=== PATIENT | male | born 1975 | race Hispanic/Latino ===

== ENCOUNTER 2017-12-17 02:51 | Emergency (ER) | payer BC, OTHER ==
[2017-12-17] MEDS ORDERED: SODIUM CHLORIDE 0.9% 1000ML 1,000 ML IV ONE (03:02)
[2017-12-17 03:13] LABS: BASOPHILS % (AUTO) 0.8 % (0.0-5.0); EOSINOPHILS % (AUTO) 3.4 % (0.0-8.0); HEMATOCRIT 47.1 % (42-54); MEAN CORPUSCULAR HEMOGLOBIN 29.2 pg (27.0-33.0); MEAN CORPUSCULAR HGB CONC 35.1 g/dL (32.0-36.0); MEAN CORPUSCULAR VOLUME 83.3 fL (79-99); MONOCYTES % (AUTO) 7.6 % (3.0-13.0); NEUTROPHILS % (AUTO) 65.2 % (40.0-77.0); NUCLEATED RED BLOOD CELLS 0.1 % (0.0-0.19); PLATELET COUNT (AUTO) 203 K/uL (130-400); RED BLOOD CELL COUNT(AUTO) 5.66 MIL/uL (4.50-6.20); RED CELL DISTRIBUTION WIDTH 12.6 % (11.0-15.5); WHITE BLOOD COUNT (AUTO) 9.9 K/uL (4.8-10.8)
[2017-12-17 03:25] LABS: BILIRUBIN,TOTAL 0.3 mg/dL (0.2-1.0); CREATININE 0.9 mg/dL (0.5-1.5); POTASSIUM 3.9 mmol/L (3.5-5.1); TOTAL PROTEIN, SERUM 8.4 g/dL (6.0-8.3)
[2017-12-17] MEDS ORDERED: LIDOCAINE HCL 2% VISCOUS 15 ML UDCUP ONE (03:53)
[2017-12-17] MEDS ORDERED: MAG HYDROX/AL HYDROX/SIMETH ES 30 ML SUSP UDCUP ONE (03:53)
[2017-12-17] MEDS ORDERED: ACETAMINOPHEN-CODEINE ELIXIR 5 ML UDCUP ONE (03:54)
== END 2017-12-17 04:13 | disposition home or self-care (01) ==
LOC: EDH 02:51
DX: T67.5XXA Heat exhaustion, unspecified, initial encounter (principal); K21.9 Gastro-esophageal reflux disease without esophagitis; K29.70 Gastritis, unspecified, without bleeding; E11.9 Type 2 diabetes mellitus without complications; I10 Essential (primary) hypertension; Z88.0 Allergy status to penicillin; Z79.4 Long term (current) use of insulin; X58.XXXA Exposure to other specified factors, initial encounter; Y93.89 Activity, other specified; Y92.89 Other specified places as the place of occurrence of the external cause; Y99.8 Other external cause status
CPT/HCPCS: 36415; 80053; 84484; 85025; 93005; 96360; 99285; J7030

== ENCOUNTER 2024-04-05 16:20 | Inpatient (IN) | payer OTHER ==
[~2024-04-05] VITALS: Ht 160 cm; Wt 98.0 kg
[2024-04-05] MEDS: LABETALOL 20MG SYG IV ONE (16:49)
[2024-04-05] MEDS: ATORVASTATIN 40 MG TABLET PO ONE (16:50)
[2024-04-05] MEDS: NITROGLYCERIN 0.4 MG SL TAB SL PRN (16:50)
[2024-04-05] MEDS: ASPIRIN 325MG TAB PO ONE (16:50)
[2024-04-05 17:04] LABS: BASOPHILS # (AUTO) 0.04 K/uL (0.00-0.20); BASOPHILS % (AUTO) 0.7 % (0.0-5.0); EOSINOPHILS # (AUTO) 0.51 K/uL (0.00-0.70); EOSINOPHILS % (AUTO) 8.8 % (0.0-8.0); HEMATOCRIT 32.5 % (42-54); IMMATURE GRANULOCYTE ABSOLUTE 0.02 K/uL (0-1); LYMPHOCYTES % (AUTO) 17.6 % (21.0-51.0); MEAN CORPUSCULAR HEMOGLOBIN 28.3 pg (27.0-33.0); MEAN CORPUSCULAR HGB CONC 34.5 g/dL (32.0-36.0); MEAN CORPUSCULAR VOLUME 82.1 fL (79-99); MONOCYTES # (AUTO) 0.4 K/uL (0.1-1.0); MONOCYTES % (AUTO) 6.4 % (3.0-13.0); NEUTROPHILS # (AUTO) 3.8 K/uL (1.8-7.7); NEUTROPHILS % (AUTO) 66.2 % (40.0-77.0); PLATELET COUNT (AUTO) 254 K/uL (130-400); RED BLOOD CELL COUNT(AUTO) 3.96 MIL/uL (4.50-6.20); RED CELL DISTRIBUTION WIDTH 13.1 % (11.0-15.5); WHITE BLOOD COUNT (AUTO) 5.8 K/uL (4.8-10.8)
[2024-04-05 17:12] LABS: CREATININE 3.7 mg/dL (0.5-1.3)
[2024-04-05 17:17] LABS: INR <= 0.93 (0.85-1.15)
[2024-04-05 17:18] LABS: PARTIAL THROMBOPLASTIN TIME 25.9 SEC (26.3-35.5)
[2024-04-05 19:28] LABS: AMPHET/METH SCREEN,URINE NEGATIVE (NEGATIVE); BARBITURATE SCREEN, URINE NEGATIVE (NEGATIVE); BENZODIAZEPINES SCREEN,URINE NEGATIVE (NEGATIVE); CANNABINOID SCREEN,URINE NEGATIVE (NEGATIVE); COCAINE SCREEN,URINE NEGATIVE (NEGATIVE); OPIATE SCREEN,URINE NEGATIVE (NEGATIVE); PHENCYCLIDINE SCREEN,URINE NEGATIVE (NEGATIVE)
[2024-04-05] MEDS: NITROGLYCERIN 50MG/D5W 250ML 250 BOT IV SCH (19:55)
[2024-04-05] MEDS ORDERED: GLUCAGON 1MG KIT 1 MG ML IM PRN (20:00)
[2024-04-05] MEDS ORDERED: NITROGLYCERIN 0.4 MG SL TAB SL PRN (20:00)
[2024-04-05] MEDS ORDERED: DEXTROSE 50%-WATER 50 ML DISP.SYRIN IV PRN (20:00)
[2024-04-05] MEDS: LABETALOL 20MG SYG IV PRN (20:35)
[2024-04-05] MEDS: MORPHINE 2 MG SYG IV PRN (20:47)
[2024-04-05] MEDS: HEPARIN 5,000 UNIT VIAL SQ SCH (20:47)
[2024-04-05] MEDS: 0.9%NACL 1000ML 1,000 ML IV SCH (21:01)
[2024-04-05] MEDS: FAMOTIDINE 20MG TAB PO SCH (21:02)
[2024-04-05] MEDS: INSULIN HUMULIN R 100 UNIT/ML 3ML SQ SCH (21:10)
[2024-04-05] MEDS: HYDRALAZINE 20MG/ML VIAL IV PRN (22:30)
[2024-04-05] MEDS: GABAPENTIN 300 MG CAPSULE PO SCH (23:45)
[2024-04-06] VITALS (8 sets, daily range): BP systolic 136–149; BP diastolic 77–93; PULSE 92–100; RESP 18; O2SAT 98–99
[2024-04-06 03:48] LABS: BASOPHILS # (AUTO) 0.03 K/uL (0.00-0.20); BASOPHILS % (AUTO) 0.4 % (0.0-5.0); EOSINOPHILS # (AUTO) 0.52 K/uL (0.00-0.70); EOSINOPHILS % (AUTO) 6.3 % (0.0-8.0); HEMATOCRIT 32.7 % (42-54); IMMATURE GRANULOCYTE ABSOLUTE 0.02 K/uL (0-1); LYMPHOCYTES # (AUTO) 1.3 K/uL (1.0-4.8); MEAN CORPUSCULAR HEMOGLOBIN 27.8 pg (27.0-33.0); MEAN CORPUSCULAR VOLUME 84.3 fL (79-99); MONOCYTES # (AUTO) 0.6 K/uL (0.1-1.0); MONOCYTES % (AUTO) 6.7 % (3.0-13.0); NEUTROPHILS # (AUTO) 5.9 K/uL (1.8-7.7); NEUTROPHILS % (AUTO) 70.4 % (40.0-77.0); PLATELET COUNT (AUTO) 269 K/uL (130-400); RED BLOOD CELL COUNT(AUTO) 3.88 MIL/uL (4.50-6.20); RED CELL DISTRIBUTION WIDTH 13.2 % (11.0-15.5); WHITE BLOOD COUNT (AUTO) 8.3 K/uL (4.8-10.8)
[2024-04-06 04:10] LABS: ALBUMIN 2.7 g/dL (3.5-5.0); BILIRUBIN,TOTAL 0.2 mg/dL (0.2-1.0); CREATININE 3.9 mg/dL (0.5-1.3); MAGNESIUM 1.4 mg/dL (1.80-2.40); POTASSIUM 4.8 mmol/L (3.5-5.1); THYROID STIMULATING HORMONE 3.35 uIU/mL (0.36-3.74); TOTAL PROTEIN, SERUM 6.5 g/dL (6.0-8.3)
[2024-04-06 05:07] LABS: ERYTHROCYTE SEDIMENTATION RATE 75 MM/HR (0-15)
[2024-04-06] MEDS ORDERED: GABA300C PO (05:16)
[2024-04-06] MEDS ORDERED: AEC81 PO (05:16)
[2024-04-06] MEDS ORDERED: METO-408 PO (05:16)
[2024-04-06] MEDS ORDERED: OLME40TA18 PO (05:16)
[2024-04-06] MEDS: MAGNESIUM OXIDE 400 MG TABLET PO SCH (05:39)
[2024-04-06] MEDS ORDERED: INSU3INS5 SQ ×2 (06:16→06:17)
[2024-04-06] MEDS ORDERED: NIFEDIPINE 10 MG CAP PO SCH (09:00)
[2024-04-06] MEDS: NIFEDIPINE ER 30 MG TAB PO SCH (09:31)
[2024-04-06] MEDS: ASPIRIN 81 MG EC TAB PO SCH (09:31)
[2024-04-06] MEDS: CARVEDILOL 6.25 MG TABLET PO SCH (09:31)
[2024-04-06] MEDS: INSULIN HUMULIN R 100 UNIT/ML 3ML SQ SCH (17:39)
[2024-04-06] MEDS: GABAPENTIN 300 MG CAPSULE PO SCH (20:20)
[2024-04-06] MEDS: ATORVASTATIN 40 MG TABLET PO SCH (21:06)
[2024-04-06] MEDS: INSULIN GLARGINE 100 UNITS/ML 10 ML VIAL SQ SCH (21:06)
[2024-04-07] VITALS (8 sets, daily range): BP systolic 131–153; BP diastolic 72–89; PULSE 82–98; RESP 18–20; O2SAT 98
[2024-04-07 03:32] LABS: BASOPHILS # (AUTO) 0.04 K/uL (0.00-0.20); BASOPHILS % (AUTO) 0.7 % (0.0-5.0); EOSINOPHILS # (AUTO) 0.45 K/uL (0.00-0.70); EOSINOPHILS % (AUTO) 8.2 % (0.0-8.0); HEMATOCRIT 29.6 % (42-54); IMMATURE GRANULOCYTE ABSOLUTE 0.03 K/uL (0-1); LYMPHOCYTES # (AUTO) 1.3 K/uL (1.0-4.8); LYMPHOCYTES % (AUTO) 23.2 % (21.0-51.0); MEAN CORPUSCULAR HEMOGLOBIN 28.3 pg (27.0-33.0); MEAN CORPUSCULAR HGB CONC 33.1 g/dL (32.0-36.0); MEAN CORPUSCULAR VOLUME 85.5 fL (79-99); MONOCYTES # (AUTO) 0.5 K/uL (0.1-1.0); MONOCYTES % (AUTO) 9.3 % (3.0-13.0); NEUTROPHILS # (AUTO) 3.2 K/uL (1.8-7.7); NEUTROPHILS % (AUTO) 58.1 % (40.0-77.0); PLATELET COUNT (AUTO) 239 K/uL (130-400); RED BLOOD CELL COUNT(AUTO) 3.46 MIL/uL (4.50-6.20); RED CELL DISTRIBUTION WIDTH 13.2 % (11.0-15.5); WHITE BLOOD COUNT (AUTO) 5.5 K/uL (4.8-10.8)
[2024-04-07 03:49] LABS: MAGNESIUM 1.5 mg/dL (1.80-2.40); PHOSPHORUS 4.6 mg/dL (2.5-4.9); POTASSIUM 4.5 mmol/L (3.5-5.1)
[2024-04-07] MEDS ORDERED: METOPROLOL SUCCINATE 25 MG TAB.SR.24H PO SCH (09:00)
[2024-04-07] MEDS: MAGNESIUM 2GM PREMIX 50ML 50 ML IV PRN (11:07)
[2024-04-07] MEDS: REGADENOSON 0.4 MG/5 ML PF SYG IVP SCH (16:31)
[2024-04-08 00:04] VITALS: BP 151/94; PULSE 104; RESP 20
[2024-04-08 03:27] LABS: BASOPHILS # (AUTO) 0.03 K/uL (0.00-0.20); BASOPHILS % (AUTO) 0.6 % (0.0-5.0); EOSINOPHILS % (AUTO) 7.4 % (0.0-8.0); HEMATOCRIT 28.3 % (42-54); IMMATURE GRANULOCYTE ABSOLUTE 0.02 K/uL (0-1); LYMPHOCYTES # (AUTO) 1.4 K/uL (1.0-4.8); LYMPHOCYTES % (AUTO) 25.4 % (21.0-51.0); MEAN CORPUSCULAR HEMOGLOBIN 28.1 pg (27.0-33.0); MEAN CORPUSCULAR HGB CONC 33.9 g/dL (32.0-36.0); MEAN CORPUSCULAR VOLUME 82.7 fL (79-99); MONOCYTES # (AUTO) 0.4 K/uL (0.1-1.0); MONOCYTES % (AUTO) 7.5 % (3.0-13.0); NEUTROPHILS # (AUTO) 3.2 K/uL (1.8-7.7); NEUTROPHILS % (AUTO) 58.7 % (40.0-77.0); PLATELET COUNT (AUTO) 235 K/uL (130-400); RED BLOOD CELL COUNT(AUTO) 3.42 MIL/uL (4.50-6.20); RED CELL DISTRIBUTION WIDTH 12.9 % (11.0-15.5); WHITE BLOOD COUNT (AUTO) 5.4 K/uL (4.8-10.8)
[2024-04-08 03:45] LABS: % IRON SATURATION 32.5 % (30-44)
[2024-04-08 04:04] LABS: ALBUMIN 2.4 g/dL (3.5-5.0); BILIRUBIN,TOTAL 0.2 mg/dL (0.2-1.0); MAGNESIUM 1.8 mg/dL (1.80-2.40); POTASSIUM 4.3 mmol/L (3.5-5.1); TOTAL PROTEIN, SERUM 5.8 g/dL (6.0-8.3); URIC ACID 7.5 mg/dL (2.6-7.2)
[2024-04-08 04:23] VITALS: BP 148/83; PULSE 90; RESP 20
[2024-04-08 07:35] VITALS: O2SAT 98
[2024-04-08 08:34] VITALS: BP 145/56; PULSE 87; RESP 18
[2024-04-08 12:37] VITALS: BP 135/79; PULSE 87; RESP 18
[2024-04-08] MEDS: ISOSORBIDE MONO 30MG SR TAB PO ONE (14:57)
[2024-04-08] MEDS ORDERED: ATOR40TA69 PO (15:10)
[2024-04-08] MEDS ORDERED: NIFE-40 PO (15:10)
[2024-04-08] MEDS ORDERED: CARV6.2579 PO (15:10)
[2024-04-08] MEDS ORDERED: Isosorbide Mono 30MG Sr Tab PO (15:10)
[2024-04-08] MEDS ORDERED: ISOS30TA92 PO (15:11)
[2024-04-08] MEDS ORDERED: NITR0.4T50 SL (15:11)
[2024-04-09] MEDS ORDERED: ISOSORBIDE MONO 30MG SR TAB PO SCH (09:00)
== END 2024-04-08 16:40 | disposition home or self-care (01) | DRG 305 ==
LOC: EDH 16:20 → EDHIP 19:36 → 2DH 04-06 02:26
PROVIDERS: ADMIT Internal Medicine; ATTEND Internal Medicine
PROC: 4A02XM4 Measurement of Cardiac Total Activity, External Approach (ICD-10-PCS; principal; 2024-04-06)
PROC: 3E033HZ Introduction of Radioactive Substance into Peripheral Vein, Percutaneous Approach (ICD-10-PCS; 2024-04-06)
DX: I16.1 Hypertensive emergency (principal); I25.110 Atherosclerotic heart disease of native coronary artery with unstable angina pectoris; N17.9 Acute kidney failure, unspecified; N18.5 Chronic kidney disease, stage 5; I13.11 Hypertensive heart and chronic kidney disease without heart failure, with stage 5 chronic kidney disease, or end stage renal disease; D64.9 Anemia, unspecified; I95.9 Hypotension, unspecified; E11.65 Type 2 diabetes mellitus with hyperglycemia; E11.22 Type 2 diabetes mellitus with diabetic chronic kidney disease; E66.01 Morbid (severe) obesity due to excess calories; Z79.82 Long term (current) use of aspirin; Z79.899 Other long term (current) drug therapy; Z68.38 Body mass index [BMI] 38.0-38.9, adult
CPT/HCPCS: 36415; 71045; 76770; 78452; 80048; 80053; 80061; 80305; 82550; 82728; 82948; 83036; 83540; 83550; 83735; 83880; 84100; 84443; 84484; 84550; 85025; 85610; 85651; 85730; 93005; 93017; 93306; 96374; A9500; G0378; J0360; J1644; J1815; J2270; J2785; J3475

== ENCOUNTER 2024-09-21 16:58 | Inpatient (IN) | payer OTHER ==
[~2024-09-21] VITALS: Ht 160 cm; Wt 100.4 kg
[~2024-09-21 16:58] MED LIST: AEC81 PO; ATOR40TA69 PO; CARV6.2579 PO; GABA300C PO; INSU3INS5 SQ; ISOS30TA92 PO; Isosorbide Mono 30MG Sr Tab PO; NIFE-40 PO; NITR0.4T50 SL; OLME40TA18 PO
--- NOTE | 2024-09-21 17:28 | ERN ---
ED Note History of Present Illness Stated Complaint: VOMITTING,COUGHING,CHEST PAINS Chief Complaint: Congestion Time Seen by MD: 17:24 Time Seen by Midlevel: 17:25 Dictation: Mr. Pacheco is a 49-year-old gentleman with history of type 2 diabetes, hypert ension, hyperlipidemia, CKD, and obesity who presented to the emergency department this evening for evaluation of cough. He reports 5 days of fatigue, general weakness, cough, and anorexia. Over the past 48 hours symptoms have worsened with chest pain with cough, hemoptysis, shortness of breath, and fever. He states he has not been monitoring his blood sugars because he is not eating. He denies having palpitations, edema, abdominal pain, nausea, vomiting, diarrhea, dysuria, headache, or dizziness. PCP: Dr. Arauz in [facility]- Dr. Gonzales Allergies: Coded Allergies: No Known Allergies (Unverified Allergy, Unknown, 03/27/22) Home Meds Active Scripts Nitroglycerin (Nitroglycerin) 0.4 Mg Tab.subl, 0.4 MG SL [id number] PRN for chest pain, #30 TAB.SL 1 Refill Prov:SHANNAN BALTAZAR MD 04/08/24 Isosorbide Mononitrate (Isosorbide Mononitrate ER) 30 Mg Tab.er.24h, 30 MG PO DAILY for 30 Days, #30 TAB 1 Refill Prov:SHANNAN BALTAZAR MD 04/08/24 Nifedipine (Nifedipine ER) 30 Mg Tab.er.24, 60 MG PO DAILY for 30 Days, #30 TAB 1 Refill Prov:SHANNAN BALTAZAR MD 04/08/24 [Isosorbide Barber 30MG Sr Tab] 30 MG TAB.ER.24H No Conflict Check, 30 MG PO DAILY for 30 Days, #30 1 Refill Prov:SHANNAN BALTAZAR MD 04/08/24 Carvedilol (Coreg) 6.25 Mg Tablet, 6.25 MG PO BID for 30 Days, #60 TAB 1 Refill Prov:SHANNAN BALTAZAR MD 04/08/24 Atorvastatin Calcium (LIPITOR) 40 Mg Tablet, 40 MG PO HS for 30 Days, #30 TAB 1 Refill Prov:SHANNAN BALTAZAR MD 04/08/24 Reported Medications Insuln Asp Prt/Insulin Aspart (Novolog Mix 70-30 Flexpen Syrn) 100 Unit/Ml (70- 30) Insuln.pen, 30 UNITS SQ ACDINNER, SYRINGE 04/06/24 Insuln Asp Prt/Insulin Aspart (Novolog Mix 70-30 Flexpen Syrn) 100 Unit/Ml (70- 30) Insuln.pen, 60 UNITS SQ ACBKFST, SYRINGE 04/06/24 Aspirin (ASPIRIN 81 MG ECTAB) 81 Mg Ectab, 81 MG PO HS, TAB.EC 04/06/24 Gabapentin (Neurontin) 300 Mg Capsule, 300 MG PO TID, CAP 04/06/24 Olmesartan Medoxomil (Olmesartan Medoxomil) 40 Mg Tablet, 40 MG PO DAILY, TAB 04/06/24 Past Medical History Past Medical History: Diabetes-Type II, High Cholesterol, Hypertension, Renal Disese Surgical History: Other (Eye surgery) PSYCH History: no pertinent psych hx Family History: CAD, DM Social History: Negative, Lives with family RN Note Reviewed/Agreed w/PFSH: Yes Review of System Dictation REVIEW OF SYSTEMS: CONSTITUTIONAL: Patient denies sweats and weight changes. Reports fever, chills, fatigue, general weakness EYES: Patient denies any visual symptoms. EARS, NOSE, AND THROAT: No difficulties with hearing. No symptoms of rhinitis or sore throat. CARDIOVASCULAR: Patient denies chest pains, palpitations, orthopnea and paroxysmal nocturnal dyspnea. RESPIRATORY: Reports congestion, painful cough, and blood-tinged sputum. Reports shortness of breath GI: No nausea, vomiting, diarrhea, constipation, abdominal pain, hematochezia or melena. Reports very poor appetite : No urinary hesitancy or dribbling. No nocturia or urinary frequency. No abnormal urethral discharge. MUSCULOSKELETAL: Reports body aches NEUROLOGIC: No chronic headaches, no seizures. Patient denies numbness, tingling or weakness. PSYCHIATRIC: Patient denies problems with mood disturbance. No problems with anxiety. ENDOCRINE: No excessive urination or excessive thirst. States he has not been monitoring his blood glucose readings because he is not eating DERMATOLOGIC: Patient denies any rashes or skin changes. Initial Vital Sign VS Vital Signs Date Time Temp Pulse Resp B/P (MAP) Pulse Ox O2 Delivery O2 Flow Rate FiO2 09/21/24 17:06 99.3 114 18 148/81 91 Room Air 09/21/24 18:20 0 21 Physical Exam Dictation Vital signs: Reviewed. Temp 99 Constitutional: No acute distress. Ill-appearing. Accompanied by significant other Head/Face: Normocephalic, atraumatic. Eyes: Periorbital areas with no swelling, redness, or edema. Lids and lashes are normal. Conjunctival injection is absent. Sclera anicteric. Pupils equal, round, reactive to light. ENT: Pinnas intact and no signs of trauma or erythema. Ear canals clear and no discharge. TMs no erythema. No nasal discharge or bleeding noted. Oropharynx with no exudate, redness, swelling, masses, exudates, or evidence of obstruc tion. Uvula midline. Mucous membranes moist. Neck: Trachea midline, no masses palpated, and no cervical lymphadenopathy. No swelling. Supple, full range of motion. Chest/Axilla: No crepitus, no paradoxical movement, no retractions. Left chest with tenderness upon palpation. Cardiovascular: Regular rate, regular rhythm, no murmur, no gallops. Symmetric pulses. No peripheral edema. Normotensive Respiratory: Tachypneic; respiratory rate 24. Lung sounds with crackles to left lower lobe. Room air SpO2 91%. Congested cough with blood-tinged sputum. Gastrointestinal: Inspection is normal. No distention is appreciated. Bowel sounds are normal. No mass or organomegaly . There is no tenderness. No rebound. No rigidity. No voluntary or involuntary guarding. No Romreo's sign. Neurological: Normal speech, gross motor function intact, gross sensory function intact. No focal weakness/Paresthesia. Musculoskeletal/Extremities: All extremities have full range of motion, no pain or tenderness on palpation. Symmetric pulses. Integumentary: Intact. Skin is flushed, warm and dry. Cap refill less than 3 seconds. Results (Laboratory/Radiology) Laboratory/Radiology Laboratory Tests Test 09/21/24 17:10 09/21/24 17:24 09/21/24 18:20 09/21/24 18:23 Influenza Type A Antigen Positive For Type A Influenza Type B Antigen Negative For Type B SARS-CoV-2, RNA, NAAT NEGATIVE SARS CoV-2 Group A Streptococcus Rapid negative (NEGATIVE) White Blood Count 11.0 K/uL (4.8-10.8) H Red Blood Count 3.12 MIL/uL (4.50-6.20) L Hemoglobin 9.0 g/dL (14.0-18.0) L Hematocrit 27.0 % (42-54) L Mean Corpuscular Volume 86.5 fL (79-99) Mean Corpuscular Hemoglobin 28.8 pg (27.0-33.0) Mean Corpuscular Hemoglobin Concent 33.3 g/dL (32.0-36.0) Red Cell Distribution Width 13.2 % (11.0-15.5) Platelet Count 238 K/uL (130-400) Mean Platelet Volume 11.0 fL (7.5-10.5) H Immature Granulocyte % (Auto) 0.4 % (0-1) Neutrophils (%) (Auto) 88.0 % (40.0-77.0) H Lymphocytes (%) (Auto) 6.0 % (21.0-51.0) L Monocytes (%) (Auto) 5.3 % (3.0-13.0) Eosinophils (%) (Auto) 0.0 % (0.0-8.0) Basophils (%) (Auto) 0.3 % (0.0-5.0) Neutrophils # (Auto) 9.6 K/uL (1.8-7.7) H Lymphocytes # (Auto) 0.7 K/uL (1.0-4.8) L Monocytes # (Auto) 0.6 K/uL (0.1-1.0) Eosinophils # (Auto) 0.00 K/uL (0.00-0.70) Basophils # (Auto) 0.03 K/uL (0.00-0.20) Absolute Immature Granulocyte (auto 0.04 K/uL (0-1) Nucleated Red Blood Cells 0.0 % (0.0-0.19) White Cell Morphology Comment See comments Sodium Level 129 mmol/L (136-145) L Potassium Level 5.9 mmol/L (3.5-5.1) H Chloride Level 93 mmol/L (101-111) L Carbon Dioxide Level 19 mmol/L (21-32) L Blood Urea Nitrogen 88 mg/dL (7-18) *H Creatinine 8.2 mg/dL (0.5-1.3) *H Glomerular Filtration Rate Calc 7 mL/min (>90) Random Glucose 876 mg/dL (70-105) *H Lactic Acid Level 3.0 mmol/L (0.8-2.5) H 3.2 mmol/L (0.8-2.5) H Total Calcium 8.2 mg/dL (8.5-10.1) L Total Bilirubin 0.5 mg/dL (0.2-1.0) Aspartate Amino Transf (AST/SGOT) 31 U/L (10-37) Alanine Aminotransferase (ALT/SGPT) 23 U/L (12-78) Alkaline Phosphatase 85 U/L (50-136) Troponin I High Sensitivity 5531 ng/L (4-75) *H Total Protein 6.8 g/dL (6.0-8.3) Albumin 2.1 g/dL (3.5-5.0) L Whole Blood Glucose > 600 MG/DL (70-110) *H Bedside Glucose Comment Notified Nurse Activated Partial Thromboplast Time 31.0 SEC (26.3-35.5) Test 09/21/24 18:28 09/21/24 19:16 09/21/24 20:36 09/21/24 20:57 White Blood Count 11.2 K/uL (4.8-10.8) H Red Blood Count 3.16 MIL/uL (4.50-6.20) L Hemoglobin 9.0 g/dL (14.0-18.0) L Hematocrit 27.3 % (42-54) L Mean Corpuscular Volume 86.4 fL (79-99) Mean Corpuscular Hemoglobin 28.5 pg (27.0-33.0) Mean Corpuscular Hemoglobin Concent 33.0 g/dL (32.0-36.0) Red Cell Distribution Width 13.2 % (11.0-15.5) Platelet Count 230 K/uL (130-400) Mean Platelet Volume 11.3 fL (7.5-10.5) H Immature Granulocyte % (Auto) 0.4 % (0-1) Neutrophils (%) (Auto) 88.1 % (40.0-77.0) H Lymphocytes (%) (Auto) 6.3 % (21.0-51.0) L Monocytes (%) (Auto) 4.9 % (3.0-13.0) Eosinophils (%) (Auto) 0.0 % (0.0-8.0) Basophils (%) (Auto) 0.3 % (0.0-5.0) Neutrophils # (Auto) 9.8 K/uL (1.8-7.7) H Lymphocytes # (Auto) 0.7 K/uL (1.0-4.8) L Monocytes # (Auto) 0.6 K/uL (0.1-1.0) Eosinophils # (Auto) 0.00 K/uL (0.00-0.70) Basophils # (Auto) 0.03 K/uL (0.00-0.20) Absolute Immature Granulocyte (auto 0.04 K/uL (0-1) Nucleated Red Blood Cells 0.0 % (0.0-0.19) Blood Gas Specimen Type Arterial Arterial Blood pH 7.325 (7.350-7.450) Arterial Blood Partial Pressure CO2 26 mmHg (35-48) L Arterial Blood Partial Pressure O2 49.6 mmHg (83.0-108.0) Arterial Blood HCO3 13.4 mmol/L (21.0-28.0) L Arterial Blood Oxygen Saturation 80.3 % (94.0-98.0) L Arterial Blood Base Excess -11.3 mmol/L (-2.0-3.0) L Hemoglobin (Blood Gas) 9.1 g/dL (13.5-17.5) L Sodium (Blood Gas) 132 MMOL/L (136-145) L Bedside Potassium (Blood Gas) 5.7 MMOL/L (3.4-4.5) H Bedside Chloride (Blood Gas) 101 MMOL/L (98-107) Bedside Glucose (Blood Gas) MG/DL (65-95) Bedside Ionized Calcium (Blood Gas) 1.08 MMOL/L (1.15-1.33) L Bedside Lactic Acid (Blood Gas) 2.21 MMOL/L (0.36-0.75) H Blood Gas Temperature 37.0 CELSIUS (35.5-37.0) Blood Gas Vent Mode RA (ROOM AIR) FiO2 21.0 % Blood Gas Specimen Comment LR RN Whole Blood Glucose > 600 MG/DL (70-110) *H Sodium Level 131 mmol/L (136-145) L Potassium Level 5.7 mmol/L (3.5-5.1) H Chloride Level 96 mmol/L (101-111) L Carbon Dioxide Level 22 mmol/L (21-32) Blood Urea Nitrogen 87 mg/dL (7-18) *H Creatinine 7.8 mg/dL (0.5-1.3) H Glomerular Filtration Rate Calc 8 mL/min (>90) Random Glucose 755 mg/dL (70-105) *H Whole Blood Ketones Quantitative 1.2 mmol/L (0.0-0.6) H Total Calcium 8.0 mg/dL (8.5-10.1) L Magnesium Level 1.70 mg/dL (1.80-2.40) L Troponin I High Sensitivity 5716 ng/L (4-75) *H Test 09/21/24 22:06 09/21/24 22:38 09/21/24 22:55 09/21/24 23:13 Whole Blood Glucose > 600 MG/DL (70-110) *H 582 MG/DL (70-110) *H Bedside Glucose Comment Notified Nurse Lactic Acid Level 2.8 mmol/L (0.8-2.5) H Sodium Level 133 mmol/L (136-145) L Potassium Level 4.8 mmol/L (3.5-5.1) Chloride Level 97 mmol/L (101-111) L Carbon Dioxide Level 21 mmol/L (21-32) Blood Urea Nitrogen 87 mg/dL (7-18) *H Creatinine 8.1 mg/dL (0.5-1.3) *H Glomerular Filtration Rate Calc 8 mL/min (>90) Random Glucose 689 mg/dL (70-105) *H Total Calcium 8.0 mg/dL (8.5-10.1) L Magnesium Level 1.70 mg/dL (1.80-2.40) L Serum Alcohol 4 mg/dL (0-10) Test 09/22/24 00:05 09/22/24 00:26 09/22/24 00:48 09/22/24 00:59 Whole Blood Glucose 456 MG/DL (70-110) *H 355 MG/DL (70-110) H Blood Gas Specimen Type Arterial Arterial Blood pH 7.368 (7.350-7.450) Arterial Blood Partial Pressure CO2 28 mmHg (35-48) L Arterial Blood Partial Pressure O2 74.2 mmHg (83.0-108.0) L Arterial Blood HCO3 15.6 mmol/L (21.0-28.0) L Arterial Blood Oxygen Saturation 93.4 % (94.0-98.0) L Arterial Blood Base Excess -8.6 mmol/L (-2.0-3.0) L Hemoglobin (Blood Gas) 9.8 g/dL (13.5-17.5) L Sodium (Blood Gas) 137 MMOL/L (136-145) Bedside Potassium (Blood Gas) 5.0 MMOL/L (3.4-4.5) H Bedside Chloride (Blood Gas) 105 MMOL/L (98-107) Bedside Glucose (Blood Gas) 471 MG/DL (65-95) *H Bedside Ionized Calcium (Blood Gas) 1.07 MMOL/L (1.15-1.33) L Bedside Lactic Acid (Blood Gas) 3.68 MMOL/L (0.36-0.75) *H Blood Gas Temperature 37.0 CELSIUS (35.5-37.0) Blood Gas Flow-by 15.00 L/min (0.00-15.00) Blood Gas Vent Mode VENTI (ROOM AIR) FiO2 50.0 % Blood Gas Specimen Comment LR JASE RN Prothrombin Time 11.7 SEC (9.6-11.6) H Prothromb Time International Ratio 1.05 (0.85-1.15) Activated Partial Thromboplast Time 104.5 SEC (26.3-35.5) Sodium Level 135 mmol/L (136-145) L Potassium Level 5.0 mmol/L (3.5-5.1) Chloride Level 100 mmol/L (101-111) L Carbon Dioxide Level 19 mmol/L (21-32) L Blood Urea Nitrogen 89 mg/dL (7-18) *H Creatinine 8.0 mg/dL (0.5-1.3) *H Glomerular Filtration Rate Calc 8 mL/min (>90) Random Glucose 472 mg/dL (70-105) *H Hemoglobin A1c 13.8 % (4.0-6.0) H Estimated Average Glucose (eAG) 349 mg/dL (70-126) H Total Calcium 8.2 mg/dL (8.5-10.1) L Troponin I High Sensitivity 8278 ng/L (4-75) *H Test 09/22/24 01:55 09/22/24 03:03 09/22/24 04:00 09/22/24 04:03 Whole Blood Glucose 387 MG/DL (70-110) H 340 MG/DL (70-110) H 339 MG/DL (70-110) H White Blood Count 9.9 K/uL (4.8-10.8) Red Blood Count 2.91 MIL/uL (4.50-6.20) L Hemoglobin 8.3 g/dL (14.0-18.0) L Hematocrit 24.4 % (42-54) L Mean Corpuscular Volume 83.8 fL (79-99) Mean Corpuscular Hemoglobin 28.5 pg (27.0-33.0) Mean Corpuscular Hemoglobin Concent 34.0 g/dL (32.0-36.0) Red Cell Distribution Width 13.2 % (11.0-15.5) Platelet Count 248 K/uL (130-400) Mean Platelet Volume 11.2 fL (7.5-10.5) H Immature Granulocyte % (Auto) 0.4 % (0-1) Neutrophils (%) (Auto) 89.0 % (40.0-77.0) H Lymphocytes (%) (Auto) 5.7 % (21.0-51.0) L Monocytes (%) (Auto) 4.5 % (3.0-13.0) Eosinophils (%) (Auto) 0.1 % (0.0-8.0) Basophils (%) (Auto) 0.3 % (0.0-5.0) Neutrophils # (Auto) 8.8 K/uL (1.8-7.7) H Lymphocytes # (Auto) 0.6 K/uL (1.0-4.8) L Monocytes # (Auto) 0.5 K/uL (0.1-1.0) Eosinophils # (Auto) 0.01 K/uL (0.00-0.70) Basophils # (Auto) 0.03 K/uL (0.00-0.20) Absolute Immature Granulocyte (auto 0.04 K/uL (0-1) Nucleated Red Blood Cells 0.0 % (0.0-0.19) Procalcitonin 70.62 ng/mL (0.05-0.5) H Test 09/22/24 04:56 09/22/24 05:08 09/22/24 05:09 09/22/24 06:08 Sodium Level 136 mmol/L (136-145) Potassium Level 5.6 mmol/L (3.5-5.1) H Chloride Level 101 mmol/L (101-111) Carbon Dioxide Level 20 mmol/L (21-32) L Blood Urea Nitrogen 92 mg/dL (7-18) *H Creatinine 8.1 mg/dL (0.5-1.3) *H Glomerular Filtration Rate Calc 8 mL/min (>90) Random Glucose 377 mg/dL (70-105) H Lactic Acid Level 2.5 mmol/L (0.8-2.5) Total Calcium 8.0 mg/dL (8.5-10.1) L Magnesium Level 2.30 mg/dL (1.80-2.40) Total Bilirubin 0.4 mg/dL (0.2-1.0) Aspartate Amino Transf (AST/SGOT) 45 U/L (10-37) H Alanine Aminotransferase (ALT/SGPT) 25 U/L (12-78) Alkaline Phosphatase 73 U/L (50-136) Total Protein 6.8 g/dL (6.0-8.3) Albumin 1.8 g/dL (3.5-5.0) L Triglycerides Level 221 mg/dL (30-200) H Cholesterol Level 242 mg/dL (<200) #H LDL Cholesterol 149 mg/dL (0-99) H HDL Cholesterol 45 mg/dL (29-71) Blood Gas Specimen Type Arterial Arterial Blood pH 7.344 (7.350-7.450) Arterial Blood Partial Pressure CO2 31 mmHg (35-48) L Arterial Blood Partial Pressure O2 75.9 mmHg (83.0-108.0) L Arterial Blood HCO3 16.6 mmol/L (21.0-28.0) L Arterial Blood Oxygen Saturation 93.5 % (94.0-98.0) L Arterial Blood Base Excess -8.2 mmol/L (-2.0-3.0) L Hemoglobin (Blood Gas) 9.1 g/dL (13.5-17.5) L Sodium (Blood Gas) 137 MMOL/L (136-145) Bedside Potassium (Blood Gas) 5.0 MMOL/L (3.4-4.5) H Bedside Chloride (Blood Gas) 106 MMOL/L (98-107) Bedside Glucose (Blood Gas) 358 MG/DL (65-95) H Bedside Ionized Calcium (Blood Gas) 1.11 MMOL/L (1.15-1.33) L Bedside Lactic Acid (Blood Gas) 1.49 MMOL/L (0.36-0.75) H Blood Gas Temperature 37.0 CELSIUS (35.5-37.0) Blood Gas Flow-by 11.00 L/min (0.00-15.00) Blood Gas Vent Mode 11 OXI (ROOM AIR) FiO2 70.0 % Blood Gas Specimen Comment LR RN Whole Blood Glucose 361 MG/DL (70-110) H 350 MG/DL (70-110) H Test 09/22/24 06:55 09/22/24 07:56 09/22/24 09:04 09/22/24 09:13 Whole Blood Glucose 327 MG/DL (70-110) H 407 MG/DL (70-110) *H 364 MG/DL (70-110) H Prothrombin Time 10.9 SEC (9.6-11.6) Prothromb Time International Ratio 0.97 (0.85-1.15) Activated Partial Thromboplast Time 50.1 SEC (26.3-35.5) #H Sodium Level 137 mmol/L (136-145) Potassium Level 4.6 mmol/L (3.5-5.1) Chloride Level 103 mmol/L (101-111) Carbon Dioxide Level 20 mmol/L (21-32) L Blood Urea Nitrogen 93 mg/dL (7-18) *H Creatinine 7.8 mg/dL (0.5-1.3) H Glomerular Filtration Rate Calc 8 mL/min (>90) Random Glucose 399 mg/dL (70-105) H Lactic Acid Level 2.3 mmol/L (0.8-2.5) Total Calcium 7.6 mg/dL (8.5-10.1) L Troponin I High Sensitivity 6392 ng/L (4-75) *H Test 09/22/24 09:54 Whole Blood Glucose 336 MG/DL (70-110) H Labs Reviewed?: Yes EKG Comment: ECG 09/21/2024 time 6:08 p.m. ventricular rate 122, sinus tachycardia, probable left atrial enlargement, repol abnrm suggests ischemia, anterolateral, ST elevation, consider anterior injury. Anterior elevation over V2 V3 about 1 mm in diffuse depressions. STEMI activated at 6:18 p.m. Repeat ECG no STEMI or STEMI equivalent. 09/21/2024 time 6:34 p.m. ventricular rate 108, NJ 189, QRS D 94, QT 356. ED Course ED Course Orders Procedure Category Date Status Time Cbc With Differential LAB 09/21/24 Complete 17:09 Comprehensive LAB 09/21/24 Complete Metabolic Panel 17:09 Influenza Type A & B, LAB 09/21/24 Complete Rapid 17:09 Rapid (Group A Strep) LAB 09/21/24 Complete 17:09 Covid Rna Naat LAB 09/21/24 Complete 17:09 Chest 1vw RAD 09/21/24 Resulted 17:27 Troponin I High LAB 09/21/24 Complete Sensitivity 17:27 Lactic Acid LAB 09/21/24 Complete 17:27 12 Lead Ekg Tracing- EKG 09/21/24 Complete Technical 17:27 Saline Lock Iv CPOE 09/21/24 Transmitted 17:33 Ceftriaxone 1g Vial PHA 09/21/24 Complete (Rocephine 1g Inj) 18:00 Azithromycin 500mg+Ns PHA 09/21/24 Complete 250ml (Azithromyci 18:00 Promethazine PHA 09/21/24 Complete Hcl/Codeine 18:00 Blood Cult PEGGY 09/21/24 In Process 18:14 Lactic Acid LAB 09/21/24 Complete 18:14 Zosyn 3.375gm+Ns 50ml PHA 09/21/24 Complete (Zosyn 3.375gm+Ns 18:30 Insulin Regular, PHA 09/21/24 Complete Human 3ml (Humulin R 18:30 Metoprolol Tartrate PHA 09/21/24 Complete (Lopressor) 18:30 Initiate Heparin TJ 09/21/24 In Process Treatment Pro 18:19 Cbc With Differential LAB 09/21/24 Complete 18:19 Cbc With Differential LAB 09/22/24 Complete 04:00 Cbc With Differential LAB 09/25/24 Verified 04:00 Cbc With Differential LAB 09/28/24 Verified 04:00 Partial LAB 09/21/24 Complete Thromboplastin Time 18:19 Heparin 5,000 Unit PHA 09/21/24 In Process Vial (Heparin 5,000 U 19:30 Heparin 25,000 PHA 09/21/24 In Process Units/250ml D5w 19:30 Heparin Protocol CPOE 09/21/24 Transmitted Monitoring 18:19 0.9%Nacl 1000ml (Ns PHA 09/21/24 Complete 1000ml) 18:30 Ondansetron 4mg Inj PHA 09/21/24 Complete (Zofran 4mg Inj) 18:29 Oseltamivir Phosphate PHA 09/21/24 Complete (Tamiflu) 19:00 Arterial Blood Gas + RT 09/21/24 Transmitted 19:13 Arterial Blood Gas LAB 09/21/24 Complete Arterial + 19:16 Vital Signs(Adult CPOE 09/21/24 Transmitted Hospitalist) 19:11 Oxygen By Nc/Pulse Ox CPOE 09/21/24 Transmitted 19:11 Daily Weights CPOE 09/21/24 Transmitted 19:11 I&O Q Shift CPOE 09/21/24 Transmitted 19:11 Acetaminophen 325 Tab PHA 09/21/24 In Process (Tylenol 325mg Tab 19:30 Acetaminophen 325 Tab PHA 09/21/24 In Process (Tylenol 325mg Tab 19:30 Guaifenesin-Dm PHA 09/21/24 In Process 200/20mg 10ml 19:30 Ipratropium/Albuterol PHA 09/21/24 In Process Neb (Duoneb) 22:00 Pulse Ox(Continuous) RT 09/21/24 Transmitted 19:11 Nurse To Enter Home CPOE 09/21/24 Transmitted Medication 19:11 Admit Orders ADM 09/21/24 Transmitted 19:11 Condition: CPOE 09/21/24 Transmitted 19:11 Telemetry Monitoring CPOE 09/21/24 Transmitted 19:11 Activity: Bed Rest CPOE 09/21/24 Transmitted 19:11 Renal Nondialysis Diet DIET 09/22/24 Transmitted Breakfast Consistent Carb DIET 09/22/24 Transmitted Breakfast Apply Scds CPOE 09/21/24 Transmitted 19:11 Famotidine 20mg Tab PHA 09/21/24 Complete (Pepcid 20mg Tab) 19:30 Nitroglycerin 1gm PHA 09/21/24 In Process Oint (Nitroglycerin 1g 19:30 Zosyn 3.375gm+Ns 50ml PHA 09/21/24 In Process (Zosyn 3.375gm+Ns 21:00 0.9%Nacl 1000ml (Ns PHA 09/21/24 In Process 1000ml) 19:30 Oseltamivir Phosphate PHA 09/22/24 In Process (Tamiflu) 09:00 Doxycycline Hyclate PHA 09/21/24 In Process (Doxycycline Hyclate 21:00 Critcal Care Consult CONPHYSVC 09/21/24 Transmitted 19:11 Nephrology Consult CONPHYSVC 09/21/24 Transmitted 19:11 Cardiology Consult CONPHYSVC 09/21/24 Transmitted 19:11 Arterial Blood Gas RT 09/21/24 Transmitted 19:11 Ketone Blood LAB 09/21/24 Complete Quantitative 19:11 *Nursing CPOE 09/21/24 Transmitted Communication: 19:11 Troponin I High LAB 09/21/24 Complete Sensitivity 19:11 Troponin I High LAB 09/22/24 Complete Sensitivity 01:11 Troponin I High LAB 09/22/24 Complete Sensitivity 07:11 Hemoglobin A1c LAB 09/22/24 Complete 04:00 Lipid Panel LAB 09/22/24 Complete 04:00 Aspirin 81mg Ec Tab PHA 09/22/24 In Process (Aspirin 81mg Ec Tab 09:00 Lactic Acid LAB 09/22/24 Complete 04:00 Procalcitonin LAB 09/22/24 Complete 04:00 Comprehensive LAB 09/22/24 Complete Metabolic Panel 04:00 Ct Chest W/O Contrast CT 09/21/24 Resulted 19:24 Insulin Regular, PHA 09/21/24 In Process Human 3ml (Humulin R 20:00 Nurse Driven Del Cid TJ 09/21/24 In Process Removal Pro 19:57 Us Renal Sonogram US 09/21/24 Taken 19:57 Famotidine 20mg Vial PHA 09/22/24 In Process (Pepcid 20mg Vial) 09:00 Basic Metabolic Panel LAB 09/21/24 Complete 23:30 Magnesium LAB 09/21/24 Complete 23:30 Alprazolam 0.5mg PHA 09/21/24 Complete (Xanax 0.5mg) 22:00 Lactic Acid (Removed) LAB 09/21/24 Complete 22:27 Basic Metabolic Panel LAB 09/21/24 Complete 23:13 Magnesium LAB 09/21/24 Complete 23:13 Magnesium 2gm Premix PHA 09/22/24 Complete 50ml (Magnesium 2gm 00:00 Alcohol, Blood LAB 09/21/24 Complete 23:47 Drug Screen Urine LAB 09/21/24 In Process 23:47 Magnesium 2gm Premix PHA 09/21/24 Complete 50ml (Magnesium 2gm 23:49 Dka Prtcl:Restrict To CPOE 09/21/24 Transmitted Icu/Ccu 23:53 Dka Protcl:Dc All CPOE 09/21/24 Transmitted Meds/Feeding 23:53 Dka Protocol: Bmp Q4h CPOE 09/21/24 Transmitted Until 23:53 Basic Metabolic Panel LAB 09/21/24 Complete 23:53 Basic Metabolic Panel LAB 09/22/24 Complete 07:53 Basic Metabolic Panel LAB 09/22/24 Logged 11:53 Basic Metabolic Panel LAB 09/22/24 Logged 15:53 Basic Metabolic Panel LAB 09/22/24 Logged 19:53 Basic Metabolic Panel LAB 09/22/24 Logged 23:53 Basic Metabolic Panel LAB 09/23/24 Verified 03:53 Basic Metabolic Panel LAB 09/23/24 Verified 07:53 Basic Metabolic Panel LAB 09/23/24 Verified 11:53 Basic Metabolic Panel LAB 09/23/24 Verified 15:53 Basic Metabolic Panel LAB 09/23/24 Verified 19:53 Basic Metabolic Panel LAB 09/23/24 Verified 23:53 0.9%Nacl 1000ml (Ns PHA 09/22/24 In Process 1000ml) 00:00 D5w-1/2 Ns/20meq Kcl PHA 09/22/24 In Process (D5w-1/2 Ns/20meq K 00:00 Potassium Chloride PHA 09/22/24 In Process 20meq/10ml (Kcl 20meq 00:00 Magnesium 2gm Premix PHA 09/22/24 In Process 50ml (Magnesium 2gm 00:00 Insulin Regular, PHA 09/22/24 Complete Human 3ml (Humulin R 00:00 Mannitol 20% 250ml PHA 09/22/24 Complete Bag (Osmitrol 20% 250 00:00 Dka Protocol: Bs, Vs, CPOE 09/21/24 Transmitted Neuro 23:53 Dextrose 5 %-0.45 % PHA 09/22/24 In Process Nacl (D5 1/2ns) 00:00 Magnesium LAB 09/22/24 Complete 04:00 Respiratory Cult PEGGY 09/22/24 In Process W/Gram Stain 00:10 Arterial Blood Gas + RT 09/22/24 Transmitted 00:10 Methylprednisolone PHA 09/22/24 Complete Succ 125mg (Solu-Medr 00:30 Methylprednisolone PHA 09/22/24 In Process Succ 40mg (Solu-Medro 09:00 Dietary Cons For DIETOTHR 09/22/24 Transmitted Malnutrition 00:16 Atorvastatin 40mg PHA 09/22/24 In Process (Lipitor 40mg) 21:00 Mannitol 20% 500ml PHA 09/22/24 In Process Bag (Osmitrol 20% 500 00:30 Arterial Blood Gas LAB 09/22/24 Complete Arterial + 00:26 Mannitol 20% 500ml PHA 09/22/24 In Process Bag (Osmitrol 20% 500 00:30 Urinalysis LAB 09/22/24 Logged W/Microscopic 00:42 Npo Except For Meds CPOE 09/22/24 Transmitted 00:42 Npo Except Ice Chips CPOE 09/22/24 Transmitted & Meds 00:42 Pt And Ptt LAB 09/22/24 Complete 02:55 Pt And Ptt LAB 09/22/24 Complete 09:00 Arterial Blood Gas + RT 09/22/24 Transmitted 04:59 Arterial Blood Gas LAB 09/22/24 Complete Arterial + 05:08 Sodium Chloride 3% PHA 09/22/24 Complete Inh (Sodium Chloride 05:59 Lactic Acid (Removed) LAB 09/22/24 Complete 08:11 12 Lead Ekg Tracing- EKG 09/21/24 Complete Technical 18:34 Partial LAB 09/22/24 Logged Thromboplastin Time 13:00 Current Medications Medications (Trade) Dose Ordered Sig/[place] Route PRN Reason Start Time Stop Time Status Last Admin Dose Admin Azithromycin 250 ml @ 250 mls/hr Q24H IVPB 09/21/24 18:00 09/21/24 18:14 DC Ceftriaxone Sodium (ROCEphine 1G INJ) 1 gm ONCE ONCE IVPB 09/21/24 18:00 09/21/24 18:13 DC Insulin Human Regular (humuLIN R 100 UNIT/ML 3ML) 10 unit ONCE ONCE IV 09/21/24 18:30 09/21/24 18:31 DC 09/21/24 18:36 Metoprolol Tartrate (loprESSOR) 5 mg ONCE ONCE IV 09/21/24 18:30 09/21/24 18:31 DC 09/21/24 18:32 Ondansetron HCl (zoFRAN 4MG INJ) 4 mg STK-MED ONCE .ROUTE 09/21/24 18:29 09/21/24 18:29 DC 09/21/24 18:31 Oseltamivir Phosphate (Tamiflu) 75 mg ONCE ONCE PO 09/21/24 19:00 09/21/24 19:01 DC 09/21/24 18:45 Piperacillin Sod/ Tazobactam Sod (Zosyn 3.375gm+NS 50ml) 3.375 gm ONCE ONCE IVPB 09/21/24 18:30 09/21/24 18:31 DC 09/21/24 18:35 Promethazine HCl/ Codeine (Phenergan-Codeine Syrp) 10 ml ONCE ONCE PO 09/21/24 18:00 09/21/24 18:01 DC Sodium Chloride 1,000 ml @ 0 mls/hr ONCE ONCE IV 09/21/24 18:30 09/21/24 18:31 DC 09/21/24 18:37 Vital Signs Date Time Temp Pulse Resp B/P (MAP) Pulse Ox O2 Delivery O2 Flow Rate FiO2 09/22/24 10:03 104 24 N/Cannula Oximizer Hi LPM 7.0 09/22/24 10:03 104 24 09/22/24 08:00 98 N/C Oxymizer Hi LPM* 7 60 09/22/24 08:00 134 129/54 Nasal Cannula* 3 32 09/22/24 06:35 105 24 09/22/24 06:34 105 24 N/Cannula Oximizer Hi LPM 12.0 09/22/24 06:21 105 14 123/70 100 N/C Oxymizer Hi LPM* 11 N/A 09/22/24 05:14 108 22 130/86 98 N/C Oxymizer Hi LPM* 11 N/A 09/22/24 03:40 106 19 132/77 98 N/C Oxymizer Hi LPM* 11 N/A 09/22/24 02:03 106 18 122/68 100 N/C Oxymizer Hi LPM* 11 N/A 09/22/24 00:39 98.1 117 25 117/118 96 N/C Oxymizer Hi LPM* 11 N/A 09/22/24 00:35 115 20 N/Cannula Oximizer Hi LPM 11.0 09/22/24 00:05 117 18 Venti Mask 50 09/21/24 23:59 117 18 09/21/24 23:15 98.1 125 34 125/122 90 Venti Mask+ 15 50 09/21/24 23:02 122 28 N/Cannula Low lpm 6.0 44 09/21/24 22:24 98.1 123 28 149/77 91 Nasal Cannula* 4 36 09/21/24 21:20 98.1 111 28 135/73 91 Nasal Cannula* 4 36 09/21/24 19:39 113 28 N/Cannula Low lpm 6.0 44 09/21/24 19:36 98.1 111 29 130/68 91 Nasal Cannula* 4 36 09/21/24 19:27 98.1 108 30 130/68 91 Nasal Cannula* 4 36 09/21/24 18:32 132 160/99 09/21/24 18:20 98.6 28 20 154/83 Room Air* 0 21 09/21/24 17:06 99.3 114 18 148/81 91 Room Air HEART Score Response (Comments) Value History: Low suspicion (0) 0 EKG: Repolarization changes 1 Age: 45-65yrs (+1) 1 Risk Factors: 1-2 risk factors (+1) 1 Initial Troponin: >3x Normal Limit (+2) 2 HEART Score Risk: Mod Risk for MACE (4-6) Total 5 Medical Decision Making MDM MDM: Differential diagnosis: NSTEMI, HHS, sepsis 1815- Dr. Mclean Cardiology consult 1835- Hospitalist, accepts patient for admission Rationale: Tests considered and ordered secondary to shared decision making include: labs, ECG and radiology Risk of complication and/or morbidity or mortality of patient management: None Medications-Per medication reconciliation Need for hospitalization: Patient does meet criteria for hospitalization. Need for emergency major/minor surgery: No There are no social concerns with this patient. I independently interpreted the test that were performed, results were reviewed by me and considered findings on radiology if ordered. Medical management and examination interpretation discussions were had by me with other qualified healthcare professionals as indicated for the patient's care. I attest that I performed a sepsis focused exam including review of vital signs, cardiopulmonary exam, capillary refill evaluation, peripheral pulse evaluation and Skin exam. Spoke to real estate paralegal on-call who reviewed case with me and agrees that this is most likely secondary to demand induced ischemia, we have agreed that we will give IV Lopressor and repeat serial ECGs to check for acute elevation, in the meantime we will treat for demand induced ischemia and the underlying condition which patient is presenting as HHS with sepsis, broad-spectrum antibiotics to cover Pseudomonas and insulin IV fluids and unfractionated heparin drip ordered and patient will be admitted to ICU. Repeat ECG after IV beta halima shows improvement of morphology no STEMI or STEMI equivalent, against spoke to cardiology team who agrees with medical management in the ICU and plan for early invasive strategy but currently does not meet criteria for a STEMI. Critical Care Note Critical Time: other (Total critical care time was 33 minutes. Excluding time for procedures. Management of critically ill patient with concern for acute decompensation. Management included interpretation of laboratory values and imaging, hemodynamics, time for consultation with consultants and admitting physician.) DX & DISP Disposition: Inpatient Decision to Admit Date: Sep 21, 2024 Decision to Admit Time: 18:36 Departure Impression: Primary Impression: ACS (acute coronary syndrome) Additional Impressions: Hyperosmolar hyperglycemic state (HHS), Influenza, Acute renal failure Condition: Stable Referrals: SELF,REFERRAL (PCP) I performed the substantive portion of the visit. I have reviewed and personally made and approve the management plan that is documented in the notes by myself or the GIAN. I acknowledge full responsibility for the patient's management plan. HEBER CABRERA NP Sep 21, 2024 17:28 AGATHA MELÉNDEZ MD Sep 21, 2024 18:15
[2024-09-21 17:29] LABS: RAPID GROUP A STREP negative (NEGATIVE)
[2024-09-21 17:32] LABS: BASOPHILS # (AUTO) 0.03 K/uL (0.00-0.20); BASOPHILS % (AUTO) 0.3 % (0.0-5.0); IMMATURE GRANULOCYTE ABSOLUTE 0.04 K/uL (0-1); LYMPHOCYTES # (AUTO) 0.7 K/uL (1.0-4.8); MEAN CORPUSCULAR HEMOGLOBIN 28.8 pg (27.0-33.0); MEAN CORPUSCULAR HGB CONC 33.3 g/dL (32.0-36.0); MEAN CORPUSCULAR VOLUME 86.5 fL (79-99); MONOCYTES # (AUTO) 0.6 K/uL (0.1-1.0); MONOCYTES % (AUTO) 5.3 % (3.0-13.0); NEUTROPHILS # (AUTO) 9.6 K/uL (1.8-7.7); PLATELET COUNT (AUTO) 238 K/uL (130-400); RED BLOOD CELL COUNT(AUTO) 3.12 MIL/uL (4.50-6.20); RED CELL DISTRIBUTION WIDTH 13.2 % (11.0-15.5)
[2024-09-21 17:32] LABS: SARS-CoV-2, RNA, NAAT NEGATIVE SARS CoV-2 (NEGATIVE)
[2024-09-21 17:37] LABS: INFLUENZA TYPE B Negative For Type B (NEGATIVE)
[2024-09-21 17:50] LABS: ALBUMIN 2.1 g/dL (3.5-5.0); BILIRUBIN,TOTAL 0.5 mg/dL (0.2-1.0); POTASSIUM 5.9 mmol/L (3.5-5.1); TOTAL PROTEIN, SERUM 6.8 g/dL (6.0-8.3)
[2024-09-21] MEDS ORDERED: cefTRIAXone 1G VIAL IVPB ONE (18:00)
[2024-09-21] MEDS ORDERED: AZITHROMYCIN 500MG+NS 250ML 250 ML IVPB SCH (18:00)
[2024-09-21 18:01] LABS: CREATININE 8.2 mg/dL (0.5-1.3)
--- NOTE | 2024-09-21 18:16 | NUR ---
PER DR [facility] TO HOLD OFF ON ONLINE MARKETING ANALYST.
[2024-09-21 18:30] LABS: INFLUENZA TYPE A Positive For Type A (NEGATIVE)
[2024-09-21] MEDS: ondanSETRON 4MG INJ ONE (18:31)
[2024-09-21] MEDS: metoPROLOL tartRATE 1 MG/ML 5ML VIAL IV ONE (18:32)
[2024-09-21] MEDS: ZOSYN 3.375GM +NS 50ML IVPB ONE (18:35)
[2024-09-21 18:36] LABS: BASOPHILS # (AUTO) 0.03 K/uL (0.00-0.20); BASOPHILS % (AUTO) 0.3 % (0.0-5.0); HEMATOCRIT 27.3 % (42-54); IMMATURE GRANULOCYTE ABSOLUTE 0.04 K/uL (0-1); LYMPHOCYTES # (AUTO) 0.7 K/uL (1.0-4.8); LYMPHOCYTES % (AUTO) 6.3 % (21.0-51.0); MEAN CORPUSCULAR HEMOGLOBIN 28.5 pg (27.0-33.0); MEAN CORPUSCULAR VOLUME 86.4 fL (79-99); MONOCYTES # (AUTO) 0.6 K/uL (0.1-1.0); MONOCYTES % (AUTO) 4.9 % (3.0-13.0); NEUTROPHILS # (AUTO) 9.8 K/uL (1.8-7.7); NEUTROPHILS % (AUTO) 88.1 % (40.0-77.0); PLATELET COUNT (AUTO) 230 K/uL (130-400); RED BLOOD CELL COUNT(AUTO) 3.16 MIL/uL (4.50-6.20); RED CELL DISTRIBUTION WIDTH 13.2 % (11.0-15.5); WHITE BLOOD COUNT (AUTO) 11.2 K/uL (4.8-10.8)
[2024-09-21] MEDS: INSULIN humuLIN R 100 UNIT/ML 3ML IV ONE (18:36)
[2024-09-21] MEDS: 0.9%NACL 1000ML 1,000 ML IV ONE (18:37)
[2024-09-21] MEDS: PROMETHAZINE/CODEINE 6.25-10MG/5ML CUP PO ONE (18:44)
[2024-09-21] MEDS: OSELTAMIVIR PHOSPHATE 75 MG CAP PO ONE (18:45)
--- NOTE | 2024-09-21 19:04 | HMCIMG ---
PORTABLE CHEST RADIOGRAPH INDICATION: cough, shortness of breath COMPARISON: 04/05/2024 FINDINGS: Heart size is normal. The pulmonary vascularity and eder appear normal. Extensive coalescent/consolidative bilateral mid to lower lung opacities, right greater than left. No significant pleural effusion noted. No pneumothorax detected. IMPRESSION: Extensive bilateral mid to lower lung pneumonia, right greater than left.
[2024-09-21 19:18] LABS: ABG BASE EXCESS -11.3 mmol/L (-2.0-3.0); ABG HCO3 13.4 mmol/L (21.0-28.0); ABG OXYGEN SATURATION 80.3 % (94.0-98.0); ABG PCO2 26 mmHg (35-48); ABG PH 7.325 (7.350-7.450); CARBON MONOXIDE 0.5 % (0.5-1.5); DEVICE COMMENT LR RN; HHb 19.5; PO2, ARTERIAL BG 49.6 mmHg (83.0-108.0); VENT MODE, BG RA (ROOM AIR)
--- NOTE | 2024-09-21 19:27 | NUR ---
PT CARE ASSUMED AT THIS TIME
[2024-09-21] MEDS: FAMOTIDINE 20MG TAB PO SCH (19:30)
[2024-09-21] MEDS ORDERED: acetaMINOPHEN 325 MG TAB PO PRN (19:30)
[2024-09-21] MEDS ORDERED: HEParin 5,000 UNIT VIAL IV PRN (19:30)
[2024-09-21 19:39] VITALS: PULSE 113; RESP 28; O2SAT 92
[2024-09-21] MEDS: NITROGLYCERIN 1GM OINT 1 INCH/1GM TD SCH (19:43)
[2024-09-21] MEDS: 0.9%NACL 1000ML 1,000 ML IV SCH (19:45)
--- NOTE | 2024-09-21 19:45 | NUR ---
PER RT PT PLACED ON 6L NC AT THIS TIME
[2024-09-21] MEDS: HEParin 25,000 UNITS/250ML D5W 250 ML IV SCH (19:50)
--- NOTE | 2024-09-21 19:56 | NUR ---
SPOKE TO DUSTIN AT THIS TIME REGARDING MEDICATION CHANGE AND PRN MEDICATION
--- NOTE | 2024-09-21 20:09 | HP ---
[facility] HISTORY AND PHYSICAL Date of Service: Sep 21, 2024 Time of Service: 19:34 HISTORY OF PRESENT ILLNESS: This is a 49-year-old male with past medical history of CKD not on hemodialysis, diabetes, hypertension, hyperlipidemia and obesity who presents to the ED for complaints of cough and chest congestion which started last Sunday and getting worse on Sunday. Patient reports coughing up pinkish colored thick phlegm, loss of appetite and on Sunday started not eating unable to sleep, vomiting and having chest pain triggered by persistent coughing he said.Patient reports having soreness due to hard cough he said.Patient reports having sweeling on both lower extremities and started having shortness of breath and today he started having non bloody diarrhea. Neela was at bedside during my evaluation. Upon arrival to ER a STEMI alert was activated per ER MD and spoke to Cardiologi st bell person and as per report patient is possibly going to cathlab tomorrow and patient is going to be started on Heparin and Insulin drip. Seen and examined patient in the Er awake,alert and coherent,appears weak looking.Patient denies fever,palpitation ,dizziness ,sore throat and headache. Latest vital signs temperature 98.1, heart rate 108, respiration 30 blood pres sure 130/68 saturation 91% on 4 L nasal cannula. Labs: WBC 11.2, hemoglobin 9, hematocrit 27, platelet count 238, neutrophils 88. PH 7.32, CO2 26, PO2 49.6, bicarb 13, PO2 80 base excess -11.3. Sodium 129, potassium 5.9, chloride 93, CO2 19, BUN 88, creatinine 8.2, GFR seven glucose 876 , lactic acid 3.0-3.2, troponin 5531 albumin 2.1. Influenza A positive influenza B negative SARs COVID negative. Strep A negative. Chest x-ray result revealed extensive bilateral mid to lower lung pneumonia right greater than left. First ECG result revealed sinus tachycardia heart rate 121 probable left atrial enlargement repolarization abnormal suggest ischemia diffuse leads ST-elevation consider anterior injury. Second EKG result revealed sinus tachycardia repolarization abnormality suggest ischemia diffuse leads borderline ST elevation anterior leads heart rate 108. While in the ER patient received Tamiflu 75 mg p.o., 1 L NS bolus, Lopressor 5 mg IV, insulin 10 units IV, Zosyn IV, Zofran 4 mg IV and Phenergan codeine 10 mL p.o. we will admit patient in ICU for further medical management. REVIEW OF SYSTEMS CONSTITUTIONAL: Denies fevers, chills, or night sweats. No unintentional weight loss reported. NEUROLOGICAL: Denies headache, amaurosis fugax, motor weakness, sensory deficit, vertigo/spinning sensation, gait abnormalities, or tremors. ENT: No hearing loss, otalgia, otorrhea, rhinitis, rhinorrhea, hoarseness, or sore throat. CARDIOVASCULAR: Complaints of orthopnea shortness of breaths and chest pain Denies paroxysmal nocturnal dyspnea, palpitations, life-threatening arrhythmias, claudication. PULMONARY: Complaints of productive cough , pleuritic chest pain and shortness of breaths SLEEP: Complains of unable to sleep Denies morning headaches, daytime somnolence or napping. Denies waking from sleep. Denies knowledge of snoring. GASTROINTESTINAL: Complaints of loss of appetite, vomiting and diarrhea Denies any type of dysphagia to either liquids or solids. Denies nausea, vomiting, pyrosis, early satiety, abdominal pain, diarrhea, constipation, or changes in stool consistency or caliber. Denies coffee-ground emesis, hematemesis, hematochezia, or melanotic stools. GENITOURINARY: Denies frequency, urgency, nocturia, hematuria or incontinence (Storage/Irritative symptoms.) Low urinary stream, straining to void, urinary intermittency or hesitancy, splitting of the voiding stream, terminal dribbling. ENDOCRINOLOGIC: Denies polyuria, polydipsia, polyphagia or heat/cold intolerances. Patient reports not taking medications for diabetes because he was not eating. HEMATOLOGIC: Denies thrombophilia/previous clots, or coagulopathy/bleeding disorders. ONCOLOGIC: Denies personal history of malignancy. DERMATOLOGIC: Denies rashes or pruritus. PSYCHIATRIC: Denies any suicidal or homicidal ideation. Denies hallucinations. PAST MEDICAL HISTORY: Chronic kidney disease Diabetes type 2 Hypertension Hyperlipidemia Obesity PAST SURGICAL HISTORY: Left eye cataract surgery one month ago PAST SOCIAL HISTORY: Patient lives with . Patient denies alcohol tobacco and recreational drug use FAMILY HISTORY: Noncontributory Coded Allergies: No Known Allergies (Unverified Allergy, Unknown, 03/27/22) PHYSICAL EXAM GENERAL APPEARANCE: The patient is awake, alert, and oriented appears generally weak NEUROLOGICAL: Cranial nerves II-XII grossly intact. Motor is 5/5 in bilateral upper and lower extremities proximal to distal. No sensory deficits. HEENT: Face is symmetric. Pupils are equal and reactive. Extraocular movements are intact. NECK: Supple. No JVD. No thyromegaly. No submental, submandibular, pre- /postauricular, occipital or supraclavicular lymphadenopathy. CHEST: Normal chest expansion. No Telemetry. LUNGS: . Diminished lung sounds to bilateral lung james CARDIOVASCULAR: Tachycardic Regular. S1 and S2 normal. No appreciable rubs, murmurs or gallops. ABDOMEN: Round and firmed There is no rebound, voluntary guarding, or rigidity. : Deferred. No Del Cid. EXTREMITIES: Non-edematous and not cyanotic. No clubbing. Good capillary refill. SKIN: No skin breakdown. Vital Sign (Last 24 Hours) 09/21/24 19:27 Temp 98.1 Pulse 108 Resp 30 B/P (MAP) 130/68 Pulse Ox 91 O2 Delivery Nasal Cannula* O2 Flow Rate 4 FiO2 36 LABS: Laboratory: Test 09/21/24 19:16 09/21/24 18:28 09/21/24 18:23 09/21/24 18:20 Range/Units Blood Gas Specimen Type Arterial Arterial Blood pH 7.325 L 7.350-7.450 Arterial Blood Partial Pressure CO2 26 L 35-48 mmHg Arterial Blood Partial Pressure O2 49.6 *L 83.0-108.0 mmHg Arterial Blood HCO3 13.4 L 21.0-28.0 mmol/L Arterial Blood Oxygen Saturation 80.3 L 94.0-98.0 % Arterial Blood Base Excess -11.3 L -2.0-3.0 mmol/L Hemoglobin (Blood Gas) 9.1 L 13.5-17.5 g/dL Sodium (Blood Gas) 132 L 136-145 MMOL/L Bedside Potassium (Blood Gas) 5.7 H 3.4-4.5 MMOL/L Bedside Chloride (Blood Gas) 101 98-107 MMOL/L Bedside Ionized Calcium (Blood Gas) 1.08 L 1.15-1.33 MMOL/L Bedside Lactic Acid (Blood Gas) 2.21 H 0.36-0.75 MMOL/L Blood Gas Temperature 37.0 35.5-37.0 CELSIUS Blood Gas Vent Mode RA ROOM AIR FiO2 21.0 % Blood Gas Specimen Comment LR RN White Blood Count 11.2 H 4.8-10.8 K/uL Red Blood Count 3.16 L 4.50-6.20 MIL/uL Hemoglobin 9.0 L 14.0-18.0 g/dL Hematocrit 27.3 L 42-54 % Mean Corpuscular Volume 86.4 79-99 fL Mean Corpuscular Hemoglobin 28.5 27.0-33.0 pg Mean Corpuscular Hemoglobin Concent 33.0 32.0-36.0 g/dL Red Cell Distribution Width 13.2 11.0-15.5 % Platelet Count 230 130-400 K/uL Mean Platelet Volume 11.3 H 7.5-10.5 fL Immature Granulocyte % (Auto) 0.4 0-1 % Neutrophils (%) (Auto) 88.1 H 40.0-77.0 % Lymphocytes (%) (Auto) 6.3 L 21.0-51.0 % Monocytes (%) (Auto) 4.9 3.0-13.0 % Eosinophils (%) (Auto) 0.0 0.0-8.0 % Basophils (%) (Auto) 0.3 0.0-5.0 % Neutrophils # (Auto) 9.8 H 1.8-7.7 K/uL Lymphocytes # (Auto) 0.7 L 1.0-4.8 K/uL Monocytes # (Auto) 0.6 0.1-1.0 K/uL Eosinophils # (Auto) 0.00 0.00-0.70 K/uL Basophils # (Auto) 0.03 0.00-0.20 K/uL Absolute Immature Granulocyte (auto 0.04 0-1 K/uL Nucleated Red Blood Cells 0.0 0.0-0.19 % Activated Partial Thromboplast Time 31.0 26.3-35.5 SEC Lactic Acid Level 3.2 H 0.8-2.5 mmol/L Whole Blood Glucose > 600 *H 70-110 MG/DL Bedside Glucose Comment Notified Nurse Test 09/21/24 17:24 09/21/24 17:10 Range/Units White Cell Morphology Comment See comments Sodium Level 129 L 136-145 mmol/L Potassium Level 5.9 H 3.5-5.1 mmol/L Chloride Level 93 L 101-111 mmol/L Carbon Dioxide Level 19 L 21-32 mmol/L Blood Urea Nitrogen 88 *H 7-18 mg/dL Creatinine 8.2 *H 0.5-1.3 mg/dL Glomerular Filtration Rate Calc 7 >90 mL/min Random Glucose 876 *H 70-105 mg/dL Total Calcium 8.2 L 8.5-10.1 mg/dL Total Bilirubin 0.5 0.2-1.0 mg/dL Aspartate Amino Transf (AST/SGOT) 31 10-37 U/L Alanine Aminotransferase (ALT/SGPT) 23 12-78 U/L Alkaline Phosphatase 85 50-136 U/L Troponin I High Sensitivity 5531 *H 4-75 ng/L Total Protein 6.8 6.0-8.3 g/dL Albumin 2.1 L 3.5-5.0 g/dL Influenza Type A Antigen Positive For Type A *A NEGATIVE Influenza Type B Antigen Negative For Type B NEGATIVE SARS-CoV-2, RNA, NAAT NEGATIVE SARS CoV-2 NEGATIVE Group A Streptococcus Rapid negative NEGATIVE Current Medications Medications (Trade) Dose Ordered Sig/Sierra Route PRN Reason Start Time Stop Time Status Last Admin Dose Admin Acetaminophen (TYLenol 325MG TAB) 650 mg Q4H PRN PO MILD PAIN (1-3) 09/21/24 19:30 10/21/24 19:29 Acetaminophen (TYLenol 325MG TAB) 650 mg Q6H PRN PO TEMPERATURE GREATER THAN 101.5 09/21/24 19:30 10/21/24 19:29 Albuterol (DUOneb) 1 udvial [id number] IH 09/21/24 22:00 10/21/24 21:59 Aspirin (Aspirin 81mg Ec Tab) 81 mg DAILY PO 09/22/24 09:00 10/22/24 08:59 Azithromycin 250 ml @ 250 mls/hr Q24H IVPB 09/21/24 18:00 09/21/24 18:14 DC Doxycycline Hyclate (Doxycycline Hyclate) 100 mg BID PO 09/21/24 21:00 10/01/24 20:59 Famotidine (Pepcid 20mg Tab) 20 mg Q48H PO 09/21/24 19:30 10/21/24 19:29 UNV Guaifenesin/ Dextromethorphan (RobiTUSSin DM 200/20MG 10ML) 10 ml Q4H PRN PO COUGH 09/21/24 19:30 2/25/25 19:29 Heparin Sodium (Porcine) (HEParin 5,000 UNIT VIAL) *calculation based on ACTUAL B... AD PRN IV HEPARIN PROTOCOL 09/21/24 19:30 10/21/24 19:29 Heparin Sodium/ Dextrose 250 ml @ 0 mls/hr Q6H IV 09/21/24 19:30 10/21/24 19:29 Nitroglycerin (Nitroglycerin 1gm Oint) 0.5 inch Q8H TD 09/21/24 19:30 10/21/24 19:29 Oseltamivir Phosphate (Tamiflu) 75 mg DAILY PO 09/22/24 09:00 09/27/24 08:59 UNV Piperacillin Sod/ Tazobactam Sod 50 ml @ 12.5 mls/hr Q12H IV 09/21/24 21:00 10/01/24 20:59 Sodium Chloride 1,000 ml @ 100 mls/hr Q10H IV 09/21/24 19:30 10/21/24 19:29 DIAGNOSTICS / RADIOLOGY: [ ] ASSESSMENT: Hyperosmolar Hyperglycemic Syndrome POA NSTEMI POA Influenza bronchopneumonia with sepsis POA Acute Hypoxemic Respiratory Failure POA Acute on chronic renal failure with concern for ATN POA Metabolic acidosis POA Lactic acidosis POA CKD stage 4 POA Uncontrolled Diabetes POA Protein Calorie malnutrition POA PLAN: We will admit patient in ICU We will keep patient nothing by mouth We will start NS @ 100 ml / hr and re evaluate Start on Insulin drip using DKA protocol Continue Heparin drip per ACs protocol started by ER We will start patient on Doxycycline po and Zosyn renally dose We will continue Tamiflu 75mg po daily We will start on Aspirin 81 mg po daily We will start on Famotidine 20 mg IV daily for GI prophylaxis We will trend troponin Q6H x3 We will add prn medication for fever,pain,cough and nausea We will reconcile home meds once medlist available We will seek Cardiology consultation and follow recommendation We will seek critical care consultation We will seek Nephrology consultation We will obtain renal ultrasound We will obtain CT chest without contrast Will follow up U/a and cultures We will request labs in am Further orders to follow depending on above results Case discussed with attending physician and came up with above treatment and plan of care. ADVANCED CARE PLANNING 1. Which of the following were discussed? Hospice Care - No Therapeutic options - Yes Advance Directives - No Other discussions - 2. Discussed with who? Patient and Neela 3. Voluntary nature of this service was explained to the patient? Yes 4. Amount of time spent - _29 5. Reviewed by Physician? (if this service was performed by NPP) Yes Patient seen and examined by me. Agree with note by POLITICAL CARTOONIST SEE ADDITIONAL ORDERS PER CHART DISCUSSED WITH NURSING STAFF TERRANCE CHAN ASSOCIATE PROFESSOR OF COUNSELING Sep 21, 2024 20:09
--- NOTE | 2024-09-21 20:14 | EKG ---
[facility] Test Date: 2024-09-21 Test Time: 18:09:03 Pat Name: ADRIANA ABRAHAM Department: [facility] Room: ED 13 Gender: M Digital Business Analyst: [id number] : [id number] Requested By: HEBER CABRERA Order Number: [id number] Reading MD: Liliana Acharya Measurements Intervals [place] Rate: 121 P: 49 WA: 151 QRS: 53 QRSD: 97 T: 201 QT: 322 QTc: 457 Interpretive Statements Sinus tachycardia Probable left atrial enlargement Repol abnrm suggests ischemia, diffuse leads ST elevation, consider anterior injury Compared to ECG 04/05/2024 16:20:54 Early repolarization now present Possible ischemia now present ST (T wave) deviation now present Myocardial infarct finding now present Electronically Signed On 09-22-2024 16:08:34 TRANSPORT OPERATIONS INSPECTOR by Liliana Acharya Please click the below link to view image of tracing.
--- NOTE | 2024-09-21 20:17 | NUR ---
PT TAKEN TO CT AT THIS TIME WITH ED RN
--- NOTE | 2024-09-21 20:34 | NUR ---
PT RETURNED FROM CT WITH ED RN. PT PLACED BACK IN ROOM. PT SHOWS NO SIGNS OF DISTRESS.
--- NOTE | 2024-09-21 20:37 | NUR ---
ULTRASOUND AT BEDSIDE AT THIS TIME
--- NOTE | 2024-09-21 20:51 | HMCIMG ---
CT CHEST WITHOUT CONTRAST INDICATION: Bilateral lung pneumonia TECHNIQUE: Routine axial images using 5 mm slice thickness were acquired from the lung apices to the bases without the administration of IV contrast.Coronal and sagittal reformatted images acquired for interpretation. CT was performed with one or more of the following dose reduction techniques: Automated exposure control, adjustment of the mA and/or kV according to patient size, or use of iterative reconstruction technique. COMPARISON: None FINDINGS: The heart size is normal. Coronary arterial wall calcific plaque noted. No pericardial effusion noted. Mild calcific plaque is present along the aortic arch and thoracic aortic ibrahim without aneurysmal dilation. The trachea and airways are patent. Coalescent "ground-glass" opacities with intermixed consolidation/nodularity noted throughout the bilateral lungs in a centrilobular distribution. No axillary, hilar, or mediastinal lymphadenopathy. No pleural effusion or pneumothorax identified. Limited views of the upper abdomen appear normal. Visible osseous structures are intact. IMPRESSION: Extensive bilateral lung pneumonia. Arteriosclerotic disease as described.
[2024-09-21] MEDS: INSULIN REGULAR, HUMAN 3ML 100 UNIT in 0.9%NACL 100ML 100 ML IV SCH (21:01)
[2024-09-21 21:27] LABS: CREATININE 7.8 mg/dL (0.5-1.3); MAGNESIUM 1.7 mg/dL (1.80-2.40); POTASSIUM 5.7 mmol/L (3.5-5.1)
--- NOTE | 2024-09-21 21:35 | NUR ---
SPOKE TO PROVIDER DUSTIN AT THIS TIME REGAURDING PT REQUESTING MEDICATION FOR ANXIETY. ORDERS GIVEN AT THIS TIME.
[2024-09-21] MEDS: ALPRAZolam 0.5 MG TABLET PO ONE (21:44)
[2024-09-21] MEDS: DOXYCYCLINE HYCLATE 100 MG TABLET PO SCH (21:50)
[2024-09-21] MEDS: ZOSYN 3.375GM+NS 50ML 50 ML IV SCH (21:50)
--- NOTE | 2024-09-21 22:50 | NUR ---
PT PLACED ON VENTI MASK AT THIS TIME
[2024-09-21] MEDS: acetaMINOPHEN 325 MG TAB PO PRN (22:53)
[2024-09-21 23:02] VITALS: PULSE 122; RESP 28; O2SAT 89
--- NOTE | 2024-09-21 23:36 | NUR ---
CRITICAL CARE CONSULT PAGED AT THIS TIME
[2024-09-21 23:37] LABS: MAGNESIUM 1.7 mg/dL (1.80-2.40); POTASSIUM 4.8 mmol/L (3.5-5.1)
[2024-09-21 23:38] LABS: CREATININE 8.1 mg/dL (0.5-1.3)
[2024-09-21] MEDS: MAGNESIUM 2GM PREMIX 50ML 50 ML IV PRN (23:52)
[2024-09-21] MEDS: MAGNESIUM 2GM PREMIX 50ML 50 ML IV ONE (23:54)
[2024-09-21] MEDS: IpraTROPium/alBUTERol SULFATE 3 ML SOLUTION IH SCH (23:56)
[2024-09-21 23:59] VITALS: PULSE 117; RESP 18
[2024-09-22] VITALS (13 sets, daily range): BP systolic 128–149; BP diastolic 80–88; PULSE 104–117; RESP 18–24; TEMP 98.6; O2SAT 93–100
[2024-09-22] MEDS ORDERED: MAGNESIUM 2GM PREMIX 50ML 50 ML IV SCH
[2024-09-22] MEDS ORDERED: 0.9%NACL 1000ML 1,000 ML IV SCH
[2024-09-22] MEDS ORDERED: INSULIN REGULAR, HUMAN 3ML 100 UNIT in 0.9%NACL 100ML 100 ML IV SCH
[2024-09-22] MEDS ORDERED: D5W-1/2 NS/20MEQ KCL 1,000 ML IV SCH
[2024-09-22] MEDS ORDERED: MANNITOL 20% 250ML IV.SOLN IV SCH
[2024-09-22] MEDS ORDERED: PoTASSium chloRIDE 20MEQ/10ML 20 MEQ in 0.9%NACL 1000ML 1,000 ML IV SCH
--- NOTE | 2024-09-22 00:02 | NUR ---
RAFAEL DRUG SAFETY ASSOCIATE MADE AWARE OF CRITICAL CARE COSULT AT THIS TIME
--- NOTE | 2024-09-22 00:09 | NUR ---
CRITICAL CARE PROVIDER AT BEDSIDE AT THIS TIME
[2024-09-22 00:27] LABS: ABG BASE EXCESS -8.6 mmol/L (-2.0-3.0); ABG HCO3 15.6 mmol/L (21.0-28.0); ABG OXYGEN SATURATION 93.4 % (94.0-98.0); ABG PCO2 28 mmHg (35-48); ABG PH 7.368 (7.350-7.450); CARBON MONOXIDE 0.3 % (0.5-1.5); DEVICE COMMENT LR ASHLER RN; HHb 6.5; PO2, ARTERIAL BG 74.2 mmHg (83.0-108.0); VENT MODE, BG VENTI (ROOM AIR)
[2024-09-22] MEDS ORDERED: MANNITOL 20% 500ML BAG 500 ML IV SCH ×2 (00:30)
--- NOTE | 2024-09-22 00:34 | NUR ---
PT PLACED ON HIGH FLOW OXYGEN 11L AT THIS TIME
--- NOTE | 2024-09-22 00:42 | CONS ---
[facility] CONSULTATION NOTE Date Patient Seen: Sep 22, 2024 Time of Visit: 00:24 Supervising Physician: [ DR. SHENA SOLIS] Reason for Consultation: [ CRITICAL CARE MANAGEMENT] Primary Care Physician: [ ] Outpatient Specialists: [ ] Inpatient Consults: [ ] PROBLEM LIST: 1. NSTEMI, POA 2. BILATERAL PNEUMONIA, POA 3. ACUTE HYPOXEMIC RESPIRATORY FAILURE, POA 4. ACUTE ON CHRONIC KIDNEY INJURY, POA 5. DKA, POA 6. ACUTE METABOLIC ACIDOSIS IN THE CONTEXT OF DKA, POA 7. HYPERKALEMIA IN THE CONTEXT OF ACUTE ON CHRONIC KIDNEY INJURY, POA 8. INFLUENZA A INFECTION, POA 9. MORBID OBESITY, POA 10. SEPSIS DUE TO BILATERAL PNEUMONIA AND INFLUENZA A INFECTION, POA CHIEF COMPLAINT: Shortness of breath, nausea and vomiting, productive cough. HPI: Patient is a 49-year-old male with past medical history significant for coronary artery disease, has been followed by Dr. Gonzales, chronic kidney disease stage IV followed by Dr. HOLLINGSWORTH, diabetes type 2, hyperlipidemia, and a surgical history of cataract surgery, presented to the emergency department complaining of worsening shortness of breath associated nausea and vomiting and productive cough for four days. Patient reports that for the past four days, he has been having productive cough associated with nausea and vomiting. Today, he started experiencing increased work of breathing and decided to come to the emergency department for further evaluation and treatment. Patient denies fever, chills, diarrhea, constipation, chest pain, dizziness, or any other symptoms. The workup in the emergency department shows a WBC of 11, pH of 7.32, PO2 of 49.6, bicarb 13.4, sodium of 131, potassium of 5.7, BUN of 87, creatinine of 7.8, GFR of eight, blood glucose 600, flu A positive, TROPONIN 5716. In the emergency department, the code STEMI was called initially following of the review of the EKG by trustee of estate, the diagnosis of NSTEMI was made. Patient, patient received IV fluid , was started on antibiotics, heparin drip, and insulin drip. Also, trustee of estate, recycling manager, and critical Care has been consulted. Patient will be admitted to ICU for close monitoring. PAST MEDICAL HX: see above PAST SURGICAL HX: noncontributory SOCIAL HISTORY: No tobacco, ETOH, or illicit drug use Coded Allergies: No Known Allergies (Unverified Allergy, Unknown, 03/27/22) REVIEW OF SYSTEMS: 12 point ROS reviewed with patient. Pertinent positives mentioned above. Otherwise negative. PHYSICAL EXAM: GENERAL: alert, weak, awake oriented x 3 HEENT: EOMI, Sclera non icteric, moist mucosa NECK: Supple, no JVD, trachea midline LUNGS: Diminished breath sounds bilaterally. No wheezes HEART: Regular rate and rhythm. Normal S1 and S2, without murmurs ABD: Abdomen soft, nontender. Bowel sounds present EXT: No clubbing cyanosis or edema NEURO: Alert and oriented to person, follows commands Vital Signs (last 8hr) Date Time Temp Pulse Resp B/P (MAP) Pulse Ox O2 Delivery O2 Flow Rate FiO2 09/22/24 00:05 117 18 Venti Mask 50 09/21/24 23:59 117 18 09/21/24 23:02 122 28 N/Cannula Low lpm 6.0 44 09/21/24 22:24 98.1 123 28 149/77 91 Nasal Cannula* 4 36 09/21/24 21:20 98.1 111 28 135/73 91 Nasal Cannula* 4 36 09/21/24 19:39 113 28 N/Cannula Low lpm 6.0 44 09/21/24 19:36 98.1 111 29 130/68 91 Nasal Cannula* 4 36 09/21/24 19:27 98.1 108 30 130/68 91 Nasal Cannula* 4 36 09/21/24 18:32 132 160/99 09/21/24 18:20 98.6 28 20 154/83 Room Air* 0 21 09/21/24 17:06 99.3 114 18 148/81 91 Room Air LABS: Hematology Labs: Test 09/21/24 18:28 09/21/24 17:24 Range/Units White Blood Count 11.2 H 4.8-10.8 K/uL Red Blood Count 3.16 L 4.50-6.20 MIL/uL Hemoglobin 9.0 L 14.0-18.0 g/dL Hematocrit 27.3 L 42-54 % Mean Corpuscular Volume 86.4 79-99 fL Mean Corpuscular Hemoglobin 28.5 27.0-33.0 pg Mean Corpuscular Hemoglobin Concent 33.0 32.0-36.0 g/dL Red Cell Distribution Width 13.2 11.0-15.5 % Platelet Count 230 130-400 K/uL Mean Platelet Volume 11.3 H 7.5-10.5 fL Immature Granulocyte % (Auto) 0.4 0-1 % Neutrophils (%) (Auto) 88.1 H 40.0-77.0 % Lymphocytes (%) (Auto) 6.3 L 21.0-51.0 % Monocytes (%) (Auto) 4.9 3.0-13.0 % Eosinophils (%) (Auto) 0.0 0.0-8.0 % Basophils (%) (Auto) 0.3 0.0-5.0 % Neutrophils # (Auto) 9.8 H 1.8-7.7 K/uL Lymphocytes # (Auto) 0.7 L 1.0-4.8 K/uL Monocytes # (Auto) 0.6 0.1-1.0 K/uL Eosinophils # (Auto) 0.00 0.00-0.70 K/uL Basophils # (Auto) 0.03 0.00-0.20 K/uL Absolute Immature Granulocyte (auto 0.04 0-1 K/uL Nucleated Red Blood Cells 0.0 0.0-0.19 % White Cell Morphology Comment See comments Chemistry Labs: Test 09/22/24 00:05 09/21/24 23:13 09/21/24 22:38 09/21/24 22:06 Range/Units Whole Blood Glucose 456 *H 70-110 MG/DL Sodium Level 133 L 136-145 mmol/L Potassium Level 4.8 3.5-5.1 mmol/L Chloride Level 97 L 101-111 mmol/L Carbon Dioxide Level 21 21-32 mmol/L Blood Urea Nitrogen 87 *H 7-18 mg/dL Creatinine 8.1 *H 0.5-1.3 mg/dL Glomerular Filtration Rate Calc 8 >90 mL/min Random Glucose 689 *H 70-105 mg/dL Total Calcium 8.0 L 8.5-10.1 mg/dL Magnesium Level 1.70 L 1.80-2.40 mg/dL Lactic Acid Level 2.8 H 0.8-2.5 mmol/L Bedside Glucose Comment Notified Nurse Test 09/21/24 20:57 09/21/24 17:24 Range/Units Whole Blood Ketones Quantitative 1.2 H 0.0-0.6 mmol/L Troponin I High Sensitivity 5716 *H 4-75 ng/L Total Bilirubin 0.5 0.2-1.0 mg/dL Aspartate Amino Transf (AST/SGOT) 31 10-37 U/L Alanine Aminotransferase (ALT/SGPT) 23 12-78 U/L Alkaline Phosphatase 85 50-136 U/L Total Protein 6.8 6.0-8.3 g/dL Albumin 2.1 L 3.5-5.0 g/dL Coagulation Labs: Test 09/21/24 18:23 Range/Units Activated Partial Thromboplast Time 31.0 26.3-35.5 SEC DIAGNOSTICS / RADIOLOGY RESULTS: [ ] PLAN NEURO: Minimize central acting medications as possible. Fall Precautions. Well lighted room through the day and minimize interruptions through the night to prevent acute delirium. PULMONARY: Supplemental 02 as needed DuoNebs every 6 hours Robitussin 10 mL q.4h p.r.n. for cough Titrate Fio2 to keep Spo2 > or = 90% DuoNebs and CPT as needed IS hourly while awake for pulmonary hygiene Out of bed to chair as tolerated VAP Bundle Vent/BIPAP Settings: [ ] Driving pressure: [ ] P Plat: [ ] Static C: [ ] Static R: [ ] P/F Ratio: [ ] CARDIOVASCULAR: Follow hemodynamics. Titrate vasopressor to keep MAP >65 or systolic blood pressure >95mmHg Aspirin 81 mg p.o. daily Atorvastatin 40 mg p.o. at bedtime Serial troponin level Methods Time Analyst consulted DIPS: Heparin drip LINES: [ ] GI & NUTRITION: Continue nutritional support Aspirations precautions Prokinetic agents and laxatives as needed Keep patient NPO KIDNEYS & ELECTROLYTES: Strict monitoring of intake and output Nephrology is consulted Obtain UA Daily weights Avoid nephrotoxic agents Monitor electrolytes and replace as needed Goal urine output of 30mL/hr or 0.5mL/kg/hr Urine output: [ ] Fluid Balance: [ ] ENDOCRINE: Maintain blood glucose between 100-180 at all times. Insulin sliding scale for blood glucose management Insulin drip per DKA protocol INFECTIOUS DISEASE: Trend temperature. Ritter-culture if febrile. Micro: [ ] Antibiotics: Zosyn 3.375 g IV every 8 hours and doxycycline 100 mg IV every 12 hours HEMATOLOGY & COAGULATION: Monitor H&H. Keep Hgb > 7 Transfuse 1 unit of PRBC for Hgb < 7 Transfuse 1 pack of platelets of platelets < 20, 000 Watch for any signs and symptoms of bleeding SKIN: Pressure ulcer prevention per facility protocol Rehab: PT/OT Prophylaxis: GI: Famotidine DVT: Heparin Code Status: Full Resuscitation Disposition: [Keep in ICU ] Other: Total patient care time exceeds 35 minutes excluding all procedures. Case was discussed and seen with my supervising physician. The above plan was formulated and agreed upon. WILMA HALL Sep 22, 2024 00:42
[2024-09-22] MEDS: Solu-medROL 125MG VIAL IVP ONE (01:35)
--- NOTE | 2024-09-22 01:44 | NUR ---
INFORMATICS COORDINATOR PROVIDER PAGED FOR CRITICAL CALL LABS AT THIS TIME. PENDING CALL BACK.
--- NOTE | 2024-09-22 02:07 | NUR ---
REPAGED CUSTOMER CARE VOICE CONSULTANT PROVIDER REGARDING CRITICAL LAB VALUES
[2024-09-22 02:09] LABS: HEMOGLOBIN A1C 13.8 % (4.0-6.0)
--- NOTE | 2024-09-22 02:24 | NUR ---
MENTAL HEALTH SOCIAL WORKER PROVIDER CALLED BACK AT THIS TIME. MENTAL HEALTH SOCIAL WORKER PROVIDER WAS NOTIFIED ABOUT CRITICAL LAB VALUES.
[2024-09-22 03:14] LABS: INR 1.05 (0.85-1.15); PROTHROMBIN TIME 11.7 SEC (9.6-11.6)
[2024-09-22 03:45] LABS: PARTIAL THROMBOPLASTIN TIME 104.5 SEC (26.3-35.5)
[2024-09-22 04:09] LABS: BASOPHILS # (AUTO) 0.03 K/uL (0.00-0.20); BASOPHILS % (AUTO) 0.3 % (0.0-5.0); EOSINOPHILS # (AUTO) 0.01 K/uL (0.00-0.70); EOSINOPHILS % (AUTO) 0.1 % (0.0-8.0); HEMATOCRIT 24.4 % (42-54); IMMATURE GRANULOCYTE ABSOLUTE 0.04 K/uL (0-1); LYMPHOCYTES # (AUTO) 0.6 K/uL (1.0-4.8); LYMPHOCYTES % (AUTO) 5.7 % (21.0-51.0); MEAN CORPUSCULAR HEMOGLOBIN 28.5 pg (27.0-33.0); MEAN CORPUSCULAR VOLUME 83.8 fL (79-99); MONOCYTES # (AUTO) 0.5 K/uL (0.1-1.0); MONOCYTES % (AUTO) 4.5 % (3.0-13.0); NEUTROPHILS # (AUTO) 8.8 K/uL (1.8-7.7); PLATELET COUNT (AUTO) 248 K/uL (130-400); RED BLOOD CELL COUNT(AUTO) 2.91 MIL/uL (4.50-6.20); RED CELL DISTRIBUTION WIDTH 13.2 % (11.0-15.5); WHITE BLOOD COUNT (AUTO) 9.9 K/uL (4.8-10.8)
--- NOTE | 2024-09-22 04:56 | NUR ---
PER LAB POTASSIUM LEVEL AT 6.2. RECOLLECTION TAKEN AT THIS TIME.
[2024-09-22 05:09] LABS: ABG BASE EXCESS -8.2 mmol/L (-2.0-3.0); ABG HCO3 16.6 mmol/L (21.0-28.0); ABG OXYGEN SATURATION 93.5 % (94.0-98.0); ABG PCO2 31 mmHg (35-48); ABG PH 7.344 (7.350-7.450); CARBON MONOXIDE 0.3 % (0.5-1.5); DEVICE COMMENT LR RN; HHb 6.4; PO2, ARTERIAL BG 75.9 mmHg (83.0-108.0); VENT MODE, BG 11 OXI (ROOM AIR)
--- NOTE | 2024-09-22 05:33 | NUR ---
MEDICATION RECONCILIATION HOME MEDS ARE NOT WITH PT AT THIS TIME. PT EDUCATED ON THE IMPORTANCE OF MEDICATION RECONCILIATION. PT VERBILIZED UNDERSTANDING OF THE EDUCATION. PT WILL HAVE BRING MEDICATIONS IN AM.
[2024-09-22 05:34] LABS: ALBUMIN 1.8 g/dL (3.5-5.0); BILIRUBIN,TOTAL 0.4 mg/dL (0.2-1.0); MAGNESIUM 2.3 mg/dL (1.80-2.40); POTASSIUM 5.6 mmol/L (3.5-5.1); TOTAL PROTEIN, SERUM 6.8 g/dL (6.0-8.3)
[2024-09-22 05:45] LABS: CREATININE 8.1 mg/dL (0.5-1.3)
[2024-09-22] MEDS: SODIUM CHLORIDE 3% FOR INHALATION 4 ML/AMP VIAL.NEB IH ONE (05:59)
--- NOTE | 2024-09-22 07:07 | NUR ---
REPORT GIVEN TO DARIN DASH AT THIS TIME
[2024-09-22] MEDS: Solu-medROL 40MG VIAL IVP SCH (08:14)
[2024-09-22] MEDS: FAMOTIDINE 20MG VIAL IV SCH (08:15)
[2024-09-22] MEDS: OSELTAMIVIR PHOSPHATE 75 MG CAP PO SCH (08:15)
[2024-09-22] MEDS: ASPIRIN 81 MG EC TAB PO SCH (08:15)
--- NOTE | 2024-09-22 08:58 | EKG ---
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: [id number] : 1975 Requested By: HEBER CABRERA Order Number: [id number] Reading MD: Liliana Acharya Measurements Intervals [place] Rate: 108 P: 59 PA: 189 QRS: 24 QRSD: 94 T: 170 QT: 356 QTc: 477 Interpretive Statements Sinus tachycardia Repol abnrm suggests ischemia, diffuse leads Borderline ST elevation, anterior leads Compared to ECG 09/21/2024 18:09:03 Myocardial infarct finding no longer present Possible ischemia still present ST (T wave) deviation still present Electronically Signed On 09-22-2024 16:08:40 GAS ENGINE OPERATOR by Liliana Acharya Please click the below link to view image of tracing.
[2024-09-22 09:42] LABS: INR 0.97 (0.85-1.15); PROTHROMBIN TIME 10.9 SEC (9.6-11.6)
[2024-09-22 09:43] LABS: PARTIAL THROMBOPLASTIN TIME 50.1 SEC (26.3-35.5)
[2024-09-22 09:49] LABS: POTASSIUM 4.6 mmol/L (3.5-5.1)
[2024-09-22] MEDS: DEXTROSE 5 %-0.45 % NACL 1,000 ML IV SCH (09:49)
[2024-09-22 09:50] LABS: CREATININE 7.8 mg/dL (0.5-1.3)
--- NOTE | 2024-09-22 10:24 | NUR ---
DCP: HOME Sw spoke to pt's Neela Beckwith [phone]. Prior to admission, pt was working, driving, able to complete ADLS and IADLS on his own. Pt has no DME or in home cares services at this time. PCP is Fátima Acosta and uses [facility] for rx. Denies dc needs and will return home with at dc Addendum: 09/22/24 at 1027 by LTETY AVELAR SS Amended: Links added.
[2024-09-22] MEDS ORDERED: FERR-82 PO (11:10)
[2024-09-22] MEDS ORDERED: SODI650T PO (11:10)
[2024-09-22] MEDS ORDERED: FOLI0.8T22 PO (11:10)
--- NOTE | 2024-09-22 11:31 | HMCIMG ---
US RENAL SONOGRAM REASON: acute renal failure COMPARISON: None TECHNIQUE: Renal and bladder sonogram was performed. FINDINGS: Right kidney is 11.3 x 4.9 x 4.7 cm, left is 11.5 x 5.5 x 4.4 cm. There is no mass, stone or hydronephrosis. Cortical thickness appears preserved. Echogenicity appears normal. The urinary bladder appears normal as well. IMPRESSION: 1. Normal renal and bladder sonogram.
[2024-09-22 13:40] LABS: POTASSIUM 4.6 mmol/L (3.5-5.1)
[2024-09-22 13:43] LABS: CREATININE 8.1 mg/dL (0.5-1.3)
--- NOTE | 2024-09-22 14:20 | NUR ---
900 ML URINE OUTPUT FROM [facility]
--- NOTE | 2024-09-22 14:59 | CONS ---
NEPHROLOGY CONSULTATION NOTE Date/Time Patient Seen: Sep 22, 2024 1400 Reason for Consultation: Cough,chest congestion, renal failure HISTORY OF PRESENT ILLNESS: This is a 49-year-old male with past medical history of CKD, diabetes, hypertension, hyperlipidemia and obesity He presents to the ED for complaints of cough and chest congestion Patient reports coughing up pinkish colored thick phlegm, loss of appetite and on Sunday Continues to be followed by Cardiology He continues on Heparin and Insulin drip. Chest x-ray result revealed extensive bilateral mid to lower lung pneumonia right greater than left. Positive for influenza A, he has been started on Tamiflu. He was noted with elevated BUN/creatinine. We will has been consulted for renal failure. Renal function remains elevated Electrolytes are stable. Renal ultrasound was noted. He was seen in the emergency room Family at the bedside Prognosis remains guarded Condition is critical and guarded REVIEW OF SYSTEMS: GENERAL: Positive for cough, congestion and generalized weakness NEUROLOGIC: Negative for any blurry vision, blind spots, double vision, facial asymmetry, dysphagia, dysarthria, hemiparesis, hemisensory deficits, vertigo, ataxia. HEENT: Negative for any head trauma, neck trauma, neck stiffness, photophobia, phonophobia, sinusitis, rhinitis. CARDIAC: Negative for any chest pain, dyspnea on exertion, paroxysmal nocturnal dyspnea, peripheral edema. PULMONARY: Negative for any shortness of breath, wheezing, COPD, or TB exposure. GASTROINTESTINAL: Negative for any abdominal pain, nausea, vomiting, bright red blood per rectum, melena. GENITOURINARY: Negative for any dysuria, hematuria, incontinence. INTEGUMENTARY: Negative for any rashes, cuts, insect bites. RHEUMATOLOGIC: Negative for any joint pains, photosensitive rashes, history of vasculitis or kidney problems. HEMATOLOGIC: Negative for any abnormal bruising, frequent infections or bleeding. PAST MEDICAL HISTORY: Chronic kidney disease Diabetes mellitus type 2 Hypertension Hyperlipidemia Obesity PAST SURGICAL HISTORY: Left eye cataract surgery PAST SOCIAL HISTORY: Denies use of alcohol, tobacco or illicit drugs FAMILY HISTORY: Noncontributory PHYSICAL EXAM: GENERAL: Alert and oriented x 3. No acute distress. Well-nourished. EYES: EOMI. Anicteric. HENT: Moist mucous membranes. No scleral icterus. No cervical lymphadenopathy. LUNGS: Clear to auscultation bilaterally. No accessory muscle use. CARDIOVASCULAR: Regular rate and rhythm. No murmur. No JVD. ABDOMEN: Soft, non-tender and non-distended. No palpable masses. EXTREMITIES: No edema. Non-tender. SKIN: No rashes or lesions. Warm. NEUROLOGIC: No focal neurological deficits. CN II-XII grossly intact, but not individually tested. PSYCHIATRIC: Cooperative. Appropriate mood and affect. MEDICATIONS: [ ] Current Medications Medications (Trade) Dose Ordered Sig/Sierra Route PRN Reason Start Time Stop Time Status Last Admin Dose Admin Acetaminophen (TYLenol 325MG TAB) 650 mg Q4H PRN PO MILD PAIN (1-3) 09/21/24 19:30 10/21/24 19:29 09/21/24 22:53 650 MG Acetaminophen (TYLenol 325MG TAB) 650 mg Q6H PRN PO TEMPERATURE GREATER THAN 101.5 09/21/24 19:30 10/21/24 19:29 Albuterol (DUOneb) 1 udvial [id number] IH 09/21/24 22:00 10/21/24 21:59 09/22/24 14:34 1 UDVIAL Aspirin (Aspirin 81mg Ec Tab) 81 mg DAILY PO 09/22/24 09:00 10/22/24 08:59 09/22/24 08:15 81 MG Atorvastatin Calcium (LIPItor 40MG) 40 mg HS PO 09/22/24 21:00 10/22/24 20:59 Azithromycin 250 ml @ 250 mls/hr Q24H IVPB 09/21/24 18:00 09/21/24 18:14 DC Dextrose/Sodium Chloride 1,000 ml @ 0 mls/hr AD IV 09/22/24 00:00 10/22/24 00:00 09/22/24 09:49 150 MLS/HR Doxycycline Hyclate (Doxycycline Hyclate) 100 mg BID PO 09/21/24 21:00 10/01/24 20:59 09/22/24 08:16 100 MG Famotidine (Pepcid 20mg Vial) 10 mg DAILY IV 09/22/24 09:00 10/22/24 08:59 09/22/24 08:15 10 MG Famotidine (Pepcid 20mg Tab) 10 mg Q48H PO 09/21/24 19:30 09/21/24 20:00 DC Furosemide (LASix 40MG VIAL) 80 mg Q12H IV 09/22/24 21:00 10/22/24 20:59 Guaifenesin/ Dextromethorphan (RobiTUSSin DM 200/20MG 10ML) 10 ml Q4H PRN PO COUGH 09/21/24 19:30 10/21/24 19:29 Heparin Sodium (Porcine) (HEParin 5,000 UNIT VIAL) *calculation based on ACTUAL B... AD PRN IV HEPARIN PROTOCOL 09/21/24 19:30 10/21/24 19:29 Heparin Sodium/ Dextrose 250 ml @ 0 mls/hr Q6H IV 09/21/24 19:30 10/21/24 19:29 09/22/24 10:43 14.7 MLS/HR Insulin Human Regular 100 unit/ Sodium Chloride 101 ml @ 0 mls/hr PROTOCOL IV 09/21/24 20:00 10/21/24 19:59 09/21/24 21:01 9.8 MLS/HR Insulin Human Regular 100 unit/ Sodium Chloride 101 ml @ 0 mls/hr PROTOCOL IV 09/22/24 00:00 09/22/24 00:03 DC Magnesium Sulfate 50 ml @ 0 mls/hr PROTOCOL IV 09/22/24 00:00 10/22/24 00:00 Magnesium Sulfate 50 ml @ 0 mls/hr PROTOCOL PRN IV OTH 09/22/24 00:00 09/22/24 00:04 DC 09/21/24 23:52 25 MLS/HR Mannitol 245 ml @ 0 mls/hr AD IV 09/22/24 00:30 10/22/24 00:29 Mannitol 500 ml @ 0 mls/hr AD IV 09/22/24 00:30 09/22/24 14:33 DC Mannitol (Osmitrol 20% 250ml Bag) 49 gm AD IV 09/22/24 00:00 09/22/24 00:28 DC Methylprednisolone Sodium Succinate (Solu-medROL 40MG) 40 mg BID IVP 09/22/24 09:00 10/22/24 08:59 09/22/24 08:14 40 MG Nitroglycerin (Nitroglycerin 1gm Oint) 0.5 inch Q8H TD 09/21/24 19:30 10/21/24 19:29 09/22/24 11:27 0.5 INCH Oseltamivir Phosphate (Tamiflu) 75 mg DAILY PO 09/22/24 09:00 09/27/24 08:59 09/22/24 08:15 75 MG Piperacillin Sod/ Tazobactam Sod 50 ml @ 12.5 mls/hr Q12H IV 09/21/24 21:00 10/01/24 20:59 09/22/24 08:14 12.5 MLS/HR Potassium Chloride 20 meq/ Sodium Chloride 1,010 ml @ 0 mls/hr PROTOCOL IV 09/22/24 00:00 10/22/24 00:00 Potassium Chloride/Dextrose/ Sod Cl 1,000 ml @ 0 mls/hr AD IV 09/22/24 00:00 10/22/24 00:00 Sodium Chloride 1,000 ml @ 100 mls/hr Q10H IV 09/21/24 19:30 10/21/24 19:29 09/22/24 08:14 100 MLS/HR Sodium Chloride 1,000 ml @ 200 mls/hr PROTOCOL IV 09/22/24 00:00 10/22/24 00:00 Vitamin B Complex/ Vit C/Folic Acid (Nephrovite Tablet) 1 cap DAILY PO 09/23/24 09:00 10/23/24 08:59 Vital Signs (last 8hr) Date Time Temp Pulse Resp B/P (MAP) Pulse Ox O2 Delivery O2 Flow Rate FiO2 09/22/24 14:36 109 20 N/Cannula Oximizer Hi LPM 7.0 09/22/24 14:36 109 20 09/22/24 14:05 98.6 110 19 141/90 95 N/C Oxymizer Hi LPM* 7 60 09/22/24 12:00 99 N/C Oxymizer Hi LPM* 7 60 09/22/24 11:00 19 143/85 95 Nasal Cannula 7.0 09/22/24 10:03 104 24 N/Cannula Oximizer Hi LPM 7.0 09/22/24 10:03 104 24 09/22/24 10:00 20 145/84 98 Nasal Cannula 7.0 09/22/24 09:00 22 128/88 96 Nasal Cannula 8.0 09/22/24 08:00 98 N/C Oxymizer Hi LPM* 7 60 09/22/24 08:00 98.6 19 149/80 98 Nasal Cannula 12.0 09/22/24 08:00 134 129/54 Nasal Cannula* 3 32 DIAGNOSTICS / RADIOLOGY: REASON: acute renal failure ORDERING PHYSICIAN: TERRANCE CHAN PROCEDURE: RENAL - US RENAL SONOGRAM US RENAL SONOGRAM REASON: acute renal failure COMPARISON: None TECHNIQUE: Renal and bladder sonogram was performed. FINDINGS: Right kidney is 11.3 x 4.9 x 4.7 cm, left is 11.5 x 5.5 x 4.4 cm. There is no mass, stone or hydronephrosis. Cortical thickness appears preserved. Echogenicity appears normal. The urinary bladder appears normal as well. IMPRESSION: 1. Normal renal and bladder sonogram. DICTATED BY: ARMANDO FAIR MD DATE: 09/22/24 112 REASON: sob ORDERING PHYSICIAN: TERRANCE CHAN PROCEDURE: CHEST WO - CT CHEST W/O CONTRAST CT CHEST WITHOUT CONTRAST INDICATION: Bilateral lung pneumonia TECHNIQUE: Routine axial images using 5 mm slice thickness were acquired from the lung apices to the bases without the administration of IV contrast.Coronal and sagittal reformatted images acquired for interpretation. CT was performed with one or more of the following dose reduction techniques: Automated exposure control, adjustment of the mA and/or kV according to patient size, or use of iterative reconstruction technique. COMPARISON: None FINDINGS: The heart size is normal. Coronary arterial wall calcific plaque noted. No pericardial effusion noted. Mild calcific plaque is present along the aortic arch and thoracic aortic ibrahim without aneurysmal dilation. The trachea and airways are patent. Coalescent "ground-glass" opacities with intermixed consolidation/nodularity noted throughout the bilateral lungs in a centrilobular distribution. No axillary, hilar, or mediastinal lymphadenopathy. No pleural effusion or pneumothorax identified. Limited views of the upper abdomen appear normal. Visible osseous structures are intact. IMPRESSION: Extensive bilateral lung pneumonia. Arteriosclerotic disease as described. DICTATED BY: AGUS MC MD DATE: 09/21/242025 REASON: cough, shortness of breath ORDERING PHYSICIAN: HEBER CABRERA NP PROCEDURE: CXR1VW - CHEST 1VW PORTABLE CHEST RADIOGRAPH INDICATION: cough, shortness of breath COMPARISON: 04/05/2024 FINDINGS: Heart size is normal. The pulmonary vascularity and eder appear normal. Extensive coalescent/consolidative bilateral mid to lower lung opacities, right greater than left. No significant pleural effusion noted. No pneumothorax detected. IMPRESSION: Extensive bilateral mid to lower lung pneumonia, right greater than left. DICTATED BY: AGUS MC MD DATE: 09/21/241899 LABORATORY: [ ] Hematology Labs: Test 09/22/24 04:00 09/21/24 17:24 Range/Units White Blood Count 9.9 4.8-10.8 K/uL Red Blood Count 2.91 L 4.50-6.20 MIL/uL Hemoglobin 8.3 L 14.0-18.0 g/dL Hematocrit 24.4 L 42-54 % Mean Corpuscular Volume 83.8 79-99 fL Mean Corpuscular Hemoglobin 28.5 27.0-33.0 pg Mean Corpuscular Hemoglobin Concent 34.0 32.0-36.0 g/dL Red Cell Distribution Width 13.2 11.0-15.5 % Platelet Count 248 130-400 K/uL Mean Platelet Volume 11.2 H 7.5-10.5 fL Immature Granulocyte % (Auto) 0.4 0-1 % Neutrophils (%) (Auto) 89.0 H 40.0-77.0 % Lymphocytes (%) (Auto) 5.7 L 21.0-51.0 % Monocytes (%) (Auto) 4.5 3.0-13.0 % Eosinophils (%) (Auto) 0.1 0.0-8.0 % Basophils (%) (Auto) 0.3 0.0-5.0 % Neutrophils # (Auto) 8.8 H 1.8-7.7 K/uL Lymphocytes # (Auto) 0.6 L 1.0-4.8 K/uL Monocytes # (Auto) 0.5 0.1-1.0 K/uL Eosinophils # (Auto) 0.01 0.00-0.70 K/uL Basophils # (Auto) 0.03 0.00-0.20 K/uL Absolute Immature Granulocyte (auto 0.04 0-1 K/uL Nucleated Red Blood Cells 0.0 0.0-0.19 % White Cell Morphology Comment See comments Chemistry Labs: Test 09/22/24 13:14 09/22/24 13:13 09/22/24 09:13 09/22/24 04:56 Range/Units Sodium Level 134 L 136-145 mmol/L Potassium Level 4.6 3.5-5.1 mmol/L Chloride Level 99 L 101-111 mmol/L Carbon Dioxide Level 19 L 21-32 mmol/L Blood Urea Nitrogen 94 *H 7-18 mg/dL Creatinine 8.1 *H 0.5-1.3 mg/dL Glomerular Filtration Rate Calc 8 >90 mL/min Random Glucose 384 H 70-105 mg/dL Total Calcium 8.0 L 8.5-10.1 mg/dL Whole Blood Glucose 346 H 70-110 MG/DL Lactic Acid Level 2.3 0.8-2.5 mmol/L Troponin I High Sensitivity 6392 *H 4-75 ng/L Magnesium Level 2.30 1.80-2.40 mg/dL Total Bilirubin 0.4 0.2-1.0 mg/dL Aspartate Amino Transf (AST/SGOT) 45 H 10-37 U/L Alanine Aminotransferase (ALT/SGPT) 25 12-78 U/L Alkaline Phosphatase 73 50-136 U/L Total Protein 6.8 6.0-8.3 g/dL Albumin 1.8 L 3.5-5.0 g/dL Triglycerides Level 221 H 30-200 mg/dL Cholesterol Level 242 #H <200 mg/dL LDL Cholesterol 149 H 0-99 mg/dL HDL Cholesterol 45 29-71 mg/dL Test 09/22/24 04:00 09/22/24 00:48 09/21/24 22:06 09/21/24 20:57 Range/Units Procalcitonin 70.62 H 0.05-0.5 ng/mL Hemoglobin A1c 13.8 H 4.0-6.0 % Estimated Average Glucose (eAG) 349 H 70-126 mg/dL Bedside Glucose Comment Notified Nurse Whole Blood Ketones Quantitative 1.2 H 0.0-0.6 mmol/L Coagulation Labs: Test 09/22/24 13:14 09/22/24 09:13 Range/Units Activated Partial Thromboplast Time 44.1 H 26.3-35.5 SEC Prothrombin Time 10.9 9.6-11.6 SEC Prothromb Time International Ratio 0.97 0.85-1.15 ASSESSMENT: Hyperosmolar Hyperglycemic Syndrome NSTEMI Influenza bronchopneumonia with sepsis Acute Hypoxemic Respiratory Failure Acute on chronic renal failure with concern for ATN Metabolic acidosis Lactic acidosis CKD stage 4 Uncontrolled Diabetes Protein Calorie malnutrition PLAN: Labs, diagnostic, radiologic exams reviewed and interpreted by myself and supervising physician. We have reviewed external records in detail Preserve nondominant arm Start Lasix 80 mg IV b.i.d. Require close monitoring of renal function and electrolytes Order CBC, CMP, uric acid, TSH and electrolytes in am Continue with antibiotics Renal diabetic diet BiPAP as necessary, for respiratory distress IV pressors as needed Monitor blood pressure adjust medication doses as needed Avoid hypotensive episodes May use Dilaudid 0.5 mg IV every 6 hours as needed for severe pain Monitor blood sugars Strict intake, output, and daily weight should be monitored Please renally adjust medications Avoid nephrotoxic and nonsteroidal drugs Avoid contrast if possible Will continue to monitor renal function, anemia, electrolytes Treatment plan discussed with patient Questions were answered We have discussed with the other team physicians in detail about the care plan We will continue to monitor the patient closely Thank you for allowing us to participate in the care of this patient Total critical care time spent with patient, nursing staff, critical care team over 35 minutes ATTESTATION BY PHYSICIAN I have seen and examined the patient. I reviewed the documentation, medical decision making, and treatment plan as noted by the mid-level provider above. I agree with the findings and plan of care. BRAYDON HOLLINGSWORTH MD, [facility] Sep 22, 2024 14:59
[2024-09-22 15:39] LABS: APPEARANCE,URINE TURBID (CLEAR); BILIRUBIN,URINE NEGATIVE (NEGATIVE); COLOR,URINE LIGHT-ORANGE (YELLOW); GLUCOSE, URINE (UA) 500 mg/dL (NEGATIVE); KETONES,URINE NEGATIVE (NEGATIVE); LEUKOCYTE ESTERASE ,URINE 75 Leu/uL (NEGATIVE); NITRATE,URINE NEGATIVE (NEGATIVE); OCCULT BLOOD,URINE LARGE (NEGATIVE); PROTEIN,URINE 600 mg/dL (NEGATIVE); UROBILINOGEN,URINE 0.2 mg/dL (0.2-1.0)
[2024-09-22 15:48] LABS: BACTERIA,URINE FEW /HPF (None Seen); MUCUS,URINE RARE LPF (None Seen); RBC,URINE TNTC /HPF (0-1); SQUAMOUS EPITHELIAL CELL,UR MANY /HPF (0-2)
--- NOTE | 2024-09-22 16:02 | PN ---
[facility] PROGRESS NOTE Date of Service: Sep 22, 2024 Time of Service: 15:46 SUBJECTIVE: This is a 49-year-old male with past medical history of CKD not on hemodialysis, diabetes, hypertension, hyperlipidemia and obesity who presents to the ED for complaints of cough and chest congestion which started last Sunday and getting worse on Sunday. Patient reports coughing up pinkish colored thick phlegm, loss of appetite and on Sunday started not eating unable to sleep, vomiting and having chest pain triggered by persistent coughing he said.Patient reports having soreness due to hard cough he said.Patient reports having sweeling on both lower extremities and started having shortness of breath and today he started having non bloody diarrhea. Neela was at bedside during my evaluation. Upon arrival to ER a STEMI alert was activated per ER MD and spoke to [employer] parts salesperson and as per report patient is possibly going to cathlab tomorrow and patient is going to be started on Heparin and Insulin drip. Seen and examined patient in the Er awake,alert and coherent,appears weak looking.Patient denies fever,palpitation ,dizziness ,sore throat and headache. Latest vital signs temperature 98.1, heart rate 108, respiration 30 blood pressure 130/68 saturation 91% on 4 L nasal cannula. Labs: WBC 11.2, hemoglobin 9, hematocrit 27, platelet count 238, neutrophils 88. PH 7.32, CO2 26, PO2 49.6, bicarb 13, PO2 80 base excess -11.3. Sodium 129, potassium 5.9, chloride 93, CO2 19, BUN 88, creatinine 8.2, GFR seven glucose 876 , lactic acid 3.0-3.2, troponin 5531 albumin 2.1. Influenza A positive influenza B negative SARs COVID negative. Strep A negative. Chest x-ray result revealed extensive bilateral mid to lower lung pneumonia right greater than left. First ECG result revealed sinus tachycardia heart rate 121 probable left atrial enlargement repolarization abnormal suggest ischemia diffuse leads ST-elevation consider anterior injury. Second EKG result revealed sinus tachycardia repolarization abnormality suggest ischemia diffuse leads borderline ST elevation anterior leads heart rate 108. While in the ER patient received Tamiflu 75 mg p.o., 1 L NS bolus, Lopressor 5 mg IV, insulin 10 units IV, Zosyn IV, Zofran 4 mg IV and Phenergan codeine 10 mL p.o. we will admit patient in ICU for further medical management. 09/22/24 patient was seen and examined in ED bed 13. Today his vitals are 145/84, respiratory rate 22, SpO2 99% on 7 L nasal cannula, pulse rate 110. He complaints of cough with sputum, but says it is getting better than yesterday, denies shortness of breath or chest pain or dizziness. Nephrology was consulted and recommended to start Lasix 80 mg IV b.i.d and to start renal diabetic diet. He is currently on zosyn , doxycycline and Tamiflu. He is on IV insulin drip and glucose has come down from 8 0s to 400s. Pending Cardiology recommendations. He requires sleep study once he is discharged. REVIEW OF SYSTEMS CONSTITUTIONAL: Denies fevers, chills, or night sweats. No unintentional weight loss reported. NEUROLOGICAL: Denies headache, amaurosis fugax, motor weakness, sensory deficit, vertigo/spinning sensation, gait abnormalities, or tremors. ENT: No hearing loss, otalgia, otorrhea, rhinitis, rhinorrhea, hoarseness, or sore throat. CARDIOVASCULAR: Complaints of orthopnea shortness of breaths and chest pain Denies paroxysmal nocturnal dyspnea, palpitations, life-threatening arrhythmias, claudication. PULMONARY: Complaints of productive cough , pleuritic chest pain and shortness of breaths SLEEP: Complains of unable to sleep Denies morning headaches, daytime somnolence or napping. Denies waking from sleep. Denies knowledge of snoring. GASTROINTESTINAL: Complaints of loss of appetite, vomiting and diarrhea Denies any type of dysphagia to either liquids or solids. Denies nausea, vomiting, pyrosis, early satiety, abdominal pain, diarrhea, constipation, or changes in stool consistency or caliber. Denies coffee-ground emesis, hematemesis, hematochezia, or melanotic stools. GENITOURINARY: Denies frequency, urgency, nocturia, hematuria or incontinence (Storage/Irritative symptoms.) Low urinary stream, straining to void, urinary intermittency or hesitancy, splitting of the voiding stream, terminal dribbling. ENDOCRINOLOGIC: Denies polyuria, polydipsia, polyphagia or heat/cold into lerances. Patient reports not taking medications for diabetes because he was not eating. HEMATOLOGIC: Denies thrombophilia/previous clots, or coagulopathy/bleeding disorders. ONCOLOGIC: Denies personal history of malignancy. DERMATOLOGIC: Denies rashes or pruritus. PSYCHIATRIC: Denies any suicidal or homicidal ideation. Denies hallucinations. PHYSICAL EXAM GENERAL APPEARANCE: The patient is awake, alert, and oriented appears generally weak NEUROLOGICAL: Cranial nerves II-XII grossly intact. Motor is 5/5 in bilateral upper and lower extremities proximal to distal. No sensory deficits. HEENT: Face is symmetric. Pupils are equal and reactive. Extraocular movements are intact. NECK: Supple. No JVD. No thyromegaly. No submental, submandibular, pre- /postauricular, occipital or supraclavicular lymphadenopathy. CHEST: Normal chest expansion. No Telemetry. LUNGS: . Diminished lung sounds to bilateral lung james CARDIOVASCULAR: Tachycardic Regular. S1 and S2 normal. No appreciable rubs, murmurs or gallops. ABDOMEN: Round and firmed There is no rebound, voluntary guarding, or rigidity. : Deferred. No Delc Id. EXTREMITIES: Bilateral lower extremity edema No clubbing. Good capillary refill. SKIN: No skin breakdown. Vital Signs (last 8hr) Date Time Temp Pulse Resp B/P (MAP) Pulse Ox O2 Delivery O2 Flow Rate FiO2 09/22/24 15:15 98.4 109 18 125/64 98 Aerosol Mask+ 7 60 09/22/24 14:36 109 20 N/Cannula Oximizer Hi LPM 7.0 09/22/24 14:36 109 20 09/22/24 14:05 98.6 110 19 141/90 95 N/C Oxymizer Hi LPM* 7 60 09/22/24 12:00 99 N/C Oxymizer Hi LPM* 7 60 09/22/24 11:00 19 143/85 95 Nasal Cannula 7.0 09/22/24 10:03 104 24 N/Cannula Oximizer Hi LPM 7.0 09/22/24 10:03 104 24 09/22/24 10:00 20 145/84 98 Nasal Cannula 7.0 09/22/24 09:00 22 128/88 96 Nasal Cannula 8.0 09/22/24 08:00 98 N/C Oxymizer Hi LPM* 7 60 09/22/24 08:00 98.6 19 149/80 98 Nasal Cannula 12.0 09/22/24 08:00 134 129/54 Nasal Cannula* 3 32 LABS: Laboratory: Test 09/22/24 15:00 09/22/24 14:11 09/22/24 13:14 09/22/24 09:13 Range/Units Urine Color LIGHT-ORANGE YELLOW Urine Appearance TURBID CLEAR Urine pH 6.0 5.0-8.0 Urine Specific [place] 1.013 1.001-1.031 Urine Protein 600 H NEGATIVE mg/dL Urine Glucose (UA) 500 H NEGATIVE mg/dL Urine Ketones NEGATIVE NEGATIVE mg/dL Urine Occult Blood LARGE H NEGATIVE Urine Nitrate NEGATIVE NEGATIVE Urine Bilirubin NEGATIVE NEGATIVE mg/dL Urine Urobilinogen 0.2 0.2-1.0 mg/dL Urine Leukocyte Esterase 75 H NEGATIVE [place]/uL Whole Blood Glucose 341 H 70-110 MG/DL Activated Partial Thromboplast Time 44.1 H 26.3-35.5 SEC Sodium Level 134 L 136-145 mmol/L Potassium Level 4.6 3.5-5.1 mmol/L Chloride Level 99 L 101-111 mmol/L Carbon Dioxide Level 19 L 21-32 mmol/L Blood Urea Nitrogen 94 *H 7-18 mg/dL Creatinine 8.1 *H 0.5-1.3 mg/dL Glomerular Filtration Rate Calc 8 >90 mL/min Random Glucose 384 H 70-105 mg/dL Total Calcium 8.0 L 8.5-10.1 mg/dL Prothrombin Time 10.9 9.6-11.6 SEC Prothromb Time International Ratio 0.97 0.85-1.15 Lactic Acid Level 2.3 0.8-2.5 mmol/L Troponin I High Sensitivity 6392 *H 4-75 ng/L Test 09/22/24 05:08 09/22/24 04:56 09/22/24 04:00 09/22/24 00:48 Range/Units Blood Gas Specimen Type Arterial Arterial Blood pH 7.344 L 7.350-7.450 Arterial Blood Partial Pressure CO2 31 L 35-48 mmHg Arterial Blood Partial Pressure O2 75.9 L 83.0-108.0 mmHg Arterial Blood HCO3 16.6 L 21.0-28.0 mmol/L Arterial Blood Oxygen Saturation 93.5 L 94.0-98.0 % Arterial Blood Base Excess -8.2 L -2.0-3.0 mmol/L Hemoglobin (Blood Gas) 9.1 L 13.5-17.5 g/dL Sodium (Blood Gas) 137 136-145 MMOL/L Bedside Potassium (Blood Gas) 5.0 H 3.4-4.5 MMOL/L Bedside Chloride (Blood Gas) 106 98-107 MMOL/L Bedside Glucose (Blood Gas) 358 H 65-95 MG/DL Bedside Ionized Calcium (Blood Gas) 1.11 L 1.15-1.33 MMOL/L Bedside Lactic Acid (Blood Gas) 1.49 H 0.36-0.75 MMOL/L Blood Gas Temperature 37.0 35.5-37.0 CELSIUS Blood Gas Flow-by 11.00 0.00-15.00 L/min Blood Gas Vent Mode 11 OXI ROOM AIR FiO2 70.0 % Blood Gas Specimen Comment LR RN Magnesium Level 2.30 1.80-2.40 mg/dL Total Bilirubin 0.4 0.2-1.0 mg/dL Aspartate Amino Transf (AST/SGOT) 45 H 10-37 U/L Alanine Aminotransferase (ALT/SGPT) 25 12-78 U/L Alkaline Phosphatase 73 50-136 U/L Total Protein 6.8 6.0-8.3 g/dL Albumin 1.8 L 3.5-5.0 g/dL Triglycerides Level 221 H 30-200 mg/dL Cholesterol Level 242 #H <200 mg/dL LDL Cholesterol 149 H 0-99 mg/dL HDL Cholesterol 45 29-71 mg/dL White Blood Count 9.9 4.8-10.8 K/uL Red Blood Count 2.91 L 4.50-6.20 MIL/uL Hemoglobin 8.3 L 14.0-18.0 g/dL Hematocrit 24.4 L 42-54 % Mean Corpuscular Volume 83.8 79-99 fL Mean Corpuscular Hemoglobin 28.5 27.0-33.0 pg Mean Corpuscular Hemoglobin Concent 34.0 32.0-36.0 g/dL Red Cell Distribution Width 13.2 11.0-15.5 % Platelet Count 248 130-400 K/uL Mean Platelet Volume 11.2 H 7.5-10.5 fL Immature Granulocyte % (Auto) 0.4 0-1 % Neutrophils (%) (Auto) 89.0 H 40.0-77.0 % Lymphocytes (%) (Auto) 5.7 L 21.0-51.0 % Monocytes (%) (Auto) 4.5 3.0-13.0 % Eosinophils (%) (Auto) 0.1 0.0-8.0 % Basophils (%) (Auto) 0.3 0.0-5.0 % Neutrophils # (Auto) 8.8 H 1.8-7.7 K/uL Lymphocytes # (Auto) 0.6 L 1.0-4.8 K/uL Monocytes # (Auto) 0.5 0.1-1.0 K/uL Eosinophils # (Auto) 0.01 0.00-0.70 K/uL Basophils # (Auto) 0.03 0.00-0.20 K/uL Absolute Immature Granulocyte (auto 0.04 0-1 K/uL Nucleated Red Blood Cells 0.0 0.0-0.19 % Procalcitonin 70.62 H 0.05-0.5 ng/mL Hemoglobin A1c 13.8 H 4.0-6.0 % Estimated Average Glucose (eAG) 349 H 70-126 mg/dL Test 09/21/24 23:13 09/21/24 22:06 09/21/24 20:57 09/21/24 17:24 Range/Units Serum Alcohol 4 0-10 mg/dL Bedside Glucose Comment Notified Nurse Whole Blood Ketones Quantitative 1.2 H 0.0-0.6 mmol/L White Cell Morphology Comment See comments Test 09/21/24 17:10 Range/Units Influenza Type A Antigen Positive For Type A *A NEGATIVE Influenza Type B Antigen Negative For Type B NEGATIVE SARS-CoV-2, RNA, NAAT NEGATIVE SARS CoV-2 NEGATIVE Group A Streptococcus Rapid negative NEGATIVE Current Medications Medications (Trade) Dose Ordered Sig/Sierra Route PRN Reason Start Time Stop Time Status Last Admin Dose Admin Acetaminophen (TYLenol 325MG TAB) 650 mg Q4H PRN PO MILD PAIN (1-3) 09/21/24 19:30 10/21/24 19:29 09/21/24 22:53 650 MG Acetaminophen (TYLenol 325MG TAB) 650 mg Q6H PRN PO TEMPERATURE GREATER THAN 101.5 09/21/24 19:30 10/21/24 19:29 Albuterol (DUOneb) 1 udvial [id number] IH 09/21/24 22:00 10/21/24 21:59 09/22/24 14:34 1 UDVIAL Aspirin (Aspirin 81mg Ec Tab) 81 mg DAILY PO 09/22/24 09:00 10/22/24 08:59 09/22/24 08:15 81 MG Atorvastatin Calcium (LIPItor 40MG) 40 mg HS PO 09/22/24 21:00 10/22/24 20:59 Azithromycin 250 ml @ 250 mls/hr Q24H IVPB 09/21/24 18:00 09/21/24 18:14 DC Dextrose/Sodium Chloride 1,000 ml @ 0 mls/hr AD IV 09/22/24 00:00 10/22/24 00:00 09/22/24 09:49 150 MLS/HR Doxycycline Hyclate (Doxycycline Hyclate) 100 mg BID PO 09/21/24 21:00 10/01/24 20:59 09/22/24 08:16 100 MG Famotidine (Pepcid 20mg Vial) 10 mg DAILY IV 09/22/24 09:00 10/22/24 08:59 09/22/24 08:15 10 MG Famotidine (Pepcid 20mg Tab) 10 mg Q48H PO 09/21/24 19:30 09/21/24 20:00 DC Furosemide (LASix 40MG VIAL) 80 mg Q12H IV 09/22/24 21:00 10/22/24 20:59 Guaifenesin/ Dextromethorphan (RobiTUSSin DM 200/20MG 10ML) 10 ml Q4H PRN PO COUGH 09/21/24 19:30 10/21/24 19:29 Heparin Sodium (Porcine) (HEParin 5,000 UNIT VIAL) *calculation based on ACTUAL B... AD PRN IV HEPARIN PROTOCOL 09/21/24 19:30 10/21/24 19:29 Heparin Sodium/ Dextrose 250 ml @ 0 mls/hr Q6H IV 09/21/24 19:30 10/21/24 19:29 09/22/24 10:43 14.7 MLS/HR Insulin Human Regular 100 unit/ Sodium Chloride 101 ml @ 0 mls/hr PROTOCOL IV 09/21/24 20:00 10/21/24 19:59 09/21/24 21:01 9.8 MLS/HR Insulin Human Regular 100 unit/ Sodium Chloride 101 ml @ 0 mls/hr PROTOCOL IV 09/22/24 00:00 09/22/24 00:03 DC Magnesium Sulfate 50 ml @ 0 mls/hr PROTOCOL IV 09/22/24 00:00 10/22/24 00:00 Magnesium Sulfate 50 ml @ 0 mls/hr PROTOCOL PRN IV OTH 09/22/24 00:00 09/22/24 00:04 DC 09/21/24 23:52 25 MLS/HR Mannitol 245 ml @ 0 mls/hr AD IV 09/22/24 00:30 10/22/24 00:29 Mannitol 500 ml @ 0 mls/hr AD IV 09/22/24 00:30 09/22/24 14:33 DC Mannitol (Osmitrol 20% 250ml Bag) 49 gm AD IV 09/22/24 00:00 09/22/24 00:28 DC Methylprednisolone Sodium Succinate (Solu-medROL 40MG) 40 mg BID IVP 09/22/24 09:00 10/22/24 08:59 09/22/24 08:14 40 MG Nitroglycerin (Nitroglycerin 1gm Oint) 0.5 inch Q8H TD 09/21/24 19:30 10/21/24 19:29 09/22/24 11:27 0.5 INCH Oseltamivir Phosphate (Tamiflu) 75 mg DAILY PO 09/22/24 09:00 09/27/24 08:59 09/22/24 08:15 75 MG Piperacillin Sod/ Tazobactam Sod 50 ml @ 12.5 mls/hr Q12H IV 09/21/24 21:00 10/01/24 20:59 09/22/24 08:14 12.5 MLS/HR Potassium Chloride 20 meq/ Sodium Chloride 1,010 ml @ 0 mls/hr PROTOCOL IV 09/22/24 00:00 10/22/24 00:00 Potassium Chloride/Dextrose/ Sod Cl 1,000 ml @ 0 mls/hr AD IV 09/22/24 00:00 10/22/24 00:00 Sodium Chloride 1,000 ml @ 100 mls/hr Q10H IV 09/21/24 19:30 10/21/24 19:29 09/22/24 08:14 100 MLS/HR Sodium Chloride 1,000 ml @ 200 mls/hr PROTOCOL IV 09/22/24 00:00 10/22/24 00:00 Vitamin B Complex/ Vit C/Folic Acid (Nephrovite Tablet) 1 cap DAILY PO 09/23/24 09:00 10/23/24 08:59 RUN DATE: 09/22/24 [facility] RUN TIME: [id number] [address], [place] [address] Department of Laboratories CLIA # [id number] Plunger Machine Operator: Jordan Brower DO Specimen Report PATIENT: ADRIANA ABRAHAM ACCT: [id number] LOC: [facility] U: [id number] AGE/SX: 49/M ROOM: ED RE09/21/[address]: EDEL MÉNDEZ MD : 1975 BED: 13 DIS: STATUS: ADM IN TLOC: SPEC: [id number] MARIA INES: 09/22/246 STATUS: RES REQ: [id number] RECD: 09/22/[address]: WILMA HALL CANAL DRIVER SOURCE: SPUTUM ENTR: 09/22/24-[address]: EDEL MÉNDEZ MD SPDC: BRAYDON CONDON MD,SPENCER SOLIS,SHENA CHOI,ARIELA Casper MD ORDERED: RESP CULTURE Procedure Result Manjeet Date-Time GRAM STAIN Final 09/22/24-1529 [facility] GRAM STAIN RESULT: GOOD SPECIMEN [ <10 SEC's/LPF and >25 PMN's/LPF ] 1+ GRAM POSITIVE COCCI RESPIRATORY CULTURE PENDING @ [facility] Test Performed at: [facility] [address], [place], [place] Medical Raimann Machine Operator: German Ortega D.O. DIAGNOSTICS / RADIOLOGY: PATIENT: ADRIANA ABRAHAM MR#: [id number] : 1975 SEX: M AGE: 49 LOCATION: EDHIP ORDER 99 STATUS: ADM IN REPORT#: [id number] SERVICE 56 REASON: acute renal failure ORDERING PHYSICIAN: TERRANCE CHAN CANAL DRIVER PROCEDURE: RENAL - US RENAL SONOGRAM US RENAL SONOGRAM REASON: acute renal failure COMPARISON: None TECHNIQUE: Renal and bladder sonogram was performed. FINDINGS: Right kidney is 11.3 x 4.9 x 4.7 cm, left is 11.5 x 5.5 x 4.4 cm. There is no mass, stone or hydronephrosis. Cortical thickness appears preserved. Echogenicity appears normal. The urinary bladder appears normal as well. IMPRESSION: 1. Normal renal and bladder sonogram. DICTATED BY: ARMANDO FAIR MD DATE: 09/22/24 1127 ELECTRONICALLY SIGNED BY: ARMANDO FAIR MD DATE: 09/22/24 1131 ASSESSMENT: Hyperosmolar Hyperglycemic Syndrome POA NSTEMI POA Influenza bronchopneumonia with sepsis POA Acute Hypoxemic Respiratory Failure POA Acute on chronic renal failure with concern for ATN POA Metabolic acidosis POA Lactic acidosis POA CKD stage 4 POA Uncontrolled Diabetes POA Protein Calorie malnutrition POA PLAN: We will admit patient in ICU Start him on renal diabetic diet We will start NS @ 100 ml / hr and re evaluate Start on Insulin drip using DKA protocol Continue Heparin drip per ACs protocol started by ER We will start patient on Doxycycline po and Zosyn renally dose We will continue Tamiflu 75mg po daily We will start on Aspirin 81 mg po daily We will start on Famotidine 20 mg IV daily for GI prophylaxis We will trend troponin Q6H x3 We will add prn medication for fever,pain,cough and nausea Home medication reconciled Follow up Cardiology, critical Care, Nephrology recommendations Will follow up U/a and cultures We will request labs in am Further orders to follow depending on above results ATTESTATION BY PHYSICIAN I have seen and examined the patient. I reviewed the documentation, medical decision making, and treatment plan as noted by the resident provider above. I agree with the findings and plan of care. Edel Méndez MD, NIHITHA MD Sep 22, 2024 16:02
[2024-09-22 16:16] LABS: POTASSIUM 4.4 mmol/L (3.5-5.1)
[2024-09-22 16:28] LABS: CREATININE 8.3 mg/dL (0.5-1.3)
[2024-09-22 18:41] LABS: AMPHET/METH SCREEN,URINE NEGATIVE (NEGATIVE); BARBITURATE SCREEN, URINE NEGATIVE (NEGATIVE); BENZODIAZEPINES SCREEN,URINE NEGATIVE (NEGATIVE); CANNABINOID SCREEN,URINE NEGATIVE (NEGATIVE); COCAINE SCREEN,URINE NEGATIVE (NEGATIVE); OPIATE SCREEN,URINE NEGATIVE (NEGATIVE); PHENCYCLIDINE SCREEN,URINE NEGATIVE (NEGATIVE)
[2024-09-22 20:06] LABS: POTASSIUM 4.4 mmol/L (3.5-5.1)
[2024-09-22 20:10] LABS: CREATININE 8.2 mg/dL (0.5-1.3)
[2024-09-22] MEDS ORDERED: RENAL DOSE IV SCH (20:30)
[2024-09-22] MEDS ORDERED: chlordiazePOXIDE HCL 25 MG CAP PO PRN (20:30)
[2024-09-22] MEDS ORDERED: PHARMACY COMMUNICATION MISC PRN (20:30)
--- NOTE | 2024-09-22 20:31 | PN ---
[facility] PROGRESS NOTE Date Patient Seen: Sep 22, 2024 Time of Visit: 20:17 Supervising Physician: Dr. Dong Primary Care Physician: Gama Acosta Outpatient Specialists: [ ] Inpatient Consults: Cardiology, nephrology and critical care team PROBLEM LIST: ACUTE HYPOXEMIC RESPIRATORY FAILURE, POA NSTEMI, POA BILATERAL PNEUMONIA, POA INFLUENZA A INFECTION, POA SEPSIS DUE TO BILATERAL PNEUMONIA AND INFLUENZA A INFECTION, POA ACUTE HYPOXEMIC RESPIRATORY FAILURE, POA ESRD, POA DKA, POA ACUTE METABOLIC ACIDOSIS IN THE CONTEXT OF DKA, POA HYPERKALEMIA IN THE CONTEXT OF CHRONIC KIDNEY INJURY, POA MORBID OBESITY, POA INTERVAL HISTORY: 09/22/2024: At the time my evaluation, the patient was in the emergency department awaiting bed assignment. The staff nurse reports no acute events overnight. The patient was on a Oxymizer with optimal SpO2. He was normotensive without the need for pressor therapy. There was no complaint of chest pain. There was no abdominal pain, nausea vomiting or diarrhea. The patient continued on a insulin drip per the DKA protocol. He was started on antibiotic and antiviral therapy for management of his condition. Review of labs today showed no major concern on CBC. Chemistry panel did show a sodium of 135, chloride of 100 and a CO2 of 20 with a anion gap of 15. Blood glucose remains elevated in the 300s. No new complaint. REVIEW OF SYSTEMS: 12 point ROS reviewed with patient. Pertinent positives mentioned above. Otherwise negative. PHYSICAL EXAM: GENERAL: alert, weak, awake oriented x 3 HEENT: EOMI, Sclera non icteric, moist mucosa NECK: Supple, no JVD, trachea midline LUNGS: Diminished breath sounds bilaterally. No wheezes HEART: Regular rate and rhythm. Normal S1 and S2, without murmurs ABD: Abdomen soft, nontender. Bowel sounds present EXT: No clubbing cyanosis or edema NEURO: Alert and oriented to person, follows commands Vital Signs (last 8hr) Date Time Temp Pulse Resp B/P (MAP) Pulse Ox O2 Delivery O2 Flow Rate FiO2 09/22/24 19:43 98.4 113 18 125/73 98 Aerosol Mask+ 5.0 50 09/22/24 19:15 105 18 09/22/24 19:15 105 18 N/Cannula Oximizer Hi LPM 5.0 40 09/22/24 18:05 98.4 108 19 134/77 95 N/C Oxymizer Hi LPM* 7 60 09/22/24 17:10 98.4 109 20 139/81 97 N/C Oxymizer Hi LPM* 7 60 09/22/24 16:15 98.4 111 20 125/64 95 N/C Oxymizer Hi LPM* 7 60 09/22/24 15:15 98.4 109 18 125/64 98 Aerosol Mask+ 7 60 09/22/24 14:36 109 20 N/Cannula Oximizer Hi LPM 7.0 09/22/24 14:36 109 20 09/22/24 14:05 98.6 110 19 141/90 95 N/C Oxymizer Hi LPM* 7 60 LABS: Hematology Labs: Test 09/22/24 04:00 09/21/24 17:24 Range/Units White Blood Count 9.9 4.8-10.8 K/uL Red Blood Count 2.91 L 4.50-6.20 MIL/uL Hemoglobin 8.3 L 14.0-18.0 g/dL Hematocrit 24.4 L 42-54 % Mean Corpuscular Volume 83.8 79-99 fL Mean Corpuscular Hemoglobin 28.5 27.0-33.0 pg Mean Corpuscular Hemoglobin Concent 34.0 32.0-36.0 g/dL Red Cell Distribution Width 13.2 11.0-15.5 % Platelet Count 248 130-400 K/uL Mean Platelet Volume 11.2 H 7.5-10.5 fL Immature Granulocyte % (Auto) 0.4 0-1 % Neutrophils (%) (Auto) 89.0 H 40.0-77.0 % Lymphocytes (%) (Auto) 5.7 L 21.0-51.0 % Monocytes (%) (Auto) 4.5 3.0-13.0 % Eosinophils (%) (Auto) 0.1 0.0-8.0 % Basophils (%) (Auto) 0.3 0.0-5.0 % Neutrophils # (Auto) 8.8 H 1.8-7.7 K/uL Lymphocytes # (Auto) 0.6 L 1.0-4.8 K/uL Monocytes # (Auto) 0.5 0.1-1.0 K/uL Eosinophils # (Auto) 0.01 0.00-0.70 K/uL Basophils # (Auto) 0.03 0.00-0.20 K/uL Absolute Immature Granulocyte (auto 0.04 0-1 K/uL Nucleated Red Blood Cells 0.0 0.0-0.19 % White Cell Morphology Comment See comments Chemistry Labs: Test 09/22/24 19:17 09/22/24 19:09 09/22/24 18:07 09/22/24 09:13 Range/Units Whole Blood Glucose 291 H 70-110 MG/DL Sodium Level 135 L 136-145 mmol/L Potassium Level 4.4 3.5-5.1 mmol/L Chloride Level 100 L 101-111 mmol/L Carbon Dioxide Level 17 L 21-32 mmol/L Blood Urea Nitrogen 98 *H 7-18 mg/dL Creatinine 8.2 *H 0.5-1.3 mg/dL Glomerular Filtration Rate Calc 7 >90 mL/min Random Glucose 317 H 70-105 mg/dL Total Calcium 8.0 L 8.5-10.1 mg/dL Bedside Glucose Comment Notified Nurse Lactic Acid Level 2.3 0.8-2.5 mmol/L Troponin I High Sensitivity 6392 *H 4-75 ng/L Test 09/22/24 04:56 09/22/24 04:00 09/22/24 00:48 09/21/24 20:57 Range/Units Magnesium Level 2.30 1.80-2.40 mg/dL Total Bilirubin 0.4 0.2-1.0 mg/dL Aspartate Amino Transf (AST/SGOT) 45 H 10-37 U/L Alanine Aminotransferase (ALT/SGPT) 25 12-78 U/L Alkaline Phosphatase 73 50-136 U/L Total Protein 6.8 6.0-8.3 g/dL Albumin 1.8 L 3.5-5.0 g/dL Triglycerides Level 221 H 30-200 mg/dL Cholesterol Level 242 #H <200 mg/dL LDL Cholesterol 149 H 0-99 mg/dL HDL Cholesterol 45 29-71 mg/dL Procalcitonin 70.62 H 0.05-0.5 ng/mL Hemoglobin A1c 13.8 H 4.0-6.0 % Estimated Average Glucose (eAG) 349 H 70-126 mg/dL Whole Blood Ketones Quantitative 1.2 H 0.0-0.6 mmol/L Coagulation Labs: Test 09/22/24 19:09 09/22/24 09:13 Range/Units Activated Partial Thromboplast Time 56.8 #H 26.3-35.5 SEC Prothrombin Time 10.9 9.6-11.6 SEC Prothromb Time International Ratio 0.97 0.85-1.15 DIAGNOSTICS / RADIOLOGY RESULTS: [ ] PLAN 09/22/2024: For now, we are going to continue current management for the patient. We are going to continue with Oxymizer and adjust as necessary to maintain SpO2 above 92%. We will request a sputum sample for culture. We will monitor for any complaint of chest pain or cardiac events on monitor. Because of the elevated troponins, I am going to request a 2D echo to evaluate the structure and function of the heart. We will also put the patient on metoprolol 12.5 b.i.d. and we will adjust as necessary, we will also start on fish oil2 g b.i.d. we will hold atorvastatin for now. We will hold oral feedings for now until the gap is closed and the patient is out of DKA. He will continue on the insulin drip and we will start the patient on Lantus 10 units subQ b.i.d.. We will continue to monitor the blood glucose trend. Antibiotic therapy as ordered with Zosyn, doxycycline and antiviral therapy with Tamiflu renally dosed. Considering the patient is a alcohol drinker, we will start the CIWA protocol, we will put the patient on banana bag, multivitamins and we will continue with IV fluids at 100 cc/hour. We will monitor the patient's progress and response to management. We will continue to provide general supportive care, GI and DVT prophylaxis. Further orders per attending MD and hospital course. NEURO: Minimize central acting medications as possible. Fall Precautions. Well lighted room through the day and minimize interruptions through the night to prevent acute delirium. PULMONARY: Supplemental 02 as needed DuoNebs every 6 hours Robitussin 10 mL q.4h p.r.n. for cough Titrate Fio2 to keep Spo2 > or = 90% DuoNebs and CPT as needed IS hourly while awake for pulmonary hygiene Out of bed to chair as tolerated CARDIOVASCULAR: Follow hemodynamics. Titrate vasopressor to keep MAP >65 or systolic blood pressure >95mmHg Aspirin 81 mg p.o. daily Atorvastatin 40 mg p.o. at bedtime Serial troponin level Wort Extractor consulted DIPS: Heparin drip Insulin drip. LINES: PIV GI & NUTRITION: Continue nutritional support Aspirations precautions Prokinetic agents and laxatives as needed Keep patient NPO KIDNEYS & ELECTROLYTES: Strict monitoring of intake and output Nephrology is consulted Obtain UA Daily weights Avoid nephrotoxic agents Monitor electrolytes and replace as needed Goal urine output of 30mL/hr or 0.5mL/kg/hr Urine output: [ ] Fluid Balance: [ ] ENDOCRINE: Maintain blood glucose between 100-180 at all times. Insulin sliding scale for blood glucose management Insulin drip per DKA protocol INFECTIOUS DISEASE: Trend temperature. Ritter-culture if febrile. Micro: [ ] Antibiotics: Zosyn 3.375 g IV every 8 hours and doxycycline 100 mg IV every 12 hours HEMATOLOGY & COAGULATION: Monitor H&H. Keep Hgb > 7 Transfuse 1 unit of PRBC for Hgb < 7 Transfuse 1 pack of platelets of platelets < 20, 000 Watch for any signs and symptoms of bleeding SKIN: Pressure ulcer prevention per facility protocol Rehab: PT/OT Prophylaxis: GI: Famotidine DVT: Heparin Code Status: Full Resuscitation Disposition: [Keep in ICU ] Other: Total patient care time exceeds 35 minutes excluding all procedures. Case was discussed and seen with my supervising physician. The above plan was formulated and agreed upon. FELIX BARBOSA NP Sep 22, 2024 20:31
[2024-09-22] MEDS: furoSEMIDE 40MG VIAL IV SCH (20:42)
[2024-09-22] MEDS: FISH OIL 1000 MG/CAP PO SCH (20:42)
[2024-09-22] MEDS: THIAMINE HCL 100 MG, FOLic ACID 5 MG/ML VIAL 1 MG, M.V.I. IV [ADULT] 10 ML in 0.9%NACL ... IV SCH (20:43)
[2024-09-22] MEDS: atorVAStatin 40 MG TABLET ONE (20:44)
[2024-09-22] MEDS: VANCOMYCIN 1G/250ML KIT 250 ML IV SCH (20:48)
[2024-09-22] MEDS: metoPROLOL tartRATE 25 MG TAB PO SCH (20:52)
[2024-09-22] MEDS ORDERED: atorVAStatin 40 MG TABLET PO SCH (21:00)
[2024-09-22] MEDS: INSULIN GLARgine 100 UNITS/ML 10 ML VIAL SQ SCH (21:30)
[2024-09-23] VITALS (22 sets, daily range): BP systolic 93–136; BP diastolic 62–75; PULSE 103–115; RESP 20–25; TEMP 97.7–98.1; O2SAT 93–98
[2024-09-23 01:15] LABS: POTASSIUM 4.4 mmol/L (3.5-5.1)
[2024-09-23 01:21] LABS: CREATININE 8.4 mg/dL (0.5-1.3)
[2024-09-23 06:17] LABS: INR <= 0.93 (0.85-1.15); PROTHROMBIN TIME 10.3 SEC (9.6-11.6)
[2024-09-23 06:18] LABS: PARTIAL THROMBOPLASTIN TIME 53.7 SEC (26.3-35.5)
[2024-09-23 07:27] LABS: BASOPHILS # (AUTO) 0.02 K/uL (0.00-0.20); BASOPHILS % (AUTO) 0.2 % (0.0-5.0); HEMATOCRIT 23.1 % (42-54); IMMATURE GRANULOCYTE ABSOLUTE 0.12 K/uL (0-1); LYMPHOCYTES # (AUTO) 0.4 K/uL (1.0-4.8); LYMPHOCYTES % (AUTO) 3.8 % (21.0-51.0); MEAN CORPUSCULAR HEMOGLOBIN 27.8 pg (27.0-33.0); MEAN CORPUSCULAR HGB CONC 32.9 g/dL (32.0-36.0); MEAN CORPUSCULAR VOLUME 84.6 fL (79-99); MONOCYTES # (AUTO) 0.4 K/uL (0.1-1.0); MONOCYTES % (AUTO) 3.7 % (3.0-13.0); NEUTROPHILS # (AUTO) 10.4 K/uL (1.8-7.7); NEUTROPHILS % (AUTO) 91.3 % (40.0-77.0); PLATELET COUNT (AUTO) 178 K/uL (130-400); RED BLOOD CELL COUNT(AUTO) 2.73 MIL/uL (4.50-6.20); RED CELL DISTRIBUTION WIDTH 13.4 % (11.0-15.5); WHITE BLOOD COUNT (AUTO) 11.4 K/uL (4.8-10.8)
[2024-09-23 07:46] LABS: BILIRUBIN,TOTAL 0.3 mg/dL (0.2-1.0); PHOSPHORUS 6.9 mg/dL (2.5-4.9); POTASSIUM 4.6 mmol/L (3.5-5.1); THYROID STIMULATING HORMONE 0.7 uIU/mL (0.36-3.74); TOTAL PROTEIN, SERUM 6.6 g/dL (6.0-8.3)
[2024-09-23] MEDS ORDERED: VANCOMYCIN 500MG+NS 100ML IVPB IV SCH (08:00)
[2024-09-23 08:03] LABS: CREATININE 8.4 mg/dL (0.5-1.3)
[2024-09-23] MEDS: FERROUS SULFATE 325 MG TABLET.DR PO SCH (08:39)
[2024-09-23] MEDS: nifeDIPine ER 30 MG TAB PO SCH (08:39)
[2024-09-23] MEDS: Vitamin B Complex/Vit C/Folic Acid PO SCH (08:39)
[2024-09-23] MEDS: MULTIVITAMIN TABLET PO SCH (08:39)
[2024-09-23] MEDS: SODIUM BICARB 50MEQ 50ML VIAL IV ONE (08:40)
[2024-09-23] MEDS: ceFEPime HCL 1 GM VIAL IVPB SCH (08:40)
[2024-09-23] MEDS ORDERED: NON-FORMULARY MEDICATION 1 EACH (Folic Acid/Vitamin B Comp W-C (Rena-Vite Tablet) 1 TAB) PO SCH (09:00)
--- NOTE | 2024-09-23 09:23 | PN ---
[facility] PROGRESS NOTE Date of Service: Sep 23, 2024 Time of Service: 09:23 SUBJECTIVE: This is a 49-year-old male with past medical history of CKD not on hemodialysis, diabetes, hypertension, hyperlipidemia and obesity who presents to the ED for complaints of cough and chest congestion which started last Sunday and getting worse on Sunday. Patient reports coughing up pinkish colored thick phlegm, loss of appetite and on Sunday started not eating unable to sleep, vomiting and having chest pain triggered by persistent coughing he said.Patient reports having soreness due to hard cough he said.Patient reports having sweeling on both lower extremities and started having shortness of breath and today he started having non bloody diarrhea. Neela was at bedside during my evaluation. 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 Seen and examined patient in the Er awake,alert and coherent,appears weak looking.Patient denies fever,palpitation ,dizziness ,sore throat and headache. Latest vital signs temperature 98.1, heart rate 108, respiration 30 blood pressure 130/68 saturation 91% on 4 L nasal cannula. Labs: WBC 11.2, hemoglobin 9, hematocrit 27, platelet count 238, neutrophils 88. PH 7.32, CO2 26, PO2 49.6, bicarb 13, PO2 80 base excess -11.3. Sodium 129, potassium 5.9, chloride 93, CO2 19, BUN 88, creatinine 8.2, GFR seven glucose 876 , lactic acid 3.0-3.2, troponin 5531 albumin 2.1. Influenza A positive influenza B negative SARs COVID negative. Strep A negative. Chest x-ray result revealed extensive bilateral mid to lower lung pneumonia right greater than left. First ECG result revealed sinus tachycardia heart rate 121 probable left atrial enlargement repolarization abnormal suggest ischemia diffuse leads ST-elevation consider anterior injury. Second EKG result revealed sinus tachycardia repolarization abnormality suggest ischemia diffuse leads borderline ST elevation anterior leads heart rate 108. While in the ER patient received Tamiflu 75 mg p.o., 1 L NS bolus, Lopressor 5 mg IV, insulin 10 units IV, Zosyn IV, Zofran 4 mg IV and Phenergan codeine 10 mL p.o. we will admit patient in ICU for further medical management. 09/22/24 patient was seen and examined in ED bed 13. Today his vitals are 145/84, respiratory rate 22, SpO2 99% on 7 L nasal cannula, pulse rate 110. He complaints of cough with sputum, but says it is getting better than yesterday, denies shortness of breath or chest pain or dizziness. Nephrology was consulted and recommended to start Lasix 80 mg IV b.i.d and to start renal diabetic diet. He is currently on zosyn , doxycycline and Tamiflu. He is on IV insulin drip and glucose has come down from 8 0s to 400s. Pending Cardiology recommendations. He requires sleep study once he is discharged. 09/23/24 Patient was seen and examined in ED bed 13. Today his vitals are BP 132/78, IL 105, SpO2 96% on 4 L nasal cannula. Patient says his cough is getting better, no chest pain but complains of mild left lower abdominal pain and bloating, no bowel movement since yesterday morning. His renal function continues to decline , his creatinine is up from 8.1 to 8.4. Nephrology recommended PermCath to be placed by IR for hemodialysis. Cardiology recommended to continue aspirin 81 mg daily and metoprolol tartrate 12.5 mg and possible angiogram to assess coronary anatomy as his EKG showed sinus tachycardia, LAE and diffuse ischemia. Pending 2D echo results. REVIEW OF SYSTEMS CONSTITUTIONAL: Denies fevers, chills, or night sweats. No unintentional weight loss reported. NEUROLOGICAL: Denies headache, amaurosis fugax, motor weakness, sensory deficit, vertigo/spinning sensation, gait abnormalities, or tremors. ENT: No hearing loss, otalgia, otorrhea, rhinitis, rhinorrhea, hoarseness, or sore throat. CARDIOVASCULAR: Complaints of orthopnea shortness of breaths and chest pain Denies paroxysmal nocturnal dyspnea, palpitations, life-threatening arrhythmias, claudication. PULMONARY: Complaints of productive cough , pleuritic chest pain and shortness of breaths SLEEP: Complains of unable to sleep Denies morning headaches, daytime somnolence or napping. Denies waking from sleep. Denies knowledge of snoring. GASTROINTESTINAL: Complaints of loss of appetite, vomiting and diarrhea Denies any type of dysphagia to either liquids or solids. Denies nausea, vomiting, pyrosis, early satiety, abdominal pain, diarrhea, constipation, or changes in stool consistency or caliber. Denies coffee-ground emesis, hematemesis, hematochezia, or melanotic stools. GENITOURINARY: Denies frequency, urgency, nocturia, hematuria or incontinence (Storage/Irritative symptoms.) Low urinary stream, straining to void, urinary intermittency or hesitancy, splitting of the voiding stream, terminal dribbling. ENDOCRINOLOGIC: Denies polyuria, polydipsia, polyphagia or heat/cold intolerances. Patient reports not taking medications for diabetes because he was not eating. HEMATOLOGIC: Denies thrombophilia/previous clots, or coagulopathy/bleeding disorders. ONCOLOGIC: Denies personal history of malignancy. DERMATOLOGIC: Denies rashes or pruritus. PSYCHIATRIC: Denies any suicidal or homicidal ideation. Denies hallucinations. PHYSICAL EXAM GENERAL APPEARANCE: The patient is awake, alert, and oriented appears generally weak NEUROLOGICAL: Cranial nerves II-XII grossly intact. Motor is 5/5 in bilateral upper and lower extremities proximal to distal. No sensory deficits. HEENT: Face is symmetric. Pupils are equal and reactive. Extraocular movements are intact. NECK: Supple. No JVD. No thyromegaly. No submental, submandibular, pre- /postauricular, occipital or supraclavicular lymphadenopathy. CHEST: Normal chest expansion. No Telemetry. LUNGS: . Diminished lung sounds to bilateral lung james CARDIOVASCULAR: Tachycardic Regular. S1 and S2 normal. No appreciable rubs, murmurs or gallops. ABDOMEN: Round and firmed There is no rebound, voluntary guarding, or rigidity. : Deferred. No Del Cid. EXTREMITIES: Bilateral lower extremity edema No clubbing. Good capillary refill. SKIN: No skin breakdown. Vital Signs (last 8hr) Date Time Temp Pulse Resp B/P (MAP) Pulse Ox O2 Delivery O2 Flow Rate FiO2 09/23/24 08:09 98.1 114 20 132/78 96 Nasal Cannula* 4 36 09/23/24 06:55 105 21 N/Cannula Oximizer Hi LPM 5.0 09/23/24 06:54 105 21 09/23/24 06:08 98.2 107 20 136/80 98 Nasal Cannula* 5.0 50 N/C Oxymizer Hi LPM* 09/23/24 05:07 98.2 109 20 141/86 96 Nasal Cannula* 5.0 50 N/C Oxymizer Hi LPM* 09/23/24 02:27 98.2 108 20 140/80 96 Aerosol Mask+ 5.0 50 09/23/24 01:49 103 20 N/Cannula Oximizer Hi LPM 5.0 40 09/23/24 01:49 103 20 LABS: Laboratory: Test 09/23/24 08:42 09/23/24 07:08 09/23/24 05:55 09/22/24 18:07 Range/Units Whole Blood Glucose 262 H 70-110 MG/DL White Blood Count 11.4 H 4.8-10.8 K/uL Red Blood Count 2.73 L 4.50-6.20 MIL/uL Hemoglobin 7.6 L 14.0-18.0 g/dL Hematocrit 23.1 L 42-54 % Mean Corpuscular Volume 84.6 79-99 fL Mean Corpuscular Hemoglobin 27.8 27.0-33.0 pg Mean Corpuscular Hemoglobin Concent 32.9 32.0-36.0 g/dL Red Cell Distribution Width 13.4 11.0-15.5 % Platelet Count 178 # 130-400 K/uL Mean Platelet Volume 12.1 H 7.5-10.5 fL Immature Granulocyte % (Auto) 1.0 0-1 % Neutrophils (%) (Auto) 91.3 H 40.0-77.0 % Lymphocytes (%) (Auto) 3.8 L 21.0-51.0 % Monocytes (%) (Auto) 3.7 3.0-13.0 % Eosinophils (%) (Auto) 0.0 0.0-8.0 % Basophils (%) (Auto) 0.2 0.0-5.0 % Neutrophils # (Auto) 10.4 H 1.8-7.7 K/uL Lymphocytes # (Auto) 0.4 L 1.0-4.8 K/uL Monocytes # (Auto) 0.4 0.1-1.0 K/uL Eosinophils # (Auto) 0.00 0.00-0.70 K/uL Basophils # (Auto) 0.02 0.00-0.20 K/uL Absolute Immature Granulocyte (auto 0.12 0-1 K/uL Nucleated Red Blood Cells 0.0 0.0-0.19 % Sodium Level 138 136-145 mmol/L Potassium Level 4.6 3.5-5.1 mmol/L Chloride Level 104 101-111 mmol/L Carbon Dioxide Level 17 L 21-32 mmol/L Blood Urea Nitrogen 98 *H 7-18 mg/dL Creatinine 8.4 *H 0.5-1.3 mg/dL Glomerular Filtration Rate Calc 7 >90 mL/min Random Glucose 261 H 70-105 mg/dL Total Calcium 8.1 L 8.5-10.1 mg/dL Phosphorus Level 6.9 H 2.5-4.9 mg/dL Total Bilirubin 0.3 0.2-1.0 mg/dL Aspartate Amino Transf (AST/SGOT) 28 10-37 U/L Alanine Aminotransferase (ALT/SGPT) 22 12-78 U/L Alkaline Phosphatase 71 50-136 U/L Total Protein 6.6 6.0-8.3 g/dL Albumin 2.0 L 3.5-5.0 g/dL Thyroid Stimulating Hormone (TSH) 0.70 # 0.36-3.74 uIU/mL Prothrombin Time 10.3 9.6-11.6 SEC Prothromb Time International Ratio <= 0.93 0.85-1.15 Activated Partial Thromboplast Time 53.7 H 26.3-35.5 SEC Bedside Glucose Comment Notified Nurse Test 09/22/24 15:00 09/22/24 09:13 09/22/24 05:08 09/22/24 04:56 Range/Units Urine Color LIGHT-ORANGE YELLOW Urine Appearance TURBID CLEAR Urine pH 6.0 5.0-8.0 Urine Specific [place] 1.013 1.001-1.031 Urine Protein 600 H NEGATIVE mg/dL Urine Glucose (UA) 500 H NEGATIVE mg/dL Urine Ketones NEGATIVE NEGATIVE mg/dL Urine Occult Blood LARGE H NEGATIVE Urine Nitrate NEGATIVE NEGATIVE Urine Bilirubin NEGATIVE NEGATIVE mg/dL Urine Urobilinogen 0.2 0.2-1.0 mg/dL Urine Leukocyte Esterase 75 H NEGATIVE [place]/uL Urine RBC TNTC H 0-1 /HPF Urine WBC 11-25 H 0-1 /HPF Urine Squamous Epithelial Cells MANY 0-2 /HPF Urine Bacteria FEW None Seen /HPF Urine Opiates Screen NEGATIVE NEGATIVE Urine Barbiturates Screen NEGATIVE NEGATIVE Urine Phencyclidine Screen NEGATIVE NEGATIVE Urine Amphetamines Screen NEGATIVE NEGATIVE Urine Benzodiazepines Screen NEGATIVE NEGATIVE Urine Cocaine Screen NEGATIVE NEGATIVE Urine Marijuana (THC) Screen NEGATIVE NEGATIVE Lactic Acid Level 2.3 0.8-2.5 mmol/L Troponin I High Sensitivity 6392 *H 4-75 ng/L Blood Gas Specimen Type Arterial Arterial Blood pH 7.344 L 7.350-7.450 Arterial Blood Partial Pressure CO2 31 L 35-48 mmHg Arterial Blood Partial Pressure O2 75.9 L 83.0-108.0 mmHg Arterial Blood HCO3 16.6 L 21.0-28.0 mmol/L Arterial Blood Oxygen Saturation 93.5 L 94.0-98.0 % Arterial Blood Base Excess -8.2 L -2.0-3.0 mmol/L Hemoglobin (Blood Gas) 9.1 L 13.5-17.5 g/dL Sodium (Blood Gas) 137 136-145 MMOL/L Bedside Potassium (Blood Gas) 5.0 H 3.4-4.5 MMOL/L Bedside Chloride (Blood Gas) 106 98-107 MMOL/L Bedside Glucose (Blood Gas) 358 H 65-95 MG/DL Bedside Ionized Calcium (Blood Gas) 1.11 L 1.15-1.33 MMOL/L Bedside Lactic Acid (Blood Gas) 1.49 H 0.36-0.75 MMOL/L Blood Gas Temperature 37.0 35.5-37.0 CELSIUS Blood Gas Flow-by 11.00 0.00-15.00 L/min Blood Gas Vent Mode 11 OXI ROOM AIR FiO2 70.0 % Blood Gas Specimen Comment LR RN Magnesium Level 2.30 1.80-2.40 mg/dL Triglycerides Level 221 H 30-200 mg/dL Cholesterol Level 242 #H <200 mg/dL LDL Cholesterol 149 H 0-99 mg/dL HDL Cholesterol 45 29-71 mg/dL Test 09/22/24 04:00 09/22/24 00:48 09/21/24 23:13 09/21/24 20:57 Range/Units Procalcitonin 70.62 H 0.05-0.5 ng/mL Hemoglobin A1c 13.8 H 4.0-6.0 % Estimated Average Glucose (eAG) 349 H 70-126 mg/dL Serum Alcohol 4 0-10 mg/dL Whole Blood Ketones Quantitative 1.2 H 0.0-0.6 mmol/L Test 09/21/24 17:24 09/21/24 17:10 Range/Units White Cell Morphology Comment See comments Influenza Type A Antigen Positive For Type A *A NEGATIVE Influenza Type B Antigen Negative For Type B NEGATIVE SARS-CoV-2, RNA, NAAT NEGATIVE SARS CoV-2 NEGATIVE Group A Streptococcus Rapid negative NEGATIVE Current Medications Medications (Trade) Dose Ordered Sig/Sierra Route PRN Reason Start Time Stop Time Status Last Admin Dose Admin Acetaminophen (TYLenol 325MG TAB) 650 mg Q4H PRN PO MILD PAIN (1-3) 09/21/24 19:30 10/21/24 19:29 09/21/24 22:53 650 MG Acetaminophen (TYLenol 325MG TAB) 650 mg Q6H PRN PO TEMPERATURE GREATER THAN 101.5 09/21/24 19:30 10/21/24 19:29 Albuterol (DUOneb) 1 udvial [id number] IH 09/21/24 22:00 10/21/24 21:59 09/23/24 06:53 1 UDVIAL Aspirin (Aspirin 81mg Ec Tab) 81 mg DAILY PO 09/22/24 09:00 10/22/24 08:59 09/23/24 08:49 81 MG Atorvastatin Calcium (LIPItor 40MG) 40 mg HS PO 09/22/24 21:00 09/22/24 20:17 DC Azithromycin 250 ml @ 250 mls/hr Q24H IVPB 09/21/24 18:00 09/21/24 18:14 DC Cefepime HCl (MAXipime 1 GM vial) 1 gm Q24H IVPB 09/23/24 08:30 10/03/24 08:29 09/23/24 08:40 1 GM Chlordiazepoxide HCl (LIBrium 25 MG CAP) 25 mg Q2H PRN PO ALCOHOL WITHDRAWAL PROTOCOL 09/22/24 20:30 09/29/24 20:29 Chlordiazepoxide HCl (LIBrium 25 MG CAP) 50 mg Q1H PRN PO ALCOHOL WITHDRAWAL PROTOCOL 09/22/24 20:30 09/29/24 20:29 Dextrose/Sodium Chloride 1,000 ml @ 0 mls/hr AD IV 09/22/24 00:00 10/22/24 00:00 09/22/24 09:49 150 MLS/HR Doxycycline Hyclate (Doxycycline Hyclate) 100 mg BID PO 09/21/24 21:00 10/01/24 20:59 09/23/24 08:39 100 MG Famotidine (Pepcid 20mg Vial) 10 mg DAILY IV 09/22/24 09:00 10/22/24 08:59 09/23/24 08:40 10 MG Famotidine (Pepcid 20mg Tab) 10 mg Q48H PO 09/21/24 19:30 09/21/24 20:00 DC Ferrous Sulfate (Ferrous Sulfate) 325 mg DAILY PO 09/23/24 09:00 10/23/24 08:59 09/23/24 08:39 325 MG Fish Oil (Fish Oil 1000 Mg/Cap) 2,000 mg BID PO 09/22/24 21:00 10/22/24 20:59 09/23/24 08:39 2,000 MG Furosemide (LASix 40MG VIAL) 80 mg Q12H IV 09/22/24 21:00 10/22/24 20:59 09/23/24 08:39 80 MG Guaifenesin/ Dextromethorphan (RobiTUSSin DM 200/20MG 10ML) 10 ml Q4H PRN PO COUGH 09/21/24 19:30 10/21/24 19:29 Heparin Sodium (Porcine) (HEParin 5,000 UNIT VIAL) *calculation based on ACTUAL B... AD PRN IV HEPARIN PROTOCOL 09/21/24 19:30 10/21/24 19:29 Heparin Sodium/ Dextrose 250 ml @ 0 mls/hr Q6H IV 09/21/24 19:30 10/21/24 19:29 09/22/24 10:43 14.7 MLS/HR Insulin Glargine (LANtus 100 UNITS/ML 10 ML VIAL) 10 units BID@0730,2100 SQ 09/22/24 21:00 10/22/24 20:59 09/23/24 08:41 10 UNITS Insulin Human Regular 100 unit/ Sodium Chloride 101 ml @ 0 mls/hr PROTOCOL IV 09/21/24 20:00 10/21/24 19:59 09/21/24 21:01 9.8 MLS/HR Insulin Human Regular 100 unit/ Sodium Chloride 101 ml @ 0 mls/hr PROTOCOL IV 09/22/24 00:00 09/22/24 00:03 DC Magnesium Sulfate 50 ml @ 0 mls/hr PROTOCOL IV 09/22/24 00:00 10/22/24 00:00 Magnesium Sulfate 50 ml @ 0 mls/hr PROTOCOL PRN IV OTH 09/22/24 00:00 09/22/24 00:04 DC 09/21/24 23:52 25 MLS/HR Mannitol 245 ml @ 0 mls/hr AD IV 09/22/24 00:30 09/22/24 20:17 DC Mannitol 500 ml @ 0 mls/hr AD IV 09/22/24 00:30 09/22/24 14:33 DC Mannitol (Osmitrol 20% 250ml Bag) 49 gm AD IV 09/22/24 00:00 09/22/24 00:28 DC Methylprednisolone Sodium Succinate (Solu-medROL 40MG) 40 mg BID IVP 09/22/24 09:00 10/22/24 08:59 09/23/24 08:40 40 MG Metoprolol Tartrate (loprESSOR) 12.5 mg BID PO 09/22/24 21:00 10/22/24 20:59 09/23/24 08:40 12.5 MG Miscellaneous Medication (Folic Acid/ Vitamin B Comp W-C (I[place] Tablet)) 1 tab DAILY PO 09/23/24 09:00 09/22/24 15:56 DC Multivitamins Therapeutic (Multivitamin Tablet) 1 tab DAILY PO 09/23/24 09:00 10/23/24 08:59 09/23/24 08:39 1 TAB Nifedipine (adALAT 30MG) 60 mg DAILY PO 09/23/24 09:00 10/23/24 08:59 09/23/24 08:39 60 MG Nitroglycerin (Nitroglycerin 1gm Oint) 0.5 inch Q8H TD 09/21/24 19:30 10/21/24 19:29 09/23/24 03:53 0.5 INCH Oseltamivir Phosphate (Tamiflu) 75 mg DAILY PO 09/22/24 09:00 09/27/24 08:59 09/23/24 08:38 75 MG Pharmacy Profile Note (Pharmacy Communication) 1 each PROTOCOL PRN MISC ETOH Withdrawal Score changes 09/22/24 20:30 09/29/24 20:29 Piperacillin Sod/ Tazobactam Sod 50 ml @ 12.5 mls/hr Q12H IV 09/21/24 21:00 09/23/24 08:06 DC 09/22/24 20:43 12.5 MLS/HR Potassium Chloride 20 meq/ Sodium Chloride 1,010 ml @ 0 mls/hr PROTOCOL IV 09/22/24 00:00 10/22/24 00:00 Potassium Chloride/Dextrose/ Sod Cl 1,000 ml @ 0 mls/hr AD IV 09/22/24 00:00 10/22/24 00:00 Sodium Chloride 1,000 ml @ 100 mls/hr Q10H IV 09/21/24 19:30 10/21/24 19:29 09/23/24 02:31 100 MLS/HR Sodium Chloride 1,000 ml @ 200 mls/hr PROTOCOL IV 09/22/24 00:00 10/22/24 00:00 Thiamine HCl 100 mg/Folic Acid 1 mg/Multivitamins/ Minerals 10 ml/ Sodium Chloride 1,011.2 ml @ 100 mls/ hr Q24H IV 09/22/24 20:30 09/25/24 06:37 09/22/24 20:43 100 MLS/HR Vancomycin HCl 250 ml @ 125 mls/hr Q72H IV 09/22/24 20:30 09/23/24 08:04 DC 09/22/24 20:48 125 MLS/HR Vancomycin HCl (Vancomycin 500mg+NS 100ml Ivpb) 1,000 mg DAILY08 IV 09/23/24 08:00 09/22/24 20:26 DC Vitamin B Complex/ Vit C/Folic Acid (Nephrovite Tablet) 1 cap DAILY PO 09/23/24 09:00 10/23/24 08:59 09/23/24 08:39 1 CAP DIAGNOSTICS / RADIOLOGY: [ ] ASSESSMENT: Hyperosmolar Hyperglycemic Syndrome POA NSTEMI POA Influenza bronchopneumonia with sepsis POA Acute Hypoxemic Respiratory Failure POA Acute on chronic renal failure with concern for ATN POA Metabolic acidosis POA Lactic acidosis POA CKD stage 4 POA Uncontrolled Diabetes POA Protein Calorie malnutrition POA PLAN: We will admit patient in ICU PermCath placement today Pending 2D echo results Start him on renal diabetic diet We will start NS @ 100 ml / hr and re evaluate Continue Insulin drip using DKA protocol Continue Heparin drip per ACs protocol started by ER We will start patient on Doxycycline po and Zosyn renally dose We will continue Tamiflu 75mg po daily We will start on Aspirin 81 mg po daily We will start on Famotidine 20 mg IV daily for GI prophylaxis We will trend troponin Q6H x3 We will add prn medication for fever,pain,cough and nausea Home medication reconciled Follow up Cardiology, critical Care, Nephrology recommendations Will follow up U/a and cultures We will request labs in am Further orders to follow depending on above results ATTESTATION BY PHYSICIAN I have seen and examined the patient. I reviewed the documentation, medical decision making, and treatment plan as noted by the resident provider above. I agree with the findings and plan of care. Dieudonne Farley MD, NIHITHA MD Sep 23, 2024 09:23
--- NOTE | 2024-09-23 12:42 | NUR ---
NURSE DIAZ WITH ROOM SERVICE CLERK INFORMED OF ORDER FOR PERMACATH PLACEMENT. SCHEDULING NOTIFIED WELL,.
--- NOTE | 2024-09-23 12:54 | PN ---
NEPHROLOGY PROGRESS NOTE Date/Time Patient Seen: Sep 23, 2024 Reason for Consultation: 12:49 SUBJECTIVE: This is a 49-year-old male with past medical history of CKD, diabetes, hypertension, hyperlipidemia and obesity He presents to the ED for complaints of cough and chest congestion Patient reports coughing up pinkish colored thick phlegm, loss of appetite and on Sunday Continues to be followed by Cardiology Chest x-ray result revealed extensive bilateral mid to lower lung pneumonia right greater than left. Positive for influenza A, he has been started on Tamiflu. He was noted with elevated BUN/creatinine. We will has been consulted for renal failure. Renal function remains elevated Electrolytes are stable. Renal ultrasound was noted. He was seen in the emergency room Family at the bedside Prognosis remains guarded Condition is critical and guarded REVIEW OF SYSTEMS: GENERAL: Positive for cough, congestion and generalized weakness NEUROLOGIC: Negative for any blurry vision, blind spots, double vision, facial asymmetry, dysphagia, dysarthria, hemiparesis, hemisensory deficits, vertigo, ataxia. HEENT: Negative for any head trauma, neck trauma, neck stiffness, photophobia, phonophobia, sinusitis, rhinitis. CARDIAC: Negative for any chest pain, dyspnea on exertion, paroxysmal nocturnal dyspnea, peripheral edema. PULMONARY: Negative for any shortness of breath, wheezing, COPD, or TB exposure. GASTROINTESTINAL: Negative for any abdominal pain, nausea, vomiting, bright red blood per rectum, melena. GENITOURINARY: Negative for any dysuria, hematuria, incontinence. INTEGUMENTARY: Negative for any rashes, cuts, insect bites. RHEUMATOLOGIC: Negative for any joint pains, photosensitive rashes, history of vasculitis or kidney problems. HEMATOLOGIC: Negative for any abnormal bruising, frequent infections or bleeding. PHYSICAL EXAM: GENERAL: Alert and oriented x 3. No acute distress. Well-nourished. EYES: EOMI. Anicteric. HENT: Moist mucous membranes. No scleral icterus. No cervical lymphadenopathy. LUNGS: Clear to auscultation bilaterally. No accessory muscle use. CARDIOVASCULAR: Regular rate and rhythm. No murmur. No JVD. ABDOMEN: Soft, non-tender and non-distended. No palpable masses. EXTREMITIES: No edema. Non-tender. SKIN: No rashes or lesions. Warm. NEUROLOGIC: No focal neurological deficits. CN II-XII grossly intact, but not individually tested. PSYCHIATRIC: Cooperative. Appropriate mood and affect. LABORATORY: [ ] Hematology Labs: Test 09/23/24 07:08 09/21/24 17:24 Range/Units White Blood Count 11.4 H 4.8-10.8 K/uL Red Blood Count 2.73 L 4.50-6.20 MIL/uL Hemoglobin 7.6 L 14.0-18.0 g/dL Hematocrit 23.1 L 42-54 % Mean Corpuscular Volume 84.6 79-99 fL Mean Corpuscular Hemoglobin 27.8 27.0-33.0 pg Mean Corpuscular Hemoglobin Concent 32.9 32.0-36.0 g/dL Red Cell Distribution Width 13.4 11.0-15.5 % Platelet Count 178 # 130-400 K/uL Mean Platelet Volume 12.1 H 7.5-10.5 fL Immature Granulocyte % (Auto) 1.0 0-1 % Neutrophils (%) (Auto) 91.3 H 40.0-77.0 % Lymphocytes (%) (Auto) 3.8 L 21.0-51.0 % Monocytes (%) (Auto) 3.7 3.0-13.0 % Eosinophils (%) (Auto) 0.0 0.0-8.0 % Basophils (%) (Auto) 0.2 0.0-5.0 % Neutrophils # (Auto) 10.4 H 1.8-7.7 K/uL Lymphocytes # (Auto) 0.4 L 1.0-4.8 K/uL Monocytes # (Auto) 0.4 0.1-1.0 K/uL Eosinophils # (Auto) 0.00 0.00-0.70 K/uL Basophils # (Auto) 0.02 0.00-0.20 K/uL Absolute Immature Granulocyte (auto 0.12 0-1 K/uL Nucleated Red Blood Cells 0.0 0.0-0.19 % White Cell Morphology Comment See comments Chemistry Labs: Test 09/23/24 12:26 09/23/24 09:45 09/23/24 07:08 09/23/24 07:02 Range/Units Whole Blood Glucose 281 H 70-110 MG/DL Whole Blood Ketones Quantitative 0.7 H 0.0-0.6 mmol/L Sodium Level 138 136-145 mmol/L Potassium Level 4.6 3.5-5.1 mmol/L Chloride Level 104 101-111 mmol/L Carbon Dioxide Level 17 L 21-32 mmol/L Blood Urea Nitrogen 98 *H 7-18 mg/dL Creatinine 8.4 *H 0.5-1.3 mg/dL Glomerular Filtration Rate Calc 7 >90 mL/min Random Glucose 261 H 70-105 mg/dL Total Calcium 8.1 L 8.5-10.1 mg/dL Phosphorus Level 6.9 H 2.5-4.9 mg/dL Total Bilirubin 0.3 0.2-1.0 mg/dL Aspartate Amino Transf (AST/SGOT) 28 10-37 U/L Alanine Aminotransferase (ALT/SGPT) 22 12-78 U/L Alkaline Phosphatase 71 50-136 U/L Total Protein 6.6 6.0-8.3 g/dL Albumin 2.0 L 3.5-5.0 g/dL Thyroid Stimulating Hormone (TSH) 0.70 # 0.36-3.74 uIU/mL B-Type Natriuretic Peptide 1150 H 0-100 pg/mL Test 09/22/24 18:07 09/22/24 09:13 09/22/24 04:56 09/22/24 04:00 Range/Units Bedside Glucose Comment Notified Nurse Lactic Acid Level 2.3 0.8-2.5 mmol/L Troponin I High Sensitivity 6392 *H 4-75 ng/L Magnesium Level 2.30 1.80-2.40 mg/dL Triglycerides Level 221 H 30-200 mg/dL Cholesterol Level 242 #H <200 mg/dL LDL Cholesterol 149 H 0-99 mg/dL HDL Cholesterol 45 29-71 mg/dL Procalcitonin 70.62 H 0.05-0.5 ng/mL Test 09/22/24 00:48 Range/Units Hemoglobin A1c 13.8 H 4.0-6.0 % Estimated Average Glucose (eAG) 349 H 70-126 mg/dL Coagulation Labs: Test 09/23/24 05:55 Range/Units Prothrombin Time 10.3 9.6-11.6 SEC Prothromb Time International Ratio <= 0.93 0.85-1.15 Activated Partial Thromboplast Time 53.7 H 26.3-35.5 SEC DIAGNOSTICS / RADIOLOGY: REASON: acute renal failure ORDERING PHYSICIAN: DONDON,TERRANCE P INDUSTRIAL CHEMIST PROCEDURE: RENAL - US RENAL SONOGRAM US RENAL SONOGRAM REASON: acute renal failure COMPARISON: None TECHNIQUE: Renal and bladder sonogram was performed. FINDINGS: Right kidney is 11.3 x 4.9 x 4.7 cm, left is 11.5 x 5.5 x 4.4 cm. There is no mass, stone or hydronephrosis. Cortical thickness appears preserved. Echogenicity appears normal. The urinary bladder appears normal as well. IMPRESSION: 1. Normal renal and bladder sonogram. DICTATED BY: ARMANDO FAIR MD DATE: 09/22/241126 REASON: sob ORDERING PHYSICIAN: TERRANCE CHAN INDUSTRIAL CHEMIST PROCEDURE: CHEST WO - CT CHEST W/O CONTRAST CT CHEST WITHOUT CONTRAST INDICATION: Bilateral lung pneumonia TECHNIQUE: Routine axial images using 5 mm slice thickness were acquired from the lung apices to the bases without the administration of IV contrast.Coronal and sagittal reformatted images acquired for interpretation. CT was performed with one or more of the following dose reduction techniques: Automated exposure control, adjustment of the mA and/or kV according to patient size, or use of iterative reconstruction technique. COMPARISON: None FINDINGS: The heart size is normal. Coronary arterial wall calcific plaque noted. No pericardial effusion noted. Mild calcific plaque is present along the aortic arch and thoracic aortic ibrahim without aneurysmal dilation. The trachea and airways are patent. Coalescent "ground-glass" opacities with intermixed consolidation/nodularity noted throughout the bilateral lungs in a centrilobular distribution. No axillary, hilar, or mediastinal lymphadenopathy. No pleural effusion or pneumothorax identified. Limited views of the upper abdomen appear normal. Visible osseous structures are intact. IMPRESSION: Extensive bilateral lung pneumonia. Arteriosclerotic disease as described. DICTATED BY: AGUS MC MD DATE: 09/21/242025 REASON: cough, shortness of breath ORDERING PHYSICIAN: HEBER CABRERA NP PROCEDURE: CXR1VW - CHEST 1VW PORTABLE CHEST RADIOGRAPH INDICATION: cough, shortness of breath COMPARISON: 04/05/2024 FINDINGS: Heart size is normal. The pulmonary vascularity and eder appear normal. Extensive coalescent/consolidative bilateral mid to lower lung opacities, right greater than left. No significant pleural effusion noted. No pneumothorax detected. IMPRESSION: Extensive bilateral mid to lower lung pneumonia, right greater than left. DICTATED BY: AGUS MC MD DATE: 09/21/241899 ASSESSMENT: Hyperosmolar Hyperglycemic Syndrome NSTEMI Influenza bronchopneumonia with sepsis Acute Hypoxemic Respiratory Failure Acute on chronic renal failure with concern for ATN Metabolic acidosis Lactic acidosis CKD stage 4 Uncontrolled Diabetes Protein Calorie malnutrition PLAN: Labs, diagnostic, radiologic exams reviewed and interpreted by myself and s upervising physician. We have reviewed external records in detail From a renal standpoint, the function continues to decline and electrolytes remain unbalanced. The patient has remained hemodynamically stable and therefore we will recommend dialysis intervention to correct electrolytes as well as BUN and Creatinine. Risk and complications of renal replacement therapy, vascular access, and modalities were explained in great detail to the patient. Patient voices understanding and wishes to proceed. PermCath to be placed by IR, dialysis to follow Preserve nondominant arm Continue with Lasix 80 mg IV b.i.d. Please renally adjust Tamiflu Require close monitoring of renal function and electrolytes Order CBC, CMP, iron panel, ferritin and electrolytes in am IV iron/Epogen as needed Continue with antibiotics Renal diabetic diet BiPAP as necessary, for respiratory distress IV pressors as needed Monitor blood pressure adjust medication doses as needed Avoid hypotensive episodes May use Dilaudid 0.5 mg IV every 6 hours as needed for severe pain Monitor blood sugars Strict intake, output, and daily weight should be monitored Please renally adjust medications Avoid nephrotoxic and nonsteroidal drugs Avoid contrast if possible Will continue to monitor renal function, anemia, electrolytes Treatment plan discussed with patient Questions were answered We have discussed with the other team physicians in detail about the care plan We will continue to monitor the patient closely Total critical care time spent with patient, nursing staff, critical care team over 35 minutes ATTESTATION BY PHYSICIAN I have seen and examined the patient. I reviewed the documentation, medical decision making, and treatment plan as noted by the mid-level provider above. I agree with the findings and plan of care. BRAYDON HOLLINGSWORTH MD, [facility] Sep 23, 2024 12:54
[2024-09-23 12:56] LABS: POTASSIUM 4.3 mmol/L (3.5-5.1)
[2024-09-23 13:00] LABS: CREATININE 8.5 mg/dL (0.5-1.3)
[2024-09-23] MEDS ORDERED: PHARMACY COMMUNICATION MISC SCH (13:00)
[2024-09-23 13:21] LABS: HEMOGLOBIN A1C 12.9 % (4.0-6.0)
[2024-09-23 13:37] LABS: ALBUMIN 1.9 g/dL (3.5-5.0)
--- NOTE | 2024-09-23 13:42 | NUR ---
FINANCE PROFESSOR TEAM INFORMED OF DR AGUAYO ORDER TO PAUSE HEPARIN DRIP 2 HOURS PRIOR TO INSERTION OF PERMACATH. AT THIS TIME NO SCHEDULED TIME RECIEVED. TO BE CALLED FROM FINANCE PROFESSOR WHEN TIME FRAME FOR PROCEDURE CAN BE GIVEN.
--- NOTE | 2024-09-23 13:45 | CONS ---
[facility] CARDIOLOGY CONSULTATION REPORT Cardiology consultation note dictated for Salo Lombardi MD Primary embroidery finisher: Ash Gonzales MD Date Patient Seen: Sep 23, 2024 Requesting Physician: CHRISTAL Gonzales Reason for Consultation: NSTEMI History of Present Illness: This is a 49-year-old male with a past medical history of hypertension, hyperlipidemia, diabetes mellitus type 2, CKD stage 4, 2D echo on 04/06/2024 demonstrated an EF of 45-50%, and Lexiscan stress test on 04/07/2024 demonstrated a fixed basal mid inferolateral and basal inferior defect with no reversible ischemia. The patient was unable to pursue a coronary angiogram due to risk of contrast induced nephropathy. He presented to the ED with complaints of a productive cough, chest congestion, anorexia and chest pain induced by coughing for approximately 1 week. The patient was found to have influenza A. CT of the chest revealed bilateral pneumonia. Due to lack of appetite, the patient stopped administering his insulin. While in the ED, his glucose registered >600mgdL, he was subsequently diagnosed with HHS and DKA, and is currently on an Insulin gtt. On admission, the patient had a BUN of 88 with a creatinine of 8.2 that has increased today to BUN 102 and a creatinine of 8.5. GFR has ranged from 7-8. The patient decided to pursue hemodialysis today. Cardiology has been consulted for NSTEMI. The patient denies anginal equivalents. Troponin of 5531, 5716, 8278, and 6392. EKG demonstrating sinus tachycardia with a heart rate of 121 beats per minute, LAE, and diffuse ischemia. Dr. Acharya was consulted for STEMI but the patient did not meet criteria. He was started on a Heparin gtt per ACS protocol. Past Medical History: As per HPI and summarized below Past Surgical History: Left cataract surgery 02/2024 Family History: Noncontributory Social History: The patient lives with family. Habits: The patient denies alcohol, tobacco, or illicit drug use. Home Meds: Ila-Monroe - Tablet 1 tablet Orally Once a day. Ferrous Sulfate 325 (65 Fe) MG Tablet 1 tablet Orally Once a day. Isosorbide Mononitrate ER 30 MG Tablet Extended Release 24 Hour 1 tablet in the morning Orally Once a day. Carvedilol 6.25 MG Tablet 1 tablet with food Orally Twice a day. NIFEdipine ER 30 MG Tablet Extended Release 24 Hour 2 TABLETS Orally Once a day. Atorvastatin Calcium 40 MG Tablet 1 tablet Orally Once a day. Gabapentin 300 MG Capsule 1 capsule Orally Once a day. Metoprolol Tartrate 25 MG Tablet 1 tablet with food Orally Twice a day. amLODIPine Besylate 10 MG Tablet 1 tablet Orally Once a day. Sodium bicarbonate 650 mg b.i.d. Current Meds: Current Medications Medications Dose Ordered Sig/Sierra Start Time Stop Time Status Last Admin Heparin Sodium (Porcine) *calculation based on ACTUAL B... AD PRN 09/21/24 19:30 10/21/24 19:29 Heparin Sodium/ Dextrose 250 ml @ 0 mls/hr Q6H 09/21/24 19:30 10/21/24 19:29 09/22/24 10:43 Acetaminophen 650 mg Q6H PRN 09/21/24 19:30 10/21/24 19:29 Acetaminophen 650 mg Q4H PRN 09/21/24 19:30 10/21/24 19:29 09/21/24 22:53 Guaifenesin/ Dextromethorphan 10 ml Q4H PRN 09/21/24 19:30 10/21/24 19:29 Albuterol 1 udvial A4LJION 09/21/24 22:00 10/21/24 21:59 09/23/24 10:38 Nitroglycerin 0.5 inch Q8H 09/21/24 19:30 10/21/24 19:29 09/23/24 12:53 Sodium Chloride 1,000 ml @ 100 mls/hr Q10H 09/21/24 19:30 10/21/24 19:29 09/23/24 12:53 Oseltamivir Phosphate 75 mg DAILY 09/22/24 09:00 09/27/24 08:59 09/23/24 08:38 Doxycycline Hyclate 100 mg BID 09/21/24 21:00 10/01/24 20:59 09/23/24 08:39 Aspirin 81 mg DAILY 09/22/24 09:00 10/22/24 08:59 09/23/24 08:49 Insulin Human Regular 100 unit/ Sodium Chloride 101 ml @ 0 mls/hr PROTOCOL 09/21/24 20:00 10/21/24 19:59 09/21/24 21:01 Famotidine 10 mg DAILY 09/22/24 09:00 10/22/24 08:59 09/23/24 08:40 Sodium Chloride 1,000 ml @ 200 mls/hr PROTOCOL 09/22/24 00:00 10/22/24 00:00 Potassium Chloride/Dextrose/ Sod Cl 1,000 ml @ 0 mls/hr AD 09/22/24 00:00 10/22/24 00:00 Potassium Chloride 20 meq/ Sodium Chloride 1,010 ml @ 0 mls/hr PROTOCOL 09/22/24 00:00 10/22/24 00:00 Magnesium Sulfate 50 ml @ 0 mls/hr PROTOCOL 09/22/24 00:00 10/22/24 00:00 Dextrose/Sodium Chloride 1,000 ml @ 0 mls/hr AD 09/22/24 00:00 10/22/24 00:00 09/22/24 09:49 Methylprednisolone Sodium Succinate 40 mg BID 09/22/24 09:00 10/22/24 08:59 09/23/24 08:40 Vitamin B Complex/ Vit C/Folic Acid 1 cap DAILY 09/23/24 09:00 10/23/24 08:59 09/23/24 08:39 Furosemide 80 mg Q12H 09/22/24 21:00 10/22/24 20:59 09/23/24 08:39 Nifedipine 60 mg DAILY 09/23/24 09:00 10/23/24 08:59 09/23/24 08:39 Ferrous Sulfate 325 mg DAILY 09/23/24 09:00 10/23/24 08:59 09/23/24 08:39 Chlordiazepoxide HCl 25 mg Q2H PRN 09/22/24 20:30 09/29/24 20:29 Chlordiazepoxide HCl 50 mg Q1H PRN 09/22/24 20:30 09/29/24 20:29 Thiamine HCl 100 mg/Folic Acid 1 mg/Multivitamins/ Minerals 10 ml/ Sodium Chloride 1,011.2 ml @ 100 mls/ hr Q24H 09/22/24 20:30 09/25/24 06:37 09/22/24 20:43 Multivitamins Therapeutic 1 tab DAILY 09/23/24 09:00 10/23/24 08:59 09/23/24 08:39 Pharmacy Profile Note 1 each PROTOCOL PRN 09/22/24 20:30 09/29/24 20:29 Fish Oil 2,000 mg BID 09/22/24 21:00 10/22/24 20:59 09/23/24 08:39 Metoprolol Tartrate 12.5 mg BID 09/22/24 21:00 10/22/24 20:59 09/23/24 08:40 Insulin Glargine 10 units BID@0730,2100 09/22/24 21:00 10/22/24 20:59 09/23/24 08:41 Cefepime HCl 1 gm Q24H 09/23/24 08:30 10/03/24 08:29 09/23/24 08:40 Pharmacy Profile Note 1 each ONCE 09/23/24 13:00 09/30/24 12:59 UNV Review of Systems: CONST: No fever, fatigue, or weight changes. EYES: No recent vision problems. ENT: No congestion, ear pain, or sore throat. C/V: No chest pain, palpitations, or edema. RESP: No cough, congestion, wheezing or shortness of breath. GI: No abdominal pain, nausea, vomiting, constipation, or diarrhea. : No incontinence or dysuria. SKIN: No rash. NEURO: No headache, focal numbness or weakness, dizziness, or seizures. PSYCH: No depression or anxiety. HEME: No abnormal bruising or bleeding. LYMPH: No swollen glands. Physical Examination: GENERAL: No acute distress. On 4 L of O2 via NC. HEAD: Normal with no signs of head trauma. EYES: PERRLA, EOMI, conjunctiva and sclera normal. ENT: Hearing grossly intact, normal oropharynx. NECK: Supple without JVD. There is no tenderness, lymphadenopathy, or masses. No thyromegaly. Normal carotid upstrokes without bruits. LUNGS: Crackles to bases bilaterally. HEART: Tachycardic rate and normal rhythm. Normal S1 and S2 without murmurs, gallop or rub. VASC: BLE 2+ pitting edema ABD: Bowel sounds normal, soft, nontender, no masses, no organomegaly. No audible bruits. : Not examined LYMPH: No lymphadenopathy noted. EXT: No clubbing, cyanosis or edema. SKIN: No rashes or lesions noted. NEURO: Awake, alert, and oriented x3. No focal sensory or strength deficits noted. Vital Signs (last 8hr) Date Time Temp Pulse Resp B/P (MAP) Pulse Ox O2 Delivery O2 Flow Rate FiO2 09/23/24 12:54 110 20 110/52 96 Nasal Cannula* 4 36 09/23/24 11:50 103 17 136/78 99 Nasal Cannula* 4 36 09/23/24 10:41 107 20 09/23/24 08:09 98.1 114 20 132/78 96 Nasal Cannula* 4 36 09/23/24 06:55 105 21 N/Cannula Oximizer Hi LPM 5.0 09/23/24 06:54 105 21 09/23/24 06:08 98.2 107 20 136/80 98 Nasal Cannula* 5.0 50 N/C Oxymizer Hi LPM* 09/23/24 05:07 98.2 109 20 141/86 96 Nasal Cannula* 5.0 50 N/C Oxymizer Hi LPM* Laboratory: Hematology Labs: Test 09/23/24 07:08 09/21/24 17:24 Range/Units White Blood Count 11.4 H 4.8-10.8 K/uL Red Blood Count 2.73 L 4.50-6.20 MIL/uL Hemoglobin 7.6 L 14.0-18.0 g/dL Hematocrit 23.1 L 42-54 % Mean Corpuscular Volume 84.6 79-99 fL Mean Corpuscular Hemoglobin 27.8 27.0-33.0 pg Mean Corpuscular Hemoglobin Concent 32.9 32.0-36.0 g/dL Red Cell Distribution Width 13.4 11.0-15.5 % Platelet Count 178 # 130-400 K/uL Mean Platelet Volume 12.1 H 7.5-10.5 fL Immature Granulocyte % (Auto) 1.0 0-1 % Neutrophils (%) (Auto) 91.3 H 40.0-77.0 % Lymphocytes (%) (Auto) 3.8 L 21.0-51.0 % Monocytes (%) (Auto) 3.7 3.0-13.0 % Eosinophils (%) (Auto) 0.0 0.0-8.0 % Basophils (%) (Auto) 0.2 0.0-5.0 % Neutrophils # (Auto) 10.4 H 1.8-7.7 K/uL Lymphocytes # (Auto) 0.4 L 1.0-4.8 K/uL Monocytes # (Auto) 0.4 0.1-1.0 K/uL Eosinophils # (Auto) 0.00 0.00-0.70 K/uL Basophils # (Auto) 0.02 0.00-0.20 K/uL Absolute Immature Granulocyte (auto 0.12 0-1 K/uL Nucleated Red Blood Cells 0.0 0.0-0.19 % White Cell Morphology Comment See comments Chemistry Labs: Test 09/23/24 12:29 09/23/24 12:26 09/23/24 09:45 09/23/24 07:08 Range/Units Sodium Level 137 136-145 mmol/L Potassium Level 4.3 3.5-5.1 mmol/L Chloride Level 100 L 101-111 mmol/L Carbon Dioxide Level 19 L 21-32 mmol/L Blood Urea Nitrogen 102 *H 7-18 mg/dL Creatinine 8.5 *H 0.5-1.3 mg/dL Glomerular Filtration Rate Calc 7 >90 mL/min Random Glucose 282 H 70-105 mg/dL Total Calcium 7.7 L 8.5-10.1 mg/dL Whole Blood Glucose 281 H 70-110 MG/DL Whole Blood Ketones Quantitative 0.7 H 0.0-0.6 mmol/L Phosphorus Level 6.9 H 2.5-4.9 mg/dL Total Bilirubin 0.3 0.2-1.0 mg/dL Aspartate Amino Transf (AST/SGOT) 28 10-37 U/L Alanine Aminotransferase (ALT/SGPT) 22 12-78 U/L Alkaline Phosphatase 71 50-136 U/L Total Protein 6.6 6.0-8.3 g/dL Albumin 2.0 L 3.5-5.0 g/dL Thyroid Stimulating Hormone (TSH) 0.70 # 0.36-3.74 uIU/mL Test 09/23/24 07:02 09/22/24 18:07 09/22/24 09:13 09/22/24 04:56 Range/Units B-Type Natriuretic Peptide 1150 H 0-100 pg/mL Bedside Glucose Comment Notified Nurse Lactic Acid Level 2.3 0.8-2.5 mmol/L Troponin I High Sensitivity 6392 *H 4-75 ng/L Magnesium Level 2.30 1.80-2.40 mg/dL Triglycerides Level 221 H 30-200 mg/dL Cholesterol Level 242 #H <200 mg/dL LDL Cholesterol 149 H 0-99 mg/dL HDL Cholesterol 45 29-71 mg/dL Test 09/22/24 04:00 09/22/24 00:48 Range/Units Procalcitonin 70.62 H 0.05-0.5 ng/mL Hemoglobin A1c 13.8 H 4.0-6.0 % Estimated Average Glucose (eAG) 349 H 70-126 mg/dL Coagulation Labs: Test 09/23/24 05:55 Range/Units Prothrombin Time 10.3 9.6-11.6 SEC Prothromb Time International Ratio <= 0.93 0.85-1.15 Activated Partial Thromboplast Time 53.7 H 26.3-35.5 SEC Diagnostics / Radiology: Impression and Plan: NSTEMI Volume overload 2/2 progression of ESRD Influenza A, Tamiflu started on 09/22/2024 Bilateral pneumonia HHS and DKA, on Insulin gtt HTN HLD DM type II 2D echo on 04/06/2024 demonstrated an EF of 45-50% Lexiscan stress test on 04/07/2024 demonstrated a fixed basal mid inferolateral and basal inferior defect with no reversible ischemia Unable to pursue a coronary angiogram due to risk of contrast induced nephropathy NSTEMI Troponin of 5531, 5716, 8278, and 6392 EKG demonstrated sinus tachycardia with a heart rate of 121 beats per minute, LAE, and diffuse ischemia Dr. Acharya was consulted for STEMI but the patient did not meet criteria. On heparin drip per ACS protocol, started on 09/21/2024 at 1950 -Continue Aspirin 81 mg daily, Metoprolol tartrate 12.5mg bid, and start Atorvastatin 20 mg nightly -Give 300mg of Plavix x1 then 75mg daily -Echocardiogram is pending to be read -The patient decided to pursue hemodialysis today. -Once the patient has been dialyzed 2-3 sessions and is euvolemic, we will plan for a coronary angiogram to assess coronary anatomy. Heparin gtt with be continued until the procedure. REINIER JUAREZ WAFER FAB TECHNICIAN Sep 23, 2024 13:45
--- NOTE | 2024-09-23 15:55 | NUR ---
DR AGUAYO AT BEDSIDE
[2024-09-23] MEDS ORDERED: OSELTAMIVIR PHOSPHATE 75 MG CAP PO SCH (16:00)
--- NOTE | 2024-09-23 16:50 | HMCIMG ---
CT ABDOMEN/PELVIS W/O CONTRAST REASON: LOWER ABDOMINAL PAIN AND DISTENSION COMPARISON: None. FINDINGS: There are acute appearing infiltrates in both lung bases consistent with chest x-ray findings. There are no focal liver lesions. There are normal-appearing kidneys.. Spleen and pancreas appear unremarkable. The gallbladder appears normal as well. Bowel loops appear unremarkable. This includes normal appearance of the appendix There is no evidence of free fluid or intraperitoneal air. There are no focal fluid collections. There are a few calcified plaques in the aorta. Retroperitoneum appears unremarkable, there is no lymphadenopathy. There is a Del Cid catheter in a nondistended urinary bladder. Pelvic soft tissues are otherwise unremarkable.. The anterior abdominal wall is intact. Osseous structures appear unremarkable. IMPRESSION: 1. Acute appearing infiltrates in both lung bases consistent with pneumonia. 2. No acute finding in the abdomen or pelvis. 3. Del Cid catheter in good position in the urinary bladder. CT was performed with one or more following dose reduction techniques: automated exposure control, adjustment of the mA and kv according to patient's size, or use of a iterative reconstruction technique.
--- NOTE | 2024-09-23 17:00 | NUR ---
TO BEAN SNIPPER AT THIS TIME FOR JEFFY
--- NOTE | 2024-09-23 17:01 | NUR ---
NPO FOR PROCEDURE PER CATHLAB TEAM
[2024-09-23] MEDS ORDERED: HEParin-NS 1,000 UNIT/500 ML 500 ML IV ONE (17:17)
[2024-09-23] MEDS ORDERED: LIDOCAINE HCL 400MG/20ML VIAL ONE (17:17)
[2024-09-23] MEDS ORDERED: HEParin 1,000 UNIT VIAL ONE (17:24)
--- NOTE | 2024-09-23 18:05 | PRN ---
TEMPORARY DIALYSIS CATHETER PLACEMENT: INDICATION: Hemodialysis. History of recent myocardial infarction. LOW PRESSURE KETTLE OPERATOR: Dr. Smith PROCEDURE: Risks and benefits were explained and informed written consent was obtained. Patient was placed supine and timeout performed. All elements of maximal sterile barrier technique, including hand hygiene and cutaneous antisepsis were used. Right right neck was prepped and draped in the usual sterile fashion. Under direct ultrasound guidance, the right internal jugular vein was accessed with a 21 gauge needle. Over a wire the venotomy was dilated to accommodate a 15 cm Schon XL dialysis catheter, which secured to the skin. Ports were heparin locked. Sterile dressing applied Medications: 10 mL lidocaine 1% Blood loss: < 5 mL Complications: None Total fluoroscopic time: 1.3 minutes. IMPRESSION: Successful temporary dialysis catheter placement. The catheter is ready for immediate use. Chest x-ray to follow. KALEY SMITH DO Sep 23, 2024 18:05
--- NOTE | 2024-09-23 18:08 | HMCIMG ---
TEMPORARY DIALYSIS CATHETER PLACEMENT: INDICATION: Hemodialysis. History of recent myocardial infarction. LONG GOODS DRIER: Dr. Smith PROCEDURE: Risks and benefits were explained and informed written consent was obtained. Patient was placed supine and timeout performed. All elements of maximal sterile barrier technique, including hand hygiene and cutaneous antisepsis were used. Right right neck was prepped and draped in the usual sterile fashion. Under direct ultrasound guidance, the right internal jugular vein was accessed with a 21 gauge needle. Over a wire the venotomy was dilated to accommodate a 15 cm Schon XL dialysis catheter, which secured to the skin. Ports were heparin locked. Sterile dressing applied Medications: 10 mL lidocaine 1% Blood loss: < 5 mL Complications: None Total fluoroscopic time: 1.3 minutes. IMPRESSION: Successful temporary dialysis catheter placement. The catheter is ready for immediate use. Chest x-ray to follow.
--- NOTE | 2024-09-23 18:25 | NUR ---
BACK FROM EQUINE MANAGER
[2024-09-23] MEDS: cloPIDOgrel 300MG TAB PO ONE (19:04)
[2024-09-23 19:33] LABS: HEMATOCRIT 21.7 % (42-54)
[2024-09-23] MEDS: ALBUMIN (HUMAN) 25% 50 ML IV.SOLN. IV ONE (19:53)
[2024-09-23] MEDS: 0.9%NACL 1000ML 1,000 ML IV SCH (19:53)
[2024-09-23 19:55] LABS: POTASSIUM 3.7 mmol/L (3.5-5.1)
[2024-09-23 20:04] LABS: CREATININE 8.6 mg/dL (0.5-1.3)
--- NOTE | 2024-09-23 20:10 | EKG ---
[facility] Test Date: 2024-09-23 Test Time: 19:35:44 Pat Name: ADRIANA ABRAHAM Department: [facility] Room: 430 Gender: M Head Grower: [id number] : 1975 Requested By: BRAYDON HOLLINGSWORTH Order Number: [id number] Reading MD: Edison Rosario Measurements Intervals [place] Rate: 115 P: 54 WI: 162 QRS: 20 QRSD: 87 T: 178 QT: 352 QTc: 486 Interpretive Statements Sinus tachycardia Probable LVH with secondary repol abnrm Compared to ECG 09/21/2024 18:34:03 Possible ischemia no longer present ST (T wave) deviation no longer present Electronically Signed On 09-24-2024 20:02:01 DRAFTER CHIEF DESIGN by Edison Rosario Please click the below link to view image of tracing.
[2024-09-23 21:04] LABS: ALBUMIN 1.9 g/dL (3.5-5.0)
--- NOTE | 2024-09-23 21:27 | PN ---
[facility] PROGRESS NOTE Date Patient Seen: Sep 23, 2024 Time of Visit: 08:30 Supervising Physician: Steve Dong MD Primary Care Physician: Gama Acosta Outpatient Specialists: [ ] Inpatient Consults: Cardiology, nephrology and critical care team PROBLEM LIST: Acute Hypoxemic Respiratory Failure, POA Nstemi,likely Type II POA on Heparin gtt Bilateral Pneumonia, POA Influenza A Infection, POA Sepsis Due To Bilateral Pneumonia And Influenza A Infection, POA Acute Hypoxemic Respiratory Failure, POA Esrd, POA Dka, POA Acute Metabolic Acidosis In The Context Of Dka and SAURABH , Poa Hyperkalemia In The Context Of Chronic Kidney Injury, Poa Morbid Obesity, Poa INTERVAL HISTORY: 09/22/2024: At the time my evaluation, the patient was in the emergency department awaiting bed assignment. The staff nurse reports no acute events overnight. The patient was on a Oxymizer with optimal SpO2. He was normotensive without the need for pressor therapy. There was no complaint of chest pain. There was no abdominal pain, nausea vomiting or diarrhea. The p atient continued on a insulin drip per the DKA protocol. He was started on antibiotic and antiviral therapy for management of his condition. Review of labs today showed no major concern on CBC. Chemistry panel did show a sodium of 135, chloride of 100 and a CO2 of 20 with a anion gap of 15. Blood glucose remains elevated in the 300s. No new complaint. 09/23- saw patient and ED 13 awake alert and oriented x3. 2D echo at bedside being performed. Patient has been afebrile heart rate of 110, blood pressure 116/63 with respiratory rate of 20 saturating 97% with 7 L via nasal cannula oximizer. Urine output 1.4 L in the last 24 hours. On laboratory WBCs are 11.4 H&H trending down 7.6/23.1 with a platelet count that is 178 K. on chemistry sodium 136 potassium of 3.7 chloride 100 carbon dioxide of 19 BUN 106. Creatinine of 8.6 and GFR of 7. Per Dr Armenta pt scheduled for a Mitesh hemodialysis catheter per IR today. Pt continues with Tamiflu, Doxy, Cefepime and MRSA coverage will be added w/ vanco due to suspected MRSA superimposed pneumonia on Influenza pneumonia. On CT chest, abdomen and pelvis shows Acute appearing infiltrates in both lung bases consistent with pneumoniae. No acute finding in the abdomen or pelvis. Del Cid catheter in good position in the urinary bladder. We will continue to follow Neprhology recommendations. REVIEW OF SYSTEMS: 12 point ROS reviewed with patient. Pertinent positives mentioned above. Otherwise negative. PHYSICAL EXAM: GENERAL: alert, weak, awake oriented x 3 HEENT: EOMI, Sclera non icteric, moist mucosa NECK: Supple, no JVD, trachea midline LUNGS: Diminished breath sounds bilaterally. No wheezes HEART: Regular rate and rhythm. Normal S1 and S2, without murmurs ABD: Abdomen soft, nontender. Bowel sounds present EXT: No clubbing cyanosis or edema NEURO: Alert and oriented to person, follows commands Vital Signs (last 8hr) Date Time Temp Pulse Resp B/P (MAP) Pulse Ox O2 Delivery O2 Flow Rate FiO2 09/23/24 19:30 97.9 116 20 111/63 97 N/C Oxymizer Hi LPM* 7 60 09/23/24 19:02 110 20 09/23/24 19:02 110 20 N/Cannula Oximizer Hi LPM 7.0 09/23/24 18:50 98.1 113 25 104/65 95 Nasal Cannula 7.0 09/23/24 18:47 113 22 105/70 92 Hi-Flow N/C+ 70 50 09/23/24 16:37 109 24 119/73 95 Nasal Cannula* 4 36 09/23/24 15:24 116 17 106/59 97 Aerosol Mask+ 4 36 09/23/24 14:39 107 21 N/Cannula Oximizer Hi LPM 4.0 09/23/24 14:38 107 20 LABS: Hematology Labs: Test 09/23/24 19:16 09/23/24 07:08 Range/Units Hemoglobin 7.2 L 14.0-18.0 g/dL Hematocrit 21.7 L 42-54 % White Blood Count 11.4 H 4.8-10.8 K/uL Red Blood Count 2.73 L 4.50-6.20 MIL/uL Mean Corpuscular Volume 84.6 79-99 fL Mean Corpuscular Hemoglobin 27.8 27.0-33.0 pg Mean Corpuscular Hemoglobin Concent 32.9 32.0-36.0 g/dL Red Cell Distribution Width 13.4 11.0-15.5 % Platelet Count 178 # 130-400 K/uL Mean Platelet Volume 12.1 H 7.5-10.5 fL Immature Granulocyte % (Auto) 1.0 0-1 % Neutrophils (%) (Auto) 91.3 H 40.0-77.0 % Lymphocytes (%) (Auto) 3.8 L 21.0-51.0 % Monocytes (%) (Auto) 3.7 3.0-13.0 % Eosinophils (%) (Auto) 0.0 0.0-8.0 % Basophils (%) (Auto) 0.2 0.0-5.0 % Neutrophils # (Auto) 10.4 H 1.8-7.7 K/uL Lymphocytes # (Auto) 0.4 L 1.0-4.8 K/uL Monocytes # (Auto) 0.4 0.1-1.0 K/uL Eosinophils # (Auto) 0.00 0.00-0.70 K/uL Basophils # (Auto) 0.02 0.00-0.20 K/uL Absolute Immature Granulocyte (auto 0.12 0-1 K/uL Nucleated Red Blood Cells 0.0 0.0-0.19 % Chemistry Labs: Test 09/23/24 20:56 09/23/24 19:16 09/23/24 12:29 09/23/24 09:45 Range/Units Whole Blood Glucose 181 H 70-110 MG/DL Sodium Level 136 136-145 mmol/L Potassium Level 3.7 3.5-5.1 mmol/L Chloride Level 100 L 101-111 mmol/L Carbon Dioxide Level 19 L 21-32 mmol/L Blood Urea Nitrogen 106 *H 7-18 mg/dL Creatinine 8.6 *H 0.5-1.3 mg/dL Glomerular Filtration Rate Calc 7 >90 mL/min Random Glucose 265 H 70-105 mg/dL Total Calcium 7.5 L 8.5-10.1 mg/dL Ferritin 472 H 30-400 ng/mL Albumin 1.9 L 3.5-5.0 g/dL Triglycerides Level 342 H 30-200 mg/dL Cholesterol Level 238 H <200 mg/dL LDL Cholesterol 150 H 0-99 mg/dL HDL Cholesterol 29 29-71 mg/dL Whole Blood Ketones Quantitative 0.7 H 0.0-0.6 mmol/L Test 09/23/24 07:08 09/23/24 07:02 09/22/24 18:07 09/22/24 09:13 Range/Units Hemoglobin A1c 12.9 H 4.0-6.0 % Estimated Average Glucose (eAG) 324 H 70-126 mg/dL Phosphorus Level 6.9 H 2.5-4.9 mg/dL Iron Level 80 65-175 mcg/dL Total Iron Binding Capacity 170 L 250-450 mcg/dL Percent Iron Saturation 47.0 H 30-44 % Total Bilirubin 0.3 0.2-1.0 mg/dL Aspartate Amino Transf (AST/SGOT) 28 10-37 U/L Alanine Aminotransferase (ALT/SGPT) 22 12-78 U/L Alkaline Phosphatase 71 50-136 U/L Total Protein 6.6 6.0-8.3 g/dL Thyroid Stimulating Hormone (TSH) 0.70 # 0.36-3.74 uIU/mL B-Type Natriuretic Peptide 1150 H 0-100 pg/mL Bedside Glucose Comment Notified Nurse Lactic Acid Level 2.3 0.8-2.5 mmol/L Troponin I High Sensitivity 6392 *H 4-75 ng/L Test 09/22/24 04:56 09/22/24 04:00 Range/Units Magnesium Level 2.30 1.80-2.40 mg/dL Procalcitonin 70.62 H 0.05-0.5 ng/mL Coagulation Labs: Test 09/23/24 05:55 Range/Units Prothrombin Time 10.3 9.6-11.6 SEC Prothromb Time International Ratio <= 0.93 0.85-1.15 Activated Partial Thromboplast Time 53.7 H 26.3-35.5 SEC DIAGNOSTICS / RADIOLOGY RESULTS: IMAGING REPORT Signed PATIENT: ADRIANA ABRAHAM MR#: [id number] : 1975 SEX: M AGE: 49 LOCATION: [facility] ORDER 153 STATUS: ADM IN REPORT#: [id number] SERVICE [id number] REASON: LOWER ABDOMINAL PAIN AND DISTENSION ORDERING PHYSICIAN: BRIAN LANDON MD PROCEDURE: ABD PEL WO - CT ABDOMEN/PELVIS W/O CONTRAST CT ABDOMEN/PELVIS W/O CONTRAST REASON: LOWER ABDOMINAL PAIN AND DISTENSION COMPARISON: None. FINDINGS: There are acute appearing infiltrates in both lung bases consistent with chest x-ray findings. There are no focal liver lesions. There are normal-appearing kidneys.. Spleen and pancreas appear unremarkable. The gallbladder appears normal as well. Bowel loops appear unremarkable. This includes normal appearance of the appendix There is no evidence of free fluid or intraperitoneal air. There are no focal fluid collections. There are a few calcified plaques in the aorta. Retroperitoneum appears unremarkable, there is no lymphadenopathy. There is a Del Cid catheter in a nondistended urinary bladder. Pelvic soft tissues are otherwise unremarkable.. The anterior abdominal wall is intact. Osseous structures appear unremarkable. IMPRESSION: 1. Acute appearing infiltrates in both lung bases consistent with pneumonia. 2. No acute finding in the abdomen or pelvis. 3. Del Cid catheter in good position in the urinary bladder. CT was performed with one or more following dose reduction techniques: automated exposure control, adjustment of the mA and kv according to patient's size, or use of a iterative reconstruction technique. DICTATED BY: ARMANDO FAIR MD DATE: 09/23/24 1645 ELECTRONICALLY SIGNED BY: ARMANDO FAIR MD DATE: 09/23/24 1650 PLAN Follow nephrology recs Add MRSA coverage W/ Vanco continue Tamiflu, Doxy and Cefepime respiratory culture HD per Nephrology Monitor Ketones Stop insulin gtt monitor metabolic acidosis Start sodium bicarb pills 650tid Continue Solu-Medrol 40 BID IV and wean as tolerated NEURO: Minimize central acting medications as possible. Fall Precautions. Well lighted room through the day and minimize interruptions through the night to prevent acute delirium. PULMONARY: Supplemental 02 as needed DuoNebs every 6 hours Robitussin 10 mL q.4h p.r.n. for cough Titrate Fio2 to keep Spo2 > or = 90% DuoNebs and CPT as needed IS hourly while awake for pulmonary hygiene Out of bed to chair as tolerated CARDIOVASCULAR: Follow hemodynamics. Titrate vasopressor to keep MAP >65 or systolic blood pressure >95mmHg Aspirin 81 mg p.o. daily Atorvastatin 40 mg p.o. at bedtime Serial troponin level Nuclear Medicine Chief Technologist consulted DIPS: Heparin drip conitnue Insulin drip. off LINES: PIV HD Catheter pending GI & NUTRITION: Continue nutritional support Aspirations precautions Prokinetic agents and laxatives as needed Keep patient NPO Renal diet KIDNEYS & ELECTROLYTES: Strict monitoring of intake and output Nephrology is consulted Obtain UA Daily weights Avoid nephrotoxic agents Monitor electrolytes and replace as needed Goal urine output of 30mL/hr or 0.5mL/kg/hr Urine output: [ ] Fluid Balance: [ ] ENDOCRINE: Maintain blood glucose between 100-180 at all times. Insulin sliding scale for blood glucose management Insulin drip per DKA protocol INFECTIOUS DISEASE: Trend temperature. Ritter-culture if febrile. Micro: Blood cultures resp cultures Antibiotics: Zosyn 3.375 g IV every 8 hours and doxycycline 100 mg IV every 12 hours HEMATOLOGY & COAGULATION: Monitor H&H. Keep Hgb > 7 Transfuse 1 unit of PRBC for Hgb < 7 Transfuse 1 pack of platelets of platelets < 20, 000 Watch for any signs and symptoms of bleeding SKIN: Pressure ulcer prevention per facility protocol Rehab: PT/OT Prophylaxis: GI: Famotidine DVT: Heparin Code Status: Full Resuscitation Disposition: [Keep in ICU ] Other: Total patient care time exceeds 35 minutes excluding all procedures. Case was discussed and seen with my supervising physician. The above plan was formulated and agreed upon. SHAVON ARAGON RAG COLLECTOR Sep 23, 2024 21:27
[2024-09-23] MEDS: PHARMACY COMMUNICATION MISC SCH (21:30)
--- NOTE | 2024-09-23 21:33 | NUR ---
INSULIN DRIP STOPPED ORDERED
--- NOTE | 2024-09-23 21:34 | NUR ---
PER DIALYSIS NURSE, 1 L REMOVED
[2024-09-23] MEDS: atorVAStatin 20 MG TABLET PO SCH (21:44)
[2024-09-23] MEDS: guaiFENesin-DM 200/20MG 10ML PO PRN (22:06)
--- NOTE | 2024-09-23 22:09 | NUR ---
PT REPORTED FEELING DIZZY AND "SEENG WHITE" LASTED LESS THAN 10 SECONDS. REPORTS HAVING EPISODES PREV AT HOME. PT DENIES SOB OR CHEST PAIN. BLOOD PRESSURE 11/53, HEART RATE 113, DONDON SMALL PIECE CUTTER ASSOCIATE CHEMIST FOR HOSPITALIST MADE AWARE.
--- NOTE | 2024-09-23 22:09 | NUR ---
DUSTIN MUCKER OPERATOR MADE AWARE PT C/O SPASMS TO ABD, VISIBLE MOVEMENT NOTED STOMACH, CHEST , AND ARMS, AURELIANO BEDOYA MUCKER OPERATOR MADE AWARE
[2024-09-23 22:13] LABS: HIV 1&2 ANTIBODY Non-Reactive (Negative)
[2024-09-23 22:14] LABS: HIV-1 p24 Antigen Non-Reactive (Negative)
[2024-09-23 22:25] LABS: CREATININE 6.8 mg/dL (0.5-1.3); POTASSIUM 3.7 mmol/L (3.5-5.1)
--- NOTE | 2024-09-23 22:31 | NUR ---
REPORT GIVEN TO ANGEL LUIS DASH
[2024-09-23] MEDS: OSELTAMIVIR PHOSPHATE 75 MG CAP PO SCH (22:44)
--- NOTE | 2024-09-23 23:10 | NUR ---
ADMIT ADMIT TO ROOM 430 VIA STRETCHER FROM ER, PATIENT AWAKE, ALERT, OX3, OXYGEN AT 7 L N/C OXYMIZER, HEPARIN DRIP INFUSING AT 15 U PER HOUR, PATIENTS AT BEDSIDE TEACH PATIENT PLAN OF CARE AND EXPECTED OUTCOME, BOTH VERBALIZE UNDERSTANDING VIA TEACH BACK
[2024-09-24] VITALS (27 sets, daily range): BP systolic 98–137; BP diastolic 52–80; PULSE 84–109; RESP 18–24; TEMP 97.2–98.4; O2SAT 93–98
[2024-09-24] MEDS: VANCOMYCIN 750MG VIAL IVPB SCH (00:04)
--- NOTE | 2024-09-24 01:09 | HMCSR ---
APPROVED REPORT EXAM: Two-dimensional and M-mode echocardiogram with Doppler and color Doppler. INDICATION ICD: Fluid volume overload 2D Dimensions RVDd4.4 cmLVEF(%)41.1 (>50%)LVED Vol(simp.)176.0 mL IVSd1.0 (0.7-1.1cm)FS(%)20 %LVES Vol(simp.)104.0 mL LVDd5.4 (3.8-5.6cm)LA (2D)4.1 (1.6-4.0cm)LVEF(%, simp.)41 % PWd1.4 (0.7-1.1cm)Ao Root(2D)2.9 (2.0-3.7cm)LA ESV INDEX (4CH)33.40 mL/m2 IVSs1.2 cmLVOT diam2.0 (1.8-2.4cm)LA ESV INDEX (2CH)45.20 mL/m2 LVDs4.3 (2.5-4.0cm)IVC diam2.1 cmLA ESV INDEX (BP)39.50 mL/m2 PWs2.0 cm Deformation Strain Apical 4-9.0 % Apical 2-9.0 % Apical 3-9.0 % Global Strain-9.0 % M-Mode Dimensions EPSS1.7 cm LA (MM)3.4 (1.6-4.0cm) Ao Root(MM)3.3 (2.0-3.7cm) Aortic Valve AoV VTI0.3 mAo Mean GR9.0 mmHgLVOT VTI0.20 m STEPHANIE (VMAX)1.9 cm2AVA (VTI) 1.9 cm2 Mitral Valve MV E Wbni826.3 cm/sDECEL Time78 ms P 1/2 T56 ms MVA (PHT)3.9 cm2 TDI E/E' Zhmwiv64.4E/E' Wucuzop70.8 Medial E' Peak V7.70 cm/sLateral E' Peak V12.70 cm/s Tricuspid Valve RAP (EST) 8 mmHgRVSP8.0 mmHg Left Ventricle The left ventricle is normal size. The inferior wall is severely hypokinetic. The other ibrahim are hyp okinetic. Moderate concentric hypertrophy of the left ventricle is noted. Left ventricle systolic fun ction is moderate to severely depressed, estimated LVEF 35 to 40%. E to E ratio is greater than 14, w hich is suggestive of increased left ventricle end-diastolic filling pressures. Right Ventricle The right ventricle is dilated. The right ventricular systolic function is normal. Atria The left atrium is mildly dilated, 40 mL/m. The right atrium is dilated. Aortic Valve Aortic valve is probably trileaflet. The leaflets are severely thickened and calcified. Trace aortic regurgitation. Mild aortic stenosis: Peak velocity 2.0 m/s, mean gradient 9 mmHg Mitral Valve Mild mitral annular calcification is noted. The leaflets are mild thickened and calcified. Trace mitr al regurgitation. There is no mitral valve stenosis. Tricuspid Valve The tricuspid valve is normal in structure. Trace tricuspid regurgitation. RVSP is grossly normal, bu t is likely underestimated. Pulmonic Valve Pulmonic valve is not well visualized. Great Vessels The aortic root is normal in size. The IVC is normal in size and collapses <50% with inspiration. Pericardium Trace pericardial effusion. Other Information Quality : Technically difficult due to body habitus Conclusion The left atrium is mildly dilated, 40 mL/m. The right atrium is dilated. The right ventricle is dilated. Moderate concentric hypertrophy of the left ventricle is noted. The inferior wall is severely hypokinetic. The other ibrahim are hypokinetic. Left ventricle systolic function is moderate to severely depressed, estimated LVEF 35 to 40%. E to E ratio is greater than 14, which is suggestive of increased left ventricle end-diastolic fillin g pressures. Mild aortic stenosis: Peak velocity 2.0 m/s, mean gradient 9 mmHg (likely underestimated). Trace aortic regurgitation. Trace mitral regurgitation. Trace pericardial effusion. PASP is grossly normal, but is likely under estimated. Trace pericardial effusion.
[2024-09-24 04:52] LABS: HEPATITIS B CORE AB TOTAL Non-Reactive (Nonreactive); HEPATITIS B SURFACE ANTIBODY Positive (Reactive); HEPATITIS B SURFACE ANTIGEN Non-Reactive (Nonreactive); HEPATITIS C ANTIBODY Non-Reactive (Nonreactive)
[2024-09-24 04:57] LABS: ABG BASE EXCESS -9.2 mmol/L (-2.0-3.0); ABG HCO3 14.7 mmol/L (21.0-28.0); ABG OXYGEN SATURATION 94.4 % (94.0-98.0); ABG PCO2 28 mmHg (35-48); ABG PH 7.347 (7.350-7.450); DEVICE COMMENT RR; PO2, ARTERIAL BG 73.8 mmHg (83.0-108.0); VENT MODE, BG NC 6L (ROOM AIR)
[2024-09-24 05:17] LABS: INR 0.97 (0.85-1.15); PROTHROMBIN TIME 10.9 SEC (9.6-11.6)
[2024-09-24 05:18] LABS: PARTIAL THROMBOPLASTIN TIME 54.8 SEC (26.3-35.5)
[2024-09-24 05:34] LABS: ALBUMIN 2.3 g/dL (3.5-5.0); BILIRUBIN,TOTAL 0.5 mg/dL (0.2-1.0); CREATININE 7.7 mg/dL (0.5-1.3); PHOSPHORUS 7.5 mg/dL (2.5-4.9); POTASSIUM 4.9 mmol/L (3.5-5.1); TOTAL PROTEIN, SERUM 6.4 g/dL (6.0-8.3)
[2024-09-24 06:00] LABS: BASOPHILS # (AUTO) 0.01 K/uL (0.00-0.20); BASOPHILS % (AUTO) 0.1 % (0.0-5.0); IMMATURE GRANULOCYTE ABSOLUTE 0.14 K/uL (0-1); LYMPHOCYTES # (AUTO) 0.3 K/uL (1.0-4.8); LYMPHOCYTES % (AUTO) 3.9 % (21.0-51.0); MEAN CORPUSCULAR HEMOGLOBIN 28.5 pg (27.0-33.0); MEAN CORPUSCULAR HGB CONC 33.2 g/dL (32.0-36.0); MONOCYTES # (AUTO) 0.3 K/uL (0.1-1.0); MONOCYTES % (AUTO) 3.7 % (3.0-13.0); NEUTROPHILS # (AUTO) 7.3 K/uL (1.8-7.7); NEUTROPHILS % (AUTO) 90.6 % (40.0-77.0); NUCLEATED RED BLOOD CELLS 0.5 % (0.0-0.19); PLATELET COUNT (AUTO) 229 K/uL (130-400); RED BLOOD CELL COUNT(AUTO) 2.42 MIL/uL (4.50-6.20); RED CELL DISTRIBUTION WIDTH 13.2 % (11.0-15.5)
[2024-09-24 06:06] LABS: HEMATOCRIT 20.8 % (42-54)
[2024-09-24] MEDS: INSULIN humuLIN R 100 UNIT/ML 3ML SQ SCH (06:15)
[2024-09-24 07:13] LABS: INR 0.97 (0.85-1.15); PROTHROMBIN TIME 10.9 SEC (9.6-11.6)
[2024-09-24 07:14] LABS: PARTIAL THROMBOPLASTIN TIME 56.8 SEC (26.3-35.5)
[2024-09-24 09:34] LABS: HEMATOCRIT 20.4 % (42-54)
--- NOTE | 2024-09-24 10:23 | HMCIMG ---
CHEST 1VW REASON: HD COMPARISON: 09/21/2024 FINDINGS: There are extensive bilateral infiltrates unchanged. There is mild cardiomegaly. There are no pleural effusions. There is a right IJ temporary dialysis catheter with tip in the superior vena cava, no evidence of pneumothorax. IMPRESSION: 1. Right IJ temporary dialysis catheter tip at the atrial caval junction, no pneumothorax. 2. Perihilar infiltrates unchanged.
--- NOTE | 2024-09-24 10:55 | HMCIMG ---
CHEST 1VW REASON: hypoxic resp failure COMPARISON: 09/23/2024 FINDINGS: There are diffuse bilateral infiltrates which are unchanged. Dialysis catheter remains in place. There is no pneumothorax or other complication. There are no pleural effusions. IMPRESSION: 1. Extensive bilateral infiltrates unchanged.
--- NOTE | 2024-09-24 11:58 | PN ---
[facility] PROGRESS NOTE Date of Service: Sep 24, 2024 Time of Service: 11:36 SUBJECTIVE: This is a 49-year-old male with past medical history of CKD not on hemodialysis, diabetes, hypertension, hyperlipidemia and obesity who presents to the ED for complaints of cough and chest congestion which started last Sunday and getting worse on Sunday. Patient reports coughing up pinkish colored thick phlegm, loss of appetite and on Sunday started not eating unable to sleep, vomiting and having chest pain triggered by persistent coughing he said.Patient reports having soreness due to hard cough he said.Patient reports having sweeling on both lower extremities and started having shortness of breath and today he started having non bloody diarrhea. Neela was at bedside during my evaluation. Upon arrival to ER a STEMI alert was activated per ER MD and spoke to [employer] consulting marine engineer and as per report patient is possibly going to cathlab tomorrow and patient is going to be started on Heparin and Insulin drip. Seen and examined patient in the Er awake,alert and coherent,appears weak looking.Patient denies fever,palpitation ,dizziness ,sore throat and headache. Latest vital signs temperature 98.1, heart rate 108, respiration 30 blood pressure 130/68 saturation 91% on 4 L nasal cannula. Labs: WBC 11.2, hemoglobin 9, hematocrit 27, platelet count 238, neutrophils 88. PH 7.32, CO2 26, PO2 49.6, bicarb 13, PO2 80 base excess -11.3. Sodium 129, potassium 5.9, chloride 93, CO2 19, BUN 88, creatinine 8.2, GFR seven glucose 876 , lactic acid 3.0-3.2, troponin 5531 albumin 2.1. Influenza A positive influenza B negative SARs COVID negative. Strep A negative. Chest x-ray result revealed extensive bilateral mid to lower lung pneumonia right greater than left. First ECG result revealed sinus tachycardia heart rate 121 probable left atrial enlargement repolarization abnormal suggest ischemia diffuse leads ST-elevation consider anterior injury. Second EKG result revealed sinus tachycardia repolarization abnormality suggest ischemia diffuse leads borderline ST elevation anterior leads heart rate 108. While in the ER patient received Tamiflu 75 mg p.o., 1 L NS bolus, Lopressor 5 mg IV, insulin 10 units IV, Zosyn IV, Zofran 4 mg IV and Phenergan codeine 10 mL p.o. we will admit patient in ICU for further medical management. 09/22/24 patient was seen and examined in ED bed 13. Today his vitals are 145/84, respiratory rate 22, SpO2 99% on 7 L nasal cannula, pulse rate 110. He complaints of cough with sputum, but says it is getting better than yesterday, denies shortness of breath or chest pain or dizziness. Nephrology was consulted and recommended to start Lasix 80 mg IV b.i.d and to start renal diabetic diet. He is currently on zosyn , doxycycline and Tamiflu. He is on IV insulin drip and glucose has come down from 8 0s to 400s. Pending Cardiology recommendations. He requires sleep study once he is discharged. 09/23/24 Patient was seen and examined in ED bed 13. Today his vitals are BP 132/78, PA 105, SpO2 96% on 4 L nasal cannula. Patient says his cough is getting better, no chest pain but complains of mild left lower abdominal pain and bloating, no bowel movement since yesterday morning. His renal function continues to decline , his creatinine is up from 8.1 to 8.4. Nephrology recommended PermCath to be placed by IR for hemodialysis. Cardiology recommended to continue aspirin 81 mg daily and metoprolol tartrate 12.5 mg and possible angiogram to assess coronary anatomy as his EKG showed sinus tachycardia, LAE and diffuse ischemia. Pending 2D echo results. 09/24/24 Patient was seen and examined in room 430. His vitals are blood pressure 129/73, pulse rate 109, respiratory rate 20, T-max 98.1, SpO2 94% on5 L nasal cannula. Patient complains of mild weakness when he moves from chair to the bed, otherwise has no complaints. Says he soiled the bed earlier this morning he was trying to get up to go to the restroom. Mitesh catheter was placed yesterday and 1L fluid was removed. Insulin drip was stopped last night currently his glucoses over 500. Remarkable labs are sodium 132, BUN 90, creatinine 7.7, calcium 7.2, phosphorus 7.5, hemoglobin dropped from 8.3-6.8 and hematocrit from 24.4-20.4, will transfuse one unit RBC. His respiratory cultures came back positive for Dunia albicans, we will start him on diflucan. MRSA DNA nasal swab was negative. 2D echo showed mildly dilated left atrium, dilated right atrium and ventricle, moderate concentric hypertrophy of left ventricle, severely hypokinetic inferior wall and LVEF 35-40% with mild aortic stenosis, trace aortic regurgitation, trace mitral regurgitation, trace pericardial effusi on. Cardiology recommended CT cardio angio with contrast once the patient is euvolemic. His hepatitis-C and HIV panel came back nonreactive, positive hepatitis-B surface antibody. CT abdomen and pelvis acute appearing infiltrates in both lung bases consistent with pneumonia but no acute finding in the abdomen or pelvis. REVIEW OF SYSTEMS CONSTITUTIONAL: Denies fevers, chills, or night sweats. No unintentional weight loss reported. NEUROLOGICAL: Denies headache, amaurosis fugax, motor weakness, sensory deficit, vertigo/spinning sensation, gait abnormalities, or tremors. ENT: No hearing loss, otalgia, otorrhea, rhinitis, rhinorrhea, hoarseness, or sore throat. CARDIOVASCULAR: Complaints of orthopnea shortness of breaths and chest pain Denies paroxysmal nocturnal dyspnea, palpitations, life-threatening arrhythmias, claudication. PULMONARY: Complaints of productive cough , pleuritic chest pain and shortness of breaths SLEEP: Complains of unable to sleep Denies morning headaches, daytime somnolence or napping. Denies waking from sleep. Denies knowledge of snoring. GASTROINTESTINAL: Complaints of loss of appetite, vomiting and diarrhea Denies any type of dysphagia to either liquids or solids. Denies nausea, vomiting, pyrosis, early satiety, abdominal pain, diarrhea, constipation, or changes in stool consistency or caliber. Denies coffee-ground emesis, hematemesis, hematochezia, or melanotic stools. GENITOURINARY: Denies frequency, urgency, nocturia, hematuria or incontinence (Storage/Irritative symptoms.) Low urinary stream, straining to void, urinary intermittency or hesitancy, splitting of the voiding stream, terminal dribbling. ENDOCRINOLOGIC: Denies polyuria, polydipsia, polyphagia or heat/cold intolerances. Patient reports not taking medications for diabetes because he was not eating. HEMATOLOGIC: Denies thrombophilia/previous clots, or coagulopathy/bleeding disorders. ONCOLOGIC: Denies personal history of malignancy. DERMATOLOGIC: Denies rashes or pruritus. PSYCHIATRIC: Denies any suicidal or homicidal ideation. Denies hallucinations. PHYSICAL EXAM GENERAL APPEARANCE: The patient is awake, alert, and oriented appears generally weak NEUROLOGICAL: Cranial nerves II-XII grossly intact. Motor is 5/5 in bilateral upper and lower extremities proximal to distal. No sensory deficits. HEENT: Face is symmetric. Pupils are equal and reactive. Extraocular movements are intact. NECK: Supple. No JVD. No thyromegaly. No submental, submandibular, pre- /postauricular, occipital or supraclavicular lymphadenopathy. CHEST: Normal chest expansion. No Telemetry. LUNGS: . Diminished lung sounds to bilateral lung james CARDIOVASCULAR: Tachycardic Regular. S1 and S2 normal. No appreciable rubs, murmurs or gallops. ABDOMEN: Round and firmed There is no rebound, voluntary guarding, or rigidity. : Deferred. No Del Cid. EXTREMITIES: Bilateral lower extremity edema No clubbing. Good capillary refill. SKIN: No skin breakdown. Vital Signs (last 8hr) Date Time Temp Pulse Resp B/P (MAP) Pulse Ox O2 Delivery O2 Flow Rate FiO2 09/24/24 11:20 109 20 129/73 Nasal Cannula 6.0 09/24/24 11:05 108 20 137/77 Nasal Cannula 6.0 09/24/24 10:56 106 20 09/24/24 10:50 106 20 133/80 Nasal Cannula 6.0 09/24/24 10:35 101 20 126/75 Nasal Cannula 6.0 09/24/24 10:20 105 20 123/71 Nasal Cannula 6.0 09/24/24 10:05 105 22 127/76 Nasal Cannula 6.0 09/24/24 09:50 105 22 123/77 Nasal Cannula 6.0 09/24/24 09:35 98.1 96 24 120/69 Nasal Cannula 6.0 09/24/24 09:00 97.7 103 22 120/60 Nasal Cannula 6.0 09/24/24 08:00 97.9 106 18 98/52 94 Nasal Cannula 5.0 09/24/24 06:57 101 20 N/Cannula Oximizer Hi LPM 6.0 09/24/24 06:55 101 20 09/24/24 03:59 98.4 104 19 125/71 96 Nasal Cannula 5.0 LABS: Laboratory: Test 09/24/24 11:02 09/24/24 08:54 09/24/24 06:49 09/24/24 06:03 Range/Units Whole Blood Glucose 178 #H 70-110 MG/DL Hemoglobin 6.8 *L 14.0-18.0 g/dL Hematocrit 20.4 *L 42-54 % Prothrombin Time 10.9 9.6-11.6 SEC Prothromb Time International Ratio 0.97 0.85-1.15 Activated Partial Thromboplast Time 56.8 H 26.3-35.5 SEC Bedside Glucose Comment Notified Nurse Test 09/24/24 04:54 09/24/24 04:17 09/23/24 22:00 09/23/24 19:16 Range/Units Blood Gas Specimen Type Arterial Arterial Blood pH 7.347 L 7.350-7.450 Arterial Blood Partial Pressure CO2 28 L 35-48 mmHg Arterial Blood Partial Pressure O2 73.8 L 83.0-108.0 mmHg Arterial Blood HCO3 14.7 L 21.0-28.0 mmol/L Arterial Blood Oxygen Saturation 94.4 94.0-98.0 % Arterial Blood Base Excess -9.2 L -2.0-3.0 mmol/L Blood Gas Temperature 37.0 35.5-37.0 CELSIUS Blood Gas Flow-by 6.00 0.00-15.00 L/min Blood Gas Vent Mode NC 6L ROOM AIR FiO2 44.0 % Blood Gas Specimen Comment RR White Blood Count 8.0 # 4.8-10.8 K/uL Red Blood Count 2.42 L 4.50-6.20 MIL/uL Mean Corpuscular Volume 86.0 79-99 fL Mean Corpuscular Hemoglobin 28.5 27.0-33.0 pg Mean Corpuscular Hemoglobin Concent 33.2 32.0-36.0 g/dL Red Cell Distribution Width 13.2 11.0-15.5 % Platelet Count 229 # 130-400 K/uL Mean Platelet Volume 11.7 H 7.5-10.5 fL Immature Granulocyte % (Auto) 1.7 H 0-1 % Neutrophils (%) (Auto) 90.6 H 40.0-77.0 % Lymphocytes (%) (Auto) 3.9 L 21.0-51.0 % Monocytes (%) (Auto) 3.7 3.0-13.0 % Eosinophils (%) (Auto) 0.0 0.0-8.0 % Basophils (%) (Auto) 0.1 0.0-5.0 % Neutrophils # (Auto) 7.3 1.8-7.7 K/uL Lymphocytes # (Auto) 0.3 L 1.0-4.8 K/uL Monocytes # (Auto) 0.3 0.1-1.0 K/uL Eosinophils # (Auto) 0.00 0.00-0.70 K/uL Basophils # (Auto) 0.01 0.00-0.20 K/uL Absolute Immature Granulocyte (auto 0.14 0-1 K/uL Nucleated Red Blood Cells 0.5 H 0.0-0.19 % Sodium Level 132 L 136-145 mmol/L Potassium Level 4.9 3.5-5.1 mmol/L Chloride Level 93 L 101-111 mmol/L Carbon Dioxide Level 20 L 21-32 mmol/L Blood Urea Nitrogen 90 *H 7-18 mg/dL Creatinine 7.7 H 0.5-1.3 mg/dL Glomerular Filtration Rate Calc 8 >90 mL/min Random Glucose 515 #*H 70-105 mg/dL Total Calcium 7.2 L 8.5-10.1 mg/dL Phosphorus Level 7.5 H 2.5-4.9 mg/dL Total Bilirubin 0.5 # 0.2-1.0 mg/dL Aspartate Amino Transf (AST/SGOT) 311 H 10-37 U/L Alanine Aminotransferase (ALT/SGPT) 190 #H 12-78 U/L Alkaline Phosphatase 78 50-136 U/L Total Protein 6.4 6.0-8.3 g/dL Albumin 2.3 #L 3.5-5.0 g/dL Whole Blood Ketones Quantitative 1.3 H 0.0-0.6 mmol/L Magnesium Level 1.90 1.80-2.40 mg/dL Ferritin 448 H 30-400 ng/mL Triglycerides Level 326 H 30-200 mg/dL Cholesterol Level 231 H <200 mg/dL LDL Cholesterol 149 H 0-99 mg/dL HDL Cholesterol 33 29-71 mg/dL Hepatitis B Surface Antigen. Non-Reactive Nonreactive Hepatitis B Surface Antibody. Positive Reactive Hepatitis B Core Total Antibody. Non-Reactive Nonreactive Hepatitis C Antibody Non-Reactive Nonreactive HIV (1&2) Antibody Non-Reactive Negative HIV P24 Antigen, Qualitative Non-Reactive Negative Test 09/23/24 07:08 09/23/24 07:02 09/22/24 15:00 Range/Units Hemoglobin A1c 12.9 H 4.0-6.0 % Estimated Average Glucose (eAG) 324 H 70-126 mg/dL Iron Level 80 65-175 mcg/dL Total Iron Binding Capacity 170 L 250-450 mcg/dL Percent Iron Saturation 47.0 H 30-44 % Thyroid Stimulating Hormone (TSH) 0.70 # 0.36-3.74 uIU/mL B-Type Natriuretic Peptide 1150 H 0-100 pg/mL Urine Color LIGHT-ORANGE YELLOW Urine Appearance TURBID CLEAR Urine pH 6.0 5.0-8.0 Urine Specific [place] 1.013 1.001-1.031 Urine Protein 600 H NEGATIVE mg/dL Urine Glucose (UA) 500 H NEGATIVE mg/dL Urine Ketones NEGATIVE NEGATIVE mg/dL Urine Occult Blood LARGE H NEGATIVE Urine Nitrate NEGATIVE NEGATIVE Urine Bilirubin NEGATIVE NEGATIVE mg/dL Urine Urobilinogen 0.2 0.2-1.0 mg/dL Urine Leukocyte Esterase 75 H NEGATIVE [place]/uL Urine RBC TNTC H 0-1 /HPF Urine WBC 11-25 H 0-1 /HPF Urine Squamous Epithelial Cells MANY 0-2 /HPF Urine Bacteria FEW None Seen /HPF Urine Opiates Screen NEGATIVE NEGATIVE Urine Barbiturates Screen NEGATIVE NEGATIVE Urine Phencyclidine Screen NEGATIVE NEGATIVE Urine Amphetamines Screen NEGATIVE NEGATIVE Urine Benzodiazepines Screen NEGATIVE NEGATIVE Urine Cocaine Screen NEGATIVE NEGATIVE Urine Marijuana (THC) Screen NEGATIVE NEGATIVE Current Medications Medications (Trade) Dose Ordered Sig/S[place] Route PRN Reason Start Time Stop Time Status Last Admin Dose Admin Acetaminophen (TYLenol 325MG TAB) 650 mg Q4H PRN PO MILD PAIN (1-3) 09/21/24 19:30 10/21/24 19:29 09/21/24 22:53 650 MG Acetaminophen (TYLenol 325MG TAB) 650 mg Q6H PRN PO TEMPERATURE GREATER THAN 101.5 09/21/24 19:30 10/21/24 19:29 Albuterol (DUOneb) 1 udvial [id number] IH 09/21/24 22:00 10/21/24 21:59 09/24/24 10:54 1 UDVIAL Aspirin (Aspirin 81mg Ec Tab) 81 mg DAILY PO 09/22/24 09:00 10/22/24 08:59 09/23/24 08:49 81 MG Atorvastatin Calcium (LIPItor 20MG) 20 mg HS PO 09/23/24 21:00 10/23/24 20:59 09/23/24 21:44 20 MG Atorvastatin Calcium (LIPItor 40MG) 40 mg HS PO 09/22/24 21:00 09/22/24 20:17 DC Azithromycin 250 ml @ 250 mls/hr Q24H IVPB 09/21/24 18:00 09/21/24 18:14 DC Cefepime HCl (MAXipime 1 GM vial) 1 gm Q24H IVPB 09/23/24 08:30 10/03/24 08:29 09/23/24 08:40 1 GM Chlordiazepoxide HCl (LIBrium 25 MG CAP) 25 mg Q2H PRN PO ALCOHOL WITHDRAWAL PROTOCOL 09/22/24 20:30 09/29/24 20:29 Chlordiazepoxide HCl (LIBrium 25 MG CAP) 50 mg Q1H PRN PO ALCOHOL WITHDRAWAL PROTOCOL 09/22/24 20:30 09/29/24 20:29 Clopidogrel Bisulfate (plaVIX 75MG) 75 mg DAILY PO 09/24/24 09:00 10/24/24 08:59 Dextrose/Sodium Chloride 1,000 ml @ 0 mls/hr AD IV 09/22/24 00:00 09/23/24 21:23 DC 09/22/24 09:49 150 MLS/HR Doxycycline Hyclate (Doxycycline Hyclate) 100 mg BID PO 09/21/24 21:00 10/01/24 20:59 09/23/24 21:42 100 MG Famotidine (Pepcid 20mg Vial) 10 mg DAILY IV 09/22/24 09:00 10/22/24 08:59 09/23/24 08:40 10 MG Famotidine (Pepcid 20mg Tab) 10 mg Q48H PO 09/21/24 19:30 09/21/24 20:00 DC Ferrous Sulfate (Ferrous Sulfate) 325 mg DAILY PO 09/23/24 09:00 10/23/24 08:59 09/23/24 08:39 325 MG Fish Oil (Fish Oil 1000 Mg/Cap) 2,000 mg BID PO 09/22/24 21:00 10/22/24 20:59 09/23/24 21:42 2,000 MG Furosemide (LASix 40MG VIAL) 80 mg Q12H IV 09/22/24 21:00 10/22/24 20:59 09/23/24 21:42 80 MG Guaifenesin/ Dextromethorphan (RobiTUSSin DM 200/20MG 10ML) 10 ml Q4H PRN PO COUGH 09/21/24 19:30 10/21/24 19:29 09/23/24 22:06 10 ML Heparin Sodium (Porcine) (HEParin 5,000 UNIT VIAL) *calculation based on ACTUAL B... AD PRN IV HEPARIN PROTOCOL 09/21/24 19:30 10/21/24 19:29 Heparin Sodium/ Dextrose 250 ml @ 0 mls/hr Q6H IV 09/21/24 19:30 10/21/24 19:29 09/23/24 19:27 14.7 MLS/HR Insulin Glargine (LANtus 100 UNITS/ML 10 ML VIAL) 10 units BID@0730,2100 SQ 09/22/24 21:00 10/22/24 20:59 09/24/24 06:16 10 UNITS Insulin Human Regular (humuLIN R 100 UNIT/ML 3ML) INSULIN SLIDING SCAL... ACHS SQ 09/24/24 07:30 10/24/24 07:29 09/24/24 06:15 20 UNIT Insulin Human Regular 100 unit/ Sodium Chloride 101 ml @ 0 mls/hr PROTOCOL IV 09/21/24 20:00 09/23/24 21:20 DC 09/21/24 21:01 9.8 MLS/HR Insulin Human Regular 100 unit/ Sodium Chloride 101 ml @ 0 mls/hr PROTOCOL IV 09/22/24 00:00 09/22/24 00:03 DC Magnesium Sulfate 50 ml @ 0 mls/hr PROTOCOL IV 09/22/24 00:00 09/23/24 21:23 DC Magnesium Sulfate 50 ml @ 0 mls/hr PROTOCOL PRN IV OTH 09/22/24 00:00 09/22/24 00:04 DC 09/21/24 23:52 25 MLS/HR Mannitol 245 ml @ 0 mls/hr AD IV 09/22/24 00:30 09/22/24 20:17 DC Mannitol 500 ml @ 0 mls/hr AD IV 09/22/24 00:30 09/22/24 14:33 DC Mannitol (Osmitrol 20% 250ml Bag) 49 gm AD IV 09/22/24 00:00 09/22/24 00:28 DC Methylprednisolone Sodium Succinate (Solu-medROL 40MG) 40 mg BID IVP 09/22/24 09:00 10/22/24 08:59 09/23/24 21:42 40 MG Metoprolol Tartrate (loprESSOR) 12.5 mg BID PO 09/22/24 21:00 10/22/24 20:59 09/23/24 21:42 12.5 MG Miscellaneous Medication (Folic Acid/ Vitamin B Comp W-C (Ila-[place] Tablet)) 1 tab DAILY PO 09/23/24 09:00 09/22/24 15:56 DC Multivitamins Therapeutic (Multivitamin Tablet) 1 tab DAILY PO 09/23/24 09:00 10/23/24 08:59 09/23/24 08:39 1 TAB Nifedipine (adALAT 30MG) 60 mg DAILY PO 09/23/24 09:00 10/23/24 08:59 09/23/24 08:39 60 MG Nitroglycerin (Nitroglycerin 1gm Oint) 0.5 inch Q8H TD 09/21/24 19:30 10/21/24 19:29 09/23/24 21:44 0.5 INCH Oseltamivir Phosphate (Tamiflu) 75 mg DAILY PO 09/22/24 09:00 09/23/24 13:29 DC 09/23/24 08:38 75 MG Oseltamivir Phosphate (Tamiflu) 75 mg QTUTHSA[DIALYSIS] PO 09/23/24 16:00 09/23/24 17:04 DC Oseltamivir Phosphate (Tamiflu) 75 mg QTUTHSA[DIALYSIS] PO 09/23/24 22:00 09/28/24 21:59 09/23/24 22:44 75 MG Pharmacy Profile Note (Pharmacy Communication) 1 each ONCE MISC 09/23/24 13:00 09/23/24 13:25 DC Pharmacy Profile Note (Pharmacy Communication) 1 each ONCE MISC 09/23/24 21:30 09/24/24 07:08 DC Pharmacy Profile Note (Pharmacy Communication) 1 each PROTOCOL PRN MISC ETOH Withdrawal Score changes 09/22/24 20:30 09/29/24 20:29 Piperacillin Sod/ Tazobactam Sod 50 ml @ 12.5 mls/hr Q12H IV 09/21/24 21:00 09/23/24 08:06 DC 09/22/24 20:43 12.5 MLS/HR Potassium Chloride 20 meq/ Sodium Chloride 1,010 ml @ 0 mls/hr PROTOCOL IV 09/22/24 00:00 09/23/24 21:23 DC Potassium Chloride/Dextrose/ Sod Cl 1,000 ml @ 0 mls/hr AD IV 09/22/24 00:00 09/23/24 21:23 DC Sodium Bicarbonate (Sodium Bicarbonate) 650 mg TID PO 09/24/24 09:00 10/24/24 08:59 Sodium Chloride 1,000 ml @ 0 mls/hr ONCE IV 09/23/24 19:30 10/23/24 19:29 09/23/24 19:53 1,000 MLS/HR Sodium Chloride 1,000 ml @ 100 mls/hr Q10H IV 09/21/24 19:30 10/21/24 19:29 09/23/24 12:53 100 MLS/HR Sodium Chloride 1,000 ml @ 200 mls/hr PROTOCOL IV 09/22/24 00:00 09/23/24 21:23 DC Thiamine HCl 100 mg/Folic Acid 1 mg/Multivitamins/ Minerals 10 ml/ Sodium Chloride 1,011.2 ml @ 100 mls/ hr Q24H IV 09/22/24 20:30 09/25/24 06:37 09/22/24 20:43 100 MLS/HR Vancomycin HCl 250 ml @ 125 mls/hr Q72H IV 09/22/24 20:30 09/23/24 08:04 DC 09/22/24 20:48 125 MLS/HR Vancomycin HCl (Vancomycin 500mg+NS 100ml Ivpb) 1,000 mg DAILY08 IV 09/23/24 08:00 09/22/24 20:26 DC Vancomycin HCl (Vancomycin 750mg) 750 mg Q24H IVPB 09/23/24 23:30 09/26/24 23:29 09/24/24 00:04 750 MG Vitamin B Complex/ Vit C/Folic Acid (Nephrovite Tablet) 1 cap DAILY PO 09/23/24 09:00 10/23/24 08:59 09/23/24 08:39 1 CAP DIAGNOSTICS / RADIOLOGY: PATIENT: ABRAHAM,ADRIANA MR#: [id number] : 1975 SEX: M AGE: 49 LOCATION: [facility] ORDER 16 STATUS: ADM IN REPORT#: [id number] SERVICE 06 REASON: FVO ORDERING PHYSICIAN: FELIX BARBOSA NP PROCEDURE: ECHO CMP - ECHO 2-D COMPLETE APPROVED REPORT EXAM: Two-dimensional and M-mode echocardiogram with Doppler and color Doppler. INDICATION ICD: Fluid volume overload 2D Dimensions RVDd 4.4 cm LVEF(%) 41.1 (>50%) LVED Vol(simp.) 176.0 mL IVSd 1.0 (0.7-1.1cm) FS(%) 20 % LVES Vol(simp.) 104.0 mL LVDd 5.4 (3.8-5.6cm) LA (2D) 4.1 (1.6-4.0cm) LVEF(%, simp.) 41 % PWd 1.4 (0.7-1.1cm) Ao Root(2D) 2.9 (2.0-3.7cm) LA ESV INDEX (4CH) 33.40 mL/m2 IVSs 1.2 cm LVOT diam 2.0 (1.8-2.4cm) LA ESV INDEX (2CH) 45.20 mL/m2 LVDs 4.3 (2.5-4.0cm) IVC diam 2.1 cm LA ESV INDEX (BP) 39.50 mL/m2 PWs 2.0 cm Deformation Strain Apical 4 -9.0 % Apical 2 -9.0 % Apical 3 -9.0 % Global Strain -9.0 % M-Mode Dimensions EPSS 1.7 cm LA (MM) 3.4 (1.6-4.0cm) Ao Root(MM) 3.3 (2.0-3.7cm) Aortic Valve AoV VTI 0.3 m Ao Mean GR 9.0 mmHg LVOT VTI 0.20 m STEPHANIE (VMAX) 1.9 cm2 STEPHANIE (VTI) 1.9 cm2 Mitral Valve MV E Vmax 149.3 cm/s DECEL Time 78 ms P 1/2 T 56 ms MVA (PHT) 3.9 cm2 TDI E/E' Medial 19.4 E/E' Lateral 11.8 Medial E' Peak V 7.70 cm/s Lateral E' Peak V 12.70 cm/s Tricuspid Valve RAP (EST) 8 mmHg RVSP 8.0 mmHg Left Ventricle The left ventricle is normal size. The inferior wall is severely hypokinetic. The other ibrahim are hypokinetic. Moderate concentric hypertrophy of the left ventricle is noted. Left ventricle systolic function is moderate to severely depressed, estimated LVEF 35 to 40%. E to E ratio is greater than 14, which is suggestive of increased left ventricle end-diastolic filling pressures. Right Ventricle The right ventricle is dilated. The right ventricular systolic function is normal. Atria The left atrium is mildly dilated, 40 mL/m. The right atrium is dilated. Aortic Valve Aortic valve is probably trileaflet. The leaflets are severely thickened and calcified. Trace aortic regurgitation. Mild aortic stenosis: Peak velocity 2.0 m/s, mean gradient 9 mmHg Mitral Valve Mild mitral annular calcification is noted. The leaflets are mild thickened and calcified. Trace mitral regurgitation. There is no mitral valve stenosis. Tricuspid Valve The tricuspid valve is normal in structure. Trace tricuspid regurgitation. RVSP is grossly normal, but is likely underestimated. Pulmonic Valve Pulmonic valve is not well visualized. Great Vessels The aortic root is normal in size. The IVC is normal in size and collapses <50% with inspiration. Pericardium Trace pericardial effusion. Other Information Quality : Technically difficult due to body habitus Conclusion The left atrium is mildly dilated, 40 mL/m. The right atrium is dilated. The right ventricle is dilated. Moderate concentric hypertrophy of the left ventricle is noted. The inferior wall is severely hypokinetic. The other ibrahim are hypokinetic. Left ventricle systolic function is moderate to severely depressed, estimated LVEF 35 to 40%. E to E ratio is greater than 14, which is suggestive of increased left ventricle end-diastolic filling pressures. Mild aortic stenosis: Peak velocity 2.0 m/s, mean gradient 9 mmHg (likely underestimated). Trace aortic regurgitation. Trace mitral regurgitation. Trace pericardial effusion. PASP is grossly normal, but is likely under estimated. Trace pericardial effusion. DICTATED BY: RONALD AGUAYO MD DATE: 09/23/24 0731 ELECTRONICALLY SIGNED BY: RONALD AGUAYO MD DATE: 09/24/24 0109 PATIENT: ADRIANA ABRAHAM MR#: [id number] : 1975 SEX: M AGE: 49 LOCATION: [facility] ORDER 2300 STATUS: ADM IN REPORT#: [id number] SERVICE 0600 REASON: hypoxic resp failure ORDERING PHYSICIAN: SHAVON ARAGON PROCEDURE: CXR1VW - CHEST 1VW CHEST 1VW REASON: hypoxic resp failure COMPARISON: 09/23/2024 FINDINGS: There are diffuse bilateral infiltrates which are unchanged. Dialysis catheter remains in place. There is no pneumothorax or other complication. There are no pleural effusions. IMPRESSION: 1. Extensive bilateral infiltrates unchanged. DICTATED BY: ARMANDO FAIR MD DATE: 09/24/24 1051 ELECTRONICALLY SIGNED BY: ARMANDO FAIR MD DATE: 09/24/24 105 ASSESSMENT: Hyperosmolar Hyperglycemic Syndrome POA NSTEMI POA Influenza bronchopneumonia with sepsis POA Acute Hypoxemic Respiratory Failure POA Acute on chronic renal failure with concern for ATN POA Metabolic acidosis POA Lactic acidosis POA CKD stage 4 POA Uncontrolled Diabetes POA Protein Calorie malnutrition POA PLAN: Start him on antifungals Hemodialysis today CT cardio angio to assess coronary anatomy Start him on renal diabetic diet We will start NS @ 100 ml / hr and re evaluate Continue Heparin drip per ACs protocol started by ER Patient on Doxycycline po and Zosyn renally dose We will continue Tamiflu 75mg po daily Continue Aspirin 81 mg po daily and metoprolol 12.5 mg b.i.d. Start atorvastatin 20 mg at night 300 mg of Plavix x1 then75 mg daily as per cardiology We will start on Famotidine 20 mg IV daily for GI prophylaxis Home medication reconciled Follow up Cardiology, critical Care, Nephrology recommendations We will request labs in am Further orders to follow depending on above results ATTESTATION BY PHYSICIAN I have seen and examined the patient. I reviewed the documentation, medical decision making, and treatment plan as noted by the resident provider above. I agree with the findings and plan of care. BhadriDieudonne sanderson MD, NIHITHA MD Sep 24, 2024 11:58
[2024-09-24] MEDS: cloPIDOgrel 75MG TAB PO SCH (12:08)
[2024-09-24] MEDS: SODIUM BICARBONATE 650 MG TAB PO SCH (12:09)
[2024-09-24] MEDS ORDERED: COMPOUND IV REFRIGERATED 1 EACH IVSOLN MISC PRN (13:00)
--- NOTE | 2024-09-24 15:47 | PN ---
[facility] PROGRESS NOTE Date Patient Seen: Sep 24, 2024 Time of Visit: 1247 Supervising Physician: Dr. BRADY Primary Care Physician: Gama Acosta Outpatient Specialists: [ ] Inpatient Consults: Cardiology, nephrology and critical care team PROBLEM LIST: Acute Hypoxemic Respiratory Failure, POA Nstemi,likely Type II POA on Heparin gtt Bilateral Pneumonia, POA Influenza A Infection, POA Sepsis Due To Bilateral Pneumonia And Influenza A Infection, POA Acute Hypoxemic Respiratory Failure, POA Esrd, POA Dka, POA Acute Metabolic Acidosis In The Context Of Dka and SAURABH , Poa Hyperkalemia In The Context Of Chronic Kidney Injury, Poa Morbid Obesity, Poa INTERVAL HISTORY: 09/22/2024: At the time my evaluation, the patient was in the emergency department awaiting bed assignment. The staff nurse reports no acute events overnight. The patient was on a Oxymizer with optimal SpO2. He was normotensive without the need for pressor therapy. There was no complaint of chest pain. There was no abdominal pain, nausea vomiting or diarrhea. The patient continued on a insulin drip per the DKA protocol. He was started on antibiotic and antiviral therapy for management of his condition. Review of labs today showed no major concern on CBC. Chemistry panel did show a sodium of 135, chloride of 100 and a CO2 of 20 with a anion gap of 15. Blood glucose remains elevated in the 300s. No new complaint. 09/23- saw patient and ED 13 awake alert and oriented x3. 2D echo at bedside being performed. Patient has been afebrile heart rate of 110, blood pressure 116/63 with respiratory rate of 20 saturating 97% with 7 L via nasal cannula oximizer. Urine output 1.4 L in the last 24 hours. On laboratory WBCs are 11.4 H&H trending down 7.6/23.1 with a platelet count that is 178 K. on chemistry sodium 136 potassium of 3.7 chloride 100 carbon dioxide of 19 BUN 106. Creatinine of 8.6 and GFR of 7. Per Dr Armenta pt scheduled for a Mitesh hemodi alysis catheter per IR today. Pt continues with Tamiflu, Doxy, Cefepime and MRSA coverage will be added w/ vanco due to suspected MRSA superimposed pneumonia on Influenza pneumonia. On CT chest, abdomen and pelvis shows Acute appearing infiltrates in both lung bases consistent with pneumoniae. No acute finding in the abdomen or pelvis. Del Cid catheter in good position in the urinary bladder. We will continue to follow Neprhology recommendations. 09/24 patient was seen and examined at bedside with primary nurse present. Patient to receive1 unit PRBCs hemoglobin this a.m. 6.8. Continue to monitor closely. Patient to continue on IV antibiotics. Patient's troponin levels trending down. We will continue to follow recommendations of Cardiology. Patient remains hypoxic requiring supplemental oxygen via nasal cannula at L. Patient states does not use home oxygen. Patient is to continue on heparin drip. Patient to continue on IV steroids. Patient's echocardiogram revealed EF of 35-40%. Patient's blood cultures have been negative x2 days. Patient remains high risk for decompensation. REVIEW OF SYSTEMS: 12 point ROS reviewed with patient. Pertinent positives mentioned above. Otherwise negative. PHYSICAL EXAM: GENERAL: alert, weak, awake oriented x 3 HEENT: EOMI, Sclera non icteric, moist mucosa NECK: Supple, no JVD, trachea midline LUNGS: Diminished breath sounds bilaterally. No wheezes HEART: Regular rate and rhythm. Normal S1 and S2, without murmurs ABD: Abdomen soft, nontender. Bowel sounds present EXT: No clubbing cyanosis or edema NEURO: Alert and oriented to person, follows commands Vital Signs (last 8hr) Date Time Temp Pulse Resp B/P (MAP) Pulse Ox O2 Delivery O2 Flow Rate FiO2 09/24/24 14:17 100 20 09/24/24 12:21 97.2 107 20 132/73 Nasal Cannula 6.0 09/24/24 12:05 97.2 106 24 137/73 Nasal Cannula 6.0 09/24/24 12:00 97.2 106 18 133/80 98 Nasal Cannula 5.0 09/24/24 11:50 107 20 133/73 Nasal Cannula 6.0 09/24/24 11:35 107 20 133/75 Nasal Cannula 6.0 09/24/24 11:20 109 20 129/73 Nasal Cannula 6.0 09/24/24 11:05 108 20 137/77 Nasal Cannula 6.0 09/24/24 10:56 106 20 09/24/24 10:50 106 20 133/80 Nasal Cannula 6.0 09/24/24 10:35 101 20 126/75 Nasal Cannula 6.0 09/24/24 10:20 105 20 123/71 Nasal Cannula 6.0 09/24/24 10:05 105 22 127/76 Nasal Cannula 6.0 09/24/24 09:50 105 22 123/77 Nasal Cannula 6.0 09/24/24 09:35 98.1 96 24 120/69 Nasal Cannula 6.0 09/24/24 09:00 97.7 103 22 120/60 Nasal Cannula 6.0 09/24/24 08:00 97.9 106 18 98/52 94 Nasal Cannula 5.0 LABS: Hematology Labs: Test 09/24/24 08:54 09/24/24 04:17 Range/Units Hemoglobin 6.8 *L 14.0-18.0 g/dL Hematocrit 20.4 *L 42-54 % White Blood Count 8.0 # 4.8-10.8 K/uL Red Blood Count 2.42 L 4.50-6.20 MIL/uL Mean Corpuscular Volume 86.0 79-99 fL Mean Corpuscular Hemoglobin 28.5 27.0-33.0 pg Mean Corpuscular Hemoglobin Concent 33.2 32.0-36.0 g/dL Red Cell Distribution Width 13.2 11.0-15.5 % Platelet Count 229 # 130-400 K/uL Mean Platelet Volume 11.7 H 7.5-10.5 fL Immature Granulocyte % (Auto) 1.7 H 0-1 % Neutrophils (%) (Auto) 90.6 H 40.0-77.0 % Lymphocytes (%) (Auto) 3.9 L 21.0-51.0 % Monocytes (%) (Auto) 3.7 3.0-13.0 % Eosinophils (%) (Auto) 0.0 0.0-8.0 % Basophils (%) (Auto) 0.1 0.0-5.0 % Neutrophils # (Auto) 7.3 1.8-7.7 K/uL Lymphocytes # (Auto) 0.3 L 1.0-4.8 K/uL Monocytes # (Auto) 0.3 0.1-1.0 K/uL Eosinophils # (Auto) 0.00 0.00-0.70 K/uL Basophils # (Auto) 0.01 0.00-0.20 K/uL Absolute Immature Granulocyte (auto 0.14 0-1 K/uL Nucleated Red Blood Cells 0.5 H 0.0-0.19 % Chemistry Labs: Test 09/24/24 11:02 09/24/24 06:03 09/24/24 04:17 09/23/24 22:00 Range/Units Whole Blood Glucose 178 #H 70-110 MG/DL Bedside Glucose Comment Notified Nurse Sodium Level 132 L 136-145 mmol/L Potassium Level 4.9 3.5-5.1 mmol/L Chloride Level 93 L 101-111 mmol/L Carbon Dioxide Level 20 L 21-32 mmol/L Blood Urea Nitrogen 90 *H 7-18 mg/dL Creatinine 7.7 H 0.5-1.3 mg/dL Glomerular Filtration Rate Calc 8 >90 mL/min Random Glucose 515 #*H 70-105 mg/dL Total Calcium 7.2 L 8.5-10.1 mg/dL Phosphorus Level 7.5 H 2.5-4.9 mg/dL Total Bilirubin 0.5 # 0.2-1.0 mg/dL Aspartate Amino Transf (AST/SGOT) 311 H 10-37 U/L Alanine Aminotransferase (ALT/SGPT) 190 #H 12-78 U/L Alkaline Phosphatase 78 50-136 U/L Total Protein 6.4 6.0-8.3 g/dL Albumin 2.3 #L 3.5-5.0 g/dL Whole Blood Ketones Quantitative 1.3 H 0.0-0.6 mmol/L Magnesium Level 1.90 1.80-2.40 mg/dL Test 09/23/24 19:16 09/23/24 07:08 09/23/24 07:02 Range/Units Ferritin 448 H 30-400 ng/mL Triglycerides Level 326 H 30-200 mg/dL Cholesterol Level 231 H <200 mg/dL LDL Cholesterol 149 H 0-99 mg/dL HDL Cholesterol 33 29-71 mg/dL Hemoglobin A1c 12.9 H 4.0-6.0 % Estimated Average Glucose (eAG) 324 H 70-126 mg/dL Iron Level 80 65-175 mcg/dL Total Iron Binding Capacity 170 L 250-450 mcg/dL Percent Iron Saturation 47.0 H 30-44 % Thyroid Stimulating Hormone (TSH) 0.70 # 0.36-3.74 uIU/mL B-Type Natriuretic Peptide 1150 H 0-100 pg/mL Coagulation Labs: Test 09/24/24 06:49 Range/Units Prothrombin Time 10.9 9.6-11.6 SEC Prothromb Time International Ratio 0.97 0.85-1.15 Activated Partial Thromboplast Time 56.8 H 26.3-35.5 SEC DIAGNOSTICS / RADIOLOGY RESULTS: na PLAN NEURO: Minimize central acting medications as possible. Maintain fall precautions, adequate lighting during the day PULMONARY: Supplemental 02 as needed. Maintain aspiration precautions at all times CARDIOVASCULAR: Follow hemodynamics. Vital signs per facility protocol GI & NUTRITION: Continue with nutritional support. Continue stool softeners and laxatives as needed. KIDNEYS & ELECTROLYTES: Strict monitoring of intake, output and overall fluid balance. Avoid nephrotoxic medications to the extent possible. Medications to be dosed according to renal function. Monitor electrolytes and replace as needed ENDOCRINE: Maintain blood glucose between 100-180 at all times. Hypoglycemia protocol in place INFECTIOUS DISEASE: Trend temperature, WBC and procalcitonin level Follow cultures, deescalate antibiotics as soon as possible. Panculture if new onset fever ONCOLOGY/HEMATOLOGY/COAGULATION: Monitor for s/s of bleeding Monitor hemoglobin, coagulation studies as needed SKIN: Pressure ulcer prevention per facility protocol Specialty mattress ORTHO/REHAB: Continue PT/OT Prophylaxis: Continue GI and DVT prophylaxis Code Status: Full Resuscitation Disposition: TBD Other: Total patient care time exceeds 35 minutes excluding all procedures. RACHEL RAMSEY Sep 24, 2024 15:47
[2024-09-24] MEDS ORDERED: metoPROLOL tartRATE 1 MG/ML 5ML VIAL IV ONE (15:57)
--- NOTE | 2024-09-24 16:28 | NUR ---
CT CARDIAC ANGIO Not able to do procedure due to heart rate above 80, Dr. Gonzales notify pending further orders.
--- NOTE | 2024-09-24 16:40 | NUR ---
TOPROL New order from Dr. Gonzales start TOPROL 50mg po this evening and tomorrow AM, if heart rate still above 80, give addtitional dose of Toprol 50mg for CT cardiac angio, orders carried out, patient aware.
--- NOTE | 2024-09-24 17:32 | PN ---
[facility] CARDIOLOGY PROGRESS NOTE Date Patient Seen: Sep 24, 2024 Time of Visit: 17:26 Problem List: NSTEMI Volume overload 2/2 progression of ESRD Influenza A, Tamiflu started on 09/22/2024 Bilateral pneumonia HHS and DKA, on Insulin gtt HTN HLD DM type II 2D echo on 04/06/2024 demonstrated an EF of 45-50% Lexiscan stress test on 04/07/2024 demonstrated a fixed basal mid inferolateral and basal inferior defect with no reversible ischemia Unable to pursue a coronary angiogram due to risk of contrast induced nephropathy Interval History: [No acute events overnight , currently undergoing HD session , he denies any chest pain, palpitations, dyspnea or any other anginal equivalents. Due to his decreasing Hb we will defer any invasive testing at this time ] Physical Examination: GENERAL: No acute distress. On 4 L of O2 via NC. HEAD: Normal with no signs of head trauma. EYES: PERRLA, EOMI, conjunctiva and sclera normal. ENT: Hearing grossly intact, normal oropharynx. NECK: Supple without JVD. There is no tenderness, lymphadenopathy, or masses. No thyromegaly. Normal carotid upstrokes without bruits. LUNGS: Crackles to bases bilaterally. HEART: Tachycardic rate and normal rhythm. Normal S1 and S2 without murmurs, gallop or rub. VASC: BLE 2+ pitting edema ABD: Bowel sounds normal, soft, nontender, no masses, no organomegaly. No audible bruits. : Not examined LYMPH: No lymphadenopathy noted. EXT: No clubbing, cyanosis or edema. SKIN: No rashes or lesions noted. NEURO: Awake, alert, and oriented x3. No focal sensory or strength deficits noted. Laboratory: [ ] Hematology Labs: Test 09/24/24 08:54 09/24/24 04:17 Range/Units Hemoglobin 6.8 *L 14.0-18.0 g/dL Hematocrit 20.4 *L 42-54 % White Blood Count 8.0 # 4.8-10.8 K/uL Red Blood Count 2.42 L 4.50-6.20 MIL/uL Mean Corpuscular Volume 86.0 79-99 fL Mean Corpuscular Hemoglobin 28.5 27.0-33.0 pg Mean Corpuscular Hemoglobin Concent 33.2 32.0-36.0 g/dL Red Cell Distribution Width 13.2 11.0-15.5 % Platelet Count 229 # 130-400 K/uL Mean Platelet Volume 11.7 H 7.5-10.5 fL Immature Granulocyte % (Auto) 1.7 H 0-1 % Neutrophils (%) (Auto) 90.6 H 40.0-77.0 % Lymphocytes (%) (Auto) 3.9 L 21.0-51.0 % Monocytes (%) (Auto) 3.7 3.0-13.0 % Eosinophils (%) (Auto) 0.0 0.0-8.0 % Basophils (%) (Auto) 0.1 0.0-5.0 % Neutrophils # (Auto) 7.3 1.8-7.7 K/uL Lymphocytes # (Auto) 0.3 L 1.0-4.8 K/uL Monocytes # (Auto) 0.3 0.1-1.0 K/uL Eosinophils # (Auto) 0.00 0.00-0.70 K/uL Basophils # (Auto) 0.01 0.00-0.20 K/uL Absolute Immature Granulocyte (auto 0.14 0-1 K/uL Nucleated Red Blood Cells 0.5 H 0.0-0.19 % Chemistry Labs: Test 09/24/24 17:14 09/24/24 04:17 09/23/24 22:00 09/23/24 19:16 Range/Units Whole Blood Glucose 431 #*H 70-110 MG/DL Bedside Glucose Comment Notified Nurse Sodium Level 132 L 136-145 mmol/L Potassium Level 4.9 3.5-5.1 mmol/L Chloride Level 93 L 101-111 mmol/L Carbon Dioxide Level 20 L 21-32 mmol/L Blood Urea Nitrogen 90 *H 7-18 mg/dL Creatinine 7.7 H 0.5-1.3 mg/dL Glomerular Filtration Rate Calc 8 >90 mL/min Random Glucose 515 #*H 70-105 mg/dL Total Calcium 7.2 L 8.5-10.1 mg/dL Phosphorus Level 7.5 H 2.5-4.9 mg/dL Total Bilirubin 0.5 # 0.2-1.0 mg/dL Aspartate Amino Transf (AST/SGOT) 311 H 10-37 U/L Alanine Aminotransferase (ALT/SGPT) 190 #H 12-78 U/L Alkaline Phosphatase 78 50-136 U/L Total Protein 6.4 6.0-8.3 g/dL Albumin 2.3 #L 3.5-5.0 g/dL Whole Blood Ketones Quantitative 1.3 H 0.0-0.6 mmol/L Magnesium Level 1.90 1.80-2.40 mg/dL Ferritin 448 H 30-400 ng/mL Triglycerides Level 326 H 30-200 mg/dL Cholesterol Level 231 H <200 mg/dL LDL Cholesterol 149 H 0-99 mg/dL HDL Cholesterol 33 29-71 mg/dL Test 09/23/24 07:08 09/23/24 07:02 Range/Units Hemoglobin A1c 12.9 H 4.0-6.0 % Estimated Average Glucose (eAG) 324 H 70-126 mg/dL Iron Level 80 65-175 mcg/dL Total Iron Binding Capacity 170 L 250-450 mcg/dL Percent Iron Saturation 47.0 H 30-44 % Thyroid Stimulating Hormone (TSH) 0.70 # 0.36-3.74 uIU/mL B-Type Natriuretic Peptide 1150 H 0-100 pg/mL Coagulation Labs: Test 09/24/24 06:49 Range/Units Prothrombin Time 10.9 9.6-11.6 SEC Prothromb Time International Ratio 0.97 0.85-1.15 Activated Partial Thromboplast Time 56.8 H 26.3-35.5 SEC Diagnostics / Radiology: [Copy/Paste Echos/Imaging Report here] Impression and Plan: NSTEMI Volume overload 2/2 progression of ESRD Influenza A, Tamiflu started on 09/22/2024 Bilateral pneumonia HHS and DKA, on Insulin gtt HTN HLD DM type II 2D echo on 04/06/2024 demonstrated an EF of 45-50% Lexiscan stress test on 04/07/2024 demonstrated a fixed basal mid inferolateral and basal inferior defect with no reversible ischemia Unable to pursue a coronary angiogram due to risk of contrast induced nephro amadou NSTEMI Troponin of 5531, 5716, 8278, and 6392 EKG demonstrated sinus tachycardia with a heart rate of 121 beats per minute, LAE, and diffuse ischemia On heparin drip per ACS protocol, started -Continue Aspirin 81 mg daily, Metoprolol tartrate 12.5mg bid, and start Atorvastatin 20 mg nightly -Continue Plavix 75mg daily -TTE showed severely hypokinetic inferior wall, EF 35-40 % -The patient is undergoing hemodialysis today. -Current Hb is 6.9 , due to his worsening anemia we will defer any invasive procedures at this time - We will order a coronary CT to assess for CAD Thank you for this consult cardiology will continue to follow along,. formal recommendations pending CCTA results ATTESTATION BY PHYSICIAN I have seen and examined the patient, reviewed the above documentation, participated in medical decision making, made necessary modifications, and agree with the treatment plan as documented by my mid-level provider above. MD JIMBO Rick JAMES R MD Sep 24, 2024 17:32
[2024-09-24] MEDS: EPOETIN ALFA-EPBX (NON-ESRD) 10,000 UNIT/ML VIAL SQ ONE (18:43)
[2024-09-24] MEDS: metOPROLol sucCINATE 50 MG TAB.SR.24H PO ONE (19:43)
[2024-09-24] MEDS: metOPROLol sucCINATE 50 MG TAB.SR.24H PO SCH (19:45)
[2024-09-24] MEDS: GABApentin 100 MG CAPSULE PO SCH (19:50)
--- NOTE | 2024-09-24 20:54 | PN ---
SUBJECTIVE: The patient has been evaluated. Seen several times. The patient is seen for dialysis. He remains quite anemic. He has been ordered to have Epogen also, as needed transfusion may be needed. The patient is generally weak. All the other system unchanged. PHYSICAL EXAMINATION: GENERAL: Pale, obese, lying in bed. VITAL SIGNS: Blood pressure is 132/70, pulse 107, respiratory rate is 18, afebrile. HEENT: Head is atraumatic. Pupils are round and reactive. Sclerae are anicteric. Conjunctivae not pale. Oral mucosa is not dry. NECK: Without masses or bruits. Thyroid is palpable. Neck has no bruits. CHEST: Shows equal thoracic percussion note being resonant in all areas. CARDIAC: Regular rhythm, no rub, no S3, S4. No parasternal heave. ABDOMEN: No guarding or tenderness. Bowel sounds are normoactive. No free fluid. LABORATORY DATA: Labs have been reviewed. Old records reviewed. PROBLEMS: Renal failure, anemia and multiple other comorbidities. PLAN: To continue dialysis support. Continue monitoring of renal function. Continue monitoring of electrolytes. Intake, output, weight will be monitored. The patient has been evaluated and seen for dialysis and seen several times. Overall condition remained guarded. The patient was seen several times today. TID: [id number] RECEIPT: [id number]
--- NOTE | 2024-09-24 21:53 | PN ---
NEPHROLOGY NOTE SUBJECTIVE: The patient has been evaluated and seen for dialysis and seen several times. He has second dialysis being done. He will need eventually PermCath. He has a temporary catheter in place. No fever, chills or rigors. No cough, expectoration or hemoptysis. No abdominal pain, no nausea or vomiting. No chest pain, no orthopnea. Other systemic review is unchanged. PHYSICAL EXAMINATION: GENERAL: Pale, no other distress or deformities, lying in bed. VITAL SIGNS: Blood pressure is 118/70, respiratory rate 18. NECK: Supple. No masses or bruits. Thyroid is palpable. Neck has no bruits. LABORATORY DATA: Labs have been reviewed. Old records reviewed. PROBLEMS: Renal failure, anemia, underlying diabetic nephropathy, hypertension. PLAN: Dialysis to continue. Seen for dialysis, seen multiple times. I have discussed with other team members. We will continue to follow closely. Condition remained guarded. Thank you for this patient. TID: [id number] RECEIPT: [id number]
[2024-09-25] VITALS (12 sets, daily range): BP systolic 79–132; BP diastolic 51–70; PULSE 70–99; RESP 18–22; TEMP 97.7–98.6; O2SAT 94–97
[2024-09-25 05:31] LABS: BASOPHILS # (AUTO) 0.02 K/uL (0.00-0.20); BASOPHILS % (AUTO) 0.2 % (0.0-5.0); HEMATOCRIT 23.2 % (42-54); IMMATURE GRANULOCYTE ABSOLUTE 0.54 K/uL (0-1); LYMPHOCYTES # (AUTO) 0.8 K/uL (1.0-4.8); LYMPHOCYTES % (AUTO) 6.4 % (21.0-51.0); MEAN CORPUSCULAR HEMOGLOBIN 28.7 pg (27.0-33.0); MEAN CORPUSCULAR HGB CONC 33.6 g/dL (32.0-36.0); MEAN CORPUSCULAR VOLUME 85.3 fL (79-99); MONOCYTES # (AUTO) 0.7 K/uL (0.1-1.0); MONOCYTES % (AUTO) 5.5 % (3.0-13.0); NEUTROPHILS % (AUTO) 83.4 % (40.0-77.0); NUCLEATED RED BLOOD CELLS 1.2 % (0.0-0.19); PLATELET COUNT (AUTO) 249 K/uL (130-400); RED BLOOD CELL COUNT(AUTO) 2.72 MIL/uL (4.50-6.20); RED CELL DISTRIBUTION WIDTH 13.2 % (11.0-15.5)
[2024-09-25 06:14] LABS: ALBUMIN 2.4 g/dL (3.5-5.0); BILIRUBIN,TOTAL 0.4 mg/dL (0.2-1.0); CREATININE 7.4 mg/dL (0.5-1.3); PHOSPHORUS 8.9 mg/dL (2.5-4.9); POTASSIUM 5.5 mmol/L (3.5-5.1); TOTAL PROTEIN, SERUM 6.3 g/dL (6.0-8.3)
[2024-09-25 06:16] LABS: VANCOMYCIN TROUGH 26.9 UG/ML (10.0-20.0)
[2024-09-25] MEDS: metOPROLol sucCINATE 50 MG TAB.SR.24H PO ONE (08:37)
--- NOTE | 2024-09-25 09:56 | NUR ---
Nutrition consult per nutrition education Reviewed labs, notes, and medications. Pt on 4L N.[place], on 60 gm cho + renal, iv fluid, insulin, IV abx, lasix, fish oil, hyponatremia 132, elevated BUN 90, elevated Cr 7.7, hypergylcemia 520, A1C 12.9, b-complex, Fe, MVI per chart review. Wt via standing scale, 75%PO intake, last BM 09/24/24, no edema, well nourished, no wounds, HD output 1L 09/23/24 per nursing. Dietetic student present during visit. Student reviewed MNT for T2DM + HH+ renal diets, reviewed labs, encouraged Pt to be complaint with HD appointments. Pt reported NKFA, has nausea, last BM 09/24/24, good appetite, 75 %PO intake, sees PCP every 3 months, checks BG BID, does not have a HD center yet. Recommendations: -Provide 60 gm + renal diet + prostat jello tid w/ trays -Fluid restriction per MD -Monitor PO intake -Encourage PO intake as able -Monitor BM -If no BM >3 days consider stool softener -Monitor electrolytes -Replenish electrolytes per protocol -Monitor wts -Reweigh as able -Order Vit D, vit b-12 labs to rule out deficiencies -Provide NEPHRO-BRANDEE QD -Recommend Pt to follow up with PCP -Monitor goals of care RD to follow + available for consult per protocol Addendum: 09/25/24 at [address] Amended: Links added.
[2024-09-25] MEDS: IpraTROPium/alBUTERol SULFATE 3 ML SOLUTION IH SCH (11:35)
--- NOTE | 2024-09-25 13:52 | PN ---
[facility] PROGRESS NOTE Date of Service: Sep 25, 2024 Time of Service: 13:42 SUBJECTIVE: This is a 49-year-old male with past medical history of CKD not on hemodialysis, diabetes, hypertension, hyperlipidemia and obesity who presents to the ED for complaints of cough and chest congestion which started last Sunday and getting worse on Sunday. Patient reports coughing up pinkish colored thick phlegm, loss of appetite and on Sunday started not eating unable to sleep, vomiting and having chest pain triggered by persistent coughing he said.Patient reports having soreness due to hard cough he said.Patient reports having sweeling on both lower extremities and started having shortness of breath and today he started having non bloody diarrhea. Neela was at bedside during my evaluation. Upon arrival to ER a STEMI alert was activated per ER MD and spoke to Social Services Manager career technical education teacher and as per report patient is possibly going to cathlab tomorrow and patient is going to be started on Heparin and Insulin drip. Seen and examined patient in the Er awake,alert and coherent,appears weak looking.Patient denies fever,palpitation ,dizziness ,sore throat and headache. Latest vital signs temperature 98.1, heart rate 108, respiration 30 blood pressure 130/68 saturation 91% on 4 L nasal cannula. Labs: WBC 11.2, hemoglobin 9, hematocrit 27, platelet count 238, neutrophils 88. PH 7.32, CO2 26, PO2 49.6, bicarb 13, PO2 80 base excess -11.3. Sodium 129, potassium 5.9, chloride 93, CO2 19, BUN 88, creatinine 8.2, GFR seven glucose 876 , lactic acid 3.0-3.2, troponin 5531 albumin 2.1. Influenza A positive influenza B negative SARs COVID negative. Strep A negative. Chest x-ray result revealed extensive bilateral mid to lower lung pneumonia right greater than left. First ECG result revealed sinus tachycardia heart rate 121 probable left atrial enlargement repolarization abnormal suggest ischemia diffuse leads ST-elevation consider anterior injury. Second EKG result revealed sinus tachycardia repolarization abnormality suggest ischemia diffuse leads borderline ST elevation anterior leads heart rate 108. While in the ER patient received Tamiflu 75 mg p.o., 1 L NS bolus, Lopressor 5 mg IV, insulin 10 units IV, Zosyn IV, Zofran 4 mg IV and Phenergan codeine 10 mL p.o. we will admit patient in ICU for further medical management. 09/22/24 patient was seen and examined in ED bed 13. Today his vitals are 145/84, respiratory rate 22, SpO2 99% on 7 L nasal cannula, pulse rate 110. He complaints of cough with sputum, but says it is getting better than yesterday, denies shortness of breath or chest pain or dizziness. Nephrology was consulted and recommended to start Lasix 80 mg IV b.i.d and to start renal diabetic diet. He is currently on zosyn , doxycycline and Tamiflu. He is on IV insulin drip and glucose has come down from 8 0s to 400s. Pending Cardiology recommendations. He requires sleep study once he is discharged. 09/23/24 Patient was seen and examined in ED bed 13. Today his vitals are BP 132/78, SC 105, SpO2 96% on 4 L nasal cannula. Patient says his cough is getting better, no chest pain but complains of mild left lower abdominal pain and bloating, no bowel movement since yesterday morning. His renal function continues to decline , his creatinine is up from 8.1 to 8.4. Nephrology recommended PermCath to be placed by IR for hemodialysis. Cardiology recommended to continue aspirin 81 mg daily and metoprolol tartrate 12.5 mg and possible angiogram to assess coronary anatomy as his EKG showed sinus tachycardia, LAE and diffuse ischemia. Pending 2D echo results. 09/24/24 Patient was seen and examined in room 430. His vitals are blood pressure 129/73, pulse rate 109, respiratory rate 20, T-max 98.1, SpO2 94% on5 L nasal cannula. Patient complains of mild weakness when he moves from chair to the bed, otherwise has no complaints. Says he soiled the bed earlier this morning he was trying to get up to go to the restroom. Mitesh catheter was placed yesterday and 1L fluid was removed. Insulin drip was stopped last night currently his glucoses over 500. Remarkable labs are sodium 132, BUN 90, creatinine 7.7, calcium 7.2, phosphorus 7.5, hemoglobin dropped from 8.3-6.8 and hematocrit from 24.4-20.4, will transfuse one unit RBC. His respiratory cultures came back positive for Dunia albicans, we will start him on diflucan. MRSA DNA nasal swab was negative. 2D echo showed mildly dilated left atrium, dilated right atrium and ventricle, moderate concentric hypertrophy of left ventricle, severely hypokinetic inferior wall and LVEF 35-40% with mild aortic stenosis, trace aortic regurgitation, trace mitral regurgitation, trace pericardial effusi on. Cardiology recommended CT cardio angio with contrast once the patient is euvolemic. His hepatitis-C and HIV panel came back nonreactive, positive hepatitis-B surface antibody. CT abdomen and pelvis acute appearing infiltrates in both lung bases consistent with pneumonia but no acute finding in the abdomen or pelvis. 09/25/24 Patient was seen and examined at bedside. He is hemodynamically stable, has no complaints. He denies chest pain or shortness of breath or dizziness or palpitations or abdominal pain, he complains of shortness of breath with minimal exertion, his hemoglobin improved to 8.3 He is still pending a coronary a ngiography. Was started on metoprolol by cardiology. Will follow nephrology recommendations on dialysis. Yesterday 1.2 L was ultrafiltered. Continue diflucan. Plan is to consult cardiovascular surgeon for AV access for outpatient hemodialysis. REVIEW OF SYSTEMS CONSTITUTIONAL: Denies fevers, chills, or night sweats. No unintentional weight loss reported. NEUROLOGICAL: Denies headache, amaurosis fugax, motor weakness, sensory deficit, vertigo/spinning sensation, gait abnormalities, or tremors. ENT: No hearing loss, otalgia, otorrhea, rhinitis, rhinorrhea, hoarseness, or sore throat. CARDIOVASCULAR: Complaints of orthopnea shortness of breaths and chest pain Denies paroxysmal nocturnal dyspnea, palpitations, life-threatening arrhythmias, claudication. PULMONARY: Complaints of productive cough , pleuritic chest pain and shortness of breaths SLEEP: Complains of unable to sleep Denies morning headaches, daytime somnolence or napping. Denies waking from sleep. Denies knowledge of snoring. GASTROINTESTINAL: Complaints of loss of appetite, vomiting and diarrhea Denies any type of dysphagia to either liquids or solids. Denies nausea, vomiting, pyrosis, early satiety, abdominal pain, diarrhea, constipation, or changes in stool consistency or caliber. Denies coffee-ground emesis, hematemesis, hematochezia, or melanotic stools. GENITOURINARY: Denies frequency, urgency, nocturia, hematuria or incontinence (Storage/Irritative symptoms.) Low urinary stream, straining to void, urinary intermittency or hesitancy, splitting of the voiding stream, terminal dribbling. ENDOCRINOLOGIC: Denies polyuria, polydipsia, polyphagia or heat/cold intolerances. Patient reports not taking medications for diabetes because he was not eating. HEMATOLOGIC: Denies thrombophilia/previous clots, or coagulopathy/bleeding disorders. ONCOLOGIC: Denies personal history of malignancy. DERMATOLOGIC: Denies rashes or pruritus. PSYCHIATRIC: Denies any suicidal or homicidal ideation. Denies hallucinations. PHYSICAL EXAM GENERAL APPEARANCE: The patient is awake, alert, and oriented appears generally weak NEUROLOGICAL: Cranial nerves II-XII grossly intact. Motor is 5/5 in bilateral upper and lower extremities proximal to distal. No sensory deficits. HEENT: Face is symmetric. Pupils are equal and reactive. Extraocular movements are intact. NECK: Supple. No JVD. No thyromegaly. No submental, submandibular, pre-/postauricular, occipital or supraclavicular lymphadenopathy. CHEST: Normal chest expansion. No Telemetry. LUNGS: . Diminished lung sounds to bilateral lung james CARDIOVASCULAR: Tachycardic Regular. S1 and S2 normal. No appreciable rubs, murmurs or gallops. ABDOMEN: Round and firmed There is no rebound, voluntary guarding, or rigidity. : Deferred. No Del Cid. EXTREMITIES: Bilateral lower extremity edema No clubbing. Good capillary refill. SKIN: No skin breakdown. Vital Signs (last 8hr) Date Time Temp Pulse Resp B/P (MAP) Pulse Ox O2 Delivery O2 Flow Rate FiO2 09/25/24 12:00 97.7 85 18 124/67 94 09/25/24 11:38 85 20 5.0 40 09/25/24 11:35 87 20 09/25/24 08:00 98.2 89 18 132/69 91 LABS: Laboratory: Test 09/25/24 11:36 09/25/24 06:20 09/25/24 05:09 09/24/24 19:44 Range/Units Whole Blood Glucose 290 H 70-110 MG/DL Activated Partial Thromboplast Time 51.4 H 26.3-35.5 SEC White Blood Count 12.0 H 4.8-10.8 K/uL Red Blood Count 2.72 L 4.50-6.20 MIL/uL Hemoglobin 7.8 L 14.0-18.0 g/dL Hematocrit 23.2 L 42-54 % Mean Corpuscular Volume 85.3 79-99 fL Mean Corpuscular Hemoglobin 28.7 27.0-33.0 pg Mean Corpuscular Hemoglobin Concent 33.6 32.0-36.0 g/dL Red Cell Distribution Width 13.2 11.0-15.5 % Platelet Count 249 130-400 K/uL Mean Platelet Volume 11.4 H 7.5-10.5 fL Immature Granulocyte % (Auto) 4.5 H 0-1 % Neutrophils (%) (Auto) 83.4 H 40.0-77.0 % Lymphocytes (%) (Auto) 6.4 L 21.0-51.0 % Monocytes (%) (Auto) 5.5 3.0-13.0 % Eosinophils (%) (Auto) 0.0 0.0-8.0 % Basophils (%) (Auto) 0.2 0.0-5.0 % Neutrophils # (Auto) 10.0 H 1.8-7.7 K/uL Lymphocytes # (Auto) 0.8 L 1.0-4.8 K/uL Monocytes # (Auto) 0.7 0.1-1.0 K/uL Eosinophils # (Auto) 0.00 0.00-0.70 K/uL Basophils # (Auto) 0.02 0.00-0.20 K/uL Absolute Immature Granulocyte (auto 0.54 0-1 K/uL Nucleated Red Blood Cells 1.2 H 0.0-0.19 % Sodium Level 138 136-145 mmol/L Potassium Level 5.5 H 3.5-5.1 mmol/L Chloride Level 99 L 101-111 mmol/L Carbon Dioxide Level 25 21-32 mmol/L Blood Urea Nitrogen 87 *H 7-18 mg/dL Creatinine 7.4 H 0.5-1.3 mg/dL Glomerular Filtration Rate Calc 8 >90 mL/min Random Glucose 304 H 70-105 mg/dL Total Calcium 7.7 L 8.5-10.1 mg/dL Phosphorus Level 8.9 H 2.5-4.9 mg/dL Total Bilirubin 0.4 0.2-1.0 mg/dL Aspartate Amino Transf (AST/SGOT) 164 H 10-37 U/L Alanine Aminotransferase (ALT/SGPT) 248 H 12-78 U/L Alkaline Phosphatase 141 H 50-136 U/L Total Protein 6.3 6.0-8.3 g/dL Albumin 2.4 L 3.5-5.0 g/dL Vitamin B12 Level 981 193-986 pg/mL Vancomycin Level Trough 26.9 *H 10.0-20.0 UG/ML Bedside Glucose Comment Notified Nurse Test 09/24/24 06:49 09/24/24 04:54 09/23/24 22:00 09/23/24 19:16 Range/Units Prothrombin Time 10.9 9.6-11.6 SEC Prothromb Time International Ratio 0.97 0.85-1.15 Blood Gas Specimen Type Arterial Arterial Blood pH 7.347 L 7.350-7.450 Arterial Blood Partial Pressure CO2 28 L 35-48 mmHg Arterial Blood Partial Pressure O2 73.8 L 83.0-108.0 mmHg Arterial Blood HCO3 14.7 L 21.0-28.0 mmol/L Arterial Blood Oxygen Saturation 94.4 94.0-98.0 % Arterial Blood Base Excess -9.2 L -2.0-3.0 mmol/L Blood Gas Temperature 37.0 35.5-37.0 CELSIUS Blood Gas Flow-by 6.00 0.00-15.00 L/min Blood Gas Vent Mode NC 6L ROOM AIR FiO2 44.0 % Blood Gas Specimen Comment RR Whole Blood Ketones Quantitative 1.3 H 0.0-0.6 mmol/L Magnesium Level 1.90 1.80-2.40 mg/dL Ferritin 448 H 30-400 ng/mL Triglycerides Level 326 H 30-200 mg/dL Cholesterol Level 231 H <200 mg/dL LDL Cholesterol 149 H 0-99 mg/dL HDL Cholesterol 33 29-71 mg/dL Hepatitis B Surface Antigen. Non-Reactive Nonreactive Hepatitis B Surface Antibody. Positive Reactive Hepatitis B Core Total Antibody. Non-Reactive Nonreactive Hepatitis C Antibody Non-Reactive Nonreactive HIV (1&2) Antibody Non-Reactive Negative HIV P24 Antigen, Qualitative Non-Reactive Negative Current Medications Medications (Trade) Dose Ordered Sig/Sierra Route PRN Reason Start Time Stop Time Status Last Admin Dose Admin Acetaminophen (TYLenol 325MG TAB) 650 mg Q4H PRN PO MILD PAIN (1-3) 09/21/24 19:30 10/21/24 19:29 09/21/24 22:53 650 MG Acetaminophen (TYLenol 325MG TAB) 650 mg Q6H PRN PO TEMPERATURE GREATER THAN 101.5 09/21/24 19:30 10/21/24 19:29 Albuterol (DUOneb) 1 udvial [id number] IH 09/21/24 22:00 09/25/24 09:59 DC 09/25/24 06:43 1 UDVIAL Albuterol (DUOneb) 1 udvial [id number] IH 09/25/24 10:00 10/21/24 21:59 09/25/24 11:35 1 UDVIAL Aspirin (Aspirin 81mg Ec Tab) 81 mg DAILY PO 09/22/24 09:00 10/22/24 08:59 09/25/24 08:36 81 MG Atorvastatin Calcium (LIPItor 20MG) 20 mg HS PO 09/23/24 21:00 10/23/24 20:59 09/24/24 19:45 20 MG Atorvastatin Calcium (LIPItor 40MG) 40 mg HS PO 09/22/24 21:00 09/22/24 20:17 DC Azithromycin 250 ml @ 250 mls/hr Q24H IVPB 09/21/24 18:00 09/21/24 18:14 DC Cefepime HCl (MAXipime 1 GM vial) 1 gm Q24H IVPB 09/23/24 08:30 10/03/24 08:29 09/25/24 08:36 1 GM Chlordiazepoxide HCl (LIBrium 25 MG CAP) 25 mg Q2H PRN PO ALCOHOL WITHDRAWAL PROTOCOL 09/22/24 20:30 09/29/24 20:29 Chlordiazepoxide HCl (LIBrium 25 MG CAP) 50 mg Q1H PRN PO ALCOHOL WITHDRAWAL PROTOCOL 09/22/24 20:30 09/29/24 20:29 Clopidogrel Bisulfate (plaVIX 75MG) 75 mg DAILY PO 09/24/24 09:00 10/24/24 08:59 09/25/24 08:38 75 MG Dextrose/Sodium Chloride 1,000 ml @ 0 mls/hr AD IV 09/22/24 00:00 09/23/24 21:23 DC 09/22/24 09:49 150 MLS/HR Doxycycline Hyclate (Doxycycline Hyclate) 100 mg BID PO 09/21/24 21:00 10/01/24 20:59 09/25/24 08:37 100 MG Famotidine (Pepcid 20mg Vial) 10 mg DAILY IV 09/22/24 09:00 10/22/24 08:59 09/25/24 08:36 10 MG Famotidine (Pepcid 20mg Tab) 10 mg Q48H PO 09/21/24 19:30 09/21/24 20:00 DC Ferrous Sulfate (Ferrous Sulfate) 325 mg DAILY PO 09/23/24 09:00 10/23/24 08:59 09/25/24 08:37 325 MG Fish Oil (Fish Oil 1000 Mg/Cap) 2,000 mg BID PO 09/22/24 21:00 10/22/24 20:59 09/25/24 08:37 2,000 MG Furosemide (LASix 40MG VIAL) 80 mg Q12H IV 09/22/24 21:00 10/22/24 20:59 09/25/24 08:36 80 MG Gabapentin (NEURontin 100 mg CAP) 100 mg TID PO 09/24/24 21:00 10/24/24 20:59 09/25/24 08:38 100 MG Guaifenesin/ Dextromethorphan (RobiTUSSin DM 200/20MG 10ML) 10 ml Q4H PRN PO COUGH 09/21/24 19:30 10/21/24 19:29 09/23/24 22:06 10 ML Heparin Sodium (Porcine) (HEParin 5,000 UNIT VIAL) *calculation based on ACTUAL B... AD PRN IV HEPARIN PROTOCOL 09/21/24 19:30 10/21/24 19:29 Heparin Sodium/ Dextrose 250 ml @ 0 mls/hr Q6H IV 09/21/24 19:30 10/21/24 19:29 09/25/24 04:13 14.7 MLS/HR Insulin Glargine (LANtus 100 UNITS/ML 10 ML VIAL) 10 units BID@0730,2100 SQ 09/22/24 21:00 10/22/24 20:59 09/24/24 20:18 10 UNITS Insulin Human Regular (humuLIN R 100 UNIT/ML 3ML) INSULIN SLIDING SCAL... ACHS SQ 09/24/24 07:30 10/24/24 07:29 09/25/24 12:43 14 UNIT Insulin Human Regular 100 unit/ Sodium Chloride 101 ml @ 0 mls/hr PROTOCOL IV 09/21/24 20:00 09/23/24 21:20 DC 09/21/24 21:01 9.8 MLS/HR Insulin Human Regular 100 unit/ Sodium Chloride 101 ml @ 0 mls/hr PROTOCOL IV 09/22/24 00:00 09/22/24 00:03 DC Magnesium Sulfate 50 ml @ 0 mls/hr PROTOCOL IV 09/22/24 00:00 09/23/24 21:23 DC Magnesium Sulfate 50 ml @ 0 mls/hr PROTOCOL PRN IV OTH 09/22/24 00:00 09/22/24 00:04 DC 09/21/24 23:52 25 MLS/HR Mannitol 245 ml @ 0 mls/hr AD IV 09/22/24 00:30 09/22/24 20:17 DC Mannitol 500 ml @ 0 mls/hr AD IV 09/22/24 00:30 09/22/24 14:33 DC Mannitol (Osmitrol 20% 250ml Bag) 49 gm AD IV 09/22/24 00:00 09/22/24 00:28 DC Methylprednisolone Sodium Succinate (Solu-medROL 40MG) 40 mg BID IVP 09/22/24 09:00 10/22/24 08:59 09/25/24 08:36 40 MG Metoprolol Succinate (TopROL XL) 50 mg BID PO 09/24/24 21:00 10/24/24 20:59 09/24/24 19:45 50 MG Metoprolol Tartrate (loprESSOR) 12.5 mg BID PO 09/22/24 21:00 09/24/24 16:38 DC 09/24/24 12:07 12.5 MG Miscellaneous Medication (Folic Acid/ Vitamin B Comp W-C (Ila-[place] Tablet)) 1 tab DAILY PO 09/23/24 09:00 09/22/24 15:56 DC Multivitamins Therapeutic (Multivitamin Tablet) 1 tab DAILY PO 09/23/24 09:00 10/23/24 08:59 09/25/24 08:37 1 TAB Nifedipine (adALAT 30MG) 60 mg DAILY PO 09/23/24 09:00 10/23/24 08:59 09/25/24 08:37 60 MG Nitroglycerin (Nitroglycerin 1gm Oint) 0.5 inch Q8H TD 09/21/24 19:30 10/21/24 19:29 09/25/24 12:44 0.5 INCH Oseltamivir Phosphate (Tamiflu) 75 mg DAILY PO 09/22/24 09:00 09/23/24 13:29 DC 09/23/24 08:38 75 MG Oseltamivir Phosphate (Tamiflu) 75 mg QTUTHSA[DIALYSIS] PO 09/23/24 16:00 09/23/24 17:04 DC Oseltamivir Phosphate (Tamiflu) 75 mg QTUTHSA[DIALYSIS] PO 09/23/24 22:00 09/28/24 21:59 09/24/24 12:08 75 MG Pharmacy Profile Note (Pharmacy Communication) 1 each ONCE MISC 09/23/24 13:00 09/23/24 13:25 DC Pharmacy Profile Note (Pharmacy Communication) 1 each ONCE MISC 09/23/24 21:30 09/24/24 07:08 DC Pharmacy Profile Note (Pharmacy Communication) 1 each PROTOCOL PRN MISC ETOH Withdrawal Score changes 09/22/24 20:30 09/29/24 20:29 Piperacillin Sod/ Tazobactam Sod 50 ml @ 12.5 mls/hr Q12H IV 09/21/24 21:00 09/23/24 08:06 DC 09/22/24 20:43 12.5 MLS/HR Potassium Chloride 20 meq/ Sodium Chloride 1,010 ml @ 0 mls/hr PROTOCOL IV 09/22/24 00:00 09/23/24 21:23 DC Potassium Chloride/Dextrose/ Sod Cl 1,000 ml @ 0 mls/hr AD IV 09/22/24 00:00 09/23/24 21:23 DC Sodium Bicarbonate (Sodium Bicarbonate) 650 mg TID PO 09/24/24 09:00 10/24/24 08:59 09/25/24 08:38 650 MG Sodium Chloride 1,000 ml @ 0 mls/hr ONCE IV 09/23/24 19:30 10/23/24 19:29 09/23/24 19:53 1,000 MLS/HR Sodium Chloride 1,000 ml @ 100 mls/hr Q10H IV 09/21/24 19:30 10/21/24 19:29 09/23/24 12:53 100 MLS/HR Sodium Chloride 1,000 ml @ 200 mls/hr PROTOCOL IV 09/22/24 00:00 09/23/24 21:23 DC Thiamine HCl 100 mg/Folic Acid 1 mg/Multivitamins/ Minerals 10 ml/ Sodium Chloride 1,011.2 ml @ 100 mls/ hr Q24H IV 09/22/24 20:30 09/25/24 06:37 DC 09/22/24 20:43 100 MLS/HR Vancomycin HCl 250 ml @ 125 mls/hr Q72H IV 09/22/24 20:30 09/23/24 08:04 DC 09/22/24 20:48 125 MLS/HR Vancomycin HCl (Vancomycin 500mg+NS 100ml Ivpb) 1,000 mg DAILY08 IV 09/23/24 08:00 09/22/24 20:26 DC Vancomycin HCl (Vancomycin 750mg) 750 mg MWFPHD IVPB 09/26/24 16:00 10/03/24 23:29 Vancomycin HCl (Vancomycin 750mg) 750 mg Q24H IVPB 09/23/24 23:30 09/25/24 06:26 DC 09/24/24 22:43 750 MG Vitamin B Complex/ Vit C/Folic Acid (Nephrovite Tablet) 1 cap DAILY PO 09/23/24 09:00 10/23/24 08:59 09/25/24 08:37 1 CAP DIAGNOSTICS / RADIOLOGY: [ ] ASSESSMENT: Hyperosmolar Hyperglycemic Syndrome POA NSTEMI POA Influenza bronchopneumonia with sepsis POA Acute Hypoxemic Respiratory Failure POA Acute on chronic renal failure with concern for ATN POA Metabolic acidosis POA Lactic acidosis POA CKD stage 4 POA Uncontrolled Diabetes POA Protein Calorie malnutrition POA PLAN: Start him on antifungals Hemodialysis today CT cardio angio to assess coronary anatomy Start him on renal diabetic diet We will start NS @ 100 ml / hr and re evaluate Continue Heparin drip per ACs protocol started by ER Patient on Doxycycline po and Zosyn renally dose We will continue Tamiflu 75mg po daily Continue Aspirin 81 mg po daily and metoprolol 12.5 mg b.i.d. Start atorvastatin 20 mg at night 300 mg of Plavix x1 then75 mg daily as per cardiology We will start on Famotidine 20 mg IV daily for GI prophylaxis Home medication reconciled Follow up Cardiology, critical Care, Nephrology recommendations We will request labs in am Further orders to follow depending on above results ATTESTATION BY PHYSICIAN I have seen and examined the patient. I reviewed the documentation, medical decision making, and treatment plan as noted by the resident provider above. I agree with the findings and plan of care. Dieudonne Farley MD, NIHITHA MD Sep 25, 2024 13:52
--- NOTE | 2024-09-25 15:10 | PN ---
NEPHROLOGY PROGRESS NOTE Date/Time Patient Seen: Sep 25, 2024 Reason for Consultation: 15:05 SUBJECTIVE: This is a 49-year-old male with past medical history of CKD, diabetes, hypertension, hyperlipidemia and obesity He presents to the ED for complaints of cough and chest congestion Patient reports coughing up pinkish colored thick phlegm, loss of appetite and on Sunday Continues to be followed by Cardiology Chest x-ray result revealed extensive bilateral mid to lower lung pneumonia right greater than left. Positive for influenza A, he has been started on Tamiflu. He was noted with elevated BUN/creatinine. We will has been consulted for renal failure. Renal function continued to worsen He has been initiated on renal replacement therapy He has been tolerating dialysis without difficulty. He is pending CT cardiac anterior procedure later today. He was seen in the medical floor, in no acute distress Family at the bedside Prognosis remains guarded Condition is critical and guarded REVIEW OF SYSTEMS: GENERAL: Positive for cough, congestion and generalized weakness NEUROLOGIC: Negative for any blurry vision, blind spots, double vision, facial asymmetry, dysphagia, dysarthria, hemiparesis, hemisensory deficits, vertigo, at axia. HEENT: Negative for any head trauma, neck trauma, neck stiffness, photophobia, phonophobia, sinusitis, rhinitis. CARDIAC: Negative for any chest pain, dyspnea on exertion, paroxysmal nocturnal dyspnea, peripheral edema. PULMONARY: Negative for any shortness of breath, wheezing, COPD, or TB exposure. GASTROINTESTINAL: Negative for any abdominal pain, nausea, vomiting, bright red blood per rectum, melena. GENITOURINARY: Negative for any dysuria, hematuria, incontinence. INTEGUMENTARY: Negative for any rashes, cuts, insect bites. RHEUMATOLOGIC: Negative for any joint pains, photosensitive rashes, history of vasculitis or kidney problems. HEMATOLOGIC: Negative for any abnormal bruising, frequent infections or bleedin g. PHYSICAL EXAM: GENERAL: Alert and oriented x 3. No acute distress. Well-nourished. EYES: EOMI. Anicteric. HENT: Moist mucous membranes. No scleral icterus. No cervical lymphadenopathy. LUNGS: Clear to auscultation bilaterally. No accessory muscle use. CARDIOVASCULAR: Regular rate and rhythm. No murmur. No JVD. ABDOMEN: Soft, non-tender and non-distended. No palpable masses. EXTREMITIES: No edema. Non-tender. SKIN: No rashes or lesions. Warm. NEUROLOGIC: No focal neurological deficits. CN II-XII grossly intact, but not individually tested. PSYCHIATRIC: Cooperative. Appropriate mood and affect. LABORATORY: [ ] Hematology Labs: Test 09/25/24 05:09 Range/Units White Blood Count 12.0 H 4.8-10.8 K/uL Red Blood Count 2.72 L 4.50-6.20 MIL/uL Hemoglobin 7.8 L 14.0-18.0 g/dL Hematocrit 23.2 L 42-54 % Mean Corpuscular Volume 85.3 79-99 fL Mean Corpuscular Hemoglobin 28.7 27.0-33.0 pg Mean Corpuscular Hemoglobin Concent 33.6 32.0-36.0 g/dL Red Cell Distribution Width 13.2 11.0-15.5 % Platelet Count 249 130-400 K/uL Mean Platelet Volume 11.4 H 7.5-10.5 fL Immature Granulocyte % (Auto) 4.5 H 0-1 % Neutrophils (%) (Auto) 83.4 H 40.0-77.0 % Lymphocytes (%) (Auto) 6.4 L 21.0-51.0 % Monocytes (%) (Auto) 5.5 3.0-13.0 % Eosinophils (%) (Auto) 0.0 0.0-8.0 % Basophils (%) (Auto) 0.2 0.0-5.0 % Neutrophils # (Auto) 10.0 H 1.8-7.7 K/uL Lymphocytes # (Auto) 0.8 L 1.0-4.8 K/uL Monocytes # (Auto) 0.7 0.1-1.0 K/uL Eosinophils # (Auto) 0.00 0.00-0.70 K/uL Basophils # (Auto) 0.02 0.00-0.20 K/uL Absolute Immature Granulocyte (auto 0.54 0-1 K/uL Nucleated Red Blood Cells 1.2 H 0.0-0.19 % Chemistry Labs: Test 09/25/24 11:36 09/25/24 05:09 09/24/24 19:44 09/23/24 22:00 Range/Units Whole Blood Glucose 290 H 70-110 MG/DL Sodium Level 138 136-145 mmol/L Potassium Level 5.5 H 3.5-5.1 mmol/L Chloride Level 99 L 101-111 mmol/L Carbon Dioxide Level 25 21-32 mmol/L Blood Urea Nitrogen 87 *H 7-18 mg/dL Creatinine 7.4 H 0.5-1.3 mg/dL Glomerular Filtration Rate Calc 8 >90 mL/min Random Glucose 304 H 70-105 mg/dL Total Calcium 7.7 L 8.5-10.1 mg/dL Phosphorus Level 8.9 H 2.5-4.9 mg/dL Total Bilirubin 0.4 0.2-1.0 mg/dL Aspartate Amino Transf (AST/SGOT) 164 H 10-37 U/L Alanine Aminotransferase (ALT/SGPT) 248 H 12-78 U/L Alkaline Phosphatase 141 H 50-136 U/L Total Protein 6.3 6.0-8.3 g/dL Albumin 2.4 L 3.5-5.0 g/dL Vitamin B12 Level 981 193-986 pg/mL Bedside Glucose Comment Notified Nurse Whole Blood Ketones Quantitative 1.3 H 0.0-0.6 mmol/L Magnesium Level 1.90 1.80-2.40 mg/dL Test 09/23/24 19:16 Range/Units Ferritin 448 H 30-400 ng/mL Triglycerides Level 326 H 30-200 mg/dL Cholesterol Level 231 H <200 mg/dL LDL Cholesterol 149 H 0-99 mg/dL HDL Cholesterol 33 29-71 mg/dL Coagulation Labs: Test 09/25/24 06:20 09/24/24 06:49 Range/Units Activated Partial Thromboplast Time 51.4 H 26.3-35.5 SEC Prothrombin Time 10.9 9.6-11.6 SEC Prothromb Time International Ratio 0.97 0.85-1.15 DIAGNOSTICS / RADIOLOGY: REASON: hypoxic resp failure ORDERING PHYSICIAN: SHAVON ARAGON PROCEDURE: CXR1VW - CHEST 1VW CHEST 1VW REASON: hypoxic resp failure COMPARISON: 09/23/2024 FINDINGS: There are diffuse bilateral infiltrates which are unchanged. Dialysis catheter remains in place. There is no pneumothorax or other complication. There are no pleural effusions. IMPRESSION: 1. Extensive bilateral infiltrates unchanged. DICTATED BY: ARMANDO FAIR MD DATE: 09/24/24 1051 REASON: FVO ORDERING PHYSICIAN: FELIX BARBOSA NP PROCEDURE: ECHO CMP - ECHO 2-D COMPLETE APPROVED REPORT EXAM: Two-dimensional and M-mode echocardiogram with Doppler and color Doppler. INDICATION ICD: Fluid volume overload 2D Dimensions RVDd 4.4 cm LVEF(%) 41.1 (>50%) LVED Vol(simp.) 176.0 mL IVSd 1.0 (0.7-1.1cm) FS(%) 20 % LVES Vol(simp.) 104.0 mL LVDd 5.4 (3.8-5.6cm) LA (2D) 4.1 (1.6-4.0cm) LVEF(%, simp.) 41 % PWd 1.4 (0.7-1.1cm) Ao Root(2D) 2.9 (2.0-3.7cm) LA ESV INDEX (4CH) 33.40 mL/m2 IVSs 1.2 cm LVOT diam 2.0 (1.8-2.4cm) LA ESV INDEX (2CH) 45.20 mL/m2 LVDs 4.3 (2.5-4.0cm) IVC diam 2.1 cm LA ESV INDEX (BP) 39.50 mL/m2 PWs 2.0 cm Deformation Strain Apical 4 -9.0 % Apical 2 -9.0 % Apical 3 -9.0 % Global Strain -9.0 % M-Mode Dimensions EPSS 1.7 cm LA (MM) 3.4 (1.6-4.0cm) Ao Root(MM) 3.3 (2.0-3.7cm) Aortic Valve AoV VTI 0.3 m Ao Mean GR 9.0 mmHg LVOT VTI 0.20 m STEHPANIE (VMAX) 1.9 cm2 STEPHANIE (VTI) 1.9 cm2 Mitral Valve MV E Vmax 149.3 cm/s DECEL Time 78 ms P 1/2 T 56 ms MVA (PHT) 3.9 cm2 TDI E/E' Medial 19.4 E/E' Lateral 11.8 Medial E' Peak V 7.70 cm/s Lateral E' Peak V 12.70 cm/s Tricuspid Valve RAP (EST) 8 mmHg RVSP 8.0 mmHg Left Ventricle The left ventricle is normal size. The inferior wall is severely hypokinetic. The other ibrahim are hypokinetic. Moderate concentric hypertrophy of the left ventricle is noted. Left ventricle systolic function is moderate to severely depressed, estimated LVEF 35 to 40%. E to E ratio is greater than 14, which is suggestive of increased left ventricle end-diastolic filling pressures. Right Ventricle The right ventricle is dilated. The right ventricular systolic function is normal. Atria The left atrium is mildly dilated, 40 mL/m. The right atrium is dilated. Aortic Valve Aortic valve is probably trileaflet. The leaflets are severely thickened and calcified. Trace aortic regurgitation. Mild aortic stenosis: Peak velocity 2.0 m/s, mean gradient 9 mmHg Mitral Valve Mild mitral annular calcification is noted. The leaflets are mild thickened and calcified. Trace mitral regurgitation. There is no mitral valve stenosis. Tricuspid Valve The tricuspid valve is normal in structure. Trace tricuspid regurgitation. RVSP is grossly normal, but is likely underestimated. Pulmonic Valve Pulmonic valve is not well visualized. Great Vessels The aortic root is normal in size. The IVC is normal in size and collapses <50% with inspiration. Pericardium Trace pericardial effusion. Other Information Quality : Technically difficult due to body habitus Conclusion The left atrium is mildly dilated, 40 mL/m. The right atrium is dilated. The right ventricle is dilated. Moderate concentric hypertrophy of the left ventricle is noted. The inferior wall is severely hypokinetic. The other ibrahim are hypokinetic. Left ventricle systolic function is moderate to severely depressed, estimated LVEF 35 to 40%. E to E ratio is greater than 14, which is suggestive of increased left ventricle end-diastolic filling pressures. Mild aortic stenosis: Peak velocity 2.0 m/s, mean gradient 9 mmHg (likely un derestimated). Trace aortic regurgitation. Trace mitral regurgitation. Trace pericardial effusion. PASP is grossly normal, but is likely under estimated. Trace pericardial effusion. DICTATED BY: RONALD AGUAYO MD DATE: 09/23/24 0731 REASON: acute renal failure ORDERING PHYSICIAN: TERRANCE CHAN PROCEDURE: RENAL - US RENAL SONOGRAM US RENAL SONOGRAM REASON: acute renal failure COMPARISON: None TECHNIQUE: Renal and bladder sonogram was performed. FINDINGS: Right kidney is 11.3 x 4.9 x 4.7 cm, left is 11.5 x 5.5 x 4.4 cm. There is no mass, stone or hydronephrosis. Cortical thickness appears preserved. Echogenicity appears normal. The urinary bladder appears normal as well. IMPRESSION: 1. Normal renal and bladder sonogram. DICTATED BY: ARMANDO FAIR MD DATE: 09/22/24 112 REASON: sob ORDERING PHYSICIAN: TERRANCE CHAN CUT OUT AND MARKING MACHINE OPERATOR PROCEDURE: CHEST WO - CT CHEST W/O CONTRAST CT CHEST WITHOUT CONTRAST INDICATION: Bilateral lung pneumonia TECHNIQUE: Routine axial images using 5 mm slice thickness were acquired from the lung apices to the bases without the administration of IV contrast.Coronal and sagittal reformatted images acquired for interpretation. CT was performed with one or more of the following dose reduction techniques: Automated exposure control, adjustment of the mA and/or kV according to patient size, or use of iterative reconstruction technique. COMPARISON: None FINDINGS: The heart size is normal. Coronary arterial wall calcific plaque noted. No pericardial effusion noted. Mild calcific plaque is present along the aortic arch and thoracic aortic ibrahim without aneurysmal dilation. The trachea and airways are patent. Coalescent "ground-glass" opacities with intermixed consolidation/nodularity noted throughout the bilateral lungs in a centrilobular distribution. No axillary, hilar, or mediastinal lymphadenopathy. No pleural effusion or pneumothorax identified. Limited views of the upper abdomen appear normal. Visible osseous structures are intact. IMPRESSION: Extensive bilateral lung pneumonia. Arteriosclerotic disease as described. DICTATED BY: AGUS MC MD DATE: 09/21/242025 REASON: cough, shortness of breath ORDERING PHYSICIAN: HEBER CABRERA NP PROCEDURE: CXR1VW - CHEST 1VW PORTABLE CHEST RADIOGRAPH INDICATION: cough, shortness of breath COMPARISON: 04/05/2024 FINDINGS: Heart size is normal. The pulmonary vascularity and eder appear normal. Extensive coalescent/consolidative bilateral mid to lower lung opacities, right greater than left. No significant pleural effusion noted. No pneumothorax detected. IMPRESSION: Extensive bilateral mid to lower lung pneumonia, right greater than left. DICTATED BY: AGUS MC MD DATE: 09/21/241899 ASSESSMENT: Hyperosmolar Hyperglycemic Syndrome NSTEMI Acute on chronic renal failure Influenza bronchopneumonia with sepsis Acute Hypoxemic Respiratory Failure Metabolic acidosis Lactic acidosis CKD stage 4 Uncontrolled Diabetes Protein Calorie malnutrition PLAN: Labs, diagnostic, radiologic exams reviewed and interpreted by myself and supervising physician. We have reviewed external records in detail Pending coronary Angiography CT later today. Order PermCath by IR tomorrow Dialysis planned for tomorrow. Case management to coordinate outpatient dialysis chair SUDHAKAR Chung. Consult CV surgeon for AV access creation. Preserve nondominant arm Please renally adjust Tamiflu Require close monitoring of renal function and electrolytes Order CBC, CMP, iron panel, ferritin and electrolytes in am IV iron/Epogen as needed Continue with antibiotics Renal diabetic diet BiPAP as necessary, for respiratory distress Monitor blood pressure adjust medication doses as needed Avoid hypotensive episodes May use Dilaudid 0.5 mg IV every 6 hours as needed for severe pain Monitor blood sugars Strict intake, output, and daily weight should be monitored Please renally adjust medications Avoid nephrotoxic and nonsteroidal drugs Avoid contrast if possible Will continue to monitor renal function, anemia, electrolytes Treatment plan discussed with patient Questions were answered We have discussed with the other team physicians in detail about the care plan ATTESTATION BY PHYSICIAN I have seen and examined the patient. I reviewed the documentation, medical decision making, and treatment plan as noted by the mid-level provider above. I agree with the findings and plan of care. BRAYDON HOLLINGSWORTH MD, ELIZABETH CUT OUT AND MARKING MACHINE OPERATOR Sep 25, 2024 15:10
--- NOTE | 2024-09-25 15:20 | NUR ---
dr oliveira notified: of order to convert marycarmen to permacath, pt wbc 12, pt receives steroids and antibiotics. dr oliveira does not recommend changing out catheter at this time. moiz pt primary nurse notified
[2024-09-25] MEDS: fluCONazole 200 MG/NS 100 ML IV SCH (16:09)
[2024-09-25] MEDS: metoPROLOL tartRATE 50 MG TAB PO ONE (16:09)
--- NOTE | 2024-09-25 16:21 | NUR ---
permacath Dr. Armenta aware permacath not able to place today due to elevated WBC, per MD ok to try to be place tomorrow, [place] DASH aware.
[2024-09-25] MEDS: EPOETIN ALFA-EPBX (NON-ESRD) 10,000 UNIT/ML VIAL SQ ONE (17:52)
--- NOTE | 2024-09-25 20:05 | PN ---
[facility] PROGRESS NOTE Date Patient Seen: Sep 25, 2024 Time of Visit: 1331 Supervising Physician: Dr. Emery Primary Care Physician: Gama Acosta Outpatient Specialists: [ ] Inpatient Consults: Cardiology, nephrology and critical care team PROBLEM LIST: Acute Hypoxemic Respiratory Failure, POA Nstemi,likely Type II POA on Heparin gtt Bilateral Pneumonia, POA Influenza A Infection, POA Sepsis Due To Bilateral Pneumonia And Influenza A Infection, POA Acute Hypoxemic Respiratory Failure, POA Esrd, POA Dka, POA Acute Metabolic Acidosis In The Context Of Dka and SAURABH , Poa Hyperkalemia In The Context Of Chronic Kidney Injury, Poa Morbid Obesity, Poa INTERVAL HISTORY: 09/22/2024: At the time my evaluation, the patient was in the emergency department awaiting bed assignment. The staff nurse reports no acute events overnight. The patient was on a Oxymizer with optimal SpO2. He was normotensive without the need for pressor therapy. There was no complaint of chest pain. There was no abdominal pain, nausea vomiting or diarrhea. The patient continued on a insulin drip per the DKA protocol. He was started on antibiotic and antiviral therapy for management of his condition. Review of labs today showed no major concern on CBC. Chemistry panel did show a sodium of 135, chloride of 100 and a CO2 of 20 with a anion gap of 15. Blood glucose remains elevated in the 300s. No new complaint. 09/23- saw patient and ED 13 awake alert and oriented x3. 2D echo at bedside being performed. Patient has been afebrile heart rate of 110, blood pressure 116/63 with respiratory rate of 20 saturating 97% with 7 L via nasal cannula oximizer. Urine output 1.4 L in the last 24 hours. On laboratory WBCs are 11.4 H&H trending down 7.6/23.1 with a platelet count that is 178 K. on chemistry sodium 136 potassium of 3.7 chloride 100 carbon dioxide of 19 BUN 106. Creatinine of 8.6 and GFR of 7. Per Dr Armenta pt scheduled for a Mitesh hemodialysis catheter per IR today. Pt continues with Tamiflu, Doxy, Cefepime and MRSA coverage will be added w/ vanco due to suspected MRSA superimposed pneumonia on Influenza pneumonia. On CT chest, abdomen and pelvis shows Acute appearing infiltrates in both lung bases consistent with pneumoniae. No acute finding in the abdomen or pelvis. Del Cid catheter in good position in the urinary bladder. We will continue to follow Neprhology recommendations. 09/24 patient was seen and examined at bedside with primary nurse present. Patient to receive1 unit PRBCs hemoglobin this a.m. 6.8. Continue to monitor closely. Patient to continue on IV antibiotics. Patient's troponin levels trending down. We will continue to follow recommendations of Cardiology. Jose stacy remains hypoxic requiring supplemental oxygen via nasal cannula at L. Patient states does not use home oxygen. Patient is to continue on heparin drip. Patient to continue on IV steroids. Patient's echocardiogram revealed EF of 35-40%. Patient's blood cultures have been negative x2 days. Patient remains high risk for decompensation. 09/25 patient was seen and examined at bedside with mother present. At time of visit patient is currently on room air has been weaned off oxygen. Yesterday patient was on 5 L. As per patient is tolerating room air well. Patient denies any chest pain or shortness of breadth, however does report shortness of breath upon minimal exertion. Patient remains on heparin drip. Patient is still currently pending coronary CT to be completed, further recommendations by Cardiology to follow once examined has been completed. Patient to continue on hemodialysis per Nephrology's recommendations. REVIEW OF SYSTEMS: 12 point ROS reviewed with patient. Pertinent positives mentioned above. Otherwise negative. PHYSICAL EXAM: GENERAL: alert, weak, awake oriented x 3 HEENT: EOMI, Sclera non icteric, moist mucosa NECK: Supple, no JVD, trachea midline LUNGS: Diminished breath sounds bilaterally. No wheezes HEART: Regular rate and rhythm. Normal S1 and S2, without murmurs ABD: Abdomen soft, nontender. Bowel sounds present EXT: No clubbing cyanosis or edema NEURO: Alert and oriented to person, follows commands Vital Signs (last 8hr) Date Time Temp Pulse Resp B/P (MAP) Pulse Ox O2 Delivery O2 Flow Rate FiO2 09/25/24 16:00 98.6 82 18 93/53 97 Nasal Cannula 5.0 LABS: Hematology Labs: Test 09/25/24 05:09 Range/Units White Blood Count 12.0 H 4.8-10.8 K/uL Red Blood Count 2.72 L 4.50-6.20 MIL/uL Hemoglobin 7.8 L 14.0-18.0 g/dL Hematocrit 23.2 L 42-54 % Mean Corpuscular Volume 85.3 79-99 fL Mean Corpuscular Hemoglobin 28.7 27.0-33.0 pg Mean Corpuscular Hemoglobin Concent 33.6 32.0-36.0 g/dL Red Cell Distribution Width 13.2 11.0-15.5 % Platelet Count 249 130-400 K/uL Mean Platelet Volume 11.4 H 7.5-10.5 fL Immature Granulocyte % (Auto) 4.5 H 0-1 % Neutrophils (%) (Auto) 83.4 H 40.0-77.0 % Lymphocytes (%) (Auto) 6.4 L 21.0-51.0 % Monocytes (%) (Auto) 5.5 3.0-13.0 % Eosinophils (%) (Auto) 0.0 0.0-8.0 % Basophils (%) (Auto) 0.2 0.0-5.0 % Neutrophils # (Auto) 10.0 H 1.8-7.7 K/uL Lymphocytes # (Auto) 0.8 L 1.0-4.8 K/uL Monocytes # (Auto) 0.7 0.1-1.0 K/uL Eosinophils # (Auto) 0.00 0.00-0.70 K/uL Basophils # (Auto) 0.02 0.00-0.20 K/uL Absolute Immature Granulocyte (auto 0.54 0-1 K/uL Nucleated Red Blood Cells 1.2 H 0.0-0.19 % Chemistry Labs: Test 09/25/24 19:39 09/25/24 05:09 09/24/24 19:44 09/23/24 22:00 Range/Units Whole Blood Glucose 220 H 70-110 MG/DL Sodium Level 138 136-145 mmol/L Potassium Level 5.5 H 3.5-5.1 mmol/L Chloride Level 99 L 101-111 mmol/L Carbon Dioxide Level 25 21-32 mmol/L Blood Urea Nitrogen 87 *H 7-18 mg/dL Creatinine 7.4 H 0.5-1.3 mg/dL Glomerular Filtration Rate Calc 8 >90 mL/min Random Glucose 304 H 70-105 mg/dL Total Calcium 7.7 L 8.5-10.1 mg/dL Phosphorus Level 8.9 H 2.5-4.9 mg/dL Total Bilirubin 0.4 0.2-1.0 mg/dL Aspartate Amino Transf (AST/SGOT) 164 H 10-37 U/L Alanine Aminotransferase (ALT/SGPT) 248 H 12-78 U/L Alkaline Phosphatase 141 H 50-136 U/L Total Protein 6.3 6.0-8.3 g/dL Albumin 2.4 L 3.5-5.0 g/dL Vitamin B12 Level 981 193-986 pg/mL Vitamin D 25-Hydroxy 27.5 30.0-100.0 ng/mL Bedside Glucose Comment Notified Nurse Whole Blood Ketones Quantitative 1.3 H 0.0-0.6 mmol/L Magnesium Level 1.90 1.80-2.40 mg/dL Coagulation Labs: Test 09/25/24 06:20 09/24/24 06:49 Range/Units Activated Partial Thromboplast Time 51.4 H 26.3-35.5 SEC Prothrombin Time 10.9 9.6-11.6 SEC Prothromb Time International Ratio 0.97 0.85-1.15 DIAGNOSTICS / RADIOLOGY RESULTS: na PLAN NEURO: Minimize central acting medications as possible. Maintain fall precautions, adequate lighting during the day PULMONARY: Supplemental 02 as needed. Maintain aspiration precautions at all times CARDIOVASCULAR: Follow hemodynamics. Vital signs per facility protocol GI & NUTRITION: Continue with nutritional support. Continue stool softeners and laxatives as needed. KIDNEYS & ELECTROLYTES: Strict monitoring of intake, output and overall fluid balance. Avoid nephrotoxic medications to the extent possible. Medications to be dosed according to renal function. Monitor electrolytes and replace as needed ENDOCRINE: Maintain blood glucose between 100-180 at all times. Hypoglycemia protocol in place INFECTIOUS DISEASE: Trend temperature, WBC and procalcitonin level Follow cultures, deescalate antibiotics as soon as possible. Panculture if new onset fever ONCOLOGY/HEMATOLOGY/COAGULATION: Monitor for s/s of bleeding Monitor hemoglobin, coagulation studies as needed SKIN: Pressure ulcer prevention per facility protocol Specialty mattress ORTHO/REHAB: Continue PT/OT Prophylaxis: Continue GI and DVT prophylaxis Code Status: Full Resuscitation Disposition: TBD Other: Case discussed with supervising physician plan of care agreed upon RACHEL RAMSEY Sep 25, 2024 20:05
--- NOTE | 2024-09-25 22:30 | NUR ---
b/p patient sitting bedside chair ,nauseated, diaphoretic, coughing up small amount of yellow phlegm , patient feels like passing out, back to bed, remp 97.9 pulse 69 sinus rhythm , resp 20 sat 94 % on 5 l oximizer, b/p 87/59, called hospitalist reproduction technician rukhsana rothman water treatment specialist with orders,start iv left wrist 20 gauge attempt x1 and successful, ns bolus 250 cc started as ordered,
--- NOTE | 2024-09-25 22:55 | NUR ---
med effect , b/p 95/71, resp 20 pulse 72, sat 95 o 5 l n/c , patient states feeling better, patients mother at bedside, continue on heparin drip at 15 u/kg\hour, laborer pipeline here to draw labs as ordered
[2024-09-25] MEDS ORDERED: 0.9% NACL 250ML 250 ML IV SCH (23:00)
[2024-09-25 23:04] LABS: HEMATOCRIT 24.9 % (42-54); MEAN CORPUSCULAR HEMOGLOBIN 29.2 pg (27.0-33.0); MEAN CORPUSCULAR HGB CONC 33.3 g/dL (32.0-36.0); MEAN CORPUSCULAR VOLUME 87.7 fL (79-99); NUCLEATED RED BLOOD CELLS 2.2 % (0.0-0.19); RED BLOOD CELL COUNT(AUTO) 2.84 MIL/uL (4.50-6.20); RED CELL DISTRIBUTION WIDTH 13.2 % (11.0-15.5); WHITE BLOOD COUNT (AUTO) 17.6 K/uL (4.8-10.8)
[2024-09-25] MEDS: ondanSETRON 4MG INJ ONE (23:14)
[2024-09-25] MEDS: ALBUMIN HUMAN 25% 100 ML IV STA (23:17)
--- NOTE | 2024-09-25 23:18 | NUR ---
hospitalist b/p 87/51 ,p 70 r 20 sat 97 % at 5 l n/c , hospitalist sandrita rothman fuel house attendant here to see and examen patient with orders, give albumin 25 % 100 cc now if b/p still under 90 after albumin transfer to icu for levophed drip
--- NOTE | 2024-09-25 23:30 | NUR ---
med effect b/p 79/51 pulse 75 resp 20 temp 97.1 sat 95 on 5 ln/c , per hospitalist transfer to icu for levophed per protocal
--- NOTE | 2024-09-25 23:40 | NUR ---
nursing obs b/p 85/71, sat 95 % on oxygen at 5 l n/c, pulse 71, called housesuperviosr ran gonzalez rn notified of needing icu bed
--- NOTE | 2024-09-25 23:46 | NUR ---
update b/p 84/54 sat 94 % on 5 n/c via oxymizer, awaiting for bed to transfer to icu for levophed per protocal as ordered
[2024-09-26] VITALS (80 sets, daily range): BP systolic 84–145; BP diastolic 48–77; PULSE 65–87; RESP 13–36; TEMP 97.1–98.8; O2SAT 93–96
--- NOTE | 2024-09-26 00:12 | NUR ---
report report given to krisitn in icu, awaiting for room to be cleaned patient needing droplet precautions for flu a
--- NOTE | 2024-09-26 00:50 | NUR ---
transfer b/p 85/56, pulse 74, resp 20 sat 94 % on oxymizer at 5 ln/c, transfer to icu
[2024-09-26] MEDS ORDERED: morPHINE 2 MG SYG IVP PRN (01:30)
[2024-09-26] MEDS: ondanSETRON 4MG INJ ONE (01:39)
[2024-09-26] MEDS: NOREPINEPHRIN 4MG/NS 250ML 250 ML IV PRN (01:40)
[2024-09-26] MEDS: NOREPINEPHRIN 4MG/NS 250ML 250 ML IV ONE (01:41)
[2024-09-26] MEDS: ondanSETRON 4MG INJ IVP PRN (03:06)
[2024-09-26 05:57] LABS: BASOPHILS # (AUTO) 0.08 K/uL (0.00-0.20); BASOPHILS % (AUTO) 0.3 % (0.0-5.0); HEMATOCRIT 25.4 % (42-54); IMMATURE GRANULOCYTE ABSOLUTE 2.73 K/uL (0-1); LYMPHOCYTES # (AUTO) 0.8 K/uL (1.0-4.8); LYMPHOCYTES % (AUTO) 3.4 % (21.0-51.0); MEAN CORPUSCULAR HEMOGLOBIN 28.9 pg (27.0-33.0); MEAN CORPUSCULAR HGB CONC 33.9 g/dL (32.0-36.0); MEAN CORPUSCULAR VOLUME 85.2 fL (79-99); MONOCYTES # (AUTO) 1.3 K/uL (0.1-1.0); MONOCYTES % (AUTO) 5.5 % (3.0-13.0); NEUTROPHILS # (AUTO) 19.2 K/uL (1.8-7.7); NEUTROPHILS % (AUTO) 79.5 % (40.0-77.0); NUCLEATED RED BLOOD CELLS 2.9 % (0.0-0.19); PLATELET COUNT (AUTO) 291 K/uL (130-400); RED BLOOD CELL COUNT(AUTO) 2.98 MIL/uL (4.50-6.20); RED CELL DISTRIBUTION WIDTH 13.1 % (11.0-15.5); WHITE BLOOD COUNT (AUTO) 24.2 K/uL (4.8-10.8)
[2024-09-26 06:08] LABS: INR 1.35 (0.85-1.15); PROTHROMBIN TIME 14.7 SEC (9.6-11.6)
[2024-09-26 06:09] LABS: PARTIAL THROMBOPLASTIN TIME 34.5 SEC (26.3-35.5)
[2024-09-26 06:30] LABS: ALBUMIN 2.6 g/dL (3.5-5.0); BILIRUBIN,TOTAL 1.9 mg/dL (0.2-1.0); PHOSPHORUS 12.3 mg/dL (2.5-4.9); TOTAL PROTEIN, SERUM 6.2 g/dL (6.0-8.3)
[2024-09-26 06:33] LABS: CREATININE 9.6 mg/dL (0.5-1.3)
[2024-09-26 06:34] LABS: POTASSIUM 6.2 mmol/L (3.5-5.1)
--- NOTE | 2024-09-26 08:27 | PN ---
[facility] PROGRESS NOTE Date Patient Seen: Sep 26, 2024 Time of Visit: 08:23 Problem List: NSTEMI Volume overload 2/2 progression of ESRD Influenza A, Tamiflu started on 09/22/2024 Bilateral pneumonia HHS and DKA, on Insulin gtt HTN HLD DM type II 2D echo on 04/06/2024 demonstrated an EF of 45-50% Lexiscan stress test on 04/07/2024 demonstrated a fixed basal mid inferolateral and basal inferior defect with no reversible ischemia Interval History: [Overnight [place] [address], hemoglobin 8.6 he is endorsing ongoing fatigue with nausea he is scheduled to undergo hemodialysis today it after we will plan for coronary CT. No telemetry events overnight ] Physical Examination: GENERAL: No acute distress. On 4 L of O2 via NC. HEAD: Normal with no signs of head trauma. EYES: PERRLA, EOMI, conjunctiva and sclera normal. ENT: Hearing grossly intact, normal oropharynx. NECK: Supple without JVD. There is no tenderness, lymphadenopathy, or masses. No thyromegaly. Normal carotid upstrokes without bruits. LUNGS: Crackles to bases bilaterally. HEART: Tachycardic rate and normal rhythm. Normal S1 and S2 without murmurs, gallop or rub. VASC: BLE 2+ pitting edema ABD: Bowel sounds normal, soft, nontender, no masses, no organomegaly. No audible bruits. : Not examined LYMPH: No lymphadenopathy noted. EXT: No clubbing, cyanosis or edema. SKIN: No rashes or lesions noted. NEURO: Awake, alert, and oriented x3. No focal sensory or strength deficits noted. Laboratory: [ ] Hematology Labs: Test 09/26/24 05:46 Range/Units White Blood Count 24.2 #H 4.8-10.8 K/uL Red Blood Count 2.98 L 4.50-6.20 MIL/uL Hemoglobin 8.6 L 14.0-18.0 g/dL Hematocrit 25.4 L 42-54 % Mean Corpuscular Volume 85.2 79-99 fL Mean Corpuscular Hemoglobin 28.9 27.0-33.0 pg Mean Corpuscular Hemoglobin Concent 33.9 32.0-36.0 g/dL Red Cell Distribution Width 13.1 11.0-15.5 % Platelet Count 291 130-400 K/uL Mean Platelet Volume 11.8 H 7.5-10.5 fL Immature Granulocyte % (Auto) 11.3 H 0-1 % Neutrophils (%) (Auto) 79.5 H 40.0-77.0 % Lymphocytes (%) (Auto) 3.4 L 21.0-51.0 % Monocytes (%) (Auto) 5.5 3.0-13.0 % Eosinophils (%) (Auto) 0.0 0.0-8.0 % Basophils (%) (Auto) 0.3 0.0-5.0 % Neutrophils # (Auto) 19.2 H 1.8-7.7 K/uL Lymphocytes # (Auto) 0.8 L 1.0-4.8 K/uL Monocytes # (Auto) 1.3 H 0.1-1.0 K/uL Eosinophils # (Auto) 0.00 0.00-0.70 K/uL Basophils # (Auto) 0.08 0.00-0.20 K/uL Absolute Immature Granulocyte (auto 2.73 H 0-1 K/uL Nucleated Red Blood Cells 2.9 H 0.0-0.19 % Chemistry Labs: Test 09/26/24 05:48 09/26/24 05:46 09/25/24 05:09 09/24/24 19:44 Range/Units Whole Blood Glucose 254 H 70-110 MG/DL Sodium Level 130 L 136-145 mmol/L Potassium Level 6.2 *H 3.5-5.1 mmol/L Chloride Level 90 *L 101-111 mmol/L Carbon Dioxide Level 17 L 21-32 mmol/L Blood Urea Nitrogen 119 *H 7-18 mg/dL Creatinine 9.6 *H 0.5-1.3 mg/dL Glomerular Filtration Rate Calc 6 >90 mL/min Random Glucose 253 H 70-105 mg/dL Total Calcium 6.7 L 8.5-10.1 mg/dL Phosphorus Level 12.3 H 2.5-4.9 mg/dL Total Bilirubin 1.9 H 0.2-1.0 mg/dL Aspartate Amino Transf (AST/SGOT) 6752 *H 10-37 U/L Alanine Aminotransferase (ALT/SGPT) 4302 *H 12-78 U/L Alkaline Phosphatase 233 H 50-136 U/L Total Protein 6.2 6.0-8.3 g/dL Albumin 2.6 L 3.5-5.0 g/dL Vitamin B12 Level 981 193-986 pg/mL Vitamin D 25-Hydroxy 27.5 30.0-100.0 ng/mL Bedside Glucose Comment Notified Nurse Coagulation Labs: Test 09/26/24 05:46 Range/Units Prothrombin Time 14.7 H 9.6-11.6 SEC Prothromb Time International Ratio 1.35 H 0.85-1.15 Activated Partial Thromboplast Time 34.5 # 26.3-35.5 SEC Diagnostics / Radiology: [Copy/Paste Echos/Imaging Report here] Impression and Plan: NSTEMI Volume overload 2/2 progression of ESRD Influenza A, Tamiflu started on 09/22/2024 Bilateral pneumonia HHS and DKA, on Insulin gtt HTN HLD DM type II 2D echo on 04/06/2024 demonstrated an EF of 45-50% Lexiscan stress test on 04/07/2024 demonstrated a fixed basal mid inferolateral and basal inferior defect with no reversible ischemia NSTEMI Troponin of 5531, 5716, 8278, and 6392 EKG demonstrated sinus tachycardia with a heart rate of 121 beats per minute, LAE, and diffuse ischemia On heparin drip per ACS protocol, started -Continue Aspirin 81 mg daily, Metoprolol tartrate 12.5mg bid, and start Atorvastatin 20 mg nightly -Continue Plavix 75mg daily -TTE showed severely hypokinetic inferior wall, EF 35-40 % . -Current Hb [place] 8.6, [place] [address] , -patient will undergo hemodialysis today and after that we will plan for the coronary CT -Pt at this time needs further HD and mgt of his sepsis Thank you for this consult cardiology will continue to follow along,. formal recommendations pending CCTA results ATTESTATION BY PHYSICIAN I have seen and examined the patient, reviewed the above documentation, participated in medical decision making, made necessary modifications, and agree with the treatment plan as documented by my mid-level provider above. MD JIMBO Rick,ARIELA Casper MD Sep 26, 2024 08:27
--- NOTE | 2024-09-26 08:55 | PN ---
[facility] PROGRESS NOTE Date of Service: Sep 26, 2024 Time of Service: 08:55 SUBJECTIVE: This is a 49-year-old male with past medical history of CKD not on hemodialysis, diabetes, hypertension, hyperlipidemia and obesity who presents to the ED for complaints of cough and chest congestion which started last Sunday and getting worse on Sunday. Patient reports coughing up pinkish colored thick phlegm, loss of appetite and on Sunday started not eating unable to sleep, vomiting and having chest pain triggered by persistent coughing he said.Patient reports having soreness due to hard cough he said.Patient reports having sweeling on both lower extremities and started having shortness of breath and today he started having non bloody diarrhea. Neela was at bedside during my evaluation. Upon arrival to ER a STEMI alert was activated per ER MD and spoke to Warehouse Specialist aviation safety equipment technician and as per report patient is possibly going to cathlab tomorrow and patient is going to be started on Heparin and Insulin drip. Seen and examined patient in the Er awake,alert and coherent,appears weak looking.Patient denies fever,palpitation ,dizziness ,sore throat and headache. Latest vital signs temperature 98.1, heart rate 108, respiration 30 blood pressure 130/68 saturation 91% on 4 L nasal cannula. Labs: WBC 11.2, hemoglobin 9, hematocrit 27, platelet count 238, neutrophils 88. PH 7.32, CO2 26, PO2 49.6, bicarb 13, PO2 80 base excess -11.3. Sodium 129, potassium 5.9, chloride 93, CO2 19, BUN 88, creatinine 8.2, GFR seven glucose 876 , lactic acid 3.0-3.2, troponin 5531 albumin 2.1. Influenza A positive influenza B negative SARs COVID negative. Strep A negative. Chest x-ray result revealed extensive bilateral mid to lower lung pneumonia right greater than left. First ECG result revealed sinus tachycardia heart rate 121 probable left atrial enlargement repolarization abnormal suggest ischemia diffuse leads ST-elevation consider anterior injury. Second EKG result revealed sinus tachycardia repolarization abnormality suggest ischemia diffuse leads borderline ST elevation anterior leads heart rate 108. While in the ER patient received Tamiflu 75 mg p.o., 1 L NS bolus, Lopressor 5 mg IV, insulin 10 units IV, Zosyn IV, Zofran 4 mg IV and Phenergan codeine 10 mL p.o. we will admit patient in ICU for further medical management. 09/22/24 patient was seen and examined in ED bed 13. Today his vitals are 145/84, respiratory rate 22, SpO2 99% on 7 L nasal cannula, pulse rate 110. He complaints of cough with sputum, but says it is getting better than yesterday, denies shortness of breath or chest pain or dizziness. Nephrology was consulted and recommended to start Lasix 80 mg IV b.i.d and to start renal diabetic diet. He is currently on zosyn , doxycycline and Tamiflu. He is on IV insulin drip and glucose has come down from 8 0s to 400s. Pending Cardiology recommendations. He requires sleep study once he is discharged. 09/23/24 Patient was seen and examined in ED bed 13. Today his vitals are BP 132/78, NJ 105, SpO2 96% on 4 L nasal cannula. Patient says his cough is getting better, no chest pain but complains of mild left lower abdominal pain and bloating, no bowel movement since yesterday morning. His renal function continues to decline , his creatinine is up from 8.1 to 8.4. Nephrology recommended PermCath to be placed by IR for hemodialysis. Cardiology recommended to continue aspirin 81 mg daily and metoprolol tartrate 12.5 mg and possible angiogram to assess coronary anatomy as his EKG showed sinus tachycardia, LAE and diffuse ischemia. Pending 2D echo results. 09/24/24 Patient was seen and examined in room 430. His vitals are blood pressure 129/73, pulse rate 109, respiratory rate 20, T-max 98.1, SpO2 94% on5 L nasal cannula. Patient complains of mild weakness when he moves from chair to the bed, otherwise has no complaints. Says he soiled the bed earlier this morning he was trying to get up to go to the restroom. Mitesh catheter was placed yesterday and 1L fluid was removed. Insulin drip was stopped last night currently his glucoses over 500. Remarkable labs are sodium 132, BUN 90, creatinine 7.7, calcium 7.2, phosphorus 7.5, hemoglobin dropped from 8.3-6.8 and hematocrit from 24.4-20.4, will transfuse one unit RBC. His respiratory cultures came back positive for Dunia albicans, we will start him on diflucan. MRSA DNA nasal swab was negative. 2D echo showed mildly dilated left atrium, dilated right atrium and ventricle, moderate concentric hypertrophy of left ventricle, severely hypokinetic inferior wall and LVEF 35-40% with mild aortic stenosis, trace aortic regurgitation, trace mitral regurgitation, trace pericardial effusi on. Cardiology recommended CT cardio angio with contrast once the patient is euvolemic. His hepatitis-C and HIV panel came back nonreactive, positive hepatitis-B surface antibody. CT abdomen and pelvis acute appearing infiltrates in both lung bases consistent with pneumonia but no acute finding in the abdomen or pelvis. 09/25/24 Patient was seen and examined at bedside. He is hemodynamically stable, has no complaints. He denies chest pain or shortness of breath or dizziness or palpitations or abdominal pain, he complains of shortness of breath with minimal exertion, his hemoglobin improved to 8.3 He is still pending a coronary a ngiography. Was started on metoprolol by cardiology. Will follow nephrology recommendations on dialysis. Yesterday 1.2 L was ultrafiltered. Continue diflucan. Plan is to consult cardiovascular surgeon for AV access for outpatient hemodialysis. 09/26/24 Patient was lying comfortably in bed with at his bedside, currently undergoing hemodialysis. He was shifted to ICU last night because his systolic blood pressure dropped to 80s and 90s and was started on norepinephrine drip. He has acute liver injury, his labs are AST 6752, ALT 4300, ALP 233, probable causes include ischemic injury [place] [address], hemoglobin improved to 8.6. Plan is to do CT coronary angiography to assess coronary anatomy if stabilized. Currently, his blood pressure is holding up in 120s and heart rate in 70s. REVIEW OF SYSTEMS CONSTITUTIONAL: Denies fevers, chills, or night sweats. No unintentional weight loss reported. NEUROLOGICAL: Denies headache, amaurosis fugax, motor weakness, sensory deficit, vertigo/spinning sensation, gait abnormalities, or tremors. ENT: No hearing loss, otalgia, otorrhea, rhinitis, rhinorrhea, hoarseness, or sore throat. CARDIOVASCULAR: Complaints of orthopnea shortness of breaths and chest pain Denies paroxysmal nocturnal dyspnea, palpitations, life-threatening arrhythmias, claudication. PULMONARY: Complaints of productive cough , pleuritic chest pain and shortness of breaths SLEEP: Complains of unable to sleep Denies morning headaches, daytime somnolence or napping. Denies waking from sleep. Denies knowledge of snoring. GASTROINTESTINAL: Complaints of loss of appetite, vomiting and diarrhea Denies any type of dysphagia to either liquids or solids. Denies nausea, vomiting, pyrosis, early satiety, abdominal pain, diarrhea, constipation, or changes in stool consistency or caliber. Denies coffee-ground emesis, hematemesis, hematochezia, or melanotic stools. GENITOURINARY: Denies frequency, urgency, nocturia, hematuria or incontinence (Storage/Irritative symptoms.) Low urinary stream, straining to void, urinary intermittency or hesitancy, splitting of the voiding stream, terminal dribbling. ENDOCRINOLOGIC: Denies polyuria, polydipsia, polyphagia or heat/cold intolerances. Patient reports not taking medications for diabetes because he was not eating. HEMATOLOGIC: Denies thrombophilia/previous clots, or coagulopathy/bleeding disorders. ONCOLOGIC: Denies personal history of malignancy. DERMATOLOGIC: Denies rashes or pruritus. PSYCHIATRIC: Denies any suicidal or homicidal ideation. Denies hallucinations. PHYSICAL EXAM GENERAL APPEARANCE: The patient is awake, alert, and oriented appears generally weak NEUROLOGICAL: Cranial nerves II-XII grossly intact. Motor is 5/5 in bilateral upper and lower extremities proximal to distal. No sensory deficits. HEENT: Face is symmetric. Pupils are equal and reactive. Extraocular movements are intact. NECK: Supple. No JVD. No thyromegaly. No submental, submandibular, pre- /postauricular, occipital or supraclavicular lymphadenopathy. CHEST: Normal chest expansion. No Telemetry. LUNGS: . Diminished lung sounds to bilateral lung james CARDIOVASCULAR: Tachycardic Regular. S1 and S2 normal. No appreciable rubs, murmurs or gallops. ABDOMEN: Round and firmed There is no rebound, voluntary guarding, or rigidity. : Deferred. No Del Cid. EXTREMITIES: Bilateral lower extremity edema No clubbing. Good capillary refill. SKIN: No skin breakdown. Vital Signs (last 8hr) Date Time Temp Pulse Resp B/P (MAP) Pulse Ox O2 Delivery O2 Flow Rate FiO2 09/26/24 07:29 74 20 N/Cannula Oximizer Hi LPM 5.0 09/26/24 06:43 72 20 09/26/24 06:30 72 19 107/61 (76) 89 09/26/24 06:15 72 17 102/72 (82) 92 09/26/24 06:00 76 20 106/66 (79) 95 44 09/26/24 05:45 72 16 102/56 (71) 99 09/26/24 05:30 73 17 101/61 (74) 95 09/26/24 05:15 74 36 103/57 (72) 93 09/26/24 05:00 96 N/C Oxymizer Hi LPM* 6 44 09/26/24 05:00 98.6 73 17 92/69 (77) 96 44 09/26/24 04:45 73 16 100/57 (71) 95 09/26/24 04:30 72 16 95/62 (73) 97 09/26/24 04:15 71 15 93/62 (72) 96 09/26/24 04:00 71 17 95/61 (72) 96 44 09/26/24 03:45 72 20 94/63 (73) 98 09/26/24 03:30 71 18 107/69 (82) 94 09/26/24 02:45 70 19 91/67 (75) 90 09/26/24 02:30 73 16 94/68 (77) 91 09/26/24 02:15 72 14 96/69 (78) 92 44 09/26/24 02:00 70 14 86/65 (72) 93 44 09/26/24 01:45 71 17 87/64 (72) 92 40 09/26/24 01:40 84/57 09/26/24 01:30 70 16 89/60 (70) 91 40 09/26/24 01:15 65 20 84/57 (66) 90 40 09/26/24 01:00 97.7 67 22 102/55 (71) 89 40 09/26/24 01:00 N/C Oxymizer Hi LPM* 6 44 LABS: Laboratory: Test 09/26/24 05:48 09/26/24 05:46 09/25/24 05:09 09/24/24 19:44 Range/Units Whole Blood Glucose 254 H 70-110 MG/DL White Blood Count 24.2 #H 4.8-10.8 K/uL Red Blood Count 2.98 L 4.50-6.20 MIL/uL Hemoglobin 8.6 L 14.0-18.0 g/dL Hematocrit 25.4 L 42-54 % Mean Corpuscular Volume 85.2 79-99 fL Mean Corpuscular Hemoglobin 28.9 27.0-33.0 pg Mean Corpuscular Hemoglobin Concent 33.9 32.0-36.0 g/dL Red Cell Distribution Width 13.1 11.0-15.5 % Platelet Count 291 130-400 K/uL Mean Platelet Volume 11.8 H 7.5-10.5 fL Immature Granulocyte % (Auto) 11.3 H 0-1 % Neutrophils (%) (Auto) 79.5 H 40.0-77.0 % Lymphocytes (%) (Auto) 3.4 L 21.0-51.0 % Monocytes (%) (Auto) 5.5 3.0-13.0 % Eosinophils (%) (Auto) 0.0 0.0-8.0 % Basophils (%) (Auto) 0.3 0.0-5.0 % Neutrophils # (Auto) 19.2 H 1.8-7.7 K/uL Lymphocytes # (Auto) 0.8 L 1.0-4.8 K/uL Monocytes # (Auto) 1.3 H 0.1-1.0 K/uL Eosinophils # (Auto) 0.00 0.00-0.70 K/uL Basophils # (Auto) 0.08 0.00-0.20 K/uL Absolute Immature Granulocyte (auto 2.73 H 0-1 K/uL Nucleated Red Blood Cells 2.9 H 0.0-0.19 % Prothrombin Time 14.7 H 9.6-11.6 SEC Prothromb Time International Ratio 1.35 H 0.85-1.15 Activated Partial Thromboplast Time 34.5 # 26.3-35.5 SEC Sodium Level 130 L 136-145 mmol/L Potassium Level 6.2 *H 3.5-5.1 mmol/L Chloride Level 90 *L 101-111 mmol/L Carbon Dioxide Level 17 L 21-32 mmol/L Blood Urea Nitrogen 119 *H 7-18 mg/dL Creatinine 9.6 *H 0.5-1.3 mg/dL Glomerular Filtration Rate Calc 6 >90 mL/min Random Glucose 253 H 70-105 mg/dL Total Calcium 6.7 L 8.5-10.1 mg/dL Phosphorus Level 12.3 H 2.5-4.9 mg/dL Total Bilirubin 1.9 H 0.2-1.0 mg/dL Aspartate Amino Transf (AST/SGOT) 6752 *H 10-37 U/L Alanine Aminotransferase (ALT/SGPT) 4302 *H 12-78 U/L Alkaline Phosphatase 233 H 50-136 U/L Total Protein 6.2 6.0-8.3 g/dL Albumin 2.6 L 3.5-5.0 g/dL Vitamin B12 Level 981 193-986 pg/mL Vitamin D 25-Hydroxy 27.5 30.0-100.0 ng/mL Vancomycin Level Trough 26.9 *H 10.0-20.0 UG/ML Bedside Glucose Comment Notified Nurse Current Medications Medications (Trade) Dose Ordered Sig/Sierra Route PRN Reason Start Time Stop Time Status Last Admin Dose Admin Acetaminophen (TYLenol 325MG TAB) 650 mg Q4H PRN PO MILD PAIN (1-3) 09/21/24 19:30 10/21/24 19:29 09/26/24 03:09 650 MG Acetaminophen (TYLenol 325MG TAB) 650 mg Q6H PRN PO TEMPERATURE GREATER THAN 101.5 09/21/24 19:30 10/21/24 19:29 Albumin Human 100 ml @ 0 mls/hr AD STAT IV 09/25/24 23:09 09/25/24 23:12 DC 09/25/24 23:17 100 MLS/HR Albuterol (DUOneb) 1 udvial [id number] IH 09/21/24 22:00 09/25/24 09:59 DC 09/25/24 06:43 1 UDVIAL Albuterol (DUOneb) 1 udvial [id number] IH 09/25/24 10:00 10/21/24 21:59 09/26/24 06:43 1 UDVIAL Aspirin (Aspirin 81mg Ec Tab) 81 mg DAILY PO 09/22/24 09:00 10/22/24 08:59 09/25/24 08:36 81 MG Atorvastatin Calcium (LIPItor 20MG) 20 mg HS PO 09/23/24 21:00 10/23/24 20:59 09/25/24 20:30 20 MG Atorvastatin Calcium (LIPItor 40MG) 40 mg HS PO 09/22/24 21:00 09/22/24 20:17 DC Azithromycin 250 ml @ 250 mls/hr Q24H IVPB 09/21/24 18:00 09/21/24 18:14 DC Cefepime HCl (MAXipime 1 GM vial) 1 gm Q24H IVPB 09/23/24 08:30 10/03/24 08:29 09/25/24 08:36 1 GM Chlordiazepoxide HCl (LIBrium 25 MG CAP) 25 mg Q2H PRN PO ALCOHOL WITHDRAWAL PROTOCOL 09/22/24 20:30 09/29/24 20:29 Chlordiazepoxide HCl (LIBrium 25 MG CAP) 50 mg Q1H PRN PO ALCOHOL WITHDRAWAL PROTOCOL 09/22/24 20:30 09/29/24 20:29 Clopidogrel Bisulfate (plaVIX 75MG) 75 mg DAILY PO 09/24/24 09:00 09/26/24 07:14 DC 09/25/24 08:38 75 MG Dextrose/Sodium Chloride 1,000 ml @ 0 mls/hr AD IV 09/22/24 00:00 09/23/24 21:23 DC 09/22/24 09:49 150 MLS/HR Doxycycline Hyclate (Doxycycline Hyclate) 100 mg BID PO 09/21/24 21:00 10/01/24 20:59 09/25/24 20:30 100 MG Famotidine (Pepcid 20mg Vial) 10 mg DAILY IV 09/22/24 09:00 10/22/24 08:59 09/25/24 08:36 10 MG Famotidine (Pepcid 20mg Tab) 10 mg Q48H PO 09/21/24 19:30 09/21/24 20:00 DC Ferrous Sulfate (Ferrous Sulfate) 325 mg DAILY PO 09/23/24 09:00 10/23/24 08:59 09/25/24 08:37 325 MG Fish Oil (Fish Oil 1000 Mg/Cap) 2,000 mg BID PO 09/22/24 21:00 10/22/24 20:59 09/25/24 20:30 2,000 MG Fluconazole/ Sodium Chloride (DiFLUCan 200 MG/ NS 100 ML) 200 mg Q24H IV 09/25/24 16:00 10/25/24 15:59 09/25/24 16:09 200 MG Furosemide (LASix 40MG VIAL) 80 mg Q12H IV 09/22/24 21:00 10/22/24 20:59 09/25/24 08:36 80 MG Gabapentin (NEURontin 100 mg CAP) 100 mg TID PO 09/24/24 21:00 10/24/24 20:59 09/25/24 20:31 100 MG Guaifenesin/ Dextromethorphan (RobiTUSSin DM 200/20MG 10ML) 10 ml Q4H PRN PO COUGH 09/21/24 19:30 10/21/24 19:29 09/23/24 22:06 10 ML Heparin Sodium (Porcine) (HEParin 5,000 UNIT VIAL) *calculation based on ACTUAL B... AD PRN IV HEPARIN PROTOCOL 09/21/24 19:30 09/26/24 07:14 DC Heparin Sodium/ Dextrose 250 ml @ 0 mls/hr Q6H IV 09/21/24 19:30 10/21/24 19:29 09/25/24 04:13 14.7 MLS/HR Insulin Glargine (LANtus 100 UNITS/ML 10 ML VIAL) 10 units BID@0730,2100 SQ 09/22/24 21:00 10/22/24 20:59 09/25/24 20:44 10 UNITS Insulin Human Regular (humuLIN R 100 UNIT/ML 3ML) INSULIN SLIDING SCAL... ACHS SQ 09/24/24 07:30 10/24/24 07:29 09/26/24 06:03 12 UNIT Insulin Human Regular 100 unit/ Sodium Chloride 101 ml @ 0 mls/hr PROTOCOL IV 09/21/24 20:00 09/23/24 21:20 DC 09/21/24 21:01 9.8 MLS/HR Insulin Human Regular 100 unit/ Sodium Chloride 101 ml @ 0 mls/hr PROTOCOL IV 09/22/24 00:00 09/22/24 00:03 DC Magnesium Sulfate 50 ml @ 0 mls/hr PROTOCOL IV 09/22/24 00:00 09/23/24 21:23 DC Magnesium Sulfate 50 ml @ 0 mls/hr PROTOCOL PRN IV OTH 09/22/24 00:00 09/22/24 00:04 DC 09/21/24 23:52 25 MLS/HR Mannitol 245 ml @ 0 mls/hr AD IV 09/22/24 00:30 09/22/24 20:17 DC Mannitol 500 ml @ 0 mls/hr AD IV 09/22/24 00:30 09/22/24 14:33 DC Mannitol (Osmitrol 20% 250ml Bag) 49 gm AD IV 09/22/24 00:00 09/22/24 00:28 DC Methylprednisolone Sodium Succinate (Solu-medROL 40MG) 40 mg BID IVP 09/22/24 09:00 10/22/24 08:59 09/25/24 20:31 40 MG Metoprolol Succinate (TopROL XL) 25 mg BID PO 09/26/24 09:00 10/26/24 08:59 Metoprolol Succinate (TopROL XL) 50 mg BID PO 09/24/24 21:00 09/26/24 07:14 DC 09/24/24 19:45 50 MG Metoprolol Tartrate (loprESSOR) 12.5 mg BID PO 09/22/24 21:00 09/24/24 16:38 DC 09/24/24 12:07 12.5 MG Miscellaneous Medication (Folic Acid/ Vitamin B Comp W-C (Ila-[place] Tablet)) 1 tab DAILY PO 09/23/24 09:00 09/22/24 15:56 DC Morphine Sulfate (morPHINE 2MG SYG) 2 mg Q4H PRN IVP SEVERE PAIN (7-10) 09/26/24 01:30 10/03/24 01:29 Multivitamins Therapeutic (Multivitamin Tablet) 1 tab DAILY PO 09/23/24 09:00 10/23/24 08:59 09/25/24 08:37 1 TAB Nifedipine (adALAT 30MG) 60 mg DAILY PO 09/23/24 09:00 10/23/24 08:59 09/25/24 08:37 60 MG Nitroglycerin (Nitroglycerin 1gm Oint) 0.5 inch Q8H TD 09/21/24 19:30 10/21/24 19:29 09/25/24 12:44 0.5 INCH Norepinephrine 250 ml @ 0 mls/hr AD PRN IV DIRECTED 09/26/24 01:30 10/26/24 01:29 09/26/24 01:40 0 MLS/HR Ondansetron HCl (zoFRAN 4MG INJ) 4 mg Q6H PRN IVP NAUSEA/VOMITING 09/26/24 01:30 10/26/24 01:29 09/26/24 03:06 4 MG Oseltamivir Phosphate (Tamiflu) 75 mg DAILY PO 09/22/24 09:00 09/23/24 13:29 DC 09/23/24 08:38 75 MG Oseltamivir Phosphate (Tamiflu) 75 mg QTUTHSA[DIALYSIS] PO 09/23/24 16:00 09/23/24 17:04 DC Oseltamivir Phosphate (Tamiflu) 75 mg QTUTHSA[DIALYSIS] PO 09/23/24 22:00 09/28/24 21:59 09/25/24 16:09 75 MG Pharmacy Profile Note (Pharmacy Communication) 1 each ONCE MISC 09/23/24 13:00 09/23/24 13:25 DC Pharmacy Profile Note (Pharmacy Communication) 1 each ONCE MISC 09/23/24 21:30 09/24/24 07:08 DC Pharmacy Profile Note (Pharmacy Communication) 1 each PROTOCOL PRN MISC ETOH Withdrawal Score changes 09/22/24 20:30 09/29/24 20:29 Piperacillin Sod/ Tazobactam Sod 50 ml @ 12.5 mls/hr Q12H IV 09/21/24 21:00 09/23/24 08:06 DC 09/22/24 20:43 12.5 MLS/HR Potassium Chloride 20 meq/ Sodium Chloride 1,010 ml @ 0 mls/hr PROTOCOL IV 09/22/24 00:00 09/23/24 21:23 DC Potassium Chloride/Dextrose/ Sod Cl 1,000 ml @ 0 mls/hr AD IV 09/22/24 00:00 09/23/24 21:23 DC Sodium Bicarbonate (Sodium Bicarbonate) 650 mg TID PO 09/24/24 09:00 10/24/24 08:59 09/25/24 20:30 650 MG Sodium Chloride 250 ml @ 0 mls/hr Q0M IV 09/25/24 23:00 10/25/24 22:59 Sodium Chloride 1,000 ml @ 0 mls/hr ONCE IV 09/23/24 19:30 10/23/24 19:29 09/23/24 19:53 1,000 MLS/HR Sodium Chloride 1,000 ml @ 100 mls/hr Q10H IV 09/21/24 19:30 10/21/24 19:29 09/23/24 12:53 100 MLS/HR Sodium Chloride 1,000 ml @ 200 mls/hr PROTOCOL IV 09/22/24 00:00 09/23/24 21:23 DC Thiamine HCl 100 mg/Folic Acid 1 mg/Multivitamins/ Minerals 10 ml/ Sodium Chloride 1,011.2 ml @ 100 mls/ hr Q24H IV 09/22/24 20:30 09/25/24 06:37 DC 09/22/24 20:43 100 MLS/HR Vancomycin HCl 250 ml @ 125 mls/hr Q72H IV 09/22/24 20:30 09/23/24 08:04 DC 09/22/24 20:48 125 MLS/HR Vancomycin HCl (Vancomycin 500mg+NS 100ml Ivpb) 1,000 mg DAILY08 IV 09/23/24 08:00 09/22/24 20:26 DC Vancomycin HCl (Vancomycin 750mg) 750 mg MWFPHD IVPB 09/26/24 16:00 10/03/24 23:29 Vancomycin HCl (Vancomycin 750mg) 750 mg Q24H IVPB 09/23/24 23:30 09/25/24 06:26 DC 09/24/24 22:43 750 MG Vitamin B Complex/ Vit C/Folic Acid (Nephrovite Tablet) 1 cap DAILY PO 09/23/24 09:00 10/23/24 08:59 09/25/24 08:37 1 CAP DIAGNOSTICS / RADIOLOGY: [ ] ASSESSMENT: Hyperosmolar Hyperglycemic Syndrome POA NSTEMI POA Influenza bronchopneumonia with sepsis POA Acute Hypoxemic Respiratory Failure POA Acute on chronic renal failure with concern for ATN POA Metabolic acidosis POA Lactic acidosis POA CKD stage 4 POA Uncontrolled Diabetes POA Protein Calorie malnutrition POA PLAN: Continue diflucan and zosyn Hemodialysis today CT cardio angio to assess coronary anatomy on renal diabetic diet We will start NS @ 100 ml / hr and re evaluate Continue Heparin drip per ACs protocol started by ER Patient on Doxycycline po and Zosyn renally dose We will continue Tamiflu 75mg po daily Continue Aspirin 81 mg po daily and metoprolol 12.5 mg b.i.d. Start atorvastatin 20 mg at night 300 mg of Plavix x1 then75 mg daily as per cardiology We will start on Famotidine 20 mg IV daily for GI prophylaxis Home medication reconciled Follow up Cardiology, critical Care, Nephrology recommendations We will request labs in am Further orders to follow depending on above results ATTESTATION BY PHYSICIAN I have seen and examined the patient. I reviewed the documentation, medical decision making, and treatment plan as noted by the resident provider above. I agree with the findings and plan of care. Guicho Mcneil IV, MD, NIHITHA MD Sep 26, 2024 08:55
[2024-09-26 09:24] LABS: ABG BASE EXCESS 5.4 mmol/L (-2.0-3.0); ABG HCO3 29.5 mmol/L (21.0-28.0); ABG OXYGEN SATURATION 93.6 % (94.0-98.0); ABG PCO2 41 mmHg (35-48); ABG PH 7.475 (7.350-7.450); PO2, ARTERIAL BG 63.4 mmHg (83.0-108.0); VENT MODE, BG CPAP 5, PS10 (ROOM AIR)
--- NOTE | 2024-09-26 12:00 | NUR ---
Pt tolerating hemodialysis. Voices no complaints, continues with levophed at 0.5 mcg/kg/min.
[2024-09-26 12:52] LABS: CREATININE 5.6 mg/dL (0.5-1.3); POTASSIUM 3.5 mmol/L (3.5-5.1)
[2024-09-26] MEDS: metOPROLol sucCINATE 25 MG TAB.SR.24H PO SCH (13:20)
[2024-09-26] MEDS: ZOSYN 3.375GM +NS 50ML IV SCH (14:38)
--- NOTE | 2024-09-26 15:00 | NUR ---
CORONARY CT Dr. Armenta at bedside to see pt. Plan of care/labs/vs discussed. Per Dr. Armenta hold off coronary ct until patient is more stable. Will reevaluate in am. Dr. Max Gonzales notified of Dr. Armenta request.
[2024-09-26] MEDS ORDERED: IpraTROPium/alBUTERol SULFATE 3 ML SOLUTION IH PRN (15:30)
[2024-09-26] MEDS ORDERED: VANCOMYCIN 750MG VIAL IVPB SCH (16:00)
--- NOTE | 2024-09-26 17:00 | NUR ---
levophed Levophed weaned off. sbp 100-110. Continue to monitor pt.
[2024-09-26] MEDS: OSELTAMIVIR PHOSPHATE 75 MG CAP PO SCH (17:07)
[2024-09-26] MEDS ORDERED: MAGNESIUM 2GM PREMIX 50ML 50 ML IV SCH (18:30)
[2024-09-26] MEDS: INSULIN REGULAR, HUMAN 3ML 100 UNIT in 0.9%NACL 100ML 100 ML IV SCH (18:36)
--- NOTE | 2024-09-26 19:42 | NUR ---
As per Estefania Hernández NP from [facility] dka paper protocol
[2024-09-26 20:22] LABS: CREATININE 7.9 mg/dL (0.5-1.3); POTASSIUM 4.6 mmol/L (3.5-5.1)
[2024-09-26] MEDS: INSULIN GLARgine 100 UNITS/ML 10 ML VIAL SQ SCH (21:00)
--- NOTE | 2024-09-26 22:35 | PN ---
SUBJECTIVE: The patient is seen in the ICU. This patient has NH, sepsis, mental status changes. The patient is in the ICU. The patient has become hypotensive, has been transferred to the ICU. The patient is critically ill, has become leukocytosis also, has received steroids. The patient is quite tachycardic. The patient's condition is critical and guarded. No other associated finding. No other aggravating or relieving factors. The patient is weak. PHYSICAL EXAMINATION: VITAL SIGNS: Blood pressure is kind of soft. Blood pressure has been around 97/68, pulse 82, respiratory rate is 16. HEENT: Head is atraumatic, normocephalic. Pupils are round and reactive. Sclerae are anicteric. Conjunctivae are not pale. Oral mucosa is not dry. NECK: Without masses or bruits. Thyroid is palpable. Neck has no bruits. CHEST: Shows equal thoracic percussion note being resonant in all areas. CARDIAC: Regular rhythm. No rub. No S3, S4. No parasternal heave. Apical beat is not localized. ABDOMEN: With no guarding or tenderness. Bowel sounds are normoactive. No free fluid. EXTREMITIES: With no edema and no cyanosis, clubbing. LABORATORY DATA: Labs have been reviewed and old records reviewed. PROBLEMS: Renal failure and anemia. The patient has hypotension, possible sepsis. PLAN: Antibiotic continues. Seen for dialysis, seen multiple times on dialysis. The patient was seen in ICU. We will continue to monitor and follow the overall status and blood pressure closely. White cell count and if possible inhaled beta agonist to be avoided because of tachycardia or minimized. I have discussed with other team members in detail. Thank you for this patient. TID: [id number] RECEIPT: [id number]
[2024-09-26 22:58] LABS: HEMATOCRIT 26.5 % (42-54); MEAN CORPUSCULAR HEMOGLOBIN 29.1 pg (27.0-33.0); MEAN CORPUSCULAR HGB CONC 34.7 g/dL (32.0-36.0); MEAN CORPUSCULAR VOLUME 83.9 fL (79-99); NUCLEATED RED BLOOD CELLS 4.6 % (0.0-0.19); RED BLOOD CELL COUNT(AUTO) 3.16 MIL/uL (4.50-6.20); RED CELL DISTRIBUTION WIDTH 12.8 % (11.0-15.5); WHITE BLOOD COUNT (AUTO) 22.8 K/uL (4.8-10.8)
--- NOTE | 2024-09-26 23:22 | PN ---
SUBJECTIVE: The patient is evaluated in the ICU and seen for dialysis multiple times. The patient is weak. He has been hypotensive in the ICU. Multiple other comorbidities are present. No other associated finding. No other aggravating or relieving factor. The patient has been on antibiotics for pneumonia. He has been tachycardic. He is being considered for CT angiogram of the chest. We will continue monitoring. The patient remains critically ill in the ICU. No other associated symptoms. No other aggravating or relieving factors. PHYSICAL EXAMINATION: VITAL SIGNS: Blood pressure has been borderline at around 97/68, pulse 82, respiratory rate is 16. HEENT: Head is atraumatic. Pupils are round and reactive. Sclerae are anicteric. Conjunctivae not pale. Oral mucosa is not dry. NECK: Without masses or bruits. Thyroid is palpable. LABORATORY DATA: Have been reviewed. Old records reviewed. PROBLEMS: Renal failure, anemia, and worsening leukocytosis. PLAN: Dialysis to continue. Followup on renal function, electrolytes, and sugars. Continue antibiotics. PermCath not possible due to leukocytosis. The patient has used steroids also. Overall condition remained critical and guarded. Seen several times today. Thank you for this patient. TID: [id number] RECEIPT: [id number]
[2024-09-27] VITALS (37 sets, daily range): BP systolic 91–126; BP diastolic 51–78; PULSE 71–83; RESP 13–39; TEMP 97.5–98.7; O2SAT 96–100
--- NOTE | 2024-09-27 | PN ---
[facility] PROGRESS NOTE Date Patient Seen: Sep 26, 2024 Time of Visit: 11:30 Supervising Physician: Yaw Emery MD Primary Care Physician: Gama Acosta Outpatient Specialists: [ ] Inpatient Consults: Cardiology, nephrology and critical care team PROBLEM LIST: Septic shock requiring pressors not POA, resolving Acute Hypoxemic Respiratory Failure, POA Acute on chronic CHF with EF of 35 40% Nstemi,likely Type II POA on Heparin gtt Community acquired influenza A viral pneumoniae w/ superimposed Bilateral bacterial Pneumonia, POA, Suspected aspiration pneumonia not POA Sepsis Due To Bilateral Pneumonia And Influenza A Infection, POA Acute Hypoxemic Respiratory Failure, POA Severe transaminitis 2/2 shocked liver not POA Esrd, POA now new HD s/p Rt permacath Recurrent Dka w/ reopening of AGAP and ketones Acute Metabolic Acidosis In The Context Of Dka and SAURABH , Poa Hyperkalemia In The Context Of Chronic Kidney Injury, Poa Morbid Obesity BMI 40.5, Poa INTERVAL HISTORY: 09/22/2024: At the time my evaluation, the patient was in the emergency depart ment awaiting bed assignment. The staff nurse reports no acute events overnight. The patient was on a Oxymizer with optimal SpO2. He was normotensive without the need for pressor therapy. There was no complaint of chest pain. There was no abdominal pain, nausea vomiting or diarrhea. The patient continued on a insulin drip per the DKA protocol. He was started on antibiotic and antiviral therapy for management of his condition. Review of labs today showed no major concern on CBC. Chemistry panel did show a sodium of 135, chloride of 100 and a CO2 of 20 with a anion gap of 15. Blood glucose remains elevated in the 300s. No new complaint. 09/23- saw patient and ED 13 awake alert and oriented x3. 2D echo at bedside being performed. Patient has been afebrile heart rate of 110, blood pressure 116/63 with respiratory rate of 20 saturating 97% with 7 L via nasal cannula oximizer. Urine output 1.4 L in the last 24 hours. On laboratory WBCs are 11.4 H&H trending down 7.6/23.1 with a platelet count that is 178 K. on chemistry sodium 136 potassium of 3.7 chloride 100 carbon dioxide of 19 BUN 106. Creatinine of 8.6 and GFR of 7. Per Dr Armenta pt scheduled for a Mitesh hemodialysis catheter per IR today. Pt continues with Tamiflu, Doxy, Cefepime and MRSA coverage will be added w/ vanco due to suspected MRSA superimposed pneumonia on Influenza pneumonia. On CT chest, abdomen and pelvis shows Acute appearing infiltrates in both lung bases consistent with pneumoniae. No acute finding in the abdomen or pelvis. Del Cid catheter in good position in the urinary bladder. We will continue to follow Neprhology recommendations. 09/24 patient was seen and examined at bedside with primary nurse present. Patient to receive1 unit PRBCs hemoglobin this a.m. 6.8. Continue to monitor closely. Patient to continue on IV antibiotics. Patient's troponin levels trending down. We will continue to follow recommendations of Cardiology. Patient remains hypoxic requiring supplemental oxygen via nasal cannula at L. Patient states does not use home oxygen. Patient is to continue on heparin drip. Patient to continue on IV steroids. Patient's echocardiogram revealed EF of 35-40%. Patient's blood cultures have been negative x2 days. Patient remains high risk for decompensation. 09/25 patient was seen and examined at bedside with mother present. At time of visit patient is currently on room air has been weaned off oxygen. Yesterday patient was on 5 L. As per patient is tolerating room air well. Patient denies any chest pain or shortness of breadth, however does report shortness of breath upon minimal exertion. Patient remains on heparin drip. Patient is still currently pending coronary CT to be completed, further recommendations by Cardiology to follow once examined has been completed. Patient to continue on hemodialysis per Nephrology's recommendations. 09/26/24-patient is awake alert and oriented x3. He requires Levophed at 0 point 4 micrograms/kilogram per minute for blood pressure support. He was brought into the ICU overnight due to hypotension and elevated liver enzymes. Current blood pressure of 129/74 heart rate in the 80s respiratory rate of 19 saturating 100% with 7 L via Oxymizer and afebrile. As per RN she is weaning Levophed. Urine output was 100 mL in the last 24 hours he received hemodialysis today with 3.6 L out and had one bowel movement. WBCs spiked up this morning from 17. 6224.2 H&H 8.6/25.4 and platelet count is normal 291 K. neutrophils 79.5. Suspect patient aspirated in the episode of hypotension due to increased pulmonary infiltrates to right side and spike in white count and temperature. Patient was panculture and cefepime changed to Zosyn to cover for aspiration pneumonia. On chest x-ray patient with a extensive bilateral infiltrates unchan ged. No pneumothorax. Chemistries sodium of 130 potassium is 6.2 chloride of 90 carbon dioxide of 17 with a BUN of 119 and creatinine 9.6 and GFR of six liver enzymes raised AST of 6752 ALT of 4302, alkaline phosphatase of 233 likely from shock liver procalcitonin elevated at 24.31 decreased from admission wishes 70. On repeat BNP patient has a sodium of 134 potassium of 3.5 chloride of 91 carbon dioxide 26 with a anion gap of 17 and ketones of 1.4 we will need to restart insulin drip per DKA protocol. REVIEW OF SYSTEMS: 12 point ROS reviewed with patient. Pertinent positives mentioned above. Otherwise negative. PHYSICAL EXAM: GENERAL: alert, weak, awake oriented x 3 HEENT: EOMI, Sclera non icteric, moist mucosa NECK: Supple, no JVD, trachea midline LUNGS: Diminished breath sounds bilaterally. No wheezes HEART: Regular rate and rhythm. Normal S1 and S2, without murmurs ABD: Abdomen soft, nontender. Bowel sounds present EXT: No clubbing cyanosis or edema NEURO: Alert and oriented to person, follows commands Vital Signs (last 8hr) Date Time Temp Pulse Resp B/P (MAP) Pulse Ox O2 Delivery O2 Flow Rate FiO2 09/26/24 23:00 82 18 105/67 100 N/C High Flow System 5.0 09/26/24 22:00 83 18 101/62 94 N/C High Flow System 5.0 09/26/24 21:00 85 22 105/63 97 N/C High Flow System 5.0 09/26/24 20:00 84 15 115/71 99 N/C High Flow System 5.0 09/26/24 20:00 96 Nasal Cannula* 3 32 09/26/24 19:00 98.8 84 15 113/66 98 N/C High Flow System 5.0 09/26/24 18:45 83 16 111/71 (84) 96 09/26/24 18:30 82 20 107/67 (80) 96 09/26/24 18:15 82 16 97/68 (78) 91 09/26/24 18:00 82 14 96/64 (75) 98 09/26/24 17:45 82 14 100/61 (74) 98 09/26/24 17:30 82 13 100/64 (76) 99 09/26/24 17:15 83 16 102/66 (78) 99 09/26/24 17:00 87 19 112/66 (81) 92 09/26/24 16:45 85 20 98/50 (66) 94 09/26/24 16:15 85 16 109/70 (83) 100 09/26/24 16:00 96 Nasal Cannula* 3 32 09/26/24 16:00 98.1 85 15 106/68 (81) 100 09/26/24 15:45 86 24 100/66 (77) 98 LABS: Hematology Labs: Test 09/26/24 22:42 09/26/24 05:46 Range/Units White Blood Count 22.8 H 4.8-10.8 K/uL Red Blood Count 3.16 L 4.50-6.20 MIL/uL Hemoglobin 9.2 L 14.0-18.0 g/dL Hematocrit 26.5 L 42-54 % Mean Corpuscular Volume 83.9 79-99 fL Mean Corpuscular Hemoglobin 29.1 27.0-33.0 pg Mean Corpuscular Hemoglobin Concent 34.7 32.0-36.0 g/dL Red Cell Distribution Width 12.8 11.0-15.5 % Platelet Count 255 130-400 K/uL Mean Platelet Volume 11.5 H 7.5-10.5 fL Nucleated Red Blood Cells 4.6 H 0.0-0.19 % Immature Granulocyte % (Auto) 11.3 H 0-1 % Neutrophils (%) (Auto) 79.5 H 40.0-77.0 % Lymphocytes (%) (Auto) 3.4 L 21.0-51.0 % Monocytes (%) (Auto) 5.5 3.0-13.0 % Eosinophils (%) (Auto) 0.0 0.0-8.0 % Basophils (%) (Auto) 0.3 0.0-5.0 % Neutrophils # (Auto) 19.2 H 1.8-7.7 K/uL Lymphocytes # (Auto) 0.8 L 1.0-4.8 K/uL Monocytes # (Auto) 1.3 H 0.1-1.0 K/uL Eosinophils # (Auto) 0.00 0.00-0.70 K/uL Basophils # (Auto) 0.08 0.00-0.20 K/uL Absolute Immature Granulocyte (auto 2.73 H 0-1 K/uL Chemistry Labs: Test 09/26/24 23:28 09/26/24 19:50 09/26/24 12:30 09/26/24 10:48 Range/Units Whole Blood Glucose 153 H 70-110 MG/DL Sodium Level 133 L 136-145 mmol/L Potassium Level 4.6 3.5-5.1 mmol/L Chloride Level 92 L 101-111 mmol/L Carbon Dioxide Level 24 21-32 mmol/L Blood Urea Nitrogen 93 #*H 7-18 mg/dL Creatinine 7.9 H 0.5-1.3 mg/dL Glomerular Filtration Rate Calc 8 >90 mL/min Random Glucose 254 #H 70-105 mg/dL Total Calcium 7.0 L 8.5-10.1 mg/dL Whole Blood Ketones Quantitative 1.4 H 0.0-0.6 mmol/L Ammonia 27 11-32 umol/L Procalcitonin 24.31 H 0.05-0.5 ng/mL Test 09/26/24 05:46 09/25/24 05:09 Range/Units Phosphorus Level 12.3 H 2.5-4.9 mg/dL Total Bilirubin 1.9 H 0.2-1.0 mg/dL Aspartate Amino Transf (AST/SGOT) 6752 *H 10-37 U/L Alanine Aminotransferase (ALT/SGPT) 4302 *H 12-78 U/L Alkaline Phosphatase 233 H 50-136 U/L Total Protein 6.2 6.0-8.3 g/dL Albumin 2.6 L 3.5-5.0 g/dL Vitamin B12 Level 981 193-986 pg/mL Vitamin D 25-Hydroxy 27.5 30.0-100.0 ng/mL Coagulation Labs: Test 09/26/24 12:30 09/26/24 05:46 Range/Units Activated Partial Thromboplast Time 22.2 #L 26.3-35.5 SEC Prothrombin Time 14.7 H 9.6-11.6 SEC Prothromb Time International Ratio 1.35 H 0.85-1.15 DIAGNOSTICS / RADIOLOGY RESULTS: [ ] Signed PATIENT: ADRIANA ABRAHAM MR#: [id number] : 1975 SEX: M AGE: 49 LOCATION: [facility] ORDER 16 STATUS: ADM IN REPORT#: [id number] SERVICE 06 REASON: FVO ORDERING PHYSICIAN: FELIX BARBOSA NP PROCEDURE: ECHO CMP - ECHO 2-D COMPLETE APPROVED REPORT EXAM: Two-dimensional and M-mode echocardiogram with Doppler and color Doppler. INDICATION ICD: Fluid volume overload 2D Dimensions RVDd 4.4 cm LVEF(%) 41.1 (>50%) LVED Vol(simp.) 176.0 mL IVSd 1.0 (0.7-1.1cm) FS(%) 20 % LVES Vol(simp.) 104.0 mL LVDd 5.4 (3.8-5.6cm) LA (2D) 4.1 (1.6-4.0cm) LVEF(%, simp.) 41 % PWd 1.4 (0.7-1.1cm) Ao Root(2D) 2.9 (2.0-3.7cm) LA ESV INDEX (4CH) 33.40 mL/m2 IVSs 1.2 cm LVOT diam 2.0 (1.8-2.4cm) LA ESV INDEX (2CH) 45.20 mL/m2 LVDs 4.3 (2.5-4.0cm) IVC diam 2.1 cm LA ESV INDEX (BP) 39.50 mL/m2 PWs 2.0 cm Deformation Strain Apical 4 -9.0 % Apical 2 -9.0 % Apical 3 -9.0 % Global Strain -9.0 % M-Mode Dimensions EPSS 1.7 cm LA (MM) 3.4 (1.6-4.0cm) Ao Root(MM) 3.3 (2.0-3.7cm) Aortic Valve AoV VTI 0.3 m Ao Mean GR 9.0 mmHg LVOT VTI 0.20 m STEPHANIE (VMAX) 1.9 cm2 STEPHANIE (VTI) 1.9 cm2 Mitral Valve MV E Vmax 149.3 cm/s DECEL Time 78 ms P 1/2 T 56 ms MVA (PHT) 3.9 cm2 TDI E/E' Medial 19.4 E/E' Lateral 11.8 Medial E' Peak V 7.70 cm/s Lateral E' Peak V 12.70 cm/s Tricuspid Valve RAP (EST) 8 mmHg RVSP 8.0 mmHg Left Ventricle The left ventricle is normal size. The inferior wall is severely hypokinetic. The other ibrahim are hypokinetic. Moderate concentric hypertrophy of the left ventricle is noted. Left ventricle systolic function is moderate to severely depressed, estimated LVEF 35 to 40%. E to E ratio is greater than 14, which is suggestive of increased left ventricle end-diastolic filling pressures. Right Ventricle The right ventricle is dilated. The right ventricular systolic function is normal. Atria The left atrium is mildly dilated, 40 mL/m. The right atrium is dilated. Aortic Valve Aortic valve is probably trileaflet. The leaflets are severely thickened and ca lcified. Trace aortic regurgitation. Mild aortic stenosis: Peak velocity 2.0 m/s, mean gradient 9 mmHg Mitral Valve Mild mitral annular calcification is noted. The leaflets are mild thickened and calcified. Trace mitral regurgitation. There is no mitral valve stenosis. Tricuspid Valve The tricuspid valve is normal in structure. Trace tricuspid regurgitation. RVSP is grossly normal, but is likely underestimated. Pulmonic Valve Pulmonic valve is not well visualized. Great Vessels The aortic root is normal in size. The IVC is normal in size and collapses <50% with inspiration. Pericardium Trace pericardial effusion. Other Information Quality : Technically difficult due to body habitus Conclusion The left atrium is mildly dilated, 40 mL/m. The right atrium is dilated. The right ventricle is dilated. Moderate concentric hypertrophy of the left ventricle is noted. The inferior wall is severely hypokinetic. The other ibrahim are hypokinetic. Left ventricle systolic function is moderate to severely depressed, estimated LVEF 35 to 40%. E to E ratio is greater than 14, which is suggestive of increased left ventricle end-diastolic filling pressures. Mild aortic stenosis: Peak velocity 2.0 m/s, mean gradient 9 mmHg (likely underestimated). Trace aortic regurgitation. Trace mitral regurgitation. Trace pericardial effusion. PASP is grossly normal, but is likely under estimated. Trace pericardial effusion. DICTATED BY: RONALD AGUAYO MD DATE: 09/23/24 0731 ELECTRONICALLY SIGNED BY: RONALD AGUAYO MD DATE: 09/24/24 010 PATIENT: ADRIANA ABRAHAM MR#: [id number] : 1975 SEX: M AGE: 49 LOCATION: [facility] ORDER 2300 STATUS: ADM IN REPORT#: [id number] SERVICE 0600 REASON: hypoxic resp failure ORDERING PHYSICIAN: SHVAON ARAGON PROCEDURE: CXR1VW - CHEST 1VW CHEST 1VW REASON: hypoxic resp failure COMPARISON: 09/23/2024 FINDINGS: There are diffuse bilateral infiltrates which are unchanged. Dialysis catheter remains in place. There is no pneumothorax or other complication. There are no pleural effusions. IMPRESSION: 1. Extensive bilateral infiltrates unchanged. DICTATED BY: ARMANDO FAIR MD DATE: 09/24/24 1051 ELECTRONICALLY SIGNED BY: ARMANDO FAIR MD DATE: 09/24/24 105 PLAN HD per Neprhology Vassopressor support to maintain MAP > 65 unable to administer 30ml/kg bolus due to ESRD and Hypoxic resp failure combined with heart failure. change cefepime to Zosyn Ritter culture Monitor Ketones Restart insulin gtt per DKA protocol monitor liver enzymes avoid hepatotoxic medications monitor metabolic acidosis Continue Solu-Medrol 40 BID IV and wean as tolerated NEURO: Minimize central acting medications as possible. Fall Precautions. Well lighted room through the day and minimize interruptions through the night to prevent acute delirium. PULMONARY: Supplemental 02 as needed DuoNebs every 6 hours Robitussin 10 mL q.4h p.r.n. for cough Titrate Fio2 to keep Spo2 > or = 90% DuoNebs and CPT as needed IS hourly while awake for pulmonary hygiene Out of bed to chair as tolerated CARDIOVASCULAR: Follow hemodynamics. Titrate vasopressor to keep MAP >65 or systolic blood pressure >95mmHg Aspirin 81 mg p.o. daily Atorvastatin 40 mg p.o. at bedtime Serial troponin level Behavioral Instructor consulted DIPS: Heparin drip conitnue Insulin gtt per DKA protocol Levophed weaning LINES: PIV HD Permacath to rt subclavian GI & NUTRITION: Continue nutritional support Aspirations precautions Prokinetic agents and laxatives as needed Keep patient NPO Renal diet KIDNEYS & ELECTROLYTES: Strict monitoring of intake and output Nephrology is consulted Obtain UA Daily weights Avoid nephrotoxic agents Monitor electrolytes and replace as needed Goal urine output of 30mL/hr or 0.5mL/kg/hr Urine output: [ ] Fluid Balance: [ ] HD per nephrology ENDOCRINE: Maintain blood glucose between 100-180 at all times. Insulin sliding scale for blood glucose management Insulin drip per DKA protocol INFECTIOUS DISEASE: Trend temperature. Ritter-culture if febrile. Micro: Blood cultures resp cultures panculture 09/26/24 Antibiotics: Zosyn 3.375 g IV every 8 hours and doxycycline 100 mg IV every 12 hours HEMATOLOGY & COAGULATION: Monitor H&H. Keep Hgb > 7 Transfuse 1 unit of PRBC for Hgb < 7 Transfuse 1 pack of platelets of platelets < 20, 000 Watch for any signs and symptoms of bleeding SKIN: Pressure ulcer prevention per facility protocol Rehab: PT/OT Prophylaxis: GI: Famotidine DVT: Heparin Code Status: Full Resuscitation Disposition: [Keep in ICU ] Other: Total patient care time exceeds 35 minutes excluding all procedures. Case was discussed and seen with my supervising physician. The above plan was formulated and agreed upon. SHAVON ARAGON Sep 27, 2024 00:00
[2024-09-27 00:49] LABS: POTASSIUM 4.5 mmol/L (3.5-5.1)
[2024-09-27 00:54] LABS: CREATININE 8.2 mg/dL (0.5-1.3)
[2024-09-27 04:19] LABS: HEMATOCRIT 26.3 % (42-54); MEAN CORPUSCULAR HGB CONC 33.8 g/dL (32.0-36.0); MEAN CORPUSCULAR VOLUME 85.7 fL (79-99); NUCLEATED RED BLOOD CELLS 4.8 % (0.0-0.19); PLATELET COUNT (AUTO) 220 K/uL (130-400); RED BLOOD CELL COUNT(AUTO) 3.07 MIL/uL (4.50-6.20); RED CELL DISTRIBUTION WIDTH 12.8 % (11.0-15.5); WHITE BLOOD COUNT (AUTO) 20.4 K/uL (4.8-10.8)
[2024-09-27 04:51] LABS: ALBUMIN 2.4 g/dL (3.5-5.0); BILIRUBIN,TOTAL 0.7 mg/dL (0.2-1.0); MAGNESIUM 2.1 mg/dL (1.80-2.40); PHOSPHORUS 10.9 mg/dL (2.5-4.9); POTASSIUM 4.6 mmol/L (3.5-5.1); TOTAL PROTEIN, SERUM 5.9 g/dL (6.0-8.3)
[2024-09-27 04:58] LABS: CREATININE 8.5 mg/dL (0.5-1.3)
[2024-09-27 05:00] LABS: BAND NEUTROPHILS % (MANUAL) 4 % (0-2); LYMPHOCYTES % (MANUAL) 5 % (22-44); MAN.DIFF COMMENT-IMPRESSION MANUAL DIFFERENTIAL; METAMYELOCYTES % 1 % (0-0); SEGMENTED NEUTROPHILS % 90 % (40-70); TOTAL CELLS COUNTED 100; WBC MORPHOLOGY IMMATURE GRAN 1+
--- NOTE | 2024-09-27 10:39 | PN ---
[facility] PROGRESS NOTE Date Patient Seen: Sep 27, 2024 Time of Visit: 10:39 Supervising Physician: Steve Dong MD Primary Care Physician: Gama Acosta Outpatient Specialists: [ ] Inpatient Consults: Cardiology, nephrology and critical care team PROBLEM LIST: Septic shock requiring pressors not POA, resolved Acute Hypoxemic Respiratory Failure, POA Acute on chronic CHF with EF of 35 40% Nstemi,likely Type II POA on Heparin gtt Community acquired influenza A viral pneumoniae w/ superimposed Bilateral bacterial Pneumonia, POA, Suspected aspiration pneumonia not POA Sepsis Due To Bilateral Pneumonia And Influenza A Infection, POA Acute Hypoxemic Respiratory Failure, POA Severe transaminitis 2/2 shocked liver not POA Esrd, POA now new HD s/p Rt permacath Recurrent Dka w/ reopening of AGAP and ketones Acute Metabolic Acidosis In The Context Of Dka and SAURABH , Poa Hyperkalemia In The Context Of Chronic Kidney Injury, Poa Morbid Obesity BMI 40.5, Poa INTERVAL HISTORY: 09/22/2024: At the time my evaluation, the patient was in the emergency dep artment awaiting bed assignment. The staff nurse reports no acute events overnight. The patient was on a Oxymizer with optimal SpO2. He was normotensive without the need for pressor therapy. There was no complaint of chest pain. There was no abdominal pain, nausea vomiting or diarrhea. The patient continued on a insulin drip per the DKA protocol. He was started on antibiotic and antiviral therapy for management of his condition. Review of labs today showed no major concern on CBC. Chemistry panel did show a sodium of 135, chloride of 100 and a CO2 of 20 with a anion gap of 15. Blood glucose remains elevated in the 300s. No new complaint. 09/23- saw patient and ED 13 awake alert and oriented x3. 2D echo at bedside being performed. Patient has been afebrile heart rate of 110, blood pressure 116/63 with respiratory rate of 20 saturating 97% with 7 L via nasal cannula oximizer. Urine output 1.4 L in the last 24 hours. On laboratory WBCs are 11.4 H&H trending down 7.6/23.1 with a platelet count that is 178 K. on chemistry sodium 136 potassium of 3.7 chloride 100 carbon dioxide of 19 BUN 106. Creatinine of 8.6 and GFR of 7. Per Dr Armenta pt scheduled for a Mitesh hemodialysis catheter per IR today. Pt continues with Tamiflu, Doxy, Cefepime and MRSA coverage will be added w/ vanco due to suspected MRSA superimposed pneumonia on Influenza pneumonia. On CT chest, abdomen and pelvis shows Acute appearing infiltrates in both lung bases consistent with pneumoniae. No acute finding in the abdomen or pelvis. Del Cid catheter in good position in the urinary bladder. We will continue to follow Neprhology recommendations. 09/24 patient was seen and examined at bedside with primary nurse present. Patient to receive1 unit PRBCs hemoglobin this a.m. 6.8. Continue to monitor closely. Patient to continue on IV antibiotics. Patient's troponin levels trending down. We will continue to follow recommendations of Cardiology. Patient remains hypoxic requiring supplemental oxygen via nasal cannula at L. Patient states does not use home oxygen. Patient is to continue on heparin drip. Patient to continue on IV steroids. Patient's echocardiogram revealed EF of 35-40%. Patient's blood cultures have been negative x2 days. Patient remains high risk for decompensation. 09/25 patient was seen and examined at bedside with mother present. At time of visit patient is currently on room air has been weaned off oxygen. Yesterday patient was on 5 L. As per patient is tolerating room air well. Patient denies any chest pain or shortness of breadth, however does report shortness of breath upon minimal exertion. Patient remains on heparin drip. Patient is still currently pending coronary CT to be completed, further recommendations by Cardiology to follow once examined has been completed. Patient to continue on hemodialysis per Nephrology's recommendations. 09/26/24-patient is awake alert and oriented x3. He requires Levophed at 0 point 4 micrograms/kilogram per minute for blood pressure support. He was brought into the ICU overnight due to hypotension and elevated liver enzymes. Current blood pressure of 129/74 heart rate in the 80s respiratory rate of 19 saturating 100% with 7 L via Oxymizer and afebrile. As per RN she is weaning Levophed. Urine output was 100 mL in the last 24 hours he received hemodialysis today with 3.6 L out and had one bowel movement. WBCs spiked up this morning from 17.6224.2 H&H 8.6/25.4 and platelet count is normal 291 K. neutrophils 79.5. Suspect patient aspirated in the episode of hypotension due to increased pulmonary infiltrates to right side and spike in white count and temperature. Patient was panculture and cefepime changed to Zosyn to cover for aspiration pneumonia. On chest x-ray patient with a extensive bilateral infiltrates unc hanged. No pneumothorax. Chemistries sodium of 130 potassium is 6.2 chloride of 90 carbon dioxide of 17 with a BUN of 119 and creatinine 9.6 and GFR of six liver enzymes raised AST of 6752 ALT of 4302, alkaline phosphatase of 233 likely from shock liver procalcitonin elevated at 24.31 decreased from admission wishes 70. On repeat BNP patient has a sodium of 134 potassium of 3.5 chloride of 91 carbon dioxide 26 with a anion gap of 17 and ketones of 1.4 we will need to restart insulin drip per DKA protocol. 09/27/24-pt is awake alert and oriented x 3. He is hemodynamically stable and off pressors. He denies any chill, chest pain or increased sob at rest. He does report sob on exertion and reports poor appetite. He is due for HD treatment today. Per RN no major overnight events and he has been afebrile. WBC's are trending down now 20.4, H&H is 8.9/26.3 and platelet count is 220 K. chemistry patient had a sodium of 134 potassium is normal 4.6 chloride of 92 carbon dioxide 24, AGAP has closed, liver enzymes severely elevated consistent with shocked lover but we will order us of abdomen to assess Liver and Gallbladder. Ketones of 0.2. We have discontinued DKA protocol and pt ,may be downgraded from ICU today. REVIEW OF SYSTEMS: 12 point ROS reviewed with patient. Pertinent positives mentioned above. Otherwise negative. PHYSICAL EXAM: GENERAL: alert, weak, awake oriented x 3 HEENT: EOMI, Sclera non icteric, moist mucosa NECK: Supple, no JVD, trachea midline LUNGS: coarse rhonchi breath sounds bilaterally. No wheezes HEART: Regular rate and rhythm. Normal S1 and S2, without murmurs ABD: Abdomen soft, nontender. Bowel sounds present EXT: No clubbing cyanosis or edema NEURO: Alert and oriented to person, follows commands Vital Signs (last 8hr) Date Time Temp Pulse Resp B/P (MAP) Pulse Ox O2 Delivery O2 Flow Rate FiO2 09/27/24 09:46 78 14 99/71 99 N/C High Flow System 5.0 09/27/24 09:16 79 18 105/71 95 N/C High Flow System 09/27/24 08:46 79 16 111/75 98 N/C High Flow System 5.0 09/27/24 08:16 79 15 105/69 99 N/C High Flow System 09/27/24 07:46 78 16 100/73 100 N/C High Flow System 5.0 09/27/24 07:16 98.1 80 20 110/75 100 N/C High Flow System 09/27/24 07:01 79 22 100/51 99 N/C High Flow System 5.0 09/27/24 06:00 77 14 94/60 100 N/C High Flow System 5.0 09/27/24 05:00 78 17 91/63 97 N/C High Flow System 5.0 09/27/24 04:00 76 15 96/59 99 N/C High Flow System 5.0 09/27/24 03:00 79 39 96/63 95 N/C High Flow System 5.0 LABS: Hematology Labs: Test 09/27/24 04:02 09/26/24 05:46 Range/Units White Blood Count 20.4 H 4.8-10.8 K/uL Red Blood Count 3.07 L 4.50-6.20 MIL/uL Hemoglobin 8.9 L 14.0-18.0 g/dL Hematocrit 26.3 L 42-54 % Mean Corpuscular Volume 85.7 79-99 fL Mean Corpuscular Hemoglobin 29.0 27.0-33.0 pg Mean Corpuscular Hemoglobin Concent 33.8 32.0-36.0 g/dL Red Cell Distribution Width 12.8 11.0-15.5 % Platelet Count 220 130-400 K/uL Mean Platelet Volume 11.8 H 7.5-10.5 fL Segmented Neutrophils % 90 H 40-70 % Band Neutrophils % 4 H 0-2 % Lymphocytes % (Manual) 5 L 22-44 % Metamyelocytes % 1 H 0-0 % Nucleated Red Blood Cells 4.8 H 0.0-0.19 % Differential Comment MANUAL DIFFERENTIAL White Cell Morphology Comment IMMATURE GRAN 1+ Platelet Morphology Comment See comments Red Blood Cell Morphology See comments Immature Granulocyte % (Auto) 11.3 H 0-1 % Neutrophils (%) (Auto) 79.5 H 40.0-77.0 % Lymphocytes (%) (Auto) 3.4 L 21.0-51.0 % Monocytes (%) (Auto) 5.5 3.0-13.0 % Eosinophils (%) (Auto) 0.0 0.0-8.0 % Basophils (%) (Auto) 0.3 0.0-5.0 % Neutrophils # (Auto) 19.2 H 1.8-7.7 K/uL Lymphocytes # (Auto) 0.8 L 1.0-4.8 K/uL Monocytes # (Auto) 1.3 H 0.1-1.0 K/uL Eosinophils # (Auto) 0.00 0.00-0.70 K/uL Basophils # (Auto) 0.08 0.00-0.20 K/uL Absolute Immature Granulocyte (auto 2.73 H 0-1 K/uL Chemistry Labs: Test 09/27/24 10:10 09/27/24 04:02 09/26/24 10:48 Range/Units Whole Blood Glucose 138 H 70-110 MG/DL Sodium Level 134 L 136-145 mmol/L Potassium Level 4.6 3.5-5.1 mmol/L Chloride Level 92 L 101-111 mmol/L Carbon Dioxide Level 24 21-32 mmol/L Blood Urea Nitrogen 99 *H 7-18 mg/dL Creatinine 8.5 *H 0.5-1.3 mg/dL Glomerular Filtration Rate Calc 7 >90 mL/min Random Glucose 137 H 70-105 mg/dL Whole Blood Ketones Quantitative 0.2 0.0-0.6 mmol/L Total Calcium 6.6 L 8.5-10.1 mg/dL Phosphorus Level 10.9 H 2.5-4.9 mg/dL Magnesium Level 2.10 1.80-2.40 mg/dL Total Bilirubin 0.7 # 0.2-1.0 mg/dL Aspartate Amino Transf (AST/SGOT) 5360 *H 10-37 U/L Alanine Aminotransferase (ALT/SGPT) 4896 *H 12-78 U/L Alkaline Phosphatase 238 H 50-136 U/L Total Protein 5.9 L 6.0-8.3 g/dL Albumin 2.4 L 3.5-5.0 g/dL Ammonia 27 11-32 umol/L Procalcitonin 24.31 H 0.05-0.5 ng/mL Coagulation Labs: Test 09/26/24 12:30 09/26/24 05:46 Range/Units Activated Partial Thromboplast Time 22.2 #L 26.3-35.5 SEC Prothrombin Time 14.7 H 9.6-11.6 SEC Prothromb Time International Ratio 1.35 H 0.85-1.15 DIAGNOSTICS / RADIOLOGY RESULTS: [ ] PLAN HD per Neprhology off pressors continue Zosyn follow cultures Ketones normalized DC insulin gtt monitor liver enzymes avoid hepatotoxic medications hold Statins Wean steroids prednisone 20mg po daily x 3 more days. NEURO: Minimize central acting medications as possible. Fall Precautions. Well lighted room through the day and minimize interruptions through the night to prevent acute delirium. PULMONARY: Supplemental 02 as needed DuoNebs every 6 hours Robitussin 10 mL q.4h p.r.n. for cough Titrate Fio2 to keep Spo2 > or = 90% DuoNebs and CPT as needed IS hourly while awake for pulmonary hygiene Out of bed to chair as tolerated CARDIOVASCULAR: Follow hemodynamics. Titrate vasopressor to keep MAP >65 or systolic blood pressure >95mmHg Aspirin 81 mg p.o. daily Atorvastatin 40 mg p.o. at bedtime Serial troponin level Mobile Web Application Developer consulted DIPS: Heparin drip conitnue Insulin gtt per DKA protocol Levophed weaning LINES: PIV HD Permacath to rt subclavian GI & NUTRITION: Continue nutritional support Aspirations precautions Prokinetic agents and laxatives as needed Keep patient NPO Renal diet KIDNEYS & ELECTROLYTES: Strict monitoring of intake and output Nephrology is consulted Obtain UA Daily weights Avoid nephrotoxic agents Monitor electrolytes and replace as needed Goal urine output of 30mL/hr or 0.5mL/kg/hr Urine output: [ ] Fluid Balance: [ ] HD per nephrology ENDOCRINE: Maintain blood glucose between 100-180 at all times. Insulin sliding scale for blood glucose management Insulin drip per DKA protocol INFECTIOUS DISEASE: Trend temperature. Ritter-culture if febrile. Micro: Blood cultures resp cultures panculture 09/26/24 Antibiotics: Zosyn 3.375 g IV every 8 hours and doxycycline 100 mg IV every 12 hours HEMATOLOGY & COAGULATION: Monitor H&H. Keep Hgb > 7 Transfuse 1 unit of PRBC for Hgb < 7 Transfuse 1 pack of platelets of platelets < 20, 000 Watch for any signs and symptoms of bleeding SKIN: Pressure ulcer prevention per facility protocol Rehab: PT/OT Prophylaxis: GI: Famotidine DVT: Heparin Code Status: Full Resuscitation Disposition:downgrade from icu Other: Total patient care time exceeds 35 minutes excluding all procedures. Case was discussed and seen with my supervising physician. The above plan was formulated and agreed upon. SHAVON ARAGON Sep 27, 2024 10:39
[2024-09-27] MEDS: chlordiazePOXIDE HCL 25 MG CAP PO PRN (11:29)
[2024-09-27] MEDS: PANTOPrazole 40 MG/VIAL IVP ONE (12:08)
--- NOTE | 2024-09-27 12:59 | PN ---
[facility] PROGRESS NOTE Date Patient Seen: Sep 27, 2024 Time of Visit: 12:53 Problem List: NSTEMI Volume overload 2/2 progression of ESRD Influenza A, Tamiflu started on 09/22/2024 Bilateral pneumonia HHS and DKA, on Insulin gtt HTN HLD DM type II 2D echo on 04/06/2024 demonstrated an EF of 45-50% Lexiscan stress test on 04/07/2024 demonstrated a fixed basal mid inferolateral and basal inferior defect with no reversible ischemia Interval History: [No acute events overnight. Patient's hemodynamics have remained stable and he has been afebrile in no acute distress. Respiratory status and electrolyte derangements improving following hemodialysis. Patient remains volume overloaded what is oliguric so volume reduction is via HD only at this time. Given his flu, volume overload state and sepsis we have defer coronary CTA pending further stabilization. He denies any anginal symptoms or equivalents at this time. Following further aggressive volume removal we will plan for coron efren CTA hopefully Sunday morning ] Physical Examination: GENERAL: No acute distress. HEAD: Normal with no signs of head trauma. EYES: PERRLA, EOMI, conjunctiva and sclera normal. ENT: Hearing grossly intact, normal oropharynx. NECK: Supple without JVD. There is no tenderness, lymphadenopathy, or masses. No thyromegaly. Normal carotid upstrokes without bruits. LUNGS: Crackles to bases bilaterally. HEART: Tachycardic rate and normal rhythm. Normal S1 and S2 without murmurs, gallop or rub. VASC: BLE 2+ pitting edema ABD: Bowel sounds normal, soft, nontender, no masses, no organomegaly. No audible bruits. : Not examined LYMPH: No lymphadenopathy noted. EXT: No clubbing, cyanosis 2+ bilateral lower extremity pitting edema SKIN: No rashes or lesions noted. NEURO: Awake, alert, and oriented x3. No focal sensory or strength deficits noted. Laboratory: [ ] Hematology Labs: Test 09/27/24 04:02 09/26/24 05:46 Range/Units White Blood Count 20.4 H 4.8-10.8 K/uL Red Blood Count 3.07 L 4.50-6.20 MIL/uL Hemoglobin 8.9 L 14.0-18.0 g/dL Hematocrit 26.3 L 42-54 % Mean Corpuscular Volume 85.7 79-99 fL Mean Corpuscular Hemoglobin 29.0 27.0-33.0 pg Mean Corpuscular Hemoglobin Concent 33.8 32.0-36.0 g/dL Red Cell Distribution Width 12.8 11.0-15.5 % Platelet Count 220 130-400 K/uL Mean Platelet Volume 11.8 H 7.5-10.5 fL Segmented Neutrophils % 90 H 40-70 % Band Neutrophils % 4 H 0-2 % Lymphocytes % (Manual) 5 L 22-44 % Metamyelocytes % 1 H 0-0 % Nucleated Red Blood Cells 4.8 H 0.0-0.19 % Differential Comment MANUAL DIFFERENTIAL White Cell Morphology Comment IMMATURE GRAN 1+ Platelet Morphology Comment See comments Red Blood Cell Morphology See comments Immature Granulocyte % (Auto) 11.3 H 0-1 % Neutrophils (%) (Auto) 79.5 H 40.0-77.0 % Lymphocytes (%) (Auto) 3.4 L 21.0-51.0 % Monocytes (%) (Auto) 5.5 3.0-13.0 % Eosinophils (%) (Auto) 0.0 0.0-8.0 % Basophils (%) (Auto) 0.3 0.0-5.0 % Neutrophils # (Auto) 19.2 H 1.8-7.7 K/uL Lymphocytes # (Auto) 0.8 L 1.0-4.8 K/uL Monocytes # (Auto) 1.3 H 0.1-1.0 K/uL Eosinophils # (Auto) 0.00 0.00-0.70 K/uL Basophils # (Auto) 0.08 0.00-0.20 K/uL Absolute Immature Granulocyte (auto 2.73 H 0-1 K/uL Chemistry Labs: Test 09/27/24 11:44 09/27/24 04:02 09/26/24 10:48 Range/Units Whole Blood Glucose 180 H 70-110 MG/DL Sodium Level 134 L 136-145 mmol/L Potassium Level 4.6 3.5-5.1 mmol/L Chloride Level 92 L 101-111 mmol/L Carbon Dioxide Level 24 21-32 mmol/L Blood Urea Nitrogen 99 *H 7-18 mg/dL Creatinine 8.5 *H 0.5-1.3 mg/dL Glomerular Filtration Rate Calc 7 >90 mL/min Random Glucose 137 H 70-105 mg/dL Whole Blood Ketones Quantitative 0.2 0.0-0.6 mmol/L Total Calcium 6.6 L 8.5-10.1 mg/dL Phosphorus Level 10.9 H 2.5-4.9 mg/dL Magnesium Level 2.10 1.80-2.40 mg/dL Total Bilirubin 0.7 # 0.2-1.0 mg/dL Aspartate Amino Transf (AST/SGOT) 5360 *H 10-37 U/L Alanine Aminotransferase (ALT/SGPT) 4896 *H 12-78 U/L Alkaline Phosphatase 238 H 50-136 U/L Total Protein 5.9 L 6.0-8.3 g/dL Albumin 2.4 L 3.5-5.0 g/dL Ammonia 27 11-32 umol/L Procalcitonin 24.31 H 0.05-0.5 ng/mL Coagulation Labs: Test 09/26/24 12:30 09/26/24 05:46 Range/Units Activated Partial Thromboplast Time 22.2 #L 26.3-35.5 SEC Prothrombin Time 14.7 H 9.6-11.6 SEC Prothromb Time International Ratio 1.35 H 0.85-1.15 Diagnostics / Radiology: [Copy/Paste Echos/Imaging Report here] Impression and Plan: NSTEMI Volume overload 2/2 progression of ESRD Influenza A, Tamiflu started on 09/22/2024 Bilateral pneumonia HHS and DKA, on Insulin gtt HTN HLD DM type II 2D echo on 04/06/2024 demonstrated an EF of 45-50% Lexiscan stress test on 04/07/2024 demonstrated a fixed basal mid inferolateral and basal inferior defect with no reversible ischemia NSTEMI Troponin of 5531, 5716, 8278, and 6392 EKG demonstrated sinus tachycardia with a heart rate of 121 beats per minute, LAE, and diffuse ischemia On heparin drip per [facility] protocol, started. Patient has completed more than 48 hours of IV heparin and has been since discontinued -patient require a total of 12 months of dap (aspirin 81 mg daily/Plavix 75 mg daily) in addition to Lipitor 40 mg q.h.s. -TTE showed severely hypokinetic inferior wall, EF 35-40 %, prior Lexiscan stress test shows fixed defects in the inferior wall . -patient is currently flu positive, has sepsis, and is significantly volume overloaded unable to lie flat -volume reduction via HD as patient is oliguric. Pending further stabilization and treatment of sepsis/flu we will proceed with coronary CTA -pending coronary CTA results we will determine the need to proceed for the coronary angiogram during this admission -he currently denies any anginal symptoms or equivalents. Please keep on telemetry and monitor/replace electrolytes as needed #Acute on chronic HFrEF: Presumed to be ischemic cardiomyopathy, LVEF 35-40% with inferior wall hypokinesis. NYHA III, volume overloaded, stage C Prior Lexiscan stress test with fixed inferior defect suggestive of scar Given his volume overload state and NSTEMI we will plan for coronary CTA pending euvolemia and management of his underlying sepsis Given his soft systolic blood pressures electrolyte derangements we will defer optimization of GDM T Continue beta-halima therapy and prior to discharge we will transition to T [id number] Strict I's and O's and daily weights. Volume reduction via HD Nephrology is following, recommendations appreciated Thank you for this consult cardiology will continue to follow along,. formal recommendations pending CCTA results ARIELA CHOI MD Sep 27, 2024 12:58
[2024-09-27] MEDS ORDERED: 0.9%NACL 1000ML 1,000 ML IV SCH (14:30)
[2024-09-27] MEDS: 0.9%NACL 1000ML 1,000 ML IV SCH (15:11)
--- NOTE | 2024-09-27 15:34 | PN ---
[facility] PROGRESS NOTE Date of Service: Sep 27, 2024 Time of Service: 15:29 SUBJECTIVE: This is a 49-year-old male with past medical history of CKD not on hemodialysis, diabetes, hypertension, hyperlipidemia and obesity who presents to the ED for complaints of cough and chest congestion which started last Sunday and getting worse on Sunday. Patient reports coughing up pinkish colored thick phlegm, loss of appetite and on Sunday started not eating unable to sleep, vomiting and having chest pain triggered by persistent coughing he said.Patient reports having soreness due to hard cough he said.Patient reports having sweeling on both lower extremities and started having shortness of breath and today he started having non bloody diarrhea. Neela was at bedside during my evaluation. 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 Seen and examined patient in the Er awake,alert and coherent,appears weak looking.Patient denies fever,palpitation ,dizziness ,sore throat and headache. Latest vital signs temperature 98.1, heart rate 108, respiration 30 blood pressure 130/68 saturation 91% on 4 L nasal cannula. Labs: WBC 11.2, hemoglobin 9, hematocrit 27, platelet count 238, neutrophils 88. PH 7.32, CO2 26, PO2 49.6, bicarb 13, PO2 80 base excess -11.3. Sodium 129, potassium 5.9, chloride 93, CO2 19, BUN 88, creatinine 8.2, GFR seven glucose 876 , lactic acid 3.0-3.2, troponin 5531 albumin 2.1. Influenza A positive influenza B negative SARs COVID negative. Strep A negative. Chest x-ray result revealed extensive bilateral mid to lower lung pneumonia right greater than left. First ECG result revealed sinus tachycardia heart rate 121 probable left atrial enlargement repolarization abnormal suggest ischemia diffuse leads ST-elevation consider anterior injury. Second EKG result revealed sinus tachycardia repolarization abnormality suggest ischemia diffuse leads borderline ST elevation anterior leads heart rate 108. While in the ER patient received Tamiflu 75 mg p.o., 1 L NS bolus, Lopressor 5 mg IV, insulin 10 units IV, Zosyn IV, Zofran 4 mg IV and Phenergan codeine 10 mL p.o. we will admit patient in ICU for further medical management. 09/22/24 patient was seen and examined in ED bed 13. Today his vitals are 145/84, respiratory rate 22, SpO2 99% on 7 L nasal cannula, pulse rate 110. He complaints of cough with sputum, but says it is getting better than yesterday, denies shortness of breath or chest pain or dizziness. Nephrology was consulted and recommended to start Lasix 80 mg IV b.i.d and to start renal diabetic diet. He is currently on zosyn , doxycycline and Tamiflu. He is on IV insulin drip and glucose has come down from 8 0s to 400s. Pending Cardiology recommendations. He requires sleep study once he is discharged. 09/23/24 Patient was seen and examined in ED bed 13. Today his vitals are BP 132/78, IN 105, SpO2 96% on 4 L nasal cannula. Patient says his cough is getting better, no chest pain but complains of mild left lower abdominal pain and bloating, no bowel movement since yesterday morning. His renal function continues to decline , his creatinine is up from 8.1 to 8.4. Nephrology recommended PermCath to be placed by IR for hemodialysis. Cardiology recommended to continue aspirin 81 mg daily and metoprolol tartrate 12.5 mg and possible angiogram to assess coronary anatomy as his EKG showed sinus tachycardia, LAE and diffuse ischemia. Pending 2D echo results. 09/24/24 Patient was seen and examined in room 430. His vitals are blood pressure 129/73, pulse rate 109, respiratory rate 20, T-max 98.1, SpO2 94% on5 L nasal cannula. Patient complains of mild weakness when he moves from chair to the bed, otherwise has no complaints. Says he soiled the bed earlier this morning he was trying to get up to go to the restroom. Mitesh catheter was placed yesterday and 1L fluid was removed. Insulin drip was stopped last night currently his glucoses over 500. Remarkable labs are sodium 132, BUN 90, creatinine 7.7, calcium 7.2, phosphorus 7.5, hemoglobin dropped from 8.3-6.8 and hematocrit from 24.4-20.4, will transfuse one unit RBC. His respiratory cultures came back positive for Dunia albicans, we will start him on diflucan. MRSA DNA nasal swab was negative. 2D echo showed mildly dilated left atrium, dilated right atrium and ventricle, moderate concentric hypertrophy of left ventricle, severely hypokinetic inferior wall and LVEF 35-40% with mild aortic stenosis, trace aortic regurgitation, trace mitral regurgitation, trace pericardial effusion. Cardiology recommended CT cardio angio with contrast once the patient is euvolemic. His hepatitis-C and HIV panel came back nonreactive, positive hepatitis-B surface antibody. CT abdomen and pelvis acute appearing infiltrates in both lung bases consistent with pneumonia but no acute finding in the abdomen or pelvis. 09/25/24 Patient was seen and examined at bedside. He is hemodynamically stable, has no complaints. He denies chest pain or shortness of breath or dizziness or palpitations or abdominal pain, he complains of shortness of breath with minimal exertion, his hemoglobin improved to 8.3 He is still pending a coronary an giography. Was started on metoprolol by cardiology. Will follow nephrology recommendations on dialysis. Yesterday 1.2 L was ultrafiltered. Continue diflucan. Plan is to consult cardiovascular surgeon for AV access for outpatient hemodialysis. 09/26/24 Patient was lying comfortably in bed with at his bedside, currently undergoing hemodialysis. He was shifted to ICU last night because his systolic blood pressure dropped to 80s and 90s and was started on norepinephrine drip. He has acute liver injury, his labs are AST 6752, ALT 4300, ALP 233, probable causes include ischemic injury [place] [address], hemoglobin improved to 8.6. Plan is to do CT coronary angiography to assess coronary anatomy if stabilized. Currently, his blood pressure is holding up in 120s and heart rate in 70s. 09/27/24. Patient is awake, alert and oriented, has no complaints of chest pain, shortness of breath, fever, chills, nausea or vomiting. Family members present at bedside. Patient has shown significant improvement in his DKA status and infection markers, with WBC and liver function trending downward. Insulin drip will be stopped. Patient continues on Zosyn and Doxycycline.Lab work up showed creatinine increasing from 8.2 to 8.5 and BUN from 97 to 99, patient will remain in HD under nephrology's guidance. Cardiology monitoring troponin level closely, which initially increased to 8278 but are now trending down to 1150. CTA is scheduled for Sunday. We will continue to monitor all markers closely. REVIEW OF SYSTEMS CONSTITUTIONAL: Denies fevers, chills, or night sweats. No unintentional weight loss reported. NEUROLOGICAL: Denies headache, amaurosis fugax, motor weakness, sensory deficit, vertigo/spinning sensation, gait abnormalities, or tremors. ENT: No hearing loss, otalgia, otorrhea, rhinitis, rhinorrhea, hoarseness, or sore throat. CARDIOVASCULAR: Complaints of orthopnea shortness of breaths and chest pain Denies paroxysmal nocturnal dyspnea, palpitations, life-threatening arrhythmias, claudication. PULMONARY: Complaints of productive cough , pleuritic chest pain and shortness of breaths SLEEP: Complains of unable to sleep Denies morning headaches, daytime somnolence or napping. Denies waking from sleep. Denies knowledge of snorin g. GASTROINTESTINAL: Complaints of loss of appetite, vomiting and diarrhea Denies any type of dysphagia to either liquids or solids. Denies nausea, vomiting, pyrosis, early satiety, abdominal pain, diarrhea, constipation, or changes in stool consistency or caliber. Denies coffee-ground emesis, hematemesis, hematochezia, or melanotic stools. GENITOURINARY: Denies frequency, urgency, nocturia, hematuria or incontinence (Storage/Irritative symptoms.) Low urinary stream, straining to void, urinary intermittency or hesitancy, splitting of the voiding stream, terminal dribbling. ENDOCRINOLOGIC: Denies polyuria, polydipsia, polyphagia or heat/cold intolerances. Patient reports not taking medications for diabetes because he was not eating. HEMATOLOGIC: Denies thrombophilia/previous clots, or coagulopathy/bleeding disorders. ONCOLOGIC: Denies personal history of malignancy. DERMATOLOGIC: Denies rashes or pruritus. PSYCHIATRIC: Denies any suicidal or homicidal ideation. Denies hallucinations. PHYSICAL EXAM GENERAL APPEARANCE: The patient is awake, alert, and oriented appears generally weak NEUROLOGICAL: Cranial nerves II-XII grossly intact. Motor is 5/5 in bilateral upper and lower extremities proximal to distal. No sensory deficits. HEENT: Face is symmetric. Pupils are equal and reactive. Extraocular movements are intact. NECK: Supple. No JVD. No thyromegaly. No submental, submandibular, pre-/postauricular, occipital or supraclavicular lymphadenopathy. CHEST: Normal chest expansion. No Telemetry. LUNGS: . Diminished lung sounds to bilateral lung james CARDIOVASCULAR: Tachycardic Regular. S1 and S2 normal. No appreciable rubs, murmurs or gallops. ABDOMEN: Round and firmed There is no rebound, voluntary guarding, or rigidity. : Deferred. No Del Cid. EXTREMITIES: Bilateral lower extremity edema No clubbing. Good capillary refill. SKIN: No skin breakdown. Vital Signs (last 8hr) Date Time Temp Pulse Resp B/P (MAP) Pulse Ox O2 Delivery O2 Flow Rate FiO2 09/27/24 12:46 73 14 119/62 96 N/C High Flow System 09/27/24 12:00 76 15 95 09/27/24 11:46 77 15 126/70 95 N/C High Flow System 2.0 09/27/24 11:29 98.1 79 16 126/53 94 N/C High Flow System 2.0 09/27/24 11:05 82 17 106/62 99 N/C High Flow System 3.0 09/27/24 10:31 82 13 98/64 97 N/C High Flow System 3.0 09/27/24 10:16 82 18 97/65 98 N/C High Flow System 3.0 09/27/24 10:01 80 18 115/72 97 N/C High Flow System 3.0 09/27/24 09:46 78 14 99/71 99 N/C High Flow System 5.0 09/27/24 09:16 79 18 105/71 95 N/C High Flow System 09/27/24 08:46 79 16 111/75 98 N/C High Flow System 5.0 09/27/24 08:16 79 15 105/69 99 N/C High Flow System 09/27/24 08:00 100 Nasal Cannula* 3 32 09/27/24 07:46 78 16 100/73 100 N/C High Flow System 5.0 LABS: Laboratory: Test 09/27/24 11:44 09/27/24 04:02 09/26/24 15:15 09/26/24 13:10 Range/Units Whole Blood Glucose 180 H 70-110 MG/DL White Blood Count 20.4 H 4.8-10.8 K/uL Red Blood Count 3.07 L 4.50-6.20 MIL/uL Hemoglobin 8.9 L 14.0-18.0 g/dL Hematocrit 26.3 L 42-54 % Mean Corpuscular Volume 85.7 79-99 fL Mean Corpuscular Hemoglobin 29.0 27.0-33.0 pg Mean Corpuscular Hemoglobin Concent 33.8 32.0-36.0 g/dL Red Cell Distribution Width 12.8 11.0-15.5 % Platelet Count 220 130-400 K/uL Mean Platelet Volume 11.8 H 7.5-10.5 fL Segmented Neutrophils % 90 H 40-70 % Band Neutrophils % 4 H 0-2 % Lymphocytes % (Manual) 5 L 22-44 % Metamyelocytes % 1 H 0-0 % Nucleated Red Blood Cells 4.8 H 0.0-0.19 % Differential Comment MANUAL DIFFERENTIAL White Cell Morphology Comment IMMATURE GRAN 1+ Platelet Morphology Comment See comments Red Blood Cell Morphology See comments Sodium Level 134 L 136-145 mmol/L Potassium Level 4.6 3.5-5.1 mmol/L Chloride Level 92 L 101-111 mmol/L Carbon Dioxide Level 24 21-32 mmol/L Blood Urea Nitrogen 99 *H 7-18 mg/dL Creatinine 8.5 *H 0.5-1.3 mg/dL Glomerular Filtration Rate Calc 7 >90 mL/min Random Glucose 137 H 70-105 mg/dL Whole Blood Ketones Quantitative 0.2 0.0-0.6 mmol/L Total Calcium 6.6 L 8.5-10.1 mg/dL Phosphorus Level 10.9 H 2.5-4.9 mg/dL Magnesium Level 2.10 1.80-2.40 mg/dL Total Bilirubin 0.7 # 0.2-1.0 mg/dL Aspartate Amino Transf (AST/SGOT) 5360 *H 10-37 U/L Alanine Aminotransferase (ALT/SGPT) 4896 *H 12-78 U/L Alkaline Phosphatase 238 H 50-136 U/L Total Protein 5.9 L 6.0-8.3 g/dL Albumin 2.4 L 3.5-5.0 g/dL Vancomycin Level Trough 17.1 # 10.0-20.0 UG/ML SARS-CoV-2 Antigen (Rapid) PRESUMPTIVE NEGATIVE NEGATIVE Test 09/26/24 12:30 09/26/24 10:48 09/26/24 09:22 09/26/24 05:46 Range/Units Activated Partial Thromboplast Time 22.2 #L 26.3-35.5 SEC Ammonia 27 11-32 umol/L Procalcitonin 24.31 H 0.05-0.5 ng/mL Blood Gas Specimen Type Arterial Arterial Blood pH 7.475 H 7.350-7.450 Arterial Blood Partial Pressure CO2 41 35-48 mmHg Arterial Blood Partial Pressure O2 63.4 L 83.0-108.0 mmHg Arterial Blood HCO3 29.5 H 21.0-28.0 mmol/L Arterial Blood Oxygen Saturation 93.6 L 94.0-98.0 % Arterial Blood Base Excess 5.4 H -2.0-3.0 mmol/L Blood Gas Temperature 37.0 35.5-37.0 CELSIUS Blood Gas Vent Mode CPAP 5, PS10 ROOM AIR FiO2 25.0 % Blood Gas Specimen Comment RR EKTA CULP Immature Granulocyte % (Auto) 11.3 H 0-1 % Neutrophils (%) (Auto) 79.5 H 40.0-77.0 % Lymphocytes (%) (Auto) 3.4 L 21.0-51.0 % Monocytes (%) (Auto) 5.5 3.0-13.0 % Eosinophils (%) (Auto) 0.0 0.0-8.0 % Basophils (%) (Auto) 0.3 0.0-5.0 % Neutrophils # (Auto) 19.2 H 1.8-7.7 K/uL Lymphocytes # (Auto) 0.8 L 1.0-4.8 K/uL Monocytes # (Auto) 1.3 H 0.1-1.0 K/uL Eosinophils # (Auto) 0.00 0.00-0.70 K/uL Basophils # (Auto) 0.08 0.00-0.20 K/uL Absolute Immature Granulocyte (auto 2.73 H 0-1 K/uL Prothrombin Time 14.7 H 9.6-11.6 SEC Prothromb Time International Ratio 1.35 H 0.85-1.15 Current Medications Medications (Trade) Dose Ordered Sig/Sierra Route PRN Reason Start Time Stop Time Status Last Admin Dose Admin Acetaminophen (TYLenol 325MG TAB) 650 mg Q4H PRN PO MILD PAIN (1-3) 09/21/24 19:30 10/21/24 19:29 09/26/24 03:09 650 MG Acetaminophen (TYLenol 325MG TAB) 650 mg Q6H PRN PO TEMPERATURE GREATER THAN 101.5 09/21/24 19:30 10/21/24 19:29 Albumin Human 100 ml @ 0 mls/hr AD STAT IV 09/25/24 23:09 09/25/24 23:12 DC 09/25/24 23:17 100 MLS/HR Albuterol (DUOneb) 1 udvial [id number] IH 09/21/24 22:00 09/25/24 09:59 DC 09/25/24 06:43 1 UDVIAL Albuterol (DUOneb) 1 udvial [id number] IH 09/25/24 10:00 09/26/24 15:22 DC 09/26/24 11:17 1 UDVIAL Albuterol (DUOneb) 1 udvial [id number] PRN IH WHEEZING 09/26/24 15:30 10/21/24 21:59 Aspirin (Aspirin 81mg Ec Tab) 81 mg DAILY PO 09/22/24 09:00 10/22/24 08:59 09/26/24 13:23 81 MG Atorvastatin Calcium (LIPItor 20MG) 20 mg HS PO 09/23/24 21:00 09/27/24 10:38 DC 09/26/24 20:36 20 MG Atorvastatin Calcium (LIPItor 40MG) 40 mg HS PO 09/22/24 21:00 09/22/24 20:17 DC Azithromycin 250 ml @ 250 mls/hr Q24H IVPB 09/21/24 18:00 09/21/24 18:14 DC Cefepime HCl (MAXipime 1 GM vial) 1 gm Q24H IVPB 09/23/24 08:30 09/26/24 11:14 DC 09/25/24 08:36 1 GM Chlordiazepoxide HCl (LIBrium 25 MG CAP) 25 mg Q2H PRN PO ALCOHOL WITHDRAWAL PROTOCOL 09/22/24 20:30 09/29/24 20:29 09/27/24 11:29 25 MG Chlordiazepoxide HCl (LIBrium 25 MG CAP) 50 mg Q1H PRN PO ALCOHOL WITHDRAWAL PROTOCOL 09/22/24 20:30 09/29/24 20:29 Clopidogrel Bisulfate (plaVIX 75MG) 75 mg DAILY PO 09/24/24 09:00 09/26/24 07:14 DC 09/25/24 08:38 75 MG Dextrose/Sodium Chloride 1,000 ml @ 0 mls/hr AD IV 09/22/24 00:00 09/23/24 21:23 DC 09/22/24 09:49 150 MLS/HR Doxycycline Hyclate (Doxycycline Hyclate) 100 mg BID PO 09/21/24 21:00 10/01/24 20:59 09/27/24 10:42 100 MG Famotidine (Pepcid 20mg Vial) 10 mg DAILY IV 09/22/24 09:00 09/27/24 10:35 DC 09/27/24 09:09 10 MG Famotidine (Pepcid 20mg Tab) 10 mg Q48H PO 09/21/24 19:30 09/21/24 20:00 DC Ferrous Sulfate (Ferrous Sulfate) 325 mg DAILY PO 09/23/24 09:00 10/23/24 08:59 09/27/24 10:42 325 MG Fish Oil (Fish Oil 1000 Mg/Cap) 2,000 mg BID PO 09/22/24 21:00 10/22/24 20:59 09/27/24 10:41 2,000 MG Fluconazole/ Sodium Chloride (DiFLUCan 200 MG/ NS 100 ML) 200 mg Q24H IV 09/25/24 16:00 09/27/24 10:36 DC 09/26/24 14:38 200 MG Furosemide (LASix 40MG VIAL) 80 mg Q12H IV 09/22/24 21:00 09/26/24 15:22 DC 09/26/24 13:20 80 MG Gabapentin (NEURontin 100 mg CAP) 100 mg TID PO 09/24/24 21:00 10/24/24 20:59 09/27/24 10:42 100 MG Guaifenesin/ Dextromethorphan (RobiTUSSin DM 200/20MG 10ML) 10 ml Q4H PRN PO COUGH 09/21/24 19:30 10/21/24 19:29 09/23/24 22:06 10 ML Heparin Sodium (Porcine) (HEParin 5,000 UNIT VIAL) *calculation based on ACTUAL B... AD PRN IV HEPARIN PROTOCOL 09/21/24 19:30 09/26/24 07:14 DC Heparin Sodium (Porcine) (HEParin 5,000 UNIT VIAL) 10,000 unit AD IRRIG 09/27/24 14:00 10/27/24 13:59 Heparin Sodium/ Dextrose 250 ml @ 0 mls/hr Q6H IV 09/21/24 19:30 09/26/24 18:36 DC 09/25/24 04:13 14.7 MLS/HR Insulin Glargine (LANtus 100 UNITS/ML 10 ML VIAL) 10 units BID@0730,2100 SQ 09/22/24 21:00 09/26/24 11:15 DC 09/25/24 20:44 10 UNITS Insulin Glargine (LANtus 100 UNITS/ML 10 ML VIAL) 15 units BID@0730,2100 SQ 09/26/24 21:00 10/26/24 20:59 09/27/24 10:49 15 UNITS Insulin Human Regular (humuLIN R 100 UNIT/ML 3ML) INSULIN SLIDING SCAL... ACHS SQ 09/24/24 07:30 10/24/24 07:29 09/27/24 12:06 4 UNIT Insulin Human Regular 100 unit/ Sodium Chloride 101 ml @ 0 mls/hr PROTOCOL IV 09/21/24 20:00 09/23/24 21:20 DC 09/21/24 21:01 9.8 MLS/HR Insulin Human Regular 100 unit/ Sodium Chloride 101 ml @ 0 mls/hr PROTOCOL IV 09/22/24 00:00 09/22/24 00:03 DC Insulin Human Regular 100 unit/ Sodium Chloride 101 ml @ 0 mls/hr PROTOCOL IV 09/26/24 18:30 09/27/24 10:25 DC 09/26/24 18:36 10 MLS/HR Magnesium Sulfate 50 ml @ 0 mls/hr PROTOCOL IV 09/22/24 00:00 09/23/24 21:23 DC Magnesium Sulfate 50 ml @ 0 mls/hr PROTOCOL IV 09/26/24 18:30 09/27/24 10:25 DC Magnesium Sulfate 50 ml @ 0 mls/hr PROTOCOL PRN IV OTH 09/22/24 00:00 09/22/24 00:04 DC 09/21/24 23:52 25 MLS/HR Mannitol 245 ml @ 0 mls/hr AD IV 09/22/24 00:30 09/22/24 20:17 DC Mannitol 500 ml @ 0 mls/hr AD IV 09/22/24 00:30 09/22/24 14:33 DC Mannitol (Osmitrol 20% 250ml Bag) 49 gm AD IV 09/22/24 00:00 09/22/24 00:28 DC Methylprednisolone Sodium Succinate (Solu-medROL 40MG) 40 mg BID IVP 09/22/24 09:00 09/27/24 10:35 DC 09/26/24 20:37 40 MG Metoprolol Succinate (TopROL XL) 25 mg BID PO 09/26/24 09:00 10/26/24 08:59 09/26/24 20:36 25 MG Metoprolol Succinate (TopROL XL) 50 mg BID PO 09/24/24 21:00 09/26/24 07:14 DC 09/24/24 19:45 50 MG Metoprolol Tartrate (loprESSOR) 12.5 mg BID PO 09/22/24 21:00 09/24/24 16:38 DC 09/24/24 12:07 12.5 MG Miscellaneous Medication (Folic Acid/ Vitamin B Comp W-C (I[place] Tablet)) 1 tab DAILY PO 09/23/24 09:00 09/22/24 15:56 DC Morphine Sulfate (morPHINE 2MG SYG) 2 mg Q4H PRN IVP SEVERE PAIN (7-10) 09/26/24 01:30 10/03/24 01:29 Multivitamins Therapeutic (Multivitamin Tablet) 1 tab DAILY PO 09/23/24 09:00 10/23/24 08:59 09/27/24 10:46 1 TAB Nifedipine (adALAT 30MG) 60 mg DAILY PO 09/23/24 09:00 10/23/24 08:59 Hold 09/25/24 08:37 60 MG Nitroglycerin (Nitroglycerin 1gm Oint) 0.5 inch Q8H TD 09/21/24 19:30 09/27/24 10:34 DC 09/25/24 12:44 0.5 INCH Norepinephrine 250 ml @ 0 mls/hr AD PRN IV DIRECTED 09/26/24 01:30 09/27/24 10:34 DC 09/26/24 01:40 0 MLS/HR Ondansetron HCl (zoFRAN 4MG INJ) 4 mg Q6H PRN IVP NAUSEA/VOMITING 09/26/24 01:30 10/26/24 01:29 09/27/24 08:51 4 MG Oseltamivir Phosphate (Tamiflu) 75 mg DAILY PO 09/22/24 09:00 09/23/24 13:29 DC 09/23/24 08:38 75 MG Oseltamivir Phosphate (Tamiflu) 75 mg Q24H PO 09/26/24 17:00 09/27/24 17:01 09/26/24 17:07 75 MG Oseltamivir Phosphate (Tamiflu) 75 mg QTUTHSA[DIALYSIS] PO 09/23/24 16:00 09/23/24 17:04 DC Oseltamivir Phosphate (Tamiflu) 75 mg QTUTHSA[DIALYSIS] PO 09/23/24 22:00 09/26/24 16:32 DC 09/25/24 16:09 75 MG Pantoprazole Sodium (PROTonix 40MG INJ) 40 mg BID IVP 09/27/24 21:00 10/27/24 20:59 Pharmacy Profile Note (Pharmacy Communication) 1 each ONCE MISC 09/23/24 13:00 09/23/24 13:25 DC Pharmacy Profile Note (Pharmacy Communication) 1 each ONCE MISC 09/23/24 21:30 09/24/24 07:08 DC Pharmacy Profile Note (Pharmacy Communication) 1 each PROTOCOL PRN MISC ETOH Withdrawal Score changes 09/22/24 20:30 09/29/24 20:29 Piperacillin Sod/ Tazobactam Sod 50 ml @ 12.5 mls/hr Q12H IV 09/21/24 21:00 09/23/24 08:06 DC 09/22/24 20:43 12.5 MLS/HR Piperacillin Sod/ Tazobactam Sod (Zosyn 3.375gm+NS 50ml) 3.375 gm Q12H IV 09/26/24 11:30 10/06/24 11:29 09/27/24 10:43 3.375 GM Potassium Chloride 20 meq/ Sodium Chloride 1,010 ml @ 0 mls/hr PROTOCOL IV 09/22/24 00:00 09/23/24 21:23 DC Potassium Chloride/Dextrose/ Sod Cl 1,000 ml @ 0 mls/hr AD IV 09/22/24 00:00 09/23/24 21:23 DC Sodium Bicarbonate (Sodium Bicarbonate) 650 mg TID PO 09/24/24 09:00 09/27/24 10:34 DC 09/26/24 20:36 650 MG Sodium Chloride 250 ml @ 0 mls/hr Q0M IV 09/25/24 23:00 09/27/24 10:34 DC Sodium Chloride 1,000 ml @ 0 mls/hr ONCE IV 09/23/24 19:30 09/27/24 13:51 DC 09/26/24 12:15 1,000 MLS/HR Sodium Chloride 1,000 ml @ 0 mls/hr ONCE IV 09/27/24 14:30 09/27/24 13:51 DC Sodium Chloride 1,000 ml @ 0 mls/hr ONCE IV 09/27/24 15:00 10/27/24 14:59 09/27/24 15:11 333 MLS/HR Sodium Chloride 1,000 ml @ 100 mls/hr Q10H IV 09/21/24 19:30 09/27/24 10:34 DC 09/23/24 12:53 100 MLS/HR Sodium Chloride 1,000 ml @ 200 mls/hr PROTOCOL IV 09/22/24 00:00 09/23/24 21:23 DC Thiamine HCl 100 mg/Folic Acid 1 mg/Multivitamins/ Minerals 10 ml/ Sodium Chloride 1,011.2 ml @ 100 mls/ hr Q24H IV 09/22/24 20:30 09/25/24 06:37 DC 09/22/24 20:43 100 MLS/HR Vancomycin HCl 250 ml @ 125 mls/hr Q72H IV 09/22/24 20:30 09/23/24 08:04 DC 09/22/24 20:48 125 MLS/HR Vancomycin HCl (Vancomycin 500mg+NS 100ml Ivpb) 1,000 mg DAILY08 IV 09/23/24 08:00 09/22/24 20:26 DC Vancomycin HCl (Vancomycin 750mg) 750 mg MWFPHD IVPB 09/26/24 16:00 10/03/24 23:29 Hold Vancomycin HCl (Vancomycin 750mg) 750 mg Q24H IVPB 09/23/24 23:30 09/25/24 06:26 DC 09/24/24 22:43 750 MG Vitamin B Complex/ Vit C/Folic Acid (Nephrovite Tablet) 1 cap DAILY PO 09/23/24 09:00 10/23/24 08:59 09/27/24 10:46 1 CAP DIAGNOSTICS / RADIOLOGY: [ ] ASSESSMENT: Hyperosmolar Hyperglycemic Syndrome POA NSTEMI POA Influenza bronchopneumonia with sepsis POA Acute Hypoxemic Respiratory Failure POA Acute on chronic renal failure with concern for ATN POA Metabolic acidosis POA Lactic acidosis POA CKD stage 4 POA Uncontrolled Diabetes POA Protein Calorie malnutrition POA PLAN: Continue diflucan and zosyn Hemodialysis today CT cardio angio to assess coronary anatomy on renal diabetic diet We will start NS @ 100 ml / hr and re evaluate Continue Heparin drip per ACs protocol started by ER Patient on Doxycycline po and Zosyn renally dose We will continue Tamiflu 75mg po daily Continue Aspirin 81 mg po daily and metoprolol 12.5 mg b.i.d. Start atorvastatin 20 mg at night 300 mg of Plavix x1 then75 mg daily as per cardiology We will start on Famotidine 20 mg IV daily for GI prophylaxis Home medication reconciled Follow up Cardiology, critical Care, Nephrology recommendations We will request labs in am Further orders to follow depending on above results ATTESTATION BY PHYSICIAN I have seen and examined the patient. I reviewed the documentation, medical decision making, and treatment plan as noted by the mid-level provider above. I agree with the findings and plan of care. SHANNAN BALTAZAR MD, [facility] Sep 27, 2024 15:34
[2024-09-27] MEDS: HEParin 5,000 UNIT VIAL IRRIG SCH (17:18)
--- NOTE | 2024-09-27 18:50 | NUR ---
transfer pt transfer to room 431 via bed family member at bedside gave report to Shahrzad DASH
--- NOTE | 2024-09-27 20:16 | CONS ---
SUBJECTIVE: A 49-year-old gentleman with renal failure, new to hemodialysis, referred for hemodialysis access port. I had the opportunity to review the films including the ultrasound ____ and discussed with the patient indications for surgery as well as the potential complications of the operation including but not limited to postoperative bleeding, infection, stroke and/or , as well as the associated morbidity and mortality of the procedure including steal syndrome and loss of digits. He understands and would like to proceed with brachiocephalic AV fistula. TID: [id number] RECEIPT: [id number]
--- NOTE | 2024-09-27 20:50 | PN ---
DIALYSIS NOTE SUBJECTIVE: The patient is seen and evaluated on hemodialysis, prescription noted. OBJECTIVE: VITAL SIGNS: Blood pressure 105/71. CARDIOVASCULAR: Regular. LUNGS: Coarse. IMPRESSION: End-stage renal disease. PLAN: The patient will continue with maximal ultrafiltration as blood pressure allows. The patient is also receiving erythropoietin injections for the anemia. TID: [id number] RECEIPT: [id number]
[2024-09-27] MEDS: PANTOPrazole 40 MG/VIAL IVP SCH (21:36)
[2024-09-27 23:05] LABS: HEMATOCRIT 26.1 % (42-54); MEAN CORPUSCULAR HEMOGLOBIN 29.4 pg (27.0-33.0); MEAN CORPUSCULAR HGB CONC 34.5 g/dL (32.0-36.0); MEAN CORPUSCULAR VOLUME 85.3 fL (79-99); RED BLOOD CELL COUNT(AUTO) 3.06 MIL/uL (4.50-6.20); RED CELL DISTRIBUTION WIDTH 12.9 % (11.0-15.5); WHITE BLOOD COUNT (AUTO) 22.4 K/uL (4.8-10.8)
[2024-09-28] VITALS (11 sets, daily range): BP systolic 95–131; BP diastolic 58–74; PULSE 70–76; RESP 16–18; TEMP 97.7–98; O2SAT 93–96
[2024-09-28 03:49] LABS: BASOPHILS # (AUTO) 0.05 K/uL (0.00-0.20); BASOPHILS % (AUTO) 0.2 % (0.0-5.0); IMMATURE GRANULOCYTE ABSOLUTE 1.94 K/uL (0-1); LYMPHOCYTES # (AUTO) 0.4 K/uL (1.0-4.8); LYMPHOCYTES % (AUTO) 1.7 % (21.0-51.0); MEAN CORPUSCULAR HEMOGLOBIN 29.3 pg (27.0-33.0); MEAN CORPUSCULAR HGB CONC 33.8 g/dL (32.0-36.0); MEAN CORPUSCULAR VOLUME 86.7 fL (79-99); MONOCYTES # (AUTO) 1.1 K/uL (0.1-1.0); MONOCYTES % (AUTO) 5.1 % (3.0-13.0); NEUTROPHILS # (AUTO) 18.5 K/uL (1.8-7.7); NEUTROPHILS % (AUTO) 84.2 % (40.0-77.0); PLATELET COUNT (AUTO) 220 K/uL (130-400)
[2024-09-28 04:34] LABS: ALBUMIN 2.3 g/dL (3.5-5.0); BILIRUBIN,TOTAL 0.6 mg/dL (0.2-1.0); TOTAL PROTEIN, SERUM 5.1 g/dL (6.0-8.3)
[2024-09-28 05:52] LABS: CREATININE 8.4 mg/dL (0.5-1.3)
[2024-09-28] MEDS: predniSONE 20 MG TABLET PO SCH (09:11)
--- NOTE | 2024-09-28 09:26 | PN ---
[facility] CARDIOLOGY PROGRESS NOTE Date Patient Seen: Sep 28, 2024 Time of Visit: 09:24 Problem List: NSTEMI Volume overload 2/2 progression of ESRD Influenza A, Tamiflu started on 09/22/2024 Bilateral pneumonia HHS and DKA, on Insulin gtt HTN HLD DM type II 2D echo on 04/06/2024 demonstrated an EF of 45-50% Lexiscan stress test on 04/07/2024 demonstrated a fixed basal mid inferolateral and basal inferior defect with no reversible ischemia Interval History: [No acute events overnight. Patient has remained afebrile and hemodynamically stable transferred out of the ICU[place] [id number] and is on IV antibiotics. He is pending HD tomorrow morning and if his heart rate remains controlled we will plan for coronary CTA to assess his coronary anatomy. Patient's blood pressure stable in the 120s to 130s and there have been no telemetry events noted ] Physical Examination: GENERAL: No acute distress. HEAD: Normal with no signs of head trauma. EYES: PERRLA, EOMI, conjunctiva and sclera normal. ENT: Hearing grossly intact, normal oropharynx. NECK: Supple without JVD. There is no tenderness, lymphadenopathy, or masses. No thyromegaly. Normal carotid upstrokes without bruits. LUNGS: Crackles to bases bilaterally. HEART: Tachycardic rate and normal rhythm. Normal S1 and S2 without murmurs, gallop or rub. VASC: BLE 2+ pitting edema ABD: Bowel sounds normal, soft, nontender, no masses, no organomegaly. No audible bruits. : Not examined LYMPH: No lymphadenopathy noted. EXT: No clubbing, cyanosis 2+ bilateral lower extremity pitting edema SKIN: No rashes or lesions noted. NEURO: Awake, alert, and oriented x3. No focal sensory or strength deficits noted. Laboratory: [ ] Hematology Labs: Test 09/28/24 03:24 09/27/24 04:02 Range/Units White Blood Count 22.0 H 4.8-10.8 K/uL Red Blood Count 3.00 L 4.50-6.20 MIL/uL Hemoglobin 8.8 L 14.0-18.0 g/dL Hematocrit 26.0 L 42-54 % Mean Corpuscular Volume 86.7 79-99 fL Mean Corpuscular Hemoglobin 29.3 27.0-33.0 pg Mean Corpuscular Hemoglobin Concent 33.8 32.0-36.0 g/dL Red Cell Distribution Width 13.0 11.0-15.5 % Platelet Count 220 130-400 K/uL Mean Platelet Volume 11.6 H 7.5-10.5 fL Immature Granulocyte % (Auto) 8.8 H 0-1 % Neutrophils (%) (Auto) 84.2 H 40.0-77.0 % Lymphocytes (%) (Auto) 1.7 L 21.0-51.0 % Monocytes (%) (Auto) 5.1 3.0-13.0 % Eosinophils (%) (Auto) 0.0 0.0-8.0 % Basophils (%) (Auto) 0.2 0.0-5.0 % Neutrophils # (Auto) 18.5 H 1.8-7.7 K/uL Lymphocytes # (Auto) 0.4 L 1.0-4.8 K/uL Monocytes # (Auto) 1.1 H 0.1-1.0 K/uL Eosinophils # (Auto) 0.00 0.00-0.70 K/uL Basophils # (Auto) 0.05 0.00-0.20 K/uL Absolute Immature Granulocyte (auto 1.94 H 0-1 K/uL Nucleated Red Blood Cells 3.0 H 0.0-0.19 % Segmented Neutrophils % 90 H 40-70 % Band Neutrophils % 4 H 0-2 % Lymphocytes % (Manual) 5 L 22-44 % Metamyelocytes % 1 H 0-0 % Differential Comment MANUAL DIFFERENTIAL White Cell Morphology Comment IMMATURE GRAN 1+ Platelet Morphology Comment See comments Red Blood Cell Morphology See comments Chemistry Labs: Test 09/28/24 05:28 09/28/24 03:24 09/27/24 04:02 09/26/24 10:48 Range/Units Whole Blood Glucose 296 H 70-110 MG/DL Sodium Level 132 L 136-145 mmol/L Potassium Level 5.0 3.5-5.1 mmol/L Chloride Level 92 L 101-111 mmol/L Carbon Dioxide Level 24 21-32 mmol/L Blood Urea Nitrogen 104 *H 7-18 mg/dL Creatinine 8.4 *H 0.5-1.3 mg/dL Glomerular Filtration Rate Calc 7 >90 mL/min Random Glucose 284 #H 70-105 mg/dL Total Calcium 5.9 *L 8.5-10.1 mg/dL Total Bilirubin 0.6 0.2-1.0 mg/dL Aspartate Amino Transf (AST/SGOT) 1201 *H 10-37 U/L Alanine Aminotransferase (ALT/SGPT) 3508 #*H 12-78 U/L Alkaline Phosphatase 220 H 50-136 U/L Total Protein 5.1 L 6.0-8.3 g/dL Albumin 2.3 L 3.5-5.0 g/dL Procalcitonin 17.06 H 0.05-0.5 ng/mL Whole Blood Ketones Quantitative 0.2 0.0-0.6 mmol/L Phosphorus Level 10.9 H 2.5-4.9 mg/dL Magnesium Level 2.10 1.80-2.40 mg/dL Ammonia 27 11-32 umol/L Coagulation Labs: Test 09/26/24 12:30 Range/Units Activated Partial Thromboplast Time 22.2 #L 26.3-35.5 SEC Diagnostics / Radiology: [Copy/Paste Echos/Imaging Report here] Impression and Plan: NSTEMI Volume overload 2/2 progression of ESRD Influenza A, Tamiflu started on 09/22/2024 Bilateral pneumonia HHS and DKA, on Insulin gtt HTN HLD DM type II 2D echo on 04/06/2024 demonstrated an EF of 45-50% Lexiscan stress test on 04/07/2024 demonstrated a fixed basal mid inferolateral and basal inferior defect with no reversible ischemia NSTEMI Troponin of 5531, 5716, 8278, and 6392 EKG demonstrated sinus tachycardia with a heart rate of 121 beats per minute, LAE, and diffuse ischemia On heparin drip per ACS protocol, started. Patient has completed more than 48 hours of IV heparin and has been since discontinued -patient require a total of 12 months of dap (aspirin 81 mg daily/Plavix 75 mg daily) in addition to Lipitor 40 mg q.h.s. -TTE showed severely hypokinetic inferior wall, EF 35-40 %, prior Lexiscan stress test shows fixed defects in the inferior wall . -patient is currently flu positive, has sepsis, and is significantly volume overloaded unable to lie flat -volume reduction via HD as patient is oliguric. Pending further stabilization and treatment of sepsis/flu we will proceed with coronary CTA, hopefully tomorrow morning -pending coronary CTA results we will determine the need to proceed for the coronary angiogram during this admission -he currently denies any anginal symptoms or equivalents. Please keep on telemetry and monitor/replace electrolytes as needed #Acute on chronic HFrEF: Presumed to be ischemic cardiomyopathy, LVEF 35-40% with inferior wall hypokinesis. NYHA III, volume overloaded, stage C Prior Lexiscan stress test with fixed inferior defect suggestive of scar Given his volume overload state and NSTEMI we will plan for coronary CTA pending euvolemia and management of his underlying sepsis Given his soft systolic blood pressures electrolyte derangements we will defer optimization of GDM T Continue Toprol-XL 25 mg b.i.d.. Strict I's and O's and daily weights. Volume reduction via HD, pending for HD tomorrow Nephrology is following, recommendations appreciated Thank you for this consult cardiology will continue to follow along,. formal recommendations pending CCTA results ARIELA CHOI MD Sep 28, 2024 09:26
--- NOTE | 2024-09-28 10:52 | PN ---
[facility] PROGRESS NOTE Date of Service: Sep 28, 2024 Time of Service: 10:48 SUBJECTIVE: This is a 49-year-old male with past medical history of CKD not on hemodialysis, diabetes, hypertension, hyperlipidemia and obesity who presents to the ED for complaints of cough and chest congestion which started last Sunday and getting worse on Sunday. Patient reports coughing up pinkish colored thick phlegm, loss of appetite and on Sunday started not eating unable to sleep, vomiting and having chest pain triggered by persistent coughing he said.Patient reports having soreness due to hard cough he said.Patient reports having sweeling on both lower extremities and started having shortness of breath and today he started having non bloody diarrhea. Neela was at bedside during my evaluation. Upon arrival to ER a STEMI alert was activated per ER MD and spoke to Data Technician messenger floorperson and as per report patient is possibly going to cathlab tomorrow and patient is going to be started on Heparin and Insulin drip. Seen and examined patient in the Er awake,alert and coherent,appears weak looking.Patient denies fever,palpitation ,dizziness ,sore throat and headache. Latest vital signs temperature 98.1, heart rate 108, respiration 30 blood pressure 130/68 saturation 91% on 4 L nasal cannula. Labs: WBC 11.2, hemoglobin 9, hematocrit 27, platelet count 238, neutrophils 88. PH 7.32, CO2 26, PO2 49.6, bicarb 13, PO2 80 base excess -11.3. Sodium 129, potassium 5.9, chloride 93, CO2 19, BUN 88, creatinine 8.2, GFR seven glucose 876 , lactic acid 3.0-3.2, troponin 5531 albumin 2.1. Influenza A positive influenza B negative SARs COVID negative. Strep A negative. Chest x-ray result revealed extensive bilateral mid to lower lung pneumonia right greater than left. First ECG result revealed sinus tachycardia heart rate 121 probable left atrial enlargement repolarization abnormal suggest ischemia diffuse leads ST-elevation consider anterior injury. Second EKG result revealed sinus tachycardia repolarization abnormality suggest ischemia diffuse leads borderline ST elevation anterior leads heart rate 108. While in the ER patient received Tamiflu 75 mg p.o., 1 L NS bolus, Lopressor 5 mg IV, insulin 10 units IV, Zosyn IV, Zofran 4 mg IV and Phenergan codeine 10 mL p.o. we will admit patient in ICU for further medical management. 09/22/24 patient was seen and examined in ED bed 13. Today his vitals are 145/84, respiratory rate 22, SpO2 99% on 7 L nasal cannula, pulse rate 110. He complaints of cough with sputum, but says it is getting better than yesterday, denies shortness of breath or chest pain or dizziness. Nephrology was consulted and recommended to start Lasix 80 mg IV b.i.d and to start renal diabetic diet. He is currently on zosyn , doxycycline and Tamiflu. He is on IV insulin drip and glucose has come down from 8 0s to 400s. Pending Cardiology recommendations. He requires sleep study once he is discharged. 09/23/24 Patient was seen and examined in ED bed 13. Today his vitals are BP 132/78, MN 105, SpO2 96% on 4 L nasal cannula. Patient says his cough is getting better, no chest pain but complains of mild left lower abdominal pain and bloating, no bowel movement since yesterday morning. His renal function continues to decline , his creatinine is up from 8.1 to 8.4. Nephrology recommended PermCath to be placed by IR for hemodialysis. Cardiology recommended to continue aspirin 81 mg daily and metoprolol tartrate 12.5 mg and possible angiogram to assess coronary anatomy as his EKG showed sinus tachycardia, LAE and diffuse ischemia. Pending 2D echo results. 09/24/24 Patient was seen and examined in room 430. His vitals are blood pressure 129/73, pulse rate 109, respiratory rate 20, T-max 98.1, SpO2 94% on5 L nasal cannula. Patient complains of mild weakness when he moves from chair to the bed, otherwise has no complaints. Says he soiled the bed earlier this morning he was trying to get up to go to the restroom. Mitesh catheter was placed yesterday and 1L fluid was removed. Insulin drip was stopped last night currently his glucoses over 500. Remarkable labs are sodium 132, BUN 90, creatinine 7.7, calcium 7.2, phosphorus 7.5, hemoglobin dropped from 8.3-6.8 and hematocrit from 24.4-20.4, will transfuse one unit RBC. His respiratory cultures came back positive for Dunia albicans, we will start him on diflucan. MRSA DNA nasal swab was negative. 2D echo showed mildly dilated left atrium, dilated right atrium and ventricle, moderate concentric hypertrophy of left ventricle, severely hypokinetic inferior wall and LVEF 35-40% with mild aortic stenosis, trace aortic regurgitation, trace mitral regurgitation, trace pericardial effusion. Cardiology recommended CT cardio angio with contrast once the patient is euvolemic. His hepatitis-C and HIV panel came back nonreactive, positive hepatitis-B surface antibody. CT abdomen and pelvis acute appearing infiltrates in both lung bases consistent with pneumonia but no acute finding in the abdomen or pelvis. 09/25/24 Patient was seen and examined at bedside. He is hemodynamically stable, has no complaints. He denies chest pain or shortness of breath or dizziness or palpitations or abdominal pain, he complains of shortness of breath with minimal exertion, his hemoglobin improved to 8.3 He is still pending a coronary an giography. Was started on metoprolol by cardiology. Will follow nephrology recommendations on dialysis. Yesterday 1.2 L was ultrafiltered. Continue diflucan. Plan is to consult cardiovascular surgeon for AV access for outpatient hemodialysis. 09/26/24 Patient was lying comfortably in bed with at his bedside, currently undergoing hemodialysis. He was shifted to ICU last night because his systolic blood pressure dropped to 80s and 90s and was started on norepinephrine drip. He has acute liver injury, his labs are AST 6752, ALT 4300, ALP 233, probable causes include ischemic injury [place] [address], hemoglobin improved to 8.6. Plan is to do CT coronary angiography to assess coronary anatomy if stabilized. Currently, his blood pressure is holding up in 120s and heart rate in 70s. 09/27/24. Patient is awake, alert and oriented, has no complaints of chest pain, shortness of breath, fever, chills, nausea or vomiting. Family members present at bedside. Patient has shown significant improvement in his DKA status and infection markers, with WBC and liver function trending downward. Insulin drip will be stopped. Patient continues on Zosyn and Doxycycline.Lab work up showed creatinine increasing from 8.2 to 8.5 and BUN from 97 to 99, patient will remain in HD under nephrology's guidance. Cardiology monitoring troponin level closely, which initially increased to 8278 but are now trending down to 1150. CTA is scheduled for Sunday. We will continue to monitor all markers closely. 09/28 patient is seen and examined, no acute events overnight, downgraded from the ICU to the medical floor, remains hemodynamically stable, comfortable in bed, alert oriented x3, following commands. BP 114/74, rest of vital signs unremarkable. Liver enzymes trending down. Patient to continue broad-spectrum IV antibiotics. CTA scheduled for Sunday per Cardiology recommendation, patient evaluated by Cardiothoracic surgeon for hemodialysis access. REVIEW OF SYSTEMS CONSTITUTIONAL: Denies fevers, chills, or night sweats. No unintentional weight loss reported. NEUROLOGICAL: Denies headache, amaurosis fugax, motor weakness, sensory deficit, vertigo/spinning sensation, gait abnormalities, or tremors. ENT: No hearing loss, otalgia, otorrhea, rhinitis, rhinorrhea, hoarseness, or sore throat. CARDIOVASCULAR: Complaints of orthopnea shortness of breaths and chest pain Denies paroxysmal nocturnal dyspnea, palpitations, life-threatening arrhythmias, claudication. PULMONARY: Complaints of productive cough , pleuritic chest pain and shortness of breaths SLEEP: Complains of unable to sleep Denies morning headaches, daytime somnolenc e or napping. Denies waking from sleep. Denies knowledge of snoring. GASTROINTESTINAL: Complaints of loss of appetite, vomiting and diarrhea Denies any type of dysphagia to either liquids or solids. Denies nausea, vomiting, pyrosis, early satiety, abdominal pain, diarrhea, constipation, or changes in stool consistency or caliber. Denies coffee-ground emesis, hematemesis, hematochezia, or melanotic stools. GENITOURINARY: Denies frequency, urgency, nocturia, hematuria or incontinence (Storage/Irritative symptoms.) Low urinary stream, straining to void, urinary intermittency or hesitancy, splitting of the voiding stream, terminal dribbling. ENDOCRINOLOGIC: Denies polyuria, polydipsia, polyphagia or heat/cold intolerances. Patient reports not taking medications for diabetes because he was not eating. HEMATOLOGIC: Denies thrombophilia/previous clots, or coagulopathy/bleeding disorders. ONCOLOGIC: Denies personal history of malignancy. DERMATOLOGIC: Denies rashes or pruritus. PSYCHIATRIC: Denies any suicidal or homicidal ideation. Denies hallucinations. PHYSICAL EXAM GENERAL APPEARANCE: The patient is awake, alert, and oriented appears generally weak NEUROLOGICAL: Cranial nerves II-XII grossly intact. Motor is 5/5 in bilateral upper and lower extremities proximal to distal. No sensory deficits. HEENT: Face is symmetric. Pupils are equal and reactive. Extraocular movements are intact. NECK: Supple. No JVD. No thyromegaly. No submental, submandibular, pre- /postauricular, occipital or supraclavicular lymphadenopathy. CHEST: Normal chest expansion. No Telemetry. LUNGS: . Diminished lung sounds to bilateral lung james CARDIOVASCULAR: Tachycardic Regular. S1 and S2 normal. No appreciable rubs, murmurs or gallops. ABDOMEN: Round and firmed There is no rebound, voluntary guarding, or rigidity. : Deferred. No Del Cid. EXTREMITIES: Bilateral lower extremity edema No clubbing. Good capillary refill. SKIN: No skin breakdown. Vital Signs (last 8hr) Date Time Temp Pulse Resp B/P (MAP) Pulse Ox O2 Delivery O2 Flow Rate FiO2 09/28/24 08:05 97.9 70 18 114/74 95 Room Air 09/28/24 04:00 98.1 76 16 113/63 90 Room Air LABS: Laboratory: Test 09/28/24 10:19 09/28/24 05:28 09/28/24 03:24 09/27/24 04:02 Range/Units Ammonia 21 11-32 umol/L Whole Blood Glucose 296 H 70-110 MG/DL White Blood Count 22.0 H 4.8-10.8 K/uL Red Blood Count 3.00 L 4.50-6.20 MIL/uL Hemoglobin 8.8 L 14.0-18.0 g/dL Hematocrit 26.0 L 42-54 % Mean Corpuscular Volume 86.7 79-99 fL Mean Corpuscular Hemoglobin 29.3 27.0-33.0 pg Mean Corpuscular Hemoglobin Concent 33.8 32.0-36.0 g/dL Red Cell Distribution Width 13.0 11.0-15.5 % Platelet Count 220 130-400 K/uL Mean Platelet Volume 11.6 H 7.5-10.5 fL Immature Granulocyte % (Auto) 8.8 H 0-1 % Neutrophils (%) (Auto) 84.2 H 40.0-77.0 % Lymphocytes (%) (Auto) 1.7 L 21.0-51.0 % Monocytes (%) (Auto) 5.1 3.0-13.0 % Eosinophils (%) (Auto) 0.0 0.0-8.0 % Basophils (%) (Auto) 0.2 0.0-5.0 % Neutrophils # (Auto) 18.5 H 1.8-7.7 K/uL Lymphocytes # (Auto) 0.4 L 1.0-4.8 K/uL Monocytes # (Auto) 1.1 H 0.1-1.0 K/uL Eosinophils # (Auto) 0.00 0.00-0.70 K/uL Basophils # (Auto) 0.05 0.00-0.20 K/uL Absolute Immature Granulocyte (auto 1.94 H 0-1 K/uL Nucleated Red Blood Cells 3.0 H 0.0-0.19 % Sodium Level 132 L 136-145 mmol/L Potassium Level 5.0 3.5-5.1 mmol/L Chloride Level 92 L 101-111 mmol/L Carbon Dioxide Level 24 21-32 mmol/L Blood Urea Nitrogen 104 *H 7-18 mg/dL Creatinine 8.4 *H 0.5-1.3 mg/dL Glomerular Filtration Rate Calc 7 >90 mL/min Random Glucose 284 #H 70-105 mg/dL Total Calcium 5.9 *L 8.5-10.1 mg/dL Total Bilirubin 0.6 0.2-1.0 mg/dL Aspartate Amino Transf (AST/SGOT) 1201 *H 10-37 U/L Alanine Aminotransferase (ALT/SGPT) 3508 #*H 12-78 U/L Alkaline Phosphatase 220 H 50-136 U/L Total Protein 5.1 L 6.0-8.3 g/dL Albumin 2.3 L 3.5-5.0 g/dL Procalcitonin 17.06 H 0.05-0.5 ng/mL Segmented Neutrophils % 90 H 40-70 % Band Neutrophils % 4 H 0-2 % Lymphocytes % (Manual) 5 L 22-44 % Metamyelocytes % 1 H 0-0 % Differential Comment MANUAL DIFFERENTIAL White Cell Morphology Comment IMMATURE GRAN 1+ Platelet Morphology Comment See comments Red Blood Cell Morphology See comments Whole Blood Ketones Quantitative 0.2 0.0-0.6 mmol/L Phosphorus Level 10.9 H 2.5-4.9 mg/dL Magnesium Level 2.10 1.80-2.40 mg/dL Test 09/26/24 15:15 09/26/24 13:10 09/26/24 12:30 Range/Units Vancomycin Level Trough 17.1 # 10.0-20.0 UG/ML SARS-CoV-2 Antigen (Rapid) PRESUMPTIVE NEGATIVE NEGATIVE Activated Partial Thromboplast Time 22.2 #L 26.3-35.5 SEC Current Medications Medications (Trade) Dose Ordered Sig/Sierra Route PRN Reason Start Time Stop Time Status Last Admin Dose Admin Acetaminophen (TYLenol 325MG TAB) 650 mg Q4H PRN PO MILD PAIN (1-3) 09/21/24 19:30 10/21/24 19:29 09/26/24 03:09 650 MG Acetaminophen (TYLenol 325MG TAB) 650 mg Q6H PRN PO TEMPERATURE GREATER THAN 101.5 09/21/24 19:30 10/21/24 19:29 Albumin Human 100 ml @ 0 mls/hr AD STAT IV 09/25/24 23:09 09/25/24 23:12 DC 09/25/24 23:17 100 MLS/HR Albuterol (DUOneb) 1 udvial [id number] IH 09/21/24 22:00 09/25/24 09:59 DC 09/25/24 06:43 1 UDVIAL Albuterol (DUOneb) 1 udvial [id number] IH 09/25/24 10:00 09/26/24 15:22 DC 09/26/24 11:17 1 UDVIAL Albuterol (DUOneb) 1 udvial [id number] PRN IH [facility] 09/26/24 15:30 10/21/24 21:59 Aspirin (Aspirin 81mg Ec Tab) 81 mg DAILY PO 09/22/24 09:00 10/22/24 08:59 09/28/24 09:11 81 MG Atorvastatin Calcium (LIPItor 20MG) 20 mg HS PO 09/23/24 21:00 09/27/24 10:38 DC 09/26/24 20:36 20 MG Atorvastatin Calcium (LIPItor 40MG) 40 mg HS PO 09/22/24 21:00 09/22/24 20:17 DC Azithromycin 250 ml @ 250 mls/hr Q24H IVPB 09/21/24 18:00 09/21/24 18:14 DC Cefepime HCl (MAXipime 1 GM vial) 1 gm Q24H IVPB 09/23/24 08:30 09/26/24 11:14 DC 09/25/24 08:36 1 GM Chlordiazepoxide HCl (LIBrium 25 MG CAP) 25 mg Q2H PRN PO ALCOHOL WITHDRAWAL PROTOCOL 09/22/24 20:30 09/29/24 20:29 09/27/24 11:29 25 MG Chlordiazepoxide HCl (LIBrium 25 MG CAP) 50 mg Q1H PRN PO ALCOHOL WITHDRAWAL PROTOCOL 09/22/24 20:30 09/29/24 20:29 Clopidogrel Bisulfate (plaVIX 75MG) 75 mg DAILY PO 09/24/24 09:00 09/26/24 07:14 DC 09/25/24 08:38 75 MG Dextrose/Sodium Chloride 1,000 ml @ 0 mls/hr AD IV 09/22/24 00:00 09/23/24 21:23 DC 09/22/24 09:49 150 MLS/HR Doxycycline Hyclate (Doxycycline Hyclate) 100 mg BID PO 09/21/24 21:00 10/01/24 20:59 09/28/24 09:11 100 MG Famotidine (Pepcid 20mg Vial) 10 mg DAILY IV 09/22/24 09:00 09/27/24 10:35 DC 09/27/24 09:09 10 MG Famotidine (Pepcid 20mg Tab) 10 mg Q48H PO 09/21/24 19:30 09/21/24 20:00 DC Ferrous Sulfate (Ferrous Sulfate) 325 mg DAILY PO 09/23/24 09:00 10/23/24 08:59 09/28/24 09:11 325 MG Fish Oil (Fish Oil 1000 Mg/Cap) 2,000 mg BID PO 09/22/24 21:00 10/22/24 20:59 09/28/24 09:11 2,000 MG Fluconazole/ Sodium Chloride (DiFLUCan 200 MG/ NS 100 ML) 200 mg Q24H IV 09/25/24 16:00 09/27/24 10:36 DC 09/26/24 14:38 200 MG Furosemide (LASix 40MG VIAL) 80 mg Q12H IV 09/22/24 21:00 09/26/24 15:22 DC 09/26/24 13:20 80 MG Gabapentin (NEURontin 100 mg CAP) 100 mg TID PO 09/24/24 21:00 10/24/24 20:59 09/28/24 09:11 100 MG Guaifenesin/ Dextromethorphan (RobiTUSSin DM 200/20MG 10ML) 10 ml Q4H PRN PO COUGH 09/21/24 19:30 10/21/24 19:29 09/23/24 22:06 10 ML Heparin Sodium (Porcine) (HEParin 5,000 UNIT VIAL) *calculation based on ACTUAL B... AD PRN IV HEPARIN PROTOCOL 09/21/24 19:30 09/26/24 07:14 DC Heparin Sodium (Porcine) (HEParin 5,000 UNIT VIAL) 10,000 unit AD IRRIG 09/27/24 14:00 10/27/24 13:59 09/27/24 17:18 10,000 UNIT Heparin Sodium/ Dextrose 250 ml @ 0 mls/hr Q6H IV 09/21/24 19:30 09/26/24 18:36 DC 09/25/24 04:13 14.7 MLS/HR Insulin Glargine (LANtus 100 UNITS/ML 10 ML VIAL) 10 units BID@0730,2100 SQ 09/22/24 21:00 09/26/24 11:15 DC 09/25/24 20:44 10 UNITS Insulin Glargine (LANtus 100 UNITS/ML 10 ML VIAL) 15 units BID@0730,2100 SQ 09/26/24 21:00 10/26/24 20:59 09/28/24 06:51 15 UNITS Insulin Human Regular (humuLIN R 100 UNIT/ML 3ML) INSULIN SLIDING SCAL... ACHS SQ 09/24/24 07:30 10/24/24 07:29 09/28/24 06:47 14 UNIT Insulin Human Regular 100 unit/ Sodium Chloride 101 ml @ 0 mls/hr PROTOCOL IV 09/21/24 20:00 09/23/24 21:20 DC 09/21/24 21:01 9.8 MLS/HR Insulin Human Regular 100 unit/ Sodium Chloride 101 ml @ 0 mls/hr PROTOCOL IV 09/22/24 00:00 09/22/24 00:03 DC Insulin Human Regular 100 unit/ Sodium Chloride 101 ml @ 0 mls/hr PROTOCOL IV 09/26/24 18:30 09/27/24 10:25 DC 09/26/24 18:36 10 MLS/HR Magnesium Sulfate 50 ml @ 0 mls/hr PROTOCOL IV 09/22/24 00:00 09/23/24 21:23 DC Magnesium Sulfate 50 ml @ 0 mls/hr PROTOCOL IV 09/26/24 18:30 09/27/24 10:25 DC Magnesium Sulfate 50 ml @ 0 mls/hr PROTOCOL PRN IV OTH 09/22/24 00:00 09/22/24 00:04 DC 09/21/24 23:52 25 MLS/HR Mannitol 245 ml @ 0 mls/hr AD IV 09/22/24 00:30 09/22/24 20:17 DC Mannitol 500 ml @ 0 mls/hr AD IV 09/22/24 00:30 09/22/24 14:33 DC Mannitol (Osmitrol 20% 250ml Bag) 49 gm AD IV 09/22/24 00:00 09/22/24 00:28 DC Methylprednisolone Sodium Succinate (Solu-medROL 40MG) 40 mg BID IVP 09/22/24 09:00 09/27/24 10:35 DC 09/26/24 20:37 40 MG Metoprolol Succinate (TopROL XL) 25 mg BID PO 09/26/24 09:00 10/26/24 08:59 09/28/24 09:11 25 MG Metoprolol Succinate (TopROL XL) 50 mg BID PO 09/24/24 21:00 09/26/24 07:14 DC 09/24/24 19:45 50 MG Metoprolol Tartrate (loprESSOR) 12.5 mg BID PO 09/22/24 21:00 09/24/24 16:38 DC 09/24/24 12:07 12.5 MG Miscellaneous Medication (Folic Acid/ Vitamin B Comp W-C (I[place] Tablet)) 1 tab DAILY PO 09/23/24 09:00 09/22/24 15:56 DC Morphine Sulfate (morPHINE 2MG SYG) 2 mg Q4H PRN IVP SEVERE PAIN (7-10) 09/26/24 01:30 10/03/24 01:29 Multivitamins Therapeutic (Multivitamin Tablet) 1 tab DAILY PO 09/23/24 09:00 10/23/24 08:59 2/2/25 09:11 1 TAB Nifedipine (adALAT 30MG) 60 mg DAILY PO 09/23/24 09:00 10/23/24 08:59 Hold 09/25/24 08:37 60 MG Nitroglycerin (Nitroglycerin 1gm Oint) 0.5 inch Q8H TD 09/21/24 19:30 09/27/24 10:34 DC 09/25/24 12:44 0.5 INCH Norepinephrine 250 ml @ 0 mls/hr AD PRN IV DIRECTED 09/26/24 01:30 09/27/24 10:34 DC 09/26/24 01:40 0 MLS/HR Ondansetron HCl (zoFRAN 4MG INJ) 4 mg Q6H PRN IVP NAUSEA/VOMITING 09/26/24 01:30 10/26/24 01:29 09/27/24 08:51 4 MG Oseltamivir Phosphate (Tamiflu) 75 mg DAILY PO 09/22/24 09:00 09/23/24 13:29 DC 09/23/24 08:38 75 MG Oseltamivir Phosphate (Tamiflu) 75 mg Q24H PO 09/26/24 17:00 09/27/24 17:01 DC 09/27/24 18:04 75 MG Oseltamivir Phosphate (Tamiflu) 75 mg QTUTHSA[DIALYSIS] PO 09/23/24 16:00 09/23/24 17:04 DC Oseltamivir Phosphate (Tamiflu) 75 mg QTUTHSA[DIALYSIS] PO 09/23/24 22:00 09/26/24 16:32 DC 09/25/24 16:09 75 MG Pantoprazole Sodium (PROTonix 40MG INJ) 40 mg BID IVP 09/27/24 21:00 10/27/24 20:59 09/28/24 09:10 40 MG Pharmacy Profile Note (Pharmacy Communication) 1 each ONCE MISC 09/23/24 13:00 09/23/24 13:25 DC Pharmacy Profile Note (Pharmacy Communication) 1 each ONCE MISC 09/23/24 21:30 09/24/24 07:08 DC Pharmacy Profile Note (Pharmacy Communication) 1 each PROTOCOL PRN MISC ETOH Withdrawal Score changes 09/22/24 20:30 09/29/24 20:29 Piperacillin Sod/ Tazobactam Sod 50 ml @ 12.5 mls/hr Q12H IV 09/21/24 21:00 09/23/24 08:06 DC 09/22/24 20:43 12.5 MLS/HR Piperacillin Sod/ Tazobactam Sod (Zosyn 3.375gm+NS 50ml) 3.375 gm Q12H IV 09/26/24 11:30 10/06/24 11:29 09/28/24 01:08 3.375 GM Potassium Chloride 20 meq/ Sodium Chloride 1,010 ml @ 0 mls/hr PROTOCOL IV 09/22/24 00:00 09/23/24 21:23 DC Potassium Chloride/Dextrose/ Sod Cl 1,000 ml @ 0 mls/hr AD IV 09/22/24 00:00 09/23/24 21:23 DC Prednisone (deltaSONE/ oraSONE 20MG TAB) 20 mg DAILY PO 09/28/24 09:00 10/01/24 08:59 09/28/24 09:11 20 MG Sodium Bicarbonate (Sodium Bicarbonate) 650 mg TID PO 09/24/24 09:00 09/27/24 10:34 DC 09/26/24 20:36 650 MG Sodium Chloride 250 ml @ 0 mls/hr Q0M IV 09/25/24 23:00 09/27/24 10:34 DC Sodium Chloride 1,000 ml @ 0 mls/hr ONCE IV 09/23/24 19:30 09/27/24 13:51 DC 09/26/24 12:15 1,000 MLS/HR Sodium Chloride 1,000 ml @ 0 mls/hr ONCE IV 09/27/24 14:30 09/27/24 13:51 DC Sodium Chloride 1,000 ml @ 0 mls/hr ONCE IV 09/27/24 15:00 10/27/24 14:59 09/27/24 15:11 333 MLS/HR Sodium Chloride 1,000 ml @ 100 mls/hr Q10H IV 09/21/24 19:30 09/27/24 10:34 DC 09/23/24 12:53 100 MLS/HR Sodium Chloride 1,000 ml @ 200 mls/hr PROTOCOL IV 09/22/24 00:00 09/23/24 21:23 DC Thiamine HCl 100 mg/Folic Acid 1 mg/Multivitamins/ Minerals 10 ml/ Sodium Chloride 1,011.2 ml @ 100 mls/ hr Q24H IV 09/22/24 20:30 09/25/24 06:37 DC 09/22/24 20:43 100 MLS/HR Vancomycin HCl 250 ml @ 125 mls/hr Q72H IV 09/22/24 20:30 09/23/24 08:04 DC 09/22/24 20:48 125 MLS/HR Vancomycin HCl (Vancomycin 500mg+NS 100ml Ivpb) 1,000 mg DAILY08 IV 09/23/24 08:00 09/22/24 20:26 DC Vancomycin HCl (Vancomycin 750mg) 750 mg MWFPHD IVPB 09/26/24 16:00 10/03/24 23:29 Hold Vancomycin HCl (Vancomycin 750mg) 750 mg Q24H IVPB 09/23/24 23:30 09/25/24 06:26 DC 09/24/24 22:43 750 MG Vitamin B Complex/ Vit C/Folic Acid (Nephrovite Tablet) 1 cap DAILY PO 09/23/24 09:00 10/23/24 08:59 09/28/24 09:11 1 CAP DIAGNOSTICS / RADIOLOGY: [ ] ASSESSMENT: Hyperosmolar Hyperglycemic Syndrome POA NSTEMI POA Influenza bronchopneumonia with sepsis POA Acute Hypoxemic Respiratory Failure POA Acute on chronic renal failure with concern for ATN POA Metabolic acidosis POA Lactic acidosis POA CKD stage 4 POA Uncontrolled Diabetes POA Protein Calorie malnutrition POA PLAN: Downgraded to medical floor Continue broad-spectrum antibiotics Continue to trend WBC in Continue to replace electrolytes IV protocol Continue the patient on long-acting as well as insulin sliding scale Follow a.m. labs GI and DVT prophylaxis Disposition: Pending improvement in clinical condition, CTA to evaluate coronary anatomy tomorrow if heart rate remains controlled, HD tomorrow per tile sorter, evaluated by Cardiothoracic surgeon for hemodialysis access. SHANNAN BALTAZAR MD Sep 28, 2024 10:52
--- NOTE | 2024-09-28 15:17 | PN ---
[facility] PROGRESS NOTE Date Patient Seen: Sep 28, 2024 Time of Visit: 1207 Supervising Physician: Dr. Dong Primary Care Physician: Gama Acosta Outpatient Specialists: [ ] Inpatient Consults: Cardiology, nephrology and critical care team PROBLEM LIST: Septic shock requiring pressors not POA, resolved Acute Hypoxemic Respiratory Failure, POA Acute on chronic CHF with EF of 35 40% Nstemi,likely Type II POA on Heparin gtt Community acquired influenza A viral pneumoniae w/ superimposed Bilateral bacterial Pneumonia, POA, Suspected aspiration pneumonia not POA Sepsis Due To Bilateral Pneumonia And Influenza A Infection, POA Acute Hypoxemic Respiratory Failure, POA Severe transaminitis 2/2 shocked liver not POA Esrd, POA now new HD s/p Rt permacath 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 The staff nurse reports no acute events overnight. The patient was on a Oxymizer with optimal SpO2. He was normotensive without the need for pressor therapy. There was no complaint of chest pain. There was no abdominal pain, nausea vomiting or diarrhea. The patient continued on a insulin drip per the DKA protocol. He was started on antibiotic and antiviral therapy for management of his condition. Review of labs today showed no major concern on CBC. Chemistry panel did show a sodium of 135, chloride of 100 and a CO2 of 20 with a anion gap of 15. Blood glucose remains elevated in the 300s. No new complaint. 09/23- saw patient and ED 13 awake alert and oriented x3. 2D echo at bedside being performed. Patient has been afebrile heart rate of 110, blood pressure 116/63 with respiratory rate of 20 saturating 97% with 7 L via nasal cannula oximizer. Urine output 1.4 L in the last 24 hours. On laboratory WBCs are 11.4 H&H trending down 7.6/23.1 with a platelet count that is 178 K. on chemistry sodium 136 potassium of 3.7 chloride 100 carbon dioxide of 19 BUN 106. Creatinine of 8.6 and GFR of 7. Per Dr Armenta pt scheduled for a Mitesh hemodialysis catheter per IR today. Pt continues with Tamiflu, Doxy, Cefepime and MRSA coverage will be added w/ vanco due to suspected MRSA superimposed pneumonia on Influenza pneumonia. On CT chest, abdomen and pelvis shows Acute appearing infiltrates in both lung bases consistent with pneumoniae. No acute finding in the abdomen or pelvis. Del Cid catheter in good position in the urinary bladder. We will continue to follow Neprhology recommendations. 09/24 patient was seen and examined at bedside with primary nurse present. Patient to receive1 unit PRBCs hemoglobin this a.m. 6.8. Continue to monitor closely. Patient to continue on IV antibiotics. Patient's troponin levels trending down. We will continue to follow recommendations of Cardiology. Patient remains hypoxic requiring supplemental oxygen via nasal cannula at L. Patient states does not use home oxygen. Patient is to continue on heparin drip. Patient to continue on IV steroids. Patient's echocardiogram revealed EF of 35-40%. Patient's blood cultures have been negative x2 days. Patient remains high risk for decompensation. 09/25 patient was seen and examined at bedside with mother present. At time of visit patient is currently on room air has been weaned off oxygen. Yesterday patient was on 5 L. As per patient is tolerating room air well. Patient denies any chest pain or shortness of breadth, however does report shortness of breath upon minimal exertion. Patient remains on heparin drip. Patient is still currently pending coronary CT to be completed, further recommendations by Cardiology to follow once examined has been completed. Patient to continue on hemodialysis per Nephrology's recommendations. 09/26/24-patient is awake alert and oriented x3. He requires Levophed at 0 point 4 micrograms/kilogram per minute for blood pressure support. He was brought into the ICU overnight due to hypotension and elevated liver enzymes. Current blood pressure of 129/74 heart rate in the 80s respiratory rate of 19 saturating 100% with 7 L via Oxymizer and afebrile. As per RN she is weaning Levophed. Urine output was 100 mL in the last 24 hours he received hemodialysis today with 3.6 L out and had one bowel movement. WBCs spiked up this morning from 17.6224 .2 H&H 8.6/25.4 and platelet count is normal 291 K. neutrophils 79.5. Suspect patient aspirated in the episode of hypotension due to increased pulmonary infiltrates to right side and spike in white count and temperature. Patient was panculture and cefepime changed to Zosyn to cover for aspiration pneumonia. On chest x-ray patient with a extensive bilateral infiltrates unchanged. No pneumothorax. Chemistries sodium of 130 potassium is 6.2 chloride of 90 carbon dioxide of 17 with a BUN of 119 and creatinine 9.6 and GFR of six liver enzymes raised AST of 6752 ALT of 4302, alkaline phosphatase of 233 likely from shock liver procalcitonin elevated at 24.31 decreased from admission wishes 70. On repeat BNP patient has a sodium of 134 potassium of 3.5 chloride of 91 carbon dioxide 26 with a anion gap of 17 and ketones of 1.4 we will need to restart insulin drip per DKA protocol. 09/27/24-pt is awake alert and oriented x 3. He is hemodynamically stable and off pressors. He denies any chill, chest pain or increased sob at rest. He does report sob on exertion and reports poor appetite. He is due for HD treatment today. Per RN no major overnight events and he has been afebrile. WBC's are trending down now 20.4, H&H is 8.9/26.3 and platelet count is 220 K. chemistry patient had a sodium of 134 potassium is normal 4.6 chloride of 92 carbon dioxide 24, AGAP has closed, liver enzymes severely elevated consistent with shocked lover but we will order us of abdomen to assess Liver and Gallbladder. Ketones of 0.2. We have discontinued DKA protocol and pt ,may be downgraded from ICU today. 09/28 patient was seen and examined at bedside with family present. Patient is awake alert able to answer simple questions appropriately. Patient is on room air appears to be tolerating well. Patient has remained hemodynamically stable. Patient denies any chest pain or shortness of breadth. Denies any nausea vomiting or abdominal pain. Most per primary nurse no acute events to be reported. We will continue to follow recommendations from Nephrology and Cardiology appreciate assistance. We will continue to monitor patient closely REVIEW OF SYSTEMS: 12 point ROS reviewed with patient. Pertinent positives mentioned above. Otherwise negative. PHYSICAL EXAM: GENERAL: alert, weak, awake oriented x 3 HEENT: EOMI, Sclera non icteric, moist mucosa NECK: Supple, no JVD, trachea midline LUNGS: coarse rhonchi breath sounds bilaterally. No wheezes HEART: Regular rate and rhythm. Normal S1 and S2, without murmurs ABD: Abdomen soft, nontender. Bowel sounds present EXT: No clubbing cyanosis or edema NEURO: Alert and oriented to person, follows commands Vital Signs (last 8hr) Date Time Temp Pulse Resp B/P (MAP) Pulse Ox O2 Delivery O2 Flow Rate FiO2 09/28/24 11:22 97.9 73 18 131/69 97 Room Air 09/28/24 11:08 73 18 N/A Room Air 09/28/24 08:05 97.9 70 18 114/74 95 Room Air 09/28/24 08:00 96 Room Air* 0 21 LABS: Hematology Labs: Test 09/28/24 03:24 09/27/24 04:02 Range/Units White Blood Count 22.0 H 4.8-10.8 K/uL Red Blood Count 3.00 L 4.50-6.20 MIL/uL Hemoglobin 8.8 L 14.0-18.0 g/dL Hematocrit 26.0 L 42-54 % Mean Corpuscular Volume 86.7 79-99 fL Mean Corpuscular Hemoglobin 29.3 27.0-33.0 pg Mean Corpuscular Hemoglobin Concent 33.8 32.0-36.0 g/dL Red Cell Distribution Width 13.0 11.0-15.5 % Platelet Count 220 130-400 K/uL Mean Platelet Volume 11.6 H 7.5-10.5 fL Immature Granulocyte % (Auto) 8.8 H 0-1 % Neutrophils (%) (Auto) 84.2 H 40.0-77.0 % Lymphocytes (%) (Auto) 1.7 L 21.0-51.0 % Monocytes (%) (Auto) 5.1 3.0-13.0 % Eosinophils (%) (Auto) 0.0 0.0-8.0 % Basophils (%) (Auto) 0.2 0.0-5.0 % Neutrophils # (Auto) 18.5 H 1.8-7.7 K/uL Lymphocytes # (Auto) 0.4 L 1.0-4.8 K/uL Monocytes # (Auto) 1.1 H 0.1-1.0 K/uL Eosinophils # (Auto) 0.00 0.00-0.70 K/uL Basophils # (Auto) 0.05 0.00-0.20 K/uL Absolute Immature Granulocyte (auto 1.94 H 0-1 K/uL Nucleated Red Blood Cells 3.0 H 0.0-0.19 % Segmented Neutrophils % 90 H 40-70 % Band Neutrophils % 4 H 0-2 % Lymphocytes % (Manual) 5 L 22-44 % Metamyelocytes % 1 H 0-0 % Differential Comment MANUAL DIFFERENTIAL White Cell Morphology Comment IMMATURE GRAN 1+ Platelet Morphology Comment See comments Red Blood Cell Morphology See comments Chemistry Labs: Test 09/28/24 10:46 09/28/24 10:19 09/28/24 03:24 09/27/24 04:02 Range/Units Whole Blood Glucose 374 H 70-110 MG/DL Ammonia 21 11-32 umol/L Sodium Level 132 L 136-145 mmol/L Potassium Level 5.0 3.5-5.1 mmol/L Chloride Level 92 L 101-111 mmol/L Carbon Dioxide Level 24 21-32 mmol/L Blood Urea Nitrogen 104 *H 7-18 mg/dL Creatinine 8.4 *H 0.5-1.3 mg/dL Glomerular Filtration Rate Calc 7 >90 mL/min Random Glucose 284 #H 70-105 mg/dL Total Calcium 5.9 *L 8.5-10.1 mg/dL Total Bilirubin 0.6 0.2-1.0 mg/dL Aspartate Amino Transf (AST/SGOT) 1201 *H 10-37 U/L Alanine Aminotransferase (ALT/SGPT) 3508 #*H 12-78 U/L Alkaline Phosphatase 220 H 50-136 U/L Total Protein 5.1 L 6.0-8.3 g/dL Albumin 2.3 L 3.5-5.0 g/dL Procalcitonin 17.06 H 0.05-0.5 ng/mL Whole Blood Ketones Quantitative 0.2 0.0-0.6 mmol/L Phosphorus Level 10.9 H 2.5-4.9 mg/dL Magnesium Level 2.10 1.80-2.40 mg/dL DIAGNOSTICS / RADIOLOGY RESULTS: na PLAN NEURO: Minimize central acting medications as possible. Maintain fall precautions, adequate lighting during the day PULMONARY: Supplemental 02 as needed. Maintain aspiration precautions at all times CARDIOVASCULAR: Follow hemodynamics. Vital signs per facility protocol GI & NUTRITION: Continue with nutritional support. Continue stool softeners and laxatives as needed. KIDNEYS & ELECTROLYTES: Strict monitoring of intake, output and overall fluid balance. Avoid nephrotoxic medications to the extent possible. Medications to be dosed according to renal function. Monitor electrolytes and replace as needed ENDOCRINE: Maintain blood glucose between 100-180 at all times. Hypoglycemia protocol in place INFECTIOUS DISEASE: Trend temperature, WBC and procalcitonin level Follow cultures, deescalate antibiotics as soon as possible. Panculture if new onset fever ONCOLOGY/HEMATOLOGY/COAGULATION: Monitor for s/s of bleeding Monitor hemoglobin, coagulation studies as needed SKIN: Pressure ulcer prevention per facility protocol Specialty mattress ORTHO/REHAB: Continue PT/OT Prophylaxis: Continue GI and DVT prophylaxis Code Status: Full Resuscitation Disposition: TBD Other: Case discussed with supervising physician plan of care agreed upon RACHEL RAMSEY Sep 28, 2024 15:17
--- NOTE | 2024-09-28 15:32 | HMCIMG ---
US ABDOMINAL COMPLETE HISTORY: No additional history given. COMPARISON: None TECHNIQUE: Multiple transverse and longitudinal ultrasound images of the abdomen were obtained. FINDINGS: Abdominal aorta and inferior vena cava are unremarkable. The visualized portion of the pancreas is within normal limits. Portal vein is patent. Liver measures 17 cm. Liver is echogenic consistent with liver parenchymal disease. No gallstone is seen. Common duct measures 4 mm. No evidence of gallbladder wall thickening is seen. Both kidneys are seen. Right kidney measures 10.3 x 4.9 x 5 cm. Left kidney measures 10.3 x 6.4 x 3 cm. No hydronephrosis is seen of the both kidneys. Spleen measures 12 cm. The spleen is grossly unremarkable. IMPRESSION: 1. No gallstone or ductal dilatation is seen. 2. No hydronephrosis is seen.
--- NOTE | 2024-09-28 19:40 | PN ---
SUBJECTIVE: A 49-year-old male with history of diabetes mellitus and hypertension. The patient with a history of end-stage renal disease, on dialysis. The patient has been transferred out of the ICU. The patient's pulmonary symptoms have greatly improved. The patient is also being seen by Cardiology and is being seen as a followup visit for all of the above. REVIEW OF SYSTEMS: GENERAL: He is feeling improved. HEENT: No change in vision. No change in hearing, no nasal discharge, no sore throat. CARDIOVASCULAR: No current chest pain or palpitations. PULMONARY: Shortness of breath has improved. GASTROINTESTINAL: The patient is tolerating a diet. MUSCULOSKELETAL: Complains of weakness. PHYSICAL EXAMINATION:. VITAL SIGNS: Blood pressure is 131/69, pulse 70s. GENERAL: He is a young male, much older than appearing. HEENT: Head is atraumatic. Pupils are equal, roving to light. Oropharynx is without exudate. Nares clear. NECK: There is no JVP. There is no thyromegaly, no mass. CARDIOVASCULAR: Regular. There is no S3, S4 gallop. LUNGS: Coarse with equal thoracic movement. ABDOMEN: Soft, nondistended, nontender. EXTREMITIES: Reveal no clubbing, no cyanosis. NEUROLOGIC: He is awake. He is alert. He is oriented. LABORATORY DATA: Sodium 132, potassium is 5, BUN 104, creatinine is 8. AST is 1200. IMPRESSION: * Renal dysfunction, on dialysis. * Diabetes mellitus. * Hypertension. * Debilitation. PLAN: The patient continues with the dialysis while in the hospital. The patient's Del Cid catheter will be discontinued. The patient is receiving erythropoietin injections for the anemia. We will have physical therapy evaluate the patient. Blood pressure is under better control and we will follow while in the hospital. TID: [id number] RECEIPT: [id number]
[2024-09-28 22:34] LABS: HEMATOCRIT 28.3 % (42-54); MEAN CORPUSCULAR HEMOGLOBIN 29.1 pg (27.0-33.0); MEAN CORPUSCULAR HGB CONC 33.2 g/dL (32.0-36.0); MEAN CORPUSCULAR VOLUME 87.6 fL (79-99); RED BLOOD CELL COUNT(AUTO) 3.23 MIL/uL (4.50-6.20); RED CELL DISTRIBUTION WIDTH 13.2 % (11.0-15.5); WHITE BLOOD COUNT (AUTO) 21.2 K/uL (4.8-10.8)
[2024-09-29] VITALS (22 sets, daily range): BP systolic 93–147; BP diastolic 64–91; PULSE 63–79; RESP 15–19; TEMP 97.3–98.4; O2SAT 94–96
[2024-09-29 04:31] LABS: HEMATOCRIT 25.8 % (42-54); MEAN CORPUSCULAR HEMOGLOBIN 28.6 pg (27.0-33.0); MEAN CORPUSCULAR HGB CONC 32.6 g/dL (32.0-36.0); MEAN CORPUSCULAR VOLUME 87.8 fL (79-99); NUCLEATED RED BLOOD CELLS 1.6 % (0.0-0.19); RED BLOOD CELL COUNT(AUTO) 2.94 MIL/uL (4.50-6.20); RED CELL DISTRIBUTION WIDTH 13.1 % (11.0-15.5); WHITE BLOOD COUNT (AUTO) 18.6 K/uL (4.8-10.8)
[2024-09-29 05:19] LABS: ALBUMIN 2.2 g/dL (3.5-5.0); BILIRUBIN,TOTAL 0.6 mg/dL (0.2-1.0); MAGNESIUM 2.2 mg/dL (1.80-2.40); POTASSIUM 4.5 mmol/L (3.5-5.1); TOTAL PROTEIN, SERUM 5.5 g/dL (6.0-8.3)
[2024-09-29 06:10] LABS: CREATININE 10.5 mg/dL (0.5-1.3)
[2024-09-29] MEDS ORDERED: IOHEXOL 350 MG/ML 100ML INFUS..BTL IV ONE (11:19)
--- NOTE | 2024-09-29 11:30 | NUR ---
PATIENT TAKEN TO CT FOR CORONARY CTA TO BE DONE
--- NOTE | 2024-09-29 11:58 | PN ---
[facility] CARDIOLOGY PROGRESS NOTE Date Patient Seen: Sep 29, 2024 Time of Visit: 11:54 Problem List: NSTEMI Volume overload 2/2 progression of ESRD Influenza A, Tamiflu started on 09/22/2024 Bilateral pneumonia HHS and DKA, on Insulin gtt HTN HLD DM type II 2D echo on 04/06/2024 demonstrated an EF of 45-50% Lexiscan stress test on 04/07/2024 demonstrated a fixed basal mid inferolateral and basal inferior defect with no reversible ischemia Interval History: [No acute events overnight[place] [id number] and is on IV antibiotics. The patient is currently undergoing coronary CT, and after he will receive hemodialysis session Physical Examination: GENERAL: No acute distress. HEAD: Normal with no signs of head trauma. EYES: PERRLA, EOMI, conjunctiva and sclera normal. ENT: Hearing grossly intact, normal oropharynx. NECK: Supple without JVD. There is no tenderness, lymphadenopathy, or masses. No thyromegaly. Normal carotid upstrokes without bruits. LUNGS: Crackles to bases bilaterally. HEART: Tachycardic rate and normal rhythm. Normal S1 and S2 without murmurs, gallop or rub. VASC: BLE 2+ pitting edema ABD: Bowel sounds normal, soft, nontender, no masses, no organomegaly. No audible bruits. : Not examined LYMPH: No lymphadenopathy noted. EXT: No clubbing, cyanosis 2+ bilateral lower extremity pitting edema SKIN: No rashes or lesions noted. NEURO: Awake, alert, and oriented x3. No focal sensory or strength deficits noted. Laboratory: [ ] Hematology Labs: Test 09/29/24 03:51 09/28/24 03:24 Range/Units White Blood Count 18.6 H 4.8-10.8 K/uL Red Blood Count 2.94 L 4.50-6.20 MIL/uL Hemoglobin 8.4 L 14.0-18.0 g/dL Hematocrit 25.8 L 42-54 % Mean Corpuscular Volume 87.8 79-99 fL Mean Corpuscular Hemoglobin 28.6 27.0-33.0 pg Mean Corpuscular Hemoglobin Concent 32.6 32.0-36.0 g/dL Red Cell Distribution Width 13.1 11.0-15.5 % Platelet Count 233 130-400 K/uL Mean Platelet Volume 11.9 H 7.5-10.5 fL Nucleated Red Blood Cells 1.6 H 0.0-0.19 % Immature Granulocyte % (Auto) 8.8 H 0-1 % Neutrophils (%) (Auto) 84.2 H 40.0-77.0 % Lymphocytes (%) (Auto) 1.7 L 21.0-51.0 % Monocytes (%) (Auto) 5.1 3.0-13.0 % Eosinophils (%) (Auto) 0.0 0.0-8.0 % Basophils (%) (Auto) 0.2 0.0-5.0 % Neutrophils # (Auto) 18.5 H 1.8-7.7 K/uL Lymphocytes # (Auto) 0.4 L 1.0-4.8 K/uL Monocytes # (Auto) 1.1 H 0.1-1.0 K/uL Eosinophils # (Auto) 0.00 0.00-0.70 K/uL Basophils # (Auto) 0.05 0.00-0.20 K/uL Absolute Immature Granulocyte (auto 1.94 H 0-1 K/uL Chemistry Labs: Test 09/29/24 11:40 09/29/24 03:51 09/28/24 10:19 09/28/24 03:24 Range/Units Whole Blood Glucose 368 #H 70-110 MG/DL Sodium Level 134 L 136-145 mmol/L Potassium Level 4.5 3.5-5.1 mmol/L Chloride Level 90 *L 101-111 mmol/L Carbon Dioxide Level 23 21-32 mmol/L Blood Urea Nitrogen 124 *H 7-18 mg/dL Creatinine 10.5 *H 0.5-1.3 mg/dL Glomerular Filtration Rate Calc 5 >90 mL/min Random Glucose 155 H 70-105 mg/dL Total Calcium 5.5 *L 8.5-10.1 mg/dL Magnesium Level 2.20 1.80-2.40 mg/dL Total Bilirubin 0.6 0.2-1.0 mg/dL Aspartate Amino Transf (AST/SGOT) 365 H 10-37 U/L Alanine Aminotransferase (ALT/SGPT) 2760 *H 12-78 U/L Alkaline Phosphatase 194 H 50-136 U/L Total Protein 5.5 L 6.0-8.3 g/dL Albumin 2.2 L 3.5-5.0 g/dL Ammonia 21 11-32 umol/L Procalcitonin 17.06 H 0.05-0.5 ng/mL Diagnostics / Radiology: [Copy/Paste Echos/Imaging Report here] Impression and Plan: NSTEMI Volume overload 2/2 progression of ESRD Influenza A, Tamiflu started on 09/22/2024 Bilateral pneumonia HHS and DKA, on Insulin gtt HTN HLD DM type II 2D echo on 04/06/2024 demonstrated an EF of 45-50% Lexiscan stress test on 04/07/2024 demonstrated a fixed basal mid inferolateral and basal inferior defect with no reversible ischemia NSTEMI Troponin of 5531, 5716, 8278, and 6392 EKG demonstrated sinus tachycardia with a heart rate of 121 beats per minute, LAE, and diffuse ischemia On heparin drip per [facility] protocol, started. Patient has completed more than 48 hours of IV heparin and has been since discontinued -patient require a total of 12 months of dap (aspirin 81 mg daily/Plavix 75 mg daily) in addition to Lipitor 40 mg q.h.s. -TTE showed severely hypokinetic inferior wall, EF 35-40 %, prior Lexiscan stress test shows fixed defects in the inferior wall . -Patient is currently flu positive, has sepsis, and is significantly volume overloaded unable to lie flat -Volume reduction via HD as patient is oliguric. Overnight urine output 340 ml Pending further stabilization and treatment of sepsis/flu -Pending coronary CTA results we will determine the need to proceed for the coronary angiogram during this admission -he currently denies any anginal symptoms or equivalents. Please keep on telemetry and monitor/replace electrolytes as needed #Acute on chronic HFrEF: Presumed to be ischemic cardiomyopathy, LVEF 35-40% with inferior wall hypokinesis. NYHA III, volume overloaded, stage C Prior Lexiscan stress test with fixed inferior defect suggestive of scar Given his soft systolic blood pressures electrolyte derangements we will defer optimization of GDM T Continue Toprol-XL 25 mg b.i.d.. Strict I's and O's and daily weights. Volume reduction via HD, pending for HD tomorrow Nephrology is following, recommendations appreciated Thank you for this consult cardiology will continue to follow along,. formal recommendations pending CCTA results ATTESTATION BY PHYSICIAN I have seen and examined the patient, reviewed the above documentation, participated in medical decision making, made necessary modifications, and agree with the treatment plan as documented by my mid-level provider above. MD JIMBO Rick JAMES R MD Sep 29, 2024 11:58
[2024-09-29] MEDS ORDERED: IOHEXOL-350 50ML VIAL IV ONE (12:17)
[2024-09-29] MEDS ORDERED: metoPROLOL tartRATE 1 MG/ML 5ML VIAL IV ONE (12:23)
--- NOTE | 2024-09-29 13:21 | NUR ---
Order received and spoke to nurse Lizbeth, who stated patient going to CTA in am. Patient undergoing dialysis in pm. PT team to follow.
--- NOTE | 2024-09-29 14:21 | PN ---
[facility] PROGRESS NOTE Date Patient Seen: Sep 29, 2024 Time of Visit: 1203 Supervising Physician: DR. Dong Primary Care Physician: Gama Acosta Outpatient Specialists: [ ] Inpatient Consults: Cardiology, nephrology and critical care team PROBLEM LIST: Septic shock requiring pressors not POA, resolved Acute Hypoxemic Respiratory Failure, POA Acute on chronic CHF with EF of 35 40% Nstemi,likely Type II POA on Heparin gtt Community acquired influenza A viral pneumoniae w/ superimposed Bilateral bacterial Pneumonia, POA, Suspected aspiration pneumonia not POA Sepsis Due To Bilateral Pneumonia And Influenza A Infection, POA Acute Hypoxemic Respiratory Failure, POA Severe transaminitis 2/2 shocked liver not POA Esrd, POA now new HD s/p Rt permacath 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 The staff nurse reports no acute events overnight. The patient was on a Oxymizer with optimal SpO2. He was normotensive without the need for pressor therapy. There was no complaint of chest pain. There was no abdominal pain, nausea vomiting or diarrhea. The patient continued on a insulin drip per the DKA protocol. He was started on antibiotic and antiviral therapy for management of his condition. Review of labs today showed no major concern on CBC. Chemistry panel did show a sodium of 135, chloride of 100 and a CO2 of 20 with a anion gap of 15. Blood glucose remains elevated in the 300s. No new complaint. 09/23- saw patient and ED 13 awake alert and oriented x3. 2D echo at bedside being performed. Patient has been afebrile heart rate of 110, blood pressure 116/63 with respiratory rate of 20 saturating 97% with 7 L via nasal cannula oximizer. Urine output 1.4 L in the last 24 hours. On laboratory WBCs are 11.4 H&H trending down 7.6/23.1 with a platelet count that is 178 K. on chemistry sodium 136 potassium of 3.7 chloride 100 carbon dioxide of 19 BUN 106. Creatinine of 8.6 and GFR of 7. Per Dr Armenta pt scheduled for a Mitesh hemodialysis catheter per IR today. Pt continues with Tamiflu, Doxy, Cefepime and MRSA coverage will be added w/ vanco due to suspected MRSA superimposed pneumonia on Influenza pneumonia. On CT chest, abdomen and pelvis shows Acute appearing infiltrates in both lung bases consistent with pneumoniae. No acute finding in the abdomen or pelvis. Del Cid catheter in good position in the urinary bladder. We will continue to follow Neprhology recommendations. 09/24 patient was seen and examined at bedside with primary nurse present. Patient to receive1 unit PRBCs hemoglobin this a.m. 6.8. Continue to monitor closely. Patient to continue on IV antibiotics. Patient's troponin levels trending down. We will continue to follow recommendations of Cardiology. Patient remains hypoxic requiring supplemental oxygen via nasal cannula at L. Patient states does not use home oxygen. Patient is to continue on heparin drip. Patient to continue on IV steroids. Patient's echocardiogram revealed EF of 35-40%. Patient's blood cultures have been negative x2 days. Patient remains high risk for decompensation. 09/25 patient was seen and examined at bedside with mother present. At time of visit patient is currently on room air has been weaned off oxygen. Yesterday patient was on 5 L. As per patient is tolerating room air well. Patient denies any chest pain or shortness of breadth, however does report shortness of breath upon minimal exertion. Patient remains on heparin drip. Patient is still currently pending coronary CT to be completed, further recommendations by Cardiology to follow once examined has been completed. Patient to continue on hemodialysis per Nephrology's recommendations. 09/26/24-patient is awake alert and oriented x3. He requires Levophed at 0 point 4 micrograms/kilogram per minute for blood pressure support. He was brought into the ICU overnight due to hypotension and elevated liver enzymes. Current blood pressure of 129/74 heart rate in the 80s respiratory rate of 19 saturating 100% with 7 L via Oxymizer and afebrile. As per RN she is weaning Levophed. Urine output was 100 mL in the last 24 hours he received hemodialysis today with 3.6 L out and had one bowel movement. WBCs spiked up this morning from 17.6224 .2 H&H 8.6/25.4 and platelet count is normal 291 K. neutrophils 79.5. Suspect patient aspirated in the episode of hypotension due to increased pulmonary infiltrates to right side and spike in white count and temperature. Patient was panculture and cefepime changed to Zosyn to cover for aspiration pneumonia. On chest x-ray patient with a extensive bilateral infiltrates unchanged. No pneumothorax. Chemistries sodium of 130 potassium is 6.2 chloride of 90 carbon dioxide of 17 with a BUN of 119 and creatinine 9.6 and GFR of six liver enzymes raised AST of 6752 ALT of 4302, alkaline phosphatase of 233 likely from shock liver procalcitonin elevated at 24.31 decreased from admission wishes 70. On repeat BNP patient has a sodium of 134 potassium of 3.5 chloride of 91 carbon dioxide 26 with a anion gap of 17 and ketones of 1.4 we will need to restart insulin drip per DKA protocol. 09/27/24-pt is awake alert and oriented x 3. He is hemodynamically stable and off pressors. He denies any chill, chest pain or increased sob at rest. He does report sob on exertion and reports poor appetite. He is due for HD treatment today. Per RN no major overnight events and he has been afebrile. WBC's are trending down now 20.4, H&H is 8.9/26.3 and platelet count is 220 K. chemistry patient had a sodium of 134 potassium is normal 4.6 chloride of 92 carbon dioxide 24, AGAP has closed, liver enzymes severely elevated consistent with shocked lover but we will order us of abdomen to assess Liver and Gallbladder. Ketones of 0.2. We have discontinued DKA protocol and pt ,may be downgraded from ICU today. 2/ patient was seen and examined at bedside with family present. Patient is awake alert able to answer simple questions appropriately. Patient is on room air appears to be tolerating well. Patient has remained hemodynamically stable. Patient denies any chest pain or shortness of breadth. Denies any nausea vomiting or abdominal pain. Most per primary nurse no acute events to be reported. We will continue to follow recommendations from Nephrology and Cardiology appreciate assistance. We will continue to monitor patient closely 2/ patient was seen and examined at bedside with family present. Patient remains on room air tolerating well. Patient is scheduled for coronary CT today we will follow recommendations from Cardiology. Patient to continue on hemodialysis per Nephrology's recommendations. Patient's WBCs trending down today 18.6 yesterday 22.0. Patient to continue on IV antibiotics. We will continue to monitor patient closely. REVIEW OF SYSTEMS: 12 point ROS reviewed with patient. Pertinent positives mentioned above. Otherwise negative. PHYSICAL EXAM: GENERAL: alert, weak, awake oriented x 3 HEENT: EOMI, Sclera non icteric, moist mucosa NECK: Supple, no JVD, trachea midline LUNGS: coarse rhonchi breath sounds bilaterally. No wheezes HEART: Regular rate and rhythm. Normal S1 and S2, without murmurs ABD: Abdomen soft, nontender. Bowel sounds present EXT: No clubbing cyanosis or edema NEURO: Alert and oriented to person, follows commands Vital Signs (last 8hr) Date Time Temp Pulse Resp B/P (MAP) Pulse Ox O2 Delivery O2 Flow Rate FiO2 09/29/24 12:00 97.9 69 15 127/64 92 Room Air 0.0 09/29/24 08:00 97.5 74 15 103/73 96 Room Air 0.0 09/29/24 08:00 96 Room Air* 0 21 09/29/24 06:48 65 18 N/A Room Air LABS: Hematology Labs: Test 09/29/24 03:51 09/28/24 03:24 Range/Units White Blood Count 18.6 H 4.8-10.8 K/uL Red Blood Count 2.94 L 4.50-6.20 MIL/uL Hemoglobin 8.4 L 14.0-18.0 g/dL Hematocrit 25.8 L 42-54 % Mean Corpuscular Volume 87.8 79-99 fL Mean Corpuscular Hemoglobin 28.6 27.0-33.0 pg Mean Corpuscular Hemoglobin Concent 32.6 32.0-36.0 g/dL Red Cell Distribution Width 13.1 11.0-15.5 % Platelet Count 233 130-400 K/uL Mean Platelet Volume 11.9 H 7.5-10.5 fL Nucleated Red Blood Cells 1.6 H 0.0-0.19 % Immature Granulocyte % (Auto) 8.8 H 0-1 % Neutrophils (%) (Auto) 84.2 H 40.0-77.0 % Lymphocytes (%) (Auto) 1.7 L 21.0-51.0 % Monocytes (%) (Auto) 5.1 3.0-13.0 % Eosinophils (%) (Auto) 0.0 0.0-8.0 % Basophils (%) (Auto) 0.2 0.0-5.0 % Neutrophils # (Auto) 18.5 H 1.8-7.7 K/uL Lymphocytes # (Auto) 0.4 L 1.0-4.8 K/uL Monocytes # (Auto) 1.1 H 0.1-1.0 K/uL Eosinophils # (Auto) 0.00 0.00-0.70 K/uL Basophils # (Auto) 0.05 0.00-0.20 K/uL Absolute Immature Granulocyte (auto 1.94 H 0-1 K/uL Chemistry Labs: Test 09/29/24 11:40 09/29/24 03:51 09/28/24 10:19 09/28/24 03:24 Range/Units Whole Blood Glucose 368 #H 70-110 MG/DL Sodium Level 134 L 136-145 mmol/L Potassium Level 4.5 3.5-5.1 mmol/L Chloride Level 90 *L 101-111 mmol/L Carbon Dioxide Level 23 21-32 mmol/L Blood Urea Nitrogen 124 *H 7-18 mg/dL Creatinine 10.5 *H 0.5-1.3 mg/dL Glomerular Filtration Rate Calc 5 >90 mL/min Random Glucose 155 H 70-105 mg/dL Total Calcium 5.5 *L 8.5-10.1 mg/dL Magnesium Level 2.20 1.80-2.40 mg/dL Total Bilirubin 0.6 0.2-1.0 mg/dL Aspartate Amino Transf (AST/SGOT) 365 H 10-37 U/L Alanine Aminotransferase (ALT/SGPT) 2760 *H 12-78 U/L Alkaline Phosphatase 194 H 50-136 U/L Total Protein 5.5 L 6.0-8.3 g/dL Albumin 2.2 L 3.5-5.0 g/dL Ammonia 21 11-32 umol/L Procalcitonin 17.06 H 0.05-0.5 ng/mL DIAGNOSTICS / RADIOLOGY RESULTS: na PLAN Follow up with coronary CT Continue to follow recommendations from Cardiology Continue IV antibiotics Continue prednisone 20 mg daily Repeat labs in a.m. Rest of the care per primary team NEURO: Minimize central acting medications as possible. Maintain fall precautions, adequate lighting during the day PULMONARY: Supplemental 02 as needed. Maintain aspiration precautions at all times CARDIOVASCULAR: Follow hemodynamics. Vital signs per facility protocol GI & NUTRITION: Continue with nutritional support. Continue stool softeners and laxatives as needed. KIDNEYS & ELECTROLYTES: Strict monitoring of intake, output and overall fluid balance. Avoid nephrotoxic medications to the extent possible. Medications to be dosed according to renal function. Monitor electrolytes and replace as needed ENDOCRINE: Maintain blood glucose between 100-180 at all times. Hypoglycemia protocol in place INFECTIOUS DISEASE: Trend temperature, WBC and procalcitonin level Follow cultures, deescalate antibiotics as soon as possible. Panculture if new onset fever ONCOLOGY/HEMATOLOGY/COAGULATION: Monitor for s/s of bleeding Monitor hemoglobin, coagulation studies as needed SKIN: Pressure ulcer prevention per facility protocol Specialty mattress ORTHO/REHAB: Continue PT/OT Prophylaxis: Continue GI and DVT prophylaxis Code Status: Full Resuscitation Disposition: TBD Other: Case discussed with supervising physician plan of care agreed upon RACHEL RAMSEY Sep 29, 2024 14:21
--- NOTE | 2024-09-29 14:57 | HMCIMG ---
CT OF THE CHEST WITH CONTRAST- CT Cardiac Angio co-interpretation This is done as part of the CT cardiac angiogram study. The interpretation of the coronary arteries will be done by core rescuer in a separate report. History: over-read Comparison: none CT Dose Index (CTDI): 77.90 mGy Dose Length Product (DLP): 493.40 total mGy PROTOCOL: Examination is done at 2.5 millimeter volumetric acquisition after contrast administration with Isovue 370, 100 cc IV, without complications. Photography is done at 5 millimeter thick intervals for the thorax. The examination begins above the heart and therefore the lung apices are incompletely included. The rest of the left lung is included but the right lung is only included up to its middle third. The periphery of the right lung is not included in the study. FINDINGS: The visualized part of the airway is preserved. The bony and soft tissue structures of the chest wall are unremarkable. The aorta is unremarkable. No mediastinal lymphadenopathy is seen. The appendix is distended and there are surrounding inflammatory changes and the possibility of acute appendicitis cannot be excluded. There is no evidence of pulmonary embolism in the visualized lung segments. The upper abdominal views are unremarkable. Impression: NoThe appendix is distended and there are surrounding inflammatory changes and the possibility of acute appendicitis cannot be excluded.
[2024-09-29] MEDS ORDERED: ALBUMIN (HUMAN) 25% 50 ML IV.SOLN. IV ONE (15:15)
--- NOTE | 2024-09-29 15:31 | PN ---
[facility] PROGRESS NOTE Date of Service: Sep 29, 2024 Time of Service: 15:24 SUBJECTIVE: This is a 49-year-old male with past medical history of CKD not on hemodialysis, diabetes, hypertension, hyperlipidemia and obesity who presents to the ED for complaints of cough and chest congestion which started last Sunday and getting worse on Sunday. Patient reports coughing up pinkish colored thick phlegm, loss of appetite and on Sunday started not eating unable to sleep, vomiting and having chest pain triggered by persistent coughing he said.Patient reports having soreness due to hard cough he said.Patient reports having sweeling on both lower extremities and started having shortness of breath and today he started having non bloody diarrhea. Neela was at bedside during my evaluation. Upon arrival to ER a STEMI alert was activated per ER MD and spoke to [employer] information broker and as per report patient is possibly going to cathlab tomorrow and patient is going to be started on Heparin and Insulin drip. Seen and examined patient in the Er awake,alert and coherent,appears weak looking.Patient denies fever,palpitation ,dizziness ,sore throat and headache. Latest vital signs temperature 98.1, heart rate 108, respiration 30 blood pressure 130/68 saturation 91% on 4 L nasal cannula. Labs: WBC 11.2, hemoglobin 9, hematocrit 27, platelet count 238, neutrophils 88. PH 7.32, CO2 26, PO2 49.6, bicarb 13, PO2 80 base excess -11.3. Sodium 129, potassium 5.9, chloride 93, CO2 19, BUN 88, creatinine 8.2, GFR seven glucose 876 , lactic acid 3.0-3.2, troponin 5531 albumin 2.1. Influenza A positive influenza B negative SARs COVID negative. Strep A negative. Chest x-ray result revealed extensive bilateral mid to lower lung pneumonia right greater than left. First ECG result revealed sinus tachycardia heart rate 121 probable left atrial enlargement repolarization abnormal suggest ischemia diffuse leads ST-elevation consider anterior injury. Second EKG result revealed sinus tachycardia repolarization abnormality suggest ischemia diffuse leads borderline ST elevation anterior leads heart rate 108. While in the ER patient received Tamiflu 75 mg p.o., 1 L NS bolus, Lopressor 5 mg IV, insulin 10 units IV, Zosyn IV, Zofran 4 mg IV and Phenergan codeine 10 mL p.o. we will admit patient in ICU for further medical management. 09/29/24 Patient was seen and examined at bedside. No acute events overnight. Today his vitals are blood pressure 103/73, pulse rate respiratory rate 15 and SpO2 96% on room air and tolerating well, T-max 97.5. He is scheduled for hemodialysis today. And a abdominal ultrasound was performed yesterday, no evidence of gallstones or hydronephrosis, was done to rule out liver cirrhosis due to elevated liver enzymes. AST came down from 6752 to 365, ALT from 4300 to 2760, ALP from 233-194, enzymes were elevated probably due to shock liver. His white count has been coming down from 22 to 18.6. Del Cid's catheter was discontinued last night, strict input and output monitoring he is being maintained. CT showed a distended appendix with surrounding inflammatory changes and possibility of acute appendicitis can not be excluded but patient denies any lower quadrant pain or nausea or vomitings or McBurney point tenderness. We will follow pulmonology, Nephrology and Cardiology recommendations. REVIEW OF SYSTEMS CONSTITUTIONAL: Denies fevers, chills, or night sweats. No unintentional weight loss reported. NEUROLOGICAL: Denies headache, amaurosis fugax, motor weakness, sensory deficit, vertigo/spinning sensation, gait abnormalities, or tremors. ENT: No hearing loss, otalgia, otorrhea, rhinitis, rhinorrhea, hoarseness, or sore throat. CARDIOVASCULAR: Complaints of orthopnea shortness of breaths and chest pain Denies paroxysmal nocturnal dyspnea, palpitations, life-threatening arrhythmias, claudication. PULMONARY: Complaints of productive cough , pleuritic chest pain and shortness of breaths SLEEP: Complains of unable to sleep Denies morning headaches, daytime somnolence or napping. Denies waking from sleep. Denies knowledge of snoring. GASTROINTESTINAL: Complaints of loss of appetite, vomiting and diarrhea Denies any type of dysphagia to either liquids or solids. Denies nausea, vomiting, pyrosis, early satiety, abdominal pain, diarrhea, constipation, or changes in stool consistency or caliber. Denies coffee-ground emesis, hematemesis, hematochezia, or melanotic stools. GENITOURINARY: Denies frequency, urgency, nocturia, hematuria or incontinence (Storage/Irritative symptoms.) Low urinary stream, straining to void, urinary intermittency or hesitancy, splitting of the voiding stream, terminal dribbling. ENDOCRINOLOGIC: Denies polyuria, polydipsia, polyphagia or heat/cold intolerances. Patient reports not taking medications for diabetes because he was not eating. HEMATOLOGIC: Denies thrombophilia/previous clots, or coagulopathy/bleeding disorders. ONCOLOGIC: Denies personal history of malignancy. DERMATOLOGIC: Denies rashes or pruritus. PSYCHIATRIC: Denies any suicidal or homicidal ideation. Denies hallucinations. PHYSICAL EXAM GENERAL APPEARANCE: The patient is awake, alert, and oriented appears generally weak NEUROLOGICAL: Cranial nerves II-XII grossly intact. Motor is 5/5 in bilateral upper and lower extremities proximal to distal. No sensory deficits. HEENT: Face is symmetric. Pupils are equal and reactive. Extraocular movements are intact. NECK: Supple. No JVD. No thyromegaly. No submental, submandibular, pre- /postauricular, occipital or supraclavicular lymphadenopathy. CHEST: Normal chest expansion. No Telemetry. LUNGS: . Diminished lung sounds to bilateral lung james CARDIOVASCULAR: Tachycardic Regular. S1 and S2 normal. No appreciable rubs, murmurs or gallops. ABDOMEN: Round and firmed There is no rebound, voluntary guarding, or rigidity. : Deferred. No Del Cid. EXTREMITIES: Bilateral lower extremity edema No clubbing. Good capillary refill. SKIN: No skin breakdown. Vital Signs (last 8hr) Date Time Temp Pulse Resp B/P (MAP) Pulse Ox O2 Delivery O2 Flow Rate FiO2 09/29/24 13:45 97.5 63 16 111/69 Room Air 09/29/24 12:00 97.9 69 15 127/64 92 Room Air 0.0 09/29/24 08:00 97.5 74 15 103/73 96 Room Air 0.0 09/29/24 08:00 96 Room Air* 0 21 LABS: Laboratory: Test 09/29/24 11:40 09/29/24 03:51 09/28/24 10:19 09/28/24 03:24 Range/Units Whole Blood Glucose 368 #H 70-110 MG/DL White Blood Count 18.6 H 4.8-10.8 K/uL Red Blood Count 2.94 L 4.50-6.20 MIL/uL Hemoglobin 8.4 L 14.0-18.0 g/dL Hematocrit 25.8 L 42-54 % Mean Corpuscular Volume 87.8 79-99 fL Mean Corpuscular Hemoglobin 28.6 27.0-33.0 pg Mean Corpuscular Hemoglobin Concent 32.6 32.0-36.0 g/dL Red Cell Distribution Width 13.1 11.0-15.5 % Platelet Count 233 130-400 K/uL Mean Platelet Volume 11.9 H 7.5-10.5 fL Nucleated Red Blood Cells 1.6 H 0.0-0.19 % Sodium Level 134 L 136-145 mmol/L Potassium Level 4.5 3.5-5.1 mmol/L Chloride Level 90 *L 101-111 mmol/L Carbon Dioxide Level 23 21-32 mmol/L Blood Urea Nitrogen 124 *H 7-18 mg/dL Creatinine 10.5 *H 0.5-1.3 mg/dL Glomerular Filtration Rate Calc 5 >90 mL/min Random Glucose 155 H 70-105 mg/dL Total Calcium 5.5 *L 8.5-10.1 mg/dL Magnesium Level 2.20 1.80-2.40 mg/dL Total Bilirubin 0.6 0.2-1.0 mg/dL Aspartate Amino Transf (AST/SGOT) 365 H 10-37 U/L Alanine Aminotransferase (ALT/SGPT) 2760 *H 12-78 U/L Alkaline Phosphatase 194 H 50-136 U/L Total Protein 5.5 L 6.0-8.3 g/dL Albumin 2.2 L 3.5-5.0 g/dL Ammonia 21 11-32 umol/L Immature Granulocyte % (Auto) 8.8 H 0-1 % Neutrophils (%) (Auto) 84.2 H 40.0-77.0 % Lymphocytes (%) (Auto) 1.7 L 21.0-51.0 % Monocytes (%) (Auto) 5.1 3.0-13.0 % Eosinophils (%) (Auto) 0.0 0.0-8.0 % Basophils (%) (Auto) 0.2 0.0-5.0 % Neutrophils # (Auto) 18.5 H 1.8-7.7 K/uL Lymphocytes # (Auto) 0.4 L 1.0-4.8 K/uL Monocytes # (Auto) 1.1 H 0.1-1.0 K/uL Eosinophils # (Auto) 0.00 0.00-0.70 K/uL Basophils # (Auto) 0.05 0.00-0.20 K/uL Absolute Immature Granulocyte (auto 1.94 H 0-1 K/uL Procalcitonin 17.06 H 0.05-0.5 ng/mL Current Medications Medications (Trade) Dose Ordered Sig/Sierra Route PRN Reason Start Time Stop Time Status Last Admin Dose Admin Acetaminophen (TYLenol 325MG TAB) 650 mg Q4H PRN PO MILD PAIN (1-3) 09/21/24 19:30 10/21/24 19:29 09/28/24 12:22 650 MG Acetaminophen (TYLenol 325MG TAB) 650 mg Q6H PRN PO TEMPERATURE GREATER THAN 101.5 09/21/24 19:30 10/21/24 19:29 Albumin Human 100 ml @ 0 mls/hr AD STAT IV 09/25/24 23:09 09/25/24 23:12 DC 09/25/24 23:17 100 MLS/HR Albuterol (DUOneb) 1 udvial [id number] IH 09/21/24 22:00 09/25/24 09:59 DC 09/25/24 06:43 1 UDVIAL Albuterol (DUOneb) 1 udvial [id number] IH 09/25/24 10:00 09/26/24 15:22 DC 09/26/24 11:17 1 UDVIAL Albuterol (DUOneb) 1 udvial [id number] PRN IH WHEEZING 09/26/24 15:30 10/21/24 21:59 Aspirin (Aspirin 81mg Ec Tab) 81 mg DAILY PO 09/22/24 09:00 10/22/24 08:59 09/29/24 09:10 81 MG Atorvastatin Calcium (LIPItor 20MG) 20 mg HS PO 09/23/24 21:00 09/27/24 10:38 DC 09/26/24 20:36 20 MG Atorvastatin Calcium (LIPItor 40MG) 40 mg HS PO 09/22/24 21:00 09/22/24 20:17 DC Azithromycin 250 ml @ 250 mls/hr Q24H IVPB 09/21/24 18:00 09/21/24 18:14 DC Cefepime HCl (MAXipime 1 GM vial) 1 gm Q24H IVPB 09/23/24 08:30 09/26/24 11:14 DC 09/25/24 08:36 1 GM Chlordiazepoxide HCl (LIBrium 25 MG CAP) 25 mg Q2H PRN PO ALCOHOL WITHDRAWAL PROTOCOL 09/22/24 20:30 09/29/24 20:29 09/28/24 23:59 25 MG Chlordiazepoxide HCl (LIBrium 25 MG CAP) 50 mg Q1H PRN PO ALCOHOL WITHDRAWAL PROTOCOL 09/22/24 20:30 09/29/24 20:29 Clopidogrel Bisulfate (plaVIX 75MG) 75 mg DAILY PO 09/24/24 09:00 09/26/24 07:14 DC 09/25/24 08:38 75 MG Dextrose/Sodium Chloride 1,000 ml @ 0 mls/hr AD IV 09/22/24 00:00 09/23/24 21:23 DC 09/22/24 09:49 150 MLS/HR Doxycycline Hyclate (Doxycycline Hyclate) 100 mg BID PO 09/21/24 21:00 10/01/24 20:59 09/29/24 09:10 100 MG Famotidine (Pepcid 20mg Vial) 10 mg DAILY IV 09/22/24 09:00 09/27/24 10:35 DC 09/27/24 09:09 10 MG Famotidine (Pepcid 20mg Tab) 10 mg Q48H PO 09/21/24 19:30 09/21/24 20:00 DC Ferrous Sulfate (Ferrous Sulfate) 325 mg DAILY PO 09/23/24 09:00 10/23/24 08:59 09/29/24 09:10 325 MG Fish Oil (Fish Oil 1000 Mg/Cap) 2,000 mg BID PO 09/22/24 21:00 10/22/24 20:59 09/29/24 09:10 2,000 MG Fluconazole/ Sodium Chloride (DiFLUCan 200 MG/ NS 100 ML) 200 mg Q24H IV 09/25/24 16:00 09/27/24 10:36 DC 09/26/24 14:38 200 MG Furosemide (LASix 40MG VIAL) 80 mg Q12H IV 09/22/24 21:00 09/26/24 15:22 DC 09/26/24 13:20 80 MG Gabapentin (NEURontin 100 mg CAP) 100 mg TID PO 09/24/24 21:00 10/24/24 20:59 09/29/24 09:10 100 MG Guaifenesin/ Dextromethorphan (RobiTUSSin DM 200/20MG 10ML) 10 ml Q4H PRN PO COUGH 09/21/24 19:30 10/21/24 19:29 09/23/24 22:06 10 ML Heparin Sodium (Porcine) (HEParin 5,000 UNIT VIAL) *calculation based on ACTUAL B... AD PRN IV HEPARIN PROTOCOL 09/21/24 19:30 09/26/24 07:14 DC Heparin Sodium (Porcine) (HEParin 5,000 UNIT VIAL) 10,000 unit AD IRRIG 09/27/24 14:00 10/27/24 13:59 09/27/24 17:18 10,000 UNIT Heparin Sodium/ Dextrose 250 ml @ 0 mls/hr Q6H IV 09/21/24 19:30 09/26/24 18:36 DC 09/25/24 04:13 14.7 MLS/HR Insulin Glargine (LANtus 100 UNITS/ML 10 ML VIAL) 10 units BID@0730,2100 SQ 09/22/24 21:00 09/26/24 11:15 DC 09/25/24 20:44 10 UNITS Insulin Glargine (LANtus 100 UNITS/ML 10 ML VIAL) 15 units BID@0730,2100 SQ 09/26/24 21:00 10/26/24 20:59 09/29/24 09:16 15 UNITS Insulin Human Regular (humuLIN R 100 UNIT/ML 3ML) INSULIN SLIDING SCAL... ACHS SQ 09/24/24 07:30 10/24/24 07:29 09/28/24 20:35 12 UNIT Insulin Human Regular 100 unit/ Sodium Chloride 101 ml @ 0 mls/hr PROTOCOL IV 09/21/24 20:00 09/23/24 21:20 DC 09/21/24 21:01 9.8 MLS/HR Insulin Human Regular 100 unit/ Sodium Chloride 101 ml @ 0 mls/hr PROTOCOL IV 09/22/24 00:00 09/22/24 00:03 DC Insulin Human Regular 100 unit/ Sodium Chloride 101 ml @ 0 mls/hr PROTOCOL IV 09/26/24 18:30 09/27/24 10:25 DC 09/26/24 18:36 10 MLS/HR Magnesium Sulfate 50 ml @ 0 mls/hr PROTOCOL IV 09/22/24 00:00 09/23/24 21:23 DC Magnesium Sulfate 50 ml @ 0 mls/hr PROTOCOL IV 09/26/24 18:30 09/27/24 10:25 DC Magnesium Sulfate 50 ml @ 0 mls/hr PROTOCOL PRN IV OTH 09/22/24 00:00 09/22/24 00:04 DC 09/21/24 23:52 25 MLS/HR Mannitol 245 ml @ 0 mls/hr AD IV 09/22/24 00:30 09/22/24 20:17 DC Mannitol 500 ml @ 0 mls/hr AD IV 09/22/24 00:30 09/22/24 14:33 DC Mannitol (Osmitrol 20% 250ml Bag) 49 gm AD IV 09/22/24 00:00 09/22/24 00:28 DC Methylprednisolone Sodium Succinate (Solu-medROL 40MG) 40 mg BID IVP 09/22/24 09:00 09/27/24 10:35 DC 09/26/24 20:37 40 MG Metoprolol Succinate (TopROL XL) 25 mg BID PO 09/26/24 09:00 10/26/24 08:59 09/29/24 09:10 25 MG Metoprolol Succinate (TopROL XL) 50 mg BID PO 09/24/24 21:00 09/26/24 07:14 DC 09/24/24 19:45 50 MG Metoprolol Tartrate (loprESSOR) 12.5 mg BID PO 09/22/24 21:00 09/24/24 16:38 DC 09/24/24 12:07 12.5 MG Miscellaneous Medication (Folic Acid/ Vitamin B Comp W-C (Ila-[place] Tablet)) 1 tab DAILY PO 09/23/24 09:00 09/22/24 15:56 DC Morphine Sulfate (morPHINE 2MG SYG) 2 mg Q4H PRN IVP SEVERE PAIN (7-10) 09/26/24 01:30 10/03/24 01:29 Multivitamins Therapeutic (Multivitamin Tablet) 1 tab DAILY PO 09/23/24 09:00 10/23/24 08:59 09/29/24 09:10 1 TAB Nifedipine (adALAT 30MG) 60 mg DAILY PO 09/23/24 09:00 09/28/24 12:01 DC 09/25/24 08:37 60 MG Nitroglycerin (Nitroglycerin 1gm Oint) 0.5 inch Q8H TD 09/21/24 19:30 09/27/24 10:34 DC 09/25/24 12:44 0.5 INCH Norepinephrine 250 ml @ 0 mls/hr AD PRN IV DIRECTED 09/26/24 01:30 09/27/24 10:34 DC 09/26/24 01:40 0 MLS/HR Ondansetron HCl (zoFRAN 4MG INJ) 4 mg Q6H PRN IVP NAUSEA/VOMITING 09/26/24 01:30 10/26/24 01:29 09/27/24 08:51 4 MG Oseltamivir Phosphate (Tamiflu) 75 mg DAILY PO 09/22/24 09:00 09/23/24 13:29 DC 09/23/24 08:38 75 MG Oseltamivir Phosphate (Tamiflu) 75 mg Q24H PO 09/26/24 17:00 09/27/24 17:01 DC 09/27/24 18:04 75 MG Oseltamivir Phosphate (Tamiflu) 75 mg QTUTHSA[DIALYSIS] PO 09/23/24 16:00 09/23/24 17:04 DC Oseltamivir Phosphate (Tamiflu) 75 mg QTUTHSA[DIALYSIS] PO 09/23/24 22:00 09/26/24 16:32 DC 09/25/24 16:09 75 MG Pantoprazole Sodium (PROTonix 40MG INJ) 40 mg BID IVP 09/27/24 21:00 10/27/24 20:59 09/29/24 09:09 40 MG Pharmacy Profile Note (Pharmacy Communication) 1 each ONCE MISC 09/23/24 13:00 09/23/24 13:25 DC Pharmacy Profile Note (Pharmacy Communication) 1 each ONCE MISC 09/23/24 21:30 09/24/24 07:08 DC Pharmacy Profile Note (Pharmacy Communication) 1 each PROTOCOL PRN MISC ETOH Withdrawal Score changes 09/22/24 20:30 09/29/24 20:29 Piperacillin Sod/ Tazobactam Sod 50 ml @ 12.5 mls/hr Q12H IV 09/21/24 21:00 09/23/24 08:06 DC 09/22/24 20:43 12.5 MLS/HR Piperacillin Sod/ Tazobactam Sod (Zosyn 3.375gm+NS 50ml) 3.375 gm Q12H IV 09/26/24 11:30 10/06/24 11:29 09/28/24 23:46 3.375 GM Potassium Chloride 20 meq/ Sodium Chloride 1,010 ml @ 0 mls/hr PROTOCOL IV 09/22/24 00:00 09/23/24 21:23 DC Potassium Chloride/Dextrose/ Sod Cl 1,000 ml @ 0 mls/hr AD IV 09/22/24 00:00 09/23/24 21:23 DC Prednisone (deltaSONE/ oraSONE 20MG TAB) 20 mg DAILY PO 09/28/24 09:00 10/01/24 08:59 09/29/24 09:10 20 MG Sodium Bicarbonate (Sodium Bicarbonate) 650 mg TID PO 09/24/24 09:00 09/27/24 10:34 DC 09/26/24 20:36 650 MG Sodium Chloride 250 ml @ 0 mls/hr Q0M IV 09/25/24 23:00 09/27/24 10:34 DC Sodium Chloride 1,000 ml @ 0 mls/hr ONCE IV 09/23/24 19:30 09/27/24 13:51 DC 09/26/24 12:15 1,000 MLS/HR Sodium Chloride 1,000 ml @ 0 mls/hr ONCE IV 09/27/24 14:30 09/27/24 13:51 DC Sodium Chloride 1,000 ml @ 0 mls/hr ONCE IV 09/27/24 15:00 10/27/24 14:59 09/27/24 15:11 333 MLS/HR Sodium Chloride 1,000 ml @ 100 mls/hr Q10H IV 09/21/24 19:30 09/27/24 10:34 DC 09/23/24 12:53 100 MLS/HR Sodium Chloride 1,000 ml @ 200 mls/hr PROTOCOL IV 09/22/24 00:00 09/23/24 21:23 DC Thiamine HCl 100 mg/Folic Acid 1 mg/Multivitamins/ Minerals 10 ml/ Sodium Chloride 1,011.2 ml @ 100 mls/ hr Q24H IV 09/22/24 20:30 09/25/24 06:37 DC 09/22/24 20:43 100 MLS/HR Vancomycin HCl 250 ml @ 125 mls/hr Q72H IV 09/22/24 20:30 09/23/24 08:04 DC 09/22/24 20:48 125 MLS/HR Vancomycin HCl (Vancomycin 500mg+NS 100ml Ivpb) 1,000 mg DAILY08 IV 09/23/24 08:00 09/22/24 20:26 DC Vancomycin HCl (Vancomycin 750mg) 750 mg MWFPHD IVPB 09/26/24 16:00 10/03/24 23:29 Hold Vancomycin HCl (Vancomycin 750mg) 750 mg Q24H IVPB 09/23/24 23:30 09/25/24 06:26 DC 09/24/24 22:43 750 MG Vitamin B Complex/ Vit C/Folic Acid (Nephrovite Tablet) 1 cap DAILY PO 09/23/24 09:00 10/23/24 08:59 09/29/24 09:10 1 CAP DIAGNOSTICS / RADIOLOGY: REASON: nstemi ORDERING PHYSICIAN: ARIELA CHOI MD PROCEDURE: CTCAWC - CT CARDIAC ANGIO W/CONT. CCTA CT OF THE CHEST WITH CONTRAST- CT Cardiac Angio co-interpretation This is done as part of the CT cardiac angiogram study. The interpretation of the coronary arteries will be done by foreign agent in a separate report. History: over-read Comparison: none CT Dose Index (CTDI): 77.90 mGy Dose Length Product (DLP): 493.40 total mGy PROTOCOL: Examination is done at 2.5 millimeter volumetric acquisition after contrast administration with Isovue 370, 100 cc IV, without complications. Photography is done at 5 millimeter thick intervals for the thorax. The examination begins above the heart and therefore the lung apices are incompletely included. The rest of the left lung is included but the right lung is only included up to its middle third. The periphery of the right lung is not included in the study. FINDINGS: The visualized part of the airway is preserved. The bony and soft tissue structures of the chest wall are unremarkable. The aorta is unremarkable. No mediastinal lymphadenopathy is seen. The appendix is distended and there are surrounding inflammatory changes and the possibility of acute appendicitis cannot be excluded. There is no evidence of pulmonary embolism in the visualized lung segments. The upper abdominal views are unremarkable. Impression: NoThe appendix is distended and there are surrounding inflammatory changes and the possibility of acute appendicitis cannot be excluded. ASSESSMENT: Hyperosmolar Hyperglycemic Syndrome POA NSTEMI POA Influenza bronchopneumonia with sepsis POA Acute Hypoxemic Respiratory Failure POA Acute on chronic renal failure with concern for ATN POA Metabolic acidosis POA Lactic acidosis POA CKD stage 4 POA Uncontrolled Diabetes POA Protein Calorie malnutrition POA PLAN: Downgraded to medical floor Continue broad-spectrum antibiotics Continue to trend WBC in Continue to replace electrolytes IV protocol Continue the patient on long-acting as well as insulin sliding scale Follow a.m. 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 ATTESTATION BY PHYSICIAN I have seen and examined the patient. I reviewed the documentation, medical decision making, and treatment plan as noted by the resident provider above. I agree with the findings and plan of care. Minerva Farley MD, NIHITHA MD Sep 29, 2024 15:31
[2024-09-29] MEDS: EPOETIN ALFA-EPBX (NON-ESRD) 10,000 UNIT/ML VIAL SQ ONE (16:48)
[2024-09-29] MEDS ORDERED: COMPOUND IV REFRIGERATED 1 EACH IVSOLN MISC PRN (17:00)
--- NOTE | 2024-09-29 18:15 | CARDIOLOGY ---
RAD REPORT: [facility] CT ANGIO RADIOLOGY REPORT: CORONARY CT ANGIOGRAPHY DATE: Sep 29, 2024 QUALITY: Excellent CLINICAL HISTORY AND INDICATION: [ abnormal lexiscan, NSTEMI, HFrEF ] TECHNIQUE: After obtaining a preliminary electric operator image, contrast imaging performed on an Aquillon [id number] scanner. A dedicated, limited window, coronary imaging protocol was used, with single breath-hold, retrospective ECG gating, and automated arrhythmia rejection. 100 cc of low osmolar contrast agent: Omnipaque 350 was delivered via a 18-gauge IV catheter in the right antecubital fossa, using a power injector and followed by 60 cc of normal saline bolus as a chaser. Collimated images were reformatted at 0.5 mm intervals, and sent to an offline independent workstation for interpretation, using 3D anatomic reconstructions: Curved multiplanar reconstructions, maximum intensity projections, and multiplanar imaging. 10 mg IV metoprolol was administered prior to scanning. 0.8 mg SL nitroglycerin was given. CORONARY ARTERY DESCRIPTIONS: The coronary arteries arise in normal position. Left main coronary artery: Normal caliber but short vessel that bifurcates into the LAD and LCx. No stenosis. Left anterior descending coronary artery: Normal caliber vessel and gives rise to diagonal and septal branches. There is noncalcified plaque in the proximal and mid LAD with 90% stenosis. The artery in this segment measures approximately 2.8 mm. Left circumflex coronary artery: Normal caliber, nondominant and gives rise to a large OM branch. There is noncalcified plaque in the proximal and mid LCx with 90% stenosis, this segment measures approximately 3.0 mm. The OM1 vessel is not well visualized due to poor contrast enhancement. Right coronary artery: Large, dominant vessel giving rise to the PL and PDA branches. The RCA is not well visualized due to poor contrast enhancement. CAD-RADs: 4A, severe stenosis. Thoracic Aorta: Normal diameter. Galina Gonzales MD Cardiovascular Disease [facility] GALINA GONZALES MD Sep 29, 2024 18:15
--- NOTE | 2024-09-29 18:36 | NUR ---
MILY MCKENNA SPOKE TO US RENAL PATIENT HAS CHAIR TTS AT 1120 SAID WOULD FAX OVER CONFIRMATION LETTER. PNDG CORONARY CTA. WBC 18.6 Addendum: 09/29/24 at 1843 by EVELYN SOUZA RN CM Amended: Links added.
[2024-09-29 22:45] LABS: HEMATOCRIT 30.5 % (42-54); MEAN CORPUSCULAR HEMOGLOBIN 29.3 pg (27.0-33.0); MEAN CORPUSCULAR HGB CONC 33.8 g/dL (32.0-36.0); MEAN CORPUSCULAR VOLUME 86.6 fL (79-99); NUCLEATED RED BLOOD CELLS 0.8 % (0.0-0.19); RED BLOOD CELL COUNT(AUTO) 3.52 MIL/uL (4.50-6.20); RED CELL DISTRIBUTION WIDTH 13.1 % (11.0-15.5)
--- NOTE | 2024-09-29 23:09 | PN ---
SUBJECTIVE: The patient has been evaluated and seen for dialysis and seen multiple times. No fever, chills or rigors. No cough, expectoration or hemoptysis. No abdominal pain. No nausea or vomiting. No chest pain. No orthopnea or PND. No joint swelling, redness or inflammation. Other systemic review is unchanged and unremarkable. PHYSICAL EXAMINATION: GENERAL: Pale, no other distress or deformities, lying in bed. VITAL SIGNS: Blood pressure is 146/83, pulse 77, respiratory rate is 18, afebrile. HEENT: Head is atraumatic, normocephalic. Pupils are round, reactive to light. Sclerae are anicteric. Conjunctivae not pale. Oral mucosa is not dry. NECK: Supple. No masses or bruits. Thyroid is palpable. Neck has no bruits. CHEST: Shows equal thoracic percussion note being resonant in all areas. CARDIAC: Regular rhythm, no rub, no S3, S4. No parasternal heave. LABORATORY DATA: We have reviewed the labs in detail. Old records reviewed. PROBLEMS: Renal failure, anemia, multiple other comorbidities, underlying end-stage renal disease, diabetes, peripheral vascular disease and relatively low blood pressure. PLAN: To continued monitoring. Follow up on electrolytes. Intake, output and weight will be monitored. The patient has been treated with antibiotics and close followup. The patient was evaluated and seen for dialysis multiple times. Overall condition is critical and guarded. I have discussed with other team physicians in detail and we will be monitoring closely. Thank you for this patient. TID: [id number] RECEIPT: [id number]
--- NOTE | 2024-09-29 23:12 | PN ---
SUBJECTIVE: This patient has been evaluated and seen for dialysis and seen several times. The patient is critically ill. The patient is somewhat hypotensive. Intake, output and weight will be monitored. Condition is critical, guarded. Seen several times today. I will monitor the overall status closely. Thank you for this patient. The patient is hypotensive intermittently and will need followup, has been on multiple antibiotics. TID: [id number] RECEIPT: [id number]
--- NOTE | 2024-09-30 01:35 | NUR ---
NURSING NOTES PT. WAS WORRIED AND ANXIOUS ABOUT HIS BLOOD SUGAR EARLIER AND REQUESTED A RECHECK,AND IT WAS 532. PT. ASYMPTOMATIC. EDNA PICKARD NP WAS NOTIFIED. NO NEW ORDER MADE. HUMULIN R 20 UNITS PER SLIDING SCALE AND LANTUS 15 UNITS WERE GIVEN EARLIER FOR BS OF 482. WILL CONTINUE TO MONITOR.
[2024-09-30 03:46] VITALS: BP 138/91; PULSE 74; RESP 19; TEMP 98
[2024-09-30 05:38] LABS: BASOPHILS # (AUTO) 0.06 K/uL (0.00-0.20); BASOPHILS % (AUTO) 0.4 % (0.0-5.0); EOSINOPHILS # (AUTO) 0.03 K/uL (0.00-0.70); EOSINOPHILS % (AUTO) 0.2 % (0.0-8.0); HEMATOCRIT 28.7 % (42-54); IMMATURE GRANULOCYTE ABSOLUTE 1.06 K/uL (0-1); LYMPHOCYTES # (AUTO) 0.4 K/uL (1.0-4.8); LYMPHOCYTES % (AUTO) 2.4 % (21.0-51.0); MEAN CORPUSCULAR HEMOGLOBIN 29.1 pg (27.0-33.0); MEAN CORPUSCULAR HGB CONC 33.4 g/dL (32.0-36.0); MONOCYTES % (AUTO) 5.9 % (3.0-13.0); NEUTROPHILS # (AUTO) 14.2 K/uL (1.8-7.7); NEUTROPHILS % (AUTO) 84.7 % (40.0-77.0); PLATELET COUNT (AUTO) 258 K/uL (130-400); RED CELL DISTRIBUTION WIDTH 13.2 % (11.0-15.5); WHITE BLOOD COUNT (AUTO) 16.7 K/uL (4.8-10.8)
[2024-09-30 06:24] LABS: ALBUMIN 2.2 g/dL (3.5-5.0); BILIRUBIN,TOTAL 0.6 mg/dL (0.2-1.0); PHOSPHORUS 9.7 mg/dL (2.5-4.9); TOTAL PROTEIN, SERUM 5.5 g/dL (6.0-8.3)
[2024-09-30 06:36] LABS: CREATININE 9.3 mg/dL (0.5-1.3)
[2024-09-30 08:00] VITALS: BP 136/76; PULSE 70; RESP 16; TEMP 97.8; O2SAT 95
--- NOTE | 2024-09-30 08:00 | NUR ---
DR CHOI HERE TO SEE PATIENT. PER DR CHOI PATIENT WILL NEED A CORONARY ANGIOGRAM D/T RESULTS FROM CORONARY CTA. PER PATIENT HE WANTS TO GO HOME AND DO PROCEDURE OUTPATIENT.
--- NOTE | 2024-09-30 08:37 | PN ---
[facility] PROGRESS NOTE Date Patient Seen: Sep 30, 2024 Time of Visit: 08:27 Problem List: NSTEMI Volume overload 2/2 progression of ESRD Influenza A, Tamiflu started on 09/22/2024 Bilateral pneumonia HHS and DKA, on Insulin gtt HTN HLD DM type II 2D echo on 04/06/2024 demonstrated an EF of 45-50% Lexiscan stress test on 04/07/2024 demonstrated a fixed basal mid inferolateral and basal inferior defect with no reversible ischemia Interval History: [No acute events overnight. The patient underwent coronary CTA that showed severe stenosis ( Prox-mid LAD 90 % stenosis, Prox and mid LCx 90 % stenosis ) CAD -RAD 4 A. An extensive discussion took place with the patient regarding the need to proceed with a coronary angiogram , all risks were explained , the patient verbalized understanding but at this time is hesitant to move forward with the procedure and would like to defer , and re schedule for an out patient angiogram. Unfortunately, pt can not be DCed at this time as he is pending permanent HD access site. Pt was evaluated by CV surgery for AVF, but given his CTA findings CV surgery will await coronary angiogram prior to proceeding with AVF placement. Physical Examination: GENERAL: No acute distress. HEAD: Normal with no signs of head trauma. EYES: PERRLA, EOMI, conjunctiva and sclera normal. ENT: Hearing grossly intact, normal oropharynx. NECK: Supple without JVD. There is no tenderness, lymphadenopathy, or masses. No thyromegaly. Normal carotid upstrokes without bruits. LUNGS: Crackles to bases bilaterally. HEART: Tachycardic rate and normal rhythm. Normal S1 and S2 without murmurs, gallop or rub. VASC: BLE 2+ pitting edema ABD: Bowel sounds normal, soft, nontender, no masses, no organomegaly. No audible bruits. : Not examined LYMPH: No lymphadenopathy noted. EXT: No clubbing, cyanosis 2+ bilateral lower extremity pitting edema SKIN: No rashes or lesions noted. NEURO: Awake, alert, and oriented x3. No focal sensory or strength deficits noted. Laboratory: [ ] Hematology Labs: Test 09/30/24 04:56 Range/Units White Blood Count 16.7 H 4.8-10.8 K/uL Red Blood Count 3.30 L 4.50-6.20 MIL/uL Hemoglobin 9.6 L 14.0-18.0 g/dL Hematocrit 28.7 L 42-54 % Mean Corpuscular Volume 87.0 79-99 fL Mean Corpuscular Hemoglobin 29.1 27.0-33.0 pg Mean Corpuscular Hemoglobin Concent 33.4 32.0-36.0 g/dL Red Cell Distribution Width 13.2 11.0-15.5 % Platelet Count 258 130-400 K/uL Mean Platelet Volume 11.9 H 7.5-10.5 fL Immature Granulocyte % (Auto) 6.4 H 0-1 % Neutrophils (%) (Auto) 84.7 H 40.0-77.0 % Lymphocytes (%) (Auto) 2.4 L 21.0-51.0 % Monocytes (%) (Auto) 5.9 3.0-13.0 % Eosinophils (%) (Auto) 0.2 0.0-8.0 % Basophils (%) (Auto) 0.4 0.0-5.0 % Neutrophils # (Auto) 14.2 H 1.8-7.7 K/uL Lymphocytes # (Auto) 0.4 L 1.0-4.8 K/uL Monocytes # (Auto) 1.0 0.1-1.0 K/uL Eosinophils # (Auto) 0.03 0.00-0.70 K/uL Basophils # (Auto) 0.06 0.00-0.20 K/uL Absolute Immature Granulocyte (auto 1.06 H 0-1 K/uL Nucleated Red Blood Cells 1.0 H 0.0-0.19 % Chemistry Labs: Test 09/30/24 04:59 09/30/24 04:56 09/29/24 23:57 09/29/24 03:51 Range/Units Whole Blood Glucose 477 *H 70-110 MG/DL Sodium Level 132 L 136-145 mmol/L Potassium Level 5.0 3.5-5.1 mmol/L Chloride Level 92 L 101-111 mmol/L Carbon Dioxide Level 22 21-32 mmol/L Blood Urea Nitrogen 98 *H 7-18 mg/dL Creatinine 9.3 *H 0.5-1.3 mg/dL Glomerular Filtration Rate Calc 6 >90 mL/min Random Glucose 464 *H 70-105 mg/dL Total Calcium 5.8 *L 8.5-10.1 mg/dL Phosphorus Level 9.7 H 2.5-4.9 mg/dL Total Bilirubin 0.6 0.2-1.0 mg/dL Aspartate Amino Transf (AST/SGOT) 164 H 10-37 U/L Alanine Aminotransferase (ALT/SGPT) 1912 *H 12-78 U/L Alkaline Phosphatase 227 H 50-136 U/L Total Protein 5.5 L 6.0-8.3 g/dL Albumin 2.2 L 3.5-5.0 g/dL Bedside Glucose Comment Notified Nurse Magnesium Level 2.20 1.80-2.40 mg/dL Test 09/28/24 10:19 Range/Units Ammonia 21 11-32 umol/L Diagnostics / Radiology: [Copy/Paste Echos/Imaging Report here] Impression and Plan: NSTEMI Volume overload 2 progression of ESRD Influenza A, Tamiflu started on 09/22/2024 Bilateral pneumonia HHS and DKA, on Insulin gtt HTN HLD DM type II 2D echo on 04/06/2024 demonstrated an EF of 45-50% Lexiscan stress test on 04/07/2024 demonstrated a fixed basal mid inferolateral and basal inferior defect with no reversible ischemia NSTEMI Troponin of 5531, 5716, 8278, and 6392 EKG demonstrated sinus tachycardia with a heart rate of 121 beats per minute, LAE, and diffuse ischemia On heparin drip per ACS protocol, started. Patient has completed more than 48 hours of IV heparin and has been since discontinued -patient require a total of 12 months of dap (aspirin 81 mg daily/Plavix 75 mg daily) in addition to Lipitor 40 mg q.h.s and Toprol XL 25 mg daily -TTE showed severely hypokinetic inferior wall, EF 35-40 %, prior Lexiscan stress test shows fixed defects in the inferior wall . -Patient is currently flu positive and his luekocytosis continues to improve on IV abx. Volume reduction via HD as patient is oliguric. -The patient underwent coronary CTA that showed severe stenosis ( Prox-mid LAD 90 % stenosis, Prox and mid LCx 90 % stenosis ) CAD -RAD 4 A. -An extensive discussion took place with the patient regarding the need to proceed with a coronary angiogram , all risks were explained , the patient ladarius balized understanding but at this time is hesitant to move forward with the procedure and would like to defer , and re schedule for an out patient angiogram, unfortunately prior to DC he needs AVF placement. CV surgery following and rec to proceed with Coronary angiogram with possible PCI prior to AVF placement -We will plan for Coronary angiogram with possible PCI tomorrow AM. PLease consent and make pt NPO after midnight. -All risks of procedure were explained in great detail and pt agrees to proceed. #Acute on chronic HFrEF: Presumed to be ischemic cardiomyopathy, LVEF 35-40% with inferior wall hypokinesis. NYHA III, volume overloaded, stage C Prior Lexiscan stress test with fixed inferior defect suggestive of scar Given his soft systolic blood pressures electrolyte derangements ( hyperkalemia ) we will defer use of ACEi/ARBs /aldactone GDMT : Continue Toprol-XL 25 mg b.i.d. Strict I's and O's and daily weights. Volume reduction via HD, pending for HD tomorrow Nephrology is following, recommendations appreciated Thank you for this consult cardiology will continue to follow along for GDMT optimization and coronary angiogram ATTESTATION BY PHYSICIAN I have seen and examined the patient, reviewed the above documentation, participated in medical decision making, made necessary modifications, and agree with the treatment plan as documented by my mid-level provider above. MD JIMBO Rick,ARIELA Casper MD Sep 30, 2024 08:37
--- NOTE | 2024-09-30 08:45 | NUR ---
DR ROSALES HERE TO SEE PATIENT REGARDING DIALYSIS ACCESS. PER DR ROSALES HE CAN NOT DO HIS PROCEDURE UNTIL PATIENT HAS PROCEDURE DONE WITH DR CHOI. PATIENT CURRENTLY HAS A JEFFY IN PLACE FOR DIALYSIS. CAN NOT BE D/C HOME WITH JEFFY. DR ARIELA CHOI NOTIFIED.
[2024-09-30] MEDS: cloPIDOgrel 75MG TAB PO SCH (08:49)
[2024-09-30] MEDS: SODIUM BICARB 50MEQ 50ML VIAL IV ONE (10:28)
--- NOTE | 2024-09-30 11:00 | NUR ---
RECEIVED CALL FROM DR CHOI TO PLACE ORDERS TO HAVE CORONARY ANGIOGRAM DONE WITH [facility] TOMORROW AM. PATIENT EDUCATED ON NEW ORDER AND HAS CONSENTED TO HAVE PROCEDURE DONE IN AM. PATIENT TO BE NPO AT MIDNIGHT TONIGHT. PATIENT TO RECEIVE DIALYSIS AFTER PROCEDURE.
[2024-09-30 11:20] VITALS: BP 109/65; PULSE 76; RESP 17; TEMP 97.9
--- NOTE | 2024-09-30 14:00 | PN ---
[facility] PROGRESS NOTE Date of Service: Sep 30, 2024 Time of Service: 13:59 SUBJECTIVE: This is a 49-year-old male with past medical history of CKD not on hemodialysis, diabetes, hypertension, hyperlipidemia and obesity who presents to the ED for complaints of cough and chest congestion which started last Sunday and getting worse on Sunday. Patient reports coughing up pinkish colored thick phlegm, loss of appetite and on Sunday started not eating unable to sleep, vomiting and having chest pain triggered by persistent coughing he said.Patient reports having soreness due to hard cough he said.Patient reports having sweeling on both lower extremities and started having shortness of breath and today he started having non bloody diarrhea. Neela was at bedside during my evaluation. Upon arrival to ER a STEMI alert was activated per ER MD and spoke to Delivery Agent educational consultant and as per report patient is possibly going to cathlab tomorrow and patient is going to be started on Heparin and Insulin drip. Seen and examined patient in the Er awake,alert and coherent,appears weak looking.Patient denies fever,palpitation ,dizziness ,sore throat and headache. Latest vital signs temperature 98.1, heart rate 108, respiration 30 blood pressure 130/68 saturation 91% on 4 L nasal cannula. Labs: WBC 11.2, hemoglobin 9, hematocrit 27, platelet count 238, neutrophils 88. PH 7.32, CO2 26, PO2 49.6, bicarb 13, PO2 80 base excess -11.3. Sodium 129, potassium 5.9, chloride 93, CO2 19, BUN 88, creatinine 8.2, GFR seven glucose 876 , lactic acid 3.0-3.2, troponin 5531 albumin 2.1. Influenza A positive influenza B negative SARs COVID negative. Strep A negative. Chest x-ray result revealed extensive bilateral mid to lower lung pneumonia right greater than left. First ECG result revealed sinus tachycardia heart rate 121 probable left atrial enlargement repolarization abnormal suggest ischemia diffuse leads ST-elevation consider anterior injury. Second EKG result revealed sinus tachycardia repolarization abnormality suggest ischemia diffuse leads borderline ST elevation anterior leads heart rate 108. While in the ER patient received Tamiflu 75 mg p.o., 1 L NS bolus, Lopressor 5 mg IV, insulin 10 units IV, Zosyn IV, Zofran 4 mg IV and Phenergan codeine 10 mL p.o. we will admit patient in ICU for further medical management. 09/29/24 Patient was seen and examined at bedside. No acute events overnight. Today his vitals are blood pressure 103/73, pulse rate respiratory rate 15 and SpO2 96% on room air and tolerating well, T-max 97.5. He is scheduled for hemodialysis today. And a abdominal ultrasound was performed yesterday, no evidence of gallstones or hydronephrosis, was done to rule out liver cirrhosis due to elevated liver enzymes. AST came down from 6752 to 365, ALT from 4300 to 2760, ALP from 233-194, enzymes were elevated probably due to shock liver. His white count has been coming down from 22 to 18.6. Del Cid's catheter was discontinued last night, strict input and output monitoring he is being maintained. CT showed a distended appendix with surrounding inflammatory changes and possibility of acute appendicitis can not be excluded but patient denies any lower quadrant pain or nausea or vomitings or McBurney point tenderness. We will follow pulmonology, Nephrology and Cardiology recommendations. 09/30/24 Patient was seen and examined at bedside. No acute events overnight. Coronary angiogram showed noncalcified plaque in the proximal and mid LAD with 90% stenosis and a noncalcified plaque in the proximal and mid left circumflex with 90% stenosis. He is planned for catheterization the procedure in the morning with Dr. Gonzales tomorrow. Patient needs PermCath before he can be discharged home for dialysis. Dr. Page will work on PermCath after PCI when the patient is stable. He was started on Plavix and atorvastatin yesterday. Will replete his calcium and give him a dose of vitamin-D. Lactic acid was elevated this morning but came down to normal. 3200 mL was ultrafiltered yesterday and he tolerated it well. REVIEW OF SYSTEMS CONSTITUTIONAL: Denies fevers, chills, or night sweats. No unintentional weight loss reported. NEUROLOGICAL: Denies headache, amaurosis fugax, motor weakness, sensory deficit, vertigo/spinning sensation, gait abnormalities, or tremors. ENT: No hearing loss, otalgia, otorrhea, rhinitis, rhinorrhea, hoarseness, or sore throat. CARDIOVASCULAR: Complaints of orthopnea shortness of breaths and chest pain Denies paroxysmal nocturnal dyspnea, palpitations, life-threatening arrhythmias, claudication. PULMONARY: Complaints of productive cough , pleuritic chest pain and shortness of breaths SLEEP: Complains of unable to sleep Denies morning headaches, daytime somnolence or napping. Denies waking from sleep. Denies knowledge of snoring. GASTROINTESTINAL: Complaints of loss of appetite, vomiting and diarrhea Denies any type of dysphagia to either liquids or solids. Denies nausea, vomiting, pyrosis, early satiety, abdominal pain, diarrhea, constipation, or changes in stool consistency or caliber. Denies coffee-ground emesis, hematemesis, hematochezia, or melanotic stools. GENITOURINARY: Denies frequency, urgency, nocturia, hematuria or incontinence (Storage/Irritative symptoms.) Low urinary stream, straining to void, urinary intermittency or hesitancy, splitting of the voiding stream, terminal dribbling. ENDOCRINOLOGIC: Denies polyuria, polydipsia, polyphagia or heat/cold intolerances. Patient reports not taking medications for diabetes because he was not eating. HEMATOLOGIC: Denies thrombophilia/previous clots, or coagulopathy/bleeding disorders. ONCOLOGIC: Denies personal history of malignancy. DERMATOLOGIC: Denies rashes or pruritus. PSYCHIATRIC: Denies any suicidal or homicidal ideation. Denies hallucinations. PHYSICAL EXAM GENERAL APPEARANCE: The patient is awake, alert, and oriented appears generally weak NEUROLOGICAL: Cranial nerves II-XII grossly intact. Motor is 5/5 in bilateral upper and lower extremities proximal to distal. No sensory deficits. HEENT: Face is symmetric. Pupils are equal and reactive. Extraocular movements are intact. NECK: Supple. No JVD. No thyromegaly. No submental, submandibular, pre- /postauricular, occipital or supraclavicular lymphadenopathy. CHEST: Normal chest expansion. No Telemetry. LUNGS: . Diminished lung sounds to bilateral lung james CARDIOVASCULAR: Tachycardic Regular. S1 and S2 normal. No appreciable rubs, murmurs or gallops. ABDOMEN: Round and firmed There is no rebound, voluntary guarding, or rigidity. : Deferred. No Del Cid. EXTREMITIES: Bilateral lower extremity edema No clubbing. Good capillary refill. SKIN: No skin breakdown. Vital Signs (last 8hr) Date Time Temp Pulse Resp B/P (MAP) Pulse Ox O2 Delivery O2 Flow Rate FiO2 09/30/24 11:20 97.9 76 17 109/65 94 Room Air 0.0 09/30/24 08:00 97.9 70 16 136/76 95 Room Air 0.0 09/30/24 08:00 95 Room Air* 0 21 LABS: Laboratory: Test 09/30/24 12:56 09/30/24 10:42 09/30/24 09:27 09/30/24 04:56 Range/Units Lactic Acid Level 2.0 0.8-2.5 mmol/L Whole Blood Glucose 434 *H 70-110 MG/DL Bedside Glucose Comment Protocol Initiated Whole Blood Ketones Quantitative 0.1 0.0-0.6 mmol/L White Blood Count 16.7 H 4.8-10.8 K/uL Red Blood Count 3.30 L 4.50-6.20 MIL/uL Hemoglobin 9.6 L 14.0-18.0 g/dL Hematocrit 28.7 L 42-54 % Mean Corpuscular Volume 87.0 79-99 fL Mean Corpuscular Hemoglobin 29.1 27.0-33.0 pg Mean Corpuscular Hemoglobin Concent 33.4 32.0-36.0 g/dL Red Cell Distribution Width 13.2 11.0-15.5 % Platelet Count 258 130-400 K/uL Mean Platelet Volume 11.9 H 7.5-10.5 fL Immature Granulocyte % (Auto) 6.4 H 0-1 % Neutrophils (%) (Auto) 84.7 H 40.0-77.0 % Lymphocytes (%) (Auto) 2.4 L 21.0-51.0 % Monocytes (%) (Auto) 5.9 3.0-13.0 % Eosinophils (%) (Auto) 0.2 0.0-8.0 % Basophils (%) (Auto) 0.4 0.0-5.0 % Neutrophils # (Auto) 14.2 H 1.8-7.7 K/uL Lymphocytes # (Auto) 0.4 L 1.0-4.8 K/uL Monocytes # (Auto) 1.0 0.1-1.0 K/uL Eosinophils # (Auto) 0.03 0.00-0.70 K/uL Basophils # (Auto) 0.06 0.00-0.20 K/uL Absolute Immature Granulocyte (auto 1.06 H 0-1 K/uL Nucleated Red Blood Cells 1.0 H 0.0-0.19 % Sodium Level 132 L 136-145 mmol/L Potassium Level 5.0 3.5-5.1 mmol/L Chloride Level 92 L 101-111 mmol/L Carbon Dioxide Level 22 21-32 mmol/L Blood Urea Nitrogen 98 *H 7-18 mg/dL Creatinine 9.3 *H 0.5-1.3 mg/dL Glomerular Filtration Rate Calc 6 >90 mL/min Random Glucose 464 *H 70-105 mg/dL Total Calcium 5.8 *L 8.5-10.1 mg/dL Phosphorus Level 9.7 H 2.5-4.9 mg/dL Total Bilirubin 0.6 0.2-1.0 mg/dL Aspartate Amino Transf (AST/SGOT) 164 H 10-37 U/L Alanine Aminotransferase (ALT/SGPT) 1912 *H 12-78 U/L Alkaline Phosphatase 227 H 50-136 U/L Total Protein 5.5 L 6.0-8.3 g/dL Albumin 2.2 L 3.5-5.0 g/dL Test 09/29/24 03:51 Range/Units Magnesium Level 2.20 1.80-2.40 mg/dL Current Medications Medications (Trade) Dose Ordered Sig/Sierra Route PRN Reason Start Time Stop Time Status Last Admin Dose Admin Acetaminophen (TYLenol 325MG TAB) 650 mg Q4H PRN PO MILD PAIN (1-3) 09/21/24 19:30 10/21/24 19:29 09/30/24 01:32 650 MG Acetaminophen (TYLenol 325MG TAB) 650 mg Q6H PRN PO TEMPERATURE GREATER THAN 101.5 09/21/24 19:30 10/21/24 19:29 Albumin Human 100 ml @ 0 mls/hr AD STAT IV 09/25/24 23:09 09/25/24 23:12 DC 09/25/24 23:17 100 MLS/HR Albuterol (DUOneb) 1 udvial [id number] 09/21/24 22:00 09/25/24 09:59 DC 09/25/24 06:43 1 UDVIAL Albuterol (DUOneb) 1 udvial [id number] 09/25/24 10:00 09/26/24 15:22 DC 09/26/24 11:17 1 UDVIAL Albuterol (DUOneb) 1 udvial [id number] PRN IH WHEEZING 09/26/24 15:30 10/21/24 21:59 Aspirin (Aspirin 81mg Ec Tab) 81 mg DAILY PO 09/22/24 09:00 10/22/24 08:59 09/30/24 08:50 81 MG Atorvastatin Calcium (LIPItor 20MG) 20 mg HS PO 09/23/24 21:00 09/27/24 10:38 DC 09/26/24 20:36 20 MG Atorvastatin Calcium (LIPItor 40MG) 40 mg HS PO 09/22/24 21:00 09/22/24 20:17 DC Atorvastatin Calcium (LIPItor 40MG) 40 mg HS PO 09/30/24 21:00 10/30/24 20:59 Azithromycin 250 ml @ 250 mls/hr Q24H IVPB 09/21/24 18:00 09/21/24 18:14 DC Calcium Carbonate (Oyster Shell Ca 500mg Tab) 1,000 mg TID PO 09/30/24 14:00 10/30/24 13:59 Cefepime HCl (MAXipime 1 GM vial) 1 gm Q24H IVPB 09/23/24 08:30 09/26/24 11:14 DC 09/25/24 08:36 1 GM Chlordiazepoxide HCl (LIBrium 25 MG CAP) 25 mg Q2H PRN PO ALCOHOL WITHDRAWAL PROTOCOL 09/22/24 20:30 09/29/24 20:29 DC 09/28/24 23:59 25 MG Chlordiazepoxide HCl (LIBrium 25 MG CAP) 50 mg Q1H PRN PO ALCOHOL WITHDRAWAL PROTOCOL 09/22/24 20:30 09/29/24 20:29 DC Clopidogrel Bisulfate (plaVIX 75MG) 75 mg DAILY PO 09/24/24 09:00 09/26/24 07:14 DC 09/25/24 08:38 75 MG Clopidogrel Bisulfate (plaVIX 75MG) 75 mg DAILY PO 09/30/24 09:00 10/30/24 08:59 09/30/24 08:49 75 MG Dextrose/Sodium Chloride 1,000 ml @ 0 mls/hr AD IV 09/22/24 00:00 09/23/24 21:23 DC 09/22/24 09:49 150 MLS/HR Doxycycline Hyclate (Doxycycline Hyclate) 100 mg BID PO 09/21/24 21:00 10/01/24 20:59 09/30/24 08:50 100 MG Epoetin Moses-epbx (Retacrit) 10,000 unit QMOWEFR SQ 10/01/24 09:00 10/31/24 08:59 Famotidine (Pepcid 20mg Vial) 10 mg DAILY IV 09/22/24 09:00 09/27/24 10:35 DC 09/27/24 09:09 10 MG Famotidine (Pepcid 20mg Tab) 10 mg Q48H PO 09/21/24 19:30 09/21/24 20:00 DC Ferrous Sulfate (Ferrous Sulfate) 325 mg DAILY PO 09/23/24 09:00 10/23/24 08:59 09/30/24 08:50 325 MG Fish Oil (Fish Oil 1000 Mg/Cap) 2,000 mg BID PO 09/22/24 21:00 10/22/24 20:59 09/30/24 08:50 2,000 MG Fluconazole/ Sodium Chloride (DiFLUCan 200 MG/ NS 100 ML) 200 mg Q24H IV 09/25/24 16:00 09/27/24 10:36 DC 09/26/24 14:38 200 MG Furosemide (LASix 40MG VIAL) 80 mg Q12H IV 09/22/24 21:00 09/26/24 15:22 DC 09/26/24 13:20 80 MG Gabapentin (NEURontin 100 mg CAP) 100 mg TID PO 09/24/24 21:00 10/24/24 20:59 09/30/24 08:50 100 MG Guaifenesin/ Dextromethorphan (RobiTUSSin DM 200/20MG 10ML) 10 ml Q4H PRN PO COUGH 09/21/24 19:30 10/21/24 19:29 09/23/24 22:06 10 ML Heparin Sodium (Porcine) (HEParin 5,000 UNIT VIAL) *calculation based on ACTUAL B... AD PRN IV HEPARIN PROTOCOL 09/21/24 19:30 09/26/24 07:14 DC Heparin Sodium (Porcine) (HEParin 5,000 UNIT VIAL) 10,000 unit AD IRRIG 09/27/24 14:00 10/27/24 13:59 09/27/24 17:18 10,000 UNIT Heparin Sodium/ Dextrose 250 ml @ 0 mls/hr Q6H IV 09/21/24 19:30 09/26/24 18:36 DC 09/25/24 04:13 14.7 MLS/HR Insulin Glargine (LANtus 100 UNITS/ML 10 ML VIAL) 10 units BID@0730,2100 SQ 09/22/24 21:00 09/26/24 11:15 DC 09/25/24 20:44 10 UNITS Insulin Glargine (LANtus 100 UNITS/ML 10 ML VIAL) 15 units BID@0730,2100 SQ 09/26/24 21:00 10/26/24 20:59 09/30/24 07:03 15 UNITS Insulin Human Regular (humuLIN R 100 UNIT/ML 3ML) INSULIN SLIDING SCAL... ACHS SQ 09/24/24 07:30 10/24/24 07:29 09/30/24 12:14 20 UNIT Insulin Human Regular 100 unit/ Sodium Chloride 101 ml @ 0 mls/hr PROTOCOL IV 09/21/24 20:00 09/23/24 21:20 DC 09/21/24 21:01 9.8 MLS/HR Insulin Human Regular 100 unit/ Sodium Chloride 101 ml @ 0 mls/hr PROTOCOL IV 09/22/24 00:00 09/22/24 00:03 DC Insulin Human Regular 100 unit/ Sodium Chloride 101 ml @ 0 mls/hr PROTOCOL IV 09/26/24 18:30 09/27/24 10:25 DC 09/26/24 18:36 10 MLS/HR Magnesium Sulfate 50 ml @ 0 mls/hr PROTOCOL IV 09/22/24 00:00 09/23/24 21:23 DC Magnesium Sulfate 50 ml @ 0 mls/hr PROTOCOL IV 09/26/24 18:30 09/27/24 10:25 DC Magnesium Sulfate 50 ml @ 0 mls/hr PROTOCOL PRN IV OTH 09/22/24 00:00 09/22/24 00:04 DC 09/21/24 23:52 25 MLS/HR Mannitol 245 ml @ 0 mls/hr AD IV 09/22/24 00:30 09/22/24 20:17 DC Mannitol 500 ml @ 0 mls/hr AD IV 09/22/24 00:30 09/22/24 14:33 DC Mannitol (Osmitrol 20% 250ml Bag) 49 gm AD IV 09/22/24 00:00 09/22/24 00:28 DC Methylprednisolone Sodium Succinate (Solu-medROL 40MG) 40 mg BID IVP 09/22/24 09:00 09/27/24 10:35 DC 09/26/24 20:37 40 MG Metoprolol Succinate (TopROL XL) 25 mg BID PO 09/26/24 09:00 10/26/24 08:59 09/30/24 08:50 25 MG Metoprolol Succinate (TopROL XL) 50 mg BID PO 09/24/24 21:00 09/26/24 07:14 DC 09/24/24 19:45 50 MG Metoprolol Tartrate (loprESSOR) 12.5 mg BID PO 09/22/24 21:00 09/24/24 16:38 DC 09/24/24 12:07 12.5 MG Miscellaneous Medication (Folic Acid/ Vitamin B Comp W-C (Ila-[place] Tablet)) 1 tab DAILY PO 09/23/24 09:00 09/22/24 15:56 DC Morphine Sulfate (morPHINE 2MG SYG) 2 mg Q4H PRN IVP SEVERE PAIN (7-10) 09/26/24 01:30 10/03/24 01:29 Multivitamins Therapeutic (Multivitamin Tablet) 1 tab DAILY PO 09/23/24 09:00 10/23/24 08:59 09/30/24 08:50 1 TAB Nifedipine (adALAT 30MG) 60 mg DAILY PO 09/23/24 09:00 09/28/24 12:01 DC 09/25/24 08:37 60 MG Nitroglycerin (Nitroglycerin 1gm Oint) 0.5 inch Q8H TD 09/21/24 19:30 09/27/24 10:34 DC 09/25/24 12:44 0.5 INCH Norepinephrine 250 ml @ 0 mls/hr AD PRN IV DIRECTED 09/26/24 01:30 09/27/24 10:34 DC 09/26/24 01:40 0 MLS/HR Ondansetron HCl (zoFRAN 4MG INJ) 4 mg Q6H PRN IVP NAUSEA/VOMITING 09/26/24 01:30 10/26/24 01:29 2/1/25 08:51 4 MG Oseltamivir Phosphate (Tamiflu) 75 mg DAILY PO 09/22/24 09:00 09/23/24 13:29 DC 09/23/24 08:38 75 MG Oseltamivir Phosphate (Tamiflu) 75 mg Q24H PO 09/26/24 17:00 09/27/24 17:01 DC 09/27/24 18:04 75 MG Oseltamivir Phosphate (Tamiflu) 75 mg QTUTHSA[DIALYSIS] PO 09/23/24 16:00 09/23/24 17:04 DC Oseltamivir Phosphate (Tamiflu) 75 mg QTUTHSA[DIALYSIS] PO 09/23/24 22:00 09/26/24 16:32 DC 09/25/24 16:09 75 MG Pantoprazole Sodium (PROTonix 40MG INJ) 40 mg BID IVP 09/27/24 21:00 10/27/24 20:59 09/30/24 08:48 40 MG Pharmacy Profile Note (Pharmacy Communication) 1 each ONCE MISC 09/23/24 13:00 09/23/24 13:25 DC Pharmacy Profile Note (Pharmacy Communication) 1 each ONCE MISC 09/23/24 21:30 09/24/24 07:08 DC Pharmacy Profile Note (Pharmacy Communication) 1 each PROTOCOL PRN MISC ETOH Withdrawal Score changes 09/22/24 20:30 09/29/24 20:29 DC Piperacillin Sod/ Tazobactam Sod 50 ml @ 12.5 mls/hr Q12H IV 09/21/24 21:00 09/23/24 08:06 DC 09/22/24 20:43 12.5 MLS/HR Piperacillin Sod/ Tazobactam Sod (Zosyn 3.375gm+NS 50ml) 3.375 gm Q12H IV 09/26/24 11:30 10/06/24 11:29 09/30/24 12:09 3.375 GM Potassium Chloride 20 meq/ Sodium Chloride 1,010 ml @ 0 mls/hr PROTOCOL IV 09/22/24 00:00 09/23/24 21:23 DC Potassium Chloride/Dextrose/ Sod Cl 1,000 ml @ 0 mls/hr AD IV 09/22/24 00:00 09/23/24 21:23 DC Prednisone (deltaSONE/ oraSONE 20MG TAB) 20 mg DAILY PO 09/28/24 09:00 10/01/24 08:59 09/30/24 08:50 20 MG Sodium Bicarbonate (Sodium Bicarbonate) 650 mg TID PO 09/24/24 09:00 09/27/24 10:34 DC 09/26/24 20:36 650 MG Sodium Chloride 250 ml @ 0 mls/hr Q0M IV 09/25/24 23:00 09/27/24 10:34 DC Sodium Chloride 1,000 ml @ 0 mls/hr ONCE IV 09/23/24 19:30 09/27/24 13:51 DC 09/26/24 12:15 1,000 MLS/HR Sodium Chloride 1,000 ml @ 0 mls/hr ONCE IV 09/27/24 14:30 09/27/24 13:51 DC Sodium Chloride 1,000 ml @ 0 mls/hr ONCE IV 09/27/24 15:00 10/27/24 14:59 09/29/24 16:53 1,000 MLS/HR Sodium Chloride 1,000 ml @ 100 mls/hr Q10H IV 09/21/24 19:30 09/27/24 10:34 DC 09/23/24 12:53 100 MLS/HR Sodium Chloride 1,000 ml @ 200 mls/hr PROTOCOL IV 09/22/24 00:00 09/23/24 21:23 DC Thiamine HCl 100 mg/Folic Acid 1 mg/Multivitamins/ Minerals 10 ml/ Sodium Chloride 1,011.2 ml @ 100 mls/ hr Q24H IV 09/22/24 20:30 09/25/24 06:37 DC 09/22/24 20:43 100 MLS/HR Vancomycin HCl 250 ml @ 125 mls/hr Q72H IV 09/22/24 20:30 09/23/24 08:04 DC 09/22/24 20:48 125 MLS/HR Vancomycin HCl (Vancomycin 500mg+NS 100ml Ivpb) 1,000 mg DAILY08 IV 09/23/24 08:00 09/22/24 20:26 DC Vancomycin HCl (Vancomycin 750mg) 750 mg MWFPHD IVPB 09/26/24 16:00 10/03/24 23:29 Hold Vancomycin HCl (Vancomycin 750mg) 750 mg Q24H IVPB 09/23/24 23:30 09/25/24 06:26 DC 09/24/24 22:43 750 MG Vitamin B Complex/ Vit C/Folic Acid (Nephrovite Tablet) 1 cap DAILY PO 09/23/24 09:00 10/23/24 08:59 09/30/24 08:49 1 CAP DIAGNOSTICS / RADIOLOGY: RAD REPORT: CORNARY CT ANGIO RAD REPORT: CORNARY CT ANGIO RADIOLOGY REPORT: CORONARY CT ANGIOGRAPHY DATE: Sep 29, 2024 QUALITY: Excellent CLINICAL HISTORY AND INDICATION: [ abnormal lexiscan, NSTEMI, HFrEF ] TECHNIQUE: After obtaining a preliminary associate professor of kinesiology image, contrast imaging performed on an [employer] [id number] scanner. A dedicated, limited window, coronary imaging protocol was used, with single breath-hold, retrospective ECG gating, and automated arrhythmia rejection. 100 cc of low osmolar contrast agent: Omnipaque 350 was delivered via a 18-gauge IV catheter in the right antecubital fossa, using a power injector and followed by 60 cc of normal saline bolus as a chaser. Collimated images were reformatted at 0.5 mm intervals, and sent to an offline independent workstation for interpretation, using 3D anatomic reconstructions: Curved multiplanar reconstructions, maximum intensity projections, and multiplanar imaging. 10 mg IV metoprolol was administered prior to scanning. 0.8 mg SL nitroglycerin was given. CORONARY ARTERY DESCRIPTIONS: The coronary arteries arise in normal position. Left main coronary artery: Normal caliber but short vessel that bifurcates into the LAD and LCx. No stenosis. Left anterior descending coronary artery: Normal caliber vessel and gives rise to diagonal and septal branches. There is noncalcified plaque in the proximal and mid LAD with 90% stenosis. The artery in this segment measures approximately 2.8 mm. Left circumflex coronary artery: Normal caliber, nondominant and gives rise to a large OM branch. There is noncalcified plaque in the proximal and mid LCx with 90% stenosis, this segment measures approximately 3.0 mm. The OM1 vessel is not well visualized due to poor contrast enhancement. Right coronary artery: Large, dominant vessel giving rise to the PL and PDA branches. The RCA is not well visualized due to poor contrast enhancement. CAD-RADs: 4A, severe stenosis. Thoracic Aorta: Normal diameter. Galina Gonzales MD Cardiovascular Disease [facility] ASSESSMENT: Hyperosmolar Hyperglycemic Syndrome POA NSTEMI POA Influenza bronchopneumonia with sepsis POA Acute Hypoxemic Respiratory Failure POA Acute on chronic renal failure with concern for ATN POA Metabolic acidosis POA Lactic acidosis POA CKD stage 4 POA Uncontrolled Diabetes POA Protein Calorie malnutrition POA PLAN: Iron profile and APR labs Procalcitonin and LA Downgraded to medical floor Continue broad-spectrum antibiotics Continue to trend WBC in Continue to replace electrolytes IV protocol Continue the patient on long-acting as well as insulin sliding scale Follow a.m. labs GI and DVT prophylaxis Disposition: Pending improvement in clinical condition, CTA to evaluate coronary anatomy tomorrow if heart rate remains controlled, HD tomorrow per bridge manager, evaluated by Cardiothoracic surgeon for hemodialysis access. ATTESTATION BY PHYSICIAN I have seen and examined the patient. I reviewed the documentation, medical decision making, and treatment plan as noted by the resident provider above. I agree with the findings and plan of care. Dwight Brooks MD, NIHITHA MD Sep 30, 2024 14:00 DWIGHT BROOKS MD Sep 30, 2024 20:27
[2024-09-30] MEDS: ERGOCALCIFEROL (VITAMIN D2) 50,000 UNIT CAPSULE PO ONE (14:07)
[2024-09-30] MEDS: CALCIUM CARB 500MG PO SCH (14:07)
[2024-09-30 15:08] LABS: HEMATOCRIT 28.3 % (42-54); MEAN CORPUSCULAR HEMOGLOBIN 29.6 pg (27.0-33.0); MEAN CORPUSCULAR HGB CONC 34.6 g/dL (32.0-36.0); MEAN CORPUSCULAR VOLUME 85.5 fL (79-99); NUCLEATED RED BLOOD CELLS 0.4 % (0.0-0.19); RED BLOOD CELL COUNT(AUTO) 3.31 MIL/uL (4.50-6.20); RED CELL DISTRIBUTION WIDTH 13.2 % (11.0-15.5); WHITE BLOOD COUNT (AUTO) 15.7 K/uL (4.8-10.8)
--- NOTE | 2024-09-30 15:20 | PN ---
NEPHROLOGY PROGRESS NOTE Date/Time Patient Seen: Sep 30, 2024 Reason for Consultation: 15:15 SUBJECTIVE: This is a 49-year-old male with past medical history of CKD, diabetes, hypertension, hyperlipidemia and obesity He presents to the ED for complaints of cough and chest congestion Patient reports coughing up pinkish colored thick phlegm, loss of appetite and on Sunday Positive for influenza A, Chest x-ray result revealed extensive bilateral mid to lower lung pneumonia right greater than left. Coronary CTA that showed severe stenosis ( Prox-mid LAD 90 % stenosis, Prox and mid LCx 90 % stenosis ) CAD -RAD 4 A Plan for Coronary angiogram with possible PCI tomorrow AM as per Cardiology Continues to be followed by CV surgeon for AV access placement. He was noted with elevated BUN/creatinine. We will has been consulted for renal failure. Renal function continued to worsen He has been initiated on renal replacement therapy He has been tolerating dialysis without difficulty. Pending PermCath placement He was seen in the medical floor, in no acute distress Family at the bedside Prognosis remains guarded REVIEW OF SYSTEMS: GENERAL: Positive for cough, congestion and generalized weakness NEUROLOGIC: Negative for any blurry vision, blind spots, double vision, facial asymmetry, dysphagia, dysarthria, hemiparesis, hemisensory deficits, vertigo, ataxia. HEENT: Negative for any head trauma, neck trauma, neck stiffness, photophobia, phonophobia, sinusitis, rhinitis. CARDIAC: Negative for any chest pain, dyspnea on exertion, paroxysmal nocturnal dyspnea, peripheral edema. PULMONARY: Negative for any shortness of breath, wheezing, COPD, or TB exposure. GASTROINTESTINAL: Negative for any abdominal pain, nausea, vomiting, bright red blood per rectum, melena. GENITOURINARY: Negative for any dysuria, hematuria, incontinence. INTEGUMENTARY: Negative for any rashes, cuts, insect bites. RHEUMATOLOGIC: Negative for any joint pains, photosensitive rashes, history of vasculitis or kidney problems. HEMATOLOGIC: Negative for any abnormal bruising, frequent infections or bleeding. PHYSICAL EXAM: GENERAL: Alert and oriented x 3. No acute distress. Well-nourished. EYES: EOMI. Anicteric. HENT: Moist mucous membranes. No scleral icterus. No cervical lymphadenopathy. LUNGS: Clear to auscultation bilaterally. No accessory muscle use. CARDIOVASCULAR: Regular rate and rhythm. No murmur. No JVD. ABDOMEN: Soft, non-tender and non-distended. No palpable masses. EXTREMITIES: No edema. Non-tender. SKIN: No rashes or lesions. Warm. NEUROLOGIC: No focal neurological deficits. CN II-XII grossly intact, but not individually tested. PSYCHIATRIC: Cooperative. Appropriate mood and affect. LABORATORY: [ ] Hematology Labs: Test 09/30/24 14:39 09/30/24 04:56 Range/Units White Blood Count 15.7 H 4.8-10.8 K/uL Red Blood Count 3.31 L 4.50-6.20 MIL/uL Hemoglobin 9.8 L 14.0-18.0 g/dL Hematocrit 28.3 L 42-54 % Mean Corpuscular Volume 85.5 79-99 fL Mean Corpuscular Hemoglobin 29.6 27.0-33.0 pg Mean Corpuscular Hemoglobin Concent 34.6 32.0-36.0 g/dL Red Cell Distribution Width 13.2 11.0-15.5 % Platelet Count 247 130-400 K/uL Mean Platelet Volume 11.7 H 7.5-10.5 fL Nucleated Red Blood Cells 0.4 H 0.0-0.19 % Immature Granulocyte % (Auto) 6.4 H 0-1 % Neutrophils (%) (Auto) 84.7 H 40.0-77.0 % Lymphocytes (%) (Auto) 2.4 L 21.0-51.0 % Monocytes (%) (Auto) 5.9 3.0-13.0 % Eosinophils (%) (Auto) 0.2 0.0-8.0 % Basophils (%) (Auto) 0.4 0.0-5.0 % Neutrophils # (Auto) 14.2 H 1.8-7.7 K/uL Lymphocytes # (Auto) 0.4 L 1.0-4.8 K/uL Monocytes # (Auto) 1.0 0.1-1.0 K/uL Eosinophils # (Auto) 0.03 0.00-0.70 K/uL Basophils # (Auto) 0.06 0.00-0.20 K/uL Absolute Immature Granulocyte (auto 1.06 H 0-1 K/uL Chemistry Labs: Test 09/30/24 14:39 09/30/24 10:42 09/30/24 09:27 09/30/24 04:56 Range/Units Lactic Acid Level 2.8 H 0.8-2.5 mmol/L C-Reactive Protein, Quantitative 17.60 H 0.5-3.0 mg/L Whole Blood Glucose 434 *H 70-110 MG/DL Bedside Glucose Comment Protocol Initiated Whole Blood Ketones Quantitative 0.1 0.0-0.6 mmol/L Sodium Level 132 L 136-145 mmol/L Potassium Level 5.0 3.5-5.1 mmol/L Chloride Level 92 L 101-111 mmol/L Carbon Dioxide Level 22 21-32 mmol/L Blood Urea Nitrogen 98 *H 7-18 mg/dL Creatinine 9.3 *H 0.5-1.3 mg/dL Glomerular Filtration Rate Calc 6 >90 mL/min Random Glucose 464 *H 70-105 mg/dL Total Calcium 5.8 *L 8.5-10.1 mg/dL Phosphorus Level 9.7 H 2.5-4.9 mg/dL Total Bilirubin 0.6 0.2-1.0 mg/dL Aspartate Amino Transf (AST/SGOT) 164 H 10-37 U/L Alanine Aminotransferase (ALT/SGPT) 1912 *H 12-78 U/L Alkaline Phosphatase 227 H 50-136 U/L Total Protein 5.5 L 6.0-8.3 g/dL Albumin 2.2 L 3.5-5.0 g/dL Test 09/29/24 03:51 Range/Units Magnesium Level 2.20 1.80-2.40 mg/dL DIAGNOSTICS / RADIOLOGY: REASON: nstemi ORDERING PHYSICIAN: ARIELA CHOI MD PROCEDURE: CTCAWC - CT CARDIAC ANGIO W/CONT. CCTA CT OF THE CHEST WITH CONTRAST- CT Cardiac Angio co-interpretation This is done as part of the CT cardiac angiogram study. The interpretation of the coronary arteries will be done by [facility] in a separate report. History: over-read Comparison: none CT Dose Index (CTDI): 77.90 mGy Dose Length Product (DLP): 493.40 total mGy PROTOCOL: Examination is done at 2.5 millimeter volumetric acquisition after contrast administration with Isovue 370, 100 cc IV, without complications. Photography is done at 5 millimeter thick intervals for the thorax. The examination begins above the heart and therefore the lung apices are incompletely included. The rest of the left lung is included but the right lung is only included up to its middle third. The periphery of the right lung is not included in the study. FINDINGS: The visualized part of the airway is preserved. The bony and soft tissue structures of the chest wall are unremarkable. The aorta is unremarkable. No mediastinal lymphadenopathy is seen. The appendix is distended and there are surrounding inflammatory changes and the possibility of acute appendicitis cannot be excluded. There is no evidence of pulmonary embolism in the visualized lung segments. The upper abdominal views are unremarkable. Impression: NoThe appendix is distended and there are surrounding inflammatory changes and the possibility of acute appendicitis cannot be excluded. DICTATED BY: ORTIZ BENITES MD DATE: 09/29/24 1453 REASON: assess liver cirrhosis and CBD dilation ORDERING PHYSICIAN: SHAVON ARAGON PROCEDURE: ABDOMEN - US ABDOMINAL COMPLETE US ABDOMINAL COMPLETE HISTORY: No additional history given. COMPARISON: None TECHNIQUE: Multiple transverse and longitudinal ultrasound images of the abdomen were obtained. FINDINGS: Abdominal aorta and inferior vena cava are unremarkable. The visualized portion of the pancreas is within normal limits. Portal vein is patent. Liver measures 17 cm. Liver is echogenic consistent with liver parenchymal disease. No gallstone is seen. Common duct measures 4 mm. No evidence of gallbladder wall thickening is seen. Both kidneys are seen. Right kidney measures 10.3 x 4.9 x 5 cm. Left kidney measures 10.3 x 6.4 x 3 cm. No hydronephrosis is seen of the both kidneys. Spleen measures 12 cm. The spleen is grossly unremarkable. IMPRESSION: 1. No gallstone or ductal dilatation is seen. 2. No hydronephrosis is seen. DICTATED BY: JENNIFER MESA MD DATE: 09/28/24 1528 REASON: hypoxic resp failure ORDERING PHYSICIAN: SHAVON ARAGON PROCEDURE: CXR1VW - CHEST 1VW CHEST 1VW REASON: hypoxic resp failure COMPARISON: 09/23/2024 FINDINGS: There are diffuse bilateral infiltrates which are unchanged. Dialysis catheter remains in place. There is no pneumothorax or other complication. There are no pleural effusions. IMPRESSION: 1. Extensive bilateral infiltrates unchanged. DICTATED BY: ARMANDO FAIR MD DATE: 09/24/24 1051 REASON: FVO ORDERING PHYSICIAN: FELIX BARBOSA NP PROCEDURE: ECHO CMP - ECHO 2-D COMPLETE APPROVED REPORT EXAM: Two-dimensional and M-mode echocardiogram with Doppler and color Doppler. INDICATION ICD: Fluid volume overload 2D Dimensions RVDd 4.4 cm LVEF(%) 41.1 (>50%) LVED Vol(simp.) 176.0 mL IVSd 1.0 (0.7-1.1cm) FS(%) 20 % LVES Vol(simp.) 104.0 mL LVDd 5.4 (3.8-5.6cm) LA (2D) 4.1 (1.6-4.0cm) LVEF(%, simp.) 41 % PWd 1.4 (0.7-1.1cm) Ao Root(2D) 2.9 (2.0-3.7cm) LA ESV INDEX (4CH) 33.40 mL/m2 IVSs 1.2 cm LVOT diam 2.0 (1.8-2.4cm) LA ESV INDEX (2CH) 45.20 mL/m2 LVDs 4.3 (2.5-4.0cm) IVC diam 2.1 cm LA ESV INDEX (BP) 39.50 mL/m2 PWs 2.0 cm Deformation Strain Apical 4 -9.0 % Apical 2 -9.0 % Apical 3 -9.0 % Global Strain -9.0 % M-Mode Dimensions EPSS 1.7 cm LA (MM) 3.4 (1.6-4.0cm) Ao Root(MM) 3.3 (2.0-3.7cm) Aortic Valve AoV VTI 0.3 m Ao Mean GR 9.0 mmHg LVOT VTI 0.20 m STEPHANIE (VMAX) 1.9 cm2 STEPHANIE (VTI) 1.9 cm2 Mitral Valve MV E Vmax 149.3 cm/s DECEL Time 78 ms P 1/2 T 56 ms MVA (PHT) 3.9 cm2 TDI E/E' Medial 19.4 E/E' Lateral 11.8 Medial E' Peak V 7.70 cm/s Lateral E' Peak V 12.70 cm/s Tricuspid Valve RAP (EST) 8 mmHg RVSP 8.0 mmHg Left Ventricle The left ventricle is normal size. The inferior wall is severely hypokinetic. The other ibrahim are hypokinetic. Moderate concentric hypertrophy of the left ventricle is noted. Left ventricle systolic function is moderate to severely depressed, estimated LVEF 35 to 40%. E to E ratio is greater than 14, which is suggestive of increased left ventricle end-diastolic filling pressures. Right Ventricle The right ventricle is dilated. The right ventricular systolic function is normal. Atria The left atrium is mildly dilated, 40 mL/m. The right atrium is dilated. Aortic Valve Aortic valve is probably trileaflet. The leaflets are severely thickened and calcified. Trace aortic regurgitation. Mild aortic stenosis: Peak velocity 2.0 m/s, mean gradient 9 mmHg Mitral Valve Mild mitral annular calcification is noted. The leaflets are mild thickened and calcified. Trace mitral regurgitation. There is no mitral valve stenosis. Tricuspid Valve The tricuspid valve is normal in structure. Trace tricuspid regurgitation. RVSP is grossly normal, but is likely underestimated. Pulmonic Valve Pulmonic valve is not well visualized. Great Vessels The aortic root is normal in size. The IVC is normal in size and collapses <50% with inspiration. Pericardium Trace pericardial effusion. Other Information Quality : Technically difficult due to body habitus Conclusion The left atrium is mildly dilated, 40 mL/m. The right atrium is dilated. The right ventricle is dilated. Moderate concentric hypertrophy of the left ventricle is noted. The inferior wall is severely hypokinetic. The other ibrahim are hypokinetic. Left ventricle systolic function is moderate to severely depressed, estimated LVEF 35 to 40%. E to E ratio is greater than 14, which is suggestive of increased left ventricle end-diastolic filling pressures. Mild aortic stenosis: Peak velocity 2.0 m/s, mean gradient 9 mmHg (likely underestimated). Trace aortic regurgitation. Trace mitral regurgitation. Trace pericardial effusion. PASP is grossly normal, but is likely under estimated. Trace pericardial effusion. DICTATED BY: RONALD AGUAYO MD DATE: 09/23/24 0731 REASON: acute renal failure ORDERING PHYSICIAN: TERRANCE CHAN PROCEDURE: RENAL - US RENAL SONOGRAM US RENAL SONOGRAM REASON: acute renal failure COMPARISON: None TECHNIQUE: Renal and bladder sonogram was performed. FINDINGS: Right kidney is 11.3 x 4.9 x 4.7 cm, left is 11.5 x 5.5 x 4.4 cm. There is no mass, stone or hydronephrosis. Cortical thickness appears preserved. Echogenicity appears normal. The urinary bladder appears normal as well. IMPRESSION: 1. Normal renal and bladder sonogram. DICTATED BY: ARMANDO FAIR MD DATE: 09/22/24 1127 REASON: sob ORDERING PHYSICIAN: TERRANCE CHAN PROCEDURE: CHEST WO - CT CHEST W/O CONTRAST CT CHEST WITHOUT CONTRAST INDICATION: Bilateral lung pneumonia TECHNIQUE: Routine axial images using 5 mm slice thickness were acquired from the lung apices to the bases without the administration of IV contrast.Coronal and sagittal reformatted images acquired for interpretation. CT was performed with one or more of the following dose reduction techniques: Automated exposure control, adjustment of the mA and/or kV according to patient size, or use of iterative reconstruction technique. COMPARISON: None FINDINGS: The heart size is normal. Coronary arterial wall calcific plaque noted. No pericardial effusion noted. Mild calcific plaque is present along the aortic arch and thoracic aortic ibrahim without aneurysmal dilation. The trachea and airways are patent. Coalescent "ground-glass" opacities with intermixed consolidation/nodularity noted throughout the bilateral lungs in a centrilobular distribution. No axillary, hilar, or mediastinal lymphadenopathy. No pleural effusion or pneumothorax identified. Limited views of the upper abdomen appear normal. Visible osseous structures are intact. IMPRESSION: Extensive bilateral lung pneumonia. Arteriosclerotic disease as described. DICTATED BY: AGUS MC MD DATE: 09/21/242025 REASON: cough, shortness of breath ORDERING PHYSICIAN: HEBER CABRERA NP PROCEDURE: CXR1VW - CHEST 1VW PORTABLE CHEST RADIOGRAPH INDICATION: cough, shortness of breath COMPARISON: 04/05/2024 FINDINGS: Heart size is normal. The pulmonary vascularity and eder appear normal. Extensive coalescent/consolidative bilateral mid to lower lung opacities, right greater than left. No significant pleural effusion noted. No pneumothorax detected. IMPRESSION: Extensive bilateral mid to lower lung pneumonia, right greater than left. DICTATED BY: AGUS MC MD DATE: 09/21/24 190 ASSESSMENT: Volume overload End-stage renal disease Hyperosmolar Hyperglycemic Syndrome NSTEMI Influenza A Acute Hypoxemic Respiratory Failure Metabolic acidosis Lactic acidosis CKD stage 4 Uncontrolled Diabetes Protein Calorie malnutrition PLAN: Labs, diagnostic, radiologic exams reviewed and interpreted by myself and supervising physician. We have reviewed external records in detail Pending coronary angiogram with possible PCI tomorrow by Cardiology, dialysis to follow He is pending a PermCath Case management to coordinate outpatient dialysis chair SUDHAKAR Chung. Consult CV surgeon for AV access creation. Preserve nondominant arm Require close monitoring of renal function and electrolytes Order CBC, CMP,and electrolytes in am Continue with antibiotics Renal diabetic diet BiPAP as necessary, for respiratory distress Monitor blood pressure adjust medication doses as needed Avoid hypotensive episodes May use Dilaudid 0.5 mg IV every 6 hours as needed for severe pain Monitor blood sugars Strict intake, output, and daily weight should be monitored Please renally adjust medications Avoid nephrotoxic and nonsteroidal drugs Avoid contrast if possible Will continue to monitor renal function, anemia, electrolytes Treatment plan discussed with patient Questions were answered We have discussed with the other team physicians in detail about the care plan ATTESTATION BY PHYSICIAN I have seen and examined the patient. I reviewed the documentation, medical decision making, and treatment plan as noted by the mid-level provider above. I agree with the findings and plan of care. BRAYDON HOLLINGSWORTH MD, [facility] Sep 30, 2024 15:20
[2024-09-30 16:00] VITALS: BP 150/83; PULSE 74; RESP 17; TEMP 97.9
--- NOTE | 2024-09-30 16:14 | NUR ---
PT eval held patient with multiple critical labs today and pending heart cath tomorrow PT following
--- NOTE | 2024-09-30 17:18 | PN ---
[facility] PROGRESS NOTE Date Patient Seen: Sep 30, 2024 Time of Visit: 17:18 Supervising Physician: [Dr. Gates] Primary Care Physician: Gama Acosta Outpatient Specialists: [ ] Inpatient Consults: Cardiology, nephrology and critical care team PROBLEM LIST: Septic shock, not POA, resolved Acute Hypoxemic Respiratory Failure, POA, resolved Acute on chronic CHF with reduced EF of 35 40% Nstemi,likely Type II POA Community acquired influenza A viral pneumoniae w/ superimposed Bilateral bacterial Pneumonia, POA, Sepsis Due To Bilateral Pneumonia And Influenza A Infection, POA Severe transaminitis 2/2 shocked liver not POA ESRD with new onset hemodialysis this admission s/p Rt permacath Recurrent Dka w/ reopening of AGAP and ketones Acute Metabolic Acidosis 2/2 DkA and SAURABH , POA Hyperkalemia In The Context Of Chronic Kidney Injury, Poa Morbid Obesity BMI 40.5 INTERVAL HISTORY: 09/22/2024: At the time my evaluation, the patient was in the emergency department awaiting bed assignment. The staff nurse reports no acute events overnight. The patient was on a Oxymizer with optimal SpO2. He was normotensive without the need for pressor therapy. There was no complaint of chest pain. There was no abdominal pain, nausea vomiting or diarrhea. The patient continued on a insulin drip per the DKA protocol. He was started on antibiotic and antiviral therapy for management of his condition. Review of labs today showed no major concern on CBC. Chemistry panel did show a sodium of 135, chloride of 100 and a CO2 of 20 with a anion gap of 15. Blood glucose remains elevated in the 300s. No new complaint. 09/23- saw patient and ED 13 awake alert and oriented x3. 2D echo at bedside being performed. Patient has been afebrile heart rate of 110, blood pressure 116/63 with respiratory rate of 20 saturating 97% with 7 L via nasal cannula oximizer. Urine output 1.4 L in the last 24 hours. On laboratory WBCs are 11.4 H&H trending down 7.6/23.1 with a platelet count that is 178 K. on chemistry sodium 136 potassium of 3.7 chloride 100 carbon dioxide of 19 BUN 106. Creatinine of 8.6 and GFR of 7. Per Dr Armenta pt scheduled for a Mitesh hemodialysis catheter per IR today. Pt continues with Tamiflu, Doxy, Cefepime and MRSA coverage will be added w/ vanco due to suspected MRSA superimposed pneumonia on Influenza pneumonia. On CT chest, abdomen and pelvis shows Acute appearing infiltrates in both lung bases consistent with pneumoniae. No acute finding in the abdomen or pelvis. Del Cid catheter in good position in the urinary bladder. We will continue to follow Neprhology recommendations. 09/24 patient was seen and examined at bedside with primary nurse present. Patient to receive1 unit PRBCs hemoglobin this a.m. 6.8. Continue to monitor closely. Patient to continue on IV antibiotics. Patient's troponin levels trending down. We will continue to follow recommendations of Cardiology. Patient remains hypoxic requiring supplemental oxygen via nasal cannula at L. Patient states does not use home oxygen. Patient is to continue on heparin drip. Patient to continue on IV steroids. Patient's echocardiogram revealed EF of 35-40%. Patient's blood cultures have been negative x2 days. Patient remains high risk for decompensation. 09/25 patient was seen and examined at bedside with mother present. At time of visit patient is currently on room air has been weaned off oxygen. Yesterday patient was on 5 L. As per patient is tolerating room air well. Patient denies any chest pain or shortness of breadth, however does report shortness of breath upon minimal exertion. Patient remains on heparin drip. Patient is still currently pending coronary CT to be completed, further recommendations by Cardiology to follow once examined has been completed. Patient to continue on hemodialysis per Nephrology's recommendations. 09/26/24-patient is awake alert and oriented x3. He requires Levophed at 0 point 4 micrograms/kilogram per minute for blood pressure support. He was brought into the ICU overnight due to hypotension and elevated liver enzymes. Current blood pressure of 129/74 heart rate in the 80s respiratory rate of 19 saturating 100% with 7 L via Oxymizer and afebrile. As per RN she is weaning Levophed. Urine output was 100 mL in the last 24 hours he received hemodialysis today with 3.6 L out and had one bowel movement. WBCs spiked up this morning from 17.6224.2 H&H 8.6/25.4 and platelet count is normal 291 K. neutrophils 79.5. Suspect patient aspirated in the episode of hypotension due to increased pulmonary infiltrates to right side and spike in white count and temperature. Patient was panculture and cefepime changed to Zosyn to cover for aspiration pneumonia. On chest x-ray patient with a extensive bilateral infiltrates unchanged. No pneumothorax. Chemistries sodium of 130 potassium is 6.2 chloride of 90 carbon dioxide of 17 with a BUN of 119 and creatinine 9.6 and GFR of six liver enzymes raised AST of 6752 ALT of 4302, alkaline phosphatase of 233 likely from shock liver procalcitonin elevated at 24.31 decreased from admission wishes 70. On repeat BNP patient has a sodium of 134 potassium of 3.5 chloride of 91 carbon dioxide 26 with a anion gap of 17 and ketones of 1.4 we will need to restart insulin drip per DKA protocol. 09/27/24-pt is awake alert and oriented x 3. He is hemodynamically stable and off pressors. He denies any chill, chest pain or increased sob at rest. He does report sob on exertion and reports poor appetite. He is due for HD treatment today. Per RN no major overnight events and he has been afebrile. WBC's are trending down now 20.4, H&H is 8.9/26.3 and platelet count is 220 K. chemistry patient had a sodium of 134 potassium is normal 4.6 chloride of 92 carbon dioxide 24, AGAP has closed, liver enzymes severely elevated consistent with shocked lover but we will order us of abdomen to assess Liver and Gallbladder. Ketones of 0.2. We have discontinued DKA protocol and pt ,may be downgraded from ICU today. 2/ patient was seen and examined at bedside with family present. Patient is awake alert able to answer simple questions appropriately. Patient is on room air appears to be tolerating well. Patient has remained hemodynamically stable. Patient denies any chest pain or shortness of breadth. Denies any nausea vomiting or abdominal pain. Most per primary nurse no acute events to be reported. We will continue to follow recommendations from Nephrology and Cardiology appreciate assistance. We will continue to monitor patient closely 2/ patient was seen and examined at bedside with family present. Patient remains on room air tolerating well. Patient is scheduled for coronary CT today we will follow recommendations from Cardiology. Patient to continue on h emodialysis per Nephrology's recommendations. Patient's WBCs trending down today 18.6 yesterday 22.0. Patient to continue on IV antibiotics. We will continue to monitor patient closely. 09/[address] coronary angiogram which revealed 90% stenosis of the LAD as well as 90% stenosis of the left circumflex. Per bedside nurse, patient was offered stent placement, however refused and is wanting to pursue this as an outpatient. Patient's blood sugar remains elevated in for 0s, we will adjust insulin as indicated. Pro mallory significantly decreased from 70 down to 6. Blood and urine cultures remain negative, sputum cultures growing Dunia. His liver enzymes remain elevated but significantly downtrended. Patient is pending AV fistula for hemodialysis, however CTS is deferring this as an outpatient in order to prioritize his CAD management. REVIEW OF SYSTEMS: 12 point ROS reviewed with patient. Pertinent positives mentioned above. Otherwise negative. PHYSICAL EXAM: GENERAL: alert, weak, awake oriented x 3 HEENT: EOMI, Sclera non icteric, moist mucosa NECK: Supple, no JVD, trachea midline LUNGS: coarse rhonchi breath sounds bilaterally. No wheezes HEART: Regular rate and rhythm. Normal S1 and S2, without murmurs ABD: Abdomen soft, nontender. Bowel sounds present EXT: No clubbing cyanosis or edema NEURO: Alert and oriented to person, follows commands Vital Signs (last 8hr) Date Time Temp Pulse Resp B/P (MAP) Pulse Ox O2 Delivery O2 Flow Rate FiO2 09/30/24 11:20 97.9 76 17 109/65 94 Room Air 0.0 LABS: Hematology Labs: Test 09/30/24 14:39 09/30/24 04:56 Range/Units White Blood Count 15.7 H 4.8-10.8 K/uL Red Blood Count 3.31 L 4.50-6.20 MIL/uL Hemoglobin 9.8 L 14.0-18.0 g/dL Hematocrit 28.3 L 42-54 % Mean Corpuscular Volume 85.5 79-99 fL Mean Corpuscular Hemoglobin 29.6 27.0-33.0 pg Mean Corpuscular Hemoglobin Concent 34.6 32.0-36.0 g/dL Red Cell Distribution Width 13.2 11.0-15.5 % Platelet Count 247 130-400 K/uL Mean Platelet Volume 11.7 H 7.5-10.5 fL Nucleated Red Blood Cells 0.4 H 0.0-0.19 % Erythrocyte Sedimentation Rate 58 H 0-15 MM/HR Immature Granulocyte % (Auto) 6.4 H 0-1 % Neutrophils (%) (Auto) 84.7 H 40.0-77.0 % Lymphocytes (%) (Auto) 2.4 L 21.0-51.0 % Monocytes (%) (Auto) 5.9 3.0-13.0 % Eosinophils (%) (Auto) 0.2 0.0-8.0 % Basophils (%) (Auto) 0.4 0.0-5.0 % Neutrophils # (Auto) 14.2 H 1.8-7.7 K/uL Lymphocytes # (Auto) 0.4 L 1.0-4.8 K/uL Monocytes # (Auto) 1.0 0.1-1.0 K/uL Eosinophils # (Auto) 0.03 0.00-0.70 K/uL Basophils # (Auto) 0.06 0.00-0.20 K/uL Absolute Immature Granulocyte (auto 1.06 H 0-1 K/uL Chemistry Labs: Test 09/30/24 16:29 09/30/24 14:39 09/30/24 10:42 09/30/24 09:27 Range/Units Whole Blood Glucose 335 H 70-110 MG/DL Lactic Acid Level 2.8 H 0.8-2.5 mmol/L Iron Level 55 #L 65-175 mcg/dL Total Iron Binding Capacity 203 L 250-450 mcg/dL Percent Iron Saturation 27.0 L 30-44 % C-Reactive Protein, Quantitative 17.60 H 0.5-3.0 mg/L Procalcitonin 6.88 H 0.05-0.5 ng/mL Bedside Glucose Comment Protocol Initiated Whole Blood Ketones Quantitative 0.1 0.0-0.6 mmol/L Test 09/30/24 04:56 09/29/24 03:51 Range/Units Sodium Level 132 L 136-145 mmol/L Potassium Level 5.0 3.5-5.1 mmol/L Chloride Level 92 L 101-111 mmol/L Carbon Dioxide Level 22 21-32 mmol/L Blood Urea Nitrogen 98 *H 7-18 mg/dL Creatinine 9.3 *H 0.5-1.3 mg/dL Glomerular Filtration Rate Calc 6 >90 mL/min Random Glucose 464 *H 70-105 mg/dL Total Calcium 5.8 *L 8.5-10.1 mg/dL Phosphorus Level 9.7 H 2.5-4.9 mg/dL Total Bilirubin 0.6 0.2-1.0 mg/dL Aspartate Amino Transf (AST/SGOT) 164 H 10-37 U/L Alanine Aminotransferase (ALT/SGPT) 1912 *H 12-78 U/L Alkaline Phosphatase 227 H 50-136 U/L Total Protein 5.5 L 6.0-8.3 g/dL Albumin 2.2 L 3.5-5.0 g/dL Magnesium Level 2.20 1.80-2.40 mg/dL DIAGNOSTICS / RADIOLOGY RESULTS: CT OF THE CHEST WITH CONTRAST- CT Cardiac Angio co-interpretation This is done as part of the CT cardiac angiogram study. The interpretation of the coronary arteries will be done by astronomy department chair in a separate report. History: over-read Comparison: none CT Dose Index (CTDI): 77.90 mGy Dose Length Product (DLP): 493.40 total mGy PROTOCOL: Examination is done at 2.5 millimeter volumetric acquisition after contrast administration with Isovue 370, 100 cc IV, without complications. Photography is done at 5 millimeter thick intervals for the thorax. The examination begins above the heart and therefore the lung apices are incompletely included. The rest of the left lung is included but the right lung is only included up to its middle third. The periphery of the right lung is not included in the study. FINDINGS: The visualized part of the airway is preserved. The bony and soft tissue structures of the chest wall are unremarkable. The aorta is unremarkable. No mediastinal lymphadenopathy is seen. The appendix is distended and there are surrounding inflammatory changes and the possibility of acute appendicitis cannot be excluded. There is no evidence of pulmonary embolism in the visualized lung segments. The upper abdominal views are unremarkable. Impression: NoThe appendix is distended and there are surrounding inflammatory changes and the possibility of acute appendicitis cannot be excluded. PLAN CAD management per cardiology AVF for dialysis upon discharge Continue IV antibiotics Continue prednisone 20 mg daily Repeat labs in a.m. Rest of the care per primary team NEURO: Minimize central acting medications as possible. Maintain fall precautions, adequate lighting during the day PULMONARY: Supplemental 02 as needed. Maintain aspiration precautions at all times CARDIOVASCULAR: Follow hemodynamics. Vital signs per facility protocol GI & NUTRITION: Continue with nutritional support. Continue stool softeners and laxatives as needed. KIDNEYS & ELECTROLYTES: Strict monitoring of intake, output and overall fluid balance. Avoid nephrotoxic medications to the extent possible. Medications to be dosed according to renal function. Monitor electrolytes and replace as needed ENDOCRINE: Maintain blood glucose between 100-180 at all times. Hypoglycemia protocol in place INFECTIOUS DISEASE: Trend temperature, WBC and procalcitonin level Follow cultures, deescalate antibiotics as soon as possible. Panculture if new onset fever ONCOLOGY/HEMATOLOGY/COAGULATION: Monitor for s/s of bleeding Monitor hemoglobin, coagulation studies as needed SKIN: Pressure ulcer prevention per facility protocol Specialty mattress ORTHO/REHAB: Continue PT/OT Prophylaxis: Continue GI and DVT prophylaxis Code Status: Full Resuscitation Disposition: TBD Other: Case discussed with supervising physician plan of care agreed upon MARIELOS VALLEJO Sep 30, 2024 17:18
[2024-09-30] MEDS ORDERED: DEXTROSE 50%-WATER 50 ML DISP.SYRIN IV PRN (17:30)
[2024-09-30] MEDS ORDERED: GLUCAGON 1MG KIT 1 MG ML IM PRN (17:30)
[2024-09-30 20:00] VITALS: O2SAT 97
[2024-09-30 20:43] VITALS: BP 163/93; PULSE 79; RESP 16; TEMP 97.7
[2024-09-30] MEDS: INSULIN GLARgine 100 UNITS/ML 10 ML VIAL SQ SCH (20:46)
[2024-09-30] MEDS: atorVAStatin 40 MG TABLET PO SCH (20:53)
[2024-09-30] MEDS ORDERED: INSULIN GLARgine 100 UNITS/ML 10 ML VIAL SQ SCH (21:00)
--- NOTE | 2024-09-30 21:12 | PN ---
SUBJECTIVE: The patient has end-stage renal disease and Cardiovascular Surgery was consulted for long-term hemodialysis access. He appears to be having hemodialysis through a Mahurkar catheter placed in his right IJ. The patient relates that yesterday when I came by, he was in the CT scan her getting a cardiac CT angiogram as he is being worked up for coronary artery disease by his claims consultant. OBJECTIVE: GENERAL: The patient is sitting up in a bedside chair, accompanied in the room by his . In general, he is in no apparent distress. HEART: S1, S2, regular. LUNGS: Unlabored at rest. ABDOMEN: Reveals positive bowel sounds. He has a Mahurkar catheter exiting his right medial supraclavicular region. EXTREMITIES: He is right handed and has a right sided peripheral IV. His left upper extremity does not really show any visible veins. He does have a left radial artery pulse. ASSESSMENT AND PLAN: End-stage renal disease requiring long-term hemodialysis access. The patient should have completion of his cardiac workup. The patient can then be discharged and we can do the fistula as an outpatient as his heart will take priority over the fistula. TID: [id number] RECEIPT: [id number]
[2024-09-30] MEDS: MELATONIN 5 MG TABLET PO ONE (23:05)
[2024-10-01] VITALS (31 sets, daily range): BP systolic 125–176; BP diastolic 41–133; PULSE 63–84; RESP 16–20; TEMP 97.5–98.3; O2SAT 94–98
[2024-10-01 05:24] LABS: BASOPHILS # (AUTO) 0.02 K/uL (0.00-0.20); BASOPHILS % (AUTO) 0.1 % (0.0-5.0); EOSINOPHILS # (AUTO) 0.11 K/uL (0.00-0.70); EOSINOPHILS % (AUTO) 0.7 % (0.0-8.0); HEMATOCRIT 26.3 % (42-54); IMMATURE GRANULOCYTE ABSOLUTE 0.65 K/uL (0-1); LYMPHOCYTES # (AUTO) 0.4 K/uL (1.0-4.8); LYMPHOCYTES % (AUTO) 2.8 % (21.0-51.0); MEAN CORPUSCULAR HGB CONC 33.1 g/dL (32.0-36.0); MEAN CORPUSCULAR VOLUME 87.7 fL (79-99); MONOCYTES # (AUTO) 0.9 K/uL (0.1-1.0); MONOCYTES % (AUTO) 5.9 % (3.0-13.0); NEUTROPHILS # (AUTO) 13.4 K/uL (1.8-7.7); NEUTROPHILS % (AUTO) 86.3 % (40.0-77.0); NUCLEATED RED BLOOD CELLS 0.3 % (0.0-0.19); PLATELET COUNT (AUTO) 215 K/uL (130-400); RED CELL DISTRIBUTION WIDTH 13.7 % (11.0-15.5); WHITE BLOOD COUNT (AUTO) 15.5 K/uL (4.8-10.8)
[2024-10-01 05:34] LABS: INR 1.05 (0.85-1.15); PROTHROMBIN TIME 11.7 SEC (9.6-11.6)
[2024-10-01 05:35] LABS: PARTIAL THROMBOPLASTIN TIME 26.4 SEC (26.3-35.5)
[2024-10-01 05:55] LABS: BILIRUBIN,TOTAL 0.5 mg/dL (0.2-1.0); POTASSIUM 4.5 mmol/L (3.5-5.1); TOTAL PROTEIN, SERUM 5.2 g/dL (6.0-8.3)
[2024-10-01 06:00] LABS: CREATININE 10.9 mg/dL (0.5-1.3)
[2024-10-01] MEDS: INSULIN LISpro 100 UNIT/ML 3ML SQ SCH ×2 (06:22→17:00)
[2024-10-01] MEDS ORDERED: NITROGLYCERIN 50MG VIAL ONE (07:12)
[2024-10-01] MEDS ORDERED: LIDOCAINE HCL 400MG/20ML VIAL ONE (07:12)
[2024-10-01] MEDS ORDERED: HEParin 10,000 UNIT/10ML (1,000 UNIT/ML) VIAL ONE (07:12)
[2024-10-01] MEDS ORDERED: HEParin-NS 1,000 UNIT/500 ML 1,000 ML IV ONE (07:12)
[2024-10-01] MEDS ORDERED: IOHEXOL 350 MG/ML 100ML INFUS..BTL IV ONE (07:12)
--- NOTE | 2024-10-01 07:30 | NUR ---
OFF UNIT TAKEN OFF UNIT TO TRANSPORT RN
[2024-10-01] MEDS ORDERED: MIDAZOLAM HCL 1 MG/ML 2ML VIAL ONE (07:40)
[2024-10-01] MEDS ORDERED: FENTanyl CITRate PF 50 MCG/1 ML 2ML VIAL ONE (07:40)
[2024-10-01] MEDS ORDERED: VERAPAMIL HCL 2.5 MG/ML VIAL ONE (07:59)
--- NOTE | 2024-10-01 08:01 | PN ---
[facility] CARDIOLOGY PROGRESS NOTE Date Patient Seen: Oct 01, 2024 Time of Visit: 07:54 Problem List: NSTEMI Volume overload 2/2 progression of ESRD Influenza A, Tamiflu started on 09/22/2024 Bilateral pneumonia HHS and DKA, on Insulin gtt HTN HLD DM type II 2D echo on 04/06/2024 demonstrated an EF of 45-50% Lexiscan stress test on 04/07/2024 demonstrated a fixed basal mid inferolateral and basal inferior defect with no reversible ischemia Interval History: [No acute events overnight. Currently denies any cardiac symptoms or anginal equivalents , the patient will undergo coronary angiogra today , all risks and goals were discussed with the patient , which verbalized understanding and consent to the procedure Physical Examination: GENERAL: No acute distress. HEAD: Normal with no signs of head trauma. EYES: PERRLA, EOMI, conjunctiva and sclera normal. ENT: Hearing grossly intact, normal oropharynx. NECK: Supple without JVD. There is no tenderness, lymphadenopathy, or masses. No thyromegaly. Normal carotid upstrokes without bruits. LUNGS: Crackles to bases bilaterally. HEART: Tachycardic rate and normal rhythm. Normal S1 and S2 without murmurs, gallop or rub. VASC: BLE 2+ pitting edema ABD: Bowel sounds normal, soft, nontender, no masses, no organomegaly. No audible bruits. : Not examined LYMPH: No lymphadenopathy noted. EXT: No clubbing, cyanosis 2+ bilateral lower extremity pitting edema SKIN: No rashes or lesions noted. NEURO: Awake, alert, and oriented x3. No focal sensory or strength deficits noted. Laboratory: [ ] Hematology Labs: Test 10/01/24 05:03 09/30/24 14:39 Range/Units White Blood Count 15.5 H 4.8-10.8 K/uL Red Blood Count 3.00 L 4.50-6.20 MIL/uL Hemoglobin 8.7 L 14.0-18.0 g/dL Hematocrit 26.3 L 42-54 % Mean Corpuscular Volume 87.7 79-99 fL Mean Corpuscular Hemoglobin 29.0 27.0-33.0 pg Mean Corpuscular Hemoglobin Concent 33.1 32.0-36.0 g/dL Red Cell Distribution Width 13.7 11.0-15.5 % Platelet Count 215 130-400 K/uL Mean Platelet Volume 11.4 H 7.5-10.5 fL Immature Granulocyte % (Auto) 4.2 H 0-1 % Neutrophils (%) (Auto) 86.3 H 40.0-77.0 % Lymphocytes (%) (Auto) 2.8 L 21.0-51.0 % Monocytes (%) (Auto) 5.9 3.0-13.0 % Eosinophils (%) (Auto) 0.7 0.0-8.0 % Basophils (%) (Auto) 0.1 0.0-5.0 % Neutrophils # (Auto) 13.4 H 1.8-7.7 K/uL Lymphocytes # (Auto) 0.4 L 1.0-4.8 K/uL Monocytes # (Auto) 0.9 0.1-1.0 K/uL Eosinophils # (Auto) 0.11 0.00-0.70 K/uL Basophils # (Auto) 0.02 0.00-0.20 K/uL Absolute Immature Granulocyte (auto 0.65 0-1 K/uL Nucleated Red Blood Cells 0.3 H 0.0-0.19 % Erythrocyte Sedimentation Rate 58 H 0-15 MM/HR Chemistry Labs: Test 10/01/24 05:12 10/01/24 05:03 09/30/24 14:39 09/30/24 10:42 Range/Units Whole Blood Glucose 209 H 70-110 MG/DL Sodium Level 134 L 136-145 mmol/L Potassium Level 4.5 3.5-5.1 mmol/L Chloride Level 93 L 101-111 mmol/L Carbon Dioxide Level 23 21-32 mmol/L Blood Urea Nitrogen 115 *H 7-18 mg/dL Creatinine 10.9 *H 0.5-1.3 mg/dL Glomerular Filtration Rate Calc 5 >90 mL/min Random Glucose 205 H 70-105 mg/dL Lactic Acid Level 1.3 0.8-2.5 mmol/L Total Calcium 5.4 *L 8.5-10.1 mg/dL Phosphorus Level 11.0 H 2.5-4.9 mg/dL Ferritin 447 H 30-400 ng/mL Total Bilirubin 0.5 0.2-1.0 mg/dL Aspartate Amino Transf (AST/SGOT) 71 H 10-37 U/L Alanine Aminotransferase (ALT/SGPT) 1236 *H 12-78 U/L Alkaline Phosphatase 169 H 50-136 U/L Ammonia 15 11-32 umol/L Total Protein 5.2 L 6.0-8.3 g/dL Albumin 2.0 L 3.5-5.0 g/dL Iron Level 55 #L 65-175 mcg/dL Total Iron Binding Capacity 203 L 250-450 mcg/dL Percent Iron Saturation 27.0 L 30-44 % C-Reactive Protein, Quantitative 17.60 H 0.5-3.0 mg/L Procalcitonin 6.88 H 0.05-0.5 ng/mL Bedside Glucose Comment Protocol Initiated Test 09/30/24 09:27 Range/Units Whole Blood Ketones Quantitative 0.1 0.0-0.6 mmol/L Coagulation Labs: Test 10/01/24 05:03 Range/Units Prothrombin Time 11.7 H 9.6-11.6 SEC Prothromb Time International Ratio 1.05 0.85-1.15 Activated Partial Thromboplast Time 26.4 26.3-35.5 SEC Diagnostics / Radiology: [Copy/Paste Echos/Imaging Report here] Impression and Plan: NSTEMI Volume overload 2/2 progression of ESRD Influenza A, Tamiflu started on 09/22/2024 Bilateral pneumonia HHS and DKA, on Insulin gtt HTN HLD DM type II 2D echo on 04/06/2024 demonstrated an EF of 45-50% Lexiscan stress test on 04/07/2024 demonstrated a fixed basal mid inferolateral and basal inferior defect with no reversible ischemia NSTEMI Troponin of 5531, 5716, 8278, and 6392 EKG demonstrated sinus tachycardia with a heart rate of 121 beats per minute, LAE, and diffuse ischemia On heparin drip per ACS protocol, started. Patient has completed more than 48 hours of IV heparin and has been since discontinued -patient require a total of 12 months of dap (aspirin 81 mg daily/Plavix 75 mg daily) in addition to Lipitor 40 mg q.h.s and Toprol XL 25 mg daily -TTE showed severely hypokinetic inferior wall, EF 35-40 %, prior Lexiscan stress test shows fixed defects in the inferior wall . -Patient is currently flu positive and his luekocytosis continues to improve on IV abx. Volume reduction via HD as patient is oliguric. -The patient underwent coronary CTA that showed severe stenosis ( Prox-mid LAD 90 % stenosis, Prox and mid LCx 90 % stenosis ) CAD -RAD 4 A. -An extensive discussion took place with the patient regarding the need to proceed with a coronary angiogram , all risks were explained , the patient verbalized understanding and consents to move forward with the procedure today in AM #Acute on chronic HFrEF: Presumed to be ischemic cardiomyopathy, LVEF 35-40% with inferior wall hypokinesis. NYHA III, volume overloaded, stage C Prior Lexiscan stress test with fixed inferior defect suggestive of scar Given his soft systolic blood pressures electrolyte derangements ( hyperkalemia ) we will defer use of ACEi/ARBs /aldactone GDMT : Continue Toprol-XL 25 mg b.i.d. Strict I's and O's and daily weights. Volume reduction via HD, pending for HD tomorrow Nephrology is following, recommendations appreciated Thank you for this consult cardiology will continue to follow along for GDMT optimization and coronary angiogram ATTESTATION BY PHYSICIAN I have seen and examined the patient, reviewed the above documentation, participated in medical decision making, made necessary modifications, and agree with the treatment plan as documented by my mid-level provider above. MD JIMBO Rick JAMES R MD Oct 01, 2024 08:01
[2024-10-01] MEDS: GABApentin 100 MG CAPSULE PO SCH (08:21)
[2024-10-01] MEDS ORDERED: GLUCAGON 1MG KIT 1 MG ML IM PRN (08:30)
--- NOTE | 2024-10-01 08:42 | PRN ---
PROCEDURE REPORT DATE OF PROCEDURE: Oct 01, 2024 TIPPLE WORKER: [Ash Gonzales MD ] PROCEDURE PERFORMED: Conscious sedation Ultrasound guided right radial artery access Selective left coronary artery angiogram Selective right coronary artery angiogram Left heart catheterization TR band 13 armaan over right radial artery INDICATION: Abnormal CCTA DESCRIPTION OF PROCEDURE: After informed consent was obtained, the patient was prepped and draped in the usual sterile fashion. A 6 Angolan arterial sheath was inserted in the right radial artery using ultrasound guidance with first pass wall puncture. The arterial sheath was aspirated and flushed. A 6 Angolan JL 3.5 was then advanced to the ascending aorta over an exchange length J-tip guidewire, was aspirated and flushed, and was used for selective coronary angiograms in multiple obliquities. A JR-4 was advanced in a similar fashion to the ascending aorta over the J-tipped guidewire and was used for selective right coronary angiograms in multiple oblique views with findings as outlined below. The JR-4 catheter advanced into the LV and pressures were obtained with a pull-back across the aortic valve. A TR band was placed over right radial artery. FLUOROSCOPY TIME: 3.2 min LEFT HEART HEMODYNAMICS: LVEDP 35 mm Hg and no gradient Ao CORONARY ANGIOGRAM: LEFT MAIN: Patent and 0% stenosis. Gives rise to LCx, RI and LAD. LEFT ANTERIOR DESCENDING: Large vessel giving rise to two Diagonal branches. There is 90-95% prox LAD stenosis just after the first diagonal artery with ERIC 3 flow. D1 is large with 50-60% proximal stenosis RAMUS INTERMEDIUS: Large, with 30-40% proximal stenosis LEFT CIRCUMFLEX: Large and gives rise to three OM branches. 70-80% mid stenosis becoming 99% subtotally occluded at the mid-distal Lcx at OM3 take off. OM1 is small (1.5mm). OM2 has 50-60% proximal stenosis. OM3 has 99% subtotal occlusion at the ostium RIGHT CORONARY ARTERY: Large, dominant vessel giving rise to PDA and PL branches. 20-30% mid stenosis. PDA has 50-60% proximal and 80-90% distal stenosis. HEMOSTASIS: TR band 12 armaan over right radial artery INTERVENTIONS: None. COMPLICATIONS: None FINDINGS: Normal coronary anatomy and severe multivessel CAD. ESTIMATED BLOOD LOSS: 5 cc RECOMMENDATIONS/INSTRUCTIONS: Aggressive risk factor modification and hold P2Y12 inhibitors while we await CV surgery recs Consult CV surgery for CABG eval CONTRAST DELIVERED TO PATIENT (mL): 80cc MD JIMBO Cole JAMES R MD Oct 01, 2024 08:41
--- NOTE | 2024-10-01 08:52 | NUR ---
RETURN TO UNIT BACK FROM DISPOSAL WORKER. IN NO DISTRESS. NO BLEEDING FROM CATH SITE RIGHT WRIST
[2024-10-01] MEDS ORDERED: INSULIN GLARgine 100 UNITS/ML 10 ML VIAL SQ SCH (09:00)
--- NOTE | 2024-10-01 10:00 | NUR ---
PT follow up note: Patient underwent heart cath this am. To be on bed rest 4-6 hrs. Plan is for CABG later this week. PT team to follow.
--- NOTE | 2024-10-01 12:17 | PN ---
[facility] PROGRESS NOTE Date of Service: Oct 01, 2024 Time of Service: 11:53 SUBJECTIVE: This is a 49-year-old male with past medical history of CKD not on hemodialysis, diabetes, hypertension, hyperlipidemia and obesity who presents to the ED for complaints of cough and chest congestion which started last Sunday and getting worse on Sunday. Patient reports coughing up pinkish colored thick phlegm, loss of appetite and on Sunday started not eating unable to sleep, vomiting and having chest pain triggered by persistent coughing he said.Patient reports having soreness due to hard cough he said.Patient reports having sweeling on both lower extremities and started having shortness of breath and today he started having non bloody diarrhea. Neela was at bedside during my evaluation. Upon arrival to ER a STEMI alert was activated per ER MD and spoke to Social Media Marketing Manager transportation supervisor and as per report patient is possibly going to cathlab tomorrow and patient is going to be started on Heparin and Insulin drip. Seen and examined patient in the Er awake,alert and coherent,appears weak looking.Patient denies fever,palpitation ,dizziness ,sore throat and headache. Latest vital signs temperature 98.1, heart rate 108, respiration 30 blood pressure 130/68 saturation 91% on 4 L nasal cannula. Labs: WBC 11.2, hemoglobin 9, hematocrit 27, platelet count 238, neutrophils 88. PH 7.32, CO2 26, PO2 49.6, bicarb 13, PO2 80 base excess -11.3. Sodium 129, potassium 5.9, chloride 93, CO2 19, BUN 88, creatinine 8.2, GFR seven glucose 876 , lactic acid 3.0-3.2, troponin 5531 albumin 2.1. Influenza A positive influenza B negative SARs COVID negative. Strep A negative. Chest x-ray result revealed extensive bilateral mid to lower lung pneumonia right greater than left. First ECG result revealed sinus tachycardia heart rate 121 probable left atrial enlargement repolarization abnormal suggest ischemia diffuse leads ST-elevation consider anterior injury. Second EKG result revealed sinus tachycardia repolarization abnormality suggest ischemia diffuse leads borderline ST elevation anterior leads heart rate 108. While in the ER patient received Tamiflu 75 mg p.o., 1 L NS bolus, Lopressor 5 mg IV, insulin 10 units IV, Zosyn IV, Zofran 4 mg IV and Phenergan codeine 10 mL p.o. we will admit patient in ICU for further medical management. 09/29/24 Patient was seen and examined at bedside. No acute events overnight. Today his vitals are blood pressure 103/73, pulse rate respiratory rate 15 and SpO2 96% on room air and tolerating well, T-max 97.5. He is scheduled for hemodialysis today. And a abdominal ultrasound was performed yesterday, no evidence of gallstones or hydronephrosis, was done to rule out liver cirrhosis due to elevated liver enzymes. AST came down from 6752 to 365, ALT from 4300 to 2760, ALP from 233-194, enzymes were elevated probably due to shock liver. His white count has been coming down from 22 to 18.6. Del Cid's catheter was discontinued last night, strict input and output monitoring he is being maintained. CT showed a distended appendix with surrounding inflammatory changes and possibility of acute appendicitis can not be excluded but patient denies any lower quadrant pain or nausea or vomitings or McBurney point tenderness. We will follow pulmonology, Nephrology and Cardiology recommendations. 09/30/24 Patient was seen and examined at bedside. No acute events overnight. Coronary angiogram showed noncalcified plaque in the proximal and mid LAD with 90% stenosis and a noncalcified plaque in the proximal and mid left circumflex with 90% stenosis. He is planned for catheterization the procedure in the morning with Dr. Gonzales tomorrow. Patient needs PermCath before he can be discharged home for dialysis. Dr. Page will work on PermCath after PCI when the patient is stable. He was started on Plavix and atorvastatin yesterday. Will replete his calcium and give him a dose of vitamin-D. Lactic acid was elevated this morning but came down to normal. 3200 mL was ultrafiltered yesterday and he tolerated it well. 10/01/24 Patient was seen and examined at bedside. He is alert, awake and oriented. No acute events overnight. Patient was taken to the [facility] this morning but couldn't do the procedure because his arteries were stenosed than expected and plan is to do a CABG later this week. Changed his insulin lantus and started on lispro, glucose came down from 400s to 300s, still very hyperglycemic, will consult endocrinology for recommendations. Remarkable labs are sodium 134, chloride 93. BUN 115, Creatinine 10.9, Corrected calcium 7.2, phosphorous 11, ferritin 447, AST 17, ALT 1236, ALP 169, total protein 5.2, albumin 2.0, WBC 15.5, hb 8.7. will replete his calcium REVIEW OF SYSTEMS CONSTITUTIONAL: Denies fevers, chills, or night sweats. No unintentional weight loss reported. NEUROLOGICAL: Denies headache, amaurosis fugax, motor weakness, sensory deficit, vertigo/spinning sensation, gait abnormalities, or tremors. ENT: No hearing loss, otalgia, otorrhea, rhinitis, rhinorrhea, hoarseness, or sore throat. CARDIOVASCULAR: Denies orthopnea shortness of breaths and chest pain Denies paroxysmal nocturnal dyspnea, palpitations, life-threatening arrhythmias, claudication. PULMONARY: Denies productive cough , pleuritic chest pain and shortness of breaths SLEEP: Complains of unable to sleep Denies morning headaches, daytime s omnolence or napping. Denies waking from sleep. Denies knowledge of snoring. GASTROINTESTINAL: Denies loss of appetite, vomiting and diarrhea Denies any type of dysphagia to either liquids or solids. Denies nausea, vomiting, pyrosis, early satiety, abdominal pain, diarrhea, constipation, or changes in stool consistency or caliber. Denies coffee-ground emesis, hematemesis, hematochezia, or melanotic stools. GENITOURINARY: Denies frequency, urgency, nocturia, hematuria or incontinence (Storage/Irritative symptoms.) Low urinary stream, straining to void, urinary intermittency or hesitancy, splitting of the voiding stream, terminal dribbling. ENDOCRINOLOGIC: Denies polyuria, polydipsia, polyphagia or heat/cold intolerances. Patient reports not taking medications for diabetes because he was not eating. HEMATOLOGIC: Denies thrombophilia/previous clots, or coagulopathy/bleeding disorders. ONCOLOGIC: Denies personal history of malignancy. DERMATOLOGIC: Denies rashes or pruritus. PSYCHIATRIC: Denies any suicidal or homicidal ideation. Denies hallucinations. PHYSICAL EXAM GENERAL APPEARANCE: The patient is awake, alert, and oriented appears generally weak NEUROLOGICAL: Cranial nerves II-XII grossly intact. Motor is 5/5 in bilateral upper and lower extremities proximal to distal. No sensory deficits. HEENT: Face is symmetric. Pupils are equal and reactive. Extraocular movements are intact. NECK: Supple. No JVD. No thyromegaly. No submental, submandibular, pre- /postauricular, occipital or supraclavicular lymphadenopathy. CHEST: Normal chest expansion. No Telemetry. LUNGS: . Diminished lung sounds to bilateral lung james CARDIOVASCULAR: Regular. S1 and S2 normal. No appreciable rubs, murmurs or gallops. ABDOMEN: Round and firmed There is no rebound, voluntary guarding, or rigidity. : Deferred. No Del Cid. EXTREMITIES: Bilateral lower extremity edema No clubbing. Good capillary refill. SKIN: No skin breakdown. Vital Signs (last 8hr) Date Time Temp Pulse Resp B/P (MAP) Pulse Ox O2 Delivery O2 Flow Rate FiO2 10/01/24 11:30 75 18 154/83 Room Air 10/01/24 11:15 75 18 153/79 Room Air 10/01/24 11:00 75 18 149/70 Room Air 10/01/24 10:55 97.9 75 18 160/63 Room Air 10/01/24 10:05 98 Room Air* 0 21 10/01/24 09:00 97.7 75 18 152/77 98 Room Air 10/01/24 08:19 97.9 74 16 125/69 98 Room Air 10/01/24 06:29 72 18 N/A Room Air 10/01/24 04:06 98.1 79 18 135/80 99 Room Air 21 LABS: Laboratory: Test 10/01/24 10:49 10/01/24 05:03 09/30/24 14:39 09/30/24 10:42 Range/Units Whole Blood Glucose 328 #H 70-110 MG/DL White Blood Count 15.5 H 4.8-10.8 K/uL Red Blood Count 3.00 L 4.50-6.20 MIL/uL Hemoglobin 8.7 L 14.0-18.0 g/dL Hematocrit 26.3 L 42-54 % Mean Corpuscular Volume 87.7 79-99 fL Mean Corpuscular Hemoglobin 29.0 27.0-33.0 pg Mean Corpuscular Hemoglobin Concent 33.1 32.0-36.0 g/dL Red Cell Distribution Width 13.7 11.0-15.5 % Platelet Count 215 130-400 K/uL Mean Platelet Volume 11.4 H 7.5-10.5 fL Immature Granulocyte % (Auto) 4.2 H 0-1 % Neutrophils (%) (Auto) 86.3 H 40.0-77.0 % Lymphocytes (%) (Auto) 2.8 L 21.0-51.0 % Monocytes (%) (Auto) 5.9 3.0-13.0 % Eosinophils (%) (Auto) 0.7 0.0-8.0 % Basophils (%) (Auto) 0.1 0.0-5.0 % Neutrophils # (Auto) 13.4 H 1.8-7.7 K/uL Lymphocytes # (Auto) 0.4 L 1.0-4.8 K/uL Monocytes # (Auto) 0.9 0.1-1.0 K/uL Eosinophils # (Auto) 0.11 0.00-0.70 K/uL Basophils # (Auto) 0.02 0.00-0.20 K/uL Absolute Immature Granulocyte (auto 0.65 0-1 K/uL Nucleated Red Blood Cells 0.3 H 0.0-0.19 % Prothrombin Time 11.7 H 9.6-11.6 SEC Prothromb Time International Ratio 1.05 0.85-1.15 Activated Partial Thromboplast Time 26.4 26.3-35.5 SEC Sodium Level 134 L 136-145 mmol/L Potassium Level 4.5 3.5-5.1 mmol/L Chloride Level 93 L 101-111 mmol/L Carbon Dioxide Level 23 21-32 mmol/L Blood Urea Nitrogen 115 *H 7-18 mg/dL Creatinine 10.9 *H 0.5-1.3 mg/dL Glomerular Filtration Rate Calc 5 >90 mL/min Random Glucose 205 H 70-105 mg/dL Lactic Acid Level 1.3 0.8-2.5 mmol/L Total Calcium 5.4 *L 8.5-10.1 mg/dL Phosphorus Level 11.0 H 2.5-4.9 mg/dL Ferritin 447 H 30-400 ng/mL Total Bilirubin 0.5 0.2-1.0 mg/dL Aspartate Amino Transf (AST/SGOT) 71 H 10-37 U/L Alanine Aminotransferase (ALT/SGPT) 1236 *H 12-78 U/L Alkaline Phosphatase 169 H 50-136 U/L Ammonia 15 11-32 umol/L Total Protein 5.2 L 6.0-8.3 g/dL Albumin 2.0 L 3.5-5.0 g/dL Erythrocyte Sedimentation Rate 58 H 0-15 MM/HR Iron Level 55 #L 65-175 mcg/dL Total Iron Binding Capacity 203 L 250-450 mcg/dL Percent Iron Saturation 27.0 L 30-44 % C-Reactive Protein, Quantitative 17.60 H 0.5-3.0 mg/L Procalcitonin 6.88 H 0.05-0.5 ng/mL Bedside Glucose Comment Protocol Initiated Test 09/30/24 09:27 Range/Units Whole Blood Ketones Quantitative 0.1 0.0-0.6 mmol/L Current Medications Medications (Trade) Dose Ordered Sig/Sierra Route PRN Reason Start Time Stop Time Status Last Admin Dose Admin Acetaminophen (TYLenol 325MG TAB) 650 mg Q4H PRN PO MILD PAIN (1-3) 09/21/24 19:30 10/21/24 19:29 09/30/24 01:32 650 MG Acetaminophen (TYLenol 325MG TAB) 650 mg Q6H PRN PO TEMPERATURE GREATER THAN 101.5 09/21/24 19:30 10/21/24 19:29 Albumin Human 100 ml @ 0 mls/hr AD STAT IV 09/25/24 23:09 09/25/24 23:12 DC 09/25/24 23:17 100 MLS/HR Albuterol (DUOneb) 1 udvial [id number] IH 09/21/24 22:00 09/25/24 09:59 DC 09/25/24 06:43 1 UDVIAL Albuterol (DUOneb) 1 udvial [id number] IH 09/25/24 10:00 09/26/24 15:22 DC 09/26/24 11:17 1 UDVIAL Albuterol (DUOneb) 1 udvial [id number] PRN IH WHEEZING 09/26/24 15:30 10/21/24 21:59 Aspirin (Aspirin 81mg Ec Tab) 81 mg DAILY PO 09/22/24 09:00 10/22/24 08:59 09/30/24 08:50 81 MG Atorvastatin Calcium (LIPItor 20MG) 20 mg HS PO 09/23/24 21:00 09/27/24 10:38 DC 09/26/24 20:36 20 MG Atorvastatin Calcium (LIPItor 40MG) 40 mg HS PO 09/22/24 21:00 09/22/24 20:17 DC Atorvastatin Calcium (LIPItor 40MG) 40 mg HS PO 09/30/24 21:00 10/30/24 20:59 09/30/24 20:53 40 MG Azithromycin 250 ml @ 250 mls/hr Q24H IVPB 09/21/24 18:00 09/21/24 18:14 DC Calcium Carbonate (Oyster Shell Ca 500mg Tab) 1,000 mg TID PO 09/30/24 14:00 10/30/24 13:59 09/30/24 20:53 1,000 MG Cefepime HCl (MAXipime 1 GM vial) 1 gm Q24H IVPB 09/23/24 08:30 09/26/24 11:14 DC 09/25/24 08:36 1 GM Chlordiazepoxide HCl (LIBrium 25 MG CAP) 25 mg Q2H PRN PO ALCOHOL WITHDRAWAL PROTOCOL 09/22/24 20:30 09/29/24 20:29 DC 09/28/24 23:59 25 MG Chlordiazepoxide HCl (LIBrium 25 MG CAP) 50 mg Q1H PRN PO ALCOHOL WITHDRAWAL PROTOCOL 09/22/24 20:30 09/29/24 20:29 DC Clopidogrel Bisulfate (plaVIX 75MG) 75 mg DAILY PO 09/24/24 09:00 09/26/24 07:14 DC 09/25/24 08:38 75 MG Clopidogrel Bisulfate (plaVIX 75MG) 75 mg DAILY PO 09/30/24 09:00 10/01/24 08:26 DC 09/30/24 08:49 75 MG Dextrose (D50w) 50 ml AD PRN IV HYPOGLYCEMIA PROTOCOL 09/30/24 17:30 10/01/24 08:25 DC Dextrose (D50w) 50 ml AD PRN IV HYPOGLYCEMIA PROTOCOL 10/01/24 08:30 10/31/24 08:29 Dextrose/Sodium Chloride 1,000 ml @ 0 mls/hr AD IV 09/22/24 00:00 09/23/24 21:23 DC 09/22/24 09:49 150 MLS/HR Doxycycline Hyclate (Doxycycline Hyclate) 100 mg BID PO 09/21/24 21:00 09/30/24 23:59 DC 09/30/24 20:53 100 MG Epoetin Moses-epbx (Retacrit) 10,000 unit QMOWEFR SQ 10/01/24 09:00 10/31/24 08:59 Famotidine (Pepcid 20mg Vial) 10 mg DAILY IV 09/22/24 09:00 09/27/24 10:35 DC 09/27/24 09:09 10 MG Famotidine (Pepcid 20mg Tab) 10 mg Q48H PO 09/21/24 19:30 09/21/24 20:00 DC Ferrous Sulfate (Ferrous Sulfate) 325 mg DAILY PO 09/23/24 09:00 10/23/24 08:59 09/30/24 08:50 325 MG Fish Oil (Fish Oil 1000 Mg/Cap) 2,000 mg BID PO 09/22/24 21:00 10/22/24 20:59 09/30/24 20:53 2,000 MG Fluconazole/ Sodium Chloride (DiFLUCan 200 MG/ NS 100 ML) 200 mg Q24H IV 09/25/24 16:00 09/27/24 10:36 DC 09/26/24 14:38 200 MG Furosemide (LASix 40MG VIAL) 80 mg Q12H IV 09/22/24 21:00 09/26/24 15:22 DC 09/26/24 13:20 80 MG Gabapentin (NEURontin 100 mg CAP) 100 mg DAILY PO 10/01/24 09:00 10/24/24 20:59 Gabapentin (NEURontin 100 mg CAP) 100 mg TID PO 09/24/24 21:00 09/30/24 17:37 DC 09/30/24 14:07 100 MG Glucagon (Glucagon 1mg Kit) 1 mg AD PRN IM HYPOGLYCEMIA PROTOCOL 09/30/24 17:30 10/01/24 08:25 DC Glucagon (Glucagon 1mg Kit) 1 mg AD PRN IM HYPOGLYCEMIA PROTOCOL 10/01/24 08:30 10/31/24 08:29 Guaifenesin/ Dextromethorphan (RobiTUSSin DM 200/20MG 10ML) 10 ml Q4H PRN PO COUGH 09/21/24 19:30 10/21/24 19:29 09/23/24 22:06 10 ML Heparin Sodium (Porcine) (HEParin 5,000 UNIT VIAL) *calculation based on ACTUAL B... AD PRN IV HEPARIN PROTOCOL 09/21/24 19:30 09/26/24 07:14 DC Heparin Sodium (Porcine) (HEParin 5,000 UNIT VIAL) 10,000 unit AD IRRIG 09/27/24 14:00 10/27/24 13:59 09/27/24 17:18 10,000 UNIT Heparin Sodium/ Dextrose 250 ml @ 0 mls/hr Q6H IV 09/21/24 19:30 09/26/24 18:36 DC 09/25/24 04:13 14.7 MLS/HR Insulin Glargine (LANtus 100 UNITS/ML 10 ML VIAL) 10 units BID@0730,2100 SQ 09/22/24 21:00 09/26/24 11:15 DC 09/25/24 20:44 10 UNITS Insulin Glargine (LANtus 100 UNITS/ML 10 ML VIAL) 10 units HS SQ 09/30/24 21:00 09/30/24 17:26 DC Insulin Glargine (LANtus 100 UNITS/ML 10 ML VIAL) 15 units BID@0730,2100 SQ 09/26/24 21:00 09/30/24 17:13 DC 09/30/24 07:03 15 UNITS Insulin Glargine (LANtus 100 UNITS/ML 10 ML VIAL) 20 units AM SQ 10/01/24 09:00 09/30/24 17:26 DC Insulin Glargine (LANtus 100 UNITS/ML 10 ML VIAL) 30 units HS SQ 09/30/24 21:00 10/30/24 20:59 09/30/24 20:46 30 UNITS Insulin Human Lispro (HumaLOG LISpro 100 UNIT/ML 3ML) 7 unit TIDAC SQ 10/01/24 07:30 10/31/24 07:29 10/01/24 10:59 7 UNIT Insulin Human Regular (humuLIN R 100 UNIT/ML 3ML) INSULIN SLIDING SCAL... ACHS SQ 09/24/24 07:30 10/24/24 07:29 10/01/24 10:58 16 UNIT Insulin Human Regular 100 unit/ Sodium Chloride 101 ml @ 0 mls/hr PROTOCOL IV 09/21/24 20:00 09/23/24 21:20 DC 09/21/24 21:01 9.8 MLS/HR Insulin Human Regular 100 unit/ Sodium Chloride 101 ml @ 0 mls/hr PROTOCOL IV 09/22/24 00:00 09/22/24 00:03 DC Insulin Human Regular 100 unit/ Sodium Chloride 101 ml @ 0 mls/hr PROTOCOL IV 09/26/24 18:30 09/27/24 10:25 DC 09/26/24 18:36 10 MLS/HR Magnesium Sulfate 50 ml @ 0 mls/hr PROTOCOL IV 09/22/24 00:00 09/23/24 21:23 DC Magnesium Sulfate 50 ml @ 0 mls/hr PROTOCOL IV 09/26/24 18:30 09/27/24 10:25 DC Magnesium Sulfate 50 ml @ 0 mls/hr PROTOCOL PRN IV OTH 09/22/24 00:00 09/22/24 00:04 DC 09/21/24 23:52 25 MLS/HR Mannitol 245 ml @ 0 mls/hr AD IV 09/22/24 00:30 09/22/24 20:17 DC Mannitol 500 ml @ 0 mls/hr AD IV 09/22/24 00:30 09/22/24 14:33 DC Mannitol (Osmitrol 20% 250ml Bag) 49 gm AD IV 09/22/24 00:00 09/22/24 00:28 DC Methylprednisolone Sodium Succinate (Solu-medROL 40MG) 40 mg BID IVP 09/22/24 09:00 09/27/24 10:35 DC 09/26/24 20:37 40 MG Metoprolol Succinate (TopROL XL) 25 mg BID PO 09/26/24 09:00 10/26/24 08:59 09/30/24 20:53 25 MG Metoprolol Succinate (TopROL XL) 50 mg BID PO 09/24/24 21:00 09/26/24 07:14 DC 09/24/24 19:45 50 MG Metoprolol Tartrate (loprESSOR) 12.5 mg BID PO 09/22/24 21:00 09/24/24 16:38 DC 09/24/24 12:07 12.5 MG Miscellaneous Medication (Folic Acid/ Vitamin B Comp W-C (I[place] Tablet)) 1 tab DAILY PO 09/23/24 09:00 09/22/24 15:56 DC Morphine Sulfate (morPHINE 2MG SYG) 2 mg Q4H PRN IVP SEVERE PAIN (7-10) 1/31/25 01:30 10/01/24 04:29 DC Multivitamins Therapeutic (Multivitamin Tablet) 1 tab DAILY PO 09/23/24 09:00 10/23/24 08:59 09/30/24 08:50 1 TAB Nifedipine (adALAT 30MG) 60 mg DAILY PO 09/23/24 09:00 09/28/24 12:01 DC 09/25/24 08:37 60 MG Nitroglycerin (Nitroglycerin 1gm Oint) 0.5 inch Q8H TD 09/21/24 19:30 09/27/24 10:34 DC 09/25/24 12:44 0.5 INCH Norepinephrine 250 ml @ 0 mls/hr AD PRN IV DIRECTED 09/26/24 01:30 09/27/24 10:34 DC 09/26/24 01:40 0 MLS/HR Ondansetron HCl (zoFRAN 4MG INJ) 4 mg Q6H PRN IVP NAUSEA/VOMITING 09/26/24 01:30 10/26/24 01:29 09/27/24 08:51 4 MG Oseltamivir Phosphate (Tamiflu) 75 mg DAILY PO 09/22/24 09:00 09/23/24 13:29 DC 09/23/24 08:38 75 MG Oseltamivir Phosphate (Tamiflu) 75 mg Q24H PO 09/26/24 17:00 09/27/24 17:01 DC 09/27/24 18:04 75 MG Oseltamivir Phosphate (Tamiflu) 75 mg QTUTHSA[DIALYSIS] PO 09/23/24 16:00 09/23/24 17:04 DC Oseltamivir Phosphate (Tamiflu) 75 mg QTUTHSA[DIALYSIS] PO 09/23/24 22:00 09/26/24 16:32 DC 09/25/24 16:09 75 MG Pantoprazole Sodium (PROTonix 40MG INJ) 40 mg BID IVP 09/27/24 21:00 10/27/24 20:59 09/30/24 20:53 40 MG Pharmacy Profile Note (Pharmacy Communication) 1 each ONCE MISC 09/23/24 13:00 09/23/24 13:25 DC Pharmacy Profile Note (Pharmacy Communication) 1 each ONCE MISC 09/23/24 21:30 09/24/24 07:08 DC Pharmacy Profile Note (Pharmacy Communication) 1 each PROTOCOL PRN MISC ETOH Withdrawal Score changes 09/22/24 20:30 09/29/24 20:29 DC Piperacillin Sod/ Tazobactam Sod 50 ml @ 12.5 mls/hr Q12H IV 09/21/24 21:00 09/23/24 08:06 DC 09/22/24 20:43 12.5 MLS/HR Piperacillin Sod/ Tazobactam Sod (Zosyn 3.375gm+NS 50ml) 3.375 gm Q12H IV 09/26/24 11:30 10/06/24 11:29 10/01/24 00:21 3.375 GM Potassium Chloride 20 meq/ Sodium Chloride 1,010 ml @ 0 mls/hr PROTOCOL IV 09/22/24 00:00 09/23/24 21:23 DC Potassium Chloride/Dextrose/ Sod Cl 1,000 ml @ 0 mls/hr AD IV 09/22/24 00:00 09/23/24 21:23 DC Prednisone (deltaSONE/ oraSONE 20MG TAB) 20 mg DAILY PO 09/28/24 09:00 10/01/24 08:59 DC 09/30/24 08:50 20 MG Sodium Bicarbonate (Sodium Bicarbonate) 650 mg TID PO 09/24/24 09:00 09/27/24 10:34 DC 09/26/24 20:36 650 MG Sodium Chloride 250 ml @ 0 mls/hr Q0M IV 09/25/24 23:00 09/27/24 10:34 DC Sodium Chloride 1,000 ml @ 0 mls/hr ONCE IV 09/23/24 19:30 09/27/24 13:51 DC 09/26/24 12:15 1,000 MLS/HR Sodium Chloride 1,000 ml @ 0 mls/hr ONCE IV 09/27/24 14:30 09/27/24 13:51 DC Sodium Chloride 1,000 ml @ 0 mls/hr ONCE IV 09/27/24 15:00 10/27/24 14:59 09/29/24 16:53 1,000 MLS/HR Sodium Chloride 1,000 ml @ 100 mls/hr Q10H IV 09/21/24 19:30 09/27/24 10:34 DC 09/23/24 12:53 100 MLS/HR Sodium Chloride 1,000 ml @ 200 mls/hr PROTOCOL IV 09/22/24 00:00 09/23/24 21:23 DC Thiamine HCl 100 mg/Folic Acid 1 mg/Multivitamins/ Minerals 10 ml/ Sodium Chloride 1,011.2 ml @ 100 mls/ hr Q24H IV 09/22/24 20:30 09/25/24 06:37 DC 09/22/24 20:43 100 MLS/HR Vancomycin HCl 250 ml @ 125 mls/hr Q72H IV 09/22/24 20:30 09/23/24 08:04 DC 09/22/24 20:48 125 MLS/HR Vancomycin HCl (Vancomycin 500mg+NS 100ml Ivpb) 1,000 mg DAILY08 IV 09/23/24 08:00 09/22/24 20:26 DC Vancomycin HCl (Vancomycin 750mg) 750 mg MWFPHD IVPB 09/26/24 16:00 10/03/24 23:29 Hold Vancomycin HCl (Vancomycin 750mg) 750 mg Q24H IVPB 09/23/24 23:30 09/25/24 06:26 DC 09/24/24 22:43 750 MG Vitamin B Complex/ Vit C/Folic Acid (Nephrovite Tablet) 1 cap DAILY PO 09/23/24 09:00 10/23/24 08:59 09/30/24 08:49 1 CAP DIAGNOSTICS / RADIOLOGY: [ ] ASSESSMENT: Hyperosmolar Hyperglycemic Syndrome POA NSTEMI POA Influenza bronchopneumonia with sepsis POA Acute Hypoxemic Respiratory Failure POA Acute on chronic renal failure with concern for ATN POA Metabolic acidosis POA Lactic acidosis POA CKD stage 4 POA Uncontrolled Diabetes POA Protein Calorie malnutrition POA PLAN: Iron profile and APR labs Procalcitonin and LA Downgraded to medical floor Continue broad-spectrum antibiotics Continue to trend WBC in Continue to replace electrolytes IV protocol Continue the patient on long-acting as well as insulin sliding scale Follow a.m. labs GI and DVT prophylaxis Disposition: Pending improvement in clinical condition, CTA to evaluate coronary anatomy tomorrow if heart rate remains controlled, HD tomorrow per retail leasing agent, evaluated by Cardiothoracic surgeon for hemodialysis access. ATTESTATION BY PHYSICIAN I have seen and examined the patient. I reviewed the documentation, medical decision making, and treatment plan as noted by the resident provider above. I agree with the findings and plan of care. Dieudonne Farley MD, NIHITHA MD Oct 01, 2024 12:17
[2024-10-01] MEDS: EPOETIN ALFA-EPBX (NON-ESRD) 10,000 UNIT/ML VIAL SQ SCH (15:34)
[2024-10-01 16:05] LABS: ABG BASE EXCESS -2.3 mmol/L (-2.0-3.0); ABG HCO3 21.4 mmol/L (21.0-28.0); ABG OXYGEN SATURATION 93.3 % (94.0-98.0); ABG PCO2 34 mmHg (35-48); ABG PH 7.416 (7.350-7.450); DEVICE COMMENT RR RN SANDY; PO2, ARTERIAL BG 65.1 mmHg (83.0-108.0); VENT MODE, BG RA (ROOM AIR)
--- NOTE | 2024-10-01 16:23 | HMCIMG ---
Carotid Duplex and color-flow Doppler bilateral History: preop CABG Comparison: None Findings: No significant plaque is identified on either side. Left Internal Carotid Artery Peak Systolic Velocity (PSV), Left Internal Carotid to Common Carotid Artery peak systolic velocity ratio, Right Internal Carotid Artery Peak Systolic Velocity (PSV) and Right Internal Carotid to Common Carotid Artery peak systolic velocity ratio, are all within normal limits. External carotid artery velocities normal bilaterally. Bilateral vertebral arteries show antegrade flow. Impression: Normal exam. NASCET CRITERIA. The degree of internal carotid artery stenosis is based on NASCET criteria. Normal is no stenosis. Mild is less than 50% stenosis. Moderate is 50-69% stenosis. Severe is 70% to 99% stenosis. Total occlusion is no detectable patent lumen.
[2024-10-01] MEDS ORDERED: hydrALAZine 20MG/ML VIAL IV PRN (16:30)
[2024-10-01] MEDS ORDERED: CALCIUM GLUC 1GM 1 GM in 0.9%NACL 100ML 100 ML IV SCH (17:00)
--- NOTE | 2024-10-01 17:13 | PN ---
[facility] PROGRESS NOTE Date Patient Seen: Oct 01, 2024 Time of Visit: 17:13 Supervising Physician: [Dr. Gates] Primary Care Physician: Gama Acosta Outpatient Specialists: [ ] Inpatient Consults: Cardiology, nephrology and critical care team PROBLEM LIST: Septic shock, not POA, resolved Acute Hypoxemic Respiratory Failure, POA, resolved Acute on chronic CHF with reduced EF of 35 40% Nstemi, POA, pending CABG Community acquired influenza A viral pneumoniae w/ superimposed Bilateral bacterial Pneumonia, POA, Sepsis Due To Bilateral Pneumonia And Influenza A Infection, POA Severe transaminitis 2/2 shocked liver not POA ESRD with new onset hemodialysis this admission s/p Rt permacath Recurrent Dka w/ reopening of AGAP and ketones, resolved Acute Metabolic Acidosis 2/2 DkA and SAURABH , POA, improved Hyperkalemia In The Context Of Chronic Kidney Injury, Poa Morbid Obesity BMI 40.5 INTERVAL HISTORY: 09/22/2024: At the time my evaluation, the patient was in the emergency department awaiting bed assignment. The staff nurse reports no acute events overnight. The patient was on a Oxymizer with optimal SpO2. He was normotensive without the need for pressor therapy. There was no complaint of chest pain. There was no abdominal pain, nausea vomiting or diarrhea. The patient continued on a insulin drip per the DKA protocol. He was started on antibiotic and antiviral therapy for management of his condition. Review of la bs today showed no major concern on CBC. Chemistry panel did show a sodium of 135, chloride of 100 and a CO2 of 20 with a anion gap of 15. Blood glucose remains elevated in the 300s. No new complaint. 09/23- saw patient and ED 13 awake alert and oriented x3. 2D echo at bedside being performed. Patient has been afebrile heart rate of 110, blood pressure 116/63 with respiratory rate of 20 saturating 97% with 7 L via nasal cannula oximizer. Urine output 1.4 L in the last 24 hours. On laboratory WBCs are 11.4 H&H trending down 7.6/23.1 with a platelet count that is 178 K. on chemistry sodium 136 potassium of 3.7 chloride 100 carbon dioxide of 19 BUN 106. Creatinine of 8.6 and GFR of 7. Per Dr Armenta pt scheduled for a Mitesh hemodialysis catheter per IR today. Pt continues with Tamiflu, Doxy, Cefepime and MRSA coverage will be added w/ vanco due to suspected MRSA superimposed pneumonia on Influenza pneumonia. On CT chest, abdomen and pelvis shows Acute appearing infiltrates in both lung bases consistent with pneumoniae. No acute finding in the abdomen or pelvis. Del Cid catheter in good position in the urinary bladder. We will continue to follow Neprhology recommendations. 09/24 patient was seen and examined at bedside with primary nurse present. P atient to receive1 unit PRBCs hemoglobin this a.m. 6.8. Continue to monitor closely. Patient to continue on IV antibiotics. Patient's troponin levels trending down. We will continue to follow recommendations of Cardiology. Patient remains hypoxic requiring supplemental oxygen via nasal cannula at L. Patient states does not use home oxygen. Patient is to continue on heparin dr ip. Patient to continue on IV steroids. Patient's echocardiogram revealed EF of 35-40%. Patient's blood cultures have been negative x2 days. Patient remains high risk for decompensation. 09/25 patient was seen and examined at bedside with mother present. At time of visit patient is currently on room air has been weaned off oxygen. Yesterday patient was on 5 L. As per patient is tolerating room air well. Patient denies any chest pain or shortness of breadth, however does report shortness of breath upon minimal exertion. Patient remains on heparin drip. Patient is still currently pending coronary CT to be completed, further recommendations by Cardiology to follow once examined has been completed. Patient to continue on hemodialysis per Nephrology's recommendations. 09/26/24-patient is awake alert and oriented x3. He requires Levophed at 0 point 4 micrograms/kilogram per minute for blood pressure support. He was brought into the ICU overnight due to hypotension and elevated liver enzymes. Current blood pressure of 129/74 heart rate in the 80s respiratory rate of 19 saturating 100% with 7 L via Oxymizer and afebrile. As per RN she is weaning Levophed. Urine output was 100 mL in the last 24 hours he received hemodialysis today with 3.6 L out and had one bowel movement. WBCs spiked up this morning from 17.6224.2 H&H 8.6/25.4 and platelet count is normal 291 K. neutrophils 79.5. Suspect patient aspirated in the episode of hypotension due to increased pulmonary infiltrates to right side and spike in white count and temperature. Patient was panculture and cefepime changed to Zosyn to cover for aspiration pneumonia. On chest x-ray patient with a extensive bilateral infiltrates unchanged. No pneumothorax. Chemistries sodium of 130 potassium is 6.2 chloride of 90 carbon dioxide of 17 with a BUN of 119 and creatinine 9.6 and GFR of six liver enzymes raised AST of 6752 ALT of 4302, alkaline phosphatase of 233 likely from shock liver procalcitonin elevated at 24.31 decreased from admission wishes 70. On repeat BNP patient has a sodium of 134 potassium of 3.5 chloride of 91 carbon dioxide 26 with a anion gap of 17 and ketones of 1.4 we will need to restart insulin drip per DKA protocol. 09/27/24-pt is awake alert and oriented x 3. He is hemodynamically stable and off pressors. He denies any chill, chest pain or increased sob at rest. He does report sob on exertion and reports poor appetite. He is due for HD treatment today. Per RN no major overnight events and he has been afebrile. WBC's are trending down now 20.4, H&H is 8.9/26.3 and platelet count is 220 K. chemistry patient had a sodium of 134 potassium is normal 4.6 chloride of 92 carbon dioxide 24, AGAP has closed, liver enzymes severely elevated consistent with shocked lover but we will order us of abdomen to assess Liver and Gallbladder. Ketones of 0.2. We have discontinued DKA protocol and pt ,may be downgraded from ICU today. 2/ patient was seen and examined at bedside with family present. Patient is awake alert able to answer simple questions appropriately. Patient is on room air appears to be tolerating well. Patient has remained hemodynamically stable. Patient denies any chest pain or shortness of breadth. Denies any nausea vomiting or abdominal pain. Most per primary nurse no acute events to be reported. We will continue to follow recommendations from Nephrology and Cardiology appreciate assistance. We will continue to monitor patient closely 2/ patient was seen and examined at bedside with family present. Patient remains on room air tolerating well. Patient is scheduled for coronary CT today we will follow recommendations from Cardiology. Patient to continue on hemodialysis per Nephrology's recommendations. Patient's WBCs trending down today 18.6 yesterday 22.0. Patient to continue on IV antibiotics. We will continue to monitor patient closely. 09/[address] coronary angiogram which revealed 90% stenosis of the LAD as well as 90% stenosis of the left circumflex. Per bedside nurse, patient was offered stent placement, however refused and is wanting to pursue this as an outpatient. Patient's blood sugar remains elevated in for 0s, we will adjust insulin as indicated. Pro mallory significantly decreased from 70 down to 6. Blood and urine cultures remain negative, sputum cultures growing Dunia. His liver enzymes remain elevated but significantly downtrended. Patient is pending AV fistula for hemodialysis, however CTS is deferring this as an outpatient in order to prioritize his CAD management. 10/01 Patient had abnormal LHC and is referred for CABG. His abdominal U/S was negative for gallstones or ductal dilation. Carotid doppler WNL. CXR consistent with pulmonary venous congestion. Continues on dialysis with temp cath per nephrology, pending AV graft by CTS. Blood sugar is persistently elevated, insulin adjusted per primary. REVIEW OF SYSTEMS: 12 point ROS reviewed with patient. Pertinent positives mentioned above. Otherwise negative. PHYSICAL EXAM: GENERAL: alert, weak, awake oriented x 3 HEENT: EOMI, Sclera non icteric, moist mucosa NECK: Supple, no JVD, trachea midline LUNGS: coarse rhonchi breath sounds bilaterally. No wheezes HEART: Regular rate and rhythm. Normal S1 and S2, without murmurs ABD: Abdomen soft, nontender. Bowel sounds present EXT: No clubbing cyanosis or edema NEURO: Alert and oriented to person, follows commands Vital Signs (last 8hr) Date Time Temp Pulse Resp B/P (MAP) Pulse Ox O2 Delivery O2 Flow Rate FiO2 10/01/24 14:00 98.2 77 18 147/73 Room Air 10/01/24 13:45 75 18 153/92 Room Air 10/01/24 13:30 75 18 139/83 Room Air 10/01/24 13:15 75 18 157/70 Room Air 10/01/24 13:15 75 18 147/41 Room Air 10/01/24 13:00 75 18 150/72 Room Air 10/01/24 12:45 75 18 143/77 Room Air 10/01/24 12:30 75 18 143/77 Room Air 10/01/24 12:15 75 18 154/77 Room Air 10/01/24 12:00 75 18 152/80 Room Air 10/01/24 11:45 75 18 158/85 Room Air 10/01/24 11:30 75 18 154/83 Room Air 10/01/24 11:15 75 18 153/79 Room Air 10/01/24 11:00 75 18 149/70 Room Air 10/01/24 10:55 97.9 75 18 160/63 Room Air 10/01/24 10:50 97.5 63 16 145/72 Room Air 10/01/24 10:05 98 Room Air* 0 21 LABS: Hematology Labs: Test 10/01/24 05:03 09/30/24 14:39 Range/Units White Blood Count 15.5 H 4.8-10.8 K/uL Red Blood Count 3.00 L 4.50-6.20 MIL/uL Hemoglobin 8.7 L 14.0-18.0 g/dL Hematocrit 26.3 L 42-54 % Mean Corpuscular Volume 87.7 79-99 fL Mean Corpuscular Hemoglobin 29.0 27.0-33.0 pg Mean Corpuscular Hemoglobin Concent 33.1 32.0-36.0 g/dL Red Cell Distribution Width 13.7 11.0-15.5 % Platelet Count 215 130-400 K/uL Mean Platelet Volume 11.4 H 7.5-10.5 fL Immature Granulocyte % (Auto) 4.2 H 0-1 % Neutrophils (%) (Auto) 86.3 H 40.0-77.0 % Lymphocytes (%) (Auto) 2.8 L 21.0-51.0 % Monocytes (%) (Auto) 5.9 3.0-13.0 % Eosinophils (%) (Auto) 0.7 0.0-8.0 % Basophils (%) (Auto) 0.1 0.0-5.0 % Neutrophils # (Auto) 13.4 H 1.8-7.7 K/uL Lymphocytes # (Auto) 0.4 L 1.0-4.8 K/uL Monocytes # (Auto) 0.9 0.1-1.0 K/uL Eosinophils # (Auto) 0.11 0.00-0.70 K/uL Basophils # (Auto) 0.02 0.00-0.20 K/uL Absolute Immature Granulocyte (auto 0.65 0-1 K/uL Nucleated Red Blood Cells 0.3 H 0.0-0.19 % Erythrocyte Sedimentation Rate 58 H 0-15 MM/HR Chemistry Labs: Test 10/01/24 16:04 10/01/24 05:03 09/30/24 14:39 09/30/24 09:27 Range/Units Whole Blood Glucose 417 *H 70-110 MG/DL Bedside Glucose Comment Stat Lab Glu Request Sodium Level 134 L 136-145 mmol/L Potassium Level 4.5 3.5-5.1 mmol/L Chloride Level 93 L 101-111 mmol/L Carbon Dioxide Level 23 21-32 mmol/L Blood Urea Nitrogen 115 *H 7-18 mg/dL Creatinine 10.9 *H 0.5-1.3 mg/dL Glomerular Filtration Rate Calc 5 >90 mL/min Random Glucose 205 H 70-105 mg/dL Lactic Acid Level 1.3 0.8-2.5 mmol/L Total Calcium 5.4 *L 8.5-10.1 mg/dL Phosphorus Level 11.0 H 2.5-4.9 mg/dL Ferritin 447 H 30-400 ng/mL Total Bilirubin 0.5 0.2-1.0 mg/dL Aspartate Amino Transf (AST/SGOT) 71 H 10-37 U/L Alanine Aminotransferase (ALT/SGPT) 1236 *H 12-78 U/L Alkaline Phosphatase 169 H 50-136 U/L Ammonia 15 11-32 umol/L Total Protein 5.2 L 6.0-8.3 g/dL Albumin 2.0 L 3.5-5.0 g/dL Iron Level 55 #L 65-175 mcg/dL Total Iron Binding Capacity 203 L 250-450 mcg/dL Percent Iron Saturation 27.0 L 30-44 % C-Reactive Protein, Quantitative 17.60 H 0.5-3.0 mg/L Procalcitonin 6.88 H 0.05-0.5 ng/mL Whole Blood Ketones Quantitative 0.1 0.0-0.6 mmol/L Coagulation Labs: Test 10/01/24 05:03 Range/Units Prothrombin Time 11.7 H 9.6-11.6 SEC Prothromb Time International Ratio 1.05 0.85-1.15 Activated Partial Thromboplast Time 26.4 26.3-35.5 SEC DIAGNOSTICS / RADIOLOGY RESULTS: Exam Type: CHEST 1VW Clinical Information: sob Comparison: None Findings: Right permacath line is noted with tip at the distal superior vena caval level. There is cardiomegaly. There is prominence of the vascular markings consistent with pulmonary venous congestion. IMPRESSION: Findings consistent with pulmonary venous congestion. PLAN CAD management per cardiology Optimize glycemic control Optimize pulmonary function for CABG AVF for dialysis upon discharge Continue IV antibiotics Continue prednisone 20 mg daily Repeat labs in a.m. Rest of the care per primary team NEURO: Minimize central acting medications as possible. Maintain fall precautions, adequate lighting during the day PULMONARY: Supplemental 02 as needed. Maintain aspiration precautions at all times CARDIOVASCULAR: Follow hemodynamics. Vital signs per facility protocol GI & NUTRITION: Continue with nutritional support. Continue stool softeners and laxatives as needed. KIDNEYS & ELECTROLYTES: Strict monitoring of intake, output and overall fluid balance. Avoid nephrotoxic medications to the extent possible. Medications to be dosed according to renal function. Monitor electrolytes and replace as needed ENDOCRINE: Maintain blood glucose between 100-180 at all times. Hypoglycemia protocol in place INFECTIOUS DISEASE: Trend temperature, WBC and procalcitonin level Follow cultures, deescalate antibiotics as soon as possible. Panculture if new onset fever ONCOLOGY/HEMATOLOGY/COAGULATION: Monitor for s/s of bleeding Monitor hemoglobin, coagulation studies as needed SKIN: Pressure ulcer prevention per facility protocol Specialty mattress ORTHO/REHAB: Continue PT/OT Prophylaxis: Continue GI and DVT prophylaxis Code Status: Full Resuscitation Disposition: TBD Other: Case discussed with supervising physician plan of care agreed upon MARIELOS VALLEJO Oct 01, 2024 17:13
[2024-10-01] MEDS: hydrALAZine 20MG/ML VIAL IV ONE (18:26)
--- NOTE | 2024-10-01 19:09 | HMCIMG ---
Exam Type: CHEST 1VW Clinical Information: sob Comparison: None Findings: Right permacath line is noted with tip at the distal superior vena caval level. There is cardiomegaly. There is prominence of the vascular markings consistent with pulmonary venous congestion. IMPRESSION: Findings consistent with pulmonary venous congestion.
--- NOTE | 2024-10-01 21:03 | PN ---
NEPHROLOGY NOTE SUBJECTIVE: The patient has been evaluated and seen several times for dialysis. The patient has renal failure, anemia, leukocytosis, has been found to have a multivessel coronary artery disease and has been considered for CABG. No other associated finding. No other aggravating or relieving factor. PHYSICAL EXAMINATION: GENERAL: Pale, no other distress or deformities, is lying in bed. VITAL SIGNS: Blood pressure is 147/73, pulse 77, respiratory rate is 18, afebrile. HEENT: Head is atraumatic. Pupils are round and reactive. Sclerae are anicteric. Conjunctivae not pale. Oral mucosa is not dry. NECK: Supple. No masses or bruits. Thyroid is palpable. Neck has no bruits. CHEST: Shows equal thoracic percussion note being resonant in all areas. CARDIAC: Regular rhythm, no rub, no S3, S4. No parasternal heave. BACK: No tenderness or back deformities. LABORATORY DATA: Labs have been reviewed and old records noted. PROBLEMS: Renal failure, anemia, leukocytosis. PLAN: To continue dialysis support. Continue monitoring of renal function. Continued monitoring of electrolytes. The patient has been evaluated and seen for dialysis and seen multiple times. I have discussed with other team members. Thank you for this patient. The patient was evaluated on dialysis multiple times. I have discussed and Epogen will continue as needed. TID: [id number] RECEIPT: [id number]
--- NOTE | 2024-10-01 22:13 | PN ---
NEPHROLOGY NOTE SUBJECTIVE: The patient has been evaluated and seen for dialysis and seen several times. The patient has no other associated finding. No other aggravating or relieving factor. The patient has renal failure, anemia, underlying diabetic nephropathy, hypertension, and the patient has been found to have a coronary artery disease and being considered for CABG. No other associated finding. No other aggravating or relieving factors. The patient remains generally weak. PHYSICAL EXAMINATION: GENERAL: Pale, no other distress or deformities. VITAL SIGNS: Blood pressure has been 118/70, respiratory ____. HEENT: Head is atraumatic. Pupils are round and reactive. Sclerae are anicteric. Conjunctivae not pale. Oral mucosa is not dry. NECK: Supple. No masses, bruits. Thyroid is palpable. Neck has no bruits. CHEST: Shows equal thoracic percussion note being resonant in all areas. CARDIAC: Regular rhythm. No rub. No S3, S4. No parasternal heave. Apical beat is not localized. ABDOMEN: No guarding or tenderness. Bowel sounds are normoactive. No free fluid. EXTREMITIES: No edema. No cyanosis, clubbing. LYMPHATICS: With no lymph node swelling in neck or axillary area. LABORATORY DATA: Labs have been reviewed. Old records reviewed. PROBLEMS: Renal failure, anemia, critically ill patient with underlying multiple comorbidities and ____ extensive coronary artery disease. PLAN: To continue monitoring. Follow up on renal function. Follow up on electrolytes. Intake, output, weight will be monitored. Nonsteroidal drugs will be avoided. Dose of medicine will be adjusted. We will continue followup. Condition is critical and guarded. The patient was seen for dialysis and seen several times. We will continue to monitor and follow the overall status closely. The patient's condition remained guarded. I have discussed with other team members in detail. Thank you for this patient. TID: [id number] RECEIPT: [id number]
[2024-10-02] VITALS (19 sets, daily range): BP systolic 109–169; BP diastolic 42–132; PULSE 80–90; RESP 15–20; TEMP 97.6–99.5; O2SAT 94–100
[2024-10-02 05:28] LABS: BASOPHILS # (AUTO) 0.02 K/uL (0.00-0.20); BASOPHILS % (AUTO) 0.2 % (0.0-5.0); EOSINOPHILS # (AUTO) 0.46 K/uL (0.00-0.70); EOSINOPHILS % (AUTO) 4.2 % (0.0-8.0); HEMATOCRIT 27.8 % (42-54); LYMPHOCYTES # (AUTO) 0.5 K/uL (1.0-4.8); LYMPHOCYTES % (AUTO) 4.6 % (21.0-51.0); MEAN CORPUSCULAR HGB CONC 33.1 g/dL (32.0-36.0); MEAN CORPUSCULAR VOLUME 87.7 fL (79-99); MONOCYTES # (AUTO) 0.6 K/uL (0.1-1.0); MONOCYTES % (AUTO) 5.5 % (3.0-13.0); NEUTROPHILS # (AUTO) 9.1 K/uL (1.8-7.7); NEUTROPHILS % (AUTO) 81.9 % (40.0-77.0); NUCLEATED RED BLOOD CELLS 0.4 % (0.0-0.19); PLATELET COUNT (AUTO) 186 K/uL (130-400); RED BLOOD CELL COUNT(AUTO) 3.17 MIL/uL (4.50-6.20); RED CELL DISTRIBUTION WIDTH 14.1 % (11.0-15.5); WHITE BLOOD COUNT (AUTO) 11.1 K/uL (4.8-10.8)
[2024-10-02 05:55] LABS: BILIRUBIN,TOTAL 0.5 mg/dL (0.2-1.0); PHOSPHORUS 6.5 mg/dL (2.5-4.9); POTASSIUM 4.6 mmol/L (3.5-5.1); TOTAL PROTEIN, SERUM 5.4 g/dL (6.0-8.3)
[2024-10-02 06:01] LABS: CREATININE 9.1 mg/dL (0.5-1.3)
[2024-10-02] MEDS: INSULIN LISpro 100 UNIT/ML 3ML SQ SCH ×3 (07:01→17:17)
--- NOTE | 2024-10-02 08:29 | PN ---
[facility] CARDIOLOGY PROGRESS NOTE Date Patient Seen: Oct 02, 2024 Time of Visit: 08:24 Problem List: NSTEMI Volume overload 2/2 progression of ESRD Influenza A, Tamiflu started on 09/22/2024 Bilateral pneumonia HHS and DKA, on Insulin gtt HTN HLD DM type II 2D echo on 04/06/2024 demonstrated an EF of 45-50% Lexiscan stress test on 04/07/2024 demonstrated a fixed basal mid inferolateral and basal inferior defect with no reversible ischemia Interval History: [No acute events overnight. The patient underwent coronary angiogram yesterday and was found with severe 2 vessel CAD in the LAD and Left Cx, CV surgery has been consulted for CABG evaluation. He denies any anginal symptoms or equivalents. He remains volume overloaded in no distress. Pending HD tomorrow. Pt has no complaints at this time. Physical Examination: GENERAL: No acute distress. HEAD: Normal with no signs of head trauma. EYES: PERRLA, EOMI, conjunctiva and sclera normal. ENT: Hearing grossly intact, normal oropharynx. NECK: Supple without JVD. There is no tenderness, lymphadenopathy, or masses. No thyromegaly. Normal carotid upstrokes without bruits. LUNGS: Crackles to bases bilaterally. HEART: Tachycardic rate and normal rhythm. Normal S1 and S2 without murmurs, gallop or rub. VASC: BLE 2+ pitting edema ABD: Bowel sounds normal, soft, nontender, no masses, no organomegaly. No audible bruits. : Not examined LYMPH: No lymphadenopathy noted. EXT: No clubbing, cyanosis 2+ bilateral lower extremity pitting edema SKIN: No rashes or lesions noted. NEURO: Awake, alert, and oriented x3. No focal sensory or strength deficits noted. Laboratory: [ ] Hematology Labs: Test 10/02/24 05:16 09/30/24 14:39 Range/Units White Blood Count 11.1 H 4.8-10.8 K/uL Red Blood Count 3.17 L 4.50-6.20 MIL/uL Hemoglobin 9.2 L 14.0-18.0 g/dL Hematocrit 27.8 L 42-54 % Mean Corpuscular Volume 87.7 79-99 fL Mean Corpuscular Hemoglobin 29.0 27.0-33.0 pg Mean Corpuscular Hemoglobin Concent 33.1 32.0-36.0 g/dL Red Cell Distribution Width 14.1 11.0-15.5 % Platelet Count 186 130-400 K/uL Mean Platelet Volume 11.8 H 7.5-10.5 fL Immature Granulocyte % (Auto) 3.6 H 0-1 % Neutrophils (%) (Auto) 81.9 H 40.0-77.0 % Lymphocytes (%) (Auto) 4.6 L 21.0-51.0 % Monocytes (%) (Auto) 5.5 3.0-13.0 % Eosinophils (%) (Auto) 4.2 0.0-8.0 % Basophils (%) (Auto) 0.2 0.0-5.0 % Neutrophils # (Auto) 9.1 H 1.8-7.7 K/uL Lymphocytes # (Auto) 0.5 L 1.0-4.8 K/uL Monocytes # (Auto) 0.6 0.1-1.0 K/uL Eosinophils # (Auto) 0.46 0.00-0.70 K/uL Basophils # (Auto) 0.02 0.00-0.20 K/uL Absolute Immature Granulocyte (auto 0.40 0-1 K/uL Nucleated Red Blood Cells 0.4 H 0.0-0.19 % Erythrocyte Sedimentation Rate 58 H 0-15 MM/HR Chemistry Labs: Test 10/02/24 05:19 10/02/24 05:16 10/01/24 16:04 10/01/24 05:03 Range/Units Whole Blood Glucose 406 *H 70-110 MG/DL Sodium Level 135 L 136-145 mmol/L Potassium Level 4.6 3.5-5.1 mmol/L Chloride Level 97 L 101-111 mmol/L Carbon Dioxide Level 22 21-32 mmol/L Blood Urea Nitrogen 85 *H 7-18 mg/dL Creatinine 9.1 *H 0.5-1.3 mg/dL Glomerular Filtration Rate Calc 7 >90 mL/min Random Glucose 454 *H 70-105 mg/dL Total Calcium 5.8 *L 8.5-10.1 mg/dL Phosphorus Level 6.5 H 2.5-4.9 mg/dL Total Bilirubin 0.5 0.2-1.0 mg/dL Aspartate Amino Transf (AST/SGOT) 55 H 10-37 U/L Alanine Aminotransferase (ALT/SGPT) 897 *H 12-78 U/L Alkaline Phosphatase 237 H 50-136 U/L Total Protein 5.4 L 6.0-8.3 g/dL Albumin 2.0 L 3.5-5.0 g/dL Bedside Glucose Comment Stat Lab Glu Request Lactic Acid Level 1.3 0.8-2.5 mmol/L Ferritin 447 H 30-400 ng/mL Ammonia 15 11-32 umol/L Test 09/30/24 14:39 09/30/24 09:27 Range/Units Iron Level 55 #L 65-175 mcg/dL Total Iron Binding Capacity 203 L 250-450 mcg/dL Percent Iron Saturation 27.0 L 30-44 % C-Reactive Protein, Quantitative 17.60 H 0.5-3.0 mg/L Procalcitonin 6.88 H 0.05-0.5 ng/mL Whole Blood Ketones Quantitative 0.1 0.0-0.6 mmol/L Coagulation Labs: Test 10/01/24 05:03 Range/Units Prothrombin Time 11.7 H 9.6-11.6 SEC Prothromb Time International Ratio 1.05 0.85-1.15 Activated Partial Thromboplast Time 26.4 26.3-35.5 SEC Diagnostics / Radiology: [Copy/Paste Echos/Imaging Report here] Impression and Plan: NSTEMI Volume overload 2/2 progression of ESRD Influenza A, Tamiflu started on 09/22/2024 Bilateral pneumonia HHS and DKA, on Insulin gtt HTN HLD DM type II 2D echo on 04/06/2024 demonstrated an EF of 45-50% Lexiscan stress test on 04/07/2024 demonstrated a fixed basal mid inferolateral and basal inferior defect with no reversible ischemia #NSTEMI Troponin of 5531, 5716, 8278, and 6392 EKG demonstrated sinus tachycardia with a heart rate of 121 beats per minute, LAE, and diffuse ischemia S/p ACS protocol. Patient has completed more than 48 hours of IV heparin and has been since discontinued -TTE showed severely hypokinetic inferior wall, EF 35-40 %, prior Lexiscan stress test shows fixed defects in the inferior wall . -Patient is currently flu positive and his luekocytosis continues to improve on IV abx. Volume reduction via HD as patient is oliguric. -The patient underwent coronary CTA that showed severe stenosis ( Prox-mid LAD 90 % stenosis, Prox and mid LCx 90 % stenosis ) CAD -RAD 4 A. -Coronary angiogram performed yesterday showed severe 2 CAD involving LAD and Cx -CV surgery has been consulted for CABG assessment -Hold any P2Y12 inhibitors. -Continue ASA 81 mg daily and Lipitor 40 mg daily #Acute on chronic HFrEF: ICM, LVEF 35-40% with inferior wall hypokinesis. NYHA III, volume overloaded, stage C Prior Lexiscan stress test with fixed inferior defect suggestive of scar Given his soft systolic blood pressures electrolyte derangements ( hyperkalemia ) we will defer use of ACEi/ARBs /aldactone GDMT : Continue Toprol-XL 25 mg qd Strict I's and O's and daily weights. Volume reduction via HD, pending for HD tomorrow Nephrology is following, recommendations appreciated Thank you for this consult cardiology will continue to follow formal recommendations pending CV surgery evaluation. ATTESTATION BY PHYSICIAN I have seen and examined the patient, reviewed the above documentation, participated in medical decision making, made necessary modifications, and agree with the treatment plan as documented by my mid-level provider above. MD JIMBO Rick,ARIELA Casper MD Oct 02, 2024 08:29
[2024-10-02] MEDS: INSULIN GLARgine 100 UNITS/ML 10 ML VIAL SQ SCH ×2 (09:00→20:46)
--- NOTE | 2024-10-02 09:21 | PN ---
[facility] PROGRESS NOTE Date of Service: Oct 02, 2024 Time of Service: 09:21 SUBJECTIVE: This is a 49-year-old male with past medical history of CKD not on hemodialysis, diabetes, hypertension, hyperlipidemia and obesity who presents to the ED for complaints of cough and chest congestion which started last Sunday and getting worse on Sunday. Patient reports coughing up pinkish colored thick phlegm, loss of appetite and on Sunday started not eating unable to sleep, vomiting and having chest pain triggered by persistent coughing he said.Patient reports having soreness due to hard cough he said.Patient reports having sweeling on both lower extremities and started having shortness of breath and today he started having non bloody diarrhea. Neela was at bedside during my evaluation. Upon arrival to ER a STEMI alert was activated per ER MD and spoke to Ladies Underwear Operator direct sales professional and as per report patient is possibly going to cathlab tomorrow and patient is going to be started on Heparin and Insulin drip. Seen and examined patient in the Er awake,alert and coherent,appears weak looking.Patient denies fever,palpitation ,dizziness ,sore throat and headache. Latest vital signs temperature 98.1, heart rate 108, respiration 30 blood pressure 130/68 saturation 91% on 4 L nasal cannula. Labs: WBC 11.2, hemoglobin 9, hematocrit 27, platelet count 238, neutrophils 88. PH 7.32, CO2 26, PO2 49.6, bicarb 13, PO2 80 base excess -11.3. Sodium 129, potassium 5.9, chloride 93, CO2 19, BUN 88, creatinine 8.2, GFR seven glucose 876 , lactic acid 3.0-3.2, troponin 5531 albumin 2.1. Influenza A positive influenza B negative SARs COVID negative. Strep A negative. Chest x-ray result revealed extensive bilateral mid to lower lung pneumonia right greater than left. First ECG result revealed sinus tachycardia heart rate 121 probable left atrial enlargement repolarization abnormal suggest ischemia diffuse leads ST-elevation consider anterior injury. Second EKG result revealed sinus tachycardia repolarization abnormality suggest ischemia diffuse leads borderline ST elevation anterior leads heart rate 108. While in the ER patient received Tamiflu 75 mg p.o., 1 L NS bolus, Lopressor 5 mg IV, insulin 10 units IV, Zosyn IV, Zofran 4 mg IV and Phenergan codeine 10 mL p.o. we will admit patient in ICU for further medical management. 09/29/24 Patient was seen and examined at bedside. No acute events overnight. Today his vitals are blood pressure 103/73, pulse rate respiratory rate 15 and SpO2 96% on room air and tolerating well, T-max 97.5. He is scheduled for hemodialysis today. And a abdominal ultrasound was performed yesterday, no evidence of gallstones or hydronephrosis, was done to rule out liver cirrhosis due to elevated liver enzymes. AST came down from 6752 to 365, ALT from 4300 to 2760, ALP from 233-194, enzymes were elevated probably due to shock liver. His white count has been coming down from 22 to 18.6. Del Cid's catheter was discontinued last night, strict input and output monitoring he is being maintained. CT showed a distended appendix with surrounding inflammatory changes and possibility of acute appendicitis can not be excluded but patient denies any lower quadrant pain or nausea or vomitings or McBurney point tenderness. We will follow pulmonology, Nephrology and Cardiology recommendations. 09/30/24 Patient was seen and examined at bedside. No acute events overnight. Coronary angiogram showed noncalcified plaque in the proximal and mid LAD with 90% stenosis and a noncalcified plaque in the proximal and mid left circumflex with 90% stenosis. He is planned for catheterization the procedure in the morning with Dr. Gonzales tomorrow. Patient needs PermCath before he can be discharged home for dialysis. Dr. Page will work on PermCath after PCI when the patient is stable. He was started on Plavix and atorvastatin yesterday. Will replete his calcium and give him a dose of vitamin-D. Lactic acid was elevated this morning but came down to normal. 3200 mL was ultrafiltered yesterday and he tolerated it well. 10/01/24 Patient was seen and examined at bedside. He is alert, awake and oriented. No acute events overnight. Patient was taken to the crime lab technician this morning but couldn't do the procedure because his arteries were stenosed than expected and plan is to do a CABG later this week. Changed his insulin lantus and started on lispro, glucose came down from 400s to 300s, still very hyperglycemic, will consult endocrinology for recommendations. Remarkable labs are sodium 134, chloride 93. BUN 115, Creatinine 10.9, Corrected calcium 7.2, phosphorous 11, ferritin 447, AST 17, ALT 1236, ALP 169, total protein 5.2, albumin 2.0, WBC 15.5, hb 8.7. will replete his calcium 10/02/24 Patient was seen and examined at bedside. He is alert, awake and oriented. No acute events overnight. He denies chest pain or abdominal pain or palpitations or dizziness or shortness of breath. Dr. Page was consulted for CABG, he will be scheduled for it later this week or next week. Dr. Perry was consulted because of constant hyperglycemia, changed his lantus to 30 and lispro 10U TID , will follow up on the glucose levels next 24 hours.As per his , Lantus n ever worked for him, will try 70/30 if it is not under control. Remarkable labs are sodium 135, Chloride 97, BUN 85, Creatinine 9.1, glucose 454, corrected calcium 7.4, phosphorous 6.5, his liver function is improving. REVIEW OF SYSTEMS CONSTITUTIONAL: Denies fevers, chills, or night sweats. No unintentional weight loss reported. NEUROLOGICAL: Denies headache, amaurosis fugax, motor weakness, sensory deficit, vertigo/spinning sensation, gait abnormalities, or tremors. ENT: No hearing loss, otalgia, otorrhea, rhinitis, rhinorrhea, hoarseness, or sore throat. CARDIOVASCULAR: Denies orthopnea shortness of breaths and chest pain Denies paroxysmal nocturnal dyspnea, palpitations, life-threatening arrhythmias, claudication. PULMONARY: Denies productive cough , pleuritic chest pain and shortness of breaths SLEEP: Complains of unable to sleep Denies morning headaches, daytime somnolence or napping. Denies waking from sleep. Denies knowledge of snoring. GASTROINTESTINAL: Denies loss of appetite, vomiting and diarrhea Denies any type of dysphagia to either liquids or solids. Denies nausea, vomiting, pyrosis, early satiety, abdominal pain, diarrhea, constipation, or changes in stool consistency or caliber. Denies coffee-ground emesis, hematemesis, hematochezia, or melanotic stools. GENITOURINARY: Denies frequency, urgency, nocturia, hematuria or incontinence (Storage/Irritative symptoms.) Low urinary stream, straining to void, urinary intermittency or hesitancy, splitting of the voiding stream, terminal dribbling. ENDOCRINOLOGIC: Denies polyuria, polydipsia, polyphagia or heat/cold into lerances. Patient reports not taking medications for diabetes because he was not eating. HEMATOLOGIC: Denies thrombophilia/previous clots, or coagulopathy/bleeding disorders. ONCOLOGIC: Denies personal history of malignancy. DERMATOLOGIC: Denies rashes or pruritus. PSYCHIATRIC: Denies any suicidal or homicidal ideation. Denies hallucinations. PHYSICAL EXAM GENERAL APPEARANCE: The patient is awake, alert, and oriented appears generally weak NEUROLOGICAL: Cranial nerves II-XII grossly intact. Motor is 5/5 in bilateral upper and lower extremities proximal to distal. No sensory deficits. HEENT: Face is symmetric. Pupils are equal and reactive. Extraocular movements are intact. NECK: Supple. No JVD. No thyromegaly. No submental, submandibular, pre- /postauricular, occipital or supraclavicular lymphadenopathy. CHEST: Normal chest expansion. No Telemetry. LUNGS: . Diminished lung sounds to bilateral lung james CARDIOVASCULAR: Regular. S1 and S2 normal. No appreciable rubs, murmurs or gallops. ABDOMEN: Round and firmed There is no rebound, voluntary guarding, or rigidity. : Deferred. No Del Cid. EXTREMITIES: Bilateral lower extremity edema No clubbing. Good capillary refill. SKIN: No skin breakdown. Vital Signs (last 8hr) Date Time Temp Pulse Resp B/P (MAP) Pulse Ox O2 Delivery O2 Flow Rate FiO2 10/02/24 08:16 98.6 89 20 169/97 100 Room Air 10/02/24 06:36 82 18 N/A Room Air 10/02/24 04:00 99.5 90 19 140/47 93 Room Air LABS: Laboratory: Test 10/02/24 05:19 10/02/24 05:16 10/01/24 16:04 10/01/24 05:03 Range/Units Whole Blood Glucose 406 *H 70-110 MG/DL White Blood Count 11.1 H 4.8-10.8 K/uL Red Blood Count 3.17 L 4.50-6.20 MIL/uL Hemoglobin 9.2 L 14.0-18.0 g/dL Hematocrit 27.8 L 42-54 % Mean Corpuscular Volume 87.7 79-99 fL Mean Corpuscular Hemoglobin 29.0 27.0-33.0 pg Mean Corpuscular Hemoglobin Concent 33.1 32.0-36.0 g/dL Red Cell Distribution Width 14.1 11.0-15.5 % Platelet Count 186 130-400 K/uL Mean Platelet Volume 11.8 H 7.5-10.5 fL Immature Granulocyte % (Auto) 3.6 H 0-1 % Neutrophils (%) (Auto) 81.9 H 40.0-77.0 % Lymphocytes (%) (Auto) 4.6 L 21.0-51.0 % Monocytes (%) (Auto) 5.5 3.0-13.0 % Eosinophils (%) (Auto) 4.2 0.0-8.0 % Basophils (%) (Auto) 0.2 0.0-5.0 % Neutrophils # (Auto) 9.1 H 1.8-7.7 K/uL Lymphocytes # (Auto) 0.5 L 1.0-4.8 K/uL Monocytes # (Auto) 0.6 0.1-1.0 K/uL Eosinophils # (Auto) 0.46 0.00-0.70 K/uL Basophils # (Auto) 0.02 0.00-0.20 K/uL Absolute Immature Granulocyte (auto 0.40 0-1 K/uL Nucleated Red Blood Cells 0.4 H 0.0-0.19 % Sodium Level 135 L 136-145 mmol/L Potassium Level 4.6 3.5-5.1 mmol/L Chloride Level 97 L 101-111 mmol/L Carbon Dioxide Level 22 21-32 mmol/L Blood Urea Nitrogen 85 *H 7-18 mg/dL Creatinine 9.1 *H 0.5-1.3 mg/dL Glomerular Filtration Rate Calc 7 >90 mL/min Random Glucose 454 *H 70-105 mg/dL Total Calcium 5.8 *L 8.5-10.1 mg/dL Phosphorus Level 6.5 H 2.5-4.9 mg/dL Total Bilirubin 0.5 0.2-1.0 mg/dL Aspartate Amino Transf (AST/SGOT) 55 H 10-37 U/L Alanine Aminotransferase (ALT/SGPT) 897 *H 12-78 U/L Alkaline Phosphatase 237 H 50-136 U/L Total Protein 5.4 L 6.0-8.3 g/dL Albumin 2.0 L 3.5-5.0 g/dL Blood Gas Specimen Type Arterial Arterial Blood pH 7.416 7.350-7.450 Arterial Blood Partial Pressure CO2 34 L 35-48 mmHg Arterial Blood Partial Pressure O2 65.1 L 83.0-108.0 mmHg Arterial Blood HCO3 21.4 21.0-28.0 mmol/L Arterial Blood Oxygen Saturation 93.3 L 94.0-98.0 % Arterial Blood Base Excess -2.3 L -2.0-3.0 mmol/L Blood Gas Temperature 37.0 35.5-37.0 CELSIUS Blood Gas Vent Mode RA ROOM AIR FiO2 21.0 % Blood Gas Specimen Comment RR RN REYNA Bedside Glucose Comment Stat Lab Glu Request Prothrombin Time 11.7 H 9.6-11.6 SEC Prothromb Time International Ratio 1.05 0.85-1.15 Activated Partial Thromboplast Time 26.4 26.3-35.5 SEC Lactic Acid Level 1.3 0.8-2.5 mmol/L Ferritin 447 H 30-400 ng/mL Ammonia 15 11-32 umol/L Test 09/30/24 14:39 09/30/24 09:27 Range/Units Erythrocyte Sedimentation Rate 58 H 0-15 MM/HR Iron Level 55 #L 65-175 mcg/dL Total Iron Binding Capacity 203 L 250-450 mcg/dL Percent Iron Saturation 27.0 L 30-44 % C-Reactive Protein, Quantitative 17.60 H 0.5-3.0 mg/L Procalcitonin 6.88 H 0.05-0.5 ng/mL Whole Blood Ketones Quantitative 0.1 0.0-0.6 mmol/L Current Medications Medications (Trade) Dose Ordered Sig/Sierra Route PRN Reason Start Time Stop Time Status Last Admin Dose Admin Acetaminophen (TYLenol 325MG TAB) 650 mg Q4H PRN PO MILD PAIN (1-3) 09/21/24 19:30 10/21/24 19:29 09/30/24 01:32 650 MG Acetaminophen (TYLenol 325MG TAB) 650 mg Q6H PRN PO TEMPERATURE GREATER THAN 101.5 09/21/24 19:30 10/21/24 19:29 Albumin Human 100 ml @ 0 mls/hr AD STAT IV 09/25/24 23:09 09/25/24 23:12 DC 09/25/24 23:17 100 MLS/HR Albuterol (DUOneb) 1 udvial [id number] IH 09/21/24 22:00 09/25/24 09:59 DC 09/25/24 06:43 1 UDVIAL Albuterol (DUOneb) 1 udvial [id number] IH 09/25/24 10:00 09/26/24 15:22 DC 09/26/24 11:17 1 UDVIAL Albuterol (DUOneb) 1 udvial [id number] PRN IH WHEEZING 09/26/24 15:30 10/21/24 21:59 Aspirin (Aspirin 81mg Ec Tab) 81 mg DAILY PO 09/22/24 09:00 10/22/24 08:59 09/30/24 08:50 81 MG Atorvastatin Calcium (LIPItor 20MG) 20 mg HS PO 09/23/24 21:00 09/27/24 10:38 DC 09/26/24 20:36 20 MG Atorvastatin Calcium (LIPItor 40MG) 40 mg HS PO 09/22/24 21:00 09/22/24 20:17 DC Atorvastatin Calcium (LIPItor 40MG) 40 mg HS PO 09/30/24 21:00 10/30/24 20:59 10/01/24 19:51 40 MG Azithromycin 250 ml @ 250 mls/hr Q24H IVPB 09/21/24 18:00 09/21/24 18:14 DC Calcium Carbonate (Oyster Shell Ca 500mg Tab) 1,000 mg TID PO 09/30/24 14:00 10/30/24 13:59 09/30/24 20:53 1,000 MG Calcium Gluconate 1 gm/Sodium Chloride 100 ml @ 0 mls/hr PROTOCOL IV 10/01/24 17:00 10/31/24 16:59 Cefepime HCl (MAXipime 1 GM vial) 1 gm Q24H IVPB 09/23/24 08:30 09/26/24 11:14 DC 09/25/24 08:36 1 GM Chlordiazepoxide HCl (LIBrium 25 MG CAP) 25 mg Q2H PRN PO ALCOHOL WITHDRAWAL PROTOCOL 09/22/24 20:30 09/29/24 20:29 DC 09/28/24 23:59 25 MG Chlordiazepoxide HCl (LIBrium 25 MG CAP) 50 mg Q1H PRN PO ALCOHOL WITHDRAWAL PROTOCOL 09/22/24 20:30 09/29/24 20:29 DC Clopidogrel Bisulfate (plaVIX 75MG) 75 mg DAILY PO 09/24/24 09:00 09/26/24 07:14 DC 09/25/24 08:38 75 MG Clopidogrel Bisulfate (plaVIX 75MG) 75 mg DAILY PO 09/30/24 09:00 10/01/24 08:26 DC 09/30/24 08:49 75 MG Dextrose (D50w) 50 ml AD PRN IV HYPOGLYCEMIA PROTOCOL 09/30/24 17:30 10/01/24 08:25 DC Dextrose (D50w) 50 ml AD PRN IV HYPOGLYCEMIA PROTOCOL 10/01/24 08:30 10/31/24 08:29 Dextrose/Sodium Chloride 1,000 ml @ 0 mls/hr AD IV 09/22/24 00:00 09/23/24 21:23 DC 09/22/24 09:49 150 MLS/HR Doxycycline Hyclate (Doxycycline Hyclate) 100 mg BID PO 09/21/24 21:00 09/30/24 23:59 DC 09/30/24 20:53 100 MG Epoetin Moses-epbx (Retacrit) 10,000 unit QMOWEFR SQ 10/01/24 09:00 10/31/24 08:59 10/01/24 15:34 10,000 UNIT Famotidine (Pepcid 20mg Vial) 10 mg DAILY IV 09/22/24 09:00 09/27/24 10:35 DC 09/27/24 09:09 10 MG Famotidine (Pepcid 20mg Tab) 10 mg Q48H PO 09/21/24 19:30 09/21/24 20:00 DC Ferrous Sulfate (Ferrous Sulfate) 325 mg DAILY PO 09/23/24 09:00 10/23/24 08:59 09/30/24 08:50 325 MG Fish Oil (Fish Oil 1000 Mg/Cap) 2,000 mg BID PO 09/22/24 21:00 10/22/24 20:59 09/30/24 20:53 2,000 MG Fluconazole/ Sodium Chloride (DiFLUCan 200 MG/ NS 100 ML) 200 mg Q24H IV 09/25/24 16:00 09/27/24 10:36 DC 09/26/24 14:38 200 MG Furosemide (LASix 40MG VIAL) 80 mg Q12H IV 09/22/24 21:00 09/26/24 15:22 DC 09/26/24 13:20 80 MG Gabapentin (NEURontin 100 mg CAP) 100 mg DAILY PO 10/01/24 09:00 10/24/24 20:59 Gabapentin (NEURontin 100 mg CAP) 100 mg TID PO 09/24/24 21:00 09/30/24 17:37 DC 09/30/24 14:07 100 MG Glucagon (Glucagon 1mg Kit) 1 mg AD PRN IM HYPOGLYCEMIA PROTOCOL 09/30/24 17:30 10/01/24 08:25 DC Glucagon (Glucagon 1mg Kit) 1 mg AD PRN IM HYPOGLYCEMIA PROTOCOL 10/01/24 08:30 10/31/24 08:29 Guaifenesin/ Dextromethorphan (RobiTUSSin DM 200/20MG 10ML) 10 ml Q4H PRN PO COUGH 09/21/24 19:30 10/21/24 19:29 09/23/24 22:06 10 ML Heparin Sodium (Porcine) (HEParin 5,000 UNIT VIAL) *calculation based on ACTUAL B... AD PRN IV HEPARIN PROTOCOL 09/21/24 19:30 09/26/24 07:14 DC Heparin Sodium (Porcine) (HEParin 5,000 UNIT VIAL) 10,000 unit AD IRRIG 09/27/24 14:00 10/27/24 13:59 10/01/24 17:18 10,000 UNIT Heparin Sodium/ Dextrose 250 ml @ 0 mls/hr Q6H IV 09/21/24 19:30 09/26/24 18:36 DC 09/25/24 04:13 14.7 MLS/HR Hydralazine HCl (APRESOLine 20MG INJ) 10 mg Q6H PRN IV ADMINISTER FOR SBP > 160 10/01/24 16:30 10/31/24 16:29 Insulin Glargine (LANtus 100 UNITS/ML 10 ML VIAL) 10 units BID@0730,2100 SQ 09/22/24 21:00 09/26/24 11:15 DC 09/25/24 20:44 10 UNITS Insulin Glargine (LANtus 100 UNITS/ML 10 ML VIAL) 10 units HS SQ 09/30/24 21:00 2/4/25 17:26 DC Insulin Glargine (LANtus 100 UNITS/ML 10 ML VIAL) 15 units BID@0730,2100 SQ 09/26/24 21:00 09/30/24 17:13 DC 09/30/24 07:03 15 UNITS Insulin Glargine (LANtus 100 UNITS/ML 10 ML VIAL) 20 units AM SQ 10/01/24 09:00 09/30/24 17:26 DC Insulin Glargine (LANtus 100 UNITS/ML 10 ML VIAL) 30 units HS SQ 09/30/24 21:00 10/02/24 07:19 DC 10/01/24 19:54 30 UNITS Insulin Glargine (LANtus 100 UNITS/ML 10 ML VIAL) 50 units DAILY SQ 10/02/24 07:30 10/30/24 20:59 Insulin Human Lispro (HumaLOG LISpro 100 UNIT/ML 3ML) 7 unit TIDAC SQ 10/01/24 07:30 10/01/24 17:01 DC 10/01/24 16:22 7 UNIT Insulin Human Lispro (HumaLOG LISpro 100 UNIT/ML 3ML) 10 unit TIDAC SQ 10/01/24 17:00 10/01/24 19:41 DC Insulin Human Lispro (HumaLOG LISpro 100 UNIT/ML 3ML) 15 unit TIDAC SQ 10/02/24 07:30 10/02/24 07:20 DC 10/02/24 07:01 15 UNIT Insulin Human Lispro (HumaLOG LISpro 100 UNIT/ML 3ML) 20 unit TIDAC SQ 10/02/24 11:30 11/01/24 11:29 Insulin Human Regular (humuLIN R 100 UNIT/ML 3ML) INSULIN SLIDING SCAL... ACHS SQ 09/24/24 07:30 10/24/24 07:29 10/02/24 07:01 16 UNIT Insulin Human Regular 100 unit/ Sodium Chloride 101 ml @ 0 mls/hr PROTOCOL IV 09/21/24 20:00 09/23/24 21:20 DC 09/21/24 21:01 9.8 MLS/HR Insulin Human Regular 100 unit/ Sodium Chloride 101 ml @ 0 mls/hr PROTOCOL IV 09/22/24 00:00 09/22/24 00:03 DC Insulin Human Regular 100 unit/ Sodium Chloride 101 ml @ 0 mls/hr PROTOCOL IV 09/26/24 18:30 09/27/24 10:25 DC 09/26/24 18:36 10 MLS/HR Magnesium Sulfate 50 ml @ 0 mls/hr PROTOCOL IV 09/22/24 00:00 09/23/24 21:23 DC Magnesium Sulfate 50 ml @ 0 mls/hr PROTOCOL IV 09/26/24 18:30 09/27/24 10:25 DC Magnesium Sulfate 50 ml @ 0 mls/hr PROTOCOL PRN IV OTH 09/22/24 00:00 09/22/24 00:04 DC 09/21/24 23:52 25 MLS/HR Mannitol 245 ml @ 0 mls/hr AD IV 09/22/24 00:30 09/22/24 20:17 DC Mannitol 500 ml @ 0 mls/hr AD IV 09/22/24 00:30 09/22/24 14:33 DC Mannitol (Osmitrol 20% 250ml Bag) 49 gm AD IV 09/22/24 00:00 09/22/24 00:28 DC Methylprednisolone Sodium Succinate (Solu-medROL 40MG) 40 mg BID IVP 09/22/24 09:00 09/27/24 10:35 DC 09/26/24 20:37 40 MG Metoprolol Succinate (TopROL XL) 25 mg BID PO 09/26/24 09:00 10/26/24 08:59 10/01/24 19:51 25 MG Metoprolol Succinate (TopROL XL) 50 mg BID PO 09/24/24 21:00 09/26/24 07:14 DC 09/24/24 19:45 50 MG Metoprolol Tartrate (loprESSOR) 12.5 mg BID PO 09/22/24 21:00 09/24/24 16:38 DC 09/24/24 12:07 12.5 MG Miscellaneous Medication (Folic Acid/ Vitamin B Comp W-C (I[place] Tablet)) 1 tab DAILY PO 09/23/24 09:00 09/22/24 15:56 DC Morphine Sulfate (morPHINE 2MG SYG) 2 mg Q4H PRN IVP SEVERE PAIN (7-10) 09/26/24 01:30 10/01/24 04:29 DC Multivitamins Therapeutic (Multivitamin Tablet) 1 tab DAILY PO 09/23/24 09:00 10/23/24 08:59 09/30/24 08:50 1 TAB Nifedipine (adALAT 30MG) 60 mg DAILY PO 09/23/24 09:00 09/28/24 12:01 DC 09/25/24 08:37 60 MG Nitroglycerin (Nitroglycerin 1gm Oint) 0.5 inch Q8H TD 09/21/24 19:30 09/27/24 10:34 DC 09/25/24 12:44 0.5 INCH Norepinephrine 250 ml @ 0 mls/hr AD PRN IV DIRECTED 09/26/24 01:30 09/27/24 10:34 DC 09/26/24 01:40 0 MLS/HR Ondansetron HCl (zoFRAN 4MG INJ) 4 mg Q6H PRN IVP NAUSEA/VOMITING 09/26/24 01:30 10/26/24 01:29 09/27/24 08:51 4 MG Oseltamivir Phosphate (Tamiflu) 75 mg DAILY PO 09/22/24 09:00 09/23/24 13:29 DC 09/23/24 08:38 75 MG Oseltamivir Phosphate (Tamiflu) 75 mg Q24H PO 09/26/24 17:00 09/27/24 17:01 DC 09/27/24 18:04 75 MG Oseltamivir Phosphate (Tamiflu) 75 mg QTUTHSA[DIALYSIS] PO 09/23/24 16:00 09/23/24 17:04 DC Oseltamivir Phosphate (Tamiflu) 75 mg QTUTHSA[DIALYSIS] PO 09/23/24 22:00 09/26/24 16:32 DC 09/25/24 16:09 75 MG Pantoprazole Sodium (PROTonix 40MG INJ) 40 mg BID IVP 09/27/24 21:00 10/27/24 20:59 10/01/24 19:51 40 MG Pharmacy Profile Note (Pharmacy Communication) 1 each ONCE MISC 09/23/24 13:00 09/23/24 13:25 DC Pharmacy Profile Note (Pharmacy Communication) 1 each ONCE MISC 09/23/24 21:30 09/24/24 07:08 DC Pharmacy Profile Note (Pharmacy Communication) 1 each PROTOCOL PRN MISC ETOH Withdrawal Score changes 09/22/24 20:30 09/29/24 20:29 DC Piperacillin Sod/ Tazobactam Sod 50 ml @ 12.5 mls/hr Q12H IV 09/21/24 21:00 09/23/24 08:06 DC 09/22/24 20:43 12.5 MLS/HR Piperacillin Sod/ Tazobactam Sod (Zosyn 3.375gm+NS 50ml) 3.375 gm Q12H IV 09/26/24 11:30 10/06/24 11:29 10/01/24 23:06 3.375 GM Potassium Chloride 20 meq/ Sodium Chloride 1,010 ml @ 0 mls/hr PROTOCOL IV 09/22/24 00:00 09/23/24 21:23 DC Potassium Chloride/Dextrose/ Sod Cl 1,000 ml @ 0 mls/hr AD IV 09/22/24 00:00 09/23/24 21:23 DC Prednisone (deltaSONE/ oraSONE 20MG TAB) 20 mg DAILY PO 09/28/24 09:00 10/01/24 08:59 DC 09/30/24 08:50 20 MG Sodium Bicarbonate (Sodium Bicarbonate) 650 mg TID PO 09/24/24 09:00 09/27/24 10:34 DC 09/26/24 20:36 650 MG Sodium Chloride 250 ml @ 0 mls/hr Q0M IV 09/25/24 23:00 09/27/24 10:34 DC Sodium Chloride 1,000 ml @ 0 mls/hr ONCE IV 09/23/24 19:30 09/27/24 13:51 DC 09/26/24 12:15 1,000 MLS/HR Sodium Chloride 1,000 ml @ 0 mls/hr ONCE IV 09/27/24 14:30 09/27/24 13:51 DC Sodium Chloride 1,000 ml @ 0 mls/hr ONCE IV 09/27/24 15:00 10/27/24 14:59 09/29/24 16:53 1,000 MLS/HR Sodium Chloride 1,000 ml @ 100 mls/hr Q10H IV 09/21/24 19:30 09/27/24 10:34 DC 09/23/24 12:53 100 MLS/HR Sodium Chloride 1,000 ml @ 200 mls/hr PROTOCOL IV 09/22/24 00:00 09/23/24 21:23 DC Thiamine HCl 100 mg/Folic Acid 1 mg/Multivitamins/ Minerals 10 ml/ Sodium Chloride 1,011.2 ml @ 100 mls/ hr Q24H IV 09/22/24 20:30 09/25/24 06:37 DC 09/22/24 20:43 100 MLS/HR Vancomycin HCl 250 ml @ 125 mls/hr Q72H IV 09/22/24 20:30 09/23/24 08:04 DC 09/22/24 20:48 125 MLS/HR Vancomycin HCl (Vancomycin 500mg+NS 100ml Ivpb) 1,000 mg DAILY08 IV 09/23/24 08:00 09/22/24 20:26 DC Vancomycin HCl (Vancomycin 750mg) 750 mg MWFPHD IVPB 09/26/24 16:00 10/03/24 23:29 Hold Vancomycin HCl (Vancomycin 750mg) 750 mg Q24H IVPB 09/23/24 23:30 09/25/24 06:26 DC 09/24/24 22:43 750 MG Vitamin B Complex/ Vit C/Folic Acid (Nephrovite Tablet) 1 cap DAILY PO 09/23/24 09:00 10/23/24 08:59 09/30/24 08:49 1 CAP DIAGNOSTICS / RADIOLOGY: [ ] ASSESSMENT: Hyperosmolar Hyperglycemic Syndrome POA NSTEMI POA Influenza bronchopneumonia with sepsis POA Acute Hypoxemic Respiratory Failure POA Acute on chronic renal failure with concern for ATN POA Metabolic acidosis POA Lactic acidosis POA CKD stage 4 POA Uncontrolled Diabetes POA Protein Calorie malnutrition POA PLAN: Iron profile and APR labs Procalcitonin and LA Downgraded to medical floor Continue broad-spectrum antibiotics Continue to trend WBC in Continue to replace electrolytes IV protocol Continue the patient on long-acting as well as insulin sliding scale Follow a.m. labs GI and DVT prophylaxis Disposition: Pending improvement in clinical condition, CTA to evaluate coronary anatomy tomorrow if heart rate remains controlled, HD tomorrow per stock manager, evaluated by Cardiothoracic surgeon for hemodialysis access. ATTESTATION BY PHYSICIAN I have seen and examined the patient. I reviewed the documentation, medical decision making, and treatment plan as noted by the resident provider above. I agree with the findings and plan of care. Dieudonne Farley MD, NIHITHA MD Oct 02, 2024 09:21
--- NOTE | 2024-10-02 10:20 | PN ---
[facility] PROGRESS NOTE Date Patient Seen: Oct 02, 2024 Time of Visit: 10:19 Supervising Physician: [Dr. Price] Primary Care Physician: Gama Acosta Outpatient Specialists: [ ] Inpatient Consults: Cardiology, nephrology and critical care team PROBLEM LIST: Septic shock, not POA, resolved Acute Hypoxemic Respiratory Failure, POA, resolved Acute on chronic CHF with reduced EF of 35 40% Nstemi, POA, pending CABG Community acquired influenza A viral pneumoniae w/ superimposed Bilateral bacterial Pneumonia, POA, Sepsis Due To Bilateral Pneumonia And Influenza A Infection, POA Severe transaminitis 2/2 shocked liver not POA ESRD with new onset hemodialysis this admission s/p Rt permacath Recurrent Dka w/ reopening of AGAP and ketones, resolved Acute Metabolic Acidosis 2/2 DkA and SAURABH , POA, improved Hyperkalemia In The Context Of Chronic Kidney Injury, Poa Morbid Obesity BMI 40.5 INTERVAL HISTORY: 09/22/2024: At the time my evaluation, the patient was in the emergency department awaiting bed assignment. The staff nurse reports no acute events overnight. The patient was on a Oxymizer with optimal SpO2. He was normotensive without the need for pressor therapy. There was no complaint of chest pain. There was no abdominal pain, nausea vomiting or diarrhea. The patient continued on a insulin drip per the DKA protocol. He was started on antibiotic and antiviral therapy for management of his condition. Review of labs today showed no major concern on CBC. Chemistry panel did show a sodium of 135, chloride of 100 and a CO2 of 20 with a anion gap of 15. Blood glucose remains elevated in the 300s. No new complaint. 09/23- saw patient and ED 13 awake alert and oriented x3. 2D echo at bedside being performed. Patient has been afebrile heart rate of 110, blood pressure 116/63 with respiratory rate of 20 saturating 97% with 7 L via nasal cannula oximizer. Urine output 1.4 L in the last 24 hours. On laboratory WBCs are 11.4 H&H trending down 7.6/23.1 with a platelet count that is 178 K. on chemistry sodium 136 potassium of 3.7 chloride 100 carbon dioxide of 19 BUN 106. Creatinine of 8.6 and GFR of 7. Per Dr Armenta pt scheduled for a Mitesh hemodialysis catheter per IR today. Pt continues with Tamiflu, Doxy, Cefepime and MRSA coverage will be added w/ vanco due to suspected MRSA superimposed pn eumonia on Influenza pneumonia. On CT chest, abdomen and pelvis shows Acute appearing infiltrates in both lung bases consistent with pneumoniae. No acute finding in the abdomen or pelvis. Del Cid catheter in good position in the urinary bladder. We will continue to follow Neprhology recommendations. 09/24 patient was seen and examined at bedside with primary nurse present. Coral ent to receive1 unit PRBCs hemoglobin this a.m. 6.8. Continue to monitor closely. Patient to continue on IV antibiotics. Patient's troponin levels trending down. We will continue to follow recommendations of Cardiology. Patient remains hypoxic requiring supplemental oxygen via nasal cannula at L. Patient states does not use home oxygen. Patient is to continue on heparin drip. Patient to continue on IV steroids. Patient's echocardiogram revealed EF of 35-40%. Patient's blood cultures have been negative x2 days. Patient remains high risk for decompensation. 09/25 patient was seen and examined at bedside with mother present. At time of visit patient is currently on room air has been weaned off oxygen. Yesterday patient was on 5 L. As per patient is tolerating room air well. Patient denies any chest pain or shortness of breadth, however does report shortness of breath upon minimal exertion. Patient remains on heparin drip. Patient is still currently pending coronary CT to be completed, further recommendations by Cardiology to follow once examined has been completed. Patient to continue on hemodialysis per Nephrology's recommendations. 09/26/24-patient is awake alert and oriented x3. He requires Levophed at 0 point 4 micrograms/kilogram per minute for blood pressure support. He was brought into the ICU overnight due to hypotension and elevated liver enzymes. Current blood pressure of 129/74 heart rate in the 80s respiratory rate of 19 saturating 100% with 7 L via Oxymizer and afebrile. As per RN she is weaning Levophed. Urine output was 100 mL in the last 24 hours he received hemodialysis today with 3.6 L out and had one bowel movement. WBCs spiked up this morning from 17.6224.2 H&H 8.6/25.4 and platelet count is normal 291 K. neutrophils 79.5. Suspect patient aspirated in the episode of hypotension due to increased pulmonary infiltrates to right side and spike in white count and temperature. Patient was panculture and cefepime changed to Zosyn to cover for aspiration pneumonia. On chest x-ray patient with a extensive bilateral infiltrates unchanged. No pneumothorax. Chemistries sodium of 130 potassium is 6.2 ch loride of 90 carbon dioxide of 17 with a BUN of 119 and creatinine 9.6 and GFR of six liver enzymes raised AST of 6752 ALT of 4302, alkaline phosphatase of 233 likely from shock liver procalcitonin elevated at 24.31 decreased from admission wishes 70. On repeat BNP patient has a sodium of 134 potassium of 3.5 chloride of 91 carbon dioxide 26 with a anion gap of 17 and ketones of 1.4 we will need to restart insulin drip per DKA protocol. 09/27/24-pt is awake alert and oriented x 3. He is hemodynamically stable and off pressors. He denies any chill, chest pain or increased sob at rest. He does report sob on exertion and reports poor appetite. He is due for HD treatment today. Per RN no major overnight events and he has been afebrile. WBC's are trending down now 20.4, H&H is 8.9/26.3 and platelet count is 220 K. chemistry patient had a sodium of 134 potassium is normal 4.6 chloride of 92 carbon dioxide 24, AGAP has closed, liver enzymes severely elevated consistent with shocked lover but we will order us of abdomen to assess Liver and Gallbladder. Ketones of 0.2. We have discontinued DKA protocol and pt ,may be downgraded from ICU today. 2/ patient was seen and examined at bedside with family present. Patient is awake alert able to answer simple questions appropriately. Patient is on room air appears to be tolerating well. Patient has remained hemodynamically stable. Patient denies any chest pain or shortness of breadth. Denies any nausea vomiting or abdominal pain. Most per primary nurse no acute events to be reported. We will continue to follow recommendations from Nephrology and Cardiology appreciate assistance. We will continue to monitor patient closely 2/ patient was seen and examined at bedside with family present. Patient remains on room air tolerating well. Patient is scheduled for coronary CT today we will follow recommendations from Cardiology. Patient to continue on hemodialysis per Nephrology's recommendations. Patient's WBCs trending down today 18.6 yesterday 22.0. Patient to continue on IV antibiotics. We will continue to monitor patient closely. 09/[address] coronary angiogram which revealed 90% stenosis of the LAD as well as 90% stenosis of the left circumflex. Per bedside nurse, patient was offered stent placement, however refused and is wanting to pursue this as an outpatient. Patient's blood sugar remains elevated in for 0s, we will adjust insulin as indicated. Pro mallory significantly decreased from 70 down to 6. Blood and urine cultures remain negative, sputum cultures growing Dunia. His liver enzymes remain elevated but significantly downtrended. Patient is pending AV fistula for hemodialysis, however CTS is deferring this as an outpatient in order to prioritize his CAD management. 10/01 Patient had abnormal LHC and is referred for CABG. His abdominal U/S was negative for gallstones or ductal dilation. Carotid doppler WNL. CXR consistent with pulmonary venous congestion. Continues on dialysis with temp cath per nephrology, pending AV graft by CTS. Blood sugar is persistently elevated, insulin adjusted per primary. 10/02 Patient is evaluated at bedside. Continues with dialysis as scheduled. Patient had endocrinology consult with the adjustment in his insulin regimen. Patient is pending CABG in a.m. He denies any chest pain. REVIEW OF SYSTEMS: 12 point ROS reviewed with patient. Pertinent positives mentioned above. Otherwise negative. PHYSICAL EXAM: GENERAL: alert, weak, awake oriented x 3 HEENT: EOMI, Sclera non icteric, moist mucosa NECK: Supple, no JVD, trachea midline LUNGS: coarse rhonchi breath sounds bilaterally. No wheezes HEART: Regular rate and rhythm. Normal S1 and S2, without murmurs ABD: Abdomen soft, nontender. Bowel sounds present EXT: No clubbing cyanosis or edema NEURO: Alert and oriented to person, follows commands Vital Signs (last 8hr) Date Time Temp Pulse Resp B/P (MAP) Pulse Ox O2 Delivery O2 Flow Rate FiO2 10/02/24 08:16 98.6 89 20 169/97 100 Room Air 10/02/24 06:36 82 18 N/A Room Air 10/02/24 04:00 99.5 90 19 140/47 93 Room Air LABS: Hematology Labs: Test 10/02/24 05:16 09/30/24 14:39 Range/Units White Blood Count 11.1 H 4.8-10.8 K/uL Red Blood Count 3.17 L 4.50-6.20 MIL/uL Hemoglobin 9.2 L 14.0-18.0 g/dL Hematocrit 27.8 L 42-54 % Mean Corpuscular Volume 87.7 79-99 fL Mean Corpuscular Hemoglobin 29.0 27.0-33.0 pg Mean Corpuscular Hemoglobin Concent 33.1 32.0-36.0 g/dL Red Cell Distribution Width 14.1 11.0-15.5 % Platelet Count 186 130-400 K/uL Mean Platelet Volume 11.8 H 7.5-10.5 fL Immature Granulocyte % (Auto) 3.6 H 0-1 % Neutrophils (%) (Auto) 81.9 H 40.0-77.0 % Lymphocytes (%) (Auto) 4.6 L 21.0-51.0 % Monocytes (%) (Auto) 5.5 3.0-13.0 % Eosinophils (%) (Auto) 4.2 0.0-8.0 % Basophils (%) (Auto) 0.2 0.0-5.0 % Neutrophils # (Auto) 9.1 H 1.8-7.7 K/uL Lymphocytes # (Auto) 0.5 L 1.0-4.8 K/uL Monocytes # (Auto) 0.6 0.1-1.0 K/uL Eosinophils # (Auto) 0.46 0.00-0.70 K/uL Basophils # (Auto) 0.02 0.00-0.20 K/uL Absolute Immature Granulocyte (auto 0.40 0-1 K/uL Nucleated Red Blood Cells 0.4 H 0.0-0.19 % Erythrocyte Sedimentation Rate 58 H 0-15 MM/HR Chemistry Labs: Test 10/02/24 05:19 10/02/24 05:16 10/01/24 16:04 10/01/24 05:03 Range/Units Whole Blood Glucose 406 *H 70-110 MG/DL Sodium Level 135 L 136-145 mmol/L Potassium Level 4.6 3.5-5.1 mmol/L Chloride Level 97 L 101-111 mmol/L Carbon Dioxide Level 22 21-32 mmol/L Blood Urea Nitrogen 85 *H 7-18 mg/dL Creatinine 9.1 *H 0.5-1.3 mg/dL Glomerular Filtration Rate Calc 7 >90 mL/min Random Glucose 454 *H 70-105 mg/dL Total Calcium 5.8 *L 8.5-10.1 mg/dL Phosphorus Level 6.5 H 2.5-4.9 mg/dL Total Bilirubin 0.5 0.2-1.0 mg/dL Aspartate Amino Transf (AST/SGOT) 55 H 10-37 U/L Alanine Aminotransferase (ALT/SGPT) 897 *H 12-78 U/L Alkaline Phosphatase 237 H 50-136 U/L Total Protein 5.4 L 6.0-8.3 g/dL Albumin 2.0 L 3.5-5.0 g/dL Bedside Glucose Comment Stat Lab Glu Request Lactic Acid Level 1.3 0.8-2.5 mmol/L Ferritin 447 H 30-400 ng/mL Ammonia 15 11-32 umol/L Test 09/30/24 14:39 Range/Units Iron Level 55 #L 65-175 mcg/dL Total Iron Binding Capacity 203 L 250-450 mcg/dL Percent Iron Saturation 27.0 L 30-44 % C-Reactive Protein, Quantitative 17.60 H 0.5-3.0 mg/L Procalcitonin 6.88 H 0.05-0.5 ng/mL Coagulation Labs: Test 10/01/24 05:03 Range/Units Prothrombin Time 11.7 H 9.6-11.6 SEC Prothromb Time International Ratio 1.05 0.85-1.15 Activated Partial Thromboplast Time 26.4 26.3-35.5 SEC DIAGNOSTICS / RADIOLOGY RESULTS: [Reviewed] PLAN CAD management per cardiology Optimize glycemic control Optimize pulmonary function for CABG CPAP at night AVF for dialysis upon discharge Continue IV antibiotics Repeat labs in a.m. Rest of the care per primary team NEURO: Minimize central acting medications as possible. Maintain fall precautions, adequate lighting during the day PULMONARY: Supplemental 02 as needed. Maintain aspiration precautions at all times CARDIOVASCULAR: Follow hemodynamics. Vital signs per facility protocol GI & NUTRITION: Continue with nutritional support. Continue stool softeners and laxatives as needed. KIDNEYS & ELECTROLYTES: Strict monitoring of intake, output and overall fluid balance. Avoid nephrotoxic medications to the extent possible. Medications to be dosed according to renal function. Monitor electrolytes and replace as needed ENDOCRINE: Maintain blood glucose between 100-180 at all times. Hypoglycemia protocol in place INFECTIOUS DISEASE: Trend temperature, WBC and procalcitonin level Follow cultures, deescalate antibiotics as soon as possible. Panculture if new onset fever ONCOLOGY/HEMATOLOGY/COAGULATION: Monitor for s/s of bleeding Monitor hemoglobin, coagulation studies as needed SKIN: Pressure ulcer prevention per facility protocol Specialty mattress ORTHO/REHAB: Continue PT/OT Prophylaxis: Continue GI and DVT prophylaxis Code Status: Full Resuscitation Disposition: TBD Other: Case discussed with supervising physician plan of care agreed upon MARIELOS VALLEJO Oct 02, 2024 10:20
[2024-10-02] MEDS ORDERED: ceFAZolin SODIUM 2 GM VIAL IVPB SCH (10:30)
--- NOTE | 2024-10-02 10:35 | PN ---
SUBJECTIVE: The patient is a 49-year-old male known to us from a consult for hemodialysis access. The patient on this admission had new onset renal failure, requiring hemodialysis, which he receives through a dialysis catheter. We saw the patient for left-sided AV fistula or AV graft; however, he was being worked up by his intramural director, who knew him as an outpatient, for coronary artery disease. The patient had a cardiac CT scan, which then led to a heart catheterization yesterday. The heart catheterization revealed a three-system coronary artery disease. OBJECTIVE: GENERAL: The patient is a pleasant middle-aged male in no apparent distress, accompanied in the room by his . HEENT: Reveals normocephalic, atraumatic. Extraocular movements are intact. HEART: S1, S2 and regular. LUNGS: Unlabored at rest, off of oxygen. ABDOMEN: Reveals mild obesity with positive bowel sounds. EXTREMITIES: Still reveals some edema. ASSESSMENT AND PLAN: Three-system coronary artery disease. Recommend surgical revascularization in the operating room. Risks of , stroke, bleeding, transfusion, infection, arrhythmias were all discussed with the patient who understands and wishes to proceed. Would continue with hemodialysis and removal of fluid as tolerated to optimize him for surgery. TID: [id number] RECEIPT: [id number]
--- NOTE | 2024-10-02 13:32 | PN ---
NEPHROLOGY PROGRESS NOTE Date/Time Patient Seen: Oct 02, 2024 Reason for Consultation: 13:30 SUBJECTIVE: This is a 49-year-old male with past medical history of CKD, diabetes, hypertension, hyperlipidemia and obesity He presents to the ED for complaints of cough and chest congestion Patient reports coughing up pinkish colored thick phlegm, loss of appetite and on Sunday Positive for influenza A, Chest x-ray result revealed extensive bilateral mid to lower lung pneumonia right greater than left. Coronary CTA that showed severe stenosis ( Prox-mid LAD 90 % stenosis, Prox and mid LCx 90 % stenosis ) CAD -RAD 4 A S/P coronary angiogram yesterday and was found with severe 2 vessel CAD in the LAD and Left Cx, CV surgery consulted for CABG evaluation, scheduled for tomorrow He was noted with elevated BUN/creatinine. We will has been consulted for renal failure. Renal function continued to worsen He has been initiated on renal replacement therapy He has been tolerating dialysis without difficulty. Pending PermCath placement and AV access Case management coordinating outpatient dialysis chair [facility] He was seen in the medical floor, in no acute distress Family at the bedside Prognosis remains guarded REVIEW OF SYSTEMS: GENERAL: Positive for cough, congestion and generalized weakness NEUROLOGIC: Negative for any blurry vision, blind spots, double vision, facial asymmetry, dysphagia, dysarthria, hemiparesis, hemisensory deficits, vertigo, ataxia. HEENT: Negative for any head trauma, neck trauma, neck stiffness, photophobia, phonophobia, sinusitis, rhinitis. CARDIAC: Negative for any chest pain, dyspnea on exertion, paroxysmal nocturnal dyspnea, peripheral edema. PULMONARY: Negative for any shortness of breath, wheezing, COPD, or TB exposure. GASTROINTESTINAL: Negative for any abdominal pain, nausea, vomiting, bright red blood per rectum, melena. GENITOURINARY: Negative for any dysuria, hematuria, incontinence. INTEGUMENTARY: Negative for any rashes, cuts, insect bites. RHEUMATOLOGIC: Negative for any joint pains, photosensitive rashes, history of vasculitis or kidney problems. HEMATOLOGIC: Negative for any abnormal bruising, frequent infections or bleeding. PHYSICAL EXAM: GENERAL: Alert and oriented x 3. No acute distress. Well-nourished. EYES: EOMI. Anicteric. HENT: Moist mucous membranes. No scleral icterus. No cervical lymphadenopathy. LUNGS: Clear to auscultation bilaterally. No accessory muscle use. CARDIOVASCULAR: Regular rate and rhythm. No murmur. No JVD. ABDOMEN: Soft, non-tender and non-distended. No palpable masses. EXTREMITIES: 2+ edema. Non-tender. SKIN: No rashes or lesions. Warm. NEUROLOGIC: No focal neurological deficits. CN II-XII grossly intact, but not individually tested. PSYCHIATRIC: Cooperative. Appropriate mood and affect. LABORATORY: [ ] Hematology Labs: Test 10/02/24 05:16 09/30/24 14:39 Range/Units White Blood Count 11.1 H 4.8-10.8 K/uL Red Blood Count 3.17 L 4.50-6.20 MIL/uL Hemoglobin 9.2 L 14.0-18.0 g/dL Hematocrit 27.8 L 42-54 % Mean Corpuscular Volume 87.7 79-99 fL Mean Corpuscular Hemoglobin 29.0 27.0-33.0 pg Mean Corpuscular Hemoglobin Concent 33.1 32.0-36.0 g/dL Red Cell Distribution Width 14.1 11.0-15.5 % Platelet Count 186 130-400 K/uL Mean Platelet Volume 11.8 H 7.5-10.5 fL Immature Granulocyte % (Auto) 3.6 H 0-1 % Neutrophils (%) (Auto) 81.9 H 40.0-77.0 % Lymphocytes (%) (Auto) 4.6 L 21.0-51.0 % Monocytes (%) (Auto) 5.5 3.0-13.0 % Eosinophils (%) (Auto) 4.2 0.0-8.0 % Basophils (%) (Auto) 0.2 0.0-5.0 % Neutrophils # (Auto) 9.1 H 1.8-7.7 K/uL Lymphocytes # (Auto) 0.5 L 1.0-4.8 K/uL Monocytes # (Auto) 0.6 0.1-1.0 K/uL Eosinophils # (Auto) 0.46 0.00-0.70 K/uL Basophils # (Auto) 0.02 0.00-0.20 K/uL Absolute Immature Granulocyte (auto 0.40 0-1 K/uL Nucleated Red Blood Cells 0.4 H 0.0-0.19 % Erythrocyte Sedimentation Rate 58 H 0-15 MM/HR Chemistry Labs: Test 10/02/24 10:48 10/02/24 05:16 10/01/24 16:04 10/01/24 05:03 Range/Units Whole Blood Glucose 343 H 70-110 MG/DL Sodium Level 135 L 136-145 mmol/L Potassium Level 4.6 3.5-5.1 mmol/L Chloride Level 97 L 101-111 mmol/L Carbon Dioxide Level 22 21-32 mmol/L Blood Urea Nitrogen 85 *H 7-18 mg/dL Creatinine 9.1 *H 0.5-1.3 mg/dL Glomerular Filtration Rate Calc 7 >90 mL/min Random Glucose 454 *H 70-105 mg/dL Total Calcium 5.8 *L 8.5-10.1 mg/dL Phosphorus Level 6.5 H 2.5-4.9 mg/dL Total Bilirubin 0.5 0.2-1.0 mg/dL Aspartate Amino Transf (AST/SGOT) 55 H 10-37 U/L Alanine Aminotransferase (ALT/SGPT) 897 *H 12-78 U/L Alkaline Phosphatase 237 H 50-136 U/L Total Protein 5.4 L 6.0-8.3 g/dL Albumin 2.0 L 3.5-5.0 g/dL Bedside Glucose Comment Stat Lab Glu Request Lactic Acid Level 1.3 0.8-2.5 mmol/L Ferritin 447 H 30-400 ng/mL Ammonia 15 11-32 umol/L Test 09/30/24 14:39 Range/Units Iron Level 55 #L 65-175 mcg/dL Total Iron Binding Capacity 203 L 250-450 mcg/dL Percent Iron Saturation 27.0 L 30-44 % C-Reactive Protein, Quantitative 17.60 H 0.5-3.0 mg/L Procalcitonin 6.88 H 0.05-0.5 ng/mL Coagulation Labs: Test 10/01/24 05:03 Range/Units Prothrombin Time 11.7 H 9.6-11.6 SEC Prothromb Time International Ratio 1.05 0.85-1.15 Activated Partial Thromboplast Time 26.4 26.3-35.5 SEC DIAGNOSTICS / RADIOLOGY: REASON: sob ORDERING PHYSICIAN: MARIELOS VALLEJO PROCEDURE: CXR1VW - CHEST 1VW Exam Type: CHEST 1VW Clinical Information: sob Comparison: None Findings: Right permacath line is noted with tip at the distal superior vena caval level. There is cardiomegaly. There is prominence of the vascular markings consistent with pulmonary venous congestion. IMPRESSION: Findings consistent with pulmonary venous congestion. DICTATED BY: ORTIZ BENITES MD DATE: 10/01/24 190 REASON: preop CABG ORDERING PHYSICIAN: CANDIDA SZYMANSKI MD PROCEDURE: CAROTID - US CAROTID DUPLEX Carotid Duplex and color-flow Doppler bilateral History: preop CABG Comparison: None Findings: No significant plaque is identified on either side. Left Internal Carotid Artery Peak Systolic Velocity (PSV), Left Internal Carotid to Common Carotid Artery peak systolic velocity ratio, Right Internal Carotid Artery Peak Systolic Velocity (PSV) and Right Internal Carotid to Common Carotid Artery peak systolic velocity ratio, are all within normal limits. External carotid artery velocities normal bilaterally. Bilateral vertebral arteries show antegrade flow. Impression: Normal exam. NASCET CRITERIA. The degree of internal carotid artery stenosis is based on NASCET criteria. Normal is no stenosis. Mild is less than 50% stenosis. Moderate is 50-69% stenosis. Severe is 70% to 99% stenosis. Total occlusion is no detectable patent lumen. DICTATED BY: ORTIZ BENITES MD DATE: 10/01/24 1621 REASON: nstemi ORDERING PHYSICIAN: ARIELA CHOI MD PROCEDURE: CTCAWC - CT CARDIAC ANGIO W/CONT. CCTA CT OF THE CHEST WITH CONTRAST- CT Cardiac Angio co-interpretation This is done as part of the CT cardiac angiogram study. The interpretation of the coronary arteries will be done by registered occupational therapist in a separate report. History: over-read Comparison: none CT Dose Index (CTDI): 77.90 mGy Dose Length Product (DLP): 493.40 total mGy PROTOCOL: Examination is done at 2.5 millimeter volumetric acquisition after contrast administration with Isovue 370, 100 cc IV, without complications. Photography is done at 5 millimeter thick intervals for the thorax. The examination begins above the heart and therefore the lung apices are incompletely included. The rest of the left lung is included but the right lung is only included up to its middle third. The periphery of the right lung is not included in the study. FINDINGS: The visualized part of the airway is preserved. The bony and soft tissue structures of the chest wall are unremarkable. The aorta is unremarkable. No mediastinal lymphadenopathy is seen. The appendix is distended and there are surrounding inflammatory changes and the possibility of acute appendicitis cannot be excluded. There is no evidence of pulmonary embolism in the visualized lung segments. The upper abdominal views are unremarkable. Impression: NoThe appendix is distended and there are surrounding inflammatory changes and the possibility of acute appendicitis cannot be excluded. DICTATED BY: ORTIZ BENITES MD DATE: 09/29/24 1453 REASON: assess liver cirrhosis and CBD dilation ORDERING PHYSICIAN: SHAVON ARAGON PROCEDURE: ABDOMEN - US ABDOMINAL COMPLETE US ABDOMINAL COMPLETE HISTORY: No additional history given. COMPARISON: None TECHNIQUE: Multiple transverse and longitudinal ultrasound images of the abdomen were obtained. FINDINGS: Abdominal aorta and inferior vena cava are unremarkable. The visualized portion of the pancreas is within normal limits. Portal vein is patent. Liver measures 17 cm. Liver is echogenic consistent with liver parenchymal disease. No gallstone is seen. Common duct measures 4 mm. No evidence of gallbladder wall thickening is seen. Both kidneys are seen. Right kidney measures 10.3 x 4.9 x 5 cm. Left kidney measures 10.3 x 6.4 x 3 cm. No hydronephrosis is seen of the both kidneys. Spleen measures 12 cm. The spleen is grossly unremarkable. IMPRESSION: 1. No gallstone or ductal dilatation is seen. 2. No hydronephrosis is seen. DICTATED BY: JENNIFER MESA MD DATE: 09/28/24 1528 REASON: hypoxic resp failure ORDERING PHYSICIAN: SHAVON ARAGON PROCEDURE: CXR1VW - CHEST 1VW CHEST 1VW REASON: hypoxic resp failure COMPARISON: 09/23/2024 FINDINGS: There are diffuse bilateral infiltrates which are unchanged. Dialysis catheter remains in place. There is no pneumothorax or other complication. There are no pleural effusions. IMPRESSION: 1. Extensive bilateral infiltrates unchanged. DICTATED BY: ARMANDO FAIR MD DATE: 09/24/24 1051 REASON: FVO ORDERING PHYSICIAN: FELIX BARBOSA NP PROCEDURE: ECHO CMP - ECHO 2-D COMPLETE APPROVED REPORT EXAM: Two-dimensional and M-mode echocardiogram with Doppler and color Doppler. INDICATION ICD: Fluid volume overload 2D Dimensions RVDd 4.4 cm LVEF(%) 41.1 (>50%) LVED Vol(simp.) 176.0 mL IVSd 1.0 (0.7-1.1cm) FS(%) 20 % LVES Vol(simp.) 104.0 mL LVDd 5.4 (3.8-5.6cm) LA (2D) 4.1 (1.6-4.0cm) LVEF(%, simp.) 41 % PWd 1.4 (0.7-1.1cm) Ao Root(2D) 2.9 (2.0-3.7cm) LA ESV INDEX (4CH) 33.40 mL/m2 IVSs 1.2 cm LVOT diam 2.0 (1.8-2.4cm) LA ESV INDEX (2CH) 45.20 m L/m2 LVDs 4.3 (2.5-4.0cm) IVC diam 2.1 cm LA ESV INDEX (BP) 39.50 mL/m2 PWs 2.0 cm Deformation Strain Apical 4 -9.0 % Apical 2 -9.0 % Apical 3 -9.0 % Global Strain -9.0 % M-Mode Dimensions EPSS 1.7 cm LA (MM) 3.4 (1.6-4.0cm) Ao Root(MM) 3.3 (2.0-3.7cm) Aortic Valve AoV VTI 0.3 m Ao Mean GR 9.0 mmHg LVOT VTI 0.20 m STEPHANIE (VMAX) 1.9 cm2 STEPHANIE (VTI) 1.9 cm2 Mitral Valve MV E Vmax 149.3 cm/s DECEL Time 78 ms P 1/2 T 56 ms MVA (PHT) 3.9 cm2 TDI E/E' Medial 19.4 E/E' Lateral 11.8 Medial E' Peak V 7.70 cm/s Lateral E' Peak V 12.70 cm/s Tricuspid Valve RAP (EST) 8 mmHg RVSP 8.0 mmHg Left Ventricle The left ventricle is normal size. The inferior wall is severely hypokinetic. The other ibrahim are hypokinetic. Moderate concentric hypertrophy of the left ventricle is noted. Left ventricle systolic function is moderate to severely depressed, estimated LVEF 35 to 40%. E to E ratio is greater than 14, which is suggestive of increased left ventricle end-diastolic filling pressures. Right Ventricle The right ventricle is dilated. The right ventricular systolic function is norm al. Atria The left atrium is mildly dilated, 40 mL/m. The right atrium is dilated. Aortic Valve Aortic valve is probably trileaflet. The leaflets are severely thickened and calcified. Trace aortic regurgitation. Mild aortic stenosis: Peak velocity 2.0 m /s, mean gradient 9 mmHg Mitral Valve Mild mitral annular calcification is noted. The leaflets are mild thickened and calcified. Trace mitral regurgitation. There is no mitral valve stenosis. Tricuspid Valve The tricuspid valve is normal in structure. Trace tricuspid regurgitation. RVSP is grossly normal, but is likely underestimated. Pulmonic Valve Pulmonic valve is not well visualized. Great Vessels The aortic root is normal in size. The IVC is normal in size and collapses <50% with inspiration. Pericardium Trace pericardial effusion. Other Information Quality : Technically difficult due to body habitus Conclusion The left atrium is mildly dilated, 40 mL/m. The right atrium is dilated. The right ventricle is dilated. Moderate concentric hypertrophy of the left ventricle is noted. The inferior wall is severely hypokinetic. The other ibrahim are hypokinetic. Left ventricle systolic function is moderate to severely depressed, estimated LVEF 35 to 40%. E to E ratio is greater than 14, which is suggestive of increased left ventricle end-diastolic filling pressures. Mild aortic stenosis: Peak velocity 2.0 m/s, mean gradient 9 mmHg (likely underestimated). Trace aortic regurgitation. Trace mitral regurgitation. Trace pericardial effusion. PASP is grossly normal, but is likely under estimated. Trace pericardial effusion. DICTATED BY: RONALD AGUAYO MD DATE: 09/23/24 0731 REASON: acute renal failure ORDERING PHYSICIAN: TERRANCE CHAN PROCEDURE: RENAL - US RENAL SONOGRAM US RENAL SONOGRAM REASON: acute renal failure COMPARISON: None TECHNIQUE: Renal and bladder sonogram was performed. FINDINGS: Right kidney is 11.3 x 4.9 x 4.7 cm, left is 11.5 x 5.5 x 4.4 cm. There is no mass, stone or hydronephrosis. Cortical thickness appears preserved. Echogenicity appears normal. The urinary bladder appears normal as well. IMPRESSION: 1. Normal renal and bladder sonogram. DICTATED BY: ARMANDO FAIR MD DATE: 09/22/24 1127 REASON: sob ORDERING PHYSICIAN: TERRANCE CHAN PROCEDURE: CHEST WO - CT CHEST W/O CONTRAST CT CHEST WITHOUT CONTRAST INDICATION: Bilateral lung pneumonia TECHNIQUE: Routine axial images using 5 mm slice thickness were acquired from the lung apices to the bases without the administration of IV contrast.Coronal and sagittal reformatted images acquired for interpretation. CT was performed with one or more of the following dose reduction techniques: Automated exposure control, adjustment of the mA and/or kV according to patient size, or use of iterative reconstruction technique. COMPARISON: None FINDINGS: The heart size is normal. Coronary arterial wall calcific plaque noted. No pericardial effusion noted. Mild calcific plaque is present along the aortic arch and thoracic aortic ibrahim without aneurysmal dilation. The trachea and airways are patent. Coalescent "ground-glass" opacities with intermixed consolidation/nodularity noted throughout the bilateral lungs in a centrilobular distribution. No axillary, hilar, or mediastinal lymphadenopathy. No pleural effusion or pneumothorax identified. Limited views of the upper abdomen appear normal. Visible osseous structures are intact. IMPRESSION: Extensive bilateral lung pneumonia. Arteriosclerotic disease as described. DICTATED BY: AGUS MC MD DATE: 09/21/242025 REASON: cough, shortness of breath ORDERING PHYSICIAN: HEBER CABRERA NP PROCEDURE: CXR1VW - CHEST 1VW PORTABLE CHEST RADIOGRAPH INDICATION: cough, shortness of breath COMPARISON: 04/05/2024 FINDINGS: Heart size is normal. The pulmonary vascularity and eder appear normal. Extensive coalescent/consolidative bilateral mid to lower lung opacities, right greater than left. No significant pleural effusion noted. No pneumothorax detected. IMPRESSION: Extensive bilateral mid to lower lung pneumonia, right greater than left. DICTATED BY: AGUS MC MD DATE: 09/21/241899 ASSESSMENT: Volume overload End-stage renal disease Hyperosmolar Hyperglycemic Syndrome NSTEMI Influenza A Acute Hypoxemic Respiratory Failure Metabolic acidosis Lactic acidosis CKD stage 4 Uncontrolled Diabetes Protein Calorie malnutrition PLAN: Labs, diagnostic, radiologic exams reviewed and interpreted by myself and supervising physician. We have reviewed external records in detail Patient was evaluated by CV surgeon for CABG, which is scheduled for tomorrow We will reach out to CV surgeon regarding dialysis schedule, if agreeable patient will be dialyzed today We will continue to monitor the patient closely Case management to coordinate outpatient dialysis chair [facility]. Preserve nondominant arm Require close monitoring of renal function and electrolytes Order CBC, CMP,and electrolytes in am Continue with antibiotics Renal diabetic diet BiPAP as necessary, for respiratory distress Monitor blood pressure adjust medication doses as needed Avoid hypotensive episodes May use Dilaudid 0.5 mg IV every 6 hours as needed for severe pain Monitor blood sugars Strict intake, output, and daily weight should be monitored Please renally adjust medications Avoid nephrotoxic and nonsteroidal drugs Avoid contrast if possible Will continue to monitor renal function, anemia, electrolytes Treatment plan discussed with patient Questions were answered We have discussed with the other team physicians in detail about the care plan ATTESTATION BY PHYSICIAN I have seen and examined the patient. I reviewed the documentation, medical decision making, and treatment plan as noted by the mid-level provider above. I agree with the findings and plan of care. BRAYDON HOLLINGSWORTH MD, [facility] Oct 02, 2024 13:32
--- NOTE | 2024-10-02 14:50 | NUR ---
SADIE BRANTLEY.DR HUGHES MADE AWARE THAT DR ZAMBRANO IS WABTING TO KNOW IF THEY WANT HD SESSION TODAY D/T PEDAL EDEMA AND ELEVATED B/P
--- NOTE | 2024-10-02 19:38 | CONS ---
CONSULT NOTE: endocrinology consult chief complaint: chest congestion reason for consult: uncontrolled dm-2 Date of Service: 10/02/2024 HISTORY OF PRESENT ILLNESS: This is a 49-year-old male with past medical history of CKD not on hemodialysis, diabetes, hypertension, hyperlipidemia and obesity who presents to the ED for complaints of cough and chest congestion. patient initial vital signs temperature 98.1, heart rate 108, respiration 30 blood pressure 130/68 saturation 91% on 4 L nasal cannula. Labs: WBC 11.2, hemoglobin 9, hematocrit 27, platelet count 238, neutrophils 88. PH 7.32, CO2 26, PO2 49.6, bicarb 13, PO2 80 base excess -11.3. Sodium 129, potassium 5.9, chloride 93, CO2 19, BUN 88, creatinine 8.2, GFR seven glucose 876 , lactic acid 3.0-3.2, troponin 5531 albumin 2.1. Influenza A positive influenza B negative SARs COVID negative. Strep A negative. Chest x-ray result revealed extensive bilateral mid to lower lung pneumonia right greater than left. First ECG result revealed sinus tachycardia heart rate 121 probable left atrial enlargement repolarization abnormal suggest ischemia diffuse leads ST-elevation consider anterior injury. Second EKG result revealed sinus tachycardia repolarization abnormality suggest ischemia diffuse leads borderline ST elevation anterior leads heart rate 108. While in the ER patient received Tamiflu 75 mg p.o., 1 L NS bolus, Lopressor 5 mg IV, insulin 10 units IV, Zosyn IV, Zofran 4 mg IV and Phenergan codeine 10 mL p.o. he is treated with antibiotics. cardiology following and pendingg CABG. glucose runs greater than 300 mg/dl and insulin adjusted. home regimen: novolin 70/30 insulin 70 units twice per day. REVIEW OF SYSTEMS CONSTITUTIONAL: Denies fevers, chills, or night sweats. No unintentional weight loss reported. NEUROLOGICAL: Denies headache, amaurosis fugax, motor weakness, sensory deficit, vertigo/spinning sensation, gait abnormalities, or tremors. ENT: No hearing loss, otalgia, otorrhea, rhinitis, rhinorrhea, hoarseness, or sore throat. CARDIOVASCULAR: Denies paroxysmal nocturnal dyspnea, palpitations, life- threatening arrhythmias, claudication. PULMONARY: Complaints of productive cough , pleuritic chest pain SLEEP: Complains of unable to sleep Denies morning headaches, daytime somnolence or napping. Denies waking from sleep. Denies knowledge of snoring. GASTROINTESTINAL: Complaints of loss of appetite, Denies any type of dysphagia to either liquids or solids. Denies nausea, vomiting, pyrosis, early satiety, abdominal pain, diarrhea, constipation, or changes in stool consistency or caliber. Denies coffee-ground emesis, hematemesis, hematochezia, or melanotic stools. GENITOURINARY: Denies frequency, urgency, nocturia, hematuria or incontinence (Storage/Irritative symptoms.) Low urinary stream, straining to void, urinary intermittency or hesitancy, splitting of the voiding stream, terminal dribbling. ENDOCRINOLOGIC: Denies polyuria, polydipsia, polyphagia or heat/cold intolerances. Patient reports not taking medications for diabetes because he was not eating. HEMATOLOGIC: Denies thrombophilia/previous clots, or coagulopathy/bleeding disorders. ONCOLOGIC: Denies personal history of malignancy. DERMATOLOGIC: Denies rashes or pruritus. PSYCHIATRIC: Denies any suicidal or homicidal ideation. Denies hallucinations. PAST MEDICAL HISTORY: Chronic kidney disease Diabetes type 2 Hypertension Hyperlipidemia Obesity PAST SURGICAL HISTORY: Left eye cataract surgery one month ago PAST SOCIAL HISTORY: Patient lives with . Patient denies alcohol tobacco and recreational drug use FAMILY HISTORY: Noncontributory Coded Allergies: No Known Allergies (Unverified Allergy, Unknown, 03/27/22) PHYSICAL EXAM GENERAL APPEARANCE: The patient is awake, alert, and oriented appears generally weak NEUROLOGICAL: Cranial nerves II-XII grossly intact. Motor is 5/5 in bilateral upper and lower extremities proximal to distal. No sensory deficits. HEENT: Face is symmetric. Pupils are equal and reactive. Extraocular movements are intact. NECK: Supple. No JVD. No thyromegaly. No submental, submandibular, pre- /postauricular, occipital or supraclavicular lymphadenopathy. CHEST: Normal chest expansion. No Telemetry. LUNGS: . Diminished lung sounds to bilateral lung james CARDIOVASCULAR: Tachycardic Regular. S1 and S2 normal. No appreciable rubs, murmurs or gallops. ABDOMEN: There is no rebound, voluntary guarding, or rigidity. : Deferred. No Del Cid. EXTREMITIES: Non-edematous and not cyanotic. No clubbing. Good capillary refill. SKIN: No skin breakdown. ASSESSMENT: Hyperosmolar Hyperglycemic Syndrome POA resolved but glucose are still elevated. insulin adjusted Uncontrolled Diabetes POA hba1c 12.9% glucose runs greater than 300 mg/dl and insulin adjusted. home regimen: novolin 70/30 insulin 70 units twice per day. NSTEMI POA cath shows CAD and pending CABG Influenza bronchopneumonia with sepsis POA Acute Hypoxemic Respiratory Failure POA Acute on chronic renal failure with concern for ATN POA ON HD Metabolic acidosis POA Lactic acidosis POA CKD stage 4 POA Protein Calorie malnutrition POA PLAN: increase lantus to 50 units bid increase lispro insulin to 25 units tid before meals continue high dose ssi monitor glucose qx6 hourly thanks for allowing me to participate in patient care and will continue to follow up. Vital Signs 10/02/24 10/02/24 10/02/24 09:00 17:13 17:40 Temp 97.7 Pulse 80 Resp 16 B/P (MAP) 136/66 Pulse Ox 99 O2 Delivery Room Air O2 Flow Rate 0 FiO2 21 Hematology Labs: Test 10/02/24 05:16 Range/Units White Blood Count 11.1 H 4.8-10.8 K/uL Red Blood Count 3.17 L 4.50-6.20 MIL/uL Hemoglobin 9.2 L 14.0-18.0 g/dL Hematocrit 27.8 L 42-54 % Mean Corpuscular Volume 87.7 79-99 fL Mean Corpuscular Hemoglobin 29.0 27.0-33.0 pg Mean Corpuscular Hemoglobin Concent 33.1 32.0-36.0 g/dL Red Cell Distribution Width 14.1 11.0-15.5 % Platelet Count 186 130-400 K/uL Mean Platelet Volume 11.8 H 7.5-10.5 fL Immature Granulocyte % (Auto) 3.6 H 0-1 % Neutrophils (%) (Auto) 81.9 H 40.0-77.0 % Lymphocytes (%) (Auto) 4.6 L 21.0-51.0 % Monocytes (%) (Auto) 5.5 3.0-13.0 % Eosinophils (%) (Auto) 4.2 0.0-8.0 % Basophils (%) (Auto) 0.2 0.0-5.0 % Neutrophils # (Auto) 9.1 H 1.8-7.7 K/uL Lymphocytes # (Auto) 0.5 L 1.0-4.8 K/uL Monocytes # (Auto) 0.6 0.1-1.0 K/uL Eosinophils # (Auto) 0.46 0.00-0.70 K/uL Basophils # (Auto) 0.02 0.00-0.20 K/uL Absolute Immature Granulocyte (auto 0.40 0-1 K/uL Nucleated Red Blood Cells 0.4 H 0.0-0.19 % Chemistry Labs: Test 10/02/24 15:56 10/02/24 05:16 10/01/24 16:04 10/01/24 05:03 Range/Units Whole Blood Glucose 340 H 70-110 MG/DL Sodium Level 135 L 136-145 mmol/L Potassium Level 4.6 3.5-5.1 mmol/L Chloride Level 97 L 101-111 mmol/L Carbon Dioxide Level 22 21-32 mmol/L Blood Urea Nitrogen 85 *H 7-18 mg/dL Creatinine 9.1 *H 0.5-1.3 mg/dL Glomerular Filtration Rate Calc 7 >90 mL/min Random Glucose 454 *H 70-105 mg/dL Total Calcium 5.8 *L 8.5-10.1 mg/dL Phosphorus Level 6.5 H 2.5-4.9 mg/dL Total Bilirubin 0.5 0.2-1.0 mg/dL Aspartate Amino Transf (AST/SGOT) 55 H 10-37 U/L Alanine Aminotransferase (ALT/SGPT) 897 *H 12-78 U/L Alkaline Phosphatase 237 H 50-136 U/L Total Protein 5.4 L 6.0-8.3 g/dL Albumin 2.0 L 3.5-5.0 g/dL Bedside Glucose Comment Stat Lab Glu Request Lactic Acid Level 1.3 0.8-2.5 mmol/L Ferritin 447 H 30-400 ng/mL Ammonia 15 11-32 umol/L Coagulation Labs: Test 10/01/24 05:03 Range/Units Prothrombin Time 11.7 H 9.6-11.6 SEC Prothromb Time International Ratio 1.05 0.85-1.15 Activated Partial Thromboplast Time 26.4 26.3-35.5 SEC Current Medications Medications (Trade) Dose Ordered Sig/Sierra Route Start Time Stop Time Status Last Admin Dose Admin Albumin Human 100 ml @ 0 mls/hr AD STAT IV 09/25/24 23:09 09/25/24 23:12 DC 09/25/24 23:17 100 MLS/HR Albuterol (DUOneb) 1 udvial [id number] IH 09/21/24 22:00 09/25/24 09:59 DC 09/25/24 06:43 1 UDVIAL Albuterol (DUOneb) 1 udvial [id number] IH 09/25/24 10:00 09/26/24 15:22 DC 09/26/24 11:17 1 UDVIAL Aspirin (Aspirin 81mg Ec Tab) 81 mg DAILY PO 09/22/24 09:00 10/22/24 08:59 10/02/24 09:28 81 MG Atorvastatin Calcium (LIPItor 20MG) 20 mg HS PO 09/23/24 21:00 09/27/24 10:38 DC 09/26/24 20:36 20 MG Atorvastatin Calcium (LIPItor 40MG) 40 mg HS PO 09/22/24 21:00 09/22/24 20:17 DC Atorvastatin Calcium (LIPItor 40MG) 40 mg HS PO 09/30/24 21:00 10/30/24 20:59 10/01/24 19:51 40 MG Azithromycin 250 ml @ 250 mls/hr Q24H IVPB 09/21/24 18:00 09/21/24 18:14 DC Calcium Carbonate (Oyster Shell Ca 500mg Tab) 1,000 mg TID PO 09/30/24 14:00 10/30/24 13:59 10/02/24 13:39 1,000 MG Calcium Gluconate 1 gm/Sodium Chloride 100 ml @ 0 mls/hr PROTOCOL IV 10/01/24 17:00 10/31/24 16:59 Cefazolin Sodium (Ancef) 2 gm ONCALL IVPB 10/02/24 10:30 10/04/24 10:29 Cefepime HCl (MAXipime 1 GM vial) 1 gm Q24H IVPB 09/23/24 08:30 09/26/24 11:14 DC 09/25/24 08:36 1 GM Clopidogrel Bisulfate (plaVIX 75MG) 75 mg DAILY PO 09/24/24 09:00 09/26/24 07:14 DC 09/25/24 08:38 75 MG Clopidogrel Bisulfate (plaVIX 75MG) 75 mg DAILY PO 09/30/24 09:00 10/01/24 08:26 DC 09/30/24 08:49 75 MG Dextrose/Sodium Chloride 1,000 ml @ 0 mls/hr AD IV 09/22/24 00:00 09/23/24 21:23 DC 09/22/24 09:49 150 MLS/HR Doxycycline Hyclate (Doxycycline Hyclate) 100 mg BID PO 09/21/24 21:00 09/30/24 23:59 DC 09/30/24 20:53 100 MG Epoetin Moses-epbx (Retacrit) 10,000 unit QMOWEFR SQ 10/01/24 09:00 10/31/24 08:59 10/01/24 15:34 10,000 UNIT Famotidine (Pepcid 20mg Vial) 10 mg DAILY IV 09/22/24 09:00 09/27/24 10:35 DC 09/27/24 09:09 10 MG Famotidine (Pepcid 20mg Tab) 10 mg Q48H PO 09/21/24 19:30 09/21/24 20:00 DC Ferrous Sulfate (Ferrous Sulfate) 325 mg DAILY PO 09/23/24 09:00 10/23/24 08:59 10/02/24 09:30 325 MG Fish Oil (Fish Oil 1000 Mg/Cap) 2,000 mg BID PO 09/22/24 21:00 10/22/24 20:59 10/02/24 09:27 2,000 MG Fluconazole/ Sodium Chloride (DiFLUCan 200 MG/ NS 100 ML) 200 mg Q24H IV 09/25/24 16:00 09/27/24 10:36 DC 09/26/24 14:38 200 MG Furosemide (LASix 40MG VIAL) 80 mg Q12H IV 09/22/24 21:00 09/26/24 15:22 DC 09/26/24 13:20 80 MG Gabapentin (NEURontin 100 mg CAP) 100 mg DAILY PO 10/01/24 09:00 10/24/24 20:59 10/02/24 09:28 100 MG Gabapentin (NEURontin 100 mg CAP) 100 mg TID PO 09/24/24 21:00 09/30/24 17:37 DC 09/30/24 14:07 100 MG Heparin Sodium (Porcine) (HEParin 5,000 UNIT VIAL) 10,000 unit AD IRRIG 09/27/24 14:00 10/27/24 13:59 10/01/24 17:18 10,000 UNIT Heparin Sodium/ Dextrose 250 ml @ 0 mls/hr Q6H IV 09/21/24 19:30 09/26/24 18:36 DC 09/25/24 04:13 14.7 MLS/HR Insulin Glargine (LANtus 100 UNITS/ML 10 ML VIAL) 10 units BID@0730,2100 SQ 09/22/24 21:00 09/26/24 11:15 DC 09/25/24 20:44 10 UNITS Insulin Glargine (LANtus 100 UNITS/ML 10 ML VIAL) 10 units HS SQ 09/30/24 21:00 09/30/24 17:26 DC Insulin Glargine (LANtus 100 UNITS/ML 10 ML VIAL) 15 units BID@0730,2100 SQ 09/26/24 21:00 09/30/24 17:13 DC 09/30/24 07:03 15 UNITS Insulin Glargine (LANtus 100 UNITS/ML 10 ML VIAL) 20 units AM SQ 10/01/24 09:00 09/30/24 17:26 DC Insulin Glargine (LANtus 100 UNITS/ML 10 ML VIAL) 30 units HS SQ 09/30/24 21:00 10/02/24 07:19 DC 10/01/24 19:54 30 UNITS Insulin Glargine (LANtus 100 UNITS/ML 10 ML VIAL) 50 units BID SQ 10/02/24 21:00 10/30/24 20:59 Insulin Glargine (LANtus 100 UNITS/ML 10 ML VIAL) 50 units DAILY SQ 10/02/24 07:30 10/02/24 16:53 DC 10/02/24 09:41 50 UNITS Insulin Human Lispro (HumaLOG LISpro 100 UNIT/ML 3ML) 7 unit TIDAC SQ 10/01/24 07:30 10/01/24 17:01 DC 10/01/24 16:22 7 UNIT Insulin Human Lispro (HumaLOG LISpro 100 UNIT/ML 3ML) 10 unit TIDAC SQ 10/01/24 17:00 10/01/24 19:41 DC Insulin Human Lispro (HumaLOG LISpro 100 UNIT/ML 3ML) 15 unit TIDAC SQ 10/02/24 07:30 10/02/24 07:20 DC 10/02/24 07:01 15 UNIT Insulin Human Lispro (HumaLOG LISpro 100 UNIT/ML 3ML) 20 unit TIDAC SQ 10/02/24 11:30 10/02/24 16:53 DC 10/02/24 11:48 20 UNIT Insulin Human Lispro (HumaLOG LISpro 100 UNIT/ML 3ML) 25 unit TIDAC SQ 10/02/24 17:00 11/01/24 16:59 10/02/24 17:17 25 UNIT Insulin Human Regular (humuLIN R 100 UNIT/ML 3ML) INSULIN SLIDING SCAL... ACHS SQ 09/24/24 07:30 10/24/24 07:29 10/02/24 17:23 16 UNIT Insulin Human Regular 100 unit/ Sodium Chloride 101 ml @ 0 mls/hr PROTOCOL IV 09/21/24 20:00 09/23/24 21:20 DC 09/21/24 21:01 9.8 MLS/HR Insulin Human Regular 100 unit/ Sodium Chloride 101 ml @ 0 mls/hr PROTOCOL IV 09/22/24 00:00 09/22/24 00:03 DC Insulin Human Regular 100 unit/ Sodium Chloride 101 ml @ 0 mls/hr PROTOCOL IV 09/26/24 18:30 09/27/24 10:25 DC 09/26/24 18:36 10 MLS/HR Magnesium Sulfate 50 ml @ 0 mls/hr PROTOCOL IV 09/22/24 00:00 09/23/24 21:23 DC Magnesium Sulfate 50 ml @ 0 mls/hr PROTOCOL IV 09/26/24 18:30 09/27/24 10:25 DC Mannitol 245 ml @ 0 mls/hr AD IV 09/22/24 00:30 09/22/24 20:17 DC Mannitol 500 ml @ 0 mls/hr AD IV 09/22/24 00:30 09/22/24 14:33 DC Mannitol (Osmitrol 20% 250ml Bag) 49 gm AD IV 09/22/24 00:00 09/22/24 00:28 DC Methylprednisolone Sodium Succinate (Solu-medROL 40MG) 40 mg BID IVP 09/22/24 09:00 09/27/24 10:35 DC 09/26/24 20:37 40 MG Metoprolol Succinate (TopROL XL) 25 mg BID PO 09/26/24 09:00 10/26/24 08:59 10/02/24 09:28 25 MG Metoprolol Succinate (TopROL XL) 50 mg BID PO 09/24/24 21:00 09/26/24 07:14 DC 09/24/24 19:45 50 MG Metoprolol Tartrate (loprESSOR) 12.5 mg BID PO 09/22/24 21:00 09/24/24 16:38 DC 09/24/24 12:07 12.5 MG Miscellaneous Medication (Folic Acid/ Vitamin B Comp W-C (I[place] Tablet)) 1 tab DAILY PO 09/23/24 09:00 09/22/24 15:56 DC Multivitamins Therapeutic (Multivitamin Tablet) 1 tab DAILY PO 09/23/24 09:00 10/23/24 08:59 10/02/24 09:28 1 TAB Nifedipine (adALAT 30MG) 60 mg DAILY PO 09/23/24 09:00 09/28/24 12:01 DC 09/25/24 08:37 60 MG Nitroglycerin (Nitroglycerin 1gm Oint) 0.5 inch Q8H TD 09/21/24 19:30 09/27/24 10:34 DC 09/25/24 12:44 0.5 INCH Oseltamivir Phosphate (Tamiflu) 75 mg DAILY PO 09/22/24 09:00 09/23/24 13:29 DC 09/23/24 08:38 75 MG Oseltamivir Phosphate (Tamiflu) 75 mg Q24H PO 09/26/24 17:00 09/27/24 17:01 DC 09/27/24 18:04 75 MG Oseltamivir Phosphate (Tamiflu) 75 mg QTUTHSA[DIALYSIS] PO 09/23/24 16:00 09/23/24 17:04 DC Oseltamivir Phosphate (Tamiflu) 75 mg QTUTHSA[DIALYSIS] PO 09/23/24 22:00 09/26/24 16:32 DC 09/25/24 16:09 75 MG Pantoprazole Sodium (PROTonix 40MG INJ) 40 mg BID IVP 09/27/24 21:00 10/27/24 20:59 10/02/24 09:26 40 MG Pharmacy Profile Note (Pharmacy Communication) 1 each ONCE MISC 09/23/24 13:00 09/23/24 13:25 DC Pharmacy Profile Note (Pharmacy Communication) 1 each ONCE MISC 09/23/24 21:30 09/24/24 07:08 DC Piperacillin Sod/ Tazobactam Sod 50 ml @ 12.5 mls/hr Q12H IV 09/21/24 21:00 09/23/24 08:06 DC 09/22/24 20:43 12.5 MLS/HR Piperacillin Sod/ Tazobactam Sod (Zosyn 3.375gm+NS 50ml) 3.375 gm Q12H IV 09/26/24 11:30 10/06/24 11:29 10/02/24 11:47 3.375 GM Potassium Chloride 20 meq/ Sodium Chloride 1,010 ml @ 0 mls/hr PROTOCOL IV 09/22/24 00:00 09/23/24 21:23 DC Potassium Chloride/Dextrose/ Sod Cl 1,000 ml @ 0 mls/hr AD IV 09/22/24 00:00 09/23/24 21:23 DC Prednisone (deltaSONE/ oraSONE 20MG TAB) 20 mg DAILY PO 09/28/24 09:00 10/01/24 08:59 DC 09/30/24 08:50 20 MG Sodium Bicarbonate (Sodium Bicarbonate) 650 mg TID PO 09/24/24 09:00 09/27/24 10:34 DC 09/26/24 20:36 650 MG Sodium Chloride 250 ml @ 0 mls/hr Q0M IV 09/25/24 23:00 09/27/24 10:34 DC Sodium Chloride 1,000 ml @ 0 mls/hr ONCE IV 09/23/24 19:30 09/27/24 13:51 DC 09/26/24 12:15 1,000 MLS/HR Sodium Chloride 1,000 ml @ 0 mls/hr ONCE IV 09/27/24 14:30 09/27/24 13:51 DC Sodium Chloride 1,000 ml @ 0 mls/hr ONCE IV 09/27/24 15:00 10/27/24 14:59 09/29/24 16:53 1,000 MLS/HR Sodium Chloride 1,000 ml @ 100 mls/hr Q10H IV 09/21/24 19:30 09/27/24 10:34 DC 09/23/24 12:53 100 MLS/HR Sodium Chloride 1,000 ml @ 200 mls/hr PROTOCOL IV 09/22/24 00:00 09/23/24 21:23 DC Thiamine HCl 100 mg/Folic Acid 1 mg/Multivitamins/ Minerals 10 ml/ Sodium Chloride 1,011.2 ml @ 100 mls/ hr Q24H IV 09/22/24 20:30 09/25/24 06:37 DC 09/22/24 20:43 100 MLS/HR Vancomycin HCl 250 ml @ 125 mls/hr Q72H IV 09/22/24 20:30 09/23/24 08:04 DC 09/22/24 20:48 125 MLS/HR Vancomycin HCl (Vancomycin 500mg+NS 100ml Ivpb) 1,000 mg DAILY08 IV 09/23/24 08:00 09/22/24 20:26 DC Vancomycin HCl (Vancomycin 750mg) 750 mg MWFPHD IVPB 09/26/24 16:00 10/03/24 23:29 Hold Vancomycin HCl (Vancomycin 750mg) 750 mg Q24H IVPB 09/23/24 23:30 09/25/24 06:26 DC 09/24/24 22:43 750 MG Vitamin B Complex/ Vit C/Folic Acid (Nephrovite Tablet) 1 cap DAILY PO 09/23/24 09:00 10/23/24 08:59 10/02/24 09:28 1 HENNA PALOMO MD Oct 02, 2024 19:38
--- NOTE | 2024-10-02 20:40 | NUR ---
MEDS SHIFT ASSESSMENT DONE, PLEASE REFER TO CHART. DUE MEDS ADMINISTERED, TOLERATED WELL. PM SNACKS GIVEN TO EAT. KEPT RESTED AND COMFORTABLE IN BED. CALL LIGHT WITHIN REACH. FAMILY AT BEDSIDE. INSTRUCTED TO BE NPO POST MN FOR SX IN AM. MADE AWARE OF NEED TO HAVE TWO SHOWERS WITH HEBECLENS. PT VERBALIZES UNDERSTANDING.
--- NOTE | 2024-10-02 23:00 | NUR ---
SHOWER PT TOOK FIRST SHOWER, TOLERATED ACTIVITY WELL.
[2024-10-03] VITALS (45 sets, daily range): BP systolic 58–162; BP diastolic 44–94; PULSE 75–144; RESP 5–43; TEMP 98–100.1; O2SAT 95–100
--- NOTE | 2024-10-03 04:51 | NUR ---
CONSENT [employer] ARCHITECT IN TO DO CHEST X-RAY AT BEDSIDE. CONSENT FOR CABG SIGNED BY PT AND WITNESSED BY CHEMIST INTERN, FORM PLACED IN CHART. NASAL SWAB DONE FOR MRSA TESTING. PCP IN TO MONITOR V/S, STABLE. EKG DONE, RESULTS PLACED IN CHART. PCP ASSISTED PT TO COVER LINES FOR SECOND HEBECLENS SHOWER FOR THE SHIFT. KEPT NPO.
--- NOTE | 2024-10-03 05:05 | EKG ---
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
[2024-10-03 05:37] LABS: INR 0.98 (0.85-1.15)
[2024-10-03 05:38] LABS: PARTIAL THROMBOPLASTIN TIME 26.8 SEC (26.3-35.5)
[2024-10-03 05:41] LABS: ALBUMIN 2.1 g/dL (3.5-5.0); BILIRUBIN,TOTAL 0.5 mg/dL (0.2-1.0); POTASSIUM 4.1 mmol/L (3.5-5.1); TOTAL PROTEIN, SERUM 5.6 g/dL (6.0-8.3)
[2024-10-03 05:48] LABS: BASOPHILS # (AUTO) 0.02 K/uL (0.00-0.20); BASOPHILS % (AUTO) 0.2 % (0.0-5.0); EOSINOPHILS # (AUTO) 0.59 K/uL (0.00-0.70); EOSINOPHILS % (AUTO) 5.9 % (0.0-8.0); HEMATOCRIT 27.4 % (42-54); IMMATURE GRANULOCYTE ABSOLUTE 0.36 K/uL (0-1); LYMPHOCYTES # (AUTO) 0.7 K/uL (1.0-4.8); LYMPHOCYTES % (AUTO) 6.8 % (21.0-51.0); MEAN CORPUSCULAR HEMOGLOBIN 29.4 pg (27.0-33.0); MEAN CORPUSCULAR HGB CONC 33.2 g/dL (32.0-36.0); MEAN CORPUSCULAR VOLUME 88.7 fL (79-99); MONOCYTES # (AUTO) 0.5 K/uL (0.1-1.0); MONOCYTES % (AUTO) 5.3 % (3.0-13.0); NEUTROPHILS # (AUTO) 7.8 K/uL (1.8-7.7); NEUTROPHILS % (AUTO) 78.2 % (40.0-77.0); NUCLEATED RED BLOOD CELLS 0.2 % (0.0-0.19); PLATELET COUNT (AUTO) 136 K/uL (130-400); RED BLOOD CELL COUNT(AUTO) 3.09 MIL/uL (4.50-6.20); RED CELL DISTRIBUTION WIDTH 14.3 % (11.0-15.5)
[2024-10-03 05:51] LABS: B-TYPE NATRIURETIC PEPTIDE 2810 pg/mL (0-100)
[2024-10-03 05:52] LABS: PLATELET MORPHOLOGY PLT CLUMPS PRESENT
[2024-10-03 06:00] LABS: CREATININE 8.4 mg/dL (0.5-1.3)
--- NOTE | 2024-10-03 06:55 | NUR ---
MD DR CHOI IN TO SEE PT. NO NEW ORDERS RECEIVED.
[2024-10-03] MEDS ORDERED: ceFAZolin SODIUM 1 GM VIAL ONE (07:24)
[2024-10-03] MEDS ORDERED: PAPAVERINE HCL 30 MG/ML 2ML VIAL ONE (07:24)
[2024-10-03] MEDS ORDERED: HEParin-NS 1,000 UNIT/500 ML 500 ML IV ONE (07:24)
--- NOTE | 2024-10-03 07:51 | PN ---
[facility] CARDIOLOGY PROGRESS NOTE Date Patient Seen: Oct 03, 2024 Time of Visit: 07:47 Problem List: NSTEMI Volume overload 2/2 progression of ESRD Bilateral pneumonia HTN HLD DM type II 2D echo on 04/06/2024 demonstrated an EF of 45-50% Lexiscan stress test on 04/07/2024 demonstrated a fixed basal mid inferolateral and basal inferior defect with no reversible ischemia Interval History: [No acute events overnight. We are aware abouot CV surgery recommendations , the patient will be taken to the OR today for CABG. Physical Examination: GENERAL: No acute distress. HEAD: Normal with no signs of head trauma. EYES: PERRLA, EOMI, conjunctiva and sclera normal. ENT: Hearing grossly intact, normal oropharynx. NECK: Supple without JVD. There is no tenderness, lymphadenopathy, or masses. No thyromegaly. Normal carotid upstrokes without bruits. LUNGS: Crackles to bases bilaterally. HEART: Tachycardic rate and normal rhythm. Normal S1 and S2 without murmurs, ga llop or rub. VASC: BLE 2+ pitting edema ABD: Bowel sounds normal, soft, nontender, no masses, no organomegaly. No audible bruits. : Not examined LYMPH: No lymphadenopathy noted. EXT: No clubbing, cyanosis 2+ bilateral lower extremity pitting edema SKIN: No rashes or lesions noted. NEURO: Awake, alert, and oriented x3. No focal sensory or strength deficits note d. Laboratory: [ ] Hematology Labs: Test 10/03/24 05:09 Range/Units White Blood Count 10.0 4.8-10.8 K/uL Red Blood Count 3.09 L 4.50-6.20 MIL/uL Hemoglobin 9.1 L 14.0-18.0 g/dL Hematocrit 27.4 L 42-54 % Mean Corpuscular Volume 88.7 79-99 fL Mean Corpuscular Hemoglobin 29.4 27.0-33.0 pg Mean Corpuscular Hemoglobin Concent 33.2 32.0-36.0 g/dL Red Cell Distribution Width 14.3 11.0-15.5 % Platelet Count 136 # 130-400 K/uL Mean Platelet Volume 11.6 H 7.5-10.5 fL Immature Granulocyte % (Auto) 3.6 H 0-1 % Neutrophils (%) (Auto) 78.2 H 40.0-77.0 % Lymphocytes (%) (Auto) 6.8 L 21.0-51.0 % Monocytes (%) (Auto) 5.3 3.0-13.0 % Eosinophils (%) (Auto) 5.9 0.0-8.0 % Basophils (%) (Auto) 0.2 0.0-5.0 % Neutrophils # (Auto) 7.8 H 1.8-7.7 K/uL Lymphocytes # (Auto) 0.7 L 1.0-4.8 K/uL Monocytes # (Auto) 0.5 0.1-1.0 K/uL Eosinophils # (Auto) 0.59 0.00-0.70 K/uL Basophils # (Auto) 0.02 0.00-0.20 K/uL Absolute Immature Granulocyte (auto 0.36 0-1 K/uL Nucleated Red Blood Cells 0.2 H 0.0-0.19 % Platelet Morphology PLT CLUMPS PRESENT Chemistry Labs: Test 10/03/24 05:36 10/03/24 05:09 10/02/24 05:16 10/01/24 16:04 Range/Units Whole Blood Glucose 224 H 70-110 MG/DL Sodium Level 138 136-145 mmol/L Potassium Level 4.1 3.5-5.1 mmol/L Chloride Level 99 L 101-111 mmol/L Carbon Dioxide Level 27 21-32 mmol/L Blood Urea Nitrogen 67 H 7-18 mg/dL Creatinine 8.4 *H 0.5-1.3 mg/dL Glomerular Filtration Rate Calc 7 >90 mL/min Random Glucose 272 H 70-105 mg/dL Hemoglobin A1c 12.0 H 4.0-6.0 % Estimated Average Glucose (eAG) 298 H 70-126 mg/dL Total Calcium 6.1 L 8.5-10.1 mg/dL Total Bilirubin 0.5 0.2-1.0 mg/dL Aspartate Amino Transf (AST/SGOT) 41 H 10-37 U/L Alanine Aminotransferase (ALT/SGPT) 638 #*H 12-78 U/L Alkaline Phosphatase 197 H 50-136 U/L B-Type Natriuretic Peptide 2810 H 0-100 pg/mL Total Protein 5.6 L 6.0-8.3 g/dL Albumin 2.1 L 3.5-5.0 g/dL Triglycerides Level 118 30-200 mg/dL Cholesterol Level 191 <200 mg/dL LDL Cholesterol 134 H 0-99 mg/dL HDL Cholesterol 36 29-71 mg/dL Phosphorus Level 6.5 H 2.5-4.9 mg/dL Bedside Glucose Comment Stat Lab Glu Request Coagulation Labs: Test 10/03/24 05:09 Range/Units Prothrombin Time 11.0 9.6-11.6 SEC Prothromb Time International Ratio 0.98 0.85-1.15 Activated Partial Thromboplast Time 26.8 26.3-35.5 SEC Diagnostics / Radiology: [Copy/Paste Echos/Imaging Report here] Impression and Plan: NSTEMI Volume overload 2/2 progression of ESRD Bilateral pneumonia HTN HLD DM type II 2D echo on 04/06/2024 demonstrated an EF of 45-50% Lexiscan stress test on 04/07/2024 demonstrated a fixed basal mid inferolateral and basal inferior defect with no reversible ischemia #NSTEMI Troponin of 5531, 5716, 8278, and 6392 EKG demonstrated sinus tachycardia with a heart rate of 121 beats per minute, LAE, and diffuse ischemia S/p ACS protocol. Patient has completed more than 48 hours of IV heparin and has been since discontinued -TTE showed severely hypokinetic inferior wall, EF 35-40 %, prior Lexiscan stress test shows fixed defects in the inferior wall . -Patient is currently flu positive and his luekocytosis continues to improve on IV abx. Volume reduction via HD as patient is oliguric. -The patient underwent coronary CTA that showed severe stenosis ( Prox-mid LAD 90 % stenosis, Prox and mid LCx 90 % stenosis ) CAD -RAD 4 A. -Coronary angiogram showed severe 2 vessel CAD involving LAD and Cx -CV surgery has been consulted for CABG assessment, the patient will be taken to the OR today -Hold any P2Y12 inhibitors. -Continue ASA 81 mg daily and Lipitor 40 mg daily #Acute on chronic HFrEF: ICM, LVEF 35-40% with inferior wall hypokinesis. NYHA III, volume overloaded, stage C Prior Lexiscan stress test with fixed inferior defect suggestive of scar Given his soft systolic blood pressures electrolyte derangements ( hyperkalemia ) we will defer use of ACEi/ARBs /aldactone GDMT : Continue Toprol-XL 25 mg qd Strict I's and O's and daily weights. Volume reduction via HD, Nephrology is following, recommendations appreciated Thank you for this consult cardiology will continue to follow post operatively ATTESTATION BY PHYSICIAN I have seen and examined the patient, reviewed the above documentation, participated in medical decision making, made necessary modifications, and agree with the treatment plan as documented by my mid-level provider above. MD JIMBO Rick JAMES R MD Oct 03, 2024 07:51
--- NOTE | 2024-10-03 08:40 | HMCIMG ---
Exam Type: CHEST 1VW Clinical Information: preop CABG Comparison: None Findings: Right permacath line is noted with tip at the distal superior vena caval level. The lungs are clear of infiltrates. The heart is normal in size. The bony and soft tissue structures of the chest are unremarkable. Impression: Clear lungs.
--- NOTE | 2024-10-03 09:24 | PN ---
[facility] PROGRESS NOTE Date of Service: Oct 03, 2024 Time of Service: 09:23 SUBJECTIVE: This is a 49-year-old male with past medical history of CKD not on hemodialysis, diabetes, hypertension, hyperlipidemia and obesity who presents to the ED for complaints of cough and chest congestion which started last Sunday and getting worse on Sunday. Patient reports coughing up pinkish colored thick phlegm, loss of appetite and on Sunday started not eating unable to sleep, vomiting and having chest pain triggered by persistent coughing he said.Patient reports having soreness due to hard cough he said.Patient reports having sweeling on both lower extremities and started having shortness of breath and today he started having non bloody diarrhea. Neela was at bedside during my evaluation. 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 Seen and examined patient in the Er awake,alert and coherent,appears weak looking.Patient denies fever,palpitation ,dizziness ,sore throat and headache. Latest vital signs temperature 98.1, heart rate 108, respiration 30 blood pressure 130/68 saturation 91% on 4 L nasal cannula. Labs: WBC 11.2, hemoglobin 9, hematocrit 27, platelet count 238, neutrophils 88. PH 7.32, CO2 26, PO2 49.6, bicarb 13, PO2 80 base excess -11.3. Sodium 129, potassium 5.9, chloride 93, CO2 19, BUN 88, creatinine 8.2, GFR seven glucose 876 , lactic acid 3.0-3.2, troponin 5531 albumin 2.1. Influenza A positive influenza B negative SARs COVID negative. Strep A negative. Chest x-ray result revealed extensive bilateral mid to lower lung pneumonia right greater than left. First ECG result revealed sinus tachycardia heart rate 121 probable left atrial enlargement repolarization abnormal suggest ischemia diffuse leads ST-elevation consider anterior injury. Second EKG result revealed sinus tachycardia repolarization abnormality suggest ischemia diffuse leads borderline ST elevation anterior leads heart rate 108. While in the ER patient received Tamiflu 75 mg p.o., 1 L NS bolus, Lopressor 5 mg IV, insulin 10 units IV, Zosyn IV, Zofran 4 mg IV and Phenergan codeine 10 mL p.o. we will admit patient in ICU for further medical management. 10/02/24 Patient was seen and examined at bedside. He is alert, awake and oriented. No acute events overnight. He denies chest pain or abdominal pain or palpitations or dizziness or shortness of breath. Dr. Szymanski was consulted for CABG, he will be scheduled for it later this week or next week. Dr. Perry was consulted because of constant hyperglycemia, changed his lantus to 30 and lispro 10U TID , will follow up on the glucose levels next 24 hours.As per his , Lantus never worked for him, will try 70/30 if it is not under control. Remarkable labs are sodium 135, Chloride 97, BUN 85, Creatinine 9.1, glucose 454, corrected calcium 7.4, phosphorous 6.5, his liver function is improving. 10/03/24 Patient was seen and examined at bedside. He is alert, awake and oriented. No acute events overnight. He denies chest pain or abdominal pain or palpitations or dizziness or shortness of breath. He will be taken to surgery this afternoon for CABG by . His blood glucose is improving. We will labs or hemoglobin 9.1, chloride 99, BUN 67, creatinine 8.4, HbA1c 12.0, total calcium improving from 7.4-7.6, BNP 2810, ALT improving from 897 to 638, LDL 134, [place] [address] [place] [address]. Chest x-ray showed clear lungs with right Permcath at the tip of distal superior vena cava level. REVIEW OF SYSTEMS CONSTITUTIONAL: Denies fevers, chills, or night sweats. No unintentional weight loss reported. NEUROLOGICAL: Denies headache, amaurosis fugax, motor weakness, sensory deficit, vertigo/spinning sensation, gait abnormalities, or tremors. ENT: No hearing loss, otalgia, otorrhea, rhinitis, rhinorrhea, hoarseness, or sore throat. CARDIOVASCULAR: Denies orthopnea shortness of breaths and chest pain Denies paroxysmal nocturnal dyspnea, palpitations, life-threatening arrhythmias, claudication. PULMONARY: Denies productive cough , pleuritic chest pain and shortness of breaths SLEEP: Complains of unable to sleep Denies morning headaches, daytime somnolence or napping. Denies waking from sleep. Denies knowledge of snoring. GASTROINTESTINAL: Denies loss of appetite, vomiting and diarrhea Denies any type of dysphagia to either liquids or solids. Denies nausea, vomiting, pyrosis, early satiety, abdominal pain, diarrhea, constipation, or changes in stool consistency or caliber. Denies coffee-ground emesis, hematemesis, hematochezia, or melanotic stools. GENITOURINARY: Denies frequency, urgency, nocturia, hematuria or incontinence (Storage/Irritative symptoms.) Low urinary stream, straining to void, urinary intermittency or hesitancy, splitting of the voiding stream, terminal dribbling. ENDOCRINOLOGIC: Denies polyuria, polydipsia, polyphagia or heat/cold intolerances. Patient reports not taking medications for diabetes because he was not eating. HEMATOLOGIC: Denies thrombophilia/previous clots, or coagulopathy/bleeding disorders. ONCOLOGIC: Denies personal history of malignancy. DERMATOLOGIC: Denies rashes or pruritus. PSYCHIATRIC: Denies any suicidal or homicidal ideation. Denies hallucinations. PHYSICAL EXAM GENERAL APPEARANCE: The patient is awake, alert, and oriented appears generally weak NEUROLOGICAL: Cranial nerves II-XII grossly intact. Motor is 5/5 in bilateral upper and lower extremities proximal to distal. No sensory deficits. HEENT: Face is symmetric. Pupils are equal and reactive. Extraocular movements are intact. NECK: Supple. No JVD. No thyromegaly. No submental, submandibular, pre- /postauricular, occipital or supraclavicular lymphadenopathy. CHEST: Normal chest expansion. No Telemetry. LUNGS: . Diminished lung sounds to bilateral lung james CARDIOVASCULAR: Regular. S1 and S2 normal. No appreciable rubs, murmurs or gallops. ABDOMEN: Round and firmed There is no rebound, voluntary guarding, or rigidity. : Deferred. No Del Cid. EXTREMITIES: Bilateral lower extremity edema No clubbing. Good capillary refill. SKIN: No skin breakdown. Vital Signs (last 8hr) Date Time Temp Pulse Resp B/P (MAP) Pulse Ox O2 Delivery O2 Flow Rate FiO2 10/03/24 08:00 98.1 84 17 126/76 95 Room Air 0.0 10/03/24 07:55 95 Room Air* 0 21 10/03/24 07:11 82 18 N/A Room Air 10/03/24 04:00 98.1 85 19 115/63 95 Room Air 10/03/24 02:06 75 12 21 LABS: Laboratory: Test 10/03/24 05:36 10/03/24 05:09 10/02/24 05:16 10/01/24 16:04 Range/Units Whole Blood Glucose 224 H 70-110 MG/DL White Blood Count 10.0 4.8-10.8 K/uL Red Blood Count 3.09 L 4.50-6.20 MIL/uL Hemoglobin 9.1 L 14.0-18.0 g/dL Hematocrit 27.4 L 42-54 % Mean Corpuscular Volume 88.7 79-99 fL Mean Corpuscular Hemoglobin 29.4 27.0-33.0 pg Mean Corpuscular Hemoglobin Concent 33.2 32.0-36.0 g/dL Red Cell Distribution Width 14.3 11.0-15.5 % Platelet Count 136 # 130-400 K/uL Mean Platelet Volume 11.6 H 7.5-10.5 fL Immature Granulocyte % (Auto) 3.6 H 0-1 % Neutrophils (%) (Auto) 78.2 H 40.0-77.0 % Lymphocytes (%) (Auto) 6.8 L 21.0-51.0 % Monocytes (%) (Auto) 5.3 3.0-13.0 % Eosinophils (%) (Auto) 5.9 0.0-8.0 % Basophils (%) (Auto) 0.2 0.0-5.0 % Neutrophils # (Auto) 7.8 H 1.8-7.7 K/uL Lymphocytes # (Auto) 0.7 L 1.0-4.8 K/uL Monocytes # (Auto) 0.5 0.1-1.0 K/uL Eosinophils # (Auto) 0.59 0.00-0.70 K/uL Basophils # (Auto) 0.02 0.00-0.20 K/uL Absolute Immature Granulocyte (auto 0.36 0-1 K/uL Nucleated Red Blood Cells 0.2 H 0.0-0.19 % Platelet Morphology PLT CLUMPS PRESENT Prothrombin Time 11.0 9.6-11.6 SEC Prothromb Time International Ratio 0.98 0.85-1.15 Activated Partial Thromboplast Time 26.8 26.3-35.5 SEC Sodium Level 138 136-145 mmol/L Potassium Level 4.1 3.5-5.1 mmol/L Chloride Level 99 L 101-111 mmol/L Carbon Dioxide Level 27 21-32 mmol/L Blood Urea Nitrogen 67 H 7-18 mg/dL Creatinine 8.4 *H 0.5-1.3 mg/dL Glomerular Filtration Rate Calc 7 >90 mL/min Random Glucose 272 H 70-105 mg/dL Hemoglobin A1c 12.0 H 4.0-6.0 % Estimated Average Glucose (eAG) 298 H 70-126 mg/dL Total Calcium 6.1 L 8.5-10.1 mg/dL Total Bilirubin 0.5 0.2-1.0 mg/dL Aspartate Amino Transf (AST/SGOT) 41 H 10-37 U/L Alanine Aminotransferase (ALT/SGPT) 638 #*H 12-78 U/L Alkaline Phosphatase 197 H 50-136 U/L B-Type Natriuretic Peptide 2810 H 0-100 pg/mL Total Protein 5.6 L 6.0-8.3 g/dL Albumin 2.1 L 3.5-5.0 g/dL Triglycerides Level 118 30-200 mg/dL Cholesterol Level 191 <200 mg/dL LDL Cholesterol 134 H 0-99 mg/dL HDL Cholesterol 36 29-71 mg/dL Phosphorus Level 6.5 H 2.5-4.9 mg/dL Blood Gas Specimen Type Arterial Arterial Blood pH 7.416 7.350-7.450 Arterial Blood Partial Pressure CO2 34 L 35-48 mmHg Arterial Blood Partial Pressure O2 65.1 L 83.0-108.0 mmHg Arterial Blood HCO3 21.4 21.0-28.0 mmol/L Arterial Blood Oxygen Saturation 93.3 L 94.0-98.0 % Arterial Blood Base Excess -2.3 L -2.0-3.0 mmol/L Blood Gas Temperature 37.0 35.5-37.0 CELSIUS Blood Gas Vent Mode RA ROOM AIR FiO2 21.0 % Blood Gas Specimen Comment RR RN REYNA Bedside Glucose Comment Stat Lab Glu Request Current Medications Medications (Trade) Dose Ordered Sig/Sierra Route PRN Reason Start Time Stop Time Status Last Admin Dose Admin Acetaminophen (TYLenol 325MG TAB) 650 mg Q4H PRN PO MILD PAIN (1-3) 09/21/24 19:30 10/21/24 19:29 09/30/24 01:32 650 MG Acetaminophen (TYLenol 325MG TAB) 650 mg Q6H PRN PO TEMPERATURE GREATER THAN 101.5 09/21/24 19:30 10/21/24 19:29 Albumin Human 100 ml @ 0 mls/hr AD STAT IV 09/25/24 23:09 09/25/24 23:12 DC 09/25/24 23:17 100 MLS/HR Albuterol (DUOneb) 1 udvial [id number] IH 09/21/24 22:00 09/25/24 09:59 DC 09/25/24 06:43 1 UDVIAL Albuterol (DUOneb) 1 udvial I2IZULT IH 09/25/24 10:00 09/26/24 15:22 DC 09/26/24 11:17 1 UDVIAL Albuterol (DUOneb) 1 udvial [id number] PRN IH WHEEZING 09/26/24 15:30 10/21/24 21:59 Aspirin (Aspirin 81mg Ec Tab) 81 mg DAILY PO 09/22/24 09:00 10/22/24 08:59 10/02/24 09:28 81 MG Atorvastatin Calcium (LIPItor 20MG) 20 mg HS PO 09/23/24 21:00 09/27/24 10:38 DC 09/26/24 20:36 20 MG Atorvastatin Calcium (LIPItor 40MG) 40 mg HS PO 09/22/24 21:00 09/22/24 20:17 DC Atorvastatin Calcium (LIPItor 40MG) 40 mg HS PO 09/30/24 21:00 10/30/24 20:59 10/02/24 20:37 40 MG Azithromycin 250 ml @ 250 mls/hr Q24H IVPB 09/21/24 18:00 09/21/24 18:14 DC Calcium Carbonate (Oyster Shell Ca 500mg Tab) 1,000 mg TID PO 09/30/24 14:00 10/30/24 13:59 10/02/24 20:38 1,000 MG Calcium Gluconate 1 gm/Sodium Chloride 100 ml @ 0 mls/hr PROTOCOL IV 10/01/24 17:00 10/31/24 16:59 Cefazolin Sodium (Ancef) 2 gm ONCALL IVPB 10/02/24 10:30 10/04/24 10:29 Cefepime HCl (MAXipime 1 GM vial) 1 gm Q24H IVPB 09/23/24 08:30 09/26/24 11:14 DC 09/25/24 08:36 1 GM Chlordiazepoxide HCl (LIBrium 25 MG CAP) 25 mg Q2H PRN PO ALCOHOL WITHDRAWAL PROTOCOL 09/22/24 20:30 09/29/24 20:29 DC 09/28/24 23:59 25 MG Chlordiazepoxide HCl (LIBrium 25 MG CAP) 50 mg Q1H PRN PO ALCOHOL WITHDRAWAL PROTOCOL 09/22/24 20:30 09/29/24 20:29 DC Clopidogrel Bisulfate (plaVIX 75MG) 75 mg DAILY PO 09/24/24 09:00 09/26/24 07:14 DC 09/25/24 08:38 75 MG Clopidogrel Bisulfate (plaVIX 75MG) 75 mg DAILY PO 09/30/24 09:00 10/01/24 08:26 DC 09/30/24 08:49 75 MG Dextrose (D50w) 50 ml AD PRN IV HYPOGLYCEMIA PROTOCOL 09/30/24 17:30 10/01/24 08:25 DC Dextrose (D50w) 50 ml AD PRN IV HYPOGLYCEMIA PROTOCOL 10/01/24 08:30 10/31/24 08:29 Dextrose/Sodium Chloride 1,000 ml @ 0 mls/hr AD IV 09/22/24 00:00 09/23/24 21:23 DC 09/22/24 09:49 150 MLS/HR Doxycycline Hyclate (Doxycycline Hyclate) 100 mg BID PO 09/21/24 21:00 09/30/24 23:59 DC 09/30/24 20:53 100 MG Epoetin Moses-epbx (Retacrit) 10,000 unit QMOWEFR SQ 10/01/24 09:00 10/31/24 08:59 10/01/24 15:34 10,000 UNIT Famotidine (Pepcid 20mg Vial) 10 mg DAILY IV 09/22/24 09:00 09/27/24 10:35 DC 09/27/24 09:09 10 MG Famotidine (Pepcid 20mg Tab) 10 mg Q48H PO 09/21/24 19:30 09/21/24 20:00 DC Ferrous Sulfate (Ferrous Sulfate) 325 mg DAILY PO 09/23/24 09:00 10/23/24 08:59 10/02/24 09:30 325 MG Fish Oil (Fish Oil 1000 Mg/Cap) 2,000 mg BID PO 09/22/24 21:00 10/22/24 20:59 10/02/24 20:38 2,000 MG Fluconazole/ Sodium Chloride (DiFLUCan 200 MG/ NS 100 ML) 200 mg Q24H IV 09/25/24 16:00 09/27/24 10:36 DC 09/26/24 14:38 200 MG Furosemide (LASix 40MG VIAL) 80 mg Q12H IV 09/22/24 21:00 09/26/24 15:22 DC 09/26/24 13:20 80 MG Gabapentin (NEURontin 100 mg CAP) 100 mg DAILY PO 10/01/24 09:00 10/24/24 20:59 10/02/24 09:28 100 MG Gabapentin (NEURontin 100 mg CAP) 100 mg TID PO 09/24/24 21:00 09/30/24 17:37 DC 09/30/24 14:07 100 MG Glucagon (Glucagon 1mg Kit) 1 mg AD PRN IM HYPOGLYCEMIA PROTOCOL 09/30/24 17:30 10/01/24 08:25 DC Glucagon (Glucagon 1mg Kit) 1 mg AD PRN IM HYPOGLYCEMIA PROTOCOL 10/01/24 08:30 10/31/24 08:29 Guaifenesin/ Dextromethorphan (RobiTUSSin DM 200/20MG 10ML) 10 ml Q4H PRN PO COUGH 09/21/24 19:30 10/21/24 19:29 09/23/24 22:06 10 ML Heparin Sodium (Porcine) (HEParin 5,000 UNIT VIAL) *calculation based on ACTUAL B... AD PRN IV HEPARIN PROTOCOL 09/21/24 19:30 09/26/24 07:14 DC Heparin Sodium (Porcine) (HEParin 5,000 UNIT VIAL) 10,000 unit AD IRRIG 09/27/24 14:00 10/27/24 13:59 10/01/24 17:18 10,000 UNIT Heparin Sodium/ Dextrose 250 ml @ 0 mls/hr Q6H IV 09/21/24 19:30 09/26/24 18:36 DC 09/25/24 04:13 14.7 MLS/HR Hydralazine HCl (APRESOLine 20MG INJ) 10 mg Q6H PRN IV ADMINISTER FOR SBP > 160 10/01/24 16:30 10/31/24 16:29 Insulin Glargine (LANtus 100 UNITS/ML 10 ML VIAL) 10 units BID@0730,2100 SQ 09/22/24 21:00 09/26/24 11:15 DC 09/25/24 20:44 10 UNITS Insulin Glargine (LANtus 100 UNITS/ML 10 ML VIAL) 10 units HS SQ 09/30/24 21:00 09/30/24 17:26 DC Insulin Glargine (LANtus 100 UNITS/ML 10 ML VIAL) 15 units BID@0730,2100 SQ 09/26/24 21:00 09/30/24 17:13 DC 09/30/24 07:03 15 UNITS Insulin Glargine (LANtus 100 UNITS/ML 10 ML VIAL) 20 units AM SQ 10/01/24 09:00 09/30/24 17:26 DC Insulin Glargine (LANtus 100 UNITS/ML 10 ML VIAL) 30 units HS SQ 09/30/24 21:00 10/02/24 07:19 DC 10/01/24 19:54 30 UNITS Insulin Glargine (LANtus 100 UNITS/ML 10 ML VIAL) 50 units BID SQ 10/02/24 21:00 10/30/24 20:59 10/03/24 09:02 50 UNITS Insulin Glargine (LANtus 100 UNITS/ML 10 ML VIAL) 50 units DAILY SQ 10/02/24 07:30 10/02/24 16:53 DC 10/02/24 09:41 50 UNITS Insulin Human Lispro (HumaLOG LISpro 100 UNIT/ML 3ML) 7 unit TIDAC SQ 10/01/24 07:30 10/01/24 17:01 DC 10/01/24 16:22 7 UNIT Insulin Human Lispro (HumaLOG LISpro 100 UNIT/ML 3ML) 10 unit TIDAC SQ 10/01/24 17:00 10/01/24 19:41 DC Insulin Human Lispro (HumaLOG LISpro 100 UNIT/ML 3ML) 15 unit TIDAC SQ 10/02/24 07:30 10/02/24 07:20 DC 10/02/24 07:01 15 UNIT Insulin Human Lispro (HumaLOG LISpro 100 UNIT/ML 3ML) 20 unit TIDAC SQ 10/02/24 11:30 10/02/24 16:53 DC 10/02/24 11:48 20 UNIT Insulin Human Lispro (HumaLOG LISpro 100 UNIT/ML 3ML) 25 unit TIDAC SQ 10/02/24 17:00 11/01/24 16:59 10/02/24 17:17 25 UNIT Insulin Human Regular (humuLIN R 100 UNIT/ML 3ML) INSULIN SLIDING SCAL... ACHS SQ 09/24/24 07:30 10/24/24 07:29 10/03/24 05:48 10 UNIT Insulin Human Regular 100 unit/ Sodium Chloride 101 ml @ 0 mls/hr PROTOCOL IV 09/21/24 20:00 09/23/24 21:20 DC 09/21/24 21:01 9.8 MLS/HR Insulin Human Regular 100 unit/ Sodium Chloride 101 ml @ 0 mls/hr PROTOCOL IV 09/22/24 00:00 09/22/24 00:03 DC Insulin Human Regular 100 unit/ Sodium Chloride 101 ml @ 0 mls/hr PROTOCOL IV 09/26/24 18:30 09/27/24 10:25 DC 09/26/24 18:36 10 MLS/HR Magnesium Sulfate 50 ml @ 0 mls/hr PROTOCOL IV 09/22/24 00:00 09/23/24 21:23 DC Magnesium Sulfate 50 ml @ 0 mls/hr PROTOCOL IV 09/26/24 18:30 09/27/24 10:25 DC Magnesium Sulfate 50 ml @ 0 mls/hr PROTOCOL PRN IV OTH 09/22/24 00:00 09/22/24 00:04 DC 09/21/24 23:52 25 MLS/HR Mannitol 245 ml @ 0 mls/hr AD IV 09/22/24 00:30 09/22/24 20:17 DC Mannitol 500 ml @ 0 mls/hr AD IV 09/22/24 00:30 09/22/24 14:33 DC Mannitol (Osmitrol 20% 250ml Bag) 49 gm AD IV 09/22/24 00:00 09/22/24 00:28 DC Methylprednisolone Sodium Succinate (Solu-medROL 40MG) 40 mg BID IVP 09/22/24 09:00 09/27/24 10:35 DC 09/26/24 20:37 40 MG Metoprolol Succinate (TopROL XL) 25 mg BID PO 09/26/24 09:00 10/26/24 08:59 10/03/24 08:55 25 MG Metoprolol Succinate (TopROL XL) 50 mg BID PO 09/24/24 21:00 09/26/24 07:14 DC 09/24/24 19:45 50 MG Metoprolol Tartrate (loprESSOR) 12.5 mg BID PO 09/22/24 21:00 09/24/24 16:38 DC 09/24/24 12:07 12.5 MG Miscellaneous Medication (Folic Acid/ Vitamin B Comp W-C (Ila-[place] Tablet)) 1 tab DAILY PO 09/23/24 09:00 09/22/24 15:56 DC Morphine Sulfate (morPHINE 2MG SYG) 2 mg Q4H PRN IVP SEVERE PAIN (7-10) 09/26/24 01:30 10/01/24 04:29 DC Multivitamins Therapeutic (Multivitamin Tablet) 1 tab DAILY PO 09/23/24 09:00 10/23/24 08:59 10/02/24 09:28 1 TAB Nifedipine (adALAT 30MG) 60 mg DAILY PO 09/23/24 09:00 09/28/24 12:01 DC 09/25/24 08:37 60 MG Nitroglycerin (Nitroglycerin 1gm Oint) 0.5 inch Q8H TD 09/21/24 19:30 09/27/24 10:34 DC 09/25/24 12:44 0.5 INCH Norepinephrine 250 ml @ 0 mls/hr AD PRN IV DIRECTED 09/26/24 01:30 09/27/24 10:34 DC 09/26/24 01:40 0 MLS/HR Ondansetron HCl (zoFRAN 4MG INJ) 4 mg Q6H PRN IVP NAUSEA/VOMITING 09/26/24 01:30 10/26/24 01:29 09/27/24 08:51 4 MG Oseltamivir Phosphate (Tamiflu) 75 mg DAILY PO 09/22/24 09:00 09/23/24 13:29 DC 09/23/24 08:38 75 MG Oseltamivir Phosphate (Tamiflu) 75 mg Q24H PO 09/26/24 17:00 09/27/24 17:01 DC 09/27/24 18:04 75 MG Oseltamivir Phosphate (Tamiflu) 75 mg QTUTHSA[DIALYSIS] PO 09/23/24 16:00 09/23/24 17:04 DC Oseltamivir Phosphate (Tamiflu) 75 mg QTUTHSA[DIALYSIS] PO 09/23/24 22:00 09/26/24 16:32 DC 09/25/24 16:09 75 MG Pantoprazole Sodium (PROTonix 40MG INJ) 40 mg BID IVP 09/27/24 21:00 10/27/24 20:59 10/03/24 08:55 40 MG Pharmacy Profile Note (Pharmacy Communication) 1 each ONCE MISC 09/23/24 13:00 09/23/24 13:25 DC Pharmacy Profile Note (Pharmacy Communication) 1 each ONCE MISC 09/23/24 21:30 09/24/24 07:08 DC Pharmacy Profile Note (Pharmacy Communication) 1 each PROTOCOL PRN MISC ETOH Withdrawal Score changes 09/22/24 20:30 09/29/24 20:29 DC Piperacillin Sod/ Tazobactam Sod 50 ml @ 12.5 mls/hr Q12H IV 09/21/24 21:00 09/23/24 08:06 DC 09/22/24 20:43 12.5 MLS/HR Piperacillin Sod/ Tazobactam Sod (Zosyn 3.375gm+NS 50ml) 3.375 gm Q12H IV 09/26/24 11:30 10/06/24 11:29 10/02/24 22:59 3.375 GM Potassium Chloride 20 meq/ Sodium Chloride 1,010 ml @ 0 mls/hr PROTOCOL IV 09/22/24 00:00 09/23/24 21:23 DC Potassium Chloride/Dextrose/ Sod Cl 1,000 ml @ 0 mls/hr AD IV 09/22/24 00:00 09/23/24 21:23 DC Prednisone (deltaSONE/ oraSONE 20MG TAB) 20 mg DAILY PO 09/28/24 09:00 10/01/24 08:59 DC 09/30/24 08:50 20 MG Sodium Bicarbonate (Sodium Bicarbonate) 650 mg TID PO 09/24/24 09:00 09/27/24 10:34 DC 09/26/24 20:36 650 MG Sodium Chloride 250 ml @ 0 mls/hr Q0M IV 09/25/24 23:00 09/27/24 10:34 DC Sodium Chloride 1,000 ml @ 0 mls/hr ONCE IV 09/23/24 19:30 09/27/24 13:51 DC 09/26/24 12:15 1,000 MLS/HR Sodium Chloride 1,000 ml @ 0 mls/hr ONCE IV 09/27/24 14:30 09/27/24 13:51 DC Sodium Chloride 1,000 ml @ 0 mls/hr ONCE IV 09/27/24 15:00 10/27/24 14:59 09/29/24 16:53 1,000 MLS/HR Sodium Chloride 1,000 ml @ 100 mls/hr Q10H IV 09/21/24 19:30 09/27/24 10:34 DC 09/23/24 12:53 100 MLS/HR Sodium Chloride 1,000 ml @ 200 mls/hr PROTOCOL IV 09/22/24 00:00 09/23/24 21:23 DC Thiamine HCl 100 mg/Folic Acid 1 mg/Multivitamins/ Minerals 10 ml/ Sodium Chloride 1,011.2 ml @ 100 mls/ hr Q24H IV 09/22/24 20:30 09/25/24 06:37 DC 09/22/24 20:43 100 MLS/HR Vancomycin HCl 250 ml @ 125 mls/hr Q72H IV 09/22/24 20:30 09/23/24 08:04 DC 09/22/24 20:48 125 MLS/HR Vancomycin HCl (Vancomycin 500mg+NS 100ml Ivpb) 1,000 mg DAILY08 IV 09/23/24 08:00 09/22/24 20:26 DC Vancomycin HCl (Vancomycin 750mg) 750 mg MWFPHD IVPB 09/26/24 16:00 10/03/24 23:29 Hold Vancomycin HCl (Vancomycin 750mg) 750 mg Q24H IVPB 09/23/24 23:30 09/25/24 06:26 DC 09/24/24 22:43 750 MG Vitamin B Complex/ Vit C/Folic Acid (Nephrovite Tablet) 1 cap DAILY PO 09/23/24 09:00 10/23/24 08:59 10/02/24 09:28 1 CAP DIAGNOSTICS / RADIOLOGY: PATIENT: ADRIANA ABRAHAM MR#: [id number] : 1975 SEX: M AGE: 49 LOCATION: [facility] ORDER 2300 STATUS: ADM IN REPORT#: [id number] SERVICE 0600 REASON: preop CABG ORDERING PHYSICIAN: CANDIDA SZYMANSKI MD PROCEDURE: CXR1VW - CHEST 1VW Exam Type: CHEST 1VW Clinical Information: preop CABG Comparison: None Findings: Right permacath line is noted with tip at the distal superior vena caval level. The lungs are clear of infiltrates. The heart is normal in size. The bony and soft tissue structures of the chest are unremarkable. Impression: Clear lungs. ASSESSMENT: Hyperosmolar Hyperglycemic Syndrome POA NSTEMI POA Influenza bronchopneumonia with sepsis POA Acute Hypoxemic Respiratory Failure POA Acute on chronic renal failure with concern for ATN POA Metabolic acidosis POA Lactic acidosis POA CKD stage 4 POA Uncontrolled Diabetes POA Protein Calorie malnutrition POA PLAN: CABG by Dr. Szymanski Hemodialysis as per nephrology recommendations Iron profile and APR labs Procalcitonin and LA Continue broad-spectrum antibiotics Continue to trend WBC in Continue to replace electrolytes IV protocol Continue the patient on long-acting as well as insulin sliding scale Follow a.m. labs GI and DVT prophylaxis Disposition: Pending improvement in clinical condition ATTESTATION BY PHYSICIAN I have seen and examined the patient. I reviewed the documentation, medical decision making, and treatment plan as noted by the resident provider above. I agree with the findings and plan of care. Dieudonne Farley MD, NIHITHA MD Oct 03, 2024 09:24
[2024-10-03] MEDS ORDERED: aminoCAProic ACID 5,000MG VIAL 15,000 MG in 0.9% NACL 500ML IV.SOLN 420 ML IV PRN (10:00)
[2024-10-03] MEDS ORDERED: NOREPINEPHRIN 8MG/250ML NS 250 ML IV PRN (10:00)
--- NOTE | 2024-10-03 11:00 | NUR ---
To CABG today.
[2024-10-03] MEDS ORDERED: LIDOCAINE 2G/250ML 250 ML IV ONE (11:16)
[2024-10-03] MEDS ORDERED: NITROGLYCERIN 50MG/D5W 250ML 1 BOT ONE (11:16)
--- NOTE | 2024-10-03 11:16 | PN ---
[facility] PROGRESS NOTE Date Patient Seen: Oct 03, 2024 Time of Visit: 11:16 Supervising Physician: [Dr. Price] Primary Care Physician: Gama Acosta Outpatient Specialists: [ ] Inpatient Consults: Cardiology, nephrology and critical care team PROBLEM LIST: Septic shock, not POA, resolved Acute Hypoxemic Respiratory Failure, POA, resolved Acute on chronic CHF with reduced EF of 35 40% Nstemi, POA, pending CABG Community acquired influenza A viral pneumoniae w/ superimposed Bilateral bacterial Pneumonia, POA, Sepsis Due To Bilateral Pneumonia And Influenza A Infection, POA Severe transaminitis 2/2 shocked liver not POA ESRD with new onset hemodialysis this admission s/p Rt permacath Recurrent Dka w/ reopening of AGAP and ketones, resolved Acute Metabolic Acidosis 2/2 DkA and SAURABH , POA, improved Hyperkalemia In The Context Of Chronic Kidney Injury, Poa Morbid Obesity BMI 40.5 INTERVAL HISTORY: 09/22/2024: At the time my evaluation, the patient was in the emergency department awaiting bed assignment. The staff nurse reports no acute events overnight. The patient was on a Oxymizer with optimal SpO2. He was normotensive without the need for pressor therapy. There was no complaint of chest pain. There was no abdominal pain, nausea vomiting or diarrhea. The patient continued on a insulin drip per the DKA protocol. He was started on antibiotic and antiviral therapy for management of his condition. Review of labs today showed no major concern on CBC. Chemistry panel did show a sodium of 135, chloride of 100 and a CO2 of 20 with a anion gap of 15. Blood glucose remains elevated in the 300s. No new complaint. 09/23- saw patient and ED 13 awake alert and oriented x3. 2D echo at bedside being performed. Patient has been afebrile heart rate of 110, blood pressure 116/63 with respiratory rate of 20 saturating 97% with 7 L via nasal cannula oximizer. Urine output 1.4 L in the last 24 hours. On laboratory WBCs are 11.4 H&H trending down 7.6/23.1 with a platelet count that is 178 K. on chemistry sodium 136 potassium of 3.7 chloride 100 carbon dioxide of 19 BUN 106. Creatinine of 8.6 and GFR of 7. Per Dr Armenta pt scheduled for a Mitesh hemodialysis catheter per IR today. Pt continues with Tamiflu, Doxy, Cefepime and MRSA coverage will be added w/ vanco due to suspected MRSA superimposed pn eumonia on Influenza pneumonia. On CT chest, abdomen and pelvis shows Acute appearing infiltrates in both lung bases consistent with pneumoniae. No acute finding in the abdomen or pelvis. Del Cid catheter in good position in the urinary bladder. We will continue to follow Neprhology recommendations. 09/24 patient was seen and examined at bedside with primary nurse present. Coral ent to receive1 unit PRBCs hemoglobin this a.m. 6.8. Continue to monitor closely. Patient to continue on IV antibiotics. Patient's troponin levels trending down. We will continue to follow recommendations of Cardiology. Patient remains hypoxic requiring supplemental oxygen via nasal cannula at L. Patient states does not use home oxygen. Patient is to continue on heparin drip. Patient to continue on IV steroids. Patient's echocardiogram revealed EF of 35-40%. Patient's blood cultures have been negative x2 days. Patient remains high risk for decompensation. 09/25 patient was seen and examined at bedside with mother present. At time of visit patient is currently on room air has been weaned off oxygen. Yesterday patient was on 5 L. As per patient is tolerating room air well. Patient denies any chest pain or shortness of breadth, however does report shortness of breath upon minimal exertion. Patient remains on heparin drip. Patient is still currently pending coronary CT to be completed, further recommendations by Cardiology to follow once examined has been completed. Patient to continue on hemodialysis per Nephrology's recommendations. 09/26/24-patient is awake alert and oriented x3. He requires Levophed at 0 point 4 micrograms/kilogram per minute for blood pressure support. He was brought into the ICU overnight due to hypotension and elevated liver enzymes. Current blood pressure of 129/74 heart rate in the 80s respiratory rate of 19 saturating 100% with 7 L via Oxymizer and afebrile. As per RN she is weaning Levophed. Urine output was 100 mL in the last 24 hours he received hemodialysis today with 3.6 L out and had one bowel movement. WBCs spiked up this morning from 17.6224.2 H&H 8.6/25.4 and platelet count is normal 291 K. neutrophils 79.5. Suspect patient aspirated in the episode of hypotension due to increased pulmonary infiltrates to right side and spike in white count and temperature. Patient was panculture and cefepime changed to Zosyn to cover for aspiration pneumonia. On chest x-ray patient with a extensive bilateral infiltrates unchanged. No pneumothorax. Chemistries sodium of 130 potassium is 6.2 ch loride of 90 carbon dioxide of 17 with a BUN of 119 and creatinine 9.6 and GFR of six liver enzymes raised AST of 6752 ALT of 4302, alkaline phosphatase of 233 likely from shock liver procalcitonin elevated at 24.31 decreased from admission wishes 70. On repeat BNP patient has a sodium of 134 potassium of 3.5 chloride of 91 carbon dioxide 26 with a anion gap of 17 and ketones of 1.4 we will need to restart insulin drip per DKA protocol. 09/27/24-pt is awake alert and oriented x 3. He is hemodynamically stable and off pressors. He denies any chill, chest pain or increased sob at rest. He does report sob on exertion and reports poor appetite. He is due for HD treatment today. Per RN no major overnight events and he has been afebrile. WBC's are trending down now 20.4, H&H is 8.9/26.3 and platelet count is 220 K. chemistry patient had a sodium of 134 potassium is normal 4.6 chloride of 92 carbon dioxide 24, AGAP has closed, liver enzymes severely elevated consistent with shocked lover but we will order us of abdomen to assess Liver and Gallbladder. Ketones of 0.2. We have discontinued DKA protocol and pt ,may be downgraded from ICU today. 2/ patient was seen and examined at bedside with family present. Patient is awake alert able to answer simple questions appropriately. Patient is on room air appears to be tolerating well. Patient has remained hemodynamically stable. Patient denies any chest pain or shortness of breadth. Denies any nausea vomiting or abdominal pain. Most per primary nurse no acute events to be reported. We will continue to follow recommendations from Nephrology and Cardiology appreciate assistance. We will continue to monitor patient closely 2/ patient was seen and examined at bedside with family present. Patient remains on room air tolerating well. Patient is scheduled for coronary CT today we will follow recommendations from Cardiology. Patient to continue on hemodialysis per Nephrology's recommendations. Patient's WBCs trending down today 18.6 yesterday 22.0. Patient to continue on IV antibiotics. We will continue to monitor patient closely. 09/[address] coronary angiogram which revealed 90% stenosis of the LAD as well as 90% stenosis of the left circumflex. Per bedside nurse, patient was offered stent placement, however refused and is wanting to pursue this as an outpatient. Patient's blood sugar remains elevated in for 0s, we will adjust insulin as indicated. Pro mallory significantly decreased from 70 down to 6. Blood and urine cultures remain negative, sputum cultures growing Dunia. His liver enzymes remain elevated but significantly downtrended. Patient is pending AV fistula for hemodialysis, however [facility]TS is deferring this as an outpatient in order to prioritize his CAD management. 10/01 Patient had abnormal LHC and is referred for CABG. His abdominal U/S was negative for gallstones or ductal dilation. Carotid doppler WNL. CXR consistent with pulmonary venous congestion. Continues on dialysis with temp cath per nephrology, pending AV graft by CTS. Blood sugar is persistently elevated, insulin adjusted per primary. 10/02 Patient is evaluated at bedside. Continues with dialysis as scheduled. Patient had endocrinology consult with the adjustment in his insulin regimen. Patient is pending CABG in a.m. He denies any chest pain. 10/03 Patient is evaluated at bedside. Insulin dosing adjusted per endocrinology with improvement in glucose readings. Continues with dialysis as scheduled. Pending CABG today, no current complaints. REVIEW OF SYSTEMS: 12 point ROS reviewed with patient. Pertinent positives mentioned above. Otherwise negative. PHYSICAL EXAM: GENERAL: alert, weak, awake oriented x 3 HEENT: EOMI, Sclera non icteric, moist mucosa NECK: Supple, no JVD, trachea midline LUNGS: coarse rhonchi breath sounds bilaterally. No wheezes HEART: Regular rate and rhythm. Normal S1 and S2, without murmurs ABD: Abdomen soft, nontender. Bowel sounds present EXT: No clubbing cyanosis or edema NEURO: Alert and oriented to person, follows commands Vital Signs (last 8hr) Date Time Temp Pulse Resp B/P (MAP) Pulse Ox O2 Delivery O2 Flow Rate FiO2 10/03/24 08:00 98.1 84 17 126/76 95 Room Air 0.0 10/03/24 07:55 95 Room Air* 0 21 10/03/24 07:11 82 18 N/A Room Air 10/03/24 04:00 98.1 85 19 115/63 95 Room Air LABS: Hematology Labs: Test 10/03/24 05:09 Range/Units White Blood Count 10.0 4.8-10.8 K/uL Red Blood Count 3.09 L 4.50-6.20 MIL/uL Hemoglobin 9.1 L 14.0-18.0 g/dL Hematocrit 27.4 L 42-54 % Mean Corpuscular Volume 88.7 79-99 fL Mean Corpuscular Hemoglobin 29.4 27.0-33.0 pg Mean Corpuscular Hemoglobin Concent 33.2 32.0-36.0 g/dL Red Cell Distribution Width 14.3 11.0-15.5 % Platelet Count 136 # 130-400 K/uL Mean Platelet Volume 11.6 H 7.5-10.5 fL Immature Granulocyte % (Auto) 3.6 H 0-1 % Neutrophils (%) (Auto) 78.2 H 40.0-77.0 % Lymphocytes (%) (Auto) 6.8 L 21.0-51.0 % Monocytes (%) (Auto) 5.3 3.0-13.0 % Eosinophils (%) (Auto) 5.9 0.0-8.0 % Basophils (%) (Auto) 0.2 0.0-5.0 % Neutrophils # (Auto) 7.8 H 1.8-7.7 K/uL Lymphocytes # (Auto) 0.7 L 1.0-4.8 K/uL Monocytes # (Auto) 0.5 0.1-1.0 K/uL Eosinophils # (Auto) 0.59 0.00-0.70 K/uL Basophils # (Auto) 0.02 0.00-0.20 K/uL Absolute Immature Granulocyte (auto 0.36 0-1 K/uL Nucleated Red Blood Cells 0.2 H 0.0-0.19 % Platelet Morphology PLT CLUMPS PRESENT Chemistry Labs: Test 10/03/24 10:24 10/03/24 05:09 10/02/24 05:16 10/01/24 16:04 Range/Units Whole Blood Glucose 98 # 70-110 MG/DL Sodium Level 138 136-145 mmol/L Potassium Level 4.1 3.5-5.1 mmol/L Chloride Level 99 L 101-111 mmol/L Carbon Dioxide Level 27 21-32 mmol/L Blood Urea Nitrogen 67 H 7-18 mg/dL Creatinine 8.4 *H 0.5-1.3 mg/dL Glomerular Filtration Rate Calc 7 >90 mL/min Random Glucose 272 H 70-105 mg/dL Hemoglobin A1c 12.0 H 4.0-6.0 % Estimated Average Glucose (eAG) 298 H 70-126 mg/dL Total Calcium 6.1 L 8.5-10.1 mg/dL Total Bilirubin 0.5 0.2-1.0 mg/dL Aspartate Amino Transf (AST/SGOT) 41 H 10-37 U/L Alanine Aminotransferase (ALT/SGPT) 638 #*H 12-78 U/L Alkaline Phosphatase 197 H 50-136 U/L B-Type Natriuretic Peptide 2810 H 0-100 pg/mL Total Protein 5.6 L 6.0-8.3 g/dL Albumin 2.1 L 3.5-5.0 g/dL Triglycerides Level 118 30-200 mg/dL Cholesterol Level 191 <200 mg/dL LDL Cholesterol 134 H 0-99 mg/dL HDL Cholesterol 36 29-71 mg/dL Phosphorus Level 6.5 H 2.5-4.9 mg/dL Bedside Glucose Comment Stat Lab Glu Request Coagulation Labs: Test 10/03/24 05:09 Range/Units Prothrombin Time 11.0 9.6-11.6 SEC Prothromb Time International Ratio 0.98 0.85-1.15 Activated Partial Thromboplast Time 26.8 26.3-35.5 SEC DIAGNOSTICS / RADIOLOGY RESULTS: [ ] PLAN CAD management per cardiology Optimize glycemic control Optimize pulmonary function for CABG CPAP at night AVF for dialysis upon discharge Continue IV antibiotics Repeat labs in a.m. Rest of the care per primary team NEURO: Minimize central acting medications as possible. Maintain fall precautions, adequate lighting during the day PULMONARY: Supplemental 02 as needed. Maintain aspiration precautions at all times CARDIOVASCULAR: Follow hemodynamics. Vital signs per facility protocol GI & NUTRITION: Continue with nutritional support. Continue stool softeners and laxatives as needed. KIDNEYS & ELECTROLYTES: Strict monitoring of intake, output and overall fluid balance. Avoid nephrotoxic medications to the extent possible. Medications to be dosed according to renal function. Monitor electrolytes and replace as needed ENDOCRINE: Maintain blood glucose between 100-180 at all times. Hypoglycemia protocol in place INFECTIOUS DISEASE: Trend temperature, WBC and procalcitonin level Follow cultures, deescalate antibiotics as soon as possible. Panculture if new onset fever ONCOLOGY/HEMATOLOGY/COAGULATION: Monitor for s/s of bleeding Monitor hemoglobin, coagulation studies as needed SKIN: Pressure ulcer prevention per facility protocol Specialty mattress ORTHO/REHAB: Continue PT/OT Prophylaxis: Continue GI and DVT prophylaxis Code Status: Full Resuscitation Disposition: TBD Other: Case discussed with supervising physician plan of care agreed upon MARIELOS VALLEJO Oct 03, 2024 11:16
--- NOTE | 2024-10-03 11:30 | NUR ---
OFF UNIT TO OR. TELEPACK REMOVED AND NOTIFIED TELEMONITOR TECH
--- NOTE | 2024-10-03 11:35 | NUR ---
DR. SIMONS (ANESTHESIOLOGIST) MADE AWARE OF BLOOD SUGAR OF 63. ORDER RECEIVED TO ADMINISTER 1 AMP OF D50. ORDERS TO BE CARRIED OUT APPROPRIATELY.
[2024-10-03] MEDS: DEXTROSE 50%-WATER 50 ML DISP.SYRIN IV ONE (11:44)
--- NOTE | 2024-10-03 11:50 | NUR ---
GRACIA GARBER, MACHINE SILK SCREEN PRINTER MADE AWARE PATIENT HAS NO FUNCTIONING IV, UNABLE TO INSERT NEW LINE AFTER MULTIPLE ATTEMPTS. MACHINE SILK SCREEN PRINTER AT BEDSIDE WITH ULTRASOUND TO INSERT IV.
[2024-10-03] MEDS: ceFAZolin SODIUM 2 GM VIAL ONE (12:52)
[2024-10-03] MEDS ORDERED: PROTamine SULFate 10 MG/ML 25ML VIAL IV ONE (12:54)
[2024-10-03] MEDS ORDERED: FENTanyl CITRate PF 50 MCG/1 ML 20ML VIAL IJ ONE (12:55)
[2024-10-03] MEDS ORDERED: LIDOCAINE PF 100MG/5ML (2%) SYRINGE 5ML ONE ×2 (12:55→14:30)
[2024-10-03] MEDS ORDERED: SODIUM BICARB 50MEQ 50ML VIAL 200 ML ONE (12:55)
[2024-10-03] MEDS ORDERED: HEParin 10,000 UNIT/10ML (1,000 UNIT/ML) VIAL ONE ×2 (12:55→14:28)
[2024-10-03] MEDS ORDERED: EPINEPHrine PF 1MG (1:1,000) 1 MG/ML AMP ONE (12:55)
[2024-10-03] MEDS ORDERED: proPOFol 10 MG/ML 20ML VIAL IV ONE (12:55)
[2024-10-03] MEDS ORDERED: NOREPINEPHRINE BITARTRATE 1 MG/1 ML ML IV ONE (12:55)
[2024-10-03] MEDS ORDERED: MIDAZOLAM HCL 1 MG/ML 2ML VIAL ONE (12:55)
[2024-10-03] MEDS ORDERED: rocuRONium bROMide 10MG/1ML 5ML VL ONE (12:56)
[2024-10-03] MEDS ORDERED: ETOMIDATE 20MG VIAL ONE (12:59)
[2024-10-03] MEDS ORDERED: acetaMINOPHEN 325 MG TAB PO PRN (13:00)
[2024-10-03] MEDS ORDERED: acetaMINOPHEN 650 MG SUPPOSITORY RC PRN (13:00)
[2024-10-03] MEDS ORDERED: traMADol HCL 50 MG TABLET PO PRN (13:00)
[2024-10-03] MEDS ORDERED: NITROGLYCERIN 50MG/D5W 250ML 250 BOT IV SCH (13:00)
[2024-10-03] MEDS ORDERED: DEXTROSE 50%-WATER 50 ML DISP.SYRIN IV PRN (13:00)
[2024-10-03] MEDS ORDERED: poTASSium PHOS 15 mMOL+NS250ML 250 ML IV PRN (13:00)
[2024-10-03] MEDS ORDERED: morPHINE 2 MG SYG IV PRN (13:00)
[2024-10-03] MEDS ORDERED: aminoCAProic ACID 5,000MG VIAL 15,000 MG in 0.9% NACL 250ML 250 ML IV SCH (13:00)
[2024-10-03] MEDS ORDERED: MAGNESIUM HYDROXIDE 30 ML/UDCUP PO PRN (13:00)
[2024-10-03] MEDS ORDERED: PoTASSium chloRIDE 20MEQ/100ML 100 ML IV PRN (13:00)
[2024-10-03] MEDS ORDERED: 0.9% NACL 500ML IV.SOLN 500 ML IV SCH (13:00)
[2024-10-03] MEDS ORDERED: EPINEPHrine PF 1MG (1:1,000) 10 MG in 0.9% NACL 250ML 240 ML IV PRN (13:00)
[2024-10-03] MEDS ORDERED: 0.9%NACL 10ML VIAL IVP PRN (13:00)
[2024-10-03] MEDS: 0.9%NACL 1000ML 1,000 ML IV SCH (13:00)
[2024-10-03] MEDS ORDERED: GLUCAGON 1MG KIT 1 MG ML IM PRN (13:00)
[2024-10-03] MEDS ORDERED: LACTULOSE 20 GM/30 ML UDCUP PO PRN (13:00)
[2024-10-03] MEDS ORDERED: NOREPINEPHRINE BITARTRATE 8 MG in DEXTROSE 5%-WATER 250 ML IV PRN (13:00)
[2024-10-03] MEDS ORDERED: proPOFol 1000 MG/100 ML 100 ML IV PRN (13:00)
[2024-10-03] MEDS ORDERED: dexmedeTOMIDine 400MCG/NS100ML IV SCH (13:00)
[2024-10-03] MEDS: ceFAZolin SODIUM 3 GM VIAL IVPB ONE (13:15)
--- NOTE | 2024-10-03 13:22 | NUR ---
REPORT GIVEN TO CHELSY DASH IN ICU
[2024-10-03 13:39] LABS: ABG BASE EXCESS -2.6 mmol/L (-2.0-3.0); ABG HCO3 22.9 mmol/L (21.0-28.0); ABG OXYGEN SATURATION 99.5 % (94.0-98.0); ABG PCO2 43 mmHg (35-48); ABG PH 7.347 (7.350-7.450); CARBON MONOXIDE 0.3 % (0.5-1.5); DEVICE COMMENT 1; HHb 0.5; PO2, ARTERIAL BG 399.5 mmHg (83.0-108.0)
[2024-10-03] MEDS ORDERED: AMIOdarone 150MG VIAL ONE (13:45)
[2024-10-03 14:20] LABS: ABG BASE EXCESS 0.6 mmol/L (-2.0-3.0); ABG HCO3 23.4 mmol/L (21.0-28.0); ABG OXYGEN SATURATION 99.5 % (94.0-98.0); ABG PCO2 31 mmHg (35-48); ABG PH 7.496 (7.350-7.450); CARBON MONOXIDE 0 % (0.5-1.5); DEVICE COMMENT 2; HHb 0.5; PO2, ARTERIAL BG 350.6 mmHg (83.0-108.0)
[2024-10-03] MEDS ORDERED: VASOpressin 20 UNITS/ML 1ML VIAL ONE (14:39)
[2024-10-03 14:55] LABS: ABG BASE EXCESS 1.4 mmol/L (-2.0-3.0); ABG OXYGEN SATURATION 99.5 % (94.0-98.0); ABG PCO2 30 mmHg (35-48); ABG PH 7.519 (7.350-7.450); CARBON MONOXIDE 0.3 % (0.5-1.5); DEVICE COMMENT 2; HHb 0.5; PO2, ARTERIAL BG 406.9 mmHg (83.0-108.0)
[2024-10-03] MEDS ORDERED: ALBUMIN (HUMAN) 5% 500 ML IV ONE (15:20)
--- NOTE | 2024-10-03 15:21 | PN ---
NEPHROLOGY PROGRESS NOTE Date/Time Patient Seen: Oct 03, 2024 Reason for Consultation: 15:18 SUBJECTIVE: This is a 49-year-old male with past medical history of CKD, diabetes, hypertension, hyperlipidemia and obesity He presents to the ED for complaints of cough and chest congestion Patient reports coughing up pinkish colored thick phlegm, loss of appetite and on Sunday Positive for influenza A, Chest x-ray result revealed extensive bilateral mid to lower lung pneumonia right greater than left. Coronary CTA that showed severe stenosis ( Prox-mid LAD 90 % stenosis, Prox and mid LCx 90 % stenosis ) CAD -RAD 4 A S/P coronary angiogram yesterday and was found with severe 2 vessel CAD in the LAD and Left Cx, CV surgery consulted for CABG evaluation, scheduled for today He was noted with elevated BUN/creatinine. We will has been consulted for renal failure. Renal function continued to worsen He has been initiated on renal replacement therapy Tolerating dialysis without difficulty yesterday Pending PermCath placement and AV access Case management coordinating outpatient dialysis chair [facility] He was seen in the medical floor, in no acute distress Family at the bedside Prognosis remains guarded REVIEW OF SYSTEMS: GENERAL: Positive for cough, congestion and generalized weakness NEUROLOGIC: Negative for any blurry vision, blind spots, double vision, facial asymmetry, dysphagia, dysarthria, hemiparesis, hemisensory deficits, vertigo, ataxia. HEENT: Negative for any head trauma, neck trauma, neck stiffness, photophobia, phonophobia, sinusitis, rhinitis. CARDIAC: Negative for any chest pain, dyspnea on exertion, paroxysmal nocturnal dyspnea, peripheral edema. PULMONARY: Negative for any shortness of breath, wheezing, COPD, or TB exposure. GASTROINTESTINAL: Negative for any abdominal pain, nausea, vomiting, bright red blood per rectum, melena. GENITOURINARY: Negative for any dysuria, hematuria, incontinence. INTEGUMENTARY: Negative for any rashes, cuts, insect bites. RHEUMATOLOGIC: Negative for any joint pains, photosensitive rashes, history of vasculitis or kidney problems. HEMATOLOGIC: Negative for any abnormal bruising, frequent infections or bleeding. PHYSICAL EXAM: GENERAL: Alert and oriented x 3. No acute distress. Well-nourished. EYES: EOMI. Anicteric. HENT: Moist mucous membranes. No scleral icterus. No cervical lymphadenopathy. LUNGS: Clear to auscultation bilaterally. No accessory muscle use. CARDIOVASCULAR: Regular rate and rhythm. No murmur. No JVD. ABDOMEN: Soft, non-tender and non-distended. No palpable masses. EXTREMITIES: 2+ edema. Non-tender. SKIN: No rashes or lesions. Warm. NEUROLOGIC: No focal neurological deficits. CN II-XII grossly intact, but not individually tested. PSYCHIATRIC: Cooperative. Appropriate mood and affect. LABORATORY: [ ] Hematology Labs: Test 10/03/24 05:09 Range/Units White Blood Count 10.0 4.8-10.8 K/uL Red Blood Count 3.09 L 4.50-6.20 MIL/uL Hemoglobin 9.1 L 14.0-18.0 g/dL Hematocrit 27.4 L 42-54 % Mean Corpuscular Volume 88.7 79-99 fL Mean Corpuscular Hemoglobin 29.4 27.0-33.0 pg Mean Corpuscular Hemoglobin Concent 33.2 32.0-36.0 g/dL Red Cell Distribution Width 14.3 11.0-15.5 % Platelet Count 136 # 130-400 K/uL Mean Platelet Volume 11.6 H 7.5-10.5 fL Immature Granulocyte % (Auto) 3.6 H 0-1 % Neutrophils (%) (Auto) 78.2 H 40.0-77.0 % Lymphocytes (%) (Auto) 6.8 L 21.0-51.0 % Monocytes (%) (Auto) 5.3 3.0-13.0 % Eosinophils (%) (Auto) 5.9 0.0-8.0 % Basophils (%) (Auto) 0.2 0.0-5.0 % Neutrophils # (Auto) 7.8 H 1.8-7.7 K/uL Lymphocytes # (Auto) 0.7 L 1.0-4.8 K/uL Monocytes # (Auto) 0.5 0.1-1.0 K/uL Eosinophils # (Auto) 0.59 0.00-0.70 K/uL Basophils # (Auto) 0.02 0.00-0.20 K/uL Absolute Immature Granulocyte (auto 0.36 0-1 K/uL Nucleated Red Blood Cells 0.2 H 0.0-0.19 % Platelet Morphology PLT CLUMPS PRESENT Chemistry Labs: Test 10/03/24 11:35 10/03/24 05:09 10/02/24 05:16 10/01/24 16:04 Range/Units Whole Blood Glucose 63 L 70-110 MG/DL Sodium Level 138 136-145 mmol/L Potassium Level 4.1 3.5-5.1 mmol/L Chloride Level 99 L 101-111 mmol/L Carbon Dioxide Level 27 21-32 mmol/L Blood Urea Nitrogen 67 H 7-18 mg/dL Creatinine 8.4 *H 0.5-1.3 mg/dL Glomerular Filtration Rate Calc 7 >90 mL/min Random Glucose 272 H 70-105 mg/dL Hemoglobin A1c 12.0 H 4.0-6.0 % Estimated Average Glucose (eAG) 298 H 70-126 mg/dL Total Calcium 6.1 L 8.5-10.1 mg/dL Total Bilirubin 0.5 0.2-1.0 mg/dL Aspartate Amino Transf (AST/SGOT) 41 H 10-37 U/L Alanine Aminotransferase (ALT/SGPT) 638 #*H 12-78 U/L Alkaline Phosphatase 197 H 50-136 U/L B-Type Natriuretic Peptide 2810 H 0-100 pg/mL Total Protein 5.6 L 6.0-8.3 g/dL Albumin 2.1 L 3.5-5.0 g/dL Triglycerides Level 118 30-200 mg/dL Cholesterol Level 191 <200 mg/dL LDL Cholesterol 134 H 0-99 mg/dL HDL Cholesterol 36 29-71 mg/dL Phosphorus Level 6.5 H 2.5-4.9 mg/dL Bedside Glucose Comment Stat Lab Glu Request Coagulation Labs: Test 10/03/24 05:09 Range/Units Prothrombin Time 11.0 9.6-11.6 SEC Prothromb Time International Ratio 0.98 0.85-1.15 Activated Partial Thromboplast Time 26.8 26.3-35.5 SEC DIAGNOSTICS / RADIOLOGY: REASON: preop CABG ORDERING PHYSICIAN: CANDIDA SZYMANSKI MD PROCEDURE: CXR1VW - CHEST 1VW Exam Type: CHEST 1VW Clinical Information: preop CABG Comparison: None Findings: Right permacath line is noted with tip at the distal superior vena caval level. The lungs are clear of infiltrates. The heart is normal in size. The bony and soft tissue structures of the chest are unremarkable. Impression: Clear lungs. DICTATED BY: ORTIZ BENITES MD DATE: 10/03/24 0838 REASON: sob ORDERING PHYSICIAN: MARIELOS VALLEJO PROCEDURE: CXR1VW - CHEST 1VW Exam Type: CHEST 1VW Clinical Information: sob Comparison: None Findings: Right permacath line is noted with tip at the distal superior vena caval level. There is cardiomegaly. There is prominence of the vascular markings consistent with pulmonary venous congestion. IMPRESSION: Findings consistent with pulmonary venous congestion. DICTATED BY: ORTIZ BENITES MD DATE: 10/01/24 1905 REASON: preop CABG ORDERING PHYSICIAN: CANDIDA SZYMANSKI MD PROCEDURE: CAROTID - US CAROTID DUPLEX Carotid Duplex and color-flow Doppler bilateral History: preop CABG Comparison: None Findings: No significant plaque is identified on either side. Left Internal Carotid Artery Peak Systolic Velocity (PSV), Left Internal Carotid to Common Carotid Artery peak systolic velocity ratio, Right Internal Carotid Artery Peak Systolic Velocity (PSV) and Right Internal Carotid to Common Carotid Artery peak systolic velocity ratio, are all within normal limits. External carotid artery velocities normal bilaterally. Bilateral vertebral arteries show antegrade flow. Impression: Normal exam. NASCET CRITERIA. The degree of internal carotid artery stenosis is based on NASCET criteria. Normal is no stenosis. Mild is less than 50% stenosis. Moderate is 50-69% stenosis. Severe is 70% to 99% stenosis. Total occlusion is no detectable patent lumen. DICTATED BY: ORTIZ BENITES MD DATE: 10/01/24 1621 REASON: nstemi ORDERING PHYSICIAN: ARIELA CHOI MD PROCEDURE: CTCAWC - CT CARDIAC ANGIO W/CONT. CCTA CT OF THE CHEST WITH CONTRAST- CT Cardiac Angio co-interpretation This is done as part of the CT cardiac angiogram study. The interpretation of the coronary arteries will be done by government employee in a separate report. History: over-read Comparison: none CT Dose Index (CTDI): 77.90 mGy Dose Length Product (DLP): 493.40 total mGy PROTOCOL: Examination is done at 2.5 millimeter volumetric acquisition after contrast administration with Isovue 370, 100 cc IV, without complications. Photography is done at 5 millimeter thick intervals for the thorax. The examination begins above the heart and therefore the lung apices are incompletely included. The rest of the left lung is included but the right lung is only included up to its middle third. The periphery of the right lung is not included in the study. FINDINGS: The visualized part of the airway is preserved. The bony and soft tissue structures of the chest wall are unremarkable. The aorta is unremarkable. No mediastinal lymphadenopathy is seen. The appendix is distended and there are surrounding inflammatory changes and the possibility of acute appendicitis cannot be excluded. There is no evidence of pulmonary embolism in the visualized lung segments. The upper abdominal views are unremarkable. Impression: NoThe appendix is distended and there are surrounding inflammatory changes and the possibility of acute appendicitis cannot be excluded. DICTATED BY: ORTIZ BENITES MD DATE: 09/29/24 1453 REASON: assess liver cirrhosis and CBD dilation ORDERING PHYSICIAN: SHAVON ARAGON PROCEDURE: ABDOMEN - US ABDOMINAL COMPLETE US ABDOMINAL COMPLETE HISTORY: No additional history given. COMPARISON: None TECHNIQUE: Multiple transverse and longitudinal ultrasound images of the abdomen were obtained. FINDINGS: Abdominal aorta and inferior vena cava are unremarkable. The visualized portion of the pancreas is within normal limits. Portal vein is patent. Liver measures 17 cm. Liver is echogenic consistent with liver parenchymal disease. No gallstone is seen. Common duct measures 4 mm. No evidence of gallbladder wall thickening is seen. Both kidneys are seen. Right kidney measures 10.3 x 4.9 x 5 cm. Left kidney measures 10.3 x 6.4 x 3 cm. No hydronephrosis is seen of the both kidneys. Spleen measures 12 cm. The spleen is grossly unremarkable. IMPRESSION: 1. No gallstone or ductal dilatation is seen. 2. No hydronephrosis is seen. DICTATED BY: JENNIFER MESA MD DATE: 09/28/24 1528 REASON: hypoxic resp failure ORDERING PHYSICIAN: SHAVON ARAGON PROCEDURE: CXR1VW - CHEST 1VW CHEST 1VW REASON: hypoxic resp failure COMPARISON: 09/23/2024 FINDINGS: There are diffuse bilateral infiltrates which are unchanged. Dialysis catheter remains in place. There is no pneumothorax or other complication. There are no pleural effusions. IMPRESSION: 1. Extensive bilateral infiltrates unchanged. DICTATED BY: ARMANDO FAIR MD DATE: 09/24/24 1051 REASON: FVO ORDERING PHYSICIAN: FELIX BARBOSA NP PROCEDURE: ECHO CMP - ECHO 2-D COMPLETE APPROVED REPORT EXAM: Two-dimensional and M-mode echocardiogram with Doppler and color Doppler. INDICATION ICD: Fluid volume overload 2D Dimensions RVDd 4.4 cm LVEF(%) 41.1 (>50%) LVED Vol(simp.) 176.0 mL IVSd 1.0 (0.7-1.1cm) FS(%) 20 % LVES Vol(simp.) 104.0 mL LVDd 5.4 (3.8-5.6cm) LA (2D) 4.1 (1.6-4.0cm) LVEF(%, simp.) 41 % PWd 1.4 (0.7-1.1cm) Ao Root(2D) 2.9 (2.0-3.7cm) LA ESV INDEX (4CH) 33.40 mL/m2 IVSs 1.2 cm LVOT diam 2.0 (1.8-2.4cm) LA ESV INDEX (2CH) 45.20 mL/m2 LVDs 4.3 (2.5-4.0cm) IVC diam 2.1 cm LA ESV INDEX (BP) 39.50 mL/m2 PWs 2.0 cm Deformation Strain Apical 4 -9.0 % Apical 2 -9.0 % Apical 3 -9.0 % Global Strain -9.0 % M-Mode Dimensions EPSS 1.7 cm LA (MM) 3.4 (1.6-4.0cm) Ao Root(MM) 3.3 (2.0-3.7cm) Aortic Valve AoV VTI 0.3 m Ao Mean GR 9.0 mmHg LVOT VTI 0.20 m STEPHANIE (VMAX) 1.9 cm2 STEPHANIE (VTI) 1.9 cm2 Mitral Valve MV E Vmax 149.3 cm/s DECEL Time 78 ms P 1/2 T 56 ms MVA (PHT) 3.9 cm2 TDI E/E' Medial 19.4 E/E' Lateral 11.8 Medial E' Peak V 7.70 cm/s Lateral E' Peak V 12.70 cm/s Tricuspid Valve RAP (EST) 8 mmHg RVSP 8.0 mmHg Left Ventricle The left ventricle is normal size. The inferior wall is severely hypokinetic. The other ibrahim are hypokinetic. Moderate concentric hypertrophy of the left ventricle is noted. Left ventricle systolic function is moderate to severely depressed, estimated LVEF 35 to 40%. E to E ratio is greater than 14, which is suggestive of increased left ventricle end-diastolic filling pressures. Right Ventricle The right ventricle is dilated. The right ventricular systolic function is normal. Atria The left atrium is mildly dilated, 40 mL/m. The right atrium is dilated. Aortic Valve Aortic valve is probably trileaflet. The leaflets are severely thickened and calcified. Trace aortic regurgitation. Mild aortic stenosis: Peak velocity 2.0 m/s, mean gradient 9 mmHg Mitral Valve Mild mitral annular calcification is noted. The leaflets are mild thickened and calcified. Trace mitral regurgitation. There is no mitral valve stenosis. Tricuspid Valve The tricuspid valve is normal in structure. Trace tricuspid regurgitation. RVSP is grossly normal, but is likely underestimated. Pulmonic Valve Pulmonic valve is not well visualized. Great Vessels The aortic root is normal in size. The IVC is normal in size and collapses <50% with inspiration. Pericardium Trace pericardial effusion. Other Information Quality : Technically difficult due to body habitus Conclusion The left atrium is mildly dilated, 40 mL/m. The right atrium is dilated. The right ventricle is dilated. Moderate concentric hypertrophy of the left ventricle is noted. The inferior wall is severely hypokinetic. The other ibrahim are hypokinetic. Left ventricle systolic function is moderate to severely depressed, estimated LVEF 35 to 40%. E to E ratio is greater than 14, which is suggestive of increased left ventricle end-diastolic filling pressures. Mild aortic stenosis: Peak velocity 2.0 m/s, mean gradient 9 mmHg (likely underestimated). Trace aortic regurgitation. Trace mitral regurgitation. Trace pericardial effusion. PASP is grossly normal, but is likely under estimated. Trace pericardial effusion. DICTATED BY: RONALD AGUAYO MD DATE: 09/23/24 0731 REASON: acute renal failure ORDERING PHYSICIAN: TERRANCE CHAN PROCEDURE: RENAL - US RENAL SONOGRAM US RENAL SONOGRAM REASON: acute renal failure COMPARISON: None TECHNIQUE: Renal and bladder sonogram was performed. FINDINGS: Right kidney is 11.3 x 4.9 x 4.7 cm, left is 11.5 x 5.5 x 4.4 cm. There is no mass, stone or hydronephrosis. Cortical thickness appears preserved. Echogenicity appears normal. The urinary bladder appears normal as well. IMPRESSION: 1. Normal renal and bladder sonogram. DICTATED BY: ARMANDO FAIR MD DATE: 09/22/24 1127 REASON: sob ORDERING PHYSICIAN: TERRANCE CHAN PROCEDURE: CHEST WO - CT CHEST W/O CONTRAST CT CHEST WITHOUT CONTRAST INDICATION: Bilateral lung pneumonia TECHNIQUE: Routine axial images using 5 mm slice thickness were acquired from the lung apices to the bases without the administration of IV contrast.Coronal and sagittal reformatted images acquired for interpretation. CT was performed with one or more of the following dose reduction techniques: Automated exposure control, adjustment of the mA and/or kV according to patient size, or use of iterative reconstruction technique. COMPARISON: None FINDINGS: The heart size is normal. Coronary arterial wall calcific plaque noted. No pericardial effusion noted. Mild calcific plaque is present along the aortic arch and thoracic aortic ibrahim without aneurysmal dilation. The trachea and airways are patent. Coalescent "ground-glass" opacities with intermixed consolidation/nodularity noted throughout the bilateral lungs in a centrilobular distribution. No axillary, hilar, or mediastinal lymphadenopathy. No pleural effusion or pneumothorax identified. Limited views of the upper abdomen appear normal. Visible osseous structures are intact. IMPRESSION: Extensive bilateral lung pneumonia. Arteriosclerotic disease as described. DICTATED BY: AGUS MC MD DATE: 09/21/242025 REASON: cough, shortness of breath ORDERING PHYSICIAN: HEBER CABRERA NP PROCEDURE: CXR1VW - CHEST 1VW PORTABLE CHEST RADIOGRAPH INDICATION: cough, shortness of breath COMPARISON: 04/05/2024 FINDINGS: Heart size is normal. The pulmonary vascularity and eder appear normal. Extensive coalescent/consolidative bilateral mid to lower lung opacities, right greater than left. No significant pleural effusion noted. No pneumothorax detected. IMPRESSION: Extensive bilateral mid to lower lung pneumonia, right greater than left. DICTATED BY: AGUS MC MD DATE: 09/21/24 190 ASSESSMENT: Volume overload End-stage renal disease Hyperosmolar Hyperglycemic Syndrome NSTEMI Influenza A Acute Hypoxemic Respiratory Failure Metabolic acidosis Lactic acidosis CKD stage 4 Uncontrolled Diabetes Protein Calorie malnutrition PLAN: Labs, diagnostic, radiologic exams reviewed and interpreted by myself and supervising physician. We have reviewed external records in detail Hold dialysis today, We will continue to monitor the patient closely Case management to coordinate outpatient dialysis chair [facility]. Preserve nondominant arm Require close monitoring of renal function and electrolytes Order CBC, CMP,and electrolytes in am Continue with antibiotics Renal diabetic diet BiPAP as necessary, for respiratory distress Monitor blood pressure adjust medication doses as needed Avoid hypotensive episodes May use Dilaudid 0.5 mg IV every 6 hours as needed for severe pain Monitor blood sugars Strict intake, output, and daily weight should be monitored Please renally adjust medications Avoid nephrotoxic and nonsteroidal drugs Avoid contrast if possible Will continue to monitor renal function, anemia, electrolytes Treatment plan discussed with patient Questions were answered We have discussed with the other team physicians in detail about the care plan ATTESTATION BY PHYSICIAN I have seen and examined the patient. I reviewed the documentation, medical decision making, and treatment plan as noted by the mid-level provider above. I agree with the findings and plan of care. BRAYDON HOLLINGSWORTH MD, [employer]IZABETH FINISH SAW OPERATOR Oct 03, 2024 15:21
[2024-10-03 15:45] LABS: ABG BASE EXCESS -0.9 mmol/L (-2.0-3.0); ABG OXYGEN SATURATION 99.2 % (94.0-98.0); ABG PCO2 30 mmHg (35-48); CARBON MONOXIDE 0.3 % (0.5-1.5); DEVICE COMMENT 4; HHb 0.8; PO2, ARTERIAL BG 439.9 mmHg (83.0-108.0)
[2024-10-03] MEDS ORDERED: ALBUMIN (HUMAN) 5% 250 ML IV ONE (15:58)
[2024-10-03 16:09] LABS: ABG BASE EXCESS -0.3 mmol/L (-2.0-3.0); ABG HCO3 22.3 mmol/L (21.0-28.0); ABG PCO2 28 mmHg (35-48); ABG PH 7.524 (7.350-7.450); CARBON MONOXIDE 0.3 % (0.5-1.5); DEVICE COMMENT 6
[2024-10-03 16:28] LABS: ABG BASE EXCESS -0.6 mmol/L (-2.0-3.0); ABG HCO3 23.6 mmol/L (21.0-28.0); ABG OXYGEN SATURATION 99.2 % (94.0-98.0); ABG PCO2 36 mmHg (35-48); ABG PH 7.434 (7.350-7.450); CARBON MONOXIDE 0.3 % (0.5-1.5); HHb 0.8; PO2, ARTERIAL BG 408.7 mmHg (83.0-108.0); VENT MODE, BG AMBU TRANSPORT (ROOM AIR)
--- NOTE | 2024-10-03 16:41 | EKG ---
[facility] Test Date: 2024-10-03 Test Time: 16:41:02 Pat Name: ADRIANA ABRAHAM Department: 2CV Room: 213 1 Gender: M Luster Applicator: Pennie OSUNA : 1975 Requested By: CANDIDA SZYMANSKI Order Number: [id number] Reading MD: Edison Rosario Measurements Intervals [place] Rate: 118 P: 67 IL: 152 QRS: 18 QRSD: 76 T: -14 QT: 310 QTc: 434 Interpretive Statements Sinus tachycardia ST & T wave abnormality, consider lateral ischemia Compared to ECG 10/03/2024 04:56:46 ST (T wave) deviation now present Possible ischemia now present Sinus rhythm no longer present Left ventricular hypertrophy no longer present Early repolarization no longer present Prolonged QT interval no longer present Electronically Signed On 10-03-2024 17:41:05 CABLE ARMORER OPERATOR by Edison Rosario Please click the below link to view image of tracing.
[2024-10-03 16:49] LABS: MEAN CORPUSCULAR HEMOGLOBIN 29.4 pg (27.0-33.0); MEAN CORPUSCULAR HGB CONC 33.1 g/dL (32.0-36.0); MEAN CORPUSCULAR VOLUME 88.8 fL (79-99); NUCLEATED RED BLOOD CELLS 0.3 % (0.0-0.19); RED BLOOD CELL COUNT(AUTO) 1.87 MIL/uL (4.50-6.20); RED CELL DISTRIBUTION WIDTH 14.5 % (11.0-15.5); WHITE BLOOD COUNT (AUTO) 26.1 K/uL (4.8-10.8)
[2024-10-03 16:57] LABS: HEMATOCRIT 16.6 % (42-54)
[2024-10-03 17:00] LABS: INR 1.7 (0.85-1.15); PROTHROMBIN TIME 18.1 SEC (9.6-11.6)
[2024-10-03 17:01] LABS: MAGNESIUM 1.3 mg/dL (1.80-2.40); PARTIAL THROMBOPLASTIN TIME 38.7 SEC (26.3-35.5); PHOSPHORUS 7.1 mg/dL (2.5-4.9); POTASSIUM 3.8 mmol/L (3.5-5.1)
--- NOTE | 2024-10-03 17:09 | HMCIMG ---
PORTABLE CHEST RADIOGRAPH INDICATION: s/p CABG COMPARISON: 10/03/2024 FINDINGS: traffic monitor specialist leads overlie the field of view. Median sternotomy wires are in appropriate alignment. Defibrillator patch projects over the right upper chest. Tip of Callahan-Saba catheter occupies the right main pulmonary artery. Tip of endotracheal tube is located 2.5 cm above the artur. Pleural mediastinal drainage catheters are in place. Heart size is normal. The pulmonary vascularity appears normal. Bilateral perihilar linear opacities without consolidation. No significant pleural effusion noted. No pneumothorax detected. IMPRESSION: Bilateral perihilar atelectasis.
--- NOTE | 2024-10-03 17:15 | NUR ---
h/h DR. SZYMANSKI CALLED AND NOTIFIED OF LAST H/H, CURRENT DRIPS, CHEST TUBE OUTPUT AND HEMODYNAMICS. TRANSFUSING 1 UNIT PRBC ORDERED.
[2024-10-03] MEDS: MAGNESIUM 2GM PREMIX 50ML 50 ML IV PRN (17:21)
[2024-10-03] MEDS: ALBUMIN (HUMAN) 5% 250 ML IV PRN (17:23)
[2024-10-03] MEDS: SODIUM BICARB 50MEQ 50ML VIAL IV PRN (17:23)
[2024-10-03] MEDS: acetaMINOPHEN 1,000 MG/100 ML VIAL IV SCH (17:31)
[2024-10-03] MEDS: ASPIRIN 81MG CHEW TAB NG ONE (17:31)
[2024-10-03] MEDS: ceFAZolin SODIUM 2 GM VIAL IVPB SCH (17:31)
[2024-10-03] MEDS: ondanSETRON 4MG INJ IV PRN (17:32)
[2024-10-03 17:34] LABS: ABG BASE EXCESS -3.2 mmol/L (-2.0-3.0); ABG PCO2 33 mmHg (35-48); CARBON MONOXIDE 0.3 % (0.5-1.5); PO2, ARTERIAL BG 252.6 mmHg (83.0-108.0); VENT MODE, BG SIMV-VC PS10 (ROOM AIR)
[2024-10-03] MEDS: INSULIN REGULAR, HUMAN 3ML 100 UNIT in 0.9%NACL 100ML 99 ML IV SCH (17:38)
--- NOTE | 2024-10-03 17:47 | PN ---
endocrinology progress note Date of Service: 10/03/2024 HISTORY OF PRESENT ILLNESS: s/p CABG and intubated. patient is on insulin drip. home regimen: novolin 70/30 insulin 70 units twice per day. REVIEW OF SYSTEMS intubated PAST MEDICAL HISTORY: Chronic kidney disease Diabetes type 2 Hypertension Hyperlipidemia Obesity PAST SURGICAL HISTORY: Left eye cataract surgery one month ago PAST SOCIAL HISTORY: Patient lives with . Patient denies alcohol tobacco and recreational drug use FAMILY HISTORY: Noncontributory Coded Allergies: No Known Allergies (Unverified Allergy, Unknown, 03/27/22) ASSESSMENT: Hyperosmolar Hyperglycemic Syndrome POA resolved s/p CABG and intubated. patient is on insulin drip.resolved but glucose are still elevated. insulin adjusted Uncontrolled Diabetes POA hba1c 12.9% home regimen: novolin 70/30 insulin 70 units twice per day. NSTEMI POA cath shows CAD and s/p CABG Influenza bronchopneumonia with sepsis POA Acute Hypoxemic Respiratory Failure POA Acute on chronic renal failure with concern for ATN POA ON HD Metabolic acidosis POA Lactic acidosis POA CKD stage 4 POA Protein Calorie malnutrition POA PLAN: continue insulin drip and keep glucose less than 180 mg/dl. continue to hold lantus 50 units bid and hold lispro insulin 25 units tid monitor glucose qx1 hourly Vitals/Labs Vital Signs Date Time Temp Pulse Resp B/P (MAP) Pulse Ox O2 Delivery O2 Flow Rate FiO2 10/03/24 17:33 40 10/03/24 16:24 115 10/03/24 12:00 98.1 16 116/71 95 Room Air 0.0 Laboratory Tests 10/03/24 05:09 10/03/24 16:30 Microbiology Date/Time Source Procedure Growth Status 10/03/24 05:00 Nasal Nasal Screen MRSA (PCR)(PEGGY) - Final Complete Medications Current Medications Ceftriaxone Sodium 1 gm ONCE ONCE IVPB; Start 09/21/24 at 18:00; Stop 09/21/24 at 18:13; Status DC Azithromycin 250 ml @ 250 mls/hr Q24H IVPB; Start 09/21/24 at 18:00; Stop 09/21/24 at 18:14; Status DC Promethazine HCl/ Codeine 10 ml ONCE ONCE PO; Start 09/21/24 at 18:00; Stop 09/21/24 at 18:01; Status DC Piperacillin Sod/ Tazobactam Sod 3.375 gm ONCE ONCE IVPB Last administered on 09/21/24at 18:35; Start 09/21/24 at 18:30; Stop 09/21/24 at 18:31; Status DC Insulin Human Regular 10 unit ONCE ONCE IV Last administered on 09/21/24at 18:36; Start 09/21/24 at 18:30; Stop 09/21/24 at 18:31; Status DC Metoprolol Tartrate 5 mg ONCE ONCE IV Last administered on 09/21/24at 18:32; Start 09/21/24 at 18:30; Stop 09/21/24 at 18:31; Status DC Heparin Sodium (Porcine) *calculation based on ACTUAL B... AD PRN IV; Start 09/21/24 at 19:30; Stop 09/26/24 at 07:14; Status DC Heparin Sodium/ Dextrose 250 ml @ 0 mls/hr Q6H IV Last administered on 09/25/24at 04:13; Start 09/21/24 at 19:30; Stop 09/26/24 at 18:36; Status DC Sodium Chloride 1,000 ml @ 0 mls/hr ONCE ONCE IV Last administered on 09/21/24at 18:37; Start 09/21/24 at 18:30; Stop 09/21/24 at 18:31; Status DC Ondansetron HCl 4 mg STK-MED ONCE .ROUTE Last administered on 09/21/24at 18:31; Start 09/21/24 at 18:29; Stop 09/21/24 at 18:29; Status DC Oseltamivir Phosphate 75 mg ONCE ONCE PO Last administered on 09/21/24at 18:45; Start 09/21/24 at 19:00; Stop 09/21/24 at 19:01; Status DC Acetaminophen 650 mg Q6H PRN PO; Start 09/21/24 at 19:30; Stop 10/03/24 at 12:53; Status DC Acetaminophen 650 mg Q4H PRN PO Last administered on 09/30/24at 01:32; Start 09/21/24 at 19:30; Stop 10/03/24 at 12:53; Status DC Guaifenesin/ Dextromethorphan 10 ml Q4H PRN PO Last administered on 09/23/24at 22:06; Start 09/21/24 at 19:30; Stop 10/03/24 at 12:53; Status DC Albuterol 1 udvial [id number] IH Last administered on 09/25/24at 06:43; Start 09/21/24 at 22:00; Stop 09/25/24 at 09:59; Status DC Famotidine 10 mg Q48H PO; Start 09/21/24 at 19:30; Stop 09/21/24 at 20:00; Status DC Nitroglycerin 0.5 inch Q8H TD Last administered on 09/25/24at 12:44; Start 09/21/24 at 19:30; Stop 09/27/24 at 10:34; Status DC Piperacillin Sod/ Tazobactam Sod 50 ml @ 12.5 mls/hr Q12H IV Last administered on 09/22/24at 20:43; Start 09/21/24 at 21:00; Stop 09/23/24 at 08:06; Status DC Sodium Chloride 1,000 ml @ 100 mls/hr Q10H IV Last administered on 09/23/24at 12:53; Start 09/21/24 at 19:30; Stop 09/27/24 at 10:34; Status DC Oseltamivir Phosphate 75 mg DAILY PO Last administered on 09/23/24at 08:38; Start 09/22/24 at 09:00; Stop 09/23/24 at 13:29; Status DC Doxycycline Hyclate 100 mg BID PO Last administered on 09/30/24at 20:53; Start 09/21/24 at 21:00; Stop 09/30/24 at 23:59; Status DC Aspirin 81 mg DAILY PO Last administered on 10/02/24at 09:28; Start 09/22/24 at 09:00; Stop 10/22/24 at 08:59 Insulin Human Regular 100 unit/ Sodium Chloride 101 ml @ 0 mls/hr PROTOCOL IV Last administered on 09/21/24at 21:01; Start 09/21/24 at 20:00; Stop 09/23/24 at 21:20; Status DC Famotidine 10 mg DAILY IV Last administered on 09/27/24at 09:09; Start 09/22/24 at 09:00; Stop 09/27/24 at 10:35; Status DC Alprazolam 0.5 mg ONCE ONCE PO Last administered on 09/21/24at 21:44; Start 09/21/24 at 22:00; Stop 09/21/24 at 22:01; Status DC Magnesium Sulfate 50 ml @ 0 mls/hr PROTOCOL PRN IV Last administered on 09/21/24at 23:52; Start 09/22/24 at 00:00; Stop 09/22/24 at 00:04; Status DC Magnesium Sulfate 50 ml @ As Directed STK-MED ONCE IV; Start 09/21/24 at 23:49; Stop 09/21/24 at 23:49; Status DC Sodium Chloride 1,000 ml @ 200 mls/hr PROTOCOL IV; Start 09/22/24 at 00:00; Stop 09/23/24 at 21:23; Status DC Potassium Chloride/Dextrose/ Sod Cl 1,000 ml @ 0 mls/hr AD IV; Start 09/22/24 at 00:00; Stop 09/23/24 at 21:23; Status DC Potassium Chloride 20 meq/ Sodium Chloride 1,010 ml @ 0 mls/hr PROTOCOL IV; Start 09/22/24 at 00:00; Stop 09/23/24 at 21:23; Status DC Magnesium Sulfate 50 ml @ 0 mls/hr PROTOCOL IV; Start 09/22/24 at 00:00; Stop 09/23/24 at 21:23; Status DC Insulin Human Regular 100 unit/ Sodium Chloride 101 ml @ 0 mls/hr PROTOCOL IV; Start 09/22/24 at 00:00; Stop 09/22/24 at 00:03; Status DC Mannitol 49 gm AD IV; Start 09/22/24 at 00:00; Stop 09/22/24 at 00:28; Status DC Dextrose/Sodium Chloride 1,000 ml @ 0 mls/hr AD IV Last administered on 09/22/24at 09:49; Start 09/22/24 at 00:00; Stop 09/23/24 at 21:23; Status DC Methylprednisolone Sodium Succinate 125 mg ONCE ONCE IVP Last administered on 09/22/24at 01:35; Start 09/22/24 at 00:30; Stop 09/22/24 at 00:31; Status DC Methylprednisolone Sodium Succinate 40 mg BID IVP Last administered on 09/26/24at 20:37; Start 09/22/24 at 09:00; Stop 09/27/24 at 10:35; Status DC Mannitol 245 ml @ 0 mls/hr AD IV; Start 09/22/24 at 00:30; Stop 09/22/24 at 20:17; Status DC Atorvastatin Calcium 40 mg HS PO; Start 09/22/24 at 21:00; Stop 09/22/24 at 20:17; Status DC Mannitol 500 ml @ 0 mls/hr AD IV; Start 09/22/24 at 00:30; Stop 09/22/24 at 14:33; Status DC Sodium Chloride 4 ml STK-MED ONCE IH; Start 09/22/24 at 05:59; Stop 09/22/24 at 06:00; Status DC Vitamin B Complex/ Vit C/Folic Acid 1 cap DAILY PO Last administered on 10/02/24at 09:28; Start 09/23/24 at 09:00; Stop 10/23/24 at 08:59 Furosemide 80 mg Q12H IV Last administered on 09/26/24at 13:20; Start 09/22/24 at 21:00; Stop 09/26/24 at 15:22; Status DC Nifedipine 60 mg DAILY PO Last administered on 09/25/24at 08:37; Start 09/23/24 at 09:00; Stop 09/28/24 at 12:01; Status DC Ferrous Sulfate 325 mg DAILY PO Last administered on 10/02/24at 09:30; Start 09/23/24 at 09:00; Stop 10/23/24 at 08:59 Miscellaneous Medication 1 tab DAILY PO; Start 09/23/24 at 09:00; Stop 09/22/24 at 15:56; Status DC Chlordiazepoxide HCl 25 mg Q2H PRN PO Last administered on 09/28/24at 23:59; Start 09/22/24 at 20:30; Stop 09/29/24 at 20:29; Status DC Chlordiazepoxide HCl 50 mg Q1H PRN PO; Start 09/22/24 at 20:30; Stop 09/29/24 at 20:29; Status DC Thiamine HCl 100 mg/Folic Acid 1 mg/Multivitamins/ Minerals 10 ml/ Sodium Chloride 1,011.2 ml @ 100 mls/ hr Q24H IV Last administered on 09/22/24at 20:43; Start 09/22/24 at 20:30; Stop 09/25/24 at 06:37; Status DC Multivitamins Therapeutic 1 tab DAILY PO Last administered on 10/02/24at 09:28; Start 09/23/24 at 09:00; Stop 10/23/24 at 08:59 Pharmacy Profile Note 1 each PROTOCOL PRN MISC; Start 09/22/24 at 20:30; Stop 09/29/24 at 20:29; Status DC Fish Oil 2,000 mg BID PO Last administered on 10/02/24at 20:38; Start 09/22/24 at 21:00; Stop 10/03/24 at 12:53; Status DC Metoprolol Tartrate 12.5 mg BID PO Last administered on 09/24/24at 12:07; Start 09/22/24 at 21:00; Stop 09/24/24 at 16:38; Status DC Insulin Glargine 10 units BID@0730,2100 SQ Last administered on 09/25/24at 20:44; Start 09/22/24 at 21:00; Stop 09/26/24 at 11:15; Status DC Vancomycin HCl 1,000 mg DAILY08 IV; Start 09/23/24 at 08:00; Stop 09/22/24 at 20:26; Status DC Vancomycin HCl 250 ml @ 125 mls/hr Q72H IV Last administered on 09/22/24at 20:48; Start 09/22/24 at 20:30; Stop 09/23/24 at 08:04; Status DC Atorvastatin Calcium 40 mg STK-MED ONCE .ROUTE; Start 09/22/24 at 20:41; Stop 09/22/24 at 20:41; Status DC Sodium Bicarbonate 100 meq ONCE ONCE IV Last administered on 09/23/24at 08:40; Start 09/23/24 at 08:00; Stop 09/23/24 at 08:08; Status DC Cefepime HCl 1 gm Q24H IVPB Last administered on 09/25/24at 08:36; Start 09/23/24 at 08:30; Stop 09/26/24 at 11:14; Status DC Pharmacy Profile Note 1 each ONCE MISC; Start 09/23/24 at 13:00; Stop 09/23/24 at 13:25; Status DC Oseltamivir Phosphate 75 mg QTUTHSA[DIALYSIS] PO; Start 09/23/24 at 16:00; Stop 09/23/24 at 17:04; Status DC Oseltamivir Phosphate 75 mg QTUTHSA[DIALYSIS] PO Last administered on 09/25/24at 16:09; Start 09/23/24 at 22:00; Stop 09/26/24 at 16:32; Status DC Atorvastatin Calcium 20 mg HS PO Last administered on 09/26/24at 20:36; Start 09/23/24 at 21:00; Stop 09/27/24 at 10:38; Status DC Clopidogrel Bisulfate 300 mg ONCE ONCE PO Last administered on 09/23/24at 19:04; Start 09/23/24 at 17:30; Stop 09/23/24 at 17:31; Status DC Clopidogrel Bisulfate 75 mg DAILY PO Last administered on 09/25/24at 08:38; Start 09/24/24 at 09:00; Stop 09/26/24 at 07:14; Status DC Lidocaine HCl 20 ml STK-MED ONCE .ROUTE; Start 09/23/24 at 17:17; Stop 09/23/24 at 17:17; Status DC Heparin Sodium/ Sodium Chloride 500 ml @ As Directed STK-MED ONCE IV; Start 09/23/24 at 17:17; Stop 09/23/24 at 17:18; Status DC Heparin Sodium (Porcine) 1,000 unit STK-MED ONCE .ROUTE; Start 09/23/24 at 17:24; Stop 09/23/24 at 17:24; Status DC Albumin Human 100 ml ONCE ONCE IV Last administered on 09/23/24at 19:53; Start 09/23/24 at 19:30; Stop 09/23/24 at 19:31; Status DC Sodium Chloride 1,000 ml @ 0 mls/hr ONCE IV Last administered on 09/26/24at 12:15; Start 09/23/24 at 19:30; Stop 09/27/24 at 13:51; Status DC Pharmacy Profile Note 1 each ONCE MISC; Start 09/23/24 at 21:30; Stop 09/24/24 at 07:08; Status DC Sodium Bicarbonate 650 mg TID PO Last administered on 09/26/24at 20:36; Start 09/24/24 at 09:00; Stop 09/27/24 at 10:34; Status DC Insulin Human Regular INSULIN SLIDING SCAL... ACHS SQ Last administered on 10/03/24at 05:48; Start 09/24/24 at 07:30; Stop 10/03/24 at 12:53; Status DC Vancomycin HCl 750 mg Q24H IVPB Last administered on 09/24/24at 22:43; Start 09/23/24 at 23:30; Stop 09/25/24 at 06:26; Status DC Fluconazole/ Sodium Chloride 800 mg ONCE ONCE IV; Start 09/24/24 at 14:00; Stop 09/24/24 at 13:50; Status DC Epoetin Moses-epbx 10,000 unit ONCE ONCE SQ Last administered on 09/24/24at 18:43; Start 09/24/24 at 16:00; Stop 09/24/24 at 16:01; Status DC Metoprolol Tartrate 5 mg STK-MED ONCE IV; Start 09/24/24 at 15:57; Stop 09/24/24 at 15:57; Status DC Metoprolol Succinate 50 mg BID PO Last administered on 09/24/24at 19:45; Start 09/24/24 at 21:00; Stop 09/26/24 at 07:14; Status DC Metoprolol Succinate 50 mg STK-MED ONCE PO; Start 09/24/24 at 19:28; Stop 09/24/24 at 19:28; Status DC Gabapentin 100 mg TID PO Last administered on 09/30/24at 14:07; Start 09/24/24 at 21:00; Stop 09/30/24 at 17:37; Status DC Vancomycin HCl 750 mg [id number] IVPB; Start 09/26/24 at 16:00; Stop 10/03/24 at 23:29; Status Hold Metoprolol Succinate 100 mg ONCE ONCE PO Last administered on 09/25/24at 08:37; Start 09/25/24 at 08:30; Stop 09/25/24 at 08:31; Status DC Albuterol 1 udvial [id number] IH Last administered on 09/26/24at 11:17; Start 09/25/24 at 10:00; Stop 09/26/24 at 15:22; Status DC Metoprolol Tartrate 50 mg ONCE ONCE PO Last administered on 09/25/24at 16:09; Start 09/25/24 at 15:00; Stop 09/25/24 at 15:01; Status DC Epoetin Moses-epbx 10,000 unit ONCE ONCE SQ Last administered on 09/25/24at 17:52; Start 09/25/24 at 15:00; Stop 09/25/24 at 15:01; Status DC Fluconazole/ Sodium Chloride 200 mg Q24H IV Last administered on 09/26/24at 14:38; Start 09/25/24 at 16:00; Stop 09/27/24 at 10:36; Status DC Ondansetron HCl 4 mg STK-MED ONCE .ROUTE; Start 09/25/24 at 22:35; Stop 09/25/24 at 22:41; Status DC Sodium Chloride 250 ml @ 0 mls/hr Q0M IV; Start 09/25/24 at 23:00; Stop 09/27/24 at 10:34; Status DC Albumin Human 100 ml @ 0 mls/hr AD STAT IV Last administered on 09/25/24at 23:17; Start 09/25/24 at 23:09; Stop 09/25/24 at 23:12; Status DC Norepinephrine 250 ml @ 0 mls/hr AD PRN IV Last administered on 09/26/24at 01:40; Start 09/26/24 at 01:30; Stop 09/27/24 at 10:34; Status DC Ondansetron HCl 4 mg Q6H PRN IVP Last administered on 09/27/24at 08:51; Start 09/26/24 at 01:30; Stop 10/03/24 at 12:53; Status DC Morphine Sulfate 2 mg Q4H PRN IVP; Start 09/26/24 at 01:30; Stop 10/01/24 at 04:29; Status DC Ondansetron HCl 4 mg STK-MED ONCE .ROUTE; Start 09/26/24 at 01:21; Stop 09/26/24 at 01:21; Status DC Norepinephrine 250 ml @ As Directed STK-MED ONCE IV; Start 09/26/24 at 01:22; Stop 09/26/24 at 01:22; Status DC Metoprolol Succinate 25 mg BID PO Last administered on 10/03/24at 08:55; Start 09/26/24 at 09:00; Stop 10/03/24 at 12:53; Status DC Piperacillin Sod/ Tazobactam Sod 3.375 gm Q12H IV Last administered on 10/02/24at 22:59; Start 09/26/24 at 11:30; Stop 10/06/24 at 11:29 Insulin Glargine 15 units BID@0730,2100 SQ Last administered on 09/30/24at 07:03; Start 09/26/24 at 21:00; Stop 09/30/24 at 17:13; Status DC Albuterol 1 udvial [id number] PRN IH; Start 09/26/24 at 15:30; Stop 10/21/24 at 21:59 Oseltamivir Phosphate 75 mg Q24H PO Last administered on 09/27/24at 18:04; Start 09/26/24 at 17:00; Stop 09/27/24 at 17:01; Status DC Magnesium Sulfate 50 ml @ 0 mls/hr PROTOCOL IV; Start 09/26/24 at 18:30; Stop 09/27/24 at 10:25; Status DC Insulin Human Regular 100 unit/ Sodium Chloride 101 ml @ 0 mls/hr PROTOCOL IV Last administered on 09/26/24at 18:36; Start 09/26/24 at 18:30; Stop 09/27/24 at 10:25; Status DC Pantoprazole Sodium 40 mg BID IVP Last administered on 10/03/24at 08:55; Start 09/27/24 at 21:00; Stop 10/03/24 at 12:53; Status DC Pantoprazole Sodium 40 mg ONCE ONCE IVP Last administered on 09/27/24at 12:08; Start 09/27/24 at 12:00; Stop 09/27/24 at 12:01; Status DC Sodium Chloride 1,000 ml @ 0 mls/hr ONCE IV; Start 09/27/24 at 14:30; Stop 09/27/24 at 13:51; Status DC Sodium Chloride 1,000 ml @ 0 mls/hr ONCE IV Last administered on 10/03/24at 17:22; Start 09/27/24 at 15:00; Stop 10/27/24 at 14:59 Heparin Sodium (Porcine) 10,000 unit AD IRRIG Last administered on 10/01/24at 17:18; Start 09/27/24 at 14:00; Stop 10/27/24 at 13:59 Prednisone 20 mg DAILY PO Last administered on 09/30/24at 08:50; Start 09/28/24 at 09:00; Stop 10/01/24 at 08:59; Status DC Iohexol 35,000 mg STK-MED ONCE IV; Start 09/29/24 at 11:19; Stop 09/29/24 at 11:20; Status DC Iohexol 50 ml STK-MED ONCE IV; Start 09/29/24 at 12:17; Stop 09/29/24 at 12:17; Status DC Metoprolol Tartrate 5 mg STK-MED ONCE IV; Start 09/29/24 at 12:23; Stop 09/29/24 at 12:24; Status DC Epoetin Moses-epbx 10,000 unit ONCE ONCE SQ Last administered on 09/29/24at 16:48; Start 09/29/24 at 16:30; Stop 09/29/24 at 16:31; Status DC Albumin Human 100 ml ONCE ONCE IV; Start 09/29/24 at 15:15; Stop 09/29/24 at 16:54; Status DC Epoetin Moses-epbx 10,000 unit [id number] SQ Last administered on 10/01/24at 15:34; Start 10/01/24 at 09:00; Stop 10/31/24 at 08:59 Clopidogrel Bisulfate 75 mg DAILY PO Last administered on 09/30/24at 08:49; Start 09/30/24 at 09:00; Stop 10/01/24 at 08:26; Status DC Atorvastatin Calcium 40 mg HS PO Last administered on 10/02/24at 20:37; Start 09/30/24 at 21:00; Stop 10/30/24 at 20:59 Sodium Bicarbonate 100 meq ONCE ONCE IV Last administered on 09/30/24at 10:28; Start 09/30/24 at 09:00; Stop 09/30/24 at 09:01; Status DC Calcium Carbonate 1,000 mg TID PO Last administered on 10/02/24at 20:38; Start 09/30/24 at 14:00; Stop 10/30/24 at 13:59 Ergocalciferol 50,000 unit ONCE ONCE PO Last administered on 09/30/24at 14:07; Start 09/30/24 at 14:00; Stop 09/30/24 at 14:01; Status DC Insulin Glargine 20 units AM SQ; Start 10/01/24 at 09:00; Stop 09/30/24 at 17:26; Status DC Insulin Glargine 10 units HS SQ; Start 09/30/24 at 21:00; Stop 09/30/24 at 17:26; Status DC Insulin Glargine 30 units HS SQ Last administered on 10/01/24at 19:54; Start 09/30/24 at 21:00; Stop 10/02/24 at 07:19; Status DC Insulin Human Lispro 7 unit TIDAC SQ Last administered on 10/01/24at 16:22; Start 10/01/24 at 07:30; Stop 10/01/24 at 17:01; Status DC Dextrose 50 ml AD PRN IV; Start 09/30/24 at 17:30; Stop 10/01/24 at 08:25; Status DC Glucagon 1 mg AD PRN IM; Start 09/30/24 at 17:30; Stop 10/01/24 at 08:25; Status DC Gabapentin 100 mg DAILY PO Last administered on 10/02/24at 09:28; Start 10/01/24 at 09:00; Stop 10/24/24 at 20:59 Melatonin 5 mg ONCE ONCE PO Last administered on 09/30/24at 23:05; Start 09/30/24 at 23:00; Stop 09/30/24 at 23:01; Status DC Lidocaine HCl 20 ml STK-MED ONCE .ROUTE; Start 10/01/24 at 07:12; Stop 10/01/24 at 07:13; Status DC Iohexol 35,000 mg STK-MED ONCE IV; Start 10/01/24 at 07:12; Stop 10/01/24 at 07:14; Status DC Heparin Sodium (Porcine) 10,000 unit STK-MED ONCE .ROUTE; Start 10/01/24 at 07:12; Stop 10/01/24 at 07:14; Status DC Heparin Sodium/ Sodium Chloride 1,000 ml @ As Directed STK-MED ONCE IV; Start 10/01/24 at 07:12; Stop 10/01/24 at 07:14; Status DC Nitroglycerin 50 mg STK-MED ONCE .ROUTE; Start 10/01/24 at 07:12; Stop 10/01/24 at 07:14; Status DC Fentanyl Citrate 100 mcg STK-MED ONCE .ROUTE; Start 10/01/24 at 07:40; Stop 10/01/24 at 07:40; Status DC Midazolam HCl 2 mg STK-MED ONCE .ROUTE; Start 10/01/24 at 07:40; Stop 10/01/24 at 07:40; Status DC Verapamil HCl 5 mg STK-MED ONCE .ROUTE; Start 10/01/24 at 07:59; Stop 10/01/24 at 07:59; Status DC Dextrose 50 ml AD PRN IV; Start 10/01/24 at 08:30; Stop 10/31/24 at 08:29 Glucagon 1 mg AD PRN IM; Start 10/01/24 at 08:30; Stop 10/31/24 at 08:29 Hydralazine HCl 5 mg ONCE ONCE IV Last administered on 10/01/24at 18:26; Start 10/01/24 at 16:30; Stop 10/01/24 at 16:31; Status DC Hydralazine HCl 10 mg Q6H PRN IV; Start 10/01/24 at 16:30; Stop 10/03/24 at 12:53; Status DC Calcium Gluconate 1 gm/Sodium Chloride 100 ml @ 0 mls/hr PROTOCOL IV; Start 10/01/24 at 17:00; Stop 10/03/24 at 12:53; Status DC Insulin Human Lispro 10 unit TIDAC SQ; Start 10/01/24 at 17:00; Stop 10/01/24 at 19:41; Status DC Insulin Human Lispro 15 unit TIDAC SQ Last administered on 10/02/24at 07:01; Start 10/02/24 at 07:30; Stop 10/02/24 at 07:20; Status DC Insulin Glargine 50 units DAILY SQ Last administered on 10/02/24at 09:41; Start 10/02/24 at 07:30; Stop 10/02/24 at 16:53; Status DC Insulin Human Lispro 20 unit TIDAC SQ Last administered on 10/02/24at 11:48; Start 10/02/24 at 11:30; Stop 10/02/24 at 16:53; Status DC Cefazolin Sodium 2 gm ONCALL IVPB; Start 10/02/24 at 10:30; Stop 10/03/24 at 13:09; Status DC Insulin Glargine 50 units BID SQ Last administered on 10/03/24at 09:02; Start 10/02/24 at 21:00; Stop 10/03/24 at 12:53; Status DC Insulin Human Lispro 25 unit TIDAC SQ Last administered on 10/02/24at 17:17; Start 10/02/24 at 17:00; Stop 10/03/24 at 12:53; Status DC Cefazolin Sodium 1 gm STK-MED ONCE .ROUTE; Start 10/03/24 at 07:24; Stop 10/03/24 at 07:29; Status DC Heparin Sodium/ Sodium Chloride 500 ml @ As Directed STK-MED ONCE IV; Start 10/03/24 at 07:24; Stop 10/03/24 at 07:29; Status DC Papaverine HCl 60 mg STK-MED ONCE .ROUTE; Start 10/03/24 at 07:24; Stop 10/03/24 at 07:29; Status DC Epinephrine HCl 10 mg/Sodium Chloride 250 ml @ 0 mls/hr AD PRN IV; Start 10/03/24 at 10:00; Stop 11/02/24 at 09:59 Norepinephrine Bitartrate 250 ml @ 0 mls/hr AD PRN IV; Start 10/03/24 at 10:00; Stop 11/02/24 at 09:59 Aminocaproic Acid 39816 mg/Sodium Chloride 480 ml @ 0 mls/hr AD PRN IV; Start 10/03/24 at 10:00; Stop 11/02/24 at 09:59 Lidocaine HCl/ Dextrose 250 ml @ As Directed STK-MED ONCE IV; Start 10/03/24 at 11:16; Stop 10/03/24 at 11:17; Status DC Nitroglycerin/ Dextrose 1 ml @ As Directed STK-MED ONCE .ROUTE; Start 10/03/24 at 11:16; Stop 10/03/24 at 11:17; Status DC Dextrose 50 ml STK-MED ONCE IV; Start 10/03/24 at 11:44; Stop 10/03/24 at 11:44; Status DC Cefazolin Sodium 2 gm STK-MED ONCE .ROUTE; Start 10/03/24 at 12:52; Stop 10/03/24 at 12:52; Status DC Acetaminophen 1,000 mg Q6H6 IV Last administered on 10/03/24at 17:31; Start 10/03/24 at 18:00; Stop 10/04/24 at 17:59 Aspirin 81 mg ONCE ONCE NG Last administered on 10/03/24at 17:31; Start 10/03/24 at 17:00; Stop 10/03/24 at 17:02; Status DC Docusate Sodium 100 mg BID PO; Start 10/03/24 at 21:00; Stop 11/02/24 at 20:59 Lactulose 20 gm BID PRN PO; Start 10/03/24 at 13:00; Stop 11/02/24 at 12:59 Atorvastatin Calcium 40 mg HS PO; Start 10/03/24 at 21:00; Stop 10/03/24 at 12:58; Status DC Magnesium Hydroxide 30 ml DAILY PRN PO; Start 10/03/24 at 13:00; Stop 11/02/24 at 12:59 Dexmedetomidine/ Sodium Chloride 400 mcg PROTOCOL IV; Start 10/03/24 at 13:00; Stop 10/04/24 at 12:59 Acetaminophen 650 mg Q6H PRN PO; Start 10/03/24 at 13:00; Stop 11/02/24 at 12:59 Protamine Sulfate 250 mg STK-MED ONCE IV; Start 10/03/24 at 12:54; Stop 10/03/24 at 12:55; Status DC Lidocaine HCl 100 mg STK-MED ONCE .ROUTE; Start 10/03/24 at 12:55; Stop 10/03/24 at 12:55; Status DC Heparin Sodium (Porcine) 10,000 unit STK-MED ONCE .ROUTE; Start 10/03/24 at 12:55; Stop 10/03/24 at 12:55; Status DC Epinephrine HCl 1 mg STK-MED ONCE .ROUTE; Start 10/03/24 at 12:55; Stop 10/03/24 at 12:55; Status DC Sodium Bicarbonate 200 ml @ As Directed STK-MED ONCE .ROUTE; Start 10/03/24 at 12:55; Stop 10/03/24 at 12:55; Status DC Norepinephrine Bitartrate 4 mg STK-MED ONCE IV; Start 10/03/24 at 12:55; Stop 10/03/24 at 12:55; Status DC Fentanyl Citrate 1,000 mcg STK-MED ONCE IJ; Start 10/03/24 at 12:55; Stop 10/03/24 at 12:55; Status DC Propofol 200 mg STK-MED ONCE IV; Start 10/03/24 at 12:55; Stop 10/03/24 at 12:56; Status DC Midazolam HCl 2 mg STK-MED ONCE .ROUTE; Start 10/03/24 at 12:55; Stop 10/03/24 at 12:56; Status DC Rocuronium [place] 50 mg STK-MED ONCE .ROUTE; Start 10/03/24 at 12:56; Stop 10/03/24 at 12:56; Status DC Etomidate 20 mg STK-MED ONCE .ROUTE; Start 10/03/24 at 12:59; Stop 10/03/24 at 13:00; Status DC Sodium Chloride 1,000 ml @ 10 mls/hr ONCE IV; Start 10/03/24 at 13:00; Stop 10/04/24 at 12:59 Sodium Chloride 10 ml Q8H PRN IVP; Start 10/03/24 at 13:00; Stop 11/02/24 at 12:59 Morphine Sulfate 0.5 mg Q2H PRN IV; Start 10/03/24 at 13:00; Stop 10/04/24 at 12:59 Morphine Sulfate 1 mg Q2H PRN IV; Start 10/03/24 at 13:00; Stop 10/04/24 at 12:59 Acetaminophen 650 mg Q4H PRN RC; Start 10/03/24 at 13:00; Stop 11/02/24 at 12:59 Ondansetron HCl 4 mg Q6H PRN IV Last administered on 10/03/24at 17:32; Start 10/03/24 at 13:00; Stop 11/02/24 at 12:59 Sodium Chloride 500 ml @ 0 mls/hr AD IV; Start 10/03/24 at 13:00; Stop 11/02/24 at 12:59 Nitroglycerin/ Dextrose 0 ml @ 0 mls/hr AD IV; Start 10/03/24 at 13:00; Stop 10/06/24 at 12:59 Propofol 100 ml @ 0 mls/hr AD PRN IV; Start 10/03/24 at 13:00; Stop 10/07/24 at 12:59 Norepinephrine Bitartrate 8 mg/ Dextrose 250 ml @ 0 mls/hr AD PRN IV; Start 10/03/24 at 13:00; Stop 10/03/24 at 13:03; Status DC Epinephrine HCl 10 mg/Sodium Chloride 250 ml @ 0 mls/hr AD PRN IV; Start 10/03/24 at 13:00; Stop 10/03/24 at 13:03; Status DC Aminocaproic Acid 27650 mg/Sodium Chloride 310 ml @ 25 mls/hr AD IV; Start 10/03/24 at 13:00; Stop 10/03/24 at 13:03; Status DC Calcium Gluconate 1 gm/Sodium Chloride 60 ml @ 200 mls/hr AD PRN IV; Start 10/03/24 at 13:00; Stop 11/02/24 at 12:59 Magnesium Sulfate 50 ml @ 12.5 mls/hr AD PRN IV Last administered on 10/03/24at 17:21; Start 10/03/24 at 13:00; Stop 11/02/24 at 12:59 Potassium Chloride 100 ml @ 100 mls/hr AD PRN IV; Start 10/03/24 at 13:00; Stop 11/02/24 at 12:59 Potassium Phosphate 250 ml @ 42 mls/hr AD PRN IV; Start 10/03/24 at 13:00; Stop 11/02/24 at 12:59 Albumin Human 250 ml @ 0 mls/hr AD PRN IV Last administered on 10/03/24at 17:23; Start 10/03/24 at 13:00; Stop 10/03/24 at 17:24; Status DC Acetaminophen 650 mg Q4H PRN PO; Start 10/03/24 at 13:00; Stop 11/02/24 at 12:59 Insulin Human Regular 100 unit/ Sodium Chloride 100 ml @ 0 mls/hr AD IV Last administered on 10/03/24at 17:38; Start 10/03/24 at 13:00; Stop 10/05/24 at 12:59 Cefazolin Sodium 2 gm Q8H IVPB Last administered on 10/03/24at 17:31; Start 10/03/24 at 18:00; Stop 10/04/24 at 10:01 Tramadol HCl 25 mg Q6H PRN PO; Start 10/03/24 at 13:00; Stop 10/08/24 at 12:59 Tramadol HCl 50 mg Q6H PRN PO; Start 10/03/24 at 13:00; Stop 10/08/24 at 12:59 Famotidine 20 mg Q48H IV; Start 10/03/24 at 21:00; Stop 11/02/24 at 20:59 Sodium Bicarbonate 50 meq AD PRN IV Last administered on 10/03/24at 17:23; Start 10/03/24 at 13:00; Stop 10/06/24 at 12:59 Dextrose 50 ml AD PRN IV; Start 10/03/24 at 13:00; Stop 10/03/24 at 13:04; Status DC Glucagon 1 mg AD PRN IM; Start 10/03/24 at 13:00; Stop 10/03/24 at 13:04; Status DC Amiodarone HCl 150 mg STK-MED ONCE .ROUTE; Start 10/03/24 at 13:45; Stop 10/03/24 at 13:46; Status DC Potassium Chloride 300 ml @ As Directed STK-MED ONCE IV; Start 10/03/24 at 14:24; Stop 10/03/24 at 14:25; Status DC Heparin Sodium (Porcine) 10,000 unit STK-MED ONCE .ROUTE; Start 10/03/24 at 14:28; Stop 10/03/24 at 14:29; Status DC Lidocaine HCl 100 mg STK-MED ONCE .ROUTE; Start 10/03/24 at 14:30; Stop 10/03/24 at 14:30; Status DC Vasopressin 20 units STK-MED ONCE .ROUTE; Start 10/03/24 at 14:39; Stop 10/03/24 at 14:39; Status DC Albumin Human 500 ml @ As Directed STK-MED ONCE IV; Start 10/03/24 at 15:20; Stop 10/03/24 at 15:20; Status DC Albumin Human 250 ml @ As Directed STK-MED ONCE IV; Start 10/03/24 at 15:58; Stop 10/03/24 at 15:58; Status DC Cefazolin Sodium 3 gm STK-MED ONCE IVPB Last administered on 10/03/24at 13:15; Start 10/03/24 at 13:15; Stop 10/03/24 at 17:02; Status DC Papaverine HCl 60 mg STK-MED ONCE IRRIG Last administered on 10/03/24at 13:45; Start 10/03/24 at 13:45; Stop 10/03/24 at 17:02; Status DC Cefazolin Sodium 1 gm STK-MED ONCE IRRIG Last administered on 10/03/24at 13:45; Start 10/03/24 at 13:45; Stop 10/03/24 at 17:02; Status DC HENNA PATEL MD Oct 03, 2024 17:47
[2024-10-03] MEDS: CALCIUM GLUC 1GM 1 GM in 0.9%NACL 50ML 50 ML IV PRN (17:52)
[2024-10-03 18:43] LABS: ABG BASE EXCESS -2.2 mmol/L (-2.0-3.0); ABG HCO3 22.5 mmol/L (21.0-28.0); ABG OXYGEN SATURATION 98.2 % (94.0-98.0); ABG PCO2 38 mmHg (35-48); ABG PH 7.395 (7.350-7.450); CARBON MONOXIDE 0.9 % (0.5-1.5); HHb 1.8; PO2, ARTERIAL BG 137.6 mmHg (83.0-108.0); VENT MODE, BG SIMV PS10 (ROOM AIR)
--- NOTE | 2024-10-03 19:00 | NUR ---
SBP 70S DR. SZYMANSKI NOTIFIED OF DECREASED BLOOD PRESSURE AND HEMODYNAMICS POST 1 UNIT PRBC TRANSFUSION. NEW ORDERS RECEIVED AND NOTED. REPORT GIVEN TO EKTA HOFFMAN.
[2024-10-03 19:22] LABS: ABG BASE EXCESS 3.8 mmol/L (-2.0-3.0); ABG OXYGEN SATURATION 97.8 % (94.0-98.0); ABG PCO2 41 mmHg (35-48); ABG PH 7.456 (7.350-7.450); CARBON MONOXIDE 0.7 % (0.5-1.5); HHb 2.2; PO2, ARTERIAL BG 133.1 mmHg (83.0-108.0); VENT MODE, BG SIMV PS10 (ROOM AIR)
--- NOTE | 2024-10-03 19:22 | OP ---
DATE OF PROCEDURE: 10/03/2024 PREOPERATIVE DIAGNOSIS: Three-system coronary artery disease. POSTOPERATIVE DIAGNOSIS: Three-system coronary artery disease. PROCEDURES PERFORMED: * Off-pump coronary artery bypass grafting x 3 vessels (left internal mammary artery to the LAD, reverse saphenous vein graft from the aorta to the left posterolateral coronary artery, reverse saphenous vein graft from the aorta to the distal posterior descending artery). * Rigid sternal fixation with the MIRIAN sternal plating system. OPERATING SURGEON: German Pgae MD PRODUCTION SERVICE MANAGER: Iris Gay ANESTHESIOLOGIST: Dr. Arciniega TYPE OF ANESTHESIA: General endotracheal anesthesia. BRIEF HISTORY: The patient is a 49-year-old unfortunate male who presented with chronic renal insufficiency. We initially were consulted for an AV fistula, however, the patient was down getting a CTA of his heart by his associate data scientist when we first were consulted. They decided to wait for the workup of his heart before proceeding with AV fistula. He subsequently underwent a heart catheterization, which revealed three-system coronary artery disease and we were consulted this time for coronary artery bypass grafting. He presents now for surgical revascularization of his heart. FINDINGS: The patient had a good size left internal mammary artery and a relatively good size left anterior descending artery. The patient's obtuse marginal coronary arteries were extremely small including the left posterolateral coronary artery, which was the biggest vessel on the lateral wall. I decided to bypass it, although it was not much bigger than 1 mm. His posterior descending artery had disease in its midsection and had to be grafted distally. By PE, at the end of the case, his function did appear subjectively better. DESCRIPTION OF PROCEDURE: The patient was brought to the operating room and placed on the operating table in supine position. He was given general endotracheal anesthesia. After placed lines and catheters, his chest, abdomen and legs were prepped and draped in the usual sterile fashion. His left greater saphenous vein was harvested endoscopically and simultaneously, a median sternotomy was performed and left internal mammary artery was taken down. The patient was given 15,000 units of IV heparin. The left internal mammary artery was clamped with bulldog proximally and divided distally. The pericardium was opened in the midline and the mid LAD was stabilized with Acrobat epicardial retractor. A 5-0 Prolene snare was placed proximal to target site, which was opened longitudinally. The distal end of left internal mammary artery was then anastomosed to the side of the LAD over a 1 mm shunt using a running 7-0 Prolene suture. Its pedicle was tacked to the epicardium with two 6-0 Prolene sutures. The bulldog clamp and snares released. The LAD was remainder of the procedure. The next target was the left posterolateral coronary artery. This received the distal end of a reverse saphenous vein graft. An end-to-side anastomosis was performed over 1 mm shunt using a running 7-0 Prolene suture. This vein graft was draped under left internal mammary artery and cut to appropriate length to reach the aorta. The final target was the distal posterior descending artery. This received the distal end of a second segment reverse saphenous vein graft. An end-to-side anastomosis was performed over a 1 mm shunt using a running 7-0 Prolene suture. This vein graft was draped along the right side of heart and cut to appropriate length to reach the aorta. A partial occlusion clamp was placed on the ascending aorta and two 4.0 mm aortotomy holes were made in the proximal ends of vein grafts, anastomosed to the side of aorta using running 6-0 Prolene sutures. The vein grafts were deaired. Partial occlusion clamp removed and all 3 systems were revascularized. The patient was given protamine. The mediastinum and left chest were drained with 24-Tamazight Jeffrey drain, secured to the skin with silk sutures. The pericardium was loosely approximated to the heart and grafted with several separate Ethibond sutures. The sternum was then reapproximated with combination of stainless steel wires and the MIRIAN sternal plating system. In the presternal fashion, subcutaneous tissue was closed with running layers of Vicryl suture. The skin was closed with a running intracuticular Monocryl stitch. The wounds were then cleaned and dried, covered with bandages. The patient was undraped and taken and intubated to the ICU in critical but stable condition. TID: [id number] RECEIPT: [id number] cc: Dr. Gonzales, Iris Gay, BELLA FLETCHER MD(User)
[2024-10-03 19:47] LABS: HEMATOCRIT 20.8 % (42-54)
[2024-10-03] MEDS: VASOpressin 20 UNITS/ML 1ML Vi 20 UNITS in 0.9%NACL 100ML 100 ML IV SCH (19:57)
[2024-10-03 20:50] LABS: ABG BASE EXCESS -1.5 mmol/L (-2.0-3.0); ABG HCO3 22.4 mmol/L (21.0-28.0); ABG OXYGEN SATURATION 98.1 % (94.0-98.0); ABG PCO2 35 mmHg (35-48); CARBON MONOXIDE 0.4 % (0.5-1.5); HHb 1.9; PO2, ARTERIAL BG 149.2 mmHg (83.0-108.0); VENT MODE, BG SIMV PS10 (ROOM AIR)
[2024-10-03] MEDS: morPHINE 2 MG SYG IV PRN (20:56)
[2024-10-03] MEDS: FAMOTIDINE 20MG VIAL IV SCH (20:57)
[2024-10-03] MEDS: doCUSate SODIUM 100 MG CAP PO SCH (20:57)
[2024-10-03] MEDS ORDERED: atorVAStatin 40 MG TABLET PO SCH (21:00)
[2024-10-03 21:45] LABS: ABG HCO3 24.3 mmol/L (21.0-28.0); ABG OXYGEN SATURATION 97.6 % (94.0-98.0); ABG PCO2 38 mmHg (35-48); ABG PH 7.425 (7.350-7.450); CARBON MONOXIDE 0.3 % (0.5-1.5); HHb 2.4; PO2, ARTERIAL BG 129.1 mmHg (83.0-108.0); VENT MODE, BG SIMV PS10 (ROOM AIR)
[2024-10-03 22:28] LABS: ABG BASE EXCESS -0.6 mmol/L (-2.0-3.0); ABG OXYGEN SATURATION 97.6 % (94.0-98.0); ABG PCO2 39 mmHg (35-48); ABG PH 7.405 (7.350-7.450); CARBON MONOXIDE 0.2 % (0.5-1.5); HHb 2.4; PO2, ARTERIAL BG 128.5 mmHg (83.0-108.0); VENT MODE, BG SIMV PS10 (ROOM AIR)
[2024-10-03 23:20] LABS: HEMATOCRIT 26.1 % (42-54)
[2024-10-03 23:32] LABS: MAGNESIUM 2.1 mg/dL (1.80-2.40); PHOSPHORUS 7.9 mg/dL (2.5-4.9); POTASSIUM 4.8 mmol/L (3.5-5.1)
[2024-10-03 23:35] LABS: CREATININE 8.7 mg/dL (0.5-1.3)
[2024-10-03 23:48] LABS: ABG BASE EXCESS 1.2 mmol/L (-2.0-3.0); ABG OXYGEN SATURATION 97.1 % (94.0-98.0); ABG PCO2 42 mmHg (35-48); ABG PH 7.409 (7.350-7.450); CARBON MONOXIDE 0.6 % (0.5-1.5); HHb 2.9; PO2, ARTERIAL BG 112.1 mmHg (83.0-108.0); VENT MODE, BG CAFM (ROOM AIR)
[2024-10-04] VITALS (104 sets, daily range): BP systolic 79–156; BP diastolic 39–93; PULSE 75–138; RESP 5–23; TEMP 97–98.7; O2SAT 96–100
[2024-10-04] MEDS: traMADol HCL 50 MG TABLET PO PRN (04:02)
[2024-10-04 04:15] LABS: HEMATOCRIT 23.6 % (42-54); MEAN CORPUSCULAR HGB CONC 34.7 g/dL (32.0-36.0); MEAN CORPUSCULAR VOLUME 83.4 fL (79-99); NUCLEATED RED BLOOD CELLS 0.7 % (0.0-0.19); RED BLOOD CELL COUNT(AUTO) 2.83 MIL/uL (4.50-6.20); RED CELL DISTRIBUTION WIDTH 15.9 % (11.0-15.5); WHITE BLOOD COUNT (AUTO) 13.8 K/uL (4.8-10.8)
[2024-10-04 04:39] LABS: INR 1.12 (0.85-1.15); PARTIAL THROMBOPLASTIN TIME 31.4 SEC (26.3-35.5); PROTHROMBIN TIME 12.4 SEC (9.6-11.6)
[2024-10-04 04:42] LABS: MAGNESIUM 2.1 mg/dL (1.80-2.40); PHOSPHORUS 8.2 mg/dL (2.5-4.9); POTASSIUM 5.1 mmol/L (3.5-5.1)
[2024-10-04 04:43] LABS: CREATININE 9.1 mg/dL (0.5-1.3)
[2024-10-04 05:24] LABS: ABG BASE EXCESS 0.2 mmol/L (-2.0-3.0); ABG HCO3 24.8 mmol/L (21.0-28.0); ABG PCO2 40 mmHg (35-48); CARBON MONOXIDE 0.4 % (0.5-1.5); HHb 4.9; PO2, ARTERIAL BG 87.7 mmHg (83.0-108.0); VENT MODE, BG CAFM (ROOM AIR)
--- NOTE | 2024-10-04 06:00 | NUR ---
2238 PATIENT EXTUBATED AT THIS TIME BY RT. PT TOLERATED WEENING TRIALS AND COMPLIANT WITH DIRECTIONS, AAOX3. NO CHANGES IN VITALS NOTED AT THIS TIME. 0028 PATIENT NOTED HR 120S-140S NOTIFIED DR. SZYMANSKI AT THIS TIME. ORDER TO CARRY OUT 12 LEAD EKG RECEIVED, READ BACK ENTERED INTO EMR. NO OTHER ORDERS OR CHANGES RECEIVED AT THIS TIME. 0500 PATIENT NOTED WITH COUGHING SPELL, PATIENT BECAME UNRESPONSIVE. BP NOTED TO DROP 80S SYSTOLIC AND RECOVERED WITHIN A FEW SECONDS. PATIENT STATES THIS HAPPENS TO HIM AT HOME HE BECOMES UNRESPONSIVE WITH COUGHING SPELLS AND WHEN NAUSEATED. MD MADE AWARE OF EPISODE NO CHANGES MADE, NO ORDERS RECEIVED AT THIS TIME. PATIENT HR WNL AFTER COUGHING EPISODE. 0700 REPORT AND CARE RENDERED TO Adrienne ORTEGA RN AT THIS TIME.
[2024-10-04] MEDS: EPINEPHrine PF 1MG (1:1,000) 10 MG in 0.9% NACL 250ML 240 ML IV PRN (06:35)
--- NOTE | 2024-10-04 06:46 | PN ---
endocrinology progress note Date of Service: 10/04/2024 HISTORY OF PRESENT ILLNESS: s/p CABG and extubated now. patient is on insulin drip. home regimen: novolin 70/30 insulin 70 units twice per day. glucose are controlled. REVIEW OF SYSTEMS extubated now PAST MEDICAL HISTORY: Chronic kidney disease Diabetes type 2 Hypertension Hyperlipidemia Obesity PAST SURGICAL HISTORY: Left eye cataract surgery one month ago PAST SOCIAL HISTORY: Patient lives with . Patient denies alcohol tobacco and recreational drug use FAMILY HISTORY: Noncontributory Coded Allergies: No Known Allergies (Unverified Allergy, Unknown, 03/27/22) ASSESSMENT: Hyperosmolar Hyperglycemic Syndrome POA resolved s/p CABG and extubated now. patient is on insulin drip.resolved but glucose are controlled. Uncontrolled Diabetes POA hba1c 12.9% home regimen: novolin 70/30 insulin 70 units twice per day. NSTEMI POA cath shows CAD and s/p CABG Influenza bronchopneumonia with sepsis POA Acute Hypoxemic Respiratory Failure POA Acute on chronic renal failure with concern for ATN POA ON HD Metabolic acidosis POA Lactic acidosis POA CKD stage 4 POA Protein Calorie malnutrition POA PLAN: continue insulin drip and keep glucose less than 180 mg/dl. continue to hold lantus 50 units bid and hold lispro insulin 25 units tid monitor glucose qx1 hourly Vitals/Labs Vital Signs Date Time Temp Pulse Resp B/P (MAP) Pulse Ox O2 Delivery O2 Flow Rate FiO2 10/04/24 06:34 118/65 10/04/24 06:30 99 18 Room Air 10/04/24 06:05 98.8 10/04/24 05:50 10.0 40 10/04/24 04:00 100 Laboratory Tests 10/03/24 16:30 10/03/24 19:21 10/03/24 23:15 10/04/24 03:55 Medications Current Medications Ceftriaxone Sodium 1 gm ONCE ONCE IVPB; Start 09/21/24 at 18:00; Stop 09/21/24 at 18:13; Status DC Azithromycin 250 ml @ 250 mls/hr Q24H IVPB; Start 09/21/24 at 18:00; Stop 09/21/24 at 18:14; Status DC Promethazine HCl/ Codeine 10 ml ONCE ONCE PO; Start 09/21/24 at 18:00; Stop 09/21/24 at 18:01; Status DC Piperacillin Sod/ Tazobactam Sod 3.375 gm ONCE ONCE IVPB Last administered on 09/21/24at 18:35; Start 09/21/24 at 18:30; Stop 09/21/24 at 18:31; Status DC Insulin Human Regular 10 unit ONCE ONCE IV Last administered on 09/21/24at 18:36; Start 09/21/24 at 18:30; Stop 09/21/24 at 18:31; Status DC Metoprolol Tartrate 5 mg ONCE ONCE IV Last administered on 09/21/24at 18:32; Start 09/21/24 at 18:30; Stop 09/21/24 at 18:31; Status DC Heparin Sodium (Porcine) *calculation based on ACTUAL B... AD PRN IV; Start 09/21/24 at 19:30; Stop 09/26/24 at 07:14; Status DC Heparin Sodium/ Dextrose 250 ml @ 0 mls/hr Q6H IV Last administered on 09/25/24at 04:13; Start 09/21/24 at 19:30; Stop 09/26/24 at 18:36; Status DC Sodium Chloride 1,000 ml @ 0 mls/hr ONCE ONCE IV Last administered on 09/21/24at 18:37; Start 09/21/24 at 18:30; Stop 09/21/24 at 18:31; Status DC Ondansetron HCl 4 mg STK-MED ONCE .ROUTE Last administered on 09/21/24at 18:31; Start 09/21/24 at 18:29; Stop 09/21/24 at 18:29; Status DC Oseltamivir Phosphate 75 mg ONCE ONCE PO Last administered on 09/21/24at 18:45; Start 09/21/24 at 19:00; Stop 09/21/24 at 19:01; Status DC Acetaminophen 650 mg Q6H PRN PO; Start 09/21/24 at 19:30; Stop 10/03/24 at 12:53; Status DC Acetaminophen 650 mg Q4H PRN PO Last administered on 09/30/24at 01:32; Start 09/21/24 at 19:30; Stop 10/03/24 at 12:53; Status DC Guaifenesin/ Dextromethorphan 10 ml Q4H PRN PO Last administered on 09/23/24at 22:06; Start 09/21/24 at 19:30; Stop 10/03/24 at 12:53; Status DC Albuterol 1 udvial [id number] IH Last administered on 09/25/24at 06:43; Start 09/21/24 at 22:00; Stop 09/25/24 at 09:59; Status DC Famotidine 10 mg Q48H PO; Start 09/21/24 at 19:30; Stop 09/21/24 at 20:00; Status DC Nitroglycerin 0.5 inch Q8H TD Last administered on 09/25/24at 12:44; Start 09/21/24 at 19:30; Stop 09/27/24 at 10:34; Status DC Piperacillin Sod/ Tazobactam Sod 50 ml @ 12.5 mls/hr Q12H IV Last administered on 09/22/24at 20:43; Start 09/21/24 at 21:00; Stop 09/23/24 at 08:06; Status DC Sodium Chloride 1,000 ml @ 100 mls/hr Q10H IV Last administered on 09/23/24at 12:53; Start 09/21/24 at 19:30; Stop 09/27/24 at 10:34; Status DC Oseltamivir Phosphate 75 mg DAILY PO Last administered on 09/23/24at 08:38; Start 09/22/24 at 09:00; Stop 09/23/24 at 13:29; Status DC Doxycycline Hyclate 100 mg BID PO Last administered on 09/30/24at 20:53; Start 09/21/24 at 21:00; Stop 09/30/24 at 23:59; Status DC Aspirin 81 mg DAILY PO Last administered on 10/02/24at 09:28; Start 09/22/24 at 09:00; Stop 10/22/24 at 08:59 Insulin Human Regular 100 unit/ Sodium Chloride 101 ml @ 0 mls/hr PROTOCOL IV Last administered on 09/21/24at 21:01; Start 09/21/24 at 20:00; Stop 09/23/24 at 21:20; Status DC Famotidine 10 mg DAILY IV Last administered on 09/27/24at 09:09; Start 09/22/24 at 09:00; Stop 09/27/24 at 10:35; Status DC Alprazolam 0.5 mg ONCE ONCE PO Last administered on 09/21/24at 21:44; Start 09/21/24 at 22:00; Stop 09/21/24 at 22:01; Status DC Magnesium Sulfate 50 ml @ 0 mls/hr PROTOCOL PRN IV Last administered on 09/21/24at 23:52; Start 09/22/24 at 00:00; Stop 09/22/24 at 00:04; Status DC Magnesium Sulfate 50 ml @ As Directed STK-MED ONCE IV; Start 09/21/24 at 23:49; Stop 09/21/24 at 23:49; Status DC Sodium Chloride 1,000 ml @ 200 mls/hr PROTOCOL IV; Start 09/22/24 at 00:00; Stop 09/23/24 at 21:23; Status DC Potassium Chloride/Dextrose/ Sod Cl 1,000 ml @ 0 mls/hr AD IV; Start 09/22/24 at 00:00; Stop 09/23/24 at 21:23; Status DC Potassium Chloride 20 meq/ Sodium Chloride 1,010 ml @ 0 mls/hr PROTOCOL IV; Start 09/22/24 at 00:00; Stop 09/23/24 at 21:23; Status DC Magnesium Sulfate 50 ml @ 0 mls/hr PROTOCOL IV; Start 09/22/24 at 00:00; Stop 09/23/24 at 21:23; Status DC Insulin Human Regular 100 unit/ Sodium Chloride 101 ml @ 0 mls/hr PROTOCOL IV; Start 09/22/24 at 00:00; Stop 09/22/24 at 00:03; Status DC Mannitol 49 gm AD IV; Start 09/22/24 at 00:00; Stop 09/22/24 at 00:28; Status DC Dextrose/Sodium Chloride 1,000 ml @ 0 mls/hr AD IV Last administered on 09/22/24at 09:49; Start 09/22/24 at 00:00; Stop 09/23/24 at 21:23; Status DC Methylprednisolone Sodium Succinate 125 mg ONCE ONCE IVP Last administered on 09/22/24at 01:35; Start 09/22/24 at 00:30; Stop 09/22/24 at 00:31; Status DC Methylprednisolone Sodium Succinate 40 mg BID IVP Last administered on 09/26/24at 20:37; Start 09/22/24 at 09:00; Stop 09/27/24 at 10:35; Status DC Mannitol 245 ml @ 0 mls/hr AD IV; Start 09/22/24 at 00:30; Stop 09/22/24 at 20:17; Status DC Atorvastatin Calcium 40 mg HS PO; Start 09/22/24 at 21:00; Stop 09/22/24 at 20:17; Status DC Mannitol 500 ml @ 0 mls/hr AD IV; Start 09/22/24 at 00:30; Stop 09/22/24 at 14:33; Status DC Sodium Chloride 4 ml STK-MED ONCE IH; Start 09/22/24 at 05:59; Stop 09/22/24 at 06:00; Status DC Vitamin B Complex/ Vit C/Folic Acid 1 cap DAILY PO Last administered on 10/02/24at 09:28; Start 09/23/24 at 09:00; Stop 10/23/24 at 08:59 Furosemide 80 mg Q12H IV Last administered on 09/26/24at 13:20; Start 09/22/24 at 21:00; Stop 09/26/24 at 15:22; Status DC Nifedipine 60 mg DAILY PO Last administered on 09/25/24at 08:37; Start 09/23/24 at 09:00; Stop 09/28/24 at 12:01; Status DC Ferrous Sulfate 325 mg DAILY PO Last administered on 10/02/24at 09:30; Start 09/23/24 at 09:00; Stop 10/23/24 at 08:59 Miscellaneous Medication 1 tab DAILY PO; Start 09/23/24 at 09:00; Stop 09/22/24 at 15:56; Status DC Chlordiazepoxide HCl 25 mg Q2H PRN PO Last administered on 09/28/24at 23:59; Start 09/22/24 at 20:30; Stop 09/29/24 at 20:29; Status DC Chlordiazepoxide HCl 50 mg Q1H PRN PO; Start 09/22/24 at 20:30; Stop 09/29/24 at 20:29; Status DC Thiamine HCl 100 mg/Folic Acid 1 mg/Multivitamins/ Minerals 10 ml/ Sodium Chloride 1,011.2 ml @ 100 mls/ hr Q24H IV Last administered on 09/22/24at 20:43; Start 09/22/24 at 20:30; Stop 09/25/24 at 06:37; Status DC Multivitamins Therapeutic 1 tab DAILY PO Last administered on 10/02/24at 09:28; Start 09/23/24 at 09:00; Stop 10/23/24 at 08:59 Pharmacy Profile Note 1 each PROTOCOL PRN MISC; Start 09/22/24 at 20:30; Stop 09/29/24 at 20:29; Status DC Fish Oil 2,000 mg BID PO Last administered on 10/02/24at 20:38; Start 09/22/24 at 21:00; Stop 10/03/24 at 12:53; Status DC Metoprolol Tartrate 12.5 mg BID PO Last administered on 09/24/24at 12:07; Start 09/22/24 at 21:00; Stop 09/24/24 at 16:38; Status DC Insulin Glargine 10 units BID@0730,2100 SQ Last administered on 09/25/24at 20:44; Start 09/22/24 at 21:00; Stop 09/26/24 at 11:15; Status DC Vancomycin HCl 1,000 mg DAILY08 IV; Start 09/23/24 at 08:00; Stop 09/22/24 at 20:26; Status DC Vancomycin HCl 250 ml @ 125 mls/hr Q72H IV Last administered on 09/22/24at 20:48; Start 09/22/24 at 20:30; Stop 09/23/24 at 08:04; Status DC Atorvastatin Calcium 40 mg STK-MED ONCE .ROUTE; Start 09/22/24 at 20:41; Stop 09/22/24 at 20:41; Status DC Sodium Bicarbonate 100 meq ONCE ONCE IV Last administered on 09/23/24at 08:40; Start 09/23/24 at 08:00; Stop 09/23/24 at 08:08; Status DC Cefepime HCl 1 gm Q24H IVPB Last administered on 09/25/24at 08:36; Start 09/23/24 at 08:30; Stop 09/26/24 at 11:14; Status DC Pharmacy Profile Note 1 each ONCE MISC; Start 09/23/24 at 13:00; Stop 09/23/24 at 13:25; Status DC Oseltamivir Phosphate 75 mg QTUTHSA[DIALYSIS] PO; Start 09/23/24 at 16:00; Stop 09/23/24 at 17:04; Status DC Oseltamivir Phosphate 75 mg QTUTHSA[DIALYSIS] PO Last administered on 09/25/24at 16:09; Start 09/23/24 at 22:00; Stop 09/26/24 at 16:32; Status DC Atorvastatin Calcium 20 mg HS PO Last administered on 09/26/24at 20:36; Start 09/23/24 at 21:00; Stop 09/27/24 at 10:38; Status DC Clopidogrel Bisulfate 300 mg ONCE ONCE PO Last administered on 09/23/24at 19:04; Start 09/23/24 at 17:30; Stop 09/23/24 at 17:31; Status DC Clopidogrel Bisulfate 75 mg DAILY PO Last administered on 09/25/24at 08:38; Start 09/24/24 at 09:00; Stop 09/26/24 at 07:14; Status DC Lidocaine HCl 20 ml STK-MED ONCE .ROUTE; Start 09/23/24 at 17:17; Stop 09/23/24 at 17:17; Status DC Heparin Sodium/ Sodium Chloride 500 ml @ As Directed STK-MED ONCE IV; Start 09/23/24 at 17:17; Stop 09/23/24 at 17:18; Status DC Heparin Sodium (Porcine) 1,000 unit STK-MED ONCE .ROUTE; Start 09/23/24 at 17:24; Stop 09/23/24 at 17:24; Status DC Albumin Human 100 ml ONCE ONCE IV Last administered on 09/23/24at 19:53; Start 09/23/24 at 19:30; Stop 09/23/24 at 19:31; Status DC Sodium Chloride 1,000 ml @ 0 mls/hr ONCE IV Last administered on 09/26/24at 12:15; Start 09/23/24 at 19:30; Stop 09/27/24 at 13:51; Status DC Pharmacy Profile Note 1 each ONCE MISC; Start 09/23/24 at 21:30; Stop 09/24/24 at 07:08; Status DC Sodium Bicarbonate 650 mg TID PO Last administered on 09/26/24at 20:36; Start 09/24/24 at 09:00; Stop 09/27/24 at 10:34; Status DC Insulin Human Regular INSULIN SLIDING SCAL... ACHS SQ Last administered on 10/03/24at 05:48; Start 09/24/24 at 07:30; Stop 10/03/24 at 12:53; Status DC Vancomycin HCl 750 mg Q24H IVPB Last administered on 09/24/24at 22:43; Start 09/23/24 at 23:30; Stop 09/25/24 at 06:26; Status DC Fluconazole/ Sodium Chloride 800 mg ONCE ONCE IV; Start 09/24/24 at 14:00; Stop 09/24/24 at 13:50; Status DC Epoetin Moses-epbx 10,000 unit ONCE ONCE SQ Last administered on 09/24/24at 18:43; Start 09/24/24 at 16:00; Stop 09/24/24 at 16:01; Status DC Metoprolol Tartrate 5 mg STK-MED ONCE IV; Start 09/24/24 at 15:57; Stop 09/24/24 at 15:57; Status DC Metoprolol Succinate 50 mg BID PO Last administered on 09/24/24at 19:45; Start 09/24/24 at 21:00; Stop 09/26/24 at 07:14; Status DC Metoprolol Succinate 50 mg STK-MED ONCE PO; Start 09/24/24 at 19:28; Stop 09/24/24 at 19:28; Status DC Gabapentin 100 mg TID PO Last administered on 09/30/24at 14:07; Start 09/24/24 at 21:00; Stop 09/30/24 at 17:37; Status DC Vancomycin HCl 750 mg [id number] IVPB; Start 09/26/24 at 16:00; Stop 10/03/24 at 23:29; Status DC Metoprolol Succinate 100 mg ONCE ONCE PO Last administered on 09/25/24at 08:37; Start 09/25/24 at 08:30; Stop 09/25/24 at 08:31; Status DC Albuterol 1 udvial [id number] IH Last administered on 09/26/24at 11:17; Start 09/25/24 at 10:00; Stop 09/26/24 at 15:22; Status DC Metoprolol Tartrate 50 mg ONCE ONCE PO Last administered on 09/25/24at 16:09; Start 09/25/24 at 15:00; Stop 09/25/24 at 15:01; Status DC Epoetin Moses-epbx 10,000 unit ONCE ONCE SQ Last administered on 09/25/24at 17:52; Start 09/25/24 at 15:00; Stop 09/25/24 at 15:01; Status DC Fluconazole/ Sodium Chloride 200 mg Q24H IV Last administered on 09/26/24at 14:38; Start 09/25/24 at 16:00; Stop 09/27/24 at 10:36; Status DC Ondansetron HCl 4 mg STK-MED ONCE .ROUTE; Start 09/25/24 at 22:35; Stop 09/25/24 at 22:41; Status DC Sodium Chloride 250 ml @ 0 mls/hr Q0M IV; Start 09/25/24 at 23:00; Stop 09/27/24 at 10:34; Status DC Albumin Human 100 ml @ 0 mls/hr AD STAT IV Last administered on 09/25/24at 23:17; Start 09/25/24 at 23:09; Stop 09/25/24 at 23:12; Status DC Norepinephrine 250 ml @ 0 mls/hr AD PRN IV Last administered on 09/26/24at 01:40; Start 09/26/24 at 01:30; Stop 09/27/24 at 10:34; Status DC Ondansetron HCl 4 mg Q6H PRN IVP Last administered on 09/27/24at 08:51; Start 09/26/24 at 01:30; Stop 10/03/24 at 12:53; Status DC Morphine Sulfate 2 mg Q4H PRN IVP; Start 09/26/24 at 01:30; Stop 10/01/24 at 04:29; Status DC Ondansetron HCl 4 mg STK-MED ONCE .ROUTE; Start 09/26/24 at 01:21; Stop 09/26/24 at 01:21; Status DC Norepinephrine 250 ml @ As Directed STK-MED ONCE IV; Start 09/26/24 at 01:22; Stop 09/26/24 at 01:22; Status DC Metoprolol Succinate 25 mg BID PO Last administered on 10/03/24at 08:55; Start 09/26/24 at 09:00; Stop 10/03/24 at 12:53; Status DC Piperacillin Sod/ Tazobactam Sod 3.375 gm Q12H IV Last administered on 10/03/24at 23:37; Start 09/26/24 at 11:30; Stop 10/06/24 at 11:29 Insulin Glargine 15 units BID@0730,2100 SQ Last administered on 09/30/24at 07:03; Start 09/26/24 at 21:00; Stop 09/30/24 at 17:13; Status DC Albuterol 1 udvial [id number] PRN IH; Start 09/26/24 at 15:30; Stop 10/21/24 at 21:59 Oseltamivir Phosphate 75 mg Q24H PO Last administered on 09/27/24at 18:04; Start 09/26/24 at 17:00; Stop 09/27/24 at 17:01; Status DC Magnesium Sulfate 50 ml @ 0 mls/hr PROTOCOL IV; Start 09/26/24 at 18:30; Stop 09/27/24 at 10:25; Status DC Insulin Human Regular 100 unit/ Sodium Chloride 101 ml @ 0 mls/hr PROTOCOL IV Last administered on 09/26/24at 18:36; Start 09/26/24 at 18:30; Stop 09/27/24 at 10:25; Status DC Pantoprazole Sodium 40 mg BID IVP Last administered on 10/03/24at 08:55; Start 09/27/24 at 21:00; Stop 10/03/24 at 12:53; Status DC Pantoprazole Sodium 40 mg ONCE ONCE IVP Last administered on 09/27/24at 12:08; Start 09/27/24 at 12:00; Stop 09/27/24 at 12:01; Status DC Sodium Chloride 1,000 ml @ 0 mls/hr ONCE IV; Start 09/27/24 at 14:30; Stop 09/27/24 at 13:51; Status DC Sodium Chloride 1,000 ml @ 0 mls/hr ONCE IV Last administered on 10/03/24at 17:22; Start 09/27/24 at 15:00; Stop 10/27/24 at 14:59 Heparin Sodium (Porcine) 10,000 unit AD IRRIG Last administered on 10/01/24at 17:18; Start 09/27/24 at 14:00; Stop 10/27/24 at 13:59 Prednisone 20 mg DAILY PO Last administered on 09/30/24at 08:50; Start 09/28/24 at 09:00; Stop 10/01/24 at 08:59; Status DC Iohexol 35,000 mg STK-MED ONCE IV; Start 09/29/24 at 11:19; Stop 09/29/24 at 11:20; Status DC Iohexol 50 ml STK-MED ONCE IV; Start 09/29/24 at 12:17; Stop 09/29/24 at 12:17; Status DC Metoprolol Tartrate 5 mg STK-MED ONCE IV; Start 09/29/24 at 12:23; Stop 09/29/24 at 12:24; Status DC Epoetin Moses-epbx 10,000 unit ONCE ONCE SQ Last administered on 09/29/24at 16:48; Start 09/29/24 at 16:30; Stop 09/29/24 at 16:31; Status DC Albumin Human 100 ml ONCE ONCE IV; Start 09/29/24 at 15:15; Stop 09/29/24 at 16:54; Status DC Epoetin Moses-epbx 10,000 unit [id number] SQ Last administered on 10/01/24at 15:34; Start 10/01/24 at 09:00; Stop 10/31/24 at 08:59 Clopidogrel Bisulfate 75 mg DAILY PO Last administered on 09/30/24at 08:49; Start 09/30/24 at 09:00; Stop 10/01/24 at 08:26; Status DC Atorvastatin Calcium 40 mg HS PO Last administered on 10/03/24at 20:57; Start 09/30/24 at 21:00; Stop 10/30/24 at 20:59 Sodium Bicarbonate 100 meq ONCE ONCE IV Last administered on 09/30/24at 10:28; Start 09/30/24 at 09:00; Stop 09/30/24 at 09:01; Status DC Calcium Carbonate 1,000 mg TID PO Last administered on 10/03/24at 20:57; Start 09/30/24 at 14:00; Stop 10/30/24 at 13:59 Ergocalciferol 50,000 unit ONCE ONCE PO Last administered on 09/30/24at 14:07; Start 09/30/24 at 14:00; Stop 09/30/24 at 14:01; Status DC Insulin Glargine 20 units AM SQ; Start 10/01/24 at 09:00; Stop 09/30/24 at 17:26; Status DC Insulin Glargine 10 units HS SQ; Start 09/30/24 at 21:00; Stop 09/30/24 at 17:26; Status DC Insulin Glargine 30 units HS SQ Last administered on 10/01/24at 19:54; Start 09/30/24 at 21:00; Stop 10/02/24 at 07:19; Status DC Insulin Human Lispro 7 unit TIDAC SQ Last administered on 10/01/24at 16:22; Start 10/01/24 at 07:30; Stop 10/01/24 at 17:01; Status DC Dextrose 50 ml AD PRN IV; Start 09/30/24 at 17:30; Stop 10/01/24 at 08:25; Status DC Glucagon 1 mg AD PRN IM; Start 09/30/24 at 17:30; Stop 10/01/24 at 08:25; Status DC Gabapentin 100 mg DAILY PO Last administered on 10/02/24at 09:28; Start 10/01/24 at 09:00; Stop 10/24/24 at 20:59 Melatonin 5 mg ONCE ONCE PO Last administered on 09/30/24at 23:05; Start 09/30/24 at 23:00; Stop 09/30/24 at 23:01; Status DC Lidocaine HCl 20 ml STK-MED ONCE .ROUTE; Start 10/01/24 at 07:12; Stop 10/01/24 at 07:13; Status DC Iohexol 35,000 mg STK-MED ONCE IV; Start 10/01/24 at 07:12; Stop 10/01/24 at 07:14; Status DC Heparin Sodium (Porcine) 10,000 unit STK-MED ONCE .ROUTE; Start 10/01/24 at 07:12; Stop 10/01/24 at 07:14; Status DC Heparin Sodium/ Sodium Chloride 1,000 ml @ As Directed STK-MED ONCE IV; Start 10/01/24 at 07:12; Stop 10/01/24 at 07:14; Status DC Nitroglycerin 50 mg STK-MED ONCE .ROUTE; Start 10/01/24 at 07:12; Stop 10/01/24 at 07:14; Status DC Fentanyl Citrate 100 mcg STK-MED ONCE .ROUTE; Start 10/01/24 at 07:40; Stop 10/01/24 at 07:40; Status DC Midazolam HCl 2 mg STK-MED ONCE .ROUTE; Start 10/01/24 at 07:40; Stop 10/01/24 at 07:40; Status DC Verapamil HCl 5 mg STK-MED ONCE .ROUTE; Start 10/01/24 at 07:59; Stop 10/01/24 at 07:59; Status DC Dextrose 50 ml AD PRN IV; Start 10/01/24 at 08:30; Stop 10/31/24 at 08:29 Glucagon 1 mg AD PRN IM; Start 10/01/24 at 08:30; Stop 10/31/24 at 08:29 Hydralazine HCl 5 mg ONCE ONCE IV Last administered on 10/01/24at 18:26; Start 10/01/24 at 16:30; Stop 10/01/24 at 16:31; Status DC Hydralazine HCl 10 mg Q6H PRN IV; Start 10/01/24 at 16:30; Stop 10/03/24 at 12:53; Status DC Calcium Gluconate 1 gm/Sodium Chloride 100 ml @ 0 mls/hr PROTOCOL IV; Start 10/01/24 at 17:00; Stop 10/03/24 at 12:53; Status DC Insulin Human Lispro 10 unit TIDAC SQ; Start 10/01/24 at 17:00; Stop 10/01/24 at 19:41; Status DC Insulin Human Lispro 15 unit TIDAC SQ Last administered on 10/02/24at 07:01; Start 10/02/24 at 07:30; Stop 10/02/24 at 07:20; Status DC Insulin Glargine 50 units DAILY SQ Last administered on 10/02/24at 09:41; Start 10/02/24 at 07:30; Stop 10/02/24 at 16:53; Status DC Insulin Human Lispro 20 unit TIDAC SQ Last administered on 10/02/24at 11:48; Start 10/02/24 at 11:30; Stop 10/02/24 at 16:53; Status DC Cefazolin Sodium 2 gm ONCALL IVPB; Start 10/02/24 at 10:30; Stop 10/03/24 at 13:09; Status DC Insulin Glargine 50 units BID SQ Last administered on 10/03/24at 09:02; Start 10/02/24 at 21:00; Stop 10/03/24 at 12:53; Status DC Insulin Human Lispro 25 unit TIDAC SQ Last administered on 10/02/24at 17:17; Start 10/02/24 at 17:00; Stop 10/03/24 at 12:53; Status DC Cefazolin Sodium 1 gm STK-MED ONCE .ROUTE; Start 10/03/24 at 07:24; Stop 10/03/24 at 07:29; Status DC Heparin Sodium/ Sodium Chloride 500 ml @ As Directed STK-MED ONCE IV; Start 10/03/24 at 07:24; Stop 10/03/24 at 07:29; Status DC Papaverine HCl 60 mg STK-MED ONCE .ROUTE; Start 10/03/24 at 07:24; Stop 10/03/24 at 07:29; Status DC Epinephrine HCl 10 mg/Sodium Chloride 250 ml @ 0 mls/hr AD PRN IV Last administered on 10/04/24at 06:35; Start 10/03/24 at 10:00; Stop 11/02/24 at 09:59 Norepinephrine Bitartrate 250 ml @ 0 mls/hr AD PRN IV; Start 10/03/24 at 10:00; Stop 11/02/24 at 09:59 Aminocaproic Acid 44963 mg/Sodium Chloride 480 ml @ 0 mls/hr AD PRN IV; Start 10/03/24 at 10:00; Stop 11/02/24 at 09:59 Lidocaine HCl/ Dextrose 250 ml @ As Directed STK-MED ONCE IV; Start 10/03/24 at 11:16; Stop 10/03/24 at 11:17; Status DC Nitroglycerin/ Dextrose 1 ml @ As Directed STK-MED ONCE .ROUTE; Start 10/03/24 at 11:16; Stop 10/03/24 at 11:17; Status DC Dextrose 50 ml STK-MED ONCE IV; Start 10/03/24 at 11:44; Stop 10/03/24 at 11:44; Status DC Cefazolin Sodium 2 gm STK-MED ONCE .ROUTE; Start 10/03/24 at 12:52; Stop 10/03/24 at 12:52; Status DC Acetaminophen 1,000 mg Q6H6 IV Last administered on 10/04/24at 05:17; Start 10/03/24 at 18:00; Stop 10/04/24 at 17:59 Aspirin 81 mg ONCE ONCE NG Last administered on 10/03/24at 17:31; Start 10/03/24 at 17:00; Stop 10/03/24 at 17:02; Status DC Docusate Sodium 100 mg BID PO; Start 10/03/24 at 21:00; Stop 11/02/24 at 20:59 Lactulose 20 gm BID PRN PO; Start 10/03/24 at 13:00; Stop 11/02/24 at 12:59 Atorvastatin Calcium 40 mg HS PO; Start 10/03/24 at 21:00; Stop 10/03/24 at 12:58; Status DC Magnesium Hydroxide 30 ml DAILY PRN PO; Start 10/03/24 at 13:00; Stop 11/02/24 at 12:59 Dexmedetomidine/ Sodium Chloride 400 mcg PROTOCOL IV; Start 10/03/24 at 13:00; Stop 10/04/24 at 12:59 Acetaminophen 650 mg Q6H PRN PO; Start 10/03/24 at 13:00; Stop 11/02/24 at 12:59 Protamine Sulfate 250 mg STK-MED ONCE IV; Start 10/03/24 at 12:54; Stop 10/03/24 at 12:55; Status DC Lidocaine HCl 100 mg STK-MED ONCE .ROUTE; Start 10/03/24 at 12:55; Stop 10/03/24 at 12:55; Status DC Heparin Sodium (Porcine) 10,000 unit STK-MED ONCE .ROUTE; Start 10/03/24 at 12:55; Stop 10/03/24 at 12:55; Status DC Epinephrine HCl 1 mg STK-MED ONCE .ROUTE; Start 10/03/24 at 12:55; Stop 10/03/24 at 12:55; Status DC Sodium Bicarbonate 200 ml @ As Directed STK-MED ONCE .ROUTE; Start 10/03/24 at 12:55; Stop 10/03/24 at 12:55; Status DC Norepinephrine Bitartrate 4 mg STK-MED ONCE IV; Start 10/03/24 at 12:55; Stop 10/03/24 at 12:55; Status DC Fentanyl Citrate 1,000 mcg STK-MED ONCE IJ; Start 10/03/24 at 12:55; Stop 10/03/24 at 12:55; Status DC Propofol 200 mg STK-MED ONCE IV; Start 10/03/24 at 12:55; Stop 10/03/24 at 12:56; Status DC Midazolam HCl 2 mg STK-MED ONCE .ROUTE; Start 10/03/24 at 12:55; Stop 10/03/24 at 12:56; Status DC Rocuronium [place] 50 mg STK-MED ONCE .ROUTE; Start 10/03/24 at 12:56; Stop 10/03/24 at 12:56; Status DC Etomidate 20 mg STK-MED ONCE .ROUTE; Start 10/03/24 at 12:59; Stop 10/03/24 at 13:00; Status DC Sodium Chloride 1,000 ml @ 10 mls/hr ONCE IV; Start 10/03/24 at 13:00; Stop 10/04/24 at 12:59 Sodium Chloride 10 ml Q8H PRN IVP; Start 10/03/24 at 13:00; Stop 11/02/24 at 12:59 Morphine Sulfate 0.5 mg Q2H PRN IV Last administered on 10/03/24at 20:56; Start 10/03/24 at 13:00; Stop 10/04/24 at 12:59 Morphine Sulfate 1 mg Q2H PRN IV; Start 10/03/24 at 13:00; Stop 10/04/24 at 12:59 Acetaminophen 650 mg Q4H PRN RC; Start 10/03/24 at 13:00; Stop 11/02/24 at 12:59 Ondansetron HCl 4 mg Q6H PRN IV Last administered on 10/04/24at 05:17; Start 10/03/24 at 13:00; Stop 11/02/24 at 12:59 Sodium Chloride 500 ml @ 0 mls/hr AD IV; Start 10/03/24 at 13:00; Stop 11/02/24 at 12:59 Nitroglycerin/ Dextrose 0 ml @ 0 mls/hr AD IV; Start 10/03/24 at 13:00; Stop 10/06/24 at 12:59 Propofol 100 ml @ 0 mls/hr AD PRN IV; Start 10/03/24 at 13:00; Stop 10/07/24 at 12:59 Norepinephrine Bitartrate 8 mg/ Dextrose 250 ml @ 0 mls/hr AD PRN IV; Start 10/03/24 at 13:00; Stop 10/03/24 at 13:03; Status DC Epinephrine HCl 10 mg/Sodium Chloride 250 ml @ 0 mls/hr AD PRN IV; Start 10/03/24 at 13:00; Stop 10/03/24 at 13:03; Status DC Aminocaproic Acid 54302 mg/Sodium Chloride 310 ml @ 25 mls/hr AD IV; Start 10/03/24 at 13:00; Stop 10/03/24 at 13:03; Status DC Calcium Gluconate 1 gm/Sodium Chloride 60 ml @ 200 mls/hr AD PRN IV Last administered on 10/04/24at 06:29; Start 10/03/24 at 13:00; Stop 11/02/24 at 12:59 Magnesium Sulfate 50 ml @ 12.5 mls/hr AD PRN IV Last administered on 10/03/24at 17:21; Start 10/03/24 at 13:00; Stop 11/02/24 at 12:59 Potassium Chloride 100 ml @ 100 mls/hr AD PRN IV; Start 10/03/24 at 13:00; Stop 11/02/24 at 12:59 Potassium Phosphate 250 ml @ 42 mls/hr AD PRN IV; Start 10/03/24 at 13:00; Stop 11/02/24 at 12:59 Albumin Human 250 ml @ 0 mls/hr AD PRN IV Last administered on 10/03/24at 17:23; Start 10/03/24 at 13:00; Stop 10/03/24 at 17:24; Status DC Acetaminophen 650 mg Q4H PRN PO; Start 10/03/24 at 13:00; Stop 11/02/24 at 12:59 Insulin Human Regular 100 unit/ Sodium Chloride 100 ml @ 0 mls/hr AD IV Last administered on 10/03/24at 17:38; Start 10/03/24 at 13:00; Stop 10/05/24 at 12:59 Cefazolin Sodium 2 gm Q8H IVPB Last administered on 10/04/24at 04:02; Start 10/03/24 at 18:00; Stop 10/04/24 at 10:01 Tramadol HCl 25 mg Q6H PRN PO; Start 10/03/24 at 13:00; Stop 10/08/24 at 12:59 Tramadol HCl 50 mg Q6H PRN PO Last administered on 10/04/24at 04:02; Start 10/03/24 at 13:00; Stop 10/08/24 at 12:59 Famotidine 20 mg Q48H IV Last administered on 10/03/24at 20:57; Start 10/03/24 at 21:00; Stop 11/02/24 at 20:59 Sodium Bicarbonate 50 meq AD PRN IV Last administered on 10/03/24at 20:57; Start 10/03/24 at 13:00; Stop 10/06/24 at 12:59 Dextrose 50 ml AD PRN IV; Start 10/03/24 at 13:00; Stop 10/03/24 at 13:04; Status DC Glucagon 1 mg AD PRN IM; Start 10/03/24 at 13:00; Stop 10/03/24 at 13:04; Status DC Amiodarone HCl 150 mg STK-MED ONCE .ROUTE; Start 10/03/24 at 13:45; Stop 10/03/24 at 13:46; Status DC Potassium Chloride 300 ml @ As Directed STK-MED ONCE IV; Start 10/03/24 at 14:24; Stop 10/03/24 at 14:25; Status DC Heparin Sodium (Porcine) 10,000 unit STK-MED ONCE .ROUTE; Start 10/03/24 at 14:28; Stop 10/03/24 at 14:29; Status DC Lidocaine HCl 100 mg STK-MED ONCE .ROUTE; Start 10/03/24 at 14:30; Stop 10/03/24 at 14:30; Status DC Vasopressin 20 units STK-MED ONCE .ROUTE; Start 10/03/24 at 14:39; Stop 10/03/24 at 14:39; Status DC Albumin Human 500 ml @ As Directed STK-MED ONCE IV; Start 10/03/24 at 15:20; Stop 10/03/24 at 15:20; Status DC Albumin Human 250 ml @ As Directed STK-MED ONCE IV; Start 10/03/24 at 15:58; Stop 10/03/24 at 15:58; Status DC Cefazolin Sodium 3 gm STK-MED ONCE IVPB Last administered on 10/03/24at 13:15; Start 10/03/24 at 13:15; Stop 10/03/24 at 17:02; Status DC Papaverine HCl 60 mg STK-MED ONCE IRRIG Last administered on 10/03/24at 13:45; Start 10/03/24 at 13:45; Stop 10/03/24 at 17:02; Status DC Cefazolin Sodium 1 gm STK-MED ONCE IRRIG Last administered on 10/03/24at 13:45; Start 10/03/24 at 13:45; Stop 10/03/24 at 17:02; Status DC Vasopressin 20 units/Sodium Chloride 100 ml @ 0 mls/hr PROTOCOL IV Last administered on 10/04/24at 06:34; Start 10/03/24 at 19:30; Stop 11/02/24 at 19:29 Albumin Human 100 ml ONCE ONCE IV; Start 10/04/24 at 06:30; Stop 10/04/24 at 06:31; Status DC HENNA PATEL MD Oct 04, 2024 06:46
[2024-10-04] MEDS: ALBUMIN HUMAN 25% 100 ML IV.SOLN IV ONE (07:24)
--- NOTE | 2024-10-04 08:00 | PN ---
[facility] PROGRESS NOTE Date Patient Seen: Oct 04, 2024 Time of Visit: 07:59 Supervising Physician: [Dr. Price] Primary Care Physician: Gama Acosta Outpatient Specialists: [ ] Inpatient Consults: Cardiology, nephrology and critical care team PROBLEM LIST: Septic shock, not POA, on pressors Acute Hypoxemic Respiratory Failure, POA, resolved Acute on chronic CHF with reduced EF of 35 40% Nstemi, POA, s/p CABG 10/03/[address] Page Community acquired influenza A viral pneumoniae w/ superimposed Bilateral bacterial Pneumonia, POA, treated Sepsis Due To Bilateral Pneumonia And Influenza A Infection, POA, improved Severe transaminitis 2/2 shocked liver not POA ESRD with new onset hemodialysis this admission s/p Rt permacath Recurrent Dka w/ reopening of AGAP and ketones, resolved Acute Metabolic Acidosis 2/2 DkA and SAURABH , POA, improved Hyperkalemia In The Context Of Chronic Kidney Injury, Poa Morbid Obesity BMI 40.5 INTERVAL HISTORY: 09/22/2024: At the time my evaluation, the patient was in the emergency department awaiting bed assignment. The staff nurse reports no acute events overnight. The patient was on a Oxymizer with optimal SpO2. He was normotensi ve without the need for pressor therapy. There was no complaint of chest pain. There was no abdominal pain, nausea vomiting or diarrhea. The patient continued on a insulin drip per the DKA protocol. He was started on antibiotic and antiviral therapy for management of his condition. Review of labs today showed no major concern on CBC. Chemistry panel did show a sodium of 135, chloride of 100 and a CO2 of 20 with a anion gap of 15. Blood glucose remains elevated in the 300s. No new complaint. 09/23- saw patient and ED 13 awake alert and oriented x3. 2D echo at bedside being performed. Patient has been afebrile heart rate of 110, blood pressure 116/63 with respiratory rate of 20 saturating 97% with 7 L via nasal cannula oximizer. Urine output 1.4 L in the last 24 hours. On laboratory WBCs are 11.4 H&H trending down 7.6/23.1 with a platelet count that is 178 K. on chemistry sodium 136 potassium of 3.7 chloride 100 carbon dioxide of 19 BUN 106. Creatinine of 8.6 and GFR of 7. Per Dr Armenta pt scheduled for a Mitesh hemodialysis catheter per IR today. Pt continues with Tamiflu, Doxy, Cefepime and MRSA coverage will be added w/ vanco due to suspected MRSA superimposed pneumonia on Influenza pneumonia. On CT chest, abdomen and pelvis shows Acute appearing infiltrates in both lung bases consistent with pneumoniae. No acute finding in the abdomen or pelvis. Del Cid catheter in good position in the urinary bladder. We will continue to follow Neprhology recommendations. 09/24 patient was seen and examined at bedside with primary nurse present. Patient to receive1 unit PRBCs hemoglobin this a.m. 6.8. Continue to monitor closely. Patient to continue on IV antibiotics. Patient's troponin levels trending down. We will continue to follow recommendations of Cardiology. Patient remains hypoxic requiring supplemental oxygen via nasal cannula at L. Patient states does not use home oxygen. Patient is to continue on heparin drip. Patient to continue on IV steroids. Patient's echocardiogram revealed EF of 35-40%. Patient's blood cultures have been negative x2 days. Patient remains high risk for decompensation. 09/25 patient was seen and examined at bedside with mother present. At time of visit patient is currently on room air has been weaned off oxygen. Yesterday patient was on 5 L. As per patient is tolerating room air well. Patient denies any chest pain or shortness of breadth, however does report shortness of breath upon minimal exertion. Patient remains on heparin drip. Patient is still currently pending coronary CT to be completed, further recommendations by Cardiology to follow once examined has been completed. Patient to continue on hemodialysis per Nephrology's recommendations. 09/26/24-patient is awake alert and oriented x3. He requires Levophed at 0 point 4 micrograms/kilogram per minute for blood pressure support. He was brought into the ICU overnight due to hypotension and elevated liver enzymes. Current blood pressure of 129/74 heart rate in the 80s respiratory rate of 19 saturating 100% with 7 L via Oxymizer and afebrile. As per RN she is weaning Levophed. Urine output was 100 mL in the last 24 hours he received hemodialysis today with 3.6 L out and had one bowel movement. WBCs spiked up this morning from 17.6224.2 H&H 8.6/25.4 and platelet count is normal 291 K. neutrophils 79.5. Suspect patient aspirated in the episode of hypotension due to increased pu lmonary infiltrates to right side and spike in white count and temperature. Patient was panculture and cefepime changed to Zosyn to cover for aspiration pneumonia. On chest x-ray patient with a extensive bilateral infiltrates unchanged. No pneumothorax. Chemistries sodium of 130 potassium is 6.2 chloride of 90 carbon dioxide of 17 with a BUN of 119 and creatinine 9.6 and GFR of six liver enzymes raised AST of 6752 ALT of 4302, alkaline phosphatase of 233 likely from shock liver procalcitonin elevated at 24.31 decreased from admission wishes 70. On repeat BNP patient has a sodium of 134 potassium of 3.5 chloride of 91 carbon dioxide 26 with a anion gap of 17 and ketones of 1.4 we will need to restart insulin drip per DKA protocol. 09/27/24-pt is awake alert and oriented x 3. He is hemodynamically stable and off pressors. He denies any chill, chest pain or increased sob at rest. He does report sob on exertion and reports poor appetite. He is due for HD treatment today. Per RN no major overnight events and he has been afebrile. WBC's are trending down now 20.4, H&H is 8.9/26.3 and platelet count is 220 K. chemistry patient had a sodium of 134 potassium is normal 4.6 chloride of 92 carbon dioxide 24, AGAP has closed, liver enzymes severely elevated consistent with shocked lover but we will order us of abdomen to assess Liver and Gallbladder. Ketones of 0.2. We have discontinued DKA protocol and pt ,may be downgraded from ICU today. 2/2 patient was seen and examined at bedside with family present. Patient is awake alert able to answer simple questions appropriately. Patient is on room air appears to be tolerating well. Patient has remained hemodynamically stable. Patient denies any chest pain or shortness of breadth. Denies any nausea vomiting or abdominal pain. Most per primary nurse no acute events to be reported. We will continue to follow recommendations from Nephrology and Cardiology appreciate assistance. We will continue to monitor patient closely 2/3 patient was seen and examined at bedside with family present. Patient remains on room air tolerating well. Patient is scheduled for coronary CT today we will follow recommendations from Cardiology. Patient to continue on hemodialysis per Nephrology's recommendations. Patient's WBCs trending down today 18.6 yesterday 22.0. Patient to continue on IV antibiotics. We will continue to monitor patient closely. 09/[address] coronary angiogram which revealed 90% stenosis of the LAD as well as 90% stenosis of the left circumflex. Per bedside nurse, patient was offered stent placement, however refused and is wanting to pursue this as an outpatient. Patient's blood sugar remains elevated in for 0s, we will adjust insulin as indicated. Pro mallory significantly decreased from 70 down to 6. Blood and urine cultures remain negative, sputum cultures growing Dunia. His liver enzymes remain elevated but significantly downtrended. Patient is pending AV fistula for hemodialysis, however CTS is deferring this as an outpatient in order to prioritize his CAD management. 10/01 Patient had abnormal LHC and is referred for CABG. His abdominal U/S was negative for gallstones or ductal dilation. Carotid doppler WNL. CXR consistent with pulmonary venous congestion. Continues on dialysis with temp ca th per nephrology, pending AV graft by CTS. Blood sugar is persistently elevated, insulin adjusted per primary. 10/02 Patient is evaluated at bedside. Continues with dialysis as scheduled. Patient had endocrinology consult with the adjustment in his insulin regimen. Patient is pending CABG in a.m. He denies any chest pain. 10/03 Patient is evaluated at bedside. Insulin dosing adjusted per endocrinology with improvement in glucose readings. Continues with dialysis as scheduled. P ending CABG today, no current complaints. 10/04 patient was admitted at bedside. He was status post CABG yesterday by Dr. Page. He was brought in the ICU postop for medical management. At the time of my visit. Patient had been extubated and saturating well on aerosol mask at 40% FiO2. He is awake, alert, following commands. Continues on vasopressin and epinephrine. Patient also undergoing an extra dialysis session today which just over 1.2L removed. Per bedside nurse had to initiate levophed temporarily d/t low blood pressure. Chest tube in place with 1260ml of output per chart. His hemoglobin dropped to 5.5 overnight, did receive blood products with improvement to 9.0. REVIEW OF SYSTEMS: 12 point ROS reviewed with patient. Pertinent positives mentioned above. Otherwise negative. PHYSICAL EXAM: GENERAL: alert, weak, awake oriented x 3 HEENT: EOMI, Sclera non icteric, moist mucosa NECK: Supple, no JVD, trachea midline LUNGS: coarse rhonchi breath sounds bilaterally. No wheezes HEART: Regular rate and rhythm. Normal S1 and S2, without murmurs ABD: Abdomen soft, nontender. Bowel sounds present EXT: No clubbing cyanosis or edema NEURO: Alert and oriented to person, follows commands Vital Signs (last 8hr) Date Time Temp Pulse Resp B/P (MAP) Pulse Ox O2 Delivery O2 Flow Rate FiO2 10/04/24 07:49 97.3 10/04/24 07:45 98 18 117/66 Venti Mask 10.0 40 10/04/24 07:30 98 18 100/62 Venti Mask 10.0 40 10/04/24 07:15 98 18 124/65 Venti Mask 10.0 40 10/04/24 07:00 98 18 120/65 Venti Mask 10.0 40 10/04/24 06:45 99 18 124/62 Venti Mask 10.0 40 10/04/24 06:34 118/65 10/04/24 06:30 99 18 99/57 Venti Mask 10/04/24 06:30 97 13 97 137/67 (90) 10/04/24 06:15 97 12 100 115/63 (80) 10/04/24 06:15 98 18 105/66 Venti Mask 10.0 40 10/04/24 06:05 98.8 99 18 120/62 Room Air 10/04/24 06:00 97 16 98 105/57 (73) 10/04/24 05:50 98.8 99 16 117/59 Venti Mask 10.0 40 10/04/24 05:45 100 13 105/72 (83) 97 131/66 (87) 10/04/24 05:30 105 9 98 91/49 (63) 10/04/24 05:15 104 12 97 123/57 (79) 10/04/24 05:00 103 12 99 155/64 (94) 10/04/24 04:45 124 15 129/93 (105) 98 117/63 (81) 10/04/24 04:30 124 16 97 126/66 (86) 10/04/24 04:15 125 15 98 130/66 (87) 10/04/24 04:00 127 11 98 84/56 (65) 10/04/24 04:00 100 Aerosol Mask+ 10 40 10/04/24 03:45 127 12 120/82 (95) 99 111/62 (78) 10/04/24 03:30 128 15 98 107/62 (77) 10/04/24 03:30 98.8 Aerosol Face Mask 10/04/24 03:15 133 16 100 109/65 (80) 10/04/24 03:00 136 17 100 118/65 (82) 10/04/24 02:45 135 16 111/70 (84) 98 129/67 (87) 10/04/24 02:30 137 10 100 101/60 (74) 10/04/24 02:15 135 15 100 112/62 (79) 10/04/24 02:00 138 16 98/66 (77) 100 106/62 (77) 10/04/24 01:45 138 17 91/60 (70) 99 91/54 (66) 10/04/24 01:30 138 19 99 96/56 (69) 10/04/24 01:15 137 17 100 96/55 (69) 10/04/24 01:00 136 15 100 132/68 (89) 10/04/24 00:45 136 10 118/83 (95) 99 141/69 (93) 10/04/24 00:30 137 16 99 135/67 (89) 10/04/24 00:15 135 12 99 111/59 (76) 10/04/24 00:00 100 Aerosol Mask+ 10 40 10/04/24 00:00 134 11 99 126/65 (85) LABS: Hematology Labs: Test 10/04/24 03:55 10/03/24 05:09 Range/Units White Blood Count 13.8 #H 4.8-10.8 K/uL Red Blood Count 2.83 #L 4.50-6.20 MIL/uL Hemoglobin 8.2 L 14.0-18.0 g/dL Hematocrit 23.6 L 42-54 % Mean Corpuscular Volume 83.4 79-99 fL Mean Corpuscular Hemoglobin 29.0 27.0-33.0 pg Mean Corpuscular Hemoglobin Concent 34.7 32.0-36.0 g/dL Red Cell Distribution Width 15.9 H 11.0-15.5 % Platelet Count 79 L 130-400 K/uL Mean Platelet Volume 11.8 H 7.5-10.5 fL Nucleated Red Blood Cells 0.7 H 0.0-0.19 % Immature Granulocyte % (Auto) 3.6 H 0-1 % Neutrophils (%) (Auto) 78.2 H 40.0-77.0 % Lymphocytes (%) (Auto) 6.8 L 21.0-51.0 % Monocytes (%) (Auto) 5.3 3.0-13.0 % Eosinophils (%) (Auto) 5.9 0.0-8.0 % Basophils (%) (Auto) 0.2 0.0-5.0 % Neutrophils # (Auto) 7.8 H 1.8-7.7 K/uL Lymphocytes # (Auto) 0.7 L 1.0-4.8 K/uL Monocytes # (Auto) 0.5 0.1-1.0 K/uL Eosinophils # (Auto) 0.59 0.00-0.70 K/uL Basophils # (Auto) 0.02 0.00-0.20 K/uL Absolute Immature Granulocyte (auto 0.36 0-1 K/uL Platelet Morphology PLT CLUMPS PRESENT Chemistry Labs: Test 10/04/24 05:06 10/04/24 03:55 10/03/24 05:09 Range/Units Whole Blood Glucose 160 H 70-110 MG/DL Sodium Level 148 H 136-145 mmol/L Potassium Level 5.1 3.5-5.1 mmol/L Chloride Level 105 101-111 mmol/L Carbon Dioxide Level 29 21-32 mmol/L Blood Urea Nitrogen 70 H 7-18 mg/dL Creatinine 9.1 *H 0.5-1.3 mg/dL Glomerular Filtration Rate Calc 7 >90 mL/min Random Glucose 161 H 70-105 mg/dL Total Calcium 8.9 8.5-10.1 mg/dL Ionized Calcium 1.11 L 1.16-1.32 MMOL/L Phosphorus Level 8.2 H 2.5-4.9 mg/dL Magnesium Level 2.10 1.80-2.40 mg/dL Hemoglobin A1c 12.0 H 4.0-6.0 % Estimated Average Glucose (eAG) 298 H 70-126 mg/dL Total Bilirubin 0.5 0.2-1.0 mg/dL Aspartate Amino Transf (AST/SGOT) 41 H 10-37 U/L Alanine Aminotransferase (ALT/SGPT) 638 #*H 12-78 U/L Alkaline Phosphatase 197 H 50-136 U/L B-Type Natriuretic Peptide 2810 H 0-100 pg/mL Total Protein 5.6 L 6.0-8.3 g/dL Albumin 2.1 L 3.5-5.0 g/dL Triglycerides Level 118 30-200 mg/dL Cholesterol Level 191 <200 mg/dL LDL Cholesterol 134 H 0-99 mg/dL HDL Cholesterol 36 29-71 mg/dL Coagulation Labs: Test 10/04/24 03:55 Range/Units Prothrombin Time 12.4 #H 9.6-11.6 SEC Prothromb Time International Ratio 1.12 0.85-1.15 Activated Partial Thromboplast Time 31.4 26.3-35.5 SEC DIAGNOSTICS / RADIOLOGY RESULTS: CHEST 1VW CLINICAL HISTORY: s/p CABG COMPARISON: 10/13/2024 TECHNIQUE: Single view of the chest was obtained. FINDINGS: There has been interval extubation. The remaining supporting lines and tubes are stable. There is mild pulmonary edema or congestive failure. There is worsening retrocardiac left lower lobe increased opacification. The cardiomediastinal silhouette and bony structures stable. IMPRESSION: Slightly worsened airspace disease status post extubation. PLAN HD per Neprhology Wean off pressors continue Zosyn follow cultures Ketones normalized DC insulin gtt monitor liver enzymes avoid hepatotoxic medications hold Statins Chest tube management per CTS NEURO: Minimize central acting medications as possible. Fall Precautions. Well lighted room through the day and minimize interruptions through the night to prevent acute delirium. PULMONARY: Supplemental 02 as needed DuoNebs every 6 hours Robitussin 10 mL q.4h p.r.n. for cough Titrate Fio2 to keep Spo2 > or = 90% DuoNebs and CPT as needed IS hourly while awake for pulmonary hygiene Out of bed to chair as tolerated CARDIOVASCULAR: Follow hemodynamics. Titrate vasopressor to keep MAP >65 or systolic blood pressure >95mmHg Aspirin 81 mg p.o. daily Atorvastatin 40 mg p.o. at bedtime Serial troponin level [employer] and CTS consulted DIPS: vasopressin epinephrine Insulin gtt per DKA protocol Levophed weaning LINES: PIV HD Permacath to rt subclavian GI & NUTRITION: Continue nutritional support Aspirations precautions Prokinetic agents and laxatives as needed Keep patient NPO Renal diet KIDNEYS & ELECTROLYTES: Strict monitoring of intake and output Nephrology is consulted Obtain UA Daily weights Avoid nephrotoxic agents Monitor electrolytes and replace as needed Goal urine output of 30mL/hr or 0.5mL/kg/hr Urine output: [ ] Fluid Balance: [ ] HD per nephrology ENDOCRINE: Maintain blood glucose between 100-180 at all times. Insulin sliding scale for blood glucose management Insulin drip per DKA protocol INFECTIOUS DISEASE: Trend temperature. Ritter-culture if febrile. Micro: Blood cultures resp cultures panculture 09/26/24 Antibiotics: Zosyn 3.375 g IV every 8 hours and doxycycline 100 mg IV every 12 hours HEMATOLOGY & COAGULATION: Monitor H&H. Keep Hgb > 7 Transfuse 1 unit of PRBC for Hgb < 7 Transfuse 1 pack of platelets of platelets < 20, 000 Watch for any signs and symptoms of bleeding SKIN: Pressure ulcer prevention per facility protocol Rehab: PT/OT Prophylaxis: GI: Famotidine DVT: Heparin Code Status: Full Resuscitation Disposition: icu Other: Total patient care time exceeds 51 minutes excluding all procedures. Case was discussed and seen with my supervising physician. The above plan was formulated and agreed upon. MARIELOS VALLEJO Oct 04, 2024 08:00
[2024-10-04] MEDS: acetaMINOPHEN 325 MG TAB PO PRN (08:59)
[2024-10-04 10:52] LABS: ABG BASE EXCESS 4.6 mmol/L (-2.0-3.0); ABG HCO3 29.3 mmol/L (21.0-28.0); ABG OXYGEN SATURATION 94.9 % (94.0-98.0); ABG PCO2 44 mmHg (35-48); ABG PH 7.438 (7.350-7.450); CARBON MONOXIDE 0.8 % (0.5-1.5); DEVICE COMMENT RN EDDIE; PO2, ARTERIAL BG 84.2 mmHg (83.0-108.0); VENT MODE, BG CAFM (ROOM AIR)
--- NOTE | 2024-10-04 12:40 | NUR ---
HOLD per nurse d/t arterial sheath. PT to eval tomorrow on 10/05/24
[2024-10-04] MEDS: EPOETIN ALFA-EPBX (NON-ESRD) 10,000 UNIT/ML VIAL SQ ONE (13:14)
--- NOTE | 2024-10-04 13:40 | PN ---
[facility] PROGRESS NOTE Date of Service: Oct 04, 2024 Time of Service: 13:39 SUBJECTIVE: This is a 49-year-old male with past medical history of CKD not on hemodialysis, diabetes, hypertension, hyperlipidemia and obesity who presents to the ED for complaints of cough and chest congestion which started last Sunday and getting worse on Sunday. Patient reports coughing up pinkish colored thick phlegm, loss of appetite and on Sunday started not eating unable to sleep, vomiting and having chest pain triggered by persistent coughing he said.Patient reports having soreness due to hard cough he said.Patient reports having sweeling on both lower extremities and started having shortness of breath and today he started having non bloody diarrhea. Nelea was at bedside during my evaluation. Upon arrival to ER a STEMI alert was activated per ER MD and spoke to [employer] collections representative and as per report patient is possibly going to cathlab tomorrow and patient is going to be started on Heparin and Insulin drip. Seen and examined patient in the Er awake,alert and coherent,appears weak looking.Patient denies fever,palpitation ,dizziness ,sore throat and headache. Latest vital signs temperature 98.1, heart rate 108, respiration 30 blood pressure 130/68 saturation 91% on 4 L nasal cannula. Labs: WBC 11.2, hemoglobin 9, hematocrit 27, platelet count 238, neutrophils 88. PH 7.32, CO2 26, PO2 49.6, bicarb 13, PO2 80 base excess -11.3. Sodium 129, potassium 5.9, chloride 93, CO2 19, BUN 88, creatinine 8.2, GFR seven glucose 876 , lactic acid 3.0-3.2, troponin 5531 albumin 2.1. Influenza A positive influenza B negative SARs COVID negative. Strep A negative. Chest x-ray result revealed extensive bilateral mid to lower lung pneumonia right greater than left. First ECG result revealed sinus tachycardia heart rate 121 probable left atrial enlargement repolarization abnormal suggest ischemia diffuse leads ST-elevation consider anterior injury. Second EKG result revealed sinus tachycardia repolarization abnormality suggest ischemia diffuse leads borderline ST elevation anterior leads heart rate 108. While in the ER patient received Tamiflu 75 mg p.o., 1 L NS bolus, Lopressor 5 mg IV, insulin 10 units IV, Zosyn IV, Zofran 4 mg IV and Phenergan codeine 10 mL p.o. we will admit patient in ICU for further medical management. 10/02/24 Patient was seen and examined at bedside. He is alert, awake and oriented. No acute events overnight. He denies chest pain or abdominal pain or palpitations or dizziness or shortness of breath. Dr. Page was consulted for CABG, he will be scheduled for it later this week or next week. Dr. Perry was consulted because of constant hyperglycemia, changed his lantus to 30 and lispro 10U TID , will follow up on the glucose levels next 24 hours.As per his , Lantus never worked for him, will try 70/30 if it is not under control. Remarkable labs are sodium 135, Chloride 97, BUN 85, Creatinine 9.1, glucose 454, corrected calcium 7.4, phosphorous 6.5, his liver function is improving. 10/03/24 Patient was seen and examined at bedside. He is alert, awake and oriented. No acute events overnight. He denies chest pain or abdominal pain or palpitations or dizziness or shortness of breath. He will be taken to surgery this afternoon for CABG by . His blood glucose is improving. We will labs or hemoglobin 9.1, chloride 99, BUN 67, creatinine 8.4, HbA1c 12.0, total calcium improving from 7.4-7.6, BNP 2810, ALT improving from 897 to 638, LDL 134, [place] [address] [place] [address]. Chest x-ray showed clear lungs with right Permcath at the tip of distal superior vena cava level. 10/04/24 patient was seen and examined. Case discussed with the RN. He is doing well he was successfully underwent CABG. He denies any chest pain or shortness for breath, REVIEW OF SYSTEMS CONSTITUTIONAL: Denies fevers, chills, or night sweats. No unintentional weight loss reported. NEUROLOGICAL: Denies headache, amaurosis fugax, motor weakness, sensory deficit, vertigo/spinning sensation, gait abnormalities, or tremors. ENT: No hearing loss, otalgia, otorrhea, rhinitis, rhinorrhea, hoarseness, or sore throat. CARDIOVASCULAR: Denies orthopnea shortness of breaths and chest pain Denies paroxysmal nocturnal dyspnea, palpitations, life-threatening arrhythmias, claudication. PULMONARY: Denies productive cough , pleuritic chest pain and shortness of breaths SLEEP: Complains of unable to sleep Denies morning headaches, daytime somnolence or napping. Denies waking from sleep. Denies knowledge of snoring. GASTROINTESTINAL: Denies loss of appetite, vomiting and diarrhea Denies any type of dysphagia to either liquids or solids. Denies nausea, vomiting, pyrosis, early satiety, abdominal pain, diarrhea, constipation, or changes in stool consistency or caliber. Denies coffee-ground emesis, hematemesis, hematochezia, or melanotic stools. GENITOURINARY: Denies frequency, urgency, nocturia, hematuria or incontinence (Storage/Irritative symptoms.) Low urinary stream, straining to void, urinary intermittency or hesitancy, splitting of the voiding stream, terminal dribbling. ENDOCRINOLOGIC: Denies polyuria, polydipsia, polyphagia or heat/cold intolerances. Patient reports not taking medications for diabetes because he was not eating. HEMATOLOGIC: Denies thrombophilia/previous clots, or coagulopathy/bleeding disorders. ONCOLOGIC: Denies personal history of malignancy. DERMATOLOGIC: Denies rashes or pruritus. PSYCHIATRIC: Denies any suicidal or homicidal ideation. Denies hallucinations. PHYSICAL EXAM GENERAL APPEARANCE: The patient is awake, alert, and oriented appears generally weak NEUROLOGICAL: Cranial nerves II-XII grossly intact. Motor is 5/5 in bilateral upper and lower extremities proximal to distal. No sensory deficits. HEENT: Face is symmetric. Pupils are equal and reactive. Extraocular movements are intact. NECK: Supple. No JVD. No thyromegaly. No submental, submandibular, pre- /postauricular, occipital or supraclavicular lymphadenopathy. CHEST: Normal chest expansion. No Telemetry. LUNGS: . Diminished lung sounds to bilateral lung james CARDIOVASCULAR: Regular. S1 and S2 normal. No appreciable rubs, murmurs or gallops. ABDOMEN: Round and firmed There is no rebound, voluntary guarding, or rigidity. : Deferred. No Del Cid. EXTREMITIES: Bilateral lower extremity edema No clubbing. Good capillary re fill. SKIN: No skin breakdown. Vital Signs (last 8hr) Date Time Temp Pulse Resp B/P (MAP) Pulse Ox O2 Delivery O2 Flow Rate FiO2 10/04/24 13:00 100 16 140/64 (89) 97 149/64 (92) 10/04/24 12:45 101 17 98 153/66 (95) 10/04/24 12:30 101 23 97 152/65 (94) 10/04/24 12:15 103 15 96 149/61 (90) 10/04/24 12:00 100 Aerosol Mask+ 40 10/04/24 12:00 101 11 111/62 (78) 97 135/60 (85) 10/04/24 12:00 97.9 10/04/24 11:45 101 10 97 140/59 (86) 10/04/24 11:30 100 11 97 142/60 (87) 10/04/24 11:15 99 12 97 40 136/60 (85) 10/04/24 11:00 102 11 102/58 (73) 98 126/59 (81) 10/04/24 10:59 97 19 Aerosol, Face Mask 10.0 40 10/04/24 10:45 102 10 97 139/60 (86) 10/04/24 10:30 99 17 141/59 (86) 97 10/04/24 10:15 100 19 95 146/62 (90) 10/04/24 10:00 97 12 101/65 (77) 98 150/64 (92) 10/04/24 09:45 97 11 98 153/64 (93) 10/04/24 09:30 97 16 149/66 (93) 99 10/04/24 09:16 97.2 98 18 149/64 Room Air 10/04/24 09:15 98 6 112/70 (84) 98 147/65 (92) 10/04/24 09:00 110 18 81/51 (61) 100 79/48 (58) 10/04/24 09:00 100 18 80/49 Venti Mask 10.0 40 10/04/24 08:45 103 11 100 89/39 (56) 10/04/24 08:43 100 18 108/60 Venti Mask 10.0 40 10/04/24 08:30 102 18 96/61 Venti Mask 10.0 40 10/04/24 08:30 100 16 100 100/63 (75) 10/04/24 08:15 100 18 112/65 Venti Mask 10.0 40 10/04/24 08:15 102 19 100 93/60 (71) 10/04/24 08:00 100 10 100 97/62 (74) 10/04/24 08:00 100 Aerosol Mask+ 10 40 10/04/24 08:00 98 18 122/67 Venti Mask 10.0 40 10/04/24 07:49 97.3 10/04/24 07:45 99 19 118/92 (101) 100 120/67 (84) 10/04/24 07:45 98 18 117/66 Venti Mask 10.0 40 10/04/24 07:30 98 13 99 130/67 (88) 10/04/24 07:30 98 18 100/62 Venti Mask 10.0 40 10/04/24 07:15 98 18 124/65 Venti Mask 10.0 40 10/04/24 07:15 99 19 100 102/60 (74) 10/04/24 07:00 99 19 100 117/66 (83) 10/04/24 07:00 98 18 120/65 Venti Mask 10.0 40 10/04/24 06:45 99 18 124/62 Venti Mask 10.0 40 10/04/24 06:34 118/65 10/04/24 06:30 99 18 99/57 Venti Mask 10/04/24 06:30 97 13 97 137/67 (90) 10/04/24 06:15 97 12 100 115/63 (80) 10/04/24 06:15 98 18 105/66 Venti Mask 10.0 40 10/04/24 06:05 98.8 99 18 120/62 Room Air 10/04/24 06:00 97 16 98 105/57 (73) 10/04/24 05:50 98.8 99 16 117/59 Venti Mask 10.0 40 10/04/24 05:45 100 13 105/72 (83) 97 131/66 (87) LABS: Laboratory: Test 10/04/24 12:55 10/04/24 10:50 10/04/24 03:55 10/03/24 22:26 Range/Units Whole Blood Glucose 98 70-110 MG/DL Blood Gas Specimen Type Arterial Arterial Blood pH 7.438 7.350-7.450 Arterial Blood Partial Pressure CO2 44 35-48 mmHg Arterial Blood Partial Pressure O2 84.2 83.0-108.0 mmHg Arterial Blood HCO3 29.3 H 21.0-28.0 mmol/L Arterial Blood Oxygen Saturation 94.9 94.0-98.0 % Arterial Blood Base Excess 4.6 H -2.0-3.0 mmol/L Hemoglobin (Blood Gas) 7.4 L 13.5-17.5 g/dL Sodium (Blood Gas) 139 136-145 MMOL/L Bedside Potassium (Blood Gas) 4.1 3.4-4.5 MMOL/L Bedside Chloride (Blood Gas) 100 98-107 MMOL/L Bedside Glucose (Blood Gas) 107 H 65-95 MG/DL Bedside Ionized Calcium (Blood Gas) 1.09 L 1.15-1.33 MMOL/L Bedside Lactic Acid (Blood Gas) 1.90 H 0.36-0.75 MMOL/L Blood Gas Temperature 37.0 35.5-37.0 CELSIUS Blood Gas Flow-by 10.00 0.00-15.00 L/min Blood Gas Vent Mode CAFM ROOM AIR FiO2 40.0 % Blood Gas Specimen Comment RN NUSRAT White Blood Count 13.8 #H 4.8-10.8 K/uL Red Blood Count 2.83 #L 4.50-6.20 MIL/uL Hemoglobin 8.2 L 14.0-18.0 g/dL Hematocrit 23.6 L 42-54 % Mean Corpuscular Volume 83.4 79-99 fL Mean Corpuscular Hemoglobin 29.0 27.0-33.0 pg Mean Corpuscular Hemoglobin Concent 34.7 32.0-36.0 g/dL Red Cell Distribution Width 15.9 H 11.0-15.5 % Platelet Count 79 L 130-400 K/uL Mean Platelet Volume 11.8 H 7.5-10.5 fL Nucleated Red Blood Cells 0.7 H 0.0-0.19 % Prothrombin Time 12.4 #H 9.6-11.6 SEC Prothromb Time International Ratio 1.12 0.85-1.15 Activated Partial Thromboplast Time 31.4 26.3-35.5 SEC Sodium Level 148 H 136-145 mmol/L Potassium Level 5.1 3.5-5.1 mmol/L Chloride Level 105 101-111 mmol/L Carbon Dioxide Level 29 21-32 mmol/L Blood Urea Nitrogen 70 H 7-18 mg/dL Creatinine 9.1 *H 0.5-1.3 mg/dL Glomerular Filtration Rate Calc 7 >90 mL/min Random Glucose 161 H 70-105 mg/dL Total Calcium 8.9 8.5-10.1 mg/dL Ionized Calcium 1.11 L 1.16-1.32 MMOL/L Phosphorus Level 8.2 H 2.5-4.9 mg/dL Magnesium Level 2.10 1.80-2.40 mg/dL Blood Gas Respiration Rate 4.0 min. Blood Gas Tidal Volume 800 ml Blood Gas PEEP 5 cm H2O Test 10/03/24 05:09 Range/Units Immature Granulocyte % (Auto) 3.6 H 0-1 % Neutrophils (%) (Auto) 78.2 H 40.0-77.0 % Lymphocytes (%) (Auto) 6.8 L 21.0-51.0 % Monocytes (%) (Auto) 5.3 3.0-13.0 % Eosinophils (%) (Auto) 5.9 0.0-8.0 % Basophils (%) (Auto) 0.2 0.0-5.0 % Neutrophils # (Auto) 7.8 H 1.8-7.7 K/uL Lymphocytes # (Auto) 0.7 L 1.0-4.8 K/uL Monocytes # (Auto) 0.5 0.1-1.0 K/uL Eosinophils # (Auto) 0.59 0.00-0.70 K/uL Basophils # (Auto) 0.02 0.00-0.20 K/uL Absolute Immature Granulocyte (auto 0.36 0-1 K/uL Platelet Morphology PLT CLUMPS PRESENT Hemoglobin A1c 12.0 H 4.0-6.0 % Estimated Average Glucose (eAG) 298 H 70-126 mg/dL Total Bilirubin 0.5 0.2-1.0 mg/dL Aspartate Amino Transf (AST/SGOT) 41 H 10-37 U/L Alanine Aminotransferase (ALT/SGPT) 638 #*H 12-78 U/L Alkaline Phosphatase 197 H 50-136 U/L B-Type Natriuretic Peptide 2810 H 0-100 pg/mL Total Protein 5.6 L 6.0-8.3 g/dL Albumin 2.1 L 3.5-5.0 g/dL Triglycerides Level 118 30-200 mg/dL Cholesterol Level 191 <200 mg/dL LDL Cholesterol 134 H 0-99 mg/dL HDL Cholesterol 36 29-71 mg/dL Current Medications Medications (Trade) Dose Ordered Sig/Sierra Route PRN Reason Start Time Stop Time Status Last Admin Dose Admin Acetaminophen (TYLenol 325MG TAB) 650 mg Q4H PRN PO MILD PAIN (1-3) 09/21/24 19:30 10/03/24 12:53 DC 09/30/24 01:32 650 MG Acetaminophen (TYLenol 325MG TAB) 650 mg Q4H PRN PO Temp >38.3C(AFTER EXTUBATION) 10/03/24 13:00 11/02/24 12:59 Acetaminophen (TYLenol 325MG TAB) 650 mg Q6H PRN PO TEMPERATURE GREATER THAN 101.5 09/21/24 19:30 10/03/24 12:53 DC Acetaminophen (TYLenol 325MG TAB) 650 mg Q6H PRN PO MILD PAIN (1-3) 10/03/24 13:00 11/02/24 12:59 10/04/24 08:59 650 MG Acetaminophen (TYLenol 650MG SUPPOSITORY) 650 mg Q4H PRN RC Temp >38.3C WHILE INTUBATED 10/03/24 13:00 11/02/24 12:59 Acetaminophen (acetaMINOPHEN) 1,000 mg Q6H6 IV 10/03/24 18:00 10/04/24 17:59 10/04/24 11:18 1,000 MG Albumin Human 100 ml @ 0 mls/hr AD STAT IV 09/25/24 23:09 09/25/24 23:12 DC 09/25/24 23:17 100 MLS/HR Albumin Human 250 ml @ 0 mls/hr AD PRN IV IF HEMODYNAMICALLY UNSTABLE 10/03/24 13:00 10/03/24 17:24 DC 10/03/24 17:23 250 MLS/HR Albuterol (DUOneb) 1 udvial [id number] IH 09/21/24 22:00 09/25/24 09:59 DC 09/25/24 06:43 1 UDVIAL Albuterol (DUOneb) 1 udvial [id number] IH 09/25/24 10:00 09/26/24 15:22 DC 09/26/24 11:17 1 UDVIAL Albuterol (DUOneb) 1 udvial [id number] PRN IH WHEEZING 09/26/24 15:30 10/21/24 21:59 Aminocaproic Acid 56807 mg/Sodium Chloride 310 ml @ 25 mls/hr AD IV 10/03/24 13:00 10/03/24 13:03 DC Aminocaproic Acid 25789 mg/Sodium Chloride 480 ml @ 0 mls/hr AD PRN IV BLEEDING CONTROL 10/03/24 10:00 11/02/24 09:59 Aspirin (Aspirin 81mg Ec Tab) 81 mg DAILY PO 09/22/24 09:00 10/22/24 08:59 10/04/24 08:41 81 MG Atorvastatin Calcium (LIPItor 20MG) 20 mg HS PO 09/23/24 21:00 09/27/24 10:38 DC 09/26/24 20:36 20 MG Atorvastatin Calcium (LIPItor 40MG) 40 mg HS PO 09/22/24 21:00 09/22/24 20:17 DC Atorvastatin Calcium (LIPItor 40MG) 40 mg HS PO 09/30/24 21:00 10/30/24 20:59 10/03/24 20:57 40 MG Atorvastatin Calcium (LIPItor 40MG) 40 mg HS PO 10/03/24 21:00 10/03/24 12:58 DC Azithromycin 250 ml @ 250 mls/hr Q24H IVPB 09/21/24 18:00 09/21/24 18:14 DC Calcium Carbonate (Oyster Shell Ca 500mg Tab) 1,000 mg TID PO 09/30/24 14:00 10/30/24 13:59 10/04/24 12:57 1,000 MG Calcium Gluconate 1 gm/Sodium Chloride 60 ml @ 200 mls/hr AD PRN IV HYPOCALCEMIA 10/03/24 13:00 11/02/24 12:59 10/04/24 10:54 200 MLS/HR Calcium Gluconate 1 gm/Sodium Chloride 100 ml @ 0 mls/hr PROTOCOL IV 10/01/24 17:00 10/03/24 12:53 DC Cefazolin Sodium (Ancef) 2 gm ONCALL IVPB 10/02/24 10:30 10/03/24 13:09 DC Cefazolin Sodium (Ancef) 2 gm Q8H IVPB 10/03/24 18:00 10/04/24 10:01 DC 10/04/24 09:46 2 GM Cefepime HCl (MAXipime 1 GM vial) 1 gm Q24H IVPB 09/23/24 08:30 09/26/24 11:14 DC 09/25/24 08:36 1 GM Chlordiazepoxide HCl (LIBrium 25 MG CAP) 25 mg Q2H PRN PO ALCOHOL WITHDRAWAL PROTOCOL 09/22/24 20:30 09/29/24 20:29 DC 09/28/24 23:59 25 MG Chlordiazepoxide HCl (LIBrium 25 MG CAP) 50 mg Q1H PRN PO ALCOHOL WITHDRAWAL PROTOCOL 09/22/24 20:30 09/29/24 20:29 DC Clopidogrel Bisulfate (plaVIX 75MG) 75 mg DAILY PO 09/24/24 09:00 09/26/24 07:14 DC 09/25/24 08:38 75 MG Clopidogrel Bisulfate (plaVIX 75MG) 75 mg DAILY PO 09/30/24 09:00 10/01/24 08:26 DC 09/30/24 08:49 75 MG Dexmedetomidine/ Sodium Chloride (PRECEdex 400MCG/ 100ML-NS) 400 mcg PROTOCOL IV 10/03/24 13:00 10/04/24 12:59 DC Dextrose (D50w) 50 ml AD PRN IV HYPOGLYCEMIA PROTOCOL 09/30/24 17:30 10/01/24 08:25 DC Dextrose (D50w) 50 ml AD PRN IV HYPOGLYCEMIA PROTOCOL 10/01/24 08:30 10/31/24 08:29 Dextrose (D50w) 50 ml AD PRN IV HYPOGLYCEMIA PROTOCOL 10/03/24 13:00 10/03/24 13:04 DC Dextrose/Sodium Chloride 1,000 ml @ 0 mls/hr AD IV 09/22/24 00:00 09/23/24 21:23 DC 09/22/24 09:49 150 MLS/HR Docusate Sodium (COLace 100MG CAP) 100 mg BID PO 10/03/24 21:00 11/02/24 20:59 10/04/24 08:41 100 MG Doxycycline Hyclate (Doxycycline Hyclate) 100 mg BID PO 09/21/24 21:00 09/30/24 23:59 DC 09/30/24 20:53 100 MG Epinephrine HCl 10 mg/Sodium Chloride 250 ml @ 0 mls/hr AD PRN IV TITRATE 10/03/24 10:00 11/02/24 09:59 10/04/24 06:35 7.4 MLS/HR Epinephrine HCl 10 mg/Sodium Chloride 250 ml @ 0 mls/hr AD PRN IV POST-OP CARDIOVASCULAR ORDERS 10/03/24 13:00 10/03/24 13:03 DC Epoetin Moses-epbx (Retacrit) 10,000 unit QMOWEFR SQ 10/01/24 09:00 10/31/24 08:59 10/01/24 15:34 10,000 UNIT Famotidine (Pepcid 20mg Vial) 10 mg DAILY IV 09/22/24 09:00 09/27/24 10:35 DC 09/27/24 09:09 10 MG Famotidine (Pepcid 20mg Vial) 20 mg Q48H IV 10/03/24 21:00 11/02/24 20:59 10/03/24 20:57 20 MG Famotidine (Pepcid 20mg Tab) 10 mg Q48H PO 09/21/24 19:30 09/21/24 20:00 DC Ferrous Sulfate (Ferrous Sulfate) 325 mg DAILY PO 09/23/24 09:00 10/23/24 08:59 10/04/24 08:41 325 MG Fish Oil (Fish Oil 1000 Mg/Cap) 2,000 mg BID PO 09/22/24 21:00 10/03/24 12:53 DC 10/02/24 20:38 2,000 MG Fluconazole/ Sodium Chloride (DiFLUCan 200 MG/ NS 100 ML) 200 mg Q24H IV 09/25/24 16:00 09/27/24 10:36 DC 09/26/24 14:38 200 MG Furosemide (LASix 40MG VIAL) 80 mg Q12H IV 09/22/24 21:00 09/26/24 15:22 DC 09/26/24 13:20 80 MG Gabapentin (NEURontin 100 mg CAP) 100 mg DAILY PO 10/01/24 09:00 10/24/24 20:59 10/04/24 08:41 100 MG Gabapentin (NEURontin 100 mg CAP) 100 mg TID PO 09/24/24 21:00 09/30/24 17:37 DC 09/30/24 14:07 100 MG Glucagon (Glucagon 1mg Kit) 1 mg AD PRN IM HYPOGLYCEMIA PROTOCOL 09/30/24 17:30 10/01/24 08:25 DC Glucagon (Glucagon 1mg Kit) 1 mg AD PRN IM HYPOGLYCEMIA PROTOCOL 10/01/24 08:30 10/31/24 08:29 Glucagon (Glucagon 1mg Kit) 1 mg AD PRN IM HYPOGLYCEMIA PROTOCOL 10/03/24 13:00 10/03/24 13:04 DC Guaifenesin/ Dextromethorphan (RobiTUSSin DM 200/20MG 10ML) 10 ml Q4H PRN PO COUGH 09/21/24 19:30 10/03/24 12:53 DC 09/23/24 22:06 10 ML Heparin Sodium (Porcine) (HEParin 5,000 UNIT VIAL) *calculation based on ACTUAL B... AD PRN IV HEPARIN PROTOCOL 09/21/24 19:30 09/26/24 07:14 DC Heparin Sodium (Porcine) (HEParin 5,000 UNIT VIAL) 10,000 unit AD IRRIG 09/27/24 14:00 10/27/24 13:59 10/01/24 17:18 10,000 UNIT Heparin Sodium/ Dextrose 250 ml @ 0 mls/hr Q6H IV 09/21/24 19:30 09/26/24 18:36 DC 09/25/24 04:13 14.7 MLS/HR Hydralazine HCl (APRESOLine 20MG INJ) 10 mg Q6H PRN IV ADMINISTER FOR SBP > 160 10/01/24 16:30 10/03/24 12:53 DC Insulin Glargine (LANtus 100 UNITS/ML 10 ML VIAL) 10 units BID@0730,2100 SQ 09/22/24 21:00 09/26/24 11:15 DC 09/25/24 20:44 10 UNITS Insulin Glargine (LANtus 100 UNITS/ML 10 ML VIAL) 10 units HS SQ 09/30/24 21:00 09/30/24 17:26 DC Insulin Glargine (LANtus 100 UNITS/ML 10 ML VIAL) 15 units BID@0730,2100 SQ 09/26/24 21:00 09/30/24 17:13 DC 09/30/24 07:03 15 UNITS Insulin Glargine (LANtus 100 UNITS/ML 10 ML VIAL) 20 units AM SQ 10/01/24 09:00 09/30/24 17:26 DC Insulin Glargine (LANtus 100 UNITS/ML 10 ML VIAL) 30 units HS SQ 09/30/24 21:00 10/02/24 07:19 DC 10/01/24 19:54 30 UNITS Insulin Glargine (LANtus 100 UNITS/ML 10 ML VIAL) 50 units BID SQ 10/02/24 21:00 10/03/24 12:53 DC 10/03/24 09:02 50 UNITS Insulin Glargine (LANtus 100 UNITS/ML 10 ML VIAL) 50 units DAILY SQ 10/02/24 07:30 10/02/24 16:53 DC 10/02/24 09:41 50 UNITS Insulin Human Lispro (HumaLOG LISpro 100 UNIT/ML 3ML) 7 unit TIDAC SQ 10/01/24 07:30 10/01/24 17:01 DC 10/01/24 16:22 7 UNIT Insulin Human Lispro (HumaLOG LISpro 100 UNIT/ML 3ML) 10 unit TIDAC SQ 10/01/24 17:00 10/01/24 19:41 DC Insulin Human Lispro (HumaLOG LISpro 100 UNIT/ML 3ML) 15 unit TIDAC SQ 10/02/24 07:30 10/02/24 07:20 DC 10/02/24 07:01 15 UNIT Insulin Human Lispro (HumaLOG LISpro 100 UNIT/ML 3ML) 20 unit TIDAC SQ 10/02/24 11:30 10/02/24 16:53 DC 10/02/24 11:48 20 UNIT Insulin Human Lispro (HumaLOG LISpro 100 UNIT/ML 3ML) 25 unit TIDAC SQ 10/02/24 17:00 10/03/24 12:53 DC 10/02/24 17:17 25 UNIT Insulin Human Regular (humuLIN R 100 UNIT/ML 3ML) INSULIN SLIDING SCAL... ACHS SQ 09/24/24 07:30 10/03/24 12:53 DC 10/03/24 05:48 10 UNIT Insulin Human Regular 100 unit/ Sodium Chloride 100 ml @ 0 mls/hr AD IV 10/03/24 13:00 10/05/24 12:59 10/03/24 17:38 2 MLS/HR Insulin Human Regular 100 unit/ Sodium Chloride 101 ml @ 0 mls/hr PROTOCOL IV 09/21/24 20:00 09/23/24 21:20 DC 09/21/24 21:01 9.8 MLS/HR Insulin Human Regular 100 unit/ Sodium Chloride 101 ml @ 0 mls/hr PROTOCOL IV 09/22/24 00:00 09/22/24 00:03 DC Insulin Human Regular 100 unit/ Sodium Chloride 101 ml @ 0 mls/hr PROTOCOL IV 09/26/24 18:30 09/27/24 10:25 DC 09/26/24 18:36 10 MLS/HR Lactulose (Constulose 20gm/ 30ml Udcup) 20 gm BID PRN PO CONSTIPATION 10/03/24 13:00 11/02/24 12:59 Magnesium Hydroxide (Milk Of Magnesium 30ml) 30 ml DAILY PRN PO CONSTIPATION 10/03/24 13:00 11/02/24 12:59 Magnesium Sulfate 50 ml @ 12.5 mls/hr AD PRN IV MAG LEVEL LESS THAN 2.0 10/03/24 13:00 11/02/24 12:59 10/03/24 17:21 12.5 MLS/HR Magnesium Sulfate 50 ml @ 0 mls/hr PROTOCOL IV 09/22/24 00:00 09/23/24 21:23 DC Magnesium Sulfate 50 ml @ 0 mls/hr PROTOCOL IV 09/26/24 18:30 09/27/24 10:25 DC Magnesium Sulfate 50 ml @ 0 mls/hr PROTOCOL PRN IV OTH 09/22/24 00:00 09/22/24 00:04 DC 09/21/24 23:52 25 MLS/HR Mannitol 245 ml @ 0 mls/hr AD IV 09/22/24 00:30 09/22/24 20:17 DC Mannitol 500 ml @ 0 mls/hr AD IV 09/22/24 00:30 09/22/24 14:33 DC Mannitol (Osmitrol 20% 250ml Bag) 49 gm AD IV 09/22/24 00:00 09/22/24 00:28 DC Methylprednisolone Sodium Succinate (Solu-medROL 40MG) 40 mg BID IVP 09/22/24 09:00 09/27/24 10:35 DC 09/26/24 20:37 40 MG Metoprolol Succinate (TopROL XL) 25 mg BID PO 09/26/24 09:00 10/03/24 12:53 DC 10/03/24 08:55 25 MG Metoprolol Succinate (TopROL XL) 50 mg BID PO 09/24/24 21:00 09/26/24 07:14 DC 09/24/24 19:45 50 MG Metoprolol Tartrate (loprESSOR) 12.5 mg BID PO 09/22/24 21:00 09/24/24 16:38 DC 09/24/24 12:07 12.5 MG Miscellaneous Medication (Folic Acid/ Vitamin B Comp W-C ([place] Tablet)) 1 tab DAILY PO 09/23/24 09:00 09/22/24 15:56 DC Morphine Sulfate (morPHINE 2MG SYG) 0.5 mg Q2H PRN IV MODERATE PAIN (4-6) 10/03/24 13:00 10/04/24 10:49 DC 10/03/24 20:56 0.5 MG Morphine Sulfate (morPHINE 2MG SYG) 1 mg Q2H PRN IV SEVERE PAIN (7-10) 10/03/24 13:00 10/04/24 10:49 DC Morphine Sulfate (morPHINE 2MG SYG) 2 mg Q4H PRN IVP SEVERE PAIN (7-10) 09/26/24 01:30 10/01/24 04:29 DC Multivitamins Therapeutic (Multivitamin Tablet) 1 tab DAILY PO 09/23/24 09:00 10/23/24 08:59 10/04/24 08:42 1 TAB Nifedipine (adALAT 30MG) 60 mg DAILY PO 09/23/24 09:00 09/28/24 12:01 DC 09/25/24 08:37 60 MG Nitroglycerin (Nitroglycerin 1gm Oint) 0.5 inch Q8H TD 09/21/24 19:30 09/27/24 10:34 DC 09/25/24 12:44 0.5 INCH Nitroglycerin/ Dextrose 0 ml @ 0 mls/hr AD IV 10/03/24 13:00 10/06/24 12:59 Norepinephrine 250 ml @ 0 mls/hr AD PRN IV DIRECTED 09/26/24 01:30 09/27/24 10:34 DC 09/26/24 01:40 0 MLS/HR Norepinephrine Bitartrate 250 ml @ 0 mls/hr AD PRN IV TITRATE 10/03/24 10:00 11/02/24 09:59 Norepinephrine Bitartrate 8 mg/ Dextrose 250 ml @ 0 mls/hr AD PRN IV POST-OP CARDIOVASCULAR ORDERS 10/03/24 13:00 10/03/24 13:03 DC Ondansetron HCl (zoFRAN 4MG INJ) 4 mg Q6H PRN IV NAUSEA/VOMITING 10/03/24 13:00 11/02/24 12:59 10/04/24 10:24 4 MG Ondansetron HCl (zoFRAN 4MG INJ) 4 mg Q6H PRN IVP NAUSEA/VOMITING 09/26/24 01:30 10/03/24 12:53 DC 09/27/24 08:51 4 MG Oseltamivir Phosphate (Tamiflu) 75 mg DAILY PO 09/22/24 09:00 09/23/24 13:29 DC 09/23/24 08:38 75 MG Oseltamivir Phosphate (Tamiflu) 75 mg Q24H PO 09/26/24 17:00 09/27/24 17:01 DC 09/27/24 18:04 75 MG Oseltamivir Phosphate (Tamiflu) 75 mg QTUTHSA[DIALYSIS] PO 09/23/24 16:00 09/23/24 17:04 DC Oseltamivir Phosphate (Tamiflu) 75 mg QTUTHSA[DIALYSIS] PO 09/23/24 22:00 09/26/24 16:32 DC 09/25/24 16:09 75 MG Pantoprazole Sodium (PROTonix 40MG INJ) 40 mg BID IVP 09/27/24 21:00 10/03/24 12:53 DC 10/03/24 08:55 40 MG Pharmacy Profile Note (Pharmacy Communication) 1 each ONCE MISC 09/23/24 13:00 09/23/24 13:25 DC Pharmacy Profile Note (Pharmacy Communication) 1 each ONCE MISC 09/23/24 21:30 09/24/24 07:08 DC Pharmacy Profile Note (Pharmacy Communication) 1 each PROTOCOL PRN MISC ETOH Withdrawal Score changes 09/22/24 20:30 09/29/24 20:29 DC Piperacillin Sod/ Tazobactam Sod 50 ml @ 12.5 mls/hr Q12H IV 09/21/24 21:00 09/23/24 08:06 DC 09/22/24 20:43 12.5 MLS/HR Piperacillin Sod/ Tazobactam Sod (Zosyn 3.375gm+NS 50ml) 3.375 gm Q12H IV 09/26/24 11:30 10/06/24 11:29 10/04/24 10:51 3.375 GM Potassium Chloride 20 meq/ Sodium Chloride 1,010 ml @ 0 mls/hr PROTOCOL IV 09/22/24 00:00 09/23/24 21:23 DC Potassium Chloride/Dextrose/ Sod Cl 1,000 ml @ 0 mls/hr AD IV 09/22/24 00:00 09/23/24 21:23 DC Potassium Phosphate 250 ml @ 42 mls/hr AD PRN IV LOW PHOS LEVEL 10/03/24 13:00 11/02/24 12:59 Potassium Chloride 100 ml @ 100 mls/hr AD PRN IV HYPOKALEMIA 10/03/24 13:00 11/02/24 12:59 Prednisone (deltaSONE/ oraSONE 20MG TAB) 20 mg DAILY PO 09/28/24 09:00 10/01/24 08:59 DC 09/30/24 08:50 20 MG Propofol 100 ml @ 0 mls/hr AD PRN IV SEDATION 10/03/24 13:00 10/07/24 12:59 Sodium Bicarbonate (Sodium Bicarbonate) 650 mg TID PO 09/24/24 09:00 09/27/24 10:34 DC 09/26/24 20:36 650 MG Sodium Bicarbonate (Sodium Bicarb 50meq 50ml Vial) 50 meq AD PRN IV OTHER[SEE DOSING INSTRUCTIONS] 10/03/24 13:00 10/06/24 12:59 10/03/24 20:57 50 MEQ Sodium Chloride 250 ml @ 0 mls/hr Q0M IV 09/25/24 23:00 09/27/24 10:34 DC Sodium Chloride 500 ml @ 0 mls/hr AD IV 10/03/24 13:00 11/02/24 12:59 Sodium Chloride 1,000 ml @ 0 mls/hr ONCE IV 09/23/24 19:30 09/27/24 13:51 DC 09/26/24 12:15 1,000 MLS/HR Sodium Chloride 1,000 ml @ 0 mls/hr ONCE IV 09/27/24 14:30 09/27/24 13:51 DC Sodium Chloride 1,000 ml @ 0 mls/hr ONCE IV 09/27/24 15:00 10/27/24 14:59 10/03/24 17:22 10 MLS/HR Sodium Chloride 1,000 ml @ 10 mls/hr ONCE IV 10/03/24 13:00 10/04/24 12:59 DC Sodium Chloride 1,000 ml @ 100 mls/hr Q10H IV 09/21/24 19:30 09/27/24 10:34 DC 09/23/24 12:53 100 MLS/HR Sodium Chloride 1,000 ml @ 200 mls/hr PROTOCOL IV 09/22/24 00:00 09/23/24 21:23 DC Sodium Chloride (NS Flush 10ml) 10 ml Q8H PRN IVP IV LINE FLUSH 10/03/24 13:00 11/02/24 12:59 Thiamine HCl 100 mg/Folic Acid 1 mg/Multivitamins/ Minerals 10 ml/ Sodium Chloride 1,011.2 ml @ 100 mls/ hr Q24H IV 09/22/24 20:30 09/25/24 06:37 DC 09/22/24 20:43 100 MLS/HR Tramadol HCl (UltRAM) 25 mg Q6H PRN PO MODERATE PAIN (4-6) 10/03/24 13:00 10/08/24 12:59 Tramadol HCl (UltRAM) 50 mg Q6H PRN PO SEVERE PAIN (7-10) 10/03/24 13:00 10/08/24 12:59 10/04/24 12:42 50 MG Vancomycin HCl 250 ml @ 125 mls/hr Q72H IV 09/22/24 20:30 09/23/24 08:04 DC 09/22/24 20:48 125 MLS/HR Vancomycin HCl (Vancomycin 500mg+NS 100ml Ivpb) 1,000 mg DAILY08 IV 09/23/24 08:00 09/22/24 20:26 DC Vancomycin HCl (Vancomycin 750mg) 750 mg MWFPHD IVPB 09/26/24 16:00 10/03/24 23:29 DC Vancomycin HCl (Vancomycin 750mg) 750 mg Q24H IVPB 09/23/24 23:30 09/25/24 06:26 DC 09/24/24 22:43 750 MG Vasopressin 20 units/Sodium Chloride 100 ml @ 0 mls/hr PROTOCOL IV 10/03/24 19:30 11/02/24 19:29 10/04/24 06:34 9 MLS/HR Vitamin B Complex/ Vit C/Folic Acid (Nephrovite Tablet) 1 cap DAILY PO 09/23/24 09:00 10/23/24 08:59 10/04/24 08:41 1 CAP DIAGNOSTICS / RADIOLOGY: [ ] ASSESSMENT: Hyperosmolar Hyperglycemic Syndrome POA NSTEMI POA Influenza bronchopneumonia with sepsis POA Acute Hypoxemic Respiratory Failure POA Acute on chronic renal failure with concern for ATN POA Metabolic acidosis POA Lactic acidosis POA CKD stage 4 POA Uncontrolled Diabetes POA Protein Calorie malnutrition POA PLAN: CABG by Dr. Page Hemodialysis as per nephrology recommendations Iron profile and APR labs Procalcitonin and LA Continue broad-spectrum antibiotics Continue to trend WBC in Continue to replace electrolytes IV protocol Continue the patient on long-acting as well as insulin sliding scale Follow a.m. labs GI and DVT prophylaxis Disposition: Pending improvement in clinical condition EDEL MÉNEDZ MD Oct 04, 2024 13:40
--- NOTE | 2024-10-04 13:40 | HMCIMG ---
CHEST 1VW CLINICAL HISTORY: s/p CABG COMPARISON: 10/13/2024 TECHNIQUE: Single view of the chest was obtained. FINDINGS: There has been interval extubation. The remaining supporting lines and tubes are stable. There is mild pulmonary edema or congestive failure. There is worsening retrocardiac left lower lobe increased opacification. The cardiomediastinal silhouette and bony structures stable. IMPRESSION: Slightly worsened airspace disease status post extubation.
--- NOTE | 2024-10-04 16:40 | PN ---
[facility] CARDIOLOGY PROGRESS NOTE Date Patient Seen: Oct 04, 2024 Time of Visit: 16:18 Interval History: This 49-year-old Latin-I[place]ian male with a history of hypertension, hyperlipidemia, type 2 diabetes mellitus, end-stage renal disease on chronic hemodialysis admitted with a non STEMI and volume overload. Cardiac catheterization demonstrated severe two-vessel coronary disease involving the LAD and left circumflex. He underwent coronary artery bypass surgery x3 vessels 10/03/2024 with APARICIO to the LAD, saphenous vein graft to the posterolateral branch of the left circumflex, and saphenous vein graft to the PDA. Intraop erative notes were of a very small obtuse marginal branches and the left circumflex posterolateral branch measured about1 mm. The patient currently is extubated and on a Ventimask and has been stable postoperative day 1. He has had no complicating arrhythmias. His chest x-ray demonstrates CHF changes. He was dialyzed today with fluid removal of 1.2 L. he remains on low-dose epinephrine and insulin infusion. Physical Examination: GENERAL: No acute distress. HEAD: Normal with no signs of head trauma. EYES: PERRLA, EOMI, conjunctiva and sclera normal. NECK: Supple without JVD. There is no tenderness, lymphadenopathy, or masses. No thyromegaly. Normal carotid upstrokes without bruits. LUNGS: Diminished breath sounds with wheezes, or rhonchi. Sternotomy dressing dry and intact. HEART: Normal rate and rhythm. Normal S1 and S2 without murmurs, gallop or rub. VASC: Peripheral pulses +2 bilaterally. EXT: No clubbing, cyanosis or edema. NEURO: Awake, alert, and oriented x3. No focal neurological deficits noted. Laboratory: Hematology Labs: Test 10/04/24 03:55 10/03/24 05:09 Range/Units White Blood Count 13.8 #H 4.8-10.8 K/uL Red Blood Count 2.83 #L 4.50-6.20 MIL/uL Hemoglobin 8.2 L 14.0-18.0 g/dL Hematocrit 23.6 L 42-54 % Mean Corpuscular Volume 83.4 79-99 fL Mean Corpuscular Hemoglobin 29.0 27.0-33.0 pg Mean Corpuscular Hemoglobin Concent 34.7 32.0-36.0 g/dL Red Cell Distribution Width 15.9 H 11.0-15.5 % Platelet Count 79 L 130-400 K/uL Mean Platelet Volume 11.8 H 7.5-10.5 fL Nucleated Red Blood Cells 0.7 H 0.0-0.19 % Immature Granulocyte % (Auto) 3.6 H 0-1 % Neutrophils (%) (Auto) 78.2 H 40.0-77.0 % Lymphocytes (%) (Auto) 6.8 L 21.0-51.0 % Monocytes (%) (Auto) 5.3 3.0-13.0 % Eosinophils (%) (Auto) 5.9 0.0-8.0 % Basophils (%) (Auto) 0.2 0.0-5.0 % Neutrophils # (Auto) 7.8 H 1.8-7.7 K/uL Lymphocytes # (Auto) 0.7 L 1.0-4.8 K/uL Monocytes # (Auto) 0.5 0.1-1.0 K/uL Eosinophils # (Auto) 0.59 0.00-0.70 K/uL Basophils # (Auto) 0.02 0.00-0.20 K/uL Absolute Immature Granulocyte (auto 0.36 0-1 K/uL Platelet Morphology PLT CLUMPS PRESENT Chemistry Labs: Test 10/04/24 15:01 10/04/24 03:55 10/03/24 05:09 Range/Units Whole Blood Glucose 90 70-110 MG/DL Sodium Level 148 H 136-145 mmol/L Potassium Level 5.1 3.5-5.1 mmol/L Chloride Level 105 101-111 mmol/L Carbon Dioxide Level 29 21-32 mmol/L Blood Urea Nitrogen 70 H 7-18 mg/dL Creatinine 9.1 *H 0.5-1.3 mg/dL Glomerular Filtration Rate Calc 7 >90 mL/min Random Glucose 161 H 70-105 mg/dL Total Calcium 8.9 8.5-10.1 mg/dL Ionized Calcium 1.11 L 1.16-1.32 MMOL/L Phosphorus Level 8.2 H 2.5-4.9 mg/dL Magnesium Level 2.10 1.80-2.40 mg/dL Hemoglobin A1c 12.0 H 4.0-6.0 % Estimated Average Glucose (eAG) 298 H 70-126 mg/dL Total Bilirubin 0.5 0.2-1.0 mg/dL Aspartate Amino Transf (AST/SGOT) 41 H 10-37 U/L Alanine Aminotransferase (ALT/SGPT) 638 #*H 12-78 U/L Alkaline Phosphatase 197 H 50-136 U/L B-Type Natriuretic Peptide 2810 H 0-100 pg/mL Total Protein 5.6 L 6.0-8.3 g/dL Albumin 2.1 L 3.5-5.0 g/dL Triglycerides Level 118 30-200 mg/dL Cholesterol Level 191 <200 mg/dL LDL Cholesterol 134 H 0-99 mg/dL HDL Cholesterol 36 29-71 mg/dL Coagulation Labs: Test 10/04/24 03:55 Range/Units Prothrombin Time 12.4 #H 9.6-11.6 SEC Prothromb Time International Ratio 1.12 0.85-1.15 Activated Partial Thromboplast Time 31.4 26.3-35.5 SEC Diagnostics / Radiology: 2D echo 09/23/2024: The left atrium is mildly dilated, 40 mL/m. The right atrium is dilated. The right ventricle is dilated. Moderate concentric hypertrophy of the left ventricle is noted. The inferior wall is severely hypokinetic. The other ibrahim are hypokinetic. Left ventricle systolic function is moderate to severely depressed, estimated LVEF 35 to 40%. E to E ratio is greater than 14, which is suggestive of increased left ventricle end-diastolic filling pressures. Mild aortic stenosis: Peak velocity 2.0 m/s, mean gradient 9 mmHg (likely underestimated). Trace aortic regurgitation. Trace mitral regurgitation. Trace pericardial effusion. PASP is grossly normal, but is likely under estimated. Trace pericardial effusion. DICTATED BY: RONALD AGUAYO MD DATE: 09/23/24 0731 Impression and Plan: Non ST segment elevation myocardial infarction: Severe two-vessel coronary artery disease involving the LAD and left circumflex status post CABG x3 with APARICIO to the LAD, saphenous vein graft to the left PLVB, and saphenous vein graft to the PDA 10/03/2024 (intraoperative note of very small obtuse marginal branches and a small left PLV measuring 1 mm): -plan for dual antiplatelet therapy for one year post a non STEMI -plan for high-intensity statin therapy with atorvastatin 40 mg daily -routine postoperative beta-halima therapy Moderate ischemic cardiomyopathy with LVEF 35-40% by 2D echocardiogram 5: Acute on chronic HFrEF: -continue fluid removal on hemodialysis -Begin guideline directed medical therapy as blood pressure will permit over the next few days End-stage renal disease, status post initiation of hemodialysis on current admission: -chest x-ray demonstrates CHF/volume overload, continue fluid removal on hemodialysis Influenza bronchopneumonia with sepsis POA: Acute hypoxemic respiratory failure: -prolonged hospitalization thus far Comorbidities: Type 2 diabetes with circulatory and renal manifestations Hyperosmolar Hyperglycemic Syndrome Hypertension Hyperlipidemia Protein calorie malnutrition YO MELENDEZ MD Oct 04, 2024 16:39
--- NOTE | 2024-10-04 18:03 | PN ---
SUBJECTIVE: The patient is postop day #1 from a coronary artery bypass grafting. The patient has been extubated. He is on a mid range dose of epinephrine and a vasopressin drip at 0.03 milliunits per minute. He has just been extubated this morning and is doing relatively well. OBJECTIVE: VITAL SIGNS: Reveal pulse of 98, blood pressure is 144/65, respirations 15, oxygen saturation 99% on facemask oxygen. HEENT: Reveals normocephalic, atraumatic. Extraocular movements are intact. He has a right cervical Maurice-Saba catheter reading a cardiac index of 2.1 L per minute per meter squared. He also has a right cervical PermCath that exits his supraclavicular region. CHEST: His sternal wound is bandaged. His chest tubes are in place with a total of 300 mL of output since the time of surgery yesterday. LUNGS: Reveal mild rhonchi bilaterally. ABDOMEN: Reveals mild to moderate obesity with positive bowel sounds. EXTREMITIES: He has a right radial arterial line. He has SCDs on his lower extremities. GENITOURINARY: He has a Del Cid catheter in his bladder. LABORATORY DATA: His hemoglobin this morning is 8.3. ASSESSMENT AND PLAN: * Status post coronary artery bypass grafting, postoperative day #1. Begin aspirin. We will attempt to wean off vasopressin drip leaving epinephrine another 24 hours. Keep chest tubes in place. Attempt to get the patient up out of bed into a bedside chair later today. * Postoperative acute pulmonary insufficiency. Wean facemask oxygen to nasal cannula oxygen prongs to maintain oxygen saturations greater than 90% on room air. * Hypercholesterolemia. Begin Lipitor 40 mg p.o. at bedtime. Low-cholesterol, cardiac diet. * End-stage renal disease. Hemodialysis as directed by Nephrology. * Deep venous thrombosis prophylaxis. Sequential compression devices to lower extremities. TID: [id number] RECEIPT: [id number]
--- NOTE | 2024-10-04 20:57 | PN ---
SUBJECTIVE: This patient has been seen in ICU, seen several times. The patient is critically ill with no other associated finding. No other aggravating or relieving factors. The patient is status post CABG. The patient is having some fluid overload. OBJECTIVE: VITAL SIGNS: The patient's blood pressure is 138/70, respiratory rate is 18, afebrile. HEENT: Head is atraumatic, normocephalic. Pupils are round and reactive. Sclerae are anicteric. Conjunctivae are not pale. Oral mucosa is not dry. NECK: Supple. No masses or bruits. Thyroid is palpable. Neck has no bruits. CHEST: Shows equal thoracic percussion note being resonant in all areas. CARDIAC: Regular rhythm. No rub, no S3 or S4, no parasternal heave. BACK: No tenderness or back deformities. LYMPHATICS: With no lymph node swelling in neck or axillary area. LABORATORY DATA: Labs have been reviewed in detail. IMAGING STUDIES: Reviewed. PROBLEMS: Renal failure, anemia, multiple other comorbidities. PLAN: Plan is to continue dialysis support. Continue monitoring of renal function. Continue monitoring of electrolytes. Epogen as needed. The patient is seen in the ICU, seen several times for dialysis. Intake, output, weight, and overall status will be monitored. Condition is critical and guarded. I have discussed with other team members in detail. We will be following up closely. Thank you for this patient. TID: [id number] RECEIPT: [id number]
--- NOTE | 2024-10-04 21:13 | PN ---
SUBJECTIVE: The patient has been evaluated and seen for dialysis and seen several times. The patient is critically ill. Multiple other comorbidities. No other associated symptoms. The patient is status post CABG. The patient is critically ill and other comorbidities are present. No other associated finding. No other aggravating or relieving factors. PHYSICAL EXAMINATION: VITAL SIGNS: Blood pressure has been fluctuating, pulse of 110, respiratory rate is 18, afebrile. HEENT: Head is atraumatic. Pupils are round and reactive. Sclerae are anicteric. Conjunctivae are not pale. Oral mucosa is not dry. NECK: Supple. No masses or bruits. Thyroid is palpable. Neck has no bruits. CHEST: Shows equal thoracic percussion note being resonant in all areas. LABORATORY DATA: Labs have been reviewed. Old records reviewed. PROBLEMS: Renal failure, anemia, hypotension, status post CABG. PLAN: Dialysis in ICU. Overall, condition remained critical and guarded. We will be monitoring closely. I have discussed with other team physicians. The patient is in the ICU, critically ill and dose of medicine to be adjusted. Epogen as needed. Seen for dialysis and seen multiple times. TID: [id number] RECEIPT: [id number]
[2024-10-05] VITALS (97 sets, daily range): BP systolic 83–171; BP diastolic 48–80; PULSE 81–100; RESP 5–60; TEMP 97–98; O2SAT 96–99
[2024-10-05] MEDS: DEXTROSE 50%-WATER 50 ML DISP.SYRIN IV PRN (05:14)
[2024-10-05 05:47] LABS: MEAN CORPUSCULAR HEMOGLOBIN 28.8 pg (27.0-33.0); MEAN CORPUSCULAR HGB CONC 32.4 g/dL (32.0-36.0); MEAN CORPUSCULAR VOLUME 89.1 fL (79-99); NUCLEATED RED BLOOD CELLS 0.2 % (0.0-0.19); PLATELET COUNT (AUTO) 58 K/uL (130-400); RED BLOOD CELL COUNT(AUTO) 2.29 MIL/uL (4.50-6.20); RED CELL DISTRIBUTION WIDTH 17.2 % (11.0-15.5); WHITE BLOOD COUNT (AUTO) 9.1 K/uL (4.8-10.8)
[2024-10-05 06:01] LABS: ALBUMIN 2.5 g/dL (3.5-5.0); BILIRUBIN,TOTAL 0.3 mg/dL (0.2-1.0); CREATININE 7.9 mg/dL (0.5-1.3); POTASSIUM 5.2 mmol/L (3.5-5.1); TOTAL PROTEIN, SERUM 5.1 g/dL (6.0-8.3)
[2024-10-05 06:09] LABS: HEMATOCRIT 20.4 % (42-54)
[2024-10-05 06:19] LABS: INR 0.97 (0.85-1.15); PROTHROMBIN TIME 10.9 SEC (9.6-11.6)
[2024-10-05 06:21] LABS: PARTIAL THROMBOPLASTIN TIME 31.6 SEC (26.3-35.5)
--- NOTE | 2024-10-05 06:28 | NUR ---
0540 LAB REPORTED HGB 6.6, HCT 20.4. 0542 REPORTED LAB VALUES, VITALS AND CHEST TUBE OUTPUT TO DR SAVAGE AT THIS TIME, ORDERS RECEIVED. ONE UNIT OF PRBCS TO BE ADMINISTERED. 0600 NOTIFIED BLOOD BANK PATIENT IN NEED OF ONE UNIT OF PRBCS.
--- NOTE | 2024-10-05 07:45 | NUR ---
0700 VITALS ASSESSED 0703 PRBC UNIT INITIATED 0746 REPORT AND CARE RENDERED TO Uriah MELENDEZ RN AT THIS TIME. PATIENT AAOX3, 4LNC, VTALS WITHIN ACCEPTABLE PARAMETERS. VITALS, LABS AND ALL PERTINENT INFORMATION REVIEWED WITH INCOMING NURSE DURING BEDSIDE REPORT.
--- NOTE | 2024-10-05 08:36 | PN ---
[facility] PROGRESS NOTE Date Patient Seen: Oct 05, 2024 Time of Visit: 08:27 Supervising Physician: [Dr. Price] Primary Care Physician: Gama Acosta Outpatient Specialists: [ ] Inpatient Consults: Cardiology, nephrology and critical care team PROBLEM LIST: Septic shock, not POA, on epi drip Acute Hypoxemic Respiratory Failure, POA, resolved Acute on chronic CHF with reduced EF of 35 40% Nstemi, POA, s/p CABG 10/03/[address] Page Community acquired influenza A viral pneumoniae w/ superimposed Bilateral bacterial Pneumonia, POA, treated Sepsis Due To Bilateral Pneumonia And Influenza A Infection, POA, improved Severe transaminitis 2/2 shocked liver not POA ESRD with new onset hemodialysis this admission s/p Rt permacath Recurrent Dka w/ reopening of AGAP and ketones, resolved Acute Metabolic Acidosis 2/2 DkA and SAURABH , POA, improved Hyperkalemia In The Context Of Chronic Kidney Injury, Poa Morbid Obesity BMI 40.5 INTERVAL HISTORY: 09/22/2024: At the time my evaluation, the patient was in the emergency department awaiting bed assignment. The staff nurse reports no acute events overnight. The patient was on a Oxymizer with optimal SpO2. He was normotensiv e without the need for pressor therapy. There was no complaint of chest pain. There was no abdominal pain, nausea vomiting or diarrhea. The patient continued on a insulin drip per the DKA protocol. He was started on antibiotic and antiviral therapy for management of his condition. Review of labs today showed no major concern on CBC. Chemistry panel did show a sodium of 135, chloride of 100 and a CO2 of 20 with a anion gap of 15. Blood glucose remains elevated in the 300s. No new complaint. 09/23- saw patient and ED 13 awake alert and oriented x3. 2D echo at bedside being performed. Patient has been afebrile heart rate of 110, blood pressure 116/63 with respiratory rate of 20 saturating 97% with 7 L via nasal cannula oximizer. Urine output 1.4 L in the last 24 hours. On laboratory WBCs are 11.4 H&H trending down 7.6/23.1 with a platelet count that is 178 K. on chemistry sodium 136 potassium of 3.7 chloride 100 carbon dioxide of 19 BUN 106. Creatinine of 8.6 and GFR of 7. Per Dr Armenta pt scheduled for a Mitesh hemodialysis catheter per IR today. Pt continues with Tamiflu, Doxy, Cefepime and MRSA coverage will be added w/ vanco due to suspected MRSA superimposed pneumonia on Influenza pneumonia. On CT chest, abdomen and pelvis shows Acute appearing infiltrates in both lung bases consistent with pneumoniae. No acute finding in the abdomen or pelvis. Del Cid catheter in good position in the urinary bladder. We will continue to follow Neprhology recommendations. 09/24 patient was seen and examined at bedside with primary nurse present. Patient to receive1 unit PRBCs hemoglobin this a.m. 6.8. Continue to monitor closely. Patient to continue on IV antibiotics. Patient's troponin levels trending down. We will continue to follow recommendations of Cardiology. Patient remains hypoxic requiring supplemental oxygen via nasal cannula at L. Patient states does not use home oxygen. Patient is to continue on heparin drip. Patient to continue on IV steroids. Patient's echocardiogram revealed EF of 35-40%. Patient's blood cultures have been negative x2 days. Patient remains high risk for decompensation. 09/25 patient was seen and examined at bedside with mother present. At time of visit patient is currently on room air has been weaned off oxygen. Yesterday patient was on 5 L. As per patient is tolerating room air well. Patient denies any chest pain or shortness of breadth, however does report shortness of breath upon minimal exertion. Patient remains on heparin drip. Patient is still currently pending coronary CT to be completed, further recommendations by Cardiology to follow once examined has been completed. Patient to continue on hemodialysis per Nephrology's recommendations. 09/26/24-patient is awake alert and oriented x3. He requires Levophed at 0 point 4 micrograms/kilogram per minute for blood pressure support. He was brought into the ICU overnight due to hypotension and elevated liver enzymes. Current blood pressure of 129/74 heart rate in the 80s respiratory rate of 19 saturating 100% with 7 L via Oxymizer and afebrile. As per RN she is weaning Levophed. Urine output was 100 mL in the last 24 hours he received hemodialysis today with 3.6 L out and had one bowel movement. WBCs spiked up this morning from 17.6224.2 H&H 8.6/25.4 and platelet count is normal 291 K. neutrophils 79.5. Suspect patient aspirated in the episode of hypotension due to increased pul monary infiltrates to right side and spike in white count and temperature. Patient was panculture and cefepime changed to Zosyn to cover for aspiration pneumonia. On chest x-ray patient with a extensive bilateral infiltrates unchanged. No pneumothorax. Chemistries sodium of 130 potassium is 6.2 chloride of 90 carbon dioxide of 17 with a BUN of 119 and creatinine 9.6 and GFR of six liver enzymes raised AST of 6752 ALT of 4302, alkaline phosphatase of 233 likely from shock liver procalcitonin elevated at 24.31 decreased from admission wishes 70. On repeat BNP patient has a sodium of 134 potassium of 3.5 chloride of 91 carbon dioxide 26 with a anion gap of 17 and ketones of 1.4 we will need to restart insulin drip per DKA protocol. 09/27/24-pt is awake alert and oriented x 3. He is hemodynamically stable and off pressors. He denies any chill, chest pain or increased sob at rest. He does report sob on exertion and reports poor appetite. He is due for HD treatment today. Per RN no major overnight events and he has been afebrile. WBC's are trending down now 20.4, H&H is 8.9/26.3 and platelet count is 220 K. chemistry patient had a sodium of 134 potassium is normal 4.6 chloride of 92 carbon dioxide 24, AGAP has closed, liver enzymes severely elevated consistent with shocked lover but we will order us of abdomen to assess Liver and Gallbladder. Ketones of 0.2. We have discontinued DKA protocol and pt ,may be downgraded from ICU today. 2/ patient was seen and examined at bedside with family present. Patient is awake alert able to answer simple questions appropriately. Patient is on room air appears to be tolerating well. Patient has remained hemodynamically stable. Patient denies any chest pain or shortness of breadth. Denies any nausea vomiting or abdominal pain. Most per primary nurse no acute events to be reported. We will continue to follow recommendations from Nephrology and Cardiology appreciate assistance. We will continue to monitor patient closely 2/ patient was seen and examined at bedside with family present. Patient remains on room air tolerating well. Patient is scheduled for coronary CT today we will follow recommendations from Cardiology. Patient to continue on hemodialysis per Nephrology's recommendations. Patient's WBCs trending down today 18.6 yesterday 22.0. Patient to continue on IV antibiotics. We will continue to monitor patient closely. 09/[address] coronary angiogram which revealed 90% stenosis of the LAD as well as 90% stenosis of the left circumflex. Per bedside nurse, patient was offered stent placement, however refused and is wanting to pursue this as an outpatient. Patient's blood sugar remains elevated in for 0s, we will adjust insulin as indicated. Pro mallory significantly decreased from 70 down to 6. Blood and urine cultures remain negative, sputum cultures growing Dunia. His liver enzymes remain elevated but significantly downtrended. Patient is pending AV fistula for hemodialysis, however CTS is deferring this as an outpatient in order to prioritize his CAD management. 10/01 Patient had abnormal LHC and is referred for CABG. His abdominal U/S was negative for gallstones or ductal dilation. Carotid doppler WNL. CXR consistent with pulmonary venous congestion. Continues on dialysis with temp cath per nephrology, pending AV graft by CTS. Blood sugar is persistently elevated, insulin adjusted per primary. 10/02 Patient is evaluated at bedside. Continues with dialysis as scheduled. Patient had endocrinology consult with the adjustment in his insulin regimen. Patient is pending CABG in a.m. He denies any chest pain. 10/03 Patient is evaluated at bedside. Insulin dosing adjusted per endocrinology with improvement in glucose readings. Continues with dialysis as scheduled. Pe nding CABG today, no current complaints. 10/04 patient was admitted at bedside. He was status post CABG yesterday by Dr. Page. He was brought in the ICU postop for medical management. At the time of my visit. Patient had been extubated and saturating well on aerosol mask at 40% FiO2. He is awake, alert, following commands. Continues on vasopressin and epinephrine. Patient also undergoing an extra dialysis session today which just over 1.2L removed. Per bedside nurse had to initiate levophed temporarily d/t low blood pressure. Chest tube in place with 1260ml of output per chart. His hemoglobin dropped to 5.5 overnight, did receive blood products with improvement to 9.0. 10/05 Patient is evaluated at bedside. Blood pressures are maintained with maps above 70. He continues on low-dose epi drip per CTS request. Chest tube with the about 800 cc of drainage overnight per nursing staff. Hemoglobin has dropped to 6.6, currently receiving one PRBC. He had a dialysis session yesterday, labs showed mild hyperkalemia. We will continue dialysis per Nephrology's recommendation. White blood count is within normal limits at nine, cultures remained negative. REVIEW OF SYSTEMS: 12 point ROS reviewed with patient. Pertinent positives mentioned above. Otherwise negative. PHYSICAL EXAM: GENERAL: alert, weak, awake oriented x 3, weak, deconditioned HEENT: EOMI, Sclera non icteric, moist mucosa NECK: Supple, no JVD, trachea midline LUNGS: coarse rhonchi breath sounds decreased bilaterally. No wheezes HEART: Regular rate and rhythm. Normal S1 and S2, without murmurs ABD: Abdomen soft, nontender. Bowel sounds present EXT: No clubbing cyanosis, positve 2+ edema to upper and lower extremities NEURO: Alert and oriented to person, follows commands Vital Signs (last 8hr) Date Time Temp Pulse Resp B/P (MAP) Pulse Ox O2 Delivery O2 Flow Rate FiO2 10/05/24 07:15 100 13 129/54 (79) 96 10/05/24 07:00 98 11 123/77 (92) 97 148/64 (92) 10/05/24 06:45 98 16 98 146/65 (92) 10/05/24 06:30 94 16 99 139/62 (87) 10/05/24 06:15 96 18 98 144/65 (91) 10/05/24 06:00 92 19 115/67 (83) 98 144/62 (89) 10/05/24 05:45 91 17 99 143/63 (89) 10/05/24 05:32 93 15 98 146/63 (90) 10/05/24 05:17 92 20 99 146/63 (90) 10/05/24 05:02 93 15 142/60 (87) 99 142/60 (87) 10/05/24 04:46 97 18 131/80 (97) 97 155/64 (94) 10/05/24 04:32 93 12 98 135/56 (82) 10/05/24 04:17 94 12 98 138/61 (86) 10/05/24 04:02 92 11 98 143/62 (89) 10/05/24 03:46 95 17 119/69 (86) 98 140/63 (88) 10/05/24 03:45 94 17 98 142/63 (89) 10/05/24 03:30 93 18 99 144/64 (90) 10/05/24 03:15 93 18 99 135/74 (94) 10/05/24 03:03 97.3 Aerosol Face Mask 40 10/05/24 03:00 91 16 100 103/79 (87) 10/05/24 02:46 91 12 116/74 (88) 99 134/64 (87) 10/05/24 02:45 86 13 99 139/64 (89) 10/05/24 02:30 92 16 99 140/64 (89) 10/05/24 02:15 91 18 99 135/60 (85) 10/05/24 02:00 92 10 99 129/56 (80) 10/05/24 01:46 91 16 114/66 (82) 99 134/60 (84) 10/05/24 01:45 91 14 99 135/62 (86) 10/05/24 01:30 92 10 99 141/64 (89) 10/05/24 01:15 92 15 99 144/62 (89) 10/05/24 01:00 92 11 99 147/63 (91) 10/05/24 00:45 92 16 122/65 (84) 96 145/62 (89) 10/05/24 00:30 92 12 99 146/64 (91) LABS: Hematology Labs: Test 10/05/24 05:39 Range/Units White Blood Count 9.1 4.8-10.8 K/uL Red Blood Count 2.29 L 4.50-6.20 MIL/uL Hemoglobin 6.6 *L 14.0-18.0 g/dL Hematocrit 20.4 *L 42-54 % Mean Corpuscular Volume 89.1 79-99 fL Mean Corpuscular Hemoglobin 28.8 27.0-33.0 pg Mean Corpuscular Hemoglobin Concent 32.4 32.0-36.0 g/dL Red Cell Distribution Width 17.2 H 11.0-15.5 % Platelet Count 58 #L 130-400 K/uL Mean Platelet Volume 10.9 H 7.5-10.5 fL Nucleated Red Blood Cells 0.2 H 0.0-0.19 % Platelet Morphology Comment See comments Chemistry Labs: Test 10/05/24 05:39 10/05/24 03:34 10/04/24 03:55 Range/Units Sodium Level 148 H 136-145 mmol/L Potassium Level 5.2 H 3.5-5.1 mmol/L Chloride Level 104 101-111 mmol/L Carbon Dioxide Level 32 21-32 mmol/L Blood Urea Nitrogen 55 H 7-18 mg/dL Creatinine 7.9 H 0.5-1.3 mg/dL Glomerular Filtration Rate Calc 8 >90 mL/min Random Glucose 89 70-105 mg/dL Total Calcium 7.8 L 8.5-10.1 mg/dL Phosphorus Level 8.0 H 2.5-4.9 mg/dL Magnesium Level 2.00 1.80-2.40 mg/dL Total Bilirubin 0.3 0.2-1.0 mg/dL Aspartate Amino Transf (AST/SGOT) 53 H 10-37 U/L Alanine Aminotransferase (ALT/SGPT) 63 12-78 U/L Alkaline Phosphatase 72 50-136 U/L Total Protein 5.1 L 6.0-8.3 g/dL Albumin 2.5 L 3.5-5.0 g/dL Whole Blood Glucose 82 70-110 MG/DL Ionized Calcium 1.11 L 1.16-1.32 MMOL/L Coagulation Labs: Test 10/05/24 05:39 Range/Units Prothrombin Time 10.9 9.6-11.6 SEC Prothromb Time International Ratio 0.97 0.85-1.15 Activated Partial Thromboplast Time 31.6 26.3-35.5 SEC DIAGNOSTICS / RADIOLOGY RESULTS: PLAN HD per Neprhology Continue epi 1PRBC now, monitor H&H Will monitor ABG's continue Zosyn follow cultures Ketones normalized DC insulin gtt monitor liver enzymes avoid hepatotoxic medications hold Statins Chest tube management per CTS NEURO: Minimize central acting medications as possible. Fall Precautions. Well lighted room through the day and minimize interruptions through the night to prevent acute delirium. PULMONARY: Supplemental 02 as needed DuoNebs every 6 hours Robitussin 10 mL q.4h p.r.n. for cough Titrate Fio2 to keep Spo2 > or = 90% DuoNebs and CPT as needed IS hourly while awake for pulmonary hygiene Out of bed to chair as tolerated CARDIOVASCULAR: Follow hemodynamics. Titrate vasopressor to keep MAP >65 or systolic blood pressure >95mmHg Aspirin 81 mg p.o. daily Atorvastatin 40 mg p.o. at bedtime Serial troponin level Machine Repair Person and CTS consulted DIPS: epinephrine LINES: PIV arterial line HD Permacath to rt subclavian GI & NUTRITION: Continue nutritional support Aspirations precautions Prokinetic agents and laxatives as needed Keep patient NPO Renal diet KIDNEYS & ELECTROLYTES: Strict monitoring of intake and output Nephrology is consulted Obtain UA Daily weights Avoid nephrotoxic agents Monitor electrolytes and replace as needed HD per nephrology ENDOCRINE: Maintain blood glucose between 100-180 at all times. Insulin sliding scale for blood glucose management Insulin drip per DKA protocol INFECTIOUS DISEASE: Trend temperature. Ritter-culture if febrile. Micro: Blood cultures resp cultures panculture 09/26/24 Antibiotics: Zosyn 3.375 g IV every 8 hours and doxycycline 100 mg IV every 12 hours HEMATOLOGY & COAGULATION: Monitor H&H. Keep Hgb > 7 Transfuse 1 unit of PRBC for Hgb < 7 Transfuse 1 pack of platelets of platelets < 20, 000 Watch for any signs and symptoms of bleeding SKIN: Pressure ulcer prevention per facility protocol Rehab: PT/OT Prophylaxis: GI: Famotidine DVT: Heparin Code Status: Full Resuscitation Disposition: ICU Other: Total patient care time exceeds 50 minutes excluding all procedures. Case was discussed and seen with my supervising physician. The above plan was formulated and agreed upon. MARIELOS VALLEJO Oct 05, 2024 08:36
--- NOTE | 2024-10-05 10:23 | HMCIMG ---
FRONTAL CHEST RADIOGRAPH INDICATION: SOB COMPARISON: 10/04/2024 FINDINGS/IMPRESSION: monitoring tech leads overlie the field of view. Median sternotomy wires as well as fixation plates and screws are in appropriate alignment. Defibrillator patch has been removed. Stable [place] catheter and pleural mediastinal drainage catheters. Stable heart size and residual mild central pulmonary vascular congestion. Mild bilateral perihilar atelectasis and suspect trace left pleural fluid with subjacent subsegmental atelectasis, but no evidence for pneumothorax.
[2024-10-05 10:31] LABS: HEMATOCRIT 25.5 % (42-54)
[2024-10-05 11:18] LABS: ABG BASE EXCESS 1.2 mmol/L (-2.0-3.0); ABG HCO3 26.4 mmol/L (21.0-28.0); ABG OXYGEN SATURATION 91.4 % (94.0-98.0); ABG PCO2 45 mmHg (35-48); ABG PH 7.385 (7.350-7.450); CARBON MONOXIDE 0.4 % (0.5-1.5); HHb 8.5; PO2, ARTERIAL BG 64.5 mmHg (83.0-108.0); VENT MODE, BG NC (ROOM AIR)
--- NOTE | 2024-10-05 11:37 | NUR ---
PT to hold for today due to arterial line. PT team notified. PT to re-attempt eval on 10/06/24
[2024-10-05 12:09] LABS: ABG BASE EXCESS 0.7 mmol/L (-2.0-3.0); ABG HCO3 27.3 mmol/L (21.0-28.0); ABG OXYGEN SATURATION 97.8 % (94.0-98.0); ABG PCO2 51 mmHg (35-48); ABG PH 7.346 (7.350-7.450); PO2, ARTERIAL BG 112.5 mmHg (83.0-108.0); VENT MODE, BG NC (ROOM AIR)
--- NOTE | 2024-10-05 13:21 | PN ---
[facility] PROGRESS NOTE Date of Service: Oct 05, 2024 Time of Service: 13:12 SUBJECTIVE: This is a 49-year-old male with past medical history of CKD not on hemodialysis, diabetes, hypertension, hyperlipidemia and obesity who presents to the ED for complaints of cough and chest congestion which started last Sunday and getting worse on Sunday. Patient reports coughing up pinkish colored thick phlegm, loss of appetite and on Sunday started not eating unable to sleep, vomiting and having chest pain triggered by persistent coughing he said.Patient reports having soreness due to hard cough he said.Patient reports having sweeling on both lower extremities and started having shortness of breath and today he started having non bloody diarrhea. Neela was at bedside during my evaluation. Upon arrival to ER a STEMI alert was activated per ER MD and spoke to [employer] immigration officer and as per report patient is possibly going to cathlab tomorrow and patient is going to be started on Heparin and Insulin drip. Seen and examined patient in the Er awake,alert and coherent,appears weak looking.Patient denies fever,palpitation ,dizziness ,sore throat and headache. Latest vital signs temperature 98.1, heart rate 108, respiration 30 blood pressure 130/68 saturation 91% on 4 L nasal cannula. Labs: WBC 11.2, hemoglobin 9, hematocrit 27, platelet count 238, neutrophils 88. PH 7.32, CO2 26, PO2 49.6, bicarb 13, PO2 80 base excess -11.3. Sodium 129, potassium 5.9, chloride 93, CO2 19, BUN 88, creatinine 8.2, GFR seven glucose 876 , lactic acid 3.0-3.2, troponin 5531 albumin 2.1. Influenza A positive influenza B negative SARs COVID negative. Strep A negative. Chest x-ray result revealed extensive bilateral mid to lower lung pneumonia right greater than left. First ECG result revealed sinus tachycardia heart rate 121 probable left atrial enlargement repolarization abnormal suggest ischemia diffuse leads ST-elevation consider anterior injury. Second EKG result revealed sinus tachycardia repolarization abnormality suggest ischemia diffuse leads borderline ST elevation anterior leads heart rate 108. While in the ER patient received Tamiflu 75 mg p.o., 1 L NS bolus, Lopressor 5 mg IV, insulin 10 units IV, Zosyn IV, Zofran 4 mg IV and Phenergan codeine 10 mL p.o. we will admit patient in ICU for further medical management. 10/02/24 Patient was seen and examined at bedside. He is alert, awake and oriented. No acute events overnight. He denies chest pain or abdominal pain or palpitations or dizziness or shortness of breath. Dr. Szymanski was consulted for CABG, he will be scheduled for it later this week or next week. Dr. Perry was consulted because of constant hyperglycemia, changed his lantus to 30 and lispro 10U TID , will follow up on the glucose levels next 24 hours.As per his , Lantus never worked for him, will try 70/30 if it is not under control. Remarkable labs are sodium 135, Chloride 97, BUN 85, Creatinine 9.1, glucose 454, corrected calcium 7.4, phosphorous 6.5, his liver function is improving. 10/03/24 Patient was seen and examined at bedside. He is alert, awake and oriented. No acute events overnight. He denies chest pain or abdominal pain or palpitations or dizziness or shortness of breath. He will be taken to surgery this afternoon for CABG by . His blood glucose is improving. We will labs or hemoglobin 9.1, chloride 99, BUN 67, creatinine 8.4, HbA1c 12.0, total calcium improving from 7.4-7.6, BNP 2810, ALT improving from 897 to 638, LDL 134, [place] [address] [place] [address]. Chest x-ray showed clear lungs with right Permcath at the tip of distal superior vena cava level. 10/04/24 patient was seen and examined. Case discussed with the RN. He is doing well he was successfully underwent CABG. He denies any chest pain or shortness for breath, 10/05/24 Patient was seen and examined at bedside. Today his vitals are blood pressure 142/75, pulse rate 95, respiratory rate 16. Currently on low-dose epinephrine drip. His chest tube drained 980 mL in the last 24 hours and 1.2 L was ultrafiltered during his hemodialysis session yesterday. Remarkable labs her hemoglobin 6.6, hematocrit 20.4, platelets 11814, sodium 148, potassium 5.2, BUN 55, creatinine 7.9 phosphorus 8.0. Lactic acid came down 3.25 to 1.3. He was transfused 1 unit of RBC in the morning. [place] [address] to 9100, no temperatures in the last 24 hours. He denies chest pain or shortness of breath or palpitations or dizziness. He has a hemodialysis session today. Chest x-ray today showed mild bilateral perihilar atelectasis and suspect raise left pleural fluid with subjacent, subsegmental atelectasis, but no evidence for pneumothorax. REVIEW OF SYSTEMS CONSTITUTIONAL: Denies fevers, chills, or night sweats. No unintentional weight loss reported. NEUROLOGICAL: Denies headache, amaurosis fugax, motor weakness, sensory deficit, vertigo/spinning sensation, gait abnormalities, or tremors. ENT: No hearing loss, otalgia, otorrhea, rhinitis, rhinorrhea, hoarseness, or sore throat. CARDIOVASCULAR: Denies orthopnea shortness of breaths and chest pain Denies paroxysmal nocturnal dyspnea, palpitations, life-threatening arrhythmias, claudication. PULMONARY: Denies productive cough , pleuritic chest pain and shortness of breaths SLEEP: Complains of unable to sleep Denies morning headaches, daytime somnolence or napping. Denies waking from sleep. Denies knowledge of snoring. GASTROINTESTINAL: Denies loss of appetite, vomiting and diarrhea Denies any type of dysphagia to either liquids or solids. Denies nausea, vomiting, pyrosis, early satiety, abdominal pain, diarrhea, constipation, or changes in stool consistency or caliber. Denies coffee-ground emesis, hematemesis, hematochezia, or melanotic stools. GENITOURINARY: Denies frequency, urgency, nocturia, hematuria or incontinence (Storage/Irritative symptoms.) Low urinary stream, straining to void, urinary intermittency or hesitancy, splitting of the voiding stream, terminal dribbling. ENDOCRINOLOGIC: Denies polyuria, polydipsia, polyphagia or heat/cold intolerances. Patient reports not taking medications for diabetes because he was not eating. HEMATOLOGIC: Denies thrombophilia/previous clots, or coagulopathy/bleeding disorders. ONCOLOGIC: Denies personal history of malignancy. DERMATOLOGIC: Denies rashes or pruritus. PSYCHIATRIC: Denies any suicidal or homicidal ideation. Denies hallucinations. PHYSICAL EXAM GENERAL APPEARANCE: The patient is awake, alert, and oriented appears generally weak NEUROLOGICAL: Cranial nerves II-XII grossly intact. Motor is 5/5 in bilateral upper and lower extremities proximal to distal. No sensory deficits. HEENT: Face is symmetric. Pupils are equal and reactive. Extraocular movements are intact. NECK: Supple. No JVD. No thyromegaly. No submental, submandibular, pre- /postauricular, occipital or supraclavicular lymphadenopathy. CHEST: Normal chest expansion. No Telemetry. LUNGS: . Diminished lung sounds to bilateral lung james CARDIOVASCULAR: Regular. S1 and S2 normal. No appreciable rubs, murmurs or gallops. ABDOMEN: Round and firmed There is no rebound, voluntary guarding, or rigidity. : Deferred. No Del Cid. EXTREMITIES: Bilateral lower extremity edema No clubbing. Good capillary refill. SKIN: No skin breakdown. Vital Signs (last 8hr) Date Time Temp Pulse Resp B/P (MAP) Pulse Ox O2 Delivery O2 Flow Rate FiO2 10/05/24 09:15 96 16 161/70 (100) 97 10/05/24 09:00 95 16 142/75 (97) 99 159/67 (97) 10/05/24 08:45 100 16 171/70 (103) 97 10/05/24 08:30 95 16 150/68 (95) 99 10/05/24 08:15 94 16 150/67 (94) 99 10/05/24 08:00 99 Nasal Cannula* 4 36 10/05/24 08:00 97.9 Nasal Cannula 4.0 10/05/24 08:00 95 16 137/65 (89) 99 145/62 (89) 10/05/24 07:45 93 16 151/65 (93) 99 10/05/24 07:30 94 16 153/65 (94) 98 10/05/24 07:15 100 13 129/54 (79) 96 10/05/24 07:00 98 11 123/77 (92) 97 148/64 (92) 10/05/24 06:45 98 16 98 146/65 (92) 10/05/24 06:30 94 16 99 139/62 (87) 10/05/24 06:15 96 18 98 144/65 (91) 10/05/24 06:00 92 19 115/67 (83) 98 144/62 (89) 10/05/24 05:45 91 17 99 143/63 (89) 10/05/24 05:32 93 15 98 146/63 (90) 10/05/24 05:17 92 20 99 146/63 (90) LABS: Laboratory: Test 10/05/24 12:07 10/05/24 11:16 10/05/24 10:20 10/05/24 05:39 Range/Units Blood Gas Specimen Type Arterial Arterial Blood pH 7.346 L 7.350-7.450 Arterial Blood Partial Pressure CO2 51 H 35-48 mmHg Arterial Blood Partial Pressure O2 112.5 H 83.0-108.0 mmHg Arterial Blood HCO3 27.3 21.0-28.0 mmol/L Arterial Blood Oxygen Saturation 97.8 94.0-98.0 % Arterial Blood Base Excess 0.7 -2.0-3.0 mmol/L Blood Gas Temperature 37.0 35.5-37.0 CELSIUS Blood Gas Flow-by 3.00 0.00-15.00 L/min Blood Gas Vent Mode NC ROOM AIR FiO2 32.0 % Blood Gas Specimen Comment ROSMERY GREENBERG Hemoglobin (Blood Gas) 8.4 L 13.5-17.5 g/dL Sodium (Blood Gas) 137 136-145 MMOL/L Bedside Potassium (Blood Gas) 5.0 H 3.4-4.5 MMOL/L Bedside Chloride (Blood Gas) 98 98-107 MMOL/L Bedside Glucose (Blood Gas) 132 H 65-95 MG/DL Bedside Ionized Calcium (Blood Gas) 0.97 L 1.15-1.33 MMOL/L Bedside Lactic Acid (Blood Gas) 1.31 H 0.36-0.75 MMOL/L Hemoglobin 8.1 #L 14.0-18.0 g/dL Hematocrit 25.5 #L 42-54 % White Blood Count 9.1 4.8-10.8 K/uL Red Blood Count 2.29 L 4.50-6.20 MIL/uL Mean Corpuscular Volume 89.1 79-99 fL Mean Corpuscular Hemoglobin 28.8 27.0-33.0 pg Mean Corpuscular Hemoglobin Concent 32.4 32.0-36.0 g/dL Red Cell Distribution Width 17.2 H 11.0-15.5 % Platelet Count 58 #L 130-400 K/uL Mean Platelet Volume 10.9 H 7.5-10.5 fL Nucleated Red Blood Cells 0.2 H 0.0-0.19 % Platelet Morphology Comment See comments Prothrombin Time 10.9 9.6-11.6 SEC Prothromb Time International Ratio 0.97 0.85-1.15 Activated Partial Thromboplast Time 31.6 26.3-35.5 SEC Sodium Level 148 H 136-145 mmol/L Potassium Level 5.2 H 3.5-5.1 mmol/L Chloride Level 104 101-111 mmol/L Carbon Dioxide Level 32 21-32 mmol/L Blood Urea Nitrogen 55 H 7-18 mg/dL Creatinine 7.9 H 0.5-1.3 mg/dL Glomerular Filtration Rate Calc 8 >90 mL/min Random Glucose 89 70-105 mg/dL Total Calcium 7.8 L 8.5-10.1 mg/dL Phosphorus Level 8.0 H 2.5-4.9 mg/dL Magnesium Level 2.00 1.80-2.40 mg/dL Total Bilirubin 0.3 0.2-1.0 mg/dL Aspartate Amino Transf (AST/SGOT) 53 H 10-37 U/L Alanine Aminotransferase (ALT/SGPT) 63 12-78 U/L Alkaline Phosphatase 72 50-136 U/L Total Protein 5.1 L 6.0-8.3 g/dL Albumin 2.5 L 3.5-5.0 g/dL Test 10/05/24 03:34 10/04/24 03:55 10/03/24 22:26 Range/Units Whole Blood Glucose 82 70-110 MG/DL Ionized Calcium 1.11 L 1.16-1.32 MMOL/L Blood Gas Respiration Rate 4.0 min. Blood Gas Tidal Volume 800 ml Blood Gas PEEP 5 cm H2O Current Medications Medications (Trade) Dose Ordered Sig/Sierra Route PRN Reason Start Time Stop Time Status Last Admin Dose Admin Acetaminophen (TYLenol 325MG TAB) 650 mg Q4H PRN PO MILD PAIN (1-3) 09/21/24 19:30 10/03/24 12:53 DC 09/30/24 01:32 650 MG Acetaminophen (TYLenol 325MG TAB) 650 mg Q4H PRN PO Temp >38.3C(AFTER EXTUBATION) 10/03/24 13:00 11/02/24 12:59 Acetaminophen (TYLenol 325MG TAB) 650 mg Q6H PRN PO TEMPERATURE GREATER THAN 101.5 09/21/24 19:30 10/03/24 12:53 DC Acetaminophen (TYLenol 325MG TAB) 650 mg Q6H PRN PO MILD PAIN (1-3) 10/03/24 13:00 11/02/24 12:59 10/04/24 08:59 650 MG Acetaminophen (TYLenol 650MG SUPPOSITORY) 650 mg Q4H PRN RC Temp >38.3C WHILE INTUBATED 10/03/24 13:00 11/02/24 12:59 Acetaminophen (acetaMINOPHEN) 1,000 mg Q6H6 IV 10/03/24 18:00 10/04/24 17:59 DC 10/04/24 11:18 1,000 MG Albumin Human 100 ml @ 0 mls/hr AD STAT IV 09/25/24 23:09 09/25/24 23:12 DC 09/25/24 23:17 100 MLS/HR Albumin Human 250 ml @ 0 mls/hr AD PRN IV IF HEMODYNAMICALLY UNSTABLE 10/03/24 13:00 10/03/24 17:24 DC 10/03/24 17:23 250 MLS/HR Albuterol (DUOneb) 1 udvial [id number] IH 09/21/24 22:00 09/25/24 09:59 DC 09/25/24 06:43 1 UDVIAL Albuterol (DUOneb) 1 udvial [id number] IH 09/25/24 10:00 09/26/24 15:22 DC 09/26/24 11:17 1 UDVIAL Albuterol (DUOneb) 1 udvial [id number] PRN IH WHEEZING 09/26/24 15:30 10/21/24 21:59 Aminocaproic Acid 25592 mg/Sodium Chloride 310 ml @ 25 mls/hr AD IV 10/03/24 13:00 10/03/24 13:03 DC Aminocaproic Acid 22821 mg/Sodium Chloride 480 ml @ 0 mls/hr AD PRN IV BLEEDING CONTROL 10/03/24 10:00 11/02/24 09:59 Aspirin (Aspirin 81mg Ec Tab) 81 mg DAILY PO 09/22/24 09:00 10/22/24 08:59 10/05/24 09:20 81 MG Atorvastatin Calcium (LIPItor 20MG) 20 mg HS PO 09/23/24 21:00 09/27/24 10:38 DC 09/26/24 20:36 20 MG Atorvastatin Calcium (LIPItor 40MG) 40 mg HS PO 09/22/24 21:00 09/22/24 20:17 DC Atorvastatin Calcium (LIPItor 40MG) 40 mg HS PO 09/30/24 21:00 10/30/24 20:59 10/04/24 20:28 40 MG Atorvastatin Calcium (LIPItor 40MG) 40 mg HS PO 10/03/24 21:00 10/03/24 12:58 DC Azithromycin 250 ml @ 250 mls/hr Q24H IVPB 09/21/24 18:00 09/21/24 18:14 DC Calcium Carbonate (Oyster Shell Ca 500mg Tab) 1,000 mg TID PO 09/30/24 14:00 10/30/24 13:59 10/05/24 09:21 1,000 MG Calcium Gluconate 1 gm/Sodium Chloride 60 ml @ 200 mls/hr AD PRN IV HYPOCALCEMIA 10/03/24 13:00 11/02/24 12:59 10/05/24 11:32 200 MLS/HR Calcium Gluconate 1 gm/Sodium Chloride 100 ml @ 0 mls/hr PROTOCOL IV 10/01/24 17:00 10/03/24 12:53 DC Cefazolin Sodium (Ancef) 2 gm ONCALL IVPB 10/02/24 10:30 10/03/24 13:09 DC Cefazolin Sodium (Ancef) 2 gm Q8H IVPB 10/03/24 18:00 10/04/24 10:01 DC 10/04/24 09:46 2 GM Cefepime HCl (MAXipime 1 GM vial) 1 gm Q24H IVPB 09/23/24 08:30 09/26/24 11:14 DC 09/25/24 08:36 1 GM Chlordiazepoxide HCl (LIBrium 25 MG CAP) 25 mg Q2H PRN PO ALCOHOL WITHDRAWAL PROTOCOL 09/22/24 20:30 09/29/24 20:29 DC 09/28/24 23:59 25 MG Chlordiazepoxide HCl (LIBrium 25 MG CAP) 50 mg Q1H PRN PO ALCOHOL WITHDRAWAL PROTOCOL 09/22/24 20:30 09/29/24 20:29 DC Clopidogrel Bisulfate (plaVIX 75MG) 75 mg DAILY PO 09/24/24 09:00 09/26/24 07:14 DC 09/25/24 08:38 75 MG Clopidogrel Bisulfate (plaVIX 75MG) 75 mg DAILY PO 09/30/24 09:00 10/01/24 08:26 DC 09/30/24 08:49 75 MG Dexmedetomidine/ Sodium Chloride (PRECEdex 400MCG/ 100ML-NS) 400 mcg PROTOCOL IV 10/03/24 13:00 10/04/24 12:59 DC Dextrose (D50w) 50 ml AD PRN IV HYPOGLYCEMIA PROTOCOL 09/30/24 17:30 10/01/24 08:25 DC Dextrose (D50w) 50 ml AD PRN IV HYPOGLYCEMIA PROTOCOL 10/01/24 08:30 10/31/24 08:29 10/05/24 05:14 50 ML Dextrose (D50w) 50 ml AD PRN IV HYPOGLYCEMIA PROTOCOL 10/03/24 13:00 10/03/24 13:04 DC Dextrose/Sodium Chloride 1,000 ml @ 0 mls/hr AD IV 09/22/24 00:00 09/23/24 21:23 DC 09/22/24 09:49 150 MLS/HR Docusate Sodium (COLace 100MG CAP) 100 mg BID PO 10/03/24 21:00 11/02/24 20:59 10/05/24 09:21 100 MG Doxycycline Hyclate (Doxycycline Hyclate) 100 mg BID PO 09/21/24 21:00 09/30/24 23:59 DC 09/30/24 20:53 100 MG Epinephrine HCl 10 mg/Sodium Chloride 250 ml @ 0 mls/hr AD PRN IV TITRATE 10/03/24 10:00 11/02/24 09:59 10/04/24 06:35 7.4 MLS/HR Epinephrine HCl 10 mg/Sodium Chloride 250 ml @ 0 mls/hr AD PRN IV POST-OP CARDIOVASCULAR ORDERS 10/03/24 13:00 10/03/24 13:03 DC Epoetin Moses-epbx (Retacrit) 10,000 unit QMOWEFR SQ 10/01/24 09:00 10/31/24 08:59 10/01/24 15:34 10,000 UNIT Famotidine (Pepcid 20mg Vial) 10 mg DAILY IV 09/22/24 09:00 2/1/25 10:35 DC 09/27/24 09:09 10 MG Famotidine (Pepcid 20mg Vial) 20 mg Q48H IV 10/03/24 21:00 11/02/24 20:59 10/03/24 20:57 20 MG Famotidine (Pepcid 20mg Tab) 10 mg Q48H PO 09/21/24 19:30 09/21/24 20:00 DC Ferrous Sulfate (Ferrous Sulfate) 325 mg DAILY PO 09/23/24 09:00 10/23/24 08:59 10/05/24 09:20 325 MG Fish Oil (Fish Oil 1000 Mg/Cap) 2,000 mg BID PO 09/22/24 21:00 10/03/24 12:53 DC 10/02/24 20:38 2,000 MG Fluconazole/ Sodium Chloride (DiFLUCan 200 MG/ NS 100 ML) 200 mg Q24H IV 09/25/24 16:00 09/27/24 10:36 DC 09/26/24 14:38 200 MG Furosemide (LASix 40MG VIAL) 80 mg Q12H IV 09/22/24 21:00 09/26/24 15:22 DC 09/26/24 13:20 80 MG Gabapentin (NEURontin 100 mg CAP) 100 mg DAILY PO 10/01/24 09:00 10/24/24 20:59 10/05/24 09:20 100 MG Gabapentin (NEURontin 100 mg CAP) 100 mg TID PO 09/24/24 21:00 09/30/24 17:37 DC 09/30/24 14:07 100 MG Glucagon (Glucagon 1mg Kit) 1 mg AD PRN IM HYPOGLYCEMIA PROTOCOL 09/30/24 17:30 10/01/24 08:25 DC Glucagon (Glucagon 1mg Kit) 1 mg AD PRN IM HYPOGLYCEMIA PROTOCOL 10/01/24 08:30 10/31/24 08:29 Glucagon (Glucagon 1mg Kit) 1 mg AD PRN IM HYPOGLYCEMIA PROTOCOL 10/03/24 13:00 10/03/24 13:04 DC Guaifenesin/ Dextromethorphan (RobiTUSSin DM 200/20MG 10ML) 10 ml Q4H PRN PO COUGH 09/21/24 19:30 10/03/24 12:53 DC 09/23/24 22:06 10 ML Heparin Sodium (Porcine) (HEParin 5,000 UNIT VIAL) *calculation based on ACTUAL B... AD PRN IV HEPARIN PROTOCOL 09/21/24 19:30 09/26/24 07:14 DC Heparin Sodium (Porcine) (HEParin 5,000 UNIT VIAL) 10,000 unit AD IRRIG 09/27/24 14:00 10/27/24 13:59 10/01/24 17:18 10,000 UNIT Heparin Sodium/ Dextrose 250 ml @ 0 mls/hr Q6H IV 09/21/24 19:30 09/26/24 18:36 DC 09/25/24 04:13 14.7 MLS/HR Hydralazine HCl (APRESOLine 20MG INJ) 10 mg Q6H PRN IV ADMINISTER FOR SBP > 160 10/01/24 16:30 10/03/24 12:53 DC Insulin Glargine (LANtus 100 UNITS/ML 10 ML VIAL) 10 units BID@0730,2100 SQ 09/22/24 21:00 09/26/24 11:15 DC 09/25/24 20:44 10 UNITS Insulin Glargine (LANtus 100 UNITS/ML 10 ML VIAL) 10 units HS SQ 09/30/24 21:00 09/30/24 17:26 DC Insulin Glargine (LANtus 100 UNITS/ML 10 ML VIAL) 15 units BID@0730,2100 SQ 09/26/24 21:00 09/30/24 17:13 DC 09/30/24 07:03 15 UNITS Insulin Glargine (LANtus 100 UNITS/ML 10 ML VIAL) 20 units AM SQ 10/01/24 09:00 09/30/24 17:26 DC Insulin Glargine (LANtus 100 UNITS/ML 10 ML VIAL) 30 units HS SQ 09/30/24 21:00 10/02/24 07:19 DC 10/01/24 19:54 30 UNITS Insulin Glargine (LANtus 100 UNITS/ML 10 ML VIAL) 50 units BID SQ 10/02/24 21:00 10/03/24 12:53 DC 10/03/24 09:02 50 UNITS Insulin Glargine (LANtus 100 UNITS/ML 10 ML VIAL) 50 units DAILY SQ 10/02/24 07:30 10/02/24 16:53 DC 10/02/24 09:41 50 UNITS Insulin Human Lispro (HumaLOG LISpro 100 UNIT/ML 3ML) 7 unit TIDAC SQ 10/01/24 07:30 10/01/24 17:01 DC 10/01/24 16:22 7 UNIT Insulin Human Lispro (HumaLOG LISpro 100 UNIT/ML 3ML) 10 unit TIDAC SQ 10/01/24 17:00 10/01/24 19:41 DC Insulin Human Lispro (HumaLOG LISpro 100 UNIT/ML 3ML) 15 unit TIDAC SQ 10/02/24 07:30 10/02/24 07:20 DC 10/02/24 07:01 15 UNIT Insulin Human Lispro (HumaLOG LISpro 100 UNIT/ML 3ML) 20 unit TIDAC SQ 10/02/24 11:30 10/02/24 16:53 DC 10/02/24 11:48 20 UNIT Insulin Human Lispro (HumaLOG LISpro 100 UNIT/ML 3ML) 25 unit TIDAC SQ 10/02/24 17:00 10/03/24 12:53 DC 10/02/24 17:17 25 UNIT Insulin Human Regular (humuLIN R 100 UNIT/ML 3ML) INSULIN SLIDING SCAL... ACHS SQ 09/24/24 07:30 10/03/24 12:53 DC 10/03/24 05:48 10 UNIT Insulin Human Regular 100 unit/ Sodium Chloride 100 ml @ 0 mls/hr AD IV 10/03/24 13:00 10/05/24 12:59 DC 10/03/24 17:38 2 MLS/HR Insulin Human Regular 100 unit/ Sodium Chloride 101 ml @ 0 mls/hr PROTOCOL IV 09/21/24 20:00 09/23/24 21:20 DC 09/21/24 21:01 9.8 MLS/HR Insulin Human Regular 100 unit/ Sodium Chloride 101 ml @ 0 mls/hr PROTOCOL IV 09/22/24 00:00 09/22/24 00:03 DC Insulin Human Regular 100 unit/ Sodium Chloride 101 ml @ 0 mls/hr PROTOCOL IV 09/26/24 18:30 09/27/24 10:25 DC 09/26/24 18:36 10 MLS/HR Lactulose (Constulose 20gm/ 30ml Udcup) 20 gm BID PRN PO CONSTIPATION 10/03/24 13:00 11/02/24 12:59 Magnesium Hydroxide (Milk Of Magnesium 30ml) 30 ml DAILY PRN PO CONSTIPATION 10/03/24 13:00 11/02/24 12:59 Magnesium Sulfate 50 ml @ 12.5 mls/hr AD PRN IV MAG LEVEL LESS THAN 2.0 10/03/24 13:00 11/02/24 12:59 10/03/24 17:21 12.5 MLS/HR Magnesium Sulfate 50 ml @ 0 mls/hr PROTOCOL IV 09/22/24 00:00 09/23/24 21:23 DC Magnesium Sulfate 50 ml @ 0 mls/hr PROTOCOL IV 09/26/24 18:30 09/27/24 10:25 DC Magnesium Sulfate 50 ml @ 0 mls/hr PROTOCOL PRN IV OTH 09/22/24 00:00 09/22/24 00:04 DC 09/21/24 23:52 25 MLS/HR Mannitol 245 ml @ 0 mls/hr AD IV 09/22/24 00:30 09/22/24 20:17 DC Mannitol 500 ml @ 0 mls/hr AD IV 09/22/24 00:30 09/22/24 14:33 DC Mannitol (Osmitrol 20% 250ml Bag) 49 gm AD IV 09/22/24 00:00 09/22/24 00:28 DC Methylprednisolone Sodium Succinate (Solu-medROL 40MG) 40 mg BID IVP 09/22/24 09:00 09/27/24 10:35 DC 09/26/24 20:37 40 MG Metoprolol Succinate (TopROL XL) 25 mg BID PO 09/26/24 09:00 10/03/24 12:53 DC 10/03/24 08:55 25 MG Metoprolol Succinate (TopROL XL) 50 mg BID PO 09/24/24 21:00 09/26/24 07:14 DC 09/24/24 19:45 50 MG Metoprolol Tartrate (loprESSOR) 12.5 mg BID PO 09/22/24 21:00 09/24/24 16:38 DC 09/24/24 12:07 12.5 MG Miscellaneous Medication (Folic Acid/ Vitamin B Comp W-C ([place] Tablet)) 1 tab DAILY PO 09/23/24 09:00 09/22/24 15:56 DC Morphine Sulfate (morPHINE 2MG SYG) 0.5 mg Q2H PRN IV MODERATE PAIN (4-6) 10/03/24 13:00 10/04/24 10:49 DC 10/03/24 20:56 0.5 MG Morphine Sulfate (morPHINE 2MG SYG) 1 mg Q2H PRN IV SEVERE PAIN (7-10) 10/03/24 13:00 10/04/24 10:49 DC Morphine Sulfate (morPHINE 2MG SYG) 2 mg Q4H PRN IVP SEVERE PAIN (7-10) 09/26/24 01:30 10/01/24 04:29 DC Multivitamins Therapeutic (Multivitamin Tablet) 1 tab DAILY PO 09/23/24 09:00 10/23/24 08:59 10/05/24 09:20 1 TAB Nifedipine (adALAT 30MG) 60 mg DAILY PO 09/23/24 09:00 09/28/24 12:01 DC 09/25/24 08:37 60 MG Nitroglycerin (Nitroglycerin 1gm Oint) 0.5 inch Q8H TD 09/21/24 19:30 09/27/24 10:34 DC 09/25/24 12:44 0.5 INCH Nitroglycerin/ Dextrose 0 ml @ 0 mls/hr AD IV 10/03/24 13:00 10/06/24 12:59 Norepinephrine 250 ml @ 0 mls/hr AD PRN IV DIRECTED 09/26/24 01:30 09/27/24 10:34 DC 09/26/24 01:40 0 MLS/HR Norepinephrine Bitartrate 250 ml @ 0 mls/hr AD PRN IV TITRATE 10/03/24 10:00 11/02/24 09:59 Norepinephrine Bitartrate 8 mg/ Dextrose 250 ml @ 0 mls/hr AD PRN IV POST-OP CARDIOVASCULAR ORDERS 10/03/24 13:00 10/03/24 13:03 DC Ondansetron HCl (zoFRAN 4MG INJ) 4 mg Q6H PRN IV NAUSEA/VOMITING 10/03/24 13:00 11/02/24 12:59 10/04/24 16:35 4 MG Ondansetron HCl (zoFRAN 4MG INJ) 4 mg Q6H PRN IVP NAUSEA/VOMITING 09/26/24 01:30 10/03/24 12:53 DC 09/27/24 08:51 4 MG Oseltamivir Phosphate (Tamiflu) 75 mg DAILY PO 09/22/24 09:00 09/23/24 13:29 DC 09/23/24 08:38 75 MG Oseltamivir Phosphate (Tamiflu) 75 mg Q24H PO 09/26/24 17:00 09/27/24 17:01 DC 09/27/24 18:04 75 MG Oseltamivir Phosphate (Tamiflu) 75 mg QTUTHSA[DIALYSIS] PO 09/23/24 16:00 09/23/24 17:04 DC Oseltamivir Phosphate (Tamiflu) 75 mg QTUTHSA[DIALYSIS] PO 09/23/24 22:00 09/26/24 16:32 DC 09/25/24 16:09 75 MG Pantoprazole Sodium (PROTonix 40MG INJ) 40 mg BID IVP 09/27/24 21:00 10/03/24 12:53 DC 10/03/24 08:55 40 MG Pharmacy Profile Note (Pharmacy Communication) 1 each ONCE MISC 09/23/24 13:00 09/23/24 13:25 DC Pharmacy Profile Note (Pharmacy Communication) 1 each ONCE MISC 09/23/24 21:30 09/24/24 07:08 DC Pharmacy Profile Note (Pharmacy Communication) 1 each PROTOCOL PRN MISC ETOH Withdrawal Score changes 09/22/24 20:30 09/29/24 20:29 DC Piperacillin Sod/ Tazobactam Sod 50 ml @ 12.5 mls/hr Q12H IV 09/21/24 21:00 09/23/24 08:06 DC 09/22/24 20:43 12.5 MLS/HR Piperacillin Sod/ Tazobactam Sod (Zosyn 3.375gm+NS 50ml) 3.375 gm Q12H IV 09/26/24 11:30 10/06/24 11:29 10/05/24 11:31 3.375 GM Potassium Chloride 20 meq/ Sodium Chloride 1,010 ml @ 0 mls/hr PROTOCOL IV 09/22/24 00:00 09/23/24 21:23 DC Potassium Chloride/Dextrose/ Sod Cl 1,000 ml @ 0 mls/hr AD IV 09/22/24 00:00 09/23/24 21:23 DC Potassium Phosphate 250 ml @ 42 mls/hr AD PRN IV LOW PHOS LEVEL 10/03/24 13:00 11/02/24 12:59 Potassium Chloride 100 ml @ 100 mls/hr AD PRN IV HYPOKALEMIA 10/03/24 13:00 11/02/24 12:59 Prednisone (deltaSONE/ oraSONE 20MG TAB) 20 mg DAILY PO 09/28/24 09:00 10/01/24 08:59 DC 09/30/24 08:50 20 MG Propofol 100 ml @ 0 mls/hr AD PRN IV SEDATION 10/03/24 13:00 10/07/24 12:59 Sodium Bicarbonate (Sodium Bicarbonate) 650 mg TID PO 09/24/24 09:00 09/27/24 10:34 DC 09/26/24 20:36 650 MG Sodium Bicarbonate (Sodium Bicarb 50meq 50ml Vial) 50 meq AD PRN IV OTHER[SEE DOSING INSTRUCTIONS] 10/03/24 13:00 10/06/24 12:59 10/03/24 20:57 50 MEQ Sodium Chloride 250 ml @ 0 mls/hr Q0M IV 09/25/24 23:00 09/27/24 10:34 DC Sodium Chloride 500 ml @ 0 mls/hr AD IV 10/03/24 13:00 11/02/24 12:59 Sodium Chloride 1,000 ml @ 0 mls/hr ONCE IV 09/23/24 19:30 09/27/24 13:51 DC 09/26/24 12:15 1,000 MLS/HR Sodium Chloride 1,000 ml @ 0 mls/hr ONCE IV 09/27/24 14:30 09/27/24 13:51 DC Sodium Chloride 1,000 ml @ 0 mls/hr ONCE IV 09/27/24 15:00 10/27/24 14:59 10/03/24 17:22 10 MLS/HR Sodium Chloride 1,000 ml @ 10 mls/hr ONCE IV 10/03/24 13:00 10/04/24 12:59 DC Sodium Chloride 1,000 ml @ 100 mls/hr Q10H IV 09/21/24 19:30 09/27/24 10:34 DC 09/23/24 12:53 100 MLS/HR Sodium Chloride 1,000 ml @ 200 mls/hr PROTOCOL IV 09/22/24 00:00 09/23/24 21:23 DC Sodium Chloride (NS Flush 10ml) 10 ml Q8H PRN IVP IV LINE FLUSH 10/03/24 13:00 11/02/24 12:59 Thiamine HCl 100 mg/Folic Acid 1 mg/Multivitamins/ Minerals 10 ml/ Sodium Chloride 1,011.2 ml @ 100 mls/ hr Q24H IV 09/22/24 20:30 09/25/24 06:37 DC 09/22/24 20:43 100 MLS/HR Tramadol HCl (UltRAM) 25 mg Q6H PRN PO MODERATE PAIN (4-6) 10/03/24 13:00 10/08/24 12:59 Tramadol HCl (UltRAM) 50 mg Q6H PRN PO SEVERE PAIN (7-10) 10/03/24 13:00 10/08/24 12:59 10/05/24 11:20 50 MG Vancomycin HCl 250 ml @ 125 mls/hr Q72H IV 09/22/24 20:30 09/23/24 08:04 DC 09/22/24 20:48 125 MLS/HR Vancomycin HCl (Vancomycin 500mg+NS 100ml Ivpb) 1,000 mg DAILY08 IV 09/23/24 08:00 09/22/24 20:26 DC Vancomycin HCl (Vancomycin 750mg) 750 mg MWFPHD IVPB 09/26/24 16:00 10/03/24 23:29 DC Vancomycin HCl (Vancomycin 750mg) 750 mg Q24H IVPB 09/23/24 23:30 09/25/24 06:26 DC 09/24/24 22:43 750 MG Vasopressin 20 units/Sodium Chloride 100 ml @ 0 mls/hr PROTOCOL IV 10/03/24 19:30 11/02/24 19:29 10/04/24 06:34 9 MLS/HR Vitamin B Complex/ Vit C/Folic Acid (Nephrovite Tablet) 1 cap DAILY PO 09/23/24 09:00 10/23/24 08:59 10/05/24 09:20 1 CAP DIAGNOSTICS / RADIOLOGY: REASON: SOB ORDERING PHYSICIAN: CANDIDA SZYMANSKI MD PROCEDURE: CXR1VW - CHEST 1VW FRONTAL CHEST RADIOGRAPH INDICATION: SOB COMPARISON: 10/04/2024 FINDINGS/IMPRESSION: furniture refinisher leads overlie the field of view. Median sternotomy wires as well as fixation plates and screws are in appropriate alignment. Defibrillator patch has been removed. Stable [place]-Saba catheter and pleural mediastinal drainage catheters. Stable heart size and residual mild central pulmonary vascular congestion. Mild bilateral perihilar atelectasis and suspect trace left pleural fluid with subjacent subsegmental atelectasis, but no evidence for pneumothorax. ASSESSMENT: Hyperosmolar Hyperglycemic Syndrome POA NSTEMI POA Influenza bronchopneumonia with sepsis POA Acute Hypoxemic Respiratory Failure POA Acute on chronic renal failure with concern for ATN POA Metabolic acidosis POA Lactic acidosis POA CKD stage 4 POA Uncontrolled Diabetes POA Protein Calorie malnutrition POA PLAN: POD [address] Szymanski Hemodialysis as per nephrology recommendations Iron profile and APR labs Continue broad-spectrum antibiotics Continue to trend WBC in Continue to replace electrolytes IV protocol Continue the patient on long-acting as well as insulin sliding scale Follow a.m. labs GI and DVT prophylaxis Disposition: Pending improvement in clinical condition ATTESTATION BY PHYSICIAN I have seen and examined the patient. I reviewed the documentation, medical decision making, and treatment plan as noted by the resident provider above. I agree with the findings and plan of care. Dieudonne Farley MD, NIHITHA MD Oct 05, 2024 13:21
--- NOTE | 2024-10-05 14:18 | PN ---
NEPHROLOGY PROGRESS NOTE Date/Time Patient Seen: Oct 05, 2024 Reason for Consultation: 14:16 SUBJECTIVE: This is a 49-year-old male with past medical history of CKD, diabetes, hypertension, hyperlipidemia and obesity He presents to the ED for complaints of cough and chest congestion Patient reports coughing up pinkish colored thick phlegm, loss of appetite and on Sunday Positive for influenza A, Chest x-ray result revealed extensive bilateral mid to lower lung pneumonia right greater than left. Coronary CTA that showed severe stenosis ( Prox-mid LAD 90 % stenosis, Prox and mid LCx 90 % stenosis ) CAD -RAD 4 A S/P coronary angiogram yesterday and was found with severe 2 vessel CAD in the LAD and Left Cx, S/p CABGx3 on 10/03/2024 He has been extubated and vasopressors has been discontinued. He was noted with elevated BUN/creatinine. We will has been consulted for renal failure. Renal function continued to worsen He has been initiated on renal replacement therapy Tolerating dialysis without difficulty He continues to complain of generalized edema. Case management coordinating outpatient dialysis chair [facility] He was seen in the medical floor, in no acute distress Family at the bedside Prognosis remains guarded REVIEW OF SYSTEMS: GENERAL: Positive for cough, congestion and generalized weakness NEUROLOGIC: Negative for any blurry vision, blind spots, double vision, facial asymmetry, dysphagia, dysarthria, hemiparesis, hemisensory deficits, vertigo, ataxia. HEENT: Negative for any head trauma, neck trauma, neck stiffness, photophobia, phonophobia, sinusitis, rhinitis. CARDIAC: Negative for any chest pain, dyspnea on exertion, paroxysmal nocturnal dyspnea, peripheral edema. PULMONARY: Negative for any shortness of breath, wheezing, COPD, or TB exposure. GASTROINTESTINAL: Negative for any abdominal pain, nausea, vomiting, bright red blood per rectum, melena. GENITOURINARY: Negative for any dysuria, hematuria, incontinence. INTEGUMENTARY: Negative for any rashes, cuts, insect bites. RHEUMATOLOGIC: Negative for any joint pains, photosensitive rashes, history of vasculitis or kidney problems. HEMATOLOGIC: Negative for any abnormal bruising, frequent infections or bleeding. PHYSICAL EXAM: GENERAL: Alert and oriented x 3. No acute distress. Well-nourished. EYES: EOMI. Anicteric. HENT: Moist mucous membranes. No scleral icterus. No cervical lymphadenopathy. LUNGS: Clear to auscultation bilaterally. No accessory muscle use. CARDIOVASCULAR: Regular rate and rhythm. No murmur. No JVD. ABDOMEN: Soft, non-tender and non-distended. No palpable masses. EXTREMITIES: 2+ edema. Non-tender. SKIN: No rashes or lesions. Warm. NEUROLOGIC: No focal neurological deficits. CN II-XII grossly intact, but not individually tested. PSYCHIATRIC: Cooperative. Appropriate mood and affect. LABORATORY: [ ] Hematology Labs: Test 10/05/24 10:20 10/05/24 05:39 Range/Units Hemoglobin 8.1 #L 14.0-18.0 g/dL Hematocrit 25.5 #L 42-54 % White Blood Count 9.1 4.8-10.8 K/uL Red Blood Count 2.29 L 4.50-6.20 MIL/uL Mean Corpuscular Volume 89.1 79-99 fL Mean Corpuscular Hemoglobin 28.8 27.0-33.0 pg Mean Corpuscular Hemoglobin Concent 32.4 32.0-36.0 g/dL Red Cell Distribution Width 17.2 H 11.0-15.5 % Platelet Count 58 #L 130-400 K/uL Mean Platelet Volume 10.9 H 7.5-10.5 fL Nucleated Red Blood Cells 0.2 H 0.0-0.19 % Platelet Morphology Comment See comments Chemistry Labs: Test 10/05/24 05:39 10/05/24 03:34 10/04/24 03:55 Range/Units Sodium Level 148 H 136-145 mmol/L Potassium Level 5.2 H 3.5-5.1 mmol/L Chloride Level 104 101-111 mmol/L Carbon Dioxide Level 32 21-32 mmol/L Blood Urea Nitrogen 55 H 7-18 mg/dL Creatinine 7.9 H 0.5-1.3 mg/dL Glomerular Filtration Rate Calc 8 >90 mL/min Random Glucose 89 70-105 mg/dL Total Calcium 7.8 L 8.5-10.1 mg/dL Phosphorus Level 8.0 H 2.5-4.9 mg/dL Magnesium Level 2.00 1.80-2.40 mg/dL Total Bilirubin 0.3 0.2-1.0 mg/dL Aspartate Amino Transf (AST/SGOT) 53 H 10-37 U/L Alanine Aminotransferase (ALT/SGPT) 63 12-78 U/L Alkaline Phosphatase 72 50-136 U/L Total Protein 5.1 L 6.0-8.3 g/dL Albumin 2.5 L 3.5-5.0 g/dL Whole Blood Glucose 82 70-110 MG/DL Ionized Calcium 1.11 L 1.16-1.32 MMOL/L Coagulation Labs: Test 10/05/24 05:39 Range/Units Prothrombin Time 10.9 9.6-11.6 SEC Prothromb Time International Ratio 0.97 0.85-1.15 Activated Partial Thromboplast Time 31.6 26.3-35.5 SEC DIAGNOSTICS / RADIOLOGY: REASON: SOB ORDERING PHYSICIAN: CANDIDA SZYMANSKI MD PROCEDURE: CXR1VW - CHEST 1VW FRONTAL CHEST RADIOGRAPH INDICATION: SOB COMPARISON: 10/04/2024 FINDINGS/IMPRESSION: yard switcher leads overlie the field of view. Median sternotomy wires as well as fixation plates and screws are in appropriate alignment. Defibrillator patch has been removed. Stable [place]-Saba catheter and pleural mediastinal drainage catheters. Stable heart size and residual mild central pulmonary vascular congestion. Mild bilateral perihilar atelectasis and suspect trace left pleural fluid with subjacent subsegmental atelectasis, but no evidence for pneumothorax. DICTATED BY: AGUS MC MD DATE: 10/05/24 1020 REASON: s/p CABG ORDERING PHYSICIAN: CANDIDA SZYMANSKI MD PROCEDURE: CXR1VW - CHEST 1VW CHEST 1VW CLINICAL HISTORY: s/p CABG COMPARISON: 10/13/2024 TECHNIQUE: Single view of the chest was obtained. FINDINGS: There has been interval extubation. The remaining supporting lines and tubes are stable. There is mild pulmonary edema or congestive failure. There is worsening retrocardiac left lower lobe increased opacification. The cardiomediastinal silhouette and bony structures stable. IMPRESSION: Slightly worsened airspace disease status post extubation. DICTATED BY: HEIDI VERMA DO DATE: 10/04/24 1319 REASON: preop CABG ORDERING PHYSICIAN: CANDIDA SZYMANSKI MD PROCEDURE: CXR1VW - CHEST 1VW Exam Type: CHEST 1VW Clinical Information: preop CABG Comparison: None Findings: Right permacath line is noted with tip at the distal superior vena caval level. The lungs are clear of infiltrates. The heart is normal in size. The bony and soft tissue structures of the chest are unremarkable. Impression: Clear lungs. DICTATED BY: ORTIZ BENITES MD DATE: 10/03/24 0838 REASON: sob ORDERING PHYSICIAN: MARIELOS VALLEJO PROCEDURE: CXR1VW - CHEST 1VW Exam Type: CHEST 1VW Clinical Information: sob Comparison: None Findings: Right permacath line is noted with tip at the distal superior vena caval level. There is cardiomegaly. There is prominence of the vascular markings consistent with pulmonary venous congestion. IMPRESSION: Findings consistent with pulmonary venous congestion. DICTATED BY: ORTIZ BENITES MD DATE: 10/01/24 1905 REASON: preop CABG ORDERING PHYSICIAN: CANDIDA SZYMANSKI MD PROCEDURE: CAROTID - US CAROTID DUPLEX Carotid Duplex and color-flow Doppler bilateral History: preop CABG Comparison: None Findings: No significant plaque is identified on either side. Left Internal Carotid Artery Peak Systolic Velocity (PSV), Left Internal Carotid to Common Carotid Artery peak systolic velocity ratio, Right Internal Carotid Artery Peak Systolic Velocity (PSV) and Right Internal Carotid to Common Carotid Artery peak systolic velocity ratio, are all within normal limits. External carotid artery velocities normal bilaterally. Bilateral vertebral arteries show antegrade flow. Impression: Normal exam. NASCET CRITERIA. The degree of internal carotid artery stenosis is based on NASCET criteria. Normal is no stenosis. Mild is less than 50% stenosis. Moderate is 50-69% stenosis. Severe is 70% to 99% stenosis. Total occlusion is no detectable patent lumen. DICTATED BY: ORTIZ BENITES MD DATE: 10/01/24 1621 REASON: nstemi ORDERING PHYSICIAN: ARIELA CHOI MD PROCEDURE: CTCAWC - CT CARDIAC ANGIO W/CONT. CCTA CT OF THE CHEST WITH CONTRAST- CT Cardiac Angio co-interpretation This is done as part of the CT cardiac angiogram study. The interpretation of the coronary arteries will be done by head field hockey coach in a separate report. History: over-read Comparison: none CT Dose Index (CTDI): 77.90 mGy Dose Length Product (DLP): 493.40 total mGy PROTOCOL: Examination is done at 2.5 millimeter volumetric acquisition after contrast administration with Isovue 370, 100 cc IV, without complications. Photography is done at 5 millimeter thick intervals for the thorax. The examination begins above the heart and therefore the lung apices are incompletely included. The rest of the left lung is included but the right lung is only included up to its middle third. The periphery of the right lung is not included in the study. FINDINGS: The visualized part of the airway is preserved. The bony and soft tissue structures of the chest wall are unremarkable. The aorta is unremarkable. No mediastinal lymphadenopathy is seen. The appendix is distended and there are surrounding inflammatory changes and the possibility of acute appendicitis cannot be excluded. There is no evidence of pulmonary embolism in the visualized lung segments. The upper abdominal views are unremarkable. Impression: NoThe appendix is distended and there are surrounding inflammatory changes and the possibility of acute appendicitis cannot be excluded. DICTATED BY: ORTIZ BENITES MD DATE: 09/29/24 1453 REASON: assess liver cirrhosis and CBD dilation ORDERING PHYSICIAN: SHAVON ARAGON PROCEDURE: ABDOMEN - US ABDOMINAL COMPLETE US ABDOMINAL COMPLETE HISTORY: No additional history given. COMPARISON: None TECHNIQUE: Multiple transverse and longitudinal ultrasound images of the abdomen were obtained. FINDINGS: Abdominal aorta and inferior vena cava are unremarkable. The visualized portion of the pancreas is within normal limits. Portal vein is patent. Liver measures 17 cm. Liver is echogenic consistent with liver parenchymal disease. No gallstone is seen. Common duct measures 4 mm. No evidence of gallbladder wall thickening is seen. Both kidneys are seen. Right kidney measures 10.3 x 4.9 x 5 cm. Left kidney measures 10.3 x 6.4 x 3 cm. No hydronephrosis is seen of the both kidneys. Spleen measures 12 cm. The spleen is grossly unremarkable. IMPRESSION: 1. No gallstone or ductal dilatation is seen. 2. No hydronephrosis is seen. DICTATED BY: JENNIFER MESA MD DATE: 09/28/24 1528 REASON: hypoxic resp failure ORDERING PHYSICIAN: SHAVON ARAGON PROCEDURE: CXR1VW - CHEST 1VW CHEST 1VW REASON: hypoxic resp failure COMPARISON: 09/23/2024 FINDINGS: There are diffuse bilateral infiltrates which are unchanged. Dialysis catheter remains in place. There is no pneumothorax or other complication. There are no pleural effusions. IMPRESSION: 1. Extensive bilateral infiltrates unchanged. DICTATED BY: ARMANDO FAIR MD DATE: 09/24/24 1051 REASON: FVO ORDERING PHYSICIAN: CHELSEY,HEINY A LEVELER PROCEDURE: ECHO CMP - ECHO 2-D COMPLETE APPROVED REPORT EXAM: Two-dimensional and M-mode echocardiogram with Doppler and color Doppler. INDICATION ICD: Fluid volume overload 2D Dimensions RVDd 4.4 cm LVEF(%) 41.1 (>50%) LVED Vol(simp.) 176.0 mL IVSd 1.0 (0.7-1.1cm) FS(%) 20 % LVES Vol(simp.) 104.0 mL LVDd 5.4 (3.8-5.6cm) LA (2D) 4.1 (1.6-4.0cm) LVEF(%, simp.) 41 % PWd 1.4 (0.7-1.1cm) Ao Root(2D) 2.9 (2.0-3.7cm) LA ESV INDEX (4CH) 33.40 mL/m2 IVSs 1.2 cm LVOT diam 2.0 (1.8-2.4cm) LA ESV INDEX (2CH) 45.20 mL/m2 LVDs 4.3 (2.5-4.0cm) IVC diam 2.1 cm LA ESV INDEX (BP) 39.50 mL/m2 PWs 2.0 cm Deformation Strain Apical 4 -9.0 % Apical 2 -9.0 % Apical 3 -9.0 % Global Strain -9.0 % M-Mode Dimensions EPSS 1.7 cm LA (MM) 3.4 (1.6-4.0cm) Ao Root(MM) 3.3 (2.0-3.7cm) Aortic Valve AoV VTI 0.3 m Ao Mean GR 9.0 mmHg LVOT VTI 0.20 m STEPHANIE (VMAX) 1.9 cm2 STEPHANIE (VTI) 1.9 cm2 Mitral Valve MV E Vmax 149.3 cm/s DECEL Time 78 ms P 1/2 T 56 ms MVA (PHT) 3.9 cm2 TDI E/E' Medial 19.4 E/E' Lateral 11.8 Medial E' Peak V 7.70 cm/s Lateral E' Peak V 12.70 cm/s Tricuspid Valve RAP (EST) 8 mmHg RVSP 8.0 mmHg Left Ventricle The left ventricle is normal size. The inferior wall is severely hypokinetic. The other ibrahim are hypokinetic. Moderate concentric hypertrophy of the left ventricle is noted. Left ventricle systolic function is moderate to severely depressed, estimated LVEF 35 to 40%. E to E ratio is greater than 14, which is suggestive of increased left ventricle end-diastolic filling pressures. Right Ventricle The right ventricle is dilated. The right ventricular systolic function is normal. Atria The left atrium is mildly dilated, 40 mL/m. The right atrium is dilated. Aortic Valve Aortic valve is probably trileaflet. The leaflets are severely thickened and calcified. Trace aortic regurgitation. Mild aortic stenosis: Peak velocity 2.0 m/s, mean gradient 9 mmHg Mitral Valve Mild mitral annular calcification is noted. The leaflets are mild thickened and calcified. Trace mitral regurgitation. There is no mitral valve stenosis. Tricuspid Valve The tricuspid valve is normal in structure. Trace tricuspid regurgitation. RVSP is grossly normal, but is likely underestimated. Pulmonic Valve Pulmonic valve is not well visualized. Great Vessels The aortic root is normal in size. The IVC is normal in size and collapses <50% with inspiration. Pericardium Trace pericardial effusion. Other Information Quality : Technically difficult due to body habitus Conclusion The left atrium is mildly dilated, 40 mL/m. The right atrium is dilated. The right ventricle is dilated. Moderate concentric hypertrophy of the left ventricle is noted. The inferior wall is severely hypokinetic. The other ibrahim are hypokinetic. Left ventricle systolic function is moderate to severely depressed, estimated LVEF 35 to 40%. E to E ratio is greater than 14, which is suggestive of increased left ventricle end-diastolic filling pressures. Mild aortic stenosis: Peak velocity 2.0 m/s, mean gradient 9 mmHg (likely underestimated). Trace aortic regurgitation. Trace mitral regurgitation. Trace pericardial effusion. PASP is grossly normal, but is likely under estimated. Trace pericardial effusion. DICTATED BY: RONALD AGUAYO MD DATE: 09/23/24 0731 REASON: acute renal failure ORDERING PHYSICIAN: TERRANCE CHAN PROCEDURE: RENAL - US RENAL SONOGRAM US RENAL SONOGRAM REASON: acute renal failure COMPARISON: None TECHNIQUE: Renal and bladder sonogram was performed. FINDINGS: Right kidney is 11.3 x 4.9 x 4.7 cm, left is 11.5 x 5.5 x 4.4 cm. There is no mass, stone or hydronephrosis. Cortical thickness appears preserved. Echogenicity appears normal. The urinary bladder appears normal as well. IMPRESSION: 1. Normal renal and bladder sonogram. DICTATED BY: ARMANDO FAIR MD DATE: 09/22/24 112 REASON: sob ORDERING PHYSICIAN: TERRANCE CHAN PROCEDURE: CHEST WO - CT CHEST W/O CONTRAST CT CHEST WITHOUT CONTRAST INDICATION: Bilateral lung pneumonia TECHNIQUE: Routine axial images using 5 mm slice thickness were acquired from the lung apices to the bases without the administration of IV contrast.Coronal and sagittal reformatted images acquired for interpretation. CT was performed with one or more of the following dose reduction techniques: Automated exposure control, adjustment of the mA and/or kV according to patient size, or use of iterative reconstruction technique. COMPARISON: None FINDINGS: The heart size is normal. Coronary arterial wall calcific plaque noted. No pericardial effusion noted. Mild calcific plaque is present along the aortic arch and thoracic aortic ibrahim without aneurysmal dilation. The trachea and airways are patent. Coalescent "ground-glass" opacities with intermixed consolidation/nodularity noted throughout the bilateral lungs in a centrilobular distribution. No axillary, hilar, or mediastinal lymphadenopathy. No pleural effusion or pneumothorax identified. Limited views of the upper abdomen appear normal. Visible osseous structures are intact. IMPRESSION: Extensive bilateral lung pneumonia. Arteriosclerotic disease as described. DICTATED BY: AGUS MC MD DATE: 09/21/242025 REASON: cough, shortness of breath ORDERING PHYSICIAN: HEBER CABRERA NP PROCEDURE: CXR1VW - CHEST 1VW PORTABLE CHEST RADIOGRAPH INDICATION: cough, shortness of breath COMPARISON: 04/05/2024 FINDINGS: Heart size is normal. The pulmonary vascularity and eder appear normal. Extensive coalescent/consolidative bilateral mid to lower lung opacities, right greater than left. No significant pleural effusion noted. No pneumothorax detected. IMPRESSION: Extensive bilateral mid to lower lung pneumonia, right greater than left. DICTATED BY: AGUS MC MD DATE: 09/21/241899 ASSESSMENT: Volume overload End-stage renal disease Hyperosmolar Hyperglycemic Syndrome NSTEMI Influenza A Acute Hypoxemic Respiratory Failure Metabolic acidosis Lactic acidosis CKD stage 4 Uncontrolled Diabetes Protein Calorie malnutrition PLAN: Labs, diagnostic, radiologic exams reviewed and interpreted by myself and supervising physician. We have reviewed external records in detail Dialysis planned for later today. We will continue to monitor the patient closely Case management to coordinate outpatient dialysis chair [facility]. Preserve nondominant arm Require close monitoring of renal function and electrolytes Order CBC, CMP,and electrolytes in am Continue with antibiotics IV pressors as needed Renal diabetic diet BiPAP as necessary, for respiratory distress Monitor blood pressure adjust medication doses as needed Avoid hypotensive episodes May use Dilaudid 0.5 mg IV every 6 hours as needed for severe pain Monitor blood sugars Strict intake, output, and daily weight should be monitored Please renally adjust medications Avoid nephrotoxic and nonsteroidal drugs Avoid contrast if possible Will continue to monitor renal function, anemia, electrolytes Treatment plan discussed with patient Questions were answered We have discussed with the other team physicians in detail about the care plan Total critical care time spent with patient, nursing staff, critical care team over 35 minutes ATTESTATION BY PHYSICIAN I have seen and examined the patient. I reviewed the documentation, medical decision making, and treatment plan as noted by the mid-level provider above. I agree with the findings and plan of care. BRAYDON HOLLINGSWORTH MD, [facility] Oct 05, 2024 14:18
--- NOTE | 2024-10-05 14:22 | PN ---
[facility] CARDIOLOGY PROGRESS NOTE Date Patient Seen: Oct 05, 2024 Time of Visit: 14:15 Interval History: This 49-year-old [place] male with a history of hypertension, hyperlipidemia, type 2 diabetes mellitus, end-stage renal disease on chronic hemodialysis admitted with a non STEMI and volume overload. Cardiac catheterization demonstrated severe two-vessel coronary disease involving the LAD and left circumflex. He underwent coronary artery bypass surgery x3 vessels 10/03/2024 with APARICIO to the LAD, saphenous vein graft to the posterolateral branch of the left circumflex, and saphenous vein graft to the PDA. Intraoperative notes were of a very small obtuse marginal branches and the left circumflex posterolateral branch measured about 1 mm. The patient has had no perioperative arrhythmias, and today is postoperative day 2. He underwent hemodialysis yesterday. His chest x-ray today demonstrates persisting pulmonary edema changes left greater than right. Physical Examination: GENERAL: No acute distress. HEAD: Normal with no signs of head trauma. EYES: PERRLA, EOMI, conjunctiva and sclera normal. NECK: Supple without JVD. There is no tenderness, lymphadenopathy, or masses. No thyromegaly. Normal carotid upstrokes without bruits. LUNGS: Diminished breath sounds with wheezes, or rhonchi. Sternotomy dressing dry and intact. HEART: Normal rate and rhythm. Normal S1 and S2 without gallop or rub. There is a 1/6 early peaking systolic ejection murmur loudest at the right upper sternal border. VASC: Peripheral pulses +2 bilaterally. EXT: No clubbing, cyanosis or edema. NEURO: Awake, alert, and oriented x3. No focal neurological deficits noted. Laboratory: Hematology Labs: Test 10/05/24 10:20 10/05/24 05:39 Range/Units Hemoglobin 8.1 #L 14.0-18.0 g/dL Hematocrit 25.5 #L 42-54 % White Blood Count 9.1 4.8-10.8 K/uL Red Blood Count 2.29 L 4.50-6.20 MIL/uL Mean Corpuscular Volume 89.1 79-99 fL Mean Corpuscular Hemoglobin 28.8 27.0-33.0 pg Mean Corpuscular Hemoglobin Concent 32.4 32.0-36.0 g/dL Red Cell Distribution Width 17.2 H 11.0-15.5 % Platelet Count 58 #L 130-400 K/uL Mean Platelet Volume 10.9 H 7.5-10.5 fL Nucleated Red Blood Cells 0.2 H 0.0-0.19 % Platelet Morphology Comment See comments Chemistry Labs: Test 10/05/24 05:39 10/05/24 03:34 10/04/24 03:55 Range/Units Sodium Level 148 H 136-145 mmol/L Potassium Level 5.2 H 3.5-5.1 mmol/L Chloride Level 104 101-111 mmol/L Carbon Dioxide Level 32 21-32 mmol/L Blood Urea Nitrogen 55 H 7-18 mg/dL Creatinine 7.9 H 0.5-1.3 mg/dL Glomerular Filtration Rate Calc 8 >90 mL/min Random Glucose 89 70-105 mg/dL Total Calcium 7.8 L 8.5-10.1 mg/dL Phosphorus Level 8.0 H 2.5-4.9 mg/dL Magnesium Level 2.00 1.80-2.40 mg/dL Total Bilirubin 0.3 0.2-1.0 mg/dL Aspartate Amino Transf (AST/SGOT) 53 H 10-37 U/L Alanine Aminotransferase (ALT/SGPT) 63 12-78 U/L Alkaline Phosphatase 72 50-136 U/L Total Protein 5.1 L 6.0-8.3 g/dL Albumin 2.5 L 3.5-5.0 g/dL Whole Blood Glucose 82 70-110 MG/DL Ionized Calcium 1.11 L 1.16-1.32 MMOL/L Coagulation Labs: Test 10/05/24 05:39 Range/Units Prothrombin Time 10.9 9.6-11.6 SEC Prothromb Time International Ratio 0.97 0.85-1.15 Activated Partial Thromboplast Time 31.6 26.3-35.5 SEC Diagnostics / Radiology: 2D echo 09/23/2024: The left atrium is mildly dilated, 40 mL/m. The right atrium is dilated. The right ventricle is dilated. Moderate concentric hypertrophy of the left ventricle is noted. The inferior wall is severely hypokinetic. The other ibrahim are hypokinetic. Left ventricle systolic function is moderate to severely depressed, estimated LVEF 35 to 40%. E to E ratio is greater than 14, which is suggestive of increased left ventricle end-diastolic filling pressures. Mild aortic stenosis: Peak velocity 2.0 m/s, mean gradient 9 mmHg (likely underestimated). Trace aortic regurgitation. Trace mitral regurgitation. Trace pericardial effusion. PASP is grossly normal, but is likely under estimated. Trace pericardial effusion. DICTATED BY: RONALD AGUAYO MD DATE: 09/23/24 0731 Impression and Plan: Non ST segment elevation myocardial infarction: Severe two-vessel coronary artery disease involving the LAD and left circumflex status post CABG x3 with APARICIO to the LAD, saphenous vein graft to the left PLVB, and saphenous vein graft to the PDA 10/03/2024 (intraoperative note of very small obtuse marginal branches and a small left PLV measuring 1 mm), postoperative day 2: -plan for dual antiplatelet therapy for one year post a non STEMI, hold pending resolution of postoperative thrombocytopenia -plan for high-intensity statin therapy with atorvastatin 40 mg daily -routine postoperative beta-halima therapy Postoperative thrombocytopenia 79,000 10/04/2024 and [id number] on 10/05/2024: -continue to monitor -If no improvement in 24-48 hours proceed with HIT antibodies Moderate ischemic cardiomyopathy with LVEF 35-40% by 2D echocardiogram 09/23/2024: Acute on chronic HFrEF: -continue fluid removal on hemodialysis -Begin guideline directed medical therapy as blood pressure will permit over the next few days End-stage renal disease, status post initiation of hemodialysis on current admission: -chest x-ray demonstrates CHF/volume overload, continue fluid removal on hemodialysis Influenza bronchopneumonia with sepsis POA: Acute hypoxemic respiratory failure: -prolonged hospitalization thus far Comorbidities: Type 2 diabetes with circulatory and renal manifestations Hyperosmolar Hyperglycemic Syndrome Hypertension Hyperlipidemia Protein calorie malnutrition YO MELENDEZ MD Oct 05, 2024 14:22
[2024-10-05] MEDS: ALBUMIN HUMAN 25% 100 ML IV ONE (16:18)
[2024-10-05] MEDS: ALBUMIN (HUMAN) 25% 50 ML IV.SOLN. IV SCH (16:18)
[2024-10-05] MEDS: INSULIN humuLIN R 100 UNIT/ML 3ML SQ SCH (16:30)
[2024-10-05 18:12] LABS: HEMATOCRIT 23.9 % (42-54)
--- NOTE | 2024-10-05 20:22 | PN ---
SUBJECTIVE: The patient is postop day #2 from a coronary artery bypass grafting. The patient has been doing well, but remains on a low dose of epinephrine (0.02 mcg per kilo per minute). OBJECTIVE: VITAL SIGNS: Reveal pulse of 105, blood pressure is 173/65, oxygen saturations are 97%. HEENT: Reveals normocephalic, atraumatic. Extraocular movements are intact. He has nasal cannula oxygen prongs under his nose. He has perma catheter exiting his right supraclavicular region. He has a left sided Will[place]-Saba catheter, reading a cardiac index of 3.3 liters per minute per meter squared. CHEST: His sternal wound is bandaged. His chest tubes are in place. He has a right radial art line. He has a right femoral art line. ABDOMEN: Reveals mild to moderate obesity with positive bowel sounds. LUNGS: Unlabored at rest on nasal cannula oxygen. EXTREMITIES: He has SCDs on both lower extremities. LABORATORY DATA: His hemoglobin this morning was 6.6. ASSESSMENT AND PLAN: * Status post coronary artery bypass grafting. Wean off of epinephrine drip. Continue aspirin. Begin beta-halima once off of epinephrine and discontinue Will[place]-Saba catheter once off of epinephrine drip. Keep chest tubes in place until the patient is sat up in a bedside chair. * Postoperative acute pulmonary insufficiency secondary to thoracic surgery. Support oxygen needs to maintain oxygen saturation greater than 90%. Encourage incentive spirometry. The patient up out of bed once the femoral art line is out. * Hypercholesterolemia. Lipitor 40 mg p.o. at bedtime, low cholesterol, cardiac diet. * End-stage renal disease. Hemodialysis as directed by Nephrology. * Deep venous thrombosis prophylaxis. Maintain sequential compression devices to lower extremities until chest tubes are out, at which time low dose Lovenox will be started. TID: [id number] RECEIPT: [id number]
--- NOTE | 2024-10-05 21:38 | PN ---
SUBJECTIVE: The patient has been seen in the ICU several times. The patient has been swollen and is short of breath. We decided to do a dialysis, seen for dialysis multiple times. The patient is status post CABG, anemia, and multiple other comorbidities. No other associated finding. No other aggravating or relieving factors. The patient is generally weak. PHYSICAL EXAMINATION: VITAL SIGNS: Blood pressure has been 123/63, pulse 93, respiratory rate 12. HEENT: Head is atraumatic. Pupils are round and reactive. Neck has been supple. No masses or bruits. LABORATORY DATA: Have been reviewed. Old records reviewed. PROBLEMS: Anemia, fluid overload, status post coronary artery bypass graft, and renal failure is end-stage. PLAN: Continue dialysis support. Followup on renal function. Transfuse as necessary. Epogen as needed. Seen for dialysis and seen several times. TID: [id number] RECEIPT: [id number]
[2024-10-06] VITALS (53 sets, daily range): BP systolic 98–155; BP diastolic 43–76; PULSE 86–108; RESP 6–19; TEMP 97.7–99.2; O2SAT 94–99
[2024-10-06] MEDS: guaiFENesin-DM 200/20MG 10ML PO PRN (01:35)
[2024-10-06 05:05] LABS: POTASSIUM 4.7 mmol/L (3.5-5.1)
[2024-10-06 05:06] LABS: HEMATOCRIT 22.8 % (42-54); MEAN CORPUSCULAR HEMOGLOBIN 28.1 pg (27.0-33.0); MEAN CORPUSCULAR VOLUME 87.7 fL (79-99); PLATELET COUNT (AUTO) 39 K/uL (130-400); RED CELL DISTRIBUTION WIDTH 16.4 % (11.0-15.5); WHITE BLOOD COUNT (AUTO) 6.1 K/uL (4.8-10.8)
--- NOTE | 2024-10-06 06:12 | PN ---
endocrinology progress note Date of Service: 10/06/2024 HISTORY OF PRESENT ILLNESS: s/p CABG and extubated now. patient is off insulin drip. home regimen: novolin 70/30 insulin 70 units twice per day. glucose are controlled but mildly elevated now. REVIEW OF SYSTEMS extubated now PAST MEDICAL HISTORY: Chronic kidney disease Diabetes type 2 Hypertension Hyperlipidemia Obesity PAST SURGICAL HISTORY: Left eye cataract surgery one month ago PAST SOCIAL HISTORY: Patient lives with . Patient denies alcohol tobacco and recreational drug use FAMILY HISTORY: Noncontributory Coded Allergies: No Known Allergies (Unverified Allergy, Unknown, 03/27/22) ASSESSMENT: Hyperosmolar Hyperglycemic Syndrome POA resolved s/p CABG and extubated now. patient is off insulin drip.resolved but glucose are mildly elevated Uncontrolled Diabetes POA hba1c 12.9% home regimen: novolin 70/30 insulin 70 units twice per day. NSTEMI POA cath shows CAD and s/p CABG Influenza bronchopneumonia with sepsis POA Acute Hypoxemic Respiratory Failure POA Acute on chronic renal failure with concern for ATN POA ON HD Metabolic acidosis POA Lactic acidosis POA CKD stage 4 POA Protein Calorie malnutrition POA PLAN: start lantus 20 units daily start regular insulin 5 units tid before meals start medium dose ssi monitor glucose qx6 hourly Vitals/Labs Vital Signs Date Time Temp Pulse Resp B/P (MAP) Pulse Ox O2 Delivery O2 Flow Rate FiO2 10/06/24 04:30 88 10 97 121/54 (76) 10/06/24 04:00 97.9 Nasal Cannula 2.0 10/06/24 04:00 28 Laboratory Tests 10/05/24 10:20 10/05/24 17:50 10/06/24 03:55 Medications Current Medications Ceftriaxone Sodium 1 gm ONCE ONCE IVPB; Start 09/21/24 at 18:00; Stop 09/21/24 at 18:13; Status DC Azithromycin 250 ml @ 250 mls/hr Q24H IVPB; Start 09/21/24 at 18:00; Stop 09/21/24 at 18:14; Status DC Promethazine HCl/ Codeine 10 ml ONCE ONCE PO; Start 09/21/24 at 18:00; Stop 09/21/24 at 18:01; Status DC Piperacillin Sod/ Tazobactam Sod 3.375 gm ONCE ONCE IVPB Last administered on 09/21/24at 18:35; Start 09/21/24 at 18:30; Stop 09/21/24 at 18:31; Status DC Insulin Human Regular 10 unit ONCE ONCE IV Last administered on 09/21/24at 18:36; Start 09/21/24 at 18:30; Stop 09/21/24 at 18:31; Status DC Metoprolol Tartrate 5 mg ONCE ONCE IV Last administered on 09/21/24at 18:32; Start 09/21/24 at 18:30; Stop 09/21/24 at 18:31; Status DC Heparin Sodium (Porcine) *calculation based on ACTUAL B... AD PRN IV; Start 09/21/24 at 19:30; Stop 09/26/24 at 07:14; Status DC Heparin Sodium/ Dextrose 250 ml @ 0 mls/hr Q6H IV Last administered on 09/25/24at 04:13; Start 09/21/24 at 19:30; Stop 09/26/24 at 18:36; Status DC Sodium Chloride 1,000 ml @ 0 mls/hr ONCE ONCE IV Last administered on 09/21/24at 18:37; Start 09/21/24 at 18:30; Stop 09/21/24 at 18:31; Status DC Ondansetron HCl 4 mg STK-MED ONCE .ROUTE Last administered on 09/21/24at 18:31; Start 09/21/24 at 18:29; Stop 09/21/24 at 18:29; Status DC Oseltamivir Phosphate 75 mg ONCE ONCE PO Last administered on 09/21/24at 18:45; Start 09/21/24 at 19:00; Stop 09/21/24 at 19:01; Status DC Acetaminophen 650 mg Q6H PRN PO; Start 09/21/24 at 19:30; Stop 10/03/24 at 12:53; Status DC Acetaminophen 650 mg Q4H PRN PO Last administered on 09/30/24at 01:32; Start 09/21/24 at 19:30; Stop 10/03/24 at 12:53; Status DC Guaifenesin/ Dextromethorphan 10 ml Q4H PRN PO Last administered on 09/23/24at 22:06; Start 09/21/24 at 19:30; Stop 10/03/24 at 12:53; Status DC Albuterol 1 udvial [id number] IH Last administered on 09/25/24at 06:43; Start 09/21/24 at 22:00; Stop 09/25/24 at 09:59; Status DC Famotidine 10 mg Q48H PO; Start 09/21/24 at 19:30; Stop 09/21/24 at 20:00; Status DC Nitroglycerin 0.5 inch Q8H TD Last administered on 09/25/24at 12:44; Start 09/21/24 at 19:30; Stop 09/27/24 at 10:34; Status DC Piperacillin Sod/ Tazobactam Sod 50 ml @ 12.5 mls/hr Q12H IV Last administered on 09/22/24at 20:43; Start 09/21/24 at 21:00; Stop 09/23/24 at 08:06; Status DC Sodium Chloride 1,000 ml @ 100 mls/hr Q10H IV Last administered on 09/23/24at 12:53; Start 09/21/24 at 19:30; Stop 09/27/24 at 10:34; Status DC Oseltamivir Phosphate 75 mg DAILY PO Last administered on 09/23/24at 08:38; Start 09/22/24 at 09:00; Stop 09/23/24 at 13:29; Status DC Doxycycline Hyclate 100 mg BID PO Last administered on 09/30/24at 20:53; Start 09/21/24 at 21:00; Stop 09/30/24 at 23:59; Status DC Aspirin 81 mg DAILY PO Last administered on 10/05/24at 09:20; Start 09/22/24 at 09:00; Stop 10/22/24 at 08:59 Insulin Human Regular 100 unit/ Sodium Chloride 101 ml @ 0 mls/hr PROTOCOL IV Last administered on 09/21/24at 21:01; Start 09/21/24 at 20:00; Stop 09/23/24 at 21:20; Status DC Famotidine 10 mg DAILY IV Last administered on 09/27/24at 09:09; Start 09/22/24 at 09:00; Stop 09/27/24 at 10:35; Status DC Alprazolam 0.5 mg ONCE ONCE PO Last administered on 09/21/24at 21:44; Start 09/21/24 at 22:00; Stop 09/21/24 at 22:01; Status DC Magnesium Sulfate 50 ml @ 0 mls/hr PROTOCOL PRN IV Last administered on 09/21/24at 23:52; Start 09/22/24 at 00:00; Stop 09/22/24 at 00:04; Status DC Magnesium Sulfate 50 ml @ As Directed STK-MED ONCE IV; Start 09/21/24 at 23:49; Stop 09/21/24 at 23:49; Status DC Sodium Chloride 1,000 ml @ 200 mls/hr PROTOCOL IV; Start 09/22/24 at 00:00; Stop 09/23/24 at 21:23; Status DC Potassium Chloride/Dextrose/ Sod Cl 1,000 ml @ 0 mls/hr AD IV; Start 09/22/24 at 00:00; Stop 09/23/24 at 21:23; Status DC Potassium Chloride 20 meq/ Sodium Chloride 1,010 ml @ 0 mls/hr PROTOCOL IV; Start 09/22/24 at 00:00; Stop 09/23/24 at 21:23; Status DC Magnesium Sulfate 50 ml @ 0 mls/hr PROTOCOL IV; Start 09/22/24 at 00:00; Stop 09/23/24 at 21:23; Status DC Insulin Human Regular 100 unit/ Sodium Chloride 101 ml @ 0 mls/hr PROTOCOL IV; Start 09/22/24 at 00:00; Stop 09/22/24 at 00:03; Status DC Mannitol 49 gm AD IV; Start 09/22/24 at 00:00; Stop 09/22/24 at 00:28; Status DC Dextrose/Sodium Chloride 1,000 ml @ 0 mls/hr AD IV Last administered on 09/22/24at 09:49; Start 09/22/24 at 00:00; Stop 09/23/24 at 21:23; Status DC Methylprednisolone Sodium Succinate 125 mg ONCE ONCE IVP Last administered on 09/22/24at 01:35; Start 09/22/24 at 00:30; Stop 09/22/24 at 00:31; Status DC Methylprednisolone Sodium Succinate 40 mg BID IVP Last administered on 09/26/24at 20:37; Start 09/22/24 at 09:00; Stop 09/27/24 at 10:35; Status DC Mannitol 245 ml @ 0 mls/hr AD IV; Start 09/22/24 at 00:30; Stop 09/22/24 at 20:17; Status DC Atorvastatin Calcium 40 mg HS PO; Start 09/22/24 at 21:00; Stop 09/22/24 at 20:17; Status DC Mannitol 500 ml @ 0 mls/hr AD IV; Start 09/22/24 at 00:30; Stop 09/22/24 at 14:33; Status DC Sodium Chloride 4 ml STK-MED ONCE IH; Start 09/22/24 at 05:59; Stop 09/22/24 at 06:00; Status DC Vitamin B Complex/ Vit C/Folic Acid 1 cap DAILY PO Last administered on 10/05/24at 09:20; Start 09/23/24 at 09:00; Stop 10/23/24 at 08:59 Furosemide 80 mg Q12H IV Last administered on 09/26/24at 13:20; Start 09/22/24 at 21:00; Stop 09/26/24 at 15:22; Status DC Nifedipine 60 mg DAILY PO Last administered on 09/25/24at 08:37; Start 09/23/24 at 09:00; Stop 09/28/24 at 12:01; Status DC Ferrous Sulfate 325 mg DAILY PO Last administered on 10/05/24at 09:20; Start 09/23/24 at 09:00; Stop 10/23/24 at 08:59 Miscellaneous Medication 1 tab DAILY PO; Start 09/23/24 at 09:00; Stop 09/22/24 at 15:56; Status DC Chlordiazepoxide HCl 25 mg Q2H PRN PO Last administered on 09/28/24at 23:59; Start 09/22/24 at 20:30; Stop 09/29/24 at 20:29; Status DC Chlordiazepoxide HCl 50 mg Q1H PRN PO; Start 09/22/24 at 20:30; Stop 09/29/24 at 20:29; Status DC Thiamine HCl 100 mg/Folic Acid 1 mg/Multivitamins/ Minerals 10 ml/ Sodium Chloride 1,011.2 ml @ 100 mls/ hr Q24H IV Last administered on 09/22/24at 20:43; Start 09/22/24 at 20:30; Stop 09/25/24 at 06:37; Status DC Multivitamins Therapeutic 1 tab DAILY PO Last administered on 10/05/24at 09:20; Start 09/23/24 at 09:00; Stop 10/23/24 at 08:59 Pharmacy Profile Note 1 each PROTOCOL PRN MISC; Start 09/22/24 at 20:30; Stop 09/29/24 at 20:29; Status DC Fish Oil 2,000 mg BID PO Last administered on 10/02/24at 20:38; Start 09/22/24 at 21:00; Stop 10/03/24 at 12:53; Status DC Metoprolol Tartrate 12.5 mg BID PO Last administered on 09/24/24at 12:07; Start 09/22/24 at 21:00; Stop 09/24/24 at 16:38; Status DC Insulin Glargine 10 units BID@0730,2100 SQ Last administered on 09/25/24at 20:44; Start 09/22/24 at 21:00; Stop 09/26/24 at 11:15; Status DC Vancomycin HCl 1,000 mg DAILY08 IV; Start 09/23/24 at 08:00; Stop 09/22/24 at 20:26; Status DC Vancomycin HCl 250 ml @ 125 mls/hr Q72H IV Last administered on 09/22/24at 20:48; Start 09/22/24 at 20:30; Stop 09/23/24 at 08:04; Status DC Atorvastatin Calcium 40 mg STK-MED ONCE .ROUTE; Start 09/22/24 at 20:41; Stop 09/22/24 at 20:41; Status DC Sodium Bicarbonate 100 meq ONCE ONCE IV Last administered on 09/23/24at 08:40; Start 09/23/24 at 08:00; Stop 09/23/24 at 08:08; Status DC Cefepime HCl 1 gm Q24H IVPB Last administered on 09/25/24at 08:36; Start 09/23/24 at 08:30; Stop 09/26/24 at 11:14; Status DC Pharmacy Profile Note 1 each ONCE MISC; Start 09/23/24 at 13:00; Stop 09/23/24 at 13:25; Status DC Oseltamivir Phosphate 75 mg QTUTHSA[DIALYSIS] PO; Start 09/23/24 at 16:00; Stop 09/23/24 at 17:04; Status DC Oseltamivir Phosphate 75 mg QTUTHSA[DIALYSIS] PO Last administered on 09/25/24at 16:09; Start 09/23/24 at 22:00; Stop 09/26/24 at 16:32; Status DC Atorvastatin Calcium 20 mg HS PO Last administered on 09/26/24at 20:36; Start 09/23/24 at 21:00; Stop 09/27/24 at 10:38; Status DC Clopidogrel Bisulfate 300 mg ONCE ONCE PO Last administered on 09/23/24at 19:04; Start 09/23/24 at 17:30; Stop 09/23/24 at 17:31; Status DC Clopidogrel Bisulfate 75 mg DAILY PO Last administered on 09/25/24at 08:38; Start 09/24/24 at 09:00; Stop 09/26/24 at 07:14; Status DC Lidocaine HCl 20 ml STK-MED ONCE .ROUTE; Start 09/23/24 at 17:17; Stop 09/23/24 at 17:17; Status DC Heparin Sodium/ Sodium Chloride 500 ml @ As Directed STK-MED ONCE IV; Start 09/23/24 at 17:17; Stop 09/23/24 at 17:18; Status DC Heparin Sodium (Porcine) 1,000 unit STK-MED ONCE .ROUTE; Start 09/23/24 at 17:24; Stop 09/23/24 at 17:24; Status DC Albumin Human 100 ml ONCE ONCE IV Last administered on 09/23/24at 19:53; Start 09/23/24 at 19:30; Stop 09/23/24 at 19:31; Status DC Sodium Chloride 1,000 ml @ 0 mls/hr ONCE IV Last administered on 09/26/24at 12:15; Start 09/23/24 at 19:30; Stop 09/27/24 at 13:51; Status DC Pharmacy Profile Note 1 each ONCE MISC; Start 09/23/24 at 21:30; Stop 09/24/24 at 07:08; Status DC Sodium Bicarbonate 650 mg TID PO Last administered on 09/26/24at 20:36; Start 09/24/24 at 09:00; Stop 09/27/24 at 10:34; Status DC Insulin Human Regular INSULIN SLIDING SCAL... ACHS SQ Last administered on 10/03/24at 05:48; Start 09/24/24 at 07:30; Stop 10/03/24 at 12:53; Status DC Vancomycin HCl 750 mg Q24H IVPB Last administered on 09/24/24at 22:43; Start 09/23/24 at 23:30; Stop 09/25/24 at 06:26; Status DC Fluconazole/ Sodium Chloride 800 mg ONCE ONCE IV; Start 09/24/24 at 14:00; Stop 09/24/24 at 13:50; Status DC Epoetin Moses-epbx 10,000 unit ONCE ONCE SQ Last administered on 09/24/24at 18:43; Start 09/24/24 at 16:00; Stop 09/24/24 at 16:01; Status DC Metoprolol Tartrate 5 mg STK-MED ONCE IV; Start 09/24/24 at 15:57; Stop 09/24/24 at 15:57; Status DC Metoprolol Succinate 50 mg BID PO Last administered on 09/24/24at 19:45; Start 09/24/24 at 21:00; Stop 09/26/24 at 07:14; Status DC Metoprolol Succinate 50 mg STK-MED ONCE PO; Start 09/24/24 at 19:28; Stop 09/24/24 at 19:28; Status DC Gabapentin 100 mg TID PO Last administered on 09/30/24at 14:07; Start 09/24/24 at 21:00; Stop 09/30/24 at 17:37; Status DC Vancomycin HCl 750 mg [id number] IVPB; Start 09/26/24 at 16:00; Stop 10/03/24 at 23:29; Status DC Metoprolol Succinate 100 mg ONCE ONCE PO Last administered on 09/25/24at 08:37; Start 09/25/24 at 08:30; Stop 09/25/24 at 08:31; Status DC Albuterol 1 udvial [id number] IH Last administered on 09/26/24at 11:17; Start 09/25/24 at 10:00; Stop 09/26/24 at 15:22; Status DC Metoprolol Tartrate 50 mg ONCE ONCE PO Last administered on 09/25/24at 16:09; Start 09/25/24 at 15:00; Stop 09/25/24 at 15:01; Status DC Epoetin Moses-epbx 10,000 unit ONCE ONCE SQ Last administered on 09/25/24at 17:52; Start 09/25/24 at 15:00; Stop 09/25/24 at 15:01; Status DC Fluconazole/ Sodium Chloride 200 mg Q24H IV Last administered on 09/26/24at 14:38; Start 09/25/24 at 16:00; Stop 09/27/24 at 10:36; Status DC Ondansetron HCl 4 mg STK-MED ONCE .ROUTE; Start 09/25/24 at 22:35; Stop 09/25/24 at 22:41; Status DC Sodium Chloride 250 ml @ 0 mls/hr Q0M IV; Start 09/25/24 at 23:00; Stop 09/27/24 at 10:34; Status DC Albumin Human 100 ml @ 0 mls/hr AD STAT IV Last administered on 09/25/24at 23:17; Start 09/25/24 at 23:09; Stop 09/25/24 at 23:12; Status DC Norepinephrine 250 ml @ 0 mls/hr AD PRN IV Last administered on 09/26/24at 01:40; Start 09/26/24 at 01:30; Stop 09/27/24 at 10:34; Status DC Ondansetron HCl 4 mg Q6H PRN IVP Last administered on 09/27/24at 08:51; Start 09/26/24 at 01:30; Stop 10/03/24 at 12:53; Status DC Morphine Sulfate 2 mg Q4H PRN IVP; Start 09/26/24 at 01:30; Stop 10/01/24 at 04:29; Status DC Ondansetron HCl 4 mg STK-MED ONCE .ROUTE; Start 09/26/24 at 01:21; Stop 09/26/24 at 01:21; Status DC Norepinephrine 250 ml @ As Directed STK-MED ONCE IV; Start 09/26/24 at 01:22; Stop 09/26/24 at 01:22; Status DC Metoprolol Succinate 25 mg BID PO Last administered on 10/03/24at 08:55; Start 09/26/24 at 09:00; Stop 10/03/24 at 12:53; Status DC Piperacillin Sod/ Tazobactam Sod 3.375 gm Q12H IV Last administered on 10/05/24at 23:22; Start 09/26/24 at 11:30; Stop 10/06/24 at 11:29 Insulin Glargine 15 units BID@0730,2100 SQ Last administered on 09/30/24at 07:03; Start 09/26/24 at 21:00; Stop 09/30/24 at 17:13; Status DC Albuterol 1 udvial [id number] PRN IH; Start 09/26/24 at 15:30; Stop 10/21/24 at 21:59 Oseltamivir Phosphate 75 mg Q24H PO Last administered on 09/27/24at 18:04; Start 09/26/24 at 17:00; Stop 09/27/24 at 17:01; Status DC Magnesium Sulfate 50 ml @ 0 mls/hr PROTOCOL IV; Start 09/26/24 at 18:30; Stop 09/27/24 at 10:25; Status DC Insulin Human Regular 100 unit/ Sodium Chloride 101 ml @ 0 mls/hr PROTOCOL IV Last administered on 09/26/24at 18:36; Start 09/26/24 at 18:30; Stop 09/27/24 at 10:25; Status DC Pantoprazole Sodium 40 mg BID IVP Last administered on 10/03/24at 08:55; Start 09/27/24 at 21:00; Stop 10/03/24 at 12:53; Status DC Pantoprazole Sodium 40 mg ONCE ONCE IVP Last administered on 09/27/24at 12:08; Start 09/27/24 at 12:00; Stop 09/27/24 at 12:01; Status DC Sodium Chloride 1,000 ml @ 0 mls/hr ONCE IV; Start 09/27/24 at 14:30; Stop 09/27/24 at 13:51; Status DC Sodium Chloride 1,000 ml @ 0 mls/hr ONCE IV Last administered on 10/05/24at 15:18; Start 09/27/24 at 15:00; Stop 10/27/24 at 14:59 Heparin Sodium (Porcine) 10,000 unit AD IRRIG Last administered on 10/01/24at 17:18; Start 09/27/24 at 14:00; Stop 10/27/24 at 13:59 Prednisone 20 mg DAILY PO Last administered on 09/30/24at 08:50; Start 09/28/24 at 09:00; Stop 10/01/24 at 08:59; Status DC Iohexol 35,000 mg STK-MED ONCE IV; Start 09/29/24 at 11:19; Stop 09/29/24 at 11:20; Status DC Iohexol 50 ml STK-MED ONCE IV; Start 09/29/24 at 12:17; Stop 09/29/24 at 12:17; Status DC Metoprolol Tartrate 5 mg STK-MED ONCE IV; Start 09/29/24 at 12:23; Stop 09/29/24 at 12:24; Status DC Epoetin Moses-epbx 10,000 unit ONCE ONCE SQ Last administered on 09/29/24at 16:48; Start 09/29/24 at 16:30; Stop 09/29/24 at 16:31; Status DC Albumin Human 100 ml ONCE ONCE IV; Start 09/29/24 at 15:15; Stop 09/29/24 at 16:54; Status DC Epoetin Moses-epbx 10,000 unit [id number] SQ Last administered on 10/01/24at 15:34; Start 10/01/24 at 09:00; Stop 10/31/24 at 08:59 Clopidogrel Bisulfate 75 mg DAILY PO Last administered on 09/30/24at 08:49; Start 09/30/24 at 09:00; Stop 10/01/24 at 08:26; Status DC Atorvastatin Calcium 40 mg HS PO Last administered on 10/05/24at 21:04; Start 09/30/24 at 21:00; Stop 10/30/24 at 20:59 Sodium Bicarbonate 100 meq ONCE ONCE IV Last administered on 09/30/24at 10:28; Start 09/30/24 at 09:00; Stop 09/30/24 at 09:01; Status DC Calcium Carbonate 1,000 mg TID PO Last administered on 10/05/24at 21:04; Start 09/30/24 at 14:00; Stop 10/30/24 at 13:59 Ergocalciferol 50,000 unit ONCE ONCE PO Last administered on 09/30/24at 14:07; Start 09/30/24 at 14:00; Stop 09/30/24 at 14:01; Status DC Insulin Glargine 20 units AM SQ; Start 10/01/24 at 09:00; Stop 09/30/24 at 17:26; Status DC Insulin Glargine 10 units HS SQ; Start 09/30/24 at 21:00; Stop 09/30/24 at 17:26; Status DC Insulin Glargine 30 units HS SQ Last administered on 10/01/24at 19:54; Start 09/30/24 at 21:00; Stop 10/02/24 at 07:19; Status DC Insulin Human Lispro 7 unit TIDAC SQ Last administered on 10/01/24at 16:22; Start 10/01/24 at 07:30; Stop 10/01/24 at 17:01; Status DC Dextrose 50 ml AD PRN IV; Start 09/30/24 at 17:30; Stop 10/01/24 at 08:25; Status DC Glucagon 1 mg AD PRN IM; Start 09/30/24 at 17:30; Stop 10/01/24 at 08:25; Status DC Gabapentin 100 mg DAILY PO Last administered on 10/05/24at 09:20; Start 10/01/24 at 09:00; Stop 10/24/24 at 20:59 Melatonin 5 mg ONCE ONCE PO Last administered on 09/30/24at 23:05; Start 09/30/24 at 23:00; Stop 09/30/24 at 23:01; Status DC Lidocaine HCl 20 ml STK-MED ONCE .ROUTE; Start 10/01/24 at 07:12; Stop 10/01/24 at 07:13; Status DC Iohexol 35,000 mg STK-MED ONCE IV; Start 10/01/24 at 07:12; Stop 10/01/24 at 07:14; Status DC Heparin Sodium (Porcine) 10,000 unit STK-MED ONCE .ROUTE; Start 10/01/24 at 07:12; Stop 10/01/24 at 07:14; Status DC Heparin Sodium/ Sodium Chloride 1,000 ml @ As Directed STK-MED ONCE IV; Start 10/01/24 at 07:12; Stop 10/01/24 at 07:14; Status DC Nitroglycerin 50 mg STK-MED ONCE .ROUTE; Start 10/01/24 at 07:12; Stop 10/01/24 at 07:14; Status DC Fentanyl Citrate 100 mcg STK-MED ONCE .ROUTE; Start 10/01/24 at 07:40; Stop 10/01/24 at 07:40; Status DC Midazolam HCl 2 mg STK-MED ONCE .ROUTE; Start 10/01/24 at 07:40; Stop 10/01/24 at 07:40; Status DC Verapamil HCl 5 mg STK-MED ONCE .ROUTE; Start 10/01/24 at 07:59; Stop 10/01/24 at 07:59; Status DC Dextrose 50 ml AD PRN IV Last administered on 10/05/24at 05:14; Start 10/01/24 at 08:30; Stop 10/31/24 at 08:29 Glucagon 1 mg AD PRN IM; Start 10/01/24 at 08:30; Stop 10/31/24 at 08:29 Hydralazine HCl 5 mg ONCE ONCE IV Last administered on 10/01/24at 18:26; Start 10/01/24 at 16:30; Stop 10/01/24 at 16:31; Status DC Hydralazine HCl 10 mg Q6H PRN IV; Start 10/01/24 at 16:30; Stop 10/03/24 at 12:53; Status DC Calcium Gluconate 1 gm/Sodium Chloride 100 ml @ 0 mls/hr PROTOCOL IV; Start 10/01/24 at 17:00; Stop 10/03/24 at 12:53; Status DC Insulin Human Lispro 10 unit TIDAC SQ; Start 10/01/24 at 17:00; Stop 10/01/24 at 19:41; Status DC Insulin Human Lispro 15 unit TIDAC SQ Last administered on 10/02/24at 07:01; Start 10/02/24 at 07:30; Stop 10/02/24 at 07:20; Status DC Insulin Glargine 50 units DAILY SQ Last administered on 10/02/24at 09:41; Start 10/02/24 at 07:30; Stop 10/02/24 at 16:53; Status DC Insulin Human Lispro 20 unit TIDAC SQ Last administered on 10/02/24at 11:48; Start 10/02/24 at 11:30; Stop 10/02/24 at 16:53; Status DC Cefazolin Sodium 2 gm ONCALL IVPB; Start 10/02/24 at 10:30; Stop 10/03/24 at 13:09; Status DC Insulin Glargine 50 units BID SQ Last administered on 10/03/24at 09:02; Start 10/02/24 at 21:00; Stop 10/03/24 at 12:53; Status DC Insulin Human Lispro 25 unit TIDAC SQ Last administered on 10/02/24at 17:17; Start 10/02/24 at 17:00; Stop 10/03/24 at 12:53; Status DC Cefazolin Sodium 1 gm STK-MED ONCE .ROUTE; Start 10/03/24 at 07:24; Stop 10/03/24 at 07:29; Status DC Heparin Sodium/ Sodium Chloride 500 ml @ As Directed STK-MED ONCE IV; Start 10/03/24 at 07:24; Stop 10/03/24 at 07:29; Status DC Papaverine HCl 60 mg STK-MED ONCE .ROUTE; Start 10/03/24 at 07:24; Stop 10/03/24 at 07:29; Status DC Epinephrine HCl 10 mg/Sodium Chloride 250 ml @ 0 mls/hr AD PRN IV Last administered on 10/04/24at 06:35; Start 10/03/24 at 10:00; Stop 11/02/24 at 09:59 Norepinephrine Bitartrate 250 ml @ 0 mls/hr AD PRN IV; Start 10/03/24 at 10:00; Stop 11/02/24 at 09:59 Aminocaproic Acid 33345 mg/Sodium Chloride 480 ml @ 0 mls/hr AD PRN IV; Start 10/03/24 at 10:00; Stop 11/02/24 at 09:59 Lidocaine HCl/ Dextrose 250 ml @ As Directed STK-MED ONCE IV; Start 10/03/24 at 11:16; Stop 10/03/24 at 11:17; Status DC Nitroglycerin/ Dextrose 1 ml @ As Directed STK-MED ONCE .ROUTE; Start 10/03/24 at 11:16; Stop 10/03/24 at 11:17; Status DC Dextrose 50 ml STK-MED ONCE IV; Start 10/03/24 at 11:44; Stop 10/03/24 at 11:44; Status DC Cefazolin Sodium 2 gm STK-MED ONCE .ROUTE; Start 10/03/24 at 12:52; Stop 10/03/24 at 12:52; Status DC Acetaminophen 1,000 mg Q6H6 IV Last administered on 10/04/24at 11:18; Start 10/03/24 at 18:00; Stop 10/04/24 at 17:59; Status DC Aspirin 81 mg ONCE ONCE NG Last administered on 10/03/24at 17:31; Start 10/03/24 at 17:00; Stop 10/03/24 at 17:02; Status DC Docusate Sodium 100 mg BID PO Last administered on 10/05/24at 21:04; Start 10/03/24 at 21:00; Stop 11/02/24 at 20:59 Lactulose 20 gm BID PRN PO; Start 10/03/24 at 13:00; Stop 11/02/24 at 12:59 Atorvastatin Calcium 40 mg HS PO; Start 10/03/24 at 21:00; Stop 10/03/24 at 12:58; Status DC Magnesium Hydroxide 30 ml DAILY PRN PO; Start 10/03/24 at 13:00; Stop 11/02/24 at 12:59 Dexmedetomidine/ Sodium Chloride 400 mcg PROTOCOL IV; Start 10/03/24 at 13:00; Stop 10/04/24 at 12:59; Status DC Acetaminophen 650 mg Q6H PRN PO Last administered on 10/04/24at 08:59; Start 10/03/24 at 13:00; Stop 11/02/24 at 12:59 Protamine Sulfate 250 mg STK-MED ONCE IV; Start 10/03/24 at 12:54; Stop 10/03/24 at 12:55; Status DC Lidocaine HCl 100 mg STK-MED ONCE .ROUTE; Start 10/03/24 at 12:55; Stop 10/03/24 at 12:55; Status DC Heparin Sodium (Porcine) 10,000 unit STK-MED ONCE .ROUTE; Start 10/03/24 at 12:55; Stop 10/03/24 at 12:55; Status DC Epinephrine HCl 1 mg STK-MED ONCE .ROUTE; Start 10/03/24 at 12:55; Stop 10/03/24 at 12:55; Status DC Sodium Bicarbonate 200 ml @ As Directed STK-MED ONCE .ROUTE; Start 10/03/24 at 12:55; Stop 10/03/24 at 12:55; Status DC Norepinephrine Bitartrate 4 mg STK-MED ONCE IV; Start 10/03/24 at 12:55; Stop 10/03/24 at 12:55; Status DC Fentanyl Citrate 1,000 mcg STK-MED ONCE IJ; Start 10/03/24 at 12:55; Stop 10/03/24 at 12:55; Status DC Propofol 200 mg STK-MED ONCE IV; Start 10/03/24 at 12:55; Stop 10/03/24 at 12:56; Status DC Midazolam HCl 2 mg STK-MED ONCE .ROUTE; Start 10/03/24 at 12:55; Stop 10/03/24 at 12:56; Status DC Rocuronium [place] 50 mg STK-MED ONCE .ROUTE; Start 10/03/24 at 12:56; Stop 10/03/24 at 12:56; Status DC Etomidate 20 mg STK-MED ONCE .ROUTE; Start 10/03/24 at 12:59; Stop 10/03/24 at 13:00; Status DC Sodium Chloride 1,000 ml @ 10 mls/hr ONCE IV; Start 10/03/24 at 13:00; Stop 10/04/24 at 12:59; Status DC Sodium Chloride 10 ml Q8H PRN IVP; Start 10/03/24 at 13:00; Stop 11/02/24 at 12:59 Morphine Sulfate 0.5 mg Q2H PRN IV Last administered on 10/03/24at 20:56; Start 10/03/24 at 13:00; Stop 10/04/24 at 10:49; Status DC Morphine Sulfate 1 mg Q2H PRN IV; Start 10/03/24 at 13:00; Stop 10/04/24 at 10:49; Status DC Acetaminophen 650 mg Q4H PRN RC; Start 10/03/24 at 13:00; Stop 11/02/24 at 12:59 Ondansetron HCl 4 mg Q6H PRN IV Last administered on 10/04/24at 16:35; Start 10/03/24 at 13:00; Stop 11/02/24 at 12:59 Sodium Chloride 500 ml @ 0 mls/hr AD IV; Start 10/03/24 at 13:00; Stop 11/02/24 at 12:59 Nitroglycerin/ Dextrose 0 ml @ 0 mls/hr AD IV; Start 10/03/24 at 13:00; Stop 10/06/24 at 12:59 Propofol 100 ml @ 0 mls/hr AD PRN IV; Start 10/03/24 at 13:00; Stop 10/07/24 at 12:59 Norepinephrine Bitartrate 8 mg/ Dextrose 250 ml @ 0 mls/hr AD PRN IV; Start 10/03/24 at 13:00; Stop 10/03/24 at 13:03; Status DC Epinephrine HCl 10 mg/Sodium Chloride 250 ml @ 0 mls/hr AD PRN IV; Start 10/03/24 at 13:00; Stop 10/03/24 at 13:03; Status DC Aminocaproic Acid 70977 mg/Sodium Chloride 310 ml @ 25 mls/hr AD IV; Start 10/03/24 at 13:00; Stop 10/03/24 at 13:03; Status DC Calcium Gluconate 1 gm/Sodium Chloride 60 ml @ 200 mls/hr AD PRN IV Last administered on 10/05/24at 11:32; Start 10/03/24 at 13:00; Stop 11/02/24 at 12:59 Magnesium Sulfate 50 ml @ 12.5 mls/hr AD PRN IV Last administered on 10/03/24at 17:21; Start 10/03/24 at 13:00; Stop 11/02/24 at 12:59 Potassium Chloride 100 ml @ 100 mls/hr AD PRN IV; Start 10/03/24 at 13:00; Stop 11/02/24 at 12:59 Potassium Phosphate 250 ml @ 42 mls/hr AD PRN IV; Start 10/03/24 at 13:00; Stop 11/02/24 at 12:59 Albumin Human 250 ml @ 0 mls/hr AD PRN IV Last administered on 10/03/24at 17:23; Start 10/03/24 at 13:00; Stop 10/03/24 at 17:24; Status DC Acetaminophen 650 mg Q4H PRN PO; Start 10/03/24 at 13:00; Stop 11/02/24 at 12:59 Insulin Human Regular 100 unit/ Sodium Chloride 100 ml @ 0 mls/hr AD IV Last administered on 10/03/24at 17:38; Start 10/03/24 at 13:00; Stop 10/05/24 at 12:59; Status DC Cefazolin Sodium 2 gm Q8H IVPB Last administered on 10/04/24at 09:46; Start 10/03/24 at 18:00; Stop 10/04/24 at 10:01; Status DC Tramadol HCl 25 mg Q6H PRN PO; Start 10/03/24 at 13:00; Stop 10/08/24 at 12:59 Tramadol HCl 50 mg Q6H PRN PO Last administered on 10/06/24at 01:17; Start 10/03/24 at 13:00; Stop 10/08/24 at 12:59 Famotidine 20 mg Q48H IV Last administered on 10/05/24at 21:04; Start 10/03/24 at 21:00; Stop 11/02/24 at 20:59 Sodium Bicarbonate 50 meq AD PRN IV Last administered on 10/03/24at 20:57; Start 10/03/24 at 13:00; Stop 10/06/24 at 12:59 Dextrose 50 ml AD PRN IV; Start 10/03/24 at 13:00; Stop 10/03/24 at 13:04; Status DC Glucagon 1 mg AD PRN IM; Start 10/03/24 at 13:00; Stop 10/03/24 at 13:04; Status DC Amiodarone HCl 150 mg STK-MED ONCE .ROUTE; Start 10/03/24 at 13:45; Stop 10/03/24 at 13:46; Status DC Potassium Chloride 300 ml @ As Directed STK-MED ONCE IV; Start 10/03/24 at 14:24; Stop 10/03/24 at 14:25; Status DC Heparin Sodium (Porcine) 10,000 unit STK-MED ONCE .ROUTE; Start 10/03/24 at 14:28; Stop 10/03/24 at 14:29; Status DC Lidocaine HCl 100 mg STK-MED ONCE .ROUTE; Start 10/03/24 at 14:30; Stop 10/03/24 at 14:30; Status DC Vasopressin 20 units STK-MED ONCE .ROUTE; Start 10/03/24 at 14:39; Stop 10/03/24 at 14:39; Status DC Albumin Human 500 ml @ As Directed STK-MED ONCE IV; Start 10/03/24 at 15:20; Stop 10/03/24 at 15:20; Status DC Albumin Human 250 ml @ As Directed STK-MED ONCE IV; Start 10/03/24 at 15:58; Stop 10/03/24 at 15:58; Status DC Cefazolin Sodium 3 gm STK-MED ONCE IVPB Last administered on 10/03/24at 13:15; Start 10/03/24 at 13:15; Stop 10/03/24 at 17:02; Status DC Papaverine HCl 60 mg STK-MED ONCE IRRIG Last administered on 10/03/24at 13:45; Start 10/03/24 at 13:45; Stop 10/03/24 at 17:02; Status DC Cefazolin Sodium 1 gm STK-MED ONCE IRRIG Last administered on 10/03/24at 13:45; Start 10/03/24 at 13:45; Stop 10/03/24 at 17:02; Status DC Vasopressin 20 units/Sodium Chloride 100 ml @ 0 mls/hr PROTOCOL IV Last administered on 10/04/24at 06:34; Start 10/03/24 at 19:30; Stop 11/02/24 at 19:29 Albumin Human 100 ml ONCE ONCE IV Last administered on 10/04/24at 07:24; Start 10/04/24 at 06:30; Stop 10/04/24 at 06:31; Status DC Epoetin Moses-epbx 10,000 unit ONCE ONCE SQ Last administered on 10/04/24at 13:14; Start 10/04/24 at 13:00; Stop 10/04/24 at 13:05; Status DC Albumin Human 100 ml @ As Directed STK-MED ONCE IV Last administered on 10/05/24at 16:18; Start 10/05/24 at 15:46; Stop 10/05/24 at 15:46; Status DC Albumin Human 100 ml ONCE IV Last administered on 10/05/24at 16:18; Start 10/05/24 at 16:00; Stop 10/06/24 at 15:59 Insulin Human Regular INSULIN SLIDING SCAL... ACHS SQ; Start 10/05/24 at 16:30; Stop 11/04/24 at 16:29 Guaifenesin/ Dextromethorphan 15 ml Q4H PRN PO Last administered on 10/06/24at 01:35; Start 10/06/24 at 01:30; Stop 11/05/24 at 01:29 HENNA PATEL MD Oct 06, 2024 06:11
--- NOTE | 2024-10-06 06:41 | PN ---
PROBLEM LIST: * Premature coronary artery disease with nontransmural myocardial infarction and unstable angina on presentation. * Severe 3-vessel coronary artery disease by cardiac catheterization on this admission. * Status post coronary artery bypass graft surgery x 3 with APARICIO to the LAD, saphenous vein graft to the posterior left ventricular branch of the circumflex, and saphenous vein graft to the PDA on 10/03/2024 with findings of small targets intraoperatively. * Postoperative thrombocytopenia. * Ischemic cardiomyopathy with EF of 35-40% by echocardiography on 09/23/2024. * Acute on chronic heart failure with reduced ejection fraction. * End-stage renal disease, status post initiation of hemodialysis on this admission. * Influenza pneumonia with sepsis. * Acute hypoxemic respiratory failure, improving. * Diabetes mellitus, type 2, with circulatory and renal manifestations. * Hyperosmolar hyperglycemic syndrome. * Hypertension. * Hyperlipoproteinemia. * Protein calorie malnutrition. This gentleman is stable currently. He has been doing well. He is sitting up in a chair with no active cardiac complaints. The patient has been afebrile. He has stable vital signs. His heart rate is 90 per minute with a blood pressure in the 120-130 systolic range. He is saturating at 96% on 2 liters of nasal cannula with a respiratory rate of 16. The patient has an indwelling thoracostomy tube with minimal drainage. This gentleman has been maintained on insulin, Robitussin, famotidine, Colace, tramadol, gabapentin, Epogen, atorvastatin, albuterol, Zosyn, baby aspirin, vitamins, and p.r.n. medications. Laboratory studies on this gentleman reveal a white count of 6.1 with an H and H of 7.3 and 22.8 respectively, the current platelet count is 39,000. The patient is maintained on baby aspirin, which may require to be held. We will consider hematology consultation. The patient is not on any heparin. The chemistries revealed a sodium of 140, potassium 4.7, chloride is 100, CO2 is 30, BUN is 45 with a creatinine of 7 with a GFR of 9. The patient's random glucose is 229. His calcium is 7.7, measured with a low albumin of 2.5 due to protein malnutrition. At this point, I think it is prudent to obtain an evaluation by hematology because of the patient's significant and persistent thrombocytopenia. Dr. Beckwith had mentioned initiation of dual antiplatelet therapy; however, at this point with the low platelet count, I am reluctant to do that now. This will be a good regimen once the patient's platelets have stabilized. I have checked the patient's drips, he is not on any heparin. He does not have any flush lines with heparin. TID: [id number] RECEIPT: [id number]
--- NOTE | 2024-10-06 06:59 | EKG ---
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
--- NOTE | 2024-10-06 08:40 | HMCIMG ---
CHEST 1VW HISTORY: Post CABG COMPARISON: 10/05/2024 FINDINGS: A frontal projection of the chest was obtained. Mild bilateral pulmonary infiltrates are seen may be related to mild pulmonary vascular congestion with possible superimposed pneumonitis. Poststernotomy changes are seen. The heart is enlarged. Degenerative changes of the thoracolumbar spine are present. All the lines and tubes are again seen in place. No evidence of aortic calcification is seen. IMPRESSION: 1. Mild bilateral pulmonary infiltrates are seen may be related to mild pulmonary vascular congestion with possible superimposed pneumonitis. Mild interval worsening is seen.
--- NOTE | 2024-10-06 08:43 | PN ---
[facility] PROGRESS NOTE Date Patient Seen: Oct 06, 2024 Time of Visit: 08:34 Supervising Physician: [Dr. Price] Primary Care Physician: Gama Acosta Outpatient Specialists: [ ] Inpatient Consults: Cardiology, nephrology and critical care team PROBLEM LIST: Septic shock, not POA, resolved off pressor Acute Hypoxemic Respiratory Failure, POA, on 2LNC Acute on chronic CHF with reduced EF of 35 40% Acute thrombocytopenia, not POA, r/o HIT pending oncology eval Nstemi, POA, s/p CABG 10/03/[address] Page Community acquired influenza A viral pneumoniae w/ superimposed Bilateral bacterial Pneumonia, POA, treated Sepsis Due To Bilateral Pneumonia And Influenza A Infection, POA, improved Severe transaminitis 2/2 shocked liver not POA ESRD with new onset hemodialysis this admission s/p Rt permacath Recurrent Dka w/ reopening of AGAP and ketones, resolved Acute Metabolic Acidosis 2/2 DkA and SAURABH , POA, improved Hyperkalemia In The Context Of Chronic Kidney Injury, Poa Morbid Obesity BMI 40.5 INTERVAL HISTORY: 09/22/2024: At the time my evaluation, the patient was in the emergency department awaiting bed assignment. The staff nurse reports no acute events overnight. The patient was on a Oxymizer with optimal SpO2. He was normotensive without the need for pressor therapy. There was no complaint of chest pain. There was no abdominal pain, nausea vomiting or diarrhea. The patient continued on a insulin drip per the DKA protocol. He was started on antibiotic and antiviral therapy for management of his condition. Review of labs today showed no major concern on CBC. Chemistry panel did show a sodium of 135, chloride of 100 and a CO2 of 20 with a anion gap of 15. Blood glucose remains elevated in the 300s. No new complaint. 09/23- saw patient and ED 13 awake alert and oriented x3. 2D echo at bedside being performed. Patient has been afebrile heart rate of 110, blood pressure 116/63 with respiratory rate of 20 saturating 97% with 7 L via nasal cannula oximizer. Urine output 1.4 L in the last 24 hours. On laboratory WBCs are 11.4 H&H trending down 7.6/23.1 with a platelet count that is 178 K. on chemistry sodium 136 potassium of 3.7 chloride 100 carbon dioxide of 19 BUN 106. Creatinine of 8.6 and GFR of 7. Per Dr Armenta pt scheduled for a Mitesh hemodialysis catheter per IR today. Pt continues with Tamiflu, Doxy, Cefepime and MRSA coverage will be added w/ vanco due to suspected MRSA superimposed pneumonia on Influenza pneumonia. On CT chest, abdomen and pelvis shows Acute appearing infiltrates in both lung bases consistent with pneumoniae. No acute finding in the abdomen or pelvis. Del Cid catheter in good position in the urinary bladder. We will continue to follow Neprhology recommendations. 09/24 patient was seen and examined at bedside with primary nurse present. Patient to receive1 unit PRBCs hemoglobin this a.m. 6.8. Continue to monitor closely. Patient to continue on IV antibiotics. Patient's troponin levels trending down. We will continue to follow recommendations of Cardiology. Patient remains hypoxic requiring supplemental oxygen via nasal cannula at L. Patient states does not use home oxygen. Patient is to continue on heparin drip. Patient to continue on IV steroids. Patient's echocardiogram revealed EF of 35-40%. Patient's blood cultures have been negative x2 days. Patient remains high risk for decompensation. 09/25 patient was seen and examined at bedside with mother present. At time of visit patient is currently on room air has been weaned off oxygen. Yesterday patient was on 5 L. As per patient is tolerating room air well. Patient denies any chest pain or shortness of breadth, however does report shortness of breath upon minimal exertion. Patient remains on heparin drip. Patient is still currently pending coronary CT to be completed, further recommendations by Cardiology to follow once examined has been completed. Patient to continue on hemodialysis per Nephrology's recommendations. 09/26/24-patient is awake alert and oriented x3. He requires Levophed at 0 point 4 micrograms/kilogram per minute for blood pressure support. He was brought into the ICU overnight due to hypotension and elevated liver enzymes. Current blood pressure of 129/74 heart rate in the 80s respiratory rate of 19 saturating 100% with 7 L via Oxymizer and afebrile. As per RN she is weaning Levophed. Urine output was 100 mL in the last 24 hours he received hemodialysis today with 3.6 L out and had one bowel movement. WBCs spiked up this morning from 17.6224.2 H&H 8.6/25.4 and platelet count is normal 291 K. neutrophils 79.5. Suspect patient aspirated in the episode of hypotension due to increased pulmonary infiltrates to right side and spike in white count and temperature. Patient was panculture and cefepime changed to Zosyn to cover for aspiration pneumonia. On chest x-ray patient with a extensive bilateral infiltrates unchanged. No pneumothorax. Chemistries sodium of 130 potassium is 6.2 chloride of 90 carbon dioxide of 17 with a BUN of 119 and creatinine 9.6 and GFR of six liver enzymes raised AST of 6752 ALT of 4302, alkaline phosphatase of 233 likely from shock liver procalcitonin elevated at 24.31 decreased from admission wishes 70. On repeat BNP patient has a sodium of 134 potassium of 3.5 chloride of 91 carbon dioxide 26 with a anion gap of 17 and ketones of 1.4 we will need to restart insulin drip per DKA protocol. 09/27/24-pt is awake alert and oriented x 3. He is hemodynamically stable and off pressors. He denies any chill, chest pain or increased sob at rest. He does report sob on exertion and reports poor appetite. He is due for HD treatment today. Per RN no major overnight events and he has been afebrile. WBC's are trending down now 20.4, H&H is 8.9/26.3 and platelet count is 220 K. chemistry patient had a sodium of 134 potassium is normal 4.6 chloride of 92 carbon dioxide 24, AGAP has closed, liver enzymes severely elevated consistent with shocked lover but we will order us of abdomen to assess Liver and Gallbladder. Ketones of 0.2. We have discontinued DKA protocol and pt ,may be downgraded from ICU today. 2/ patient was seen and examined at bedside with family present. Patient is awake alert able to answer simple questions appropriately. Patient is on room air appears to be tolerating well. Patient has remained hemodynamically stable. Patient denies any chest pain or shortness of breadth. Denies any nausea vomiting or abdominal pain. Most per primary nurse no acute events to be reported. We will continue to follow recommendations from Nephrology and Cardiology appreciate assistance. We will continue to monitor patient closely / patient was seen and examined at bedside with family present. Patient remains on room air tolerating well. Patient is scheduled for coronary CT today we will follow recommendations from Cardiology. Patient to continue on hemodialysis per Nephrology's recommendations. Patient's WBCs trending down today 18.6 yesterday 22.0. Patient to continue on IV antibiotics. We will continue to monitor patient closely. 09/[address] coronary angiogram which revealed 90% stenosis of the LAD as well as 90% stenosis of the left circumflex. Per bedside nurse, patient was offered stent placement, however refused and is wanting to pursue this as an outpatient. Patient's blood sugar remains elevated in for 0s, we will adjust in sulin as indicated. Pro mallory significantly decreased from 70 down to 6. Blood and urine cultures remain negative, sputum cultures growing Dunia. His liver enzymes remain elevated but significantly downtrended. Patient is pending AV fistula for hemodialysis, however CTS is deferring this as an outpatient in order to prioritize his CAD management. 10/01 Patient had abnormal LHC and is referred for CABG. His abdominal U/S was negative for gallstones or ductal dilation. Carotid doppler WNL. CXR consisten t with pulmonary venous congestion. Continues on dialysis with temp cath per nephrology, pending AV graft by CTS. Blood sugar is persistently elevated, insulin adjusted per primary. 10/02 Patient is evaluated at bedside. Continues with dialysis as scheduled. Patient had endocrinology consult with the adjustment in his insulin regimen. Patient is pending CABG in a.m. He denies any chest pain. 10/03 Patient is evaluated at bedside. Insulin dosing adjusted per endocrinology with improvement in glucose readings. Continues with dialysis as scheduled. Pending CABG today, no current complaints. 10/04 patient was admitted at bedside. He was status post CABG yesterday by Dr. Page. He was brought in the ICU postop for medical management. At the time of my visit. Patient had been extubated and saturating well on aerosol mask at 40% FiO2. He is awake, alert, following commands. Continues on vasopressin and epinephrine. Patient also undergoing an extra dialysis session today which just over 1.2L removed. Per bedside nurse had to initiate levophed temporarily d/t low blood pressure. Chest tube in place with 1260ml of output per chart. His hemoglobin dropped to 5.5 overnight, did receive blood products with improvement to 9.0. 10/05 Patient is evaluated at bedside. Blood pressures are maintained with maps above 70. He continues on low-dose epi drip per CTS request. Chest tube with the about 800 cc of drainage overnight per nursing staff. Hemoglobin has dropped to 6.6, currently receiving one PRBC. He had a dialysis session yesterday, labs showed mild hyperkalemia. We will continue dialysis per Nephrology's recommendation. White blood count is within normal limits at nine, cultures remained negative. 10/06 patient is evaluated at bedside. Has been weaned off pressors. Blood pressures are holding up with maps above 70. CXR reveals atelectasis in pulmon efren congestion. Patient did have hemodialysis session yesterday with 2.4 L of fluid removed. His femoral a line has been removed and patient is up out of bed to chair. He is slightly edematous to upper and lower extremities. Encouraged use of incentive spirometer. Continues on 2 L NC. He is comfortable without pain. Patient's hemoglobin continues to fluctuate. Did receive 1 unit PRBC yesterday with improvement in hemoglobin to 8.1 now decreasing to 7.3. WBCs have remained within normal limits, patient without signs or symptoms of infection. His platelets have decreased to 38 today, patient is not on any antiplatelets or anticoagulants but does have heparin flush with dialysis. He continues with chest tube with about 1800 mL of total output about 600 mL overnight. Ok to downgrade patient. REVIEW OF SYSTEMS: 12 point ROS reviewed with patient. Pertinent positives mentioned above. Otherwise negative. PHYSICAL EXAM: GENERAL: alert, weak, awake oriented x 3, weak, deconditioned HEENT: EOMI, Sclera non icteric, moist mucosa NECK: Supple, no JVD, trachea midline LUNGS: coarse rhonchi breath sounds decreased bilaterally. No wheezes HEART: Regular rate and rhythm. Normal S1 and S2, without murmurs ABD: Abdomen soft, nontender. Bowel sounds present EXT: No clubbing cyanosis, positve 2+ edema to upper and lower extremities NEURO: Alert and oriented to person, follows commands Vital Signs (last 8hr) Date Time Temp Pulse Resp B/P (MAP) Pulse Ox O2 Delivery O2 Flow Rate FiO2 10/06/24 06:30 90 13 98/72 (81) 96 122/49 (73) 10/06/24 06:00 99 10 126/67 (86) 95 137/47 (77) 10/06/24 05:30 96 10 95 144/67 (92) 10/06/24 05:00 92 11 128/72 (90) 96 129/59 (82) 10/06/24 04:30 88 10 97 121/54 (76) 10/06/24 04:00 97.9 Nasal Cannula 2.0 10/06/24 04:00 93 11 113/75 (88) 96 134/61 (85) 10/06/24 04:00 97 Nasal Cannula* 2 28 10/06/24 03:30 92 11 98 127/57 (80) 10/06/24 03:00 93 11 120/74 (89) 96 135/60 (85) 10/06/24 02:30 93 11 96 136/58 (84) 10/06/24 02:00 95 8 129/71 (90) 97 141/62 (88) 10/06/24 01:30 96 11 96 155/64 (94) 10/06/24 01:00 93 11 116/70 (85) 97 136/59 (84) LABS: Hematology Labs: Test 10/06/24 03:55 10/05/24 05:39 Range/Units White Blood Count 6.1 # 4.8-10.8 K/uL Red Blood Count 2.60 L 4.50-6.20 MIL/uL Hemoglobin 7.3 L 14.0-18.0 g/dL Hematocrit 22.8 L 42-54 % Mean Corpuscular Volume 87.7 79-99 fL Mean Corpuscular Hemoglobin 28.1 27.0-33.0 pg Mean Corpuscular Hemoglobin Concent 32.0 32.0-36.0 g/dL Red Cell Distribution Width 16.4 H 11.0-15.5 % Platelet Count 39 #L 130-400 K/uL Mean Platelet Volume 11.9 H 7.5-10.5 fL Nucleated Red Blood Cells 0.0 0.0-0.19 % Platelet Morphology Comment See comments Chemistry Labs: Test 10/06/24 03:55 10/05/24 20:57 10/05/24 05:39 Range/Units Sodium Level 140 136-145 mmol/L Potassium Level 4.7 3.5-5.1 mmol/L Chloride Level 100 L 101-111 mmol/L Carbon Dioxide Level 30 21-32 mmol/L Blood Urea Nitrogen 45 H 7-18 mg/dL Creatinine 7.0 H 0.5-1.3 mg/dL Glomerular Filtration Rate Calc 9 >90 mL/min Random Glucose 229 #H 70-105 mg/dL Total Calcium 7.7 L 8.5-10.1 mg/dL Whole Blood Glucose 171 H 70-110 MG/DL Phosphorus Level 8.0 H 2.5-4.9 mg/dL Magnesium Level 2.00 1.80-2.40 mg/dL Total Bilirubin 0.3 0.2-1.0 mg/dL Aspartate Amino Transf (AST/SGOT) 53 H 10-37 U/L Alanine Aminotransferase (ALT/SGPT) 63 12-78 U/L Alkaline Phosphatase 72 50-136 U/L Total Protein 5.1 L 6.0-8.3 g/dL Albumin 2.5 L 3.5-5.0 g/dL Coagulation Labs: Test 10/05/24 05:39 Range/Units Prothrombin Time 10.9 9.6-11.6 SEC Prothromb Time International Ratio 0.97 0.85-1.15 Activated Partial Thromboplast Time 31.6 26.3-35.5 SEC DIAGNOSTICS / RADIOLOGY RESULTS: [Reviewed] PLAN HIT workup, oncology evaluation Not currently on AP/AC No heparin flush with dialysis Follow oncology recommendation Off pressors DC zosyn, completed 10 days IS throughout the day Supplemental O2 as needed, monitor ABG CAD management per cardiology Optimize glycemic control Optimize pulmonary function for CABG CPAP at night AVF for dialysis upon discharge Continue IV antibiotics Repeat labs in a.m. Rest of the care per primary team NEURO: Minimize central acting medications as possible. Maintain fall precautions, adequate lighting during the day PULMONARY: Supplemental 02 as needed. Maintain aspiration precautions at all times CARDIOVASCULAR: Follow hemodynamics. Vital signs per facility protocol GI & NUTRITION: Continue with nutritional support. Continue stool softeners and laxatives as needed. KIDNEYS & ELECTROLYTES: Strict monitoring of intake, output and overall fluid balance. Avoid nephrotoxic medications to the extent possible. Medications to be dosed according to renal function. Monitor electrolytes and replace as needed ENDOCRINE: Maintain blood glucose between 100-180 at all times. Hypoglycemia protocol in place INFECTIOUS DISEASE: Trend temperature, WBC and procalcitonin level Follow cultures, deescalate antibiotics as soon as possible. Panculture if new onset fever ONCOLOGY/HEMATOLOGY/COAGULATION: Monitor for s/s of bleeding Monitor hemoglobin, coagulation studies as needed SKIN: Pressure ulcer prevention per facility protocol Specialty mattress ORTHO/REHAB: Continue PT/OT Prophylaxis: Continue GI and DVT prophylaxis Code Status: Full Resuscitation Disposition: TBD Other: Case discussed with supervising physician plan of care agreed upon MARIELOS VALLEJO Oct 06, 2024 08:43
[2024-10-06 08:48] LABS: BASOPHILS # (AUTO) 0.03 K/uL (0.00-0.20); BASOPHILS % (AUTO) 0.5 % (0.0-5.0); EOSINOPHILS % (AUTO) 6.4 % (0.0-8.0); IMMATURE GRANULOCYTE ABSOLUTE 0.04 K/uL (0-1); LYMPHOCYTES # (AUTO) 0.5 K/uL (1.0-4.8); LYMPHOCYTES % (AUTO) 8.3 % (21.0-51.0); MONOCYTES # (AUTO) 0.5 K/uL (0.1-1.0); MONOCYTES % (AUTO) 7.9 % (3.0-13.0); NEUTROPHILS # (AUTO) 4.8 K/uL (1.8-7.7); NEUTROPHILS % (AUTO) 76.3 % (40.0-77.0)
[2024-10-06 09:08] LABS: ABG BASE EXCESS 0.3 mmol/L (-2.0-3.0); ABG HCO3 25.8 mmol/L (21.0-28.0); ABG OXYGEN SATURATION 93.1 % (94.0-98.0); ABG PCO2 46 mmHg (35-48); ABG PH 7.368 (7.350-7.450); CARBON MONOXIDE 0.6 % (0.5-1.5); HHb 6.8; VENT MODE, BG NC (ROOM AIR)
[2024-10-06] MEDS: metoPROLOL tartRATE 25 MG TAB PO SCH (09:12)
[2024-10-06] MEDS: INSULIN humuLIN R 100 UNIT/ML 3ML SQ SCH ×2 (09:15→09:17)
[2024-10-06] MEDS: INSULIN GLARgine 100 UNITS/ML 10 ML VIAL SQ SCH (09:16)
[2024-10-06 09:53] LABS: HEMATOCRIT 23.5 % (42-54)
[2024-10-06 10:20] LABS: INR 1.03 (0.85-1.15); PROTHROMBIN TIME 11.5 SEC (9.6-11.6)
[2024-10-06 10:21] LABS: PARTIAL THROMBOPLASTIN TIME 33.4 SEC (26.3-35.5)
--- NOTE | 2024-10-06 14:02 | PN ---
NEPHROLOGY PROGRESS NOTE Date/Time Patient Seen: Oct 06, 2024 Reason for Consultation: 14:02 SUBJECTIVE: This is a 49-year-old male with past medical history of CKD, diabetes, hypertension, hyperlipidemia and obesity He presents to the ED for complaints of cough and chest congestion Patient reports coughing up pinkish colored thick phlegm, loss of appetite and on Sunday Positive for influenza A, Chest x-ray result revealed extensive bilateral mid to lower lung pneumonia right greater than left. Coronary CTA that showed severe stenosis ( Prox-mid LAD 90 % stenosis, Prox and mid LCx 90 % stenosis ) CAD -RAD 4 A S/P coronary angiogram yesterday and was found with severe 2 vessel CAD in the LAD and Left Cx, S/p CABGx3 on 10/03/2024 He has been extubated and vasopressors has been discontinued. He has been initiated on renal replacement therapy Tolerated dialysis without difficulty yesterday Case management coordinating outpatient dialysis chair [facility] He was seen in the ICU, in no acute distress Family at the bedside Prognosis remains guarded REVIEW OF SYSTEMS: GENERAL: Positive for cough, congestion and generalized weakness NEUROLOGIC: Negative for any blurry vision, blind spots, double vision, facial asymmetry, dysphagia, dysarthria, hemiparesis, hemisensory deficits, vertigo, ataxia. HEENT: Negative for any head trauma, neck trauma, neck stiffness, photophobia, phonophobia, sinusitis, rhinitis. CARDIAC: Negative for any chest pain, dyspnea on exertion, paroxysmal nocturnal dyspnea, peripheral edema. PULMONARY: Negative for any shortness of breath, wheezing, COPD, or TB exposure. GASTROINTESTINAL: Negative for any abdominal pain, nausea, vomiting, bright red blood per rectum, melena. GENITOURINARY: Negative for any dysuria, hematuria, incontinence. INTEGUMENTARY: Negative for any rashes, cuts, insect bites. RHEUMATOLOGIC: Negative for any joint pains, photosensitive rashes, history of vasculitis or kidney problems. HEMATOLOGIC: Negative for any abnormal bruising, frequent infections or bleeding. PHYSICAL EXAM: GENERAL: Alert and oriented x 3. No acute distress. Well-nourished. EYES: EOMI. Anicteric. HENT: Moist mucous membranes. No scleral icterus. No cervical lymphadenopathy. LUNGS: Clear to auscultation bilaterally. No accessory muscle use. CARDIOVASCULAR: Regular rate and rhythm. No murmur. No JVD. ABDOMEN: Soft, non-tender and non-distended. No palpable masses. EXTREMITIES: 2+ edema. Non-tender. SKIN: No rashes or lesions. Warm. NEUROLOGIC: No focal neurological deficits. CN II-XII grossly intact, but not individually tested. PSYCHIATRIC: Cooperative. Appropriate mood and affect. LABORATORY: [ ] Hematology Labs: Test 10/06/24 09:24 10/06/24 03:55 10/05/24 05:39 Range/Units Hemoglobin 7.7 L 14.0-18.0 g/dL Hematocrit 23.5 L 42-54 % White Blood Count 6.1 # 4.8-10.8 K/uL Red Blood Count 2.60 L 4.50-6.20 MIL/uL Mean Corpuscular Volume 87.7 79-99 fL Mean Corpuscular Hemoglobin 28.1 27.0-33.0 pg Mean Corpuscular Hemoglobin Concent 32.0 32.0-36.0 g/dL Red Cell Distribution Width 16.4 H 11.0-15.5 % Platelet Count 39 #L 130-400 K/uL Mean Platelet Volume 11.9 H 7.5-10.5 fL Immature Granulocyte % (Auto) 0.6 0-1 % Neutrophils (%) (Auto) 76.3 40.0-77.0 % Lymphocytes (%) (Auto) 8.3 L 21.0-51.0 % Monocytes (%) (Auto) 7.9 3.0-13.0 % Eosinophils (%) (Auto) 6.4 0.0-8.0 % Basophils (%) (Auto) 0.5 0.0-5.0 % Neutrophils # (Auto) 4.8 1.8-7.7 K/uL Lymphocytes # (Auto) 0.5 L 1.0-4.8 K/uL Monocytes # (Auto) 0.5 0.1-1.0 K/uL Eosinophils # (Auto) 0.40 0.00-0.70 K/uL Basophils # (Auto) 0.03 0.00-0.20 K/uL Absolute Immature Granulocyte (auto 0.04 0-1 K/uL Nucleated Red Blood Cells 0.0 0.0-0.19 % White Cell Morphology Comment See comments Platelet Morphology Comment See comments Chemistry Labs: Test 10/06/24 10:46 10/06/24 03:55 10/05/24 05:39 Range/Units Whole Blood Glucose 270 #H 70-110 MG/DL Sodium Level 140 136-145 mmol/L Potassium Level 4.7 3.5-5.1 mmol/L Chloride Level 100 L 101-111 mmol/L Carbon Dioxide Level 30 21-32 mmol/L Blood Urea Nitrogen 45 H 7-18 mg/dL Creatinine 7.0 H 0.5-1.3 mg/dL Glomerular Filtration Rate Calc 9 >90 mL/min Random Glucose 229 #H 70-105 mg/dL Total Calcium 7.7 L 8.5-10.1 mg/dL Phosphorus Level 8.0 H 2.5-4.9 mg/dL Magnesium Level 2.00 1.80-2.40 mg/dL Total Bilirubin 0.3 0.2-1.0 mg/dL Aspartate Amino Transf (AST/SGOT) 53 H 10-37 U/L Alanine Aminotransferase (ALT/SGPT) 63 12-78 U/L Alkaline Phosphatase 72 50-136 U/L Total Protein 5.1 L 6.0-8.3 g/dL Albumin 2.5 L 3.5-5.0 g/dL Coagulation Labs: Test 10/06/24 09:24 Range/Units Prothrombin Time 11.5 9.6-11.6 SEC Prothromb Time International Ratio 1.03 0.85-1.15 Activated Partial Thromboplast Time 33.4 26.3-35.5 SEC Fibrinogen 622 *H 180-350 mg/dL D-Dimer Quantitative (PE/DVT) 475 0-500 ng/mL DIAGNOSTICS / RADIOLOGY: REASON: s/p CABG ORDERING PHYSICIAN: CANDIDA SZYMANSKI MD PROCEDURE: CXR1VW - CHEST 1VW CHEST 1VW HISTORY: Post CABG COMPARISON: 10/05/2024 FINDINGS: A frontal projection of the chest was obtained. Mild bilateral pulmonary infiltrates are seen may be related to mild pulmonary vascular congestion with possible superimposed pneumonitis. Poststernotomy changes are seen. The heart is enlarged. Degenerative changes of the thoracolumbar spine are present. All the lines and tubes are again seen in place. No evidence of aortic calcification is seen. IMPRESSION: 1. Mild bilateral pulmonary infiltrates are seen may be related to mild pulmonary vascular congestion with possible superimposed pneumonitis. Mild interval worsening is seen. DICTATED BY: JENNIFER MESA MD DATE: 10/06/24 0837 REASON: SOB ORDERING PHYSICIAN: CANDIDA SZYMANSKI MD PROCEDURE: CXR1VW - CHEST 1VW FRONTAL CHEST RADIOGRAPH INDICATION: SOB COMPARISON: 10/04/2024 FINDINGS/IMPRESSION: field handyman leads overlie the field of view. Median sternotomy wires as well as fixation plates and screws are in appropriate alignment. Defibrillator patch has been removed. Stable [place] catheter and pleural mediastinal drainage catheters. Stable heart size and residual mild central pulmonary vascular congestion. Mild bilateral perihilar atelectasis and suspect trace left pleural fluid with subjacent subsegmental atelectasis, but no evidence for pneumothorax. DICTATED BY: AGUS MC MD DATE: 10/05/24 1020 REASON: s/p CABG ORDERING PHYSICIAN: CANDIDA SZYMANSKI MD PROCEDURE: CXR1VW - CHEST 1VW CHEST 1VW CLINICAL HISTORY: s/p CABG COMPARISON: 10/13/2024 TECHNIQUE: Single view of the chest was obtained. FINDINGS: There has been interval extubation. The remaining supporting lines and tubes are stable. There is mild pulmonary edema or congestive failure. There is worsening retrocardiac left lower lobe increased opacification. The cardiomediastinal silhouette and bony structures stable. IMPRESSION: Slightly worsened airspace disease status post extubation. DICTATED BY: HEIDI VERMA DO DATE: 10/04/24 1319 REASON: preop CABG ORDERING PHYSICIAN: CANDIDA SZYMANSKI MD PROCEDURE: CXR1VW - CHEST 1VW Exam Type: CHEST 1VW Clinical Information: preop CABG Comparison: None Findings: Right permacath line is noted with tip at the distal superior vena caval level. The lungs are clear of infiltrates. The heart is normal in size. The bony and soft tissue structures of the chest are unremarkable. Impression: Clear lungs. DICTATED BY: ORTIZ BENITES MD DATE: 10/03/24 0838 REASON: sob ORDERING PHYSICIAN: MARIELOS VALLEJO PROCEDURE: CXR1VW - CHEST 1VW Exam Type: CHEST 1VW Clinical Information: sob Comparison: None Findings: Right permacath line is noted with tip at the distal superior vena caval level. There is cardiomegaly. There is prominence of the vascular markings consistent with pulmonary venous congestion. IMPRESSION: Findings consistent with pulmonary venous congestion. DICTATED BY: ORTIZ BENITES MD DATE: 10/01/24 1905 REASON: preop CABG ORDERING PHYSICIAN: CANDIDA SZYMANSKI MD PROCEDURE: CAROTID - US CAROTID DUPLEX Carotid Duplex and color-flow Doppler bilateral History: preop CABG Comparison: None Findings: No significant plaque is identified on either side. Left Internal Carotid Artery Peak Systolic Velocity (PSV), Left Internal Carotid to Common Carotid Artery peak systolic velocity ratio, Right Internal Carotid Artery Peak Systolic Velocity (PSV) and Right Internal Carotid to Common Carotid Artery peak systolic velocity ratio, are all within normal limits. External carotid artery velocities normal bilaterally. Bilateral vertebral arteries show antegrade flow. Impression: Normal exam. NASCET CRITERIA. The degree of internal carotid artery stenosis is based on NASCET criteria. Normal is no stenosis. Mild is less than 50% stenosis. Moderate is 50-69% stenosis. Severe is 70% to 99% stenosis. Total occlusion is no detectable patent lumen. DICTATED BY: ORTIZ BENITES MD DATE: 10/01/24 1621 REASON: nstemi ORDERING PHYSICIAN: ARIELA CHOI MD PROCEDURE: CTCAWC - CT CARDIAC ANGIO W/CONT. CCTA CT OF THE CHEST WITH CONTRAST- CT Cardiac Angio co-interpretation This is done as part of the CT cardiac angiogram study. The interpretation of the coronary arteries will be done by childrens club attendant in a separate report. History: over-read Comparison: none CT Dose Index (CTDI): 77.90 mGy Dose Length Product (DLP): 493.40 total mGy PROTOCOL: Examination is done at 2.5 millimeter volumetric acquisition after contrast administration with Isovue 370, 100 cc IV, without complications. Photography is done at 5 millimeter thick intervals for the thorax. The examination begins above the heart and therefore the lung apices are incompletely included. The rest of the left lung is included but the right lung is only included up to its middle third. The periphery of the right lung is not included in the study. FINDINGS: The visualized part of the airway is preserved. The bony and soft tissue structures of the chest wall are unremarkable. The aorta is unremarkable. No mediastinal lymphadenopathy is seen. The appendix is distended and there are surrounding inflammatory changes and the possibility of acute appendicitis cannot be excluded. There is no evidence of pulmonary embolism in the visualized lung segments. The upper abdominal views are unremarkable. Impression: NoThe appendix is distended and there are surrounding inflammatory changes and the possibility of acute appendicitis cannot be excluded. DICTATED BY: ORTIZ BENIETS MD DATE: 09/29/24 1453 REASON: assess liver cirrhosis and CBD dilation ORDERING PHYSICIAN: SHAVON ARAGON PROCEDURE: ABDOMEN - US ABDOMINAL COMPLETE US ABDOMINAL COMPLETE HISTORY: No additional history given. COMPARISON: None TECHNIQUE: Multiple transverse and longitudinal ultrasound images of the abdomen were obtained. FINDINGS: Abdominal aorta and inferior vena cava are unremarkable. The visualized portion of the pancreas is within normal limits. Portal vein is patent. Liver measures 17 cm. Liver is echogenic consistent with liver parenchymal disease. No gallstone is seen. Common duct measures 4 mm. No evidence of gallbladder wall thickening is seen. Both kidneys are seen. Right kidney measures 10.3 x 4.9 x 5 cm. Left kidney measures 10.3 x 6.4 x 3 cm. No hydronephrosis is seen of the both kidneys. Spleen measures 12 cm. The spleen is grossly unremarkable. IMPRESSION: 1. No gallstone or ductal dilatation is seen. 2. No hydronephrosis is seen. DICTATED BY: JENNIFER MESA MD DATE: 09/28/24 1528 REASON: hypoxic resp failure ORDERING PHYSICIAN: SHAVON ARAGON PROCEDURE: CXR1VW - CHEST 1VW CHEST 1VW REASON: hypoxic resp failure COMPARISON: 09/23/2024 FINDINGS: There are diffuse bilateral infiltrates which are unchanged. Dialysis catheter remains in place. There is no pneumothorax or other complication. There are no pleural effusions. IMPRESSION: 1. Extensive bilateral infiltrates unchanged. DICTATED BY: ARMANDO FAIR MD DATE: 09/24/24 1051 REASON: FVO ORDERING PHYSICIAN: FELIX BARBOSA NP PROCEDURE: ECHO CMP - ECHO 2-D COMPLETE APPROVED REPORT EXAM: Two-dimensional and M-mode echocardiogram with Doppler and color Doppler. INDICATION ICD: Fluid volume overload 2D Dimensions RVDd 4.4 cm LVEF(%) 41.1 (>50%) LVED Vol(simp.) 176.0 mL IVSd 1.0 (0.7-1.1cm) FS(%) 20 % LVES Vol(simp.) 104.0 mL LVDd 5.4 (3.8-5.6cm) LA (2D) 4.1 (1.6-4.0cm) LVEF(%, simp.) 41 % PWd 1.4 (0.7-1.1cm) Ao Root(2D) 2.9 (2.0-3.7cm) LA ESV INDEX (4CH) 33.40 mL/m2 IVSs 1.2 cm LVOT diam 2.0 (1.8-2.4cm) LA ESV INDEX (2CH) 45.20 mL/m2 LVDs 4.3 (2.5-4.0cm) IVC diam 2.1 cm LA ESV INDEX (BP) 39.50 mL/m2 PWs 2.0 cm Deformation Strain Apical 4 -9.0 % Apical 2 -9.0 % Apical 3 -9.0 % Global Strain -9.0 % M-Mode Dimensions EPSS 1.7 cm LA (MM) 3.4 (1.6-4.0cm) Ao Root(MM) 3.3 (2.0-3.7cm) Aortic Valve AoV VTI 0.3 m Ao Mean GR 9.0 mmHg LVOT VTI 0.20 m STEPHANIE (VMAX) 1.9 cm2 STEPHANIE (VTI) 1.9 cm2 Mitral Valve MV E Vmax 149.3 cm/s DECEL Time 78 ms P 1/2 T 56 ms MVA (PHT) 3.9 cm2 TDI E/E' Medial 19.4 E/E' Lateral 11.8 Medial E' Peak V 7.70 cm/s Lateral E' Peak V 12.70 cm/s Tricuspid Valve RAP (EST) 8 mmHg RVSP 8.0 mmHg Left Ventricle The left ventricle is normal size. The inferior wall is severely hypokinetic. The other ibrahim are hypokinetic. Moderate concentric hypertrophy of the left ventricle is noted. Left ventricle systolic function is moderate to severely depressed, estimated LVEF 35 to 40%. E to E ratio is greater than 14, which is suggestive of increased left ventricle end-diastolic filling pressures. Right Ventricle The right ventricle is dilated. The right ventricular systolic function is normal. Atria The left atrium is mildly dilated, 40 mL/m. The right atrium is dilated. Aortic Valve Aortic valve is probably trileaflet. The leaflets are severely thickened and calcified. Trace aortic regurgitation. Mild aortic stenosis: Peak velocity 2.0 m/s, mean gradient 9 mmHg Mitral Valve Mild mitral annular calcification is noted. The leaflets are mild thickened and calcified. Trace mitral regurgitation. There is no mitral valve stenosis. Tricuspid Valve The tricuspid valve is normal in structure. Trace tricuspid regurgitation. RVSP is grossly normal, but is likely underestimated. Pulmonic Valve Pulmonic valve is not well visualized. Great Vessels The aortic root is normal in size. The IVC is normal in size and collapses <50% with inspiration. Pericardium Trace pericardial effusion. Other Information Quality : Technically difficult due to body habitus Conclusion The left atrium is mildly dilated, 40 mL/m. The right atrium is dilated. The right ventricle is dilated. Moderate concentric hypertrophy of the left ventricle is noted. The inferior wall is severely hypokinetic. The other ibrahim are hypokinetic. Left ventricle systolic function is moderate to severely depressed, estimated LVEF 35 to 40%. E to E ratio is greater than 14, which is suggestive of increased left ventricle end-diastolic filling pressures. Mild aortic stenosis: Peak velocity 2.0 m/s, mean gradient 9 mmHg (likely underestimated). Trace aortic regurgitation. Trace mitral regurgitation. Trace pericardial effusion. PASP is grossly normal, but is likely under estimated. Trace pericardial effusion. DICTATED BY: RONALD AGUAYO MD DATE: 09/23/24 0731 REASON: acute renal failure ORDERING PHYSICIAN: TERRANCE CHAN PROCEDURE: RENAL - US RENAL SONOGRAM US RENAL SONOGRAM REASON: acute renal failure COMPARISON: None TECHNIQUE: Renal and bladder sonogram was performed. FINDINGS: Right kidney is 11.3 x 4.9 x 4.7 cm, left is 11.5 x 5.5 x 4.4 cm. There is no mass, stone or hydronephrosis. Cortical thickness appears preserved. Echogenicity appears normal. The urinary bladder appears normal as well. IMPRESSION: 1. Normal renal and bladder sonogram. DICTATED BY: ARMANDO FAIR MD DATE: 09/22/24 1127 REASON: sob ORDERING PHYSICIAN: TERRANCE CHAN PROCEDURE: CHEST WO - CT CHEST W/O CONTRAST CT CHEST WITHOUT CONTRAST INDICATION: Bilateral lung pneumonia TECHNIQUE: Routine axial images using 5 mm slice thickness were acquired from the lung apices to the bases without the administration of IV contrast.Coronal and sagittal reformatted images acquired for interpretation. CT was performed with one or more of the following dose reduction techniques: Automated exposure control, adjustment of the mA and/or kV according to patient size, or use of iterative reconstruction technique. COMPARISON: None FINDINGS: The heart size is normal. Coronary arterial wall calcific plaque noted. No pericardial effusion noted. Mild calcific plaque is present along the aortic arch and thoracic aortic ibrahim without aneurysmal dilation. The trachea and airways are patent. Coalescent "ground-glass" opacities with intermixed consolidation/nodularity noted throughout the bilateral lungs in a centrilobular distribution. No axillary, hilar, or mediastinal lymphadenopathy. No pleural effusion or pneumothorax identified. Limited views of the upper abdomen appear normal. Visible osseous structures are intact. IMPRESSION: Extensive bilateral lung pneumonia. Arteriosclerotic disease as described. DICTATED BY: AGUS MC MD DATE: 09/21/242025 REASON: cough, shortness of breath ORDERING PHYSICIAN: HEBER CABRERA NP PROCEDURE: CXR1VW - CHEST 1VW PORTABLE CHEST RADIOGRAPH INDICATION: cough, shortness of breath COMPARISON: 04/05/2024 FINDINGS: Heart size is normal. The pulmonary vascularity and eder appear normal. Extensive coalescent/consolidative bilateral mid to lower lung opacities, right greater than left. No significant pleural effusion noted. No pneumothorax detected. IMPRESSION: Extensive bilateral mid to lower lung pneumonia, right greater than left. DICTATED BY: AGUS MC MD DATE: 09/21/241899 ASSESSMENT: Volume overload End-stage renal disease Hyperosmolar Hyperglycemic Syndrome NSTEMI Influenza A Acute Hypoxemic Respiratory Failure Metabolic acidosis Lactic acidosis CKD stage 4 Uncontrolled Diabetes Protein Calorie malnutrition PLAN: Labs, diagnostic, radiologic exams reviewed and interpreted by myself and supervising physician. We have reviewed external records in detail Dialysis planned for tomorrow Follow renal diabetic diet We will continue to monitor the patient closely Case management to coordinate outpatient dialysis chair [facility]. Preserve nondominant arm Require close monitoring of renal function and electrolytes Order CBC, CMP,and electrolytes in am Continue with antibiotics IV pressors as needed Renal diabetic diet BiPAP as necessary, for respiratory distress Monitor blood pressure adjust medication doses as needed Avoid hypotensive episodes May use Dilaudid 0.5 mg IV every 6 hours as needed for severe pain Monitor blood sugars Strict intake, output, and daily weight should be monitored Please renally adjust medications Avoid nephrotoxic and nonsteroidal drugs Avoid contrast if possible Will continue to monitor renal function, anemia, electrolytes Treatment plan discussed with patient Questions were answered We have discussed with the other team physicians in detail about the care plan Total critical care time spent with patient, nursing staff, critical care team over 35 minutes ATTESTATION BY PHYSICIAN I have seen and examined the patient. I reviewed the documentation, medical decision making, and treatment plan as noted by the mid-level provider above. I agree with the findings and plan of care. BRAYDON HOLLINGSWORTH MD, [facility] Oct 06, 2024 14:02
--- NOTE | 2024-10-06 16:58 | CONS ---
CONSULT NOTE: 09/22/2024: At the time my evaluation, the patient was in the emergency department awaiting bed assignment. The staff nurse reports no acute events overnight. The patient was on a Oxymizer with optimal SpO2. He was nor motensive without the need for pressor therapy. There was no complaint of chest pain. There was no abdominal pain, nausea vomiting or diarrhea. The patient continued on a insulin drip per the DKA protocol. He was started on antibiotic and antiviral therapy for management of his condition. Review of labs today showed no major concern on CBC. Chemistry panel did show a sodium of 135, chloride of 100 and a CO2 of 20 with a anion gap of 15. Blood glucose remains elevated in the 300s. No new complaint. 09/23- saw patient and ED 13 awake alert and oriented x3. 2D echo at bedside being performed. Patient has been afebrile heart rate of 110, blood pressure 116/63 with respiratory rate of 20 saturating 97% with 7 L via nasal cannula oximizer. Urine output 1.4 L in the last 24 hours. On laboratory WBCs are 11.4 H&H trending down 7.6/23.1 with a platelet count that is 178 K. on chemistry sodium 136 potassium of 3.7 chloride 100 carbon dioxide of 19 BUN 106. Creatinine of 8.6 and GFR of 7. Per Dr Armenta pt scheduled for a Mitesh hemodialysis catheter per IR today. Pt continues with Tamiflu, Doxy, Cefepime and MRSA coverage will be added w/ vanco due to suspected MRSA superimposed pneumonia on Influenza pneumonia. On CT chest, abdomen and pelvis shows Acute appearing infiltrates in both lung bases consistent with pneumoniae. No acute finding in the abdomen or pelvis. Del Cid catheter in good position in the urinary bladder. We will continue to follow Neprhology recommendations. 09/24 patient was seen and examined at bedside with primary nurse present. Patient to receive1 unit PRBCs hemoglobin this a.m. 6.8. Continue to monitor closely. Patient to continue on IV antibiotics. Patient's troponin levels trending down. We will continue to follow recommendations of Cardiology. Patient remains hypoxic requiring supplemental oxygen via nasal cannula at L. Patient states does not use home oxygen. Patient is to continue on heparin drip. Patient to continue on IV steroids. Patient's echocardiogram revealed EF of 35-40%. Patient's blood cultures have been negative x2 days. Patient remains high risk for decompensation. 09/25 patient was seen and examined at bedside with mother present. At time of visit patient is currently on room air has been weaned off oxygen. Yesterday patient was on 5 L. As per patient is tolerating room air well. Patient denies any chest pain or shortness of breadth, however does report shortness of breath upon minimal exertion. Patient remains on heparin drip. Patient is still cu rrently pending coronary CT to be completed, further recommendations by Cardiology to follow once examined has been completed. Patient to continue on hemodialysis per Nephrology's recommendations. 09/26/24-patient is awake alert and oriented x3. He requires Levophed at 0 point 4 micrograms/kilogram per minute for blood pressure support. He was brought into the ICU overnight due to hypotension and elevated liver enzymes. Current blood pressure of 129/74 heart rate in the 80s respiratory rate of 19 saturating 100% with 7 L via Oxymizer and afebrile. As per RN she is weaning Levophed. Urine output was 100 mL in the last 24 hours he received hemodialysis today with 3.6 L out and had one bowel movement. WBCs spiked up this morning from 17.6224.2 H&H 8.6/25.4 and platelet count is normal 291 K. neutrophils 79.5. Suspect patient aspirated in the episode of hypotension due to increased pulmonary infiltrates to right side and spike in white count and temperature. Patient was panculture and cefepime changed to Zosyn to cover for aspiration pneumonia. On chest x-ray patient with a extensive bilateral infiltrates unchanged. No pneumothorax. Chemistries sodium of 130 potassium is 6.2 chloride of 90 carbon dioxide of 17 with a BUN of 119 and creatinine 9.6 and GFR of six liver enzymes raised AST of 6752 ALT of 4302, alkaline phosphatase of 233 likely from shock liver procalcitonin elevated at 24.31 decreased from admission wishes 70. On repeat BNP patient has a sodium of 134 potassium of 3.5 chloride of 91 carbon dioxide 26 with a anion gap of 17 and ketones of 1.4 we will need to restart insulin drip per DKA protocol. 09/27/24-pt is awake alert and oriented x 3. He is hemodynamically stable and off pressors. He denies any chill, chest pain or increased sob at rest. He does report sob on exertion and reports poor appetite. He is due for HD treatment today. Per RN no major overnight events and he has been afebrile. WBC's are trending down now 20.4, H&H is 8.9/26.3 and platelet count is 220 K. chemistry patient had a sodium of 134 potassium is normal 4.6 chloride of 92 carbon dioxide 24, AGAP has closed, liver enzymes severely elevated consistent with shocked lover but we will order us of abdomen to assess Liver and Gallbladder. Ketones of 0.2. We have discontinued DKA protocol and pt ,may be downgraded from ICU today. 09/28 patient was seen and examined at bedside with family present. Patient is awake alert able to answer simple questions appropriately. Patient is on room air appears to be tolerating well. Patient has remained hemodynamically stable. Patient denies any chest pain or shortness of breadth. Denies any nausea vom iting or abdominal pain. Most per primary nurse no acute events to be reported. We will continue to follow recommendations from Nephrology and Cardiology appreciate assistance. We will continue to monitor patient closely 09/29 patient was seen and examined at bedside with family present. Patient remains on room air tolerating well. Patient is scheduled for coronary CT today we will follow recommendations from Cardiology. Patient to continue on hemodialysis per Nephrology's recommendations. Patient's WBCs trending down today 18.6 yesterday 22.0. Patient to continue on IV antibiotics. We will continue to monitor patient closely. 09/[address] coronary angiogram which revealed 90% stenosis of the LAD as well as 90% stenosis of the left circumflex. Per bedside nurse, patient was offered stent placement, however refused and is wanting to pursue this as an outpatient. Patient's blood sugar remains elevated in for 0s, we will adjust insulin as indicated. Pro mallory significantly decreased from 70 down to 6. Blood and urine cultures remain negative, sputum cultures growing Dunia. His liver enzymes remain elevated but significantly downtrended. Patient is pending AV fistula for hemodialysis, however CTS is deferring this as an outpatient in order to prioritize his CAD management. 10/01 Patient had abnormal LHC and is referred for CABG. His abdominal U/S was negative for gallstones or ductal dilation. Carotid doppler WNL. CXR consistent with pulmonary venous congestion. Continues on dialysis with temp cath per nephrology, pending AV graft by CTS. Blood sugar is persistently elevated, insulin adjusted per primary. 10/02 Patient is evaluated at bedside. Continues with dialysis as scheduled. Patient had endocrinology consult with the adjustment in his insulin regimen. Patient is pending CABG in a.m. He denies any chest pain. 10/03 Patient is evaluated at bedside. Insulin dosing adjusted per endocrinology with improvement in glucose readings. Continues with dialysis as scheduled. Pending CABG today, no current complaints. 10/04 patient was admitted at bedside. He was status post CABG yesterday by Dr. Page. He was brought in the ICU postop for medical management. At the time of my visit. Patient had been extubated and saturating well on aerosol mask at 40% FiO2. He is awake, alert, following commands. Continues on vasopressin and epinephrine. Patient also undergoing an extra dialysis session today which just over 1.2L removed. Per bedside nurse had to initiate levophed temporarily d/t low blood pressure. Chest tube in place with 1260ml of output per chart. His hemoglobin dropped to 5.5 overnight, did receive blood products with improvement to 9.0. 10/05 Patient is evaluated at bedside. Blood pressures are maintained with maps above 70. He continues on low-dose epi drip per CTS request. Chest tube with the about 800 cc of drainage overnight per nursing staff. Hemoglobin has dropped to 6.6, currently receiving one PRBC. He had a dialysis session yesterday, labs showed mild hyperkalemia. We will continue dialysis per Nephrology's recommendation. White blood count is within normal limits at nine, cultures remained negative. 10/06 patient is evaluated at bedside. Has been weaned off pressors. Blood pressures are holding up with maps above 70. CXR reveals atelectasis in pulmonary congestion. Patient did have hemodialysis session yesterday with 2.4 L of fluid removed. His femoral a line has been removed and patient is up out of bed to chair. He is slightly edematous to upper and lower extremities. Encouraged use of incentive spirometer. Continues on 2 L NC. He is comfortable without pain. Patient's hemoglobin continues to fluctuate. Did receive 1 unit PRBC yesterday with improvement in hemoglobin to 8.1 now decreasing to 7.3. WBCs have remained within normal limits, patient without signs or symptoms of infection. His platelets have decreased to 38 today, patient is not on any antiplatelets or anticoagulants. He continues with chest tube with about 1800 mL of total output about 600 mL overnight. REVIEW OF SYSTEMS: 12 point ROS reviewed with patient. Pertinent positives mentioned above. Otherwise negative. PHYSICAL EXAM: GENERAL: alert, weak, awake oriented x 3, weak, deconditioned HEENT: EOMI, Sclera non icteric, moist mucosa NECK: Supple, no JVD, trachea midline LUNGS: coarse rhonchi breath sounds decreased bilaterally. No wheezes HEART: Regular rate and rhythm. Normal S1 and S2, without murmurs ABD: Abdomen soft, nontender. Bowel sounds present EXT: No clubbing cyanosis, positve 2+ edema to upper and lower extremities NEURO: Alert and oriented to person, follows commands LAB RESULTS 10/06/24 16:27: Whole Blood Glucose 223H 10/06/24 09:24: Hemoglobin 7.7L, Hematocrit 23.5L, Prothrombin Time 11.5, Prothromb Time International Ratio 1.03, Activated Partial Thromboplast Time 33.4, Fibrinogen 622*H, D-Dimer Quantitative (PE/DVT) 475 10/06/24 09:06: Blood Gas Specimen Type Arterial, Arterial Blood pH 7.368, Arterial Blood Partial Pressure CO2 46, Arterial Blood Partial Pressure O2 73.0L, Arterial Blood HCO3 25.8, Arterial Blood Oxygen Saturation 93.1L, Arterial Blood Base Excess 0.3, Hemoglobin (Blood Gas) 8.5L, Sodium (Blood Gas) 134L, Bedside Po tassium (Blood Gas) 4.8H, Bedside Chloride (Blood Gas) 95L, Bedside Glucose (Blood Gas) 225H, Bedside Ionized Calcium (Blood Gas) 1.01L, Bedside Lactic Acid (Blood Gas) 0.72, Blood Gas Temperature 37.0, Blood Gas Flow-by 2.00, Blood Gas Vent Mode NC, FiO2 28.0, Blood Gas Specimen Comment DIONICIO HUMPHREYRN 10/06/24 03:55: White Blood Count 6.1#, Red Blood Count 2.60L, Mean Corpuscular Volume 87.7, Mean Corpuscular Hemoglobin 28.1, Mean Corpuscular Hemoglobin Concent 32.0, Red Cell Distribution Width 16.4H, Platelet Count 39#L, Mean Platelet Volume 11.9H, Immature Granulocyte % (Auto) 0.6, Neutrophils (%) (Auto) 76.3, Lymphocytes (%) (Auto) 8.3L, Monocytes (%) (Auto) 7.9, Eosinophils (%) (Auto) 6.4, Basophils (%) (Auto) 0.5, Neutrophils # (Auto) 4.8, Lymphocytes # (Auto) 0.5L, Monocytes # (Auto) 0.5, Eosinophils # (Auto) 0.40, Basophils # (Auto) 0.03, Absolute Immature Granulocyte (auto 0.04, Nucleated Red Blood Cells 0.0, White Cell Morphology Comment See comments, Sodium Level 140, Potassium Level 4.7, Chloride Level 100L, Carbon Dioxide Level 30, Blood Urea Nitrogen 45H, Creatinine 7.0H, Glomerular Filtration Rate Calc 9, Random Glucose 229#H, Total Calcium 7.7L 10/05/24 05:39: Platelet Morphology Comment See comments, Phosphorus Level 8.0H, Magnesium Level 2.00, Total Bilirubin 0.3, Aspartate Amino Transf (AST/SGOT) 53H, Alanine Aminotransferase (ALT/SGPT) 63, Alkaline Phosphatase 72, Total Protein 5.1L, Albumin 2.5L Assessment 1. Coronary artery disease status post bypass procedure 2. Anemia 3. Thrombocytopenia 4. End-stage renal disease on hemodialysis 5. Ischemic cardiomyopathy 6. Diabetes mellitus 7. Hyperlipidemia 8. Hypertension Plan 1. Peripheral blood smear showed red blood cells to be normocytic normochromic. There was no fragment cell or schistocyte. There is no teardrop cell. There is no rouleaux phenomena. There is no pelger-Huet cell. White blood cell with no blasts. there is decreased number of the platelet. There is no clumping of the platelet. Platelet actually is normal size consistent with bone marrow suppression. There was no schistocytes or fragment cell. 2. There was hypersegmented neutrophils. This patient to be started on folic acid 1 mg p.o. daily and vitamin B12 1000 mcg p.o. daily. 3. There was a spherocytes. Will ask for direct Alexander. If it is positive we will start this patient on dexamethasone 4. Peripheral pictures consistent with dimorphic picture was 2 could be due to transfusion. 5. No need for blood product transfusion. 6. This picture does not fit with heparin-induced thrombocytopenia. We will ask for HIT antibody to be done. This could be drug-induced especially Zosyn in this case. 7. Will ask for CBT week to tomorrow. There is continued to be low platelet below the number today. I will do platelet transfusion for diagnostic and therapeutic. Laboratory Tests Test 10/05/24 17:50 10/05/24 20:57 10/06/24 03:55 10/06/24 09:06 Hemoglobin 7.8 g/dL (14.0-18.0) L 7.3 g/dL (14.0-18.0) L Hematocrit 23.9 % (42-54) L 22.8 % (42-54) L Whole Blood Glucose 171 MG/DL (70-110) H White Blood Count 6.1 K/uL (4.8-10.8) # Red Blood Count 2.60 MIL/uL (4.50-6.20) L Mean Corpuscular Volume 87.7 fL (79-99) Mean Corpuscular Hemoglobin 28.1 pg (27.0-33.0) Mean Corpuscular Hemoglobin Concent 32.0 g/dL (32.0-36.0) Red Cell Distribution Width 16.4 % (11.0-15.5) H Platelet Count 39 K/uL (130-400) #L Mean Platelet Volume 11.9 fL (7.5-10.5) H Immature Granulocyte % (Auto) 0.6 % (0-1) Neutrophils (%) (Auto) 76.3 % (40.0-77.0) Lymphocytes (%) (Auto) 8.3 % (21.0-51.0) L Monocytes (%) (Auto) 7.9 % (3.0-13.0) Eosinophils (%) (Auto) 6.4 % (0.0-8.0) Basophils (%) (Auto) 0.5 % (0.0-5.0) Neutrophils # (Auto) 4.8 K/uL (1.8-7.7) Lymphocytes # (Auto) 0.5 K/uL (1.0-4.8) L Monocytes # (Auto) 0.5 K/uL (0.1-1.0) Eosinophils # (Auto) 0.40 K/uL (0.00-0.70) Basophils # (Auto) 0.03 K/uL (0.00-0.20) Absolute Immature Granulocyte (auto 0.04 K/uL (0-1) Nucleated Red Blood Cells 0.0 % (0.0-0.19) White Cell Morphology Comment See comments Sodium Level 140 mmol/L (136-145) Potassium Level 4.7 mmol/L (3.5-5.1) Chloride Level 100 mmol/L (101-111) L Carbon Dioxide Level 30 mmol/L (21-32) Blood Urea Nitrogen 45 mg/dL (7-18) H Creatinine 7.0 mg/dL (0.5-1.3) H Glomerular Filtration Rate Calc 9 mL/min (>90) Random Glucose 229 mg/dL (70-105) #H Total Calcium 7.7 mg/dL (8.5-10.1) L Blood Gas Specimen Type Arterial Arterial Blood pH 7.368 (7.350-7.450) Arterial Blood Partial Pressure CO2 46 mmHg (35-48) Arterial Blood Partial Pressure O2 73.0 mmHg (83.0-108.0) L Arterial Blood HCO3 25.8 mmol/L (21.0-28.0) Arterial Blood Oxygen Saturation 93.1 % (94.0-98.0) L Arterial Blood Base Excess 0.3 mmol/L (-2.0-3.0) Hemoglobin (Blood Gas) 8.5 g/dL (13.5-17.5) L Sodium (Blood Gas) 134 MMOL/L (136-145) L Bedside Potassium (Blood Gas) 4.8 MMOL/L (3.4-4.5) H Bedside Chloride (Blood Gas) 95 MMOL/L (98-107) L Bedside Glucose (Blood Gas) 225 MG/DL (65-95) H Bedside Ionized Calcium (Blood Gas) 1.01 MMOL/L (1.15-1.33) L Bedside Lactic Acid (Blood Gas) 0.72 MMOL/L (0.36-0.75) Blood Gas Temperature 37.0 CELSIUS (35.5-37.0) Blood Gas Flow-by 2.00 L/min (0.00-15.00) Blood Gas Vent Mode NC (ROOM AIR) FiO2 28.0 % Blood Gas Specimen Comment DIONICIO HUMPHREY RN Test 10/06/24 09:24 10/06/24 10:46 10/06/24 16:27 Hemoglobin 7.7 g/dL (14.0-18.0) L Hematocrit 23.5 % (42-54) L Prothrombin Time 11.5 SEC (9.6-11.6) Prothromb Time International Ratio 1.03 (0.85-1.15) Activated Partial Thromboplast Time 33.4 SEC (26.3-35.5) Fibrinogen 622 mg/dL (180-350) *H D-Dimer Quantitative (PE/DVT) 475 ng/mL (0-500) Whole Blood Glucose 270 MG/DL (70-110) #H 223 MG/DL (70-110) H BROOKLYN HUSSEIN MD Oct 06, 2024 16:58
--- NOTE | 2024-10-06 18:26 | NUR ---
CM NOTE CM f/u with patient and spouse regarding d/c planning. CM offered short term SNF/rehab as possible d/c option. Patient and spouse declined. Spouse states she will be assisting in patient's care. Reports she will be driving patient to HD treatments. CM provided HD schedule at [facility] @ 1120. No needs verbalized. Plan for now is to return home with spouse. Addendum: 10/06/24 at 1829 by MELIDA ORTEGA Amended: Links added.
[2024-10-06 21:11] LABS: HEMATOCRIT 22.7 % (42-54)
--- NOTE | 2024-10-06 22:56 | PN ---
[facility] PROGRESS NOTE Date of Service: Oct 06, 2024 Time of Service: 22:54 SUBJECTIVE: This is a 49-year-old male with past medical history of CKD not on hemodialysis, diabetes, hypertension, hyperlipidemia and obesity who presents to the ED for complaints of cough and chest congestion which started last Sunday and getting worse on Sunday. Patient reports coughing up pinkish colored thick phlegm, loss of appetite and on Sunday started not eating unable to sleep, vomiting and having chest pain triggered by persistent coughing he said.Patient reports having soreness due to hard cough he said.Patient reports having sweeling on both lower extremities and started having shortness of breath and today he started having non bloody diarrhea. Neela was at bedside during my evaluation. Upon arrival to ER a STEMI alert was activated per ER MD and spoke to Cellular Equipment Repairer senior professional services consultant and as per report patient is possibly going to cathlab tomorrow and patient is going to be started on Heparin and Insulin drip. Seen and examined patient in the Er awake,alert and coherent,appears weak looking.Patient denies fever,palpitation ,dizziness ,sore throat and headache. Latest vital signs temperature 98.1, heart rate 108, respiration 30 blood pressure 130/68 saturation 91% on 4 L nasal cannula. Labs: WBC 11.2, hemoglobin 9, hematocrit 27, platelet count 238, neutrophils 88. PH 7.32, CO2 26, PO2 49.6, bicarb 13, PO2 80 base excess -11.3. Sodium 129, potassium 5.9, chloride 93, CO2 19, BUN 88, creatinine 8.2, GFR seven glucose 876 , lactic acid 3.0-3.2, troponin 5531 albumin 2.1. Influenza A positive influenza B negative SARs COVID negative. Strep A negative. Chest x-ray result revealed extensive bilateral mid to lower lung pneumonia right greater than left. First ECG result revealed sinus tachycardia heart rate 121 probable left atrial enlargement repolarization abnormal suggest ischemia diffuse leads ST-elevation consider anterior injury. Second EKG result revealed sinus tachycardia repolarization abnormality suggest ischemia diffuse leads borderline ST elevation anterior leads heart rate 108. While in the ER patient received Tamiflu 75 mg p.o., 1 L NS bolus, Lopressor 5 mg IV, insulin 10 units IV, Zosyn IV, Zofran 4 mg IV and Phenergan codeine 10 mL p.o. we will admit patient in ICU for further medical management. 10/02/24 Patient was seen and examined at bedside. He is alert, awake and oriented. No acute events overnight. He denies chest pain or abdominal pain or palpitations or dizziness or shortness of breath. Dr. Szymanski was consulted for CABG, he will be scheduled for it later this week or next week. Dr. Perry was consulted because of constant hyperglycemia, changed his lantus to 30 and lispro 10U TID , will follow up on the glucose levels next 24 hours.As per his , Lantus never worked for him, will try 70/30 if it is not under control. Remarkable labs are sodium 135, Chloride 97, BUN 85, Creatinine 9.1, glucose 454, corrected calcium 7.4, phosphorous 6.5, his liver function is improving. 10/03/24 Patient was seen and examined at bedside. He is alert, awake and oriented. No acute events overnight. He denies chest pain or abdominal pain or palpitations or dizziness or shortness of breath. He will be taken to surgery this afternoon for CABG by . His blood glucose is improving. We will labs or hemoglobin 9.1, chloride 99, BUN 67, creatinine 8.4, HbA1c 12.0, total calcium improving from 7.4-7.6, BNP 2810, ALT improving from 897 to 638, LDL 134, [place] [address] [place] [address]. Chest x-ray showed clear lungs with right Permcath at the tip of distal superior vena cava level. 10/04/24 patient was seen and examined. Case discussed with the RN. He is doing well he was successfully underwent CABG. He denies any chest pain or shortness for breath, 10/05/24 Patient was seen and examined at bedside. Today his vitals are blood pressure 142/75, pulse rate 95, respiratory rate 16. Currently on low-dose epinephrine drip. His chest tube drained 980 mL in the last 24 hours and 1.2 L was ultrafiltered during his hemodialysis session yesterday. Remarkable labs her hemoglobin 6.6, hematocrit 20.4, platelets 32409, sodium 148, potassium 5.2, BUN 55, creatinine 7.9 phosphorus 8.0. Lactic acid came down 3.25 to 1.3. He was transfused 1 unit of RBC in the morning. [place] [address] to 9100, no temperatures in the last 24 hours. He denies chest pain or shortness of breath or palpitations or dizziness. He has a hemodialysis session today. Chest x-ray today showed mild bilateral perihilar atelectasis and suspect raise left pleural fluid with subjacent, subsegmental atelectasis, but no evidence for pneumothorax. 10/06/24 Patient was seen and examined at bedside. His blood pressure is holding up, has been weaned off pressors. Currently on 2L nasal cannula, encouraging him to use incentive spirometer. Dr. Cesar recommended hematology consult as his platelets have been dropping, currently 39k. He is not on heparin drip or any heparin c oated catheters. He received one unit of packed rbc as his hemoglobin was 6.8 , improved to 8.1. remarkable labs are bicarb 30, BUN 45, creatinine 7 with a GFR 9. He is up from his bed to his chair, he looks weak but is doing better. REVIEW OF SYSTEMS CONSTITUTIONAL: Denies fevers, chills, or night sweats. No unintentional weight loss reported. NEUROLOGICAL: Denies headache, amaurosis fugax, motor weakness, sensory deficit, vertigo/spinning sensation, gait abnormalities, or tremors. ENT: No hearing loss, otalgia, otorrhea, rhinitis, rhinorrhea, hoarseness, or sore throat. CARDIOVASCULAR: Denies orthopnea shortness of breaths and chest pain Denies paroxysmal nocturnal dyspnea, palpitations, life-threatening arrhythmias, claudication. PULMONARY: Denies productive cough , pleuritic chest pain and shortness of breaths SLEEP: Complains of unable to sleep Denies morning headaches, daytime somnolence or napping. Denies waking from sleep. Denies knowledge of snoring. GASTROINTESTINAL: Denies loss of appetite, vomiting and diarrhea Denies any type of dysphagia to either liquids or solids. Denies nausea, vomiting, pyrosis, early satiety, abdominal pain, diarrhea, constipation, or changes in stool consistency or caliber. Denies coffee-ground emesis, hematemesis, hem atochezia, or melanotic stools. GENITOURINARY: Denies frequency, urgency, nocturia, hematuria or incontinence (Storage/Irritative symptoms.) Low urinary stream, straining to void, urinary intermittency or hesitancy, splitting of the voiding stream, terminal dribbling. ENDOCRINOLOGIC: Denies polyuria, polydipsia, polyphagia or heat/cold intolerances. Patient reports not taking medications for diabetes because he was not eating. HEMATOLOGIC: Denies thrombophilia/previous clots, or coagulopathy/bleeding disorders. ONCOLOGIC: Denies personal history of malignancy. DERMATOLOGIC: Denies rashes or pruritus. PSYCHIATRIC: Denies any suicidal or homicidal ideation. Denies hallucinations. PHYSICAL EXAM GENERAL APPEARANCE: The patient is awake, alert, and oriented appears generally weak NEUROLOGICAL: Cranial nerves II-XII grossly intact. Motor is 5/5 in bilateral upper and lower extremities proximal to distal. No sensory deficits. HEENT: Face is symmetric. Pupils are equal and reactive. Extraocular movements are intact. NECK: Supple. No JVD. No thyromegaly. No submental, submandibular, pre- /postauricular, occipital or supraclavicular lymphadenopathy. CHEST: Normal chest expansion. No Telemetry. LUNGS: . Diminished lung sounds to bilateral lung james CARDIOVASCULAR: Regular. S1 and S2 normal. No appreciable rubs, murmurs or gallops. ABDOMEN: Round and firmed There is no rebound, voluntary guarding, or rigidity. : Deferred. No Del Cid. EXTREMITIES: Bilateral lower extremity edema No clubbing. Good capillary refill. SKIN: No skin breakdown. Vital Signs (last 8hr) Date Time Temp Pulse Resp B/P (MAP) Pulse Ox O2 Delivery O2 Flow Rate FiO2 10/06/24 20:00 99 Nasal Cannula* 2 28 10/06/24 19:56 19 N/Cannula Low lpm 2.0 28 10/06/24 19:23 98.6 92 18 109/66 99 Room Air 10/06/24 16:48 98.6 88 18 102/61 98 Nasal Cannula 2.0 LABS: Laboratory: Test 10/06/24 20:59 10/06/24 20:01 10/06/24 09:24 10/06/24 09:06 Range/Units Hemoglobin 7.5 L 14.0-18.0 g/dL Hematocrit 22.7 L 42-54 % Whole Blood Glucose 141 H 70-110 MG/DL Prothrombin Time 11.5 9.6-11.6 SEC Prothromb Time International Ratio 1.03 0.85-1.15 Activated Partial Thromboplast Time 33.4 26.3-35.5 SEC Fibrinogen 622 *H 180-350 mg/dL D-Dimer Quantitative (PE/DVT) 475 0-500 ng/mL Blood Gas Specimen Type Arterial Arterial Blood pH 7.368 7.350-7.450 Arterial Blood Partial Pressure CO2 46 35-48 mmHg Arterial Blood Partial Pressure O2 73.0 L 83.0-108.0 mmHg Arterial Blood HCO3 25.8 21.0-28.0 mmol/L Arterial Blood Oxygen Saturation 93.1 L 94.0-98.0 % Arterial Blood Base Excess 0.3 -2.0-3.0 mmol/L Hemoglobin (Blood Gas) 8.5 L 13.5-17.5 g/dL Sodium (Blood Gas) 134 L 136-145 MMOL/L Bedside Potassium (Blood Gas) 4.8 H 3.4-4.5 MMOL/L Bedside Chloride (Blood Gas) 95 L 98-107 MMOL/L Bedside Glucose (Blood Gas) 225 H 65-95 MG/DL Bedside Ionized Calcium (Blood Gas) 1.01 L 1.15-1.33 MMOL/L Bedside Lactic Acid (Blood Gas) 0.72 0.36-0.75 MMOL/L Blood Gas Temperature 37.0 35.5-37.0 CELSIUS Blood Gas Flow-by 2.00 0.00-15.00 L/min Blood Gas Vent Mode NC ROOM AIR FiO2 28.0 % Blood Gas Specimen Comment DIONICIO HUMPHREY,RN Test 10/06/24 03:55 10/05/24 05:39 Range/Units White Blood Count 6.1 # 4.8-10.8 K/uL Red Blood Count 2.60 L 4.50-6.20 MIL/uL Mean Corpuscular Volume 87.7 79-99 fL Mean Corpuscular Hemoglobin 28.1 27.0-33.0 pg Mean Corpuscular Hemoglobin Concent 32.0 32.0-36.0 g/dL Red Cell Distribution Width 16.4 H 11.0-15.5 % Platelet Count 39 #L 130-400 K/uL Mean Platelet Volume 11.9 H 7.5-10.5 fL Immature Granulocyte % (Auto) 0.6 0-1 % Neutrophils (%) (Auto) 76.3 40.0-77.0 % Lymphocytes (%) (Auto) 8.3 L 21.0-51.0 % Monocytes (%) (Auto) 7.9 3.0-13.0 % Eosinophils (%) (Auto) 6.4 0.0-8.0 % Basophils (%) (Auto) 0.5 0.0-5.0 % Neutrophils # (Auto) 4.8 1.8-7.7 K/uL Lymphocytes # (Auto) 0.5 L 1.0-4.8 K/uL Monocytes # (Auto) 0.5 0.1-1.0 K/uL Eosinophils # (Auto) 0.40 0.00-0.70 K/uL Basophils # (Auto) 0.03 0.00-0.20 K/uL Absolute Immature Granulocyte (auto 0.04 0-1 K/uL Nucleated Red Blood Cells 0.0 0.0-0.19 % White Cell Morphology Comment See comments Sodium Level 140 136-145 mmol/L Potassium Level 4.7 3.5-5.1 mmol/L Chloride Level 100 L 101-111 mmol/L Carbon Dioxide Level 30 21-32 mmol/L Blood Urea Nitrogen 45 H 7-18 mg/dL Creatinine 7.0 H 0.5-1.3 mg/dL Glomerular Filtration Rate Calc 9 >90 mL/min Random Glucose 229 #H 70-105 mg/dL Total Calcium 7.7 L 8.5-10.1 mg/dL Platelet Morphology Comment See comments Phosphorus Level 8.0 H 2.5-4.9 mg/dL Magnesium Level 2.00 1.80-2.40 mg/dL Total Bilirubin 0.3 0.2-1.0 mg/dL Aspartate Amino Transf (AST/SGOT) 53 H 10-37 U/L Alanine Aminotransferase (ALT/SGPT) 63 12-78 U/L Alkaline Phosphatase 72 50-136 U/L Total Protein 5.1 L 6.0-8.3 g/dL Albumin 2.5 L 3.5-5.0 g/dL Current Medications Medications (Trade) Dose Ordered Sig/Sierra Route PRN Reason Start Time Stop Time Status Last Admin Dose Admin Acetaminophen (TYLenol 325MG TAB) 650 mg Q4H PRN PO MILD PAIN (1-3) 09/21/24 19:30 10/03/24 12:53 DC 09/30/24 01:32 650 MG Acetaminophen (TYLenol 325MG TAB) 650 mg Q4H PRN PO Temp >38.3C(AFTER EXTUBATION) 10/03/24 13:00 11/02/24 12:59 Acetaminophen (TYLenol 325MG TAB) 650 mg Q6H PRN PO TEMPERATURE GREATER THAN 101.5 09/21/24 19:30 10/03/24 12:53 DC Acetaminophen (TYLenol 325MG TAB) 650 mg Q6H PRN PO MILD PAIN (1-3) 10/03/24 13:00 11/02/24 12:59 10/04/24 08:59 650 MG Acetaminophen (TYLenol 650MG SUPPOSITORY) 650 mg Q4H PRN RC Temp >38.3C WHILE INTUBATED 10/03/24 13:00 11/02/24 12:59 Acetaminophen (acetaMINOPHEN) 1,000 mg Q6H6 IV 10/03/24 18:00 10/04/24 17:59 DC 10/04/24 11:18 1,000 MG Albumin Human 100 ml @ 0 mls/hr AD STAT IV 09/25/24 23:09 09/25/24 23:12 DC 09/25/24 23:17 100 MLS/HR Albumin Human 250 ml @ 0 mls/hr AD PRN IV IF HEMODYNAMICALLY UNSTABLE 10/03/24 13:00 10/03/24 17:24 DC 10/03/24 17:23 250 MLS/HR Albumin Human (Albumin (Human) 25%) 100 ml ONCE IV 10/05/24 16:00 10/06/24 15:59 DC 10/05/24 16:18 100 ML Albuterol (DUOneb) 1 udvial [id number] IH 09/21/24 22:00 09/25/24 09:59 DC 09/25/24 06:43 1 UDVIAL Albuterol (DUOneb) 1 udvial [id number] IH 09/25/24 10:00 09/26/24 15:22 DC 09/26/24 11:17 1 UDVIAL Albuterol (DUOneb) 1 udvial [id number] PRN IH WHEEZING 09/26/24 15:30 10/21/24 21:59 Aminocaproic Acid 71758 mg/Sodium Chloride 310 ml @ 25 mls/hr AD IV 10/03/24 13:00 10/03/24 13:03 DC Aminocaproic Acid 23587 mg/Sodium Chloride 480 ml @ 0 mls/hr AD PRN IV BLEEDING CONTROL 10/03/24 10:00 11/02/24 09:59 Aspirin (Aspirin 81mg Ec Tab) 81 mg DAILY PO 09/22/24 09:00 10/22/24 08:59 10/06/24 09:12 81 MG Atorvastatin Calcium (LIPItor 20MG) 20 mg HS PO 09/23/24 21:00 09/27/24 10:38 DC 09/26/24 20:36 20 MG Atorvastatin Calcium (LIPItor 40MG) 40 mg HS PO 09/22/24 21:00 09/22/24 20:17 DC Atorvastatin Calcium (LIPItor 40MG) 40 mg HS PO 09/30/24 21:00 10/30/24 20:59 10/06/24 19:50 40 MG Atorvastatin Calcium (LIPItor 40MG) 40 mg HS PO 10/03/24 21:00 10/03/24 12:58 DC Azithromycin 250 ml @ 250 mls/hr Q24H IVPB 09/21/24 18:00 09/21/24 18:14 DC Calcium Carbonate (Oyster Shell Ca 500mg Tab) 1,000 mg TID PO 09/30/24 14:00 10/30/24 13:59 10/06/24 19:50 1,000 MG Calcium Gluconate 1 gm/Sodium Chloride 60 ml @ 200 mls/hr AD PRN IV HYPOCALCEMIA 10/03/24 13:00 11/02/24 12:59 10/05/24 11:32 200 MLS/HR Calcium Gluconate 1 gm/Sodium Chloride 100 ml @ 0 mls/hr PROTOCOL IV 10/01/24 17:00 10/03/24 12:53 DC Cefazolin Sodium (Ancef) 2 gm ONCALL IVPB 10/02/24 10:30 10/03/24 13:09 DC Cefazolin Sodium (Ancef) 2 gm Q8H IVPB 10/03/24 18:00 10/04/24 10:01 DC 10/04/24 09:46 2 GM Cefepime HCl (MAXipime 1 GM vial) 1 gm Q24H IVPB 09/23/24 08:30 09/26/24 11:14 DC 09/25/24 08:36 1 GM Chlordiazepoxide HCl (LIBrium 25 MG CAP) 25 mg Q2H PRN PO ALCOHOL WITHDRAWAL PROTOCOL 09/22/24 20:30 09/29/24 20:29 DC 09/28/24 23:59 25 MG Chlordiazepoxide HCl (LIBrium 25 MG CAP) 50 mg Q1H PRN PO ALCOHOL WITHDRAWAL PROTOCOL 09/22/24 20:30 09/29/24 20:29 DC Clopidogrel Bisulfate (plaVIX 75MG) 75 mg DAILY PO 09/24/24 09:00 09/26/24 07:14 DC 09/25/24 08:38 75 MG Clopidogrel Bisulfate (plaVIX 75MG) 75 mg DAILY PO 09/30/24 09:00 10/01/24 08:26 DC 09/30/24 08:49 75 MG Dexmedetomidine/ Sodium Chloride (PRECEdex 400MCG/ 100ML-NS) 400 mcg PROTOCOL IV 10/03/24 13:00 10/04/24 12:59 DC Dextrose (D50w) 50 ml AD PRN IV HYPOGLYCEMIA PROTOCOL 09/30/24 17:30 10/01/24 08:25 DC Dextrose (D50w) 50 ml AD PRN IV HYPOGLYCEMIA PROTOCOL 10/01/24 08:30 10/31/24 08:29 10/05/24 05:14 50 ML Dextrose (D50w) 50 ml AD PRN IV HYPOGLYCEMIA PROTOCOL 10/03/24 13:00 10/03/24 13:04 DC Dextrose/Sodium Chloride 1,000 ml @ 0 mls/hr AD IV 09/22/24 00:00 09/23/24 21:23 DC 09/22/24 09:49 150 MLS/HR Docusate Sodium (COLace 100MG CAP) 100 mg BID PO 10/03/24 21:00 11/02/24 20:59 10/06/24 19:50 100 MG Doxycycline Hyclate (Doxycycline Hyclate) 100 mg BID PO 09/21/24 21:00 09/30/24 23:59 DC 09/30/24 20:53 100 MG Epinephrine HCl 10 mg/Sodium Chloride 250 ml @ 0 mls/hr AD PRN IV TITRATE 10/03/24 10:00 11/02/24 09:59 10/04/24 06:35 7.4 MLS/HR Epinephrine HCl 10 mg/Sodium Chloride 250 ml @ 0 mls/hr AD PRN IV POST-OP CARDIOVASCULAR ORDERS 10/03/24 13:00 10/03/24 13:03 DC Epoetin Mosse-epbx (Retacrit) 10,000 unit QMOWEFR SQ 10/01/24 09:00 10/06/24 15:12 DC 10/01/24 15:34 10,000 UNIT Epoetin Moses-epbx (Retacrit) 10,000 unit QTUTHSA SQ 10/07/24 09:00 10/31/24 08:59 Famotidine (Pepcid 20mg Vial) 10 mg DAILY IV 09/22/24 09:00 09/27/24 10:35 DC 09/27/24 09:09 10 MG Famotidine (Pepcid 20mg Vial) 20 mg Q48H IV 10/03/24 21:00 11/02/24 20:59 10/05/24 21:04 20 MG Famotidine (Pepcid 20mg Tab) 10 mg Q48H PO 09/21/24 19:30 09/21/24 20:00 DC Ferrous Sulfate (Ferrous Sulfate) 325 mg DAILY PO 09/23/24 09:00 10/23/24 08:59 10/06/24 09:12 325 MG Fish Oil (Fish Oil 1000 Mg/Cap) 2,000 mg BID PO 09/22/24 21:00 10/03/24 12:53 DC 10/02/24 20:38 2,000 MG Fluconazole/ Sodium Chloride (DiFLUCan 200 MG/ NS 100 ML) 200 mg Q24H IV 09/25/24 16:00 09/27/24 10:36 DC 09/26/24 14:38 200 MG Furosemide (LASix 40MG VIAL) 80 mg Q12H IV 09/22/24 21:00 09/26/24 15:22 DC 09/26/24 13:20 80 MG Gabapentin (NEURontin 100 mg CAP) 100 mg DAILY PO 10/01/24 09:00 10/24/24 20:59 10/06/24 09:12 100 MG Gabapentin (NEURontin 100 mg CAP) 100 mg TID PO 09/24/24 21:00 09/30/24 17:37 DC 09/30/24 14:07 100 MG Glucagon (Glucagon 1mg Kit) 1 mg AD PRN IM HYPOGLYCEMIA PROTOCOL 2/4/25 17:30 10/01/24 08:25 DC Glucagon (Glucagon 1mg Kit) 1 mg AD PRN IM HYPOGLYCEMIA PROTOCOL 10/01/24 08:30 10/31/24 08:29 Glucagon (Glucagon 1mg Kit) 1 mg AD PRN IM HYPOGLYCEMIA PROTOCOL 10/03/24 13:00 10/03/24 13:04 DC Guaifenesin/ Dextromethorphan (RobiTUSSin DM 200/20MG 10ML) 10 ml Q4H PRN PO COUGH 09/21/24 19:30 10/03/24 12:53 DC 09/23/24 22:06 10 ML Guaifenesin/ Dextromethorphan (RobiTUSSin DM 200/20MG 10ML) 15 ml Q4H PRN PO COUGH 10/06/24 01:30 11/05/24 01:29 10/06/24 01:35 15 ML Heparin Sodium (Porcine) (HEParin 5,000 UNIT VIAL) *calculation based on ACTUAL B... AD PRN IV HEPARIN PROTOCOL 09/21/24 19:30 09/26/24 07:14 DC Heparin Sodium (Porcine) (HEParin 5,000 UNIT VIAL) 10,000 unit AD IRRIG 09/27/24 14:00 10/27/24 13:59 10/01/24 17:18 10,000 UNIT Heparin Sodium/ Dextrose 250 ml @ 0 mls/hr Q6H IV 09/21/24 19:30 09/26/24 18:36 DC 09/25/24 04:13 14.7 MLS/HR Hydralazine HCl (APRESOLine 20MG INJ) 10 mg Q6H PRN IV ADMINISTER FOR SBP > 160 10/01/24 16:30 10/03/24 12:53 DC Insulin Glargine (LANtus 100 UNITS/ML 10 ML VIAL) 10 units BID@0730,2100 SQ 09/22/24 21:00 09/26/24 11:15 DC 09/25/24 20:44 10 UNITS Insulin Glargine (LANtus 100 UNITS/ML 10 ML VIAL) 10 units HS SQ 09/30/24 21:00 09/30/24 17:26 DC Insulin Glargine (LANtus 100 UNITS/ML 10 ML VIAL) 15 units BID@0730,2100 SQ 09/26/24 21:00 09/30/24 17:13 DC 09/30/24 07:03 15 UNITS Insulin Glargine (LANtus 100 UNITS/ML 10 ML VIAL) 20 units AM SQ 10/01/24 09:00 09/30/24 17:26 DC Insulin Glargine (LANtus 100 UNITS/ML 10 ML VIAL) 20 units DAILY SQ 10/06/24 09:00 11/05/24 08:59 10/06/24 09:16 20 UNITS Insulin Glargine (LANtus 100 UNITS/ML 10 ML VIAL) 30 units HS SQ 09/30/24 21:00 10/02/24 07:19 DC 10/01/24 19:54 30 UNITS Insulin Glargine (LANtus 100 UNITS/ML 10 ML VIAL) 50 units BID SQ 10/02/24 21:00 10/03/24 12:53 DC 10/03/24 09:02 50 UNITS Insulin Glargine (LANtus 100 UNITS/ML 10 ML VIAL) 50 units DAILY SQ 10/02/24 07:30 10/02/24 16:53 DC 10/02/24 09:41 50 UNITS Insulin Human Lispro (HumaLOG LISpro 100 UNIT/ML 3ML) 7 unit TIDAC SQ 10/01/24 07:30 10/01/24 17:01 DC 10/01/24 16:22 7 UNIT Insulin Human Lispro (HumaLOG LISpro 100 UNIT/ML 3ML) 10 unit TIDAC SQ 10/01/24 17:00 10/01/24 19:41 DC Insulin Human Lispro (HumaLOG LISpro 100 UNIT/ML 3ML) 15 unit TIDAC SQ 10/02/24 07:30 10/02/24 07:20 DC 10/02/24 07:01 15 UNIT Insulin Human Lispro (HumaLOG LISpro 100 UNIT/ML 3ML) 20 unit TIDAC SQ 10/02/24 11:30 10/02/24 16:53 DC 10/02/24 11:48 20 UNIT Insulin Human Lispro (HumaLOG LISpro 100 UNIT/ML 3ML) 25 unit TIDAC SQ 10/02/24 17:00 10/03/24 12:53 DC 10/02/24 17:17 25 UNIT Insulin Human Regular (humuLIN R 100 UNIT/ML 3ML) 5 unit TIDAC SQ 10/06/24 07:30 10/06/24 19:15 DC 10/06/24 17:10 5 UNIT Insulin Human Regular (humuLIN R 100 UNIT/ML 3ML) 10 unit TIDAC SQ 10/07/24 07:30 11/06/24 07:29 Insulin Human Regular (humuLIN R 100 UNIT/ML 3ML) INSULIN SLIDING SCAL... ACHS SQ 09/24/24 07:30 10/03/24 12:53 DC 10/03/24 05:48 10 UNIT Insulin Human Regular (humuLIN R 100 UNIT/ML 3ML) INSULIN SLIDING SCAL... ACHS SQ 10/06/24 07:30 11/05/24 07:29 10/06/24 17:09 4 UNIT Insulin Human Regular (humuLIN R 100 UNIT/ML 3ML) INSULIN SLIDING SCAL... ACHS SQ 10/05/24 16:30 10/06/24 06:12 DC Insulin Human Regular 100 unit/ Sodium Chloride 100 ml @ 0 mls/hr AD IV 10/03/24 13:00 10/05/24 12:59 DC 10/03/24 17:38 2 MLS/HR Insulin Human Regular 100 unit/ Sodium Chloride 101 ml @ 0 mls/hr PROTOCOL IV 09/21/24 20:00 09/23/24 21:20 DC 09/21/24 21:01 9.8 MLS/HR Insulin Human Regular 100 unit/ Sodium Chloride 101 ml @ 0 mls/hr PROTOCOL IV 09/22/24 00:00 09/22/24 00:03 DC Insulin Human Regular 100 unit/ Sodium Chloride 101 ml @ 0 mls/hr PROTOCOL IV 09/26/24 18:30 09/27/24 10:25 DC 09/26/24 18:36 10 MLS/HR Lactulose (Constulose 20gm/ 30ml Udcup) 20 gm BID PRN PO CONSTIPATION 10/03/24 13:00 11/02/24 12:59 Magnesium Hydroxide (Milk Of Magnesium 30ml) 30 ml DAILY PRN PO CONSTIPATION 10/03/24 13:00 11/02/24 12:59 Magnesium Sulfate 50 ml @ 12.5 mls/hr AD PRN IV MAG LEVEL LESS THAN 2.0 10/03/24 13:00 11/02/24 12:59 10/03/24 17:21 12.5 MLS/HR Magnesium Sulfate 50 ml @ 0 mls/hr PROTOCOL IV 09/22/24 00:00 09/23/24 21:23 DC Magnesium Sulfate 50 ml @ 0 mls/hr PROTOCOL IV 09/26/24 18:30 09/27/24 10:25 DC Magnesium Sulfate 50 ml @ 0 mls/hr PROTOCOL PRN IV OTH 09/22/24 00:00 09/22/24 00:04 DC 09/21/24 23:52 25 MLS/HR Mannitol 245 ml @ 0 mls/hr AD IV 09/22/24 00:30 09/22/24 20:17 DC Mannitol 500 ml @ 0 mls/hr AD IV 09/22/24 00:30 09/22/24 14:33 DC Mannitol (Osmitrol 20% 250ml Bag) 49 gm AD IV 09/22/24 00:00 09/22/24 00:28 DC Methylprednisolone Sodium Succinate (Solu-medROL 40MG) 40 mg BID IVP 09/22/24 09:00 09/27/24 10:35 DC 09/26/24 20:37 40 MG Metoprolol Succinate (TopROL XL) 25 mg BID PO 09/26/24 09:00 10/03/24 12:53 DC 10/03/24 08:55 25 MG Metoprolol Succinate (TopROL XL) 50 mg BID PO 09/24/24 21:00 09/26/24 07:14 DC 09/24/24 19:45 50 MG Metoprolol Tartrate (loprESSOR) 12.5 mg BID PO 09/22/24 21:00 09/24/24 16:38 DC 09/24/24 12:07 12.5 MG Metoprolol Tartrate (loprESSOR) 12.5 mg BID PO 10/06/24 09:00 11/05/24 08:59 10/06/24 19:50 12.5 MG Miscellaneous Medication (Folic Acid/ Vitamin B Comp W-C ([place] Tablet)) 1 tab DAILY PO 09/23/24 09:00 09/22/24 15:56 DC Morphine Sulfate (morPHINE 2MG SYG) 0.5 mg Q2H PRN IV MODERATE PAIN (4-6) 10/03/24 13:00 10/04/24 10:49 DC 10/03/24 20:56 0.5 MG Morphine Sulfate (morPHINE 2MG SYG) 1 mg Q2H PRN IV SEVERE PAIN (7-10) 10/03/24 13:00 10/04/24 10:49 DC Morphine Sulfate (morPHINE 2MG SYG) 2 mg Q4H PRN IVP SEVERE PAIN (7-10) 09/26/24 01:30 10/01/24 04:29 DC Multivitamins Therapeutic (Multivitamin Tablet) 1 tab DAILY PO 09/23/24 09:00 10/23/24 08:59 10/06/24 09:12 1 TAB Nifedipine (adALAT 30MG) 60 mg DAILY PO 09/23/24 09:00 09/28/24 12:01 DC 09/25/24 08:37 60 MG Nitroglycerin (Nitroglycerin 1gm Oint) 0.5 inch Q8H TD 09/21/24 19:30 09/27/24 10:34 DC 09/25/24 12:44 0.5 INCH Nitroglycerin/ Dextrose 0 ml @ 0 mls/hr AD IV 10/03/24 13:00 10/06/24 12:59 DC Norepinephrine 250 ml @ 0 mls/hr AD PRN IV DIRECTED 09/26/24 01:30 09/27/24 10:34 DC 09/26/24 01:40 0 MLS/HR Norepinephrine Bitartrate 250 ml @ 0 mls/hr AD PRN IV TITRATE 10/03/24 10:00 11/02/24 09:59 Norepinephrine Bitartrate 8 mg/ Dextrose 250 ml @ 0 mls/hr AD PRN IV POST-OP CARDIOVASCULAR ORDERS 10/03/24 13:00 10/03/24 13:03 DC Ondansetron HCl (zoFRAN 4MG INJ) 4 mg Q6H PRN IV NAUSEA/VOMITING 10/03/24 13:00 11/02/24 12:59 10/04/24 16:35 4 MG Ondansetron HCl (zoFRAN 4MG INJ) 4 mg Q6H PRN IVP NAUSEA/VOMITING 09/26/24 01:30 10/03/24 12:53 DC 09/27/24 08:51 4 MG Oseltamivir Phosphate (Tamiflu) 75 mg DAILY PO 09/22/24 09:00 09/23/24 13:29 DC 09/23/24 08:38 75 MG Oseltamivir Phosphate (Tamiflu) 75 mg Q24H PO 09/26/24 17:00 09/27/24 17:01 DC 09/27/24 18:04 75 MG Oseltamivir Phosphate (Tamiflu) 75 mg QTUTHSA[DIALYSIS] PO 09/23/24 16:00 09/23/24 17:04 DC Oseltamivir Phosphate (Tamiflu) 75 mg QTUTHSA[DIALYSIS] PO 09/23/24 22:00 09/26/24 16:32 DC 09/25/24 16:09 75 MG Pantoprazole Sodium (PROTonix 40MG INJ) 40 mg BID IVP 09/27/24 21:00 10/03/24 12:53 DC 10/03/24 08:55 40 MG Pharmacy Profile Note (Pharmacy Communication) 1 each ONCE MISC 09/23/24 13:00 09/23/24 13:25 DC Pharmacy Profile Note (Pharmacy Communication) 1 each ONCE MISC 09/23/24 21:30 09/24/24 07:08 DC Pharmacy Profile Note (Pharmacy Communication) 1 each PROTOCOL PRN MISC ETOH Withdrawal Score changes 09/22/24 20:30 09/29/24 20:29 DC Piperacillin Sod/ Tazobactam Sod 50 ml @ 12.5 mls/hr Q12H IV 09/21/24 21:00 09/23/24 08:06 DC 09/22/24 20:43 12.5 MLS/HR Piperacillin Sod/ Tazobactam Sod (Zosyn 3.375gm+NS 50ml) 3.375 gm Q12H IV 09/26/24 11:30 10/06/24 08:29 DC 10/05/24 23:22 3.375 GM Potassium Chloride 20 meq/ Sodium Chloride 1,010 ml @ 0 mls/hr PROTOCOL IV 09/22/24 00:00 09/23/24 21:23 DC Potassium Chloride/Dextrose/ Sod Cl 1,000 ml @ 0 mls/hr AD IV 09/22/24 00:00 09/23/24 21:23 DC Potassium Phosphate 250 ml @ 42 mls/hr AD PRN IV LOW PHOS LEVEL 10/03/24 13:00 11/02/24 12:59 Potassium Chloride 100 ml @ 100 mls/hr AD PRN IV HYPOKALEMIA 10/03/24 13:00 11/02/24 12:59 Prednisone (deltaSONE/ oraSONE 20MG TAB) 20 mg DAILY PO 09/28/24 09:00 10/01/24 08:59 DC 09/30/24 08:50 20 MG Propofol 100 ml @ 0 mls/hr AD PRN IV SEDATION 10/03/24 13:00 10/07/24 12:59 Sodium Bicarbonate (Sodium Bicarbonate) 650 mg TID PO 09/24/24 09:00 09/27/24 10:34 DC 09/26/24 20:36 650 MG Sodium Bicarbonate (Sodium Bicarb 50meq 50ml Vial) 50 meq AD PRN IV OTHER[SEE DOSING INSTRUCTIONS] 10/03/24 13:00 10/06/24 12:59 DC 10/03/24 20:57 50 MEQ Sodium Chloride 250 ml @ 0 mls/hr Q0M IV 09/25/24 23:00 09/27/24 10:34 DC Sodium Chloride 500 ml @ 0 mls/hr AD IV 10/03/24 13:00 11/02/24 12:59 Sodium Chloride 1,000 ml @ 0 mls/hr ONCE IV 09/23/24 19:30 09/27/24 13:51 DC 09/26/24 12:15 1,000 MLS/HR Sodium Chloride 1,000 ml @ 0 mls/hr ONCE IV 09/27/24 14:30 09/27/24 13:51 DC Sodium Chloride 1,000 ml @ 0 mls/hr ONCE IV 09/27/24 15:00 10/27/24 14:59 10/05/24 15:18 500 MLS/HR Sodium Chloride 1,000 ml @ 10 mls/hr ONCE IV 10/03/24 13:00 10/04/24 12:59 DC Sodium Chloride 1,000 ml @ 100 mls/hr Q10H IV 09/21/24 19:30 09/27/24 10:34 DC 09/23/24 12:53 100 MLS/HR Sodium Chloride 1,000 ml @ 200 mls/hr PROTOCOL IV 09/22/24 00:00 09/23/24 21:23 DC Sodium Chloride (NS Flush 10ml) 10 ml Q8H PRN IVP IV LINE FLUSH 10/03/24 13:00 11/02/24 12:59 Thiamine HCl 100 mg/Folic Acid 1 mg/Multivitamins/ Minerals 10 ml/ Sodium Chloride 1,011.2 ml @ 100 mls/ hr Q24H IV 09/22/24 20:30 09/25/24 06:37 DC 09/22/24 20:43 100 MLS/HR Tramadol HCl (UltRAM) 25 mg Q6H PRN PO MODERATE PAIN (4-6) 10/03/24 13:00 10/08/24 12:59 Tramadol HCl (UltRAM) 50 mg Q6H PRN PO SEVERE PAIN (7-10) 10/03/24 13:00 10/08/24 12:59 10/06/24 01:17 50 MG Vancomycin HCl 250 ml @ 125 mls/hr Q72H IV 09/22/24 20:30 09/23/24 08:04 DC 09/22/24 20:48 125 MLS/HR Vancomycin HCl (Vancomycin 500mg+NS 100ml Ivpb) 1,000 mg DAILY08 IV 09/23/24 08:00 09/22/24 20:26 DC Vancomycin HCl (Vancomycin 750mg) 750 mg MWFPHD IVPB 09/26/24 16:00 10/03/24 23:29 DC Vancomycin HCl (Vancomycin 750mg) 750 mg Q24H IVPB 09/23/24 23:30 09/25/24 06:26 DC 09/24/24 22:43 750 MG Vasopressin 20 units/Sodium Chloride 100 ml @ 0 mls/hr PROTOCOL IV 10/03/24 19:30 11/02/24 19:29 10/04/24 06:34 9 MLS/HR Vitamin B Complex/ Vit C/Folic Acid (Nephrovite Tablet) 1 cap DAILY PO 09/23/24 09:00 10/23/24 08:59 10/06/24 09:12 1 CAP DIAGNOSTICS / RADIOLOGY: REASON: SOB ORDERING PHYSICIAN: CANDIDA SZYMANSKI MD PROCEDURE: CXR1VW - CHEST 1VW FRONTAL CHEST RADIOGRAPH INDICATION: SOB COMPARISON: 10/04/2024 FINDINGS/IMPRESSION: electronic device monitor leads overlie the field of view. Median sternotomy wires as well as fixation plates and screws are in appropriate alignment. Defibrillator patch has been removed. Stable Kermit-Saba catheter and pleural mediastinal drainage catheters. Stable heart size and residual mild central pulmonary vascular congestion. Mild bilateral perihilar atelectasis and suspect trace left pleural fluid with subjacent subsegmental atelectasis, but no evidence for pneumothorax. ASSESSMENT: Hyperosmolar Hyperglycemic Syndrome POA NSTEMI POA Influenza bronchopneumonia with sepsis POA Acute Hypoxemic Respiratory Failure POA Acute on chronic renal failure with concern for ATN POA Metabolic acidosis POA Lactic acidosis POA CKD stage 4 POA Uncontrolled Diabetes POA Protein Calorie malnutrition POA PLAN: POD [address] Szymanski Hemodialysis as per nephrology recommendations Iron profile and APR labs Continue broad-spectrum antibiotics Continue to trend WBC in Continue to replace electrolytes IV protocol Continue the patient on long-acting as well as insulin sliding scale Follow a.m. labs GI and DVT prophylaxis Disposition: Pending improvement in clinical condition ATTESTATION BY PHYSICIAN I have seen and examined the patient. I reviewed the documentation, medical decision making, and treatment plan as noted by the resident provider above. I agree with the findings and plan of care. Dieudonne Farley MD, NIHITHA MD Oct 06, 2024 22:56
[2024-10-07] VITALS (22 sets, daily range): BP systolic 111–152; BP diastolic 61–89; PULSE 85–130; RESP 16–22; TEMP 97.5–98.8; O2SAT 87–100
[2024-10-07 04:05] LABS: HEMATOCRIT 21.3 % (42-54); MEAN CORPUSCULAR HEMOGLOBIN 28.4 pg (27.0-33.0); MEAN CORPUSCULAR HGB CONC 33.3 g/dL (32.0-36.0); MEAN CORPUSCULAR VOLUME 85.2 fL (79-99); RED BLOOD CELL COUNT(AUTO) 2.5 MIL/uL (4.50-6.20); RED CELL DISTRIBUTION WIDTH 15.9 % (11.0-15.5); WHITE BLOOD COUNT (AUTO) 7.5 K/uL (4.8-10.8)
[2024-10-07 04:30] LABS: PHOSPHORUS 7.4 mg/dL (2.5-4.9); POTASSIUM 4.3 mmol/L (3.5-5.1)
--- NOTE | 2024-10-07 06:54 | PN ---
SUBJECTIVE: No complaints, status post CABG, coursing postoperative day #3. OBJECTIVE: GENERAL: Awake, alert, afebrile, neurologically intact. VITAL SIGNS: Stable as recorded in medical record. CHEST: Sternum stable. Incision sealed. LUNGS: Clear. EXTREMITIES: Warm and well perfused. No evidence of DVT, hematoma or infection. ASSESSMENT AND PLAN: Status post coronary artery bypass graft. * Anemia. The patient has low platelets and low blood count. Blood smear is ordered and as well Hematology consultation, Dr. Hinton is evaluating the patient. * DELFINO. The patient's platelet actually has rebounded and it will be unlikely to be DELFINO. It is more than that, more likely aplastic or neurological anemia. The patient may benefit from dexamethasone. We are going to leave this up to Dr. Hinton. * Fluid overload. Lasix 20 mg twice a day. * Dyslipidemia. Lipitor 40 mg once a day. PLAN: Discontinue Minto-Saba. Discontinue art line. Discontinue chest tubes. Transfer to telemetry. TID: [id number] RECEIPT: [id number]
--- NOTE | 2024-10-07 07:00 | PN ---
PROBLEM LIST: * Premature coronary artery disease with nontransmural myocardial infarction and unstable angina on presentation. * Severe 3-vessel coronary artery disease by cardiac catheterization on this admission. * Status post coronary artery bypass graft surgery x 3 with APARICIO to the LAD, saphenous vein graft to the posterior left ventricular branch of the circumflex and saphenous vein graft to the PDA, 10/03/2024 with findings of small targets intraoperatively. * Postoperative thrombocytopenia, being evaluated by Hematology. * Ischemic cardiomyopathy with EF of 35-40% by echocardiography, 09/23/2024, ? hibernating myocardium. * Acute on chronic systolic and diastolic congestive heart failure with reduced ejection fraction. * End-stage renal disease, status post initiation of hemodialysis on this admission. * History of influenza pneumonia with sepsis on this admission, resolving. * Acute hypoxemic respiratory failure, resolving. * Diabetes mellitus type 2, with circulatory and renal manifestations. * Hyperosmolar hyperglycemic syndrome. * Hypertension. * Hyperlipoproteinemia. * Protein malnutrition. This patient has been doing well and has been progressing nicely from the cardiac standpoint since I have evaluated him yesterday. He is currently sitting up in a chair with no active complaints. He specifically denies any chest discomfort or shortness of breath. PHYSICAL EXAMINATION: VITAL SIGNS: On exam, the patient is afebrile. His vital signs are stable. His heart rate is in the mid 90s with a respiratory rate of 18-20. His blood pressure is 110-125 systolic range. He is currently saturating at 98% on room air. LUNGS: Exam is remarkable for minimal reduction in the air entry at bases. He has minimal crackles. CARDIAC: Exam is remarkable for a soft systolic ejection murmur. ABDOMEN: Soft. EXTREMITIES: Remarkable for 1+ edema bilaterally. LABORATORY DATA: Laboratory studies reveal a white count of 7.5 with an H and H of 7.1 and 21.3 respectively. Platelet count is currently still low at 39,000, which is similar to yesterday's platelet count. The patient's anemia is being evaluated by the primary care team, and by Nephrology, who are following the patient closely. The patient's chemistries have revealed a sodium of 142, potassium of 4.0, chloride 100, CO2 is 30, BUN is 61, creatinine is 9.0 with a GFR of 7. The patient's random glucose was 52 and is being managed for hyperglycemia, hypoglycemia protocol. The patient's calcium is 8.1 and the phosphorus is 7.4. MEDICATIONS: This gentleman is currently maintained on Retacrit, calcium, insulin, metoprolol at a low dose of 12.5 b.i.d., Robitussin, famotidine, Colace, tramadol, gabapentin, atorvastatin, albuterol, iron supplement, and baby aspirin. The patient is also on vitamin B complex and vitamin C and folic acid started yesterday by Dr. Hinton. ASSESSMENT AND PLAN: From the cardiac standpoint, the patient appears to be progressing nicely. I have recommended that we continue the current medications. I am reluctant to increase his beta blockers that were initiated any afterload reducing agents now given the patient's marginal pressures. Moreover, I will await additional recommendations from Dr. Hinton in regards to the patient's thrombocytopenia and continue the baby aspirin therapy. TID: [id number] RECEIPT: [id number]
[2024-10-07] MEDS: INSULIN humuLIN R 100 UNIT/ML 3ML SQ SCH ×2 (07:22→18:24)
[2024-10-07] MEDS: CALCIUM CARB 500MG PO SCH (08:00)
--- NOTE | 2024-10-07 08:37 | HMCIMG ---
CHEST 1VW HISTORY: Post CABG COMPARISON: 10/06/2024 FINDINGS: A frontal projection of the chest was obtained. Mild bilateral pulmonary infiltrates are seen may be related to mild pulmonary vascular congestion with possible superimposed pneumonitis. Poststernotomy changes are seen. The heart is enlarged. Degenerative changes of the thoracolumbar spine are present. All the lines and tubes are again seen in place. No evidence of aortic calcification is seen. IMPRESSION: 1. Mild bilateral pulmonary infiltrates are seen may be related to mild pulmonary vascular congestion with possible superimposed pneumonitis.
[2024-10-07] MEDS ORDERED: EPOETIN ALFA-EPBX (NON-ESRD) 10,000 UNIT/ML VIAL SQ SCH (09:00)
[2024-10-07 09:18] LABS: HEMATOCRIT 24.7 % (42-54)
--- NOTE | 2024-10-07 10:34 | PN ---
[facility] PROGRESS NOTE Date Patient Seen: Oct 07, 2024 Time of Visit: 10:28 Supervising Physician: Dr Max Lucas Primary Care Physician: Gama Acosta Outpatient Specialists: [ ] Inpatient Consults: Cardiology, nephrology and critical care team PROBLEM LIST: Septic shock, not POA, resolved off pressor Acute Hypoxemic Respiratory Failure, POA, on 2LNC Nstemi, POA, s/p CABG 10/03/[address] Page Acute on chronic CHF with reduced EF of 35 40% Acute thrombocytopenia, not POA, r/o HIT pending oncology eval Community acquired influenza A viral pneumoniae w/ superimposed Bilateral bacterial Pneumonia, POA, treated Sepsis Due To Bilateral Pneumonia And Influenza A Infection, POA, improved Severe transaminitis 2/2 shocked liver not POA ESRD with new onset hemodialysis this admission s/p Rt permacath Recurrent Dka w/ reopening of AGAP and ketones, resolved Acute Metabolic Acidosis 2/2 DkA and SAURABH , POA, improved Hyperkalemia In The Context Of Chronic Kidney Injury, Poa Morbid Obesity BMI 40.5 Plan Summary: Supplemental oxygen as needed Wean off as tolerates IS q 1 hour while awake Continue metoprolol Continue HD as per Nephrology Follow CVS recommendation Out of bed to chair and ambulate Dispo: As per attending INTERVAL HISTORY: 09/22/2024: At the time my evaluation, the patient was in the emergency department awaiting bed assignment. The staff nurse reports no acute events overnight. The patient was on a Oxymizer with optimal SpO2. He was normotensive without the need for pressor therapy. There was no complaint of chest pain. There was no abdominal pain, nausea vomiting or diarrhea. The patient continued on a insulin drip per the DKA protocol. He was started on antibiotic and antiviral therapy for management of his condition. Review of labs today showed no major concern on CBC. Chemistry panel did show a sodium of 135, chloride of 100 and a CO2 of 20 with a anion gap of 15. Blood glucose remains elevated in the 300s. No new complaint. 09/23- saw patient and ED 13 awake alert and oriented x3. 2D echo at bedside being performed. Patient has been afebrile heart rate of 110, blood pressure 116/63 with respiratory rate of 20 saturating 97% with 7 L via nasal cannula oximizer. Urine output 1.4 L in the last 24 hours. On laboratory WBCs are 11.4 H&H trending down 7.6/23.1 with a platelet count that is 178 K. on chemistry sodium 136 potassium of 3.7 chloride 100 carbon dioxide of 19 BUN 106. Creatinine of 8.6 and GFR of 7. Per Dr Armenta pt scheduled for a Mitesh hemodialysis catheter per IR today. Pt continues with Tamiflu, Doxy, Cefepime and MRSA coverage will be added w/ vanco due to suspected MRSA superimposed pneumonia on Influenza pneumonia. On CT chest, abdomen and pelvis shows Acute appearing infiltrates in both lung bases consistent with pneumoniae. No acute finding in the abdomen or pelvis. Del Cid catheter in good position in the urinary bladder. We will continue to follow Neprhology recommendations. 09/24 patient was seen and examined at bedside with primary nurse present. Patient to receive1 unit PRBCs hemoglobin this a.m. 6.8. Continue to monitor closely. Patient to continue on IV antibiotics. Patient's troponin levels trending down. We will continue to follow recommendations of Cardiology. Patient remains hypoxic requiring supplemental oxygen via nasal cannula at L. Patient states does not use home oxygen. Patient is to continue on heparin drip. Patient to continue on IV steroids. Patient's echocardiogram revealed EF of 35-40%. Patient's blood cultures have been negative x2 days. Patient remains high risk for decompensation. 09/25 patient was seen and examined at bedside with mother present. At time of visit patient is currently on room air has been weaned off oxygen. Yesterday patient was on 5 L. As per patient is tolerating room air well. Patient denies any chest pain or shortness of breadth, however does report shortness of breath upon minimal exertion. Patient remains on heparin drip. Patient is still currently pending coronary CT to be completed, further recommendations by Cardiology to follow once examined has been completed. Patient to continue on hemodialysis per Nephrology's recommendations. 09/26/24-patient is awake alert and oriented x3. He requires Levophed at 0 point 4 micrograms/kilogram per minute for blood pressure support. He was brought into the ICU overnight due to hypotension and elevated liver enzymes. Current blood pressure of 129/74 heart rate in the 80s respiratory rate of 19 saturating 100% with 7 L via Oxymizer and afebrile. As per RN she is weaning Levophed. Urine output was 100 mL in the last 24 hours he received hemodialysis today with 3.6 L out and had one bowel movement. WBCs spiked up this morning from 17.6224.2 H&H 8.6/25.4 and platelet count is normal 291 K. neutrophils 79.5. Gross spect patient aspirated in the episode of hypotension due to increased pulmonary infiltrates to right side and spike in white count and temperature. Patient was panculture and cefepime changed to Zosyn to cover for aspiration pneumonia. On chest x-ray patient with a extensive bilateral infiltrates unchanged. No pneumothorax. Chemistries sodium of 130 potassium is 6.2 chloride of 90 carbon dioxide of 17 with a BUN of 119 and creatinine 9.6 and GFR of six liver enzymes raised AST of 6752 ALT of 4302, alkaline phosphatase of 233 likely from shock liver procalcitonin elevated at 24.31 decreased from admission wishes 70. On repeat BNP patient has a sodium of 134 potassium of 3.5 chloride of 91 carbon dioxide 26 with a anion gap of 17 and ketones of 1.4 we will need to restart insulin drip per DKA protocol. 09/27/24-pt is awake alert and oriented x 3. He is hemodynamically stable and off pressors. He denies any chill, chest pain or increased sob at rest. He does report sob on exertion and reports poor appetite. He is due for HD treatment today. Per RN no major overnight events and he has been afebrile. WBC's are trending down now 20.4, H&H is 8.9/26.3 and platelet count is 220 K. chemistry patient had a sodium of 134 potassium is normal 4.6 chloride of 92 carbon dioxide 24, AGAP has closed, liver enzymes severely elevated consistent with shocked lover but we will order us of abdomen to assess Liver and Gallbladder. Ketones of 0.2. We have discontinued DKA protocol and pt ,may be downgraded from ICU today. 09/28 patient was seen and examined at bedside with family present. Patient is awake alert able to answer simple questions appropriately. Patient is on room air appears to be tolerating well. Patient has remained hemodynamically stable. Patient denies any chest pain or shortness of breadth. Denies any nausea vomiting or abdominal pain. Most per primary nurse no acute events to be reported. We will continue to follow recommendations from Nephrology and Cardiology appreciate assistance. We will continue to monitor patient closely 09/29 patient was seen and examined at bedside with family present. Patient remains on room air tolerating well. Patient is scheduled for coronary CT today we will follow recommendations from Cardiology. Patient to continue on hemodialysis per Nephrology's recommendations. Patient's WBCs trending down today 18.6 yesterday 22.0. Patient to continue on IV antibiotics. We will continue to monitor patient closely. 09/[address] coronary angiogram which revealed 90% stenosis of the LAD as well as 90% stenosis of the left circumflex. Per bedside nurse, patient was offered stent placement, however refused and is wanting to pursue this as an outpatient. Patient's blood sugar remains elevated in for 0s, we will adjust insulin as indicated. Pro mallory significantly decreased from 70 down to 6. Blood and urine cultures remain negative, sputum cultures growing Dunia. His liver enzymes remain elevated but significantly downtrended. Patient is pending AV fistula for hemodialysis, however CTS is deferring this as an outpatient in order to prioritize his CAD management. 10/01 Patient had abnormal LHC and is referred for CABG. His abdominal U/S was negative for gallstones or ductal dilation. Carotid doppler WNL. CXR consist ent with pulmonary venous congestion. Continues on dialysis with temp cath per nephrology, pending AV graft by CTS. Blood sugar is persistently elevated, insulin adjusted per primary. 10/02 Patient is evaluated at bedside. Continues with dialysis as scheduled. Patient had endocrinology consult with the adjustment in his insulin regimen. Patient is pending CABG in a.m. He denies any chest pain. 10/03 Patient is evaluated at bedside. Insulin dosing adjusted per endocrinology with improvement in glucose readings. Continues with dialysis as scheduled. Pending CABG today, no current complaints. 10/04 patient was admitted at bedside. He was status post CABG yesterday by Dr. Page. He was brought in the ICU postop for medical management. At the time of my visit. Patient had been extubated and saturating well on aerosol mask at 40% FiO2. He is awake, alert, following commands. Continues on vasopressin and epinephrine. Patient also undergoing an extra dialysis session today which just over 1.2L removed. Per bedside nurse had to initiate levophed temporarily d/t low blood pressure. Chest tube in place with 1260ml of output per chart. His hemoglobin dropped to 5.5 overnight, did receive blood products with improvement to 9.0. 10/05 Patient is evaluated at bedside. Blood pressures are maintained with maps above 70. He continues on low-dose epi drip per CTS request. Chest tube with the about 800 cc of drainage overnight per nursing staff. Hemoglobin has dropped to 6.6, currently receiving one PRBC. He had a dialysis session yesterday, labs showed mild hyperkalemia. We will continue dialysis per Nephrol vanna's recommendation. White blood count is within normal limits at nine, cultures remained negative. 10/06 patient is evaluated at bedside. Has been weaned off pressors. Blood pressures are holding up with maps above 70. CXR reveals atelectasis in pulm onary congestion. Patient did have hemodialysis session yesterday with 2.4 L of fluid removed. His femoral a line has been removed and patient is up out of bed to chair. He is slightly edematous to upper and lower extremities. Encouraged use of incentive spirometer. Continues on 2 L NC. He is comfortable without pain. Patient's hemoglobin continues to fluctuate. Did receive 1 unit PRBC yesterday with improvement in hemoglobin to 8.1 now decreasing to 7.3. WBCs have remained within normal limits, patient without signs or symptoms of infection. His platelets have decreased to 38 today, patient is not on any antiplatelets or anticoagulants but does have heparin flush with dialysis. He continues with chest tube with about 1800 mL of total output about 600 mL overnight. Ok to downgrade patient. 10/07 - patient is seen and evaluated at the bedside. Patient is sitting up in bed currently receiving hemodialysis. Patient does not appear to be in any acute distress at this time. Patient does appear to be weak and hypoxemic requiring2 L via nasal cannula. Patient is reported respiratory status continues to improve daily. Instructed nursing to wean off O2 as tolerated. Patient's chest tubes have been discontinued. Vital Signs are stable. Labs are within normal limits. Recommend to continue IS while awake and wean off O2 as tolerated. Patient has been advised to get a bed and ambulate with therapy at least twice a day. REVIEW OF SYSTEMS: 12 point ROS reviewed with patient. Pertinent positives mentioned above. Otherwise negative. PHYSICAL EXAM: GENERAL: alert, weak, awake oriented x 3, weak, deconditioned HEENT: EOMI, Sclera non icteric, moist mucosa NECK: Supple, no JVD, trachea midline LUNGS: coarse rhonchi breath sounds decreased bilaterally. No wheezes HEART: Regular rate and rhythm. Normal S1 and S2, without murmurs ABD: Abdomen soft, nontender. Bowel sounds present EXT: No clubbing cyanosis, positve 2+ edema to upper and lower extremities NEURO: Alert and oriented to person, follows commands Vital Signs (last 8hr) Date Time Temp Pulse Resp B/P (MAP) Pulse Ox O2 Delivery O2 Flow Rate FiO2 10/07/24 09:25 98.1 100 16 120/74 Nasal Cannula 2.0 10/07/24 08:03 98.6 104 20 111/61 97 Nasal Cannula 2.0 10/07/24 04:23 98.4 93 18 122/76 98 Room Air LABS: Hematology Labs: Test 10/07/24 08:58 10/07/24 03:45 10/06/24 03:55 Range/Units Hemoglobin 8.0 L 14.0-18.0 g/dL Hematocrit 24.7 L 42-54 % White Blood Count 7.5 4.8-10.8 K/uL Red Blood Count 2.50 L 4.50-6.20 MIL/uL Mean Corpuscular Volume 85.2 79-99 fL Mean Corpuscular Hemoglobin 28.4 27.0-33.0 pg Mean Corpuscular Hemoglobin Concent 33.3 32.0-36.0 g/dL Red Cell Distribution Width 15.9 H 11.0-15.5 % Platelet Count 39 L 130-400 K/uL Mean Platelet Volume 11.9 H 7.5-10.5 fL Nucleated Red Blood Cells 0.0 0.0-0.19 % Immature Granulocyte % (Auto) 0.6 0-1 % Neutrophils (%) (Auto) 76.3 40.0-77.0 % Lymphocytes (%) (Auto) 8.3 L 21.0-51.0 % Monocytes (%) (Auto) 7.9 3.0-13.0 % Eosinophils (%) (Auto) 6.4 0.0-8.0 % Basophils (%) (Auto) 0.5 0.0-5.0 % Neutrophils # (Auto) 4.8 1.8-7.7 K/uL Lymphocytes # (Auto) 0.5 L 1.0-4.8 K/uL Monocytes # (Auto) 0.5 0.1-1.0 K/uL Eosinophils # (Auto) 0.40 0.00-0.70 K/uL Basophils # (Auto) 0.03 0.00-0.20 K/uL Absolute Immature Granulocyte (auto 0.04 0-1 K/uL White Cell Morphology Comment See comments Chemistry Labs: Test 10/07/24 05:22 10/07/24 05:02 10/07/24 03:45 Range/Units Whole Blood Glucose 82 # 70-110 MG/DL Bedside Glucose Comment Notified Nurse Sodium Level 142 136-145 mmol/L Potassium Level 4.3 3.5-5.1 mmol/L Chloride Level 100 L 101-111 mmol/L Carbon Dioxide Level 30 21-32 mmol/L Blood Urea Nitrogen 61 H 7-18 mg/dL Creatinine 9.0 *H 0.5-1.3 mg/dL Glomerular Filtration Rate Calc 7 >90 mL/min Random Glucose 52 #L 70-105 mg/dL Total Calcium 8.1 L 8.5-10.1 mg/dL Phosphorus Level 7.4 H 2.5-4.9 mg/dL Coagulation Labs: Test 10/06/24 09:24 Range/Units Prothrombin Time 11.5 9.6-11.6 SEC Prothromb Time International Ratio 1.03 0.85-1.15 Activated Partial Thromboplast Time 33.4 26.3-35.5 SEC Fibrinogen 622 *H 180-350 mg/dL D-Dimer Quantitative (PE/DVT) 475 0-500 ng/mL DIAGNOSTICS / RADIOLOGY RESULTS: [ ] NEURO: Minimize central acting medications as possible. Maintain fall precautions, adequate lighting during the day PULMONARY: Supplemental 02 as needed. Maintain aspiration precautions at all times IS while awake CARDIOVASCULAR: Follow hemodynamics. Vital signs per facility protocol GI & NUTRITION: Continue with nutritional support. Continue stool softeners and laxatives as needed. KIDNEYS & ELECTROLYTES: Strict monitoring of intake, output and overall fluid balance. Avoid nephrotoxic medications to the extent possible. Medications to be dosed according to renal function. Monitor electrolytes and replace as needed ENDOCRINE: Maintain blood glucose between 100-180 at all times. Hypoglycemia protocol in place INFECTIOUS DISEASE: Trend temperature, WBC and procalcitonin level Follow cultures, deescalate antibiotics as soon as possible. Panculture if new onset fever ONCOLOGY/HEMATOLOGY/COAGULATION: Monitor for s/s of bleeding Monitor hemoglobin, coagulation studies as needed SKIN: Pressure ulcer prevention per facility protocol Specialty mattress ORTHO/REHAB: Continue PT/OT Prophylaxis: Continue GI and DVT prophylaxis Code Status: Full Resuscitation Disposition: As per attending Other: Case discussed with supervising physician plan of care agreed upon ATTESTATION BY PHYSICIAN The patient has been seen and evaluated, the case has been discussed with the COMPUTER NETWORK ENGINEER, I agree with the clinical findings and plan of care. Lucian Lucas MD, ECTOR N COMPUTER NETWORK ENGINEER Oct 07, 2024 10:33
--- NOTE | 2024-10-07 12:00 | NUR ---
Patient sitting in chair at this time. Voices no complaints of pain or other discomfort. Call light in reach.
--- NOTE | 2024-10-07 12:06 | PN ---
[facility] PROGRESS NOTE Date of Service: Oct 07, 2024 Time of Service: 12:02 SUBJECTIVE: This is a 49-year-old male with past medical history of CKD not on hemodialysis, diabetes, hypertension, hyperlipidemia and obesity who presents to the ED for complaints of cough and chest congestion which started last Sunday and getting worse on Sunday. Patient reports coughing up pinkish colored thick phlegm, loss of appetite and on Sunday started not eating unable to sleep, vomiting and having chest pain triggered by persistent coughing he said.Patient reports having soreness due to hard cough he said.Patient reports having sweeling on both lower extremities and started having shortness of breath and today he started having non bloody diarrhea. Neela was at bedside during my evaluation. Upon arrival to ER a STEMI alert was activated per ER MD and spoke to Remote Control Assembler integration aide and as per report patient is possibly going to cathlab tomorrow and patient is going to be started on Heparin and Insulin drip. Seen and examined patient in the Er awake,alert and coherent,appears weak looking.Patient denies fever,palpitation ,dizziness ,sore throat and headache. Latest vital signs temperature 98.1, heart rate 108, respiration 30 blood pressure 130/68 saturation 91% on 4 L nasal cannula. Labs: WBC 11.2, hemoglobin 9, hematocrit 27, platelet count 238, neutrophils 88. PH 7.32, CO2 26, PO2 49.6, bicarb 13, PO2 80 base excess -11.3. Sodium 129, potassium 5.9, chloride 93, CO2 19, BUN 88, creatinine 8.2, GFR seven glucose 876 , lactic acid 3.0-3.2, troponin 5531 albumin 2.1. Influenza A positive influenza B negative SARs COVID negative. Strep A negative. Chest x-ray result revealed extensive bilateral mid to lower lung pneumonia right greater than left. First ECG result revealed sinus tachycardia heart rate 121 probable left atrial enlargement repolarization abnormal suggest ischemia diffuse leads ST-elevation consider anterior injury. Second EKG result revealed sinus tachycardia repolarization abnormality suggest ischemia diffuse leads borderline ST elevation anterior leads heart rate 108. While in the ER patient received Tamiflu 75 mg p.o., 1 L NS bolus, Lopressor 5 mg IV, insulin 10 units IV, Zosyn IV, Zofran 4 mg IV and Phenergan codeine 10 mL p.o. we will admit patient in ICU for further medical management. 10/02/24 Patient was seen and examined at bedside. He is alert, awake and oriented. No acute events overnight. He denies chest pain or abdominal pain or palpitations or dizziness or shortness of breath. Dr. Page was consulted for CABG, he will be scheduled for it later this week or next week. Dr. Perry was consulted because of constant hyperglycemia, changed his lantus to 30 and lispro 10U TID , will follow up on the glucose levels next 24 hours.As per his , Lantus never worked for him, will try 70/30 if it is not under control. Remarkable labs are sodium 135, Chloride 97, BUN 85, Creatinine 9.1, glucose 454, corrected calcium 7.4, phosphorous 6.5, his liver function is improving. 10/03/24 Patient was seen and examined at bedside. He is alert, awake and oriented. No acute events overnight. He denies chest pain or abdominal pain or palpitations or dizziness or shortness of breath. He will be taken to surgery this afternoon for CABG by . His blood glucose is improving. We will labs or hemoglobin 9.1, chloride 99, BUN 67, creatinine 8.4, HbA1c 12.0, total calcium improving from 7.4-7.6, BNP 2810, ALT improving from 897 to 638, LDL 134, [place] [address] to [address]. Chest x-ray showed clear lungs with right Permcath at the tip of distal superior vena cava level. 10/04/24 patient was seen and examined. Case discussed with the RN. He is doing well he was successfully underwent CABG. He denies any chest pain or shortness for breath, 10/05/24 Patient was seen and examined at bedside. Today his vitals are blood pressure 142/75, pulse rate 95, respiratory rate 16. Currently on low-dose epinephrine drip. His chest tube drained 980 mL in the last 24 hours and 1.2 L was ultrafiltered during his hemodialysis session yesterday. Remarkable labs her hemoglobin 6.6, hematocrit 20.4, platelets 09187, sodium 148, potassium 5.2, BUN 55, creatinine 7.9 phosphorus 8.0. Lactic acid came down 3.25 to 1.3. He was transfused 1 unit of RBC in the morning. [place] [address] to 9100, no temperatures in the last 24 hours. He denies chest pain or shortness of breath or palpitations or dizziness. He has a hemodialysis session today. Chest x-ray today showed mild bilateral perihilar atelectasis and suspect raise left pleural fluid with subjacent, subsegmental atelectasis, but no evidence for pneumothorax. 10/06/24 Patient was seen and examined at bedside. His blood pressure is holding up, has been weaned off pressors. Currently on 2L nasal cannula, encouraging him to use incentive spirometer. Dr. Cesar recommended hematology consult as his platelets have been dropping, currently 39k. He is not on heparin drip or any heparin c oated catheters. He received one unit of packed rbc as his hemoglobin was 6.8 , improved to 8.1. remarkable labs are bicarb 30, BUN 45, creatinine 7 with a GFR 9. He is up from his bed to his chair, he looks weak but is doing better. 10/07/24 Patient was seen and examined at bedside. He has been dowgraded to PCCU. Dr. Parker has d/c'ed chest tubes, radial artery line, swan winter and cordis. His vitals are blood pressure 135/89, pulse rate 98, respiratory rate 20, SpO2 97% on 2 L nasal cannula, T-max 98.8. We will try to wean him off oxygen as tolerated. Dr. Hinton recommended direct coomb's due to thrombocytopenia which was negative. Recommended platelet transfusion. Remarkable labs are H&H 8&24.7, chloride 100, BUN 61, creatinine 9.0, blood glucose 52, phosphorus 7.4. His PermCath will be placed outpatient. Plan is to DC him to home once his thrombocytopenia improves and he passes the 6 minute walk test. REVIEW OF SYSTEMS CONSTITUTIONAL: Denies fevers, chills, or night sweats. No unintentional weight loss reported. NEUROLOGICAL: Denies headache, amaurosis fugax, motor weakness, sensory deficit, vertigo/spinning sensation, gait abnormalities, or tremors. ENT: No hearing loss, otalgia, otorrhea, rhinitis, rhinorrhea, hoarseness, or sore throat. CARDIOVASCULAR: Denies orthopnea shortness of breaths and chest pain Denies paroxysmal nocturnal dyspnea, palpitations, life-threatening arrhythmias, claudication. PULMONARY: Denies productive cough , pleuritic chest pain and shortness of breaths SLEEP: Complains of unable to sleep Denies morning headaches, daytime somnolence or napping. Denies waking from sleep. Denies knowledge of snoring. GASTROINTESTINAL: Denies loss of appetite, vomiting and diarrhea Denies any type of dysphagia to either liquids or solids. Denies nausea, vomiting, pyrosis, early satiety, abdominal pain, diarrhea, constipation, or changes in stool consistency or caliber. Denies coffee-ground emesis, hematemesis, hematochezia, or melanotic stools. GENITOURINARY: Denies frequency, urgency, nocturia, hematuria or incontinence (Storage/Irritative symptoms.) Low urinary stream, straining to void, urinary intermittency or hesitancy, splitting of the voiding stream, terminal dribbling. ENDOCRINOLOGIC: Denies polyuria, polydipsia, polyphagia or heat/cold intolerances. Patient reports not taking medications for diabetes because he was not eating. HEMATOLOGIC: Denies thrombophilia/previous clots, or coagulopathy/bleeding disorders. ONCOLOGIC: Denies personal history of malignancy. DERMATOLOGIC: Denies rashes or pruritus. PSYCHIATRIC: Denies any suicidal or homicidal ideation. Denies hallucinations. PHYSICAL EXAM GENERAL APPEARANCE: The patient is awake, alert, and oriented appears generally weak NEUROLOGICAL: Cranial nerves II-XII grossly intact. Motor is 5/5 in bilateral upper and lower extremities proximal to distal. No sensory deficits. HEENT: Face is symmetric. Pupils are equal and reactive. Extraocular movements are intact. NECK: Supple. No JVD. No thyromegaly. No submental, submandibular, pre- /postauricular, occipital or supraclavicular lymphadenopathy. CHEST: Normal chest expansion. No Telemetry. LUNGS: . Diminished lung sounds to bilateral lung james CARDIOVASCULAR: Regular. S1 and S2 normal. No appreciable rubs, murmurs or gallops. ABDOMEN: Round and firmed There is no rebound, voluntary guarding, or rigidity. : Deferred. No Del Cid. EXTREMITIES: Bilateral lower extremity edema No clubbing. Good capillary refill. SKIN: No skin breakdown. Vital Signs (last 8hr) Date Time Temp Pulse Resp B/P (MAP) Pulse Ox O2 Delivery O2 Flow Rate FiO2 10/07/24 11:30 99 16 143/86 Nasal Cannula 2.0 10/07/24 11:15 97 16 131/86 Nasal Cannula 2.0 10/07/24 11:00 94 16 141/85 Nasal Cannula 2.0 10/07/24 10:45 98 16 135/83 Nasal Cannula 2.0 10/07/24 10:30 96 16 133/80 Nasal Cannula 2.0 10/07/24 10:15 96 16 138/76 Nasal Cannula 2.0 10/07/24 10:00 100 16 114/77 Nasal Cannula 2.0 10/07/24 09:45 98.8 100 16 126/70 Nasal Cannula 2.0 10/07/24 09:25 98.1 100 16 120/74 Nasal Cannula 2.0 10/07/24 08:03 98.6 104 20 111/61 97 Nasal Cannula 2.0 10/07/24 04:23 98.4 93 18 122/76 98 Room Air LABS: Laboratory: Test 10/07/24 11:34 10/07/24 08:58 10/07/24 05:02 10/07/24 03:45 Range/Units Whole Blood Glucose 170 #H 70-110 MG/DL Hemoglobin 8.0 L 14.0-18.0 g/dL Hematocrit 24.7 L 42-54 % Bedside Glucose Comment Notified Nurse White Blood Count 7.5 4.8-10.8 K/uL Red Blood Count 2.50 L 4.50-6.20 MIL/uL Mean Corpuscular Volume 85.2 79-99 fL Mean Corpuscular Hemoglobin 28.4 27.0-33.0 pg Mean Corpuscular Hemoglobin Concent 33.3 32.0-36.0 g/dL Red Cell Distribution Width 15.9 H 11.0-15.5 % Platelet Count 39 L 130-400 K/uL Mean Platelet Volume 11.9 H 7.5-10.5 fL Nucleated Red Blood Cells 0.0 0.0-0.19 % Sodium Level 142 136-145 mmol/L Potassium Level 4.3 3.5-5.1 mmol/L Chloride Level 100 L 101-111 mmol/L Carbon Dioxide Level 30 21-32 mmol/L Blood Urea Nitrogen 61 H 7-18 mg/dL Creatinine 9.0 *H 0.5-1.3 mg/dL Glomerular Filtration Rate Calc 7 >90 mL/min Random Glucose 52 #L 70-105 mg/dL Total Calcium 8.1 L 8.5-10.1 mg/dL Phosphorus Level 7.4 H 2.5-4.9 mg/dL Test 10/06/24 09:24 10/06/24 09:06 10/06/24 03:55 Range/Units Prothrombin Time 11.5 9.6-11.6 SEC Prothromb Time International Ratio 1.03 0.85-1.15 Activated Partial Thromboplast Time 33.4 26.3-35.5 SEC Fibrinogen 622 *H 180-350 mg/dL D-Dimer Quantitative (PE/DVT) 475 0-500 ng/mL Blood Gas Specimen Type Arterial Arterial Blood pH 7.368 7.350-7.450 Arterial Blood Partial Pressure CO2 46 35-48 mmHg Arterial Blood Partial Pressure O2 73.0 L 83.0-108.0 mmHg Arterial Blood HCO3 25.8 21.0-28.0 mmol/L Arterial Blood Oxygen Saturation 93.1 L 94.0-98.0 % Arterial Blood Base Excess 0.3 -2.0-3.0 mmol/L Hemoglobin (Blood Gas) 8.5 L 13.5-17.5 g/dL Sodium (Blood Gas) 134 L 136-145 MMOL/L Bedside Potassium (Blood Gas) 4.8 H 3.4-4.5 MMOL/L Bedside Chloride (Blood Gas) 95 L 98-107 MMOL/L Bedside Glucose (Blood Gas) 225 H 65-95 MG/DL Bedside Ionized Calcium (Blood Gas) 1.01 L 1.15-1.33 MMOL/L Bedside Lactic Acid (Blood Gas) 0.72 0.36-0.75 MMOL/L Blood Gas Temperature 37.0 35.5-37.0 CELSIUS Blood Gas Flow-by 2.00 0.00-15.00 L/min Blood Gas Vent Mode NC ROOM AIR FiO2 28.0 % Blood Gas Specimen Comment DIONICIO HUMPHREY,RN Immature Granulocyte % (Auto) 0.6 0-1 % Neutrophils (%) (Auto) 76.3 40.0-77.0 % Lymphocytes (%) (Auto) 8.3 L 21.0-51.0 % Monocytes (%) (Auto) 7.9 3.0-13.0 % Eosinophils (%) (Auto) 6.4 0.0-8.0 % Basophils (%) (Auto) 0.5 0.0-5.0 % Neutrophils # (Auto) 4.8 1.8-7.7 K/uL Lymphocytes # (Auto) 0.5 L 1.0-4.8 K/uL Monocytes # (Auto) 0.5 0.1-1.0 K/uL Eosinophils # (Auto) 0.40 0.00-0.70 K/uL Basophils # (Auto) 0.03 0.00-0.20 K/uL Absolute Immature Granulocyte (auto 0.04 0-1 K/uL White Cell Morphology Comment See comments Current Medications Medications (Trade) Dose Ordered Sig/Sierra Route PRN Reason Start Time Stop Time Status Last Admin Dose Admin Acetaminophen (TYLenol 325MG TAB) 650 mg Q4H PRN PO MILD PAIN (1-3) 09/21/24 19:30 10/03/24 12:53 DC 09/30/24 01:32 650 MG Acetaminophen (TYLenol 325MG TAB) 650 mg Q4H PRN PO Temp >38.3C(AFTER EXTUBATION) 10/03/24 13:00 11/02/24 12:59 Acetaminophen (TYLenol 325MG TAB) 650 mg Q6H PRN PO TEMPERATURE GREATER THAN 101.5 09/21/24 19:30 10/03/24 12:53 DC Acetaminophen (TYLenol 325MG TAB) 650 mg Q6H PRN PO MILD PAIN (1-3) 10/03/24 13:00 11/02/24 12:59 10/04/24 08:59 650 MG Acetaminophen (TYLenol 650MG SUPPOSITORY) 650 mg Q4H PRN RC Temp >38.3C WHILE INTUBATED 10/03/24 13:00 11/02/24 12:59 Acetaminophen (acetaMINOPHEN) 1,000 mg Q6H6 IV 10/03/24 18:00 10/04/24 17:59 DC 10/04/24 11:18 1,000 MG Albumin Human 100 ml @ 0 mls/hr AD STAT IV 09/25/24 23:09 09/25/24 23:12 DC 09/25/24 23:17 100 MLS/HR Albumin Human 250 ml @ 0 mls/hr AD PRN IV IF HEMODYNAMICALLY UNSTABLE 10/03/24 13:00 10/03/24 17:24 DC 10/03/24 17:23 250 MLS/HR Albumin Human (Albumin (Human) 25%) 100 ml ONCE IV 10/05/24 16:00 10/06/24 15:59 DC 10/05/24 16:18 100 ML Albuterol (DUOneb) 1 udvial [id number] IH 09/21/24 22:00 09/25/24 09:59 DC 09/25/24 06:43 1 UDVIAL Albuterol (DUOneb) 1 udvial [id number] IH 09/25/24 10:00 09/26/24 15:22 DC 09/26/24 11:17 1 UDVIAL Albuterol (DUOneb) 1 udvial [id number] PRN IH WHEEZING 09/26/24 15:30 10/21/24 21:59 Aminocaproic Acid 87055 mg/Sodium Chloride 310 ml @ 25 mls/hr AD IV 10/03/24 13:00 10/03/24 13:03 DC Aminocaproic Acid 22616 mg/Sodium Chloride 480 ml @ 0 mls/hr AD PRN IV BLEEDING CONTROL 10/03/24 10:00 11/02/24 09:59 Aspirin (Aspirin 81mg Ec Tab) 81 mg DAILY PO 09/22/24 09:00 10/22/24 08:59 10/06/24 09:12 81 MG Atorvastatin Calcium (LIPItor 20MG) 20 mg HS PO 09/23/24 21:00 09/27/24 10:38 DC 09/26/24 20:36 20 MG Atorvastatin Calcium (LIPItor 40MG) 40 mg HS PO 09/22/24 21:00 09/22/24 20:17 DC Atorvastatin Calcium (LIPItor 40MG) 40 mg HS PO 09/30/24 21:00 10/30/24 20:59 10/06/24 19:50 40 MG Atorvastatin Calcium (LIPItor 40MG) 40 mg HS PO 10/03/24 21:00 10/03/24 12:58 DC Azithromycin 250 ml @ 250 mls/hr Q24H IVPB 09/21/24 18:00 09/21/24 18:14 DC Calcium Carbonate (Oyster Shell Ca 500mg Tab) 1,000 mg TID PO 09/30/24 14:00 10/07/24 00:52 DC 10/06/24 19:50 1,000 MG Calcium Carbonate (Oyster Shell Ca 500mg Tab) 1,000 mg TIDMEALS PO 10/07/24 08:00 10/30/24 13:59 Calcium Gluconate 1 gm/Sodium Chloride 60 ml @ 200 mls/hr AD PRN IV HYPOCALCEMIA 10/03/24 13:00 11/02/24 12:59 10/05/24 11:32 200 MLS/HR Calcium Gluconate 1 gm/Sodium Chloride 100 ml @ 0 mls/hr PROTOCOL IV 10/01/24 17:00 10/03/24 12:53 DC Cefazolin Sodium (Ancef) 2 gm ONCALL IVPB 10/02/24 10:30 10/03/24 13:09 DC Cefazolin Sodium (Ancef) 2 gm Q8H IVPB 10/03/24 18:00 10/04/24 10:01 DC 10/04/24 09:46 2 GM Cefepime HCl (MAXipime 1 GM vial) 1 gm Q24H IVPB 09/23/24 08:30 09/26/24 11:14 DC 09/25/24 08:36 1 GM Chlordiazepoxide HCl (LIBrium 25 MG CAP) 25 mg Q2H PRN PO ALCOHOL WITHDRAWAL PROTOCOL 09/22/24 20:30 09/29/24 20:29 DC 09/28/24 23:59 25 MG Chlordiazepoxide HCl (LIBrium 25 MG CAP) 50 mg Q1H PRN PO ALCOHOL WITHDRAWAL PROTOCOL 09/22/24 20:30 09/29/24 20:29 DC Clopidogrel Bisulfate (plaVIX 75MG) 75 mg DAILY PO 09/24/24 09:00 09/26/24 07:14 DC 09/25/24 08:38 75 MG Clopidogrel Bisulfate (plaVIX 75MG) 75 mg DAILY PO 09/30/24 09:00 10/01/24 08:26 DC 09/30/24 08:49 75 MG Dexmedetomidine/ Sodium Chloride (PRECEdex 400MCG/ 100ML-NS) 400 mcg PROTOCOL IV 10/03/24 13:00 10/04/24 12:59 DC Dextrose (D50w) 50 ml AD PRN IV HYPOGLYCEMIA PROTOCOL 09/30/24 17:30 10/01/24 08:25 DC Dextrose (D50w) 50 ml AD PRN IV HYPOGLYCEMIA PROTOCOL 10/01/24 08:30 10/31/24 08:29 10/05/24 05:14 50 ML Dextrose (D50w) 50 ml AD PRN IV HYPOGLYCEMIA PROTOCOL 10/03/24 13:00 10/03/24 13:04 DC Dextrose/Sodium Chloride 1,000 ml @ 0 mls/hr AD IV 09/22/24 00:00 09/23/24 21:23 DC 09/22/24 09:49 150 MLS/HR Docusate Sodium (COLace 100MG CAP) 100 mg BID PO 10/03/24 21:00 11/02/24 20:59 10/06/24 19:50 100 MG Doxycycline Hyclate (Doxycycline Hyclate) 100 mg BID PO 09/21/24 21:00 09/30/24 23:59 DC 09/30/24 20:53 100 MG Epinephrine HCl 10 mg/Sodium Chloride 250 ml @ 0 mls/hr AD PRN IV TITRATE 10/03/24 10:00 11/02/24 09:59 10/04/24 06:35 7.4 MLS/HR Epinephrine HCl 10 mg/Sodium Chloride 250 ml @ 0 mls/hr AD PRN IV POST-OP CARDIOVASCULAR ORDERS 10/03/24 13:00 10/03/24 13:03 DC Epoetin Moses-epbx (Retacrit) 10,000 unit QMOWEFR SQ 10/01/24 09:00 10/06/24 15:12 DC 10/01/24 15:34 10,000 UNIT Epoetin Moses-epbx (Retacrit) 10,000 unit QTUTHSA SQ 10/07/24 09:00 10/31/24 08:59 Famotidine (Pepcid 20mg Vial) 10 mg DAILY IV 09/22/24 09:00 09/27/24 10:35 DC 09/27/24 09:09 10 MG Famotidine (Pepcid 20mg Vial) 20 mg Q48H IV 10/03/24 21:00 11/02/24 20:59 10/05/24 21:04 20 MG Famotidine (Pepcid 20mg Tab) 10 mg Q48H PO 09/21/24 19:30 09/21/24 20:00 DC Ferrous Sulfate (Ferrous Sulfate) 325 mg DAILY PO 09/23/24 09:00 10/23/24 08:59 10/06/24 09:12 325 MG Fish Oil (Fish Oil 1000 Mg/Cap) 2,000 mg BID PO 09/22/24 21:00 10/03/24 12:53 DC 10/02/24 20:38 2,000 MG Fluconazole/ Sodium Chloride (DiFLUCan 200 MG/ NS 100 ML) 200 mg Q24H IV 09/25/24 16:00 09/27/24 10:36 DC 09/26/24 14:38 200 MG Furosemide (LASix 40MG VIAL) 80 mg Q12H IV 09/22/24 21:00 09/26/24 15:22 DC 09/26/24 13:20 80 MG Gabapentin (NEURontin 100 mg CAP) 100 mg DAILY PO 10/01/24 09:00 10/24/24 20:59 10/06/24 09:12 100 MG Gabapentin (NEURontin 100 mg CAP) 100 mg TID PO 09/24/24 21:00 09/30/24 17:37 DC 09/30/24 14:07 100 MG Glucagon (Glucagon 1mg Kit) 1 mg AD PRN IM HYPOGLYCEMIA PROTOCOL 09/30/24 17:30 10/01/24 08:25 DC Glucagon (Glucagon 1mg Kit) 1 mg AD PRN IM HYPOGLYCEMIA PROTOCOL 10/01/24 08:30 10/31/24 08:29 Glucagon (Glucagon 1mg Kit) 1 mg AD PRN IM HYPOGLYCEMIA PROTOCOL 10/03/24 13:00 10/03/24 13:04 DC Guaifenesin/ Dextromethorphan (RobiTUSSin DM 200/20MG 10ML) 10 ml Q4H PRN PO COUGH 09/21/24 19:30 10/03/24 12:53 DC 09/23/24 22:06 10 ML Guaifenesin/ Dextromethorphan (RobiTUSSin DM 200/20MG 10ML) 15 ml Q4H PRN PO COUGH 10/06/24 01:30 11/05/24 01:29 10/06/24 01:35 15 ML Heparin Sodium (Porcine) (HEParin 5,000 UNIT VIAL) *calculation based on ACTUAL B... AD PRN IV HEPARIN PROTOCOL 09/21/24 19:30 09/26/24 07:14 DC Heparin Sodium (Porcine) (HEParin 5,000 UNIT VIAL) 10,000 unit AD IRRIG 09/27/24 14:00 10/27/24 13:59 10/01/24 17:18 10,000 UNIT Heparin Sodium/ Dextrose 250 ml @ 0 mls/hr Q6H IV 09/21/24 19:30 09/26/24 18:36 DC 09/25/24 04:13 14.7 MLS/HR Hydralazine HCl (APRESOLine 20MG INJ) 10 mg Q6H PRN IV ADMINISTER FOR SBP > 160 10/01/24 16:30 10/03/24 12:53 DC Insulin Glargine (LANtus 100 UNITS/ML 10 ML VIAL) 10 units BID@0730,2100 SQ 09/22/24 21:00 09/26/24 11:15 DC 09/25/24 20:44 10 UNITS Insulin Glargine (LANtus 100 UNITS/ML 10 ML VIAL) 10 units HS SQ 09/30/24 21:00 09/30/24 17:26 DC Insulin Glargine (LANtus 100 UNITS/ML 10 ML VIAL) 15 units BID@0730,2100 SQ 09/26/24 21:00 09/30/24 17:13 DC 09/30/24 07:03 15 UNITS Insulin Glargine (LANtus 100 UNITS/ML 10 ML VIAL) 20 units AM SQ 10/01/24 09:00 09/30/24 17:26 DC Insulin Glargine (LANtus 100 UNITS/ML 10 ML VIAL) 20 units DAILY SQ 10/06/24 09:00 11/05/24 08:59 10/06/24 09:16 20 UNITS Insulin Glargine (LANtus 100 UNITS/ML 10 ML VIAL) 30 units HS SQ 09/30/24 21:00 10/02/24 07:19 DC 10/01/24 19:54 30 UNITS Insulin Glargine (LANtus 100 UNITS/ML 10 ML VIAL) 50 units BID SQ 10/02/24 21:00 10/03/24 12:53 DC 10/03/24 09:02 50 UNITS Insulin Glargine (LANtus 100 UNITS/ML 10 ML VIAL) 50 units DAILY SQ 10/02/24 07:30 10/02/24 16:53 DC 10/02/24 09:41 50 UNITS Insulin Human Lispro (HumaLOG LISpro 100 UNIT/ML 3ML) 7 unit TIDAC SQ 10/01/24 07:30 10/01/24 17:01 DC 10/01/24 16:22 7 UNIT Insulin Human Lispro (HumaLOG LISpro 100 UNIT/ML 3ML) 10 unit TIDAC SQ 10/01/24 17:00 10/01/24 19:41 DC Insulin Human Lispro (HumaLOG LISpro 100 UNIT/ML 3ML) 15 unit TIDAC SQ 10/02/24 07:30 10/02/24 07:20 DC 10/02/24 07:01 15 UNIT Insulin Human Lispro (HumaLOG LISpro 100 UNIT/ML 3ML) 20 unit TIDAC SQ 10/02/24 11:30 10/02/24 16:53 DC 10/02/24 11:48 20 UNIT Insulin Human Lispro (HumaLOG LISpro 100 UNIT/ML 3ML) 25 unit TIDAC SQ 10/02/24 17:00 10/03/24 12:53 DC 10/02/24 17:17 25 UNIT Insulin Human Regular (humuLIN R 100 UNIT/ML 3ML) 5 unit TIDAC SQ 10/06/24 07:30 10/06/24 19:15 DC 10/06/24 17:10 5 UNIT Insulin Human Regular (humuLIN R 100 UNIT/ML 3ML) 10 unit TIDAC SQ 10/07/24 07:30 11/06/24 07:29 Insulin Human Regular (humuLIN R 100 UNIT/ML 3ML) INSULIN SLIDING SCAL... ACHS SQ 09/24/24 07:30 10/03/24 12:53 DC 10/03/24 05:48 10 UNIT Insulin Human Regular (humuLIN R 100 UNIT/ML 3ML) INSULIN SLIDING SCAL... ACHS SQ 10/06/24 07:30 11/05/24 07:29 10/06/24 17:09 4 UNIT Insulin Human Regular (humuLIN R 100 UNIT/ML 3ML) INSULIN SLIDING SCAL... ACHS SQ 10/05/24 16:30 10/06/24 06:12 DC Insulin Human Regular 100 unit/ Sodium Chloride 100 ml @ 0 mls/hr AD IV 10/03/24 13:00 10/05/24 12:59 DC 10/03/24 17:38 2 MLS/HR Insulin Human Regular 100 unit/ Sodium Chloride 101 ml @ 0 mls/hr PROTOCOL IV 09/21/24 20:00 09/23/24 21:20 DC 09/21/24 21:01 9.8 MLS/HR Insulin Human Regular 100 unit/ Sodium Chloride 101 ml @ 0 mls/hr PROTOCOL IV 09/22/24 00:00 09/22/24 00:03 DC Insulin Human Regular 100 unit/ Sodium Chloride 101 ml @ 0 mls/hr PROTOCOL IV 09/26/24 18:30 09/27/24 10:25 DC 09/26/24 18:36 10 MLS/HR Lactulose (Constulose 20gm/ 30ml Udcup) 20 gm BID PRN PO CONSTIPATION 10/03/24 13:00 11/02/24 12:59 Magnesium Hydroxide (Milk Of Magnesium 30ml) 30 ml DAILY PRN PO CONSTIPATION 10/03/24 13:00 11/02/24 12:59 Magnesium Sulfate 50 ml @ 12.5 mls/hr AD PRN IV MAG LEVEL LESS THAN 2.0 10/03/24 13:00 11/02/24 12:59 10/03/24 17:21 12.5 MLS/HR Magnesium Sulfate 50 ml @ 0 mls/hr PROTOCOL IV 09/22/24 00:00 09/23/24 21:23 DC Magnesium Sulfate 50 ml @ 0 mls/hr PROTOCOL IV 09/26/24 18:30 09/27/24 10:25 DC Magnesium Sulfate 50 ml @ 0 mls/hr PROTOCOL PRN IV OTH 09/22/24 00:00 09/22/24 00:04 DC 09/21/24 23:52 25 MLS/HR Mannitol 245 ml @ 0 mls/hr AD IV 09/22/24 00:30 09/22/24 20:17 DC Mannitol 500 ml @ 0 mls/hr AD IV 09/22/24 00:30 09/22/24 14:33 DC Mannitol (Osmitrol 20% 250ml Bag) 49 gm AD IV 09/22/24 00:00 09/22/24 00:28 DC Methylprednisolone Sodium Succinate (Solu-medROL 40MG) 40 mg BID IVP 09/22/24 09:00 09/27/24 10:35 DC 09/26/24 20:37 40 MG Metoprolol Succinate (TopROL XL) 25 mg BID PO 09/26/24 09:00 10/03/24 12:53 DC 10/03/24 08:55 25 MG Metoprolol Succinate (TopROL XL) 50 mg BID PO 09/24/24 21:00 09/26/24 07:14 DC 09/24/24 19:45 50 MG Metoprolol Tartrate (loprESSOR) 12.5 mg BID PO 09/22/24 21:00 09/24/24 16:38 DC 09/24/24 12:07 12.5 MG Metoprolol Tartrate (loprESSOR) 12.5 mg BID PO 10/06/24 09:00 11/05/24 08:59 10/06/24 19:50 12.5 MG Miscellaneous Medication (Folic Acid/ Vitamin B Comp W-C ([place] Tablet)) 1 tab DAILY PO 09/23/24 09:00 09/22/24 15:56 DC Morphine Sulfate (morPHINE 2MG SYG) 0.5 mg Q2H PRN IV MODERATE PAIN (4-6) 10/03/24 13:00 10/04/24 10:49 DC 10/03/24 20:56 0.5 MG Morphine Sulfate (morPHINE 2MG SYG) 1 mg Q2H PRN IV SEVERE PAIN (7-10) 10/03/24 13:00 10/04/24 10:49 DC Morphine Sulfate (morPHINE 2MG SYG) 2 mg Q4H PRN IVP SEVERE PAIN (7-10) 09/26/24 01:30 10/01/24 04:29 DC Multivitamins Therapeutic (Multivitamin Tablet) 1 tab DAILY PO 09/23/24 09:00 10/23/24 08:59 10/06/24 09:12 1 TAB Nifedipine (adALAT 30MG) 60 mg DAILY PO 09/23/24 09:00 09/28/24 12:01 DC 09/25/24 08:37 60 MG Nitroglycerin (Nitroglycerin 1gm Oint) 0.5 inch Q8H TD 09/21/24 19:30 09/27/24 10:34 DC 09/25/24 12:44 0.5 INCH Nitroglycerin/ Dextrose 0 ml @ 0 mls/hr AD IV 10/03/24 13:00 10/06/24 12:59 DC Norepinephrine 250 ml @ 0 mls/hr AD PRN IV DIRECTED 09/26/24 01:30 09/27/24 10:34 DC 09/26/24 01:40 0 MLS/HR Norepinephrine Bitartrate 250 ml @ 0 mls/hr AD PRN IV TITRATE 10/03/24 10:00 11/02/24 09:59 Norepinephrine Bitartrate 8 mg/ Dextrose 250 ml @ 0 mls/hr AD PRN IV POST-OP CARDIOVASCULAR ORDERS 10/03/24 13:00 10/03/24 13:03 DC Ondansetron HCl (zoFRAN 4MG INJ) 4 mg Q6H PRN IV NAUSEA/VOMITING 10/03/24 13:00 11/02/24 12:59 10/04/24 16:35 4 MG Ondansetron HCl (zoFRAN 4MG INJ) 4 mg Q6H PRN IVP NAUSEA/VOMITING 09/26/24 01:30 10/03/24 12:53 DC 09/27/24 08:51 4 MG Oseltamivir Phosphate (Tamiflu) 75 mg DAILY PO 09/22/24 09:00 09/23/24 13:29 DC 09/23/24 08:38 75 MG Oseltamivir Phosphate (Tamiflu) 75 mg Q24H PO 09/26/24 17:00 09/27/24 17:01 DC 09/27/24 18:04 75 MG Oseltamivir Phosphate (Tamiflu) 75 mg QTUTHSA[DIALYSIS] PO 09/23/24 16:00 09/23/24 17:04 DC Oseltamivir Phosphate (Tamiflu) 75 mg QTUTHSA[DIALYSIS] PO 09/23/24 22:00 09/26/24 16:32 DC 09/25/24 16:09 75 MG Pantoprazole Sodium (PROTonix 40MG INJ) 40 mg BID IVP 09/27/24 21:00 10/03/24 12:53 DC 10/03/24 08:55 40 MG Pharmacy Profile Note (Pharmacy Communication) 1 each ONCE MISC 09/23/24 13:00 09/23/24 13:25 DC Pharmacy Profile Note (Pharmacy Communication) 1 each ONCE MISC 09/23/24 21:30 09/24/24 07:08 DC Pharmacy Profile Note (Pharmacy Communication) 1 each PROTOCOL PRN MISC ETOH Withdrawal Score changes 09/22/24 20:30 09/29/24 20:29 DC Piperacillin Sod/ Tazobactam Sod 50 ml @ 12.5 mls/hr Q12H IV 09/21/24 21:00 09/23/24 08:06 DC 09/22/24 20:43 12.5 MLS/HR Piperacillin Sod/ Tazobactam Sod (Zosyn 3.375gm+NS 50ml) 3.375 gm Q12H IV 09/26/24 11:30 10/06/24 08:29 DC 10/05/24 23:22 3.375 GM Potassium Chloride 20 meq/ Sodium Chloride 1,010 ml @ 0 mls/hr PROTOCOL IV 09/22/24 00:00 09/23/24 21:23 DC Potassium Chloride/Dextrose/ Sod Cl 1,000 ml @ 0 mls/hr AD IV 09/22/24 00:00 09/23/24 21:23 DC Potassium Phosphate 250 ml @ 42 mls/hr AD PRN IV LOW PHOS LEVEL 10/03/24 13:00 11/02/24 12:59 Potassium Chloride 100 ml @ 100 mls/hr AD PRN IV HYPOKALEMIA 10/03/24 13:00 11/02/24 12:59 Prednisone (deltaSONE/ oraSONE 20MG TAB) 20 mg DAILY PO 09/28/24 09:00 10/01/24 08:59 DC 09/30/24 08:50 20 MG Propofol 100 ml @ 0 mls/hr AD PRN IV SEDATION 10/03/24 13:00 10/07/24 12:59 Sodium Bicarbonate (Sodium Bicarbonate) 650 mg TID PO 09/24/24 09:00 09/27/24 10:34 DC 09/26/24 20:36 650 MG Sodium Bicarbonate (Sodium Bicarb 50meq 50ml Vial) 50 meq AD PRN IV OTHER[SEE DOSING INSTRUCTIONS] 10/03/24 13:00 10/06/24 12:59 DC 10/03/24 20:57 50 MEQ Sodium Chloride 250 ml @ 0 mls/hr Q0M IV 09/25/24 23:00 09/27/24 10:34 DC Sodium Chloride 500 ml @ 0 mls/hr AD IV 10/03/24 13:00 11/02/24 12:59 Sodium Chloride 1,000 ml @ 0 mls/hr ONCE IV 09/23/24 19:30 09/27/24 13:51 DC 09/26/24 12:15 1,000 MLS/HR Sodium Chloride 1,000 ml @ 0 mls/hr ONCE IV 09/27/24 14:30 09/27/24 13:51 DC Sodium Chloride 1,000 ml @ 0 mls/hr ONCE IV 09/27/24 15:00 10/27/24 14:59 10/07/24 09:59 1,000 MLS/HR Sodium Chloride 1,000 ml @ 10 mls/hr ONCE IV 10/03/24 13:00 10/04/24 12:59 DC Sodium Chloride 1,000 ml @ 100 mls/hr Q10H IV 09/21/24 19:30 09/27/24 10:34 DC 09/23/24 12:53 100 MLS/HR Sodium Chloride 1,000 ml @ 200 mls/hr PROTOCOL IV 09/22/24 00:00 09/23/24 21:23 DC Sodium Chloride (NS Flush 10ml) 10 ml Q8H PRN IVP IV LINE FLUSH 10/03/24 13:00 11/02/24 12:59 Thiamine HCl 100 mg/Folic Acid 1 mg/Multivitamins/ Minerals 10 ml/ Sodium Chloride 1,011.2 ml @ 100 mls/ hr Q24H IV 09/22/24 20:30 09/25/24 06:37 DC 09/22/24 20:43 100 MLS/HR Tramadol HCl (UltRAM) 25 mg Q6H PRN PO MODERATE PAIN (4-6) 10/03/24 13:00 10/08/24 12:59 Tramadol HCl (UltRAM) 50 mg Q6H PRN PO SEVERE PAIN (7-10) 10/03/24 13:00 10/08/24 12:59 10/06/24 01:17 50 MG Vancomycin HCl 250 ml @ 125 mls/hr Q72H IV 09/22/24 20:30 09/23/24 08:04 DC 09/22/24 20:48 125 MLS/HR Vancomycin HCl (Vancomycin 500mg+NS 100ml Ivpb) 1,000 mg DAILY08 IV 09/23/24 08:00 09/22/24 20:26 DC Vancomycin HCl (Vancomycin 750mg) 750 mg MWFPHD IVPB 09/26/24 16:00 10/03/24 23:29 DC Vancomycin HCl (Vancomycin 750mg) 750 mg Q24H IVPB 09/23/24 23:30 09/25/24 06:26 DC 09/24/24 22:43 750 MG Vasopressin 20 units/Sodium Chloride 100 ml @ 0 mls/hr PROTOCOL IV 10/03/24 19:30 11/02/24 19:29 10/04/24 06:34 9 MLS/HR Vitamin B Complex/ Vit C/Folic Acid (Nephrovite Tablet) 1 cap DAILY PO 09/23/24 09:00 10/23/24 08:59 10/06/24 09:12 1 CAP DIAGNOSTICS / RADIOLOGY: [ ] ASSESSMENT: Hyperosmolar Hyperglycemic Syndrome POA, resolved NSTEMI POA Influenza bronchopneumonia with sepsis POA, resolving Acute Hypoxemic Respiratory Failure POA Acute on chronic renal failure with concern for ATN POA Metabolic acidosis POA Lactic acidosis POA CKD stage 4 POA Uncontrolled Diabetes POA Protein Calorie malnutrition POA PLAN: POD [address] Page Hemodialysis as per nephrology recommendations Dr. Hinton recommendations on thrombocytopenia 6 minute walk test and physical therapy Iron profile and APR labs Continue broad-spectrum antibiotics Continue to trend WBC in Continue to replace electrolytes IV protocol Continue the patient on long-acting as well as insulin sliding scale Follow a.m. labs GI and DVT prophylaxis Disposition: Pending improvement in clinical condition ATTESTATION BY PHYSICIAN I have seen and examined the patient. I reviewed the documentation, medical decision making, and treatment plan as noted by the resident provider above. I agree with the findings and plan of care. Dieudonne Farley MD, NIHITHA MD Oct 07, 2024 12:06
--- NOTE | 2024-10-07 14:04 | PN ---
patient is evaluated at bedside. Has been weaned off pressors. Blood pressures are holding up with maps above 70. CXR reveals atelectasis in pulmonary congestion. Patient did have hemodialysis session yesterday with 2.4 L of fluid removed. His femoral a line has been removed and patient is up out of bed to chair. He is slightly edematous to upper and lower extremities. Encouraged use of incentive spirometer. Continues on 2 L NC. He is comfortable without pain. Patient's hemoglobin continues to fluctuate. Did receive 1 unit PRBC yesterday with improvement in hemoglobin to 8.1 now decreasing to 7.3. WBCs have remained within normal limits, patient without signs or symptoms of infection. His platelets have decreased to 38 today, patient is not on any antiplatelets or anticoagulants. He continues with chest tube with about 1800 mL of total output about 600 mL overnight. Alexander was done which was negative. Patient with iron deficiency anemia with the patient should be on IV iron. Patient will also with the chronic renal insufficiency on home dialysis with the patient should be on Procrit. Platelet count continued to be 39. Chest tube was removed. There is no obvious bleeding. PHYSICAL EXAM: GENERAL: alert, weak, awake oriented x 3, weak, deconditioned HEENT: EOMI, Sclera non icteric, moist mucosa NECK: Supple, no JVD, trachea midline LUNGS: coarse rhonchi breath sounds decreased bilaterally. No wheezes HEART: Regular rate and rhythm. Normal S1 and S2, without murmurs ABD: Abdomen soft, nontender. Bowel sounds present EXT: No clubbing cyanosis, positve 2+ edema to upper and lower extremities NEURO: Alert and oriented to person, follows commands Assessment 1. Coronary artery disease status post bypass procedure 2. Anemia 3. Thrombocytopenia 4. End-stage renal disease on hemodialysis 5. Ischemic cardiomyopathy 6. Diabetes mellitus 7. Hyperlipidemia 8. Hypertension Plan 1. Peripheral blood smear showed red blood cells to be normocytic normochromic. There was no fragment cell or schistocyte. There is no teardrop cell. There is no rouleaux phenomena. There is no pelger-Huet cell. White blood cell with no blasts. there is decreased number of the platelet. There is no clumping of the platelet. Platelet actually is normal size consistent with bone marrow suppression. There was no schistocytes or fragment cell. 2. There was hypersegmented neutrophils. This patient to be started on folic acid 1 mg p.o. daily and vitamin B12 1000 mcg p.o. daily. 3. There was a spherocytes. Direct Alexander was done which was negative. There is no need for dexamethasone. 4. Peripheral pictures consistent with dimorphic picture Which could be due to transfusion. 5. No need for blood product transfusion. 6. This picture does not fit with heparin-induced thrombocytopenia. We will ask for HIT antibody to be done. This could be drug-induced especially Zosyn in this case.Platelet count is stable. There is no sign of symptoms of DVT or arterial clot. 7. Will ask for CBC in tomorrow. There is continued to be low platelet below the number today. I will do platelet transfusion for diagnostic and therapeutic. Vitals/Labs Vital Signs Date Time Temp Pulse Resp B/P (MAP) Pulse Ox O2 Delivery O2 Flow Rate FiO2 10/07/24 13:00 98.2 102 16 132/82 Nasal Cannula 2.0 10/07/24 12:15 97 10/06/24 20:00 28 Laboratory Tests 10/06/24 20:59 10/07/24 03:45 10/07/24 08:58 Medications Current Medications Ceftriaxone Sodium 1 gm ONCE ONCE IVPB; Start 09/21/24 at 18:00; Stop 09/21/24 at 18:13; Status DC Azithromycin 250 ml @ 250 mls/hr Q24H IVPB; Start 09/21/24 at 18:00; Stop 09/21/24 at 18:14; Status DC Promethazine HCl/ Codeine 10 ml ONCE ONCE PO; Start 09/21/24 at 18:00; Stop 09/21/24 at 18:01; Status DC Piperacillin Sod/ Tazobactam Sod 3.375 gm ONCE ONCE IVPB Last administered on 09/21/24at 18:35; Start 09/21/24 at 18:30; Stop 09/21/24 at 18:31; Status DC Insulin Human Regular 10 unit ONCE ONCE IV Last administered on 09/21/24at 18:36; Start 09/21/24 at 18:30; Stop 09/21/24 at 18:31; Status DC Metoprolol Tartrate 5 mg ONCE ONCE IV Last administered on 09/21/24at 18:32; Start 09/21/24 at 18:30; Stop 09/21/24 at 18:31; Status DC Heparin Sodium (Porcine) *calculation based on ACTUAL B... AD PRN IV; Start 09/21/24 at 19:30; Stop 09/26/24 at 07:14; Status DC Heparin Sodium/ Dextrose 250 ml @ 0 mls/hr Q6H IV Last administered on 09/25/24at 04:13; Start 09/21/24 at 19:30; Stop 09/26/24 at 18:36; Status DC Sodium Chloride 1,000 ml @ 0 mls/hr ONCE ONCE IV Last administered on 09/21/24at 18:37; Start 09/21/24 at 18:30; Stop 09/21/24 at 18:31; Status DC Ondansetron HCl 4 mg STK-MED ONCE .ROUTE Last administered on 09/21/24at 18:31; Start 09/21/24 at 18:29; Stop 09/21/24 at 18:29; Status DC Oseltamivir Phosphate 75 mg ONCE ONCE PO Last administered on 09/21/24at 18:45; Start 09/21/24 at 19:00; Stop 09/21/24 at 19:01; Status DC Acetaminophen 650 mg Q6H PRN PO; Start 09/21/24 at 19:30; Stop 10/03/24 at 12:53; Status DC Acetaminophen 650 mg Q4H PRN PO Last administered on 09/30/24at 01:32; Start 09/21/24 at 19:30; Stop 10/03/24 at 12:53; Status DC Guaifenesin/ Dextromethorphan 10 ml Q4H PRN PO Last administered on 09/23/24at 22:06; Start 09/21/24 at 19:30; Stop 10/03/24 at 12:53; Status DC Albuterol 1 udvial [id number] IH Last administered on 09/25/24at 06:43; Start 09/21/24 at 22:00; Stop 09/25/24 at 09:59; Status DC Famotidine 10 mg Q48H PO; Start 09/21/24 at 19:30; Stop 09/21/24 at 20:00; Status DC Nitroglycerin 0.5 inch Q8H TD Last administered on 09/25/24at 12:44; Start 09/21/24 at 19:30; Stop 09/27/24 at 10:34; Status DC Piperacillin Sod/ Tazobactam Sod 50 ml @ 12.5 mls/hr Q12H IV Last administered on 09/22/24at 20:43; Start 09/21/24 at 21:00; Stop 09/23/24 at 08:06; Status DC Sodium Chloride 1,000 ml @ 100 mls/hr Q10H IV Last administered on 09/23/24at 12:53; Start 09/21/24 at 19:30; Stop 09/27/24 at 10:34; Status DC Oseltamivir Phosphate 75 mg DAILY PO Last administered on 09/23/24at 08:38; Start 09/22/24 at 09:00; Stop 09/23/24 at 13:29; Status DC Doxycycline Hyclate 100 mg BID PO Last administered on 09/30/24at 20:53; Start 09/21/24 at 21:00; Stop 09/30/24 at 23:59; Status DC Aspirin 81 mg DAILY PO Last administered on 10/06/24at 09:12; Start 09/22/24 at 09:00; Stop 10/22/24 at 08:59 Insulin Human Regular 100 unit/ Sodium Chloride 101 ml @ 0 mls/hr PROTOCOL IV Last administered on 09/21/24at 21:01; Start 09/21/24 at 20:00; Stop 09/23/24 at 21:20; Status DC Famotidine 10 mg DAILY IV Last administered on 09/27/24at 09:09; Start 09/22/24 at 09:00; Stop 09/27/24 at 10:35; Status DC Alprazolam 0.5 mg ONCE ONCE PO Last administered on 09/21/24at 21:44; Start 09/21/24 at 22:00; Stop 09/21/24 at 22:01; Status DC Magnesium Sulfate 50 ml @ 0 mls/hr PROTOCOL PRN IV Last administered on 09/21/24at 23:52; Start 09/22/24 at 00:00; Stop 09/22/24 at 00:04; Status DC Magnesium Sulfate 50 ml @ As Directed STK-MED ONCE IV; Start 09/21/24 at 23:49; Stop 09/21/24 at 23:49; Status DC Sodium Chloride 1,000 ml @ 200 mls/hr PROTOCOL IV; Start 09/22/24 at 00:00; Stop 09/23/24 at 21:23; Status DC Potassium Chloride/Dextrose/ Sod Cl 1,000 ml @ 0 mls/hr AD IV; Start 09/22/24 at 00:00; Stop 09/23/24 at 21:23; Status DC Potassium Chloride 20 meq/ Sodium Chloride 1,010 ml @ 0 mls/hr PROTOCOL IV; Start 09/22/24 at 00:00; Stop 09/23/24 at 21:23; Status DC Magnesium Sulfate 50 ml @ 0 mls/hr PROTOCOL IV; Start 09/22/24 at 00:00; Stop 09/23/24 at 21:23; Status DC Insulin Human Regular 100 unit/ Sodium Chloride 101 ml @ 0 mls/hr PROTOCOL IV; Start 09/22/24 at 00:00; Stop 09/22/24 at 00:03; Status DC Mannitol 49 gm AD IV; Start 09/22/24 at 00:00; Stop 09/22/24 at 00:28; Status DC Dextrose/Sodium Chloride 1,000 ml @ 0 mls/hr AD IV Last administered on 09/22/24at 09:49; Start 09/22/24 at 00:00; Stop 09/23/24 at 21:23; Status DC Methylprednisolone Sodium Succinate 125 mg ONCE ONCE IVP Last administered on 09/22/24at 01:35; Start 09/22/24 at 00:30; Stop 09/22/24 at 00:31; Status DC Methylprednisolone Sodium Succinate 40 mg BID IVP Last administered on 09/26/24at 20:37; Start 09/22/24 at 09:00; Stop 09/27/24 at 10:35; Status DC Mannitol 245 ml @ 0 mls/hr AD IV; Start 09/22/24 at 00:30; Stop 09/22/24 at 20:17; Status DC Atorvastatin Calcium 40 mg HS PO; Start 09/22/24 at 21:00; Stop 09/22/24 at 20:17; Status DC Mannitol 500 ml @ 0 mls/hr AD IV; Start 09/22/24 at 00:30; Stop 09/22/24 at 14:33; Status DC Sodium Chloride 4 ml STK-MED ONCE IH; Start 09/22/24 at 05:59; Stop 09/22/24 at 06:00; Status DC Vitamin B Complex/ Vit C/Folic Acid 1 cap DAILY PO Last administered on 10/06/24at 09:12; Start 09/23/24 at 09:00; Stop 10/23/24 at 08:59 Furosemide 80 mg Q12H IV Last administered on 09/26/24at 13:20; Start 09/22/24 at 21:00; Stop 09/26/24 at 15:22; Status DC Nifedipine 60 mg DAILY PO Last administered on 09/25/24at 08:37; Start 09/23/24 at 09:00; Stop 09/28/24 at 12:01; Status DC Ferrous Sulfate 325 mg DAILY PO Last administered on 10/06/24at 09:12; Start 09/23/24 at 09:00; Stop 10/23/24 at 08:59 Miscellaneous Medication 1 tab DAILY PO; Start 09/23/24 at 09:00; Stop 09/22/24 at 15:56; Status DC Chlordiazepoxide HCl 25 mg Q2H PRN PO Last administered on 09/28/24at 23:59; Start 09/22/24 at 20:30; Stop 09/29/24 at 20:29; Status DC Chlordiazepoxide HCl 50 mg Q1H PRN PO; Start 09/22/24 at 20:30; Stop 09/29/24 at 20:29; Status DC Thiamine HCl 100 mg/Folic Acid 1 mg/Multivitamins/ Minerals 10 ml/ Sodium Chloride 1,011.2 ml @ 100 mls/ hr Q24H IV Last administered on 09/22/24at 20:43; Start 09/22/24 at 20:30; Stop 09/25/24 at 06:37; Status DC Multivitamins Therapeutic 1 tab DAILY PO Last administered on 10/06/24at 09:12; Start 09/23/24 at 09:00; Stop 10/23/24 at 08:59 Pharmacy Profile Note 1 each PROTOCOL PRN MISC; Start 09/22/24 at 20:30; Stop 09/29/24 at 20:29; Status DC Fish Oil 2,000 mg BID PO Last administered on 10/02/24at 20:38; Start 09/22/24 at 21:00; Stop 10/03/24 at 12:53; Status DC Metoprolol Tartrate 12.5 mg BID PO Last administered on 09/24/24at 12:07; Start 09/22/24 at 21:00; Stop 09/24/24 at 16:38; Status DC Insulin Glargine 10 units BID@0730,2100 SQ Last administered on 09/25/24at 20:44; Start 09/22/24 at 21:00; Stop 09/26/24 at 11:15; Status DC Vancomycin HCl 1,000 mg DAILY08 IV; Start 09/23/24 at 08:00; Stop 09/22/24 at 20:26; Status DC Vancomycin HCl 250 ml @ 125 mls/hr Q72H IV Last administered on 09/22/24at 20:48; Start 09/22/24 at 20:30; Stop 09/23/24 at 08:04; Status DC Atorvastatin Calcium 40 mg STK-MED ONCE .ROUTE; Start 09/22/24 at 20:41; Stop 09/22/24 at 20:41; Status DC Sodium Bicarbonate 100 meq ONCE ONCE IV Last administered on 09/23/24at 08:40; Start 09/23/24 at 08:00; Stop 09/23/24 at 08:08; Status DC Cefepime HCl 1 gm Q24H IVPB Last administered on 09/25/24at 08:36; Start 09/23/24 at 08:30; Stop 09/26/24 at 11:14; Status DC Pharmacy Profile Note 1 each ONCE MISC; Start 09/23/24 at 13:00; Stop 09/23/24 at 13:25; Status DC Oseltamivir Phosphate 75 mg QTUTHSA[DIALYSIS] PO; Start 09/23/24 at 16:00; Stop 09/23/24 at 17:04; Status DC Oseltamivir Phosphate 75 mg QTUTHSA[DIALYSIS] PO Last administered on 09/25/24at 16:09; Start 09/23/24 at 22:00; Stop 09/26/24 at 16:32; Status DC Atorvastatin Calcium 20 mg HS PO Last administered on 09/26/24at 20:36; Start 09/23/24 at 21:00; Stop 09/27/24 at 10:38; Status DC Clopidogrel Bisulfate 300 mg ONCE ONCE PO Last administered on 09/23/24at 19:04; Start 09/23/24 at 17:30; Stop 09/23/24 at 17:31; Status DC Clopidogrel Bisulfate 75 mg DAILY PO Last administered on 09/25/24at 08:38; Start 09/24/24 at 09:00; Stop 09/26/24 at 07:14; Status DC Lidocaine HCl 20 ml STK-MED ONCE .ROUTE; Start 09/23/24 at 17:17; Stop 09/23/24 at 17:17; Status DC Heparin Sodium/ Sodium Chloride 500 ml @ As Directed STK-MED ONCE IV; Start 09/23/24 at 17:17; Stop 09/23/24 at 17:18; Status DC Heparin Sodium (Porcine) 1,000 unit STK-MED ONCE .ROUTE; Start 09/23/24 at 17:24; Stop 09/23/24 at 17:24; Status DC Albumin Human 100 ml ONCE ONCE IV Last administered on 09/23/24at 19:53; Start 09/23/24 at 19:30; Stop 09/23/24 at 19:31; Status DC Sodium Chloride 1,000 ml @ 0 mls/hr ONCE IV Last administered on 09/26/24at 12:15; Start 09/23/24 at 19:30; Stop 09/27/24 at 13:51; Status DC Pharmacy Profile Note 1 each ONCE MISC; Start 09/23/24 at 21:30; Stop 09/24/24 at 07:08; Status DC Sodium Bicarbonate 650 mg TID PO Last administered on 09/26/24at 20:36; Start 09/24/24 at 09:00; Stop 09/27/24 at 10:34; Status DC Insulin Human Regular INSULIN SLIDING SCAL... ACHS SQ Last administered on 10/03/24at 05:48; Start 09/24/24 at 07:30; Stop 10/03/24 at 12:53; Status DC Vancomycin HCl 750 mg Q24H IVPB Last administered on 09/24/24at 22:43; Start 09/23/24 at 23:30; Stop 09/25/24 at 06:26; Status DC Fluconazole/ Sodium Chloride 800 mg ONCE ONCE IV; Start 09/24/24 at 14:00; Stop 09/24/24 at 13:50; Status DC Epoetin Moses-epbx 10,000 unit ONCE ONCE SQ Last administered on 09/24/24at 18:43; Start 09/24/24 at 16:00; Stop 09/24/24 at 16:01; Status DC Metoprolol Tartrate 5 mg STK-MED ONCE IV; Start 09/24/24 at 15:57; Stop 09/24/24 at 15:57; Status DC Metoprolol Succinate 50 mg BID PO Last administered on 09/24/24at 19:45; Start 09/24/24 at 21:00; Stop 09/26/24 at 07:14; Status DC Metoprolol Succinate 50 mg STK-MED ONCE PO; Start 09/24/24 at 19:28; Stop 09/24/24 at 19:28; Status DC Gabapentin 100 mg TID PO Last administered on 09/30/24at 14:07; Start 09/24/24 at 21:00; Stop 09/30/24 at 17:37; Status DC Vancomycin HCl 750 mg [id number] IVPB; Start 09/26/24 at 16:00; Stop 10/03/24 at 23:29; Status DC Metoprolol Succinate 100 mg ONCE ONCE PO Last administered on 09/25/24at 08:37; Start 09/25/24 at 08:30; Stop 09/25/24 at 08:31; Status DC Albuterol 1 udvial [id number] IH Last administered on 09/26/24at 11:17; Start 09/25/24 at 10:00; Stop 09/26/24 at 15:22; Status DC Metoprolol Tartrate 50 mg ONCE ONCE PO Last administered on 09/25/24at 16:09; Start 09/25/24 at 15:00; Stop 09/25/24 at 15:01; Status DC Epoetin Moses-epbx 10,000 unit ONCE ONCE SQ Last administered on 09/25/24at 17:52; Start 09/25/24 at 15:00; Stop 09/25/24 at 15:01; Status DC Fluconazole/ Sodium Chloride 200 mg Q24H IV Last administered on 09/26/24at 14:38; Start 09/25/24 at 16:00; Stop 09/27/24 at 10:36; Status DC Ondansetron HCl 4 mg STK-MED ONCE .ROUTE; Start 09/25/24 at 22:35; Stop 09/25/24 at 22:41; Status DC Sodium Chloride 250 ml @ 0 mls/hr Q0M IV; Start 09/25/24 at 23:00; Stop 09/27/24 at 10:34; Status DC Albumin Human 100 ml @ 0 mls/hr AD STAT IV Last administered on 09/25/24at 23:17; Start 09/25/24 at 23:09; Stop 09/25/24 at 23:12; Status DC Norepinephrine 250 ml @ 0 mls/hr AD PRN IV Last administered on 09/26/24at 01:40; Start 09/26/24 at 01:30; Stop 09/27/24 at 10:34; Status DC Ondansetron HCl 4 mg Q6H PRN IVP Last administered on 09/27/24at 08:51; Start 09/26/24 at 01:30; Stop 10/03/24 at 12:53; Status DC Morphine Sulfate 2 mg Q4H PRN IVP; Start 09/26/24 at 01:30; Stop 10/01/24 at 04:29; Status DC Ondansetron HCl 4 mg STK-MED ONCE .ROUTE; Start 09/26/24 at 01:21; Stop 09/26/24 at 01:21; Status DC Norepinephrine 250 ml @ As Directed STK-MED ONCE IV; Start 09/26/24 at 01:22; Stop 09/26/24 at 01:22; Status DC Metoprolol Succinate 25 mg BID PO Last administered on 10/03/24at 08:55; Start 09/26/24 at 09:00; Stop 10/03/24 at 12:53; Status DC Piperacillin Sod/ Tazobactam Sod 3.375 gm Q12H IV Last administered on 10/05/24at 23:22; Start 09/26/24 at 11:30; Stop 10/06/24 at 08:29; Status DC Insulin Glargine 15 units BID@0730,2100 SQ Last administered on 09/30/24at 07:03; Start 09/26/24 at 21:00; Stop 09/30/24 at 17:13; Status DC Albuterol 1 udvial [id number] PRN IH; Start 09/26/24 at 15:30; Stop 10/21/24 at 21:59 Oseltamivir Phosphate 75 mg Q24H PO Last administered on 09/27/24at 18:04; Start 09/26/24 at 17:00; Stop 09/27/24 at 17:01; Status DC Magnesium Sulfate 50 ml @ 0 mls/hr PROTOCOL IV; Start 09/26/24 at 18:30; Stop 09/27/24 at 10:25; Status DC Insulin Human Regular 100 unit/ Sodium Chloride 101 ml @ 0 mls/hr PROTOCOL IV Last administered on 09/26/24at 18:36; Start 09/26/24 at 18:30; Stop 09/27/24 at 10:25; Status DC Pantoprazole Sodium 40 mg BID IVP Last administered on 10/03/24at 08:55; Start 09/27/24 at 21:00; Stop 10/03/24 at 12:53; Status DC Pantoprazole Sodium 40 mg ONCE ONCE IVP Last administered on 09/27/24at 12:08; Start 09/27/24 at 12:00; Stop 09/27/24 at 12:01; Status DC Sodium Chloride 1,000 ml @ 0 mls/hr ONCE IV; Start 09/27/24 at 14:30; Stop 09/27/24 at 13:51; Status DC Sodium Chloride 1,000 ml @ 0 mls/hr ONCE IV Last administered on 10/07/24at 09:59; Start 09/27/24 at 15:00; Stop 10/27/24 at 14:59 Heparin Sodium (Porcine) 10,000 unit AD IRRIG Last administered on 10/01/24at 17:18; Start 09/27/24 at 14:00; Stop 10/27/24 at 13:59 Prednisone 20 mg DAILY PO Last administered on 09/30/24at 08:50; Start 09/28/24 at 09:00; Stop 10/01/24 at 08:59; Status DC Iohexol 35,000 mg STK-MED ONCE IV; Start 09/29/24 at 11:19; Stop 09/29/24 at 11:20; Status DC Iohexol 50 ml STK-MED ONCE IV; Start 09/29/24 at 12:17; Stop 09/29/24 at 12:17; Status DC Metoprolol Tartrate 5 mg STK-MED ONCE IV; Start 09/29/24 at 12:23; Stop 09/29/24 at 12:24; Status DC Epoetin Moses-epbx 10,000 unit ONCE ONCE SQ Last administered on 09/29/24at 16:48; Start 09/29/24 at 16:30; Stop 09/29/24 at 16:31; Status DC Albumin Human 100 ml ONCE ONCE IV; Start 09/29/24 at 15:15; Stop 09/29/24 at 16:54; Status DC Epoetin Moses-epbx 10,000 unit [id number] SQ Last administered on 10/01/24at 15:34; Start 10/01/24 at 09:00; Stop 10/06/24 at 15:12; Status DC Clopidogrel Bisulfate 75 mg DAILY PO Last administered on 09/30/24at 08:49; Start 09/30/24 at 09:00; Stop 10/01/24 at 08:26; Status DC Atorvastatin Calcium 40 mg HS PO Last administered on 10/06/24at 19:50; Start 09/30/24 at 21:00; Stop 10/30/24 at 20:59 Sodium Bicarbonate 100 meq ONCE ONCE IV Last administered on 09/30/24at 10:28; Start 09/30/24 at 09:00; Stop 09/30/24 at 09:01; Status DC Calcium Carbonate 1,000 mg TID PO Last administered on 10/06/24at 19:50; Start 09/30/24 at 14:00; Stop 10/07/24 at 00:52; Status DC Ergocalciferol 50,000 unit ONCE ONCE PO Last administered on 09/30/24at 14:07; Start 09/30/24 at 14:00; Stop 09/30/24 at 14:01; Status DC Insulin Glargine 20 units AM SQ; Start 10/01/24 at 09:00; Stop 09/30/24 at 17:26; Status DC Insulin Glargine 10 units HS SQ; Start 09/30/24 at 21:00; Stop 09/30/24 at 17:26; Status DC Insulin Glargine 30 units HS SQ Last administered on 10/01/24at 19:54; Start 09/30/24 at 21:00; Stop 10/02/24 at 07:19; Status DC Insulin Human Lispro 7 unit TIDAC SQ Last administered on 10/01/24at 16:22; Start 10/01/24 at 07:30; Stop 10/01/24 at 17:01; Status DC Dextrose 50 ml AD PRN IV; Start 09/30/24 at 17:30; Stop 10/01/24 at 08:25; Status DC Glucagon 1 mg AD PRN IM; Start 09/30/24 at 17:30; Stop 10/01/24 at 08:25; Status DC Gabapentin 100 mg DAILY PO Last administered on 10/06/24at 09:12; Start 10/01/24 at 09:00; Stop 10/24/24 at 20:59 Melatonin 5 mg ONCE ONCE PO Last administered on 09/30/24at 23:05; Start 09/30/24 at 23:00; Stop 09/30/24 at 23:01; Status DC Lidocaine HCl 20 ml STK-MED ONCE .ROUTE; Start 10/01/24 at 07:12; Stop 10/01/24 at 07:13; Status DC Iohexol 35,000 mg STK-MED ONCE IV; Start 10/01/24 at 07:12; Stop 10/01/24 at 07:14; Status DC Heparin Sodium (Porcine) 10,000 unit STK-MED ONCE .ROUTE; Start 10/01/24 at 07:12; Stop 10/01/24 at 07:14; Status DC Heparin Sodium/ Sodium Chloride 1,000 ml @ As Directed STK-MED ONCE IV; Start 10/01/24 at 07:12; Stop 10/01/24 at 07:14; Status DC Nitroglycerin 50 mg STK-MED ONCE .ROUTE; Start 10/01/24 at 07:12; Stop 10/01/24 at 07:14; Status DC Fentanyl Citrate 100 mcg STK-MED ONCE .ROUTE; Start 10/01/24 at 07:40; Stop 10/01/24 at 07:40; Status DC Midazolam HCl 2 mg STK-MED ONCE .ROUTE; Start 10/01/24 at 07:40; Stop 10/01/24 at 07:40; Status DC Verapamil HCl 5 mg STK-MED ONCE .ROUTE; Start 10/01/24 at 07:59; Stop 10/01/24 at 07:59; Status DC Dextrose 50 ml AD PRN IV Last administered on 10/05/24at 05:14; Start 10/01/24 at 08:30; Stop 10/31/24 at 08:29 Glucagon 1 mg AD PRN IM; Start 10/01/24 at 08:30; Stop 10/31/24 at 08:29 Hydralazine HCl 5 mg ONCE ONCE IV Last administered on 10/01/24at 18:26; Start 10/01/24 at 16:30; Stop 10/01/24 at 16:31; Status DC Hydralazine HCl 10 mg Q6H PRN IV; Start 10/01/24 at 16:30; Stop 10/03/24 at 12:53; Status DC Calcium Gluconate 1 gm/Sodium Chloride 100 ml @ 0 mls/hr PROTOCOL IV; Start 10/01/24 at 17:00; Stop 10/03/24 at 12:53; Status DC Insulin Human Lispro 10 unit TIDAC SQ; Start 10/01/24 at 17:00; Stop 10/01/24 at 19:41; Status DC Insulin Human Lispro 15 unit TIDAC SQ Last administered on 10/02/24at 07:01; Start 10/02/24 at 07:30; Stop 10/02/24 at 07:20; Status DC Insulin Glargine 50 units DAILY SQ Last administered on 10/02/24at 09:41; Start 10/02/24 at 07:30; Stop 10/02/24 at 16:53; Status DC Insulin Human Lispro 20 unit TIDAC SQ Last administered on 10/02/24at 11:48; Start 10/02/24 at 11:30; Stop 10/02/24 at 16:53; Status DC Cefazolin Sodium 2 gm ONCALL IVPB; Start 10/02/24 at 10:30; Stop 10/03/24 at 13:09; Status DC Insulin Glargine 50 units BID SQ Last administered on 10/03/24at 09:02; Start 10/02/24 at 21:00; Stop 10/03/24 at 12:53; Status DC Insulin Human Lispro 25 unit TIDAC SQ Last administered on 10/02/24at 17:17; Start 10/02/24 at 17:00; Stop 10/03/24 at 12:53; Status DC Cefazolin Sodium 1 gm STK-MED ONCE .ROUTE; Start 10/03/24 at 07:24; Stop 10/03/24 at 07:29; Status DC Heparin Sodium/ Sodium Chloride 500 ml @ As Directed STK-MED ONCE IV; Start 10/03/24 at 07:24; Stop 10/03/24 at 07:29; Status DC Papaverine HCl 60 mg STK-MED ONCE .ROUTE; Start 10/03/24 at 07:24; Stop 10/03/24 at 07:29; Status DC Epinephrine HCl 10 mg/Sodium Chloride 250 ml @ 0 mls/hr AD PRN IV Last administered on 10/04/24at 06:35; Start 10/03/24 at 10:00; Stop 11/02/24 at 09:59 Norepinephrine Bitartrate 250 ml @ 0 mls/hr AD PRN IV; Start 10/03/24 at 10:00; Stop 11/02/24 at 09:59 Aminocaproic Acid 19705 mg/Sodium Chloride 480 ml @ 0 mls/hr AD PRN IV; Start 10/03/24 at 10:00; Stop 11/02/24 at 09:59 Lidocaine HCl/ Dextrose 250 ml @ As Directed STK-MED ONCE IV; Start 10/03/24 at 11:16; Stop 10/03/24 at 11:17; Status DC Nitroglycerin/ Dextrose 1 ml @ As Directed STK-MED ONCE .ROUTE; Start 10/03/24 at 11:16; Stop 10/03/24 at 11:17; Status DC Dextrose 50 ml STK-MED ONCE IV; Start 10/03/24 at 11:44; Stop 10/03/24 at 11:44; Status DC Cefazolin Sodium 2 gm STK-MED ONCE .ROUTE; Start 10/03/24 at 12:52; Stop 10/03/24 at 12:52; Status DC Acetaminophen 1,000 mg Q6H6 IV Last administered on 10/04/24at 11:18; Start 10/03/24 at 18:00; Stop 10/04/24 at 17:59; Status DC Aspirin 81 mg ONCE ONCE NG Last administered on 10/03/24at 17:31; Start 10/03/24 at 17:00; Stop 10/03/24 at 17:02; Status DC Docusate Sodium 100 mg BID PO Last administered on 10/06/24at 19:50; Start 10/03/24 at 21:00; Stop 11/02/24 at 20:59 Lactulose 20 gm BID PRN PO; Start 10/03/24 at 13:00; Stop 11/02/24 at 12:59 Atorvastatin Calcium 40 mg HS PO; Start 10/03/24 at 21:00; Stop 10/03/24 at 12:58; Status DC Magnesium Hydroxide 30 ml DAILY PRN PO; Start 10/03/24 at 13:00; Stop 11/02/24 at 12:59 Dexmedetomidine/ Sodium Chloride 400 mcg PROTOCOL IV; Start 10/03/24 at 13:00; Stop 10/04/24 at 12:59; Status DC Acetaminophen 650 mg Q6H PRN PO Last administered on 10/04/24at 08:59; Start 10/03/24 at 13:00; Stop 11/02/24 at 12:59 Protamine Sulfate 250 mg STK-MED ONCE IV; Start 10/03/24 at 12:54; Stop 10/03/24 at 12:55; Status DC Lidocaine HCl 100 mg STK-MED ONCE .ROUTE; Start 10/03/24 at 12:55; Stop 10/03/24 at 12:55; Status DC Heparin Sodium (Porcine) 10,000 unit STK-MED ONCE .ROUTE; Start 10/03/24 at 12:55; Stop 10/03/24 at 12:55; Status DC Epinephrine HCl 1 mg STK-MED ONCE .ROUTE; Start 10/03/24 at 12:55; Stop 10/03/24 at 12:55; Status DC Sodium Bicarbonate 200 ml @ As Directed STK-MED ONCE .ROUTE; Start 10/03/24 at 12:55; Stop 10/03/24 at 12:55; Status DC Norepinephrine Bitartrate 4 mg STK-MED ONCE IV; Start 10/03/24 at 12:55; Stop 10/03/24 at 12:55; Status DC Fentanyl Citrate 1,000 mcg STK-MED ONCE IJ; Start 10/03/24 at 12:55; Stop 10/03/24 at 12:55; Status DC Propofol 200 mg STK-MED ONCE IV; Start 10/03/24 at 12:55; Stop 10/03/24 at 12:56; Status DC Midazolam HCl 2 mg STK-MED ONCE .ROUTE; Start 10/03/24 at 12:55; Stop 10/03/24 at 12:56; Status DC Rocuronium [place] 50 mg STK-MED ONCE .ROUTE; Start 10/03/24 at 12:56; Stop 10/03/24 at 12:56; Status DC Etomidate 20 mg STK-MED ONCE .ROUTE; Start 10/03/24 at 12:59; Stop 10/03/24 at 13:00; Status DC Sodium Chloride 1,000 ml @ 10 mls/hr ONCE IV; Start 10/03/24 at 13:00; Stop 10/04/24 at 12:59; Status DC Sodium Chloride 10 ml Q8H PRN IVP; Start 10/03/24 at 13:00; Stop 11/02/24 at 12:59 Morphine Sulfate 0.5 mg Q2H PRN IV Last administered on 10/03/24at 20:56; Start 10/03/24 at 13:00; Stop 10/04/24 at 10:49; Status DC Morphine Sulfate 1 mg Q2H PRN IV; Start 10/03/24 at 13:00; Stop 10/04/24 at 10:49; Status DC Acetaminophen 650 mg Q4H PRN RC; Start 10/03/24 at 13:00; Stop 11/02/24 at 12:59 Ondansetron HCl 4 mg Q6H PRN IV Last administered on 10/04/24at 16:35; Start 10/03/24 at 13:00; Stop 11/02/24 at 12:59 Sodium Chloride 500 ml @ 0 mls/hr AD IV; Start 10/03/24 at 13:00; Stop 11/02/24 at 12:59 Nitroglycerin/ Dextrose 0 ml @ 0 mls/hr AD IV; Start 10/03/24 at 13:00; Stop 10/06/24 at 12:59; Status DC Propofol 100 ml @ 0 mls/hr AD PRN IV; Start 10/03/24 at 13:00; Stop 10/07/24 at 12:59; Status DC Norepinephrine Bitartrate 8 mg/ Dextrose 250 ml @ 0 mls/hr AD PRN IV; Start 10/03/24 at 13:00; Stop 10/03/24 at 13:03; Status DC Epinephrine HCl 10 mg/Sodium Chloride 250 ml @ 0 mls/hr AD PRN IV; Start 10/03/24 at 13:00; Stop 10/03/24 at 13:03; Status DC Aminocaproic Acid 52676 mg/Sodium Chloride 310 ml @ 25 mls/hr AD IV; Start 10/03/24 at 13:00; Stop 10/03/24 at 13:03; Status DC Calcium Gluconate 1 gm/Sodium Chloride 60 ml @ 200 mls/hr AD PRN IV Last administered on 10/05/24at 11:32; Start 10/03/24 at 13:00; Stop 11/02/24 at 12:59 Magnesium Sulfate 50 ml @ 12.5 mls/hr AD PRN IV Last administered on 10/03/24at 17:21; Start 10/03/24 at 13:00; Stop 11/02/24 at 12:59 Potassium Chloride 100 ml @ 100 mls/hr AD PRN IV; Start 10/03/24 at 13:00; Stop 11/02/24 at 12:59 Potassium Phosphate 250 ml @ 42 mls/hr AD PRN IV; Start 10/03/24 at 13:00; Stop 11/02/24 at 12:59 Albumin Human 250 ml @ 0 mls/hr AD PRN IV Last administered on 10/03/24at 17:23; Start 10/03/24 at 13:00; Stop 10/03/24 at 17:24; Status DC Acetaminophen 650 mg Q4H PRN PO; Start 10/03/24 at 13:00; Stop 11/02/24 at 12:59 Insulin Human Regular 100 unit/ Sodium Chloride 100 ml @ 0 mls/hr AD IV Last administered on 10/03/24at 17:38; Start 10/03/24 at 13:00; Stop 10/05/24 at 12:59; Status DC Cefazolin Sodium 2 gm Q8H IVPB Last administered on 10/04/24at 09:46; Start 10/03/24 at 18:00; Stop 10/04/24 at 10:01; Status DC Tramadol HCl 25 mg Q6H PRN PO; Start 10/03/24 at 13:00; Stop 10/08/24 at 12:59 Tramadol HCl 50 mg Q6H PRN PO Last administered on 10/06/24at 01:17; Start 10/03/24 at 13:00; Stop 10/08/24 at 12:59 Famotidine 20 mg Q48H IV Last administered on 10/05/24at 21:04; Start 10/03/24 at 21:00; Stop 11/02/24 at 20:59 Sodium Bicarbonate 50 meq AD PRN IV Last administered on 10/03/24at 20:57; Start 10/03/24 at 13:00; Stop 10/06/24 at 12:59; Status DC Dextrose 50 ml AD PRN IV; Start 10/03/24 at 13:00; Stop 10/03/24 at 13:04; Status DC Glucagon 1 mg AD PRN IM; Start 10/03/24 at 13:00; Stop 10/03/24 at 13:04; Status DC Amiodarone HCl 150 mg STK-MED ONCE .ROUTE; Start 10/03/24 at 13:45; Stop 10/03/24 at 13:46; Status DC Potassium Chloride 300 ml @ As Directed STK-MED ONCE IV; Start 10/03/24 at 14:24; Stop 10/03/24 at 14:25; Status DC Heparin Sodium (Porcine) 10,000 unit STK-MED ONCE .ROUTE; Start 10/03/24 at 14:28; Stop 10/03/24 at 14:29; Status DC Lidocaine HCl 100 mg STK-MED ONCE .ROUTE; Start 10/03/24 at 14:30; Stop 10/03/24 at 14:30; Status DC Vasopressin 20 units STK-MED ONCE .ROUTE; Start 10/03/24 at 14:39; Stop 10/03/24 at 14:39; Status DC Albumin Human 500 ml @ As Directed STK-MED ONCE IV; Start 10/03/24 at 15:20; Stop 10/03/24 at 15:20; Status DC Albumin Human 250 ml @ As Directed STK-MED ONCE IV; Start 10/03/24 at 15:58; Stop 10/03/24 at 15:58; Status DC Cefazolin Sodium 3 gm STK-MED ONCE IVPB Last administered on 10/03/24at 13:15; Start 10/03/24 at 13:15; Stop 10/03/24 at 17:02; Status DC Papaverine HCl 60 mg STK-MED ONCE IRRIG Last administered on 10/03/24at 13:45; Start 10/03/24 at 13:45; Stop 10/03/24 at 17:02; Status DC Cefazolin Sodium 1 gm STK-MED ONCE IRRIG Last administered on 10/03/24at 13:45; Start 10/03/24 at 13:45; Stop 10/03/24 at 17:02; Status DC Vasopressin 20 units/Sodium Chloride 100 ml @ 0 mls/hr PROTOCOL IV Last administered on 10/04/24at 06:34; Start 10/03/24 at 19:30; Stop 11/02/24 at 19:29 Albumin Human 100 ml ONCE ONCE IV Last administered on 10/04/24at 07:24; Start 10/04/24 at 06:30; Stop 10/04/24 at 06:31; Status DC Epoetin Moses-epbx 10,000 unit ONCE ONCE SQ Last administered on 10/04/24at 13:14; Start 10/04/24 at 13:00; Stop 10/04/24 at 13:05; Status DC Albumin Human 100 ml @ As Directed STK-MED ONCE IV Last administered on 10/05/24at 16:18; Start 10/05/24 at 15:46; Stop 10/05/24 at 15:46; Status DC Albumin Human 100 ml ONCE IV Last administered on 10/05/24at 16:18; Start 10/05/24 at 16:00; Stop 10/06/24 at 15:59; Status DC Insulin Human Regular INSULIN SLIDING SCAL... ACHS SQ; Start 10/05/24 at 16:30; Stop 10/06/24 at 06:12; Status DC Guaifenesin/ Dextromethorphan 15 ml Q4H PRN PO Last administered on 10/06/24at 01:35; Start 10/06/24 at 01:30; Stop 11/05/24 at 01:29 Insulin Glargine 20 units DAILY SQ Last administered on 10/06/24at 09:16; Start 10/06/24 at 09:00; Stop 10/07/24 at 12:41; Status DC Insulin Human Regular INSULIN SLIDING SCAL... ACHS SQ Last administered on 10/06/24at 17:09; Start 10/06/24 at 07:30; Stop 11/05/24 at 07:29 Insulin Human Regular 5 unit TIDAC SQ Last administered on 10/06/24at 17:10; Start 10/06/24 at 07:30; Stop 10/06/24 at 19:15; Status DC Metoprolol Tartrate 12.5 mg BID PO Last administered on 10/06/24at 19:50; Start 10/06/24 at 09:00; Stop 11/05/24 at 08:59 Epoetin Moses-epbx 10,000 unit QTUTHSA SQ; Start 10/07/24 at 09:00; Stop 10/07/24 at 13:20; Status DC Insulin Human Regular 10 unit TIDAC SQ; Start 10/07/24 at 07:30; Stop 10/07/24 at 12:41; Status DC Calcium Carbonate 1,000 mg TIDMEALS PO; Start 10/07/24 at 08:00; Stop 10/30/24 at 13:59 Insulin Glargine 15 units DAILY SQ; Start 10/08/24 at 09:00; Stop 11/07/24 at 08:59 Insulin Human Regular 5 unit TIDAC SQ; Start 10/07/24 at 17:00; Stop 11/06/24 at 16:59 Epoetin Moses-epbx 10,000 unit QTUTHSA SQ; Start 10/07/24 at 16:00; Stop 11/06/24 at 15:59 BROOKLYN HUSSEIN MD Oct 07, 2024 14:04
--- NOTE | 2024-10-07 15:08 | NUR ---
CM NOTE/POC CM spoke to Archana DASH with Dr. Parker. States there is no plan for AV access this admission. CM updated Dr. Guevara with plan. Also advised that patient has HD chair time secured and has declined rehab. Patient is pending home o2 eval. CM to f/u.
--- NOTE | 2024-10-07 15:15 | NUR ---
Spoke with Dr. Hinton: "ok to resume aspirin therapy. notified of current platelet results, asked if whether to transfuse with platelets, he said no the patient does not need platelets today, just give his epogen as per emar."
[2024-10-07] MEDS: EPOETIN ALFA-EPBX (NON-ESRD) 10,000 UNIT/ML VIAL SQ SCH (18:21)
--- NOTE | 2024-10-07 19:00 | NUR ---
patient voiced to me that he was developing blisters and felt his left leg OTTO hose was too tight. I noted two small blisters present and offered to apply a dry/protective dressing to the area, but patient refused it. Left off the OTTO hose as per patient's request. Voices "I feel better now that it is off." Patient voiced that he is comfortable now and has call light in reach. Voiced no further discomfort. SBAR report given to EKTA Wood
[2024-10-07 20:21] LABS: HEMATOCRIT 23.1 % (42-54)
--- NOTE | 2024-10-07 21:28 | PN ---
endocrinology progress note Date of Service: 10/07/2024 subjective: s/p CABG and extubated now. patient is off insulin drip. home regimen: novolin 70/30 insulin 70 units twice per day. glucose are controlled and develop hypoglycwmia in morning 50 mg/dl. insulin dose decreased. REVIEW OF SYSTEMS extubated now PAST MEDICAL HISTORY: Chronic kidney disease Diabetes type 2 Hypertension Hyperlipidemia Obesity PAST SURGICAL HISTORY: Left eye cataract surgery one month ago PAST SOCIAL HISTORY: Patient lives with . Patient denies alcohol tobacco and recreational drug use FAMILY HISTORY: Noncontributory Coded Allergies: No Known Allergies (Unverified Allergy, Unknown, 03/27/22) ASSESSMENT: Hyperosmolar Hyperglycemic Syndrome POA resolved s/p CABG and extubated now. patient is off insulin drip. glucose are controlled and develop hypoglycwmia in morning 50 mg/dl. insulin dose decreased. he did not receive lantus this morning as well as pre-breakfast and pre-lunch insulin due to hypoglycemia. Uncontrolled Diabetes POA hba1c 12.9% home regimen: novolin 70/30 insulin 70 units twice per day. NSTEMI POA cath shows CAD and s/p CABG Influenza bronchopneumonia with sepsis POA Acute Hypoxemic Respiratory Failure POA Acute on chronic renal failure with concern for ATN POA ON HD Metabolic acidosis POA Lactic acidosis POA CKD stage 4 POA Protein Calorie malnutrition POA PLAN: decrease lantus to 15 units daily decrease regular insulin to 5 units tid before meals continue medium dose ssi monitor glucose qx6 hourly Vitals/Labs Vital Signs Date Time Temp Pulse Resp B/P (MAP) Pulse Ox O2 Delivery O2 Flow Rate FiO2 10/07/24 18:58 98.8 85 20 134/67 98 Room Air 10/07/24 15:00 21 21 21 28 10/07/24 13:00 2.0 Laboratory Tests 10/07/24 03:45 10/07/24 08:58 10/07/24 20:16 Medications Current Medications Ceftriaxone Sodium 1 gm ONCE ONCE IVPB; Start 09/21/24 at 18:00; Stop 09/21/24 at 18:13; Status DC Azithromycin 250 ml @ 250 mls/hr Q24H IVPB; Start 09/21/24 at 18:00; Stop 09/21/24 at 18:14; Status DC Promethazine HCl/ Codeine 10 ml ONCE ONCE PO; Start 09/21/24 at 18:00; Stop 09/21/24 at 18:01; Status DC Piperacillin Sod/ Tazobactam Sod 3.375 gm ONCE ONCE IVPB Last administered on 09/21/24at 18:35; Start 09/21/24 at 18:30; Stop 09/21/24 at 18:31; Status DC Insulin Human Regular 10 unit ONCE ONCE IV Last administered on 09/21/24at 18:36; Start 09/21/24 at 18:30; Stop 09/21/24 at 18:31; Status DC Metoprolol Tartrate 5 mg ONCE ONCE IV Last administered on 09/21/24at 18:32; Start 09/21/24 at 18:30; Stop 09/21/24 at 18:31; Status DC Heparin Sodium (Porcine) *calculation based on ACTUAL B... AD PRN IV; Start 09/21/24 at 19:30; Stop 09/26/24 at 07:14; Status DC Heparin Sodium/ Dextrose 250 ml @ 0 mls/hr Q6H IV Last administered on 09/25/24at 04:13; Start 09/21/24 at 19:30; Stop 09/26/24 at 18:36; Status DC Sodium Chloride 1,000 ml @ 0 mls/hr ONCE ONCE IV Last administered on 09/21/24at 18:37; Start 09/21/24 at 18:30; Stop 09/21/24 at 18:31; Status DC Ondansetron HCl 4 mg STK-MED ONCE .ROUTE Last administered on 09/21/24at 18:31; Start 09/21/24 at 18:29; Stop 09/21/24 at 18:29; Status DC Oseltamivir Phosphate 75 mg ONCE ONCE PO Last administered on 09/21/24at 18:45; Start 09/21/24 at 19:00; Stop 09/21/24 at 19:01; Status DC Acetaminophen 650 mg Q6H PRN PO; Start 09/21/24 at 19:30; Stop 10/03/24 at 12:53; Status DC Acetaminophen 650 mg Q4H PRN PO Last administered on 09/30/24at 01:32; Start 09/21/24 at 19:30; Stop 10/03/24 at 12:53; Status DC Guaifenesin/ Dextromethorphan 10 ml Q4H PRN PO Last administered on 09/23/24at 22:06; Start 09/21/24 at 19:30; Stop 10/03/24 at 12:53; Status DC Albuterol 1 udvial [id number] IH Last administered on 09/25/24at 06:43; Start 09/21/24 at 22:00; Stop 09/25/24 at 09:59; Status DC Famotidine 10 mg Q48H PO; Start 09/21/24 at 19:30; Stop 09/21/24 at 20:00; Status DC Nitroglycerin 0.5 inch Q8H TD Last administered on 09/25/24at 12:44; Start 09/21/24 at 19:30; Stop 09/27/24 at 10:34; Status DC Piperacillin Sod/ Tazobactam Sod 50 ml @ 12.5 mls/hr Q12H IV Last administered on 09/22/24at 20:43; Start 09/21/24 at 21:00; Stop 09/23/24 at 08:06; Status DC Sodium Chloride 1,000 ml @ 100 mls/hr Q10H IV Last administered on 09/23/24at 12:53; Start 09/21/24 at 19:30; Stop 09/27/24 at 10:34; Status DC Oseltamivir Phosphate 75 mg DAILY PO Last administered on 09/23/24at 08:38; Start 09/22/24 at 09:00; Stop 09/23/24 at 13:29; Status DC Doxycycline Hyclate 100 mg BID PO Last administered on 09/30/24at 20:53; Start 09/21/24 at 21:00; Stop 09/30/24 at 23:59; Status DC Aspirin 81 mg DAILY PO Last administered on 10/06/24at 09:12; Start 09/22/24 at 09:00; Stop 10/22/24 at 08:59 Insulin Human Regular 100 unit/ Sodium Chloride 101 ml @ 0 mls/hr PROTOCOL IV Last administered on 09/21/24at 21:01; Start 09/21/24 at 20:00; Stop 09/23/24 at 21:20; Status DC Famotidine 10 mg DAILY IV Last administered on 09/27/24at 09:09; Start 09/22/24 at 09:00; Stop 09/27/24 at 10:35; Status DC Alprazolam 0.5 mg ONCE ONCE PO Last administered on 09/21/24at 21:44; Start 09/21/24 at 22:00; Stop 09/21/24 at 22:01; Status DC Magnesium Sulfate 50 ml @ 0 mls/hr PROTOCOL PRN IV Last administered on 09/21/24at 23:52; Start 09/22/24 at 00:00; Stop 09/22/24 at 00:04; Status DC Magnesium Sulfate 50 ml @ As Directed STK-MED ONCE IV; Start 09/21/24 at 23:49; Stop 09/21/24 at 23:49; Status DC Sodium Chloride 1,000 ml @ 200 mls/hr PROTOCOL IV; Start 09/22/24 at 00:00; Stop 09/23/24 at 21:23; Status DC Potassium Chloride/Dextrose/ Sod Cl 1,000 ml @ 0 mls/hr AD IV; Start 09/22/24 at 00:00; Stop 09/23/24 at 21:23; Status DC Potassium Chloride 20 meq/ Sodium Chloride 1,010 ml @ 0 mls/hr PROTOCOL IV; Start 09/22/24 at 00:00; Stop 09/23/24 at 21:23; Status DC Magnesium Sulfate 50 ml @ 0 mls/hr PROTOCOL IV; Start 09/22/24 at 00:00; Stop 09/23/24 at 21:23; Status DC Insulin Human Regular 100 unit/ Sodium Chloride 101 ml @ 0 mls/hr PROTOCOL IV; Start 09/22/24 at 00:00; Stop 09/22/24 at 00:03; Status DC Mannitol 49 gm AD IV; Start 09/22/24 at 00:00; Stop 09/22/24 at 00:28; Status DC Dextrose/Sodium Chloride 1,000 ml @ 0 mls/hr AD IV Last administered on 09/22/24at 09:49; Start 09/22/24 at 00:00; Stop 09/23/24 at 21:23; Status DC Methylprednisolone Sodium Succinate 125 mg ONCE ONCE IVP Last administered on 09/22/24at 01:35; Start 09/22/24 at 00:30; Stop 09/22/24 at 00:31; Status DC Methylprednisolone Sodium Succinate 40 mg BID IVP Last administered on 09/26/24at 20:37; Start 09/22/24 at 09:00; Stop 09/27/24 at 10:35; Status DC Mannitol 245 ml @ 0 mls/hr AD IV; Start 09/22/24 at 00:30; Stop 09/22/24 at 20:17; Status DC Atorvastatin Calcium 40 mg HS PO; Start 09/22/24 at 21:00; Stop 09/22/24 at 20:17; Status DC Mannitol 500 ml @ 0 mls/hr AD IV; Start 09/22/24 at 00:30; Stop 09/22/24 at 14:33; Status DC Sodium Chloride 4 ml STK-MED ONCE IH; Start 09/22/24 at 05:59; Stop 09/22/24 at 06:00; Status DC Vitamin B Complex/ Vit C/Folic Acid 1 cap DAILY PO Last administered on 10/06/24at 09:12; Start 09/23/24 at 09:00; Stop 10/23/24 at 08:59 Furosemide 80 mg Q12H IV Last administered on 09/26/24at 13:20; Start 09/22/24 at 21:00; Stop 09/26/24 at 15:22; Status DC Nifedipine 60 mg DAILY PO Last administered on 09/25/24at 08:37; Start 09/23/24 at 09:00; Stop 09/28/24 at 12:01; Status DC Ferrous Sulfate 325 mg DAILY PO Last administered on 10/06/24at 09:12; Start 09/23/24 at 09:00; Stop 10/23/24 at 08:59 Miscellaneous Medication 1 tab DAILY PO; Start 09/23/24 at 09:00; Stop 09/22/24 at 15:56; Status DC Chlordiazepoxide HCl 25 mg Q2H PRN PO Last administered on 09/28/24at 23:59; Start 09/22/24 at 20:30; Stop 09/29/24 at 20:29; Status DC Chlordiazepoxide HCl 50 mg Q1H PRN PO; Start 09/22/24 at 20:30; Stop 09/29/24 at 20:29; Status DC Thiamine HCl 100 mg/Folic Acid 1 mg/Multivitamins/ Minerals 10 ml/ Sodium Chloride 1,011.2 ml @ 100 mls/ hr Q24H IV Last administered on 09/22/24at 20:43; Start 09/22/24 at 20:30; Stop 09/25/24 at 06:37; Status DC Multivitamins Therapeutic 1 tab DAILY PO Last administered on 10/06/24at 09:12; Start 09/23/24 at 09:00; Stop 10/23/24 at 08:59 Pharmacy Profile Note 1 each PROTOCOL PRN MISC; Start 09/22/24 at 20:30; Stop 09/29/24 at 20:29; Status DC Fish Oil 2,000 mg BID PO Last administered on 10/02/24at 20:38; Start 09/22/24 at 21:00; Stop 10/03/24 at 12:53; Status DC Metoprolol Tartrate 12.5 mg BID PO Last administered on 09/24/24at 12:07; Start 09/22/24 at 21:00; Stop 09/24/24 at 16:38; Status DC Insulin Glargine 10 units BID@0730,2100 SQ Last administered on 09/25/24at 20:44; Start 09/22/24 at 21:00; Stop 09/26/24 at 11:15; Status DC Vancomycin HCl 1,000 mg DAILY08 IV; Start 09/23/24 at 08:00; Stop 09/22/24 at 20:26; Status DC Vancomycin HCl 250 ml @ 125 mls/hr Q72H IV Last administered on 09/22/24at 20:48; Start 09/22/24 at 20:30; Stop 09/23/24 at 08:04; Status DC Atorvastatin Calcium 40 mg STK-MED ONCE .ROUTE; Start 09/22/24 at 20:41; Stop 09/22/24 at 20:41; Status DC Sodium Bicarbonate 100 meq ONCE ONCE IV Last administered on 09/23/24at 08:40; Start 09/23/24 at 08:00; Stop 09/23/24 at 08:08; Status DC Cefepime HCl 1 gm Q24H IVPB Last administered on 09/25/24at 08:36; Start 09/23/24 at 08:30; Stop 09/26/24 at 11:14; Status DC Pharmacy Profile Note 1 each ONCE MISC; Start 09/23/24 at 13:00; Stop 09/23/24 at 13:25; Status DC Oseltamivir Phosphate 75 mg QTUTHSA[DIALYSIS] PO; Start 09/23/24 at 16:00; Stop 09/23/24 at 17:04; Status DC Oseltamivir Phosphate 75 mg QTUTHSA[DIALYSIS] PO Last administered on 09/25/24at 16:09; Start 09/23/24 at 22:00; Stop 09/26/24 at 16:32; Status DC Atorvastatin Calcium 20 mg HS PO Last administered on 09/26/24at 20:36; Start 09/23/24 at 21:00; Stop 09/27/24 at 10:38; Status DC Clopidogrel Bisulfate 300 mg ONCE ONCE PO Last administered on 09/23/24at 19:04; Start 09/23/24 at 17:30; Stop 09/23/24 at 17:31; Status DC Clopidogrel Bisulfate 75 mg DAILY PO Last administered on 09/25/24at 08:38; Start 09/24/24 at 09:00; Stop 09/26/24 at 07:14; Status DC Lidocaine HCl 20 ml STK-MED ONCE .ROUTE; Start 09/23/24 at 17:17; Stop 09/23/24 at 17:17; Status DC Heparin Sodium/ Sodium Chloride 500 ml @ As Directed STK-MED ONCE IV; Start 09/23/24 at 17:17; Stop 09/23/24 at 17:18; Status DC Heparin Sodium (Porcine) 1,000 unit STK-MED ONCE .ROUTE; Start 09/23/24 at 17:24; Stop 09/23/24 at 17:24; Status DC Albumin Human 100 ml ONCE ONCE IV Last administered on 09/23/24at 19:53; Start 09/23/24 at 19:30; Stop 09/23/24 at 19:31; Status DC Sodium Chloride 1,000 ml @ 0 mls/hr ONCE IV Last administered on 09/26/24at 12:15; Start 09/23/24 at 19:30; Stop 09/27/24 at 13:51; Status DC Pharmacy Profile Note 1 each ONCE MISC; Start 09/23/24 at 21:30; Stop 09/24/24 at 07:08; Status DC Sodium Bicarbonate 650 mg TID PO Last administered on 09/26/24at 20:36; Start 09/24/24 at 09:00; Stop 09/27/24 at 10:34; Status DC Insulin Human Regular INSULIN SLIDING SCAL... ACHS SQ Last administered on 10/03/24at 05:48; Start 09/24/24 at 07:30; Stop 10/03/24 at 12:53; Status DC Vancomycin HCl 750 mg Q24H IVPB Last administered on 09/24/24at 22:43; Start 09/23/24 at 23:30; Stop 09/25/24 at 06:26; Status DC Fluconazole/ Sodium Chloride 800 mg ONCE ONCE IV; Start 09/24/24 at 14:00; Stop 09/24/24 at 13:50; Status DC Epoetin Moses-epbx 10,000 unit ONCE ONCE SQ Last administered on 09/24/24at 18:43; Start 09/24/24 at 16:00; Stop 09/24/24 at 16:01; Status DC Metoprolol Tartrate 5 mg STK-MED ONCE IV; Start 09/24/24 at 15:57; Stop 09/24/24 at 15:57; Status DC Metoprolol Succinate 50 mg BID PO Last administered on 09/24/24at 19:45; Start 09/24/24 at 21:00; Stop 09/26/24 at 07:14; Status DC Metoprolol Succinate 50 mg STK-MED ONCE PO; Start 09/24/24 at 19:28; Stop 09/24/24 at 19:28; Status DC Gabapentin 100 mg TID PO Last administered on 09/30/24at 14:07; Start 09/24/24 at 21:00; Stop 09/30/24 at 17:37; Status DC Vancomycin HCl 750 mg [id number] IVPB; Start 09/26/24 at 16:00; Stop 10/03/24 at 23:29; Status DC Metoprolol Succinate 100 mg ONCE ONCE PO Last administered on 09/25/24at 08:37; Start 09/25/24 at 08:30; Stop 09/25/24 at 08:31; Status DC Albuterol 1 udvial [id number] IH Last administered on 09/26/24at 11:17; Start 09/25/24 at 10:00; Stop 09/26/24 at 15:22; Status DC Metoprolol Tartrate 50 mg ONCE ONCE PO Last administered on 09/25/24at 16:09; Start 09/25/24 at 15:00; Stop 09/25/24 at 15:01; Status DC Epoetin Moses-epbx 10,000 unit ONCE ONCE SQ Last administered on 09/25/24at 17:52; Start 09/25/24 at 15:00; Stop 09/25/24 at 15:01; Status DC Fluconazole/ Sodium Chloride 200 mg Q24H IV Last administered on 09/26/24at 14:38; Start 09/25/24 at 16:00; Stop 09/27/24 at 10:36; Status DC Ondansetron HCl 4 mg STK-MED ONCE .ROUTE; Start 09/25/24 at 22:35; Stop 09/25/24 at 22:41; Status DC Sodium Chloride 250 ml @ 0 mls/hr Q0M IV; Start 09/25/24 at 23:00; Stop 09/27/24 at 10:34; Status DC Albumin Human 100 ml @ 0 mls/hr AD STAT IV Last administered on 09/25/24at 23:17; Start 09/25/24 at 23:09; Stop 09/25/24 at 23:12; Status DC Norepinephrine 250 ml @ 0 mls/hr AD PRN IV Last administered on 09/26/24at 01:40; Start 09/26/24 at 01:30; Stop 09/27/24 at 10:34; Status DC Ondansetron HCl 4 mg Q6H PRN IVP Last administered on 09/27/24at 08:51; Start 09/26/24 at 01:30; Stop 10/03/24 at 12:53; Status DC Morphine Sulfate 2 mg Q4H PRN IVP; Start 09/26/24 at 01:30; Stop 10/01/24 at 04:29; Status DC Ondansetron HCl 4 mg STK-MED ONCE .ROUTE; Start 09/26/24 at 01:21; Stop 09/26/24 at 01:21; Status DC Norepinephrine 250 ml @ As Directed STK-MED ONCE IV; Start 09/26/24 at 01:22; Stop 09/26/24 at 01:22; Status DC Metoprolol Succinate 25 mg BID PO Last administered on 10/03/24at 08:55; Start 09/26/24 at 09:00; Stop 10/03/24 at 12:53; Status DC Piperacillin Sod/ Tazobactam Sod 3.375 gm Q12H IV Last administered on 10/05/24at 23:22; Start 09/26/24 at 11:30; Stop 10/06/24 at 08:29; Status DC Insulin Glargine 15 units BID@0730,2100 SQ Last administered on 09/30/24at 07:03; Start 09/26/24 at 21:00; Stop 09/30/24 at 17:13; Status DC Albuterol 1 udvial [id number] PRN IH; Start 09/26/24 at 15:30; Stop 10/21/24 at 21:59 Oseltamivir Phosphate 75 mg Q24H PO Last administered on 09/27/24at 18:04; Start 09/26/24 at 17:00; Stop 09/27/24 at 17:01; Status DC Magnesium Sulfate 50 ml @ 0 mls/hr PROTOCOL IV; Start 09/26/24 at 18:30; Stop 09/27/24 at 10:25; Status DC Insulin Human Regular 100 unit/ Sodium Chloride 101 ml @ 0 mls/hr PROTOCOL IV Last administered on 09/26/24at 18:36; Start 09/26/24 at 18:30; Stop 09/27/24 at 10:25; Status DC Pantoprazole Sodium 40 mg BID IVP Last administered on 10/03/24at 08:55; Start 09/27/24 at 21:00; Stop 10/03/24 at 12:53; Status DC Pantoprazole Sodium 40 mg ONCE ONCE IVP Last administered on 09/27/24at 12:08; Start 09/27/24 at 12:00; Stop 09/27/24 at 12:01; Status DC Sodium Chloride 1,000 ml @ 0 mls/hr ONCE IV; Start 09/27/24 at 14:30; Stop 09/27/24 at 13:51; Status DC Sodium Chloride 1,000 ml @ 0 mls/hr ONCE IV Last administered on 10/07/24at 09:59; Start 09/27/24 at 15:00; Stop 10/27/24 at 14:59 Heparin Sodium (Porcine) 10,000 unit AD IRRIG Last administered on 10/01/24at 17:18; Start 09/27/24 at 14:00; Stop 10/27/24 at 13:59 Prednisone 20 mg DAILY PO Last administered on 09/30/24at 08:50; Start 09/28/24 at 09:00; Stop 10/01/24 at 08:59; Status DC Iohexol 35,000 mg STK-MED ONCE IV; Start 09/29/24 at 11:19; Stop 09/29/24 at 11:20; Status DC Iohexol 50 ml STK-MED ONCE IV; Start 09/29/24 at 12:17; Stop 09/29/24 at 12:17; Status DC Metoprolol Tartrate 5 mg STK-MED ONCE IV; Start 09/29/24 at 12:23; Stop 09/29/24 at 12:24; Status DC Epoetin Moses-epbx 10,000 unit ONCE ONCE SQ Last administered on 09/29/24at 16:48; Start 09/29/24 at 16:30; Stop 09/29/24 at 16:31; Status DC Albumin Human 100 ml ONCE ONCE IV; Start 09/29/24 at 15:15; Stop 09/29/24 at 16:54; Status DC Epoetin Moses-epbx 10,000 unit [id number] SQ Last administered on 10/01/24at 15:34; Start 10/01/24 at 09:00; Stop 10/06/24 at 15:12; Status DC Clopidogrel Bisulfate 75 mg DAILY PO Last administered on 09/30/24at 08:49; Start 09/30/24 at 09:00; Stop 10/01/24 at 08:26; Status DC Atorvastatin Calcium 40 mg HS PO Last administered on 10/07/24at 20:53; Start 09/30/24 at 21:00; Stop 10/30/24 at 20:59 Sodium Bicarbonate 100 meq ONCE ONCE IV Last administered on 09/30/24at 10:28; Start 09/30/24 at 09:00; Stop 09/30/24 at 09:01; Status DC Calcium Carbonate 1,000 mg TID PO Last administered on 10/06/24at 19:50; Start 09/30/24 at 14:00; Stop 10/07/24 at 00:52; Status DC Ergocalciferol 50,000 unit ONCE ONCE PO Last administered on 09/30/24at 14:07; Start 09/30/24 at 14:00; Stop 09/30/24 at 14:01; Status DC Insulin Glargine 20 units AM SQ; Start 10/01/24 at 09:00; Stop 09/30/24 at 17:26; Status DC Insulin Glargine 10 units HS SQ; Start 09/30/24 at 21:00; Stop 09/30/24 at 17:26; Status DC Insulin Glargine 30 units HS SQ Last administered on 10/01/24at 19:54; Start 09/30/24 at 21:00; Stop 10/02/24 at 07:19; Status DC Insulin Human Lispro 7 unit TIDAC SQ Last administered on 10/01/24at 16:22; Start 10/01/24 at 07:30; Stop 10/01/24 at 17:01; Status DC Dextrose 50 ml AD PRN IV; Start 09/30/24 at 17:30; Stop 10/01/24 at 08:25; Status DC Glucagon 1 mg AD PRN IM; Start 09/30/24 at 17:30; Stop 10/01/24 at 08:25; Status DC Gabapentin 100 mg DAILY PO Last administered on 10/06/24at 09:12; Start 10/01/24 at 09:00; Stop 10/24/24 at 20:59 Melatonin 5 mg ONCE ONCE PO Last administered on 09/30/24at 23:05; Start 09/30/24 at 23:00; Stop 09/30/24 at 23:01; Status DC Lidocaine HCl 20 ml STK-MED ONCE .ROUTE; Start 10/01/24 at 07:12; Stop 10/01/24 at 07:13; Status DC Iohexol 35,000 mg STK-MED ONCE IV; Start 10/01/24 at 07:12; Stop 10/01/24 at 07:14; Status DC Heparin Sodium (Porcine) 10,000 unit STK-MED ONCE .ROUTE; Start 10/01/24 at 07:12; Stop 10/01/24 at 07:14; Status DC Heparin Sodium/ Sodium Chloride 1,000 ml @ As Directed STK-MED ONCE IV; Start 10/01/24 at 07:12; Stop 10/01/24 at 07:14; Status DC Nitroglycerin 50 mg STK-MED ONCE .ROUTE; Start 10/01/24 at 07:12; Stop 10/01/24 at 07:14; Status DC Fentanyl Citrate 100 mcg STK-MED ONCE .ROUTE; Start 10/01/24 at 07:40; Stop 10/01/24 at 07:40; Status DC Midazolam HCl 2 mg STK-MED ONCE .ROUTE; Start 10/01/24 at 07:40; Stop 10/01/24 at 07:40; Status DC Verapamil HCl 5 mg STK-MED ONCE .ROUTE; Start 10/01/24 at 07:59; Stop 10/01/24 at 07:59; Status DC Dextrose 50 ml AD PRN IV Last administered on 10/05/24at 05:14; Start 10/01/24 at 08:30; Stop 10/31/24 at 08:29 Glucagon 1 mg AD PRN IM; Start 10/01/24 at 08:30; Stop 10/31/24 at 08:29 Hydralazine HCl 5 mg ONCE ONCE IV Last administered on 10/01/24at 18:26; Start 10/01/24 at 16:30; Stop 10/01/24 at 16:31; Status DC Hydralazine HCl 10 mg Q6H PRN IV; Start 10/01/24 at 16:30; Stop 10/03/24 at 12:53; Status DC Calcium Gluconate 1 gm/Sodium Chloride 100 ml @ 0 mls/hr PROTOCOL IV; Start 10/01/24 at 17:00; Stop 10/03/24 at 12:53; Status DC Insulin Human Lispro 10 unit TIDAC SQ; Start 10/01/24 at 17:00; Stop 10/01/24 at 19:41; Status DC Insulin Human Lispro 15 unit TIDAC SQ Last administered on 10/02/24at 07:01; Start 10/02/24 at 07:30; Stop 10/02/24 at 07:20; Status DC Insulin Glargine 50 units DAILY SQ Last administered on 10/02/24at 09:41; Start 10/02/24 at 07:30; Stop 10/02/24 at 16:53; Status DC Insulin Human Lispro 20 unit TIDAC SQ Last administered on 10/02/24at 11:48; Start 10/02/24 at 11:30; Stop 10/02/24 at 16:53; Status DC Cefazolin Sodium 2 gm ONCALL IVPB; Start 10/02/24 at 10:30; Stop 10/03/24 at 13:09; Status DC Insulin Glargine 50 units BID SQ Last administered on 10/03/24at 09:02; Start 10/02/24 at 21:00; Stop 10/03/24 at 12:53; Status DC Insulin Human Lispro 25 unit TIDAC SQ Last administered on 10/02/24at 17:17; Start 10/02/24 at 17:00; Stop 10/03/24 at 12:53; Status DC Cefazolin Sodium 1 gm STK-MED ONCE .ROUTE; Start 10/03/24 at 07:24; Stop 10/03/24 at 07:29; Status DC Heparin Sodium/ Sodium Chloride 500 ml @ As Directed STK-MED ONCE IV; Start 10/03/24 at 07:24; Stop 10/03/24 at 07:29; Status DC Papaverine HCl 60 mg STK-MED ONCE .ROUTE; Start 10/03/24 at 07:24; Stop 10/03/24 at 07:29; Status DC Epinephrine HCl 10 mg/Sodium Chloride 250 ml @ 0 mls/hr AD PRN IV Last administered on 10/04/24at 06:35; Start 10/03/24 at 10:00; Stop 11/02/24 at 09:59 Norepinephrine Bitartrate 250 ml @ 0 mls/hr AD PRN IV; Start 10/03/24 at 10:00; Stop 11/02/24 at 09:59 Aminocaproic Acid 70525 mg/Sodium Chloride 480 ml @ 0 mls/hr AD PRN IV; Start 10/03/24 at 10:00; Stop 11/02/24 at 09:59 Lidocaine HCl/ Dextrose 250 ml @ As Directed STK-MED ONCE IV; Start 10/03/24 at 11:16; Stop 10/03/24 at 11:17; Status DC Nitroglycerin/ Dextrose 1 ml @ As Directed STK-MED ONCE .ROUTE; Start 10/03/24 at 11:16; Stop 10/03/24 at 11:17; Status DC Dextrose 50 ml STK-MED ONCE IV; Start 10/03/24 at 11:44; Stop 10/03/24 at 11:44; Status DC Cefazolin Sodium 2 gm STK-MED ONCE .ROUTE; Start 10/03/24 at 12:52; Stop 10/03/24 at 12:52; Status DC Acetaminophen 1,000 mg Q6H6 IV Last administered on 10/04/24at 11:18; Start 10/03/24 at 18:00; Stop 10/04/24 at 17:59; Status DC Aspirin 81 mg ONCE ONCE NG Last administered on 10/03/24at 17:31; Start 10/03/24 at 17:00; Stop 10/03/24 at 17:02; Status DC Docusate Sodium 100 mg BID PO Last administered on 10/07/24at 20:53; Start 10/03/24 at 21:00; Stop 11/02/24 at 20:59 Lactulose 20 gm BID PRN PO; Start 10/03/24 at 13:00; Stop 11/02/24 at 12:59 Atorvastatin Calcium 40 mg HS PO; Start 10/03/24 at 21:00; Stop 10/03/24 at 12:58; Status DC Magnesium Hydroxide 30 ml DAILY PRN PO; Start 10/03/24 at 13:00; Stop 11/02/24 at 12:59 Dexmedetomidine/ Sodium Chloride 400 mcg PROTOCOL IV; Start 10/03/24 at 13:00; Stop 10/04/24 at 12:59; Status DC Acetaminophen 650 mg Q6H PRN PO Last administered on 10/04/24at 08:59; Start 10/03/24 at 13:00; Stop 11/02/24 at 12:59 Protamine Sulfate 250 mg STK-MED ONCE IV; Start 10/03/24 at 12:54; Stop 10/03/24 at 12:55; Status DC Lidocaine HCl 100 mg STK-MED ONCE .ROUTE; Start 10/03/24 at 12:55; Stop 10/03/24 at 12:55; Status DC Heparin Sodium (Porcine) 10,000 unit STK-MED ONCE .ROUTE; Start 10/03/24 at 12:55; Stop 10/03/24 at 12:55; Status DC Epinephrine HCl 1 mg STK-MED ONCE .ROUTE; Start 10/03/24 at 12:55; Stop 10/03/24 at 12:55; Status DC Sodium Bicarbonate 200 ml @ As Directed STK-MED ONCE .ROUTE; Start 10/03/24 at 12:55; Stop 10/03/24 at 12:55; Status DC Norepinephrine Bitartrate 4 mg STK-MED ONCE IV; Start 10/03/24 at 12:55; Stop 10/03/24 at 12:55; Status DC Fentanyl Citrate 1,000 mcg STK-MED ONCE IJ; Start 10/03/24 at 12:55; Stop 10/03/24 at 12:55; Status DC Propofol 200 mg STK-MED ONCE IV; Start 10/03/24 at 12:55; Stop 10/03/24 at 12:56; Status DC Midazolam HCl 2 mg STK-MED ONCE .ROUTE; Start 10/03/24 at 12:55; Stop 10/03/24 at 12:56; Status DC Rocuronium [place] 50 mg STK-MED ONCE .ROUTE; Start 10/03/24 at 12:56; Stop 10/03/24 at 12:56; Status DC Etomidate 20 mg STK-MED ONCE .ROUTE; Start 10/03/24 at 12:59; Stop 10/03/24 at 13:00; Status DC Sodium Chloride 1,000 ml @ 10 mls/hr ONCE IV; Start 10/03/24 at 13:00; Stop 10/04/24 at 12:59; Status DC Sodium Chloride 10 ml Q8H PRN IVP; Start 10/03/24 at 13:00; Stop 11/02/24 at 12:59 Morphine Sulfate 0.5 mg Q2H PRN IV Last administered on 10/03/24at 20:56; Start 10/03/24 at 13:00; Stop 10/04/24 at 10:49; Status DC Morphine Sulfate 1 mg Q2H PRN IV; Start 10/03/24 at 13:00; Stop 10/04/24 at 10:49; Status DC Acetaminophen 650 mg Q4H PRN RC; Start 10/03/24 at 13:00; Stop 11/02/24 at 12:59 Ondansetron HCl 4 mg Q6H PRN IV Last administered on 10/04/24at 16:35; Start 10/03/24 at 13:00; Stop 11/02/24 at 12:59 Sodium Chloride 500 ml @ 0 mls/hr AD IV; Start 10/03/24 at 13:00; Stop 11/02/24 at 12:59 Nitroglycerin/ Dextrose 0 ml @ 0 mls/hr AD IV; Start 10/03/24 at 13:00; Stop 10/06/24 at 12:59; Status DC Propofol 100 ml @ 0 mls/hr AD PRN IV; Start 10/03/24 at 13:00; Stop 10/07/24 at 12:59; Status DC Norepinephrine Bitartrate 8 mg/ Dextrose 250 ml @ 0 mls/hr AD PRN IV; Start 10/03/24 at 13:00; Stop 10/03/24 at 13:03; Status DC Epinephrine HCl 10 mg/Sodium Chloride 250 ml @ 0 mls/hr AD PRN IV; Start 10/03/24 at 13:00; Stop 10/03/24 at 13:03; Status DC Aminocaproic Acid 00762 mg/Sodium Chloride 310 ml @ 25 mls/hr AD IV; Start 10/03/24 at 13:00; Stop 10/03/24 at 13:03; Status DC Calcium Gluconate 1 gm/Sodium Chloride 60 ml @ 200 mls/hr AD PRN IV Last administered on 10/05/24at 11:32; Start 10/03/24 at 13:00; Stop 11/02/24 at 12:59 Magnesium Sulfate 50 ml @ 12.5 mls/hr AD PRN IV Last administered on 10/03/24at 17:21; Start 10/03/24 at 13:00; Stop 11/02/24 at 12:59 Potassium Chloride 100 ml @ 100 mls/hr AD PRN IV; Start 10/03/24 at 13:00; Stop 11/02/24 at 12:59 Potassium Phosphate 250 ml @ 42 mls/hr AD PRN IV; Start 10/03/24 at 13:00; Stop 11/02/24 at 12:59 Albumin Human 250 ml @ 0 mls/hr AD PRN IV Last administered on 10/03/24at 17:23; Start 10/03/24 at 13:00; Stop 10/03/24 at 17:24; Status DC Acetaminophen 650 mg Q4H PRN PO; Start 10/03/24 at 13:00; Stop 11/02/24 at 12:59 Insulin Human Regular 100 unit/ Sodium Chloride 100 ml @ 0 mls/hr AD IV Last administered on 10/03/24at 17:38; Start 10/03/24 at 13:00; Stop 10/05/24 at 12:59; Status DC Cefazolin Sodium 2 gm Q8H IVPB Last administered on 10/04/24at 09:46; Start 10/03/24 at 18:00; Stop 10/04/24 at 10:01; Status DC Tramadol HCl 25 mg Q6H PRN PO; Start 10/03/24 at 13:00; Stop 10/08/24 at 12:59 Tramadol HCl 50 mg Q6H PRN PO Last administered on 10/06/24at 01:17; Start 10/03/24 at 13:00; Stop 10/08/24 at 12:59 Famotidine 20 mg Q48H IV Last administered on 10/07/24at 20:54; Start 10/03/24 at 21:00; Stop 11/02/24 at 20:59 Sodium Bicarbonate 50 meq AD PRN IV Last administered on 10/03/24at 20:57; Start 10/03/24 at 13:00; Stop 10/06/24 at 12:59; Status DC Dextrose 50 ml AD PRN IV; Start 10/03/24 at 13:00; Stop 10/03/24 at 13:04; Status DC Glucagon 1 mg AD PRN IM; Start 10/03/24 at 13:00; Stop 10/03/24 at 13:04; Status DC Amiodarone HCl 150 mg STK-MED ONCE .ROUTE; Start 10/03/24 at 13:45; Stop 10/03/24 at 13:46; Status DC Potassium Chloride 300 ml @ As Directed STK-MED ONCE IV; Start 10/03/24 at 14:24; Stop 10/03/24 at 14:25; Status DC Heparin Sodium (Porcine) 10,000 unit STK-MED ONCE .ROUTE; Start 10/03/24 at 14:28; Stop 10/03/24 at 14:29; Status DC Lidocaine HCl 100 mg STK-MED ONCE .ROUTE; Start 10/03/24 at 14:30; Stop 10/03/24 at 14:30; Status DC Vasopressin 20 units STK-MED ONCE .ROUTE; Start 10/03/24 at 14:39; Stop 10/03/24 at 14:39; Status DC Albumin Human 500 ml @ As Directed STK-MED ONCE IV; Start 10/03/24 at 15:20; Stop 10/03/24 at 15:20; Status DC Albumin Human 250 ml @ As Directed STK-MED ONCE IV; Start 10/03/24 at 15:58; Stop 10/03/24 at 15:58; Status DC Cefazolin Sodium 3 gm STK-MED ONCE IVPB Last administered on 10/03/24at 13:15; Start 10/03/24 at 13:15; Stop 10/03/24 at 17:02; Status DC Papaverine HCl 60 mg STK-MED ONCE IRRIG Last administered on 10/03/24at 13:45; Start 10/03/24 at 13:45; Stop 10/03/24 at 17:02; Status DC Cefazolin Sodium 1 gm STK-MED ONCE IRRIG Last administered on 10/03/24at 13:45; Start 10/03/24 at 13:45; Stop 10/03/24 at 17:02; Status DC Vasopressin 20 units/Sodium Chloride 100 ml @ 0 mls/hr PROTOCOL IV Last administered on 10/04/24at 06:34; Start 10/03/24 at 19:30; Stop 11/02/24 at 19:29 Albumin Human 100 ml ONCE ONCE IV Last administered on 10/04/24at 07:24; Start 10/04/24 at 06:30; Stop 10/04/24 at 06:31; Status DC Epoetin Moses-epbx 10,000 unit ONCE ONCE SQ Last administered on 10/04/24at 13:14; Start 10/04/24 at 13:00; Stop 10/04/24 at 13:05; Status DC Albumin Human 100 ml @ As Directed STK-MED ONCE IV Last administered on 10/05/24at 16:18; Start 10/05/24 at 15:46; Stop 10/05/24 at 15:46; Status DC Albumin Human 100 ml ONCE IV Last administered on 10/05/24at 16:18; Start 10/05/24 at 16:00; Stop 10/06/24 at 15:59; Status DC Insulin Human Regular INSULIN SLIDING SCAL... ACHS SQ; Start 10/05/24 at 16:30; Stop 10/06/24 at 06:12; Status DC Guaifenesin/ Dextromethorphan 15 ml Q4H PRN PO Last administered on 10/06/24at 01:35; Start 10/06/24 at 01:30; Stop 11/05/24 at 01:29 Insulin Glargine 20 units DAILY SQ Last administered on 10/06/24at 09:16; Start 10/06/24 at 09:00; Stop 10/07/24 at 12:41; Status DC Insulin Human Regular INSULIN SLIDING SCAL... ACHS SQ Last administered on 10/07/24at 20:51; Start 10/06/24 at 07:30; Stop 11/05/24 at 07:29 Insulin Human Regular 5 unit TIDAC SQ Last administered on 10/06/24at 17:10; Start 10/06/24 at 07:30; Stop 10/06/24 at 19:15; Status DC Metoprolol Tartrate 12.5 mg BID PO Last administered on 10/07/24at 20:53; Start 10/06/24 at 09:00; Stop 11/05/24 at 08:59 Epoetin Moses-epbx 10,000 unit QTUTHSA SQ; Start 10/07/24 at 09:00; Stop 10/07/24 at 13:20; Status DC Insulin Human Regular 10 unit TIDAC SQ; Start 10/07/24 at 07:30; Stop 10/07/24 at 12:41; Status DC Calcium Carbonate 1,000 mg TIDMEALS PO; Start 10/07/24 at 08:00; Stop 10/30/24 at 13:59 Insulin Glargine 15 units DAILY SQ; Start 10/08/24 at 09:00; Stop 11/07/24 at 08:59 Insulin Human Regular 5 unit TIDAC SQ Last administered on 10/07/24at 18:24; Start 10/07/24 at 17:00; Stop 11/06/24 at 16:59 Epoetin Moses-epbx 10,000 unit QTUTHSA SQ Last administered on 10/07/24at 18:21; Start 10/07/24 at 16:00; Stop 11/06/24 at 15:59 Vitamin B Complex 1,000 mcg DAILY PO; Start 10/08/24 at 09:00; Stop 11/07/24 at 08:59 Folic Acid 1 mg DAILY PO; Start 10/08/24 at 09:00; Stop 11/07/24 at 08:59 HENNA PATEL MD Oct 07, 2024 21:28
--- NOTE | 2024-10-07 21:46 | PN ---
SUBJECTIVE: The patient has been evaluated and seen for dialysis and seen several times. The patient is critically ill with status post CABG. No other associated symptoms. No other aggravating or relieving factors. The patient is weak. The patient is status post CABG, still has a temporary dialysis catheter in place. Other systemic review is unchanged from the past. PHYSICAL EXAMINATION: GENERAL: Pale, no other distress, lying in bed. VITAL SIGNS: Blood pressure is 152/89, pulse 103, respiratory rate is 16. HEENT: Head is atraumatic, normocephalic. Pupils are round, reactive to light. Sclerae are anicteric. Conjunctivae not pale. Oral mucosa is not dry. NECK: Supple. No masses or bruits. Thyroid is palpable. Neck has no bruits. LABORATORY DATA: Labs have been all reviewed. Imaging studies are reviewed. PROBLEMS: Renal failure, anemia, multiple other comorbidities. PLAN: To continue dialysis support. Continue Epogen, seen for dialysis, seen multiple times. The patient is weak. We will be monitoring closely. The patient was evaluated and seen for dialysis multiple times. Condition remained guarded. TID: [id number] RECEIPT: [id number]
--- NOTE | 2024-10-07 21:50 | PN ---
SUBJECTIVE: The patient has been evaluated and seen for dialysis, seen several times. The patient has renal failure, anemia, end-stage renal disease, acute NM, status post CABG. The patient is critically ill. No fever, chills or rigors. No cough, expectoration or hemoptysis. No other associated findings. PHYSICAL EXAMINATION: GENERAL: Pale, no other distress. VITAL SIGNS: Blood pressure is 135/89, pulse is 98, respiratory rate 20, afebrile. HEENT: Head is atraumatic. Pupils are round and reactive. Sclerae are anicteric. Conjunctivae not pale. Oral mucosa is not dry. NECK: Supple. No masses or bruits. Thyroid is palpable. Neck has no bruits. LABORATORY DATA: Labs have been reviewed. Old records reviewed. Imaging studies are personally reviewed. Labs have shown WBC high. PROBLEMS: Renal failure, anemia, multiple other comorbidities. PLAN: To continue monitoring. Follow up on renal function. Follow up on electrolytes. Intake, output, weight will be monitored. The patient has been evaluated and seen for dialysis and seen multiple times. I have discussed with other team members in detail. Thank you for this patient. TID: [id number] RECEIPT: [id number]
[2024-10-08] VITALS (11 sets, daily range): BP systolic 130–162; BP diastolic 64–91; PULSE 86–110; RESP 16–24; TEMP 97.7–98.4; O2SAT 87–100
--- NOTE | 2024-10-08 00:25 | NUR ---
PATIENT HAD VOICED TO THEA SCHNEIDER HE WANTED NURSE TO LOOK AT BLISTERS FORMED ON LEG. [place] DID NOTIFY ME IN PASSING AROUND 2244 BUT I WAS OCCUPIED WITH ANOTHER PATIENT. ONCE NO LONGER OCCUPIED WITH OTHER PATIENT I WENT INTO ADDRESS PATIENT'S NEEDS. PATIENT STATED I TOOK TOO LONG AND NO LONGER NEEDED ME. GAVE THE PATIENT MULTIPLE OPPORTUNITIES TO LET ME KNOW HOW I COULD ASSIST HIM. PATIENT REFUSED MY OFFER. LET PATIENT KNOW IF HE CHANGED HIS MIND HE COULD CALL ME AT ANY TIME.
[2024-10-08 04:03] LABS: HEMATOCRIT 22.1 % (42-54); MEAN CORPUSCULAR HEMOGLOBIN 27.7 pg (27.0-33.0); MEAN CORPUSCULAR HGB CONC 32.6 g/dL (32.0-36.0); NUCLEATED RED BLOOD CELLS 0.3 % (0.0-0.19); RED BLOOD CELL COUNT(AUTO) 2.6 MIL/uL (4.50-6.20); RED CELL DISTRIBUTION WIDTH 15.7 % (11.0-15.5); WHITE BLOOD COUNT (AUTO) 6.9 K/uL (4.8-10.8)
[2024-10-08 04:14] LABS: CREATININE 7.9 mg/dL (0.5-1.3); POTASSIUM 4.5 mmol/L (3.5-5.1)
[2024-10-08] MEDS: INSULIN humuLIN R 100 UNIT/ML 3ML SQ SCH ×2 (06:47→18:03)
[2024-10-08] MEDS: FOLic ACID 1 MG TABLET PO SCH (08:00)
--- NOTE | 2024-10-08 08:00 | NUR ---
PATIENT CONTINUES WITH BLISTERS TO LEFT LEG PER PREVIOUS DAY. AT THIS TIME, "I DONT WANT ANYTHING ON THEM". I OFFERED TO ASSIST PATIENT BY APPLYING DRY PROTECTIVE DRESSING AND HE REFUSED, AND REPORTED THAT "I FEEL MORE COMFORTABLE SINCE YOU REMOVED THE SOCKS YESTERDAY." ADVISED PATIENT THAT I AM HERE TO ASSIST WITH CARE. I ENSURED THAT HIS CALL MELCHOR WAS IN PLACE, HE VOICED NO FURTHER DISCOMFORT..
[2024-10-08] MEDS: CYANOCOBALAMIN (VITAMIN B-12) 1,000 MCG TABLET PO SCH (08:02)
[2024-10-08] MEDS: INSULIN GLARgine 100 UNITS/ML 10 ML VIAL SQ SCH (08:11)
--- NOTE | 2024-10-08 08:52 | PN ---
[facility] CARDIOLOGY PROGRESS NOTE Date Patient Seen: Oct 08, 2024 Time of Visit: 08:39 Problem List: * Premature coronary artery disease with nontransmural myocardial infarction and unstable angina on presentation. * Severe 3-vessel coronary artery disease by cardiac catheterization on this admission. * Status post coronary artery bypass graft surgery x 3 with APARICIO to the LAD, saphenous vein graft to the posterior left ventricular branch of the circumflex and saphenous vein graft to the PDA, 10/03/2024 with findings of small targets intraoperatively. * Postoperative thrombocytopenia, improving * Ischemic cardiomyopathy with EF of 35-40% by echocardiography, 09/23/2024, ? hibernating myocardium. * Acute on chronic systolic and diastolic congestive heart failure with reduced ejection fraction. * End-stage renal disease, status post initiation of hemodialysis on this admission. * History of influenza pneumonia with sepsis on this admission, resolving. * Acute hypoxemic respiratory failure, resolving. * Diabetes mellitus type 2, with circulatory and renal manifestations. * Hyperosmolar hyperglycemic syndrome. * Hypertension. * Hyperlipoproteinemia. * Protein calorie malnutrition * Obesity * Concern for JEANINE Interval History: Pt is evaluated in his room, improving BP, improving thrombocytopenia. Pt has improved respiratory status with weaning of oxygen ongoing. Pt was tachycardic last night, we will uptitrate the betablockers today since BP is increasing. CXR shows improved aeration to the LLL today, still with some vascular congestion and atelectasis, pending report from radiologist. Physical Examination: GENERAL: No acute distress. HEAD: Normal with no signs of head trauma. EYES: PERRLA, EOMI, conjunctiva and sclera normal. ENT: Hearing grossly intact, normal oropharynx. NECK: Supple without JVD. There is no tenderness, lymphadenopathy, or masses. No thyromegaly. Normal carotid upstrokes without bruits. LUNGS: Crackles to bases bilaterally. HEART: Tachycardic rate and normal rhythm. Normal S1 and S2 without murmurs, gallop or rub. VASC: BLE 2+ pitting edema ABD: Bowel sounds normal, soft, nontender, no masses, no organomegaly. No audible bruits. : Not examined LYMPH: No lymphadenopathy noted. EXT: No clubbing or cyanosis, 2+ bilateral lower extremity pitting edema SKIN: No rashes or lesions noted. NEURO: Awake, alert, and oriented x3. No focal sensory or strength deficits noted. Laboratory: [ ] Hematology Labs: Test 10/08/24 03:17 Range/Units White Blood Count 6.9 4.8-10.8 K/uL Red Blood Count 2.60 L 4.50-6.20 MIL/uL Hemoglobin 7.2 L 14.0-18.0 g/dL Hematocrit 22.1 L 42-54 % Mean Corpuscular Volume 85.0 79-99 fL Mean Corpuscular Hemoglobin 27.7 27.0-33.0 pg Mean Corpuscular Hemoglobin Concent 32.6 32.0-36.0 g/dL Red Cell Distribution Width 15.7 H 11.0-15.5 % Platelet Count 61 #L 130-400 K/uL Mean Platelet Volume 11.6 H 7.5-10.5 fL Nucleated Red Blood Cells 0.3 H 0.0-0.19 % Chemistry Labs: Test 10/08/24 06:17 10/08/24 03:17 10/07/24 05:02 10/07/24 03:45 Range/Units Whole Blood Glucose 221 H 70-110 MG/DL Sodium Level 134 L 136-145 mmol/L Potassium Level 4.5 3.5-5.1 mmol/L Chloride Level 95 L 101-111 mmol/L Carbon Dioxide Level 29 21-32 mmol/L Blood Urea Nitrogen 57 H 7-18 mg/dL Creatinine 7.9 H 0.5-1.3 mg/dL Glomerular Filtration Rate Calc 8 >90 mL/min Random Glucose 199 #H 70-105 mg/dL Total Calcium 7.8 L 8.5-10.1 mg/dL Bedside Glucose Comment Notified Nurse Phosphorus Level 7.4 H 2.5-4.9 mg/dL Coagulation Labs: Test 10/06/24 09:24 Range/Units Prothrombin Time 11.5 9.6-11.6 SEC Prothromb Time International Ratio 1.03 0.85-1.15 Activated Partial Thromboplast Time 33.4 26.3-35.5 SEC Fibrinogen 622 *H 180-350 mg/dL D-Dimer Quantitative (PE/DVT) 475 0-500 ng/mL Diagnostics / Radiology: Impression and Plan: asa 81 mg po daily Increase IS use Titrate the betablocker up to 25mg po bid Continue lasix 20mg po bid and spironolactone 50mg po bid Educate on fluid and salt restrictions Renal diet FR 1 liter per day Ask nephrology if use of arb is acceptable or considers temporary HD [facility] Oct 08, 2024 08:52
[2024-10-08] MEDS ORDERED: IpraTROPium 0.5 MG/2.5 ML INH IH PRN (09:00)
[2024-10-08] MEDS: metoPROLOL tartRATE 25 MG TAB PO SCH (09:00)
--- NOTE | 2024-10-08 13:16 | HMCIMG ---
CHEST 1VW HISTORY: Post CABG COMPARISON: 10/07/2024 FINDINGS: A frontal projection of the chest was obtained. Mild bilateral pulmonary infiltrates are seen may be related to mild pulmonary vascular congestion with possible superimposed pneumonitis. Poststernotomy changes are seen. The heart is enlarged. Degenerative changes of the thoracolumbar spine are present. All the lines and tubes are again seen in place. No evidence of aortic calcification is seen. IMPRESSION: 1. Mild bilateral pulmonary infiltrates are seen may be related to mild pulmonary vascular congestion with possible superimposed pneumonitis.
--- NOTE | 2024-10-08 13:39 | PN ---
NEPHROLOGY PROGRESS NOTE Date/Time Patient Seen: Oct 08, 2024 Reason for Consultation: 13:39 SUBJECTIVE: This is a 49-year-old male with past medical history of CKD, diabetes, hypertension, hyperlipidemia and obesity He presents to the ED for complaints of cough and chest congestion Patient reports coughing up pinkish colored thick phlegm, loss of appetite and on Sunday Positive for influenza A, Chest x-ray result revealed extensive bilateral mid to lower lung pneumonia right greater than left. Coronary CTA that showed severe stenosis ( Prox-mid LAD 90 % stenosis, Prox and mid LCx 90 % stenosis ) CAD -RAD 4 A S/P coronary angiogram yesterday and was found with severe 2 vessel CAD in the LAD and Left Cx, S/p CABGx3 on 10/03/2024 He has been extubated and vasopressors has been discontinued. He has been initiated on renal replacement therapy Tolerated dialysis without difficulty yesterday via Donalds catheter Outpatient dialysis chair [facility] He was seen in the telemetry floor, in no acute distress Family at the bedside Prognosis remains guarded REVIEW OF SYSTEMS: GENERAL: Positive for cough, congestion and generalized weakness NEUROLOGIC: Negative for any blurry vision, blind spots, double vision, facial asymmetry, dysphagia, dysarthria, hemiparesis, hemisensory deficits, vertigo, ataxia. HEENT: Negative for any head trauma, neck trauma, neck stiffness, photophobia, phonophobia, sinusitis, rhinitis. CARDIAC: Negative for any chest pain, dyspnea on exertion, paroxysmal nocturnal dyspnea, peripheral edema. PULMONARY: Negative for any shortness of breath, wheezing, COPD, or TB exposure. GASTROINTESTINAL: Negative for any abdominal pain, nausea, vomiting, bright red blood per rectum, melena. GENITOURINARY: Negative for any dysuria, hematuria, incontinence. INTEGUMENTARY: Negative for any rashes, cuts, insect bites. RHEUMATOLOGIC: Negative for any joint pains, photosensitive rashes, history of vasculitis or kidney problems. HEMATOLOGIC: Negative for any abnormal bruising, frequent infections or bleeding. PHYSICAL EXAM: GENERAL: Alert and oriented x 3. No acute distress. Well-nourished. EYES: EOMI. Anicteric. HENT: Moist mucous membranes. No scleral icterus. No cervical lymphadenopathy. LUNGS: Clear to auscultation bilaterally. No accessory muscle use. CARDIOVASCULAR: Regular rate and rhythm. No murmur. No JVD. ABDOMEN: Soft, non-tender and non-distended. No palpable masses. EXTREMITIES: 2+ edema. Non-tender. SKIN: No rashes or lesions. Warm. NEUROLOGIC: No focal neurological deficits. CN II-XII grossly intact, but not individually tested. PSYCHIATRIC: Cooperative. Appropriate mood and affect. LABORATORY: [ ] Hematology Labs: Test 10/08/24 03:17 Range/Units White Blood Count 6.9 4.8-10.8 K/uL Red Blood Count 2.60 L 4.50-6.20 MIL/uL Hemoglobin 7.2 L 14.0-18.0 g/dL Hematocrit 22.1 L 42-54 % Mean Corpuscular Volume 85.0 79-99 fL Mean Corpuscular Hemoglobin 27.7 27.0-33.0 pg Mean Corpuscular Hemoglobin Concent 32.6 32.0-36.0 g/dL Red Cell Distribution Width 15.7 H 11.0-15.5 % Platelet Count 61 #L 130-400 K/uL Mean Platelet Volume 11.6 H 7.5-10.5 fL Nucleated Red Blood Cells 0.3 H 0.0-0.19 % Chemistry Labs: Test 10/08/24 11:10 10/08/24 03:17 10/07/24 05:02 10/07/24 03:45 Range/Units Whole Blood Glucose 232 H 70-110 MG/DL Sodium Level 134 L 136-145 mmol/L Potassium Level 4.5 3.5-5.1 mmol/L Chloride Level 95 L 101-111 mmol/L Carbon Dioxide Level 29 21-32 mmol/L Blood Urea Nitrogen 57 H 7-18 mg/dL Creatinine 7.9 H 0.5-1.3 mg/dL Glomerular Filtration Rate Calc 8 >90 mL/min Random Glucose 199 #H 70-105 mg/dL Total Calcium 7.8 L 8.5-10.1 mg/dL Bedside Glucose Comment Notified Nurse Phosphorus Level 7.4 H 2.5-4.9 mg/dL DIAGNOSTICS / RADIOLOGY: REASON: s/p CABG ORDERING PHYSICIAN: CANDIDA SZYMANSKI MD PROCEDURE: CXR1VW - CHEST 1VW CHEST 1VW HISTORY: Post CABG COMPARISON: 10/07/2024 FINDINGS: A frontal projection of the chest was obtained. Mild bilateral pulmonary infiltrates are seen may be related to mild pulmonary vascular congestion with possible superimposed pneumonitis. Poststernotomy changes are seen. The heart is enlarged. Degenerative changes of the thoracolumbar spine are present. All the lines and tubes are again seen in place. No evidence of aortic calcification is seen. IMPRESSION: 1. Mild bilateral pulmonary infiltrates are seen may be related to mild pulmonary vascular congestion with possible superimposed pneumonitis. DICTATED BY: JENNIFER MESA MD DATE: 10/08/24 1313 REASON: s/p CABG ORDERING PHYSICIAN: CANDIDA SZYMANSKI MD PROCEDURE: CXR1VW - CHEST 1VW CHEST 1VW HISTORY: Post CABG COMPARISON: 10/06/2024 FINDINGS: A frontal projection of the chest was obtained. Mild bilateral pulmonary infiltrates are seen may be related to mild pulmonary vascular congestion with possible superimposed pneumonitis. Poststernotomy changes are seen. The heart is enlarged. Degenerative changes of the thoracolumbar spine are present. All the lines and tubes are again seen in place. No evidence of aortic calcification is seen. IMPRESSION: 1. Mild bilateral pulmonary infiltrates are seen may be related to mild pulmonary vascular congestion with possible superimposed pneumonitis. DICTATED BY: JENNIFER MESA MD DATE: 10/07/24 0834 REASON: s/p CABG ORDERING PHYSICIAN: CANDIDA SZYMANSKI MD PROCEDURE: CXR1VW - CHEST 1VW CHEST 1VW HISTORY: Post CABG COMPARISON: 10/05/2024 FINDINGS: A frontal projection of the chest was obtained. Mild bilateral pulmonary infiltrates are seen may be related to mild pulmonary vascular congestion with possible superimposed pneumonitis. Poststernotomy changes are seen. The heart is enlarged. Degenerative changes of the thoracolumbar spine are present. All the lines and tubes are again seen in place. No evidence of aortic calcification is seen. IMPRESSION: 1. Mild bilateral pulmonary infiltrates are seen may be related to mild pulmonary vascular congestion with possible superimposed pneumonitis. Mild interval worsening is seen. DICTATED BY: JENNIFER MESA MD DATE: 10/06/24 0837 REASON: SOB ORDERING PHYSICIAN: CANDIDA SZYMANSKI MD PROCEDURE: CXR1VW - CHEST 1VW FRONTAL CHEST RADIOGRAPH INDICATION: SOB COMPARISON: 10/04/2024 FINDINGS/IMPRESSION: service tech/welder leads overlie the field of view. Median sternotomy wires as well as fixation plates and screws are in appropriate alignment. Defibrillator patch has been removed. Stable Garvin-Saba catheter and pleural mediastinal drainage catheters. Stable heart size and residual mild central pulmonary vascular congestion. Mild bilateral perihilar atelectasis and suspect trace left pleural fluid with subjacent subsegmental atelectasis, but no evidence for pneumothorax. DICTATED BY: AGUS MC MD DATE: 10/05/24 1020 REASON: s/p CABG ORDERING PHYSICIAN: CANDIDA SZYMANSKI MD PROCEDURE: CXR1VW - CHEST 1VW CHEST 1VW CLINICAL HISTORY: s/p CABG COMPARISON: 10/13/2024 TECHNIQUE: Single view of the chest was obtained. FINDINGS: There has been interval extubation. The remaining supporting lines and tubes are stable. There is mild pulmonary edema or congestive failure. There is worsening retrocardiac left lower lobe increased opacification. The cardiomediastinal silhouette and bony structures stable. IMPRESSION: Slightly worsened airspace disease status post extubation. DICTATED BY: HEIDI VERMA DO DATE: 10/04/24 1319 REASON: preop CABG ORDERING PHYSICIAN: CANDIDA SZYMANSKI MD PROCEDURE: CXR1VW - CHEST 1VW Exam Type: CHEST 1VW Clinical Information: preop CABG Comparison: None Findings: Right permacath line is noted with tip at the distal superior vena caval level. The lungs are clear of infiltrates. The heart is normal in size. The bony and soft tissue structures of the chest are unremarkable. Impression: Clear lungs. DICTATED BY: ORTIZ BENITES MD DATE: 10/03/24 0838 REASON: sob ORDERING PHYSICIAN: MARIELOS VALLEJO PROCEDURE: CXR1VW - CHEST 1VW Exam Type: CHEST 1VW Clinical Information: sob Comparison: None Findings: Right permacath line is noted with tip at the distal superior vena caval level. There is cardiomegaly. There is prominence of the vascular markings consistent with pulmonary venous congestion. IMPRESSION: Findings consistent with pulmonary venous congestion. DICTATED BY: ORTIZ BENITES MD DATE: 10/01/24 1905 REASON: preop CABG ORDERING PHYSICIAN: CANDIDA SZYMANSKI MD PROCEDURE: CAROTID - US CAROTID DUPLEX Carotid Duplex and color-flow Doppler bilateral History: preop CABG Comparison: None Findings: No significant plaque is identified on either side. Left Internal Carotid Artery Peak Systolic Velocity (PSV), Left Internal Carotid to Common Carotid Artery peak systolic velocity ratio, Right Internal Carotid Artery Peak Systolic Velocity (PSV) and Right Internal Carotid to Common Carotid Artery peak systolic velocity ratio, are all within normal limits. External carotid artery velocities normal bilaterally. Bilateral vertebral arteries show antegrade flow. Impression: Normal exam. NASCET CRITERIA. The degree of internal carotid artery stenosis is based on NASCET criteria. Normal is no stenosis. Mild is less than 50% stenosis. Moderate is 50-69% stenosis. Severe is 70% to 99% stenosis. Total occlusion is no detectable patent lumen. DICTATED BY: ORTIZ BENITES MD DATE: 10/01/24 1621 REASON: nstemi ORDERING PHYSICIAN: ARIELA CHOI MD PROCEDURE: CTCAWC - CT CARDIAC ANGIO W/CONT. CCTA CT OF THE CHEST WITH CONTRAST- CT Cardiac Angio co-interpretation This is done as part of the CT cardiac angiogram study. The interpretation of the coronary arteries will be done by booking manager in a separate report. History: over-read Comparison: none CT Dose Index (CTDI): 77.90 mGy Dose Length Product (DLP): 493.40 total mGy PROTOCOL: Examination is done at 2.5 millimeter volumetric acquisition after contrast administration with Isovue 370, 100 cc IV, without complications. Photography is done at 5 millimeter thick intervals for the thorax. The examination begins above the heart and therefore the lung apices are incompletely included. The rest of the left lung is included but the right lung is only included up to its middle third. The periphery of the right lung is not included in the study. FINDINGS: The visualized part of the airway is preserved. The bony and soft tissue structures of the chest wall are unremarkable. The aorta is unremarkable. No mediastinal lymphadenopathy is seen. The appendix is distended and there are surrounding inflammatory changes and the possibility of acute appendicitis cannot be excluded. There is no evidence of pulmonary embolism in the visualized lung segments. The upper abdominal views are unremarkable. Impression: NoThe appendix is distended and there are surrounding inflammatory changes and the possibility of acute appendicitis cannot be excluded. DICTATED BY: ORTIZ BENITES MD DATE: 09/29/24 0156 REASON: assess liver cirrhosis and CBD dilation ORDERING PHYSICIAN: SHAVON ARAGON PROCEDURE: ABDOMEN - US ABDOMINAL COMPLETE US ABDOMINAL COMPLETE HISTORY: No additional history given. COMPARISON: None TECHNIQUE: Multiple transverse and longitudinal ultrasound images of the abdomen were obtained. FINDINGS: Abdominal aorta and inferior vena cava are unremarkable. The visualized portion of the pancreas is within normal limits. Portal vein is patent. Liver measures 17 cm. Liver is echogenic consistent with liver parenchymal disease. No gallstone is seen. Common duct measures 4 mm. No evidence of gallbladder wall thickening is seen. Both kidneys are seen. Right kidney measures 10.3 x 4.9 x 5 cm. Left kidney measures 10.3 x 6.4 x 3 cm. No hydronephrosis is seen of the both kidneys. Spleen measures 12 cm. The spleen is grossly unremarkable. IMPRESSION: 1. No gallstone or ductal dilatation is seen. 2. No hydronephrosis is seen. DICTATED BY: JENNIFER MESA MD DATE: 09/28/24 1528 REASON: hypoxic resp failure ORDERING PHYSICIAN: SHAVON ARAGON PROCEDURE: CXR1VW - CHEST 1VW CHEST 1VW REASON: hypoxic resp failure COMPARISON: 09/23/2024 FINDINGS: There are diffuse bilateral infiltrates which are unchanged. Dialysis catheter remains in place. There is no pneumothorax or other complication. There are no pleural effusions. IMPRESSION: 1. Extensive bilateral infiltrates unchanged. DICTATED BY: ARMANDO FAIR MD DATE: 09/24/24 1051 REASON: FVO ORDERING PHYSICIAN: FELIX BARBOSA NP PROCEDURE: ECHO CMP - ECHO 2-D COMPLETE APPROVED REPORT EXAM: Two-dimensional and M-mode echocardiogram with Doppler and color Doppler. INDICATION ICD: Fluid volume overload 2D Dimensions RVDd 4.4 cm LVEF(%) 41.1 (>50%) LVED Vol(simp.) 176.0 mL IVSd 1.0 (0.7-1.1cm) FS(%) 20 % LVES Vol(simp.) 104.0 mL LVDd 5.4 (3.8-5.6cm) LA (2D) 4.1 (1.6-4.0cm) LVEF(%, simp.) 41 % PWd 1.4 (0.7-1.1cm) Ao Root(2D) 2.9 (2.0-3.7cm) LA ESV INDEX (4CH) 33.40 mL/m2 IVSs 1.2 cm LVOT diam 2.0 (1.8-2.4cm) LA ESV INDEX (2CH) 45.20 mL/m2 LVDs 4.3 (2.5-4.0cm) IVC diam 2.1 cm LA ESV INDEX (BP) 39.50 mL/m2 PWs 2.0 cm Deformation Strain Apical 4 -9.0 % Apical 2 -9.0 % Apical 3 -9.0 % Global Strain -9.0 % M-Mode Dimensions EPSS 1.7 cm LA (MM) 3.4 (1.6-4.0cm) Ao Root(MM) 3.3 (2.0-3.7cm) Aortic Valve AoV VTI 0.3 m Ao Mean GR 9.0 mmHg LVOT VTI 0.20 m STEPHANIE (VMAX) 1.9 cm2 STEPHANIE (VTI) 1.9 cm2 Mitral Valve MV E Vmax 149.3 cm/s DECEL Time 78 ms P 1/2 T 56 ms MVA (PHT) 3.9 cm2 TDI E/E' Medial 19.4 E/E' Lateral 11.8 Medial E' Peak V 7.70 cm/s Lateral E' Peak V 12.70 cm/s Tricuspid Valve RAP (EST) 8 mmHg RVSP 8.0 mmHg Left Ventricle The left ventricle is normal size. The inferior wall is severely hypokinetic. The other ibrahim are hypokinetic. Moderate concentric hypertrophy of the left ventricle is noted. Left ventricle systolic function is moderate to severely depressed, estimated LVEF 35 to 40%. E to E ratio is greater than 14, which is suggestive of increased left ventricle end-diastolic filling pressures. Right Ventricle The right ventricle is dilated. The right ventricular systolic function is normal. Atria The left atrium is mildly dilated, 40 mL/m. The right atrium is dilated. Aortic Valve Aortic valve is probably trileaflet. The leaflets are severely thickened and calcified. Trace aortic regurgitation. Mild aortic stenosis: Peak velocity 2.0 m/s, mean gradient 9 mmHg Mitral Valve Mild mitral annular calcification is noted. The leaflets are mild thickened and calcified. Trace mitral regurgitation. There is no mitral valve stenosis. Tricuspid Valve The tricuspid valve is normal in structure. Trace tricuspid regurgitation. RVSP is grossly normal, but is likely underestimated. Pulmonic Valve Pulmonic valve is not well visualized. Great Vessels The aortic root is normal in size. The IVC is normal in size and collapses <50% with inspiration. Pericardium Trace pericardial effusion. Other Information Quality : Technically difficult due to body habitus Conclusion The left atrium is mildly dilated, 40 mL/m. The right atrium is dilated. The right ventricle is dilated. Moderate concentric hypertrophy of the left ventricle is noted. The inferior wall is severely hypokinetic. The other ibrahim are hypokinetic. Left ventricle systolic function is moderate to severely depressed, estimated LVEF 35 to 40%. E to E ratio is greater than 14, which is suggestive of increased left ventricle end-diastolic filling pressures. Mild aortic stenosis: Peak velocity 2.0 m/s, mean gradient 9 mmHg (likely underestimated). Trace aortic regurgitation. Trace mitral regurgitation. Trace pericardial effusion. PASP is grossly normal, but is likely under estimated. Trace pericardial effusion. DICTATED BY: RONALD AGUAYO MD DATE: 09/23/24 0731 REASON: acute renal failure ORDERING PHYSICIAN: TERRANCE CHAN PROCEDURE: RENAL - US RENAL SONOGRAM US RENAL SONOGRAM REASON: acute renal failure COMPARISON: None TECHNIQUE: Renal and bladder sonogram was performed. FINDINGS: Right kidney is 11.3 x 4.9 x 4.7 cm, left is 11.5 x 5.5 x 4.4 cm. There is no mass, stone or hydronephrosis. Cortical thickness appears preserved. Echogenicity appears normal. The urinary bladder appears normal as well. IMPRESSION: 1. Normal renal and bladder sonogram. DICTATED BY: ARMANDO FAIR MD DATE: 09/22/24 1127 REASON: sob ORDERING PHYSICIAN: TERRANCE CHAN PROCEDURE: CHEST WO - CT CHEST W/O CONTRAST CT CHEST WITHOUT CONTRAST INDICATION: Bilateral lung pneumonia TECHNIQUE: Routine axial images using 5 mm slice thickness were acquired from the lung apices to the bases without the administration of IV contrast.Coronal and sagittal reformatted images acquired for interpretation. CT was performed with one or more of the following dose reduction techniques: Automated exposure control, adjustment of the mA and/or kV according to patient size, or use of iterative reconstruction technique. COMPARISON: None FINDINGS: The heart size is normal. Coronary arterial wall calcific plaque noted. No pericardial effusion noted. Mild calcific plaque is present along the aortic arch and thoracic aortic ibrahim without aneurysmal dilation. The trachea and airways are patent. Coalescent "ground-glass" opacities with intermixed consolidation/nodularity noted throughout the bilateral lungs in a centrilobular distribution. No axillary, hilar, or mediastinal lymphadenopathy. No pleural effusion or pneumothorax identified. Limited views of the upper abdomen appear normal. Visible osseous structures are intact. IMPRESSION: Extensive bilateral lung pneumonia. Arteriosclerotic disease as described. DICTATED BY: AGUS MC MD DATE: 09/21/242025 REASON: cough, shortness of breath ORDERING PHYSICIAN: HEBER CABRERA NP PROCEDURE: CXR1VW - CHEST 1VW PORTABLE CHEST RADIOGRAPH INDICATION: cough, shortness of breath COMPARISON: 04/05/2024 FINDINGS: Heart size is normal. The pulmonary vascularity and eder appear normal. Extensive coalescent/consolidative bilateral mid to lower lung opacities, right greater than left. No significant pleural effusion noted. No pneumothorax detected. IMPRESSION: Extensive bilateral mid to lower lung pneumonia, right greater than left. DICTATED BY: AGUS MC MD DATE: 09/21/241899 ASSESSMENT: Volume overload End-stage renal disease Hyperosmolar Hyperglycemic Syndrome NSTEMI Influenza A Acute Hypoxemic Respiratory Failure Metabolic acidosis Lactic acidosis CKD stage 4 Uncontrolled Diabetes Protein Calorie malnutrition PLAN: Labs, diagnostic, radiologic exams reviewed and interpreted by myself and supervising physician. We have reviewed external records in detail Order PermCath placement tomorrow, dialysis to follow Patient with the PermCath before discharge Follow renal diabetic diet We will continue to monitor the patient closely Outpatient dialysis chair [facility] Preserve nondominant arm Require close monitoring of renal function and electrolytes Order CBC, CMP,and electrolytes in am Continue with antibiotics IV pressors as needed Renal diabetic diet BiPAP as necessary, for respiratory distress Monitor blood pressure adjust medication doses as needed Avoid hypotensive episodes May use Dilaudid 0.5 mg IV every 6 hours as needed for severe pain Monitor blood sugars Strict intake, output, and daily weight should be monitored Please renally adjust medications Avoid nephrotoxic and nonsteroidal drugs Avoid contrast if possible Will continue to monitor renal function, anemia, electrolytes Treatment plan discussed with patient Questions were answered We have discussed with the other team physicians in detail about the care plan ATTESTATION BY PHYSICIAN I have seen and examined the patient. I reviewed the documentation, medical decision making, and treatment plan as noted by the mid-level provider above. I agree with the findings and plan of care. BRAYDON HOLLINGSWORTH MD, [facility] [employer]PA[employer] Oct 08, 2024 13:39
--- NOTE | 2024-10-08 15:38 | PN ---
[facility] PROGRESS NOTE Date of Service: Oct 08, 2024 Time of Service: 15:29 SUBJECTIVE: This is a 49-year-old male with past medical history of CKD not on hemodialysis, diabetes, hypertension, hyperlipidemia and obesity who presents to the ED for complaints of cough and chest congestion which started last Sunday and getting worse on Sunday. Patient reports coughing up pinkish colored thick phlegm, loss of appetite and on Sunday started not eating unable to sleep, vomiting and having chest pain triggered by persistent coughing he said.Patient reports having soreness due to hard cough he said.Patient reports having sweeling on both lower extremities and started having shortness of breath and today he started having non bloody diarrhea. Neela was at bedside during my evaluation. Upon arrival to ER a STEMI alert was activated per ER MD and spoke to Outpatient Psychiatrist merchandise presentation associate and as per report patient is possibly going to cathlab tomorrow and patient is going to be started on Heparin and Insulin drip. Seen and examined patient in the Er awake,alert and coherent,appears weak looking.Patient denies fever,palpitation ,dizziness ,sore throat and headache. Latest vital signs temperature 98.1, heart rate 108, respiration 30 blood pressure 130/68 saturation 91% on 4 L nasal cannula. Labs: WBC 11.2, hemoglobin 9, hematocrit 27, platelet count 238, neutrophils 88. PH 7.32, CO2 26, PO2 49.6, bicarb 13, PO2 80 base excess -11.3. Sodium 129, potassium 5.9, chloride 93, CO2 19, BUN 88, creatinine 8.2, GFR seven glucose 876 , lactic acid 3.0-3.2, troponin 5531 albumin 2.1. Influenza A positive influenza B negative SARs COVID negative. Strep A negative. Chest x-ray result revealed extensive bilateral mid to lower lung pneumonia right greater than left. First ECG result revealed sinus tachycardia heart rate 121 probable left atrial enlargement repolarization abnormal suggest ischemia diffuse leads ST-elevation consider anterior injury. Second EKG result revealed sinus tachycardia repolarization abnormality suggest ischemia diffuse leads borderline ST elevation anterior leads heart rate 108. While in the ER patient received Tamiflu 75 mg p.o., 1 L NS bolus, Lopressor 5 mg IV, insulin 10 units IV, Zosyn IV, Zofran 4 mg IV and Phenergan codeine 10 mL p.o. we will admit patient in ICU for further medical management. 10/02/24 Patient was seen and examined at bedside. He is alert, awake and oriented. No acute events overnight. He denies chest pain or abdominal pain or palpitations or dizziness or shortness of breath. Dr. Szymanski was consulted for CABG, he will be scheduled for it later this week or next week. Dr. Perry was consulted because of constant hyperglycemia, changed his lantus to 30 and lispro 10U TID , will follow up on the glucose levels next 24 hours.As per his , Lantus never worked for him, will try 70/30 if it is not under control. Remarkable labs are sodium 135, Chloride 97, BUN 85, Creatinine 9.1, glucose 454, corrected calcium 7.4, phosphorous 6.5, his liver function is improving. 10/03/24 Patient was seen and examined at bedside. He is alert, awake and oriented. No acute events overnight. He denies chest pain or abdominal pain or palpitations or dizziness or shortness of breath. He will be taken to surgery this afternoon for CABG by . His blood glucose is improving. We will labs or hemoglobin 9.1, chloride 99, BUN 67, creatinine 8.4, HbA1c 12.0, total calcium improving from 7.4-7.6, BNP 2810, ALT improving from 897 to 638, LDL 134, [place] [address] to [address]. Chest x-ray showed clear lungs with right Permcath at the tip of distal superior vena cava level. 10/04/24 patient was seen and examined. Case discussed with the RN. He is doing well he was successfully underwent CABG. He denies any chest pain or shortness for breath, 10/05/24 Patient was seen and examined at bedside. Today his vitals are blood pressure 142/75, pulse rate 95, respiratory rate 16. Currently on low-dose epinephrine drip. His chest tube drained 980 mL in the last 24 hours and 1.2 L was ultrafiltered during his hemodialysis session yesterday. Remarkable labs her hemoglobin 6.6, hematocrit 20.4, platelets 34959, sodium 148, potassium 5.2, BUN 55, creatinine 7.9 phosphorus 8.0. Lactic acid came down 3.25 to 1.3. He was transfused 1 unit of RBC in the morning. [place]ing [place] [address] to 9100, no temperatures in the last 24 hours. He denies chest pain or shortness of breath or palpitations or dizziness. He has a hemodialysis session today. Chest x-ray today showed mild bilateral perihilar atelectasis and suspect raise left pleural fluid with subjacent, subsegmental atelectasis, but no evidence for pneumothorax. 10/06/24 Patient was seen and examined at bedside. His blood pressure is holding up, has been weaned off pressors. Currently on 2L nasal cannula, encouraging him to use incentive spirometer. Dr. Cesar recommended hematology consult as his platelets have been dropping, currently 39k. He is not on heparin drip or any heparin c oated catheters. He received one unit of packed rbc as his hemoglobin was 6.8 , improved to 8.1. remarkable labs are bicarb 30, BUN 45, creatinine 7 with a GFR 9. He is up from his bed to his chair, he looks weak but is doing better. 10/07/24 Patient was seen and examined at bedside. He has been dowgraded to PCCU. Dr. Parker has d/c'ed chest tubes, radial artery line, swan winter and cordis. His vitals are blood pressure 135/89, pulse rate 98, respiratory rate 20, SpO2 97% on 2 L nasal cannula, T-max 98.8. We will try to wean him off oxygen as tolerated. Dr. Hinton recommended direct coomb's due to thrombocytopenia which was negative. Recommended platelet transfusion. Remarkable labs are H&H 8&24.7, chloride 100, BUN 61, creatinine 9.0, blood glucose 52, phosphorus 7.4. His PermCath will be placed outpatient. Plan is to DC him to home once his thrombocytopenia improves and he passes the 6 minute walk test. 10/08/24 Patient was seen and examined at bedside. Today his vitals are blood pressure 130/64, pulse rate 97, respiratory rate 18, T-max 98.4, SpO2 100 % on2 L nasal cannula. Will try to wean him off oxygen as tolerated He is resting comfortably in the chair, denies chest pain or shortness of breath or dizziness or palpitations or nausea or vomitings or diaphoresis. He did complain of mild leg pain and blisters near the graft site on left lower extremity. His metoprolol has been changed to 25 mg b.i.d. due to increased heart rate and blood pressure by Cardiology. Nephrology has recommended PermCath placement in the morning tomorrow. He will be transfused platelets in the morning. His Glucose is still elevated in 200s. Patient wants to be placed on insulin 70 30 after discharge as his insurance does not cover Lantus. Remarkable labs or hemoglobin 7.2, hematocrit 22.1, platelets 08392, sodium 134, chloride 95, BUN 57, creatinine 7.9, glucose 199. He is qualified for home O2 and a dialysis outpatient chair at [facility] REVIEW OF SYSTEMS CONSTITUTIONAL: Denies fevers, chills, or night sweats. No unintentional weight loss reported. NEUROLOGICAL: Denies headache, amaurosis fugax, motor weakness, sensory deficit, vertigo/spinning sensation, gait abnormalities, or tremors. ENT: No hearing loss, otalgia, otorrhea, rhinitis, rhinorrhea, hoarseness, or sore throat. CARDIOVASCULAR: Denies orthopnea shortness of breaths and chest pain Denies paroxysmal nocturnal dyspnea, palpitations, life-threatening arrhythmias, claudication. PULMONARY: Denies productive cough , pleuritic chest pain and shortness of breaths SLEEP: Complains of unable to sleep Denies morning headaches, daytime somnolence or napping. Denies waking from sleep. Denies knowledge of snoring. GASTROINTESTINAL: Denies loss of appetite, vomiting and diarrhea Denies any type of dysphagia to either liquids or solids. Denies nausea, vomiting, pyrosis, early satiety, abdominal pain, diarrhea, constipation, or changes in stool consistency or caliber. Denies coffee-ground emesis, hematemesis, hematochezia, or melanotic stools. GENITOURINARY: Denies frequency, urgency, nocturia, hematuria or incontinence (Storage/Irritative symptoms.) Low urinary stream, straining to void, urinary intermittency or hesitancy, splitting of the voiding stream, terminal dribbling. ENDOCRINOLOGIC: Denies polyuria, polydipsia, polyphagia or heat/cold intolerances. Patient reports not taking medications for diabetes because he was not eating. HEMATOLOGIC: Denies thrombophilia/previous clots, or coagulopathy/bleeding disorders. ONCOLOGIC: Denies personal history of malignancy. DERMATOLOGIC: Denies rashes or pruritus. PSYCHIATRIC: Denies any suicidal or homicidal ideation. Denies hallucinations. PHYSICAL EXAM GENERAL APPEARANCE: The patient is awake, alert, and oriented appears generally weak NEUROLOGICAL: Cranial nerves II-XII grossly intact. Motor is 5/5 in bilateral upper and lower extremities proximal to distal. No sensory deficits. HEENT: Face is symmetric. Pupils are equal and reactive. Extraocular movements are intact. NECK: Supple. No JVD. No thyromegaly. No submental, submandibular, pre- /postauricular, occipital or supraclavicular lymphadenopathy. CHEST: Normal chest expansion. No Telemetry. LUNGS: . Diminished lung sounds to bilateral lung james CARDIOVASCULAR: Regular. S1 and S2 normal. No appreciable rubs, murmurs or gallops. ABDOMEN: Round and firmed There is no rebound, voluntary guarding, or rigidity. : Deferred. No Del Cid. EXTREMITIES: Bilateral lower extremity edema No clubbing. Good capillary r efill. SKIN: No skin breakdown. Vital Signs (last 8hr) Date Time Temp Pulse Resp B/P (MAP) Pulse Ox O2 Delivery O2 Flow Rate FiO2 10/08/24 11:00 98.2 100 20 162/79 100 Nasal Cannula 2.0 10/08/24 10:55 94 18 21 110 24 21 96 20 28 10/08/24 08:00 100 Nasal Cannula* 2 28 10/08/24 07:49 98.4 97 18 130/64 98 Room Air LABS: Laboratory: Test 10/08/24 11:10 10/08/24 03:17 10/07/24 05:02 10/07/24 03:45 Range/Units Whole Blood Glucose 232 H 70-110 MG/DL White Blood Count 6.9 4.8-10.8 K/uL Red Blood Count 2.60 L 4.50-6.20 MIL/uL Hemoglobin 7.2 L 14.0-18.0 g/dL Hematocrit 22.1 L 42-54 % Mean Corpuscular Volume 85.0 79-99 fL Mean Corpuscular Hemoglobin 27.7 27.0-33.0 pg Mean Corpuscular Hemoglobin Concent 32.6 32.0-36.0 g/dL Red Cell Distribution Width 15.7 H 11.0-15.5 % Platelet Count 61 #L 130-400 K/uL Mean Platelet Volume 11.6 H 7.5-10.5 fL Nucleated Red Blood Cells 0.3 H 0.0-0.19 % Sodium Level 134 L 136-145 mmol/L Potassium Level 4.5 3.5-5.1 mmol/L Chloride Level 95 L 101-111 mmol/L Carbon Dioxide Level 29 21-32 mmol/L Blood Urea Nitrogen 57 H 7-18 mg/dL Creatinine 7.9 H 0.5-1.3 mg/dL Glomerular Filtration Rate Calc 8 >90 mL/min Random Glucose 199 #H 70-105 mg/dL Total Calcium 7.8 L 8.5-10.1 mg/dL Bedside Glucose Comment Notified Nurse Phosphorus Level 7.4 H 2.5-4.9 mg/dL Current Medications Medications (Trade) Dose Ordered Sig/Sierra Route PRN Reason Start Time Stop Time Status Last Admin Dose Admin Acetaminophen (TYLenol 325MG TAB) 650 mg Q4H PRN PO MILD PAIN (1-3) 09/21/24 19:30 10/03/24 12:53 DC 09/30/24 01:32 650 MG Acetaminophen (TYLenol 325MG TAB) 650 mg Q4H PRN PO Temp >38.3C(AFTER EXTUBATION) 10/03/24 13:00 11/02/24 12:59 Acetaminophen (TYLenol 325MG TAB) 650 mg Q6H PRN PO TEMPERATURE GREATER THAN 101.5 09/21/24 19:30 10/03/24 12:53 DC Acetaminophen (TYLenol 325MG TAB) 650 mg Q6H PRN PO MILD PAIN (1-3) 10/03/24 13:00 11/02/24 12:59 10/07/24 20:54 650 MG Acetaminophen (TYLenol 650MG SUPPOSITORY) 650 mg Q4H PRN RC Temp >38.3C WHILE INTUBATED 10/03/24 13:00 11/02/24 12:59 Acetaminophen (acetaMINOPHEN) 1,000 mg Q6H6 IV 10/03/24 18:00 10/04/24 17:59 DC 10/04/24 11:18 1,000 MG Albumin Human 100 ml @ 0 mls/hr AD STAT IV 09/25/24 23:09 09/25/24 23:12 DC 09/25/24 23:17 100 MLS/HR Albumin Human 250 ml @ 0 mls/hr AD PRN IV IF HEMODYNAMICALLY UNSTABLE 10/03/24 13:00 10/03/24 17:24 DC 10/03/24 17:23 250 MLS/HR Albumin Human (Albumin (Human) 25%) 100 ml ONCE IV 10/05/24 16:00 10/06/24 15:59 DC 10/05/24 16:18 100 ML Albuterol (DUOneb) 1 udvial [id number] IH 09/21/24 22:00 09/25/24 09:59 DC 09/25/24 06:43 1 UDVIAL Albuterol (DUOneb) 1 udvial [id number] IH 09/25/24 10:00 09/26/24 15:22 DC 09/26/24 11:17 1 UDVIAL Albuterol (DUOneb) 1 udvial [id number] PRN IH WHEEZING 09/26/24 15:30 10/08/24 08:49 DC Aminocaproic Acid 25478 mg/Sodium Chloride 310 ml @ 25 mls/hr AD IV 10/03/24 13:00 10/03/24 13:03 DC Aminocaproic Acid 61323 mg/Sodium Chloride 480 ml @ 0 mls/hr AD PRN IV BLEEDING CONTROL 10/03/24 10:00 11/02/24 09:59 Aspirin (Aspirin 81mg Ec Tab) 81 mg DAILY PO 09/22/24 09:00 10/22/24 08:59 10/08/24 07:59 81 MG Atorvastatin Calcium (LIPItor 20MG) 20 mg HS PO 09/23/24 21:00 09/27/24 10:38 DC 09/26/24 20:36 20 MG Atorvastatin Calcium (LIPItor 40MG) 40 mg HS PO 09/22/24 21:00 09/22/24 20:17 DC Atorvastatin Calcium (LIPItor 40MG) 40 mg HS PO 09/30/24 21:00 10/30/24 20:59 10/07/24 20:53 40 MG Atorvastatin Calcium (LIPItor 40MG) 40 mg HS PO 10/03/24 21:00 10/03/24 12:58 DC Azithromycin 250 ml @ 250 mls/hr Q24H IVPB 09/21/24 18:00 09/21/24 18:14 DC Calcium Carbonate (Oyster Shell Ca 500mg Tab) 1,000 mg TID PO 09/30/24 14:00 10/07/24 00:52 DC 10/06/24 19:50 1,000 MG Calcium Carbonate (Oyster Shell Ca 500mg Tab) 1,000 mg TIDMEALS PO 10/07/24 08:00 10/30/24 13:59 10/08/24 08:00 1,000 MG Calcium Gluconate 1 gm/Sodium Chloride 60 ml @ 200 mls/hr AD PRN IV HYPOCALCEMIA 10/03/24 13:00 11/02/24 12:59 10/05/24 11:32 200 MLS/HR Calcium Gluconate 1 gm/Sodium Chloride 100 ml @ 0 mls/hr PROTOCOL IV 10/01/24 17:00 10/03/24 12:53 DC Cefazolin Sodium (Ancef) 2 gm ONCALL IVPB 10/02/24 10:30 10/03/24 13:09 DC Cefazolin Sodium (Ancef) 2 gm Q8H IVPB 10/03/24 18:00 10/04/24 10:01 DC 10/04/24 09:46 2 GM Cefepime HCl (MAXipime 1 GM vial) 1 gm Q24H IVPB 09/23/24 08:30 09/26/24 11:14 DC 09/25/24 08:36 1 GM Chlordiazepoxide HCl (LIBrium 25 MG CAP) 25 mg Q2H PRN PO ALCOHOL WITHDRAWAL PROTOCOL 09/22/24 20:30 09/29/24 20:29 DC 09/28/24 23:59 25 MG Chlordiazepoxide HCl (LIBrium 25 MG CAP) 50 mg Q1H PRN PO ALCOHOL WITHDRAWAL PROTOCOL 09/22/24 20:30 09/29/24 20:29 DC Clopidogrel Bisulfate (plaVIX 75MG) 75 mg DAILY PO 09/24/24 09:00 09/26/24 07:14 DC 09/25/24 08:38 75 MG Clopidogrel Bisulfate (plaVIX 75MG) 75 mg DAILY PO 09/30/24 09:00 10/01/24 08:26 DC 09/30/24 08:49 75 MG Dexmedetomidine/ Sodium Chloride (PRECEdex 400MCG/ 100ML-NS) 400 mcg PROTOCOL IV 10/03/24 13:00 10/04/24 12:59 DC Dextrose (D50w) 50 ml AD PRN IV HYPOGLYCEMIA PROTOCOL 09/30/24 17:30 10/01/24 08:25 DC Dextrose (D50w) 50 ml AD PRN IV HYPOGLYCEMIA PROTOCOL 10/01/24 08:30 10/31/24 08:29 10/05/24 05:14 50 ML Dextrose (D50w) 50 ml AD PRN IV HYPOGLYCEMIA PROTOCOL 10/03/24 13:00 10/03/24 13:04 DC Dextrose/Sodium Chloride 1,000 ml @ 0 mls/hr AD IV 09/22/24 00:00 09/23/24 21:23 DC 09/22/24 09:49 150 MLS/HR Docusate Sodium (COLace 100MG CAP) 100 mg BID PO 10/03/24 21:00 11/02/24 20:59 10/08/24 08:02 100 MG Doxycycline Hyclate (Doxycycline Hyclate) 100 mg BID PO 09/21/24 21:00 09/30/24 23:59 DC 09/30/24 20:53 100 MG Epinephrine HCl 10 mg/Sodium Chloride 250 ml @ 0 mls/hr AD PRN IV TITRATE 10/03/24 10:00 11/02/24 09:59 10/04/24 06:35 7.4 MLS/HR Epinephrine HCl 10 mg/Sodium Chloride 250 ml @ 0 mls/hr AD PRN IV POST-OP CARDIOVASCULAR ORDERS 10/03/24 13:00 10/03/24 13:03 DC Epoetin Moses-epbx (Retacrit) 10,000 unit QMOWEFR SQ 10/01/24 09:00 10/06/24 15:12 DC 10/01/24 15:34 10,000 UNIT Epoetin Moses-epbx (Retacrit) 10,000 unit QTUTHSA SQ 10/07/24 09:00 10/07/24 13:20 DC Epoetin Moses-epbx (Retacrit) 10,000 unit QTUTHSA SQ 10/07/24 16:00 11/06/24 15:59 10/07/24 18:21 10,000 UNIT Famotidine (Pepcid 20mg Vial) 10 mg DAILY IV 09/22/24 09:00 09/27/24 10:35 DC 09/27/24 09:09 10 MG Famotidine (Pepcid 20mg Vial) 20 mg Q48H IV 10/03/24 21:00 11/02/24 20:59 10/07/24 20:54 20 MG Famotidine (Pepcid 20mg Tab) 10 mg Q48H PO 09/21/24 19:30 09/21/24 20:00 DC Ferrous Sulfate (Ferrous Sulfate) 325 mg DAILY PO 09/23/24 09:00 10/23/24 08:59 10/08/24 08:00 325 MG Fish Oil (Fish Oil 1000 Mg/Cap) 2,000 mg BID PO 09/22/24 21:00 10/03/24 12:53 DC 10/02/24 20:38 2,000 MG Fluconazole/ Sodium Chloride (DiFLUCan 200 MG/ NS 100 ML) 200 mg Q24H IV 09/25/24 16:00 09/27/24 10:36 DC 09/26/24 14:38 200 MG Folic Acid (FOLic ACID 1 MG TABLET) 1 mg DAILY PO 10/08/24 09:00 11/07/24 08:59 10/08/24 08:00 1 MG Furosemide (LASix 40MG VIAL) 80 mg Q12H IV 09/22/24 21:00 09/26/24 15:22 DC 09/26/24 13:20 80 MG Gabapentin (NEURontin 100 mg CAP) 100 mg DAILY PO 10/01/24 09:00 10/24/24 20:59 10/08/24 08:00 100 MG Gabapentin (NEURontin 100 mg CAP) 100 mg TID PO 09/24/24 21:00 09/30/24 17:37 DC 09/30/24 14:07 100 MG Glucagon (Glucagon 1mg Kit) 1 mg AD PRN IM HYPOGLYCEMIA PROTOCOL 09/30/24 17:30 10/01/24 08:25 DC Glucagon (Glucagon 1mg Kit) 1 mg AD PRN IM HYPOGLYCEMIA PROTOCOL 10/01/24 08:30 10/31/24 08:29 Glucagon (Glucagon 1mg Kit) 1 mg AD PRN IM HYPOGLYCEMIA PROTOCOL 10/03/24 13:00 10/03/24 13:04 DC Guaifenesin/ Dextromethorphan (RobiTUSSin DM 200/20MG 10ML) 10 ml Q4H PRN PO COUGH 09/21/24 19:30 10/03/24 12:53 DC 09/23/24 22:06 10 ML Guaifenesin/ Dextromethorphan (RobiTUSSin DM 200/20MG 10ML) 15 ml Q4H PRN PO COUGH 10/06/24 01:30 11/05/24 01:29 10/06/24 01:35 15 ML Heparin Sodium (Porcine) (HEParin 5,000 UNIT VIAL) *calculation based on ACTUAL B... AD PRN IV HEPARIN PROTOCOL 09/21/24 19:30 09/26/24 07:14 DC Heparin Sodium (Porcine) (HEParin 5,000 UNIT VIAL) 10,000 unit AD IRRIG 09/27/24 14:00 10/27/24 13:59 10/01/24 17:18 10,000 UNIT Heparin Sodium/ Dextrose 250 ml @ 0 mls/hr Q6H IV 09/21/24 19:30 09/26/24 18:36 DC 09/25/24 04:13 14.7 MLS/HR Hydralazine HCl (APRESOLine 20MG INJ) 10 mg Q6H PRN IV ADMINISTER FOR SBP > 160 10/01/24 16:30 10/03/24 12:53 DC Insulin Glargine (LANtus 100 UNITS/ML 10 ML VIAL) 10 units BID@0730,2100 SQ 09/22/24 21:00 09/26/24 11:15 DC 09/25/24 20:44 10 UNITS Insulin Glargine (LANtus 100 UNITS/ML 10 ML VIAL) 10 units HS SQ 09/30/24 21:00 09/30/24 17:26 DC Insulin Glargine (LANtus 100 UNITS/ML 10 ML VIAL) 15 units BID@0730,2100 SQ 09/26/24 21:00 09/30/24 17:13 DC 09/30/24 07:03 15 UNITS Insulin Glargine (LANtus 100 UNITS/ML 10 ML VIAL) 15 units DAILY SQ 10/08/24 09:00 11/07/24 08:59 10/08/24 08:11 15 UNITS Insulin Glargine (LANtus 100 UNITS/ML 10 ML VIAL) 20 units AM SQ 10/01/24 09:00 09/30/24 17:26 DC Insulin Glargine (LANtus 100 UNITS/ML 10 ML VIAL) 20 units DAILY SQ 10/06/24 09:00 10/07/24 12:41 DC 10/06/24 09:16 20 UNITS Insulin Glargine (LANtus 100 UNITS/ML 10 ML VIAL) 30 units HS SQ 09/30/24 21:00 10/02/24 07:19 DC 10/01/24 19:54 30 UNITS Insulin Glargine (LANtus 100 UNITS/ML 10 ML VIAL) 50 units BID SQ 10/02/24 21:00 10/03/24 12:53 DC 10/03/24 09:02 50 UNITS Insulin Glargine (LANtus 100 UNITS/ML 10 ML VIAL) 50 units DAILY SQ 10/02/24 07:30 10/02/24 16:53 DC 10/02/24 09:41 50 UNITS Insulin Human Lispro (HumaLOG LISpro 100 UNIT/ML 3ML) 7 unit TIDAC SQ 10/01/24 07:30 10/01/24 17:01 DC 10/01/24 16:22 7 UNIT Insulin Human Lispro (HumaLOG LISpro 100 UNIT/ML 3ML) 10 unit TIDAC SQ 10/01/24 17:00 10/01/24 19:41 DC Insulin Human Lispro (HumaLOG LISpro 100 UNIT/ML 3ML) 15 unit TIDAC SQ 10/02/24 07:30 10/02/24 07:20 DC 10/02/24 07:01 15 UNIT Insulin Human Lispro (HumaLOG LISpro 100 UNIT/ML 3ML) 20 unit TIDAC SQ 10/02/24 11:30 10/02/24 16:53 DC 10/02/24 11:48 20 UNIT Insulin Human Lispro (HumaLOG LISpro 100 UNIT/ML 3ML) 25 unit TIDAC SQ 10/02/24 17:00 10/03/24 12:53 DC 10/02/24 17:17 25 UNIT Insulin Human Regular (humuLIN R 100 UNIT/ML 3ML) 5 unit TIDAC SQ 10/06/24 07:30 10/06/24 19:15 DC 10/06/24 17:10 5 UNIT Insulin Human Regular (humuLIN R 100 UNIT/ML 3ML) 5 unit TIDAC SQ 10/07/24 17:00 10/08/24 05:46 DC 10/07/24 18:24 5 UNIT Insulin Human Regular (humuLIN R 100 UNIT/ML 3ML) 8 unit TIDAC SQ 10/08/24 07:30 10/08/24 12:41 DC 10/08/24 06:47 8 UNIT Insulin Human Regular (humuLIN R 100 UNIT/ML 3ML) 10 unit TIDAC SQ 10/07/24 07:30 10/07/24 12:41 DC Insulin Human Regular (humuLIN R 100 UNIT/ML 3ML) 12 unit TIDAC SQ 10/08/24 17:00 11/07/24 16:59 Insulin Human Regular (humuLIN R 100 UNIT/ML 3ML) INSULIN SLIDING SCAL... ACHS SQ 09/24/24 07:30 10/03/24 12:53 DC 10/03/24 05:48 10 UNIT Insulin Human Regular (humuLIN R 100 UNIT/ML 3ML) INSULIN SLIDING SCAL... ACHS SQ 10/06/24 07:30 11/05/24 07:29 10/08/24 06:51 4 UNIT Insulin Human Regular (humuLIN R 100 UNIT/ML 3ML) INSULIN SLIDING SCAL... ACHS SQ 10/05/24 16:30 10/06/24 06:12 DC Insulin Human Regular 100 unit/ Sodium Chloride 100 ml @ 0 mls/hr AD IV 10/03/24 13:00 10/05/24 12:59 DC 10/03/24 17:38 2 MLS/HR Insulin Human Regular 100 unit/ Sodium Chloride 101 ml @ 0 mls/hr PROTOCOL IV 09/21/24 20:00 09/23/24 21:20 DC 09/21/24 21:01 9.8 MLS/HR Insulin Human Regular 100 unit/ Sodium Chloride 101 ml @ 0 mls/hr PROTOCOL IV 09/22/24 00:00 09/22/24 00:03 DC Insulin Human Regular 100 unit/ Sodium Chloride 101 ml @ 0 mls/hr PROTOCOL IV 09/26/24 18:30 09/27/24 10:25 DC 09/26/24 18:36 10 MLS/HR Ipratropium Dora (AtrovENT UD) 0.5 MG Q6H PRN IH SHORTNESS OF BREATH 10/08/24 09:00 11/07/24 08:59 Lactulose (Constulose 20gm/ 30ml Udcup) 20 gm BID PRN PO CONSTIPATION 10/03/24 13:00 11/02/24 12:59 Magnesium Hydroxide (Milk Of Magnesium 30ml) 30 ml DAILY PRN PO CONSTIPATION 10/03/24 13:00 11/02/24 12:59 Magnesium Sulfate 50 ml @ 12.5 mls/hr AD PRN IV MAG LEVEL LESS THAN 2.0 10/03/24 13:00 11/02/24 12:59 10/03/24 17:21 12.5 MLS/HR Magnesium Sulfate 50 ml @ 0 mls/hr PROTOCOL IV 09/22/24 00:00 09/23/24 21:23 DC Magnesium Sulfate 50 ml @ 0 mls/hr PROTOCOL IV 09/26/24 18:30 09/27/24 10:25 DC Magnesium Sulfate 50 ml @ 0 mls/hr PROTOCOL PRN IV OTH 09/22/24 00:00 09/22/24 00:04 DC 09/21/24 23:52 25 MLS/HR Mannitol 245 ml @ 0 mls/hr AD IV 09/22/24 00:30 09/22/24 20:17 DC Mannitol 500 ml @ 0 mls/hr AD IV 09/22/24 00:30 09/22/24 14:33 DC Mannitol (Osmitrol 20% 250ml Bag) 49 gm AD IV 09/22/24 00:00 09/22/24 00:28 DC Methylprednisolone Sodium Succinate (Solu-medROL 40MG) 40 mg BID IVP 09/22/24 09:00 09/27/24 10:35 DC 09/26/24 20:37 40 MG Metoprolol Succinate (TopROL XL) 25 mg BID PO 09/26/24 09:00 10/03/24 12:53 DC 10/03/24 08:55 25 MG Metoprolol Succinate (TopROL XL) 50 mg BID PO 09/24/24 21:00 09/26/24 07:14 DC 09/24/24 19:45 50 MG Metoprolol Tartrate (loprESSOR) 12.5 mg BID PO 09/22/24 21:00 09/24/24 16:38 DC 09/24/24 12:07 12.5 MG Metoprolol Tartrate (loprESSOR) 12.5 mg BID PO 10/06/24 09:00 10/08/24 08:34 DC 10/08/24 08:00 12.5 MG Metoprolol Tartrate (loprESSOR) 25 mg BID PO 10/08/24 09:00 11/07/24 08:59 Miscellaneous Medication (Folic Acid/ Vitamin B Comp W-C (Ila-[place] Tablet)) 1 tab DAILY PO 09/23/24 09:00 09/22/24 15:56 DC Morphine Sulfate (morPHINE 2MG SYG) 0.5 mg Q2H PRN IV MODERATE PAIN (4-6) 10/03/24 13:00 10/04/24 10:49 DC 10/03/24 20:56 0.5 MG Morphine Sulfate (morPHINE 2MG SYG) 1 mg Q2H PRN IV SEVERE PAIN (7-10) 10/03/24 13:00 10/04/24 10:49 DC Morphine Sulfate (morPHINE 2MG SYG) 2 mg Q4H PRN IVP SEVERE PAIN (7-10) 09/26/24 01:30 10/01/24 04:29 DC Multivitamins Therapeutic (Multivitamin Tablet) 1 tab DAILY PO 09/23/24 09:00 10/23/24 08:59 10/08/24 08:00 1 TAB Nifedipine (adALAT 30MG) 60 mg DAILY PO 09/23/24 09:00 09/28/24 12:01 DC 09/25/24 08:37 60 MG Nitroglycerin (Nitroglycerin 1gm Oint) 0.5 inch Q8H TD 09/21/24 19:30 09/27/24 10:34 DC 09/25/24 12:44 0.5 INCH Nitroglycerin/ Dextrose 0 ml @ 0 mls/hr AD IV 10/03/24 13:00 10/06/24 12:59 DC Norepinephrine 250 ml @ 0 mls/hr AD PRN IV DIRECTED 09/26/24 01:30 09/27/24 10:34 DC 09/26/24 01:40 0 MLS/HR Norepinephrine Bitartrate 250 ml @ 0 mls/hr AD PRN IV TITRATE 10/03/24 10:00 11/02/24 09:59 Norepinephrine Bitartrate 8 mg/ Dextrose 250 ml @ 0 mls/hr AD PRN IV POST-OP CARDIOVASCULAR ORDERS 10/03/24 13:00 10/03/24 13:03 DC Ondansetron HCl (zoFRAN 4MG INJ) 4 mg Q6H PRN IV NAUSEA/VOMITING 10/03/24 13:00 11/02/24 12:59 10/04/24 16:35 4 MG Ondansetron HCl (zoFRAN 4MG INJ) 4 mg Q6H PRN IVP NAUSEA/VOMITING 09/26/24 01:30 10/03/24 12:53 DC 09/27/24 08:51 4 MG Oseltamivir Phosphate (Tamiflu) 75 mg DAILY PO 09/22/24 09:00 09/23/24 13:29 DC 09/23/24 08:38 75 MG Oseltamivir Phosphate (Tamiflu) 75 mg Q24H PO 09/26/24 17:00 09/27/24 17:01 DC 09/27/24 18:04 75 MG Oseltamivir Phosphate (Tamiflu) 75 mg QTUTHSA[DIALYSIS] PO 09/23/24 16:00 09/23/24 17:04 DC Oseltamivir Phosphate (Tamiflu) 75 mg QTUTHSA[DIALYSIS] PO 09/23/24 22:00 09/26/24 16:32 DC 09/25/24 16:09 75 MG Pantoprazole Sodium (PROTonix 40MG INJ) 40 mg BID IVP 09/27/24 21:00 10/03/24 12:53 DC 10/03/24 08:55 40 MG Pharmacy Profile Note (Pharmacy Communication) 1 each ONCE MISC 09/23/24 13:00 09/23/24 13:25 DC Pharmacy Profile Note (Pharmacy Communication) 1 each ONCE MISC 09/23/24 21:30 09/24/24 07:08 DC Pharmacy Profile Note (Pharmacy Communication) 1 each PROTOCOL PRN MISC ETOH Withdrawal Score changes 09/22/24 20:30 09/29/24 20:29 DC Piperacillin Sod/ Tazobactam Sod 50 ml @ 12.5 mls/hr Q12H IV 09/21/24 21:00 09/23/24 08:06 DC 09/22/24 20:43 12.5 MLS/HR Piperacillin Sod/ Tazobactam Sod (Zosyn 3.375gm+NS 50ml) 3.375 gm Q12H IV 09/26/24 11:30 10/06/24 08:29 DC 10/05/24 23:22 3.375 GM Potassium Chloride 20 meq/ Sodium Chloride 1,010 ml @ 0 mls/hr PROTOCOL IV 09/22/24 00:00 09/23/24 21:23 DC Potassium Chloride/Dextrose/ Sod Cl 1,000 ml @ 0 mls/hr AD IV 09/22/24 00:00 09/23/24 21:23 DC Potassium Phosphate 250 ml @ 42 mls/hr AD PRN IV LOW PHOS LEVEL 10/03/24 13:00 11/02/24 12:59 Potassium Chloride 100 ml @ 100 mls/hr AD PRN IV HYPOKALEMIA 10/03/24 13:00 11/02/24 12:59 Prednisone (deltaSONE/ oraSONE 20MG TAB) 20 mg DAILY PO 09/28/24 09:00 10/01/24 08:59 DC 09/30/24 08:50 20 MG Propofol 100 ml @ 0 mls/hr AD PRN IV SEDATION 10/03/24 13:00 10/07/24 12:59 DC Sodium Bicarbonate (Sodium Bicarbonate) 650 mg TID PO 09/24/24 09:00 09/27/24 10:34 DC 09/26/24 20:36 650 MG Sodium Bicarbonate (Sodium Bicarb 50meq 50ml Vial) 50 meq AD PRN IV OTHER[SEE DOSING INSTRUCTIONS] 10/03/24 13:00 10/06/24 12:59 DC 10/03/24 20:57 50 MEQ Sodium Chloride 250 ml @ 0 mls/hr Q0M IV 09/25/24 23:00 09/27/24 10:34 DC Sodium Chloride 500 ml @ 0 mls/hr AD IV 10/03/24 13:00 11/02/24 12:59 Sodium Chloride 1,000 ml @ 0 mls/hr ONCE IV 09/23/24 19:30 09/27/24 13:51 DC 09/26/24 12:15 1,000 MLS/HR Sodium Chloride 1,000 ml @ 0 mls/hr ONCE IV 09/27/24 14:30 09/27/24 13:51 DC Sodium Chloride 1,000 ml @ 0 mls/hr ONCE IV 09/27/24 15:00 10/27/24 14:59 10/07/24 09:59 1,000 MLS/HR Sodium Chloride 1,000 ml @ 10 mls/hr ONCE IV 10/03/24 13:00 10/04/24 12:59 DC Sodium Chloride 1,000 ml @ 100 mls/hr Q10H IV 09/21/24 19:30 09/27/24 10:34 DC 09/23/24 12:53 100 MLS/HR Sodium Chloride 1,000 ml @ 200 mls/hr PROTOCOL IV 09/22/24 00:00 09/23/24 21:23 DC Sodium Chloride (NS Flush 10ml) 10 ml Q8H PRN IVP IV LINE FLUSH 10/03/24 13:00 11/02/24 12:59 Thiamine HCl 100 mg/Folic Acid 1 mg/Multivitamins/ Minerals 10 ml/ Sodium Chloride 1,011.2 ml @ 100 mls/ hr Q24H IV 09/22/24 20:30 09/25/24 06:37 DC 09/22/24 20:43 100 MLS/HR Tramadol HCl (UltRAM) 25 mg Q6H PRN PO MODERATE PAIN (4-6) 10/03/24 13:00 10/08/24 12:59 DC Tramadol HCl (UltRAM) 50 mg Q6H PRN PO SEVERE PAIN (7-10) 10/03/24 13:00 10/08/24 12:59 DC 10/08/24 08:01 50 MG Vancomycin HCl 250 ml @ 125 mls/hr Q72H IV 09/22/24 20:30 09/23/24 08:04 DC 09/22/24 20:48 125 MLS/HR Vancomycin HCl (Vancomycin 500mg+NS 100ml Ivpb) 1,000 mg DAILY08 IV 09/23/24 08:00 09/22/24 20:26 DC Vancomycin HCl (Vancomycin 750mg) 750 mg MWFPHD IVPB 09/26/24 16:00 10/03/24 23:29 DC Vancomycin HCl (Vancomycin 750mg) 750 mg Q24H IVPB 09/23/24 23:30 09/25/24 06:26 DC 09/24/24 22:43 750 MG Vasopressin 20 units/Sodium Chloride 100 ml @ 0 mls/hr PROTOCOL IV 10/03/24 19:30 11/02/24 19:29 10/04/24 06:34 9 MLS/HR Vitamin B Complex (Vitamin B-12) 1,000 mcg DAILY PO 10/08/24 09:00 11/07/24 08:59 10/08/24 08:02 1,000 MCG Vitamin B Complex/ Vit C/Folic Acid (Nephrovite Tablet) 1 cap DAILY PO 09/23/24 09:00 10/23/24 08:59 10/08/24 08:00 1 CAP DIAGNOSTICS / RADIOLOGY: PATIENT: ADRIANA ABRAHAM MR#: [id number] : 1975 SEX: M AGE: 49 LOCATION: 2DH ORDER 2300 STATUS: ADM IN REPORT#: [id number] SERVICE 0400 REASON: s/p CABG ORDERING PHYSICIAN: CANDIDA SZYMANSKI MD PROCEDURE: CXR1VW - CHEST 1VW CHEST 1VW HISTORY: Post CABG COMPARISON: 10/07/2024 FINDINGS: A frontal projection of the chest was obtained. Mild bilateral pulmonary infiltrates are seen may be related to mild pulmonary vascular congestion with possible superimposed pneumonitis. Poststernotomy changes are seen. The heart is enlarged. Degenerative changes of the thoracolumbar spine are present. All the lines and tubes are again seen in place. No evidence of aortic calcification is seen. IMPRESSION: 1. Mild bilateral pulmonary infiltrates are seen may be related to mild pulmonary vascular congestion with possible superimposed pneumonitis. DICTATED BY: JENNIFER MESA MD DATE: 10/08/241312 ELECTRONICALLY SIGNED BY: JENNIFER MESA MD DATE: 10/08/241315 ASSESSMENT: Hyperosmolar Hyperglycemic Syndrome POA, resolved NSTEMI POA Influenza bronchopneumonia with sepsis POA, resolving Acute Hypoxemic Respiratory Failure POA Acute on chronic renal failure with concern for ATN POA Metabolic acidosis POA Lactic acidosis POA CKD stage 4 POA Uncontrolled Diabetes POA Protein Calorie malnutrition POA PLAN: POD [address] Szymanski PermCath placement in the morning Hemodialysis as per nephrology recommendations Dr. Hinton recommendations on thrombocytopenia - pheresis platelets 6 minute walk test and physical therapy Iron profile and APR labs Continue broad-spectrum antibiotics Continue to trend WBC in Continue to replace electrolytes IV protocol Continue the patient on long-acting as well as insulin sliding scale Follow a.m. labs GI and DVT prophylaxis ATTESTATION BY PHYSICIAN I have seen and examined the patient. I reviewed the documentation, medical decision making, and treatment plan as noted by the resident provider above. I agree with the findings and plan of care. Dieudonne Farley MD, NIHITHA MD Oct 08, 2024 15:38
[2024-10-08 17:09] LABS: GLYCOPROTEIN IV ANTIBODY Negative (Negative); HLA CLASS 1 ANTIBODY Negative (Negative); IIb/IIIa PLATELET ANTIBODY Negative (Negative)
--- NOTE | 2024-10-08 18:29 | NUR ---
CM NOTE/O2 APPROVED CM spoke to Fazal with [employer]. States patient has been approved portable oxygen concentrator. Reports they attempted to call spouse for delivery but patient is not discharging today. Patient is now pending a permacath. Addendum: 10/08/24 at 1831 by MELIDA ORTEGA CM Amended: Links added.
--- NOTE | 2024-10-08 20:16 | PN ---
endocrinology progress note Date of Service: 10/08/2024 subjective: s/p CABG and extubated now. patient is off insulin drip. home regimen: novolin 70/30 insulin 70 units twice per day. glucose are elevated. REVIEW OF SYSTEMS extubated now PAST MEDICAL HISTORY: Chronic kidney disease Diabetes type 2 Hypertension Hyperlipidemia Obesity PAST SURGICAL HISTORY: Left eye cataract surgery one month ago PAST SOCIAL HISTORY: Patient lives with . Patient denies alcohol tobacco and recreational drug use FAMILY HISTORY: Noncontributory Coded Allergies: No Known Allergies (Unverified Allergy, Unknown, 03/27/22) ASSESSMENT: Hyperosmolar Hyperglycemic Syndrome POA resolved s/p CABG and extubated now. patient is off insulin drip. glucose are elevated. Uncontrolled Diabetes POA hba1c 12.9% home regimen: novolin 70/30 insulin 70 units twice per day. NSTEMI POA cath shows CAD and s/p CABG Influenza bronchopneumonia with sepsis POA Acute Hypoxemic Respiratory Failure POA Acute on chronic renal failure with concern for ATN POA ON HD Metabolic acidosis POA Lactic acidosis POA CKD stage 4 POA Protein Calorie malnutrition POA PLAN: increase lantus to 20 units daily increase regular insulin to 15 units tid before meals continue medium dose ssi monitor glucose qx6 hourly Vitals/Labs Vital Signs Date Time Temp Pulse Resp B/P (MAP) Pulse Ox O2 Delivery O2 Flow Rate FiO2 10/08/24 19:19 98.1 87 16 137/82 98 Nasal Cannula 2.0 10/08/24 19:00 28 Laboratory Tests 10/07/24 20:16 10/08/24 03:17 Medications Current Medications Ceftriaxone Sodium 1 gm ONCE ONCE IVPB; Start 09/21/24 at 18:00; Stop 09/21/24 at 18:13; Status DC Azithromycin 250 ml @ 250 mls/hr Q24H IVPB; Start 09/21/24 at 18:00; Stop 09/21/24 at 18:14; Status DC Promethazine HCl/ Codeine 10 ml ONCE ONCE PO; Start 09/21/24 at 18:00; Stop 09/21/24 at 18:01; Status DC Piperacillin Sod/ Tazobactam Sod 3.375 gm ONCE ONCE IVPB Last administered on 09/21/24at 18:35; Start 09/21/24 at 18:30; Stop 09/21/24 at 18:31; Status DC Insulin Human Regular 10 unit ONCE ONCE IV Last administered on 09/21/24at 18:36; Start 09/21/24 at 18:30; Stop 09/21/24 at 18:31; Status DC Metoprolol Tartrate 5 mg ONCE ONCE IV Last administered on 09/21/24at 18:32; Start 09/21/24 at 18:30; Stop 09/21/24 at 18:31; Status DC Heparin Sodium (Porcine) *calculation based on ACTUAL B... AD PRN IV; Start 09/21/24 at 19:30; Stop 09/26/24 at 07:14; Status DC Heparin Sodium/ Dextrose 250 ml @ 0 mls/hr Q6H IV Last administered on 09/25/24at 04:13; Start 09/21/24 at 19:30; Stop 09/26/24 at 18:36; Status DC Sodium Chloride 1,000 ml @ 0 mls/hr ONCE ONCE IV Last administered on 09/21/24at 18:37; Start 09/21/24 at 18:30; Stop 09/21/24 at 18:31; Status DC Ondansetron HCl 4 mg STK-MED ONCE .ROUTE Last administered on 09/21/24at 18:31; Start 09/21/24 at 18:29; Stop 09/21/24 at 18:29; Status DC Oseltamivir Phosphate 75 mg ONCE ONCE PO Last administered on 09/21/24at 18:45; Start 09/21/24 at 19:00; Stop 09/21/24 at 19:01; Status DC Acetaminophen 650 mg Q6H PRN PO; Start 09/21/24 at 19:30; Stop 10/03/24 at 12:53; Status DC Acetaminophen 650 mg Q4H PRN PO Last administered on 09/30/24at 01:32; Start 09/21/24 at 19:30; Stop 10/03/24 at 12:53; Status DC Guaifenesin/ Dextromethorphan 10 ml Q4H PRN PO Last administered on 09/23/24at 22:06; Start 09/21/24 at 19:30; Stop 10/03/24 at 12:53; Status DC Albuterol 1 udvial [id number] [id number] Last administered on 09/25/24at 06:43; Start 09/21/24 at 22:00; Stop 09/25/24 at 09:59; Status DC Famotidine 10 mg Q48H PO; Start 09/21/24 at 19:30; Stop 09/21/24 at 20:00; Status DC Nitroglycerin 0.5 inch Q8H TD Last administered on 09/25/24at 12:44; Start 09/21/24 at 19:30; Stop 09/27/24 at 10:34; Status DC Piperacillin Sod/ Tazobactam Sod 50 ml @ 12.5 mls/hr Q12H IV Last administered on 09/22/24at 20:43; Start 09/21/24 at 21:00; Stop 09/23/24 at 08:06; Status DC Sodium Chloride 1,000 ml @ 100 mls/hr Q10H IV Last administered on 09/23/24at 12:53; Start 09/21/24 at 19:30; Stop 09/27/24 at 10:34; Status DC Oseltamivir Phosphate 75 mg DAILY PO Last administered on 09/23/24at 08:38; Start 09/22/24 at 09:00; Stop 09/23/24 at 13:29; Status DC Doxycycline Hyclate 100 mg BID PO Last administered on 09/30/24at 20:53; Start 09/21/24 at 21:00; Stop 09/30/24 at 23:59; Status DC Aspirin 81 mg DAILY PO Last administered on 10/08/24at 07:59; Start 09/22/24 at 09:00; Stop 10/22/24 at 08:59 Insulin Human Regular 100 unit/ Sodium Chloride 101 ml @ 0 mls/hr PROTOCOL IV Last administered on 09/21/24at 21:01; Start 09/21/24 at 20:00; Stop 09/23/24 at 21:20; Status DC Famotidine 10 mg DAILY IV Last administered on 09/27/24at 09:09; Start 09/22/24 at 09:00; Stop 09/27/24 at 10:35; Status DC Alprazolam 0.5 mg ONCE ONCE PO Last administered on 09/21/24at 21:44; Start 09/21/24 at 22:00; Stop 09/21/24 at 22:01; Status DC Magnesium Sulfate 50 ml @ 0 mls/hr PROTOCOL PRN IV Last administered on 09/21/24at 23:52; Start 09/22/24 at 00:00; Stop 09/22/24 at 00:04; Status DC Magnesium Sulfate 50 ml @ As Directed STK-MED ONCE IV; Start 09/21/24 at 23:49; Stop 09/21/24 at 23:49; Status DC Sodium Chloride 1,000 ml @ 200 mls/hr PROTOCOL IV; Start 09/22/24 at 00:00; Stop 09/23/24 at 21:23; Status DC Potassium Chloride/Dextrose/ Sod Cl 1,000 ml @ 0 mls/hr AD IV; Start 09/22/24 at 00:00; Stop 09/23/24 at 21:23; Status DC Potassium Chloride 20 meq/ Sodium Chloride 1,010 ml @ 0 mls/hr PROTOCOL IV; Start 09/22/24 at 00:00; Stop 09/23/24 at 21:23; Status DC Magnesium Sulfate 50 ml @ 0 mls/hr PROTOCOL IV; Start 09/22/24 at 00:00; Stop 09/23/24 at 21:23; Status DC Insulin Human Regular 100 unit/ Sodium Chloride 101 ml @ 0 mls/hr PROTOCOL IV; Start 09/22/24 at 00:00; Stop 09/22/24 at 00:03; Status DC Mannitol 49 gm AD IV; Start 09/22/24 at 00:00; Stop 09/22/24 at 00:28; Status DC Dextrose/Sodium Chloride 1,000 ml @ 0 mls/hr AD IV Last administered on 09/22/24at 09:49; Start 09/22/24 at 00:00; Stop 09/23/24 at 21:23; Status DC Methylprednisolone Sodium Succinate 125 mg ONCE ONCE IVP Last administered on 09/22/24at 01:35; Start 09/22/24 at 00:30; Stop 09/22/24 at 00:31; Status DC Methylprednisolone Sodium Succinate 40 mg BID IVP Last administered on 09/26/24at 20:37; Start 09/22/24 at 09:00; Stop 09/27/24 at 10:35; Status DC Mannitol 245 ml @ 0 mls/hr AD IV; Start 09/22/24 at 00:30; Stop 09/22/24 at 20:17; Status DC Atorvastatin Calcium 40 mg HS PO; Start 09/22/24 at 21:00; Stop 09/22/24 at 20:17; Status DC Mannitol 500 ml @ 0 mls/hr AD IV; Start 09/22/24 at 00:30; Stop 09/22/24 at 14:33; Status DC Sodium Chloride 4 ml STK-MED ONCE IH; Start 09/22/24 at 05:59; Stop 09/22/24 at 06:00; Status DC Vitamin B Complex/ Vit C/Folic Acid 1 cap DAILY PO Last administered on 10/08/24at 08:00; Start 09/23/24 at 09:00; Stop 10/23/24 at 08:59 Furosemide 80 mg Q12H IV Last administered on 09/26/24at 13:20; Start 09/22/24 at 21:00; Stop 09/26/24 at 15:22; Status DC Nifedipine 60 mg DAILY PO Last administered on 09/25/24at 08:37; Start 09/23/24 at 09:00; Stop 09/28/24 at 12:01; Status DC Ferrous Sulfate 325 mg DAILY PO Last administered on 10/08/24at 08:00; Start 09/23/24 at 09:00; Stop 10/23/24 at 08:59 Miscellaneous Medication 1 tab DAILY PO; Start 09/23/24 at 09:00; Stop 09/22/24 at 15:56; Status DC Chlordiazepoxide HCl 25 mg Q2H PRN PO Last administered on 09/28/24at 23:59; Start 09/22/24 at 20:30; Stop 09/29/24 at 20:29; Status DC Chlordiazepoxide HCl 50 mg Q1H PRN PO; Start 09/22/24 at 20:30; Stop 09/29/24 at 20:29; Status DC Thiamine HCl 100 mg/Folic Acid 1 mg/Multivitamins/ Minerals 10 ml/ Sodium Chloride 1,011.2 ml @ 100 mls/ hr Q24H IV Last administered on 09/22/24at 20:43; Start 09/22/24 at 20:30; Stop 09/25/24 at 06:37; Status DC Multivitamins Therapeutic 1 tab DAILY PO Last administered on 10/08/24at 08:00; Start 09/23/24 at 09:00; Stop 10/23/24 at 08:59 Pharmacy Profile Note 1 each PROTOCOL PRN MISC; Start 09/22/24 at 20:30; Stop 09/29/24 at 20:29; Status DC Fish Oil 2,000 mg BID PO Last administered on 10/02/24at 20:38; Start 09/22/24 at 21:00; Stop 10/03/24 at 12:53; Status DC Metoprolol Tartrate 12.5 mg BID PO Last administered on 09/24/24at 12:07; Start 09/22/24 at 21:00; Stop 09/24/24 at 16:38; Status DC Insulin Glargine 10 units BID@0730,2100 SQ Last administered on 09/25/24at 20:44; Start 09/22/24 at 21:00; Stop 09/26/24 at 11:15; Status DC Vancomycin HCl 1,000 mg DAILY08 IV; Start 09/23/24 at 08:00; Stop 09/22/24 at 20:26; Status DC Vancomycin HCl 250 ml @ 125 mls/hr Q72H IV Last administered on 09/22/24at 20:48; Start 09/22/24 at 20:30; Stop 09/23/24 at 08:04; Status DC Atorvastatin Calcium 40 mg STK-MED ONCE .ROUTE; Start 09/22/24 at 20:41; Stop 09/22/24 at 20:41; Status DC Sodium Bicarbonate 100 meq ONCE ONCE IV Last administered on 09/23/24at 08:40; Start 09/23/24 at 08:00; Stop 09/23/24 at 08:08; Status DC Cefepime HCl 1 gm Q24H IVPB Last administered on 09/25/24at 08:36; Start 09/23/24 at 08:30; Stop 09/26/24 at 11:14; Status DC Pharmacy Profile Note 1 each ONCE MISC; Start 09/23/24 at 13:00; Stop 09/23/24 at 13:25; Status DC Oseltamivir Phosphate 75 mg QTUTHSA[DIALYSIS] PO; Start 09/23/24 at 16:00; Stop 09/23/24 at 17:04; Status DC Oseltamivir Phosphate 75 mg QTUTHSA[DIALYSIS] PO Last administered on 09/25/24at 16:09; Start 09/23/24 at 22:00; Stop 09/26/24 at 16:32; Status DC Atorvastatin Calcium 20 mg HS PO Last administered on 09/26/24at 20:36; Start 09/23/24 at 21:00; Stop 09/27/24 at 10:38; Status DC Clopidogrel Bisulfate 300 mg ONCE ONCE PO Last administered on 09/23/24at 19:04; Start 09/23/24 at 17:30; Stop 09/23/24 at 17:31; Status DC Clopidogrel Bisulfate 75 mg DAILY PO Last administered on 09/25/24at 08:38; Start 09/24/24 at 09:00; Stop 09/26/24 at 07:14; Status DC Lidocaine HCl 20 ml STK-MED ONCE .ROUTE; Start 09/23/24 at 17:17; Stop 09/23/24 at 17:17; Status DC Heparin Sodium/ Sodium Chloride 500 ml @ As Directed STK-MED ONCE IV; Start 09/23/24 at 17:17; Stop 09/23/24 at 17:18; Status DC Heparin Sodium (Porcine) 1,000 unit STK-MED ONCE .ROUTE; Start 09/23/24 at 17:24; Stop 09/23/24 at 17:24; Status DC Albumin Human 100 ml ONCE ONCE IV Last administered on 09/23/24at 19:53; Start 09/23/24 at 19:30; Stop 09/23/24 at 19:31; Status DC Sodium Chloride 1,000 ml @ 0 mls/hr ONCE IV Last administered on 09/26/24at 12:15; Start 09/23/24 at 19:30; Stop 09/27/24 at 13:51; Status DC Pharmacy Profile Note 1 each ONCE MISC; Start 09/23/24 at 21:30; Stop 09/24/24 at 07:08; Status DC Sodium Bicarbonate 650 mg TID PO Last administered on 09/26/24at 20:36; Start 09/24/24 at 09:00; Stop 09/27/24 at 10:34; Status DC Insulin Human Regular INSULIN SLIDING SCAL... ACHS SQ Last administered on 10/03/24at 05:48; Start 09/24/24 at 07:30; Stop 10/03/24 at 12:53; Status DC Vancomycin HCl 750 mg Q24H IVPB Last administered on 09/24/24at 22:43; Start 09/23/24 at 23:30; Stop 09/25/24 at 06:26; Status DC Fluconazole/ Sodium Chloride 800 mg ONCE ONCE IV; Start 09/24/24 at 14:00; Stop 09/24/24 at 13:50; Status DC Epoetin Moses-epbx 10,000 unit ONCE ONCE SQ Last administered on 09/24/24at 18:43; Start 09/24/24 at 16:00; Stop 09/24/24 at 16:01; Status DC Metoprolol Tartrate 5 mg STK-MED ONCE IV; Start 09/24/24 at 15:57; Stop 09/24/24 at 15:57; Status DC Metoprolol Succinate 50 mg BID PO Last administered on 09/24/24at 19:45; Start 09/24/24 at 21:00; Stop 09/26/24 at 07:14; Status DC Metoprolol Succinate 50 mg STK-MED ONCE PO; Start 09/24/24 at 19:28; Stop 09/24/24 at 19:28; Status DC Gabapentin 100 mg TID PO Last administered on 09/30/24at 14:07; Start 09/24/24 at 21:00; Stop 09/30/24 at 17:37; Status DC Vancomycin HCl 750 mg [id number] IVPB; Start 09/26/24 at 16:00; Stop 10/03/24 at 23:29; Status DC Metoprolol Succinate 100 mg ONCE ONCE PO Last administered on 09/25/24at 08:37; Start 09/25/24 at 08:30; Stop 09/25/24 at 08:31; Status DC Albuterol 1 udvial [id number] IH Last administered on 09/26/24at 11:17; Start 09/25/24 at 10:00; Stop 09/26/24 at 15:22; Status DC Metoprolol Tartrate 50 mg ONCE ONCE PO Last administered on 09/25/24at 16:09; Start 09/25/24 at 15:00; Stop 09/25/24 at 15:01; Status DC Epoetin Moses-epbx 10,000 unit ONCE ONCE SQ Last administered on 09/25/24at 17:52; Start 09/25/24 at 15:00; Stop 09/25/24 at 15:01; Status DC Fluconazole/ Sodium Chloride 200 mg Q24H IV Last administered on 09/26/24at 14:38; Start 09/25/24 at 16:00; Stop 09/27/24 at 10:36; Status DC Ondansetron HCl 4 mg STK-MED ONCE .ROUTE; Start 09/25/24 at 22:35; Stop 09/25/24 at 22:41; Status DC Sodium Chloride 250 ml @ 0 mls/hr Q0M IV; Start 09/25/24 at 23:00; Stop 09/27/24 at 10:34; Status DC Albumin Human 100 ml @ 0 mls/hr AD STAT IV Last administered on 09/25/24at 23:17; Start 09/25/24 at 23:09; Stop 09/25/24 at 23:12; Status DC Norepinephrine 250 ml @ 0 mls/hr AD PRN IV Last administered on 09/26/24at 01:40; Start 09/26/24 at 01:30; Stop 09/27/24 at 10:34; Status DC Ondansetron HCl 4 mg Q6H PRN IVP Last administered on 09/27/24at 08:51; Start 09/26/24 at 01:30; Stop 10/03/24 at 12:53; Status DC Morphine Sulfate 2 mg Q4H PRN IVP; Start 09/26/24 at 01:30; Stop 10/01/24 at 04:29; Status DC Ondansetron HCl 4 mg STK-MED ONCE .ROUTE; Start 09/26/24 at 01:21; Stop 09/26/24 at 01:21; Status DC Norepinephrine 250 ml @ As Directed STK-MED ONCE IV; Start 09/26/24 at 01:22; Stop 09/26/24 at 01:22; Status DC Metoprolol Succinate 25 mg BID PO Last administered on 10/03/24at 08:55; Start 09/26/24 at 09:00; Stop 10/03/24 at 12:53; Status DC Piperacillin Sod/ Tazobactam Sod 3.375 gm Q12H IV Last administered on 10/05/24at 23:22; Start 09/26/24 at 11:30; Stop 10/06/24 at 08:29; Status DC Insulin Glargine 15 units BID@0730,2100 SQ Last administered on 09/30/24at 07:03; Start 09/26/24 at 21:00; Stop 09/30/24 at 17:13; Status DC Albuterol 1 udvial [id number] PRN IH; Start 09/26/24 at 15:30; Stop 10/08/24 at 08:49; Status DC Oseltamivir Phosphate 75 mg Q24H PO Last administered on 09/27/24at 18:04; Start 09/26/24 at 17:00; Stop 09/27/24 at 17:01; Status DC Magnesium Sulfate 50 ml @ 0 mls/hr PROTOCOL IV; Start 09/26/24 at 18:30; Stop 09/27/24 at 10:25; Status DC Insulin Human Regular 100 unit/ Sodium Chloride 101 ml @ 0 mls/hr PROTOCOL IV Last administered on 09/26/24at 18:36; Start 09/26/24 at 18:30; Stop 09/27/24 at 10:25; Status DC Pantoprazole Sodium 40 mg BID IVP Last administered on 10/03/24at 08:55; Start 09/27/24 at 21:00; Stop 10/03/24 at 12:53; Status DC Pantoprazole Sodium 40 mg ONCE ONCE IVP Last administered on 09/27/24at 12:08; Start 09/27/24 at 12:00; Stop 09/27/24 at 12:01; Status DC Sodium Chloride 1,000 ml @ 0 mls/hr ONCE IV; Start 09/27/24 at 14:30; Stop 09/27/24 at 13:51; Status DC Sodium Chloride 1,000 ml @ 0 mls/hr ONCE IV Last administered on 10/07/24at 09:59; Start 09/27/24 at 15:00; Stop 10/27/24 at 14:59 Heparin Sodium (Porcine) 10,000 unit AD IRRIG Last administered on 10/01/24at 17:18; Start 09/27/24 at 14:00; Stop 10/27/24 at 13:59 Prednisone 20 mg DAILY PO Last administered on 09/30/24at 08:50; Start 09/28/24 at 09:00; Stop 10/01/24 at 08:59; Status DC Iohexol 35,000 mg STK-MED ONCE IV; Start 09/29/24 at 11:19; Stop 09/29/24 at 11:20; Status DC Iohexol 50 ml STK-MED ONCE IV; Start 09/29/24 at 12:17; Stop 09/29/24 at 12:17; Status DC Metoprolol Tartrate 5 mg STK-MED ONCE IV; Start 09/29/24 at 12:23; Stop 09/29/24 at 12:24; Status DC Epoetin Moses-epbx 10,000 unit ONCE ONCE SQ Last administered on 09/29/24at 16:48; Start 09/29/24 at 16:30; Stop 09/29/24 at 16:31; Status DC Albumin Human 100 ml ONCE ONCE IV; Start 09/29/24 at 15:15; Stop 09/29/24 at 16:54; Status DC Epoetin Moses-epbx 10,000 unit [id number] SQ Last administered on 10/01/24at 15:34; Start 10/01/24 at 09:00; Stop 10/06/24 at 15:12; Status DC Clopidogrel Bisulfate 75 mg DAILY PO Last administered on 09/30/24at 08:49; Start 09/30/24 at 09:00; Stop 10/01/24 at 08:26; Status DC Atorvastatin Calcium 40 mg HS PO Last administered on 10/07/24at 20:53; Start 09/30/24 at 21:00; Stop 10/30/24 at 20:59 Sodium Bicarbonate 100 meq ONCE ONCE IV Last administered on 09/30/24at 10:28; Start 09/30/24 at 09:00; Stop 09/30/24 at 09:01; Status DC Calcium Carbonate 1,000 mg TID PO Last administered on 10/06/24at 19:50; Start 09/30/24 at 14:00; Stop 10/07/24 at 00:52; Status DC Ergocalciferol 50,000 unit ONCE ONCE PO Last administered on 09/30/24at 14:07; Start 09/30/24 at 14:00; Stop 09/30/24 at 14:01; Status DC Insulin Glargine 20 units AM SQ; Start 10/01/24 at 09:00; Stop 09/30/24 at 17:26; Status DC Insulin Glargine 10 units HS SQ; Start 09/30/24 at 21:00; Stop 09/30/24 at 17:26; Status DC Insulin Glargine 30 units HS SQ Last administered on 10/01/24at 19:54; Start 09/30/24 at 21:00; Stop 10/02/24 at 07:19; Status DC Insulin Human Lispro 7 unit TIDAC SQ Last administered on 10/01/24at 16:22; Start 10/01/24 at 07:30; Stop 10/01/24 at 17:01; Status DC Dextrose 50 ml AD PRN IV; Start 09/30/24 at 17:30; Stop 10/01/24 at 08:25; Status DC Glucagon 1 mg AD PRN IM; Start 09/30/24 at 17:30; Stop 10/01/24 at 08:25; Status DC Gabapentin 100 mg DAILY PO Last administered on 10/08/24at 08:00; Start 10/01/24 at 09:00; Stop 10/24/24 at 20:59 Melatonin 5 mg ONCE ONCE PO Last administered on 09/30/24at 23:05; Start 09/30/24 at 23:00; Stop 09/30/24 at 23:01; Status DC Lidocaine HCl 20 ml STK-MED ONCE .ROUTE; Start 10/01/24 at 07:12; Stop 10/01/24 at 07:13; Status DC Iohexol 35,000 mg STK-MED ONCE IV; Start 10/01/24 at 07:12; Stop 10/01/24 at 07:14; Status DC Heparin Sodium (Porcine) 10,000 unit STK-MED ONCE .ROUTE; Start 10/01/24 at 07:12; Stop 10/01/24 at 07:14; Status DC Heparin Sodium/ Sodium Chloride 1,000 ml @ As Directed STK-MED ONCE IV; Start 10/01/24 at 07:12; Stop 10/01/24 at 07:14; Status DC Nitroglycerin 50 mg STK-MED ONCE .ROUTE; Start 10/01/24 at 07:12; Stop 10/01/24 at 07:14; Status DC Fentanyl Citrate 100 mcg STK-MED ONCE .ROUTE; Start 10/01/24 at 07:40; Stop 10/01/24 at 07:40; Status DC Midazolam HCl 2 mg STK-MED ONCE .ROUTE; Start 10/01/24 at 07:40; Stop 10/01/24 at 07:40; Status DC Verapamil HCl 5 mg STK-MED ONCE .ROUTE; Start 10/01/24 at 07:59; Stop 10/01/24 at 07:59; Status DC Dextrose 50 ml AD PRN IV Last administered on 10/05/24at 05:14; Start 10/01/24 at 08:30; Stop 10/31/24 at 08:29 Glucagon 1 mg AD PRN IM; Start 10/01/24 at 08:30; Stop 10/31/24 at 08:29 Hydralazine HCl 5 mg ONCE ONCE IV Last administered on 10/01/24at 18:26; Start 10/01/24 at 16:30; Stop 10/01/24 at 16:31; Status DC Hydralazine HCl 10 mg Q6H PRN IV; Start 10/01/24 at 16:30; Stop 10/03/24 at 12:53; Status DC Calcium Gluconate 1 gm/Sodium Chloride 100 ml @ 0 mls/hr PROTOCOL IV; Start 10/01/24 at 17:00; Stop 10/03/24 at 12:53; Status DC Insulin Human Lispro 10 unit TIDAC SQ; Start 10/01/24 at 17:00; Stop 10/01/24 at 19:41; Status DC Insulin Human Lispro 15 unit TIDAC SQ Last administered on 10/02/24at 07:01; Start 10/02/24 at 07:30; Stop 10/02/24 at 07:20; Status DC Insulin Glargine 50 units DAILY SQ Last administered on 10/02/24at 09:41; Start 10/02/24 at 07:30; Stop 10/02/24 at 16:53; Status DC Insulin Human Lispro 20 unit TIDAC SQ Last administered on 10/02/24at 11:48; Start 10/02/24 at 11:30; Stop 10/02/24 at 16:53; Status DC Cefazolin Sodium 2 gm ONCALL IVPB; Start 10/02/24 at 10:30; Stop 10/03/24 at 13:09; Status DC Insulin Glargine 50 units BID SQ Last administered on 10/03/24at 09:02; Start 10/02/24 at 21:00; Stop 10/03/24 at 12:53; Status DC Insulin Human Lispro 25 unit TIDAC SQ Last administered on 10/02/24at 17:17; Start 10/02/24 at 17:00; Stop 10/03/24 at 12:53; Status DC Cefazolin Sodium 1 gm STK-MED ONCE .ROUTE; Start 10/03/24 at 07:24; Stop 10/03/24 at 07:29; Status DC Heparin Sodium/ Sodium Chloride 500 ml @ As Directed STK-MED ONCE IV; Start 10/03/24 at 07:24; Stop 10/03/24 at 07:29; Status DC Papaverine HCl 60 mg STK-MED ONCE .ROUTE; Start 10/03/24 at 07:24; Stop 10/03/24 at 07:29; Status DC Epinephrine HCl 10 mg/Sodium Chloride 250 ml @ 0 mls/hr AD PRN IV Last administered on 10/04/24at 06:35; Start 10/03/24 at 10:00; Stop 11/02/24 at 09:59 Norepinephrine Bitartrate 250 ml @ 0 mls/hr AD PRN IV; Start 10/03/24 at 10:00; Stop 11/02/24 at 09:59 Aminocaproic Acid 43208 mg/Sodium Chloride 480 ml @ 0 mls/hr AD PRN IV; Start 10/03/24 at 10:00; Stop 11/02/24 at 09:59 Lidocaine HCl/ Dextrose 250 ml @ As Directed STK-MED ONCE IV; Start 10/03/24 at 11:16; Stop 10/03/24 at 11:17; Status DC Nitroglycerin/ Dextrose 1 ml @ As Directed STK-MED ONCE .ROUTE; Start 10/03/24 at 11:16; Stop 10/03/24 at 11:17; Status DC Dextrose 50 ml STK-MED ONCE IV; Start 10/03/24 at 11:44; Stop 10/03/24 at 11:44; Status DC Cefazolin Sodium 2 gm STK-MED ONCE .ROUTE; Start 10/03/24 at 12:52; Stop 10/03/24 at 12:52; Status DC Acetaminophen 1,000 mg Q6H6 IV Last administered on 10/04/24at 11:18; Start 10/03/24 at 18:00; Stop 10/04/24 at 17:59; Status DC Aspirin 81 mg ONCE ONCE NG Last administered on 10/03/24at 17:31; Start 10/03/24 at 17:00; Stop 10/03/24 at 17:02; Status DC Docusate Sodium 100 mg BID PO Last administered on 10/08/24at 08:02; Start 10/03/24 at 21:00; Stop 11/02/24 at 20:59 Lactulose 20 gm BID PRN PO; Start 10/03/24 at 13:00; Stop 11/02/24 at 12:59 Atorvastatin Calcium 40 mg HS PO; Start 10/03/24 at 21:00; Stop 10/03/24 at 12:58; Status DC Magnesium Hydroxide 30 ml DAILY PRN PO; Start 10/03/24 at 13:00; Stop 11/02/24 at 12:59 Dexmedetomidine/ Sodium Chloride 400 mcg PROTOCOL IV; Start 10/03/24 at 13:00; Stop 10/04/24 at 12:59; Status DC Acetaminophen 650 mg Q6H PRN PO Last administered on 10/07/24at 20:54; Start 10/03/24 at 13:00; Stop 11/02/24 at 12:59 Protamine Sulfate 250 mg STK-MED ONCE IV; Start 10/03/24 at 12:54; Stop 10/03/24 at 12:55; Status DC Lidocaine HCl 100 mg STK-MED ONCE .ROUTE; Start 10/03/24 at 12:55; Stop 10/03/24 at 12:55; Status DC Heparin Sodium (Porcine) 10,000 unit STK-MED ONCE .ROUTE; Start 10/03/24 at 12:55; Stop 10/03/24 at 12:55; Status DC Epinephrine HCl 1 mg STK-MED ONCE .ROUTE; Start 10/03/24 at 12:55; Stop 10/03/24 at 12:55; Status DC Sodium Bicarbonate 200 ml @ As Directed STK-MED ONCE .ROUTE; Start 10/03/24 at 12:55; Stop 10/03/24 at 12:55; Status DC Norepinephrine Bitartrate 4 mg STK-MED ONCE IV; Start 10/03/24 at 12:55; Stop 10/03/24 at 12:55; Status DC Fentanyl Citrate 1,000 mcg STK-MED ONCE IJ; Start 10/03/24 at 12:55; Stop 10/03/24 at 12:55; Status DC Propofol 200 mg STK-MED ONCE IV; Start 10/03/24 at 12:55; Stop 10/03/24 at 12:56; Status DC Midazolam HCl 2 mg STK-MED ONCE .ROUTE; Start 10/03/24 at 12:55; Stop 10/03/24 at 12:56; Status DC Rocuronium Olustee 50 mg STK-MED ONCE .ROUTE; Start 10/03/24 at 12:56; Stop 10/03/24 at 12:56; Status DC Etomidate 20 mg STK-MED ONCE .ROUTE; Start 10/03/24 at 12:59; Stop 10/03/24 at 13:00; Status DC Sodium Chloride 1,000 ml @ 10 mls/hr ONCE IV; Start 10/03/24 at 13:00; Stop 10/04/24 at 12:59; Status DC Sodium Chloride 10 ml Q8H PRN IVP; Start 10/03/24 at 13:00; Stop 11/02/24 at 12:59 Morphine Sulfate 0.5 mg Q2H PRN IV Last administered on 10/03/24at 20:56; Start 10/03/24 at 13:00; Stop 10/04/24 at 10:49; Status DC Morphine Sulfate 1 mg Q2H PRN IV; Start 10/03/24 at 13:00; Stop 10/04/24 at 10:49; Status DC Acetaminophen 650 mg Q4H PRN RC; Start 10/03/24 at 13:00; Stop 11/02/24 at 12:59 Ondansetron HCl 4 mg Q6H PRN IV Last administered on 10/04/24at 16:35; Start 10/03/24 at 13:00; Stop 11/02/24 at 12:59 Sodium Chloride 500 ml @ 0 mls/hr AD IV; Start 10/03/24 at 13:00; Stop 11/02/24 at 12:59 Nitroglycerin/ Dextrose 0 ml @ 0 mls/hr AD IV; Start 10/03/24 at 13:00; Stop 10/06/24 at 12:59; Status DC Propofol 100 ml @ 0 mls/hr AD PRN IV; Start 10/03/24 at 13:00; Stop 10/07/24 at 12:59; Status DC Norepinephrine Bitartrate 8 mg/ Dextrose 250 ml @ 0 mls/hr AD PRN IV; Start 10/03/24 at 13:00; Stop 10/03/24 at 13:03; Status DC Epinephrine HCl 10 mg/Sodium Chloride 250 ml @ 0 mls/hr AD PRN IV; Start 10/03/24 at 13:00; Stop 10/03/24 at 13:03; Status DC Aminocaproic Acid 46488 mg/Sodium Chloride 310 ml @ 25 mls/hr AD IV; Start 10/03/24 at 13:00; Stop 10/03/24 at 13:03; Status DC Calcium Gluconate 1 gm/Sodium Chloride 60 ml @ 200 mls/hr AD PRN IV Last administered on 10/05/24at 11:32; Start 10/03/24 at 13:00; Stop 11/02/24 at 12:59 Magnesium Sulfate 50 ml @ 12.5 mls/hr AD PRN IV Last administered on 10/03/24at 17:21; Start 10/03/24 at 13:00; Stop 11/02/24 at 12:59 Potassium Chloride 100 ml @ 100 mls/hr AD PRN IV; Start 10/03/24 at 13:00; Stop 11/02/24 at 12:59 Potassium Phosphate 250 ml @ 42 mls/hr AD PRN IV; Start 10/03/24 at 13:00; Stop 11/02/24 at 12:59 Albumin Human 250 ml @ 0 mls/hr AD PRN IV Last administered on 10/03/24at 17:23; Start 10/03/24 at 13:00; Stop 10/03/24 at 17:24; Status DC Acetaminophen 650 mg Q4H PRN PO; Start 10/03/24 at 13:00; Stop 11/02/24 at 12:59 Insulin Human Regular 100 unit/ Sodium Chloride 100 ml @ 0 mls/hr AD IV Last administered on 10/03/24at 17:38; Start 10/03/24 at 13:00; Stop 10/05/24 at 12:59; Status DC Cefazolin Sodium 2 gm Q8H IVPB Last administered on 10/04/24at 09:46; Start 10/03/24 at 18:00; Stop 10/04/24 at 10:01; Status DC Tramadol HCl 25 mg Q6H PRN PO; Start 10/03/24 at 13:00; Stop 10/08/24 at 12:59; Status DC Tramadol HCl 50 mg Q6H PRN PO Last administered on 10/08/24at 08:01; Start 10/03/24 at 13:00; Stop 10/08/24 at 12:59; Status DC Famotidine 20 mg Q48H IV Last administered on 10/07/24at 20:54; Start 10/03/24 at 21:00; Stop 11/02/24 at 20:59 Sodium Bicarbonate 50 meq AD PRN IV Last administered on 10/03/24at 20:57; Start 10/03/24 at 13:00; Stop 10/06/24 at 12:59; Status DC Dextrose 50 ml AD PRN IV; Start 10/03/24 at 13:00; Stop 10/03/24 at 13:04; Status DC Glucagon 1 mg AD PRN IM; Start 10/03/24 at 13:00; Stop 10/03/24 at 13:04; Status DC Amiodarone HCl 150 mg STK-MED ONCE .ROUTE; Start 10/03/24 at 13:45; Stop 10/03/24 at 13:46; Status DC Potassium Chloride 300 ml @ As Directed STK-MED ONCE IV; Start 10/03/24 at 14:24; Stop 10/03/24 at 14:25; Status DC Heparin Sodium (Porcine) 10,000 unit STK-MED ONCE .ROUTE; Start 10/03/24 at 14:28; Stop 10/03/24 at 14:29; Status DC Lidocaine HCl 100 mg STK-MED ONCE .ROUTE; Start 10/03/24 at 14:30; Stop 10/03/24 at 14:30; Status DC Vasopressin 20 units STK-MED ONCE .ROUTE; Start 10/03/24 at 14:39; Stop 10/03/24 at 14:39; Status DC Albumin Human 500 ml @ As Directed STK-MED ONCE IV; Start 10/03/24 at 15:20; Stop 10/03/24 at 15:20; Status DC Albumin Human 250 ml @ As Directed STK-MED ONCE IV; Start 10/03/24 at 15:58; Stop 10/03/24 at 15:58; Status DC Cefazolin Sodium 3 gm STK-MED ONCE IVPB Last administered on 10/03/24at 13:15; Start 10/03/24 at 13:15; Stop 10/03/24 at 17:02; Status DC Papaverine HCl 60 mg STK-MED ONCE IRRIG Last administered on 10/03/24at 13:45; Start 10/03/24 at 13:45; Stop 10/03/24 at 17:02; Status DC Cefazolin Sodium 1 gm STK-MED ONCE IRRIG Last administered on 10/03/24at 13:45; Start 10/03/24 at 13:45; Stop 10/03/24 at 17:02; Status DC Vasopressin 20 units/Sodium Chloride 100 ml @ 0 mls/hr PROTOCOL IV Last administered on 10/04/24at 06:34; Start 10/03/24 at 19:30; Stop 11/02/24 at 19:29 Albumin Human 100 ml ONCE ONCE IV Last administered on 10/04/24at 07:24; Start 10/04/24 at 06:30; Stop 10/04/24 at 06:31; Status DC Epoetin Moses-epbx 10,000 unit ONCE ONCE SQ Last administered on 10/04/24at 13:14; Start 10/04/24 at 13:00; Stop 10/04/24 at 13:05; Status DC Albumin Human 100 ml @ As Directed STK-MED ONCE IV Last administered on 10/05/24at 16:18; Start 10/05/24 at 15:46; Stop 10/05/24 at 15:46; Status DC Albumin Human 100 ml ONCE IV Last administered on 10/05/24at 16:18; Start 10/05/24 at 16:00; Stop 10/06/24 at 15:59; Status DC Insulin Human Regular INSULIN SLIDING SCAL... ACHS SQ; Start 10/05/24 at 16:30; Stop 10/06/24 at 06:12; Status DC Guaifenesin/ Dextromethorphan 15 ml Q4H PRN PO Last administered on 10/06/24at 01:35; Start 10/06/24 at 01:30; Stop 11/05/24 at 01:29 Insulin Glargine 20 units DAILY SQ Last administered on 10/06/24at 09:16; Start 10/06/24 at 09:00; Stop 10/07/24 at 12:41; Status DC Insulin Human Regular INSULIN SLIDING SCAL... ACHS SQ Last administered on 10/08/24at 18:04; Start 10/06/24 at 07:30; Stop 11/05/24 at 07:29 Insulin Human Regular 5 unit TIDAC SQ Last administered on 10/06/24at 17:10; Start 10/06/24 at 07:30; Stop 10/06/24 at 19:15; Status DC Metoprolol Tartrate 12.5 mg BID PO Last administered on 10/08/24at 08:00; Start 10/06/24 at 09:00; Stop 10/08/24 at 08:34; Status DC Epoetin Moses-epbx 10,000 unit QTUTHSA SQ; Start 10/07/24 at 09:00; Stop 10/07/24 at 13:20; Status DC Insulin Human Regular 10 unit TIDAC SQ; Start 10/07/24 at 07:30; Stop 10/07/24 at 12:41; Status DC Calcium Carbonate 1,000 mg TIDMEALS PO Last administered on 10/08/24at 17:53; Start 10/07/24 at 08:00; Stop 10/30/24 at 13:59 Insulin Glargine 15 units DAILY SQ Last administered on 10/08/24at 08:11; Start 10/08/24 at 09:00; Stop 11/07/24 at 08:59 Insulin Human Regular 5 unit TIDAC SQ Last administered on 10/07/24at 18:24; Start 10/07/24 at 17:00; Stop 10/08/24 at 05:46; Status DC Epoetin Moses-epbx 10,000 unit QTUTHSA SQ Last administered on 10/07/24at 18:21; Start 10/07/24 at 16:00; Stop 11/06/24 at 15:59 Vitamin B Complex 1,000 mcg DAILY PO Last administered on 10/08/24at 08:02; Start 10/08/24 at 09:00; Stop 11/07/24 at 08:59 Folic Acid 1 mg DAILY PO Last administered on 10/08/24at 08:00; Start 10/08/24 at 09:00; Stop 11/07/24 at 08:59 Insulin Human Regular 8 unit TIDAC SQ Last administered on 10/08/24at 06:47; Start 10/08/24 at 07:30; Stop 10/08/24 at 12:41; Status DC Metoprolol Tartrate 25 mg BID PO; Start 10/08/24 at 09:00; Stop 11/07/24 at 08:59 Ipratropium [place] 0.5 MG Q6H PRN IH; Start 10/08/24 at 09:00; Stop 11/07/24 at 08:59 Insulin Human Regular 12 unit TIDAC SQ Last administered on 10/08/24at 18:03; Start 10/08/24 at 17:00; Stop 11/07/24 at 16:59 HENNA PATEL MD Oct 08, 2024 20:16
--- NOTE | 2024-10-08 20:25 | PN ---
SUBJECTIVE: A 49-year-old gentleman, status post CABG, coursing postoperative day #5. OBJECTIVE: GENERAL: Awake, alert, afebrile, neurologically intact. VITAL SIGNS: Stable as recorded in medical record. CHEST: Sternum stable. Incision sealed. LUNGS: Clear. EXTREMITIES: Warm, well perfused. No evidence of DVT, hematoma or infection. ASSESSMENT AND PLAN: Status post coronary artery bypass graft. PROBLEMS: * Coronary artery disease, aspirin and beta blockers. * Dyslipidemia. Lipitor 40 mg once a day. * Fluid overload. Lasix 20 mg twice a day. * Heparin-induced thrombocytopenia and thrombosis. The platelet count rebounded and there was no evidence of DELFINO anemia. Continue to monitor vitamins and iron. PLAN: OT, PT, cardiac rehab. Discharge planning for tomorrow. TID: [id number] RECEIPT: [id number]
--- NOTE | 2024-10-08 22:59 | PN ---
[facility] PROGRESS NOTE Date Patient Seen: Oct 08, 2024 Time of Visit: 13:54 Supervising Physician: DR. ANNA BRADY Primary Care Physician: Gama Acosta Outpatient Specialists: [ ] Inpatient Consults: Cardiology, nephrology and critical care team PROBLEM LIST: Septic shock, not POA, resolved off pressor Acute Hypoxemic Respiratory Failure, POA, on 2LNC Nstemi, POA, s/p CABG 10/03/[address] Page Acute on chronic CHF with reduced EF of 35 40% Acute thrombocytopenia, not POA, r/o HIT pending oncology eval Community acquired influenza A viral pneumoniae w/ superimposed Bilateral bacterial Pneumonia, POA, treated Sepsis Due To Bilateral Pneumonia And Influenza A Infection, POA, improved Severe transaminitis 2/2 shocked liver not POA ESRD with new onset hemodialysis this admission s/p Rt permacath Recurrent Dka w/ reopening of AGAP and ketones, resolved Acute Metabolic Acidosis 2/2 DkA and SAURABH , POA, improved Hyperkalemia In The Context Of Chronic Kidney Injury, Poa Morbid Obesity BMI 40.5 Plan Summary: Supplemental oxygen as needed Wean off as tolerates Continue HD as per Nephrology Follow [facility] recommendation Dispo: As per attending INTERVAL HISTORY: 09/22/2024: At the time my evaluation, the patient was in the emergency department awaiting bed assignment. The staff nurse reports no acute events overnight. The patient was on a Oxymizer with optimal SpO2. He was normotensive without the need for pressor therapy. There was no complaint of chest pain. There was no abdominal pain, nausea vomiting or diarrhea. The patient continued on a insulin drip per the DKA protocol. He was started on antibiotic and antiviral therapy for management of his condition. Review of labs today showed no major concern on CBC. Chemistry panel did show a sodium of 135, chloride of 100 and a CO2 of 20 with a anion gap of 15. Blood glucose remains elevated in the 300s. No new complaint. 09/23- saw patient and ED 13 awake alert and oriented x3. 2D echo at bedside being performed. Patient has been afebrile heart rate of 110, blood pressure 116/63 with respiratory rate of 20 saturating 97% with 7 L via nasal cannula oximizer. Urine output 1.4 L in the last 24 hours. On laboratory WBCs are 11.4 H&H trending down 7.6/23.1 with a platelet count that is 178 K. on chemistry s odium 136 potassium of 3.7 chloride 100 carbon dioxide of 19 BUN 106. Creatinine of 8.6 and GFR of 7. Per Dr Armenta pt scheduled for a Mitesh hemodialysis catheter per IR today. Pt continues with Tamiflu, Doxy, Cefepime and MRSA coverage will be added w/ vanco due to suspected MRSA superimposed pneumonia on Influenza pneumonia. On CT chest, abdomen and pelvis shows Acute appearing infiltrates in both lung bases consistent with pneumoniae. No acute finding in the abdomen or pelvis. Del Cid catheter in good position in the urinary bladder. We will continue to follow Neprhology recommendations. 09/24 patient was seen and examined at bedside with primary nurse present. Patient to receive1 unit PRBCs hemoglobin this a.m. 6.8. Continue to monitor closely. Patient to continue on IV antibiotics. Patient's troponin levels trending down. We will continue to follow recommendations of Cardiology. Patient remains hypoxic requiring supplemental oxygen via nasal cannula at L. Patient states does not use home oxygen. Patient is to continue on heparin drip. Patient to continue on IV steroids. Patient's echocardiogram revealed EF of 35-40%. Patient's blood cultures have been negative x2 days. Patient remains high risk for decompensation. 09/25 patient was seen and examined at bedside with mother present. At time of visit patient is currently on room air has been weaned off oxygen. Yesterday patient was on 5 L. As per patient is tolerating room air well. Patient denies any chest pain or shortness of breadth, however does report shortness of breath upon minimal exertion. Patient remains on heparin drip. Patient is still currently pending coronary CT to be completed, further recommendations by Cardiology to follow once examined has been completed. Patient to continue on hemodialysis per Nephrology's recommendations. 09/26/24-patient is awake alert and oriented x3. He requires Levophed at 0 point 4 micrograms/kilogram per minute for blood pressure support. He was brought into the ICU overnight due to hypotension and elevated liver enzymes. Current blood pressure of 129/74 heart rate in the 80s respiratory rate of 19 saturating 100% with 7 L via Oxymizer and afebrile. As per RN she is weaning Levophed. Urine output was 100 mL in the last 24 hours he received hemodialysis today with 3.6 L out and had one bowel movement. WBCs spiked up this morning from 17.6224.2 H&H 8.6/25.4 and platelet count is normal 291 K. neutrophils 79.5. Suspect patient aspirated in the episode of hypotension due to increased pulm onary infiltrates to right side and spike in white count and temperature. Patient was panculture and cefepime changed to Zosyn to cover for aspiration pneumonia. On chest x-ray patient with a extensive bilateral infiltrates unchanged. No pneumothorax. Chemistries sodium of 130 potassium is 6.2 chloride of 90 carbon dioxide of 17 with a BUN of 119 and creatinine 9.6 and GFR of six liver enzymes raised AST of 6752 ALT of 4302, alkaline phosphatase of 233 likely from shock liver procalcitonin elevated at 24.31 decreased from admission wishes 70. On repeat BNP patient has a sodium of 134 potassium of 3.5 chloride of 91 carbon dioxide 26 with a anion gap of 17 and ketones of 1.4 we will need to restart insulin drip per DKA protocol. 09/27/24-pt is awake alert and oriented x 3. He is hemodynamically stable and off pressors. He denies any chill, chest pain or increased sob at rest. He does report sob on exertion and reports poor appetite. He is due for HD treatment today. Per RN no major overnight events and he has been afebrile. WBC's are trending down now 20.4, H&H is 8.9/26.3 and platelet count is 220 K. chemistry patient had a sodium of 134 potassium is normal 4.6 chloride of 92 carbon dioxide 24, AGAP has closed, liver enzymes severely elevated consistent with shocked lover but we will order us of abdomen to assess Liver and Gallbladder. Ketones of 0.2. We have discontinued DKA protocol and pt ,may be downgraded from ICU today. 2/ patient was seen and examined at bedside with family present. Patient is awake alert able to answer simple questions appropriately. Patient is on room air appears to be tolerating well. Patient has remained hemodynamically stable. Patient denies any chest pain or shortness of breadth. Denies any nausea vomiting or abdominal pain. Most per primary nurse no acute events to be reported. We will continue to follow recommendations from Nephrology and Cardiology appreciate assistance. We will continue to monitor patient closely 2/3 patient was seen and examined at bedside with family present. Patient remains on room air tolerating well. Patient is scheduled for coronary CT today we will follow recommendations from Cardiology. Patient to continue on hemodialysis per Nephrology's recommendations. Patient's WBCs trending down today 18.6 yesterday 22.0. Patient to continue on IV antibiotics. We will continue to monitor patient closely. 09/[address] coronary angiogram which revealed 90% stenosis of the LAD as well as 90% stenosis of the left circumflex. Per bedside nurse, patient was offered stent placement, however refused and is wanting to pursue this as an outpatient. Patient's blood sugar remains elevated in for 0s, we will adjust insulin as indicated. Pro mallory significantly decreased from 70 down to 6. Blood and urine cultures remain negative, sputum cultures growing Dunia. His liver enzymes remain elevated but significantly downtrended. Patient is pending AV fistula for hemodialysis, however [facility]TS is deferring this as an outpatient in order to prioritize his CAD management. 10/01 Patient had abnormal LHC and is referred for CABG. His abdominal U/S was negative for gallstones or ductal dilation. Carotid doppler WNL. CXR consistent with pulmonary venous congestion. Continues on dialysis with temp cath per nephrology, pending AV graft by CTS. Blood sugar is persistently elevated, insulin adjusted per primary. 10/02 Patient is evaluated at bedside. Continues with dialysis as scheduled. Patient had endocrinology consult with the adjustment in his insulin regimen. Patient is pending CABG in a.m. He denies any chest pain. 10/03 Patient is evaluated at bedside. Insulin dosing adjusted per endocrinology with improvement in glucose readings. Continues with dialysis as scheduled. Pending CABG today, no current complaints. 10/04 patient was admitted at bedside. He was status post CABG yesterday by Dr. Page. He was brought in the ICU postop for medical management. At the time of my visit. Patient had been extubated and saturating well on aerosol mask at 40% FiO2. He is awake, alert, following commands. Continues on vasopressin and epinephrine. Patient also undergoing an extra dialysis session today which just over 1.2L removed. Per bedside nurse had to initiate levophed temporarily d/t low blood pressure. Chest tube in place with 1260ml of output per chart. His hemoglobin dropped to 5.5 overnight, did receive blood products with improvement to 9.0. 2/9 Patient is evaluated at bedside. Blood pressures are maintained with maps above 70. He continues on low-dose epi drip per CTS request. Chest tube with the about 800 cc of drainage overnight per nursing staff. Hemoglobin has dropped to 6.6, currently receiving one PRBC. He had a dialysis session yesterday, labs showed mild hyperkalemia. We will continue dialysis per Nephrology's recommendation. White blood count is within normal limits at nine, cultures remained negative. 10/06 patient is evaluated at bedside. Has been weaned off pressors. Blood pressures are holding up with maps above 70. CXR reveals atelectasis in pulmonary congestion. Patient did have hemodialysis session yesterday with 2.4 L of fluid removed. His femoral a line has been removed and patient is up out of bed to chair. He is slightly edematous to upper and lower extremities. Encouraged use of incentive spirometer. Continues on 2 L NC. He is comfortable without pain. Patient's hemoglobin continues to fluctuate. Did receive 1 unit PRBC yesterday with improvement in hemoglobin to 8.1 now decreasing to 7.3. WBCs have remained within normal limits, patient without signs or symptoms of infection. His platelets have decreased to 38 today, patient is not on any antiplatelets or anticoagulants but does have heparin flush with dialysis. He c ontinues with chest tube with about 1800 mL of total output about 600 mL overnight. Ok to downgrade patient. 10/07 - patient is seen and evaluated at the bedside. Patient is sitting up in bed currently receiving hemodialysis. Patient does not appear to be in any acute distress at this time. Patient does appear to be weak and hypoxemic requiring2 L via nasal cannula. Patient is reported respiratory status continues to improve daily. Instructed nursing to wean off O2 as tolerated. Patient's chest tubes have been discontinued. Vital Signs are stable. Labs are within normal limits. Recommend to continue IS while awake and wean off O2 as tolerated. Patient has been advised to get a bed and ambulate with therapy at least twice a day. 10/08 Patient is a 49 year old gentleman , awake, alert, well oriented with temporary HD catheter he is status post CABG, doing good, no chest pain, doing IS exercises, no SOB, with adequate pain control Hb is 7.2 . We will continue monitoring closely. REVIEW OF SYSTEMS: 12 point ROS reviewed with patient. Pertinent positives mentioned above. Otherwise negative. PHYSICAL EXAM: GENERAL: alert, weak, awake oriented x 3, weak, deconditioned HEENT: EOMI, Sclera non icteric, moist mucosa NECK: Supple, no JVD, trachea midline LUNGS: coarse rhonchi breath sounds decreased bilaterally. No wheezes HEART: Regular rate and rhythm. Normal S1 and S2, without murmurs ABD: Abdomen soft, nontender. Bowel sounds present EXT: No clubbing cyanosis, positve 2+ edema to upper and lower extremities NEURO: Alert and oriented to person, follows commands Vital Signs (last 8hr) Date Time Temp Pulse Resp B/P (MAP) Pulse Ox O2 Delivery O2 Flow Rate FiO2 10/08/24 19:19 98.1 87 16 137/82 98 Nasal Cannula 2.0 10/08/24 19:00 96 19 N/Cannula Low lpm 2.0 28 10/08/24 16:00 97.9 86 22 158/83 95 Nasal Cannula 2.0 LABS: Hematology Labs: Test 10/08/24 03:17 Range/Units White Blood Count 6.9 4.8-10.8 K/uL Red Blood Count 2.60 L 4.50-6.20 MIL/uL Hemoglobin 7.2 L 14.0-18.0 g/dL Hematocrit 22.1 L 42-54 % Mean Corpuscular Volume 85.0 79-99 fL Mean Corpuscular Hemoglobin 27.7 27.0-33.0 pg Mean Corpuscular Hemoglobin Concent 32.6 32.0-36.0 g/dL Red Cell Distribution Width 15.7 H 11.0-15.5 % Platelet Count 61 #L 130-400 K/uL Mean Platelet Volume 11.6 H 7.5-10.5 fL Nucleated Red Blood Cells 0.3 H 0.0-0.19 % Chemistry Labs: Test 10/08/24 15:51 10/08/24 03:17 10/07/24 05:02 10/07/24 03:45 Range/Units Whole Blood Glucose 374 #H 70-110 MG/DL Sodium Level 134 L 136-145 mmol/L Potassium Level 4.5 3.5-5.1 mmol/L Chloride Level 95 L 101-111 mmol/L Carbon Dioxide Level 29 21-32 mmol/L Blood Urea Nitrogen 57 H 7-18 mg/dL Creatinine 7.9 H 0.5-1.3 mg/dL Glomerular Filtration Rate Calc 8 >90 mL/min Random Glucose 199 #H 70-105 mg/dL Total Calcium 7.8 L 8.5-10.1 mg/dL Bedside Glucose Comment Notified Nurse Phosphorus Level 7.4 H 2.5-4.9 mg/dL DIAGNOSTICS / RADIOLOGY RESULTS: [ ] PLAN HD as scheduled wound care statin ASA Adequate pain control adequate BP control NEURO: Minimize central acting medications as possible. Maintain fall precautions, adequate lighting during the day PULMONARY: Supplemental 02 as needed. Maintain aspiration precautions at all times IS while awake CARDIOVASCULAR: Follow hemodynamics. Vital signs per facility protocol GI & NUTRITION: Continue with nutritional support. Continue stool softeners and laxatives as needed. KIDNEYS & ELECTROLYTES: Strict monitoring of intake, output and overall fluid balance. Avoid nephrotoxic medications to the extent possible. Medications to be dosed according to renal function. Monitor electrolytes and replace as needed ENDOCRINE: Maintain blood glucose between 100-180 at all times. Hypoglycemia protocol in place INFECTIOUS DISEASE: Trend temperature, WBC and procalcitonin level Follow cultures, deescalate antibiotics as soon as possible. Panculture if new onset fever ONCOLOGY/HEMATOLOGY/COAGULATION: Monitor for s/s of bleeding Monitor hemoglobin, coagulation studies as needed SKIN: Pressure ulcer prevention per facility protocol Specialty mattress ORTHO/REHAB: Continue PT/OT Prophylaxis: Continue GI and DVT prophylaxis Code Status: Full Resuscitation Disposition: As per attending ATTESTATION BY PHYSICIAN Documentation assistance provided by a scribe, information recorded by the scribe was done at my direction and has been reviewed and validated by me." ANNA US MD I personally scribed for ANNA US MD ([email or web address]) on 10/08/24 at 22:59. Electronically submitted by Maisha Huerta ([id number]). ANNA US MD Oct 08, 2024 22:59
--- NOTE | 2024-10-08 23:27 | PN ---
patient is evaluated at bedside. Has been weaned off pressors. Blood pressures are holding up with maps above 70. CXR reveals atelectasis in pulmonary congestion. Patient did have hemodialysis session yesterday with 2.4 L of fluid removed. His femoral a line has been removed and patient is up out of bed to chair. He is slightly edematous to upper and lower extremities. Encouraged use of incentive spirometer. Continues on 2 L NC. He is comfortable without pain. Patient's hemoglobin continues to fluctuate. Did receive 1 unit PRBC yesterday with improvement in hemoglobin to 8.1 now decreasing to 7.3. WBCs have remained within normal limits, patient without signs or symptoms of infection. His platelets have decreased to 38 today, patient is not on any antiplatelets or anticoagulants. He continues with chest tube with about 1800 mL of total output about 600 mL overnight. Alexander was done which was negative. Patient with iron deficiency anemia with the patient should be on IV iron. Patient will also with the chronic renal insufficiency on home dialysis with the patient should be on Procrit. Platelet count continued to be 61. Chest tube was removed. There is no obvious bleeding. There is plan for permacath insertion to be done tomorrow. PHYSICAL EXAM: GENERAL: alert, weak, awake oriented x 3, weak, deconditioned HEENT: EOMI, Sclera non icteric, moist mucosa NECK: Supple, no JVD, trachea midline LUNGS: coarse rhonchi breath sounds decreased bilaterally. No wheezes HEART: Regular rate and rhythm. Normal S1 and S2, without murmurs ABD: Abdomen soft, nontender. Bowel sounds present EXT: No clubbing cyanosis, positve 2+ edema to upper and lower extremities NEURO: Alert and oriented to person, follows commands Assessment 1. Coronary artery disease status post bypass procedure 2. Anemia 3. Thrombocytopenia 4. End-stage renal disease on hemodialysis 5. Ischemic cardiomyopathy 6. Diabetes mellitus 7. Hyperlipidemia 8. Hypertension Plan 1. Peripheral blood smear showed red blood cells to be normocytic normochromic. There was no fragment cell or schistocyte. There is no teardrop cell. There is no rouleaux phenomena. There is no pelger-Huet cell. White blood cell with no blasts. there is decreased number of the platelet. There is no clumping of the platelet. Platelet actually is normal size consistent with bone marrow suppression. There was no schistocytes or fragment cell. 2. There was hypersegmented neutrophils. This patient to Continue on folic acid 1 mg p.o. daily and vitamin B12 1000 mcg p.o. daily. 3. Patient is planned to have permacath to be done tomorrow. If the permacath less than 100 patient to receive 1 unit of single donor platelet to be done tomorrow. Premedication with dexamethasone 10 mg and Benadryl 25 mg If platelet count more than 100 K. There is no need for platelet transfusion 4. No need for blood product transfusion. 5. CBC in in a.m. Vitals/Labs Vital Signs Date Time Temp Pulse Resp B/P (MAP) Pulse Ox O2 Delivery O2 Flow Rate FiO2 10/08/24 19:19 98.1 87 16 137/82 98 Nasal Cannula 2.0 10/08/24 19:00 28 Laboratory Tests 10/08/24 03:17 Medications Current Medications Ceftriaxone Sodium 1 gm ONCE ONCE IVPB; Start 09/21/24 at 18:00; Stop 09/21/24 at 18:13; Status DC Azithromycin 250 ml @ 250 mls/hr Q24H IVPB; Start 09/21/24 at 18:00; Stop 09/21/24 at 18:14; Status DC Promethazine HCl/ Codeine 10 ml ONCE ONCE PO; Start 09/21/24 at 18:00; Stop 09/21/24 at 18:01; Status DC Piperacillin Sod/ Tazobactam Sod 3.375 gm ONCE ONCE IVPB Last administered on 09/21/24at 18:35; Start 09/21/24 at 18:30; Stop 09/21/24 at 18:31; Status DC Insulin Human Regular 10 unit ONCE ONCE IV Last administered on 09/21/24at 18:36; Start 09/21/24 at 18:30; Stop 09/21/24 at 18:31; Status DC Metoprolol Tartrate 5 mg ONCE ONCE IV Last administered on 09/21/24at 18:32; Start 09/21/24 at 18:30; Stop 09/21/24 at 18:31; Status DC Heparin Sodium (Porcine) *calculation based on ACTUAL B... AD PRN IV; Start 09/21/24 at 19:30; Stop 09/26/24 at 07:14; Status DC Heparin Sodium/ Dextrose 250 ml @ 0 mls/hr Q6H IV Last administered on 09/25/24at 04:13; Start 09/21/24 at 19:30; Stop 09/26/24 at 18:36; Status DC Sodium Chloride 1,000 ml @ 0 mls/hr ONCE ONCE IV Last administered on 09/21/24at 18:37; Start 09/21/24 at 18:30; Stop 09/21/24 at 18:31; Status DC Ondansetron HCl 4 mg STK-MED ONCE .ROUTE Last administered on 09/21/24at 18:31; Start 09/21/24 at 18:29; Stop 09/21/24 at 18:29; Status DC Oseltamivir Phosphate 75 mg ONCE ONCE PO Last administered on 09/21/24at 18:45; Start 09/21/24 at 19:00; Stop 09/21/24 at 19:01; Status DC Acetaminophen 650 mg Q6H PRN PO; Start 09/21/24 at 19:30; Stop 10/03/24 at 12:53; Status DC Acetaminophen 650 mg Q4H PRN PO Last administered on 09/30/24at 01:32; Start 09/21/24 at 19:30; Stop 10/03/24 at 12:53; Status DC Guaifenesin/ Dextromethorphan 10 ml Q4H PRN PO Last administered on 09/23/24at 22:06; Start 09/21/24 at 19:30; Stop 10/03/24 at 12:53; Status DC Albuterol 1 udvial [id number] IH Last administered on 09/25/24at 06:43; Start 09/21/24 at 22:00; Stop 09/25/24 at 09:59; Status DC Famotidine 10 mg Q48H PO; Start 09/21/24 at 19:30; Stop 09/21/24 at 20:00; Status DC Nitroglycerin 0.5 inch Q8H TD Last administered on 09/25/24at 12:44; Start 09/21/24 at 19:30; Stop 09/27/24 at 10:34; Status DC Piperacillin Sod/ Tazobactam Sod 50 ml @ 12.5 mls/hr Q12H IV Last administered on 09/22/24at 20:43; Start 09/21/24 at 21:00; Stop 09/23/24 at 08:06; Status DC Sodium Chloride 1,000 ml @ 100 mls/hr Q10H IV Last administered on 09/23/24at 12:53; Start 09/21/24 at 19:30; Stop 09/27/24 at 10:34; Status DC Oseltamivir Phosphate 75 mg DAILY PO Last administered on 09/23/24at 08:38; Start 09/22/24 at 09:00; Stop 09/23/24 at 13:29; Status DC Doxycycline Hyclate 100 mg BID PO Last administered on 09/30/24at 20:53; Start 09/21/24 at 21:00; Stop 09/30/24 at 23:59; Status DC Aspirin 81 mg DAILY PO Last administered on 10/08/24at 07:59; Start 09/22/24 at 09:00; Stop 10/22/24 at 08:59 Insulin Human Regular 100 unit/ Sodium Chloride 101 ml @ 0 mls/hr PROTOCOL IV Last administered on 09/21/24at 21:01; Start 09/21/24 at 20:00; Stop 09/23/24 at 21:20; Status DC Famotidine 10 mg DAILY IV Last administered on 09/27/24at 09:09; Start 09/22/24 at 09:00; Stop 09/27/24 at 10:35; Status DC Alprazolam 0.5 mg ONCE ONCE PO Last administered on 09/21/24at 21:44; Start 09/21/24 at 22:00; Stop 09/21/24 at 22:01; Status DC Magnesium Sulfate 50 ml @ 0 mls/hr PROTOCOL PRN IV Last administered on 09/21/24at 23:52; Start 09/22/24 at 00:00; Stop 09/22/24 at 00:04; Status DC Magnesium Sulfate 50 ml @ As Directed STK-MED ONCE IV; Start 09/21/24 at 23:49; Stop 09/21/24 at 23:49; Status DC Sodium Chloride 1,000 ml @ 200 mls/hr PROTOCOL IV; Start 09/22/24 at 00:00; Stop 09/23/24 at 21:23; Status DC Potassium Chloride/Dextrose/ Sod Cl 1,000 ml @ 0 mls/hr AD IV; Start 09/22/24 at 00:00; Stop 09/23/24 at 21:23; Status DC Potassium Chloride 20 meq/ Sodium Chloride 1,010 ml @ 0 mls/hr PROTOCOL IV; Start 09/22/24 at 00:00; Stop 09/23/24 at 21:23; Status DC Magnesium Sulfate 50 ml @ 0 mls/hr PROTOCOL IV; Start 09/22/24 at 00:00; Stop 09/23/24 at 21:23; Status DC Insulin Human Regular 100 unit/ Sodium Chloride 101 ml @ 0 mls/hr PROTOCOL IV; Start 09/22/24 at 00:00; Stop 09/22/24 at 00:03; Status DC Mannitol 49 gm AD IV; Start 09/22/24 at 00:00; Stop 09/22/24 at 00:28; Status DC Dextrose/Sodium Chloride 1,000 ml @ 0 mls/hr AD IV Last administered on 09/22/24at 09:49; Start 09/22/24 at 00:00; Stop 09/23/24 at 21:23; Status DC Methylprednisolone Sodium Succinate 125 mg ONCE ONCE IVP Last administered on 09/22/24at 01:35; Start 09/22/24 at 00:30; Stop 09/22/24 at 00:31; Status DC Methylprednisolone Sodium Succinate 40 mg BID IVP Last administered on 09/26/24at 20:37; Start 09/22/24 at 09:00; Stop 09/27/24 at 10:35; Status DC Mannitol 245 ml @ 0 mls/hr AD IV; Start 09/22/24 at 00:30; Stop 09/22/24 at 20:17; Status DC Atorvastatin Calcium 40 mg HS PO; Start 09/22/24 at 21:00; Stop 09/22/24 at 20:17; Status DC Mannitol 500 ml @ 0 mls/hr AD IV; Start 09/22/24 at 00:30; Stop 09/22/24 at 14:33; Status DC Sodium Chloride 4 ml STK-MED ONCE IH; Start 09/22/24 at 05:59; Stop 09/22/24 at 06:00; Status DC Vitamin B Complex/ Vit C/Folic Acid 1 cap DAILY PO Last administered on 10/08/24at 08:00; Start 09/23/24 at 09:00; Stop 10/23/24 at 08:59 Furosemide 80 mg Q12H IV Last administered on 09/26/24at 13:20; Start 09/22/24 at 21:00; Stop 09/26/24 at 15:22; Status DC Nifedipine 60 mg DAILY PO Last administered on 09/25/24at 08:37; Start 09/23/24 at 09:00; Stop 09/28/24 at 12:01; Status DC Ferrous Sulfate 325 mg DAILY PO Last administered on 10/08/24at 08:00; Start 09/23/24 at 09:00; Stop 10/23/24 at 08:59 Miscellaneous Medication 1 tab DAILY PO; Start 09/23/24 at 09:00; Stop 09/22/24 at 15:56; Status DC Chlordiazepoxide HCl 25 mg Q2H PRN PO Last administered on 09/28/24at 23:59; Start 09/22/24 at 20:30; Stop 09/29/24 at 20:29; Status DC Chlordiazepoxide HCl 50 mg Q1H PRN PO; Start 09/22/24 at 20:30; Stop 09/29/24 at 20:29; Status DC Thiamine HCl 100 mg/Folic Acid 1 mg/Multivitamins/ Minerals 10 ml/ Sodium Chloride 1,011.2 ml @ 100 mls/ hr Q24H IV Last administered on 09/22/24at 20:43; Start 09/22/24 at 20:30; Stop 09/25/24 at 06:37; Status DC Multivitamins Therapeutic 1 tab DAILY PO Last administered on 10/08/24at 08:00; Start 09/23/24 at 09:00; Stop 10/23/24 at 08:59 Pharmacy Profile Note 1 each PROTOCOL PRN MISC; Start 09/22/24 at 20:30; Stop 09/29/24 at 20:29; Status DC Fish Oil 2,000 mg BID PO Last administered on 10/02/24at 20:38; Start 09/22/24 at 21:00; Stop 10/03/24 at 12:53; Status DC Metoprolol Tartrate 12.5 mg BID PO Last administered on 09/24/24at 12:07; Start 09/22/24 at 21:00; Stop 09/24/24 at 16:38; Status DC Insulin Glargine 10 units BID@0730,2100 SQ Last administered on 09/25/24at 20:44; Start 09/22/24 at 21:00; Stop 09/26/24 at 11:15; Status DC Vancomycin HCl 1,000 mg DAILY08 IV; Start 09/23/24 at 08:00; Stop 09/22/24 at 20:26; Status DC Vancomycin HCl 250 ml @ 125 mls/hr Q72H IV Last administered on 09/22/24at 20:48; Start 09/22/24 at 20:30; Stop 09/23/24 at 08:04; Status DC Atorvastatin Calcium 40 mg STK-MED ONCE .ROUTE; Start 09/22/24 at 20:41; Stop 09/22/24 at 20:41; Status DC Sodium Bicarbonate 100 meq ONCE ONCE IV Last administered on 09/23/24at 08:40; Start 09/23/24 at 08:00; Stop 09/23/24 at 08:08; Status DC Cefepime HCl 1 gm Q24H IVPB Last administered on 09/25/24at 08:36; Start 09/23/24 at 08:30; Stop 09/26/24 at 11:14; Status DC Pharmacy Profile Note 1 each ONCE MISC; Start 09/23/24 at 13:00; Stop 09/23/24 at 13:25; Status DC Oseltamivir Phosphate 75 mg QTUTHSA[DIALYSIS] PO; Start 09/23/24 at 16:00; Stop 09/23/24 at 17:04; Status DC Oseltamivir Phosphate 75 mg QTUTHSA[DIALYSIS] PO Last administered on 09/25/24at 16:09; Start 09/23/24 at 22:00; Stop 09/26/24 at 16:32; Status DC Atorvastatin Calcium 20 mg HS PO Last administered on 09/26/24at 20:36; Start 09/23/24 at 21:00; Stop 09/27/24 at 10:38; Status DC Clopidogrel Bisulfate 300 mg ONCE ONCE PO Last administered on 09/23/24at 19:04; Start 09/23/24 at 17:30; Stop 09/23/24 at 17:31; Status DC Clopidogrel Bisulfate 75 mg DAILY PO Last administered on 09/25/24at 08:38; Start 09/24/24 at 09:00; Stop 09/26/24 at 07:14; Status DC Lidocaine HCl 20 ml STK-MED ONCE .ROUTE; Start 09/23/24 at 17:17; Stop 09/23/24 at 17:17; Status DC Heparin Sodium/ Sodium Chloride 500 ml @ As Directed STK-MED ONCE IV; Start 09/23/24 at 17:17; Stop 09/23/24 at 17:18; Status DC Heparin Sodium (Porcine) 1,000 unit STK-MED ONCE .ROUTE; Start 09/23/24 at 17:24; Stop 09/23/24 at 17:24; Status DC Albumin Human 100 ml ONCE ONCE IV Last administered on 09/23/24at 19:53; Start 09/23/24 at 19:30; Stop 09/23/24 at 19:31; Status DC Sodium Chloride 1,000 ml @ 0 mls/hr ONCE IV Last administered on 09/26/24at 12:15; Start 09/23/24 at 19:30; Stop 09/27/24 at 13:51; Status DC Pharmacy Profile Note 1 each ONCE MISC; Start 09/23/24 at 21:30; Stop 09/24/24 at 07:08; Status DC Sodium Bicarbonate 650 mg TID PO Last administered on 09/26/24at 20:36; Start 09/24/24 at 09:00; Stop 09/27/24 at 10:34; Status DC Insulin Human Regular INSULIN SLIDING SCAL... ACHS SQ Last administered on 10/03/24at 05:48; Start 09/24/24 at 07:30; Stop 10/03/24 at 12:53; Status DC Vancomycin HCl 750 mg Q24H IVPB Last administered on 09/24/24at 22:43; Start 09/23/24 at 23:30; Stop 09/25/24 at 06:26; Status DC Fluconazole/ Sodium Chloride 800 mg ONCE ONCE IV; Start 09/24/24 at 14:00; Stop 09/24/24 at 13:50; Status DC Epoetin Moses-epbx 10,000 unit ONCE ONCE SQ Last administered on 09/24/24at 18:43; Start 09/24/24 at 16:00; Stop 09/24/24 at 16:01; Status DC Metoprolol Tartrate 5 mg STK-MED ONCE IV; Start 09/24/24 at 15:57; Stop 09/24/24 at 15:57; Status DC Metoprolol Succinate 50 mg BID PO Last administered on 09/24/24at 19:45; Start 09/24/24 at 21:00; Stop 09/26/24 at 07:14; Status DC Metoprolol Succinate 50 mg STK-MED ONCE PO; Start 09/24/24 at 19:28; Stop 09/24/24 at 19:28; Status DC Gabapentin 100 mg TID PO Last administered on 09/30/24at 14:07; Start 09/24/24 at 21:00; Stop 09/30/24 at 17:37; Status DC Vancomycin HCl 750 mg [id number] IVPB; Start 09/26/24 at 16:00; Stop 10/03/24 at 23:29; Status DC Metoprolol Succinate 100 mg ONCE ONCE PO Last administered on 09/25/24at 08:37; Start 09/25/24 at 08:30; Stop 09/25/24 at 08:31; Status DC Albuterol 1 udvial [id number] IH Last administered on 09/26/24at 11:17; Start 09/25/24 at 10:00; Stop 09/26/24 at 15:22; Status DC Metoprolol Tartrate 50 mg ONCE ONCE PO Last administered on 09/25/24at 16:09; Start 09/25/24 at 15:00; Stop 09/25/24 at 15:01; Status DC Epoetin Moses-epbx 10,000 unit ONCE ONCE SQ Last administered on 09/25/24at 17:52; Start 09/25/24 at 15:00; Stop 09/25/24 at 15:01; Status DC Fluconazole/ Sodium Chloride 200 mg Q24H IV Last administered on 09/26/24at 14:38; Start 09/25/24 at 16:00; Stop 09/27/24 at 10:36; Status DC Ondansetron HCl 4 mg STK-MED ONCE .ROUTE; Start 09/25/24 at 22:35; Stop 09/25/24 at 22:41; Status DC Sodium Chloride 250 ml @ 0 mls/hr Q0M IV; Start 09/25/24 at 23:00; Stop 09/27/24 at 10:34; Status DC Albumin Human 100 ml @ 0 mls/hr AD STAT IV Last administered on 09/25/24at 23:17; Start 09/25/24 at 23:09; Stop 09/25/24 at 23:12; Status DC Norepinephrine 250 ml @ 0 mls/hr AD PRN IV Last administered on 09/26/24at 01:40; Start 09/26/24 at 01:30; Stop 09/27/24 at 10:34; Status DC Ondansetron HCl 4 mg Q6H PRN IVP Last administered on 09/27/24at 08:51; Start 09/26/24 at 01:30; Stop 10/03/24 at 12:53; Status DC Morphine Sulfate 2 mg Q4H PRN IVP; Start 09/26/24 at 01:30; Stop 10/01/24 at 04:29; Status DC Ondansetron HCl 4 mg STK-MED ONCE .ROUTE; Start 09/26/24 at 01:21; Stop 09/26/24 at 01:21; Status DC Norepinephrine 250 ml @ As Directed STK-MED ONCE IV; Start 09/26/24 at 01:22; Stop 09/26/24 at 01:22; Status DC Metoprolol Succinate 25 mg BID PO Last administered on 10/03/24at 08:55; Start 09/26/24 at 09:00; Stop 10/03/24 at 12:53; Status DC Piperacillin Sod/ Tazobactam Sod 3.375 gm Q12H IV Last administered on 10/05/24at 23:22; Start 09/26/24 at 11:30; Stop 10/06/24 at 08:29; Status DC Insulin Glargine 15 units BID@0730,2100 SQ Last administered on 09/30/24at 07:03; Start 09/26/24 at 21:00; Stop 09/30/24 at 17:13; Status DC Albuterol 1 udvial [id number] PRN IH; Start 09/26/24 at 15:30; Stop 10/08/24 at 08:49; Status DC Oseltamivir Phosphate 75 mg Q24H PO Last administered on 09/27/24at 18:04; Start 09/26/24 at 17:00; Stop 09/27/24 at 17:01; Status DC Magnesium Sulfate 50 ml @ 0 mls/hr PROTOCOL IV; Start 09/26/24 at 18:30; Stop 09/27/24 at 10:25; Status DC Insulin Human Regular 100 unit/ Sodium Chloride 101 ml @ 0 mls/hr PROTOCOL IV Last administered on 09/26/24at 18:36; Start 09/26/24 at 18:30; Stop 09/27/24 at 10:25; Status DC Pantoprazole Sodium 40 mg BID IVP Last administered on 10/03/24at 08:55; Start 09/27/24 at 21:00; Stop 10/03/24 at 12:53; Status DC Pantoprazole Sodium 40 mg ONCE ONCE IVP Last administered on 09/27/24at 12:08; Start 09/27/24 at 12:00; Stop 09/27/24 at 12:01; Status DC Sodium Chloride 1,000 ml @ 0 mls/hr ONCE IV; Start 09/27/24 at 14:30; Stop 09/27/24 at 13:51; Status DC Sodium Chloride 1,000 ml @ 0 mls/hr ONCE IV Last administered on 10/07/24at 09:59; Start 09/27/24 at 15:00; Stop 10/27/24 at 14:59 Heparin Sodium (Porcine) 10,000 unit AD IRRIG Last administered on 10/01/24at 17:18; Start 09/27/24 at 14:00; Stop 10/27/24 at 13:59 Prednisone 20 mg DAILY PO Last administered on 09/30/24at 08:50; Start 09/28/24 at 09:00; Stop 10/01/24 at 08:59; Status DC Iohexol 35,000 mg STK-MED ONCE IV; Start 09/29/24 at 11:19; Stop 09/29/24 at 11:20; Status DC Iohexol 50 ml STK-MED ONCE IV; Start 09/29/24 at 12:17; Stop 09/29/24 at 12:17; Status DC Metoprolol Tartrate 5 mg STK-MED ONCE IV; Start 09/29/24 at 12:23; Stop 09/29/24 at 12:24; Status DC Epoetin Moses-epbx 10,000 unit ONCE ONCE SQ Last administered on 09/29/24at 16:48; Start 09/29/24 at 16:30; Stop 09/29/24 at 16:31; Status DC Albumin Human 100 ml ONCE ONCE IV; Start 09/29/24 at 15:15; Stop 09/29/24 at 16:54; Status DC Epoetin Moses-epbx 10,000 unit [id number] SQ Last administered on 10/01/24at 15:34; Start 10/01/24 at 09:00; Stop 10/06/24 at 15:12; Status DC Clopidogrel Bisulfate 75 mg DAILY PO Last administered on 09/30/24at 08:49; Start 09/30/24 at 09:00; Stop 10/01/24 at 08:26; Status DC Atorvastatin Calcium 40 mg HS PO Last administered on 10/08/24at 20:29; Start 09/30/24 at 21:00; Stop 10/30/24 at 20:59 Sodium Bicarbonate 100 meq ONCE ONCE IV Last administered on 09/30/24at 10:28; Start 09/30/24 at 09:00; Stop 09/30/24 at 09:01; Status DC Calcium Carbonate 1,000 mg TID PO Last administered on 10/06/24at 19:50; Start 09/30/24 at 14:00; Stop 10/07/24 at 00:52; Status DC Ergocalciferol 50,000 unit ONCE ONCE PO Last administered on 09/30/24at 14:07; Start 09/30/24 at 14:00; Stop 09/30/24 at 14:01; Status DC Insulin Glargine 20 units AM SQ; Start 10/01/24 at 09:00; Stop 09/30/24 at 17:26; Status DC Insulin Glargine 10 units HS SQ; Start 09/30/24 at 21:00; Stop 09/30/24 at 17:26; Status DC Insulin Glargine 30 units HS SQ Last administered on 10/01/24at 19:54; Start 09/30/24 at 21:00; Stop 10/02/24 at 07:19; Status DC Insulin Human Lispro 7 unit TIDAC SQ Last administered on 10/01/24at 16:22; Start 10/01/24 at 07:30; Stop 10/01/24 at 17:01; Status DC Dextrose 50 ml AD PRN IV; Start 09/30/24 at 17:30; Stop 10/01/24 at 08:25; Status DC Glucagon 1 mg AD PRN IM; Start 09/30/24 at 17:30; Stop 10/01/24 at 08:25; Status DC Gabapentin 100 mg DAILY PO Last administered on 10/08/24at 08:00; Start 10/01/24 at 09:00; Stop 10/24/24 at 20:59 Melatonin 5 mg ONCE ONCE PO Last administered on 09/30/24at 23:05; Start 09/30/24 at 23:00; Stop 09/30/24 at 23:01; Status DC Lidocaine HCl 20 ml STK-MED ONCE .ROUTE; Start 10/01/24 at 07:12; Stop 10/01/24 at 07:13; Status DC Iohexol 35,000 mg STK-MED ONCE IV; Start 10/01/24 at 07:12; Stop 10/01/24 at 07:14; Status DC Heparin Sodium (Porcine) 10,000 unit STK-MED ONCE .ROUTE; Start 10/01/24 at 07:12; Stop 10/01/24 at 07:14; Status DC Heparin Sodium/ Sodium Chloride 1,000 ml @ As Directed STK-MED ONCE IV; Start 10/01/24 at 07:12; Stop 10/01/24 at 07:14; Status DC Nitroglycerin 50 mg STK-MED ONCE .ROUTE; Start 10/01/24 at 07:12; Stop 10/01/24 at 07:14; Status DC Fentanyl Citrate 100 mcg STK-MED ONCE .ROUTE; Start 10/01/24 at 07:40; Stop 10/01/24 at 07:40; Status DC Midazolam HCl 2 mg STK-MED ONCE .ROUTE; Start 10/01/24 at 07:40; Stop 10/01/24 at 07:40; Status DC Verapamil HCl 5 mg STK-MED ONCE .ROUTE; Start 10/01/24 at 07:59; Stop 10/01/24 at 07:59; Status DC Dextrose 50 ml AD PRN IV Last administered on 10/05/24at 05:14; Start 10/01/24 at 08:30; Stop 10/31/24 at 08:29 Glucagon 1 mg AD PRN IM; Start 10/01/24 at 08:30; Stop 10/31/24 at 08:29 Hydralazine HCl 5 mg ONCE ONCE IV Last administered on 10/01/24at 18:26; Start 10/01/24 at 16:30; Stop 10/01/24 at 16:31; Status DC Hydralazine HCl 10 mg Q6H PRN IV; Start 10/01/24 at 16:30; Stop 10/03/24 at 12:53; Status DC Calcium Gluconate 1 gm/Sodium Chloride 100 ml @ 0 mls/hr PROTOCOL IV; Start 10/01/24 at 17:00; Stop 10/03/24 at 12:53; Status DC Insulin Human Lispro 10 unit TIDAC SQ; Start 10/01/24 at 17:00; Stop 10/01/24 at 19:41; Status DC Insulin Human Lispro 15 unit TIDAC SQ Last administered on 10/02/24at 07:01; Start 10/02/24 at 07:30; Stop 10/02/24 at 07:20; Status DC Insulin Glargine 50 units DAILY SQ Last administered on 10/02/24at 09:41; Start 10/02/24 at 07:30; Stop 10/02/24 at 16:53; Status DC Insulin Human Lispro 20 unit TIDAC SQ Last administered on 10/02/24at 11:48; Start 10/02/24 at 11:30; Stop 10/02/24 at 16:53; Status DC Cefazolin Sodium 2 gm ONCALL IVPB; Start 10/02/24 at 10:30; Stop 10/03/24 at 13:09; Status DC Insulin Glargine 50 units BID SQ Last administered on 10/03/24at 09:02; Start 10/02/24 at 21:00; Stop 10/03/24 at 12:53; Status DC Insulin Human Lispro 25 unit TIDAC SQ Last administered on 10/02/24at 17:17; Start 10/02/24 at 17:00; Stop 10/03/24 at 12:53; Status DC Cefazolin Sodium 1 gm STK-MED ONCE .ROUTE; Start 10/03/24 at 07:24; Stop 10/03/24 at 07:29; Status DC Heparin Sodium/ Sodium Chloride 500 ml @ As Directed STK-MED ONCE IV; Start 10/03/24 at 07:24; Stop 10/03/24 at 07:29; Status DC Papaverine HCl 60 mg STK-MED ONCE .ROUTE; Start 10/03/24 at 07:24; Stop 10/03/24 at 07:29; Status DC Epinephrine HCl 10 mg/Sodium Chloride 250 ml @ 0 mls/hr AD PRN IV Last administered on 10/04/24at 06:35; Start 10/03/24 at 10:00; Stop 11/02/24 at 09:59 Norepinephrine Bitartrate 250 ml @ 0 mls/hr AD PRN IV; Start 10/03/24 at 10:00; Stop 11/02/24 at 09:59 Aminocaproic Acid 73879 mg/Sodium Chloride 480 ml @ 0 mls/hr AD PRN IV; Start 10/03/24 at 10:00; Stop 11/02/24 at 09:59 Lidocaine HCl/ Dextrose 250 ml @ As Directed STK-MED ONCE IV; Start 10/03/24 at 11:16; Stop 10/03/24 at 11:17; Status DC Nitroglycerin/ Dextrose 1 ml @ As Directed STK-MED ONCE .ROUTE; Start 10/03/24 at 11:16; Stop 10/03/24 at 11:17; Status DC Dextrose 50 ml STK-MED ONCE IV; Start 10/03/24 at 11:44; Stop 10/03/24 at 11:44; Status DC Cefazolin Sodium 2 gm STK-MED ONCE .ROUTE; Start 10/03/24 at 12:52; Stop 10/03/24 at 12:52; Status DC Acetaminophen 1,000 mg Q6H6 IV Last administered on 10/04/24at 11:18; Start 10/03/24 at 18:00; Stop 10/04/24 at 17:59; Status DC Aspirin 81 mg ONCE ONCE NG Last administered on 10/03/24at 17:31; Start 10/03/24 at 17:00; Stop 10/03/24 at 17:02; Status DC Docusate Sodium 100 mg BID PO Last administered on 10/08/24at 20:29; Start 10/03/24 at 21:00; Stop 11/02/24 at 20:59 Lactulose 20 gm BID PRN PO; Start 10/03/24 at 13:00; Stop 11/02/24 at 12:59 Atorvastatin Calcium 40 mg HS PO; Start 10/03/24 at 21:00; Stop 10/03/24 at 12:58; Status DC Magnesium Hydroxide 30 ml DAILY PRN PO; Start 10/03/24 at 13:00; Stop 11/02/24 at 12:59 Dexmedetomidine/ Sodium Chloride 400 mcg PROTOCOL IV; Start 10/03/24 at 13:00; Stop 10/04/24 at 12:59; Status DC Acetaminophen 650 mg Q6H PRN PO Last administered on 10/07/24at 20:54; Start 10/03/24 at 13:00; Stop 11/02/24 at 12:59 Protamine Sulfate 250 mg STK-MED ONCE IV; Start 10/03/24 at 12:54; Stop 10/03/24 at 12:55; Status DC Lidocaine HCl 100 mg STK-MED ONCE .ROUTE; Start 10/03/24 at 12:55; Stop 10/03/24 at 12:55; Status DC Heparin Sodium (Porcine) 10,000 unit STK-MED ONCE .ROUTE; Start 10/03/24 at 12:55; Stop 10/03/24 at 12:55; Status DC Epinephrine HCl 1 mg STK-MED ONCE .ROUTE; Start 10/03/24 at 12:55; Stop 10/03/24 at 12:55; Status DC Sodium Bicarbonate 200 ml @ As Directed STK-MED ONCE .ROUTE; Start 10/03/24 at 12:55; Stop 10/03/24 at 12:55; Status DC Norepinephrine Bitartrate 4 mg STK-MED ONCE IV; Start 10/03/24 at 12:55; Stop 10/03/24 at 12:55; Status DC Fentanyl Citrate 1,000 mcg STK-MED ONCE IJ; Start 10/03/24 at 12:55; Stop 10/03/24 at 12:55; Status DC Propofol 200 mg STK-MED ONCE IV; Start 10/03/24 at 12:55; Stop 10/03/24 at 12:56; Status DC Midazolam HCl 2 mg STK-MED ONCE .ROUTE; Start 10/03/24 at 12:55; Stop 10/03/24 at 12:56; Status DC Rocuronium Paragon 50 mg STK-MED ONCE .ROUTE; Start 10/03/24 at 12:56; Stop 10/03/24 at 12:56; Status DC Etomidate 20 mg STK-MED ONCE .ROUTE; Start 10/03/24 at 12:59; Stop 10/03/24 at 13:00; Status DC Sodium Chloride 1,000 ml @ 10 mls/hr ONCE IV; Start 10/03/24 at 13:00; Stop 10/04/24 at 12:59; Status DC Sodium Chloride 10 ml Q8H PRN IVP; Start 10/03/24 at 13:00; Stop 11/02/24 at 12:59 Morphine Sulfate 0.5 mg Q2H PRN IV Last administered on 10/03/24at 20:56; Start 10/03/24 at 13:00; Stop 10/04/24 at 10:49; Status DC Morphine Sulfate 1 mg Q2H PRN IV; Start 10/03/24 at 13:00; Stop 10/04/24 at 10:49; Status DC Acetaminophen 650 mg Q4H PRN RC; Start 10/03/24 at 13:00; Stop 11/02/24 at 12:59 Ondansetron HCl 4 mg Q6H PRN IV Last administered on 10/04/24at 16:35; Start 10/03/24 at 13:00; Stop 11/02/24 at 12:59 Sodium Chloride 500 ml @ 0 mls/hr AD IV; Start 10/03/24 at 13:00; Stop 11/02/24 at 12:59 Nitroglycerin/ Dextrose 0 ml @ 0 mls/hr AD IV; Start 10/03/24 at 13:00; Stop 10/06/24 at 12:59; Status DC Propofol 100 ml @ 0 mls/hr AD PRN IV; Start 10/03/24 at 13:00; Stop 10/07/24 at 12:59; Status DC Norepinephrine Bitartrate 8 mg/ Dextrose 250 ml @ 0 mls/hr AD PRN IV; Start 10/03/24 at 13:00; Stop 10/03/24 at 13:03; Status DC Epinephrine HCl 10 mg/Sodium Chloride 250 ml @ 0 mls/hr AD PRN IV; Start 10/03/24 at 13:00; Stop 10/03/24 at 13:03; Status DC Aminocaproic Acid 09323 mg/Sodium Chloride 310 ml @ 25 mls/hr AD IV; Start 10/03/24 at 13:00; Stop 10/03/24 at 13:03; Status DC Calcium Gluconate 1 gm/Sodium Chloride 60 ml @ 200 mls/hr AD PRN IV Last administered on 10/05/24at 11:32; Start 10/03/24 at 13:00; Stop 11/02/24 at 12:59 Magnesium Sulfate 50 ml @ 12.5 mls/hr AD PRN IV Last administered on 10/03/24at 17:21; Start 10/03/24 at 13:00; Stop 11/02/24 at 12:59 Potassium Chloride 100 ml @ 100 mls/hr AD PRN IV; Start 10/03/24 at 13:00; Stop 11/02/24 at 12:59 Potassium Phosphate 250 ml @ 42 mls/hr AD PRN IV; Start 10/03/24 at 13:00; Stop 11/02/24 at 12:59 Albumin Human 250 ml @ 0 mls/hr AD PRN IV Last administered on 10/03/24at 17:23; Start 10/03/24 at 13:00; Stop 10/03/24 at 17:24; Status DC Acetaminophen 650 mg Q4H PRN PO; Start 10/03/24 at 13:00; Stop 11/02/24 at 12:59 Insulin Human Regular 100 unit/ Sodium Chloride 100 ml @ 0 mls/hr AD IV Last administered on 10/03/24at 17:38; Start 10/03/24 at 13:00; Stop 10/05/24 at 12:59; Status DC Cefazolin Sodium 2 gm Q8H IVPB Last administered on 10/04/24at 09:46; Start 10/03/24 at 18:00; Stop 10/04/24 at 10:01; Status DC Tramadol HCl 25 mg Q6H PRN PO; Start 10/03/24 at 13:00; Stop 10/08/24 at 12:59; Status DC Tramadol HCl 50 mg Q6H PRN PO Last administered on 10/08/24at 08:01; Start 10/03/24 at 13:00; Stop 10/08/24 at 12:59; Status DC Famotidine 20 mg Q48H IV Last administered on 10/07/24at 20:54; Start 10/03/24 at 21:00; Stop 11/02/24 at 20:59 Sodium Bicarbonate 50 meq AD PRN IV Last administered on 10/03/24at 20:57; Start 10/03/24 at 13:00; Stop 10/06/24 at 12:59; Status DC Dextrose 50 ml AD PRN IV; Start 10/03/24 at 13:00; Stop 10/03/24 at 13:04; Status DC Glucagon 1 mg AD PRN IM; Start 10/03/24 at 13:00; Stop 10/03/24 at 13:04; Status DC Amiodarone HCl 150 mg STK-MED ONCE .ROUTE; Start 10/03/24 at 13:45; Stop 10/03/24 at 13:46; Status DC Potassium Chloride 300 ml @ As Directed STK-MED ONCE IV; Start 10/03/24 at 14:24; Stop 10/03/24 at 14:25; Status DC Heparin Sodium (Porcine) 10,000 unit STK-MED ONCE .ROUTE; Start 10/03/24 at 14:28; Stop 10/03/24 at 14:29; Status DC Lidocaine HCl 100 mg STK-MED ONCE .ROUTE; Start 10/03/24 at 14:30; Stop 10/03/24 at 14:30; Status DC Vasopressin 20 units STK-MED ONCE .ROUTE; Start 10/03/24 at 14:39; Stop 10/03/24 at 14:39; Status DC Albumin Human 500 ml @ As Directed STK-MED ONCE IV; Start 10/03/24 at 15:20; Stop 10/03/24 at 15:20; Status DC Albumin Human 250 ml @ As Directed STK-MED ONCE IV; Start 10/03/24 at 15:58; Stop 10/03/24 at 15:58; Status DC Cefazolin Sodium 3 gm STK-MED ONCE IVPB Last administered on 10/03/24at 13:15; Start 10/03/24 at 13:15; Stop 10/03/24 at 17:02; Status DC Papaverine HCl 60 mg STK-MED ONCE IRRIG Last administered on 10/03/24at 13:45; Start 10/03/24 at 13:45; Stop 10/03/24 at 17:02; Status DC Cefazolin Sodium 1 gm STK-MED ONCE IRRIG Last administered on 10/03/24at 13:45; Start 10/03/24 at 13:45; Stop 10/03/24 at 17:02; Status DC Vasopressin 20 units/Sodium Chloride 100 ml @ 0 mls/hr PROTOCOL IV Last administered on 10/04/24at 06:34; Start 10/03/24 at 19:30; Stop 11/02/24 at 19:29 Albumin Human 100 ml ONCE ONCE IV Last administered on 10/04/24at 07:24; Start 10/04/24 at 06:30; Stop 10/04/24 at 06:31; Status DC Epoetin Moses-epbx 10,000 unit ONCE ONCE SQ Last administered on 10/04/24at 13:14; Start 10/04/24 at 13:00; Stop 10/04/24 at 13:05; Status DC Albumin Human 100 ml @ As Directed STK-MED ONCE IV Last administered on 10/05/24at 16:18; Start 10/05/24 at 15:46; Stop 10/05/24 at 15:46; Status DC Albumin Human 100 ml ONCE IV Last administered on 10/05/24at 16:18; Start 10/05/24 at 16:00; Stop 10/06/24 at 15:59; Status DC Insulin Human Regular INSULIN SLIDING SCAL... ACHS SQ; Start 10/05/24 at 16:30; Stop 10/06/24 at 06:12; Status DC Guaifenesin/ Dextromethorphan 15 ml Q4H PRN PO Last administered on 10/06/24at 01:35; Start 10/06/24 at 01:30; Stop 11/05/24 at 01:29 Insulin Glargine 20 units DAILY SQ Last administered on 10/06/24at 09:16; Start 10/06/24 at 09:00; Stop 10/07/24 at 12:41; Status DC Insulin Human Regular INSULIN SLIDING SCAL... ACHS SQ Last administered on 10/08/24at 20:41; Start 10/06/24 at 07:30; Stop 11/05/24 at 07:29 Insulin Human Regular 5 unit TIDAC SQ Last administered on 10/06/24at 17:10; Start 10/06/24 at 07:30; Stop 10/06/24 at 19:15; Status DC Metoprolol Tartrate 12.5 mg BID PO Last administered on 10/08/24at 08:00; Start 10/06/24 at 09:00; Stop 10/08/24 at 08:34; Status DC Epoetin Moses-epbx 10,000 unit QTUTHSA SQ; Start 10/07/24 at 09:00; Stop 10/07/24 at 13:20; Status DC Insulin Human Regular 10 unit TIDAC SQ; Start 10/07/24 at 07:30; Stop 10/07/24 at 12:41; Status DC Calcium Carbonate 1,000 mg TIDMEALS PO Last administered on 10/08/24at 17:53; Start 10/07/24 at 08:00; Stop 10/30/24 at 13:59 Insulin Glargine 15 units DAILY SQ Last administered on 10/08/24at 08:11; Start 10/08/24 at 09:00; Stop 11/07/24 at 08:59 Insulin Human Regular 5 unit TIDAC SQ Last administered on 10/07/24at 18:24; Start 10/07/24 at 17:00; Stop 10/08/24 at 05:46; Status DC Epoetin Moses-epbx 10,000 unit QTUTHSA SQ Last administered on 10/07/24at 18:21; Start 10/07/24 at 16:00; Stop 11/06/24 at 15:59 Vitamin B Complex 1,000 mcg DAILY PO Last administered on 10/08/24at 08:02; Start 10/08/24 at 09:00; Stop 11/07/24 at 08:59 Folic Acid 1 mg DAILY PO Last administered on 10/08/24at 08:00; Start 10/08/24 at 09:00; Stop 11/07/24 at 08:59 Insulin Human Regular 8 unit TIDAC SQ Last administered on 10/08/24at 06:47; Start 10/08/24 at 07:30; Stop 10/08/24 at 12:41; Status DC Metoprolol Tartrate 25 mg BID PO Last administered on 10/08/24at 20:29; Start 10/08/24 at 09:00; Stop 11/07/24 at 08:59 Ipratropium Paragon 0.5 MG Q6H PRN IH; Start 10/08/24 at 09:00; Stop 11/07/24 at 08:59 Insulin Human Regular 12 unit TIDAC SQ Last administered on 10/08/24at 18:03; Start 10/08/24 at 17:00; Stop 10/08/24 at 20:17; Status DC Insulin Human Regular 15 unit TIDAC SQ; Start 10/09/24 at 07:30; Stop 11/08/24 at 07:29 BROOKLYN HUSSEIN MD Oct 08, 2024 23:27
[2024-10-09] VITALS (29 sets, daily range): BP systolic 125–161; BP diastolic 72–93; PULSE 83–107; RESP 16–20; TEMP 97.8–98.7; O2SAT 95–100
[2024-10-09] MEDS: INSULIN humuLIN R 100 UNIT/ML 3ML SQ SCH ×2 (00:15→07:30)
[2024-10-09 04:21] LABS: MEAN CORPUSCULAR HEMOGLOBIN 28.6 pg (27.0-33.0); MEAN CORPUSCULAR VOLUME 86.6 fL (79-99); RED BLOOD CELL COUNT(AUTO) 2.38 MIL/uL (4.50-6.20); RED CELL DISTRIBUTION WIDTH 15.9 % (11.0-15.5); WHITE BLOOD COUNT (AUTO) 6.2 K/uL (4.8-10.8)
[2024-10-09 04:23] LABS: HEMATOCRIT 20.6 % (42-54)
[2024-10-09 04:25] LABS: INR 1.03 (0.85-1.15); PROTHROMBIN TIME 11.5 SEC (9.6-11.6)
[2024-10-09 04:26] LABS: PARTIAL THROMBOPLASTIN TIME 29.7 SEC (26.3-35.5)
[2024-10-09 04:36] LABS: ALBUMIN 2.2 g/dL (3.5-5.0); BILIRUBIN,DIRECT 0.1 mg/dL (0.0-0.3); BILIRUBIN,TOTAL 0.5 mg/dL (0.2-1.0); POTASSIUM 4.5 mmol/L (3.5-5.1)
[2024-10-09 05:03] LABS: CREATININE 10.4 mg/dL (0.5-1.3)
[2024-10-09 08:00] LABS: HEMATOCRIT 21.7 % (42-54)
[2024-10-09] MEDS: INSULIN GLARgine 100 UNITS/ML 10 ML VIAL SQ SCH (08:01)
--- NOTE | 2024-10-09 08:58 | PN ---
[facility] CARDIOLOGY PROGRESS NOTE Date Patient Seen: Oct 09, 2024 Time of Visit: 08:55 Problem List: * Premature coronary artery disease with nontransmural myocardial infarction and unstable angina on presentation. * Severe 3-vessel coronary artery disease by cardiac catheterization on this admission. * Status post coronary artery bypass graft surgery x 3 with APARICIO to the LAD, saphenous vein graft to the posterior left ventricular branch of the circumflex and saphenous vein graft to the PDA, 10/03/2024 with findings of small targets intraoperatively. * Postoperative thrombocytopenia, improving * Ischemic cardiomyopathy with EF of 35-40% by echocardiography, 09/23/2024, ? hibernating myocardium. * Acute on chronic systolic and diastolic congestive heart failure with reduced ejection fraction. * End-stage renal disease, status post initiation of hemodialysis on this admission. * History of influenza pneumonia with sepsis on this admission, resolving. * Acute hypoxemic respiratory failure, resolving. * Diabetes mellitus type 2, with circulatory and renal manifestations. * Hyperosmolar hyperglycemic syndrome. * Hypertension. * Hyperlipoproteinemia. * Protein calorie malnutrition * Obesity * Concern for JEANINE Interval History: Pt is evaluated in his room, improving BP, improving thrombocytopenia. Pt has improved respiratory status with weaning of oxygen ongoing. Pt was tachycardic last night, we will uptitrate the betablockers today since BP is increasing. CXR shows improved aeration to the LLL today, still with some vascular congestion and atelectasis, pending report from radiologist. 10/09/2024 Pt frustrated this morning as he is not eating breakfast pending HD permacath placement. He remains edematous but mildly improved from yesterday, Continues on oxygen 2lpm. He will have HD again today. Pt anticipates going home soon. He will have ARB started today and we will attempt jardiance 10mg po daily. Physical Examination: GENERAL: No acute distress. HEAD: Normal with no signs of head trauma. EYES: PERRLA, EOMI, conjunctiva and sclera normal. ENT: Hearing grossly intact, normal oropharynx. NECK: Supple without JVD. There is no tenderness, lymphadenopathy, or masses. No thyromegaly. Normal carotid upstrokes without bruits. LUNGS: Crackles to bases bilaterally. HEART: Tachycardic rate and normal rhythm. Normal S1 and S2 without murmurs, gallop or rub. VASC: BLE 2+ pitting edema ABD: Bowel sounds normal, soft, nontender, no masses, no organomegaly. No audible bruits. : Not examined LYMPH: No lymphadenopathy noted. EXT: No clubbing or cyanosis, 2+ bilateral lower extremity pitting edema SKIN: No rashes or lesions noted. NEURO: Awake, alert, and oriented x3. No focal sensory or strength deficits noted. Laboratory: [ ] Hematology Labs: Test 10/09/24 07:52 10/09/24 04:00 Range/Units Hemoglobin 7.2 L 14.0-18.0 g/dL Hematocrit 21.7 L 42-54 % White Blood Count 6.2 4.8-10.8 K/uL Red Blood Count 2.38 L 4.50-6.20 MIL/uL Mean Corpuscular Volume 86.6 79-99 fL Mean Corpuscular Hemoglobin 28.6 27.0-33.0 pg Mean Corpuscular Hemoglobin Concent 33.0 32.0-36.0 g/dL Red Cell Distribution Width 15.9 H 11.0-15.5 % Platelet Count 80 #L 130-400 K/uL Mean Platelet Volume 11.5 H 7.5-10.5 fL Nucleated Red Blood Cells 0.0 0.0-0.19 % Chemistry Labs: Test 10/09/24 06:03 10/09/24 04:00 Range/Units Whole Blood Glucose 212 H 70-110 MG/DL Sodium Level 134 L 136-145 mmol/L Potassium Level 4.5 3.5-5.1 mmol/L Chloride Level 95 L 101-111 mmol/L Carbon Dioxide Level 29 21-32 mmol/L Blood Urea Nitrogen 78 *H 7-18 mg/dL Creatinine 10.4 *H 0.5-1.3 mg/dL Glomerular Filtration Rate Calc 6 >90 mL/min Random Glucose 213 H 70-105 mg/dL Total Calcium 7.9 L 8.5-10.1 mg/dL Phosphorus Level 7.0 H 2.5-4.9 mg/dL Total Bilirubin 0.5 0.2-1.0 mg/dL Direct Bilirubin 0.1 0.0-0.3 mg/dL Aspartate Amino Transf (AST/SGOT) 24 10-37 U/L Alanine Aminotransferase (ALT/SGPT) 32 12-78 U/L Alkaline Phosphatase 230 H 50-136 U/L Total Protein 6.0 6.0-8.3 g/dL Albumin 2.2 L 3.5-5.0 g/dL Coagulation Labs: Test 10/09/24 04:00 Range/Units Prothrombin Time 11.5 9.6-11.6 SEC Prothromb Time International Ratio 1.03 0.85-1.15 Activated Partial Thromboplast Time 29.7 26.3-35.5 SEC Diagnostics / Radiology: [Copy/Paste Echos/Imaging Report here] Impression and Plan: asa 81 mg po daily Increase IS use Titrate the betablocker up to 25mg po bid Add losartan 25mg po daily Add jardiance 10mg po daily Continue lasix 20mg po bid and spironolactone 50mg po bid Educate on fluid and salt restrictions Renal diet FR 1 liter per day SADIE MCDONALD AGACNLizy Oct 09, 2024 08:58
[2024-10-09] MEDS: EMPAGLIFLOZIN 10MG TABLET PO SCH (09:00)
[2024-10-09] MEDS: LoSARTan 25 MG TABLET PO SCH ×2 (09:00→15:27)
[2024-10-09] MEDS ORDERED: LIDOCAINE HCL 1% 20 ML VIAL ONE (13:41)
[2024-10-09] MEDS ORDERED: HEParin-NS 1,000 UNIT/500 ML 500 ML IV ONE (13:41)
[2024-10-09] MEDS ORDERED: HEParin 1,000 UNIT VIAL ONE (13:48)
--- NOTE | 2024-10-09 13:52 | NUR ---
TRANSFER phlebotomist lab assistant RN here to take patient to procedure. Patient is to have a Permacath placed this afternoon. Patient transferred now.
--- NOTE | 2024-10-09 14:27 | PN ---
[facility] PROGRESS NOTE Date of Service: Oct 09, 2024 Time of Service: 14:23 SUBJECTIVE: This is a 49-year-old male with past medical history of CKD not on hemodialysis, diabetes, hypertension, hyperlipidemia and obesity who presents to the ED for complaints of cough and chest congestion which started last Sunday and getting worse on Sunday. Patient reports coughing up pinkish colored thick phlegm, loss of appetite and on Sunday started not eating unable to sleep, vomiting and having chest pain triggered by persistent coughing he said.Patient reports having soreness due to hard cough he said.Patient reports having sweeling on both lower extremities and started having shortness of breath and today he started having non bloody diarrhea. Neela was at bedside during my evaluation. Upon arrival to ER a STEMI alert was activated per ER MD and spoke to [employer] bilingual sales consultant and as per report patient is possibly going to cathlab tomorrow and patient is going to be started on Heparin and Insulin drip. Seen and examined patient in the Er awake,alert and coherent,appears weak looking.Patient denies fever,palpitation ,dizziness ,sore throat and headache. Latest vital signs temperature 98.1, heart rate 108, respiration 30 blood pressure 130/68 saturation 91% on 4 L nasal cannula. Labs: WBC 11.2, hemoglobin 9, hematocrit 27, platelet count 238, neutrophils 88. PH 7.32, CO2 26, PO2 49.6, bicarb 13, PO2 80 base excess -11.3. Sodium 129, potassium 5.9, chloride 93, CO2 19, BUN 88, creatinine 8.2, GFR seven glucose 876 , lactic acid 3.0-3.2, troponin 5531 albumin 2.1. Influenza A positive influenza B negative SARs COVID negative. Strep A negative. Chest x-ray result revealed extensive bilateral mid to lower lung pneumonia right greater than left. First ECG result revealed sinus tachycardia heart rate 121 probable left atrial enlargement repolarization abnormal suggest ischemia diffuse leads ST-elevation consider anterior injury. Second EKG result revealed sinus tachycardia repolarization abnormality suggest ischemia diffuse leads borderline ST elevation anterior leads heart rate 108. While in the ER patient received Tamiflu 75 mg p.o., 1 L NS bolus, Lopressor 5 mg IV, insulin 10 units IV, Zosyn IV, Zofran 4 mg IV and Phenergan codeine 10 mL p.o. we will admit patient in ICU for further medical management. 10/02/24 Patient was seen and examined at bedside. He is alert, awake and oriented. No acute events overnight. He denies chest pain or abdominal pain or palpitations or dizziness or shortness of breath. Dr. Page was consulted for CABG, he will be scheduled for it later this week or next week. Dr. Perry was consulted because of constant hyperglycemia, changed his lantus to 30 and lispro 10U TID , will follow up on the glucose levels next 24 hours.As per his , Lantus never worked for him, will try 70/30 if it is not under control. Remarkable labs are sodium 135, Chloride 97, BUN 85, Creatinine 9.1, glucose 454, corrected calcium 7.4, phosphorous 6.5, his liver function is improving. 10/03/24 Patient was seen and examined at bedside. He is alert, awake and oriented. No acute events overnight. He denies chest pain or abdominal pain or palpitations or dizziness or shortness of breath. He will be taken to surgery this afternoon for CABG by . His blood glucose is improving. We will labs or hemoglobin 9.1, chloride 99, BUN 67, creatinine 8.4, HbA1c 12.0, total calcium improving from 7.4-7.6, BNP 2810, ALT improving from 897 to 638, LDL 134, [place] [address] to [address]. Chest x-ray showed clear lungs with right Permcath at the tip of distal superior vena cava level. 10/07/24 Patient was seen and examined at bedside. He has been dowgraded to PCCU. Dr. Parker has d/c'ed chest tubes, radial artery line, swan winetr and cordis. His vitals are blood pressure 135/89, pulse rate 98, respiratory rate 20, SpO2 97% on 2 L nasal cannula, T-max 98.8. We will try to wean him off oxygen as tolerated. Dr. Hinton recommended direct coomb's due to thrombocytopenia which was negative. Recommended platelet transfusion. Remarkable labs are H&H 8&24.7, chloride 100, BUN 61, creatinine 9.0, blood glucose 52, phosphorus 7.4. His PermCath will be placed outpatient. Plan is to DC him to home once his thro mbocytopenia improves and he passes the 6 minute walk test. 10/08/24 Patient was seen and examined at bedside. Today his vitals are blood pressure 130/64, pulse rate 97, respiratory rate 18, T-max 98.4, SpO2 100 % on2 L nasal cannula. Will try to wean him off oxygen as tolerated He is resting comfortably in the chair, denies chest pain or shortness of breath or dizziness or palpitations or nausea or vomitings or diaphoresis. He did complain of mild leg pain and blisters near the graft site on left lower extremity. His metoprolol has been changed to 25 mg b.i.d. due to increased heart rate and blood pressure by Cardiology. Nephrology has recommended PermCath placement in the morning tomorrow. He will be transfused platelets in the morning. His Glucose is still elevated in 200s. Patient wants to be placed on insulin 70 30 after discharge as his insurance does not cover Lantus. Remarkable labs or hemoglobin 7.2, hematocrit 22.1, platelets 26442, sodium 134, chloride 95, BUN 57, creatinine 7.9, glucose 199. He is qualified for home O2 and a dialysis outpatient chair at [facility] 10/09/24 Patient was seen and examined at bedside. He is alert, awake and oriented. No acute events overnight, he is hemodynamically stable. His vitals are blood pressure a 139/78, pulse rate 88, respiratory rate 16, SpO2 100% on 2 L nasal cannula. Patient is upset that he has been NPO since last night for PermCath placement this morning. He is currently undergoing dialysis when I went in. Remarkable labs are hemoglobin 6.8, hematocrit 20.6, platelets 80, BUN 78, creatinine 10.4, sodium 134, chloride 95, glucose 213, phosphorus 7, ALP 230. H&H improved to 7.2 and 21.7 after 1 unit RBC transfusion. He was started on losartan 25 mg and and empagliflozin 10 mg by cardiology. Plan is to discharge him to home tomorrow if he is hemodynamically stable. REVIEW OF SYSTEMS CONSTITUTIONAL: Denies fevers, chills, or night sweats. No unintentional weight loss reported. NEUROLOGICAL: Denies headache, amaurosis fugax, motor weakness, sensory deficit, vertigo/spinning sensation, gait abnormalities, or tremors. ENT: No hearing loss, otalgia, otorrhea, rhinitis, rhinorrhea, hoarseness, or sore throat. CARDIOVASCULAR: Denies orthopnea shortness of breaths and chest pain Denies paroxysmal nocturnal dyspnea, palpitations, life-threatening arrhythmias, claudication. PULMONARY: Denies productive cough , pleuritic chest pain and shortness of breaths SLEEP: Complains of unable to sleep Denies morning headaches, daytime somnolence or napping. Denies waking from sleep. Denies knowledge of snoring. GASTROINTESTINAL: Denies loss of appetite, vomiting and diarrhea Denies any ty pe of dysphagia to either liquids or solids. Denies nausea, vomiting, pyrosis, early satiety, abdominal pain, diarrhea, constipation, or changes in stool consistency or caliber. Denies coffee-ground emesis, hematemesis, hematochezia, or melanotic stools. GENITOURINARY: Denies frequency, urgency, nocturia, hematuria or incontinence (Storage/Irritative symptoms.) Low urinary stream, straining to void, urinary intermittency or hesitancy, splitting of the voiding stream, terminal dribbling. ENDOCRINOLOGIC: Denies polyuria, polydipsia, polyphagia or heat/cold intolerances. Patient reports not taking medications for diabetes because he was not eating. HEMATOLOGIC: Denies thrombophilia/previous clots, or coagulopathy/bleeding disorders. ONCOLOGIC: Denies personal history of malignancy. DERMATOLOGIC: Denies rashes or pruritus. PSYCHIATRIC: Denies any suicidal or homicidal ideation. Denies hallucinations. PHYSICAL EXAM GENERAL APPEARANCE: The patient is awake, alert, and oriented appears generally weak NEUROLOGICAL: Cranial nerves II-XII grossly intact. Motor is 5/5 in bilateral upper and lower extremities proximal to distal. No sensory deficits. HEENT: Face is symmetric. Pupils are equal and reactive. Extraocular movements are intact. NECK: Supple. No JVD. No thyromegaly. No submental, submandibular, pre- /postauricular, occipital or supraclavicular lymphadenopathy. CHEST: Normal chest expansion. No Telemetry. LUNGS: . Diminished lung sounds to bilateral lung james CARDIOVASCULAR: Regular. S1 and S2 normal. No appreciable rubs, murmurs or gallops. ABDOMEN: Round and firmed There is no rebound, voluntary guarding, or rigidity. : Deferred. No Del Cid. EXTREMITIES: Bilateral lower extremity edema No clubbing. Good capillary refill. SKIN: No skin breakdown. Vital Signs (last 8hr) Date Time Temp Pulse Resp B/P (MAP) Pulse Ox O2 Delivery O2 Flow Rate FiO2 10/09/24 13:09 98.1 96 18 134/79 100 Nasal Cannula 2.0 10/09/24 12:55 88 16 125/78 Nasal Cannula 2.0 10/09/24 12:40 86 16 130/80 Nasal Cannula 2.0 10/09/24 12:25 89 16 146/85 Nasal Cannula 2.0 10/09/24 12:10 88 16 139/78 Nasal Cannula 2.0 10/09/24 11:55 93 16 161/93 Nasal Cannula 2.0 10/09/24 11:40 89 16 150/84 Nasal Cannula 2.0 10/09/24 11:34 97.9 95 18 134/79 Nasal Cannula 2.0 10/09/24 11:25 89 16 133/80 Nasal Cannula 2.0 10/09/24 11:10 86 16 145/81 Nasal Cannula 2.0 10/09/24 10:55 89 16 150/84 Nasal Cannula 2.0 10/09/24 10:40 89 16 147/86 Nasal Cannula 2.0 10/09/24 10:25 97 16 146/78 Nasal Cannula 2.0 10/09/24 10:10 97.9 83 18 160/84 Nasal Cannula 2.0 10/09/24 10:00 97.9 90 18 140/81 Nasal Cannula 2.0 10/09/24 08:10 100 Nasal Cannula* 2 28 10/09/24 08:02 98.4 90 18 131/83 100 Nasal Cannula 2.0 LABS: Laboratory: Test 10/09/24 11:39 10/09/24 07:52 10/09/24 04:00 Range/Units Whole Blood Glucose 141 H 70-110 MG/DL Hemoglobin 7.2 L 14.0-18.0 g/dL Hematocrit 21.7 L 42-54 % White Blood Count 6.2 4.8-10.8 K/uL Red Blood Count 2.38 L 4.50-6.20 MIL/uL Mean Corpuscular Volume 86.6 79-99 fL Mean Corpuscular Hemoglobin 28.6 27.0-33.0 pg Mean Corpuscular Hemoglobin Concent 33.0 32.0-36.0 g/dL Red Cell Distribution Width 15.9 H 11.0-15.5 % Platelet Count 80 #L 130-400 K/uL Mean Platelet Volume 11.5 H 7.5-10.5 fL Nucleated Red Blood Cells 0.0 0.0-0.19 % Prothrombin Time 11.5 9.6-11.6 SEC Prothromb Time International Ratio 1.03 0.85-1.15 Activated Partial Thromboplast Time 29.7 26.3-35.5 SEC Sodium Level 134 L 136-145 mmol/L Potassium Level 4.5 3.5-5.1 mmol/L Chloride Level 95 L 101-111 mmol/L Carbon Dioxide Level 29 21-32 mmol/L Blood Urea Nitrogen 78 *H 7-18 mg/dL Creatinine 10.4 *H 0.5-1.3 mg/dL Glomerular Filtration Rate Calc 6 >90 mL/min Random Glucose 213 H 70-105 mg/dL Total Calcium 7.9 L 8.5-10.1 mg/dL Phosphorus Level 7.0 H 2.5-4.9 mg/dL Total Bilirubin 0.5 0.2-1.0 mg/dL Direct Bilirubin 0.1 0.0-0.3 mg/dL Aspartate Amino Transf (AST/SGOT) 24 10-37 U/L Alanine Aminotransferase (ALT/SGPT) 32 12-78 U/L Alkaline Phosphatase 230 H 50-136 U/L Total Protein 6.0 6.0-8.3 g/dL Albumin 2.2 L 3.5-5.0 g/dL Current Medications Medications (Trade) Dose Ordered Sig/Sierra Route PRN Reason Start Time Stop Time Status Last Admin Dose Admin Acetaminophen (TYLenol 325MG TAB) 650 mg Q4H PRN PO MILD PAIN (1-3) 09/21/24 19:30 10/03/24 12:53 DC 09/30/24 01:32 650 MG Acetaminophen (TYLenol 325MG TAB) 650 mg Q4H PRN PO Temp >38.3C(AFTER EXTUBATION) 10/03/24 13:00 11/02/24 12:59 Acetaminophen (TYLenol 325MG TAB) 650 mg Q6H PRN PO TEMPERATURE GREATER THAN 101.5 09/21/24 19:30 10/03/24 12:53 DC Acetaminophen (TYLenol 325MG TAB) 650 mg Q6H PRN PO MILD PAIN (1-3) 10/03/24 13:00 11/02/24 12:59 10/09/24 06:49 650 MG Acetaminophen (TYLenol 650MG SUPPOSITORY) 650 mg Q4H PRN RC Temp >38.3C WHILE INTUBATED 10/03/24 13:00 11/02/24 12:59 Acetaminophen (acetaMINOPHEN) 1,000 mg Q6H6 IV 10/03/24 18:00 10/04/24 17:59 DC 10/04/24 11:18 1,000 MG Albumin Human 100 ml @ 0 mls/hr AD STAT IV 09/25/24 23:09 09/25/24 23:12 DC 09/25/24 23:17 100 MLS/HR Albumin Human 250 ml @ 0 mls/hr AD PRN IV IF HEMODYNAMICALLY UNSTABLE 10/03/24 13:00 10/03/24 17:24 DC 10/03/24 17:23 250 MLS/HR Albumin Human (Albumin (Human) 25%) 100 ml ONCE IV 10/05/24 16:00 10/06/24 15:59 DC 10/05/24 16:18 100 ML Albuterol (DUOneb) 1 udvial [id number] IH 09/21/24 22:00 09/25/24 09:59 DC 09/25/24 06:43 1 UDVIAL Albuterol (DUOneb) 1 udvial [id number] IH 09/25/24 10:00 09/26/24 15:22 DC 09/26/24 11:17 1 UDVIAL Albuterol (DUOneb) 1 udvial [id number] PRN IH WHEEZING 09/26/24 15:30 10/08/24 08:49 DC Aminocaproic Acid 51337 mg/Sodium Chloride 310 ml @ 25 mls/hr AD IV 10/03/24 13:00 10/03/24 13:03 DC Aminocaproic Acid 85312 mg/Sodium Chloride 480 ml @ 0 mls/hr AD PRN IV BLEEDING CONTROL 10/03/24 10:00 11/02/24 09:59 Aspirin (Aspirin 81mg Ec Tab) 81 mg DAILY PO 09/22/24 09:00 10/22/24 08:59 10/08/24 07:59 81 MG Atorvastatin Calcium (LIPItor 20MG) 20 mg HS PO 09/23/24 21:00 09/27/24 10:38 DC 09/26/24 20:36 20 MG Atorvastatin Calcium (LIPItor 40MG) 40 mg HS PO 09/22/24 21:00 09/22/24 20:17 DC Atorvastatin Calcium (LIPItor 40MG) 40 mg HS PO 09/30/24 21:00 10/30/24 20:59 10/08/24 20:29 40 MG Atorvastatin Calcium (LIPItor 40MG) 40 mg HS PO 10/03/24 21:00 10/03/24 12:58 DC Azithromycin 250 ml @ 250 mls/hr Q24H IVPB 09/21/24 18:00 09/21/24 18:14 DC Calcium Carbonate (Oyster Shell Ca 500mg Tab) 1,000 mg TID PO 09/30/24 14:00 10/07/24 00:52 DC 10/06/24 19:50 1,000 MG Calcium Carbonate (Oyster Shell Ca 500mg Tab) 1,000 mg TIDMEALS PO 10/07/24 08:00 10/30/24 13:59 10/08/24 17:53 1,000 MG Calcium Gluconate 1 gm/Sodium Chloride 60 ml @ 200 mls/hr AD PRN IV HYPOCALCEMIA 10/03/24 13:00 11/02/24 12:59 10/05/24 11:32 200 MLS/HR Calcium Gluconate 1 gm/Sodium Chloride 100 ml @ 0 mls/hr PROTOCOL IV 10/01/24 17:00 10/03/24 12:53 DC Cefazolin Sodium (Ancef) 2 gm ONCALL IVPB 10/02/24 10:30 10/03/24 13:09 DC Cefazolin Sodium (Ancef) 2 gm Q8H IVPB 10/03/24 18:00 10/04/24 10:01 DC 10/04/24 09:46 2 GM Cefepime HCl (MAXipime 1 GM vial) 1 gm Q24H IVPB 09/23/24 08:30 09/26/24 11:14 DC 09/25/24 08:36 1 GM Chlordiazepoxide HCl (LIBrium 25 MG CAP) 25 mg Q2H PRN PO ALCOHOL WITHDRAWAL PROTOCOL 09/22/24 20:30 09/29/24 20:29 DC 09/28/24 23:59 25 MG Chlordiazepoxide HCl (LIBrium 25 MG CAP) 50 mg Q1H PRN PO ALCOHOL WITHDRAWAL PROTOCOL 09/22/24 20:30 09/29/24 20:29 DC Clopidogrel Bisulfate (plaVIX 75MG) 75 mg DAILY PO 09/24/24 09:00 09/26/24 07:14 DC 09/25/24 08:38 75 MG Clopidogrel Bisulfate (plaVIX 75MG) 75 mg DAILY PO 09/30/24 09:00 10/01/24 08:26 DC 09/30/24 08:49 75 MG Dexmedetomidine/ Sodium Chloride (PRECEdex 400MCG/ 100ML-NS) 400 mcg PROTOCOL IV 10/03/24 13:00 10/04/24 12:59 DC Dextrose (D50w) 50 ml AD PRN IV HYPOGLYCEMIA PROTOCOL 09/30/24 17:30 10/01/24 08:25 DC Dextrose (D50w) 50 ml AD PRN IV HYPOGLYCEMIA PROTOCOL 10/01/24 08:30 10/31/24 08:29 10/05/24 05:14 50 ML Dextrose (D50w) 50 ml AD PRN IV HYPOGLYCEMIA PROTOCOL 10/03/24 13:00 10/03/24 13:04 DC Dextrose/Sodium Chloride 1,000 ml @ 0 mls/hr AD IV 09/22/24 00:00 09/23/24 21:23 DC 09/22/24 09:49 150 MLS/HR Docusate Sodium (COLace 100MG CAP) 100 mg BID PO 10/03/24 21:00 11/02/24 20:59 10/08/24 20:29 100 MG Doxycycline Hyclate (Doxycycline Hyclate) 100 mg BID PO 09/21/24 21:00 09/30/24 23:59 DC 09/30/24 20:53 100 MG Empaglifozin (Jardiance 10mg) 10 mg DAILY PO 10/09/24 09:00 11/08/24 08:59 Epinephrine HCl 10 mg/Sodium Chloride 250 ml @ 0 mls/hr AD PRN IV TITRATE 10/03/24 10:00 11/02/24 09:59 10/04/24 06:35 7.4 MLS/HR Epinephrine HCl 10 mg/Sodium Chloride 250 ml @ 0 mls/hr AD PRN IV POST-OP CARDIOVASCULAR ORDERS 10/03/24 13:00 10/03/24 13:03 DC Epoetin Moses-epbx (Retacrit) 10,000 unit QMOWEFR SQ 10/01/24 09:00 10/06/24 15:12 DC 10/01/24 15:34 10,000 UNIT Epoetin Moses-epbx (Retacrit) 10,000 unit QTUTHSA SQ 10/07/24 09:00 10/07/24 13:20 DC Epoetin Moses-epbx (Retacrit) 10,000 unit QTUTHSA SQ 10/07/24 16:00 11/06/24 15:59 10/07/24 18:21 10,000 UNIT Famotidine (Pepcid 20mg Vial) 10 mg DAILY IV 09/22/24 09:00 09/27/24 10:35 DC 09/27/24 09:09 10 MG Famotidine (Pepcid 20mg Vial) 20 mg Q48H IV 10/03/24 21:00 11/02/24 20:59 10/07/24 20:54 20 MG Famotidine (Pepcid 20mg Tab) 10 mg Q48H PO 09/21/24 19:30 09/21/24 20:00 DC Ferrous Sulfate (Ferrous Sulfate) 325 mg DAILY PO 09/23/24 09:00 10/23/24 08:59 10/08/24 08:00 325 MG Fish Oil (Fish Oil 1000 Mg/Cap) 2,000 mg BID PO 09/22/24 21:00 10/03/24 12:53 DC 10/02/24 20:38 2,000 MG Fluconazole/ Sodium Chloride (DiFLUCan 200 MG/ NS 100 ML) 200 mg Q24H IV 09/25/24 16:00 09/27/24 10:36 DC 09/26/24 14:38 200 MG Folic Acid (FOLic ACID 1 MG TABLET) 1 mg DAILY PO 10/08/24 09:00 11/07/24 08:59 10/08/24 08:00 1 MG Furosemide (LASix 40MG VIAL) 80 mg Q12H IV 09/22/24 21:00 09/26/24 15:22 DC 09/26/24 13:20 80 MG Gabapentin (NEURontin 100 mg CAP) 100 mg DAILY PO 10/01/24 09:00 10/24/24 20:59 10/08/24 08:00 100 MG Gabapentin (NEURontin 100 mg CAP) 100 mg TID PO 09/24/24 21:00 09/30/24 17:37 DC 09/30/24 14:07 100 MG Glucagon (Glucagon 1mg Kit) 1 mg AD PRN IM HYPOGLYCEMIA PROTOCOL 09/30/24 17:30 10/01/24 08:25 DC Glucagon (Glucagon 1mg Kit) 1 mg AD PRN IM HYPOGLYCEMIA PROTOCOL 10/01/24 08:30 10/31/24 08:29 Glucagon (Glucagon 1mg Kit) 1 mg AD PRN IM HYPOGLYCEMIA PROTOCOL 10/03/24 13:00 10/03/24 13:04 DC Guaifenesin/ Dextromethorphan (RobiTUSSin DM 200/20MG 10ML) 10 ml Q4H PRN PO COUGH 09/21/24 19:30 10/03/24 12:53 DC 09/23/24 22:06 10 ML Guaifenesin/ Dextromethorphan (RobiTUSSin DM 200/20MG 10ML) 15 ml Q4H PRN PO COUGH 10/06/24 01:30 11/05/24 01:29 10/06/24 01:35 15 ML Heparin Sodium (Porcine) (HEParin 5,000 UNIT VIAL) *calculation based on ACTUAL B... AD PRN IV HEPARIN PROTOCOL 09/21/24 19:30 09/26/24 07:14 DC Heparin Sodium (Porcine) (HEParin 5,000 UNIT VIAL) 10,000 unit AD IRRIG 09/27/24 14:00 10/27/24 13:59 10/01/24 17:18 10,000 UNIT Heparin Sodium/ Dextrose 250 ml @ 0 mls/hr Q6H IV 09/21/24 19:30 09/26/24 18:36 DC 09/25/24 04:13 14.7 MLS/HR Hydralazine HCl (APRESOLine 20MG INJ) 10 mg Q6H PRN IV ADMINISTER FOR SBP > 160 10/01/24 16:30 10/03/24 12:53 DC Insulin Glargine (LANtus 100 UNITS/ML 10 ML VIAL) 10 units BID@0730,2100 SQ 09/22/24 21:00 09/26/24 11:15 DC 09/25/24 20:44 10 UNITS Insulin Glargine (LANtus 100 UNITS/ML 10 ML VIAL) 10 units HS SQ 09/30/24 21:00 09/30/24 17:26 DC Insulin Glargine (LANtus 100 UNITS/ML 10 ML VIAL) 15 units BID@0730,2100 SQ 09/26/24 21:00 09/30/24 17:13 DC 09/30/24 07:03 15 UNITS Insulin Glargine (LANtus 100 UNITS/ML 10 ML VIAL) 15 units DAILY SQ 10/08/24 09:00 10/09/24 07:34 DC 10/08/24 08:11 15 UNITS Insulin Glargine (LANtus 100 UNITS/ML 10 ML VIAL) 20 units AM SQ 10/01/24 09:00 09/30/24 17:26 DC Insulin Glargine (LANtus 100 UNITS/ML 10 ML VIAL) 20 units DAILY SQ 10/06/24 09:00 10/07/24 12:41 DC 10/06/24 09:16 20 UNITS Insulin Glargine (LANtus 100 UNITS/ML 10 ML VIAL) 25 units DAILY SQ 10/09/24 09:00 11/08/24 08:59 Insulin Glargine (LANtus 100 UNITS/ML 10 ML VIAL) 30 units HS SQ 09/30/24 21:00 10/02/24 07:19 DC 10/01/24 19:54 30 UNITS Insulin Glargine (LANtus 100 UNITS/ML 10 ML VIAL) 50 units BID SQ 10/02/24 21:00 10/03/24 12:53 DC 10/03/24 09:02 50 UNITS Insulin Glargine (LANtus 100 UNITS/ML 10 ML VIAL) 50 units DAILY SQ 10/02/24 07:30 10/02/24 16:53 DC 10/02/24 09:41 50 UNITS Insulin Human Lispro (HumaLOG LISpro 100 UNIT/ML 3ML) 7 unit TIDAC SQ 10/01/24 07:30 10/01/24 17:01 DC 10/01/24 16:22 7 UNIT Insulin Human Lispro (HumaLOG LISpro 100 UNIT/ML 3ML) 10 unit TIDAC SQ 10/01/24 17:00 10/01/24 19:41 DC Insulin Human Lispro (HumaLOG LISpro 100 UNIT/ML 3ML) 15 unit TIDAC SQ 10/02/24 07:30 10/02/24 07:20 DC 10/02/24 07:01 15 UNIT Insulin Human Lispro (HumaLOG LISpro 100 UNIT/ML 3ML) 20 unit TIDAC SQ 10/02/24 11:30 10/02/24 16:53 DC 10/02/24 11:48 20 UNIT Insulin Human Lispro (HumaLOG LISpro 100 UNIT/ML 3ML) 25 unit TIDAC SQ 10/02/24 17:00 10/03/24 12:53 DC 10/02/24 17:17 25 UNIT Insulin Human Regular (humuLIN R 100 UNIT/ML 3ML) 5 unit TIDAC SQ 10/06/24 07:30 10/06/24 19:15 DC 10/06/24 17:10 5 UNIT Insulin Human Regular (humuLIN R 100 UNIT/ML 3ML) 5 unit TIDAC SQ 10/07/24 17:00 10/08/24 05:46 DC 10/07/24 18:24 5 UNIT Insulin Human Regular (humuLIN R 100 UNIT/ML 3ML) 8 unit TIDAC SQ 10/08/24 07:30 10/08/24 12:41 DC 10/08/24 06:47 8 UNIT Insulin Human Regular (humuLIN R 100 UNIT/ML 3ML) 10 unit TIDAC SQ 10/07/24 07:30 10/07/24 12:41 DC Insulin Human Regular (humuLIN R 100 UNIT/ML 3ML) 12 unit TIDAC SQ 10/08/24 17:00 10/08/24 20:17 DC 10/08/24 18:03 12 UNIT Insulin Human Regular (humuLIN R 100 UNIT/ML 3ML) 15 unit TIDAC SQ 10/09/24 07:30 11/08/24 07:29 Insulin Human Regular (humuLIN R 100 UNIT/ML 3ML) INSULIN SLIDING SCAL... ACHS SQ 09/24/24 07:30 10/03/24 12:53 DC 10/03/24 05:48 10 UNIT Insulin Human Regular (humuLIN R 100 UNIT/ML 3ML) INSULIN SLIDING SCAL... ACHS SQ 10/06/24 07:30 10/09/24 00:14 DC 10/08/24 20:41 14 UNIT Insulin Human Regular (humuLIN R 100 UNIT/ML 3ML) INSULIN SLIDING SCAL... ACHS SQ 10/05/24 16:30 10/06/24 06:12 DC Insulin Human Regular (humuLIN R 100 UNIT/ML 3ML) INSULIN SLIDING SCAL... Q4H4 SQ 10/09/24 00:15 11/08/24 00:14 10/09/24 06:20 6 UNIT Insulin Human Regular 100 unit/ Sodium Chloride 100 ml @ 0 mls/hr AD IV 10/03/24 13:00 10/05/24 12:59 DC 10/03/24 17:38 2 MLS/HR Insulin Human Regular 100 unit/ Sodium Chloride 101 ml @ 0 mls/hr PROTOCOL IV 09/21/24 20:00 09/23/24 21:20 DC 09/21/24 21:01 9.8 MLS/HR Insulin Human Regular 100 unit/ Sodium Chloride 101 ml @ 0 mls/hr PROTOCOL IV 09/22/24 00:00 09/22/24 00:03 DC Insulin Human Regular 100 unit/ Sodium Chloride 101 ml @ 0 mls/hr PROTOCOL IV 09/26/24 18:30 09/27/24 10:25 DC 09/26/24 18:36 10 MLS/HR Ipratropium [place] (AtrovENT UD) 0.5 MG Q6H PRN IH SHORTNESS OF BREATH 10/08/24 09:00 11/07/24 08:59 Lactulose (Constulose 20gm/ 30ml Udcup) 20 gm BID PRN PO CONSTIPATION 10/03/24 13:00 11/02/24 12:59 Losartan Potassium (CozAAR 25MG TAB) 25 mg DAILY PO 10/09/24 09:00 11/08/24 08:59 Magnesium Hydroxide (Milk Of Magnesium 30ml) 30 ml DAILY PRN PO CONSTIPATION 10/03/24 13:00 11/02/24 12:59 Magnesium Sulfate 50 ml @ 12.5 mls/hr AD PRN IV MAG LEVEL LESS THAN 2.0 10/03/24 13:00 11/02/24 12:59 10/03/24 17:21 12.5 MLS/HR Magnesium Sulfate 50 ml @ 0 mls/hr PROTOCOL IV 09/22/24 00:00 09/23/24 21:23 DC Magnesium Sulfate 50 ml @ 0 mls/hr PROTOCOL IV 09/26/24 18:30 09/27/24 10:25 DC Magnesium Sulfate 50 ml @ 0 mls/hr PROTOCOL PRN IV OTH 09/22/24 00:00 09/22/24 00:04 DC 09/21/24 23:52 25 MLS/HR Mannitol 245 ml @ 0 mls/hr AD IV 09/22/24 00:30 09/22/24 20:17 DC Mannitol 500 ml @ 0 mls/hr AD IV 09/22/24 00:30 09/22/24 14:33 DC Mannitol (Osmitrol 20% 250ml Bag) 49 gm AD IV 09/22/24 00:00 09/22/24 00:28 DC Methylprednisolone Sodium Succinate (Solu-medROL 40MG) 40 mg BID IVP 09/22/24 09:00 09/27/24 10:35 DC 09/26/24 20:37 40 MG Metoprolol Succinate (TopROL XL) 25 mg BID PO 09/26/24 09:00 10/03/24 12:53 DC 10/03/24 08:55 25 MG Metoprolol Succinate (TopROL XL) 50 mg BID PO 09/24/24 21:00 09/26/24 07:14 DC 09/24/24 19:45 50 MG Metoprolol Tartrate (loprESSOR) 12.5 mg BID PO 09/22/24 21:00 09/24/24 16:38 DC 09/24/24 12:07 12.5 MG Metoprolol Tartrate (loprESSOR) 12.5 mg BID PO 10/06/24 09:00 10/08/24 08:34 DC 10/08/24 08:00 12.5 MG Metoprolol Tartrate (loprESSOR) 25 mg BID PO 10/08/24 09:00 11/07/24 08:59 10/08/24 20:29 25 MG Miscellaneous Medication (Folic Acid/ Vitamin B Comp W-C ([place] Tablet)) 1 tab DAILY PO 09/23/24 09:00 09/22/24 15:56 DC Morphine Sulfate (morPHINE 2MG SYG) 0.5 mg Q2H PRN IV MODERATE PAIN (4-6) 10/03/24 13:00 10/04/24 10:49 DC 10/03/24 20:56 0.5 MG Morphine Sulfate (morPHINE 2MG SYG) 1 mg Q2H PRN IV SEVERE PAIN (7-10) 10/03/24 13:00 10/04/24 10:49 DC Morphine Sulfate (morPHINE 2MG SYG) 2 mg Q4H PRN IVP SEVERE PAIN (7-10) 09/26/24 01:30 10/01/24 04:29 DC Multivitamins Therapeutic (Multivitamin Tablet) 1 tab DAILY PO 09/23/24 09:00 10/23/24 08:59 10/08/24 08:00 1 TAB Nifedipine (adALAT 30MG) 60 mg DAILY PO 09/23/24 09:00 09/28/24 12:01 DC 09/25/24 08:37 60 MG Nitroglycerin (Nitroglycerin 1gm Oint) 0.5 inch Q8H TD 09/21/24 19:30 09/27/24 10:34 DC 09/25/24 12:44 0.5 INCH Nitroglycerin/ Dextrose 0 ml @ 0 mls/hr AD IV 10/03/24 13:00 10/06/24 12:59 DC Norepinephrine 250 ml @ 0 mls/hr AD PRN IV DIRECTED 09/26/24 01:30 09/27/24 10:34 DC 09/26/24 01:40 0 MLS/HR Norepinephrine Bitartrate 250 ml @ 0 mls/hr AD PRN IV TITRATE 10/03/24 10:00 11/02/24 09:59 Norepinephrine Bitartrate 8 mg/ Dextrose 250 ml @ 0 mls/hr AD PRN IV POST-OP CARDIOVASCULAR ORDERS 10/03/24 13:00 10/03/24 13:03 DC Ondansetron HCl (zoFRAN 4MG INJ) 4 mg Q6H PRN IV NAUSEA/VOMITING 10/03/24 13:00 11/02/24 12:59 10/04/24 16:35 4 MG Ondansetron HCl (zoFRAN 4MG INJ) 4 mg Q6H PRN IVP NAUSEA/VOMITING 09/26/24 01:30 10/03/24 12:53 DC 09/27/24 08:51 4 MG Oseltamivir Phosphate (Tamiflu) 75 mg DAILY PO 09/22/24 09:00 09/23/24 13:29 DC 09/23/24 08:38 75 MG Oseltamivir Phosphate (Tamiflu) 75 mg Q24H PO 09/26/24 17:00 09/27/24 17:01 DC 09/27/24 18:04 75 MG Oseltamivir Phosphate (Tamiflu) 75 mg QTUTHSA[DIALYSIS] PO 09/23/24 16:00 09/23/24 17:04 DC Oseltamivir Phosphate (Tamiflu) 75 mg QTUTHSA[DIALYSIS] PO 09/23/24 22:00 09/26/24 16:32 DC 09/25/24 16:09 75 MG Pantoprazole Sodium (PROTonix 40MG INJ) 40 mg BID IVP 09/27/24 21:00 10/03/24 12:53 DC 10/03/24 08:55 40 MG Pharmacy Profile Note (Pharmacy Communication) 1 each ONCE MISC 09/23/24 13:00 09/23/24 13:25 DC Pharmacy Profile Note (Pharmacy Communication) 1 each ONCE MISC 09/23/24 21:30 09/24/24 07:08 DC Pharmacy Profile Note (Pharmacy Communication) 1 each PROTOCOL PRN MISC ETOH Withdrawal Score changes 09/22/24 20:30 09/29/24 20:29 DC Piperacillin Sod/ Tazobactam Sod 50 ml @ 12.5 mls/hr Q12H IV 09/21/24 21:00 09/23/24 08:06 DC 09/22/24 20:43 12.5 MLS/HR Piperacillin Sod/ Tazobactam Sod (Zosyn 3.375gm+NS 50ml) 3.375 gm Q12H IV 09/26/24 11:30 10/06/24 08:29 DC 10/05/24 23:22 3.375 GM Potassium Chloride 20 meq/ Sodium Chloride 1,010 ml @ 0 mls/hr PROTOCOL IV 09/22/24 00:00 09/23/24 21:23 DC Potassium Chloride/Dextrose/ Sod Cl 1,000 ml @ 0 mls/hr AD IV 09/22/24 00:00 09/23/24 21:23 DC Potassium Phosphate 250 ml @ 42 mls/hr AD PRN IV LOW PHOS LEVEL 10/03/24 13:00 11/02/24 12:59 Potassium Chloride 100 ml @ 100 mls/hr AD PRN IV HYPOKALEMIA 10/03/24 13:00 11/02/24 12:59 Prednisone (deltaSONE/ oraSONE 20MG TAB) 20 mg DAILY PO 09/28/24 09:00 10/01/24 08:59 DC 09/30/24 08:50 20 MG Propofol 100 ml @ 0 mls/hr AD PRN IV SEDATION 10/03/24 13:00 10/07/24 12:59 DC Sodium Bicarbonate (Sodium Bicarbonate) 650 mg TID PO 09/24/24 09:00 09/27/24 10:34 DC 09/26/24 20:36 650 MG Sodium Bicarbonate (Sodium Bicarb 50meq 50ml Vial) 50 meq AD PRN IV OTHER[SEE DOSING INSTRUCTIONS] 10/03/24 13:00 10/06/24 12:59 DC 10/03/24 20:57 50 MEQ Sodium Chloride 250 ml @ 0 mls/hr Q0M IV 09/25/24 23:00 09/27/24 10:34 DC Sodium Chloride 500 ml @ 0 mls/hr AD IV 10/03/24 13:00 11/02/24 12:59 Sodium Chloride 1,000 ml @ 0 mls/hr ONCE IV 09/23/24 19:30 09/27/24 13:51 DC 09/26/24 12:15 1,000 MLS/HR Sodium Chloride 1,000 ml @ 0 mls/hr ONCE IV 09/27/24 14:30 09/27/24 13:51 DC Sodium Chloride 1,000 ml @ 0 mls/hr ONCE IV 09/27/24 15:00 10/27/24 14:59 10/07/24 09:59 1,000 MLS/HR Sodium Chloride 1,000 ml @ 10 mls/hr ONCE IV 10/03/24 13:00 10/04/24 12:59 DC Sodium Chloride 1,000 ml @ 100 mls/hr Q10H IV 09/21/24 19:30 09/27/24 10:34 DC 09/23/24 12:53 100 MLS/HR Sodium Chloride 1,000 ml @ 200 mls/hr PROTOCOL IV 09/22/24 00:00 09/23/24 21:23 DC Sodium Chloride (NS Flush 10ml) 10 ml Q8H PRN IVP IV LINE FLUSH 10/03/24 13:00 11/02/24 12:59 Thiamine HCl 100 mg/Folic Acid 1 mg/Multivitamins/ Minerals 10 ml/ Sodium Chloride 1,011.2 ml @ 100 mls/ hr Q24H IV 09/22/24 20:30 09/25/24 06:37 DC 09/22/24 20:43 100 MLS/HR Tramadol HCl (UltRAM) 25 mg Q6H PRN PO MODERATE PAIN (4-6) 10/03/24 13:00 10/08/24 12:59 DC Tramadol HCl (UltRAM) 50 mg Q6H PRN PO SEVERE PAIN (7-10) 10/03/24 13:00 10/08/24 12:59 DC 10/08/24 08:01 50 MG Vancomycin HCl 250 ml @ 125 mls/hr Q72H IV 09/22/24 20:30 09/23/24 08:04 DC 09/22/24 20:48 125 MLS/HR Vancomycin HCl (Vancomycin 500mg+NS 100ml Ivpb) 1,000 mg DAILY08 IV 09/23/24 08:00 09/22/24 20:26 DC Vancomycin HCl (Vancomycin 750mg) 750 mg MWFPHD IVPB 09/26/24 16:00 10/03/24 23:29 DC Vancomycin HCl (Vancomycin 750mg) 750 mg Q24H IVPB 09/23/24 23:30 09/25/24 06:26 DC 09/24/24 22:43 750 MG Vasopressin 20 units/Sodium Chloride 100 ml @ 0 mls/hr PROTOCOL IV 10/03/24 19:30 11/02/24 19:29 10/04/24 06:34 9 MLS/HR Vitamin B Complex (Vitamin B-12) 1,000 mcg DAILY PO 10/08/24 09:00 11/07/24 08:59 10/08/24 08:02 1,000 MCG Vitamin B Complex/ Vit C/Folic Acid (Nephrovite Tablet) 1 cap DAILY PO 09/23/24 09:00 10/23/24 08:59 10/08/24 08:00 1 CAP DIAGNOSTICS / RADIOLOGY: [ ] ASSESSMENT: Hyperosmolar Hyperglycemic Syndrome POA, resolved NSTEMI POA Influenza bronchopneumonia with sepsis POA, resolving Acute Hypoxemic Respiratory Failure POA Acute on chronic renal failure with concern for ATN POA Metabolic acidosis POA Lactic acidosis POA CKD stage 4 POA Uncontrolled Diabetes POA Protein Calorie malnutrition POA PLAN: POD [address] Page PermCath placement in the morning Hemodialysis as per nephrology recommendations Dr. Hinton recommendations on thrombocytopenia - pheresis platelets 6 minute walk test and physical therapy Iron profile and APR labs Cardiology recommendations Continue to replace electrolytes IV protocol Continue the patient on long-acting as well as insulin sliding scale Follow a.m. labs GI and DVT prophylaxis ATTESTATION BY PHYSICIAN I have seen and examined the patient. I reviewed the documentation, medical decision making, and treatment plan as noted by the resident provider above. I agree with the findings and plan of care. Dieudonne Farley MD, NIHITHA MD Oct 09, 2024 14:27
--- NOTE | 2024-10-09 16:07 | DS ---
Discharge Summary Hospital Course Summary: is a 49-year-old male with a history of CKD not on hemodialysis, diabetes, hypertension, hyperlipidemia and obesity who initially presented with a week-long history of cough producing pinkish thick phlegm, chest congestion, vomiting and chest pain from persistent coughing, along with lower extremity edema, shortness of breath and nonbloody diarrhea. In the ED he was noted to have bilateral pneumonia, right greater than left, significant metabolic derangements including hypoglycemia with glucose of 876, SAURABH-creatinine 8.2, GFR 7 and electrolyte imbalances, with his ECG showing sinus tachycardia heart rate 121 probable left atrial enlargement repolarization abnormal suggest ischemia diffuse leads ST-elevation consider anterior injury, markedly elevated troponin 5531, STEMI alert was activated as per ER MD. He was initially managed with IV fluids, Tamiflu, broad-spectrum antibiotics including vancomycin and fluconazole, IV insulin drip for influenza pneumonia and HHS respectively. His sputum cultures came back for Dunia and was treated with Diflucan. Mitesh catheter was placed and he was started on dialysis. After he achieved euvolemia, coronary angiogram revealed critical 90% stenosis in both LAD and left circumflex arteries. 2D echo showed mildly dilated left atrium, dilated right atrium and ventricle, moderate concentric hypertrophy of left ventricle, severely hypokinetic inferior wall and LVEF 35-40% with mild aortic stenosis, trace aortic regurgitation, trace mitral regurgitation, trace pericardial effusion. Cardiac stent was attempted but he had to undergo CABG with an uneventful postoperative course. Endocrinology was consulted due to his pe rsistent hyperglycemia. As per case management, patient was approved for home oxygen and dialysis chair outpatient and was approved for Sunday dialysis at [facility]. Today, PermCath was placed. As per the nurse, patient has been cleared for discharge by Cardiology, Nephrology and pulmonology. There were no acute events overnight, he is alert awake and oriented x4. He is not in any distress, he denies chest pain or shortness of breath or dizziness or palpitations or diaphoresis or abdominal pain or pain at surgical site. His lower extremity edema has improved.. All questions were answered and patient was educated on post CABG and dialysis precautions. He is aware of all the new medications that were prescribed and directed him to take insulin 70-30 40 units before breakfast and 20 units before dinner as per degree clerk advise. He will be discharged to home to follow up with his PCP in 2-3 days and with the school adjustment counselor, oracle brm developer ,cardiovascular surgeon and degree clerk in 1-2 weeks. System Consultant(s): Critical care Dr. Dong Embryology Teacher Dr. Armenta Director Of Nuclear Medicine Dr. Gonzales CT surgeon Dr. Szymanski Power Plant Engineer Dr. Patel Procedure(s): DATE OF PROCEDURE: 10/03/2024 PREOPERATIVE DIAGNOSIS: Three-system coronary artery disease. POSTOPERATIVE DIAGNOSIS: Three-system coronary artery disease. PROCEDURES PERFORMED: * Off-pump coronary artery bypass grafting x 3 vessels (left internal mammary artery to the LAD, reverse saphenous vein graft from the aorta to the left posterolateral coronary artery, reverse saphenous vein graft from the aorta to the distal posterior descending artery). * Rigid sternal fixation with the MIRIAN sternal plating system. OPERATING SURGEON: Candida Szymanski MD DIRECTOR OF EDUCATION: Iris Gay ANESTHESIOLOGIST: Dr. Arciniega TYPE OF ANESTHESIA: General endotracheal anesthesia. BRIEF HISTORY: The patient is a 49-year-old unfortunate male who presented with chronic renal insufficiency. We initially were consulted for an AV fistula, however, the patient was down getting a CTA of his heart by his oracle brm developer when we first were consulted. They decided to wait for the workup of his heart before proceeding with AV fistula. He subsequently underwent a heart catheterization, which revealed three-system coronary artery disease and we were consulted this time for coronary artery bypass grafting. He presents now for surgical revascularization of his heart. FINDINGS: The patient had a good size left internal mammary artery and a relatively good size left anterior descending artery. The patient's obtuse marginal coronary arteries were extremely small including the left posterolateral coronary artery, which was the biggest vessel on the lateral wall. I decided to bypass it, although it was not much bigger than 1 mm. His posterior descending artery had disease in its midsection and had to be grafted distally. By PE, at the end of the case, his function did appear subjectively better. DESCRIPTION OF PROCEDURE: The patient was brought to the operating room and placed on the operating table in supine position. He was given general endotracheal anesthesia. After placed lines and catheters, his chest, abdomen and legs were prepped and draped in the usual sterile fashion. His left greater saphenous vein was harvested endoscopically and simultaneously, a median sternotomy was performed and left internal mammary artery was taken down. The patient was given 15,000 units of IV heparin. The left internal mammary artery was clamped with bulldog proximally and divided distally. The pericardium was opened in the midline and the mid LAD was stabilized with Acrobat epicardial retractor. A 5-0 Prolene snare was placed proximal to target site, which was opened longitudinally. The distal end of left internal mammary artery was then anastomosed to the side of the LAD over a 1 mm shunt using a running 7-0 Prolene suture. Its pedicle was tacked to the epicardium with two 6-0 Prolene sutures. The bulldog clamp and snares released. The LAD was remainder of the procedure. The next target was the left posterolateral coronary artery. This received the distal end of a reverse saphenous vein graft. An end-to-side anastomosis was performed over 1 mm shunt using a running 7-0 Prolene suture. This vein graft was draped under left internal mammary artery and cut to appropriate length to reach the aorta. The final target was the distal posterior descending artery. This received the distal end of a second segment reverse saphenous vein graft. An end-to-side anastomosis was performed over a 1 mm shunt using a running 7-0 Prolene suture. This vein graft was draped along the right side of heart and cut to appropriate length to reach the aorta. A partial occlusion clamp was placed on the ascending aorta and two 4.0 mm aortotomy holes were made in the proximal ends of vein grafts, anastomosed to the side of aorta using running 6-0 Prolene sutures. The vein grafts were deaired. Partial occlusion clamp removed and all 3 systems were revascularized. The patient was given protamine. The mediastinum and left chest were drained with 24-Occitan Jeffrey drain, secured to the skin with silk sutures. The pericardium was loosely approximated to the heart and grafted with several separate Ethibond sutures. The sternum was then reapproximated with combination of stainless steel wires and the MIRIAN sternal plating system. In the presternal fashion, subcutaneous tissue was closed with running layers of Vicryl suture. The skin was closed with a running intracuticular Monocryl stitch. The wounds were then cleaned and dried, covered with bandages. The patient was undraped and taken and intubated to the ICU in critical but stable condition. TID: [id number] RECEIPT: [id number] cc: Dr. Gonzales, Iris Gay, BELLA FLETCHER MD(User) PATIENT: YG HAQUE MR#: [id number] : 03/24/1965 SEX: M AGE: 59 LOCATION: [facility] ORDER 48 STATUS: REG ER REPORT#: [id number] SERVICE 48 REASON: cp ORDERING PHYSICIAN: QUIQUE ARIAS PROCEDURE: CXR1VW - CHEST 1VW Exam Type: CHEST 1VW Clinical Information: cp Comparison: None Findings: The lungs are clear of infiltrates. The heart is normal in size. The bony and soft tissue structures of the chest are unremarkable. Impression: Clear lungs. DICTATED BY: ORTIZ BENITES MD DATE: 10/12/242130 ELECTRONICALLY SIGNED BY: ORTIZ BENITES MD DATE: 10/12/242132 REASON: s/p CABG ORDERING PHYSICIAN: CANDIDA SZYMANSKI MD PROCEDURE: CXR1VW - CHEST 1VW CHEST 1VW HISTORY: Post CABG COMPARISON: 10/07/2024 FINDINGS: A frontal projection of the chest was obtained. Mild bilateral pulmonary infiltrates are seen may be related to mild pulmonary vascular congestion with possible superimposed pneumonitis. Poststernotomy changes are seen. The heart is enlarged. Degenerative changes of the thoracolumbar spine are present. All the lines and tubes are again seen in place. No evidence of aortic calcification is seen. IMPRESSION: 1. Mild bilateral pulmonary infiltrates are seen may be related to mild pulmonary vascular congestion with possible superimposed pneumonitis. DICTATED BY: JENNIFER MESA MD DATE: 10/08/24 1313 REASON: s/p CABG ORDERING PHYSICIAN: CANDIDA SZYMANSKI MD PROCEDURE: CXR1VW - CHEST 1VW CHEST 1VW HISTORY: Post CABG COMPARISON: 10/06/2024 FINDINGS: A frontal projection of the chest was obtained. Mild bilateral pulmonary infiltrates are seen may be related to mild pulmonary vascular congestion with possible superimposed pneumonitis. Poststernotomy changes are seen. The heart is enlarged. Degenerative changes of the thoracolumbar spine are present. All the lines and tubes are again seen in place. No evidence of aortic calcification is seen. IMPRESSION: 1. Mild bilateral pulmonary infiltrates are seen may be related to mild pulmonary vascular congestion with possible superimposed pneumonitis. DICTATED BY: JENNIFER MESA MD DATE: 10/07/24 0834 REASON: s/p CABG ORDERING PHYSICIAN: CANDIDA SZYMANSKI MD PROCEDURE: CXR1VW - CHEST 1VW CHEST 1VW HISTORY: Post CABG COMPARISON: 10/05/2024 FINDINGS: A frontal projection of the chest was obtained. Mild bilateral pulmonary infiltrates are seen may be related to mild pulmonary vascular congestion with possible superimposed pneumonitis. Poststernotomy changes are seen. The heart is enlarged. Degenerative changes of the thoracolumbar spine are present. All the lines and tubes are again seen in place. No evidence of aortic calcification is seen. IMPRESSION: 1. Mild bilateral pulmonary infiltrates are seen may be related to mild pulmonary vascular congestion with possible superimposed pneumonitis. Mild interval worsening is seen. DICTATED BY: JENNIFER MESA MD DATE: 10/06/24 0837 REASON: SOB ORDERING PHYSICIAN: CANDIDA SZYMANSKI MD PROCEDURE: CXR1VW - CHEST 1VW FRONTAL CHEST RADIOGRAPH INDICATION: SOB COMPARISON: 10/04/2024 FINDINGS/IMPRESSION: laboratory monitor leads overlie the field of view. Median sternotomy wires as well as fixation plates and screws are in appropriate alignment. Defibrillator patch has been removed. Stable Dewey-Saba catheter and pleural mediastinal drainage catheters. Stable heart size and residual mild central pulmonary vascular congestion. Mild bilateral perihilar atelectasis and suspect trace left pleural fluid with subjacent subsegmental atelectasis, but no evidence for pneumothorax. DICTATED BY: AGUS MC MD DATE: 10/05/24 1020 REASON: s/p CABG ORDERING PHYSICIAN: CANDIDA SZYMANSKI MD PROCEDURE: CXR1VW - CHEST 1VW CHEST 1VW CLINICAL HISTORY: s/p CABG COMPARISON: 10/13/2024 TECHNIQUE: Single view of the chest was obtained. FINDINGS: There has been interval extubation. The remaining supporting lines and tubes are stable. There is mild pulmonary edema or congestive failure. There is worsening retrocardiac left lower lobe increased opacification. The cardiomediastinal silhouette and bony structures stable. IMPRESSION: Slightly worsened airspace disease status post extubation. DICTATED BY: HEIDI VERMA DO DATE: 10/04/24 1319 REASON: preop CABG ORDERING PHYSICIAN: CANDIDA SZYMANSKI MD PROCEDURE: CXR1VW - CHEST 1VW Exam Type: CHEST 1VW Clinical Information: preop CABG Comparison: None Findings: Right permacath line is noted with tip at the distal superior vena caval level. The lungs are clear of infiltrates. The heart is normal in size. The bony and soft tissue structures of the chest are unremarkable. Impression: Clear lungs. DICTATED BY: ORTIZ BENITES MD DATE: 10/03/24 0838 REASON: sob ORDERING PHYSICIAN: MARIELOS VALLEJO PROCEDURE: CXR1VW - CHEST 1VW Exam Type: CHEST 1VW Clinical Information: sob Comparison: None Findings: Right permacath line is noted with tip at the distal superior vena caval level. There is cardiomegaly. There is prominence of the vascular markings consistent with pulmonary venous congestion. IMPRESSION: Findings consistent with pulmonary venous congestion. DICTATED BY: ORTIZ BENITES MD DATE: 10/01/24 1905 REASON: preop CABG ORDERING PHYSICIAN: CANDIDA SZYMANSKI MD PROCEDURE: CAROTID - US CAROTID DUPLEX Carotid Duplex and color-flow Doppler bilateral History: preop CABG Comparison: None Findings: No significant plaque is identified on either side. Left Internal Carotid Artery Peak Systolic Velocity (PSV), Left Internal Carotid to Common Carotid Artery peak systolic velocity ratio, Right Internal Carotid Artery Peak Systolic Velocity (PSV) and Right Internal Carotid to Common Carotid Artery peak systolic velocity ratio, are all within normal limits. External carotid artery velocities normal bilaterally. Bilateral vertebral arteries show antegrade flow. Impression: Normal exam. NASCET CRITERIA. The degree of internal carotid artery stenosis is based on NASCET criteria. Normal is no stenosis. Mild is less than 50% stenosis. Moderate is 50-69% stenosis. Severe is 70% to 99% stenosis. Total occlusion is no detectable patent lumen. DICTATED BY: ORTIZ BENITES MD DATE: 10/01/24 1621 REASON: nstemi ORDERING PHYSICIAN: ARIELA GONZALES MD PROCEDURE: CTCAWC - CT CARDIAC ANGIO W/CONT. CCTA CT OF THE CHEST WITH CONTRAST- CT Cardiac Angio co-interpretation This is done as part of the CT cardiac angiogram study. The interpretation of the coronary arteries will be done by oracle brm developer in a separate report. History: over-read Comparison: none CT Dose Index (CTDI): 77.90 mGy Dose Length Product (DLP): 493.40 total mGy PROTOCOL: Examination is done at 2.5 millimeter volumetric acquisition after contrast administration with Isovue 370, 100 cc IV, without complications. Photography is done at 5 millimeter thick intervals for the thorax. The examination begins above the heart and therefore the lung apices are incompletely included. The rest of the left lung is included but the right lung is only included up to its middle third. The periphery of the right lung is not included in the study. FINDINGS: The visualized part of the airway is preserved. The bony and soft tissue structures of the chest wall are unremarkable. The aorta is unremarkable. No mediastinal lymphadenopathy is seen. The appendix is distended and there are surrounding inflammatory changes and the possibility of acute appendicitis cannot be excluded. There is no evidence of pulmonary embolism in the visualized lung segments. The upper abdominal views are unremarkable. Impression: NoThe appendix is distended and there are surrounding inflammatory changes and the possibility of acute appendicitis cannot be excluded. DICTATED BY: ORTIZ BENITES MD DATE: 09/29/24 1453 REASON: assess liver cirrhosis and CBD dilation ORDERING PHYSICIAN: SHAVON ARAGON PROCEDURE: ABDOMEN - US ABDOMINAL COMPLETE US ABDOMINAL COMPLETE HISTORY: No additional history given. COMPARISON: None TECHNIQUE: Multiple transverse and longitudinal ultrasound images of the abdomen were obtained. FINDINGS: Abdominal aorta and inferior vena cava are unremarkable. The visualized portion of the pancreas is within normal limits. Portal vein is patent. Liver measures 17 cm. Liver is echogenic consistent with liver parenchymal disease. No gallstone is seen. Common duct measures 4 mm. No evidence of gallbladder wall thickening is seen. Both kidneys are seen. Right kidney measures 10.3 x 4.9 x 5 cm. Left kidney measures 10.3 x 6.4 x 3 cm. No hydronephrosis is seen of the both kidneys. Spleen measures 12 cm. The spleen is grossly unremarkable. IMPRESSION: 1. No gallstone or ductal dilatation is seen. 2. No hydronephrosis is seen. DICTATED BY: JENNIFER MESA MD DATE: 09/28/24 1528 REASON: hypoxic resp failure ORDERING PHYSICIAN: SHAVON ARAGON PROCEDURE: CXR1VW - CHEST 1VW CHEST 1VW REASON: hypoxic resp failure COMPARISON: 09/23/2024 FINDINGS: There are diffuse bilateral infiltrates which are unchanged. Dialysis catheter remains in place. There is no pneumothorax or other complication. There are no pleural effusions. IMPRESSION: 1. Extensive bilateral infiltrates unchanged. DICTATED BY: ARMANDO FAIR MD DATE: 09/24/24 1051 REASON: FVO ORDERING PHYSICIAN: FELIX BARBOSA NP PROCEDURE: ECHO [facility] - ECHO 2-D COMPLETE APPROVED REPORT EXAM: Two-dimensional and M-mode echocardiogram with Doppler and color Doppler. INDICATION ICD: Fluid volume overload 2D Dimensions RVDd 4.4 cm LVEF(%) 41.1 (>50%) LVED Vol(simp.) 176.0 mL IVSd 1.0 (0.7-1.1cm) FS(%) 20 % LVES Vol(simp.) 104.0 mL LVDd 5.4 (3.8-5.6cm) LA (2D) 4.1 (1.6-4.0cm) LVEF(%, simp.) 41 % PWd 1.4 (0.7-1.1cm) Ao Root(2D) 2.9 (2.0-3.7cm) LA ESV INDEX (4CH) 33.40 mL/m2 IVSs 1.2 cm LVOT diam 2.0 (1.8-2.4cm) LA ESV INDEX (2CH) 45.20 mL/m2 LVDs 4.3 (2.5-4.0cm) IVC diam 2.1 cm LA ESV INDEX (BP) 39.50 mL/m2 PWs 2.0 cm Deformation Strain Apical 4 -9.0 % Apical 2 -9.0 % Apical 3 -9.0 % Global Strain -9.0 % M-Mode Dimensions EPSS 1.7 cm LA (MM) 3.4 (1.6-4.0cm) Ao Root(MM) 3.3 (2.0-3.7cm) Aortic Valve AoV VTI 0.3 m Ao Mean GR 9.0 mmHg LVOT VTI 0.20 m STEPHANIE (VMAX) 1.9 cm2 STEPHANIE (VTI) 1.9 cm2 Mitral Valve MV E Vmax 149.3 cm/s DECEL Time 78 ms P 1/2 T 56 ms MVA (PHT) 3.9 cm2 TDI E/E' Medial 19.4 E/E' Lateral 11.8 Medial E' Peak V 7.70 cm/s Lateral E' Peak V 12.70 cm/s Tricuspid Valve RAP (EST) 8 mmHg RVSP 8.0 mmHg Left Ventricle The left ventricle is normal size. The inferior wall is severely hypokinetic. The other ibrahim are hypokinetic. Moderate concentric hypertrophy of the left ventricle is noted. Left ventricle systolic function is moderate to severely depressed, estimated LVEF 35 to 40%. E to E ratio is greater than 14, which is suggestive of increased left ventricle end-diastolic filling pressures. Right Ventricle The right ventricle is dilated. The right ventricular systolic function is normal. Atria The left atrium is mildly dilated, 40 mL/m. The right atrium is dilated. Aortic Valve Aortic valve is probably trileaflet. The leaflets are severely thickened and calcified. Trace aortic regurgitation. Mild aortic stenosis: Peak velocity 2.0 m/s, mean gradient 9 mmHg Mitral Valve Mild mitral annular calcification is noted. The leaflets are mild thickened and calcified. Trace mitral regurgitation. There is no mitral valve stenosis. Tricuspid Valve The tricuspid valve is normal in structure. Trace tricuspid regurgitation. RVSP is grossly normal, but is likely underestimated. Pulmonic Valve Pulmonic valve is not well visualized. Great Vessels The aortic root is normal in size. The IVC is normal in size and collapses <50% with inspiration. Pericardium Trace pericardial effusion. Other Information Quality : Technically difficult due to body habitus Conclusion The left atrium is mildly dilated, 40 mL/m. The right atrium is dilated. The right ventricle is dilated. Moderate concentric hypertrophy of the left ventricle is noted. The inferior wall is severely hypokinetic. The other ibrahim are hypokinetic. Left ventricle systolic function is moderate to severely depressed, estimated LVEF 35 to 40%. E to E ratio is greater than 14, which is suggestive of increased left ventricle end-diastolic filling pressures. Mild aortic stenosis: Peak velocity 2.0 m/s, mean gradient 9 mmHg (likely underestimated). Trace aortic regurgitation. Trace mitral regurgitation. Trace pericardial effusion. PASP is grossly normal, but is likely under estimated. Trace pericardial effusion. DICTATED BY: RONALD AGUAYO MD DATE: 09/23/24 0731 REASON: acute renal failure ORDERING PHYSICIAN: TERRANCE CHAN PROCEDURE: RENAL - US RENAL SONOGRAM US RENAL SONOGRAM REASON: acute renal failure COMPARISON: None TECHNIQUE: Renal and bladder sonogram was performed. FINDINGS: Right kidney is 11.3 x 4.9 x 4.7 cm, left is 11.5 x 5.5 x 4.4 cm. There is no mass, stone or hydronephrosis. Cortical thickness appears preserved. Echogenicity appears normal. The urinary bladder appears normal as well. IMPRESSION: 1. Normal renal and bladder sonogram. DICTATED BY: ARMANDO FAIR MD DATE: 09/22/241126 REASON: sob ORDERING PHYSICIAN: TERRANCE CHAN COURT SECURITY OFFICER PROCEDURE: CHEST WO - CT CHEST W/O CONTRAST CT CHEST WITHOUT CONTRAST INDICATION: Bilateral lung pneumonia TECHNIQUE: Routine axial images using 5 mm slice thickness were acquired from the lung apices to the bases without the administration of IV contrast.Coronal and sagittal reformatted images acquired for interpretation. CT was performed with one or more of the following dose reduction techniques: Automated exposure control, adjustment of the mA and/or kV according to patient size, or use of iterative reconstruction technique. COMPARISON: None FINDINGS: The heart size is normal. Coronary arterial wall calcific plaque noted. No pericardial effusion noted. Mild calcific plaque is present along the aortic arch and thoracic aortic ibrahim without aneurysmal dilation. The trachea and airways are patent. Coalescent "ground-glass" opacities with intermixed consolidation/nodularity noted throughout the bilateral lungs in a centrilobular distribution. No axillary, hilar, or mediastinal lymphadenopathy. No pleural effusion or pneumothorax identified. Limited views of the upper abdomen appear normal. Visible osseous structures are intact. IMPRESSION: Extensive bilateral lung pneumonia. Arteriosclerotic disease as described. DICTATED BY: AGUS MC MD DATE: 09/21/242025 REASON: cough, shortness of breath ORDERING PHYSICIAN: HEBER CABRERA NP PROCEDURE: CXR1VW - CHEST 1VW PORTABLE CHEST RADIOGRAPH INDICATION: cough, shortness of breath COMPARISON: 04/05/2024 FINDINGS: Heart size is normal. The pulmonary vascularity and eder appear normal. Extensive coalescent/consolidative bilateral mid to lower lung opacities, right greater than left. No significant pleural effusion noted. No pneumothorax detected. IMPRESSION: Extensive bilateral mid to lower lung pneumonia, right greater than left. DICTATED BY: AGUS MC MD DATE: 09/21/241899 RUN DATE: 09/28/24 [facility] [address] 1 RUN TIME: 1944 [address] [address], [place] [address] Department of Laboratories CLIA # [id number] Coding Support Specialist: Jordan Brower DO Specimen Report PATIENT: ADRIANA ABRAHAM ACCT: [id number] LOC: [facility] U: [id number] AGE/SX: 49/M ROOM: [facility] RE09/21/[address]: DIEUDONNE MÉNDEZ MD : 1975 BED: 1 DIS: STATUS: ADM IN TLOC: SPEC: [id number] MARIA INES: 09/26/24-170 STATUS: COMP REQ: [id number] RECD: 09/26/24-[address]: SHAVON ARAGON SOURCE: URINE CC ENTR: 09/26/24-[address]: DIEUDONNE MÉNDEZ MD SPDC: BRAYDON ARMENTA MD,SPENCER FLETCHER,BELLA SOLIS,SHENA GONZALES,ARIELA Casper MD ORDERED: URINE CULTURE Procedure Result Manjeet Date-Time ------ ------ URINE CULTURE Final 09/28/24-1943 REPORT URINE FINAL-NO GROWTH 36-48 HRS RUN DATE: 10/03/24 [facility] [address] 1 RUN TIME: [address] [address] Department of Laboratories CLIA # [id number] Coding Support Specialist: Jordan Brower DO Specimen Report -- PATIENT: ADRIANA ABRAHAM ACCT: [id number] LOC: 4A U: [id number] AGE/SX: 49/M ROOM: 431 RE09/21/[address]: DIEUDONNE MÉNDEZ MD : 1975 BED: 1 DIS: STATUS: ADM IN TLOC: SPEC: [id number] MARIA INES: 10/03/24 STATUS: COMP REQ: [id number] RECD: 10/03/[address]: CANDIDA SZYMANSKI MD SOURCE: NASAL ENTR: 10/02/24-[address]: DIEUDONNE MÉNDEZ MD SPDESC: BRAYDON ARMENTA MD,SPENCER PATEL,HENNA FLETCHER,BELLA SOLIS,SHENA GONZALES,ARIELA Casper MD ORDERED: MRSA BY PCR Procedure Result Manjeet Date-Time MRSA NASAL SCREEN-PCR Final 10/03/24-1226 MRL RESULT: NEGATIVE FOR MRSA TARGET DNA. @ [facility] Test Performed at: [facility] [address], [place], [place] Medical Digital Archivist: Candida Ortega D.O. RUN DATE: 09/29/24 [facility] PAGE 1 RUN TIME: [phone] [address], [place] [address] Department of Laboratories CLIA # [id number] Coding Support Specialist: Jordan Brower DO Specimen Report PATIENT: ADRIANA ABRAHAM ACCT: [id number] LOC: [facility] U: [id number] AGE/SX: 49/M ROOM: [facility] RE09/21/[address]: DIEUDONNE MÉNDEZ MD : 1975 BED: 1 DIS: STATUS: ADM IN TLOC: SPEC: [id number] MARIA INES: 09/26/24-1510 STATUS: COMP REQ: [id number] RECD: 09/26/24-[address]: SHAVON ARAGON SOURCE: SPUTUM ENTR: 09/26/24-[address]: DIEUDONNE MÉNDEZ MD SPDESC: BRAYDON CONDON MD,BELLA QUINONES MD, MD, JAIRO P MD STONE,ARIELA Casper MD ORDERED: RESP CULTURE Procedure Result Manjeet Date-Time GRAM STAIN Final 09/27/24-6 [facility] GRAM STAIN RESULT: GOOD SPECIMEN [ <10 SEC's/LPF and >25 PMN's/LPF ] RARE YEAST RESPIRATORY CULTURE Final 09/29/24-1112 [facility] COLONY DESCRIPTION: REPORT 1: 1+ ORAL SLIM ; STUDIES TO CONTINUE 1+ YEAST, DUNIA ALBICANS REPORT 2: NO FURTHER WORK-UP DONE DUNIA ALBICANS Test(s) performed by: [facility] [address] [place] [address] @ [facility] Test Performed at: [facility] [address] [place], [place] Medical Digital Archivist: Candida Ortega D.O. RUN DATE: 10/01/24 [facility] PAGE 1 RUN TIME: [phone] [address], [place] [address] Department of Laboratories [facility] # [id number] Coding Support Specialist: Jordan Brower DO Specimen Report PATIENT: ADRIANA ABRAHAM ACCT: [id number] LOC: [facility] U: [id number] AGE/SX: 49/M ROOM: [facility] RE09/21/[address]: DIEUDONNE MÉNDEZ MD : 1975 BED: 1 DIS: STATUS: ADM IN TLOC: SPEC: [id number] MARIA INES: 09/26/24 STATUS: COMP REQ: [id number] RECD: 09/26/[address]: SHAVON ARAGON SOURCE: BLOOD ENTR: 09/26/24-[address]: DIEUDONNE MÉNDEZ MD SPDESC: BRAYDON ARMENTA MD, ULISES M MD MORALES, JOHN M MD RODRIGUEZ, JAIRO P MD STONE,ARIELA Casper MD ORDERED: BLOOD CULTURE COMMENTS: What is the Source? BLOOD Procedure Result Manjeet Date-Time BLOOD CULT Final 10/01/24-1237 NO GROWTH AFTER 5 DAYS RUN DATE: 10/01/24 [facility] PAGE 1 RUN TIME: [phone] [address], [place] [address] Department of Laboratories CLIA # [id number] Coding Support Specialist: Jordan Brower DO Specimen Report PATIENT: ADRIANA ABRAHAM ACCT: [id number] LOC: [facility] U: [id number] AGE/SX: 49/M ROOM: 431 RE09/21/[address]: DIEUDONNE MÉNDEZ MD : 1975 BED: 1 DIS: STATUS: ADM IN TLOC: SPEC: [id number] MARIA INES: 09/26/24-1215 STATUS: COMP REQ: [id number] RECD: 09/26/[address] [facility] [address]: SHAVON ARAGON SOURCE: BLOOD ENTR: 09/26/24-[address]: DIEUDONNE MÉNDEZ MD [facility]: BRAYDON ARMENTA MD,BELLA QUINONES MD, MD,SHENA GONZALES,ARIELA Casper MD ORDERED: BLOOD CULTURE COMMENTS: What is the Source? BLOOD Procedure Result Manjeet Date-Time BLOOD CULT Final 10/01/24-1236 NO GROWTH AFTER 5 DAYS RUN DATE: 09/23/24 [facility] PAGE 1 RUN TIME: [phone] [address], [place] [address] Department of Laboratories [place] # [id number] Coding Support Specialist: Jordan Brower DO Specimen Report PATIENT: ADRIANA ABRAHAM ACCT: [id number] LOC: [facility] U: [id number] AGE/SX: 49/M ROOM: ED RE09/21/[address]: DIEUDONNE MÉNDEZ MD : 1975 BED: 13 DIS: STATUS: ADM IN TLOC: SPEC: [id number] MARIA INES: 09/23/24 STATUS: COMP REQ: [id number] RECD: 09/23/[address] [facility] [address]: SHAVON ARAGON SOURCE: NASAL ENTR: 09/23/[address]: DIEUDONNE MÉNDEZ MD SPDESC: BRAYDON ARMENTA MD, ULISES M MD RODRIGUEZ, JAIRO P MD STONE, JAMES R MD ORDERED: MRSA BY PCR Procedure Result Manjeet Date-Time MRSA NASAL SCREEN-PCR Final 09/23/24-1624 MRL RESULT: NEGATIVE FOR MRSA TARGET DNA. @ [facility] Test Performed at: [facility] [address], [place], [place] Medical Digital Archivist: Candida Ortega D.O. RUN DATE: 09/24/24 [facility] PAGE 1 RUN TIME: [phone] [place] [address] Department of Laboratories IA # [id number] Coding Support Specialist: Jordan Brower DO Specimen Report PATIENT: ADRIANA ABRAHAM ACCT: [id number] LOC: [facility] U: [id number] AGE/SX: 49/M ROOM: 430 RE09/21/[address]: DIEUDONNE MÉNDEZ MD : 1975 BED: 1 DIS: STATUS: ADM IN TLOC: SPEC: [id number] MARIA INES: 09/22/24 STATUS: COMP REQ: [id number] RECD: 09/22/[address]: WILMA HALL SOURCE: URINE CC ENTR: 09/22/24-15[address] [facility] [address]: DIEUDONNE MÉNDEZ MD [facility]: BRAYDON ARMENTA MD, ULISES M MD RODRIGUEZ,SHENA GONZALES,ARIELA Casper MD ORDERED: URINE CULTURE Procedure Result Manjeet Date-Time URINE CULTURE Final 09/24/24-1652 REPORT URINE FINAL-NO GROWTH 36-48 HRS RUN DATE: 09/24/24 [facility] PAGE 1 RUN TIME: [address] [address] Department of Laboratories [facility] # [id number] Coding Support Specialist: Jordan Brower DO Specimen Report PATIENT: ADRIANA ABRAHAM ACCT: [id number] LOC: [facility] U: [id number] AGE/SX: 49/M ROOM: 430 RE09/21/[address]: DIEUDONNE MÉNDEZ MD : 1975 BED: 1 DIS: STATUS: ADM IN TLOC: SPEC: [id number] MARIA INES: 09/22/24 STATUS: COMP REQ: [id number] RECD: 09/22/[address] [facility] [address]: WILMA H[address] COURT SECURITY OFFICER SOURCE: SPUTUM ENTR: 09/22/240013 [facility] DR: DIEUDONNE MÉNDEZ MD SPDESC: BRAYDON CONDON MD,SPENCER SOLIS,ARIELA HOANG MD, MD ORDERED: RESP CULTURE Procedure Result Manjeet Date-Time GRAM STAIN Final 09/22/24-153 [facility] GRAM STAIN RESULT: GOOD SPECIMEN [ <10 SEC's/LPF and >25 PMN's/LPF ] 1+ GRAM POSITIVE COCCI RESPIRATORY CULTURE Final 09/24/24-0634 [facility] COLONY DESCRIPTION: REPORT 1: 1+ ORAL SLIM ; STUDIES TO CONTINUE REPORT 2: 1+ YEAST, DUNIA ALBICANS NO FURTHER WORK-UP DONE DUNIA ALBICANS Test(s) performed by: [facility] [address] [place] [address] @ [facility] Test Performed at: [facility] [address], [place], [place] Medical Digital Archivist: Candida Ortega D.O. RUN DATE: 09/26/24 [facility] PAGE 1 RUN TIME: [phone] [address], [place] [address] Department of Laboratories [facility] # [id number] Coding Support Specialist: Jordan Brower DO Specimen Report PATIENT: ADRIANA ABRAHAM: [id number] LOC: [facility] U: [id number] AGE/SX: 49/M ROOM: 210 RE09/21/[address]: DIEUDONNE MÉNDEZ MD : 1975 BED: 1 DIS: STATUS: ADM IN TLOC: ------ ------ SPEC: [id number] MARIA INES: 09/21/24 STATUS: COMP REQ: [id number] RECD: 09/21/[address]: SEBASTIÁN MELÉNDEZ MD SOURCE: BLOOD ENTR: 09/21/[address] [facility] [address]: SELF,REFERRAL SPDESC: ORDERED: BLOOD CULTURE COMMENTS: What is the Source? BLOOD Procedure Result Manjeet Date-Time BLOOD CULT Final 09/26/24 NO GROWTH AFTER 5 DAYS RUN DATE: 09/26/24 [facility] PAGE 1 RUN TIME: [phone] [address], [place] [address] Department of Laboratories CLIA # [id number] Coding Support Specialist: Jordan Brower DO Specimen Report PATIENT: ADRIANA ABRAHAM ACCT: [id number] LOC: [facility] U: [id number] AGE/SX: 49/M ROOM: 210 RE09/21/[address]: DIEUDONNE MÉNDEZ MD : 1975 BED: 1 DIS: STATUS: ADM IN TLOC: SPEC: [id number] MARIA INES: 09/21/24 STATUS: COMP REQ: [id number] RECD: 09/21/[address]: AGATHA MELÉNDEZ MD SOURCE: BLOOD ENTR: 09/21/24-18[address] [facility] [address]: [facility]ELF[facility] ORDERED: BLOOD CULTURE COMMENTS: What is the Source? BLOOD Procedure Result Manjeet Date-Time BLOOD CULT Final 09/26/24-1830 NO GROWTH AFTER 5 DAYS Assessment/Plan: ASSESSMENT: Hyperosmolar Hyperglycemic Syndrome POA, resolved CABG by Dr. Szymanski severe anemia severe thrombocypotenia ESRD on new hemodialysis via permcath NSTEMI POA Influenza bronchopneumonia with sepsis POA, resolving Acute Hypoxemic Respiratory Failure POA, resolving Acute on chronic renal failure with concern for ATN POA Metabolic acidosis POA Lactic acidosis POA, resolved CKD stage 4 POA Uncontrolled Diabetes POA Protein Calorie malnutrition POA Discharge Instructions: ADMISSION DATE : 09/21/24 DISCHARGE DATE: 10/09/24 DISPOSITION : Home CONDITION : Stable LOIN TRIMMER(S) : Critical care Dr. Dong, Embryology Teacher Dr. Armenta , Director Of Nuclear Medicine Dr. Gonzales , CT surgeon Dr. Szymanski , Power Plant Engineer Dr. Patel FOLLOW UP APPOINTMENT(S) : f/u with PCP in one 2-3 days and consultants in 1-2 weeks PROCEDURES: CABG, Permcath placement IMAGING (S) : report attached to summary MICROBIOLOGY : report attached to summary ACTIVITY : ad scott HOME MEDICATIONS : Continued Home Medications: Active Scripts Spironolactone (Aldactone) 50 Mg Tablet, 1 TAB PO BID for 30 Days, #60 TAB 0 Refills Prov:BRIAN LANDON MD 10/09/24 Furosemide (Lasix 20Mg Tab) 20 Mg Tablet, 1 TAB PO BID for 30 Days, #60 TAB 0 Refills Prov:BRIAN LANDON MD 10/09/24 Losartan Potassium (Cozaar) 25 Mg Tablet, 50 MG PO HS, #60 TAB Prov:BRIAN LANDON MD 10/09/24 Metoprolol Tartrate (Lopressor) 25 Mg Tab, 25 MG PO BID, #60 TAB Prov:BRIAN LANDON MD 10/09/24 Folic Acid (Folvite) 1 Mg Tab, 1 MG PO DAILY, #30 TAB Prov:BRIAN LANDON MD 10/09/24 Empagliflozin (Jardiance) 10 Mg Tablet, 10 MG PO DAILY, #30 TAB Prov:BRIAN LANDON MD 10/09/24 Cyanocobalamin (Vitamin B-12) (Vitamin B-12) 1,000 Mcg Tablet, 1000 MCG PO DAILY, #30 TAB Prov:BRIAN LANDON MD 10/09/24 Atorvastatin Calcium (LIPITOR) 40 Mg Tablet, 40 MG PO HS for 30 Days, #30 TAB 1 Refill Prov:SHANNAN BALTAZAR MD 04/08/24 Reported Medications Ferrous Sulfate (Iron) 325 Mg (65 Mg Iron) Tablet, 1 TAB PO DAILY for 30 Days, #60 TAB 0 Refills 09/22/24 Folic Acid/Vitamin B Comp W-C (Ila-Monroe Tablet) 0.8 Mg Tablet, 1 TAB PO DAILY for 30 Days, #30 TAB 0 Refills 09/22/24 Sodium Bicarbonate (Sodium Bicarbonate) 650 Mg Tablet, 1 TAB PO BID for indigestion for 30 Days, #60 TAB 0 Refills 09/22/24 Insuln Asp Prt/Insulin Aspart (Novolog Mix 70-30 Flexpen Syrn) 100 Unit/Ml (70- 30) Insuln.pen, 30 UNITS SQ ACDINNER, SYRINGE 04/06/24 Insuln Asp Prt/Insulin Aspart (Novolog Mix 70-30 Flexpen Syrn) 100 Unit/Ml (70- 30) Insuln.pen, 60 UNITS SQ ACBKFST, SYRINGE 04/06/24 Aspirin (ASPIRIN 81 MG ECTAB) 81 Mg Ectab, 81 MG PO HS, TAB.EC 04/06/24 Gabapentin (Neurontin) 300 Mg Capsule, 300 MG PO TID, CAP 04/06/24 Discontinued Reported Medications Olmesartan Medoxomil (Olmesartan Medoxomil) 40 Mg Tablet, 40 MG PO DAILY, TAB 04/06/24 Discontinued Scripts Nitroglycerin (Nitroglycerin) 0.4 Mg Tab.subl, 0.4 MG SL [id number] PRN for chest pain, #30 TAB.SL 1 Refill Prov:SHANNAN BALTAZAR MD 04/08/24 Isosorbide Mononitrate (Isosorbide Mononitrate ER) 30 Mg Tab.er.24h, 30 MG PO DAILY for 30 Days, #30 TAB 1 Refill Prov:SHANNAN BALTAZAR MD 04/08/24 Nifedipine (Nifedipine ER) 30 Mg Tab.er.24, 60 MG PO DAILY for 30 Days, #30 TAB 1 Refill Prov:SHANNAN BALTAZAR MD 04/08/24 [Isosorbide Yazoo 30MG Sr Tab] 30 MG TAB.ER.24H No Conflict Check, 30 MG PO DAILY for 30 Days, #30 1 Refill Prov:SHANNAN BALTAZAR MD 04/08/24 Carvedilol (Coreg) 6.25 Mg Tablet, 6.25 MG PO BID for 30 Days, #60 TAB 1 Refill Prov:SHANNAN BALTAZAR MD 04/08/24 New Medications: Furosemide (Lasix 20Mg Tab) 20 Mg Tablet 1 TAB PO BID for 30 Days, #60 TAB 0 Refills Spironolactone (Aldactone) 50 Mg Tablet 1 TAB PO BID for 30 Days, #60 TAB 0 Refills Cyanocobalamin (Vitamin B-12) (Vitamin B-12) 1,000 Mcg Tablet 1000 MCG PO DAILY, #30 TAB Empagliflozin (Jardiance) 10 Mg Tablet 10 MG PO DAILY, #30 TAB Folic Acid (Folvite) 1 Mg Tab 1 MG PO DAILY, #30 TAB Losartan Potassium (Cozaar) 25 Mg Tablet 50 MG PO HS, #60 TAB Metoprolol Tartrate (Lopressor) 25 Mg Tab 25 MG PO BID, #60 TAB Continued Medications: Aspirin (Aspirin 81 Mg Ectab) 81 Mg Ectab 81 MG PO HS, TAB.EC Atorvastatin Calcium (Lipitor) 40 Mg Tablet 40 MG PO HS for 30 Days, #30 TAB 1 Refill Ferrous Sulfate (Iron) 325 Mg (65 Mg Iron) Tablet 1 TAB PO DAILY for 30 Days, #60 TAB 0 Refills Folic Acid/Vitamin B Comp W-C (Ila-Monroe Tablet) 0.8 Mg Tablet 1 TAB PO DAILY for 30 Days, #30 TAB 0 Refills Gabapentin (Neurontin) 300 Mg Capsule 300 MG PO TID, CAP Insuln Asp Prt/Insulin Aspart (Novolog Mix 70-30 Flexpen Syrn) 100 Unit/Ml (70- 30) Insuln.pen 60 UNITS SQ ACBKFST, SYRINGE Insuln Asp Prt/Insulin Aspart (Novolog Mix 70-30 Flexpen Syrn) 100 Unit/Ml (70- 30) Insuln.pen 30 UNITS SQ ACDINNER, SYRINGE Sodium Bicarbonate (Sodium Bicarbonate) 650 Mg Tablet 1 TAB PO BID for indigestion for 30 Days, #60 TAB 0 Refills Discontinued Medications: Carvedilol (Coreg) 6.25 Mg Tablet 6.25 MG PO BID for 30 Days, #60 TAB 1 Refill [Isosorbide Yazoo 30MG Sr Tab] () 30 MG TAB.ER.24H 30 MG PO DAILY for 30 Days, #30 1 Refill Isosorbide Mononitrate (Isosorbide Mononitrate ER) 30 Mg Tab.er.24h 30 MG PO DAILY for 30 Days, #30 TAB 1 Refill Nifedipine (Nifedipine ER) 30 Mg Tab.er.24 60 MG PO DAILY for 30 Days, #30 TAB 1 Refill Nitroglycerin (Nitroglycerin) 0.4 Mg Tab.subl 0.4 MG SL [id number] PRN for chest pain, #30 TAB.SL 1 Refill Olmesartan Medoxomil (Olmesartan Medoxomil) 40 Mg Tablet 40 MG PO DAILY, TAB Time spent arranging discharge: 31-60 minutes ATTESTATION BY PHYSICIAN I have seen and examined the patient. I reviewed the documentation, medical decision making, and treatment plan as noted by the resident provider above. I agree with the findings and plan of care. Dieudonne Méndez MD,BRIAN FLOOD Oct 09, 2024 16:07
[2024-10-09] MEDS ORDERED: SPIR50TA PO (16:23)
[2024-10-09] MEDS ORDERED: FURO20TA6 PO (16:23)
[2024-10-09] MEDS ORDERED: LOSA-417 PO (16:23)
[2024-10-09] MEDS ORDERED: EMPA10TA PO (16:23)
[2024-10-09] MEDS ORDERED: CYAN-52 PO (16:23)
[2024-10-09] MEDS ORDERED: METO25 PO (16:23)
[2024-10-09] MEDS ORDERED: FOLI1 PO (16:23)
--- NOTE | 2024-10-09 17:04 | PN ---
[facility] PROGRESS NOTE Date Patient Seen: Oct 09, 2024 Time of Visit: 11:01 Supervising Physician: DR. ANNA BRADY Primary Care Physician: Gama Acosta Outpatient Specialists: [ ] Inpatient Consults: Cardiology, nephrology and critical care team PROBLEM LIST: Septic shock, not POA, resolved off pressor Acute Hypoxemic Respiratory Failure, POA, on 2LNC Nstemi, POA, s/p CABG 10/03/[address] Page Acute on chronic CHF with reduced EF of 35 40% Acute thrombocytopenia, not POA, r/o HIT pending oncology eval Community acquired influenza A viral pneumoniae w/ superimposed Bilateral bacterial Pneumonia, POA, treated Sepsis Due To Bilateral Pneumonia And Influenza A Infection, POA, improved Severe transaminitis 2/2 shocked liver not POA ESRD with new onset hemodialysis this admission s/p Rt permacath Recurrent Dka w/ reopening of AGAP and ketones, resolved Acute Metabolic Acidosis 2/2 DkA and SAURABH , POA, improved Hyperkalemia In The Context Of Chronic Kidney Injury, Poa Morbid Obesity BMI 40.5 Plan Summary: Supplemental oxygen as needed Wean off as tolerates Pending Perm cath placement Monitor Hb Discharge home per primary INTERVAL HISTORY: 09/22/2024: At the time my evaluation, the patient was in the emergency department awaiting bed assignment. The staff nurse reports no acute events overnight. The patient was on a Oxymizer with optimal SpO2. He was normotensive without the need for pressor therapy. There was no complaint of chest pain. There was no abdominal pain, nausea vomiting or diarrhea. The pa tient continued on a insulin drip per the DKA protocol. He was started on antibiotic and antiviral therapy for management of his condition. Review of labs today showed no major concern on CBC. Chemistry panel did show a sodium of 135, chloride of 100 and a CO2 of 20 with a anion gap of 15. Blood glucose remains elevated in the 300s. No new complaint. 09/23- saw patient and ED 13 awake alert and oriented x3. 2D echo at bedside being performed. Patient has been afebrile heart rate of 110, blood pressure 116/63 with respiratory rate of 20 saturating 97% with 7 L via nasal cannula oximizer. Urine output 1.4 L in the last 24 hours. On laboratory WBCs are 11.4 H&H trending down 7.6/23.1 with a platelet count that is 178 K. on chemistry sodium 136 potassium of 3.7 chloride 100 carbon dioxide of 19 BUN 106. Creatinine of 8.6 and GFR of 7. Per Dr Armenta pt scheduled for a Mitesh hemodialysis catheter per IR today. Pt continues with Tamiflu, Doxy, Cefepime and MRSA coverage will be added w/ vanco due to suspected MRSA superimposed pneumonia on Influenza pneumonia. On CT chest, abdomen and pelvis shows Acute appearing infiltrates in both lung bases consistent with pneumoniae. No acute finding in the abdomen or pelvis. Del Cid catheter in good position in the urinary bladder. We will continue to follow Neprhology recommendations. 09/24 patient was seen and examined at bedside with primary nurse present. Patient to receive1 unit PRBCs hemoglobin this a.m. 6.8. Continue to monitor closely. Patient to continue on IV antibiotics. Patient's troponin levels trending down. We will continue to follow recommendations of Cardiology. Jose stacy remains hypoxic requiring supplemental oxygen via nasal cannula at L. Patient states does not use home oxygen. Patient is to continue on heparin drip. Patient to continue on IV steroids. Patient's echocardiogram revealed EF of 35-40%. Patient's blood cultures have been negative x2 days. Patient remains high risk for decompensation. 09/25 patient was seen and examined at bedside with mother present. At time of visit patient is currently on room air has been weaned off oxygen. Yesterday patient was on 5 L. As per patient is tolerating room air well. Patient denies any chest pain or shortness of breadth, however does report shortness of breath upon minimal exertion. Patient remains on heparin drip. Patient is still currently pending coronary CT to be completed, further recommendations by Cardiology to follow once examined has been completed. Patient to continue on hemodialysis per Nephrology's recommendations. 09/26/24-patient is awake alert and oriented x3. He requires Levophed at 0 point 4 micrograms/kilogram per minute for blood pressure support. He was brought into the ICU overnight due to hypotension and elevated liver enzymes. Current blood pressure of 129/74 heart rate in the 80s respiratory rate of 19 saturating 100% with 7 L via Oxymizer and afebrile. As per RN she is weaning Levophed. Urine output was 100 mL in the last 24 hours he received hemodialysis today with 3.6 L out and had one bowel movement. WBCs spiked up this morning from 17.6224.2 H&H 8.6/25.4 and platelet count is normal 291 K. neutrophils 79.5. Suspect patient aspirated in the episode of hypotension due to increased pulmonary infiltrates to right side and spike in white count and temperature. Patient was panculture and cefepime changed to Zosyn to cover for aspiration pneumonia. On chest x-ray patient with a extensive bilateral infiltrates unchanged. No pneumothorax. Chemistries sodium of 130 potassium is 6.2 chloride of 90 carbon dioxide of 17 with a BUN of 119 and creatinine 9.6 and GFR of six liver enzymes raised AST of 6752 ALT of 4302, alkaline phosphatase of 233 likely from shock liver procalcitonin elevated at 24.31 decreased from admission wishes 70. On repeat BNP patient has a sodium of 134 potassium of 3.5 chloride of 91 carbon dioxide 26 with a anion gap of 17 and ketones of 1.4 we will need to restart insulin drip per DKA protocol. 09/27/24-pt is awake alert and oriented x 3. He is hemodynamically stable and off pressors. He denies any chill, chest pain or increased sob at rest. He does report sob on exertion and reports poor appetite. He is due for HD treatment today. Per RN no major overnight events and he has been afebrile. WBC's are trending down now 20.4, H&H is 8.9/26.3 and platelet count is 220 K. chemistry patient had a sodium of 134 potassium is normal 4.6 chloride of 92 carbon dioxide 24, AGAP has closed, liver enzymes severely elevated consistent with shocked lover but we will order us of abdomen to assess Liver and Gallbladder. Ketones of 0.2. We have discontinued DKA protocol and pt ,may be downgraded from ICU today. 2/2 patient was seen and examined at bedside with family present. Patient is awake alert able to answer simple questions appropriately. Patient is on room air appears to be tolerating well. Patient has remained hemodynamically stable. Patient denies any chest pain or shortness of breadth. Denies any nausea vomiting or abdominal pain. Most per primary nurse no acute events to be reported. We will continue to follow recommendations from Nephrology and Cardiology appreciate assistance. We will continue to monitor patient closely 2/3 patient was seen and examined at bedside with family present. Patient remains on room air tolerating well. Patient is scheduled for coronary CT today we will follow recommendations from Cardiology. Patient to continue on hemodialysis per Nephrology's recommendations. Patient's WBCs trending down today 18.6 yesterday 22.0. Patient to continue on IV antibiotics. We will continue to monitor patient closely. 09/[address] coronary angiogram which revealed 90% stenosis of the LAD as well as 90% stenosis of the left circumflex. Per bedside nurse, patient was offered stent placement, however refused and is wanting to pursue this as an outpatient. Patient's blood sugar remains elevated in for 0s, we will adjust insulin as indicated. Pro mallory significantly decreased from 70 down to 6. Blood and urine cultures remain negative, sputum cultures growing Dunia. His liver enzymes remain elevated but significantly downtrended. Patient is pending AV fistula for hemodialysis, however CTS is deferring this as an outpatient in order to prioritize his CAD management. 10/01 Patient had abnormal LHC and is referred for CABG. His abdominal U/S was negative for gallstones or ductal dilation. Carotid doppler WNL. CXR consistent with pulmonary venous congestion. Continues on dialysis with temp cath per nephrology, pending AV graft by CTS. Blood sugar is persistently elevated, insulin adjusted per primary. 10/02 Patient is evaluated at bedside. Continues with dialysis as scheduled. Patient had endocrinology consult with the adjustment in his insulin regimen. Patient is pending CABG in a.m. He denies any chest pain. 10/03 Patient is evaluated at bedside. Insulin dosing adjusted per endocrinology with improvement in glucose readings. Continues with dialysis as scheduled. Pending CABG today, no current complaints. 10/04 patient was admitted at bedside. He was status post CABG yesterday by Dr. Page. He was brought in the ICU postop for medical management. At the time of my visit. Patient had been extubated and saturating well on aerosol mask at 40% FiO2. He is awake, alert, following commands. Continues on vasopressin and epinephrine. Patient also undergoing an extra dialysis session today which just over 1.2L removed. Per bedside nurse had to initiate levophed temporarily d/t low blood pressure. Chest tube in place with 1260ml of output per chart. His hemoglobin dropped to 5.5 overnight, did receive blood products with improvement to 9.0. 10/05 Patient is evaluated at bedside. Blood pressures are maintained with maps above 70. He continues on low-dose epi drip per CTS request. Chest tube with the about 800 cc of drainage overnight per nursing staff. Hemoglobin has dropped to 6.6, currently receiving one PRBC. He had a dialysis session yesterday, labs showed mild hyperkalemia. We will continue dialysis per Nephrology's recommendation. White blood count is within normal limits at nine, cultures remained negative. 10/06 patient is evaluated at bedside. Has been weaned off pressors. Blood pressures are holding up with maps above 70. CXR reveals atelectasis in pulmonary congestion. Patient did have hemodialysis session yesterday with 2.4 L of fluid removed. His femoral a line has been removed and patient is up out of bed to chair. He is slightly edematous to upper and lower extremities. Encouraged use of incentive spirometer. Continues on 2 L NC. He is comfortable without pain. Patient's hemoglobin continues to fluctuate. Did receive 1 unit PRBC yesterday with improvement in hemoglobin to 8.1 now decreasing to 7.3. WBCs have remained within normal limits, patient without signs or symptoms of infection. His platelets have decreased to 38 today, patient is not on any antiplatelets or anticoagulants but does have heparin flush with dialysis. He continues with chest tube with about 1800 mL of total output about 600 mL overnight. Ok to downgrade patient. 10/07 - patient is seen and evaluated at the bedside. Patient is sitting up in bed currently receiving hemodialysis. Patient does not appear to be in any acute distress at this time. Patient does appear to be weak and hypoxemic requiring2 L via nasal cannula. Patient is reported respiratory status continues to improve daily. Instructed nursing to wean off O2 as tolerated. Patient's chest tubes have been discontinued. Vital Signs are stable. Labs are within normal limits. Recommend to continue IS while awake and wean off O2 as tolerated. Patient has been advised to get a bed and ambulate with therapy at least twice a day. 10/08 Patient is a 49 year old gentleman , awake, alert, well oriented with temporary HD catheter he is status post CABG, doing good, no chest pain, doing IS exercises, no SOB, with adequate pain control Hb is 7.2 . We will continue monitoring closely. 10/09 Patient is a 49 year old , not in distress, he had HD done with no difficulties, is status post CABG no in distress wound healing good, no drainage,no bleeding , continues on ASA, Statin, BB, plan is to have a permcath place for HD, no new issues reported. REVIEW OF SYSTEMS: 12 point ROS reviewed with patient. Pertinent positives mentioned above. Otherwise negative. PHYSICAL EXAM: GENERAL: alert, weak, awake oriented x 3, weak, deconditioned HEENT: EOMI, Sclera non icteric, moist mucosa NECK: Supple, no JVD, trachea midline LUNGS: coarse rhonchi breath sounds decreased bilaterally. No wheezes HEART: Regular rate and rhythm. Normal S1 and S2, without murmurs ABD: Abdomen soft, nontender. Bowel sounds present EXT: No clubbing cyanosis, positve 2+ edema to upper and lower extremities NEURO: Alert and oriented to person, follows commands Vital Signs (last 8hr) Date Time Temp Pulse Resp B/P (MAP) Pulse Ox O2 Delivery O2 Flow Rate FiO2 10/09/24 16:32 98.1 96 18 134/79 100 Room Air 10/09/24 15:45 95 18 149/81 92 Room Air 10/09/24 15:30 95 Room Air* 0 21 10/09/24 15:30 99 18 152/87 93 Room Air 10/09/24 15:15 98 18 148/85 94 Room Air 10/09/24 15:00 98.1 94 18 151/89 95 Room Air 10/09/24 13:30 97.9 85 16 129/81 Nasal Cannula 2.0 10/09/24 13:10 97.9 86 18 140/83 Nasal Cannula 2.0 10/09/24 13:09 98.1 96 18 134/79 100 Nasal Cannula 2.0 10/09/24 12:55 88 16 125/78 Nasal Cannula 2.0 10/09/24 12:40 86 16 130/80 Nasal Cannula 2.0 10/09/24 12:25 89 16 146/85 Nasal Cannula 2.0 10/09/24 12:10 88 16 139/78 Nasal Cannula 2.0 10/09/24 11:55 93 16 161/93 Nasal Cannula 2.0 10/09/24 11:40 89 16 150/84 Nasal Cannula 2.0 10/09/24 11:34 97.9 95 18 134/79 Nasal Cannula 2.0 10/09/24 11:25 89 16 133/80 Nasal Cannula 2.0 10/09/24 11:10 86 16 145/81 Nasal Cannula 2.0 10/09/24 10:55 89 16 150/84 Nasal Cannula 2.0 10/09/24 10:40 89 16 147/86 Nasal Cannula 2.0 10/09/24 10:25 97 16 146/78 Nasal Cannula 2.0 10/09/24 10:10 97.9 83 18 160/84 Nasal Cannula 2.0 10/09/24 10:00 85 20 N/Cannula Low lpm 2.0 10/09/24 10:00 97.9 90 18 140/81 Nasal Cannula 2.0 LABS: Hematology Labs: Test 10/09/24 07:52 10/09/24 04:00 Range/Units Hemoglobin 7.2 L 14.0-18.0 g/dL Hematocrit 21.7 L 42-54 % White Blood Count 6.2 4.8-10.8 K/uL Red Blood Count 2.38 L 4.50-6.20 MIL/uL Mean Corpuscular Volume 86.6 79-99 fL Mean Corpuscular Hemoglobin 28.6 27.0-33.0 pg Mean Corpuscular Hemoglobin Concent 33.0 32.0-36.0 g/dL Red Cell Distribution Width 15.9 H 11.0-15.5 % Platelet Count 80 #L 130-400 K/uL Mean Platelet Volume 11.5 H 7.5-10.5 fL Nucleated Red Blood Cells 0.0 0.0-0.19 % Chemistry Labs: Test 10/09/24 15:53 10/09/24 04:00 Range/Units Whole Blood Glucose 180 H 70-110 MG/DL Sodium Level 134 L 136-145 mmol/L Potassium Level 4.5 3.5-5.1 mmol/L Chloride Level 95 L 101-111 mmol/L Carbon Dioxide Level 29 21-32 mmol/L Blood Urea Nitrogen 78 *H 7-18 mg/dL Creatinine 10.4 *H 0.5-1.3 mg/dL Glomerular Filtration Rate Calc 6 >90 mL/min Random Glucose 213 H 70-105 mg/dL Total Calcium 7.9 L 8.5-10.1 mg/dL Phosphorus Level 7.0 H 2.5-4.9 mg/dL Total Bilirubin 0.5 0.2-1.0 mg/dL Direct Bilirubin 0.1 0.0-0.3 mg/dL Aspartate Amino Transf (AST/SGOT) 24 10-37 U/L Alanine Aminotransferase (ALT/SGPT) 32 12-78 U/L Alkaline Phosphatase 230 H 50-136 U/L Total Protein 6.0 6.0-8.3 g/dL Albumin 2.2 L 3.5-5.0 g/dL Coagulation Labs: Test 10/09/24 04:00 Range/Units Prothrombin Time 11.5 9.6-11.6 SEC Prothromb Time International Ratio 1.03 0.85-1.15 Activated Partial Thromboplast Time 29.7 26.3-35.5 SEC DIAGNOSTICS / RADIOLOGY RESULTS: [ ] PLAN Perm cath placement follow up Cardiovascular recommendations HD as scheduled wound care statin ASA Adequate pain control adequate BP control NEURO: Minimize central acting medications as possible. Maintain fall precautions, adequate lighting during the day PULMONARY: Supplemental 02 as needed. Maintain aspiration precautions at all times IS while awake CARDIOVASCULAR: Follow hemodynamics. Vital signs per facility protocol GI & NUTRITION: Continue with nutritional support. Continue stool softeners and laxatives as needed. KIDNEYS & ELECTROLYTES: Strict monitoring of intake, output and overall fluid balance. Avoid nephrotoxic medications to the extent possible. Medications to be dosed according to renal function. Monitor electrolytes and replace as needed ENDOCRINE: Maintain blood glucose between 100-180 at all times. Hypoglycemia protocol in place INFECTIOUS DISEASE: Trend temperature, WBC and procalcitonin level Follow cultures, deescalate antibiotics as soon as possible. Panculture if new onset fever ONCOLOGY/HEMATOLOGY/COAGULATION: Monitor for s/s of bleeding Monitor hemoglobin, coagulation studies as needed SKIN: Pressure ulcer prevention per facility protocol Specialty mattress ORTHO/REHAB: Continue PT/OT Prophylaxis: Continue GI and DVT prophylaxis Code Status: Full Resuscitation Disposition: As per attending ATTESTATION BY PHYSICIAN Documentation assistance provided by a scribe, information recorded by the scribe was done at my direction and has been reviewed and validated by me." ANNA US MD I personally scribed for ANNA US MD ([email or web address]) on 10/09/24 at 17:04. Electronically submitted by Maisha Huerta ([id number]). ANNA US MD Oct 09, 2024 17:04
--- NOTE | 2024-10-09 18:05 | NUR ---
CM NOTE CM spoke to Teri with [facility]. CM advised Teri that patient is discharging today. States patient is able to register tomorrow to start first o/p HD treatment on Sunday. Patient and spouse agreed to appointment for tomorrow at 1000 AM. CM faxed requested clinical to Teri. CM also f/u with [facility] in regards to POC delivery. MEG spoke to Vijay with [facility]. States she will notify rental car ferry driver to deliver POC to hospital. CM updated primary nurse.
--- NOTE | 2024-10-09 21:30 | NUR ---
PT AWAKE, ALERT, AND ORIENTED, DENIES DISCOMFORT. DC HOME INSTRUCTIONS GIVEN TO PT AND SPOUSE, ACKNOWLEDGED ALL INFORMATION , ALL QUESTIONS ANSWERED. AWARE RX ELECTRONICALLY SENT TO [facility]. [facility] NEEDING TO PRE-REGISTER FOR OUTPATIENT DIALYSIS TREATMENTS TOMORROW. ALL MD F/U APPOINTMENTS GIVEN TO PT. PT MADE AWARE TO CALL PCP FOR QUESTIONS OR CONCERNS, MADE AWARE TO DIAL 911 OR RETURN TO ER IN CASE OF EMERGENCY. HOME O2 DELIVERED AT THIS TIME.
--- NOTE | 2024-10-09 22:19 | PN ---
NEPHROLOGY NOTE SUBJECTIVE: The patient has been evaluated and seen for dialysis and seen several times. The patient is generally weak. No other associated finding. No other aggravating or relieving factors. PHYSICAL EXAMINATION: GENERAL: Pale, no other distress or deformities, lying in bed. VITAL SIGNS: Blood pressure is around 151/80, pulse is 99, respiratory rate is 18. NECK: Supple. No masses or bruits. Thyroid is palpable. Neck has no bruits. LABORATORY DATA: Have been reviewed. Old records reviewed. IMAGING STUDIES: Reviewed. PROBLEMS: Renal failure, anemia and other comorbidities and the patient has coronary artery disease and CABG. PLAN: Plan will be continued monitoring. Followup on renal function, electrolytes. Seen for dialysis, seen multiple times. Intake, output, weight and overall status will be monitored. Nonsteroidal drugs to be avoided. Dose of medicine to be adjusted and we will follow up closely. The patient was seen and seen for dialysis multiple times. I have discussed with other team members and social science research assistant. TID: [id number] RECEIPT: [id number]
--- NOTE | 2024-10-09 22:57 | PN ---
SUBJECTIVE: The patient has been evaluated and seen for dialysis and seen several times. The patient has multiple problems. The patient has renal failure, anemia, underlying end-stage renal disease, diabetic nephropathy, and hypertension. No fever, chills, or rigors. No cough, expectoration, or hemoptysis. No other associated symptoms. No other aggravating or relieving factors. PHYSICAL EXAMINATION: VITAL SIGNS: Blood pressure 134/79, pulse 96, respiratory rate is 18, afebrile. HEENT: Head is atraumatic. Pupils are round and reactive. Sclerae are anicteric. Conjunctivae are not pale. Oral mucosa is not dry. NECK: Supple. No masses or bruits. Thyroid is palpable. Neck has no bruits. CHEST: Shows equal thoracic percussion note being resonant in all areas. CARDIAC: Regular rhythm. No rub, no S3 or S4. No parasternal heave. ABDOMEN: No guarding or tenderness. Bowel sounds are normoactive. No free fluid. EXTREMITIES: With no edema and no cyanosis, clubbing. LABORATORY DATA: Labs have been reviewed and hemoglobin has been low up to 7.2. Old records reviewed. Creatinine is 7.4. PROBLEMS: Renal failure, anemia, [place], coronary artery disease, CABG, multiple other comorbidities. PLAN: Plan is to continue dialysis support. Continue monitoring of renal function. Continue monitoring of electrolytes. The patient has been seen several times today. I have discussed with other team members. We will continue followup. Outpatient dialysis will need to be finalized before the patient can go home. The patient will get Epogen as needed. Transfusion as needed as per primary team. Overall, condition remained critical. Albumin can be given for hypotension. TID: [id number] RECEIPT: [id number]
--- NOTE | 2024-10-09 23:25 | PN ---
endocrinology progress note Date of Service: 10/09/2024 subjective: s/p CABG and extubated now. patient is off insulin drip. home regimen: novolin 70/30 insulin 70 units twice per day. glucose are mildly elevated. REVIEW OF SYSTEMS extubated now PAST MEDICAL HISTORY: Chronic kidney disease Diabetes type 2 Hypertension Hyperlipidemia Obesity PAST SURGICAL HISTORY: Left eye cataract surgery one month ago PAST SOCIAL HISTORY: Patient lives with . Patient denies alcohol tobacco and recreational drug use FAMILY HISTORY: Noncontributory Coded Allergies: No Known Allergies (Unverified Allergy, Unknown, 03/27/22) ASSESSMENT: Hyperosmolar Hyperglycemic Syndrome POA resolved s/p CABG and extubated now. patient is off insulin drip. glucose are mildly elevated. Uncontrolled Diabetes POA hba1c 12.9% home regimen: novolin 70/30 insulin 70 units twice per day. NSTEMI POA cath shows CAD and s/p CABG Influenza bronchopneumonia with sepsis POA Acute Hypoxemic Respiratory Failure POA Acute on chronic renal failure with concern for ATN POA ON HD Metabolic acidosis POA Lactic acidosis POA CKD stage 4 POA Protein Calorie malnutrition POA PLAN: increase lantus to 25 units daily increase regular insulin to 17 units tid before meals continue medium dose ssi monitor glucose qx6 hourly Vitals/Labs Vital Signs Date Time Temp Pulse Resp B/P (MAP) Pulse Ox O2 Delivery O2 Flow Rate FiO2 10/09/24 19:30 96 Room Air* 0 21 10/09/24 18:55 98.1 107 16 146/72 Laboratory Tests 10/09/24 04:00 10/09/24 07:52 Medications Current Medications Ceftriaxone Sodium 1 gm ONCE ONCE IVPB; Start 09/21/24 at 18:00; Stop 09/21/24 at 18:13; Status DC Azithromycin 250 ml @ 250 mls/hr Q24H IVPB; Start 09/21/24 at 18:00; Stop 09/21/24 at 18:14; Status DC Promethazine HCl/ Codeine 10 ml ONCE ONCE PO; Start 09/21/24 at 18:00; Stop 09/21/24 at 18:01; Status DC Piperacillin Sod/ Tazobactam Sod 3.375 gm ONCE ONCE IVPB Last administered on 09/21/24at 18:35; Start 09/21/24 at 18:30; Stop 09/21/24 at 18:31; Status DC Insulin Human Regular 10 unit ONCE ONCE IV Last administered on 09/21/24at 18:36; Start 09/21/24 at 18:30; Stop 09/21/24 at 18:31; Status DC Metoprolol Tartrate 5 mg ONCE ONCE IV Last administered on 09/21/24at 18:32; Start 09/21/24 at 18:30; Stop 09/21/24 at 18:31; Status DC Heparin Sodium (Porcine) *calculation based on ACTUAL B... AD PRN IV; Start 09/21/24 at 19:30; Stop 09/26/24 at 07:14; Status DC Heparin Sodium/ Dextrose 250 ml @ 0 mls/hr Q6H IV Last administered on 09/25/24at 04:13; Start 09/21/24 at 19:30; Stop 09/26/24 at 18:36; Status DC Sodium Chloride 1,000 ml @ 0 mls/hr ONCE ONCE IV Last administered on 09/21/24at 18:37; Start 09/21/24 at 18:30; Stop 09/21/24 at 18:31; Status DC Ondansetron HCl 4 mg STK-MED ONCE .ROUTE Last administered on 09/21/24at 18:31; Start 09/21/24 at 18:29; Stop 09/21/24 at 18:29; Status DC Oseltamivir Phosphate 75 mg ONCE ONCE PO Last administered on 09/21/24at 18:45; Start 09/21/24 at 19:00; Stop 09/21/24 at 19:01; Status DC Acetaminophen 650 mg Q6H PRN PO; Start 09/21/24 at 19:30; Stop 10/03/24 at 12:53; Status DC Acetaminophen 650 mg Q4H PRN PO Last administered on 09/30/24at 01:32; Start 09/21/24 at 19:30; Stop 10/03/24 at 12:53; Status DC Guaifenesin/ Dextromethorphan 10 ml Q4H PRN PO Last administered on 09/23/24at 22:06; Start 09/21/24 at 19:30; Stop 10/03/24 at 12:53; Status DC Albuterol 1 udvial [id number] IH Last administered on 09/25/24at 06:43; Start 09/21/24 at 22:00; Stop 09/25/24 at 09:59; Status DC Famotidine 10 mg Q48H PO; Start 09/21/24 at 19:30; Stop 09/21/24 at 20:00; Status DC Nitroglycerin 0.5 inch Q8H TD Last administered on 09/25/24at 12:44; Start 09/21/24 at 19:30; Stop 09/27/24 at 10:34; Status DC Piperacillin Sod/ Tazobactam Sod 50 ml @ 12.5 mls/hr Q12H IV Last administered on 09/22/24at 20:43; Start 09/21/24 at 21:00; Stop 09/23/24 at 08:06; Status DC Sodium Chloride 1,000 ml @ 100 mls/hr Q10H IV Last administered on 09/23/24at 12:53; Start 09/21/24 at 19:30; Stop 09/27/24 at 10:34; Status DC Oseltamivir Phosphate 75 mg DAILY PO Last administered on 09/23/24at 08:38; Start 09/22/24 at 09:00; Stop 09/23/24 at 13:29; Status DC Doxycycline Hyclate 100 mg BID PO Last administered on 09/30/24at 20:53; Start 09/21/24 at 21:00; Stop 09/30/24 at 23:59; Status DC Aspirin 81 mg DAILY PO Last administered on 10/08/24at 07:59; Start 09/22/24 at 09:00; Stop 10/09/24 at 21:48; Status DC Insulin Human Regular 100 unit/ Sodium Chloride 101 ml @ 0 mls/hr PROTOCOL IV Last administered on 09/21/24at 21:01; Start 09/21/24 at 20:00; Stop 09/23/24 at 21:20; Status DC Famotidine 10 mg DAILY IV Last administered on 09/27/24at 09:09; Start 09/22/24 at 09:00; Stop 09/27/24 at 10:35; Status DC Alprazolam 0.5 mg ONCE ONCE PO Last administered on 09/21/24at 21:44; Start 09/21/24 at 22:00; Stop 09/21/24 at 22:01; Status DC Magnesium Sulfate 50 ml @ 0 mls/hr PROTOCOL PRN IV Last administered on 09/21/24at 23:52; Start 09/22/24 at 00:00; Stop 09/22/24 at 00:04; Status DC Magnesium Sulfate 50 ml @ As Directed STK-MED ONCE IV; Start 09/21/24 at 23:49; Stop 09/21/24 at 23:49; Status DC Sodium Chloride 1,000 ml @ 200 mls/hr PROTOCOL IV; Start 09/22/24 at 00:00; Stop 09/23/24 at 21:23; Status DC Potassium Chloride/Dextrose/ Sod Cl 1,000 ml @ 0 mls/hr AD IV; Start 09/22/24 at 00:00; Stop 09/23/24 at 21:23; Status DC Potassium Chloride 20 meq/ Sodium Chloride 1,010 ml @ 0 mls/hr PROTOCOL IV; Start 09/22/24 at 00:00; Stop 09/23/24 at 21:23; Status DC Magnesium Sulfate 50 ml @ 0 mls/hr PROTOCOL IV; Start 09/22/24 at 00:00; Stop 09/23/24 at 21:23; Status DC Insulin Human Regular 100 unit/ Sodium Chloride 101 ml @ 0 mls/hr PROTOCOL IV; Start 09/22/24 at 00:00; Stop 09/22/24 at 00:03; Status DC Mannitol 49 gm AD IV; Start 09/22/24 at 00:00; Stop 09/22/24 at 00:28; Status DC Dextrose/Sodium Chloride 1,000 ml @ 0 mls/hr AD IV Last administered on 09/22/24at 09:49; Start 09/22/24 at 00:00; Stop 09/23/24 at 21:23; Status DC Methylprednisolone Sodium Succinate 125 mg ONCE ONCE IVP Last administered on 09/22/24at 01:35; Start 09/22/24 at 00:30; Stop 09/22/24 at 00:31; Status DC Methylprednisolone Sodium Succinate 40 mg BID IVP Last administered on 09/26/24at 20:37; Start 09/22/24 at 09:00; Stop 09/27/24 at 10:35; Status DC Mannitol 245 ml @ 0 mls/hr AD IV; Start 09/22/24 at 00:30; Stop 09/22/24 at 20:17; Status DC Atorvastatin Calcium 40 mg HS PO; Start 09/22/24 at 21:00; Stop 09/22/24 at 20:17; Status DC Mannitol 500 ml @ 0 mls/hr AD IV; Start 09/22/24 at 00:30; Stop 09/22/24 at 14:33; Status DC Sodium Chloride 4 ml STK-MED ONCE IH; Start 09/22/24 at 05:59; Stop 09/22/24 at 06:00; Status DC Vitamin B Complex/ Vit C/Folic Acid 1 cap DAILY PO Last administered on 10/08/24at 08:00; Start 09/23/24 at 09:00; Stop 10/09/24 at 21:48; Status DC Furosemide 80 mg Q12H IV Last administered on 09/26/24at 13:20; Start 09/22/24 at 21:00; Stop 09/26/24 at 15:22; Status DC Nifedipine 60 mg DAILY PO Last administered on 09/25/24at 08:37; Start 09/23/24 at 09:00; Stop 09/28/24 at 12:01; Status DC Ferrous Sulfate 325 mg DAILY PO Last administered on 10/08/24at 08:00; Start 09/23/24 at 09:00; Stop 10/09/24 at 21:48; Status DC Miscellaneous Medication 1 tab DAILY PO; Start 09/23/24 at 09:00; Stop 09/22/24 at 15:56; Status DC Chlordiazepoxide HCl 25 mg Q2H PRN PO Last administered on 09/28/24at 23:59; Start 09/22/24 at 20:30; Stop 09/29/24 at 20:29; Status DC Chlordiazepoxide HCl 50 mg Q1H PRN PO; Start 09/22/24 at 20:30; Stop 09/29/24 at 20:29; Status DC Thiamine HCl 100 mg/Folic Acid 1 mg/Multivitamins/ Minerals 10 ml/ Sodium Chloride 1,011.2 ml @ 100 mls/ hr Q24H IV Last administered on 09/22/24at 20:43; Start 09/22/24 at 20:30; Stop 09/25/24 at 06:37; Status DC Multivitamins Therapeutic 1 tab DAILY PO Last administered on 10/08/24at 08:00; Start 09/23/24 at 09:00; Stop 10/09/24 at 21:48; Status DC Pharmacy Profile Note 1 each PROTOCOL PRN MISC; Start 09/22/24 at 20:30; Stop 09/29/24 at 20:29; Status DC Fish Oil 2,000 mg BID PO Last administered on 10/02/24at 20:38; Start 09/22/24 at 21:00; Stop 10/03/24 at 12:53; Status DC Metoprolol Tartrate 12.5 mg BID PO Last administered on 09/24/24at 12:07; Start 09/22/24 at 21:00; Stop 09/24/24 at 16:38; Status DC Insulin Glargine 10 units BID@0730,2100 SQ Last administered on 09/25/24at 20:44; Start 09/22/24 at 21:00; Stop 09/26/24 at 11:15; Status DC Vancomycin HCl 1,000 mg DAILY08 IV; Start 09/23/24 at 08:00; Stop 09/22/24 at 20:26; Status DC Vancomycin HCl 250 ml @ 125 mls/hr Q72H IV Last administered on 09/22/24at 20:48; Start 09/22/24 at 20:30; Stop 09/23/24 at 08:04; Status DC Atorvastatin Calcium 40 mg STK-MED ONCE .ROUTE; Start 09/22/24 at 20:41; Stop 09/22/24 at 20:41; Status DC Sodium Bicarbonate 100 meq ONCE ONCE IV Last administered on 09/23/24at 08:40; Start 09/23/24 at 08:00; Stop 09/23/24 at 08:08; Status DC Cefepime HCl 1 gm Q24H IVPB Last administered on 09/25/24at 08:36; Start 09/23/24 at 08:30; Stop 09/26/24 at 11:14; Status DC Pharmacy Profile Note 1 each ONCE MISC; Start 09/23/24 at 13:00; Stop 09/23/24 at 13:25; Status DC Oseltamivir Phosphate 75 mg QTUTHSA[DIALYSIS] PO; Start 09/23/24 at 16:00; Stop 09/23/24 at 17:04; Status DC Oseltamivir Phosphate 75 mg QTUTHSA[DIALYSIS] PO Last administered on 09/25/24at 16:09; Start 09/23/24 at 22:00; Stop 09/26/24 at 16:32; Status DC Atorvastatin Calcium 20 mg HS PO Last administered on 09/26/24at 20:36; Start 09/23/24 at 21:00; Stop 09/27/24 at 10:38; Status DC Clopidogrel Bisulfate 300 mg ONCE ONCE PO Last administered on 09/23/24at 19:04; Start 09/23/24 at 17:30; Stop 09/23/24 at 17:31; Status DC Clopidogrel Bisulfate 75 mg DAILY PO Last administered on 09/25/24at 08:38; Start 09/24/24 at 09:00; Stop 09/26/24 at 07:14; Status DC Lidocaine HCl 20 ml STK-MED ONCE .ROUTE; Start 09/23/24 at 17:17; Stop 09/23/24 at 17:17; Status DC Heparin Sodium/ Sodium Chloride 500 ml @ As Directed STK-MED ONCE IV; Start 09/23/24 at 17:17; Stop 09/23/24 at 17:18; Status DC Heparin Sodium (Porcine) 1,000 unit STK-MED ONCE .ROUTE; Start 09/23/24 at 17:24; Stop 09/23/24 at 17:24; Status DC Albumin Human 100 ml ONCE ONCE IV Last administered on 09/23/24at 19:53; Start 09/23/24 at 19:30; Stop 09/23/24 at 19:31; Status DC Sodium Chloride 1,000 ml @ 0 mls/hr ONCE IV Last administered on 09/26/24at 12:15; Start 09/23/24 at 19:30; Stop 09/27/24 at 13:51; Status DC Pharmacy Profile Note 1 each ONCE MISC; Start 09/23/24 at 21:30; Stop 09/24/24 at 07:08; Status DC Sodium Bicarbonate 650 mg TID PO Last administered on 09/26/24at 20:36; Start 09/24/24 at 09:00; Stop 09/27/24 at 10:34; Status DC Insulin Human Regular INSULIN SLIDING SCAL... ACHS SQ Last administered on 10/03/24at 05:48; Start 09/24/24 at 07:30; Stop 10/03/24 at 12:53; Status DC Vancomycin HCl 750 mg Q24H IVPB Last administered on 09/24/24at 22:43; Start 09/23/24 at 23:30; Stop 09/25/24 at 06:26; Status DC Fluconazole/ Sodium Chloride 800 mg ONCE ONCE IV; Start 09/24/24 at 14:00; Stop 09/24/24 at 13:50; Status DC Epoetin Moses-epbx 10,000 unit ONCE ONCE SQ Last administered on 09/24/24at 18:43; Start 09/24/24 at 16:00; Stop 09/24/24 at 16:01; Status DC Metoprolol Tartrate 5 mg STK-MED ONCE IV; Start 09/24/24 at 15:57; Stop 09/24/24 at 15:57; Status DC Metoprolol Succinate 50 mg BID PO Last administered on 09/24/24at 19:45; Start 09/24/24 at 21:00; Stop 09/26/24 at 07:14; Status DC Metoprolol Succinate 50 mg STK-MED ONCE PO; Start 09/24/24 at 19:28; Stop 09/24/24 at 19:28; Status DC Gabapentin 100 mg TID PO Last administered on 09/30/24at 14:07; Start 09/24/24 at 21:00; Stop 09/30/24 at 17:37; Status DC Vancomycin HCl 750 mg [id number] IVPB; Start 09/26/24 at 16:00; Stop 10/03/24 at 23:29; Status DC Metoprolol Succinate 100 mg ONCE ONCE PO Last administered on 09/25/24at 08:37; Start 09/25/24 at 08:30; Stop 09/25/24 at 08:31; Status DC Albuterol 1 udvial [id number] IH Last administered on 09/26/24at 11:17; Start 09/25/24 at 10:00; Stop 09/26/24 at 15:22; Status DC Metoprolol Tartrate 50 mg ONCE ONCE PO Last administered on 09/25/24at 16:09; Start 09/25/24 at 15:00; Stop 09/25/24 at 15:01; Status DC Epoetin Moses-epbx 10,000 unit ONCE ONCE SQ Last administered on 09/25/24at 17:52; Start 09/25/24 at 15:00; Stop 09/25/24 at 15:01; Status DC Fluconazole/ Sodium Chloride 200 mg Q24H IV Last administered on 09/26/24at 14:38; Start 09/25/24 at 16:00; Stop 09/27/24 at 10:36; Status DC Ondansetron HCl 4 mg STK-MED ONCE .ROUTE; Start 09/25/24 at 22:35; Stop 09/25/24 at 22:41; Status DC Sodium Chloride 250 ml @ 0 mls/hr Q0M IV; Start 09/25/24 at 23:00; Stop 09/27/24 at 10:34; Status DC Albumin Human 100 ml @ 0 mls/hr AD STAT IV Last administered on 09/25/24at 23:17; Start 09/25/24 at 23:09; Stop 09/25/24 at 23:12; Status DC Norepinephrine 250 ml @ 0 mls/hr AD PRN IV Last administered on 09/26/24at 01:40; Start 09/26/24 at 01:30; Stop 09/27/24 at 10:34; Status DC Ondansetron HCl 4 mg Q6H PRN IVP Last administered on 09/27/24at 08:51; Start 09/26/24 at 01:30; Stop 10/03/24 at 12:53; Status DC Morphine Sulfate 2 mg Q4H PRN IVP; Start 09/26/24 at 01:30; Stop 10/01/24 at 04:29; Status DC Ondansetron HCl 4 mg STK-MED ONCE .ROUTE; Start 09/26/24 at 01:21; Stop 09/26/24 at 01:21; Status DC Norepinephrine 250 ml @ As Directed STK-MED ONCE IV; Start 09/26/24 at 01:22; Stop 09/26/24 at 01:22; Status DC Metoprolol Succinate 25 mg BID PO Last administered on 10/03/24at 08:55; Start 09/26/24 at 09:00; Stop 10/03/24 at 12:53; Status DC Piperacillin Sod/ Tazobactam Sod 3.375 gm Q12H IV Last administered on 10/05/24at 23:22; Start 09/26/24 at 11:30; Stop 10/06/24 at 08:29; Status DC Insulin Glargine 15 units BID@0730,2100 SQ Last administered on 09/30/24at 07:03; Start 09/26/24 at 21:00; Stop 09/30/24 at 17:13; Status DC Albuterol 1 udvial [id number] PRN IH; Start 09/26/24 at 15:30; Stop 10/08/24 at 08:49; Status DC Oseltamivir Phosphate 75 mg Q24H PO Last administered on 09/27/24at 18:04; Start 09/26/24 at 17:00; Stop 09/27/24 at 17:01; Status DC Magnesium Sulfate 50 ml @ 0 mls/hr PROTOCOL IV; Start 09/26/24 at 18:30; Stop 09/27/24 at 10:25; Status DC Insulin Human Regular 100 unit/ Sodium Chloride 101 ml @ 0 mls/hr PROTOCOL IV Last administered on 09/26/24at 18:36; Start 09/26/24 at 18:30; Stop 09/27/24 at 10:25; Status DC Pantoprazole Sodium 40 mg BID IVP Last administered on 10/03/24at 08:55; Start 09/27/24 at 21:00; Stop 10/03/24 at 12:53; Status DC Pantoprazole Sodium 40 mg ONCE ONCE IVP Last administered on 09/27/24at 12:08; Start 09/27/24 at 12:00; Stop 09/27/24 at 12:01; Status DC Sodium Chloride 1,000 ml @ 0 mls/hr ONCE IV; Start 09/27/24 at 14:30; Stop 09/27/24 at 13:51; Status DC Sodium Chloride 1,000 ml @ 0 mls/hr ONCE IV Last administered on 10/07/24at 09:59; Start 09/27/24 at 15:00; Stop 10/09/24 at 21:48; Status DC Heparin Sodium (Porcine) 10,000 unit AD IRRIG Last administered on 10/01/24at 17:18; Start 09/27/24 at 14:00; Stop 10/09/24 at 21:48; Status DC Prednisone 20 mg DAILY PO Last administered on 09/30/24at 08:50; Start 09/28/24 at 09:00; Stop 10/01/24 at 08:59; Status DC Iohexol 35,000 mg STK-MED ONCE IV; Start 09/29/24 at 11:19; Stop 09/29/24 at 11:20; Status DC Iohexol 50 ml STK-MED ONCE IV; Start 09/29/24 at 12:17; Stop 09/29/24 at 12:17; Status DC Metoprolol Tartrate 5 mg STK-MED ONCE IV; Start 09/29/24 at 12:23; Stop 09/29/24 at 12:24; Status DC Epoetin Moses-epbx 10,000 unit ONCE ONCE SQ Last administered on 09/29/24at 16:48; Start 09/29/24 at 16:30; Stop 09/29/24 at 16:31; Status DC Albumin Human 100 ml ONCE ONCE IV; Start 09/29/24 at 15:15; Stop 09/29/24 at 16:54; Status DC Epoetin Moses-epbx 10,000 unit [id number] SQ Last administered on 10/01/24at 15:34; Start 10/01/24 at 09:00; Stop 10/06/24 at 15:12; Status DC Clopidogrel Bisulfate 75 mg DAILY PO Last administered on 09/30/24at 08:49; Start 09/30/24 at 09:00; Stop 10/01/24 at 08:26; Status DC Atorvastatin Calcium 40 mg HS PO Last administered on 10/09/24at 20:24; Start 09/30/24 at 21:00; Stop 10/09/24 at 21:48; Status DC Sodium Bicarbonate 100 meq ONCE ONCE IV Last administered on 09/30/24at 10:28; Start 09/30/24 at 09:00; Stop 09/30/24 at 09:01; Status DC Calcium Carbonate 1,000 mg TID PO Last administered on 10/06/24at 19:50; Start 09/30/24 at 14:00; Stop 10/07/24 at 00:52; Status DC Ergocalciferol 50,000 unit ONCE ONCE PO Last administered on 09/30/24at 14:07; Start 09/30/24 at 14:00; Stop 09/30/24 at 14:01; Status DC Insulin Glargine 20 units AM SQ; Start 10/01/24 at 09:00; Stop 09/30/24 at 17:26; Status DC Insulin Glargine 10 units HS SQ; Start 09/30/24 at 21:00; Stop 09/30/24 at 17:26; Status DC Insulin Glargine 30 units HS SQ Last administered on 10/01/24at 19:54; Start 09/30/24 at 21:00; Stop 10/02/24 at 07:19; Status DC Insulin Human Lispro 7 unit TIDAC SQ Last administered on 10/01/24at 16:22; Start 10/01/24 at 07:30; Stop 10/01/24 at 17:01; Status DC Dextrose 50 ml AD PRN IV; Start 09/30/24 at 17:30; Stop 10/01/24 at 08:25; Status DC Glucagon 1 mg AD PRN IM; Start 09/30/24 at 17:30; Stop 10/01/24 at 08:25; Status DC Gabapentin 100 mg DAILY PO Last administered on 10/08/24at 08:00; Start 10/01/24 at 09:00; Stop 10/09/24 at 21:48; Status DC Melatonin 5 mg ONCE ONCE PO Last administered on 09/30/24at 23:05; Start 09/30/24 at 23:00; Stop 09/30/24 at 23:01; Status DC Lidocaine HCl 20 ml STK-MED ONCE .ROUTE; Start 10/01/24 at 07:12; Stop 10/01/24 at 07:13; Status DC Iohexol 35,000 mg STK-MED ONCE IV; Start 10/01/24 at 07:12; Stop 10/01/24 at 07:14; Status DC Heparin Sodium (Porcine) 10,000 unit STK-MED ONCE .ROUTE; Start 10/01/24 at 07:12; Stop 10/01/24 at 07:14; Status DC Heparin Sodium/ Sodium Chloride 1,000 ml @ As Directed STK-MED ONCE IV; Start 10/01/24 at 07:12; Stop 10/01/24 at 07:14; Status DC Nitroglycerin 50 mg STK-MED ONCE .ROUTE; Start 10/01/24 at 07:12; Stop 10/01/24 at 07:14; Status DC Fentanyl Citrate 100 mcg STK-MED ONCE .ROUTE; Start 10/01/24 at 07:40; Stop 10/01/24 at 07:40; Status DC Midazolam HCl 2 mg STK-MED ONCE .ROUTE; Start 10/01/24 at 07:40; Stop 10/01/24 at 07:40; Status DC Verapamil HCl 5 mg STK-MED ONCE .ROUTE; Start 10/01/24 at 07:59; Stop 10/01/24 at 07:59; Status DC Dextrose 50 ml AD PRN IV Last administered on 10/05/24at 05:14; Start 10/01/24 at 08:30; Stop 10/09/24 at 21:48; Status DC Glucagon 1 mg AD PRN IM; Start 10/01/24 at 08:30; Stop 10/09/24 at 21:48; Status DC Hydralazine HCl 5 mg ONCE ONCE IV Last administered on 10/01/24at 18:26; Start 10/01/24 at 16:30; Stop 10/01/24 at 16:31; Status DC Hydralazine HCl 10 mg Q6H PRN IV; Start 10/01/24 at 16:30; Stop 10/03/24 at 12:53; Status DC Calcium Gluconate 1 gm/Sodium Chloride 100 ml @ 0 mls/hr PROTOCOL IV; Start 10/01/24 at 17:00; Stop 10/03/24 at 12:53; Status DC Insulin Human Lispro 10 unit TIDAC SQ; Start 10/01/24 at 17:00; Stop 10/01/24 at 19:41; Status DC Insulin Human Lispro 15 unit TIDAC SQ Last administered on 10/02/24at 07:01; Start 10/02/24 at 07:30; Stop 10/02/24 at 07:20; Status DC Insulin Glargine 50 units DAILY SQ Last administered on 10/02/24at 09:41; Start 10/02/24 at 07:30; Stop 10/02/24 at 16:53; Status DC Insulin Human Lispro 20 unit TIDAC SQ Last administered on 10/02/24at 11:48; Start 10/02/24 at 11:30; Stop 10/02/24 at 16:53; Status DC Cefazolin Sodium 2 gm ONCALL IVPB; Start 10/02/24 at 10:30; Stop 10/03/24 at 13:09; Status DC Insulin Glargine 50 units BID SQ Last administered on 10/03/24at 09:02; Start 10/02/24 at 21:00; Stop 10/03/24 at 12:53; Status DC Insulin Human Lispro 25 unit TIDAC SQ Last administered on 10/02/24at 17:17; Start 10/02/24 at 17:00; Stop 10/03/24 at 12:53; Status DC Cefazolin Sodium 1 gm STK-MED ONCE .ROUTE; Start 10/03/24 at 07:24; Stop 10/03/24 at 07:29; Status DC Heparin Sodium/ Sodium Chloride 500 ml @ As Directed STK-MED ONCE IV; Start 10/03/24 at 07:24; Stop 10/03/24 at 07:29; Status DC Papaverine HCl 60 mg STK-MED ONCE .ROUTE; Start 10/03/24 at 07:24; Stop 10/03/24 at 07:29; Status DC Epinephrine HCl 10 mg/Sodium Chloride 250 ml @ 0 mls/hr AD PRN IV Last administered on 10/04/24at 06:35; Start 10/03/24 at 10:00; Stop 10/09/24 at 21:48; Status DC Norepinephrine Bitartrate 250 ml @ 0 mls/hr AD PRN IV; Start 10/03/24 at 10:00; Stop 10/09/24 at 21:48; Status DC Aminocaproic Acid 71709 mg/Sodium Chloride 480 ml @ 0 mls/hr AD PRN IV; Start 10/03/24 at 10:00; Stop 10/09/24 at 21:48; Status DC Lidocaine HCl/ Dextrose 250 ml @ As Directed STK-MED ONCE IV; Start 10/03/24 at 11:16; Stop 10/03/24 at 11:17; Status DC Nitroglycerin/ Dextrose 1 ml @ As Directed STK-MED ONCE .ROUTE; Start 10/03/24 at 11:16; Stop 10/03/24 at 11:17; Status DC Dextrose 50 ml STK-MED ONCE IV; Start 10/03/24 at 11:44; Stop 10/03/24 at 11:44; Status DC Cefazolin Sodium 2 gm STK-MED ONCE .ROUTE; Start 10/03/24 at 12:52; Stop 10/03/24 at 12:52; Status DC Acetaminophen 1,000 mg Q6H6 IV Last administered on 10/04/24at 11:18; Start 10/03/24 at 18:00; Stop 10/04/24 at 17:59; Status DC Aspirin 81 mg ONCE ONCE NG Last administered on 10/03/24at 17:31; Start 10/03/24 at 17:00; Stop 10/03/24 at 17:02; Status DC Docusate Sodium 100 mg BID PO Last administered on 10/09/24at 20:24; Start 10/03/24 at 21:00; Stop 10/09/24 at 21:48; Status DC Lactulose 20 gm BID PRN PO; Start 10/03/24 at 13:00; Stop 10/09/24 at 21:48; Status DC Atorvastatin Calcium 40 mg HS PO; Start 10/03/24 at 21:00; Stop 10/03/24 at 12:58; Status DC Magnesium Hydroxide 30 ml DAILY PRN PO; Start 10/03/24 at 13:00; Stop 10/09/24 at 21:48; Status DC Dexmedetomidine/ Sodium Chloride 400 mcg PROTOCOL IV; Start 10/03/24 at 13:00; Stop 10/04/24 at 12:59; Status DC Acetaminophen 650 mg Q6H PRN PO Last administered on 10/09/24at 15:27; Start 10/03/24 at 13:00; Stop 10/09/24 at 21:48; Status DC Protamine Sulfate 250 mg STK-MED ONCE IV; Start 10/03/24 at 12:54; Stop 10/03/24 at 12:55; Status DC Lidocaine HCl 100 mg STK-MED ONCE .ROUTE; Start 10/03/24 at 12:55; Stop 10/03/24 at 12:55; Status DC Heparin Sodium (Porcine) 10,000 unit STK-MED ONCE .ROUTE; Start 10/03/24 at 12:55; Stop 10/03/24 at 12:55; Status DC Epinephrine HCl 1 mg STK-MED ONCE .ROUTE; Start 10/03/24 at 12:55; Stop 10/03/24 at 12:55; Status DC Sodium Bicarbonate 200 ml @ As Directed STK-MED ONCE .ROUTE; Start 10/03/24 at 12:55; Stop 10/03/24 at 12:55; Status DC Norepinephrine Bitartrate 4 mg STK-MED ONCE IV; Start 10/03/24 at 12:55; Stop 10/03/24 at 12:55; Status DC Fentanyl Citrate 1,000 mcg STK-MED ONCE IJ; Start 10/03/24 at 12:55; Stop 10/03/24 at 12:55; Status DC Propofol 200 mg STK-MED ONCE IV; Start 10/03/24 at 12:55; Stop 10/03/24 at 12:56; Status DC Midazolam HCl 2 mg STK-MED ONCE .ROUTE; Start 10/03/24 at 12:55; Stop 10/03/24 at 12:56; Status DC Rocuronium [place] 50 mg STK-MED ONCE .ROUTE; Start 10/03/24 at 12:56; Stop 10/03/24 at 12:56; Status DC Etomidate 20 mg STK-MED ONCE .ROUTE; Start 10/03/24 at 12:59; Stop 10/03/24 at 13:00; Status DC Sodium Chloride 1,000 ml @ 10 mls/hr ONCE IV; Start 10/03/24 at 13:00; Stop 10/04/24 at 12:59; Status DC Sodium Chloride 10 ml Q8H PRN IVP; Start 10/03/24 at 13:00; Stop 10/09/24 at 21:48; Status DC Morphine Sulfate 0.5 mg Q2H PRN IV Last administered on 10/03/24at 20:56; Start 10/03/24 at 13:00; Stop 10/04/24 at 10:49; Status DC Morphine Sulfate 1 mg Q2H PRN IV; Start 10/03/24 at 13:00; Stop 10/04/24 at 10:49; Status DC Acetaminophen 650 mg Q4H PRN RC; Start 10/03/24 at 13:00; Stop 10/09/24 at 21:48; Status DC Ondansetron HCl 4 mg Q6H PRN IV Last administered on 10/04/24at 16:35; Start 10/03/24 at 13:00; Stop 10/09/24 at 21:48; Status DC Sodium Chloride 500 ml @ 0 mls/hr AD IV; Start 10/03/24 at 13:00; Stop 10/09/24 at 21:48; Status DC Nitroglycerin/ Dextrose 0 ml @ 0 mls/hr AD IV; Start 10/03/24 at 13:00; Stop 10/06/24 at 12:59; Status DC Propofol 100 ml @ 0 mls/hr AD PRN IV; Start 10/03/24 at 13:00; Stop 10/07/24 at 12:59; Status DC Norepinephrine Bitartrate 8 mg/ Dextrose 250 ml @ 0 mls/hr AD PRN IV; Start 10/03/24 at 13:00; Stop 10/03/24 at 13:03; Status DC Epinephrine HCl 10 mg/Sodium Chloride 250 ml @ 0 mls/hr AD PRN IV; Start 10/03/24 at 13:00; Stop 10/03/24 at 13:03; Status DC Aminocaproic Acid 64459 mg/Sodium Chloride 310 ml @ 25 mls/hr AD IV; Start 10/03/24 at 13:00; Stop 10/03/24 at 13:03; Status DC Calcium Gluconate 1 gm/Sodium Chloride 60 ml @ 200 mls/hr AD PRN IV Last administered on 10/05/24at 11:32; Start 10/03/24 at 13:00; Stop 10/09/24 at 21:48; Status DC Magnesium Sulfate 50 ml @ 12.5 mls/hr AD PRN IV Last administered on 10/03/24at 17:21; Start 10/03/24 at 13:00; Stop 10/09/24 at 21:48; Status DC Potassium Chloride 100 ml @ 100 mls/hr AD PRN IV; Start 10/03/24 at 13:00; Stop 10/09/24 at 21:48; Status DC Potassium Phosphate 250 ml @ 42 mls/hr AD PRN IV; Start 10/03/24 at 13:00; Stop 10/09/24 at 21:48; Status DC Albumin Human 250 ml @ 0 mls/hr AD PRN IV Last administered on 10/03/24at 17:23; Start 10/03/24 at 13:00; Stop 10/03/24 at 17:24; Status DC Acetaminophen 650 mg Q4H PRN PO; Start 10/03/24 at 13:00; Stop 10/09/24 at 21:48; Status DC Insulin Human Regular 100 unit/ Sodium Chloride 100 ml @ 0 mls/hr AD IV Last administered on 10/03/24at 17:38; Start 10/03/24 at 13:00; Stop 10/05/24 at 12:59; Status DC Cefazolin Sodium 2 gm Q8H IVPB Last administered on 10/04/24at 09:46; Start 10/03/24 at 18:00; Stop 10/04/24 at 10:01; Status DC Tramadol HCl 25 mg Q6H PRN PO; Start 10/03/24 at 13:00; Stop 10/08/24 at 12:59; Status DC Tramadol HCl 50 mg Q6H PRN PO Last administered on 10/08/24at 08:01; Start 10/03/24 at 13:00; Stop 10/08/24 at 12:59; Status DC Famotidine 20 mg Q48H IV Last administered on 10/09/24at 20:25; Start 10/03/24 at 21:00; Stop 10/09/24 at 21:48; Status DC Sodium Bicarbonate 50 meq AD PRN IV Last administered on 10/03/24at 20:57; Start 10/03/24 at 13:00; Stop 10/06/24 at 12:59; Status DC Dextrose 50 ml AD PRN IV; Start 10/03/24 at 13:00; Stop 10/03/24 at 13:04; Status DC Glucagon 1 mg AD PRN IM; Start 10/03/24 at 13:00; Stop 10/03/24 at 13:04; Status DC Amiodarone HCl 150 mg STK-MED ONCE .ROUTE; Start 10/03/24 at 13:45; Stop 10/03/24 at 13:46; Status DC Potassium Chloride 300 ml @ As Directed STK-MED ONCE IV; Start 10/03/24 at 14:24; Stop 10/03/24 at 14:25; Status DC Heparin Sodium (Porcine) 10,000 unit STK-MED ONCE .ROUTE; Start 10/03/24 at 14:28; Stop 10/03/24 at 14:29; Status DC Lidocaine HCl 100 mg STK-MED ONCE .ROUTE; Start 10/03/24 at 14:30; Stop 10/03/24 at 14:30; Status DC Vasopressin 20 units STK-MED ONCE .ROUTE; Start 10/03/24 at 14:39; Stop 10/03/24 at 14:39; Status DC Albumin Human 500 ml @ As Directed STK-MED ONCE IV; Start 10/03/24 at 15:20; Stop 10/03/24 at 15:20; Status DC Albumin Human 250 ml @ As Directed STK-MED ONCE IV; Start 10/03/24 at 15:58; Stop 10/03/24 at 15:58; Status DC Cefazolin Sodium 3 gm STK-MED ONCE IVPB Last administered on 10/03/24at 13:15; Start 10/03/24 at 13:15; Stop 10/03/24 at 17:02; Status DC Papaverine HCl 60 mg STK-MED ONCE IRRIG Last administered on 10/03/24at 13:45; Start 10/03/24 at 13:45; Stop 10/03/24 at 17:02; Status DC Cefazolin Sodium 1 gm STK-MED ONCE IRRIG Last administered on 10/03/24at 13:45; Start 10/03/24 at 13:45; Stop 10/03/24 at 17:02; Status DC Vasopressin 20 units/Sodium Chloride 100 ml @ 0 mls/hr PROTOCOL IV Last administered on 10/04/24at 06:34; Start 10/03/24 at 19:30; Stop 10/09/24 at 21:48; Status DC Albumin Human 100 ml ONCE ONCE IV Last administered on 10/04/24at 07:24; Start 10/04/24 at 06:30; Stop 10/04/24 at 06:31; Status DC Epoetin Moses-epbx 10,000 unit ONCE ONCE SQ Last administered on 10/04/24at 13:14; Start 10/04/24 at 13:00; Stop 10/04/24 at 13:05; Status DC Albumin Human 100 ml @ As Directed STK-MED ONCE IV Last administered on 10/05/24at 16:18; Start 10/05/24 at 15:46; Stop 10/05/24 at 15:46; Status DC Albumin Human 100 ml ONCE IV Last administered on 10/05/24at 16:18; Start 10/05/24 at 16:00; Stop 10/06/24 at 15:59; Status DC Insulin Human Regular INSULIN SLIDING SCAL... ACHS SQ; Start 10/05/24 at 16:30; Stop 10/06/24 at 06:12; Status DC Guaifenesin/ Dextromethorphan 15 ml Q4H PRN PO Last administered on 10/06/24at 01:35; Start 10/06/24 at 01:30; Stop 10/09/24 at 21:48; Status DC Insulin Glargine 20 units DAILY SQ Last administered on 10/06/24at 09:16; Start 10/06/24 at 09:00; Stop 10/07/24 at 12:41; Status DC Insulin Human Regular INSULIN SLIDING SCAL... ACHS SQ Last administered on 10/08/24at 20:41; Start 10/06/24 at 07:30; Stop 10/09/24 at 00:14; Status DC Insulin Human Regular 5 unit TIDAC SQ Last administered on 10/06/24at 17:10; Start 10/06/24 at 07:30; Stop 10/06/24 at 19:15; Status DC Metoprolol Tartrate 12.5 mg BID PO Last administered on 10/08/24at 08:00; Start 10/06/24 at 09:00; Stop 10/08/24 at 08:34; Status DC Epoetin Moses-epbx 10,000 unit QTUTHSA SQ; Start 10/07/24 at 09:00; Stop 10/07/24 at 13:20; Status DC Insulin Human Regular 10 unit TIDAC SQ; Start 10/07/24 at 07:30; Stop 10/07/24 at 12:41; Status DC Calcium Carbonate 1,000 mg TIDMEALS PO Last administered on 10/09/24at 17:01; Start 10/07/24 at 08:00; Stop 10/09/24 at 21:48; Status DC Insulin Glargine 15 units DAILY SQ Last administered on 10/08/24at 08:11; Start 10/08/24 at 09:00; Stop 10/09/24 at 07:34; Status DC Insulin Human Regular 5 unit TIDAC SQ Last administered on 10/07/24at 18:24; Start 10/07/24 at 17:00; Stop 10/08/24 at 05:46; Status DC Epoetin Moses-epbx 10,000 unit QTUTHSA SQ Last administered on 10/09/24at 15:19; Start 10/07/24 at 16:00; Stop 10/09/24 at 21:48; Status DC Vitamin B Complex 1,000 mcg DAILY PO Last administered on 10/08/24at 08:02; Start 10/08/24 at 09:00; Stop 10/09/24 at 21:48; Status DC Folic Acid 1 mg DAILY PO Last administered on 10/08/24at 08:00; Start 10/08/24 at 09:00; Stop 10/09/24 at 21:48; Status DC Insulin Human Regular 8 unit TIDAC SQ Last administered on 10/08/24at 06:47; Start 10/08/24 at 07:30; Stop 10/08/24 at 12:41; Status DC Metoprolol Tartrate 25 mg BID PO Last administered on 10/09/24at 20:24; Start 10/08/24 at 09:00; Stop 10/09/24 at 21:48; Status DC Ipratropium Warren 0.5 MG Q6H PRN IH; Start 10/08/24 at 09:00; Stop 10/09/24 at 21:48; Status DC Insulin Human Regular 12 unit TIDAC SQ Last administered on 10/08/24at 18:03; Start 10/08/24 at 17:00; Stop 10/08/24 at 20:17; Status DC Insulin Human Regular 15 unit TIDAC SQ Last administered on 10/09/24at 17:03; Start 10/09/24 at 07:30; Stop 10/09/24 at 21:48; Status DC Insulin Human Regular INSULIN SLIDING SCAL... Q4H4 SQ Last administered on 10/09/24at 17:02; Start 10/09/24 at 00:15; Stop 10/09/24 at 21:48; Status DC Insulin Glargine 25 units DAILY SQ; Start 10/09/24 at 09:00; Stop 10/09/24 at 21:48; Status DC Losartan Potassium 25 mg DAILY PO; Start 10/09/24 at 09:00; Stop 10/09/24 at 15:13; Status DC Empaglifozin 10 mg DAILY PO; Start 10/09/24 at 09:00; Stop 10/09/24 at 21:48; Status DC Lidocaine HCl 20 ml STK-MED ONCE .ROUTE; Start 10/09/24 at 13:41; Stop 10/09/24 at 13:42; Status DC Heparin Sodium/ Sodium Chloride 500 ml @ As Directed STK-MED ONCE IV; Start 10/09/24 at 13:41; Stop 10/09/24 at 13:42; Status DC Heparin Sodium (Porcine) 1,000 unit STK-MED ONCE .ROUTE; Start 10/09/24 at 13:48; Stop 10/09/24 at 13:48; Status DC Losartan Potassium 50 mg HS PO Last administered on 10/09/24at 15:27; Start 10/09/24 at 15:30; Stop 10/09/24 at 21:48; Status DC Vitamin B Complex/ Folic Acid 1 cap DAILY PO; Start 10/10/24 at 09:00; Stop 10/09/24 at 21:48; Status DC HENNA PATEL MD Oct 09, 2024 23:25
[2024-10-10] MEDS ORDERED: VITAMIN B COMPLEX 1 CAPSULE PO SCH (09:00)
--- NOTE | 2024-10-14 10:37 | CCATH ---
INDICATIONS: History of chronic kidney disease. DESCRIPTION OF PROCEDURE: Informed consent was obtained after discussion of the risks, benefits and alternatives of the treatment. The right chest was prepped and draped in sterile fashion. A 1% lidocaine was used for anesthesia. A J-wire was advanced through the existing Mitesh catheter and the catheter removed, maintaining wire access. A subcutaneous tunnel was created in the right chest and the Permacath advanced through the tunnel. A peel-away sheath was placed over the wire and the Permacath advanced into the right atrium via the peel-away sheath. Both ports were tested and locked with heparin. Sterile dressing applied. No immediate complication. The patient tolerated the procedure well. FINDINGS: Completion fluoroscopic image demonstrated adequate position of the right Permacath with the catheter tip in the right atrium. IMPRESSION: Uneventful placement of right internal jugular Permacath using fluoroscopy guidance. The patient tolerated the procedure well. TID: [id number] RECEIPT: [id number]
== END 2024-10-09 21:47 | disposition home or self-care (01) | DRG 233 ==
LOC: EDH 16:58 → EDHIP 19:11 → 4AH 09-23 21:54 → 2BH 09-26 01:02 → 2DH 09-27 14:15 → 4AH 09-27 19:00 → 2CV 10-03 13:32 → 2DH 10-06 16:16
PROVIDERS: ADMIT Internal Medicine Sleep Medicine; ATTEND Internal Medicine Sleep Medicine
PROC: 5A1D70Z Performance of Urinary Filtration, Intermittent, Less than 6 Hours Per Day (ICD-10-PCS; 2024-09-23)
PROC: 02HV33Z Insertion of Infusion Device into Superior Vena Cava, Percutaneous Approach (ICD-10-PCS; 2024-09-24)
PROC: 30233N1 Transfusion of Nonautologous Red Blood Cells into Peripheral Vein, Percutaneous Approach (ICD-10-PCS; 2024-09-24)
PROC: 5A1D70Z Performance of Urinary Filtration, Intermittent, Less than 6 Hours Per Day (ICD-10-PCS; 2024-09-24)
PROC: 5A1D70Z Performance of Urinary Filtration, Intermittent, Less than 6 Hours Per Day (ICD-10-PCS; 2024-09-26)
PROC: 5A1D70Z Performance of Urinary Filtration, Intermittent, Less than 6 Hours Per Day (ICD-10-PCS; 2024-09-27)
PROC: 5A1D70Z Performance of Urinary Filtration, Intermittent, Less than 6 Hours Per Day (ICD-10-PCS; 2024-09-29)
PROC: 4A023N7 Measurement of Cardiac Sampling and Pressure, Left Heart, Percutaneous Approach (ICD-10-PCS; 2024-10-01)
PROC: B2111ZZ Fluoroscopy of Multiple Coronary Arteries using Low Osmolar Contrast (ICD-10-PCS; 2024-10-01)
PROC: 5A1D70Z Performance of Urinary Filtration, Intermittent, Less than 6 Hours Per Day (ICD-10-PCS; 2024-10-01)
PROC: 5A1D70Z Performance of Urinary Filtration, Intermittent, Less than 6 Hours Per Day (ICD-10-PCS; 2024-10-02)
PROC: 0PH000Z Insertion of Rigid Plate Internal Fixation Device into Sternum, Open Approach (ICD-10-PCS; 2024-10-03)
PROC: 02100Z9 Bypass Coronary Artery, One Artery from Left Internal Mammary, Open Approach (ICD-10-PCS; principal; 2024-10-03 12:53)
PROC: 021109W Bypass Coronary Artery, Two Arteries from Aorta with Autologous Venous Tissue, Open Approach (ICD-10-PCS; 2024-10-03 12:53)
PROC: 06BQ4ZZ Excision of Left Saphenous Vein, Percutaneous Endoscopic Approach (ICD-10-PCS; 2024-10-03 12:53)
PROC: 5A1D70Z Performance of Urinary Filtration, Intermittent, Less than 6 Hours Per Day (ICD-10-PCS; 2024-10-04)
PROC: 5A1D70Z Performance of Urinary Filtration, Intermittent, Less than 6 Hours Per Day (ICD-10-PCS; 2024-10-05)
PROC: 5A1D70Z Performance of Urinary Filtration, Intermittent, Less than 6 Hours Per Day (ICD-10-PCS; 2024-10-07)
PROC: 5A1D70Z Performance of Urinary Filtration, Intermittent, Less than 6 Hours Per Day (ICD-10-PCS; 2024-10-09)
PROC: 05HY33Z Insertion of Infusion Device into Upper Vein, Percutaneous Approach (ICD-10-PCS; 2024-10-09)
DX: I25.10 Atherosclerotic heart disease of native coronary artery without angina pectoris (principal); A41.9 Sepsis, unspecified organism; I21.4 Non-ST elevation (NSTEMI) myocardial infarction; E11.10 Type 2 diabetes mellitus with ketoacidosis without coma; J10.08 Influenza due to other identified influenza virus with other specified pneumonia; J18.0 Bronchopneumonia, unspecified organism; J96.01 Acute respiratory failure with hypoxia; N18.6 End stage renal disease; J95.1 Acute pulmonary insufficiency following thoracic surgery; R65.21 Severe sepsis with septic shock; J15.9 Unspecified bacterial pneumonia; K72.00 Acute and subacute hepatic failure without coma; I50.43 Acute on chronic combined systolic (congestive) and diastolic (congestive) heart failure; J12.9 Viral pneumonia, unspecified; N17.0 Acute kidney failure with tubular necrosis; I13.2 Hypertensive heart and chronic kidney disease with heart failure and with stage 5 chronic kidney disease, or end stage renal disease; E46 Unspecified protein-calorie malnutrition; J98.11 Atelectasis; D75.829 Heparin-induced thrombocytopenia, unspecified; Y83.8 Other surgical procedures as the cause of abnormal reaction of the patient, or of later complication, without mention of misadventure at the time of the procedure; E11.22 Type 2 diabetes mellitus with diabetic chronic kidney disease; E87.5 Hyperkalemia; E78.00 Pure hypercholesterolemia, unspecified; D64.9 Anemia, unspecified; E11.51 Type 2 diabetes mellitus with diabetic peripheral angiopathy without gangrene; I25.5 Ischemic cardiomyopathy; E11.649 Type 2 diabetes mellitus with hypoglycemia without coma; T45.515A Adverse effect of anticoagulants, initial encounter; Z79.4 Long term (current) use of insulin; Z79.82 Long term (current) use of aspirin; Z79.84 Long term (current) use of oral hypoglycemic drugs; I25.2 Old myocardial infarction; Z79.899 Other long term (current) drug therapy; Z82.49 Family history of ischemic heart disease and other diseases of the circulatory system; Z83.3 Family history of diabetes mellitus; Z95.5 Presence of coronary angioplasty implant and graft; Z98.42 Cataract extraction status, left eye; Z99.2 Dependence on renal dialysis; Z68.39 Body mass index [BMI] 39.0-39.9, adult; Y92.89 Other specified places as the place of occurrence of the external cause
CPT/HCPCS: 36415; 36430; 36556; 36581; 36600; 71045; 71250; 74176; 75574; 76700; 76770; 77001; 80048; 80053; 80061; 80076; 80202; 80305; 81001; 82010; 82040; 82140; 82306; 82330; 82435; 82607; 82728; 82803; 82947; 82948; 83036; 83540; 83550; 83605; 83735; 83880; 84100; 84132; 84145; 84295; 84443; 84484; 85014; 85018; 85025; 85027; 85347; 85378; 85384; 85610; 85651; 85730; 86022; 86140; 86701; 86704; 86706; 86803; 86850; 86880; 86900; 86901; 86923; 87040; 87071; 87086; 87205; 87340; 87390; 87426; 87635; 87641; 87804; 87880; 90935; 93005; 93306; 93312; 93325; 93356; 93458; 93880; 94002; 94010; 94150; 94640; 94660; 94664; 94760; 99156; 99157; 99291; A4450; A7048; C1750; C1752; C1769; G0378; J0171; J0282; J0360; J0612; J0690; J0692; J1450; J1644; J1815; J1940; J2003; J2250; J2270; J2405; J2440; J2470; J2543; J2704; J2720; J2919; J3010; J3370; J3411; J3475; J3480; J3490; J7030; J7040; J7050; J7070; J7120; P9016; P9045; P9046; P9047; Q9967; A4215; A4216; A4221; A4222; A4223; A4649; A6204; C1713; C1776; C1887; C1894; Q5106; Q9965

== ENCOUNTER 2025-02-03 06:10 | Day surgery (SDC) | payer OTHER ==
[2025-02-02 13:51] VITALS: BP 153/77; PULSE 88; RESP 17; TEMP 97.7
[2025-02-02 13:56] LABS: MEAN CORPUSCULAR HEMOGLOBIN 30.2 pg (27.0-33.0); MEAN CORPUSCULAR HGB CONC 32.6 g/dL (32.0-36.0); MEAN CORPUSCULAR VOLUME 92.8 fL (79-99); RED BLOOD CELL COUNT(AUTO) 3.34 MIL/uL (4.50-6.20); RED CELL DISTRIBUTION WIDTH 14.4 % (11.0-15.5); WHITE BLOOD COUNT (AUTO) 5.8 K/uL (4.8-10.8)
--- NOTE | 2025-02-02 14:01 | EKG ---
[facility] Test Date: 2025-02-02 Test Time: 13:31:05 Pat Name: ADRIANA ABRAHAM Department: [facility] Room: Gender: M [employer]: [id number] : 1975 Requested By: TATI OCAMPO Order Number: [id number] Reading MD: Ash Gonzales Measurements Intervals [place] Rate: 88 P: 63 IA: 208 QRS: 45 QRSD: 84 T: 169 QT: 396 QTc: 480 Interpretive Statements Sinus rhythm Borderline prolonged IA interval Abnormal T, consider ischemia, lateral leads Compared to ECG 10/04/2024 00:38:34 Possible ischemia now present Sinus tachycardia no longer present T-wave abnormality still present Electronically Signed On 02-02-2025 17:35:07 CDT by Ash Gonzales Please click the below link to view image of tracing.
[2025-02-02 14:05] LABS: INR 0.99 (0.85-1.15); PROTHROMBIN TIME 10.5 SEC (9.6-11.6)
[2025-02-02 14:06] LABS: PARTIAL THROMBOPLASTIN TIME 27.7 SEC (26.3-35.5)
[2025-02-02 14:08] LABS: POTASSIUM 5.7 mmol/L (3.5-5.1)
--- NOTE | 2025-02-02 14:20 | HMCIMG ---
Exam Type: CHEST 1VW Clinical Information: pre-op Comparison: None Findings and impression: Status post median sternotomy. Cardiomegaly. Small left pleural effusion. Right permacath in place. No pneumothorax. Otherwise clear lungs.
--- NOTE | 2025-02-02 14:30 | NUR ---
report received call from lab on rbs. debora wall rn notified. pt did not take insulin this am d/t eating late. according to pt he did not have a big meal. pt instructed to inject insulin as ordered. pt voiced understanding. will repeat fasting blood sugar in am. debora also informed of potassium. level will be repeated in am. pt is on his way to dialysis.
--- NOTE | 2025-02-02 16:32 | NUR ---
report reported cxr to debora wall rn. ok to proceed
--- NOTE | 2025-02-02 16:49 | NUR ---
ekg dr joshi reviewed ekg and compared to prior studies. no changes noted by him so ok to proceed
[2025-02-03] VITALS (13 sets, daily range): BP systolic 118–135; BP diastolic 54–69; PULSE 70–83; RESP 13–18; TEMP 97–97.9
[~2025-02-03] VITALS: Ht 160 cm; Wt 99.6 kg
[~2025-02-03 06:10] MED LIST changes: -AEC81 PO; +ASPI-1443 PO; -CARV6.2579 PO; +CYAN-52 PO; +EMPA10TA PO; +INSU100I35 SQ; -INSU3INS5 SQ; -ISOS30TA92 PO; -Isosorbide Mono 30MG Sr Tab PO; +LOSA25TA41 PO; +METO25 PO; -NIFE-40 PO; -NITR0.4T50 SL; -OLME40TA18 PO; +PANT40TA54 PO; +VITAMIN D2 PO
[2025-02-03] MEDS: DEXTROSE 50%-WATER 50 ML DISP.SYRIN IV ONE (07:27)
[2025-02-03] MEDS ORDERED: DEXTROSE 50%-WATER 50 ML DISP.SYRIN IV ONE (07:30)
[2025-02-03] MEDS: ceFAZolin SODIUM 2 GM VIAL ONE (07:34)
[2025-02-03] MEDS: 0.9% NACL 500ML IV.SOLN 500 ML IV ONE (07:35)
[2025-02-03 07:44] LABS: CREATININE 6.4 mg/dL (0.5-1.3); POTASSIUM 3.6 mmol/L (3.5-5.1)
[2025-02-03] MEDS ORDERED: HEParin-NS 1,000 UNIT/500 ML 500 ML IV ONE (07:56)
[2025-02-03] MEDS ORDERED: proPOFol 10 MG/ML 20ML VIAL IV ONE (08:02)
[2025-02-03] MEDS ORDERED: MIDAZOLAM HCL 1 MG/ML 2ML VIAL ONE (08:02)
[2025-02-03] MEDS ORDERED: FENTanyl CITRate PF 50 MCG/1 ML 2ML VIAL ONE (08:03)
[2025-02-03] MEDS: ceFAZolin SODIUM 1 GM VIAL ONE (08:31)
[2025-02-03] MEDS ORDERED: HEParin 10,000 UNIT/10ML (1,000 UNIT/ML) VIAL ONE (08:32)
[2025-02-03] MEDS ORDERED: phenylEPHRINE HCL 10 MG/ML 1ML VIAL IV ONE (08:37)
--- NOTE | 2025-02-03 09:21 | OP ---
DATE OF PROCEDURE: 02/03/2025 PREOPERATIVE DIAGNOSES: End-stage renal disease, need for dialysis access. POSTOPERATIVE DIAGNOSES: End-stage renal disease, need for dialysis access. PROCEDURE PERFORMED: Left upper extremity brachial artery to cephalic vein arteriovenous fistula creation. SURGEON: Yandy Moreno MD CUSTOM APPLICATOR: Iris Gay. DESCRIPTION OF PROCEDURE: Following anesthesia induction without any complication and appropriate preparation of the operative field, a 5-cm incision was made over the left antecubital fossa. The brachial artery was identified. Proximal and distal control was obtained. Subsequently, the cephalic vein was identified and dissected all the way up to the mid arm. After that, heparin dose was given to the patient. The cephalic vein was ligated distally and cut. After that, an anastomosis between the cephalic vein and the brachial artery was performed using 6-0 Prolene suture. After that, all the clamps were released and there was good blood flow to the distal extremity and good thrill into the fistula side. After that, hemostasis was obtained and the wound was closed in two layers with 3-0 Vicryl and 4-0 Monocryl suture. I was present throughout the entire operation. The patient tolerated the operation well and transferred to the postanesthesia care unit in stable condition. TID: [id number] RECEIPT: [id number]
== END 2025-02-03 10:45 | disposition home or self-care (01) ==
LOC: DAH 06:10
PROVIDERS: ATTEND Thoracic Surgery (Cardiothoracic Vascular Surgery)
DX: E11.22 Type 2 diabetes mellitus with diabetic chronic kidney disease (principal); N18.6 End stage renal disease; I12.0 Hypertensive chronic kidney disease with stage 5 chronic kidney disease or end stage renal disease; E78.5 Hyperlipidemia, unspecified; I25.10 Atherosclerotic heart disease of native coronary artery without angina pectoris; E66.9 Obesity, unspecified; Z99.2 Dependence on renal dialysis; Z98.890 Other specified postprocedural states; Z68.38 Body mass index [BMI] 38.0-38.9, adult; Z98.42 Cataract extraction status, left eye; Z95.1 Presence of aortocoronary bypass graft; Z79.4 Long term (current) use of insulin; Z79.82 Long term (current) use of aspirin; Z79.899 Other long term (current) drug therapy
CPT/HCPCS: 80048 ×2; 85027; 85610; 85730; 86850; 86900; 86901; 36415 ×2; 71045; 93005; 36821; 82948 ×4; A6260; J7040 ×2; J7030; J3010; J0690 ×2; J7070; J1644 ×2; J2250; J2704; J2371; A4649 ×2; C1713 ×2; A4930 ×2; A4215; A4213; A4222; A4221; A4216; A4223 ×2; A4600; J3490